=== PATIENT | male | born 1945 | race Caucasian/White ===

== ENCOUNTER 2016-10-07 09:54 | Emergency (ER) | payer BC, OTHER ==
[~2016-10-07] VITALS: Ht 162.6 cm; Wt 64.4 kg
[~2016-10-07 09:54] MED LIST: CALC667C PO; DIPH25CA37 PO; FINA5TAB4 PO; FLM4 PO; LPR25 PO; LSX40 PO; MULT-506 PO; PRT/40 PO
[2016-10-07 09:57] VITALS: TEMP 36.7; Ht 162.6 cm; Wt 64.4 kg
[2016-10-07 11:02] LABS: BASO % 0.2 %; BASO ABS # 0.01 K/uL (0-0.2); COMPLETE YES; EOS % 0.2 %; IG% 0.2 %; LYMPH % 10.5 %; MEAN CELL VOLUME 89.8 fL (80-100); MEAN CORPUSCULAR HEMOGLOBIN 30.3 pg (25-34); MEAN CORPUSCULAR HGB CONC 33.8 g/dl (32-36); MEAN PLATELET VOLUME 9.9 fL (7.4-10.4); MONO % 6.1 %; NEUT % 82.8 %; PLATELET COUNT 191 K/uL (130-400); RED BLOOD COUNT 4.12 M/uL (4.7-6.1); WHITE BLOOD COUNT 5.73 K/uL (4.8-10.8)
[2016-10-07] MEDS ORDERED: VITA1TAB4 PO (11:03)
[2016-10-07] MEDS ORDERED: [UNRECOGNIZED DRUG - OTHER] PO (11:04)
[2016-10-07] MEDS ORDERED: CALC1CAP36 PO (11:04)
[2016-10-07 11:10] LABS: URINE APPEARANCE CLOUDY (CLEAR); URINE BILIRUBIN NEG (NEG); URINE COLOR YELLOW; URINE NITRITE NEG (NEG); URINE PH 8.5 (4.5-7.5); URINE SPECIFIC GRAVITY 1.012 (1.000-1.030); UROBILINOGEN NEG (NEG)
[2016-10-07 11:22] LABS: MANUAL MICROSCOPIC REQUIRED? NO; REVIEW REQ? NO; SULFASALICYLIC ACID POS (NEG)
[2016-10-07 11:45] LABS: BUN/CREATININE RATIO 13.8 (10-20); CALCIUM 9.4 mg/dl (8.5-10.1); CREATININE 5.3 mg/dl (0.60-1.40); POTASSIUM 5.1 mmol/L (3.5-5.1)
[2016-10-07 11:52] VITALS: BP 143/85; PULSE 70; O2SAT 98
[2016-10-07] MEDS ORDERED: SULF800T23 PO (11:57)
--- NOTE | 2016-10-07 17:41 | EMERGENCY ROOM VISIT NOTE ---
History Report prepared by Ángela: Rebekah Villeda Under the Supervision of: Dr. Jerson Miller M.D. First contact with patient: 10:10 Chief Complaint: CATHETER REPLACEMENT Stated Complaint: CATHETER NEEDS REPLACED History of Present Illness The patient is a 71 year old male who presents to the Emergency Room with complaints of his catheter not draining. He reports that he has had a Gamboa catheter for 2 years because of prostate problems. The patient reports that 3 days ago he was starting to have problems with it. The patient made an appointment to have the catheter changed, but the doctor was on vacation. This morning, he went to the doctor's office, but the nurse was unable to flush out the catheter. The patient reports that he massaged the tube which drained it. The patient states that he has a nephrostomy that he is able to get drainage from. He says the output from that has been normal but he has had no output from the Gamboa. He reports that about a month ago, he encountered the same problem and that there were calcium deposits present. The patient denies fevers and vomiting. He has no abdominal pain other than some discomfort to his bladder. He had a bladder scan at the urologist office this morning and they said there was 800 mL of urine. Source of History: patient Onset: 3 days ago Position: other (global) Symptom Intensity: unable to drain Quality: other (catheter ) Associated Symptoms: No fevers, No vomiting Review of Systems See HPI for pertinent positives & negatives. A total of 10 systems reviewed and were otherwise negative. 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 (7) Urinary retention Family History Cancer Diabetes mellitus FH: COPD (chronic obstructive pulmonary disease) FHx: lung disease Social History Smoking Status: Current Every Day Smoker Drug Use: none Marital Status: Housing Status: lives with significant other Occupation Status: employed Current/Historical Medications Scheduled Calcitriol (Calcitriol), 0.25 MCG PO 3XWK Calcium Acetate (Phosphate Bin (Phoslo 667 Mg), 667 MG PO TIDM Metoprolol Tartrate (Lopressor), 25 MG PO BID Multivitamin (Multivitamin), 1 TAB PO DAILY Sodium Polystyrene Sulfonate (Sps), 60 ML PO DIRECTED Sulfa/Trimethoprim (Bactrim Ds 800MG/160MG), 1 TAB PO BID Tamsulosin HCl (Tamsulosin HCl), 0.4 MG PO QPM Vitamin E (Vitamin E), 400 MG PO DAILY Scheduled PRN Diphenhydramine Hcl (Benadryl), 25 MG PO DAILY PRN for Itching Allergies Coded Allergies: Pantoprazole (Unverified Allergy, Unknown, HIVES, 10/07/16) Physical Exam Vital Signs Date Time Temp Pulse Resp B/P (MAP) Pulse Ox O2 Delivery O2 Flow Rate FiO2 10/07/16 11:52 70 18 143/85 98 Room Air 10/07/16 09:57 36.7 79 17 196/106 96 Room Air Physical Exam Constitutional: Vital signs reviewed. Eyes: Pupils are equal round reactive to light. Conjunctiva are noninjected. ENT: Pharynx is clear without erythema or exudate. Mucous membranes are moist. Neck supple without meningeal signs. Respiratory: Clear to auscultation bilaterally. Breath sounds are equal bilaterally. Cardiovascular: Regular rate and rhythm. No rubs or gallops. GI: Nephrostomy tube on right side, no signs of infection or drainage from stoma , and Gamboa catheter in place without any drainage. Mild suprapubic distension with mild tenderness. Musculoskeletal: No peripheral edema. No lower extremity tenderness. Integumentary: No cyanosis. Neurological: The patient is awake and alert. No focal deficits. Psychiatric: Normal affect. Medical Decision & Procedures Laboratory Results 10/07/16 10:49 Red Blood Count 4.12, Mean Corpuscular Volume 89.8, Mean Corpuscular Hemoglobin 30.3, Mean Corpuscular Hemoglobin Concent 33.8, Mean Platelet Volume 9.9, Neutrophils (%) (Auto) 82.8, Lymphocytes (%) (Auto) 10.5, Monocytes (%) (Auto) 6.1, Eosinophils (%) (Auto) 0.2, Basophils (%) (Auto) 0.2, Neutrophils # (Auto) 4.75, Lymphocytes # (Auto) 0.60, Monocytes # (Auto) 0.35, Eosinophils # (Auto) 0.01, Basophils # (Auto) 0.01 10/07/16 10:49 Test 10/07/16 10:37 10/07/16 10:49 Urine Color YELLOW Urine Appearance CLOUDY (CLEAR) Urine pH 8.5 (4.5-7.5) Urine Specific Henderson 1.012 (1.000-1.030) Urine Protein 2+ (NEG) Urine Glucose (UA) NEG (NEG) Urine Ketones NEG (NEG) Urine Occult Blood 2+ (NEG) Urine Nitrite NEG (NEG) Urine Bilirubin NEG (NEG) Urine Urobilinogen NEG (NEG) Urine Leukocyte Esterase LARGE (NEG) Urine WBC (Auto) >30 /hpf (0-5) Urine RBC (Auto) 10-30 /hpf (0-4) Urine Hyaline Casts (Auto) 1-5 /lpf (0-5) Urine Epithelial Cells (Auto) 10-20 /lpf (0-5) Urine Bacteria (Auto) 2+ (NEG) White Blood Count 5.73 K/uL (4.8-10.8) Red Blood Count 4.12 M/uL (4.7-6.1) Hemoglobin 12.5 g/dL (14.0-18.0) Hematocrit 37.0 % (42-52) Mean Corpuscular Volume 89.8 fL (80-100) Mean Corpuscular Hemoglobin 30.3 pg (25-34) Mean Corpuscular Hemoglobin Concent 33.8 g/dl (32-36) Platelet Count 191 K/uL (130-400) Mean Platelet Volume 9.9 fL (7.4-10.4) Neutrophils (%) (Auto) 82.8 % Lymphocytes (%) (Auto) 10.5 % Monocytes (%) (Auto) 6.1 % Eosinophils (%) (Auto) 0.2 % Basophils (%) (Auto) 0.2 % Neutrophils # (Auto) 4.75 K/uL (1.4-6.5) Lymphocytes # (Auto) 0.60 K/uL (1.2-3.4) Monocytes # (Auto) 0.35 K/uL (0.11-0.59) Eosinophils # (Auto) 0.01 K/uL (0-0.5) Basophils # (Auto) 0.01 K/uL (0-0.2) RDW Standard Deviation 42.7 fL (36.4-46.3) RDW Coefficient of Variation 13.0 % (11.5-14.5) Immature Granulocyte % (Auto) 0.2 % Immature Granulocyte # (Auto) 0.01 K/uL (0.00-0.02) Anion Gap 5.0 mmol/L (3-11) Est Creatinine Clear Calc Drug Dose 10.4 ml/min Estimated GFR () 11.5 Estimated GFR (Non- 9.9 BUN/Creatinine Ratio 13.8 (10-20) Calcium Level 9.4 mg/dl (8.5-10.1) Laboratory results as reviewed by me. ED Course 1015: The patient was evaluated in room B10. A complete history and physical exam was performed. 1156: I discussed the test results with the patient. He says that his Creatinine being at 5.3 is baseline for him. 1210: Upon reevaluation, the patient appeared to have improvement of his symptoms. I discussed tonight's findings with him. He verbalized agreement of the treatment plan. He was discharged home. Medical Decision This is a 71-year-old male who presents with problems with his urinary output. Differential diagnosis includes Gamboa catheter obstruction, renal failure, UTI, dislodgment of Gamboa catheter, electrolyte abnormality. I did perform a limited focused review of portions of the patient's old chart on the electronic medical record. The patient has had no recent pertinent visits to this hospital. I did evaluate the patient as noted above. The patient has had no Gamboa output for several days. He went to his urologist office and the nurse was unable to flush it and so he was sent here. He has had output from his right nephrostomy tube. IV access was established. His Gamb[place] catheter was replaced. He drained over a liter of urine. I did order and personally review the patient's urinalysis as described above. A urine culture was sent. I did order and review the patient's blood work as noted in the electronic medical record. His creatinine is 5.3 which is at his baseline. I did discuss the test results with the patient. He is feeling much better at this time. I did recommend he follow up with his urologist. He does have an appointment in 3 days. He was discharged in good condition. Medication Reconcilliation Current Medication List: was personally reviewed by me Blood Pressure Screening Patient's blood pressure: Elevated blood pressure Impression Primary Impression: Gamboa catheter problem Additional Impressions: UTI (urinary tract infection) Chronic kidney disease Urinary retention Scribe Attestation The scribe's documentation has been prepared under my direct and personally reviewed by me in its entirety. I confirm that the note above accurately reflects all work, treatment, procedures, and medical decision making performed by me. Departure Information Dispostion Home / Self-Care Prescriptions Sulfa/Trimethoprim (Bactrim Ds 800MG/160MG) Tab 1 TAB PO BID, #14 TAB Prov: Jerson Miller M.D. 10/07/16 Referrals Thaddeus Vaughan (PCP) Forms HOME CARE DOCUMENTATION FORM, IMPORTANT VISIT INFORMATION Patient Instructions CAUTI Catheter Associated, Catheter Indwelling Urinary Dc, [facility] Additional Instructions You have been examined and treated today on an emergency basis only. This is not a substitute for, or an effort to provide, complete comprehensive medical care. It is impossible to recognize and treat all injuries or illnesses in a single emergency department visit. It is therefore important that you follow up closely with your urologist next week per your appointment. Return for worsening symptoms or if you develop fever, vomiting, abdominal pain or any other concerning symptoms. Problem Qualifiers Primary Impression: Gamb[place] catheter problem Encounter type: initial encounter Qualified Codes: T83.9XXA - Unspecified complication of genitourinary prosthetic device, implant and graft, initial encounter Additional Impressions: UTI (urinary tract infection) Urinary tract infection type: catheter-associated UTI Indwelling urinary catheter type: indwelling urethral catheter Encounter type: initial encounter Qualified Codes: T83.511A - Infection and inflammatory reaction due to indwelling urethral catheter, initial encounter; N39.0 - Urinary tract infection, site not specified Chronic kidney disease Chronic kidney disease stage: unspecified stage Qualified Codes: N18.9 - Chronic kidney disease, unspecified
== END 2016-10-07 12:28 | disposition home or self-care (01) ==
LOC: C.EDB 09:56
DX: T83.091A Other mechanical complication of indwelling urethral catheter, initial encounter (principal); X58.XXXA Exposure to other specified factors, initial encounter; N39.0 Urinary tract infection, site not specified; R33.9 Retention of urine, unspecified; N18.9 Chronic kidney disease, unspecified; D64.9 Anemia, unspecified; F17.200 Nicotine dependence, unspecified, uncomplicated; Z87.442 Personal history of urinary calculi; Z79.899 Other long term (current) drug therapy; Z88.8 Allergy status to other drugs, medicaments and biological substances; Z80.9 Family history of malignant neoplasm, unspecified; Z83.3 Family history of diabetes mellitus

== ENCOUNTER 2022-02-17 22:52 | Inpatient (IN) ==
[2022-02-17] MEDS ORDERED: ALBUT/IPRATROP 3MG/0.5MG NEB 3 ML VIAL INH STA (23:08)
[2022-02-17 23:32] LABS: Basophils # (auto) 0.04 K/uL (0-0.2); Basophils % (auto) 0.7 %; Hematocrit (blood only) 34.5 % (40.1-51.0); Hemoglobin 11.4 g/dl (14.0-18.0); Immature Granulocytes # (auto) 0.01 K/uL (0.00-0.02); Immature Granulocytes % (auto) 0.2 %; Lymphocytes # (auto) 0.45 K/uL (1.2-3.4); Mean Corpuscular Hemoglobin 33.3 pg (25.0-34.0); Mean Corpuscular Volume 100.9 fL (80.0-100.0); Mean Platelet Volume 10.2 fL (9.4-12.4); Monocytes # (auto) 0.47 K/uL (0.24-0.82); Monocytes % (auto) 8.4 %; Neutrophils # (auto) 4.63 K/uL (1.4-6.5); Neutrophils % (auto) 82.7 %; Platelet Count 159 K/uL (130-400); RDW Coefficient of Variation 14.8 % (11.5-14.5); RDW Standard Deviation 53.2 fL (36.4-46.3); Red Blood Count 3.42 M/uL (4.63-6.08)
--- NOTE | 2022-02-17 23:34 | Emergency Department Note ---
History of Present Illness General Chief complaint: Respiratory Problems Stated complaint: COUGH,DIFFICULTY BREATHING,POTASSIUM HIGH Time Seen by Provider: 02/17/22 23:00 History of Present Illness This 76-year-old on dialysis Monday presents to the ER complaining of increasing shortness of breath and missed dialysis today Location: Chest Quality: Hard to breathe Severity: Moderate Duration: Past day Timing: Started yesterday Context: Symptoms got worse and patient came in Modifying factors: better with rest; worse with activity No history of CHF. Patient denies chest pain, fevers, flulike illness. No problems with dialysis on Monday. He was told his potassium was high and was advised to take his potassium losing medication Home Medications Medication Instructions Recorded Confirmed Type calcium acetate(phosphat bind) 667 667 mg PO TIDM 03/02/18 02/18/22 History mg capsule cholecalciferol (vitamin D3) 50 2,000 unit PO DAILY 03/02/18 02/17/22 History mcg (2,000 unit) capsule (Vitamin D3) atenolol 50 mg tablet 50 mg PO HS 03/16/18 02/17/22 History amlodipine 5 mg tablet 5 mg PO QAM 02/17/22 02/17/22 History citalopram 10 mg tablet 10 mg PO HS 02/17/22 02/17/22 History cholecalciferol (vitamin D3) 50 50 mcg PO DAILY 02/18/22 02/18/22 History mcg (2,000 unit) tablet (Vitamin D3) epoetin beta, methoxy peg 100 100 mcg IV .SELECTED DATES 02/18/22 02/18/22 History mcg/0.3 mL injection syringe (Mircera) ferric pyrophosphate citrate 27.2 See Rx Instructions .Route .COMPLEX 02/18/22 02/18/22 History mg iron/5 mL soln for hemodialysate (Triferic) leuprolide (3 month) 22.5 mg (3 22.5 mg IM . EVERY 3 MONTHS 02/18/22 02/18/22 History month) intramuscular syringe kit (Lupron Depot) norflurane-pentafluoropropane 1 spray topical UD 02/18/22 02/18/22 History topical spray paricalcitol 2 mcg/mL intravenous See Rx Instructions .Route .COMPLEX 02/18/22 02/18/22 History solution (Zemplar) protein supplement See Rx Instructions .Route .COMPLEX 02/18/22 02/18/22 History Allergies Allergy/AdvReac Type Severity Reaction Status Date / Time pantoprazole Allergy Unknown HIVES Verified 02/18/22 01:43 Past Med/Surg History Medical History (Updated 02/18/22 @ 02:17 by Zofia Nobles PA-C) AV fistula left arm Bladder stones Chronic anemia Chronic indwelling [place] catheter CKD (chronic kidney disease), stage V DIALYSIS 3 X WEEK ELENA PALMA (//MON) VIA PERMA CATH HTN (hypertension) Was treated for hypertensive urgency at [facility] 11/2017 Hyperkalemia On a K restricted diet Obstruction of nephrostomy tube Admitted for this 11/2017 along with hypertensive urgency Permanent central venous catheter in place Prostate cancer Currently in remission. On Leupron injections. 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 Beliefs That Will Affect Care: None marital status: Current Living Situation: Spouse Feels Safe at Home: Yes Assistive Devices: Denture - Upper, Denture - Lower and Glasses Review of Systems A total of 10 systems reviewed and were otherwise negative Physical Exam Vital Signs Vital Signs - 24 hr 02/17/22 22:55 02/17/22 23:33 02/17/22 23:33 Temperature 36.6 C Temperature Source Temporal Artery Scan Pulse Rate 68 Respiratory Rate 20 Respiratory Effort / Characteristics Non-Labored Spontaneous Respiratory Depth Normal Blood Pressure 162/78 H Blood Pressure Mean 106 Pulse Oximetry 90 94 Oxygen Delivery Method Room Air Nebulizer Room Air Oxygen Flow Rate Sepsis Recent Fever Within 48 Hours No Sepsis New/Unexplained Change in Mental Status N/A Sepsis Action Taken by Nursing No Action Required 02/18/22 00:57 02/18/22 02:00 Temperature Temperature Source Pulse Rate 60 62 Respiratory Rate 18 20 Respiratory Effort / Characteristics Respiratory Depth Blood Pressure 129/66 153/77 H Blood Pressure Mean 87 102 Pulse Oximetry 97 98 Oxygen Delivery Method Nasal Cannula Nasal Cannula Oxygen Flow Rate 2 2 Sepsis Recent Fever Within 48 Hours Sepsis New/Unexplained Change in Mental Status Sepsis Action Taken by Nursing VITALS: Vitals are noted on the nurse's note and reviewed by myself. Vital signs low O2 sats and patient was placed on nasal cannula and this improved. GENERAL: Elderly male who is working to breathe, nondiaphoretic SKIN: The skin was without rashes, erythema, or bruising. There is no tenting of the skin. Capillary reflex less than 2 seconds. HEAD: Normocephalic atraumatic. EARS: External auditory canals clear, EYES: Pupils equal round and reactive to light and accommodation. Conjunctivae without injection, sclerae without icterus. Extraocular movements intact. NOSE: Patent, turbinates without inflammation or discharge. MOUTH: Mucous membranes moist. Pharynx without erythema or exudate. Uvula midline. Airway patent. Tongue does not deviate. NECK: Supple without nuchal rigidity. No lymphadenopathy. No thyromegaly. C ervical spine is nontender. No JVD. HEART: Regular rate and rhythm LUNGS: Diffuse inspiratory and end expiratory wheezes. No retractions or accessory muscle use. ABDOMEN: Positive bowel sounds x 4. Normal tympanic percussion. Soft, nontender, without masses or organomegaly. Otero sign negative. No guarding or rebound tenderness. No CVA tenderness MUSCULOSKELETAL: No muscle atrophy, erythema, noted. NEURO: Patient was alert and oriented to person place and time. Normal sensation to light and sharp touch. No focal neurological deficits. Course Administered Medications Discontinued Medications Albuterol (Albut/Ipratrop 3mg/0.5mg Neb 3 Ml Vial) 3 ml INH NOW STA Stop: 02/17/22 23:09 Last Admin: 02/17/22 23:15 Dose: 3 ml Documented By: FARHAD Medical Decision Making Medical Records Attestation: I reviewed the patient's medical records. Home Medications Current Medication List: was personally reviewed by me Laboratory Data Attestation: I reviewed the patient's lab results. Result diagrams: 02/17/22 23:17 02/17/22 23:17 Lab Results 02/17/22 02/17/22 02/17/22 Range/Units 23:17 23:17 23:17 WBC 5.60 (4.8-10.8) K/ul RBC 3.42 L (4.63-6.08) M/uL Hgb 11.4 L (14.0-18.0) g/dl Hct 34.5 L (40.1-51.0) % MCV 100.9 H (80.0-100.0) fL MCH 33.3 (25.0-34.0) pg MCHC 33.0 (32.0-36.0) g/dL RDW Std Deviation 53.2 H (36.4-46.3) fL RDW Coeff of Stayc 14.8 H (11.5-14.5) % Plt Count 159 (130-400) K/uL MPV 10.2 (9.4-12.4) fL Immature Gran % (Auto) 0.2 % Neut % (Auto) 82.7 % Lymph % (Auto) 8.0 % Ballard % (Auto) 8.4 % Eos % (Auto) 0.0 % Baso % (Auto) 0.7 % Neut # (Auto) 4.63 (1.4-6.5) K/uL Lymph # (Auto) 0.45 L (1.2-3.4) K/uL Ballard # (Auto) 0.47 (0.24-0.82) K/uL Eos # (Auto) 0.00 (0-0.50) K/uL Baso # (Auto) 0.04 (0-0.2) K/uL Immature Gran # (Auto) 0.01 (0.00-0.02) K/uL VBG pH (7.36-7.41) VBG pCO2 (38-50) mmHg VBG pO2 mmHg VBG HCO3 mmol/L VBG O2 Saturation % VBG Base Excess mEq/L Sodium 134 L (136-145) mmol/L Potassium 5.3 H (3.5-5.1) mmol/L Chloride 101 (98-107) mmol/L Carbon Dioxide 18 L (21-32) mmol/L Anion Gap 15 H (3-11) BUN 58 H (6-23) mg/dl Creatinine 8.34 H* (0.6-1.4) mg/dl Est Cr Clr Drug Dosing 6.1 ml/min Est GFR ( Amer) 6.4 ml/min Est GFR (Non-Af Amer) 5.5 ml/min BUN/Creatinine Ratio 7.0 L (10-20) Glucose 112 H (70-99(Fasting)) mg/dl Calcium 9.0 (8.5-10.1) mg/dl Magnesium 2.2 (1.7-2.4) mg/dl Total Bilirubin 0.4 (0.2-1.0) mg/dl AST 20 (13-39) U/L ALT 16 (7-52) U/L Alkaline Phosphatase 66 (34-104) U/L Troponin I High Sens 28.6 H (0-20) pg/ml B-Natriuretic Peptide (0-100) pg/ml Total Protein 7.2 (6.0-8.3) gm/dl Albumin 3.7 (3.4-5.0) gm/dl Globulin 3.5 (2.5-4.0) gm/dl Albumin/Globulin Ratio 1.1 (0.9-2) SARS-CoV-2, RNA, NAAT NEGATIVE (NEGATIVE) 02/17/22 02/17/22 02/17/22 Range/Units 23:17 23:58 23:59 WBC (4.8-10.8) K/ul RBC (4.63-6.08) M/uL Hgb (14.0-18.0) g/dl Hct (40.1-51.0) % MCV (80.0-100.0) fL MCH (25.0-34.0) pg MCHC (32.0-36.0) g/dL RDW Std Deviation (36.4-46.3) fL RDW Coeff of Stacy (11.5-14.5) % Plt Count (130-400) K/uL MPV (9.4-12.4) fL Immature Gran % (Auto) % Neut % (Auto) % Lymph % (Auto) % Ballard % (Auto) % Eos % (Auto) % Baso % (Auto) % Neut # (Auto) (1.4-6.5) K/uL Lymph # (Auto) (1.2-3.4) K/uL Ballard # (Auto) (0.24-0.82) K/uL Eos # (Auto) (0-0.50) K/uL Baso # (Auto) (0-0.2) K/uL Immature Gran # (Auto) (0.00-0.02) K/uL VBG pH 7.35 L (7.36-7.41) VBG pCO2 38 (38-50) mmHg VBG pO2 33 mmHg VBG HCO3 21 mmol/L VBG O2 Saturation < 60.0 % VBG Base Excess -4.2 mEq/L Sodium (136-145) mmol/L Potassium (3.5-5.1) mmol/L Chloride (98-107) mmol/L Carbon Dioxide (21-32) mmol/L Anion Gap (3-11) BUN (6-23) mg/dl Creatinine (0.6-1.4) mg/dl Est Cr Clr Drug Dosing ml/min Est GFR ( Amer) ml/min Est GFR (Non-Af Amer) ml/min BUN/Creatinine Ratio (10-20) Glucose (70-99(Fasting)) mg/dl Calcium (8.5-10.1) mg/dl Magnesium (1.7-2.4) mg/dl Total Bilirubin (0.2-1.0) mg/dl AST (13-39) U/L ALT (7-52) U/L Alkaline Phosphatase (34-104) U/L Troponin I High Sens 26.9 H (0-20) pg/ml B-Natriuretic Peptide 2935 H (0-100) pg/ml Total Protein (6.0-8.3) gm/dl Albumin (3.4-5.0) gm/dl Globulin (2.5-4.0) gm/dl Albumin/Globulin Ratio (0.9-2) SARS-CoV-2, RNA, NAAT (NEGATIVE) Imaging Data Attestation: I personally reviewed and interpreted this imaging study as follows: MDM Narrative Prior records/ancillary studies reviewed. Triage Nursing notes reviewed. Additional history obtained from the family. The patient's history was concerning for respiratory difficulties. Differential diagnosis: Etiologies such as infections, reactive airway disease, pneumonia, pneumothorax, COPD, CHF, cardiac ischemia, pulmonary embolism, musculoskeletal, gastrointestinal, as well as others were entertained. Physical examination: As above. ER treatment provided: An order was placed for continuous cardiac monitoring. The monitor shows a rate of 60-100 with a sinus rhythm. DuoNeb On reassessment the patient felt better. Diagnostic interpretation by me: The electrocardiogram was ordered for dyspnea EKG: Normal sinus, poor baseline, no acute ST-T wave changes. Impression normal sinus rhythm poor baseline interpreted by myself I think arrhythmia is unlikely. EKG shows normal sinus rhythm with no interval abnormalities such as QT prolongation or WPW. There are no findings to suggest Brugada syndrome. Cardiac monitoring in the emergency department reveals no tachycardic or bradycardic dysrhythmia. Hypertrophic cardiomyopathy was considered but there are no clear historical elements pointing toward this. EKG is not suggestive. The QRS voltage is not extremely large and there are no duong ggestive Q waves. The labs revealed elevated creatinine and patient is overdue for dialysis Imaging studies: Chest x-ray with pleural effusion per my interpretation. Patient: BEE GOLDBERG (Male) : 41 Status: ER Date: 02/18/22 01:53 Room #: History: PT. IS HAVING INCREASED SOB; DIFFICULTY BREATHING; COUGH WELL Slices: [phone] Priors: Tech: Anette Dunn @ [phone] Exams: CT CHEST Without Contrast Contrast: Accession Numbers: [id number] Referring Physician: REFERRED SELF Preliminary Findings Only See Final Report For Complete Findings CT CHEST Without Contrast: Comparison to April 25, 2014. There are mild to moderate emphysematous changes in the lungs bilaterally, greatest in the upper lobes. There is a 3 cm right pleural effusion with mild adjacent compressive atelectasis in the right liver lobe. No pneumothorax is seen. The thoracic aorta is mildly calcified but nondilated. This is a noncontrast study. The heart is mildly enlarged. Severe coronary calcification is present. No per icardial effusion is seen. Calcified granuloma in the right upper lobe and calcified right hilar lymph node. No mediastinal or axillary lymph at a the or mass is identified. Moderate multilevel degenerative changes are seen throughout the spine with ankylosis of the thoracic spine. No acute fracture is seen. Radiologist: Elliot Be MD Consultation: A consultation was placed with the hospitalist. The case was discussed and diagnostics were reviewed. The patient was evaluated in the ER for further treatment. This appears to be consistent with Right PE, COPD with fluid overload who is due for dialysis. Patient felt slightly better after being medicated as above. Medicine is consulted. He will be admitted. By the evaluation outlined above emergent etiologies such as pulmonary embolism, reactive airway disease, pneumonia, pneumothorax, musculoskeletal, serious bacterial infections, as well as others were deemed relatively unlikely. The pt informed about the findings as listed above. All questions were answered and pleased with the treatment. The chart was completed utilizing [employer] Speech voice recognition software. Grammatical errors, random word insertions, pronoun errors, and incomplete sentences are an occassional consequence of this system due to software limitations, ambient noise, and hardware issues. Any formal questions or concerns about the content, text, or information contained within the body of this dictation should be directly addressed to the physician web press operator assistant for clarification. Impression & Plan Pleural effusion, Acute dyspnea, Hypoxemia, ESRD (end stage renal disease) on dialysis, Anemia Discharge Plan Visit Data Chief Complaint: Respiratory Problems Stated Complaint: COUGH,DIFFICULTY BREATHING,POTASSIUM HIGH ED Provider: Jewels Peterson ED Midlevel Provider: Zofia Nobles Discharge Problem: Pleural effusion, Acute dyspnea, Hypoxemia, ESRD (end stage renal disease) on dialysis, Anemia Patient Disposition: Admitted As Inpatient Condition: Fair Forms Stand Alone Forms: [facility] Prescriptions Prescriptions: No Action calcium acetate(phosphat bind) 667 mg Capsule 667 mg PO TIDM cholecalciferol (vitamin D3) [Vitamin D3] 2,000 unit Capsule 2,000 unit PO DAILY atenolol 50 mg Tablet 50 mg PO HS citalopram 10 mg tablet 10 mg PO HS amlodipine 5 mg tablet 5 mg PO QAM paricalcitol [Zemplar] 2 mcg/mL Solution See Rx Instructions .ROUTE .COMPLEX Rx Instructions: 2.5 mcg intravenously 1st,2nd,3rd scheduled treatment Lupron Depot (3 month) 22.5 mg Syringe Kit 22.5 mg IM . EVERY 3 MONTHS cholecalciferol (vitamin D3) [Vitamin D3] 50 mcg (2,000 unit) Tablet 50 mcg PO DAILY Mircera 100 mcg/0.3 mL Syringe 100 mcg IV .SELECTED DATES Rx Instructions: IV PUSH MED Triferic 27.2 mg iron/5 mL Solution See Rx Instructions .ROUTE .COMPLEX Rx Instructions: given in Center 110mcg/lbc intravenous every treatment Liquacel Liquid See Rx Instructions .ROUTE .COMPLEX Rx Instructions: 1 ounce grape--give 30 cc orally weekly on 1st treatment 1 ounce peach jamil--give 30 cc orally weekly on 2nd scheduled treatment 1 ounce watermelon--give 30cc orally weekly on 3rd scheduled rreatment Pain Ease Aerosol,Ideal 1 spray topical UD Rx Instructions: done in Center spray 1st,2nd,3rd scheduled treatment Referrals Referrals: Edgar Gamble MD [Primary Care Provider] -
[2022-02-18] LABS: Troponin I High Sensitivity 28.6 pg/ml (0-20)
[2022-02-18 00:14] LABS: Base Excess VBG -4.2 mEq/L; HCO3 VBG 21 mmol/L; Oxygen Saturation VBG < 60.0 %; PCO2 VBG 38 mmHg (38-50); PO2 VBG 33 mmHg; pH VBG 7.35 (7.36-7.41)
[2022-02-18 00:26] LABS: Albumin Globulin Ratio 1.1 (0.9-2); Albumin Level 3.7 gm/dl (3.4-5.0); Bilirubin,Total 0.4 mg/dl (0.2-1.0); Creatinine Clr Calc Pharmacy 6.1 ml/min; Est GFR (African American) 6.4 ml/min; Est GFR (Non-African American) 5.5 ml/min; Globulin 3.5 gm/dl (2.5-4.0); Magnesium 2.2 mg/dl (1.7-2.4); Potassium 5.3 mmol/L (3.5-5.1); Total Protein 7.2 gm/dl (6.0-8.3)
[2022-02-18] MEDS ORDERED: POLYETHYLENE (MIRALAX) 17 GM PACK PO PRN (03:52)
[2022-02-18] MEDS ORDERED: ALBUT/IPRATROP 3MG/0.5MG NEB 3 ML VIAL NEB PRN (03:52)
[2022-02-18] MEDS ORDERED: ACETAMINOPHEN 325 MG TAB PO PRN (03:52)
[2022-02-18] MEDS ORDERED: NITROGLYCERIN SL 0.4 MG/TAB TAB SL PRN (03:52)
[2022-02-18] MEDS: DOXYCYCLINE HYCLATE 100 MG CAP PO SCH ×3 (04:23→21:19)
--- NOTE | 2022-02-18 04:45 | History and Physical Report ---
DATE OF ADMISSION: 02/18/2022 CHIEF COMPLAINT: Shortness of breath. HISTORY OF PRESENT ILLNESS: A 76-year-old male with past medical history significant for hypertension, end-stage renal disease on dialysis, history of right hydronephrosis, history of bladder stones, history of chronic anemia, ongoing tobacco use, smokes 2 packs of cigarettes in a week, history of prostate cancer, on Lupron shots. He has a percutaneous drain on the right flank. He drains Urine whenever we feel the pressure building up, usually every couple of days. He also micturates little..He missed his dialysis today because of bad weather.Lately his potassium was going up, so he was told to take medcine today to bring his potassium down. He had an episode of diarrhea. He comes in because of shortness of breath. The patient lives with his . As per daughter, he is having shortness of breath on and off since last summer, but last 1 week, it got progressively worse. The patient says since last 2 days, he has become more short of breath and coughing and bringing up whitish phlegm. Denies any fever or chills. No chest pain, no headache, no back pain, no leg pains. Vision is okay. Runny nose in the mornings. Somewhat hard of hearing. Appetite is down for the last 1 week because of family tragedy as per daughter. No difficulty swallowing. No nausea. No bloody stools or black stools. No swelling in the legs. Ambulates without any support. ALLERGIES: PROTONIX. PAST MEDICAL HISTORY: As mentioned above. PAST SURGICAL HISTORY: Right Kidney percutaneous drainage catheter, cystoscopy. MEDICATIONS: The patient is on amlodipine 5 mg p.o. a.m., atenolol 50 mg p.o. at bedtime, calcium acetate 667 mg p.o. t.i.d. with meals, vitamin D 2000 units p.o. daily, citalopram 10 mg p.o. at bedtime, Epoetin as directed, ferric pyrophosphate as directed, Lupron shots every 3 months, FAMILY HISTORY: Significant for father had stomach cancer. Sister has lung cancer. Sister has breast cancer. Sister has hypertension. Father had COPD. SOCIAL HISTORY: , lives with his . Smokes about three cigarettes a day. No alcohol, no drug use. REVIEW OF SYSTEMS: As per HPI. Rest of the review of systems is negative. PHYSICAL EXAMINATION: GENERAL: The patient is of moderate build, not in acute distress. VITAL SIGNS: Temperature 36.6, pulse 60, respiratory rate 18, blood pressure 129/66, oxygen 97% on 2 liters. HEENT: Pupils equal, round and reactive to light. Oral mucosa moist. NECK: No JVD, no neck masses. CARDIOVASCULAR: S1 and S2 heard. Regular rate and rhythm. No murmur, no gallop. RESPIRATORY SYSTEM: Normal AP diameter. Diminished bilateral breath sounds. No obvious wheezing or crackles heard. ABDOMEN: Soft, bowel sounds present, nontender, no distention. CENTRAL NERVOUS SYSTEM: Cranial nerves II-XII grossly intact, nonfocal. EXTREMITIES: No edema, no erythema. LABORATORY DATA: WBC 5.6, hemoglobin 11.4, hematocrit 34.5, platelets 159. Venous blood gas: pH is 7.35, pCO2 of 38. Sodium 134, potassium 5.3, chloride 101, bicarbonate 18, BUN 58, creatinine 8.3, serum glucose 112, calcium 9, magnesium 2.2, total bilirubin 0.4, AST 20, ALT 16, alkaline phosphatase 66. Troponin I high sensitivity 26.9. BNP 2900. SARS-CoV-2 rapid test negative. IMAGING DATA: Chest x-ray, possible mild right pleural effusion. EKG: Normal sinus rhythm at 64, left ventricular hypertrophy, nonspecific T- wave abnormalities. ASSESSMENT AND PLAN: This is a 76-year-old male who presents with shortness of breath. 1. Shortness of breath, ongoing for some time, but got progressively worse lately. Smokes three cigarettes a day. Has some cough with whitish phlegm. Chest x-ray, possible mild right pleural effusion, we will get a CT chest to get better picture. We will start him on nebs around the clock and p.r.n., p.o. doxycycline for possible bronchitis. We will also get echocardiogram to rule out for CHF. Missed dialysis today. We will get his dialysis in the morning, monitor in the hospital. 2. End-stage renal disease, on hemodialysis. Missed dialysis today, nephrology consult for possible dialysis in the a.m. 3. Hyperkalemia, he says he took the medicine today for that. His potassium is 5.3 here today, we will follow the repeat potassium in the a.m. Plan for dialysis in the a.m. 4. Mild elevation of troponin, mostly from renal disease. Follow serial enzymes and echocardiogram. 5. History of prostate cancer, on Lupron shots. 6. History of depression, citalopram. 7. History of hypertension, on atenolol and amlodipine, We will monitor the blood pressure. 8. Deep venous thrombosis prophylaxis: Heparin subcutaneously. DISPOSITION: Closely monitor in the med tele. PT/OT prior to discharge. Social service to help with discharge planning. Job ID: [id number] [facility] MEDICAL CENTERJuan Carlos
[2022-02-18 05:30] LABS: Basophils # (auto) 0.02 K/uL (0-0.2); Basophils % (auto) 0.5 %; Hematocrit (blood only) 32.4 % (40.1-51.0); Hemoglobin 10.5 g/dl (14.0-18.0); Immature Granulocytes # (auto) 0.01 K/uL (0.00-0.02); Immature Granulocytes % (auto) 0.3 %; Lymphocytes # (auto) 0.39 K/uL (1.2-3.4); Lymphocytes % (auto) 9.8 %; Mean Corpuscular Hemoglobin 33.2 pg (25.0-34.0); Mean Corpuscular Hgb Conc 32.4 g/dL (32.0-36.0); Mean Corpuscular Volume 102.5 fL (80.0-100.0); Mean Platelet Volume 10.2 fL (9.4-12.4); Monocytes # (auto) 0.29 K/uL (0.24-0.82); Monocytes % (auto) 7.3 %; Neutrophils # (auto) 3.29 K/uL (1.4-6.5); Neutrophils % (auto) 82.1 %; Platelet Count 145 K/uL (130-400); RDW Coefficient of Variation 14.8 % (11.5-14.5); RDW Standard Deviation 55.3 fL (36.4-46.3); Red Blood Count 3.16 M/uL (4.63-6.08)
[2022-02-18 05:36] LABS: Troponin I High Sensitivity 27.8 pg/ml (0-20)
[2022-02-18 05:54] LABS: BUN Creatinine Ratio 7.3 (10-20); Calcium 8.6 mg/dl (8.5-10.1); Est GFR (African American) 6.2 ml/min; Est GFR (Non-African American) 5.4 ml/min; Magnesium 2.2 mg/dl (1.7-2.4); Potassium 5.3 mmol/L (3.5-5.1)
[2022-02-18] MEDS: ALBUT/IPRATROP 3MG/0.5MG NEB 3 ML VIAL NEB SCH ×4 (07:01→19:58)
--- NOTE | 2022-02-18 08:11 | CT Scan Report ---
CT OF THE CHEST WITHOUT IV CONTRAST CLINICAL HISTORY: Shortness of breath, hx of smoking COMPARISON STUDY: Chest CT April 25, 2014 and chest radiograph February 17, 2022. CT DOSE: 194.02 mGy.cm TECHNIQUE: Axial images of the chest were obtained without IV contrast. Images were reviewed in the axial, sagittal, and coronal planes. IV contrast was not administered for this examination. Automat ed exposure control was utilized for the study. A dose lowering technique was utilized adhering to t he principles of ALARA. FINDINGS: A [id number] right pleural effusion is present. There is no pneumothorax. Clustered tree-in-bud nodules within the superior segment of the left lower lobe are present. Subpleural right lower lobe opacity favors atelectasis. Moderate emphysema is noted. There is evidence for a previous granulomatous process with calcified granulomas within the right upper lobe and calcified mediastina l and right hilar lymph nodes. A 4 mm perifissural right middle lobe nodule is unchanged since CT of June 23, 2014. This is benign. Note is made of moderate cardiomegaly and coronary artery calcificati on. Extensive anterior osteophytosis of the thoracic spine is noted. No pathologically enlarged thora cic lymph nodes are present. There are calcified cannula was within the spleen. IMPRESSION: 1. Small to moderate right pleural effusion. Subpleural right lower lobe opacity favors atelectasis. 2. Cluster tree-in-bud nodules within the superior segment of the left lower lobe which favor a mild infectious process such as bronchiolitis. 3. Emphysema. 4. Moderate cardiomegaly and coronary artery calcification. 5. No suspicious pulmonary nodules. ACT 112: Negative or not required by law. Electronically signed by: Harvey Johnson M.D. 02/18/2022 8:09 AM
[2022-02-18] MEDS: NEPHROCAPS PO SCH (08:26)
[2022-02-18] MEDS: CHOLECALCIFEROL 1,000 UNITS 25 MCG TAB PO SCH (08:26)
[2022-02-18] MEDS: CALCIUM ACETATE 667 MG CAP/TAB PO SCH ×3 (08:26→17:26)
[2022-02-18] MEDS: amLODIPine BESYLATE 5 MG TAB PO SCH (08:26)
[2022-02-18] MEDS: HEPARIN SOD 5,000 UNIT/0.5 ML VIAL SQ SCH ×2 (08:29→20:39)
--- NOTE | 2022-02-18 08:43 | XRay Report ---
XR chest 1V portable HISTORY: Dyspnea COMPARISON: Chest 12/09/2017. FINDINGS: No pneumothorax. Small right pleural effusion is noted. The heart is mildly enlarged. There is mild central pulmonary vascular congestion without overt edema. Hazy appearance to the right lung base may represent atelectasis from the pleural effusion. IMPRESSION: 1. Small right pleural effusion with hazy right basilar densities which may represent atelectasis fro m the pleural effusion or a pneumonia. 2. Cardiomegaly and mild congestive change. ACT 112: Negative or not required by law. Electronically signed by: Carlos Jean-Baptiste M.D. 02/18/2022 8:41 AM
[2022-02-18] MEDS ORDERED: EPOETIN ALFA 4,000 UNIT/ML VIAL IV ONE ×2 (09:05→11:00)
[2022-02-18] MEDS ORDERED: SODIUM CHLORIDE 0.9% 1000ML 1,000 ML IV PRN (09:05)
[2022-02-18] MEDS ORDERED: HEPARIN SOD (PORCINE) 1000 UNIT/ML IV ONE (09:05)
--- NOTE | 2022-02-18 09:13 | Nephrology Consultation ---
Date of Consultation February 18, 2022 Assessment & Plan (1) ESRD (end stage renal disease) on dialysis: HD today 3.5 hr on 2K bath using OP heparin (2K bolus then no mntnc) using AVF; goal 3L UF keeping SBP > 100 as tolerated next HD tomorrow as IP or OP (2) Anemia: on lupron >> but had CARLO this month; will give epo 4K units on tx IF SBOP< 180 consistently (he's been running above this) (3) Nephrostomy status: no reported issues (4) Hypoxia: on 2L and dyspneic, sats dropping if put on RA >> may all relate to volume; defer to primary service for monitoring and further w/u History of Present Illness Reason for Consultation: ESRD on HD, missed [place] Requesting Physician: Dr Abebe Attending Physician: Artemio Moore MD History of Present Illness 76 y/o M whom I'm asked to see for dialysis needs was admitted overnight w/ progressive dyspnea. PMH includes ESRD on TRS HD at [place] under Dr Ramos's care, HTN, R hydronephrosis w/ nephrostomy and bladder stones, active tobacco abuse (1 Pack every 4 days), prostate CA on lupron. he also has chronic dyspnea which worsened in the past week w/ increasing productive cough. He missed 02/17 HD d/t bad weather. He also endorses some pscyhosocial stres sors > being asked to be POA for 25 y/o nephew who just had a stroke; pt not comfortable/able to meet this request. Denies current worsening sob or chest pain or DUNLAP or focal weakness/numbness; states his cough worsened about a week ago and is actually better than it was and is only occasional productive of whitish sputum. No changes in or concern about nephrostomy output. Allergies Allergy/AdvReac Type Severity Reaction Status Date / Time pantoprazole Allergy Unknown HIVES Verified 02/18/22 01:43 Home Medications Medication Instructions Recorded Confirmed Type calcium acetate(phosphat bind) 667 667 mg PO TIDM 03/02/18 02/18/22 History mg capsule cholecalciferol (vitamin D3) 50 2,000 unit PO DAILY 03/02/18 02/17/22 History mcg (2,000 unit) capsule (Vitamin D3) atenolol 50 mg tablet 50 mg PO HS 03/16/18 02/17/22 History amlodipine 5 mg tablet 5 mg PO QAM 02/17/22 02/17/22 History citalopram 10 mg tablet 10 mg PO HS 02/17/22 02/17/22 History cholecalciferol (vitamin D3) 50 50 mcg PO DAILY 02/18/22 02/18/22 History mcg (2,000 unit) tablet (Vitamin D3) epoetin beta, methoxy peg 100 100 mcg IV .SELECTED DATES 02/18/22 02/18/22 History mcg/0.3 mL injection syringe (Mircera) ferric pyrophosphate citrate 27.2 See Rx Instructions .Route .COMPLEX 02/18/22 02/18/22 History mg iron/5 mL soln for hemodialysate (Triferic) leuprolide (3 month) 22.5 mg (3 22.5 mg IM . EVERY 3 MONTHS 02/18/22 02/18/22 History month) intramuscular syringe kit (Lupron Depot) norflurane-pentafluoropropane 1 spray topical UD 02/18/22 02/18/22 History topical spray paricalcitol 2 mcg/mL intravenous See Rx Instructions .Route .COMPLEX 02/18/22 02/18/22 History solution (Zemplar) protein supplement See Rx Instructions .Route .COMPLEX 02/18/22 02/18/22 History Patient History Medical History (Updated 02/18/22 @ 11:25 by Emilee Souza MD, PhD) AV fistula left arm Bladder stones Chronic anemia Chronic indwelling [place] catheter CKD (chronic kidney disease), stage V DIALYSIS 3 X WEEK ELENA PALMA (//MON) VIA PERMA CATH HTN (hypertension) Was treated for hypertensive urgency at [facility] 11/2017 Hyperkalemia On a K restricted diet Obstruction of nephrostomy tube Admitted for this 11/2017 along with hypertensive urgency Permanent central venous catheter in place Prostate cancer Currently in remission. On Leupron injections. Tobacco use Urinary retention Surgical History History of surgery PLACEMENT OF NEPHROSTOMY TUBE Family History Other Breast cancer Lung cancer No pertinent family history Stomach cancer Social History Smoking Status: Never smoker Cigarettes Per Day: 2 packs a week; Second Hand Exposure: No; Hx Alcohol Use: No Hx Substance Use: No Preferred Language: Malay Communication Ability: Effective Visual Impairment: No Limitations Wearing Apparel Folder Required: No Beliefs That Will Affect Care: None marital status: Current Living Situation: Spouse Other Information That Helps Us Care for You: No Feels Safe at Home: Yes Safety Concerns: Feels Safe At This Time Assistive Devices: Denture - Upper, Denture - Lower and Glasses Review of Systems Review of Systems: All systems reviewed & are unremarkable except as noted in Subjective Physical Exam Constitutional: well developed, well nourished, average body habitus and cooperative; no acute distress Eyes: EOM intact bilaterally ENMT: Ears: no external ear abnormality Nose: no external nose abnormality Mouth: + dry oral mucous membranes Neck: no nuchal rigidity Respiratory: + labored breathing (slight, carri w/ speech), + cough (frequent dry), able to speak in complete sentences (but dypsneic w/ doing so) and + paradoxical thoraco-abdominal movement Auscultation: + diminished lung sounds Cardiovascular: Rate/Rhythm: regular rate and regular rhythm Extremities: + AV fistula; no edema Gastrointestinal (Abdomen): Inspection/Auscultation: normal bowel sounds Percussion/Palpation: abdomen soft; abdomen nontender Musculoskeletal: Extremities: strength 5/5 throughout Skin: no rashes, warm and dry Neurologic: uribe, fluent speech, no tremor Genitourinary: R nephrostomy present Results & Data ([facility]) Vital Signs (Past 12 Hours) Vital Signs Temp Pulse Pulse Resp BP BP Pulse Ox 02/18/22 09:00 66 26 H 176/78 H 96 02/18/22 08:00 66 24 158/68 H 96 02/18/22 08:00 158/68 H 02/18/22 07:00 59 L 20 169/82 H 99 02/18/22 06:00 58 L 22 162/81 H 100 02/18/22 05:00 59 L 22 156/77 H 98 02/18/22 04:00 60 20 151/78 H 97 02/18/22 03:00 62 22 145/72 H 99 02/18/22 03:00 62 22 145/72 H 99 02/18/22 03:54 02/18/22 02:00 62 20 153/77 H 98 02/18/22 00:57 60 18 129/66 97 02/17/22 23:33 94 02/17/22 23:33 02/17/22 22:55 36.6 C 68 20 162/78 H 90 Pulse Ox O2 Del Method O2 Del Method O2 Flow Rate O2 Flow Rate 02/18/22 09:00 Nasal Cannula 2 02/18/22 08:00 Nasal Cannula 2 02/18/22 08:00 02/18/22 07:00 02/18/22 06:00 Nasal Cannula 2 02/18/22 05:00 02/18/22 04:00 02/18/22 03:00 02/18/22 03:00 Nasal Cannula 2 02/18/22 03:54 97 Nasal Cannula 2 02/18/22 02:00 Nasal Cannula 2 02/18/22 00:57 Nasal Cannula 2 02/17/22 23:33 Room Air 02/17/22 23:33 Nebulizer 02/17/22 22:55 Room Air Laboratory Results 02/18/22 04:49 02/18/22 04:49 Diagnostic Findings CXR, chest CT reviewed
[2022-02-18] MEDS ORDERED: EPOETIN ALFA 4,000 UNITS in SYRINGE 0 ML IV STA (10:45)
[2022-02-18] MEDS: HEPARIN SOD (PORCINE) 1000 UNIT/ML IV SCH ×2 (13:14→13:15)
--- NOTE | 2022-02-18 14:46 | Communication Note ---
Date of Service: February 18, 2022 Patient seen and examined at the emergency department Is comfortably sitting up on the bed; not in distress. He endorses cough with clear mucus. Denies any shortness of breath, chest pain or fever. On examination Alert oriented x3 Chestbilateral occasional wheeze heard CVSS1-S2, no murmur Abdomensoft nontender Extremitiesfistula in left arm; bruit present. Wean off oxygen as tolerated. Patient to undergo hemodialysis today as per nephrology Continue on [id number] duo nebs, doxycycline for bronchitis. Wean off oxygen as tolerated.
[2022-02-18] MEDS: cefTRIAXone SODIUM 1,000 MG in DEXTROSE 5% AD-VAN 50 ML IV SCH (16:32)
[2022-02-18] MEDS: ATENOLOL 50 MG TABLET PO SCH (20:38)
[2022-02-18] MEDS: CITALOPRAM 20 MG TAB PO SCH (20:39)
[2022-02-19 06:41] LABS: Basophils # (auto) 0.02 K/uL (0-0.2); Basophils % (auto) 0.5 %; Eosinophils # (auto) 0.01 K/uL (0-0.50); Eosinophils % (auto) 0.3 %; Hematocrit (blood only) 31.7 % (40.1-51.0); Hemoglobin 10.5 g/dl (14.0-18.0); Immature Granulocytes # (auto) 0.01 K/uL (0.00-0.02); Immature Granulocytes % (auto) 0.3 %; Lymphocytes # (auto) 0.57 K/uL (1.2-3.4); Lymphocytes % (auto) 14.4 %; Mean Corpuscular Hemoglobin 32.7 pg (25.0-34.0); Mean Corpuscular Hgb Conc 33.1 g/dL (32.0-36.0); Mean Corpuscular Volume 98.8 fL (80.0-100.0); Mean Platelet Volume 10.5 fL (9.4-12.4); Monocytes # (auto) 0.43 K/uL (0.24-0.82); Monocytes % (auto) 10.9 %; Neutrophils # (auto) 2.92 K/uL (1.4-6.5); Neutrophils % (auto) 73.6 %; Platelet Count 146 K/uL (130-400); RDW Coefficient of Variation 14.6 % (11.5-14.5); RDW Standard Deviation 52.7 fL (36.4-46.3); Red Blood Count 3.21 M/uL (4.63-6.08); White Blood Count 3.96 K/ul (4.8-10.8)
--- NOTE | 2022-02-19 06:44 | Electrocardiogram Report ---
Test Reason : Blood Pressure : / mmHG Vent. Rate : 064 BPM Atrial Rate : 064 BPM P-R Int : 150 ms QRS Dur : 082 ms QT Int : 474 ms P-R-T Axes : 053 -12 070 degrees QTc Int : 489 ms Poor data quality, interpretation may be adversely affected Normal sinus rhythm Left ventricular hypertrophy with repolarization abnormality Prolonged QT Abnormal ECG When compared with ECG of 10-DEC-2017 06:47, Nonspecific T wave abnormality now evident in Lateral leads Confirmed by Alex Ghotra ([id number]) on 02/19/2022 6:43:44 AM Referred By: REFERRED SELF Confirmed By:Alex Ghotra
[2022-02-19] MEDS ORDERED: SODIUM CHLORIDE 0.9% 1000ML 1,000 ML IV PRN (07:00)
[2022-02-19] MEDS ORDERED: HEPARIN SOD (PORCINE) 1000 UNIT/ML IV ONE (07:00)
[2022-02-19 07:07] LABS: Albumin Globulin Ratio 1.1 (0.9-2); Albumin Level 3.4 gm/dl (3.4-5.0); BUN Creatinine Ratio 6.1 (10-20); Bilirubin,Total 0.4 mg/dl (0.2-1.0); Calcium 8.3 mg/dl (8.5-10.1); Creatinine Clr Calc Pharmacy 9.2 ml/min; Est GFR (African American) 10.5 ml/min; Est GFR (Non-African American) 9.1 ml/min; Globulin 3.2 gm/dl (2.5-4.0); Potassium 3.8 mmol/L (3.5-5.1); Total Protein 6.6 gm/dl (6.0-8.3)
[2022-02-19] MEDS: ALBUT/IPRATROP 3MG/0.5MG NEB 3 ML VIAL NEB SCH ×4 (07:31→19:46)
[2022-02-19] MEDS: CALCIUM ACETATE 667 MG CAP/TAB PO SCH ×3 (08:54→17:07)
[2022-02-19] MEDS: HEPARIN SOD 5,000 UNIT/0.5 ML VIAL SQ SCH ×2 (08:54→20:44)
[2022-02-19] MEDS: DOXYCYCLINE HYCLATE 100 MG CAP PO SCH ×2 (08:54→20:44)
[2022-02-19] MEDS: NEPHROCAPS PO SCH (08:54)
[2022-02-19] MEDS: amLODIPine BESYLATE 5 MG TAB PO SCH (08:54)
[2022-02-19] MEDS: CHOLECALCIFEROL 1,000 UNITS 25 MCG TAB PO SCH (08:55)
--- NOTE | 2022-02-19 13:39 | Hospitalist Progress Note ---
Date of Service February 19, 2022 Assessment & Plan (1) Acute dyspnea: (2) Atypical pneumonia: Plan: Patient presents from home with shortness of breath Also has cough with whitish phlegm CT chest shows a small to moderate right pleural effusion. Clustered tree-in- bud nodules within superior segment of left lower lobe. Emphysema. Febrile to 38.8 C yesterday after dialysis. Vital stable. Oxygen requirement improved to room air. Plan; Continue [id number] duo nebs, ceftriaxone/doxycycline. - Plan to provide total of 5 to 7-day of antibiotic. Follow-up on blood culture (3) ESRD (end stage renal disease) on dialysis: Plan: Missed dialysis session. Was dialyzed on 02/18 and 02/19. We will follow-up on CMP. (4) Demand ischemia: Plan: High-sensitivity troponin in 20s without no significant delta gap No complaint of chest pain Echo shows EF of 55 to 60%. Moderate to severe tricuspid regurgitation. No wall motion abnormalities. Plan Chronic conditions: 5. History of prostate cancer, on Lupron shots. 6. History of depression, citalopram. 7. History of hypertension, on atenolol and amlodipine, 8. Deep venous thrombosis prophylaxis: Heparin subcutaneously. Admission and Anticipated Discharge Date Admission Date: February 18, 2022 Subjective Patient seen and examined after hemodialysis. He reports that he is feeling much better compared to yesterday. Reports some occasional cough but no shortness of breath. He is saturating well in room air. Review of Systems Review of Systems: All systems reviewed & are unremarkable except as noted in Subjective Physical Exam Physical Exam: Constitutional: WD/WN, vitals as above, NAD, sitting up in bed, pleasant, conversing easily Respiratory: Bilateral vesicular breath sounds; occasional crackles. Cardiovascular: RRR, no murmur, no edema Vessels: no JVD or carotid bruit Chest: normal inspection of chest Abdomen: normal bowel sounds, soft, nontender, no hepatosplenomegaly Musculoskeletal: Fistula present in left arm; overlying bandages present. Skin: no rashes, warm and dry normal turgor Neurologic: PERRL, EOMI, accommodation nl, no face palsy, no dysarthria CN's II- XI intact bilaterally and moves all extremities Psychiatric: A+Ox3, euthymic affect Lymphatic: no cervical or axillary lymphadenopathy : deferred Results & Data Results & Data ([facility]) Vital Signs (Past 12 Hours) Vital Signs Temp Pulse Pulse Pulse Resp BP BP 02/19/22 12:30 64 110/71 02/19/22 12:00 63 101/59 L 02/19/22 11:30 64 98/60 L 02/19/22 11:00 64 105/62 02/19/22 10:30 64 121/64 02/19/22 08:30 02/19/22 10:00 67 103/59 L 02/19/22 09:30 69 98/54 L 02/19/22 09:12 66 88/52 L 02/19/22 09:06 36.8 C 70 02/19/22 08:26 37.0 C 68 18 125/68 02/19/22 07:35 60 02/19/22 07:31 64 16 02/19/22 05:40 126/63 02/19/22 05:23 37.1 C 65 20 92/61 L Pulse Ox O2 Del Method 02/19/22 12:30 02/19/22 12:00 02/19/22 11:30 02/19/22 11:00 02/19/22 10:30 02/19/22 08:30 Room Air 02/19/22 10:00 02/19/22 09:30 02/19/22 09:12 02/19/22 09:06 02/19/22 08:26 90 Room Air 02/19/22 07:35 02/19/22 07:31 90 Room Air 02/19/22 05:40 02/19/22 05:23 90 Room Air Laboratory Results Laboratory Results WBC 3.96 K/ul (4.8-10.8) L 02/19/22 05:50 RBC 3.21 M/uL (4.63-6.08) L 02/19/22 05:50 Hgb 10.5 g/dl (14.0-18.0) L 02/19/22 05:50 Hct 31.7 % (40.1-51.0) L 02/19/22 05:50 MCV 98.8 fL (80.0-100.0) 02/19/22 05:50 MCH 32.7 pg (25.0-34.0) 02/19/22 05:50 MCHC 33.1 g/dL (32.0-36.0) 02/19/22 05:50 RDW Std Deviation 52.7 fL (36.4-46.3) H 02/19/22 05:50 RDW Coeff of Stacy 14.6 % (11.5-14.5) H 02/19/22 05:50 Plt Count 146 K/uL (130-400) 02/19/22 05:50 MPV 10.5 fL (9.4-12.4) 02/19/22 05:50 Immature Gran % (Auto) 0.3 % 02/19/22 05:50 Neut % (Auto) 73.6 % 02/19/22 05:50 Lymph % (Auto) 14.4 % 02/19/22 05:50 Greenlee % (Auto) 10.9 % 02/19/22 05:50 Eos % (Auto) 0.3 % 02/19/22 05:50 Baso % (Auto) 0.5 % 02/19/22 05:50 Neut # (Auto) 2.92 K/uL (1.4-6.5) 02/19/22 05:50 Lymph # (Auto) 0.57 K/uL (1.2-3.4) L 02/19/22 05:50 Greenlee # (Auto) 0.43 K/uL (0.24-0.82) 02/19/22 05:50 Eos # (Auto) 0.01 K/uL (0-0.50) 02/19/22 05:50 Baso # (Auto) 0.02 K/uL (0-0.2) 02/19/22 05:50 Immature Gran # (Auto) 0.01 K/uL (0.00-0.02) 02/19/22 05:50 VBG pH 7.35 (7.36-7.41) L 02/17/22 23:58 VBG pCO2 38 mmHg (38-50) 02/17/22 23:58 VBG pO2 33 mmHg 02/17/22 23:58 VBG HCO3 21 mmol/L 02/17/22 23:58 VBG O2 Saturation < 60.0 % 02/17/22 23:58 VBG Base Excess -4.2 mEq/L 02/17/22 23:58 Sodium 135 mmol/L (136-145) L 02/19/22 05:50 Potassium 3.8 mmol/L (3.5-5.1) D 02/19/22 05:50 Chloride 98 mmol/L (98-107) 02/19/22 05:50 Carbon Dioxide 26 mmol/L (21-32) 02/19/22 05:50 Anion Gap 11 (3-11) 02/19/22 05:50 BUN 34 mg/dl (6-23) H D 02/19/22 05:50 Creatinine 5.53 mg/dl (0.6-1.4) H* D 02/19/22 05:50 Est Cr Clr Drug Dosing 9.2 ml/min 02/19/22 05:50 Est GFR ( Amer) 10.5 ml/min 02/19/22 05:50 Est GFR (Non-Af Amer) 9.1 ml/min 02/19/22 05:50 BUN/Creatinine Ratio 6.1 (10-20) L 02/19/22 05:50 Glucose 99 mg/dl (70-99(Fasting)) 02/19/22 05:50 Calcium 8.3 mg/dl (8.5-10.1) L 02/19/22 05:50 Magnesium 2.2 mg/dl (1.7-2.4) 02/18/22 04:49 Total Bilirubin 0.4 mg/dl (0.2-1.0) 02/19/22 05:50 AST 22 U/L (13-39) 02/19/22 05:50 ALT 15 U/L (7-52) 02/19/22 05:50 Alkaline Phosphatase 54 U/L (34-104) 02/19/22 05:50 Troponin I High Sens 29.5 pg/ml (0-20) H 02/18/22 10:53 B-Natriuretic Peptide 2935 pg/ml (0-100) H 02/17/22 23:17 Total Protein 6.6 gm/dl (6.0-8.3) 02/19/22 05:50 Albumin 3.4 gm/dl (3.4-5.0) 02/19/22 05:50 Globulin 3.2 gm/dl (2.5-4.0) 02/19/22 05:50 Albumin/Globulin Ratio 1.1 (0.9-2) 02/19/22 05:50 SARS-CoV-2, RNA, NAAT NEGATIVE (NEGATIVE) 02/17/22 23:17 Impressions Chest X-Ray 02/17/22 23:08 XR chest 1V portable HISTORY: Dyspnea COMPARISON: Chest 12/09/2017. FINDINGS: No pneumothorax. Small right pleural effusion is noted. The heart is mildly enlarged. There is mild central pulmonary vascular congestion without overt edema. Hazy appearance to the right lung base may represent atelectasis from the pleural effusion. IMPRESSION: 1. Small right pleural effusion with hazy right basilar densities which may represent atelectasis from the pleural effusion or a pneumonia. 2. Cardiomegaly and mild congestive change. ACT 112: Negative or not required by law. Electronically signed by: Carlos Jean-Baptiste M.D. 02/18/2022 8:[address] 02/18/22 01:24 CT OF THE CHEST WITHOUT IV CONTRAST CLINICAL HISTORY: Shortness of breath, hx of smoking COMPARISON STUDY: Chest CT April 25, 2014 and chest radiograph February 17, 2022. CT DOSE: 194.02 mGy.cm TECHNIQUE: Axial images of the chest were obtained without IV contrast. Images were reviewed in the axial, sagittal, and coronal planes. IV contrast was not administered for this examination. Automated exposure control was utilized for the study. A dose lowering technique was utilized adhering to the principles of ALARA. FINDINGS: A jmago-ea-odoynmuk right pleural effusion is present. There is no pneumothorax. Clustered tree-in-bud nodules within the superior segment of the left lower lobe are present. Subpleural right lower lobe opacity favors atelectasis. Moderate emphysema is noted. There is evidence for a previous granulomatous process with calcified granulomas within the right upper lobe and calcified mediastinal and right hilar lymph nodes. A 4 mm perifissural right middle lobe nodule is unchanged since CT of June 23, 2014. This is benign. Note is made of moderate cardiomegaly and coronary artery calcification. Extensive anterior osteophytosis of the thoracic spine is noted. No pathologically enlarged thoracic lymph nodes are present. There are calcified cannula was within the spleen. IMPRESSION: 1. Small to moderate right pleural effusion. Subpleural right lower lobe opacity favors atelectasis. 2. Cluster tree-in-bud nodules within the superior segment of the left lower lobe which favor a mild infectious process such as bronchiolitis. 3. Emphysema. 4. Moderate cardiomegaly and coronary artery calcification. 5. No suspicious pulmonary nodules. ACT 112: Negative or not required by law. Electronically signed by: Harvey Johnson M.D. 02/18/2022 8:09 AM
[2022-02-19] MEDS: cefTRIAXone SODIUM 1,000 MG in DEXTROSE 5% AD-VAN 50 ML IV SCH (14:50)
--- NOTE | 2022-02-19 18:40 | Nephrology Progress Note ---
Date of Service February 19, 2022 Assessment & Plan (1) ESRD (end stage renal disease) on dialysis: Plan: HD done both 02/18 and 02/19 and well tolerated. had been off of oxygen when I saw him though see he's back on it this evening. will follow peripherallly next HD 02/22 or as needs dictate (2) Anemia: Plan: on lupron >> but had CARLO this month; will give epo 4K units on tx IF SBOP< 180 consistently (he's been running above this) (3) Nephrostomy status: Plan: no reported issues (4) Hypoxia: Plan: on 2L and dyspneic, sats dropping if put on RA >> may all relate to volume; defer to primary service for monitoring and further w/u Admission and Anticipated Discharge Date Admission Date: February 18, 2022 Subjective febrile ON; was weak/ mild vision changes post HD yesterday; tolerated today's tx better; seen at about 1400 Review of Systems Review of Systems: All systems reviewed & are unremarkable except as noted in Subjective Physical Exam Constitutional: well developed, well nourished, average body habitus and cooperative; no acute distress Eyes: EOM intact bilaterally ENMT: Ears: no external ear abnormality Nose: no external nose abnormality Mouth: + dry oral mucous membranes Neck: no nuchal rigidity Respiratory: + labored breathing (slight, carri w/ speech), + cough (frequent dry), able to speak in complete sentences (but dypsneic w/ doing so) and + paradoxical thoraco-abdominal movement Auscultation: + diminished lung sounds Cardiovascular: Rate/Rhythm: regular rate and regular rhythm Extremities: + AV fistula; no edema Gastrointestinal (Abdomen): Inspection/Auscultation: normal bowel sounds Percussion/Palpation: abdomen soft; abdomen nontender Musculoskeletal: Extremities: strength 5/5 throughout Skin: no rashes, warm and dry Results & Data ([facility]) Vital Signs (Past 12 Hours) Vital Signs Temp Pulse Pulse Pulse Resp BP BP 02/19/22 17:02 75 02/19/22 16:16 37.1 C 92 H 18 02/19/22 15:05 70 18 02/19/22 13:20 36.5 C 64 132/68 02/19/22 12:30 64 110/71 02/19/22 12:00 63 101/59 L 02/19/22 11:30 64 98/60 L 02/19/22 11:00 64 105/62 02/19/22 10:30 64 121/64 02/19/22 08:30 02/19/22 10:00 67 103/59 L 02/19/22 09:30 69 98/54 L 02/19/22 09:12 66 88/52 L 02/19/22 09:06 36.8 C 70 02/19/22 08:26 37.0 C 68 18 125/68 02/19/22 07:35 60 02/19/22 07:31 64 16 Pulse Ox O2 Del Method O2 Flow Rate 02/19/22 17:02 02/19/22 16:16 94 Nasal Cannula 3 02/19/22 15:05 90 Room Air 02/19/22 13:20 02/19/22 12:30 02/19/22 12:00 02/19/22 11:30 02/19/22 11:00 02/19/22 10:30 02/19/22 08:30 Room Air 02/19/22 10:00 02/19/22 09:30 02/19/22 09:12 02/19/22 09:06 02/19/22 08:26 90 Room Air 02/19/22 07:35 02/19/22 07:31 90 Room Air Laboratory Results 02/19/22 05:50 02/19/22 05:50
[2022-02-19] MEDS: ATENOLOL 50 MG TABLET PO SCH (20:44)
[2022-02-19] MEDS: CITALOPRAM 20 MG TAB PO SCH (20:44)
[2022-02-20 06:32] LABS: Basophils # (auto) 0.02 K/uL (0-0.2); Basophils % (auto) 0.5 %; Eosinophils # (auto) 0.04 K/uL (0-0.50); Hematocrit (blood only) 36.6 % (40.1-51.0); Immature Granulocytes # (auto) 0.01 K/uL (0.00-0.02); Immature Granulocytes % (auto) 0.2 %; Lymphocytes # (auto) 0.82 K/uL (1.2-3.4); Lymphocytes % (auto) 19.9 %; Mean Corpuscular Hemoglobin 32.9 pg (25.0-34.0); Mean Corpuscular Hgb Conc 32.8 g/dL (32.0-36.0); Mean Corpuscular Volume 100.3 fL (80.0-100.0); Mean Platelet Volume 10.2 fL (9.4-12.4); Monocytes # (auto) 0.53 K/uL (0.24-0.82); Monocytes % (auto) 12.9 %; Neutrophils % (auto) 65.5 %; Platelet Count 148 K/uL (130-400); RDW Coefficient of Variation 14.6 % (11.5-14.5); RDW Standard Deviation 52.9 fL (36.4-46.3); Red Blood Count 3.65 M/uL (4.63-6.08); White Blood Count 4.12 K/ul (4.8-10.8)
[2022-02-20 06:55] LABS: Albumin Level 3.6 gm/dl (3.4-5.0); BUN Creatinine Ratio 4.1 (10-20); Bilirubin,Total 0.4 mg/dl (0.2-1.0); Calcium 8.4 mg/dl (8.5-10.1); Creatinine Clr Calc Pharmacy 10.9 ml/min; Est GFR (Non-African American) 11.2 ml/min; Globulin 3.5 gm/dl (2.5-4.0); Potassium 4.4 mmol/L (3.5-5.1); Total Protein 7.1 gm/dl (6.0-8.3)
[2022-02-20] MEDS: ALBUT/IPRATROP 3MG/0.5MG NEB 3 ML VIAL NEB SCH ×4 (07:41→18:19)
[2022-02-20] MEDS: CALCIUM ACETATE 667 MG CAP/TAB PO SCH ×3 (08:22→16:56)
[2022-02-20] MEDS: amLODIPine BESYLATE 5 MG TAB PO SCH (08:22)
[2022-02-20] MEDS: HEPARIN SOD 5,000 UNIT/0.5 ML VIAL SQ SCH ×2 (08:23→20:18)
[2022-02-20] MEDS: NEPHROCAPS PO SCH (08:23)
[2022-02-20] MEDS: DOXYCYCLINE HYCLATE 100 MG CAP PO SCH ×2 (08:23→20:18)
[2022-02-20] MEDS: CHOLECALCIFEROL 1,000 UNITS 25 MCG TAB PO SCH (08:23)
--- NOTE | 2022-02-20 10:28 | Hospitalist Progress Note ---
Date of Service February 20, 2022 Assessment & Plan (1) Acute dyspnea: (2) Atypical pneumonia: Plan: Patient presents from home with shortness of breath Also has cough with whitish phlegm CT chest shows a small to moderate right pleural effusion. Clustered tree-in- bud nodules within superior segment of left lower lobe. Emphysema. T-max of 38.8 C in the last 48 hours No leukocytosis Plan; Continue plwrec-dzh-rpaso duo nebs, ceftriaxone/doxycycline. - Plan to provide total of 5 to 7-day of antibiotic. Blood culture no growth in 24 hours; will follow up. (3) ESRD (end stage renal disease) on dialysis: Plan: Missed dialysis session. Was dialyzed on 02/18 and 02/19. Gets outpatient dialysis Monday, and Monday. (4) Demand ischemia: Plan: High-sensitivity troponin in 20s without no significant delta gap No complaint of chest pain Echo shows EF of 55 to 60%. Moderate to severe tricuspid regurgitation. No wall motion abnormalities. Plan Chronic conditions: 5. History of prostate cancer, on Lupron shots. 6. History of depression, citalopram. 7. History of hypertension, on atenolol and amlodipine, 8. Deep venous thrombosis prophylaxis: Heparin subcutaneously. Admission and Anticipated Discharge Date Admission Date: February 18, 2022 Subjective Patient seen and examined at bedside. He reports cough with whitish sputum production. He feels that his breathing is not quite back to baseline. He was on 2 L of oxygen via nasal cannula when he was seen in the morning. Review of Systems Review of Systems: All systems reviewed & are unremarkable except as noted in Subjective Physical Exam Physical Exam: Constitutional: WD/WN, vitals as above, NAD, sitting up in bed, pleasant, conversing easily Respiratory: Bilateral vesicular breath sounds; occasional crackles. Cardiovascular: RRR, no murmur, no edema Vessels: no JVD or carotid bruit Chest: normal inspection of chest Abdomen: normal bowel sounds, soft, nontender, no hepatosplenomegaly Musculoskeletal: Fistula present in left arm; overlying bandages present. Skin: no rashes, warm and dry normal turgor Neurologic: PERRL, EOMI, accommodation nl, no face palsy, no dysarthria CN's II- XI intact bilaterally and moves all extremities Psychiatric: A+Ox3, euthymic affect Lymphatic: no cervical or axillary lymphadenopathy : deferred Results & Data Results & Data ([facility]) Vital Signs (Past 12 Hours) Vital Signs Temp Pulse Pulse Resp BP Pulse Ox O2 Del Method 02/20/22 08:33 37.0 C 62 18 123/66 92 Room Air 02/20/22 08:08 70 02/20/22 08:00 Nasal Cannula 02/20/22 07:42 64 18 Nasal Cannula 02/20/22 03:28 37.5 C 65 18 137/67 90 Nasal Cannula 02/19/22 23:41 72 02/19/22 22:37 37.0 C 18 118/63 93 Nasal Cannula O2 Flow Rate 02/20/22 08:33 02/20/22 08:08 02/20/22 08:00 2 02/20/22 07:42 2 02/20/22 03:28 2 02/19/22 23:41 02/19/22 22:37 3
[2022-02-20] MEDS: ATENOLOL 50 MG TABLET PO SCH (20:17)
[2022-02-20] MEDS: CITALOPRAM 20 MG TAB PO SCH (20:27)
[2022-02-21] MEDS: ALBUT/IPRATROP 3MG/0.5MG NEB 3 ML VIAL NEB SCH ×3 (06:36→15:03)
[2022-02-21 06:42] LABS: Hematocrit (blood only) 32.8 % (40.1-51.0); Hemoglobin 10.9 g/dl (14.0-18.0); Mean Corpuscular Hemoglobin 32.7 pg (25.0-34.0); Mean Corpuscular Hgb Conc 33.2 g/dL (32.0-36.0); Mean Corpuscular Volume 98.5 fL (80.0-100.0); Platelet Count 143 K/uL (130-400); RDW Coefficient of Variation 14.6 % (11.5-14.5); RDW Standard Deviation 52.2 fL (36.4-46.3); Red Blood Count 3.33 M/uL (4.63-6.08); White Blood Count 3.24 K/ul (4.8-10.8)
[2022-02-21 07:16] LABS: Albumin Globulin Ratio 1.1 (0.9-2); Albumin Level 3.4 gm/dl (3.4-5.0); BUN Creatinine Ratio 5.2 (10-20); Bilirubin,Total 0.4 mg/dl (0.2-1.0); Calcium 8.6 mg/dl (8.5-10.1); Creatinine Clr Calc Pharmacy 7.6 ml/min; Est GFR (African American) 8.3 ml/min; Est GFR (Non-African American) 7.2 ml/min; Globulin 3.1 gm/dl (2.5-4.0); Potassium 4.1 mmol/L (3.5-5.1); Total Protein 6.5 gm/dl (6.0-8.3)
[2022-02-21 07:48] LABS: Basophils # (auto) 0.02 K/uL (0-0.2); Basophils % (auto) 0.6 %; Eosinophils # (auto) 0.05 K/uL (0-0.50); Eosinophils % (auto) 1.5 %; Immature Granulocytes # (auto) 0.01 K/uL (0.00-0.02); Immature Granulocytes % (auto) 0.3 %; Lymphocytes # (auto) 0.81 K/uL (1.2-3.4); Monocytes # (auto) 0.32 K/uL (0.24-0.82); Monocytes % (auto) 9.9 %; Neutrophils # (auto) 2.03 K/uL (1.4-6.5); Neutrophils % (auto) 62.7 %
[2022-02-21] MEDS: CALCIUM ACETATE 667 MG CAP/TAB PO SCH ×2 (08:15→12:25)
[2022-02-21] MEDS: amLODIPine BESYLATE 5 MG TAB PO SCH (08:15)
[2022-02-21] MEDS: NEPHROCAPS PO SCH (08:16)
[2022-02-21] MEDS: HEPARIN SOD 5,000 UNIT/0.5 ML VIAL SQ SCH (08:16)
[2022-02-21] MEDS: DOXYCYCLINE HYCLATE 100 MG CAP PO SCH (08:16)
[2022-02-21] MEDS ORDERED: UMECLIDINIUM BROMIDE 62.5MCG/BLISTER 7 PUFFS/INHALER INH SCH (11:30)
[2022-02-21] MEDS: CHOLECALCIFEROL 1,000 UNITS 25 MCG TAB PO SCH (12:25)
--- NOTE | 2022-02-21 13:38 | Discharge Summary ---
Date of Service February 21, 2022 Admission HPI Per Admitting Provider A 76-year-old male with past medical history significant for hypertension, end- stage renal disease on dialysis, history of right hydronephrosis, history of bladder stones, history of chronic anemia, ongoing tobacco use, smokes 2 packs of cigarettes in a week, history of prostate cancer, on Lupron shots. He has a percutaneous drain on the right flank. He drains Urine whenever we feel the pressure building up, usually every couple of days. He also micturates little..He missed his dialysis today because of bad weather.Lately his potassium was going up, so he was told to take medcine today to bring his potassium down. He had an episode of diarrhea. He comes in because of shortness of breath. The patient lives with his . As per daughter, he is having shortness of breath on and off since last summer, but last 1 week, it got progressively worse. The patient says since last 2 days, he has become more short of breath and coughing and bringing up whitish phlegm. Denies any fever or chills. No chest pain, no headache, no back pain, no leg pains. Vision is okay. Runny nose in the mornings. Somewhat hard of hearing. Appetite is down for the last 1 week because of family tragedy as per daughter. No difficulty swallowing. No nausea. No bloody stools or black stools. No swelling in the legs. Ambulates without any support. Admission Exam Per Admitting Provider GENERAL: The patient is of moderate build, not in acute distress. VITAL SIGNS: Temperature 36.6, pulse 60, respiratory rate 18, blood pressure 129/66, oxygen 97% on 2 liters. HEENT: Pupils equal, round and reactive to light. Oral mucosa moist. NECK: No JVD, no neck masses. CARDIOVASCULAR: S1 and S2 heard. Regular rate and rhythm. No murmur, no gal lop. RESPIRATORY SYSTEM: Normal AP diameter. Diminished bilateral breath sounds. No obvious wheezing or crackles heard. ABDOMEN: Soft, bowel sounds present, nontender, no distention. CENTRAL NERVOUS SYSTEM: Cranial nerves II-XII grossly intact, nonfocal. EXTREMITIES: No edema, no erythema. Principal Diagnosis Missed hemodialysis session ESRD on dialysis Atypical pneumonia Demand ischemia Discharge Exam Constitutional: WD/WN, vitals as above, NAD, sitting up in bed, pleasant, conversing easily Respiratory: Bilateral vesicular breath sounds; occasional crackles. Cardiovascular: RRR, no murmur, no edema Vessels: no JVD or carotid bruit Chest: normal inspection of chest Abdomen: normal bowel sounds, soft, nontender, no hepatosplenomegaly Musculoskeletal: Fistula present in left arm; overlying bandages present. Skin: no rashes, warm and dry normal turgor Neurologic: PERRL, EOMI, accommodation nl, no face palsy, no dysarthria CN's II- XI intact bilaterally and moves all extremities Psychiatric: A+Ox3, euthymic affect Lymphatic: no cervical or axillary lymphadenopathy : deferred Discharge Data Allergies Allergy/AdvReac Type Severity Reaction Status Date / Time pantoprazole Allergy Unknown HIVES Verified 02/18/22 01:43 Consultations 02/18/22 00:44 ED Decision to Admit Stat 02/18/22 09:24 Consult Nephrology Routine Ordered Studies 02/18/22 01:24 CT chest diagnostic wo con Urgent Hospital Course (1) Acute dyspnea: (2) Atypical pneumonia: Patient presents from home with shortness of breath Also has cough with whitish phlegm CT chest shows a small to moderate right pleural effusion. Clustered tree-in-b ud nodules within superior segment of left lower lobe. Emphysema. Patient spiked fever of 38.8 C after dialysis on the day of the hospitalization. Blood cultureno growth in 48 hours Plan: Patient was treated during the hospitalization with [id number], hypertonic saline, Antibiotics. He was discharged on 3 more days of antibiotic and Spiriva inhaler. He has follow-ups appointment with his primary care doctor day after tomorrow. He is asked to obtain pulmonology referral for long-term management of emphysema. (3) ESRD (end stage renal disease) on dialysis: Missed dialysis session. Was dialyzed on 02/18 and 02/19. Gets outpatient dialysis Monday, and Monday. (4) Demand ischemia: High-sensitivity troponin in 20s without no significant delta gap No complaint of chest pain Echo shows EF of 55 to 60%. Moderate to severe tricuspid regurgitation. No wall motion abnormalities. Total Time Total Time Spent Total Time Spent (In Minutes): 40 Total Time Includes: Examination of the Patient, Discharge Planning, Medication Reconciliation, Communication With Other Providers and Other Discharge Plan Discharge Items Patient Disposition: Home - Self-Care Reason For Visit: SOB Discharge Diagnosis: (1) Acute dyspnea: (2) Atypical pneumonia: Condition on Discharge: Fair Activity: Resume your previous activity Non-emergency contact: Primary Care Provider Call non-emergency contact if: you have any medication questions and your sy mptoms worsen Follow-up/Referrals: Edgar Gamble MD [Primary Care Provider] - (Date & Time 02/23/2022 8:20 AM Provider Thaddeus Barcenas PA-C Department [facility] ) Diet: Regular Addtl Attending Provider Instructions: You were admitted to the hospital with pneumonia. You are treated with breathing treatments and antibiotic. You were also found to have emphysema. You are prescribed 3 more days of antibiotic to complete the course of treatment for pneumonia. Cefdinir 300 mg once daily for 3 days Doxycycline 100 mg twice daily for 3 days Please return back to your normal dialysis session starting tomorrow. Please take your other medication as prescribed before. You have follow-up with your primary care doctor on February 23 at 8:20 AM. Please obtain pulmonology referral from your PCP regarding prison management of emphysema. You are prescribed an inhaler. Please use it at regular basis. Pending Studies at Discharge: No Stand-Alone Forms: My [facility] [employer], Smoking Cessation Medications and DC Order Prescriptions: New doxycycline hyclate 100 mg Capsule 100 mg PO BID 3 Days Qty: 6 0RF cefdinir 300 mg capsule 300 mg PO DAILY 3 Days Qty: 3 0RF Incruse Ellipta 62.5 mcg/actuation blister with device 1 inh inhalation DAILY Qty: 30 0RF Spiriva with HandiHaler 18 mcg capsule, w/inhalation device 1 cap inhalation DAILY Qty: 30 0RF Rx Instructions: puncture 1 cap using device; one dose = 2 inhalations Continued calcium acetate(phosphat bind) 667 mg Capsule 667 mg PO TIDM cholecalciferol (vitamin D3) [Vitamin D3] 2,000 unit Capsule 2,000 unit PO DAILY atenolol 50 mg Tablet 50 mg PO HS citalopram 10 mg tablet 10 mg PO HS amlodipine 5 mg tablet 5 mg PO QAM paricalcitol [Zemplar] 2 mcg/mL Solution See Rx Instructions .ROUTE .COMPLEX Rx Instructions: 2.5 mcg intravenously 1st,2nd,3rd scheduled treatment Lupron Depot (3 month) 22.5 mg Syringe Kit 22.5 mg IM . EVERY 3 MONTHS cholecalciferol (vitamin D3) [Vitamin D3] 50 mcg (2,000 unit) Tablet 50 mcg PO DAILY Mircera 100 mcg/0.3 mL Syringe 100 mcg IV .SELECTED DATES Rx Instructions: IV PUSH MED Triferic 27.2 mg iron/5 mL Solution See Rx Instructions .ROUTE .COMPLEX Rx Instructions: given in Center 110mcg/lbc intravenous every treatment protein supplement Liquid See Rx Instructions .ROUTE .COMPLEX Rx Instructions: 1 ounce grape--give 30 cc orally weekly on 1st treatment 1 ounce peach jamil--give 30 cc orally weekly on 2nd scheduled treatment 1 ounce watermelon--give 30cc orally weekly on 3rd scheduled rreatment norflurane-pentafluoropropane Aerosol,[place] 1 spray topical UD Rx Instructions: done in Center spray 1st,2nd,3rd scheduled treatment Discharge Orders: Discharge Order (Routine); Ordered 02/21/22 Ordered By: Artemio Moore Admission Data Admit Date/Time: 02/18/22 01:24 Attending Provider: Artemio Moore Admit Provider: Kali Abebe Primary Care Provider: Edgar Gamble Other Providers: Kali Abebe ; Emilee Souza Other Interventions: Discharge Summary Assessment (RN) Last Done: 02/21/22 12:59
== END 2022-02-21 17:12 | disposition home or self-care (01) | DRG 193 ==
LOC: ED 22:52 → EDINP 02-18 01:24 → 2N 02-18 14:48
DX: Z93.6 Other artificial openings of urinary tract status; F32.A Depression, unspecified; J90 Pleural effusion, not elsewhere classified; C61 Malignant neoplasm of prostate; I24.8 Other forms of acute ischemic heart disease; J43.9 Emphysema, unspecified; N18.6 End stage renal disease; D64.9 Anemia, unspecified; Z99.2 Dependence on renal dialysis; I36.1 Nonrheumatic tricuspid (valve) insufficiency; J18.9 Pneumonia, unspecified organism; I12.0 Hypertensive chronic kidney disease with stage 5 chronic kidney disease or end stage renal disease; E87.5 Hyperkalemia; F17.210 Nicotine dependence, cigarettes, uncomplicated

== ENCOUNTER 2023-06-01 18:03 | Inpatient (IN) ==
[2023-06-01 18:34] LABS: Base Excess VBG 4.4 mEq/L; HCO3 VBG 33 mmol/L; Oxygen Saturation VBG 90.9 %; PCO2 VBG 65 mmHg (38-50); PO2 VBG 63 mmHg; pH VBG 7.31 (7.36-7.41)
--- NOTE | 2023-06-01 18:35 | XRay Report ---
XR chest 1V portable CLINICAL HISTORY: Dyspnea. COMPARISON STUDY: Chest CT February 18, 2022. Chest radiograph February 17, 2022. FINDINGS: A moderate size right pneumothorax is noted. The pneumothorax appears loculated. Basilar an d lateral apical components are noted. Interstitial thickening and alveolar opacities within the lung s are present. There is a suspected small right pleural effusion. There is no left pneumothorax. Mode rate cardiomegaly is unchanged. IMPRESSION: 1. Moderate size right pneumothorax which appears loculated, as described above. Small right pleural effusion. 2. Interstitial thickening and alveolar opacities within the lungs. The findings could reflect pneumo jose or pulmonary edema. 3. Moderate cardiomegaly. ACT 112: Negative or not required by law. Electronically signed by: Harvey Johnson M.D. 06/01/2023 6:32 PM
[2023-06-01 18:38] LABS: Basophils # (auto) 0.05 K/uL (0.00-0.20); Basophils % (auto) 0.4 %; Eosinophils # (auto) 0.09 K/uL (0.00-0.50); Eosinophils % (auto) 0.8 %; Hematocrit (blood only) 26.3 % (42.0-52.0); Immature Granulocytes # (auto) 0.11 K/uL (0.01-0.20); Immature Granulocytes % (auto) 0.9 %; Lymphocytes % (auto) 6.9 %; Mean Corpuscular Hemoglobin 33.5 pg (25.0-34.0); Mean Corpuscular Hgb Conc 34.2 g/dL (32.0-36.0); Mean Corpuscular Volume 97.8 fL (80.0-100.0); Mean Platelet Volume 9.6 fL (9.4-12.4); Monocytes # (auto) 0.56 K/uL (0.11-0.59); Monocytes % (auto) 4.8 %; Neutrophils # (auto) 10.02 K/uL (1.40-6.50); Neutrophils % (auto) 86.2 %; Platelet Count 230 K/uL (130-400); RDW Coefficient of Variation 12.8 % (11.5-14.5); RDW Standard Deviation 45.1 fL (36.4-46.3); Red Blood Count 2.69 M/uL (4.70-6.10); White Blood Count 11.63 K/ul (4.8-10.8)
[2023-06-01 18:56] LABS: Albumin Level 3.6 gm/dl (3.4-5.0); Bilirubin,Total 0.6 mg/dl (0.2-1.0); Potassium 3.8 mmol/L (3.5-5.1)
[2023-06-01 19:02] LABS: Albumin Globulin Ratio 0.9 (0.9-2); BUN Creatinine Ratio 7.3 (10-20); Creatinine Clr Calc Pharmacy 13.9 ml/min; Est GFR (African American) 18.5 ml/min; Globulin 3.8 gm/dl (2.5-4.0); Total Protein 7.4 gm/dl (6.0-8.3)
[2023-06-01 19:09] LABS: Troponin I High Sensitivity 74.4 pg/ml (0-20)
[2023-06-01] MEDS: LORazepam 1 MG/1 ML SYR ED Inj Use ONE (19:19)
[2023-06-01 20:02] LABS: Appearance Urine Cloudy (Clear); Bacteria Urine Automated Negative (Negative); Bilirubin Urine Negative (Negative); Blood Urine 1+ (Negative); Color Urine Yellow; Epithelial Cell Urine Auto >30 /lpf (0-5); Glucose Urine UA Trace (Negative); Ketones Urine Negative (Negative); Leukocyte Esterase Urine 3+ (Negative); Nitrite Urine Negative (Negative); RBC Urine Automated 0-4 /hpf (0-4); Specific Gravity Urine 1.011 (1.000-1.030); Urobilinogen Urine Negative (Negative); WBC Urine Automated >30 /hpf (0-5); pH Urine >= 9.0 (4.5-7.5)
[2023-06-01 20:06] LABS: Protein Urine 3+ (Negative)
[2023-06-01 20:07] LABS: Adenovirus PCR Not Detected (NotDetected); Bordetella parapertussis PCR Not Detected (NotDetected); Bordetella pertussis PCR Not Detected (NotDetected); Chlamydia pneumoniae PCR Not Detected (NotDetected); Coronavirus 229E PCR Not Detected (NotDetected); Coronavirus CoV-2 (COVID19)PCR Not Detected (NotDetected); Coronavirus HKU1 PCR Not Detected (NotDetected); Coronavirus NL63 PCR Not Detected (NotDetected); Coronavirus OC43PCR Not Detected (NotDetected); Human Metapneumovirus PCR Not Detected (NotDetected); Influenza A PCR Not Detected (NotDetected); Influenza B PCR Not Detected (NotDetected); Mycoplasma pneumoniae PCR Not Detected (NotDetected); Parainfluenza Virus 1 PCR Not Detected (NotDetected); Parainfluenza Virus 2 PCR Not Detected (NotDetected); Parainfluenza Virus 3 PCR Not Detected (NotDetected); Parainfluenza Virus 4 PCR Not Detected (NotDetected); Respiratory Syncytial VirusPCR Not Detected (NotDetected); Rhinovirus/Enterovirus PCR Not Detected (NotDetected)
--- NOTE | 2023-06-01 20:25 | Emergency Department Note ---
Impression & Plan Pneumothorax, Pulmonary edema ED Provider Note NAME: BEE GOLDBERG AGE: 78 SEX: M : 1945 ARRIVES VIA: Ambulance INFORMANT: Patient, ED PROVIDER(S): Pamela Tyler MD CHIEF COMPLAINT: Shortness of breath HPI: This is a an 78-year-old male presented for respiratory distress. Patient was discussed with me via EMS was significantly hypertensive into the 240s over 130 systolic. They were concerned about needing intubation mid route. I advised him to give nitro sprays totaling 4. Patient had improved respirations after this but she was switched to BiPAP in route. Upon arrival here patient is hypertensive to 190s, tolerating BiPAP fairly well. Not hypoxic. Still having increased work of breathing but unable to. Patient having diminished lung sounds with mild wheezing crackles. Patient dates he feels better on the BiPAP currently. He complains of no chest pain. His family states that he has had 4 recent thoracentesis, most recent was yesterday done at [facility]. He had a full session of dialysis done today and upon entering his home he began feeling worsening shortness of breath. Reported his oxygen saturation were 60% when EMS arrived. He is chronically on 2 L at home. ROS: See above HPI for pertinent positives & negatives. A total of 10 systems reviewed and were otherwise negative. PAST MEDICAL HISTORY: See Below PAST SURGICAL HISTORY: See Below FAMILY HISTORY: See Below SOCIAL HISTORY: See Below HOME MEDICATIONS: See Below ALLERGIES: See Below VITALS: See Below PHYSICAL EXAMINATION: General: Extremis, respiratory distress, chronically ill-appearing Head: Normocephalic and atraumatic Eyes: Normal inspection, extraocular muscles intact Ear, nose, throat: Normal external exam Neck: Normal range of motion Respiratory: Diminished with faint wheezing/crackles Cardiovascular: Tachycardic regular rate/rhythm, no murmur GI: soft, nontender Extremities: nontender, moves all extremities Neuro: The patient awake and alert, appropriately conversive, no focal deficits, symmetric faces Skin: Warm, dry, and intact MEDICAL DECISION MAKING: This is an 78-year-old male presenting for respiratory distress. Initially thought to be related to possible flash pulmonary edema due to CHF/fluid overload. Patient did receive dialysis. Patient received 4X nitro spray with improvement in blood pressure down from 240s to 190s and improvement in oxygenation/respiratory status. Immediate bedside x-ray was ordered showing a right loculated pneumothorax as well as his opacities bilaterally concerning for pulmonary edema as per independent interpretation. Patient was immediately taken off of BiPAP and switched to nonrebreather. Patient oxygen saturation remained 100% during this time. Patient feels more comfortable on the nonrebreather. He is still oxygenating well. His blood pressure is slowly downtrending to normal range. His heart rate is also downtrending to normal range. -I did message radiology for confirmation of pneumothorax -Discussed case with patient's family who are comfortable with chest tube placement for his pneumothorax. In the understand the risks and signed the consent form -For anxiolysis, gave 4 mg of IV Ativan -Pigtail catheter placement Indication: Pneumothorax Written consent was obtained after the risks and benefits were explained, including but not limited to cardiac/liver/lung injury, bleeding, scarring, infection, pain, and bone/joint/nerve damage. At this time, the risks of the procedure are less than the risks of NOT performing the procedure. A time out was taken and the correct patient and site identified. The patient was prepped and draped in the standard surgical fashion. 1% lidocaine without epinephrine was infused over the fifth intercostal space into the subcutaneous tissue. Selinger technique was used throughout the pigtail catheter. First a 18-gauge needle was inserted into the pleural space until air was seen bubbling through. Guidewire was carefully placed and a incision was done over this wire at the skin level. The dilator was then used to dilate the tract. The 14 chinese pigtail catheter was then placed into the pleural space without any resistance. 1-0 silk suture was used to approximate the skin above the tube and then used to secure the tube. An occlusive dressing was then placed and the tube was hooked to the Pleur-evac suction. The patient tolerated the procedure well without complications. A postoperative x-ray was then performed which showed the thoracostomy tube in the correct position. -Repeat chest x-ray shows appropriate positioning, patient continues to have reassuring blood pressure, oxygenation and downtrending oxygen requirements. Now on nasal cannula. -Will admit the patient for chest tube management, possible fluid overload and pulmonary edema Differential diagnosis: Flash pulmonary edema, pneumothorax, PE, pneumonia, fluid overload ER treatment provided: See below Diagnostics interpreted by me: ECG: ECG independently interpreted by me with normal sinus rhythm, rate of 101, left axis deviation, normal DE, normal QRS, normal QTc, no ST segment elevations consistent with STEMI criteria Cardiac Monitoring: An order was placed for continuous cardiac monitoring. The monitor shows a rate of 78 with sinus rhythm. Laboratory studies: As stated above and show below. Imaging studies: See below. Critical Care Note: I have personally spent 60 minutes of critical care time in the direct management of this patient. This includes bedside care, interpretation of diagnostic studies, and testing, discussion with consultants, patient, and family members, and other required patient management activities. This 60 minutes is in excess of all separately billable procedures. Past Med/Surg History Medical History (Updated 06/02/23 @ 00:17 by Pamela Tyler MD) AV fistula left arm Permanent central venous catheter in place Tobacco use Chronic anemia Chronic indwelling [place] catheter Obstruction of nephrostomy tube Admitted for this 11/2017 along with hypertensive urgency HTN (hypertension) Was treated for hypertensive urgency at [facility] 11/2017 Prostate cancer Currently in remission. On Leupron injections. CKD (chronic kidney disease), stage V DIALYSIS 3 X WEEK ELENA PALMA (//MON) VIA PERMA CATH Bladder stones Urinary retention Hyperkalemia On a K restricted diet Surgical History History of surgery PLACEMENT OF NEPHROSTOMY TUBE Family History Other Breast cancer Lung cancer No pertinent family history Stomach cancer Social History Smoking Status: Current every day smoker Tobacco Type: Cigarettes Cigarettes Per Day: 2 packs a week; Second Hand Exposure: No; Do You Dip or Chew Tobacco: No; Hx Alcohol Use: No Hx Substance Use: No Preferred Language: Turkish Communication Ability: Effective Visual Impairment: No Limitations Project Developer Required: No Beliefs That Will Affect Care: None marital status: Current Living Situation: Spouse Feels Safe at Home: Yes Assistive Devices: Denture - Upper, Denture - Lower and Glasses Allergies Allergies Allergy/AdvReac Type Severity Reaction Status Date / Time pantoprazole Allergy Unknown HIVES Verified 06/01/23 19:59 Home Meds Home Medications Medication Instructions Recorded Confirmed calcium acetate(phosphat bind) 667 2,001 mg PO TIDM 03/02/18 06/01/23 mg capsule atenolol 50 mg tablet 50 mg PO HS 03/16/18 06/01/23 amlodipine 5 mg tablet 5 mg PO QAM 02/17/22 06/01/23 citalopram 10 mg tablet 10 mg PO HS 02/17/22 06/01/23 cholecalciferol (vitamin D3) 50 50 mcg PO DAILY 02/18/22 06/01/23 mcg (2,000 unit) tablet (Vitamin D3) epoetin beta, methoxy peg 100 100 mcg IV .SELECTED DATES 02/18/22 06/01/23 mcg/0.3 mL injection syringe (Mircera) ferric pyrophosphate citrate 27.2 See Rx Instructions .Route .COMPLEX 02/18/22 06/01/23 mg iron/5 mL soln for hemodialysate (Triferic) protein supplement See Rx Instructions .Route .COMPLEX 02/18/22 06/01/23 albuterol sulfate 90 mcg/actuation 2 puff inhalation Q4 PRN 06/01/23 06/01/23 aerosol inhaler (Ventolin HFA) cough,SOB,wheezing leuprolide acetate (6 month) 45 mg 45 mg IM .EVERY 6 MONTHS 06/01/23 06/01/23 intramuscular syringe kit (Lupron Depot) torsemide 100 mg tablet 100 mg PO UD 06/01/23 06/01/23 vitamin B comp no.3-folic acid 1 1 tab PO DAILY 06/01/23 06/01/23 mg-vit C 60 mg-biotin 300 mcg tablet (Gill-Farzana Rx) Results & Data (ED) Vital Signs Vital Signs - 24 hr 06/01/23 18:13 06/01/23 18:15 06/01/23 18:17 Temperature Temperature Source Pulse Rate 103 H 104 H Pulse Rate from SpO2 Sensor Respiratory Rate 36 H Respiratory Effort / Characteristics Respiratory Depth Respiratory Pattern Blood Pressure 154/89 H 129/85 Blood Pressure Mean 110 94 Pulse Oximetry 100 Oxygen Delivery Method BiPAP Oxygen Flow Rate Fraction of Inspired Oxygen Sepsis New/Unexplained Change in Mental Status No Sepsis Action Taken by Nursing Physician Notified 06/01/23 18:17 06/01/23 18:19 06/01/23 18:20 Temperature Temperature Source Pulse Rate 102 H 102 H 102 H Pulse Rate from SpO2 Sensor 97 H 103 H Respiratory Rate 29 H 32 H 34 H Respiratory Effort / Characteristics Spontaneous Accessory Muscle Use Labored Respiratory Depth Normal Respiratory Pattern Tachypnea Blood Pressure Blood Pressure Mean Pulse Oximetry 96 100 98 Oxygen Delivery Method Non-rebreather Oxygen Flow Rate 15 Fraction of Inspired Oxygen 40 Sepsis New/Unexplained Change in Mental Status Sepsis Action Taken by Nursing 06/01/23 18:25 06/01/23 18:30 06/01/23 18:31 Temperature Temperature Source Pulse Rate 101 H 103 H Pulse Rate from SpO2 Sensor 101 H 103 H Respiratory Rate 26 H 23 Respiratory Effort / Characteristics Respiratory Depth Respiratory Pattern Blood Pressure 141/80 H Blood Pressure Mean 87 Pulse Oximetry 99 100 Oxygen Delivery Method Non-rebreather Non-rebreather Oxygen Flow Rate 15 15 Fraction of Inspired Oxygen Sepsis New/Unexplained Change in Mental Status Sepsis Action Taken by Nursing 06/01/23 18:31 06/01/23 18:35 06/01/23 18:38 Temperature Temperature Source Pulse Rate 106 H 102 H Pulse Rate from SpO2 Sensor 105 H 102 H Respiratory Rate 25 H 28 H Respiratory Effort / Characteristics Respiratory Depth Respiratory Pattern Blood Pressure Blood Pressure Mean Pulse Oximetry 100 100 Oxygen Delivery Method Non-rebreather Non-rebreather Non-rebreather Oxygen Flow Rate 15 15 Fraction of Inspired Oxygen Sepsis New/Unexplained Change in Mental Status Sepsis Action Taken by Nursing 06/01/23 18:40 06/01/23 18:45 06/01/23 18:45 Temperature Temperature Source Pulse Rate 98 H 92 H Pulse Rate from SpO2 Sensor 97 H 90 Respiratory Rate 24 21 Respiratory Effort / Characteristics Respiratory Depth Respiratory Pattern Blood Pressure 120/83 Blood Pressure Mean 95 Pulse Oximetry 100 100 Oxygen Delivery Method Non-rebreather Non-rebreather Oxygen Flow Rate 15 15 Fraction of Inspired Oxygen Sepsis New/Unexplained Change in Mental Status Sepsis Action Taken by Nursing 06/01/23 18:45 06/01/23 18:50 06/01/23 18:55 Temperature 36.7 C Temperature Source Oral Pulse Rate 96 H 96 H Pulse Rate from SpO2 Sensor 96 H 95 H Respiratory Rate 28 H 27 H Respiratory Effort / Characteristics Respiratory Depth Respiratory Pattern Blood Pressure Blood Pressure Mean Pulse Oximetry 100 100 Oxygen Delivery Method Nebulizer Oxygen Flow Rate 15 Fraction of Inspired Oxygen Sepsis New/Unexplained Change in Mental Status Sepsis Action Taken by Nursing 06/01/23 19:00 06/01/23 19:00 06/01/23 19:04 Temperature Temperature Source Pulse Rate 97 H Pulse Rate from SpO2 Sensor 97 H Respiratory Rate 27 H Respiratory Effort / Characteristics Respiratory Depth Respiratory Pattern Blood Pressure 141/76 H Blood Pressure Mean 119 Pulse Oximetry 100 100 Oxygen Delivery Method Non-rebreather Oxygen Flow Rate 15 Fraction of Inspired Oxygen Sepsis New/Unexplained Change in Mental Status Sepsis Action Taken by Nursing 06/01/23 19:05 06/01/23 19:15 06/01/23 19:30 Temperature Temperature Source Pulse Rate 95 H 91 H 90 Pulse Rate from SpO2 Sensor 95 H 92 H 91 H Respiratory Rate 23 28 H 25 H Respiratory Effort / Characteristics Respiratory Depth Respiratory Pattern Blood Pressure 130/81 108/61 Blood Pressure Mean 97 76 Pulse Oximetry 100 100 100 Oxygen Delivery Method Non-rebreather Non-rebreather Oxygen Flow Rate 15 15 Fraction of Inspired Oxygen Sepsis New/Unexplained Change in Mental Status Sepsis Action Taken by Nursing 06/01/23 19:45 06/01/23 19:55 06/01/23 20:00 Temperature Temperature Source Pulse Rate 84 Pulse Rate from SpO2 Sensor 83 79 78 Respiratory Rate 23 Respiratory Effort / Characteristics Respiratory Depth Respiratory Pattern Blood Pressure 85/55 L 118/79 108/69 Blood Pressure Mean 65 92 82 Pulse Oximetry 100 100 100 Oxygen Delivery Method Non-rebreather Non-rebreather Non-rebreather Oxygen Flow Rate 15 15 15 Fraction of Inspired Oxygen Sepsis New/Unexplained Change in Mental Status Sepsis Action Taken by Nursing 06/01/23 20:15 06/01/23 20:30 06/01/23 20:45 Temperature Temperature Source Pulse Rate 74 74 75 Pulse Rate from SpO2 Sensor 74 74 75 Respiratory Rate 21 20 22 Respiratory Effort / Characteristics Respiratory Depth Respiratory Pattern Blood Pressure 110/72 113/72 114/75 Blood Pressure Mean 84 85 88 Pulse Oximetry 100 100 100 Oxygen Delivery Method Non-rebreather Non-rebreather Non-rebreather Oxygen Flow Rate 15 15 15 Fraction of Inspired Oxygen Sepsis New/Unexplained Change in Mental Status Sepsis Action Taken by Nursing 06/01/23 21:00 06/01/23 21:00 06/01/23 21:12 Temperature Temperature Source Pulse Rate 75 Pulse Rate from SpO2 Sensor 75 Respiratory Rate 24 Respiratory Effort / Characteristics Respiratory Depth Respiratory Pattern Blood Pressure 117/75 117/75 Blood Pressure Mean 82 89 Pulse Oximetry 100 98 Oxygen Delivery Method Non-rebreather Nasal Cannula Oxygen Flow Rate 15 4 Fraction of Inspired Oxygen Sepsis New/Unexplained Change in Mental Status Sepsis Action Taken by Nursing 06/01/23 21:15 06/01/23 21:15 06/01/23 21:18 Temperature Temperature Source Pulse Rate 75 Pulse Rate from SpO2 Sensor 74 Respiratory Rate 25 H Respiratory Effort / Characteristics Respiratory Depth Respiratory Pattern Blood Pressure 114/80 114/80 Blood Pressure Mean 84 91 Pulse Oximetry 96 94 Oxygen Delivery Method Nasal Cannula Nasal Cannula Oxygen Flow Rate 3 3 Fraction of Inspired Oxygen Sepsis New/Unexplained Change in Mental Status Sepsis Action Taken by Nursing 06/01/23 22:01 Temperature Temperature Source Pulse Rate 73 Pulse Rate from SpO2 Sensor Respiratory Rate Respiratory Effort / Characteristics Respiratory Depth Respiratory Pattern Blood Pressure Blood Pressure Mean Pulse Oximetry Oxygen Delivery Method Oxygen Flow Rate Fraction of Inspired Oxygen Sepsis New/Unexplained Change in Mental Status Sepsis Action Taken by Nursing Laboratory Data 06/01/23 18:20 06/01/23 18:20 Lab Results 06/01/23 06/01/23 06/01/23 Range/Units 18:20 18:44 19:00 WBC 11.63 H (4.8-10.8) K/ul RBC 2.69 L (4.70-6.10) M/uL Hgb 9.0 L (14.0-18.0) g/dl Hct 26.3 L (42.0-52.0) % MCV 97.8 (80.0-100.0) fL MCH 33.5 (25.0-34.0) pg MCHC 34.2 (32.0-36.0) g/dL RDW Std Deviation 45.1 (36.4-46.3) fL RDW Coeff of Stacy 12.8 (11.5-14.5) % Plt Count 230 (130-400) K/uL MPV 9.6 (9.4-12.4) fL Immature Gran % (Auto) 0.9 % Neut % (Auto) 86.2 % Lymph % (Auto) 6.9 % Swift % (Auto) 4.8 % Eos % (Auto) 0.8 % Baso % (Auto) 0.4 % Reticulocyte % (Auto) 1.74 (0.50-2.00) % Neut # (Auto) 10.02 H (1.40-6.50) K/uL Lymph # (Auto) 0.80 L (1.20-3.40) K/uL Swift # (Auto) 0.56 (0.11-0.59) K/uL Eos # (Auto) 0.09 (0.00-0.50) K/uL Baso # (Auto) 0.05 (0.00-0.20) K/uL Reticulocyte # 0.040 (0.020-0.100) 10^6/uL Immature Gran # (Auto) 0.11 (0.01-0.20) K/uL APTT (21-31) Seconds PTT Ratio ABG pH (7.35-7.45) ABG pCO2 (35-46) mmHg ABG pO2 (80-95) mmHg ABG HCO3 (19-24) mmol/L ABG O2 Saturation (90-95) % ABG Base Excess (-9-1.8) mEq/L Steffen Test (Pos) VBG pH 7.31 L (7.36-7.41) VBG pCO2 65 H (38-50) mmHg VBG pO2 63 mmHg VBG HCO3 33 mmol/L VBG O2 Saturation 90.9 % VBG Base Excess 4.4 mEq/L Oxygen Given Sodium 136 (136-145) mmol/L Potassium 3.8 (3.5-5.1) mmol/L Chloride 93 L (98-107) mmol/L Carbon Dioxide 32 (21-32) mmol/L Anion Gap 11 (3-11) BUN 25 H (6-23) mg/dl Creatinine 3.42 H (0.6-1.4) mg/dl Est Cr Clr Drug Dosing 13.9 ml/min Est GFR ( Amer) 18.5 ml/min Est GFR (Non-Af Amer) 16.0 ml/min BUN/Creatinine Ratio 7.3 L (10-20) Glucose 237 H (70-99(Fasting)) mg/dl Estimat Average Glucose mg/dl Hemoglobin A1c (4.5-5.6) % Lactate (0.4-2.0) mmol/L Calcium 9.0 (8.6-10.3) mg/dl Total Bilirubin 0.6 (0.2-1.0) mg/dl AST 18 (13-39) U/L ALT 15 (7-52) U/L Alkaline Phosphatase 73 (34-104) U/L Troponin I High Sens 74.4 H* (0-20) pg/ml B-Natriuretic Peptide 3197 H (0-100) pg/ml Total Protein 7.4 (6.0-8.3) gm/dl Albumin 3.6 (3.4-5.0) gm/dl Globulin 3.8 (2.5-4.0) gm/dl Albumin/Globulin Ratio 0.9 (0.9-2) Vitamin B12 (180-914) pg/ml Folate (>5.38) ng/ml Procalcitonin 0.42 (0-0.5) ng/ml Urine Color Yellow Urine Appearance Cloudy A (Clear) Urine pH >= 9.0 H (4.5-7.5) Ur Specific [place] 1.011 (1.000-1.030) Urine Protein 3+ H (Negative) Urine Glucose (UA) Trace H (Negative) Urine Ketones Negative (Negative) Urine Blood 1+ H (Negative) Urine Nitrite Negative (Negative) Urine Bilirubin Negative (Negative) Urine Urobilinogen Negative (Negative) Ur Leukocyte Esterase 3+ H (Negative) Urine WBC (Auto) >30 H (0-5) /hpf Urine RBC (Auto) 0-4 (0-4) /hpf U Hyaline Cast (Auto) 1-5 (0-5) /lpf U Epithel Cells (Auto) >30 H (0-5) /lpf Urine Bacteria (Auto) Negative (Negative) Urine Yeast Not Reportable Adenovirus (PCR) Not Detected (NotDetected) B. pertussis DNA (PCR) Not Detected (NotDetected) B.parapertussis DNA PCR Not Detected (NotDetected) C. pneumoniae DNA (PCR) Not Detected (NotDetected) Coronavirus OC43 (PCR) Not Detected (NotDetected) Coronavirus HKU1 (PCR) Not Detected (NotDetected) Coronavirus 229E (PCR) Not Detected (NotDetected) SARS-CoV-2 (PCR) Not Detected (NotDetected) Coronavirus NL63 (PCR) Not Detected (NotDetected) Human Metapneumovir PCR Not Detected (NotDetected) Influenza Type A (PCR) Not Detected (NotDetected) Influenza Type B (PCR) Not Detected (NotDetected) M. pneumoniae (PCR) Not Detected (NotDetected) Parainfluenza 1 (PCR) Not Detected (NotDetected) Parainfluenza 2 (PCR) Not Detected (NotDetected) Parainfluenza 3 (PCR) Not Detected (NotDetected) Parainfluenza 4 (PCR) Not Detected (NotDetected) RSV (PCR) Not Detected (NotDetected) Entero/Rhino (PCR) Not Detected (NotDetected) 06/01/23 06/01/23 Range/Units 20:37 21:03 WBC (4.8-10.8) K/ul RBC (4.70-6.10) M/uL Hgb (14.0-18.0) g/dl Hct (42.0-52.0) % MCV (80.0-100.0) fL MCH (25.0-34.0) pg MCHC (32.0-36.0) g/dL RDW Std Deviation (36.4-46.3) fL RDW Coeff of Stacy (11.5-14.5) % Plt Count (130-400) K/uL MPV (9.4-12.4) fL Immature Gran % (Auto) % Neut % (Auto) % Lymph % (Auto) % Swift % (Auto) % Eos % (Auto) % Baso % (Auto) % Reticulocyte % (Auto) (0.50-2.00) % Neut # (Auto) (1.40-6.50) K/uL Lymph # (Auto) (1.20-3.40) K/uL Swift # (Auto) (0.11-0.59) K/uL Eos # (Auto) (0.00-0.50) K/uL Baso # (Auto) (0.00-0.20) K/uL Reticulocyte # (0.020-0.100) 10^6/uL Immature Gran # (Auto) (0.01-0.20) K/uL APTT 29 (21-31) Seconds PTT Ratio 1.0 ABG pH 7.42 (7.35-7.45) ABG pCO2 53 H (35-46) mmHg ABG pO2 210 H (80-95) mmHg ABG HCO3 34 H (19-24) mmol/L ABG O2 Saturation 97.9 H (90-95) % ABG Base Excess 8.2 H (-9-1.8) mEq/L Steffen Test Pos (Pos) VBG pH (7.36-7.41) VBG pCO2 (38-50) mmHg VBG pO2 mmHg VBG HCO3 mmol/L VBG O2 Saturation % VBG Base Excess mEq/L Oxygen Given 15 L Sodium (136-145) mmol/L Potassium (3.5-5.1) mmol/L Chloride (98-107) mmol/L Carbon Dioxide (21-32) mmol/L Anion Gap (3-11) BUN (6-23) mg/dl Creatinine (0.6-1.4) mg/dl Est Cr Clr Drug Dosing ml/min Est GFR ( Amer) ml/min Est GFR (Non-Af Amer) ml/min BUN/Creatinine Ratio (10-20) Glucose (70-99(Fasting)) mg/dl Estimat Average Glucose 111 mg/dl Hemoglobin A1c 5.5 (4.5-5.6) % Lactate 1.0 (0.4-2.0) mmol/L Calcium (8.6-10.3) mg/dl Total Bilirubin (0.2-1.0) mg/dl AST (13-39) U/L ALT (7-52) U/L Alkaline Phosphatase (34-104) U/L Troponin I High Sens 380.1 H* D (0-20) pg/ml B-Natriuretic Peptide (0-100) pg/ml Total Protein (6.0-8.3) gm/dl Albumin (3.4-5.0) gm/dl Globulin (2.5-4.0) gm/dl Albumin/Globulin Ratio (0.9-2) Vitamin B12 717 (180-914) pg/ml Folate > 22.30 (>5.38) ng/ml Procalcitonin (0-0.5) ng/ml Urine Color Urine Appearance (Clear) Urine pH (4.5-7.5) Ur Specific [place] (1.000-1.030) Urine Protein (Negative) Urine Glucose (UA) (Negative) Urine Ketones (Negative) Urine Blood (Negative) Urine Nitrite (Negative) Urine Bilirubin (Negative) Urine Urobilinogen (Negative) Ur Leukocyte Esterase (Negative) Urine WBC (Auto) (0-5) /hpf Urine RBC (Auto) (0-4) /hpf U Hyaline Cast (Auto) (0-5) /lpf U Epithel Cells (Auto) (0-5) /lpf Urine Bacteria (Auto) (Negative) Urine Yeast Adenovirus (PCR) (NotDetected) B. pertussis DNA (PCR) (NotDetected) B.parapertussis DNA PCR (NotDetected) C. pneumoniae DNA (PCR) (NotDetected) Coronavirus OC43 (PCR) (NotDetected) Coronavirus HKU1 (PCR) (NotDetected) Coronavirus 229E (PCR) (NotDetected) SARS-CoV-2 (PCR) (NotDetected) Coronavirus NL63 (PCR) (NotDetected) Human Metapneumovir PCR (NotDetected) Influenza Type A (PCR) (NotDetected) Influenza Type B (PCR) (NotDetected) M. pneumoniae (PCR) (NotDetected) Parainfluenza 1 (PCR) (NotDetected) Parainfluenza 2 (PCR) (NotDetected) Parainfluenza 3 (PCR) (NotDetected) Parainfluenza 4 (PCR) (NotDetected) RSV (PCR) (NotDetected) Entero/Rhino (PCR) (NotDetected) Administered Medications Discontinued Medications Albuterol (Albut/Ipratrop 3mg/0.5mg Neb 3 Ml Vial) 3 ml NEB NOW STA; Protocol Stop: 06/01/23 22:18 Last Admin: 06/01/23 23:06 Dose: 3 ml Documented By: LAF Furosemide (Furosemide 10 Mg/Ml 10 Ml Vial) 100 mg IV ONE STA Stop: 06/01/23 22:25 Last Admin: 06/01/23 23:04 Dose: 100 mg Documented By: LAF Nitroglycerin/Dextrose (Nitroglycerin/D5w 100 Mcg/Ml) 250 mls @ 3 mls/hr IV .Q24H [facility]; Protocol Stop: 07/01/23 18:14 Last Admin: 06/01/23 20:44 Dose: Not Given Documented By: NAW Lorazepam (Lorazepam 1 Mg/1 Ml Syr Ed Inj Use) Confirm Administered Dose 2 mg .ROUTE .STK-MED ONE Stop: 06/01/23 19:18 Last Admin: 06/01/23 19:19 Dose: 1 mg Documented By: LELA Miscellaneous (Stat Iv Infusion Titration Per Protocol) 1 each N/A NOW STA Stop: 06/01/23 18:14 Last Admin: 06/01/23 20:44 Dose: Not Given Documented By: LELA Nitroglycerin/Dextrose (Nitroglycerin/D5w 100 Mcg/Ml Btl) Confirm Administered Dose 25 mg .ROUTE .STK-MED ONE Stop: 06/01/23 18:07 Last Admin: 06/01/23 20:44 Dose: Not Given Documented By: LELA Imaging Data Radiologist's Impression: Chest X-Ray 06/01/23 18:13 XR chest 1V portable CLINICAL HISTORY: Dyspnea. COMPARISON STUDY: Chest CT February 18, 2022. Chest radiograph February 17, 2022. FINDINGS: A moderate size right pneumothorax is noted. The pneumothorax appears loculated. Basilar and lateral apical components are noted. Interstitial thickening and alveolar opacities within the lungs are present. There is a suspected small right pleural effusion. There is no left pneumothorax. Moderate cardiomegaly is unchanged. IMPRESSION: 1. Moderate size right pneumothorax which appears loculated, as described above. Small right pleural effusion. 2. Interstitial thickening and alveolar opacities within the lungs. The findings could reflect pneumonia or pulmonary edema. 3. Moderate cardiomegaly. ACT 112: Negative or not required by law. Electronically signed by: Harvey Johnson M.D. 06/01/2023 6:32 PM Discharge Plan Visit Data Chief Complaint: Respiratory Distress Stated Complaint: respiratory distress ED Provider: Pamela Tyler Discharge Problem: Pneumothorax, Pulmonary edema Discharge Instructions Interventions: ED Discharge Assessment Last Done: 06/01/23 23:17
[2023-06-01] MEDS: NITROGLYCERIN/D5W 100MCG/ML 250 ML IV SCH (20:44)
[2023-06-01] MEDS: NITROGLYCERIN/D5W 100 MCG/ML BTL ONE (20:44)
[2023-06-01] MEDS: STAT IV Infusion **Titration per Protocol STA (20:44)
[2023-06-01 21:15] LABS: Base Excess ABG 8.2 mEq/L (-9-1.8); HCO3 ABG 34 mmol/L (19-24); Oxygen Saturation ABG 97.9 % (90-95); PCO2 ABG 53 mmHg (35-46); PO2 ABG 210 mmHg (80-95); pH ABG 7.42 (7.35-7.45)
[2023-06-01 21:17] LABS: Allen Test Pos (Pos)
[2023-06-01 21:27] LABS: Reticulocyte % 1.74 % (0.50-2.00); Reticulocytes # 0.04 10^6/uL (0.020-0.100)
[2023-06-01 21:48] LABS: Estimated Average Glucose 111 mg/dl; Hemoglobin A1C 5.5 % (4.5-5.6)
[2023-06-01 21:51] LABS: Partial Thromboplastin Time 29 Seconds (21-31)
[2023-06-01 22:05] LABS: Troponin I High Sensitivity 380.1 pg/ml (0-20)
[2023-06-01 22:06] LABS: Folate (Folic Acid),Ser orPlas > 22.30 ng/ml (>5.38)
[2023-06-01 22:07] LABS: Vitamin B12 717 pg/ml (180-914)
--- NOTE | 2023-06-01 22:18 | History & Physical Report ---
Date of Service June 01, 2023 Assessment & Plan (1) Acute hypoxemic respiratory failure: Plan: Acute hypoxemic, hypercapnic respiratory failure Underlying COPD/pulm hypertension/nocturnal hypoxemia Multifactorial: Iatrogenic pneumothorax of right, recent thoracentesis for recurrent right pleural effusion yesterday; status post emergent chest tube placement at the ER Fluid overload, incomplete dialysis today, history ESRD on HD Troponin elevation secondary to above hypertension, stable valvular heart disease (moderate MS/TR, mild MR TTE 2023) prostate cancer on Lupron Acute on chronic anemia, hemoglobin drop from baseline, no obvious source of bleed Hyperglycemia rule out DM ongoing tobacco abuse PCU Supplemental O2 Recheck VBG Pulmonary consult re: pneumothorax right status post CTT Lasix dosed for renal function Nephrology consult Re: Dialysis management Follow troponin TTE for progression Anemia workup, transfuse PRBC if hemoglobin less than 7 and or for symptomatic anemia Check hemoglobin A1c Nicotine replacement therapy as needed DVT prophylaxis. Heparin subcu Full code for now as per , Ms. Eliana Rowe. She requests updates from providers through [id number]. (Patient made aware of DNR directive documented in patient's outpatient record. She would like to discuss this with patient once he is more awake.) Total critical care time was 50 minutes. Text document was generated using [employer] voice recognition software. It may contain grammatical or spelling errors. Kindly contact undersigned for clarification of any documentation item in question. History of Present Illness Chief Complaint: Worsening shortness of breath Primary Care Provider: Edgar Gamble MD History obtained from patient, family, and records. Limited history from patient secondary to obtunded state. Medical history significant for hypertension, valvular heart disease (moderate MS/TR, mild MR TTE 2023), pulmonary hypertension, COPD, recurrent right pleural effusion, nocturnal hypoxemia on home O2 at night, ESRD on HD, prostate cancer on Lupron, history of hydronephrosis, chronic anemia (baseline hemoglobin of 10), ongoing tobacco abuse. Last confinement January 2022 for shortness of breath secondary to missed dialysis and atypical pneumonia. Patient has had right pleural effusion since January 2022 admission. Periodic outpatient ultrasound-guided thoracenteses done [place] [facility] since last year as per specialist recommendation. Pleurx catheter placement decision withheld due to infrequent nature of pleural fluid recurrence as per recent [facility] master of ceremonies note from 2 weeks ago. Past pleural fluid analysis showed lymphocytic exudative fluid with negative cultures and cytology suggestive of reactive mesothelial cells. Patient underwent ultrasound-guided right thoracentesis yesterday at [facility]. 900 mL of clear yellow fluid was collected as per report. Patient looked uncomfortable and short of breath at home after procedure as per . No cough or chest pain symptoms. Needing oxygen even before bedtime as per which is unusual for him. Patient refused ER evaluation. No abdominal pain or bleeding concerns as per . Incomplete hemodialysis at [facility] today as per due to patient discomfort. O2 sats 80s. Dialysis nurse recommended ER evaluation if symptoms did not improve. Patient called EMS upon arrival at home after dialysis due to worsening symptoms. O2 sats noted to be 60s. BiPAP initiated at patient's home. Patient brought to ER for evaluation. Emergent chest tube placed done at the ER with note of right-sided pneumothorax on x-ray. Patient currently obtunded post IV Ativan administration at the ER. 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 Allergies Allergy/AdvReac Type Severity Reaction Status Date / Time pantoprazole Allergy Unknown HIVES Verified 06/01/23 19:59 Home Medications Medication Instructions Recorded Confirmed Type calcium acetate(phosphat bind) 667 2,001 mg PO TIDM 03/02/18 06/01/23 History mg capsule atenolol 50 mg tablet 50 mg PO HS 03/16/18 06/01/23 History amlodipine 5 mg tablet 5 mg PO QAM 02/17/22 06/01/23 History citalopram 10 mg tablet 10 mg PO HS 02/17/22 06/01/23 History cholecalciferol (vitamin D3) 50 50 mcg PO DAILY 02/18/22 06/01/23 History mcg (2,000 unit) tablet (Vitamin D3) epoetin beta, methoxy peg 100 100 mcg IV .SELECTED DATES 02/18/22 06/01/23 History mcg/0.3 mL injection syringe (Mircera) ferric pyrophosphate citrate 27.2 See Rx Instructions .Route .COMPLEX 02/18/22 06/01/23 History mg iron/5 mL soln for hemodialysate (Triferic) protein supplement See Rx Instructions .Route .COMPLEX 02/18/22 06/01/23 History albuterol sulfate 90 mcg/actuation 2 puff inhalation Q4 PRN 06/01/23 06/01/23 History aerosol inhaler (Ventolin HFA) cough,SOB,wheezing leuprolide acetate (6 month) 45 mg 45 mg IM .EVERY 6 MONTHS 06/01/23 06/01/23 History intramuscular syringe kit (Lupron Depot) torsemide 100 mg tablet 100 mg PO UD 06/01/23 06/01/23 History vitamin B comp no.3-folic acid 1 1 tab PO DAILY 06/01/23 06/01/23 History mg-vit C 60 mg-biotin 300 mcg tablet (Gill-Farzana Rx) Past Med/Surg History Medical History (Updated 06/02/23 @ 03:53 by Tejinder Akhtar MD) AV fistula left arm Permanent central venous catheter in place Tobacco use Chronic anemia Chronic indwelling [place] catheter Obstruction of nephrostomy tube Admitted for this 11/2017 along with hypertensive urgency HTN (hypertension) Was treated for hypertensive urgency at [facility] 11/2017 Prostate cancer Currently in remission. On Leupron injections. CKD (chronic kidney disease), stage V DIALYSIS 3 X WEEK LOCK HAVEN PA (//MON) VIA PERMA CATH Bladder stones Urinary retention Hyperkalemia On a K restricted diet Surgical History History of surgery PLACEMENT OF NEPHROSTOMY TUBE Family History Other Breast cancer Lung cancer No pertinent family history Stomach cancer Social History Smoking Status: Current every day smoker Tobacco Type: Cigarettes Cigarettes Per Day: 2 packs a week; Second Hand Exposure: No; Do You Dip or Chew Tobacco: No; Hx Alcohol Use: No Hx Substance Use: No Preferred Language: Honduran Communication Ability: Effective Visual Impairment: No Limitations Jet Operator Required: No Beliefs That Will Affect Care: None marital status: Current Living Situation: Spouse Current Living Situation Comment: Home Feels Safe at Home: Yes Safety Concerns: Feels Safe At This Time Assistive Devices: Denture - Upper, Denture - Lower, Glasses, Hearing Aid - Bilateral, Oxygen - at Night and Oxygen - Continuous Review of Systems Review of Systems: Could not be reliably obtained secondary to obtunded state Physical Exam Physical Exam: GENERAL: Obtunded, chronically ill, no respiratory distress SKIN: Pallor, warm HEENT: Pale palpebral conjunctivae, no ptosis, dry buccal mucosa, nasal cannula in place NECK : Supple, no tenderness CHEST : Decreased breath sounds, chest tube in place, right chest wall tenderness HEART : RRR, no obvious murmurs ABDOMEN: no distention, nontender EXTREMITIES : No LE swelling/tenderness, no other conspicuous deformities noted NEUROLOGIC : Obtunded, no facial asymmetry, gait and stance not assessed Results & Data Results & Data Vital Signs (Past 12 Hours) Vital Signs Temp Pulse Resp BP Pulse Ox O2 Del Method O2 Flow Rate 06/01/23 22:01 73 06/01/23 21:18 94 Nasal Cannula 3 06/01/23 21:15 75 25 H 114/80 96 Nasal Cannula 3 06/01/23 21:15 114/80 06/01/23 21:12 98 Nasal Cannula 4 06/01/23 21:00 75 24 117/75 100 Non-rebreather 15 06/01/23 21:00 117/75 06/01/23 20:45 75 22 114/75 100 Non-rebreather 15 06/01/23 20:30 74 20 113/72 100 Non-rebreather 06/01/23 20:15 74 21 110/72 100 Non-rebreather 15 06/01/23 20:00 108/69 100 Non-rebreather 06/01/23 19:55 118/79 100 Non-rebreather 06/01/23 19:45 84 23 85/55 L 100 Non-rebreather 15 06/01/23 19:30 90 25 H 108/61 100 Non-rebreather 15 06/01/23 19:15 91 H 28 H 130/81 100 Non-rebreather 15 06/01/23 19:05 95 H 23 100 06/01/23 19:04 100 Non-rebreather 15 06/01/23 19:00 97 H 27 H 100 06/01/23 19:00 141/76 H 06/01/23 18:55 96 H 27 H 100 06/01/23 18:50 96 H 28 H 100 Nebulizer 15 06/01/23 18:45 36.7 C 06/01/23 18:45 92 H 21 100 Non-rebreather 15 06/01/23 18:45 120/83 06/01/23 18:40 98 H 24 100 Non-rebreather 15 06/01/23 18:38 Non-rebreather 06/01/23 18:35 102 H 28 H 100 Non-rebreather 15 06/01/23 18:31 106 H 25 H 100 Non-rebreather 15 06/01/23 18:31 141/80 H 06/01/23 18:30 103 H 23 100 Non-rebreather 15 06/01/23 18:25 101 H 26 H 99 Non-rebreather 15 06/01/23 18:20 102 H 34 H 98 Non-rebreather 15 06/01/23 18:19 102 H 32 H 100 06/01/23 18:17 102 H 29 H 96 06/01/23 18:17 129/85 06/01/23 18:15 104 H 36 H 154/89 H 100 BiPAP 06/01/23 18:13 103 H FiO2 06/01/23 22:01 06/01/23 21:18 06/01/23 21:15 06/01/23 21:15 06/01/23 21:12 06/01/23 21:00 06/01/23 21:00 06/01/23 20:45 06/01/23 20:30 06/01/23 20:15 06/01/23 20:00 06/01/23 19:55 06/01/23 19:45 06/01/23 19:30 06/01/23 19:15 06/01/23 19:05 06/01/23 19:04 06/01/23 19:00 06/01/23 19:00 06/01/23 18:55 06/01/23 18:50 06/01/23 18:45 06/01/23 18:45 06/01/23 18:45 06/01/23 18:40 06/01/23 18:38 06/01/23 18:35 06/01/23 18:31 06/01/23 18:31 06/01/23 18:30 06/01/23 18:25 06/01/23 18:20 06/01/23 18:19 40 06/01/23 18:17 06/01/23 18:17 06/01/23 18:15 06/01/23 18:13 Laboratory Results Laboratory Results WBC 11.63 K/ul (4.8-10.8) H 06/01/23 18:20 RBC 2.69 M/uL (4.70-6.10) L 06/01/23 18:20 Hgb 9.0 g/dl (14.0-18.0) L 06/01/23 18:20 Hct 26.3 % (42.0-52.0) L 06/01/23 18:20 MCV 97.8 fL (80.0-100.0) 06/01/23 18:20 MCH 33.5 pg (25.0-34.0) 06/01/23 18:20 MCHC 34.2 g/dL (32.0-36.0) 06/01/23 18:20 RDW Std Deviation 45.1 fL (36.4-46.3) 06/01/23 18:20 RDW Coeff of Stacy 12.8 % (11.5-14.5) 06/01/23 18:20 Plt Count 230 K/uL (130-400) 06/01/23 18:20 MPV 9.6 fL (9.4-12.4) 06/01/23 18:20 Immature Gran % (Auto) 0.9 % 06/01/23 18:20 Neut % (Auto) 86.2 % 06/01/23 18:20 Lymph % (Auto) 6.9 % 06/01/23 18:20 Turner % (Auto) 4.8 % 06/01/23 18:20 Eos % (Auto) 0.8 % 06/01/23 18:20 Baso % (Auto) 0.4 % 06/01/23 18:20 Reticulocyte % (Auto) 1.74 % (0.50-2.00) 06/01/23 18:20 Neut # (Auto) 10.02 K/uL (1.40-6.50) H 06/01/23 18:20 Lymph # (Auto) 0.80 K/uL (1.20-3.40) L 06/01/23 18:20 Turner # (Auto) 0.56 K/uL (0.11-0.59) 06/01/23 18:20 Eos # (Auto) 0.09 K/uL (0.00-0.50) 06/01/23 18:20 Baso # (Auto) 0.05 K/uL (0.00-0.20) 06/01/23 18:20 Reticulocyte # 0.040 10^6/uL (0.020-0.100) 06/01/23 18:20 Immature Gran # (Auto) 0.11 K/uL (0.01-0.20) 06/01/23 18:20 APTT 29 Seconds (21-31) 06/01/23 21:03 PTT Ratio 1.0 06/01/23 21:03 ABG pH 7.42 (7.35-7.45) 06/01/23 21:03 ABG pCO2 53 mmHg (35-46) H 06/01/23 21:03 ABG pO2 210 mmHg (80-95) H 06/01/23 21:03 ABG HCO3 34 mmol/L (19-24) H 06/01/23 21:03 ABG O2 Saturation 97.9 % (90-95) H 06/01/23 21:03 ABG Base Excess 8.2 mEq/L (-9-1.8) H 06/01/23 21:03 Steffen Test Pos (Pos) 06/01/23 21:03 VBG pH 7.31 (7.36-7.41) L 06/01/23 18:20 VBG pCO2 65 mmHg (38-50) H 06/01/23 18:20 VBG pO2 63 mmHg 06/01/23 18:20 VBG HCO3 33 mmol/L 06/01/23 18:20 VBG O2 Saturation 90.9 % 06/01/23 18:20 VBG Base Excess 4.4 mEq/L 06/01/23 18:20 Oxygen Given 15 L 06/01/23 21:03 Sodium 136 mmol/L (136-145) 06/01/23 18:20 Potassium 3.8 mmol/L (3.5-5.1) 06/01/23 18:20 Chloride 93 mmol/L (98-107) L 06/01/23 18:20 Carbon Dioxide 32 mmol/L (21-32) 06/01/23 18:20 Anion Gap 11 (3-11) 06/01/23 18:20 BUN 25 mg/dl (6-23) H 06/01/23 18:20 Creatinine 3.42 mg/dl (0.6-1.4) H 06/01/23 18:20 Est Cr Clr Drug Dosing 13.9 ml/min 06/01/23 18:20 Est GFR ( Amer) 18.5 ml/min 06/01/23 18:20 Est GFR (Non-Af Amer) 16.0 ml/min 06/01/23 18:20 BUN/Creatinine Ratio 7.3 (10-20) L 06/01/23 18:20 Glucose 237 mg/dl (70-99(Fasting)) H 06/01/23 18:20 Estimat Average Glucose 111 mg/dl 06/01/23 21:03 Hemoglobin A1c 5.5 % (4.5-5.6) 06/01/23 21:03 Lactate 1.0 mmol/L (0.4-2.0) 06/01/23 21:03 Calcium 9.0 mg/dl (8.6-10.3) 06/01/23 18:20 Total Bilirubin 0.6 mg/dl (0.2-1.0) 06/01/23 18:20 AST 18 U/L (13-39) 06/01/23 18:20 ALT 15 U/L (7-52) 06/01/23 18:20 Alkaline Phosphatase 73 U/L (34-104) 06/01/23 18:20 Troponin I High Sens 380.1 pg/ml (0-20) H* D 06/01/23 20:37 B-Natriuretic Peptide 3197 pg/ml (0-100) H 06/01/23 18:20 Total Protein 7.4 gm/dl (6.0-8.3) 06/01/23 18:20 Albumin 3.6 gm/dl (3.4-5.0) 06/01/23 18:20 Globulin 3.8 gm/dl (2.5-4.0) 06/01/23 18:20 Albumin/Globulin Ratio 0.9 (0.9-2) 06/01/23 18:20 Vitamin B12 717 pg/ml (180-914) 06/01/23 21:03 Folate > 22.30 ng/ml (>5.38) 06/01/23 21:03 Procalcitonin 0.42 ng/ml (0-0.5) 06/01/23 18:20 Urine Color Yellow 06/01/23 19:00 Urine Appearance Cloudy (Clear) A 06/01/23 19:00 Urine pH >= 9.0 (4.5-7.5) H 06/01/23 19:00 Ur Specific [place] 1.011 (1.000-1.030) 06/01/23 19:00 Urine Protein 3+ (Negative) H 06/01/23 19:00 Urine Glucose (UA) Trace (Negative) H 06/01/23 19:00 Urine Ketones Negative (Negative) 06/01/23 19:00 Urine Blood 1+ (Negative) H 06/01/23 19:00 Urine Nitrite Negative (Negative) 06/01/23 19:00 Urine Bilirubin Negative (Negative) 06/01/23 19:00 Urine Urobilinogen Negative (Negative) 06/01/23 19:00 Ur Leukocyte Esterase 3+ (Negative) H 06/01/23 19:00 Urine WBC (Auto) >30 /hpf (0-5) H 06/01/23 19:00 Urine RBC (Auto) 0-4 /hpf (0-4) 06/01/23 19:00 U Hyaline Cast (Auto) 1-5 /lpf (0-5) 06/01/23 19:00 U Epithel Cells (Auto) >30 /lpf (0-5) H 06/01/23 19:00 Urine Bacteria (Auto) Negative (Negative) 06/01/23 19:00 Urine Yeast Not Reportable 06/01/23 19:00 Adenovirus (PCR) Not Detected (NotDetected) 06/01/23 18:44 B. pertussis DNA (PCR) Not Detected (NotDetected) 06/01/23 18:44 B.parapertussis DNA PCR Not Detected (NotDetected) 06/01/23 18:44 C. pneumoniae DNA (PCR) Not Detected (NotDetected) 06/01/23 18:44 Coronavirus OC43 (PCR) Not Detected (NotDetected) 06/01/23 18:44 Coronavirus HKU1 (PCR) Not Detected (NotDetected) 06/01/23 18:44 Coronavirus 229E (PCR) Not Detected (NotDetected) 06/01/23 18:44 SARS-CoV-2 (PCR) Not Detected (NotDetected) 06/01/23 18:44 Coronavirus NL63 (PCR) Not Detected (NotDetected) 06/01/23 18:44 Human Metapneumovir PCR Not Detected (NotDetected) 06/01/23 18:44 Influenza Type A (PCR) Not Detected (NotDetected) 06/01/23 18:44 Influenza Type B (PCR) Not Detected (NotDetected) 06/01/23 18:44 M. pneumoniae (PCR) Not Detected (NotDetected) 06/01/23 18:44 Parainfluenza 1 (PCR) Not Detected (NotDetected) 06/01/23 18:44 Parainfluenza 2 (PCR) Not Detected (NotDetected) 06/01/23 18:44 Parainfluenza 3 (PCR) Not Detected (NotDetected) 06/01/23 18:44 Parainfluenza 4 (PCR) Not Detected (NotDetected) 06/01/23 18:44 RSV (PCR) Not Detected (NotDetected) 06/01/23 18:44 Entero/Rhino (PCR) Not Detected (NotDetected) 06/01/23 18:44 Chest x-ray: 1. Moderate size right pneumothorax which appears loculated, as described above. Small right pleural effusion. 2. Interstitial thickening and alveolar opacities within the lungs. The findings could reflect pneumonia or pulmonary edema. 3. Moderate cardiomegaly. Diagnostic Findings EKG as per my interpretation : Rate 105, sinus tachycardia, LAD, LAFB, T wave abnormalities lateral leads
[2023-06-01] MEDS ORDERED: PROMETHAZINE HCL 6.25 MG in SODIUM CHLORIDE 0.9% 50 ML IV PRN (22:24)
[2023-06-01] MEDS ORDERED: traMADol HCL 50 MG TABLET PO PRN (22:25)
[2023-06-01] MEDS: FUROSEMIDE 10 MG/ML 10 ML VIAL IV STA (23:04)
[2023-06-01] MEDS: ALBUT/IPRATROP 3MG/0.5MG NEB 3 ML VIAL NEB STA (23:06)
[2023-06-02 01:14] LABS: Ferritin 1174.9 ng/ml (8-388)
[2023-06-02 06:20] LABS: Basophils # (auto) 0.04 K/uL (0.00-0.20); Basophils % (auto) 0.6 %; Eosinophils # (auto) 0.09 K/uL (0.00-0.50); Eosinophils % (auto) 1.3 %; Hematocrit (blood only) 23.4 % (42.0-52.0); Hemoglobin 7.9 g/dl (14.0-18.0); Immature Granulocytes # (auto) 0.02 K/uL (0.01-0.20); Immature Granulocytes % (auto) 0.3 %; Lymphocytes # (auto) 1.07 K/uL (1.20-3.40); Mean Corpuscular Hemoglobin 32.9 pg (25.0-34.0); Mean Corpuscular Hgb Conc 33.8 g/dL (32.0-36.0); Mean Corpuscular Volume 97.5 fL (80.0-100.0); Monocytes # (auto) 0.55 K/uL (0.11-0.59); Monocytes % (auto) 8.2 %; Neutrophils # (auto) 4.93 K/uL (1.40-6.50); Neutrophils % (auto) 73.6 %; Platelet Count 178 K/uL (130-400); RDW Coefficient of Variation 12.8 % (11.5-14.5); RDW Standard Deviation 45.5 fL (36.4-46.3)
[2023-06-02] MEDS: HEPARIN SOD 5,000 UNIT/0.5 ML VIAL SQ SCH (06:22)
[2023-06-02 06:25] LABS: Partial Thromboplastin Ratio 1.1; Partial Thromboplastin Time 32 Seconds (21-31)
[2023-06-02 06:43] LABS: BUN Creatinine Ratio 7.6 (10-20); Calcium 9.2 mg/dl (8.6-10.3); Creatinine Clr Calc Pharmacy 10.7 ml/min; Est GFR (African American) 13.5 ml/min; Est GFR (Non-African American) 11.6 ml/min; Potassium 4.6 mmol/L (3.5-5.1)
[2023-06-02 06:48] LABS: RBC Morphology Unremarkable
[2023-06-02] MEDS: LEVALBUTEROL 1.25 MG/3 ML NEB NEB STA (07:10)
[2023-06-02] MEDS: IPRATROPIUM BROMIDE NEB SOLN 0.02% 0.5MG/2.5ML VIAL INH STA (07:10)
[2023-06-02] MEDS: hydrOXYzine HCl 10 MG TAB PO STA (07:18)
[2023-06-02] MEDS: FUROSEMIDE 40 MG/4 ML VIAL IV ONE (07:25)
[2023-06-02] MEDS ORDERED: LEVALBUTEROL HCL 0.63 MG/3 ML NEB NEB PRN (07:31)
[2023-06-02] MEDS: LABETALOL HCL IV 5 MG/ML 20ML IV ONE (07:53)
--- NOTE | 2023-06-02 07:55 | Hospitalist Progress Note ---
Date of Service June 02, 2023 Assessment & Plan (1) Acute hypoxemic respiratory failure: Plan: Acute hypoxemic, hypercapnic respiratory failure Pulmonary edema/Volume overload Loculated bibasilar pneumothorax--Iatrogenic In setting of COPD/Pulm hypertension/nocturnal hypoxemia/recurrent right pleural effusion Patient underwent ultrasound-guided right thoracentesis at [facility] on 05/31/23 --CXR:Moderate size right pneumothorax which appears loculated, as described above. Small right pleural effusion. Interstitial thickening and alveolar opacities within the lungs. The findings could reflect pneumonia or pulmonary edema. Moderate cardiomegaly. --Repeat CXR:Cardiomegaly and emphysema with evidence of congestive failure. Bilateral opacities could represent multifocal pneumonia and/or pulmonary edema. Correlate clinically. A chest tube at the right lung base is unchanged in position and a small residual right apical pneumothorax is similar to today's earlier examination. Right larger than left pleural effusions with dependent consolidation. --S/P Right pigtail catheter placement in ED --Appreciate critical care input --Received IV Lasix --Continue supplemental oxygen as needed --Nephrology consulted as well to help with dialysis Hypertensive urgency Likely situational Received IV labetalol Continue amlodipine, atenolol Monitor BP Elevated troponin Demand ischemia secondary to hypoxia, hypertensive urgency in setting of end- stage renal disease --ECHO: Mild concentric LVH. Left ventricle wall motion is normal. EF 55%. Aortic valve is mildly calcified. Mild valvular aortic stenosis. Grade 1 diastolic dysfunction. Appreciate cardiology input Abnormal urinalysis/Possible UTI Urine culture growing gram-negative Empirically will start on Rocephin ESRD Normally on Monday schedule Appreciate nephrology input Plan for extra dialysis for 3 hours today Monitor volume status Valvular heart disease ECHO as above Continue home medications Prostate cancer on Lupron Anemia of chronic disease No obvious bleeding issues Monitor CBC Ongoing tobacco abuse Counseled to quit smoking DVT Px: Heparin SQ Code Status Full code Admission and Anticipated Discharge Date Admission Date: June 01, 2023 Subjective Patient is seen and examined at bedside this morning Patient complains of shortness of breath associated with nausea and feels anxious Was diaphoretic during my encounter Code purple was called this morning, was noted to be having hypertensive urgency and chest x-ray consistent with congestive change Blood pressure improved with IV labetalol Also received a dose of IV Lasix this morning Updated patient's over the phone Discussed with ICU team, plan to be transferred to ICU for further care Review of Systems Review of Systems: All systems reviewed & are unremarkable except as noted in Subjective Physical Exam Physical Exam: Physical Exam: Vitals signs as noted above General Appearance:Thin, frail, mild distress, elderly Head: normocephalic, Atraumatic Eyes: normal inspection, EOMI Neck: supple, Trachea midline Respiratory/Chest: Normal breath sounds, B/L mild crackles, +R chest Tube Cardiovascular: S1, S2, + murmur Abdomen/GI:Soft, Non tender, Bowel sounds present Extremities/Musculoskeletal:normal inspection, no edema, AV fistula Neurologic/Psych:AAOX3, grossly no focal neurological deficits Skin: normal color, warm Results & Data Results & Data Vital Signs (Past 12 Hours) Vital Signs Pulse Pulse Resp BP BP Pulse Ox Pulse Ox 06/02/23 07:10 110 H 26 H 93 06/02/23 07:02 104 H 06/02/23 04:31 82 16 152/87 H 95 06/02/23 02:21 06/02/23 01:00 84 26 H 126/76 94 06/01/23 23:53 78 06/01/23 23:30 81 24 126/78 99 06/01/23 23:30 100 06/01/23 23:24 80 16 126/76 100 06/01/23 23:09 78 22 126/76 100 06/01/23 23:00 77 24 126/76 100 06/01/23 22:47 78 22 138/83 100 06/01/23 22:01 73 06/01/23 21:18 94 06/01/23 21:15 75 25 H 114/80 96 06/01/23 21:15 114/80 06/01/23 21:12 98 06/01/23 21:00 75 24 117/75 100 06/01/23 21:00 117/75 06/01/23 20:45 75 22 114/75 100 06/01/23 20:30 74 20 113/72 100 06/01/23 20:15 74 21 110/72 100 06/01/23 20:00 108/69 100 O2 Del Method O2 Flow Rate 06/02/23 07:10 Oxymask 11 06/02/23 07:02 06/02/23 04:31 Nasal Cannula 2 04/05/24 02:21 Nasal Cannula 2 06/02/23 01:00 Nasal Cannula 2 06/01/23 23:53 06/01/23 23:30 06/01/23 23:30 06/01/23 23:24 Nasal Cannula 4 06/01/23 23:09 Nasal Cannula 4 06/01/23 23:00 Nasal Cannula 4 06/01/23 22:47 Nasal Cannula 4 06/01/23 22:01 06/01/23 21:18 Nasal Cannula 3 06/01/23 21:15 Nasal Cannula 3 06/01/23 21:15 06/01/23 21:12 Nasal Cannula 4 06/01/23 21:00 Non-rebreather 15 06/01/23 21:00 06/01/23 20:45 Non-rebreather 15 06/01/23 20:30 Non-rebreather 15 06/01/23 20:15 Non-rebreather 15 06/01/23 20:00 Non-rebreather 15 Laboratory Results Short CBC 06/01/23 06/02/23 06/02/23 Range/Units 18:20 05:44 11:56 WBC 11.63 H 6.70 8.10 (4.8-10.8) K/ul Hgb 9.0 L 7.9 L 7.6 L (14.0-18.0) g/dl Hct 26.3 L 23.4 L 22.8 L (42.0-52.0) % Plt Count 230 178 175 (130-400) K/uL BMP 06/01/23 06/02/23 18:20 05:44 Sodium 136 136 Potassium 3.8 4.6 D Chloride 93 L 97 L Carbon Dioxide 32 32 BUN 25 H 34 H Creatinine 3.42 H 4.45 H D Glucose 237 H 82 Calcium 9.0 9.2 Liver Function 06/01/23 Range/Units 18:20 Total Bilirubin 0.6 (0.2-1.0) mg/dl AST 18 (13-39) U/L ALT 15 (7-52) U/L Alkaline Phosphatase 73 (34-104) U/L Albumin 3.6 (3.4-5.0) gm/dl Urine 06/01/23 Range/Units 19:00 Urine Color Yellow Urine Appearance Cloudy A (Clear) Urine pH >= 9.0 H (4.5-7.5) Ur Specific [place] 1.011 (1.000-1.030) Urine Protein 3+ H (Negative) Urine Glucose (UA) Trace H (Negative)
--- NOTE | 2023-06-02 07:55 | XRay Report ---
XR chest 1V portable CLINICAL HISTORY: difficulty breathing COMPARISON STUDY: Chest radiograph June 01, 2023 6:14 PM. FINDINGS: There has been interval placement of a right basilar pleural catheter within the basilar co mponent of the pneumothorax. A moderate sized right pneumothorax appear similar size to prior exam. I nterstitial thickening and bilateral opacities are again noted. Left midlung opacity has slightly pro gressed. Cardiomegaly is unchanged. There is no left pneumothorax. Right basilar opacity persists. Th ere is emphysema. IMPRESSION: 1. Interval placement of a right pleural catheter within the basilar component of the pneumothorax. M oderate size right pneumothorax, similar in size. 2. Interstitial thickening and bilateral airspace opacities. Left midlung airspace opacity is slightl y progressed. The findings could reflect pneumonia or pulmonary edema. 3. Emphysema. ACT 112: Negative or not required by law. Electronically signed by: Harvey Johnson M.D. 06/02/2023 7:54 AM
[2023-06-02] MEDS: LABETALOL HCL IV 5 MG/ML 20ML IV STA (08:10)
--- NOTE | 2023-06-02 08:26 | XRay Report ---
SINGLE VIEW CHEST CLINICAL HISTORY: Dyspnea FINDINGS: 2 AP, portable, upright chest radiographs are compared to study dated 06/01/2023 and correlat ed with chest CT dated 02/18/2022. The heart is enlarged and noting atherosclerotic calcification of the thoracic. There is pulmonary vascular congestion. Bilateral airspace opacities likely represent i nterstitial edema. Emphysema and chronic interstitial thickening is somewhat previous. A chest tube i s again seen at the right lung base. This appears to been repositioned. There are right larger than l eft pleural effusions with dependent consolidation. A pneumothorax at the lateral right apex is again noted. This is decreased in size are previous. There is at least 13 mm of pleural separation. No pne umothorax is seen on the left. The skeletal structures are osteopenic. There are chronic/healed left- sided rib fractures. IMPRESSION: 1. Cardiomegaly and emphysema with evidence of congestive failure. 2. Bilateral opacities could represent multifocal pneumonia and/or pulmonary edema. Correlate clinica lly. 3. A chest tube at the right lung base has likely been repositioned. There is a small residual right apical pneumothorax. This has decreased in size from yesterday. 4. Right larger than left pleural effusions with dependent consolidation. ACT 112: Negative or not required by law. Electronically signed by: Pelon Bonilla M.D. 06/02/2023 8:23 AM
[2023-06-02] MEDS: METOPROLOL TARTRATE 1 MG/ML VIAL IV STA (08:39)
[2023-06-02] MEDS: CALCIUM ACETATE 667 MG CAP/TAB PO SCH (09:01)
[2023-06-02 09:07] LABS: iSTAT Allen Test Pass; iSTAT Art Bld Gas pCO2 Correct 55 mmHg (35-46); iSTAT Art Bld Gas pH Corrected 7.379 (7.35-7.45); iSTAT Arterial Blood Gas HCO3 32 meg/L (19-24); iSTAT Arterial Blood Gas pCO2 55 mmHg (35-46); iSTAT Arterial Blood Gas pH 7.38 (7.35-7.45); iSTAT Arterial Blood Gas pO2 77 mmHg (80-95); iSTAT Arterial Blood Gas pO2 C 77; iSTAT Carbon Dioxide 34 mmol/L (24-31); iSTAT FiO2 50 %; iSTAT Hematocrit 23 % (42-52); iSTAT Hemoglobin 7.8 g/dl (14.0-18.0); iSTAT Potassium 4.5 mmol/L (3.3-5.0); iSTAT Site R Radial; iSTAT Sodium 135 mmol/L (135-144)
[2023-06-02] MEDS: FAMOTIDINE 20MG IV PUSH 20 MG/5 ML SYR IV STA (10:44)
--- NOTE | 2023-06-02 10:46 | Critical Care Consultation ---
Date of Consultation June 02, 2023 Assessment & Plan (1) Acute hypoxemic respiratory failure: (2) Pulmonary edema: (3) Pneumothorax: (4) ESRD (end stage renal disease) on dialysis: (5) Hypertensive urgency: Plan Medically complex 78-year-old male with a history of end-stage renal disease on hemodialysis, right nephrostomy tube due to obstructive stones, hypertension and diastolic heart failure who presented to the hospital due to iatrogenic pneumothorax related to thoracentesis in [place] on Monday and CHF. Neurologic: Analgesics and sedation: No significant issues at present. Avoid sedating medications given tenuous respiratory status. He does have a history of anxiety and received a dose of Vistaril and Ativan overnight. Pulmonary: Continue BiPAP for the time being given his pulmonary edema. Can likely trial him off BiPAP later today as his fluid status improves. Right pigtail catheter in place due to loculated basilar pneumothorax. Suction increased to -40 cm H2O. Repeat chest x-ray ordered and is pending. Patient has a history of recurrent thoracentesis due to CHF on the right. Cardiovascular: Continue antihypertensive regimen from home. Blood pressure better controlled now that his anxiety has improved. Prior echo results noted with an EF of 55 to 60%. He has a history of aortic valve sclerosis and mild to moderate mitral regurgitation. There is also severe tricuspid regurgitation noted. Troponins have been trending upwards likely related to demand ischemia. Patient with worsening anemia of unclear etiology. I am reluctant to start him on heparin infusion at this time given lack of chest pain. Will consult cardiology. Gastrointestinal: Will initiate Pepcid 20 mg daily. No active signs of bleeding. N.p.o. for the time being given need for BiPAP. Renal: Will consult nephrology for history of end-stage renal disease and pulm edema. Defer diuretics to nephrology. He has a right nephrostomy tube that does put out urine. Infectious disease: No clear signs of infectious etiology at this time. Hematologic: Patient with progressively worsening anemia of unclear etiology. Potentially related to end-stage renal disease. No signs of active bleeding. Mildly serosanguineous drainage from the right chest tube noted. Platelet count unremarkable. Hold chemoprophylaxis for VTE at this time. Endocrine: Maintain euglycemia. VTE prophylaxis: SCD CODE STATUS: Full Family at bedside: updated at bedside Disposition: Patient can likely downgrade to PCU status later today. I have personally spent 44 minutes of critical care time in the direct management of this patient. This is a life/limb threatening event. This includes time spent evaluating patient, direct bedside care, chart review, placing orders, interpretation of diagnostic studies, discussion with consultants, patient, and family members, as well as other required patient management activities. This time is exclusive of all separately billable procedures, and teaching time and separate from and in addition to any other critical care service time. Thank you for allowing us to participate in the care of this patient. History of Present Illness Reason for Consultation: Hypoxemic respiratory failure due to congestive heart failure and pneumothorax Attending Physician: Vraun Reyes MD History of Present Illness 78-year-old male with a history of diastolic heart failure, end-stage renal disease on hemodialysis, nephrostomy tube on the right and hypertension who presented to the ER last night due to worsening shortness of breath. Patient had a thoracentesis in [place] on Monday and the next day developed worsening shortness of breath. On x-ray in the ER he was found to have a loculated right basilar pneumo and right upper lobe pneumothorax. Pigtail catheter was placed by the ER with improvement of the pneumothorax. He has had some serosanguineous drainage from the pigtail catheter. This morning the patient became more tachypneic and was placed on BiPAP. He was ultimately transferred to the ICU for closer monitoring. He appears much more comfortable and denies any shortness of breath while on BiPAP there is a very intermittent air leak from the chest tube when the patient coughs. I increased the suction to -40 cm H2O. Patient was also profoundly hypertensive on arrival to the ICU and systolic blood pressures have improved with as needed antihypertensive medications. Nephrology was consulted given his history of end-stage renal disease. Allergies Allergy/AdvReac Type Severity Reaction Status Date / Time pantoprazole Allergy Unknown HIVES Verified 06/01/23 19:59 Home Medications Medication Instructions Recorded Confirmed Type calcium acetate(phosphat bind) 667 2,001 mg PO TIDM 03/02/18 06/01/23 History mg capsule atenolol 50 mg tablet 50 mg PO HS 03/16/18 06/01/23 History amlodipine 5 mg tablet 5 mg PO QAM 02/17/22 06/01/23 History citalopram 10 mg tablet 10 mg PO HS 02/17/22 06/01/23 History cholecalciferol (vitamin D3) 50 50 mcg PO DAILY 02/18/22 06/01/23 History mcg (2,000 unit) tablet (Vitamin D3) epoetin beta, methoxy peg 100 100 mcg IV .SELECTED DATES 02/18/22 06/01/23 History mcg/0.3 mL injection syringe (Mircera) ferric pyrophosphate citrate 27.2 See Rx Instructions .Route .COMPLEX 02/18/22 06/01/23 History mg iron/5 mL soln for hemodialysate (Triferic) protein supplement See Rx Instructions .Route .COMPLEX 02/18/22 06/01/23 History albuterol sulfate 90 mcg/actuation 2 puff inhalation Q4 PRN 06/01/23 06/01/23 History aerosol inhaler (Ventolin HFA) cough,SOB,wheezing leuprolide acetate (6 month) 45 mg 45 mg IM .EVERY 6 MONTHS 06/01/23 06/01/23 History intramuscular syringe kit (Lupron Depot) torsemide 100 mg tablet 100 mg PO UD 06/01/23 06/01/23 History vitamin B comp no.3-folic acid 1 1 tab PO DAILY 06/01/23 06/01/23 History mg-vit C 60 mg-biotin 300 mcg tablet (Gill-Farzana Rx) Patient History Medical History (Updated 06/02/23 @ 10:40 by Trung Marroquin MD) Hypertensive urgency AV fistula left arm Permanent central venous catheter in place Tobacco use Chronic anemia Chronic indwelling Gamboa catheter Obstruction of nephrostomy tube Admitted for this 11/2017 along with hypertensive urgency HTN (hypertension) Was treated for hypertensive urgency at [facility] 11/2017 Prostate cancer Currently in remission. On Leupron injections. CKD (chronic kidney disease), stage V DIALYSIS 3 X WEEK ELENA PALMA (//MON) VIA PERMA CATH Bladder stones Urinary retention Hyperkalemia On a K restricted diet Surgical History History of surgery PLACEMENT OF NEPHROSTOMY TUBE Family History Other Breast cancer Lung cancer No pertinent family history Stomach cancer Social History Smoking Status: Current every day smoker Tobacco Type: Cigarettes Cigarettes Per Day: 2 packs a week; Second Hand Exposure: No; Do You Dip or Chew Tobacco: No; Hx Alcohol Use: No Hx Substance Use: No Preferred Language: Ghanaian Communication Ability: Effective Visual Impairment: No Limitations Coordinate Measuring Machine Programmer Required: No Beliefs That Will Affect Care: None marital status: Current Living Situation: Spouse Current Living Situation Comment: Home Feels Safe at Home: Yes Safety Concerns: Feels Safe At This Time Assistive Devices: Denture - Upper, Denture - Lower, Glasses, Hearing Aid - Bilateral, Oxygen - at Night and Oxygen - Continuous Review of Systems Review of Systems: All systems reviewed & are unremarkable except as noted in HPI & below Physical Exam Physical Exam: Constitutional: Patient appears to be of their stated age. Patient in mild distress. BiPAP mask in place. Eyes: Pupils are equal round and reactive to light. Conjunctivae are normal. Anicteric sclera. Ears nose, mouth and throat: Mallampati class 2. Normal posterior oropharynx. Uvula is midline. Neck: Trachea is midline. Visual inspection is normal. Respiratory: Diffuse crackles. Mildly tachypneic. Cardiovascular: Regular rate and rhythm. No murmurs. No edema. Gastrointestinal: Normal bowel sounds, soft, nontender and nondistended. No hepatosplenomegaly noted. Musculoskeletal: No cyanosis. Patient is able to move all extremities. Strength is 5 out of 5 in the upper and lower extremities. Skin: No rashes, warm dry and intact. Neurologic: No obvious focal neurological deficits seen. Psychiatric: Alert and oriented x3 with a euthymic affect. Results & Data Results & Data Vital Signs (Past 12 Hours) Vital Signs Pulse Pulse Resp BP BP Pulse Ox Pulse Ox 06/02/23 08:39 71 06/02/23 08:39 71 06/02/23 08:00 90 29 H 94 06/02/23 07:10 110 H 26 H 93 06/02/23 07:02 104 H 06/02/23 04:31 82 16 152/87 H 95 06/02/23 02:21 06/02/23 01:00 84 26 H 126/76 94 06/01/23 23:53 78 06/01/23 23:30 81 24 126/78 99 06/01/23 23:30 100 06/01/23 23:24 80 16 126/76 100 06/01/23 23:09 78 22 126/76 100 06/01/23 23:00 77 24 126/76 100 06/01/23 22:47 78 22 138/83 100 O2 Del Method O2 Flow Rate FiO2 06/02/23 08:39 06/02/23 08:39 06/02/23 08:00 50 06/02/23 07:10 Oxymask 11 06/02/23 07:02 06/02/23 04:31 Nasal Cannula 2 06/02/23 02:21 Nasal Cannula 2 06/02/23 01:00 Nasal Cannula 2 06/01/23 23:53 06/01/23 23:30 06/01/23 23:30 06/01/23 23:24 Nasal Cannula 4 06/01/23 23:09 Nasal Cannula 4 06/01/23 23:00 Nasal Cannula 4 06/01/23 22:47 Nasal Cannula 4 Coding Level of Care Code 14354 CRITICAL CARE 1ST 30-74M Diagnoses Acute hypoxemic respiratory failure J96.01 Pulmonary edema J81.1 Pneumothorax J93.9 ESRD (end stage renal disease) on dialysis N18.6; Z99.2 Hypertensive urgency I16.0
--- OUTSIDE RECORDS SUMMARY | 2023-06-02 11:43 | External Medical Summary | Summary of Care ---
Author Name Unknown Organization [facility] Address [address] [facility] [place] [address] Phone [phone] Care Team Providers Care Car Repairer Apprentice Name Role Phone Edgar Gibbs MD Primary Care P rovider Reason for Visit * Reason Onset Date Comments Medication Management 05/11/2023 Encounter Details Date Type Department Care Team (Late st Contact Info) Description 05/11/2023 Telephone [facility] [address] [facility] [place] [address] Pako Ramos MD [address] [facility] [place] [address] Medication Management Allergies Active Allergy Reactions Criticality Noted Date Comments Latex 07/19/2019 Pantoprazole Sodium Edema face/lips/tongue High 04/0 02/2014 documented as of this encounter (statuses as of 05/11/2023) Medications Medication Sig Dispensed Refills Start Date End Date Status Cholecalciferol 2000 units Capsule Take 1 Capsule by mouth in the morning. 30 Cap 3 03/28/2017 Active Calcium Acetate, Phos Binder, 667 MG TABSIndications:Kidn ey disease, chronic, stage V (GFR under 15 ml/min) (HCC) take 2 pills 3 x daily 180 Tab 11 10/26/2018 Active Sodium Chloride Flush (NORMAL SALINE FLUSH) 0.9 % SOLN injection FLUSH ONCE DAILY WITH 10ml 300 mL 1 03/12/2019 Active Leuprolide Acetate (3 Month) 22.5 MG Subcutaneous Kit (Eligard) Inject 22.5 mg under the skin. Every 3 months 0 11/18/2020 Active Incruse Ellipta 62.5 MCG/ACT Inhalation Aerosol Powder Breath Activated (umeclidinium [place])Indications: Chronic obstructive pulmonary disease, unspecified COPD type (HCC) Inhale 1 Puff by mouth in the morning. 30 Each 11 03/02/2022 Active Citalopram Hydrobromide 10 MG Oral Tablet (CeleXA) TAKE 1 TABLET BY MOUTH ONCE DAILY AT BEDTIME 30 Tablet 5 05/09/2022 Active Atenolol 50 MG Oral Tablet (Tenormin) TAKE 1 TABLET BY MOUTH ONCE DAILY AT BEDTIME 90 Tablet 1 11/22/2022 Active Nephro-Farzana 0.8 MG Oral Tablet TAKE ONE TABLET BY MOUTH ONCE DAILY 90 Tablet 3 11/22/2022 Active Ventolin HFA 108 (90 Base) MCG/ACT Inhalation Aerosol SolutionIndications: COPD exacerbation (HCC) INHALE TWO PUFFS BY MOUTH EVERY 4 HOURS NEEDED FOR COUGH, SHORTNESS OF BREATH, OR WHEEZING 18 g 5 01/20/2023 Active Additional Information Patient not taking.Reported on 04/12/2023 LORazepam 0.5 MG Oral Tablet (Ativan)Indications: Panic attack as reaction to stress Take 1 Tablet by mouth every 8 hours as needed for Anxiety. 30 Tablet 0 03/15/2023 Active amLODIPine Besylate 5 MG Oral Tablet (Norvasc) TAKE 1 TABLET BY MOUTH ONCE DAILY IN THE MORNING 90 Tablet 2 04/04/2023 Active Torsemide 100 MG Oral Tablet (Demadex) Take 1 Tablet by mouth in the morning. 90 Tablet 3 05/11/2023 Active documented as of this encounter (statuses as of 05/11/2023) Active Problems Problem Noted Date Diagnosed Date COPD, group C, by GOLD 2017 classification 01/09 Overview: Per COPD GOLD Classification Pleural effusion, right 01/02/2023 Tobacco user 08/27/2021 Bladder stones 08/27/2021 DNR (do not resuscitate) 01/04/2021 ESRD (end stage renal disease) on dialysis 01/04 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 09/20/2018 Dialysis patient 02/06/2018 Hydronephrosis, right 07/02/2017 Prostate cancer 03/08/2017 Kidney disease, chronic, stage V (GFR under 15 m l/min) 06/15/2015 Overview: Per CKD protocol #1 HTN, goal below 140/90 07/23/2014 Chronic anemia 05/06/2014 documented as of this encounter (statuses as of 05/11/2023) Resolved Problems Problem Noted Date Diagnosed Date Resolved Date Chronic obstructive pulmonary disease 03/02/2022 01/12/2023 Overview: Per COPD GOLD Classification Atypical pneumonia 03/02/2022 3 Demand ischemia 03/02/2022 06/03/2022 Hypoxemia 03/02/2022 06/03/2022 Chronic indwelling Gamboa catheter 08/27/2021 06/03/[address] venous catheter in place 08/27/2021 06/03/2022 Encounter for attention to o ther artificial openings of urinary tract 08/27/2021 06/03/2022 CKD (chronic kidney disease) stage 4, GFR 15-29 ml/min 05/06/2015 06/19/2015 Overview: Per CKD protocol #1 Hyperkalemia 11/07/2014 12/27/2016 Metabolic acidosis 11/07/2014 7 Prostate cancer 09/02/2014 12/27/2016 Cancer Staging:Clinical: T4 - Unsigned Other chronic cystitis 08/06/201412/27 Overview: Related to chronic indwelling catheter. Treat only when symptomatic. CKD (chronic kidney disease) stage 5, GFR less than 15 ml/min 07/23/2014 05/06/2015 Rash of face 06/04/2014 12/27/2016 Urinary retention 05/20/2014 12/27/2016 MELODY (acute kidney injury) 05/06/2014 Hypertension, essential 08/2015 Use of leuprolide acetate (Lupron) 12/27/2016 documented as of this encounter (statuses as of 05/11/2023) Immunizations Name Administration Dates Next Due COVID-19 mRNA, LNP-s, No Pre serve, 2-Dose Series (Vyyo) 01/19/2021,06/10/2020,05/20/2020 HEP B - Hepatitis B (Dialysis/Immumocomp Pt) 12/20/2018,07/21/2018,06/19/2018 PPD 05/03/2018 Pneumococcal Conjugate Vacci ne, 20-valent ([id number]) 03/16/2022 Pneumococcal Polysaccharide PPV23 (Pneumovax) 12/28/2017 Seasonal Influenza Virus Vac cine, Unspecified Formulation 12/22/2020,12/28/2018,12/27/2016,01/11 Seasonal Influenza, PF, 6 M & above, IM , (FluLaval or Fluzone) 12/22/2020,12/28/2018,12/27/2016 Seasonal Influenza, Quadriva lent Hd, 65+ Yrs 11/15/2022 Seasonal Influenza, Quadriva lent, No Preserve, IM 01/12/2016,01/06/2015 Seasonal Influenza, Quadriva lent,with Preserve, 3 yr & above, IM 12/04/2021,11/05/2020,11/13/2019,11/22 Seasonal Influenza, Split, I IV3, With Preserve, Inj 12/28/2018,12/27/2016,01/12/2016 TDAP (age 10 and older)(Boostrix) 12/28/2017 documented as of this encounter Social History Tobacco Use Types Packs/Day Years Used Date Smoking Tobacco: Every Day Cigarettes 0.3 60 Smokeless Tobacco: Never Alcohol Use Standard Drinks/Week Comments No 0 (1 standard drink = 0.6 oz pur e alcohol) PHQ-2 Answer Date Recorded PHQ Adult Total Score 0 06/03/2022 Hunger Vital Sign Answer Date Recorded Worried About Running Out of Food in the Last Ye ar Never true 10/26/2018 Ran Out of Food in the Last Year Never true 10/26/2018 Sex and Gender Information Value Date Recorded Sex Assigned at Male 04/23/2019 6:20 PM EST Gender Identity Male 04/23/2019 6:20 PM EST Sexual Orientation Straight 04/23/2019 6: 20 PM EST Job Start Date Occupation Industry Not on file Not on file Not on file documented as of this encounter Functional Status Functional Status Response Date of Assess ment Are you deaf or do you have serious difficulty h earing? No 04/15/2015 Are you blind or do you have serious difficulty seeing, even when wearing glasses? No 04/15/2015 Do you have serious difficul ty walking or climbing stairs? (5 years old or older) No 04/15/2015 Do you have difficulty dress ing or bathing? (5 years old or older) No 04/15/2015 Because of a physical, menta l, or emotional condition, do you have difficulty doing errands alone such as visiting a doctor s office or shopping? (15 years old or older) No 04/15/19 16 Cognitive Status Response Date of Assessm ent Because of a physical, menta l, or emotional condition, do you have serious difficulty concentrating, remembering, or making decisions? (5 years old or older) No 04/15/2015 documented as of this encounter Miscellaneous Notes * Telephone Encounter - Pako Ramos MD - 05/11/2023 12:48 PM EDT Even though ESRD patient want to see if he makes ore urine with torsemide 100 daily documented in this encounter Plan of Treatment Upcoming Encounters Date Type Department Care Team (Late st Contact Info) Description 05/17/2023 1:40 PM EDT Office Visit Pulmonary Medicine, [facility] [address] [facility] [place] [address] Tino [facility]apleton [facility] [address] [facility] [address] 06/07/2023 11:50 AM EDT Office Visit [facility] [address] [place] [id number] Edgar Gibbs MD [address] [place] [address] 07/19/2023 11:00 AM EDT Appointment Interventional Radiology [facility] [place] 1st Floor [address] [facility] [address] 10/25/2023 3:15 PM EDT Office Visit Urology, [facility] [address] [facility] [place] [address] Travon Canales MD [address] [facility] [address] [place] [address] 02/26/2024 9:30 AM EST Cardiac Studies Cardiac Studies, [facility] [address] [facility] [place] [address] Health Maintenance Due Date Last Done Comments Alpha-1 Antitrypsin 05[birth year]18/1963 Hepatitis C Screening 05/18/1963 *COPD SEVERITY VERIFIED BY PFT 03/05/2022 COVID-19 Vaccine ( season) 2022 01/19/2021, 06/10/2020, 05/20/2020 DISCUSS TOBACCO CESSATION (REFER TO SMARTSET #[id number]) 06/04/2023 06/03/2022 Depression Screening 06/04/2023 06/03/2022 O2 ASSESSMENT COMPLETED IN PAST YEAR FOR COPD 04/19/2024 04/19/2023 DTaP,Tdap,and Td Vaccines (2 - Td or Tdap) 12/29/2027 12/28/2017 Hepatitis B Completed 12/20/2018, 06/28, 06/19/2018 Pneumococcal Vaccine: 65+ Years Completed 03/16/2022, 12/28/2017 Influenza Vaccine (FLU shot) Completed 11/15/2022, 12/04/2021, 12/22/2020, Additional history exists GARDASIL-HPV IMMUNIZATION SERIES Aged Out No longer eligible based on patient's age to complete this topic MENINGOCOCCAL (MENACTRA/MENVEO) Aged Out No longer eligible based on patient's age to complete this topic Zoster Vaccines Discontinued documented as of this encounter Medical Devices Not on filedocumented as of this encounter Advance Directives Latest Code Status on File Code Status Date Activated Date Inactivated Comments Full Code 04/15/2015 4:40 PM 04/16/2015 5:24 PM This order reflects the patients wishes and were consensually agreed upon. Care Teams Car Repairer Apprentice Relationship Specialty Start Date End Date Edgar Gibbs MD [address] [place] [id number] PCP - General Family Medicine 07/03/20 documented as of this encounter
--- OUTSIDE RECORDS SUMMARY | 2023-06-02 11:43 | External Medical Summary | Summary of Care ---
Author Name Unknown Organization [facility] Address [address] [place] [address] Phone [phone] Care Team Providers Care Science Technicians Name Role Phone Edgar Gibbs MD Primary Care P rovider Encounter Details Date Type Department Care Team (Late st Contact Info) Description 05/31/2023 Telephone Interventional Radiology C, [facility] 1st Floor [address] [place] [address] MaroubancGeeta, ASSOCIATE DIRECTOR [address] [place] [address] Allergies Active Allergy Reactions Criticality Noted Date Comments Latex 07/19/2019 Pantoprazole Sodium Edema face/lips/tongue High 04/0 02/2014 documented as of this encounter (statuses as of 05/31/2023) Medications Medication Sig Dispensed Refills Start Date End Date Status Cholecalciferol 2000 units Capsule Take 1 Capsule by mouth in the morning. 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 Every 3 months 0 11/18/2020 Active Incruse Ellipta 62.5 MCG/ACT Inhalation Aerosol Powder Breath Activated (umeclidinium Eure)Indications: Chronic obstructive pulmonary disease, unspecified COPD type (HCC) Inhale 1 Puff by mouth in the morning. 30 Each 11 03/02/2022 Active Atenolol 50 MG Oral Tablet (Tenormin) [...] the morning. 90 Tablet 3 05/11/2023 Active Citalopram Hydrobromide 10 MG Oral Tablet (CeleXA) Take 1 Tablet by mouth every night at bedtime. 30 Tablet 5 05/29/2023 Active documented as of this encounter (statuses as of 05/31/2023) Active Problems Problem Noted Date Diagnosed Date [...] as of this encounter (statuses as of 05/31/2023) Resolved Problems Problem Noted Date Diagnosed Date [...] as of this encounter (statuses as of 05/31/2023) Immunizations Name Administration Dates Next Due COVID-19 mRNA, LNP-s, No Pre serve, 2-Dose Series ([employer]) 01/19/2021,06/10/2020,05/20/2020 HEP B - Hepatitis B (Dialysis/Immumocomp Pt) 12/20/2018,07/21/2018,06/19/2018 PPD 05/03/2018 Pneumococcal Conjugate Vacci ne, 20-valent ([id number]) 03/16/2022 Pneumococcal Polysaccharide PPV23 (Pneumovax) 12/28/2017 Seasonal [...] as of this encounter Miscellaneous Notes * Addendum Note - Tino Mcdowell MD - 05/31/2023 5:15 PM EDTAddended by: TINO MCDOWELL on: 05/31/2023 05:15 PM Modules accepted: Orders * Telephone Encounter - Tino Mcdowell MD - 05/31/2023 5:13 PM EDT We would advise patient to use 2 LPM oxygen continuously for now. Reassessment 6 minute walk test will be done within next 2 weeks To assess need for changing ongoing oxygen prescription.. * Telephone Encounter - Geeta Rai CRNP - 05/31/2023 11:[address] Mcdowell's office to discuss pt's oxygen saturations. Post- thoracentesis laying in bed, he is satting 86% on room air. He was ordered nocturnal oxygen on 05/08 which he has not yet received.May with Dr. Mcdowell's office assured me it is being processed through [facility]. I relayedI am concerned pt may require [id number] or PRN oxygen use during the day in addition to nocturnal oxygen given his current saturations. With 2 L N/C his saturations improved to 96%. Approximately 30 minutes post-procedure, oxygen was turned off and he returned to 86-88% on room air. documented in this encounter Plan of Treatment Upcoming Encounters Date Type Department Care Team (Late st Contact Info) Description 06/07/2023 11:50 AM EDT Office Visit [facility] [address] [place] [phone] Edgar Gibbs MD [address] [place] [address] 07/19/2023 11:00 AM EDT Appointment Interventional Radiology [facility], [facility] 1st Floor [address] [place] [address] 10/25/2023 3:15 PM EDT Office Visit Urology, [facility] [address] [facility] [place] [address] Travon Canales MD [address] [address] [place] [address] 12/06/2023 1:40 PM EDT Office Visit Pulmonary Medicine, [facility] [address] [facility] [place] [address] Tino Mcdowell MD [address] [place] [address] 02/26/2024 9:30 AM EST Cardiac Studies Cardiac Studies, [facility] [address] [facility] [place] [address] Scheduled Orders Name Type Priority Associated Diagnoses Orde r Schedule PULMONARY STRESS TESTING Procedures Routine COPD, group C, by GOLD 2017 classification (HCC) Expected: 06/01/2023, Expires: 06/29/2024 Health Maintenance Due Date Last Done Comments Alpha-1 Antitrypsin 05/18/1963 *COPD SEVERITY VERIFIED BY PFT 03/05/2022 COVID-19 Vaccine ( season) 2022 01/19/2021, 06/10/2020, 05/20/2020 DISCUSS TOBACCO CESSATION (REFER TO SMARTSET #3291) 06/04/2023 06/03/2022 Depression Screening 06/04/2023 06/03/2022 O2 ASSESSMENT COMPLETED IN PAST YEAR FOR COPD 05/30/2024 05/31/2023 DTaP,Tdap,and Td Vaccines (2 - Td or [...] Not on filedocumented as of this encounter Visit Diagnoses Diagnosis COPD, group C, by GOLD 2017 classification (HCC)- Primary documented in this encounter Advance Directives Latest Code Status on File Code Status Date Activated Date Inactivated Comments Full Code 04/15/2015 4:40 PM 04/16/2015 5:24 PM This order reflects the patients wishes and were consensually agreed upon. Care Teams Science Technicians Relationship Specialty Start Date End Date Edgar Gibbs MD [address] [place] [phone] PCP - General Family Medicine 07/03/20 documented as of this encounter
--- OUTSIDE RECORDS SUMMARY | 2023-06-02 11:43 | External Medical Summary | Summary of Care ---
Author Name Unknown Organization [facility] Address [address] [facility] [place] [address] Phone [phone] Care Team Providers Care Seat Pack Inspector Name Role Phone Edgar Clements MD Primary Care P rovider Reason for Visit * Reason Onset Date Comments Medication Refill 05/29/2023 Encounter Details Date Type Department Care Team ([facility] st Contact Info) Description 05/29/2023 Refill Family [address] [phone] Edgar Clements MD [address] [place] [phone] Allergies Active Allergy Reactions Criticality Noted Date Comments Latex 07/19/2019 Pantoprazole Sodium Edema face/lips/tongue High /02/2014 documented as of this encounter (statuses as of 05/29/2023) Medications Medication Sig Dispensed Refills Start Date End Date Status Cholecalciferol 2000 units Capsule Take 1 Capsule by mouth in the morning. 30 Cap 3 03/28/2017 Active Calcium Acetate, Phos Binder, 667 MG TABSIndications:Ki dney disease, chronic, stage V (GFR under 15 ml/min) ([facility]) take 2 pills 3 x daily 180 Tab 11 10/26/2018 Active Sodium Chloride Flush (NORMAL SALINE FLUSH) 0.9 % SOLN injection FLUSH ONCE DAILY WITH 10ml 300 mL 1 03/12/2019 Active Leuprolide Acetate (3 Month) 22.5 MG Subcutaneous Kit (EliAnimalvitaed) Inject 22.5 mg under the skin. Every 3 months 0 11/18/2020 Active Incruse Ellipta 62.5 MCG/ACT Inhalation Aerosol Powder Breath Activated (umeclidinium [place])Indication s:Chronic obstructive pulmonary disease, unspecified COPD type (HCC) [...] HFA 108 (90 Base) MCG/ACT Inhalation Aerosol SolutionIndication s:COPD exacerbation (HCC) INHALE TWO PUFFS BY MOUTH EVERY 4 HOURS NEEDED FOR COUGH, SHORTNESS OF BREATH, OR WHEEZING 18 g 5 01/20/2023 Active Additional Information Patient not taking.Reported on 04/12/2023 LORazepam 0.5 MG Oral Tablet (Ativan)Indication s:Panic attack as reaction to stress Take 1 [...] at bedtime. 30 Tablet 5 05/29/2023 Active Citalopram Hydrobromide 10 MG Oral Tablet (CeleXA) TAKE 1 TABLET BY MOUTH ONCE DAILY AT BEDTIME 30 Tablet 5 05/09/2022 Discontinue d(Refill) documented as of this encounter (statuses as of 05/29/2023) Active Problems Problem Noted Date Diagnosed Date [...] as of this encounter (statuses as of 05/29/2023) Resolved Problems Problem Noted Date Diagnosed Date Resolved Date Chronic obstructive pulmonary disease 03/02/2022 01/12/2023 Overview: Per COPD GOLD Classification Atypical pneumonia 03/02/2022 Demand ischemia 03/02/2022 06/03/2022 Hypoxemia 03/02/2022 06/03/2022 [...] as of this encounter (statuses as of 05/29/2023) Immunizations Name Administration Dates Next Due COVID-19 mRNA, LNP-s, No Pre serve, 2-Dose Series ([employer]) 01/19/2021,06/10/2020,05/20/2020 HEP B - Hepatitis B (Dialysis/Immumocomp Pt) 12/20/2018,07/21/2018,06/19/2018 PPD 05/03/2018 Pneumococcal Conjugate Vacci ne, 20-valent ([id number]) 03/16/2022 Pneumococcal Polysaccharide PPV23 (Pneumovax) 12/28/2017 Seasonal [...] encounter Miscellaneous Notes * Telephone Encounter - Liz Fabian RPh - 05/29/2023 10:26 AM EDTSigned Prescriptions: Disp Refills Citalopram Hydrobromide 10 MG Oral Tablet *30 Tab*5 Sig: Take 1 Tablet by mouth every night at bedtime. Authorizing Provider: EDGAR CLEMENTS Ordering User: LIZ FABIAN * Telephone Encounter - Sandy Ellis CPhT - 05/29/2023 10:22 AM EDT Please do high priority patient has only 1 left Did you pend patient's preferred pharmacy and medication before forwarding?yes Pharmacy: [facility] [employer] [facility] Pending Prescriptions: Disp Refills Citalopram Hydrobromide 10 MG Oral Tablet*30 Tab*5 Sig: Take 1 Tablet by mouth every night at bedtime. Last Visit: 02/10/2023 (in office), Visit date not found (telemedicine) Next Visit: 06/07/2023 If no future appointments scheduled, and last appointment is greater than a year ago, please schedule patient for a follow-up appointment Last date the medication was ordered: 05/09/2022 Is this request for a controlled substance?No Urine Drug Screen:No results found for this or any previous visit. Patient Phone Numbers Labs: Lab Results Component Value Date/Time CREAT 9.2 (H) 11/21/2022 01:37 PM CREAT 4.1 (H) 02/11/2020 12:16 PM POTASSIUM 5.1 11/21/2022 01:37 PM POTASSIUM 3.8 02/11/2020 12:16 PM LDLCALC 56 11/21/2022 01:37 PM LDLCALC 59 04/24/2014 07:42 AM ALT 97 (H) 11/21/2022 01:37 PM ALT 18 09/03/2014 01:20 PM documented in this encounter Plan of Treatment Upcoming Encounters Date Type Department Care Team (Late st Contact Info) Description 05/31/2023 11:00 AM EDT Hospital Encounter Interventional Radiology [facility] [place] 1st [address] [place] [address] 06/07/2023 11:50 AM EDT Office Visit [address] [phone] Edgar Clements MD [address] [place] [address] 07/19/2023 11:00 AM EDT Appointment Interventional Radiology [facility] [place], [facility] 1[address] [place] [address] 10/25/2023 3:15 PM EDT Office Visit Urology, [facility] [address] [facility] [place] [address] Travon Canales MD [address] [place] [address] [place] [address] 12/06/2023 1:40 PM EDT Office Visit Pulmonary Medicine, [facility] [address] [facility] [place] [address] Tino Stapleton MD [address] [place] [address] 02/26/2024 9:30 AM EST Cardiac Studies Cardiac Studies, [facility] [address] [facility] [place] [address] Health Maintenance Due Date Last Done Comments Alpha-1 Antitrypsin 05/18/1963 *COPD SEVERITY VERIFIED BY PFT 03/05/2022 COVID-19 Vaccine ( season) 2022 01/19/2021, 06/10/2020, 05/20/2020 DISCUSS TOBACCO CESSATION (REFER TO SMARTSET #3291) 06/04/2023 06/03/2022 Depression Screening 06/04/2023 06/03/2022 O2 ASSESSMENT COMPLETED IN PAST YEAR FOR COPD 05/16/2024 05/17/2023 DTaP,Tdap,and Td Vaccines (2 - Td or [...] and were consensually agreed upon. Care Teams Seat Pack Inspector Relationship Specialty Start Date End Date Edgar Clements MD [address] [place] [id number] PCP - General Family Medicine 07/03/20 documented as of this encounter
--- OUTSIDE RECORDS SUMMARY | 2023-06-02 11:43 | External Medical Summary | Summary of Care ---
Author Name Unknown Organization [facility] Address [address] [facility] [place] [address] Phone [phone] Care Team Providers Care Advertising Solicitor Name Role Phone Edgar Gibbs MD Primary Care P rovider Reason for Visit * Reason Comments Follow Up Here return pulm. Encounter Details Date Type Department Care Team (Latest Contact Info) Description 05/17/2023 1:40 PM EDT Office Visit Pulmonary Medicine, [facility] [address] [facility] [place] [phone] Tino Stapleton MD [address] [facility] [place] [address] Pleural effusion, right*; COPD, group C, by GOLD 2017 classification ([facility]); HTN, goal below 140/90; Prostate cancer ([facility]) Allergies Active Allergy Reactions Criticality Noted Date Comments Latex 07/19/2019 Pantoprazole Sodium Edema face/lips/tongue High 04/0 02/2014 documented as of this encounter (statuses as of 05/17/2023) Medications Medication Sig Dispensed Refills Start Date End Date Status Cholecalciferol 2000 units Capsule Take 1 Capsule by mouth in the morning. 30 Cap 3 03/28/2017 Active Calcium Acetate, Phos Binder, 667 MG TABSIndications:Kidn ey disease, chronic, stage V (GFR under 15 ml/min) ([facility]) take 2 pills 3 x daily 180 Tab 11 10/26/2018 Active Sodium Chloride Flush (NORMAL SALINE FLUSH) 0.9 % SOLN injection FLUSH ONCE DAILY WITH 10ml 300 mL 1 03/12/2019 Active Leuprolide Acetate (3 Month) 22.5 MG Subcutaneous Kit (Eligard) Inject 22.5 mg under the skin. Every 3 months 0 11/18/2020 Active Incruse Ellipta 62.5 MCG/ACT Inhalation Aerosol Powder Breath Activated (umeclidinium [place])Indications: Chronic obstructive pulmonary disease, unspecified COPD type [...] as of this encounter (statuses as of 05/17/2023) Active Problems Problem Noted Date Diagnosed Date [...] as of this encounter (statuses as of 05/17/2023) Resolved Problems Problem Noted Date Diagnosed Date [...] MELODY (acute kidney injury) 05/06/2014 Hypertension, essential /0 08/2015 Use of leuprolide acetate (Lupron) 12/27/2016 documented as of this encounter (statuses as of 05/17/2023) Immunizations Name Administration Dates Next Due COVID-19 mRNA, LNP-s, No Pre serve, 2-Dose Series (Pfizer) 01/19/2021,06/10/2020,05/20/2020 HEP B - Hepatitis B (Dialysis/Immumocomp Pt) 12/20/2018,07/21/2018,06/19/2018 PPD 05/03/2018 Pneumococcal Conjugate Vacci ne, 20-valent ([id number]) 03/16/2022 Pneumococcal Polysaccharide PPV23 (Pneumovax) 12/28/2017 Seasonal [...] on file documented as of this encounter Last Filed Vital Signs Vital Sign Reading Time Taken Comments Blood Pressure 148/72 05/17/2023 1:27 PM EDT Pulse 82 05/17/2023 1:27 PM EDT Temperature 36.6 C (97.9 F) 05/17/2023 1:27 PM ED T Respiratory Rate 16 05/17/2023 1:27 PM EDT Oxygen Saturation 93% 05/17/2023 1:27 PM EDT ra-rest Inhaled Oxygen Concentration - - Weight 58.5 kg (129 lb) 05/17/2023 1:27 PM EDT Height 160 cm (5' 3") 05/17/2023 1:27 PM EDT Body Mass Index 22.85 05/17/2023 1:27 PM EDT documented in this encounter Functional Status Functional Status Response [...] No 04/15/2015 documented as of this encounter Progress Notes * Tino Stapleton MD - 05/17/2023 1:23 PM EDT 05/17/2023 Pulmonary Medicine, [address] [place] [address] [id number] Matthew Rowe 1945 male 77 year old Attending Physician Documentation: 77-year-old male, 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 Since last evaluation, patient underwent ultrasound-guided thoracentesis at [facility] 04/19/2023. After discussion with care team, decision was made to withhold PleurX catheter placement due to relatively infrequent nature of pleural fluid recurrence. Patient describes steady respiratory symptoms status, compliant with Ventolin inhaler, unfortunately continues to smoke half pack daily. Compliant with HD treatments 3 times a week. Recently started on torsemide for worsening lower extremity edema, currently improving. Nocturnal oximetry study showed evidence of nocturnal desaturation. 2 L nasal cannula oxygen was prescribed for nighttime use. Patient reports that he has not heard from [employer] yet. Current bronchodilator regimen includes rare use of Ventolin inhaler. Denies purulent expectoration, high-grade fever, hemoptysis. Describes chronic fatigue and tiredness, relates to ESRD/HD status. Rest and exercise oximetry on today's visit showed desaturation on exertion. Patient tolerated 2 L nasal cannula oxygen and maintained adequate oxygen saturation while on 2 L nasal cannula. Physical examination significant for class 2 throat, right basilar dullness with egophony, scattered wheezing, loud systolic murmur, trace lower extremity edema and left upper extremity AV fistula status along with nonlateralizing Neuro examination. Pleural fluid cytology chemistry and microbiology results were reviewed. Overall pleural fluid pattern is consistent with lymphocytic exudative fluid with negative cultures and cytology suggestive ofreactive mesothelial cells. Diagnostic concerns include benign asbestos pleural effusions (BAPE), CHF, volume overload secondary to ESRD and hematologic malignancy risk. We agree with periodic drainage via ultrasound and follow-up. We will proceed with chest x-ray PA and lateral view and compare with March 2023 films. Nocturnal oximetry results and prescription for nighttime home oxygen was also discussed. Patient be followed up in Six months to reassess symptoms status and discuss further management plan. 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 Current BD Rx: Ventolin MDI Plan: CXR PA/Lat view O2 2 L with activity and q.h.s. Periodic chest x-ray monitoring for Thora eval Pulmonary clinic follow-up 6 months Maintain physical activity status Call with change in respiratory symptoms status Assessment Pleural effusion, right (Primary) COPD, group C, by GOLD 2017 classification (HCC) HTN, goal below 140/90 Prostate cancer (HCC) Follow Up: Return in about 6 months (around 11/17/2023) for Clinic Visit. 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 Current BD Rx: Ventolin MDI Plan: O2 2 L with activity setup Continue with 2 L oxygen q.h.s. Periodic chest x-r Follow Up: Return in about 6 months (around 11/17/2023) for Clinic Visit. | For: Clinic Visit | Check-out note: ay monitoring Pulmonary clinic follow-up 6 months Tino Stapleton MD Subjective CC: Chief Complaint Patient presents with Follow Up Here return pulm. HPI: There are no exam notes on file for this visit. Objective There were no vitals filed for this visit. Exam: Const: No signs of acute distress present. Head/Face: Normal on inspection. Eyes: Conjunctivae clear. Pupils equal round and reactive to light. ENMT: Oropharynx: No erythema, exudate or masses. Posterior pharynx is normal. Neck: Supple and symmetric. Resp: Respiratory examination as outlined above CV: Rate is regular. Rhythm is regular. No heart murmur appreciated. Extremities: No edema of the lower limbs bilaterally. Skin: Skin is warm and dry. Neuro: Coordination normal. No involuntary movement. Psych: Patient's attitude is cooperative. Mood is normal. Affect is normal. Tests reviewed with the patient: IR GENITORINARY NEPHRO/CYSTO/URETERAL Result Date: 04/19/2023 IMPRESSION: right Nephroureteral catheter check and exchange. Ultrasound-guided right thoracentesis. PLAN: Patient should return to IR in 3 months for routine maintenance catheter exchange. Thoracentesis p.r.n. symptomatic relief. IR CHEST THORACENTESIS Result Date: 04/19/2023 IMPRESSION: right Nephroureteral catheter check and exchange. Ultrasound-guided right thoracentesis. PLAN: Patient should return to IR in 3 months for routine maintenance catheter exchange. Thoracentesis p.r.n. symptomatic relief. IR CHEST THORACENTESIS Result Date: 03/09/2023 IMPRESSION: Successful ultrasound-guided right thoracentesis. PLAN: Follow-up as needed for repeat thoracentesis for symptom management. IR CHEST THORACENTESIS Result Date: 02/17/2023 IMPRESSION: Successful ultrasound-guided right thoracentesis. PLAN: Follow-up as needed for repeat thoracentesis for symptom management. I have personally reviewed this examination and agree with theresident/fellow physician's interpretation. IR CHEST THORACENTESIS Result Date: 02/01/2023 IMPRESSION: Successful ultrasound-guided right thoracentesis. PLAN: Fluid sent to lab for analysis.Final results pending. Follow-up as needed for repeat thoracentesis for symptom management. CT CHEST WO CONTRAST Result Date: 01/20/2023 IMPRESSION: 1. Moderate-sized right pleural effusion with partial compressive right lower lobe and right middle lobe atelectasis. 2. Mild COPD. 3. Extensive coronary artery calcifications. 4. Findings suggestive of prior granulomatous disease. THIS DOCUMENT HAS BEEN ELECTRONICALLY SIGNED BY RONY MEAD MD IR GENITORINARY NEPHRO/CYSTO/URETERAL Result Date: 01/08/2023 IMPRESSION: Successful right nephroureteral catheter check and exchange. PLAN: Patient should return to IR in 3 months for routine maintenance catheter exchange. I have personally reviewed this examination and agree with the resident/fellow physician's interpretation. XR CHEST 2 VIEWS Result Date: 01/07/2023 IMPRESSION: 1. Right pleural effusion unaltered since November 28. CT may be of benefit THIS DOCUMENT HAS BEEN ELECTRONICALLY SIGNED BY HAZEL CHESTER MD XR CHEST 2 VIEWS Result Date: 12/16/2022 IMPRESSION Opacity in the right mid to lower lung with pleural fluid. Recommend follow-up to resolution. Available Radiologic data was reviewed by me in PACS. The images were shown to the patient and findings were discussed with the patient. HOME MEDICATIONS: Torsemide 100 MG Oral Tablet (Demadex) amLODIPine Besylate 5 MG Oral Tablet (Norvasc) LORazepam 0.5 MG Oral Tablet (Ativan) Nephro-Farzana 0.8 MG Oral Tablet Citalopram Hydrobromide 10 MG Oral Tablet (CeleXA) Incruse Ellipta 62.5 MCG/ACT Inhalation Aerosol Powder Breath Activated (umeclidinium [place]) Leuprolide Acetate (3 Month) 22.5 MG Subcutaneous Kit (Eligard) Sodium Chloride Flush (NORMAL SALINE FLUSH) 0.9 % SOLN injection Calcium Acetate, Phos Binder, 667 MG TABS Cholecalciferol 2000 units Capsule Ventolin HFA 108 (90 Base) MCG/ACT Inhalation Aerosol Solution Atenolol 50 MG Oral Tablet (Tenormin) ROS: No reported history of Hemoptysis, Hematemesis, Melena No reported history of Dysuria, Hematuria, Flank Pain No reported history of chronic headache, seizures No reported history of Fall or trauma . No reported history of recent change in weight or appetite. Past Medical History: Diagnosis Date Hypertension, essential INFORMATION 03/2014 [facility]- kidney failure Pleural effusion Use of leuprolide acetate (Lupron) Past Surgical History: Procedure Laterality Date CYSTOSCOPY 07-08-2014 IR DRAINAGE CATHETER CHANGE Right 06/10/2015 CHANGE OF PERCUTANEOUS TUBE OR DRAINAGE CATHETER WITH XRAY AND CONTRAST MEDIUM performed by Gera Mcdaniel MD at [facility] IR DRAINAGE CATHETER CHANGE Right 08/24/2016 CHANGE OF PERCUTANEOUS TUBE OR DRAINAGE CATHETER WITH XRAY AND CONTRAST MEDIUM performed by Gera Mcdaniel MD at [facility] IR GENITORINARY NEPHRO/CYSTO/URETERAL 01/18/2019 IR GENITORINARY NEPHRO/CYSTO/URETERAL 04/01/2019 IR GENITORINARY NEPHRO/CYSTO/URETERAL 08/02/2019 IR GENITORINARY NEPHRO/CYSTO/URETERAL 12/13/2019 IR GENITORINARY NEPHRO/CYSTO/URETERAL 04/29/2020 IR GENITORINARY NEPHRO/CYSTO/URETERAL 08/19/2020 IR GENITORINARY NEPHRO/CYSTO/URETERAL 12/23/2020 IR GENITORINARY NEPHRO/CYSTO/URETERAL 04/14/2021 IR GENITORINARY NEPHRO/CYSTO/URETERAL 08/04/2021 IR GENITORINARY NEPHRO/CYSTO/URETERAL 12/10/2021 IR GENITORINARY NEPHRO/CYSTO/URETERAL 04/06/2022 IR GENITORINARY NEPHRO/CYSTO/URETERAL 08/15/2022 IR GENITORINARY NEPHRO/CYSTO/URETERAL 01/04/2023 IR GENITORINARY NEPHRO/CYSTO/URETERAL 04/19/2023 NONE Social History Socioeconomic History Marital status: Occupational History 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 No mold. Social Determinants of Health Food Insecurity: No Food Insecurity (10/26/2018) Hunger Vital Sign Worried About Running Out of Food in the Last Year: Never true Ran Out of Food in the Last Year: Never true Family History Problem Relation Age of Onset Stomach cancer Mother in her 80s COPD Father age 64 Parkinsonism Sister Lung cancer Sister Breast Cancer Sister breast Other (AAA) Sister Parkinsonism Sister COPD Sister Heart attack Brother Review of patient's allergies indicates: Allergen Reactions Pantoprazole Sodium Edema face/lips/tongue Latex documented in this encounter Nursing Notes * Romelia Clarke LPN - 05/17/2023 1:30 PM EDT Chief Complaint Patient presents with Follow Up Here return pulm. Interm History/Respiratory Symptoms Cough: yes. clear Hemoptysis: no Sinus Symptoms: no Hospitalizations: no ED Trips: no Triggers: pollen,laundry detergent, dust. Nocturnal: sleeps with head elevated. CPAP/BiPAP/O2: no Flu Vaccine: 2022 Pneumovax: 2018 Prevnar: 2022 COVID 19: x3. Travel Screening Question 05/17/2023 1:15 PM EDT - Filed by Patient Do you have any of the following new or worsening symptoms? Shortness of breath Have you recently been in contact with someone who was sick? No / Unsure Myc Visit Accident Related Question Question 05/17/2023 1:15 PM EDT - Filed by Patient Is this visit related to an accident? (i.e work, motor vehicle) No Mmrc Cat Question 05/17/2023 1:26 PM EDT - Filed by Patient When do you become breathless? (3) I stop for breath after walking about 100 yards or after a few minutes on level ground How frequently do you cough? (1) Do you have phlegm in your chest? (1) Is your chest tight? (0) - My chest does not feel tight at all How breathless do you become when walking up a hill or steps? (1) How limited are you doing activities at home? (2) How confident are you leaving home with your lung condition? (0) - I am confident leaving my home despite my condition How soundly do you sleep? (1) How much energy do you have? (3) Total MMRC Score (range: 0 - 4) 3 Total CAT Score (range: 0 - 40) 9 Copd Rescue Question 05/17/2023 1:26 PM EDT - Filed by Patient Have you used an antibiotic (e.g., azithromycin, doxycycline, augmentin) in the last 12 months because of your breathing or lung problem? Yes, once Have you added or increased the dose of a steroid (e.g., prednisone, solumedrol) in the last 12 months because of your breathing or lung problem? No Did you go to the ED, or were you hospitalized in the last 12 months because of your breathing or lung problem? No documented in this encounter Plan of Treatment Upcoming Encounters Date Type Department Care Team (Late st Contact Info) Description 06/07/2023 11:50 AM EDT Office Visit [address] [phone] Edgar Gibbs MD [address] [place], [place] [address] [address] 07/19/2023 11:00 AM EDT Appointment Interventional Radiology [facility] 1st Floor [address] [facility] [place], [place] [address] 10/25/2023 3:15 PM EDT Office Visit Urology, [facility] [address] [facility] [place] [address] Travon Canales MD [address] [place] [address] [place] [address] 12/06/2023 1:40 PM EDT Office Visit Pulmonary Medicine, [facility] [address] [facility] [place] [address] Tino Stapleton MD [address] [place] [address] 02/26/2024 9:30 AM EST Cardiac Studies Card[facility] Studies, [facility] [address] [facility] [place] [address] Pending Results Name Type Priority Associated Diagnoses Date /Time XR CHEST 2 VIEWS Medical Imaging Routine Pleural effusion, right COPD, group C, by GOLD 2017 classification (HCC) 05/17/2023 2:15 PM EDT Health Maintenance Due Date Last Done Comments [...] as of this encounter Visit Diagnoses Diagnosis Pleural effusion, right- Primary Unspecified pleural effusion COPD, group C, by GOLD 2017 classification (HCC) HTN, goal below 140/90 Unspecified essential hypertension Prostate cancer (HCC) Malignant neoplasm of prostate documented in this encounter Advance Directives Latest Code Status on File Code Status Date Activated Date Inactivated Comments Full Code 04/15/2015 4:40 PM 04/16/2015 5:24 PM This order reflects the patients wishes and were consensually agreed upon. Care Teams Advertising Solicitor Relationship Specialty Start Date End Date Edgar Gibbs MD [address] [place] [address] [place] [id number] PCP - General Family Medicine 07/03/20 documented as of this encounter
--- OUTSIDE RECORDS SUMMARY | 2023-06-02 11:43 | External Medical Summary | Summary of Care ---
Author Name Unknown Organization [facility] Address [address] [facility] [place] [address] Phone [phone] Care Team Providers Care Claim Taker Name Role Phone Edgar Gibbs MD Primary Care P rovider Encounter Details Date Type Department Care Team (Late st Contact Info) Description 05/23/2023 Result Scan Unspecified Department Pako Ramos MD [address] [facility] [address] <No scans attached> Allergies Active Allergy Reactions Criticality Noted Date Comments Latex 07/19/2019 Pantoprazole Sodium Edema face/lips/tongue High 02/2014 documented as of this encounter (statuses as of 05/29/2023) Medications Medication Sig Dispensed Refills Start Date End Date Status Cholecalciferol 2000 units Capsule Take 1 Capsule by mouth in the morning. 30 Cap 3 03/28/2017 Active Calcium Acetate, Phos Binder, 667 MG TABSIndications:Kidn ey disease, chronic, stage V (GFR under 15 ml/min) ([facility]) take 2 pills 3 x daily 180 Tab 11 10/26/2018 Active Sodium Chloride Flush (NORMAL SALINE FLUSH) 0.9 % SOLN injection FLUSH ONCE DAILY WITH 10ml 300 mL 1 03/12/2019 Active Leuprolide Acetate (3 Month) 22.5 MG Subcutaneous Kit (Eligard) Inject 22.5 mg under the skin. Every 3 months 0 11/18/2020 Active Incruse Ellipta 62.5 MCG/ACT Inhalation Aerosol Powder Breath Activated (umeclidinium [place])Indications: Chronic obstructive pulmonary disease, unspecified COPD type [...] mRNA, LNP-s, No Pre serve, 2-Dose Series (Manicube) 01/19/2021,06/10/2020,05/20/2020 HEP B - Hepatitis B (Dialysis/Immumocomp Pt) 12/20/2018,07/21/2018,06/19/2018 PPD 05/03/2018 Pneumococcal Conjugate Vacci ne, 20-valent ([id number]) 03/16/2022 Pneumococcal Polysaccharide PPV23 (Pneumovax) 12/28/2017 Seasonal [...] No 04/15/2015 documented as of this encounter Plan of Treatment Upcoming Encounters Date Type Department Care Team (Late st Contact Info) Description 05/31/2023 11:00 AM EDT Hospital Encounter Interventional Radiology [facility], [address] [facility] [address] [place] [address] 06/07/2023 11:50 AM EDT Office Visit [address] [phone] Edgar Gibbs MD [address] [place] [address] 07/19/2023 11:00 AM EDT Appointment Interventional Radiology [facility], [address] [facility] [address] [place] [address] 10/25/2023 3:15 PM EDT Office Visit Urology, [facility] [address] [facility] [place] [address] Travon Canales MD [address] [place] [address] [place] [address] 12/06/2023 1:40 PM EDT Office Visit Pulmonary Medicine, [facility] [address] [facility] [place] [address] Tino Stapleton MD [address] [facility] [place] [address] 02/26/2024 9:30 AM EST Cardiac Studies Cardiac Studies, [facility] [place] [address] Health Maintenance Due Date Last Done Comments [...] Not on filedocumented as of this encounter Procedures Procedure Name Priority Date/Time Associated Diagnosis Comments OUTSIDE LAB RESULTS 05/23/2023 documented in this encounter Results * OUTSIDE LAB RESULTS (05/23/2023) 05/23/2023 Pako Ramos MD LABORATORY documented in this encounter Advance Directives Latest Code Status on File Code Status Date Activated Date Inactivated Comments Full Code 04/15/2015 4:40 PM 04/16/2015 5:24 PM This order reflects the patients wishes and were consensually agreed upon. Care Teams Claim Taker Relationship Specialty Start Date End Date Edgar Gibbs MD [address] [place], [place] [address] [address] PCP - General Family Medicine 07/03/20 documented as of this encounter
--- OUTSIDE RECORDS SUMMARY | 2023-06-02 11:43 | External Medical Summary | Summary of Care ---
Author Name Unknown Organization [facility] Address [address] [facility] [place] [address] Phone [phone] Care Team Providers Care Field Crop Farm Worker Name Role Phone Edgar Gibbs MD Primary Care P rovider Reason for Visit * Reason Comments eRx-Medication Refill Encounter Details Date Type Department Care Team (Late st Contact Info) Description 05/13/2023 Refill Nephrology [address] [place] [address] Edgar Gibbs MD [address] [place] [address] Allergies Active Allergy Reactions Criticality Noted Date Comments Latex 07/19/2019 Pantoprazole Sodium Edema face/lips/tongue High 04/0 02/2014 documented as of this encounter (statuses as of 05/15/2023) Medications Medication Sig Dispensed Refills Start Date [...] Acetate (3 Month) 22.5 MG Subcutaneous Kit ([employer]) Inject 22.5 mg under the skin. Every 3 months 0 11/18/2020 Active Incruse Ellipta 62.5 MCG/ACT Inhalation Aerosol Powder Breath Activated (umeclidinium [place])Indications: Chronic obstructive pulmonary disease, unspecified COPD type [...] as of this encounter (statuses as of 05/15/2023) Active Problems Problem Noted Date Diagnosed Date [...] as of this encounter (statuses as of 05/15/2023) Resolved Problems Problem Noted Date Diagnosed Date [...] as of this encounter (statuses as of 05/15/2023) Immunizations Name Administration Dates Next Due COVID-19 mRNA, LNP-s, No Pre serve, 2-Dose Series ([employer]) 01/19/2021,06/10/2020,05/20/2020 HEP B - Hepatitis B (Dialysis/Immumocomp Pt) 12/20/2018,07/21/2018,06/19/2018 PPD 05/03/2018 Pneumococcal Conjugate Vacci ne, 20-valent ([id number]) 03/16/2022 Pneumococcal Polysaccharide PPV23 (Pneumovax) 12/28/2017 Seasonal [...] encounter Miscellaneous Notes * Telephone Encounter - Fan Lopez LPN - 05/15/2023 11:40 AM EDTRefused Prescriptions: Disp Refills Citalopram Hydrobromide 10 MG Oral Tablet *30 Tab*5 Sig: TAKE 1TABLET BY MOUTH ONCE DAILY AT BEDTIMERefused By: FAN LOPEZ for Refusal: Managed by another physician documented in this encounter Plan of Treatment Upcoming Encounters Date Type Department Care Team (Late st Contact Info) Description 05/17/2023 1:40 PM EDT Office Visit Pulmonary Medicine, [facility] [address] [facility] [place] [address] Tino Stapleton MD [address] [place] [address] 06/07/2023 11:50 AM EDT Office Visit [address] [place] [address] Edgar Gibbs MD 68 [place] [address] 07/19/2023 11:00 AM EDT Appointment Interventional Radiology [facility], [facility] 1st Floor [address] [place] [address] 10/25/2023 3:15 PM EDT Office Visit Urology, [facility] 132 [facility] [place] [address] Travon Canales MD 27 [facility] [address] [place] [address] 02/26/2024 9:30 AM EST Cardiac Studies Cardiac Studies, [facility] [address] [facility] [place] [address] Health Maintenance Due Date Last Done Comments Alpha-1 Antitrypsin 05[birth year]18/1963 Hepatitis C Screening 05/18/1963 *COPD SEVERITY VERIFIED BY PFT 03/05/2022 COVID-19 Vaccine ( season) 2022 01/19/2021, 06/10/2020, 05/20/2020 DISCUSS TOBACCO CESSATION (REFER TO SMARTSET #3296) 06/04/2023 06/03/2022 Depression Screening 06/04/2023 06/03/2022 O2 [...] and were consensually agreed upon. Care Teams Field Crop Farm Worker Relationship Specialty Start Date End Date Edgar Gibbs MD [address] [place] [phone] PCP - General Family Medicine 07/03/20 documented as of this encounter
--- OUTSIDE RECORDS SUMMARY | 2023-06-02 11:43 | External Medical Summary | Summary of Care ---
Author Name Unknown Organization [facility] Address [address] [facility] [place] [address] Phone [phone] Care Team Providers Care Cargo Broker Name Role Phone Edgar Gibbs MD Primary Care P rovider Encounter Details Date Type Department Care Team (Late st Contact Info) Description 05/04/2023 Result Scan Unspecified Department Pako Ramos MD [address] [facility] [address] <No scans attached> Allergies Active Allergy Reactions Criticality Noted Date Comments Latex 07/19/2019 Pantoprazole Sodium Edema face/lips/tongue High /02/2014 documented as of this encounter (statuses as of 05/08/2023) Medications Medication Sig Dispensed Refills Start Date End Date Status Cholecalciferol 2000 units Capsule Take 1 Capsule by mouth in the morning. 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 Every 3 months 0 11/18/2020 Active Incruse Ellipta 62.5 MCG/ACT Inhalation Aerosol Powder Breath Activated (umeclidinium [place])Indications: Chronic obstructive pulmonary disease, unspecified COPD type [...] THE MORNING 90 Tablet 2 04/04/2023 Active documented as of this encounter (statuses as of 05/08/2023) Active Problems Problem Noted Date Diagnosed Date [...] as of this encounter (statuses as of 05/08/2023) Resolved Problems Problem Noted Date Diagnosed Date [...] MELODY (acute kidney injury) 05/06/2014 Hypertension, essential 04/0 08/2015 Use of leuprolide acetate (Lupron) 12/27/2016 documented as of this encounter (statuses as of 05/08/2023) Immunizations Name Administration Dates Next Due COVID-19 mRNA, LNP-s, No Pre serve, 2-Dose Series ([employer]) 01/19/2021,06/10/2020,05/20/2020 HEP B - Hepatitis B (Dialysis/Immumocomp Pt) 12/20/2018,07/21/2018,06/19/2018 PPD 05/03/2018 Pneumococcal Conjugate Vacci ne, 20-valent ([id number]) 03/16/2022 Pneumococcal Polysaccharide PPV23 (Pneumovax) 12/28/2017 Seasonal [...] 1:40 PM EDT Office Visit Pulmonary Medicine, [facility] 132 [facility] [place] [address] Tino Stapleton MD [address] [place] [address] 06/07/2023 11:50 AM EDT Office Visit [facility] [address] [place] [address] Edgar Gibbs MD [address] [place] [address] 07/19/2023 11:00 AM EDT Appointment Interventional Radiology [facility], [facility] 1st Floor [address] [place] [address] 10/25/2023 3:15 PM EDT Office Visit Urology, [facility] 132 [facility] [place] [address] Travon Canales MD [address] [address] [place] [address] 02/26/2024 9:30 AM EST Cardiac Studies Cardiac Studies, [facility] 132 [facility] [place] [address] Health Maintenance Due Date Last Done Comments Alpha-1 Antitrypsin 05[birth year]18/1963 Hepatitis C Screening 05/18/1963 *COPD SEVERITY VERIFIED BY PFT 03/05/2022 COVID-19 Vaccine ( season) 2022 01/19/2021, 06/10/2020, 05/20/2020 DISCUSS TOBACCO CESSATION (REFER TO SMARTSET #9766) 06/04/2023 06/03/2022 Depression Screening 06/04/2023 06/03/2022 O2 [...] Date/Time Associated Diagnosis Comments OUTSIDE LAB RESULTS 05/04/2023 documented in this encounter Results * OUTSIDE LAB RESULTS (05/04/2023) 05/04/2023 Pako Ramos MD LABORATORY documented in this encounter Advance Directives Latest Code Status on File Code Status Date Activated Date Inactivated Comments Full Code 04/15/2015 4:40 PM 04/16/2015 5:24 PM This order reflects the patients wishes and were consensually agreed upon. Care Teams Cargo Broker Relationship Specialty Start Date End Date Edgar Gibbs MD [address] [place] [phone] PCP - General Family Medicine 07/03/20 documented as of this encounter
--- OUTSIDE RECORDS SUMMARY | 2023-06-02 11:43 | External Medical Summary | Summary of Care ---
Author Name Unknown Organization [facility] Address [address] [facility] [place] [address] Phone [phone] Care Team Providers Care Pantographer Name Role Phone Edgar Gibbs MD Primary Care P rovider Reason for Visit * Reason Onset Date Comments Oxygen Assessment 05/09/2023 NPO Encounter Details Date Type Department Care Team (Late st Contact Info) Description 05/09/2023 Telephone Pulmonary Medicine, [facility] 132 [facility] [place] [id number] Tino Stapleton MD [address] [facility] [place] [address] Oxygen Assessment (NPO) Allergies Active Allergy Reactions Criticality Noted Date Comments Latex 07/19/2019 Pantoprazole Sodium Edema face/lips/tongue High 04/0 02/2014 documented as of this encounter (statuses as of 05/09/2023) Medications Medication Sig Dispensed Refills Start Date End Date Status Cholecalciferol 2000 units Capsule Take 1 Capsule by mouth in the morning. 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 Every 3 months 0 11/18/2020 Active Incruse Ellipta 62.5 MCG/ACT Inhalation Aerosol Powder Breath Activated (umeclidinium [place])Indications: Chronic obstructive pulmonary disease, unspecified COPD type [...] as of this encounter (statuses as of 05/09/2023) Active Problems Problem Noted Date Diagnosed Date [...] as of this encounter (statuses as of 05/09/2023) Resolved Problems Problem Noted Date Diagnosed Date [...] as of this encounter (statuses as of 05/09/2023) Immunizations Name Administration Dates Next Due COVID-19 mRNA, LNP-s, No Pre serve, 2-Dose Series ([employer]) 01/19/2021,06/10/2020,05/20/2020 HEP B - Hepatitis B (Dialysis/Immumocomp Pt) 12/20/2018,07/21/2018,06/19/2018 PPD 05/03/2018 Pneumococcal Conjugate Vacci ne, 20-valent ([id number]) 03/16/2022 Pneumococcal Polysaccharide PPV23 (Pneumovax) 12/28/2017 Seasonal [...] encounter Miscellaneous Notes * Telephone Encounter - Tino Stapleton MD - 05/09/2023 2:49 PM EDT Your recent nocturnal pulse oximetry study showed episodes of significant drops in oxygen levels through the night. We would recommend use of oxygen therapy while sleeping at night. Prescription will be submitted to a [employer], who will be contacting you for set up home oxygen for nighttime use. Please contact the office with any additional questions. Sincerely Dr. Stapleton * Telephone Encounter - Sandrita Hurtado LPN - 05/09/2023 2:22 PM EDT Pt's NPO has been scanned into the chart. Please review and advise documented in this encounter Plan of Treatment Upcoming Encounters Date Type Department Care Team (Late st Contact Info) Description 05/17/2023 1:40 PM EDT Office Visit Pulmonary Medicine, [address] [place] [address] Tino Stapleton MD [facility] [address] [facility] [place] [address] 06/07/2023 11:50 AM EDT Office Visit Family Practice [facility] [address] [place] [phone] Edgar Gibbs MD 68 [facility] [place] [address] 07/19/2023 11:00 AM EDT Appointment Interventional Radiology [facility] 1st Floor [address] [place] [address] 10/25/2023 3:15 PM EDT Office Visit Urology, [facility] 132 [facility] [place] [address] Travon Canales MD 27 [facility] [address] [place] [address] 02/26/2024 9:30 AM EST Cardiac Studies Cardiac Studies, [facility] [address] Health Maintenance Due Date Last Done Comments [...] as of this encounter Visit Diagnoses Diagnosis Chronic respiratory failure with hypoxia (HCC)- Primary Chronic respiratory failure documented in this encounter Advance Directives Latest Code Status on File Code Status Date Activated Date Inactivated Comments Full Code 04/15/2015 4:40 PM 04/16/2015 5:24 PM This order reflects the patients wishes and were consensually agreed upon. Care Teams Pantographer Relationship Specialty Start Date End Date Edgar Gibbs MD [address] [place] [address] PCP - General Family Medicine 07/03/20 documented as of this encounter
--- OUTSIDE RECORDS SUMMARY | 2023-06-02 11:43 | External Medical Summary | Summary of Care ---
Author Name Unknown Organization [facility] Address [address] [place] [address] Phone [phone] Care Team Providers Care Residential Green Building Designer Name Role Phone Edgar Gibbs MD Primary Care P rovider Encounter Details Date Type Department Care Team (Late st Contact Info) Description 05/31/2023 Telephone Interventional Radiology C, [facility] 1st Floor [address] [place] [address] [employer], [employer] [address] [place] [address] Allergies Active Allergy Reactions Criticality [...] chronic, stage V (GFR under 15 ml/min) ([facility]) take 2 pills 3 x daily 180 Tab 11 10/26/2018 Active Sodium Chloride Flush (NORMAL SALINE FLUSH) 0.9 % SOLN injection FLUSH ONCE DAILY WITH 10ml 300 mL 1 03/12/2019 Active Leuprolide Acetate (3 Month) 22.5 MG Subcutaneous Kit (Eligard) Inject 22.5 mg under the skin. Every 3 months 0 11/18/2020 Active Incruse Ellipta 62.5 MCG/ACT Inhalation Aerosol Powder Breath Activated (umeclidinium [place])Indications: Chronic obstructive pulmonary disease, unspecified COPD type [...] mRNA, LNP-s, No Pre serve, 2-Dose Series ([employer]) 01/19/2021,06/10/2020,05/20/2020 HEP B - Hepatitis B (Dialysis/Immumocomp Pt) 12/20/2018,07/21/2018,06/19/2018 PPD 05/03/2018 Pneumococcal Conjugate Vacci ne, 20-valent ([id number]) 03/16/2022 Pneumococcal Polysaccharide PPV23 (Pneumovax) 12/28/2017 Seasonal [...] encounter Miscellaneous Notes * Telephone Encounter - Geeta Rai CRNP - 05/31/2023 11:[address] Stapleton's office to discuss pt's oxygen saturations. Post- thoracentesis laying in bed, he is satting 86% on room air. He was ordered nocturnal oxygen on 05/08 which he has not yet received.May with Dr. Stapleton's office assured me it is being processed through [email or web address]. I relayedI am concerned pt may require [id number] or PRN oxygen use during the day [...] Description 06/07/2023 11:50 AM EDT Office Visit [address] [phone] Edgar Gibbs MD [address] [place] [address] 07/19/2023 11:00 AM EDT Appointment Interventional Radiology [facility] [place] [place], [facility] 1st Floor [address] [place] [facility] [place] [address] 10/25/2023 3:15 PM EDT Office Visit Urology, [facility] 132 [facility] [place] [address] Travon Canales MD [address] [facility] [place] [address] [place] [address] 12/06/2023 1:40 PM EDT Office Visit Pulmonary Medicine, [facility] 132 [facility] [place] [address] Tino Stapleton MD [address] [place] [address] 02/26/2024 9:30 AM EST Cardiac Studies Cardiac Studies, [facility] 132 [facility] [place] [address] Health Maintenance Due Date Last Done Comments [...] and were consensually agreed upon. Care Teams Residential Green Building Designer Relationship Specialty Start Date End Date Edgar Gibbs MD [address] [place] [address] PCP - General Family Medicine 07/03/20 documented as of this encounter
--- OUTSIDE RECORDS SUMMARY | 2023-06-02 11:43 | External Medical Summary | Summary of Care ---
Author Name Unknown Organization [facility] Address [address] [facility] [place] [facility] [place] [address] Phone [phone] Care Team Providers Care Bariatric Physician Name Role Phone Edgar Gibbs MD Primary Care P rovider Reason for Visit * Precert (Within 10 days (routine)) - Authorized Specialty Diagnoses / Procedures Referred By Contac t Referred To Contact Radiology Diagnoses Pleural effusion, not elsewhere classified Procedures MD THORACENTESIS NEEDLE/CATH PLEURA W/IMAGING Sally Alvarez PA-C [address] [place] [address] Referral ID Status Reason Start Date Expiration Date V isits Requested Visits Authorized [id number] Authorized Precert 05/29/2023 02/21/2026 [id number] Encounter Details Date Type Department Care Team (Latest Contact Info) Description 05/31/2023 10:04 AM EDT - 05/31/2023 12:13 PM EDT Hospital Encounter Radiology Waiting Room [facility] 1st Floor [address] [facility] [place] [id number] Owen Louis MD [address] [place] [facility] [place] [address] Arrived Discharge Disposition: Home - Self Care Allergies Active Allergy Reactions Criticality Noted Date Comments Latex 07/19/2019 Pantoprazole Sodium Edema face/lips/tongue High 04/0 02/2014 documented as of this encounter (statuses as of 06/01/2023) Medications Medication Sig Dispensed Refills Start Date [...] Acetate (3 Month) 22.5 MG Subcutaneous Kit (MeFeedia) Inject 22.5 mg under the skin. Every 3 months 0 11/18/2020 Active Incruse Ellipta 62.5 MCG/ACT Inhalation Aerosol Powder Breath Activated (umeclidinium [place])Indications: Chronic obstructive pulmonary disease, unspecified COPD type ([facility]) Inhale 1 Puff by mouth in the morning. 30 Each 11 03/02/2022 Active Atenolol 50 MG Oral Tablet (Tenormin) TAKE 1 TABLET BY MOUTH ONCE DAILY AT BEDTIME 90 Tablet 1 11/22/2022 Active Nephro-Farzana 0.8 MG Oral Tablet TAKE ONE TABLET BY MOUTH ONCE DAILY 90 Tablet 3 11/22/2022 Active Ventolin HFA 108 (90 Base) MCG/ACT Inhalation Aerosol SolutionIndications: COPD exacerbation ([facility]) INHALE TWO PUFFS BY MOUTH EVERY 4 [...] as of this encounter (statuses as of 06/01/2023) Active Problems Problem Noted Date Diagnosed Date [...] as of this encounter (statuses as of 06/01/2023) Resolved Problems Problem Noted Date Diagnosed Date [...] as of this encounter (statuses as of 06/01/2023) Immunizations Name Administration Dates Next Due COVID-19 mRNA, LNP-s, No Pre serve, 2-Dose Series (Sykio) 01/19/2021,06/10/2020,05/20/2020 HEP B - Hepatitis B (Dialysis/Immumocomp Pt) 12/20/2018,07/21/2018,06/19/2018 PPD 05/03/2018 Pneumococcal Conjugate Vacci ne, 20-valent ([id number]) 03/16/2022 Pneumococcal Polysaccharide PPV23 (Pneumovax) 12/28/2017 Seasonal [...] Sign Reading Time Taken Comments Blood Pressure 151/79 05/31/2023 11:50 AM EDT Pulse 90 05/31/2023 12:00 PM EDT Temperature 36.2 C (97.2 F) 05/31/2023 11:25 AM E DT Respiratory Rate 19 05/31/2023 12:00 PM EDT Oxygen Saturation 86% 05/31/2023 12:00 PM EDT Inhaled Oxygen Concentration - - Weight - - Height - - Body Mass Index - - documented in this encounter Functional Status Functional [...] No 04/15/2015 documented as of this encounter Discharge Instructions * Discharge Instr - AVS* Geeta Rai CRNP - 05/31/2023 10:29 AM EDT Discharge Date: 05/31/2023 Provider: Geeta HINSON If you are experiencing any problems related to your procedure, please contact Interventional Radiology at [phone] during normal business hours: Monday - Monday, 8:00 am - 4:00 pm. If a problem occurs outside of normal business hours, please call the hospital journeyman press operator at [phone] and ask for the Interventional Radiologist national investigative producer. Contact scheduling for Interventional Radiology at [phone] during normal business hours: Monday - Monday, 8:00 am - 4:00 pm. The information below provides you with the instructions and the list of medications you need to betaking following discharge from the hospital. If you have any questions, please ask before leaving.Please carry this letter with you when you see your doctor in the clinic. If you have questions, you can reach us at the numbers above. SPECIAL INSTRUCTIONS THORACENTESIS: Home Care Avoid strenuous activity for 24 to 48 hours after the procedure. Do not lift anything heavier than 10 pounds for 3 days after the procedure. Gradually increase your activity after 24 to 48 hours after the procedure. Keep the dressing clean and dry; change as needed. Dressing can be removed in 24 hours. You may shower after 24 hours. Gently wash the area and pat it dry. Please DO NOT take a bath, soak in a hot tub, or swim until the wound is completely healed. When to Call Interventional Radiology Call Interventional Radiology right away if you have any of the following: Fever above 100 degrees Fahrenheit Increased bleeding, redness, swelling, warmth, or discharge at the incision site. Constant or increasing pain, numbness, coldness, or tingling around the incision area. Vomiting or nausea that does not go away If at any time you feel you have a medical emergency, call 911 for emergency assistance. Symptoms may include: Chest Pain Sudden, severe shortness of breath Rapid heart rate Sudden onset of weakness See your referring physician for follow-up appointment. Do not smoke or use tobacco products in any way! If you feel suicidal or homicidal, please call the crisis hotline at [phone]-SXQN ([phone]). Driving: You may resume driving immediately . Diet: You may resume your current diet as tolerated. Return to work or school: You may return to school or work 2 hours after the procedure, unless otherwise instructed by the physician. documented in this encounter Nursing Notes * Shannon Carrasco RN - 05/31/2023 12:02 PM EDT DISCHARGE - POST INTERVENTIONAL RADIOLOGY PROCEDURE Patient meets discharge criteria for Interventional Radiology. Vital signs stable. Patients SPO2 onRA sitting at 86%-88%. Geeta Fredi HINSON made aware and she reached out to the service to make them aware of this. Patient still okay to be discharged with the intent of home oxygen being set up for them. Patient and family member aware and thankful for our assistance. Dressing clean, dry, and intact. Patient awake and oriented to pre procedure baseline. Discharge instructions given, no questions at this time. Patient tolerating liquids, with no nausea/vomiting. All belongings sent with patient. Discharged to home. Vital Signs: BP: 151/79 (05/31/23 1150) Temp: 36.2 C (97.2 F) (05/31/23 1125) Pulse: 90 (05/31/23 1200) Resp: 19 (05/31/23 1200) SpO2: 86 % (05/31/23 1200) Neurological: [place] Coma Scale Eyes Open: Spontaneous (05/31/23 1200) Best Verbal Response: Verbally appropriate for age (05/31/23 1200) Best Motor Response: Obeys commands appropriate for age (05/31/23 1200) Coma Score: 15 (05/31/23 1200) Activity: Four Extremities LOC: Fully Awake or Pre-Anesthetic Level of Consciousness BP: Less than (+/-) 20% Resp: Deep Breathe and Cough Freely (05/30 1139) Respiratory: Pain Assessment Flowsheet Row Most Recent Value Pain Assessment Scale [facility] Adult Scale 0-10 Pain Score 0 (no pain) * Nishi Salazar RN - 05/31/2023 10:55 AM EDT instrumentation instructor note Name: Matthew Rowe Procedure: Right Thoracentesis Patient ID band checked using two identifiers. Patient assisted into sitting position with comfort measures intact. Hemodynamic monitoring initiated. Patient denies any complaints at current time. RTstaff preparing patient for procedure. 11:01 AM Timeout performed by Geeta HINSON 11:03 AM Procedure started by Geeta HINSON and lizeth Ortega. Ultrasound utilized for anatomical analysis of patient and access needle guidance. 1% buffered lidocaine being given at the right back. 11:07 AM Access obtained, attached to vacuum container. Imaging obtained. 11:14 AM Access removed and manual pressure to site. 11:15 AM Hemostasis obtained. Area cleaned. Xeroform, Gauze and Tegaderm dressing applied. 900 mL pleural fluid removed. Description: clear, yellw All wires, catheters, sheaths and other devices have been inspected prior to the procedure for damage. This has been confirmed by the scrubbed RT and the operating physician. All items not intended to remain in the patient have been inspected, accounted for and have been removed from the patient atthe end of the procedure. This has been confirmed by the scrubbed RT and the operating physician. Pt did not receive conscious sedation for their procedure. Total Medications 1% buffered lidocaine: 10 mL Please see doctor's operative note for additional details. documented in this encounter Miscellaneous Notes * Progress Notes - Non-Billable - Geeta Rai CRNP - 05/31/2023 11:29 AM EDT PROCEDURE NOTE - Interventional Radiology [facility] [address] Name: Matthew Rowe Location: RADIOLOGY WAITING ROOM/IR Date: 05/31/2023 Time: 11:30 AM PROCEDURE: US Guided Thoracentesis [place]: Dr. Lissette Pradhan & Geeta HINSON ASSISTANTS: RT Megan ANESTHESIA: local COMPLICATIONS: none SPECIMEN: none ESTIMATED BLOOD LOSS: negligible FINDINGS: Successful US-guided thoracentesis. Please see PACS imaging report for details. documented in this encounter Plan of Treatment Upcoming Encounters Date Type Department Care Team (Late st Contact Info) Description 06/07/2023 11:50 AM EDT Office Visit [facility] [place] [address] [place] [phone] Edgar Gibbs MD [address] [place] [address] 07/19/2023 11:00 AM EDT Appointment Interventional Radiology [facility], [facility] 1st Floor [address] [place] [address] 10/25/2023 3:15 PM EDT Office Visit Urology, [facility] [address] [facility] [place] [address] Travon Canales MD [address] [place] [address] 12/06/2023 1:40 PM EDT Office Visit Pulmonary Medicine, [facility] [address] [facility] [place] [address] [facility]ino [facility]ap[facility] [address] [facility] [address] 02/26/2024 9:30 AM EST Cardiac Studies Cardiac Studies, [facility] [address] [facility] [place] [address] Pending Results Name Type Priority Associated Diagnoses Date/Time IR CHEST THORACENTESIS Medical Imaging Routine Pleural effusion, right 05/31/2023 11:17 AM EDT Health Maintenance Due Date Last Done Comments Alpha-1 Antitrypsin 05/18/1963 *COPD SEVERITY VERIFIED BY PFT 03/05/2022 COVID-19 Vaccine ( season) 2022 01/19/2021, 06/10/2020, 05/20/2020 DISCUSS TOBACCO CESSATION (REFER TO SMARTSET #5098) 06/04/2023 06/03/2022 Depression Screening 06/04/2023 06/03/2022 O2 [...] this encounter Visit Diagnoses Diagnosis Pleural effusion, right Unspecified pleural effusion documented in this encounter Administered Medications Inactive Administered Medications - up to 3 most recent administrations Medication Order MAR Action Action Date Dose Rate Site buffered lidocaine 1 % inj Intradermal, ONCE PRN INTRA PROCEDURE, Starting on Mon05/31/23 at 1103, Until Mon05/31/23 at 1103, Intra-Op Given 05/31/2023 11:03 AM EDT 10 mL documented in this encounter Active and Recently Administered Medications Times are shown in EDT. PRN Medication Order 05/29/2023 05/30/2023 05/31/2023 buffered lidocaine 1 % inj (COMPLETED) Intradermal, ONCE PRN INTRA PROCEDURE, Starting on Mon05/31/23 at 1103, Until Mon05/31/23 at 1103, Intra-Op 1103 (Given - Provid er: SRAVAN Flores - Comment: total administered during IR procedure) documented in this encounter Advance Directives Latest Code Status on File Code Status Date Activated Date Inactivated Comments Full Code 04/15/2015 4:40 PM 04/16/2015 5:24 PM This order reflects the patients wishes and were consensually agreed upon. Care Teams Bariatric Physician Relationship Specialty Start Date End Date Edgar Gibbs MD [address] [place] [address] PCP - General Family Medicine 07/03/20 documented as of this encounter
--- OUTSIDE RECORDS SUMMARY | 2023-06-02 11:44 | External Medical Summary | Summary of Care ---
Author Name Unknown Organization [facility] Address [address] [facility] [place] [address] Phone [phone] Care Team Providers Care Wrist Liner Name Role Phone Edgar Gibbs MD Primary Care P rovider Encounter Details Date Type Department Care Team (Late st Contact Info) Description 04/12/2023 Telephone Urology, [facility] [address] [facility] [place] [address] Travon Canales MD [address] [facility] [address] [place] [address] Allergies Active Allergy Reactions Criticality Noted Date Comments Latex 07/19/2019 Pantoprazole Sodium Edema face/lips/tongue High 04/0 02/2014 documented as of this encounter (statuses as of 04/17/2023) Medications Medication Sig Dispensed Refills Start Date End Date Status Cholecalciferol 2000 units Capsule Take 1 Capsule by mouth in the morning. 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) take 2 pills 3 x daily 180 Tab 11 10/26/2018 Active Sodium Chloride Flush (NORMAL SALINE FLUSH) 0.9 % SOLN injection FLUSH ONCE DAILY WITH 10ml 300 mL 1 03/12/2019 Active Leuprolide Acetate (3 Month) 22.5 MG Subcutaneous Kit (Browserling) Inject 22.5 mg under the skin. Every 3 months 0 11/18/2020 Active Incruse Ellipta 62.5 MCG/ACT Inhalation Aerosol Powder Breath Activated (umeclidinium [place])Indications: Chronic obstructive pulmonary disease, unspecified COPD type [...] as of this encounter (statuses as of 04/17/2023) Active Problems Problem Noted Date Diagnosed Date [...] as of this encounter (statuses as of 04/17/2023) Resolved Problems Problem Noted Date Diagnosed Date [...] MELODY (acute kidney injury) 05/06/2014 Hypertension, essential 04/08/2015 Use of leuprolide acetate (Lupron) 12/27/2016 documented as of this encounter (statuses as of 04/17/2023) Immunizations Name Administration Dates Next Due COVID-19 mRNA, LNP-s, No Pre serve, 2-Dose Series (Korbitec) 01/19/2021,06/10/2020,05/20/2020 HEP B - Hepatitis B (Dialysis/Immumocomp Pt) 12/20/2018,07/21/2018,06/19/2018 PPD 05/03/2018 Pneumococcal Conjugate Vacci ne, 20-valent ([id number]) 03/16/2022 Pneumococcal Polysaccharide PPV23 (Pneumovax) 12/28/2017 Seasonal [...] encounter Miscellaneous Notes * Telephone Encounter - Rita Beverly OSA - 04/13/2023 6:22 AM EST See referral message * Telephone Encounter - Danae Gentile LPN - 04/12/2023 4:43 PM EST Urology Pre-Cert Request Medication/Disease State Information: Medication: Leuprolide Acetate - J Lupron Depot 6 month- IM 45 mg every 24 [place] [phone] Diagnosis (including ICD-10): Prostate Cancer- C61 Medication(s) Tried/Failed/Contraindicated: n/a See corresponding visit note(s) for additional supporting clinical information. Office Information: Prescriber: Travon Canales MD documented in this encounter Plan of Treatment Upcoming Encounters Date Type Department Care Team (Late st Contact Info) Description 04/19/2023 11:00 AM EST Appointment Interventional Radiology [facility], [place] [place] 1st Floor [address] [facility] [place] [phone] 04/24/2023 1:00 PM EST [facility] [address] [place] [address] Lance Nurse Urology Ismael [address] [place] [address] 05/17/2023 1:40 PM EDT Office Visit Pulmonary Medicine, [facility] [address] [facility] [place] [address] Tino Stapleton MD [address] [place] [address] 06/07/2023 11:50 AM EDT Office Visit [facility] [address] [place] [address] Edgar Gibbs MD [address] [place] [address] 10/25/2023 3:15 PM EDT Office Visit Urology, [facility] [address] [facility] [place] [address] Travon Canales MD [address] [place] [address] [place] [address] 02/26/2024 9:30 AM EST Cardiac Studies Cardiac Studies, [facility] [address] [facility] [place] [address] Health Maintenance Due Date Last Done Comments Alpha-1 Antitrypsin 05/18/1963 Hepatitis C Screening 05/18/1963 *COPD SEVERITY VERIFIED BY PFT 03/05/2022 COVID-19 Vaccine ( season) 2022 01/19/2021, 06/10/2020, 05/20/2020 DISCUSS TOBACCO CESSATION (REFER TO SMARTSET #[id number]) 06/04/2023 06/03/2022 Depression Screening 06/04/2023 06/03/2022 O2 ASSESSMENT COMPLETED IN PAST YEAR FOR COPD 04/12/2024 04/12/2023 DTaP,Tdap,and Td Vaccines (2 - Td or [...] and were consensually agreed upon. Care Teams Wrist Liner Relationship Specialty Start Date End Date Edgar Gibbs MD [address] [place] [id number] PCP - General Family Medicine 07/03/20 documented as of this encounter
--- OUTSIDE RECORDS SUMMARY | 2023-06-02 11:44 | External Medical Summary | Summary of Care ---
Author Name Unknown Organization [facility] Address [address] [place] [address] Phone [phone] Care Team Providers Care National Sales Name Role Phone Edgar Gibbs MD Primary Care [facility] Reason for Referral * Precert (Within 10 days (routine)) - Authorized Specialty Diagnoses / Procedures Referred By Cecilia mendieta Referred To Contact Radiology Diagnoses Nephrostomy status (HCC) Procedures IR GENITORINARY NEPHRO/CYSTO/URETERAL Geeta Rai CRNP [address] [place] [address] Referral ID Status Reason Start Date Expiration Date V isits Requested Visits Authorized [id number] Authorized 01/09/2023 50 50 Reason for Visit * Precert (Within 10 days (routine)) - Authorized Specialty Diagnoses / Procedures Referred By Cecilia mendieta Referred To Contact Radiology Diagnoses Nephrostomy status (HCC) Procedures IR GENITORINARY NEPHRO/CYSTO/URETERAL Geeta Rai CRNP [address] [place] [address] Referral ID Status Reason Start Date Expiration Date V isits Requested Visits Authorized [id number] Authorized 01/09/2023 50 50 Encounter Details Date Type Department Care Team (Latest Contact Info) Description 04/19/2023 9:24 AM EST - 04/19/2023 1:06 PM EST Hospital Encounter Radiology Waiting Room [facility] 1st Floor [address] [place] [address] Gera Mcdaniel MD [address] [place] [address] Arrived Discharge Disposition: Home - Self Care Allergies Active Allergy Reactions Criticality Noted Date Comments Latex 07/19/2019 Pantoprazole Sodium Edema face/lips/tongue High 04/0 02/2014 documented as of this encounter (statuses as of 04/20/2023) Medications Medication Sig Dispensed Refills Start Date [...] Acetate (3 Month) 22.5 MG Subcutaneous Kit (Nulu) Inject 22.5 mg under the skin. Every 3 months 0 11/18/2020 Active Incruse Ellipta 62.5 MCG/ACT Inhalation Aerosol Powder Breath Activated (umeclidinium Lena)Indications: Chronic obstructive pulmonary disease, unspecified COPD type [...] as of this encounter (statuses as of 04/20/2023) Active Problems Problem Noted Date Diagnosed Date [...] as of this encounter (statuses as of 04/20/2023) Resolved Problems Problem Noted Date Diagnosed Date [...] as of this encounter (statuses as of 04/20/2023) Immunizations Name Administration Dates Next Due COVID-19 mRNA, LNP-s, No Pre serve, 2-Dose Series (FiscalNote) 01/19/2021,06/10/2020,05/20/2020 HEP B - Hepatitis B (Dialysis/Immumocomp Pt) 12/20/2018,07/21/2018,06/19/2018 PPD 05/03/2018 Pneumococcal Conjugate Vacci ne, 20-valent ([id number]) 03/16/2022 Pneumococcal Polysaccharide PPV23 (Pneumovax) 12/28/2017 Seasonal [...] Sign Reading Time Taken Comments Blood Pressure 143/74 04/19/2023 12:55 PM EST Pulse 75 04/19/2023 12:55 PM EST Temperature 36.3 C (97.3 F) 04/19/2023 12:[address] Respiratory Rate 23 04/19/2023 12:55 PM EST Oxygen Saturation 94% 04/19/2023 12:55 PM EST Inhaled Oxygen Concentration - - Weight - [...] Discharge Instructions * Discharge Instr - AVS* Xander Hickman MD - 04/19/2023 12:05 PM EST Discharge Date: 04/19/2023 Provider: Dr. Juan José Hickman If you are experiencing any problems related to your procedure, please contact Interventional Radiology at [phone] during normal business hours: Monday - Monday, 8:00 am - 4:00 pm. If a problem occurs outside of normal business hours, please call the hospital teletray operator at [phone] and ask for the Interventional Radiologist rehabilitation physician. Contact scheduling for Interventional Radiology at [phone] during normal business hours: Monday - Monday, [...] homicidal, please call the crisis hotline at [phone] ([phone]). MODERATE SEDATION You may have received medication that made you comfortable/sedated you during your procedure. This is considered moderate sedation. This medication was given to relax you. You may also not remember having the procedure done. It may take up to 24 hours for this medication to be out of your system. Because of this, you should observe the following for the next 24 hours: Do not drink alcohol or take depressant drugs. Do not operate any type of machinery that requires hand-eye coordination. Do not sign any legal papers or documents. Do not make any financial decisions. You should be in the presence of an adult for the remainder of the day. If you are experiencing any problems related to your procedure, you should contact the Interventional Radiology physician unless otherwise directed. Nephro-ureteral Stent Change If Connected to Drainage Bag Wear comfortable clothing that does not pull or kink the catheter Check your securement device (stat lock or stay fix)/sutures often to make sure they are not comingloose. If so, the catheter may be pulled out. If the securement device becomes loose, follow the following steps to change it: Wash hands using soap and water Open center of securement device (either pull tab or squeeze to release catheter) Remove securement device carefully as not to pull catheter Inspect skin to make sure there are no open areas from adhesive Apply new securement device Secure catheter to center of securement device Close device Wash hands again with soap and water Gently clean area at insertion site with mild soap and warm water. Pat dry DO NOT let the bag hang freely. Keep bag secured to leg above the knee and make sure there is slackon the tubing of the drainage bag. Empty the drainage bag often so it does not become too heavy. Always empty the drainage bag before bed. To empty bag: Wash hands with soap and water Open twist end on bottom of bag After bag is completely empty, twist close Wash hands again with soap and water It is all right to shower; however, try to keep the catheter insertion site dry. Cover with plasticwrap and tape. Make sure to inspect dressing securing the catheter after every shower. DO NOT take a bath, sit in a hot tub, go swimming, or do any other activity that requires you to befully submerged in water. If Not Connected to Drainage Bag Wear loose comfortable clothing that does not pull or kink the catheter. Check your securement device/sutures often to make sure they are not coming loose. If so, the catheter may be pulled out. Gently clean area at insertion site with mild soap and water. Pat dry. It is all right to shower; however, try to keep the catheter site dry. Cover with plastic wrap and tape. Make sure to inspect dressing, securing the catheter after every shower. DO NOT take a bath, sit in a hot tub, go swimming, or do any other activity that requires you to befully submerged in water. Reconnect a drainage bag if you start having pain in your back, nausea, or an increased temperature, and call Interventional Radiology. Flushing Your Catheter* Your catheter may need to be flushed daily to ensure it drains properly. Because only certain pharmacies carry pre-filled saline flushes, we can call the prescription into [facility] if no one close to you carries them. *Flush catheter once daily with 10 mL normal saline (1 pre-filled saline syringe), if instructed. To flush your catheter: Wash your hands. Gather alcohol swab, 10 mL of 0.9% NSS flush and a clean towel/tissue. Twist the drainage bag connector counter-clockwise and place it on a clean towel or tissue. Clean the connector with alcohol swab for 10 seconds. Remove the white cap from 0.9% NSS flush, gently pull plunger back and then forward to remove air. Connect 0.9% NSS flush to the catheter by twisting it clockwise onto the connection hub. Gently flush entire 10 mL of 0.9% NSS into catheter. Remove flush from the hub by twisting it counter-clockwise. Clean the connector with alcohol swab for 10 seconds. Re-connect the drainage bag by inserting the connector piece into the catheter hub and twisting it in a clockwise direction until tight. Wash your hands. *Remember to deduct 10 mL from daily drainage total to account for flushing. Follow Up Your catheter will need to be exchanged periodically approximately every 3 months. Our schedulers will contact you to set up this appointment. Please call Interventional Radiology if your catheter is removed by Urology, as you will not be required to come for the follow up appointment for catheter study. Stay hydrated and take care of your general health. DO NOT push catheter When to Call Interventional Radiology Call Interventional Radiology right away if you have any of the following: If catheter gets pulled or migrates out, DO NOT push catheter back in. Contact Interventional Radiology immediately. Increased pain, swelling, bleeding, redness, or foul-smelling discharge around the catheter Urine that changes to a pink or red color A noticeable increase or decrease in the amount of urine that drains Fever above 100.4 degrees Fahrenheit or shaking chills Vomiting or nausea that does not go away Severe pain over the flank or catheter site If at any time you feel you have a medical emergency, call 911 for emergency assistance. Symptoms may include: Chest Pain Sudden, severe shortness of breath Rapid heart rate Sudden onset of weakness Do not smoke or use tobacco products in any way! If you feel suicidal or homicidal, please call the crisis hotline at [phone] ([phone]). MODERATE SEDATION You may have received medication that made you comfortable/sedated you during your procedure. This is considered moderate sedation. This medication was given to relax you. You may also not remember having the procedure done. It may take up to 24 hours for this medication to be out of your system. Because of this, you should observe the following for the next 24 hours: Do not drink alcohol or take depressant drugs. Do not operate any type of machinery that requires hand-eye coordination. Do not sign any legal papers or documents. Do not make any financial decisions. You should be in the presence of an adult for the remainder of the day. If you are experiencing any problems related to your procedure, you should contact the Interventional Radiology physician unless otherwise directed. Driving: You may resume driving tomorrow . Diet: You may resume your current diet as tolerated. Return to work or school: You may return to school or work 24 hours after the procedure, unless otherwise instructed by the physician. documented in this encounter H&P Notes * Xander Hickman MD - 04/19/2023 10:55 AM EST HISTORY & PHYSICAL - Interventional Radiology Service [facility] [address] [facility] [address] Name: Matthew Rowe Location: RADIOLOGY WAITING ROOM/IR Date: 04/19/2023 Time: 10:55AM _ HISTORY OF PRESENT ILLNESS: 77 yo male with a PMH of prostate cancer with PCNU, here for PCNU exchange. History of recurrent right pleural, here for possible thoracentesis, possible tunneled pleural drain placement. Patient denies any CP, SOB, abdominal pain, N/V/D. Past Medical History: Diagnosis Date Hypertension, essential INFORMATION 03/2014 [facility]- kidney failure Pleural effusion Use of leuprolide acetate (Lupron) Past Surgical History: Procedure Laterality Date CYSTOSCOPY 07-08-2014 IR DRAINAGE CATHETER CHANGE Right 06/10/2015 CHANGE OF PERCUTANEOUS TUBE OR DRAINAGE CATHETER WITH XRAY AND CONTRAST MEDIUM performed by Gera Mcdaniel MD at [facility] [place] DRAINAGE CATHETER CHANGE Right 08/24/2016 CHANGE OF PERCUTANEOUS TUBE OR DRAINAGE CATHETER WITH XRAY AND CONTRAST MEDIUM performed by Gera Mcdaniel MD at [facility] [place] GENITORINARY NEPHRO/CYSTO/URETERAL 01/18/2019 IR GENITORINARY NEPHRO/CYSTO/URETERAL 04/01/2019 IR GENITORINARY NEPHRO/CYSTO/URETERAL 08/02/2019 IR GENITORINARY NEPHRO/CYSTO/URETERAL 12/13/2019 IR GENITORINARY NEPHRO/CYSTO/URETERAL 04/29/2020 IR GENITORINARY NEPHRO/CYSTO/URETERAL 08/19/2020 IR GENITORINARY NEPHRO/CYSTO/URETERAL 12/23/2020 IR GENITORINARY NEPHRO/CYSTO/URETERAL 04/14/2021 IR GENITORINARY NEPHRO/CYSTO/URETERAL 08/04/2021 IR GENITORINARY NEPHRO/CYSTO/URETERAL 12/10/2021 IR GENITORINARY NEPHRO/CYSTO/URETERAL 04/06/2022 IR GENITORINARY NEPHRO/CYSTO/URETERAL 08/15/2022 IR GENITORINARY NEPHRO/CYSTO/URETERAL 01/04/2023 NONE Social History Socioeconomic History Marital status: Spouse name: Not on file Number of children: Not on file Years of education: Not on file Highest education level: Not on file Occupational History Occupation: Retired Comment: [employer] Tobacco Use Smoking status: Every Day Current packs/day: 0.25 Average packs/day: 0.3 packs/day for 60.0 years (15.0 ttl pk-yrs) Types: Cigarettes Smokeless tobacco: Never Vaping Use Vaping Use: Never used Substance and Sexual Activity Alcohol use: No Drug use: No Sexual activity: Not on file Other Topics Concern Not on file Social History Narrative No pets. No mold. Social Determinants of Health Financial Resource Strain: Not on file Food Insecurity: No Food Insecurity (10/26/2018) Hunger Vital Sign Worried About Running Out of Food in the Last Year: Never true Ran Out of Food in the Last Year: Never true Transportation Needs: Not on file Physical Activity: Not on file Stress: Not on file Social Connections: Not on file Intimate Partner Violence: Not on file Housing Stability: Not on file Family History Problem Relation Age of Onset Stomach cancer Mother in her 80s COPD Father age 64 Parkinsonism Sister Lung cancer Sister Breast Cancer Sister breast Other (AAA) Sister Parkinsonism Sister COPD Sister Heart attack Brother Review of patient's allergies indicates: Allergen Reactions Pantoprazole Sodium Edema face/lips/tongue Latex No current facility-administered medications for this encounter. REVIEW OF SYSTEMS: Negative aside from HPI as above OBJECTIVE: BP 177/78 | Pulse 80 | Temp 36.4 C (97.5 F) (Tympanic) | Resp 18 | SpO2 95% PHYSICAL EXAM: Constitutional: no acute distress CV: normal heart sounds, normal rate Chest: normal respiratory effort Abdomen: soft, no tenderness LABS: CBC Results: PT INR Results: Results for orders placed or performed in visit on 04/19/23 PT INR Result Value Ref Range Prothrombin Time 14.7 11.6 - 15.2 seconds INR 1.2 0.8 - 1.2 Results for orders placed or performed in visit on 04/15/15 PT/INR Result Value Ref Range Prothrombin Time 13.5 11.5 - 14.6 seconds INR 1.05 0.85 - 1.16 BUN Results: Lab Results Component Value Date/Time TADEO [place] 70 (H) 11/21/2022 01:37 PM BUN - [facility] 26 (H) 02/11/2020 12:16 PM BUN - [facility] 77 (H) 12/18/2017 09:52 AM BUN - [facility] 84 (H) 12/01/2017 10:40 AM Creatinine Results: Lab Results Component Value Date/Time CREATININE - [facility] 9.2 (H) 11/21/2022 01:37 PM CREATININE - [facility] 4.1 (H) 02/11/2020 12:16 PM CREATININE - [facility] 8.7 (H) 12/18/2017 09:52 AM CREATININE - [facility] 8.5 (H) 12/01/2017 10:40 AM CREATININE, RANDOM URINE - [facility] 39 10/12/2017 11:29 AM CREATININE, RANDOM URINE - [facility] 52 09/14/2016 02:45 PM CREATININE, RANDOM URINE - [facility] 47 05/06/2015 12:07 PM CREATININE-OUTSIDE LAB 5.85 (A) 03/28/2018 12:00 AM CREATININE-OUTSIDE LAB 5.68 (A) 03/16/2018 12:00 AM CREATININE-OUTSIDE LAB 8.31 (A) 12/08/2017 12:00 AM Potassium Results: Lab Results Component Value Date/Time POTASSIUM - [facility] 5.1 11/21/2022 01:37 PM POTASSIUM - [facility] 3.8 02/11/2020 12:16 PM POTASSIUM - [facility] 4.1 12/18/2017 09:52 AM POTASSIUM - [facility] 6.3 (HH) 12/01/2017 10:40 AM POTASSIUM-OUTSIDE LAB 3.8 03/28/2018 12:00 AM POTASSIUM-OUTSIDE LAB 4.8 03/16/2018 12:00 AM POTASSIUM-OUTSIDE LAB 4.5 12/08/2017 12:00 AM INFORMED CONSENT: Yes PRE-SEDATION ASSESSMENT: Right Pncu Exchange Possible Thoracentesis,Possible Tunneled Drain Placement Level of sedation planned: Moderate Patient's allergies reviewed: Yes H&P Review / Interval Note Documentation: There is no H&P on file. Difficulty with sedation / anesthesia: No Sleep apnea: No History of snoring: Yes History of difficult intubation: No Decreased ROM neck flexion/extension: No Tracheal deviation: No Decreased ability to open mouth / TMJ: No Loose teeth / dentures / partial: Yes Congenital deformities / abnormalities: No Dysphagia: No Mallampati Classification: II - soft palate, uvula, fauces visible Chest: Clear Heart: Regular Rhythm Adequate Vascular Access: Yes ASA Risk Stratification (Select One): ASA 3 - Severe systemic disease, definite functional limitations The patient was identified and the procedure verified: Yes The patient was reevaluated immediately prior to the sedation: 04/19/2023 11:00 AM IMPRESSION/PLAN: 77 yo male with a PMH of prostate cancer with PCNU, here for PCNU exchange. History of recurrent right pleural, here for possible thoracentesis, possible tunneled pleural drain placement. Ok to proceed with moderate sedation Xander Hickman MD documented in this encounter Nursing Notes * Geeta Hogan, RN - 04/19/2023 1:02 PM EST DISCHARGE - POST INTERVENTIONAL RADIOLOGY PROCEDURE Patient meets discharge criteria for Interventional Radiology. Vital signs stable. Dressing clean, dry, and intact. IV site removed. Patient awake and oriented to pre procedure baseline. Discharge instructions given, no questions at this time. Patient tolerating liquids, with no nausea/vomiting. All belongings sent with patient. Discharged to home. Vital Signs: BP: 143/74 (04/19/23 1255) Temp: 36.3 C (97.3 F) (04/19/23 1205) Pulse: 75 (04/19/23 1255) Resp: 23 (04/19/23 1255) SpO2: 94 % (04/19/23 1255) Neurological: Sharon Coma Scale Eyes Open: Spontaneous (04/19/23 1113) Best Verbal Response: Verbally appropriate for age (04/19/23 1113) Best Motor Response: Obeys commands appropriate for age (04/19/23 1113) Coma Score: 15 (04/19/23 1113) Activity: Four Extremities LOC: Fully Awake or Pre-Anesthetic Level of Consciousness BP: Less than (+/-) 20% Resp: Deep Breathe and Cough Freely (04/19 1205) Respiratory: Pain Assessment Flowsheet Row Most Recent Value [facility]10 Pain Score 0 (no pain) * Jamin Ferguson RN - 04/19/2023 11:57 AM EST dress designer note Name: Matthew Rowe Date: 04/19/2023 Procedure: Right Percutaneous Nephroureterostomy Exchange & R Chest Pleur X Catheter Placement Patient ID band checked using two identifiers. Patient placed on procedure table, prone position, with comfort measures intact and safety strap in place. Hemodynamic monitoring placed and initiated. Patient denies any complaints at current time. RT staff preps for procedure. 11:14 AM 2 mg of Versed given per order of physician. Order was verbalized and verified with Dr. Xander Hickman prior to administration. 11:25 AM Timeout performed by Dr. Juan José Hickman. Correct catheter/tube size verbalized and verified during timeout. R PCNU Exchange 11:27 AM Procedure started by Dr. Juan José Hickman and scrubbed RT Felisa. Guidewire inserted via existing PCNU. Images obtained. 11:28 AM Old PCNU removed. Images obtained. 11:30 AM New PCNU placed. [place] Nephroureterostomy Stent Catheter. 10.2 Fr. X 22 cm. Lot: [id number]. Exp: 12/14/2025. Images obtained. 11:31 AM Catheter capped. No sutures or stat lock applied per patient preference. 11:32 AM Area cleaned. Thoracentesis 11:36 AM Patient placed on stretcher in L side laying position. 11:38 AM Report given to RAHEEM Doll. dress designer note 11:38 AM Report received from Angela Baxter RN. Patient prepped by RT staff for right Thoracentesis 11:43 AM Interval timeout performed by Dr. Xander Hickman 11:45 AM Ultrasound utilized for anatomical analysis of patient and access needle guidance. 1% buffered lidocaine given by clinician at right back site. 11:46 AM Access obtained, attached to vacuum container. Images obtained. 11:56 AM Access removed and manual pressure to site. Procedure ends. 11:57 AM Hemostasis obtained. Area cleaned. Xeroform, Gauze and Tegaderm dressing applied. 1.5 mL pleural fluid removed. Description: marleni Patient tolerated procedure well without complications. All wires, catheters, sheaths and other devices [...] receive conscious sedation for their procedure. Total medications given Versed: 2 mg Rocephin: 1 g 1% buffered lidocaine: 10 mL Please see doctor's operative note for additional details. documented in this encounter Miscellaneous Notes * Sedation Note - Xander Hickman MD - 04/19/2023 12:06 PM EST SEDATION NOTE Post Sedation Evaluation: Cardiovascular status: acceptable Level of consciousness: awake and alert Airway patency: patent Distress - NAD Hydration status - well hydrated Nausea/vomiting - not present Pain Evaluation Pain Assessment Flowsheet Row Most Recent Value Pain Assessment Scale [facility] Adult Scale 0-10 Pain Score 0 (no pain) Vital Signs: Temp: 36.4 C (97.5 F) (04/19 0943) BP: 134/72 (04/19 1150) Pulse: 78 (04/19 1150) Resp: 24 (04/19 1150) SpO2: 97 % (04/19 1150) I have personally examined the patient, prescribed the necessary medications as charted, and certify that Matthew Rowe is recovered for safe discharge from my face to face care. documented in this encounter Plan of Treatment Upcoming Encounters Date Type Department Care Team (Late st Contact Info) Description 04/24/2023 1:00 PM EST [facility] [address] [place] [address] Lance Nurse Urology Ismael [address] [place] [address] 05/17/2023 1:40 PM EDT Office Visit Pulmonary Medicine, [facility] [address] [facility] [place] [address] Tino Stapleton MD [address] [place] [address] 06/07/2023 11:50 AM EDT Office Visit [facility] [address] [place] [address] Edgar Gibbs MD [address] [place] [address] 10/25/2023 3:15 PM EDT Office Visit Urology, [facility] [address] [facility] [place] [address] Travon Canales MD [address] [address] [place] [address] 02/26/2024 9:30 AM EST Cardiac Studies Cardiac Studies, [facility] [address] [facility] [place] [address] Health Maintenance Due Date Last Done Comments [...] Procedure Name Priority Date/Time Associated Diagnosis Comments IR CHEST THORACENTESIS Routine 12:06 PM EST Pleural effusion, right IR GENITORINARY NEPHRO/CYSTO/URETERAL Routine 04/19/2023 12:06 PM EST Nephrostomy status (HCC) documented in this encounter Results * IR CHEST THORACENTESIS (04/19/2023 12:06 PM EST) Anatomical Region Laterality Modality Any X-Ray Angiograph y 04/19/2023 2:53 PM EST Impressions 04/19/2023 2:51 PM EST IMPRESSION: right Nephroureteral catheter check and exchange. Ultrasound-guided right thoracentesis. PLAN: Patient should return to IR in 3 months for routine maintenance catheter exchange. Thoracentesis p.r.n. symptomatic relief. Narrative 04/19/2023 2:51 PM EST PROCEDURE: Right nephroureteral catheter check and exchange. Right thoracentesis. INDICATION: 77 with dependence on nephroureteral catheter due to prostate cancer, presents for preventative catheter check and exchange. ATTENDING (OPERATING PHYSICIAN): Xander Hickman MD SCRUBBED RESIDENT (OPERATING PHYSICIAN): None SUPPORTING PROVIDER (EDUCATION DIRECTOR): None. CONSENT: After a detailed discussion of the procedure, risks, benefits and alternative treatment options, informed consent was obtained. TIME OUT: A time out procedure was performed. The patient's identification was verified. Informed consent with agreement of procedure, site and position was obtained. All necessary equipment was available prior to procedure. CONTRAST: IV Optiray 320. No contrast was administered. COMPLICATIONS: None. ANESTHESIA: Local lidocaine. IV Versed. SEDATION TIME: N/A MEDICATIONS: See MAR PROCEDURE DESCRIPTION: The patient was placed in the prone position on the fluoroscopy table. The nephroureteral catheter was prepped and draped in usual sterile fashion. Right: Preliminary fluoroscopic evaluation of the right side demonstrated a nephroureteral catheter overlying the right flank. A small amount of contrast was injected through the catheter and an antegrade nephrostogram was performed, which demonstrated opacification of the right collecting system. The locking mechanism of the catheter was then removed and a wire was advanced through the catheter and coiled within the bladder. The catheter was then removed over the wire and exchanged for a new 10.2 Fr 22 cm catheter. A small amount of contrast was injected through the new catheter and an antegrade nephrostogram was performed, confirming appropriate positioning. The catheter was secured to the skin and connected to extension tubing and a drainage bag. After survey ultrasound exam of the right posterior thorax, the site was prepped and draped in the usual sterile fashion. Using real-time ultrasound guidance, the pleural cavity was accessed. The access was obtained in an intercostal fashion, superior to the rib. Ultrasound images demonstrating the needle tip within the pleural cavity were acquired and digitally archived. A total of 1400 milliliters of dark yellow fluid was collected in empty bottles and discarded.. The catheter was then removed and an occlusive dressing was applied. I personally performed the procedure. FINDINGS: Right: Preliminary fluoroscopic evaluation of the right side demonstrated a nephroureteral catheter overlying the right flank. Antegrade nephrostogram through the catheter demonstrated opacification of the right collecting system. Post exchange imaging confirms appropriate positioning of the new catheter. Right pleural effusion was noted on ultrasound. Post thoracentesis demonstrated minimal residual fluid. Procedure Note Xander Hickman MD - 04/19/2023 PROCEDURE: Right nephroureteral catheter check and exchange. Right thoracentesis. INDICATION: 77 with dependence on nephroureteral catheter due to prostatecancer, presents for preventative catheter check and exchange. ATTENDING (OPERATING PHYSICIAN): Xander Hickman MD SCRUBBED RESIDENT (OPERATING PHYSICIAN): None SUPPORTING PROVIDER (EDUCATION DIRECTOR): None. CONSENT: After a detailed discussion of the procedure, risks, benefits andalternative treatment options, informed consent was obtained. TIME OUT: A time out procedure was performed. The patient's identificationwas verified. Informed consent with agreement of procedure, site andposition was obtained. All necessary equipment was available prior toprocedure. CONTRAST: IV Optiray 320. No contrast was administered. COMPLICATIONS: None. ANESTHESIA: Local lidocaine. IV Versed. SEDATION TIME: N/A MEDICATIONS: See MAR PROCEDURE DESCRIPTION: The patient was placed in the prone position on the fluoroscopy table. Thenephroureteral catheter was prepped and draped in usual sterile fashion. Right: Preliminary fluoroscopic evaluation of the right side demonstrateda nephroureteral catheter overlying the right flank. A small amount ofcontrast was injected through the catheter and an antegrade nephrostogramwas performed, which demonstrated opacification of the right collectingsystem. The locking mechanism of the catheter was then removed and a wirewas advanced through the catheter and coiled within the bladder. Thecatheter was then removed over the wire and exchanged for a new 10.2 Fr 22cm catheter. A small amount of contrast was injected through the newcatheter and an antegrade nephrostogram was performed, confirmingappropriate positioning. The catheter was secured to the skin and connected to extension tubing shanon drainage bag. After survey ultrasound exam of the right posterior thorax, the site wasprepped and draped in the usual sterile fashion. Using real-timeultrasound guidance, the pleural cavity was accessed. The access wasobtained in an intercostal fashion, superior to the rib. Ultrasound imagesdemonstrating the needle tip within the pleural cavity were acquired anddigitally archived. A total of 1400 milliliters of dark yellow fluid wascollected in empty bottles and discarded.. The catheter was then removed and an occlusive dressing was applied. I personally performed the procedure. FINDINGS: Right: Preliminary fluoroscopic evaluation of the right side demonstrateda nephroureteral catheter overlying the right flank. Antegradenephrostogram through the catheter demonstrated opacification of the rightcollecting system. Post exchange imaging confirms appropriate positioningof the new catheter. Right pleural effusion was noted on ultrasound. Post thoracentesisdemonstrated minimal residual fluid. IMPRESSION IMPRESSION: right Nephroureteral catheter check and exchange. Ultrasound-guided right thoracentesis. PLAN: Patient should return to IR in 3 months for routine maintenance catheterexchange. Thoracentesis p.r.n. symptomatic relief. Sally Alvarez PA-C RAD SPECIAL PROCEDUR ES * IR GENITORINARY NEPHRO/CYSTO/URETERAL (04/19/2023 12:06 PM EST) Anatomical Region Laterality Modality Any X-Ray Angiograph y 04/19/2023 2:53 PM EST Impressions 04/19/2023 2:51 PM EST IMPRESSION: right Nephroureteral catheter check and exchange. Ultrasound-guided right thoracentesis. PLAN: Patient should return to IR in 3 months for routine maintenance catheter exchange. Thoracentesis p.r.n. symptomatic relief. Narrative 04/19/2023 2:51 PM EST PROCEDURE: Right nephroureteral catheter check and exchange. Right thoracentesis. INDICATION: 77 with dependence on nephroureteral catheter due to prostate cancer, presents for preventative catheter check and exchange. ATTENDING (OPERATING PHYSICIAN): Xander Hickman MD SCRUBBED RESIDENT (OPERATING PHYSICIAN): None SUPPORTING PROVIDER (EDUCATION DIRECTOR): None. CONSENT: After a detailed discussion of the procedure, risks, benefits and alternative treatment options, informed consent was obtained. TIME OUT: A time out procedure was performed. The patient's identification was verified. Informed consent with agreement of procedure, site and position was obtained. All necessary equipment was available prior to procedure. CONTRAST: IV Optiray 320. No contrast was administered. COMPLICATIONS: None. ANESTHESIA: Local lidocaine. IV Versed. SEDATION TIME: N/A MEDICATIONS: See MAR PROCEDURE DESCRIPTION: The patient was placed in the prone position on the fluoroscopy table. The nephroureteral catheter was prepped and draped in usual sterile fashion. Right: Preliminary fluoroscopic evaluation of the right side demonstrated a nephroureteral catheter overlying the right flank. A small amount of contrast was injected through the catheter and an antegrade nephrostogram was performed, which demonstrated opacification of the right collecting system. The locking mechanism of the catheter was then removed and a wire was advanced through the catheter and coiled within the bladder. The catheter was then removed over the wire and exchanged for a new 10.2 Fr 22 cm catheter. A small amount of contrast was injected through the new catheter and an antegrade nephrostogram was performed, confirming appropriate positioning. The catheter was secured to the skin and connected to extension tubing and a drainage bag. After survey ultrasound exam of the right posterior thorax, the site was prepped and draped in the usual sterile fashion. Using real-time ultrasound guidance, the pleural cavity was accessed. The access was obtained in an intercostal fashion, superior to the rib. Ultrasound images demonstrating the needle tip within the pleural cavity were acquired and digitally archived. A total of 1400 milliliters of dark yellow fluid was collected in empty bottles and discarded.. The catheter was then removed and an occlusive dressing was applied. I personally performed the procedure. FINDINGS: Right: Preliminary fluoroscopic evaluation of the right side demonstrated a nephroureteral catheter overlying the right flank. Antegrade nephrostogram through the catheter demonstrated opacification of the right collecting system. Post exchange imaging confirms appropriate positioning of the new catheter. Right pleural effusion was noted on ultrasound. Post thoracentesis demonstrated minimal residual fluid. Procedure Note Xander Hickman MD - 04/19/2023 PROCEDURE: Right nephroureteral catheter check and exchange. Right thoracentesis. INDICATION: 77 with dependence on nephroureteral catheter due to prostatecancer, presents for preventative catheter check and exchange. ATTENDING (OPERATING PHYSICIAN): Xander Hickman MD SCRUBBED RESIDENT (OPERATING PHYSICIAN): None SUPPORTING PROVIDER (EDUCATION DIRECTOR): None. CONSENT: After a detailed discussion of the procedure, risks, benefits andalternative treatment options, informed consent was obtained. TIME OUT: A time out procedure was performed. The patient's identificationwas verified. Informed consent with agreement of procedure, site andposition was obtained. All necessary equipment was available prior toprocedure. CONTRAST: IV Optiray 320. No contrast was administered. COMPLICATIONS: None. ANESTHESIA: Local lidocaine. IV Versed. SEDATION TIME: N/A MEDICATIONS: See MAR PROCEDURE DESCRIPTION: The patient was placed in the prone position on the fluoroscopy table. Thenephroureteral catheter was prepped and draped in usual sterile fashion. Right: Preliminary fluoroscopic evaluation of the right side demonstrateda nephroureteral catheter overlying the right flank. A small amount ofcontrast was injected through the catheter and an antegrade nephrostogramwas performed, which demonstrated opacification of the right collectingsystem. The locking mechanism of the catheter was then removed and a wirewas advanced through the catheter and coiled within the bladder. Thecatheter was then removed over the wire and exchanged for a new 10.2 Fr 22cm catheter. A small amount of contrast was injected through the newcatheter and an antegrade nephrostogram was performed, confirmingappropriate positioning. The catheter was secured to the skin and connected to extension tubing shanon drainage bag. After survey ultrasound exam of the right posterior thorax, the site wasprepped and draped in the usual sterile fashion. Using real-timeultrasound guidance, the pleural cavity was accessed. The access wasobtained in an intercostal fashion, superior to the rib. Ultrasound imagesdemonstrating the needle tip within the pleural cavity were acquired anddigitally archived. A total of 1400 milliliters of dark yellow fluid wascollected in empty bottles and discarded.. The catheter was then removed and an occlusive dressing was applied. I personally performed the procedure. FINDINGS: Right: Preliminary fluoroscopic evaluation of the right side demonstrateda nephroureteral catheter overlying the right flank. Antegradenephrostogram through the catheter demonstrated opacification of the rightcollecting system. Post exchange imaging confirms appropriate positioningof the new catheter. Right pleural effusion was noted on ultrasound. Post thoracentesisdemonstrated minimal residual fluid. IMPRESSION IMPRESSION: right Nephroureteral catheter check and exchange. Ultrasound-guided right thoracentesis. PLAN: Patient should return to IR in 3 months for routine maintenance catheterexchange. Thoracentesis p.r.n. symptomatic relief. Geeta KINNEYNP RAD SPECIAL PROCED URES documented in this encounter Visit Diagnoses Diagnosis Nephrostomy status (HCC) Status of other artificial opening of urinary tract Pleural effusion, right Unspecified pleural effusion documented in this encounter Administered Medications Inactive Administered Medications - up to 3 most recent administrations Medication Order MAR Action Action Date Dose Rate Site buffered lidocaine 1 % inj Intradermal, ONCE PRN INTRA PROCEDURE, Starting on Mon04/19/23 at 1145, Until Mon04/19/23 at 1145, Intra-Op Given 04/19/2023 11:45 AM EST 10 mL Back Right cefTRIAXone in dextrose (Rocephin) IVPB 1 g IV Piggyback, 1 g, ONCE, 1 dose, On Mon04/19/23 at 1145, Administer over 30 Minutes New Bag 04/19/2023 11:02 AM EST 1 g 100 mL/hr midazolam (Versed) 2 MG/2ML inj ONCE PRN INTRA PROCEDURE, Starting on Mon04/19/23 at 1114, Until Mon04/19/23 at 1114, Intra-Op Given 04/19/2023 11:14 AM EST 2 mg documented in this encounter Active and Recently Administered Medications Times are shown in EST. Scheduled Medication Order 04/17/2023 04/18/2023 04/19/2023 cefTRIAXone in dextrose (Rocephin) IVPB 1 g (COMPLETED) IV Piggyback, 1 g, ONCE, 1 dose, On Mon04/19/23 at 1145, Administer over 30 Minutes 1102 (New Bag - Prov ider: Demi Saunders RN) Iodixanol (Visipaque 320) inj 50 mL 50 mL, Intravenous, ONCE, On Mon04/19/23 at 1245, For 1 dose, Intra-Op 1245 (Due) PRN Medication Order 04/17/2023 04/18/2023 04/19/2023 buffered lidocaine 1 % inj (COMPLETED) Intradermal, ONCE PRN INTRA PROCEDURE, Starting on Mon04/19/23 at 1145, Until Mon04/19/23 at 1145, Intra-Op 1145 (Given - Provid er: Xander Hickman MD) midazolam (Versed) 2 MG/2ML inj (COMPLETED) ONCE PRN INTRA PROCEDURE, Starting on Mon04/19/23 at 1114, Until Mon04/19/23 at 1114, Intra-Op 1114 (Given - Provid er: Angela Andres RN) documented in this encounter Advance Directives Latest Code Status on File Code Status Date Activated Date Inactivated Comments Full Code 04/15/2015 4:40 PM 04/16/2015 5:24 PM This order reflects the patients wishes and were consensually agreed upon. Care Teams National Sales Relationship Specialty Start Date End Date Edgar Gibbs MD [address] [place] [id number] PCP - General Family Medicine 07/03/20 documented as of this encounter"
--- OUTSIDE RECORDS SUMMARY | 2023-06-02 11:44 | External Medical Summary | Summary of Care ---
Author Name Unknown Organization [facility] Address [address] [facility] [place] [address] Phone [phone] Care Team Providers Care Supervisor [employer] Name Role Phone Edgar Gibbs MD Primary Care P rovider Encounter Details Date Type Department Care Team (Late st Contact Info) Description 04/12/2023 Result Scan Unspecified Department Tino Stapleton MD [address] [facility] [place] [id number] <No scans attached> Allergies Active Allergy Reactions Criticality Noted Date Comments Latex 07/19/2019 Pantoprazole Sodium Edema face/lips/tongue High /0 02/2014 documented as of this encounter (statuses as of 04/26/2023) Medications Medication Sig Dispensed Refills Start Date End Date Status Cholecalciferol 2000 units Capsule Take 1 Capsule by mouth in the morning. 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 Every 3 months 0 11/18/2020 Active Incruse Ellipta 62.5 MCG/ACT Inhalation Aerosol Powder Breath Activated (umeclidinium [place])Indications: Chronic obstructive pulmonary disease, unspecified COPD type [...] as of this encounter (statuses as of 04/26/2023) Active Problems Problem Noted Date Diagnosed Date [...] as of this encounter (statuses as of 04/26/2023) Resolved Problems Problem Noted Date Diagnosed Date [...] as of this encounter (statuses as of 04/26/2023) Immunizations Name Administration Dates Next Due COVID-19 mRNA, LNP-s, No Pre serve, 2-Dose Series (Kaybus) 01/19/2021,06/10/2020,05/20/2020 HEP B - Hepatitis B (Dialysis/Immumocomp Pt) 12/20/2018,07/21/2018,06/19/2018 PPD 05/03/2018 Pneumococcal Conjugate Vacci ne, 20-valent ([id number]) 03/16/2022 Pneumococcal Polysaccharide PPV23 (Pneumovax) 12/28/2017 Seasonal [...] 1:40 PM EDT Office Visit Pulmonary Medicine, [facility] [address] [facility] [place] [address] Tino Stapleton MD [address] [place] [address] 06/07/2023 11:50 AM EDT Office Visit [facility] [address] [place] [address] Edgar Gibbs MD [address] [place] [phone] 07/19/2023 11:00 AM EDT Appointment Interventional Radiology [facility] [place] [place], [facility] 1st Floor [address] [place] [address] 10/25/2023 3:15 PM EDT Office Visit Urology, [facility] [address] [facility] [place] [address] Travon Canales MD [address] [facility] [address] [place] [address] 02/26/2024 9:30 AM EST Cardiac Studies Cardiac Studies, [facility] [address] [facility] [place] [address] Health Maintenance Due Date Last Done Comments Alpha-1 Antitrypsin 05[birth year]18/1963 Hepatitis C Screening 05/18/1963 *COPD SEVERITY VERIFIED BY PFT 03/05/2022 COVID-19 Vaccine ( season) 2022 01/19/2021, 06/10/2020, 05/20/2020 DISCUSS TOBACCO CESSATION (REFER TO SMARTSET #[id number]) 06/04/2023 06/03/2022 Depression Screening 06/04/2023 06/03/2022 O2 [...] Procedure Name Priority Date/Time Associated Diagnosis Comments PROCEDURE SCANNED RESULT 04/12/2023 PROCEDURE SCANNED RESULT 04/12/2023 documented in this encounter Results * PROCEDURE SCANNED RESULT (04/12/2023) 04/12/2023 Tino Stapleton MD SURGERY * PROCEDURE SCANNED RESULT (04/12/2023) 04/12/2023 Tino Stapleton MD SURGERY documented in this encounter Advance Directives Latest Code Status on File Code Status Date Activated Date Inactivated Comments Full Code 04/15/2015 4:40 PM 04/16/2015 5:24 PM This order reflects the patients wishes and were consensually agreed upon. Care Teams Supervisor [employer] Relationship Specialty Start Date End Date Edgar Gibbs MD [address] [place] [id number] PCP - General Family Medicine 07/03/20 documented as of this encounter
--- OUTSIDE RECORDS SUMMARY | 2023-06-02 11:44 | External Medical Summary ---
Author Name Unknown Address Unknown Organization [id number]:[facility] [place] - [address] [place] [address] Laboratory Report Ordering Provider Test Date Status RAJIV CENTENO 04/19/2023 09:16:52 Final Warfarin Therapy
INR: 2 .0-3.0 conventional anticoagulation
INR: 2.5- 3.5 high intensity anticoagulation Observation Date Value Abnormality Reference (Units ) Status PT 04/19/2023 09:16:52 14.7 11.6-15.2 (seconds) Final INR 04/19/2023 09:16:52 1.2 0.8-1.2 Final Performing Location [facility] [place] - [address] [place] [address]
--- OUTSIDE RECORDS SUMMARY | 2023-06-02 11:44 | External Medical Summary | Summary of Care ---
Author Name Unknown Organization [facility] Address [address] [place] [address] Phone [phone] Care Team Providers Care Trademark Paralegal Name Role Phone Edgar Gibbs MD Primary Care P rovider Encounter Details Date Type Department Care Team (Late st Contact Info) Description 04/17/2023 Orders Only Interventional Radiology [facility] [place] 1st Floor [address] [place] [address] Nhung Sepulveda LPN Encounter for general adult medical examination w/o abnormal findings* Allergies Active Allergy Reactions Criticality Noted Date [...] chronic, stage V (GFR under 15 ml/min) ([facility]) take 2 pills 3 x daily 180 Tab 11 10/26/2018 Active Sodium Chloride Flush (NORMAL SALINE FLUSH) 0.9 % SOLN injection FLUSH ONCE DAILY WITH 10ml 300 mL 1 03/12/2019 Active Leuprolide Acetate (3 Month) 22.5 MG Subcutaneous Kit ([facility]) Inject 22.5 mg under the skin. Every 3 months 0 11/18/2020 Active Incruse Ellipta 62.5 MCG/ACT Inhalation Aerosol Powder Breath Activated (umeclidinium [place])Indications: Chronic obstructive pulmonary disease, unspecified COPD type [...] mRNA, LNP-s, No Pre serve, 2-Dose Series (Cuciniale) 01/19/2021,06/10/2020,05/20/2020 HEP B - Hepatitis B (Dialysis/Immumocomp Pt) 12/20/2018,07/21/2018,06/19/2018 PPD 05/03/2018 Pneumococcal Conjugate Vacci ne, 20-valent ([id number]) 03/16/2022 Pneumococcal Polysaccharide PPV23 (Pneumovax) 12/28/2017 Seasonal [...] 04/19/2023 11:00 AM EST Appointment Interventional Radiology [facility] [place] [place] 1st Floor [address] [place] [address] 04/24/2023 1:00 PM EST Nurse Only Urology, [facility] [address] [facility] [place] [address] [facility], Nurse Urology [facility] [address] [facility] [place] [address] 05/17/2023 1:40 PM EDT Office Visit Pulmonary Medicine, [facility] [address] [facility] [place] [address] Tino Stapleton MD [address] [facility] [place] [address] 06/07/2023 11:50 AM EDT Office Visit Family [facility] [address] [place] [address] Edgar Gibbs MD [address] [place] [address] 10/25/2023 3:15 PM EDT Office Visit Urology, [facility] [address] [facility] [place] [address] Travon Canales MD [address] [place] [address] [place] [address] 02/26/2024 9:30 AM EST Cardiac Studies Cardiac Studies, [facility] [address] [facility] [place] [address] Scheduled Orders Name Type Priority Associated Diagnoses Orde r Schedule CBC Lab STAT Encounter for general adult medical examination w/o abnormal findings Expected: 04/17/2023, Expires: 05/16/2023 PT INR Lab STAT Encounter for general adult medical examination w/o abnormal findings Expected: 04/17/2023, Expires: 05/18/2023 Health Maintenance Due Date Last Done Comments [...] as of this encounter Visit Diagnoses Diagnosis Encounter for general adult medical examination w/o abnormal findings- Primary Unspecified general medical examination documented in this encounter Advance Directives Latest Code Status on File Code Status Date Activated Date Inactivated Comments Full Code 04/15/2015 4:40 PM 04/16/2015 5:24 PM This order reflects the patients wishes and were consensually agreed upon. Care Teams [employer] Paralegal Relationship Specialty Start Date End Date Edgar Gibbs MD [address] [place] [id number] PCP - General Family Medicine 07/03/20 documented as of this encounter
--- OUTSIDE RECORDS SUMMARY | 2023-06-02 11:44 | External Medical Summary | Summary of Care ---
Author Name Unknown Organization [facility] Address [address] [facility] [place] [address] Phone [phone] Care Team Providers Care Groover And Turner Name Role Phone Edgar Gibbs MD Primary Care P rovider Encounter Details Date Type Department Care Team (Late st Contact Info) Description 04/13/2023 Telephone Pulmonary Medicine Deedee Gold [address] [place] [phone] Tino Stapleton MD [address] [place] [address] Allergies Active Allergy Reactions Criticality Noted Date Comments Latex 07/19/2019 Pantoprazole Sodium Edema face/lips/tongue High 04/0 02/2014 documented as of this encounter (statuses as of 04/13/2023) Medications Medication Sig Dispensed Refills Start Date End Date Status Cholecalciferol 2000 units Capsule Take 1 Capsule by mouth in the morning. 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 Every 3 months 0 11/18/2020 Active Incruse Ellipta 62.5 MCG/ACT Inhalation Aerosol Powder Breath Activated (umeclidinium [place])Indications: Chronic obstructive pulmonary disease, unspecified COPD type [...] as of this encounter (statuses as of 04/13/2023) Active Problems Problem Noted Date Diagnosed Date [...] as of this encounter (statuses as of 04/13/2023) Resolved Problems Problem Noted Date Diagnosed Date [...] as of this encounter (statuses as of 04/13/2023) Immunizations Name Administration Dates Next Due COVID-19 mRNA, LNP-s, No Pre serve, 2-Dose Series ([employer]) 01/19/2021,06/10/2020,05/20/2020 HEP B - Hepatitis B (Dialysis/Immumocomp Pt) 12/20/2018,07/21/2018,06/19/2018 PPD 05/03/2018 Pneumococcal Conjugate Vacci ne, 20-valent ([id number]) 03/16/2022 Pneumococcal Polysaccharide PPV23 (Pneumovax) 12/28/2017 Seasonal [...] encounter Miscellaneous Notes * Telephone Encounter - Myles Heller OSA - 04/13/2023 8:28 AM EST Orders in 04/13 02 documented in this encounter Plan of Treatment Upcoming Encounters Date Type Department Care Team (Late st Contact Info) Description 04/17/2023 1:30 PM EST Nurse Only Urology, [facility] 132 [facility] [place] [address] Lance Nurse Urology [facility] 132 [facility] [place] [address] 04/19/2023 11:00 AM EST Appointment Interventional Radiology [facility], [facility] 1st Floor [address] [place] [address] 06/07/2023 11:50 AM EDT Office Visit [facility] [address] [place] [address] Edgar Gibbs MD [address] [place] [address] 10/25/2023 3:15 PM EDT Office Visit Urology, [facility] [place] [address] Travon Canales MD 27 [facility] [address] [place] [address] 02/26/2024 9:30 AM EST Cardiac Studies Cardiac Studies, [facility] [address] [place] [address] Health Maintenance Due Date Last Done Comments [...] and were consensually agreed upon. Care Teams Groover And Turner Relationship Specialty Start Date End Date Edgar Gibbs MD [address] [place] [address] [place] [address] PCP - General Family Medicine 07/03/20 documented as of this encounter
--- OUTSIDE RECORDS SUMMARY | 2023-06-02 11:44 | External Medical Summary | Summary of Care ---
Author Name Unknown Organization [facility] Address [address] [place] [address] Phone [phone] Care Team Providers Care Coupling Machine Operator Name Role Phone Edgar Gibbs MD Primary Care P rovider Reason for Visit * Reason Comments Outpatient Testing Encounter Details Date Type Department Care Team (Late st Contact Info) Description 04/19/2023 9:20 AM EST Laboratory Outpatient Laboratory, [place] [address] [place] [address] [place], Lab B1a [address] [place] [address] Encounter for general adult medical examination w/o abnormal findings Allergies Active Allergy Reactions Criticality Noted Date Comments Latex 07/19/2019 Pantoprazole Sodium Edema face/lips/tongue High 04/0 02/2014 documented as of this encounter (statuses as of 04/19/2023) Medications Medication Sig Dispensed Refills Start Date End Date Status Cholecalciferol 2000 units Capsule Take 1 Capsule by mouth in the morning. 30 Cap 3 03/28/2017 Suspended Calcium Acetate, Phos Binder, 667 MG TABSIndications:Ki dney disease, chronic, stage V (GFR under 15 ml/min) ([facility]) take 2 pills 3 x daily 180 Tab 11 10/26/2018 Suspended Additional Information Sodium Chloride Flush (NORMAL SALINE FLUSH) 0.9 % SOLN injection FLUSH ONCE DAILY WITH 10ml 300 mL 1 03/12/2019 Suspended Additional Information Leuprolide Acetate (3 Month) 22.5 MG Subcutaneous Kit ([employer]) Inject 22.5 mg under the skin. Every 3 months 0 11/18/2020 Suspended Incruse Ellipta 62.5 MCG/ACT Inhalation Aerosol Powder Breath Activated (umeclidinium [place])Indication s:Chronic obstructive pulmonary disease, unspecified COPD type (HCC) Inhale 1 Puff by mouth in the morning. 30 Each 11 03/02/2022 Suspended Additional Information Citalopram Hydrobromide 10 MG Oral Tablet (CeleXA) TAKE 1 TABLET BY MOUTH ONCE DAILY AT BEDTIME 30 Tablet 5 05/09/2022 Suspended Additional Information Atenolol 50 MG Oral Tablet (Tenormin) TAKE 1 TABLET BY MOUTH ONCE DAILY AT BEDTIME 90 Tablet 1 11/22/2022 Suspended Additional Information Nephro-Farzana 0.8 MG Oral Tablet TAKE ONE TABLET BY MOUTH ONCE DAILY 90 Tablet 3 11/22/2022 Suspended Additional Information Ventolin HFA 108 (90 Base) MCG/ACT Inhalation Aerosol SolutionIndication s:COPD exacerbation (HCC) INHALE TWO PUFFS BY MOUTH EVERY 4 HOURS NEEDED FOR COUGH, SHORTNESS OF BREATH, OR WHEEZING 18 g 5 01/20/2023 Suspended Additional Information Patient not taking.Reported on 04/12/2023 LORazepam 0.5 MG Oral Tablet (Ativan)Indication s:Panic attack as reaction to stress Take 1 Tablet by mouth every 8 hours as needed for Anxiety. 30 Tablet 0 03/15/2023 Suspended Additional Information amLODIPine Besylate 5 MG Oral Tablet (Norvasc) TAKE 1 TABLET BY MOUTH ONCE DAILY IN THE MORNING 90 Tablet 2 04/04/2023 Suspended Additional Information documented as of this encounter (statuses as of 04/19/2023) Active Problems Problem Noted Date Diagnosed Date [...] as of this encounter (statuses as of 04/19/2023) Resolved Problems Problem Noted Date Diagnosed Date [...] as of this encounter (statuses as of 04/19/2023) Immunizations Name Administration Dates Next Due COVID-19 mRNA, LNP-s, No Pre serve, 2-Dose Series ([employer]) 01/19/2021,06/10/2020,05/20/2020 HEP B - Hepatitis B (Dialysis/Immumocomp Pt) 12/20/2018,07/21/2018,06/19/2018 PPD 05/03/2018 Pneumococcal Conjugate Vacci ne, 20-valent ([id number]) 03/16/2022 Pneumococcal Polysaccharide PPV23 (Pneumovax) 12/28/2017 Seasonal [...] Team (Late st Contact Info) Description 04/19/2023 9:24 AM EST - Present Hospital Encounter Radiology Waiting Room [facility] 1st Floor [address] [place] [address] Gera Mcdaniel MD [address] [place] [address] Arrived 04/24/2023 1:00 PM EST Nurse Only Urology, [facility] 132 [place] [address] [facility], Nurse Urology [facility] [address] [place] [address] 05/17/2023 1:40 PM EDT Office Visit Pulmonary Medicine, [facility] 132 [place] [address] Tino Stapleton MD [address] [facility] [place] [address] 06/07/2023 11:50 AM EDT Office Visit [address] [phone] Edgar Gibbs MD [address] [place] [address] 10/25/2023 3:15 PM EDT Office Visit Urology, [facility] 132 [facility] [place] [address] Travon Canales MD [address] [place] [address] [place] [address] 02/26/2024 9:30 AM EST Cardiac Studies Cardiac Studies, [facility] 132 [facility] [place] [address] Pending Results Name Type Priority Associated Diagnoses Date /Time CBC Lab STAT Encounter for general adult medical examination w/o abnormal findings 04/19/2023 9:16 AM EST PT INR Lab STAT Encounter for general adult medical examination w/o abnormal findings 04/19/2023 9:16 AM EST Health Maintenance Due Date Last Done Comments [...] as of this encounter Visit Diagnoses Diagnosis Nephrostomy status (HCC) Status of other artificial opening of urinary tract Encounter for general adult medical examination w/o abnormal findings Unspecified general medical examination documented in this encounter Advance Directives Latest Code Status on File Code Status Date Activated Date Inactivated Comments Full Code 04/15/2015 4:40 PM 04/16/2015 5:24 PM This order reflects the patients wishes and were consensually agreed upon. Care Teams Coupling Machine Operator Relationship Specialty Start Date End Date Edgar Gibbs MD [address] [place] [address] PCP - General Family Medicine 07/03/20 documented as of this encounter
--- OUTSIDE RECORDS SUMMARY | 2023-06-02 11:44 | External Medical Summary | Summary of Care ---
Author Name Unknown Organization [facility] Address [address] [facility] [place] [address] Phone [phone] Care Team Providers Care Prep Cook Name Role Phone Edgar Gibbs MD Primary Care P rovider Encounter Details Date Type Department Care Team (Late st Contact Info) Description 04/17/2023 Telephone Pulmonary Medicine Deedee Gold [address] [place] [phone] Tino Stapleton MD [address] [place] [address] Allergies Active Allergy Reactions Criticality Noted Date [...] chronic, stage V (GFR under 15 ml/min) ([facility]) take 2 pills 3 x daily 180 Tab 11 10/26/2018 Active Sodium Chloride Flush (NORMAL SALINE FLUSH) 0.9 % SOLN injection FLUSH ONCE DAILY WITH 10ml 300 mL 1 03/12/2019 Active Leuprolide Acetate (3 Month) 22.5 MG Subcutaneous Kit ([employer]) Inject 22.5 mg under the skin. Every 3 months 0 11/18/2020 Active Incruse Ellipta 62.5 MCG/ACT Inhalation Aerosol Powder Breath Activated (umeclidinium [place])Indications: Chronic obstructive pulmonary disease, unspecified COPD type [...] mRNA, LNP-s, No Pre serve, 2-Dose Series ([employer]) 01/19/2021,06/10/2020,05/20/2020 HEP B - Hepatitis B (Dialysis/Immumocomp Pt) 12/20/2018,07/21/2018,06/19/2018 PPD 05/03/2018 Pneumococcal Conjugate Vacci ne, 20-valent ([id number]) 03/16/2022 Pneumococcal Polysaccharide PPV23 (Pneumovax) 12/28/2017 Seasonal [...] Telephone Encounter - Myles Heller OSA - 04/17/2023 7:36 AM EST Per TH-the patient would like to get a POC instead. A walk test is needed to order this, and his has stated that this was already completed. Please attach these orders/testing when possible, thank you! documented in this encounter Plan of Treatment Upcoming Encounters Date Type Department Care Team (Late st Contact Info) Description 04/17/2023 1:30 PM EST [facility] [address] [place] [address] Lance, Nurse Urology [place] [address] [place] [address] 04/19/2023 11:00 AM EST Appointment Interventional Radiology [facility], [address] [place] 1st Floor [address] [facility] [place] [address] 05/17/2023 1:40 PM EDT [facility] [address] [place] [address] Tino Stapleton MD [address] [place] [address] 06/07/2023 11:50 AM EDT Office Visit [address] [place] [phone] Edgar Gibbs MD 68 [facility] [place] [address] 10/25/2023 3:15 PM EDT Office Visit Urology, [facility] 132 [facility] [place] [address] Travon Canales MD 27 [facility] [place] [address] [place] [address] 02/26/2024 9:30 AM EST Cardiac Studies Cardiac Studies, [facility] 132 [facility] [place] [address] Health Maintenance Due Date Last Done Comments [...] and were consensually agreed upon. Care Teams Prep Cook Relationship Specialty Start Date End Date Edgar Gibbs MD [address] [place] [address] PCP - General Family Medicine 07/03/20 documented as of this encounter
--- OUTSIDE RECORDS SUMMARY | 2023-06-02 11:44 | External Medical Summary | Summary of Care ---
Author Name Unknown Organization [facility] Address [address] [facility] [place] [address] Phone [phone] Care Team Providers Care Regulatory Consultant Name Role Phone Edgar Gibbs MD Primary Care P millieder Reason for Visit * Reason Comments Outpatient Testing Encounter Details Date Type Department Care Team (Late st Contact Info) Description 04/12/2023 4:50 PM EST Laboratory Laboratory, [facility] 132 [facility] [place] [phone] [employer] 132 [facility] [address] Prostate cancer (HCC) Allergies Active Allergy Reactions Criticality Noted Date Comments Latex 07/19/2019 Pantoprazole Sodium Edema face/lips/tongue High 04/0 02/2014 documented as of this encounter (statuses as of 04/12/2023) Medications Medication Sig Dispensed Refills Start Date [...] Acetate (3 Month) 22.5 MG Subcutaneous Kit ([employer]) Inject 22.5 mg under the skin. Every 3 months 0 11/18/2020 Active Incruse Ellipta 62.5 MCG/ACT Inhalation Aerosol Powder Breath Activated (umeclidinium [place])Indications: Chronic obstructive pulmonary disease, unspecified COPD type [...] THE MORNING 90 Tablet 2 04/04/2023 Active Hospital, Clinic, or Other Facility Administered Medication Ordered Dose Route Frequency Start Date End Date Status Leuprolide Acetate (6 Month) (Lupron) inj 45 mgIndications:Prostate cancer (HCC) 45 mg IM ONCE 04/12/2023 04/13/2023 Active documented as of this encounter (statuses as of 04/12/2023) Active Problems Problem Noted Date Diagnosed Date [...] as of this encounter (statuses as of 04/12/2023) Resolved Problems Problem Noted Date Diagnosed Date [...] as of this encounter (statuses as of 04/12/2023) Immunizations Name Administration Dates Next Due COVID-19 mRNA, LNP-s, No Pre serve, 2-Dose Series ([employer]) 01/19/2021,06/10/2020,05/20/2020 HEP B - Hepatitis B (Dialysis/Immumocomp Pt) 12/20/2018,07/21/2018,06/19/2018 PPD 05/03/2018 Pneumococcal Conjugate Vacci ne, 20-valent ([id number]) 03/16/2022 Pneumococcal Polysaccharide PPV23 (Pneumovax) 12/28/2017 Seasonal [...] 04/17/2023 1:30 PM EST Nurse Only Urology, [facility] 132 [facility] [place] [address] [place], Nurse Urology [facility] 132 [facility] [place] [address] 04/19/2023 11:00 AM EST Appointment Interventional Radiology [facility], [facility] 1st Floor [address] [place] [address] 06/07/2023 11:50 AM EDT Office Visit [facility] [address] [place] [address] Edgar Gibbs MD 68 [place] [address] 10/25/2023 3:15 PM EDT Office Visit Urology, [facility] 132 [facility] [place] [address] Travon Canales MD [address] [place] [address] [place] [address] 02/26/2024 9:30 AM EST Cardiac Studies Cardiac Studies, [facility] [address] [facility] [place] [address] Pending Results Name Type Priority Associated Diagnoses Date /Time PSA Lab Routine Prostate cancer (HCC) 04/12/2023 4:50 PM EST Health Maintenance Due Date Last Done [...] as of this encounter Visit Diagnoses Diagnosis Prostate cancer (HCC) Malignant neoplasm of prostate documented in this encounter Advance Directives Latest Code Status on File Code Status Date Activated Date Inactivated Comments Full Code 04/15/2015 4:40 PM 04/16/2015 5:24 PM This order reflects the patients wishes and were consensually agreed upon. Care Teams Regulatory Consultant Relationship Specialty Start Date End Date Edgar Gibbs MD NPI: [id number] [place] [id number] PCP - General Family Medicine 07/03/20 documented as of this encounter
--- OUTSIDE RECORDS SUMMARY | 2023-06-02 11:44 | External Medical Summary | Summary of Care ---
Author Name Unknown Organization [facility] Address [address] [facility] [place] [address] Phone [phone] Care Team Providers Care Beach Attendant Name Role Phone Edgar Gibbs MD Primary Care P rovider Encounter Details Date Type Department Care Team (Late st Contact Info) Description 04/13/2023 Result Scan Unspecified Department <No scans attached> Allergies Active Allergy Reactions [...] chronic, stage V (GFR under 15 ml/min) ([facility]) take 2 pills 3 x daily 180 Tab 11 10/26/2018 Active Sodium Chloride Flush (NORMAL SALINE FLUSH) 0.9 % SOLN injection FLUSH ONCE DAILY WITH 10ml 300 mL 1 03/12/2019 Active Leuprolide Acetate (3 Month) 22.5 MG Subcutaneous Kit ([employer]) Inject 22.5 mg under the skin. Every 3 months 0 11/18/2020 Active Incruse Ellipta 62.5 MCG/ACT Inhalation Aerosol Powder Breath Activated (umeclidinium [place])Indications: Chronic obstructive pulmonary disease, unspecified COPD type ([facility]) Inhale 1 Puff by mouth in the [...] mRNA, LNP-s, No Pre serve, 2-Dose Series ([employer]) 01/19/2021,06/10/2020,05/20/2020 HEP B - Hepatitis B (Dialysis/Immumocomp Pt) 12/20/2018,07/21/2018,06/19/2018 PPD 05/03/2018 Pneumococcal Conjugate Vacci ne, 20-valent ([id number]) 03/16/2022 Pneumococcal Polysaccharide PPV23 (Pneumovax) 12/28/2017 Seasonal [...] 04/19/2023 11:00 AM EST Appointment Interventional Radiology [facility], [facility] 1st Floor [address] [place] [address] 04/24/2023 1:00 PM EST Nurse Only Urology, [address] [place] [address] [place], Nurse Urology [address] [place] [address] 05/17/2023 1:40 PM EDT Office Visit Pulmonary Medicine, [facility] 132 [facility] [place] [address] Tino Stapleton MD [address] [facility] [address] 06/07/2023 11:50 AM EDT Office Visit [address] [phone] Edgar Gibbs MD [address] [place] [address] 10/25/2023 3:15 PM EDT Office Visit Urology, [facility] 132 [facility] [place] [address] Travon Canales MD [address] [place] [address] [place] [address] 02/26/2024 9:30 AM EST Cardiac Studies Cardiac Studies, [facility] 132 [place] [address] Health Maintenance Due Date Last Done Comments [...] Date/Time Associated Diagnosis Comments OUTSIDE LAB RESULTS 04/13/2023 documented in this encounter Results * OUTSIDE LAB RESULTS (04/13/2023) 04/13/2023 No Physician Data Unknown LABORATORY documented in this encounter Advance Directives Latest Code Status on File Code Status Date Activated Date Inactivated Comments Full Code 04/15/2015 4:40 PM 04/16/2015 5:24 PM This order reflects the patients wishes and were consensually agreed upon. Care Teams Beach Attendant Relationship Specialty Start Date End Date Edgar Gibbs MD [address] [place] [address] PCP - General Family Medicine 07/03/20 documented as of this encounter
--- OUTSIDE RECORDS SUMMARY | 2023-06-02 11:44 | External Medical Summary | Summary of Care ---
Author Name Unknown Organization [facility] Address [address] [facility] [place] [address] Phone [phone] Care Team Providers Care Apparel Sales Associate Name Role Phone Edgar Gibbs MD Primary Care P rovider Encounter Details Date Type Department Care Team (Late st Contact Info) Description 04/17/2023 Telephone Urology, [facility] 132 [facility] [place] [address] Travon Canales MD 27 [facility] [place] [address] [place] [address] [...] chronic, stage V (GFR under 15 ml/min) ([facility]) take 2 pills 3 x daily 180 Tab 11 10/26/2018 Active Sodium Chloride Flush (NORMAL SALINE FLUSH) 0.9 % SOLN injection FLUSH ONCE DAILY WITH 10ml 300 mL 1 03/12/2019 Active Leuprolide Acetate (3 Month) 22.5 MG Subcutaneous Kit ([employer]) Inject 22.5 mg under the skin. Every 3 months 0 11/18/2020 Active Incruse Ellipta 62.5 MCG/ACT Inhalation Aerosol Powder Breath Activated (umeclidinium [place])Indications: Chronic obstructive pulmonary disease, unspecified COPD type [...] mRNA, LNP-s, No Pre serve, 2-Dose Series ([employer]) 01/19/2021,06/10/2020,05/20/2020 HEP B - Hepatitis B (Dialysis/Immumocomp Pt) 12/20/2018,07/21/2018,06/19/2018 PPD 05/03/2018 Pneumococcal Conjugate Vacci ne, 20-valent ([id number]) 03/16/2022 Pneumococcal Polysaccharide PPV23 (Pneumovax) 12/28/2017 Seasonal [...] encounter Miscellaneous Notes * Telephone Encounter - Be [place] OSA - 04/17/2023 8:55 AM EST Rescheduled to 04/24/23 * Telephone Encounter - Emily Grider LPN - 04/17/2023 8:41 AM EST Please call patient to reschedule Lupron visit today, medication is not in stock at this time. We should receive the medication Monday. Emily Saeed documented in this encounter Plan of Treatment Upcoming Encounters Date Type Department Care Team (Late st Contact Info) Description 04/19/2023 11:00 AM EST Appointment Interventional Radiology [facility], [place] [place] 1st Floor [address] [place] [address] 04/24/2023 1:00 PM EST Nurse Only Urology, [facility] 132 [facility] [place] [address] Nurse Lance Urology [place]ma[place] [address] [place] [address] 05/17/2023 1:40 PM EDT [facility] 132 [facility] [place] [address] Tino Stapleton MD [address] [place] [address] 06/07/2023 11:50 AM EDT Office Visit [facility] 68 [place] [phone] Edgar Gibbs MD 68 [place] [address] 10/25/2023 3:15 PM EDT Office Visit Urology, [facility] 132 [place] [address] Travon Canales MD 27 [facility] [address] [place] [address] 02/26/2024 9:30 AM EST Cardiac Studies Cardiac Studies, [facility] 132 [place] [address] Health Maintenance Due Date Last Done Comments [...] and were consensually agreed upon. Care Teams Apparel Sales Associate Relationship Specialty Start Date End Date Edgar Gibbs MD [address] [place] [address] PCP - General Family Medicine 07/03/20 documented as of this encounter
--- OUTSIDE RECORDS SUMMARY | 2023-06-02 11:44 | External Medical Summary | Summary of Care ---
Author Name Unknown Organization [facility] Address [address] [facility] [place] [address] Phone [phone] Care Team Providers Care Nurses' Registry Director Name Role Phone Edgar Gibbs MD Primary Care P [facility] Reason for Visit * Precert (Within 30 days (routine)) - Authorized Specialty Diagnoses / Procedures Referred By Contac t Referred To Contact Urology Diagnoses Malignant neoplasm of prostate (HCC) Procedures NM LEUPROLIDE ACETATE SUSPNSION Travon Canales MD [address] [place] [address] Travon Canales MD [address] [place] [address] Referral ID Status Reason Start Date Expiration Date V isits Requested Visits Authorized [id number] Authorized Precert 04/13/2023 02/26/2099 [id number] Encounter Details Date Type Department Care Team (Late st Contact Info) Description 04/24/2023 1:00 PM EST Nurse Only [facility], [facility] [address] [place] [address] Lance Nurse Urology Ismael [address] [place] [address] Allergies Active Allergy Reactions Criticality Noted Date Comments Latex 07/19/2019 Pantoprazole Sodium Edema face/lips/tongue High 04/0 02/2014 documented as of this encounter (statuses as of 04/24/2023) Medications Medication Sig Dispensed Refills Start Date [...] Acetate (3 Month) 22.5 MG Subcutaneous Kit ([employer]) Inject 22.5 mg under the skin. Every 3 months 0 11/18/2020 Active Incruse Ellipta 62.5 MCG/ACT Inhalation Aerosol Powder Breath Activated (umeclidinium Orange)Indications: Chronic obstructive pulmonary disease, unspecified COPD type ([facility]) Inhale 1 Puff by mouth [...] Base) MCG/ACT Inhalation Aerosol SolutionIndications: COPD exacerbation ([facility]) INHALE TWO PUFFS BY MOUTH [...] mgIndications:Prostate cancer (HCC) 45 mg IM ONCE 04/24/2023 04/24/2023 Ended documented as of this encounter (statuses as of 04/24/2023) Active Problems Problem Noted Date Diagnosed Date [...] as of this encounter (statuses as of 04/24/2023) Resolved Problems Problem Noted Date Diagnosed Date [...] as of this encounter (statuses as of 04/24/2023) Immunizations Name Administration Dates Next Due COVID-19 mRNA, LNP-s, No Pre serve, 2-Dose Series ([facility]) 01/19/2021,06/10/2020,05/20/2020 HEP B - Hepatitis B (Dialysis/Immumocomp Pt) 12/20/2018,07/21/2018,06/19/2018 PPD 05/03/2018 Pneumococcal Conjugate Vacci ne, 20-valent ([id number]) 03/16/2022 Pneumococcal Polysaccharide PPV23 (Pneumovax) 12/28/2017 Seasonal [...] No 04/15/2015 documented as of this encounter Nursing Notes * Danae Gentile LPN - 04/24/2023 1:16 PM EST Lupron 45 Mg was given IM in [facility] documented in this encounter Plan of Treatment Upcoming Encounters Date Type Department Care Team (Late st Contact Info) Description 05/17/2023 1:40 PM EDT Office Visit Pulmonary Medicine, [address] [place] [address] Tino Stapleton MD [address] [place] [address] 06/07/2023 11:50 AM EDT Office Visit [facility] [address] [place] [phone] Edgar Gibbs MD [address] [place] [address] 07/19/2023 11:00 AM EDT Appointment Interventional Radiology [facility], [facility] 1st Floor [address] [place] [address] 10/25/2023 3:15 PM EDT Office Visit Urology, [facility] [address] [facility] [place] [address] Travon Canales MD [address] [facility] [address] [place] [address] 02/26/2024 9:30 AM EST Cardiac Studies Cardiac Studies, [facility] [address] [facility] [place] [address] Health Maintenance Due Date Last Done Comments [...] this encounter Visit Diagnoses Diagnosis Prostate cancer (HCC)- Primary Malignant neoplasm of prostate documented in this encounter Administered Medications Inactive Administered Medications - up to 3 most recent administrations Medication Order MAR Action Action Date Dose Rate Site Leuprolide Acetate (6 Month) (Lupron) inj 45 mg 45 mg, Intramuscular, ONCE, On 04/24/23 at 1700, For 1 dose Given 04/24/2023 4:29 PM EST 45 mg Ventrogluteal Left documented in this encounter Advance Directives Latest Code Status on File Code Status Date Activated Date Inactivated Comments Full Code 04/15/2015 4:40 PM 04/16/2015 5:24 PM This order reflects the patients wishes and were consensually agreed upon. Care Teams Nurses' Registry Director Relationship Specialty Start Date End Date Edgar Gibbs MD [address] [place] [address] PCP - General Family Medicine 07/03/20 documented as of this encounter
--- OUTSIDE RECORDS SUMMARY | 2023-06-02 11:44 | External Medical Summary ---
Author Name Unknown Address Unknown Organization K01:[facility] [place] [address] [facility] [address] Laboratory Report Ordering Provider Test Date Status RAJIV CENTENO 04/19/2023 09:16:52 Final Observation Date Value Abnormality Reference (Units ) Status WBC, Total 04/19/2023 09:16:52 6.04 4.00-10.80 (K/uL) Final RBC 04/19/2023 09:16:52 3.23 4.50-5.25 (M/uL) Final Hemoglobin 04/19/2023 09:16:52 10.9 Below low normal 14.0-16.8 (g/dL) Final HCT 04/19/2023 09:16:52 32.5 Below low normal 40.0-48.4 (%) Final MCV 04/19/2023 09:16:52 100.6 82.0-99.5 (fL) Final MCH 04/19/2023 09:16:52 33.7 27.0-34.0 (pg) Final MCHC 04/19/2023 09:16:52 33.5 32.0-36.0 (g/dL) Final RDW 04/19/2023 09:16:52 12.7 11.5-15.5 (%) Final Platelets 04/19/2023 09:16:52 165 140-400 (K/uL) Final MPV 04/19/2023 09:16:52 9.7 6.6-11.1 (fL) Final Nucleated erythrocytes/100 leukocytes [Ratio] in Blood by Automated count 04/19/2023 09:16:52 0 <=0 (/100 WBCs) Final Performing Location [facility] [address] [place] [address]
--- OUTSIDE RECORDS SUMMARY | 2023-06-02 11:44 | External Medical Summary | Summary of Care ---
Author Name Unknown Organization [facility] Address [address] [facility] [place] [address] Phone [phone] Care Team Providers Care Air Hole Driller Name Role Phone Edgar Gibbs MD Primary Care P rovider Reason for Visit * Reason Onset Date Comments Health Maintenance 05/02/2023 Encounter Details Date Type Department Care Team ([facility] st Contact Info) Description 05/02/2023 Telephone Family Practice [address] [phone] Edgar Gibbs MD [address] [place] [address] Health Maintenance Allergies Active Allergy Reactions Criticality Noted Date Comments Latex 07/19/2019 Pantoprazole Sodium Edema face/lips/tongue High 04/0 02/2014 documented as of this encounter (statuses as of 05/02/2023) Medications Medication Sig Dispensed Refills Start Date End Date Status Cholecalciferol 2000 units Capsule Take 1 Capsule by mouth in the morning. 30 Cap 3 03/28/2017 Active Calcium Acetate, Phos Binder, 667 MG TABSIndications:Kidn ey disease, chronic, stage V (GFR under 15 ml/min) ([facility]) take 2 pills 3 x daily 180 Tab 11 10/26/2018 Active Sodium Chloride Flush (NORMAL SALINE FLUSH) 0.9 % SOLN injection FLUSH ONCE DAILY WITH 10ml 300 mL 1 03/12/2019 Active Leuprolide Acetate (3 Month) 22.5 MG Subcutaneous Kit (Eligard) Inject 22.5 mg under the skin. Every 3 months 0 11/18/2020 Active Incruse Ellipta 62.5 MCG/ACT Inhalation Aerosol Powder Breath Activated (umeclidinium [place])Indications: Chronic obstructive pulmonary disease, unspecified COPD type [...] as of this encounter (statuses as of 05/02/2023) Active Problems Problem Noted Date Diagnosed Date [...] as of this encounter (statuses as of 05/02/2023) Resolved Problems Problem Noted Date Diagnosed Date [...] as of this encounter (statuses as of 05/02/2023) Immunizations Name Administration Dates Next Due COVID-19 mRNA, LNP-s, No Pre serve, 2-Dose Series ([employer]) 01/19/2021,06/10/2020,05/20/2020 HEP B - Hepatitis B (Dialysis/Immumocomp Pt) 12/20/2018,07/21/2018,06/19/2018 PPD 05/03/2018 Pneumococcal Conjugate Vacci ne, 20-valent ([id number]) 03/16/2022 Pneumococcal Polysaccharide PPV23 (Pneumovax) 12/28/2017 Seasonal [...] encounter Miscellaneous Notes * Telephone Encounter - Isis Cline LPN - 05/02/2023 11:37 AM EST Care Gaps Comprehensive Care Outreach Last Office/Telemedicine Visit: 02/10/2023 (in office), Visit date not found (telemedicine) Next Office Visit: 06/07/2023 Hemoglobin AIC Results: No results found for: "HEMOGLOBIN A1C" BP Readings from Last 1 Encounters: 04/19/23 143/74 Reviewed Health Maintenance below: Health Maintenance Topic Date Due Alpha-1 Antitrypsin Never done Hepatitis C Screening Never done *COPD SEVERITY VERIFIED BY PFT Never done COVID-19 Vaccine ( season) 2022 DISCUSS TOBACCO CESSATION (REFER TO SMARTSET #3291) 06/04/2023 Depression Screening 06/04/2023 Care Gap Outreach Action Taken: Left message and MyChart message sent documented in this encounter Plan of Treatment Upcoming Encounters Date Type Department Care Team (Late st Contact Info) Description 05/17/2023 1:40 PM EDT Office Visit Pulmonary Medicine, [facility] [address] [facility] [place] [address] Tino Stapleton MD [address] [place] [address] 06/07/2023 11:50 AM EDT Office Visit Family [facility] [address] [place] [address] Edgar Gibbs MD [address] [place] [address] 07/19/2023 11:00 AM EDT Appointment Interventional Radiology [facility], [facility] 1st Floor [address] [place] [address] 10/25/2023 3:15 PM EDT Office Visit Urology, [facility] 132 [facility] [place] [address] Travon Canales MD 27 [facility] [address] [place] [address] 02/26/2024 9:30 AM EST Cardiac Studies Cardiac Studies, [facility] [address] [facility] [place] [address] Health Maintenance Due Date Last Done Comments [...] and were consensually agreed upon. Care Teams Air Hole Driller Relationship Specialty Start Date End Date Edgar Gibbs MD [address] [place] [address] PCP - General Family Medicine 07/03/20 documented as of this encounter
--- OUTSIDE RECORDS SUMMARY | 2023-06-02 11:45 | External Medical Summary ---
Author Name Unknown Address Unknown Organization K01:[facility] - [address] [place] [address] Laboratory Report Ordering Provider Test Date Status ENRRIQUE VILLALBA 04/12/2023 16:50:37 Final Observation Date Value Abnormality Reference (Units ) Status PSA 04/12/2023 16:50:37 0.26 <4.10 (ng/ mL) Final Performing Location [facility] - [address] [place] [address]
--- OUTSIDE RECORDS SUMMARY | 2023-06-02 11:45 | External Medical Summary | Summary of Care ---
Author Name Unknown Organization [facility] Address [address] [facility] [place] [address] Phone [phone] Care Team Providers Care Jacquard Loom Carpet Weaver Name Role Phone Edgar Clements MD Primary Care P rovider Reason for Visit * Reason Comments eRx-Medication Refill Encounter Details Date Type Department Care Team ([facility] Contact Info) Description 04/03/2023 Refill Family Practice [address] [phone] Edgar Clements MD [address] [place] [id number] Allergies Active Allergy Reactions Criticality Noted Date Comments Latex 07/19/2019 Pantoprazole Sodium Edema face/lips/tongue High 04/0 02/2014 documented as of this encounter (statuses as of 04/04/2023) Medications Medication Sig Dispensed Refills Start Date End Date Status Cholecalciferol 2000 units Capsule Take 1 Capsule by mouth in the morning. 30 Cap 3 03/28/2017 Active Calcium Acetate, Phos Binder, 667 MG TABSIndications:Ki dney disease, chronic, stage V (GFR under 15 ml/min) ([facility]) take 2 pills 3 x daily 180 Tab 11 10/26/2018 Active Sodium Chloride Flush (NORMAL SALINE FLUSH) 0.9 % SOLN injection FLUSH ONCE DAILY WITH 10ml 300 mL 1 03/12/2019 Active Leuprolide Acetate (3 Month) 22.5 MG Subcutaneous Kit ([employer]) Inject 22.5 mg under the skin. Every 3 months 0 11/18/2020 Active Incruse Ellipta 62.5 MCG/ACT Inhalation Aerosol Powder Breath Activated (umeclidinium [place])Indication s:Chronic obstructive pulmonary disease, unspecified COPD type [...] OR WHEEZING 18 g 5 01/20/2023 Active LORazepam 0.5 MG Oral Tablet (Ativan)Indication s:Panic attack as reaction to stress Take 1 Tablet by mouth every 8 hours as needed for Anxiety. 30 Tablet 0 03/15/2023 Active amLODIPine Besylate 5 MG Oral Tablet (Norvasc) TAKE 1 TABLET BY MOUTH ONCE DAILY IN THE MORNING 90 Tablet 2 04/04/2023 Active amLODIPine Besylate 5 MG Oral Tablet (Norvasc) TAKE 1 TABLET BY MOUTH ONCE DAILY IN THE MORNING 90 Tablet 2 02/23/2022 4 Discontinued documented as of this encounter (statuses as of 04/04/2023) Active Problems Problem Noted Date Diagnosed Date [...] as of this encounter (statuses as of 04/04/2023) Resolved Problems Problem Noted Date Diagnosed Date [...] as of this encounter (statuses as of 04/04/2023) Immunizations Name Administration Dates Next Due COVID-19 mRNA, LNP-s, No Pre serve, 2-Dose Series ([employer]) 01/19/2021,06/10/2020,05/20/2020 Pneumococcal Conjugate Vacci ne, 20-valent ([id number]) 03/16/2022 Pneumococcal Polysaccharide PPV23 (Pneumovax) 12/28/2017 Seasonal Influenza Virus Vac cine, Unspecified Formulation 12/22/2020,12/28/2018,12/27/2016,01/11 Seasonal Influenza, PF, 6 M & above, IM , (FluLaval or Fluzone) 12/22/2020,12/28/2018,12/27/2016 Seasonal Influenza, Quadriva lent Hd, 65+ Yrs 11/15/2022 Seasonal Influenza, Quadriva lent, No Preserve, IM 01/12/2016,01/06/2015 Seasonal Influenza, Split, I IV3, With Preserve, Inj 12/28/2018,12/27/2016,01/12/2016 TDAP (age 10 and older)(Boostrix) 12/28/2017 documented as of this encounter Social History Tobacco Use Types Packs/Day Years Used Date Smoking Tobacco: Every Day Cigarettes 0.1 Smokeless Tobacco: Never Alcohol Use Standard Drinks/Week [...] encounter Miscellaneous Notes * Telephone Encounter - David Jean [facility] - 04/04/2023 7:27 AM ESTSigned Prescriptions: Disp Refills amLODIPine Besylate 5 MG Oral Tablet (Norv*90 Tab*2 Sig: TAKE 1TABLET BY MOUTH ONCE DAILY IN THE MORNINGAuthorizing Provider: EDGAR CLEMENTS User: DAVID JEAN documented in this encounter Plan of Treatment Upcoming Encounters Date Type Department Care Team (Late st Contact Info) Description 04/12/2023 3:30 PM EST Procedure Only Urology, [facility] [address] [facility] [place] [address] Travon Canales MD [address] [place] [address] [place] [address] 04/19/2023 11:00 AM EST Appointment Interventional Radiology [facility], [facility] 1st Floor [address] [facility] [place] [address] 05/17/2023 1:00 PM EDT Office Visit Pulmonary Medicine, [facility] 132 [facility] [place] [address] Tino Stapleton MD [address] [facility] [place] [id number] 06/07/2023 11:50 AM EDT Office Visit [facility] 68 [facility] [place] [address] Edgar Clements MD 68 [facility] [place] [address] 02/26/2024 9:30 AM EST Cardiac Studies Cardiac Studies, [facility] [address] [place] [address] Health Maintenance Due Date Last Done Comments Alpha-1 Antitrypsin 05[birth year]18/1963 Hepatitis C Screening 05/18/1963 *COPD SEVERITY VERIFIED BY PFT 03/05/2022 COVID-19 Vaccine ( season) 2022 01/19/2021, 06/10/2020, 05/20/2020 DISCUSS TOBACCO CESSATION (REFER TO SMARTSET #3291) 06/04/2023 06/03/2022 Depression Screening 06/04/2023 06/03/2022 O2 ASSESSMENT COMPLETED IN PAST YEAR FOR COPD 03/09/2024 03/09/2023 DTaP,Tdap,and Td Vaccines (2 - Td or [...] and were consensually agreed upon. Care Teams Jacquard Loom Carpet Weaver Relationship Specialty Start Date End Date [place] [address] PCP - General Family Medicine 07/03/20 documented as of this encounter
--- OUTSIDE RECORDS SUMMARY | 2023-06-02 11:45 | External Medical Summary | Summary of Care ---
Author Name Unknown Organization [facility] Address [address] [facility] [place] [address] Phone [phone] Care Team Providers Care Lacing String Cutter Name Role Phone Edgar Gibbs MD Primary Care P rovider Reason for Visit * Reason Onset Date Comments Information 12/26/2022 Encounter Details Date Type Department Care Team ([facility] st Contact Info) Description 12/26/2022 Telephone Family Practice [address] [phone] Edgar Gibbs MD [address] [place] [address] Information (/) Allergies Active Allergy Reactions Criticality Noted Date Comments Latex 07/19/2019 Pantoprazole Sodium Edema face/lips/tongue High 04/0 02/2014 documented as of this encounter (statuses as of 03/27/2023) Medications Medication Sig Dispensed Refills Start Date End Date Status Cholecalciferol 2000 units Capsule Take 1 Capsule by mouth in the morning. 30 Cap 3 03/28/2017 Active Calcium Acetate, Phos Binder, 667 MG TABSIndications:Kidney disease, chronic, stage V (GFR under 15 ml/min) (HCC) take 2 pills 3 x daily 180 Tab 11 10/26/2018 Active Sodium Chloride Flush (NORMAL SALINE FLUSH) 0.9 % SOLN injection FLUSH ONCE DAILY WITH 10ml 300 mL 1 03/12/2019 Active Leuprolide Acetate (3 Month) 22.5 MG Subcutaneous Kit (Eligard) Inject 22.5 mg under the skin. Every 3 months 0 11/18/2020 Active amLODIPine Besylate 5 MG Oral Tablet (Norvasc) TAKE 1 TABLET BY MOUTH ONCE DAILY IN THE MORNING 90 Tablet 2 02/23/2022 Active Incruse Ellipta 62.5 MCG/ACT Inhalation Aerosol Powder Breath Activated (umeclidinium [place])Indications:Ch ronic obstructive pulmonary disease, unspecified COPD type (HCC) [...] ONCE DAILY 90 Tablet 3 11/22/2022 Active documented as of this encounter (statuses as of 03/27/2023) Active Problems Problem Noted Date Diagnosed Date [...] as of this encounter (statuses as of 03/27/2023) Resolved Problems Problem Noted Date Diagnosed Date [...] as of this encounter (statuses as of 03/27/2023) Immunizations Name Administration Dates Next Due COVID-19 mRNA, LNP-s, No Pre serve, 2-Dose Series ([employer]) 01/19/2021,06/10/2020,05/20/2020 Pneumococcal Conjugate Vacci ne, 20-valent ([id number]) 03/16/2022 Pneumococcal Polysaccharide PPV23 (Pneumovax) 12/28/2017 Seasonal [...] encounter Miscellaneous Notes * Telephone Encounter - Lizbeth Waters MD - 12/26/2022 2:58 PM EDT What radiology procedure is he having? * Telephone Encounter - Hannah Clark OSA - 12/26/2022 7:43 AM EDT Matthew was to see Dr García today for a pneumonia follow up. He's now rescheduled for 12.30. He was to have a Radiology test in [place] on Monday. Eliana is asking if he should still go to thisappointment? Please advise. documented in this encounter Plan of Treatment Upcoming Encounters Date Type Department Care Team (Late st Contact Info) Description 04/12/2023 3:30 PM EST Procedure Only Urology, [facility] 132 [facility] [place] [address] Travon Canales MD [address] [place] [address] [place] [id number] 04/19/2023 11:00 AM EST Appointment Interventional Radiology [facility] 1st Floor [address] [place] [address] 05/17/2023 1:00 PM EDT Office Visit Pulmonary Medicine, [facility] 132 [facility] [place] [address] Tino [facility]apleton [facility] [address] [facility] [address] 06/07/2023 11:50 AM EDT Office Visit [facility] [address] [place] [address] Edgar Gibbs MD [address] [place] [address] 02/26/2024 9:30 AM EST Cardiac Studies Cardiac Studies, [address] [place] [address] Health Maintenance Due Date Last Done Comments [...] and were consensually agreed upon. Care Teams Lacing String Cutter Relationship Specialty Start Date End Date Edgar Gibbs MD [address] [place], [place] [address], [place] [address] PCP - General Family Medicine 07/03/20 documented as of this encounter
--- OUTSIDE RECORDS SUMMARY | 2023-06-02 11:45 | External Medical Summary | Summary of Care ---
Author Name Unknown Organization [facility] Address [address] [facility] [place] [address] Phone [phone] Care Team Providers Care Food Cashier Name Role Phone Edgar Gibbs MD Primary Care P rovider Encounter Details Date Type Department Care Team (Late st Contact Info) Description 04/04/2023 Result Scan Unspecified Department <No scans attached> Allergies Active Allergy Reactions Criticality Noted Date Comments Latex 07/19/2019 Pantoprazole Sodium Edema face/lips/tongue High 04/0 02/2014 documented as of this encounter (statuses as of 04/10/2023) Medications Medication Sig Dispensed Refills Start Date End Date Status Cholecalciferol 2000 units Capsule Take 1 Capsule by mouth in the morning. 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) ([facility]) take 2 pills 3 x daily 180 Tab 11 10/26/2018 Active Sodium Chloride Flush (NORMAL SALINE FLUSH) 0.9 % SOLN injection FLUSH ONCE DAILY WITH 10ml 300 mL 1 03/12/2019 Active Leuprolide Acetate (3 Month) 22.5 MG Subcutaneous Kit (ALICE Appd) Inject 22.5 mg under the skin. Every 3 months 0 11/18/2020 Active Incruse Ellipta 62.5 MCG/ACT Inhalation Aerosol Powder Breath Activated (umeclidinium [place])Indications:C hronic obstructive pulmonary disease, unspecified COPD type ([facility]) Inhale 1 Puff by mouth in the [...] HFA 108 (90 Base) MCG/ACT Inhalation Aerosol SolutionIndications:C OPD exacerbation (HCC) INHALE TWO PUFFS BY MOUTH EVERY 4 HOURS NEEDED FOR COUGH, SHORTNESS OF BREATH, OR WHEEZING 18 g 5 01/20/2023 Active LORazepam 0.5 MG Oral Tablet (Ativan)Indications:P anic attack as reaction to stress Take 1 Tablet by mouth every 8 hours as needed for Anxiety. 30 Tablet 0 03/15/2023 Active amLODIPine Besylate 5 MG Oral Tablet (Norvasc) TAKE 1 TABLET BY MOUTH ONCE DAILY IN THE MORNING 90 Tablet 2 04/04/2023 Active documented as of this encounter (statuses as of 04/10/2023) Active Problems Problem Noted Date Diagnosed Date [...] as of this encounter (statuses as of 04/10/2023) Resolved Problems Problem Noted Date Diagnosed Date [...] as of this encounter (statuses as of 04/10/2023) Immunizations Name Administration Dates Next Due COVID-19 mRNA, LNP-s, No Pre serve, 2-Dose Series ([facility]) 01/19/2021,06/10/2020,05/20/2020 Pneumococcal Conjugate Vacci ne, 20-valent ([id number]) 03/16/2022 Pneumococcal Polysaccharide PPV23 (Pneumovax) 12/28/2017 Seasonal [...] Team (Late st Contact Info) Description 04/12/2023 2:20 PM EST Office Visit Pulmonary Medicine, [facility] [address] [facility] [place] [address] Tino Stapleton MD [address] [place] [address] 04/12/2023 3:30 PM EST Procedure Only Urology, [facility] [address] [facility] [place] [address] Travon Canales MD [address] [place] [address] [place] [phone] 04/19/2023 11:00 AM EST Appointment Interventional Radiology [facility] [place] 1st Floor [address] [place] [address] 06/07/2023 11:50 AM EDT Office Visit [facility] [address] [place] [address] Edgar Gibbs MD [address] [place] [address] 02/26/2024 9:30 AM EST Cardiac Studies Cardiac Studies, [facility] [address] [facility] [place] [address] Health Maintenance Due Date Last Done Comments [...] Date/Time Associated Diagnosis Comments OUTSIDE LAB RESULTS 04/04/2023 documented in this encounter Results * OUTSIDE LAB RESULTS (04/04/2023) 04/04/2023 No Physician Data Unknown LABORATORY documented in this encounter Advance Directives Latest Code Status on File Code Status Date Activated Date Inactivated Comments Full Code 04/15/2015 4:40 PM 04/16/2015 5:24 PM This order reflects the patients wishes and were consensually agreed upon. Care Teams Food Cashier Relationship Specialty Start Date End Date Edgar Gibbs MD [address] [place] [phone] PCP - General Family Medicine 07/03/20 documented as of this encounter
--- OUTSIDE RECORDS SUMMARY | 2023-06-02 11:45 | External Medical Summary | Summary of Care ---
Author Name Unknown Organization [facility] Address [address] [facility] [place] [address] Phone [phone] Care Team Providers Care Inserter Name Role Phone Edgar Gibbs MD Primary Care P [facility] Reason for Visit * Reason Comments NEW PATIENT * Evaluate & Treat - Unlimited Visits (Within 10 days (routine)) - Authorized Specialty Diagnoses / Procedures Referred By Contac t Referred To Contact Pulmonary Diseases / Pulmonary Diagnoses Pleural effusion, right Loss of weight Chronic cough Prostate cancer (HCC) Edgar Gibbs MD [address] [place] [address] Referral ID Status Reason Start Date Expiration Date Visits Requested Visits Authorized [id number] Authorized Specialty Services Required [phone] Encounter Details Date Type Department Care Team (Latest Contact Info) Description 04/12/2023 2:20 PM EST Office Visit Pulmonary Medicine, [address] [place] [address] Tino Stapleton MD [address] [place] [phone] Chronic cough [R05.3]*; Loss of weight [R63.4]; Pleural effusion, right [J90]; Prostate cancer (HCC) [C61]; COPD, group C, by GOLD 2017 classification ([facility]) Allergies Active Allergy Reactions Criticality Noted Date [...] Acetate (3 Month) 22.5 MG Subcutaneous Kit (Sobrr) Inject 22.5 mg under the skin. Every 3 months 0 11/18/2020 Active Incruse Ellipta 62.5 MCG/ACT Inhalation Aerosol Powder Breath Activated (umeclidinium [place])Indications: Chronic obstructive pulmonary disease, unspecified COPD type ([facility]) Inhale 1 Puff by mouth in the [...] Base) MCG/ACT Inhalation Aerosol SolutionIndications: COPD exacerbation ([facility]) INHALE TWO PUFFS BY MOUTH EVERY 4 [...] PPD 05/03/2018 Pneumococcal Conjugate Vacci ne, 20-valent ([id number]) 03/16/2022 Pneumococcal Polysaccharide PPV23 (Pneumovax) 12/28/2017 Seasonal [...] Sign Reading Time Taken Comments Blood Pressure 142/88 04/12/2023 2:19 PM EST Pulse - - Temperature 36.3 C (97.4 F) 04/12/2023 2:19 PM ES T Respiratory Rate 18 04/12/2023 2:19 PM EST Oxygen Saturation 84% 04/12/2023 2:21 PM EST ra, amb Inhaled Oxygen Concentration - - Weight 61.2 kg (135 lb) 04/12/2023 2:19 PM EST Height 160 cm (5' 3") 04/12/2023 2:19 PM EST Body Mass Index 23.91 04/12/2023 2:19 PM EST documented in this encounter Functional Status Functional [...] Progress Notes * Tino Stapleton MD - 04/12/2023 2:17 PM EST 04/12/2023 Pulmonary Medicine, 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 Current bronchodilator regimen includes rare use of [...] risk. We agree with periodic drainage via PleurX catheter and follow-up. PleurX catheter placement for continued periodic drainage via home care nursing was discussed with patient. Patient is agreeable to proceed. Questions were answered. New consult for IR PleurX catheter placement was requested at [facility] as patient's preferred location. 2 L nasal cannula oxygen set up with activity being initiated. Nocturnal oximetry on room air will be done to assess need for nocturnal oxygen therapy. Patient be followed up in 4 weeks to reassess symptoms status post placement of PleurX catheter. 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 [place] thoracentesis by IR Lymphocytic exudative pleural fluid profile with negative cytopathology for malignancy. Current BD Rx: Ventolin MDI Follow-up: Return in about 4 weeks (around 05/10/2023). 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 G thoracentesis by IR Lymphocytic exudative pleural fluid profile with negative cytopathology for malignancy. Current BD Rx: Ventolin MDI Plan: IR Pleurx Catheter placement O2 2 L with activity setup NPOX on RA F/u 1 month Tino Stapleton MD Subjective CC: Chief Complaint Patient presents with NEW PATIENT HPI: Nursing Notes: Kelsea Alexis, CREW CHIEF 04/12/23 1427 Addendum New pt referred for evaluation of pleural effusion, weight loss, end stage renal disease. MMRC Dyspnea Scale = 4 (I am too breathless to leave the house or I am breathless when dressing) Interm History/Respiratory Symptoms Cough: no Hemoptysis: no Sinus Symptoms: no Hospitalizations: no ED Trips: no Triggers: exertion, dust, anxiety Nocturnal: no problems CPAP/BiPAP/O2: no Flu Vaccine: 2022 Pneumovax: 2018 Prevnar: 2023 COVID 19: x 3 Objective Filed Vitals: 04/12/23 1419 04/12/23 1421 BP: 142/88 Resp: 18 Temp: 36.3 C (97.4 F) TempSrc: Tympanic SpO2: 96% 84% Weight: 61.2 kg (135 lb) Height: 1.6 m (5' 3") Exam: Const: No signs of acute distress present. Head/Face: Normal on inspection. Eyes: Conjunctivae clear. Pupils equal round and reactive to light. ENMT: Oropharynx: No erythema, exudate or masses. Posterior pharynx is normal. Neck: Supple and symmetric. Resp: Respiratory examination as outlined above CV: Rate is regular. Rhythm is regular. No heart murmur appreciated. Extremities: No edema of the lower limbs bilaterally. Abdomen: Positive bowel sounds. Palpation of the abdomen reveals softness, but no distension or tenderness. No palpable hepatosplenomegaly. Musculo: Walks with a normal gait. Skin: Skin is warm and dry. Neuro: Coordination normal. No involuntary movement. Psych: Patient's attitude is cooperative. Mood is normal. Affect is normal. Tests reviewed with the patient: IR CHEST THORACENTESIS Result Date: 03/09/2023 IMPRESSION: [...] 28. CT may be of benefit THIS DOCUMENTHAS BEEN ELECTRONICALLY SIGNED BY HAZEL CHESTER MD XR CHEST 2 VIEWS Result Date: 12/16/2022 IMPRESSION Opacity in the right mid to lower lung with pleural fluid. Recommend follow-up to resolution. Available Radiologic data was reviewed by me in PACS. The images were shown to the patient and findings were discussed with the patient. HOME MEDICATIONS: amLODIPine Besylate 5 MG Oral Tablet (Norvasc) LORazepam 0.5 MG Oral Tablet (Ativan) Atenolol 50 MG Oral Tablet (Tenormin) Nephro-Farzana 0.8 MG Oral Tablet Citalopram Hydrobromide 10 MG Oral Tablet (CeleXA) Incruse Ellipta 62.5 MCG/ACT Inhalation Aerosol Powder Breath Activated (umeclidinium [place]) Leuprolide Acetate (3 Month) 22.5 MG Subcutaneous Kit (Eligard) Sodium Chloride Flush (NORMAL SALINE FLUSH) 0.9 % SOLN injection Calcium Acetate, Phos Binder, 667 MG TABS Cholecalciferol 2000 units Capsule Ventolin HFA 108 (90 Base) MCG/ACT Inhalation Aerosol Solution ROS: No reported history of Hemoptysis, Hematemesis, Melena No reported history of Dysuria, Hematuria, Flank Pain No reported history of chronic headache, seizures No reported history of Fall or trauma . No reported history of recent change in weight or appetite. Past Medical History: Diagnosis Date Hypertension, essential INFORMATION 03/2014 [facility]- kidney failure Pleural effusion Use of leuprolide acetate (Lupron) Past Surgical History: Procedure Laterality Date CYSTOSCOPY 07-08-2014 IR DRAINAGE CATHETER CHANGE Right 06/10/2015 CHANGE OF PERCUTANEOUS TUBE OR DRAINAGE CATHETER WITH XRAY AND CONTRAST MEDIUM performed by Gera Mcdaniel MD at [place] [facility] [place] DRAINAGE CATHETER CHANGE Right 08/24/2016 CHANGE OF PERCUTANEOUS TUBE OR DRAINAGE CATHETER WITH XRAY AND CONTRAST MEDIUM performed by Gera Mcdaniel MD at [facility] [facility] [place] IR GENITORINARY NEPHRO/CYSTO/URETERAL 01/18/2019 IR GENITORINARY NEPHRO/CYSTO/URETERAL [...] industry Tobacco Use Smoking status: Every Day Packs/day: 0.25 Years: 60.00 Additional pack years: 0.00 Total pack years: 15.00 Types: Cigarettes Smokeless tobacco: Never Vaping Use [...] documented in this encounter Nursing Notes * Julio Cesar Gaines RRT - 04/12/2023 3:14 PM EST Matthew Rowe was identified by name, Date of : (1945), and . Vitals were obtained for testing. Body mass index is 23.91 kg/m. Exercise oximetry performed on room air x 6 minutes. Pt ambulated 540 feet/ 165 meters. 2 rest periods were required for 40 seconds.. Lowest SPO2on room air was 87%. Pt placed on 2 liters. Exercise oximetry performed on 2 liters x 3 minutes. Ptambulated 360 feet/ 110 meters. 1 rest periods were required for 19 seconds. Lowest SPO2 on 2 liters was 92%. * Kelsea Alexis LPN - 04/12/2023 2:12 PM EST New pt referred for evaluation of pleural effusion, weight loss, end stage renal disease. MMRC Dyspnea Scale = 4 (I am too breathless to leave the house or I am breathless when dressing) Interm History/Respiratory Symptoms Cough: no Hemoptysis: no Sinus Symptoms: no Hospitalizations: no ED Trips: no Triggers: exertion, dust, anxiety Nocturnal: no problems CPAP/BiPAP/O2: no Flu Vaccine: 2022 Pneumovax: 2018 Prevnar: 2022 COVID 19: x 3 documented in this encounter Plan of Treatment Upcoming Encounters Date Type Department Care Team (Late st Contact Info) Description 04/17/2023 1:30 PM EST Nurse Only Urology, [address] [place] [address] [facility] [address] [place] [address] 04/19/2023 11:00 AM EST Appointment Interventional Radiology [facility] [place] [facility] 1st Floor [address] [place] [phone] 06/07/2023 11:50 AM EDT Office Visit [facility] [address] [place] [phone] Edgar Gibbs MD [address] [place] [address] 10/25/2023 3:15 PM EDT Office Visit Urology, [facility] [address] [place] [address] Travon Canales MD [address] [place] [address] [place] [address] 02/26/2024 9:30 AM EST Cardiac Studies Cardiac Studies, [facility] [address] [facility] [place] [address] Scheduled Orders Name Type Priority Associated Diagnoses Orde r Schedule IR CHEST PLEUR X CATHETER Medical Imaging Routine Chronic cough [R05.3] Loss of weight [R63.4] Pleural effusion, right [J90] Ordered: 04/12/2023 NOCTURNAL HOME OXIMETRY (OP) Procedures Routine Pleural effusion, right [J90] COPD, group C, by GOLD 2017 classification (HCC) Ordered: 04/12/2023 Health Maintenance Due Date Last Done Comments Alpha-1 Antitrypsin 05/18/1963 Hepatitis C Screening 05/18/1963 *COPD SEVERITY VERIFIED BY PFT 03/05/2022 COVID-19 Vaccine () 10/28/2022 01/19/2021, 06/10/2020, 05/20/2020 DISCUSS TOBACCO CESSATION (REFER [...] of this encounter Visit Diagnoses Diagnosis Chronic cough [R05.3]- Primary Cough Loss of weight [R63.4] Loss of weight Pleural effusion, right [J90] Unspecified pleural effusion Prostate cancer (HCC) [C61] Malignant neoplasm of prostate COPD, group C, by GOLD 2017 classification (HCC) documented in this encounter Advance Directives Latest Code Status on File Code Status Date Activated Date Inactivated Comments Full Code 04/15/2015 4:40 PM 04/16/2015 5:24 PM This order reflects the patients wishes and were consensually agreed upon. Care Teams Inserter Relationship Specialty Start Date End Date Edgar Gibbs MD [address] [place] [phone] PCP - General Family Medicine 07/03/20 documented as of this encounter
--- OUTSIDE RECORDS SUMMARY | 2023-06-02 11:45 | External Medical Summary | Summary of Care ---
Author Name Unknown Organization [facility] Address [address] [facility] [place] [address] Phone [phone] Care Team Providers Care Lance Crewmember/Mlrs Sergeant Name Role Phone Edgar Gibbs MD Primary Care P rovider Encounter Details Date Type Department Care Team (Late st Contact Info) Description 03/21/2023 Result Scan Unspecified Department <No scans attached> [...] chronic, stage V (GFR under 15 ml/min) ([facility]) take 2 pills 3 x daily 180 [...] MCG/ACT Inhalation Aerosol Powder Breath Activated (umeclidinium [place])Indications:C hronic obstructive pulmonary disease, unspecified COPD type (HCC) [...] for Anxiety. 30 Tablet 0 03/15/2023 Active documented as of this encounter (statuses [...] mRNA, LNP-s, No Pre serve, 2-Dose Series ([employer] [facility]) 01/19/2021,06/10/2020,05/20/2020 Pneumococcal Conjugate Vacci ne, 20-valent ([id number]) 03/16/2022 Pneumococcal Polysaccharide PPV23 (Pneumovax) 12/28/2017 Seasonal [...] 04/12/2023 3:30 PM EST Procedure Only Urology, [facility] [address] [facility] [place] [address] Travon Canales MD [address] [place] [address] 04/19/2023 11:00 AM EST Appointment [place] [facility] [place] 1st Floor [address] [place] [address] 05/17/2023 1:00 PM EDT Office Visit Pulmonary Medicine, [facility] [address] [facility] [place] [address] Tino Stapleton MD [address] [place] [address] 06/07/2023 11:50 AM EDT Office Visit [facility] [address] [place] [phone] Edgar Gibbs MD [address] [place] [address] 02/26/2024 9:30 AM EST Cardiac Studies Cardiac Studies, [facility] [address] [facility] [place] [address] Health Maintenance Due Date Last Done Comments Alpha-1 Antitrypsin 05/18/1963 Hepatitis C Screening 05/18/1963 *COPD SEVERITY VERIFIED BY PFT 03/05/2022 COVID-19 Vaccine ( season) 2022 01/19/2021, 06/10/2020, 05/20/2020 DISCUSS TOBACCO CESSATION (REFER TO [employer]ARTSET #[id number]) 06/04/2023 06/03/2022 Depression Screening 06/04/2023 06/03/2022 O2 [...] Date/Time Associated Diagnosis Comments OUTSIDE LAB RESULTS 03/21/2023 documented in this encounter Results * OUTSIDE LAB RESULTS (03/21/2023) 03/21/2023 No Physician Data Unknown LABORATORY documented in this encounter Advance Directives Latest Code Status on File Code Status Date Activated Date Inactivated Comments Full Code 04/15/2015 4:40 PM 04/16/2015 5:24 PM This order reflects the patients wishes and were consensually agreed upon. Care Teams Lance Crewmember/Mlrs Sergeant Relationship Specialty Start Date End Date Edgar Gibbs MD [address] [place] [phone] PCP - General Family Medicine 07/03/20 documented as of this encounter
--- OUTSIDE RECORDS SUMMARY | 2023-06-02 11:45 | External Medical Summary | Summary of Care ---
Author Name Unknown Organization [facility] Address [address] [facility] [place] [address] Phone [phone] Care Team Providers Care [facility] Hand Name Role Phone Edgar Clements MD Primary Care P rovider Reason for Visit * Reason Comments Cystoscopy Encounter Details Date Type Department Care Team (Latest Contact Info) Description 04/12/2023 3:30 PM EST Procedure Only Urology, [facility] [address] [facility] [place] [address] Travon Canales MD [address] [facility] [address] [place] [address] Prostate cancer (FORMERLY [facility])*; Bladder stones Allergies Active Allergy Reactions Criticality Noted Date [...] 15 ml/min) ([facility]) take 2 pills 3 x daily 180 Tab 11 10/26/2018 Active Sodium Chloride Flush (NORMAL SALINE FLUSH) 0.9 % SOLN injection FLUSH ONCE DAILY WITH 10ml 300 mL 1 03/12/2019 Active Leuprolide Acetate (3 Month) 22.5 MG Subcutaneous Kit (Eligard) Inject 22.5 mg under the skin. Every 3 months 0 11/18/2020 Active Incruse Ellipta 62.5 MCG/ACT Inhalation Aerosol Powder Breath Activated (umeclidinium [place])Indications: Chronic obstructive pulmonary disease, unspecified COPD type [...] PPD 05/03/2018 Pneumococcal Conjugate Vacci ne, 20-valent ([id number]) 03/16/2022 Pneumococcal Polysaccharide PPV23 (Pneumovax) 12/28/2017 Seasonal [...] as of this encounter Progress Notes * Travon Canales MD - 04/12/2023 4:19 PM EST [id number] PCP: EDGAR CLEMENTS [address] [place] [address] [phone] Matthew Rowe is a 77 year old male, who presents for f/u of his CAP. He is due for PCN change next week. He notes no gross hematuria. He is getting dialysis TIW since 2018. Patient is here today with family. He is resistant to consideration of cystoscopy today, feels he is less bothered with his bladder stones. Prostate cancer: Diagnosed with June 2014 [place] 5+5 Nephro ureteral stent right in place from malignant obstruction since 2016. Previous right-sided stent capped, drains when he needs to void. Bladder stones present. Creatinine Results: Lab Results Component Value Date/Time [...] CREATININE-OUTSIDE LAB 8.31 (A) 12/08/2017 12:00 AM PSA Results: Lab Results Component Value Date/Time PSA - [facility] 0.30 02/11/2020 12:23 PM PSA - [facility] 0.26 06/10/2019 10:17 AM PSA - [facility] 0.25 01/09/2019 10:53 AM Current Outpatient Medications Medication Sig Dispense Refill Cholecalciferol 2000 units Capsule Take 1 Capsule by mouth in the morning. 30 Cap 3 Calcium Acetate, Phos Binder, 667 MG TABS take 2 pills 3 x daily 180 Tab 11 Sodium Chloride Flush (NORMAL SALINE FLUSH) 0.9 % SOLN injection FLUSH ONCE DAILY WITH 10ml 300 mL 1 Leuprolide Acetate (3 Month) 22.5 MG Subcutaneous Kit (51 Auto) Inject 22.5 mg under the skin. Every 3 months Incruse Ellipta 62.5 MCG/ACT Inhalation Aerosol Powder Breath Activated (umeclidinium [place]) Inhale 1 Puff by mouth in the morning. 30 Each 11 Citalopram Hydrobromide 10 MG Oral Tablet (CeleXA) TAKE 1 TABLET BY MOUTH ONCE DAILY AT BEDTIME 30Tablet 5 Atenolol 50 MG Oral Tablet (Tenormin) TAKE 1 TABLET BY MOUTH ONCE DAILY AT BEDTIME 90 Tablet 1 Nephro-Farzana 0.8 MG Oral Tablet TAKE ONE TABLET BY MOUTH ONCE DAILY 90 Tablet 3 Ventolin HFA 108 (90 Base) MCG/ACT Inhalation Aerosol Solution INHALE TWO PUFFS BY MOUTH EVERY 4 HOURS NEEDED FOR COUGH, SHORTNESS OF BREATH, OR WHEEZING (Patient not taking: Reported on 04/12/2023) 18 g 5 LORazepam 0.5 MG Oral Tablet (Ativan) Take 1 Tablet by mouth every 8 hours as needed for Anxiety. 30 Tablet 0 amLODIPine Besylate 5 MG Oral Tablet (Norvasc) TAKE 1 TABLET BY MOUTH ONCE DAILY IN THE MORNING 90 Tablet 2 No current facility-administered medications for this visit. Review of patient's allergies indicates: Allergen Reactions Pantoprazole Sodium Edema face/lips/tongue Latex Social History: Social History Tobacco Use Smoking status: Every Day Packs/day: 0.25 Years: 60.00 Additional pack years: 0.00 Total pack years: 15.00 Types: Cigarettes Smokeless tobacco: Never Substance Use Topics Alcohol use: No Vaping/E-Cigarette Use Vaping/E-Cigarette Use Never User Vaping/E-Cigarette Substances Vaping/E-Cigarette Devices Past Surgical History: Procedure Laterality Date CYSTOSCOPY 07-08-2014 IR DRAINAGE CATHETER CHANGE Right 06/10/2015 CHANGE OF PERCUTANEOUS TUBE OR DRAINAGE CATHETER WITH XRAY AND CONTRAST MEDIUM performed by Gera Mcdaniel MD at [facility] IR DRAINAGE CATHETER CHANGE Right 08/24/2016 CHANGE OF PERCUTANEOUS TUBE OR DRAINAGE CATHETER WITH XRAY AND CONTRAST MEDIUM performed by Gera Mcdaniel MD at RADIOLOGY [facility] IR GENITORINARY NEPHRO/CYSTO/URETERAL 01/18/2019 IR GENITORINARY NEPHRO/CYSTO/URETERAL 04/01/2019 IR GENITORINARY NEPHRO/CYSTO/URETERAL 08/02/2019 IR GENITORINARY NEPHRO/CYSTO/URETERAL 12/13/2019 IR GENITORINARY NEPHRO/CYSTO/URETERAL 04/29/2020 IR GENITORINARY NEPHRO/CYSTO/URETERAL 08/19/2020 IR GENITORINARY NEPHRO/CYSTO/URETERAL 12/23/2020 IR GENITORINARY NEPHRO/CYSTO/URETERAL 04/14/2021 IR GENITORINARY NEPHRO/CYSTO/URETERAL 08/04/2021 IR GENITORINARY NEPHRO/CYSTO/URETERAL 12/10/2021 IR GENITORINARY NEPHRO/CYSTO/URETERAL 04/06/2022 IR GENITORINARY NEPHRO/CYSTO/URETERAL 08/15/2022 IR GENITORINARY NEPHRO/CYSTO/URETERAL 01/04/2023 NONE Past Medical History: Diagnosis Date Hypertension, essential INFORMATION 03/2014 [facility]- kidney failure Pleural effusion Use of leuprolide acetate (Lupron) Patient Active Problem List Diagnosis Code Chronic anemia D64.9 HTN, goal below 140/90 I10 Kidney disease, chronic, stage V (GFR under 15 ml/min) (HCC) N18.5 Prostate cancer (HCC) C61 Hydronephrosis, right N13.30 Dialysis patient ([facility]) Z99.2 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 ([facility]) I12.0, N18.6, Z99.2 DNR (do not resuscitate) Z66 ESRD (end stage renal disease) on dialysis ([facility]) N18.6, Z99.2 Tobacco user Z72.0 Bladder stones N21.0 Pleural effusion, right J90 COPD, group C, by GOLD 2017 classification ([facility]) J44.9 Constitutional: (-) fever and (-) chills Eyes: (+) corrective lenses ENT: (-) stridor Pulmonary: (+) dyspnea Male : see HPI Neurology: (-) negative: no focal neurologic defect Psychiatry: (-) negative: no depression or anxiety Physical Exam Nursing note reviewed. Constitutional: General: He is not in acute distress. Appearance: Normal appearance. He is not ill-appearing or toxic-appearing. HENT: Head: Normocephalic and atraumatic. Right Ear: External ear normal. Left Ear: External ear normal. Nose: Nose normal. Mouth/Throat: Mouth: Mucous membranes are moist. Cardiovascular: Pulses: Normal pulses. Pulmonary: Effort: Pulmonary effort is normal. Abdominal: Palpations: Abdomen is soft. Tenderness: There is no abdominal tenderness. Musculoskeletal: Cervical back: Normal range of motion and neck supple. Lymphadenopathy: Cervical: No cervical adenopathy. Skin: Coloration: Skin is not cyanotic or pale. Neurological: Mental Status: He is alert and oriented to person, place, and time. Psychiatric: Attention and Perception: Attention normal. Mood and Affect: Mood and affect normal. Impression/Plan: 77-year-old male with prostate cancer on androgen deprivation, end-stage renal disease, indwelling nephro ureteral stent on the right. Stent exchange as scheduled. Patient does not have insurance approval for Lupron yet, will obtain for six-month value. Will have a PSA done today. As reviewed with patient, I do not believe that addressing his bladder stones will significantly change his voiding pattern, need for nephrostomy tube are end- stage renal disease. In this context, he wishes to leave his care as is. Will see the patientback in 6 months with a repeat PSA for his next Lupron injection barring other changes in his urologic health. Above content is personally reviewed. Patient vocalizes good understanding of the treatment plan. Travon Canales MD 4:20 PM 04/12/2023 documented in this encounter Nursing Notes * Emily Grider LPN - 04/12/2023 3:54 PM EST CYSTOSCOPY / anatomy / bladder stone Patient's skin was prepped with hibiclens, and 2% lidocaine jelly was inserted into urethra for cystoscopy. Patient tolerated well. C/o- Patient inquiring about next lupron Nephrostomy tube in right kidney documented in this encounter Plan of Treatment Upcoming Encounters Date Type Department Care Team (Late st Contact Info) Description 04/17/2023 1:30 PM EST Nurse Only Urology, [facility] [address] Nurse [facility] U[facility] [address] [facility] [place] [phone] 04/19/2023 11:00 AM EST Appointment Interventional Radiology [facility], [facility] 1st Floor [address] [place] [address] 06/07/2023 11:50 AM EDT Office Visit [address] [phone] Edgar Clements MD [address] [place] [phone] 10/25/2023 3:15 PM EDT Office Visit Urology, [facility] [address] [facility] [place] [address] Travon Canales MD [address] [place] [address] [place] [phone] 02/26/2024 9:30 AM EST Cardiac Studies Cardiac Studies, [facility] [address] [facility] [place] [address] Pending Results Name Type Priority Associated Diagnoses Date /Time PSA Lab Routine Prostate cancer (HCC) 04/12/2023 4:50 PM EST Scheduled Orders Name Type Priority Associated Diagnoses Orde r Schedule PSA Lab Routine Prostate cancer (HCC) Expected: 04/12/2023, Expires: 04/12/2024 PSA Lab Routine Prostate cancer (HCC) Bladder stones 6 Occurrences starting 04/12/2023 until 04/12/2024 Health Maintenance Due Date Last Done Comments [...] cancer (HCC)- Primary Malignant neoplasm of prostate Bladder stones Other calculus in bladder documented in this encounter Advance Directives Latest Code Status on File Code Status Date Activated Date Inactivated Comments Full Code 04/15/2015 4:40 PM 04/16/2015 5:24 PM This order reflects the patients wishes and were consensually agreed upon. Care Teams [facility] Hand Relationship Specialty Start Date End Date Edgar Clements MD [address] [place] [id number] PCP - General Family Medicine 07/03/20 documented as of this encounter
[2023-06-02] MEDS ORDERED: SODIUM CHLORIDE 0.9% 1,000 ML IV PRN (11:46)
--- OUTSIDE RECORDS SUMMARY | 2023-06-02 11:46 | External Medical Summary | Summary of Care ---
Author Name Unknown Organization [facility] Address [address] [facility] [place] [address] Phone [phone] Care Team Providers Care Buff Wheel Fabricator Name Role Phone Edgar Gibbs MD Primary Care P rovider Reason for Visit * Reason Onset Date Comments Hospital Follow-Up Hospital Follow-Up 02/10/2023 Encounter Details Date Type Department Care Team (Latest Contact Info) Description 02/10/2023 11:30 AM EST Office Visit [address] [address] Edgar Gibbs MD [address] [place] [id number] Panic attack as reaction to stress*; History of pleural effusion; COPD, group C, by GOLD 2017 classification ([facility]); 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 ([facility]); Kidney disease, chronic, stage V (GFR under 15 ml/min) ([facility]); Prostate cancer ([facility]) Allergies Active Allergy Reactions Criticality Noted Date Comments Latex 07/19/2019 Pantoprazole Sodium Edema face/lips/tongue High 04/0 02/2014 documented as of this encounter (statuses as of 02/10/2023) Medications Medication Sig Dispensed Refills Start Date End Date Status Cholecalciferol 2000 units Capsule Take 1 Capsule by mouth in the morning. 30 Cap 3 03/28/2017 Active Calcium Acetate, Phos Binder, 667 MG TABSIndications:Ki dney disease, chronic, stage V (GFR under 15 ml/min) ([facility]) take 2 pills 3 x [...] MCG/ACT Inhalation Aerosol Powder Breath Activated (umeclidinium [place])Indication s:Chronic obstructive pulmonary disease, unspecified COPD type ([facility]) Inhale 1 Puff by mouth [...] as needed for Anxiety. 30 Tablet 0 02/10/2023 Active predniSONE 20 MG Oral Tablet (Deltasone)Indicat ions:Chronic obstructive pulmonary disease with acute exacerbation (HCC) Take 2 Tablets by mouth daily for 2 days, THEN 1 Tablet daily for 4 days, THEN 0.5 Tablets daily for 4 days. 10 Tablet 0 12/05/2022 02/10/2023 Discontinue d(Patient preference/ discontinua tion) Furosemide 20 MG Oral Tablet (Lasix)Indications :Pleural effusion Take 0.5 Tablets by mouth in the morning for 3 days. 2 Tablet 0 12/20/2022 02/10/2023 Discontinue d(Patient preference/ discontinua tion) Azithromycin 250 MG Oral Tablet (Zithromax Z-Gene)Indications: Pleural effusion, right,Loss of weight,Chronic cough Take two tablets by mouth on first day, then 1 tablet daily until gone 6 Tablet 0 01/26/2023 02/10/2023 Discontinue d(Medicatio n List Clean Up) Cefdinir 300 MG Oral Capsule (Omnicef)Indicatio ns:Pleural effusion, right,ESRD (end stage renal disease) on dialysis ([facility]) Take 1 Capsule by mouth every other day for 5 doses. For 10 days. 5 Capsule 0 01/26/2023 02/10/2023 Discontinue d(Patient preference/ discontinua tion) documented as of this encounter (statuses as of 02/10/2023) Active Problems Problem Noted Date Diagnosed Date [...] as of this encounter (statuses as of 02/10/2023) Resolved Problems Problem Noted Date Diagnosed Date [...] as of this encounter (statuses as of 02/10/2023) Immunizations Name Administration Dates Next Due COVID-19 mRNA, LNP-s, No Pre serve, 2-Dose Series ([employer]) 01/19/2021,06/10/2020,05/20/2020 Pneumococcal Conjugate Vacci ne, 20-valent (Mprrhjp29) 03/16/2022 Pneumococcal Polysaccharide PPV23 (Pneumovax) 12/28/2017 Seasonal Influenza Virus Vac cine, Unspecified Formulation 12/22/2020,12/28/2018,12/27/2016,01/11 Seasonal Influenza, PF, 6 M & above, IM , (FluLaval or Fluzone) 12/22/2020,12/28/2018,12/27/2016 Seasonal Influenza, Quadriva lent, No Preserve, IM [...] Sign Reading Time Taken Comments Blood Pressure 182/90 02/10/2023 11:59 AM EST Pulse 61 02/10/2023 11:59 AM EST Temperature 36.6 C (97.9 F) 02/10/2023 11:[address] Respiratory Rate 20 02/10/2023 11:59 AM EST Oxygen Saturation 92% 02/10/2023 11:59 AM EST Inhaled Oxygen Concentration - - Weight 63.6 kg (140 lb 4.8 oz) 02/10/2023 11:59 AM EST Height - - Body Mass Index 24.85 12/20/2022 4:00 PM EDT documented in this encounter Functional [...] as of this encounter Progress Notes * Edgar Gibbs MD - 02/10/2023 12:08 PM EST SUBJECTIVE: Matthew Rowe is a 77 year old male. Chief Complaint Patient presents with Hospital Follow-Up Hospital Follow-Up Patient comes to the office for follow-up after undergoing right thoracentesis due to right-sided pleural effusion. Has been treated for pneumonia in November 2022. He feels better after having 1.5 L of pleural fluid removed from his right lung. Has been able to sleep better and breathe easier. Awaiting pulmonary evaluation scheduled in April. Fluid studies were reviewed. None of the light's criteria are met. This suggests a transudative effusion. Atypical cells were noted, mesothelial cells on cytology. Culture showed 1 colony of staph coagulase negative which is likely contamination. He does report he has been exposed to a lot of fiberglass and paint fumes over the years but does not recall being exposed to asbestos in the past. He does complain of getting panic attacks and getting short of breath when exposed to cold. Sometimes he wakes up in the middle of the night with similar types of attacks. He feels like suffocating. He has to sit down for about 30 minutes to be able to feel better. This type of symptoms have happened in the past and he request something to treat them. He currently takes citalopram 10 mg at night.He denies any side effects from citalopram use. Takes daily at bedtime.No signs of infection noted on pleural fluid. Like growth normal elle on pleural fluid culture. Jennifer Flushot at pharmacy. Patient Active Problem List Diagnosis Code Chronic anemia D64.9 HTN, goal below 140/90 I10 Kidney disease, chronic, stage V (GFR under 15 ml/min) ([facility]) N18.5 Prostate cancer ([facility]) C61 Hydronephrosis, right N13.30 Dialysis patient ([facility]) Z99.2 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 ([facility]) I12.0, N18.6, Z99.2 DNR (do not resuscitate) Z66 ESRD (end stage renal disease) on dialysis ([facility]) N18.6, Z99.2 Tobacco user Z72.0 Bladder stones N21.0 Pleural effusion, right J90 COPD, group C, by GOLD 2017 classification ([facility]) J44.9 Current Outpatient Medications Medication Sig Dispense Refill Cholecalciferol 2000 units Capsule Take 1 Capsule by mouth in the morning. 30 Cap 3 Calcium Acetate, Phos Binder, 667 MG TABS take 2 pills 3 x daily 180 Tab 11 Sodium Chloride Flush (NORMAL SALINE FLUSH) 0.9 % SOLN injection FLUSH ONCE DAILY WITH 10ml 300 mL 1 amLODIPine Besylate 5 MG Oral Tablet (Norvasc) TAKE 1 TABLET BY MOUTH ONCE DAILY IN THE MORNING 90 Tablet 2 Incruse Ellipta 62.5 MCG/ACT Inhalation Aerosol Powder Breath Activated (umeclidinium [place]) Inhale 1 Puff by mouth in the morning. 30 Each 11 Citalopram Hydrobromide 10 MG Oral Tablet (CeleXA) TAKE 1 TABLET BY MOUTH ONCE DAILY AT BEDTIME 30 Tablet 5 Atenolol 50 MG Oral Tablet (Tenormin) TAKE 1 TABLET BY MOUTH ONCE DAILY AT BEDTIME 90 Tablet 1 Nephro-Farzana 0.8 MG Oral Tablet TAKE ONE TABLET BY MOUTH ONCE DAILY 90 Tablet 3 Ventolin HFA 108 (90 Base) MCG/ACT Inhalation Aerosol Solution INHALE TWO PUFFS BY MOUTH EVERY 4 HOURS NEEDED FOR COUGH, SHORTNESS OF BREATH, OR WHEEZING 18 g 5 LORazepam 0.5 MG Oral Tablet (Ativan) Take 1 Tablet by mouth every 8 hours as needed for Anxiety. 30 Tablet 0 Leuprolide Acetate (3 Month) 22.5 MG Subcutaneous Kit ([employer]) Inject 22.5 mg under the skin. Every 3 months No current facility-administered medications for this visit. Current and discharge medications have been reconciled. Review of patient's allergies indicates: Allergen Reactions Pantoprazole Sodium Edema face/lips/tongue Latex OBJECTIVE: BP 182/90 | Pulse 61 | Temp 36.6 C (97.9 F) (Tympanic) | Resp 20 | Wt 63.6 kg (140 lb 4.8 oz) |SpO2 92% | BMI 24.85 kg/m | BSA 1.68 m REVIEW OF SYSTEMS: PHYSICAL EXAM: BP 182/90 | Pulse 61 | Temp 36.6 C (97.9 F) (Tympanic) | Resp 20 | Wt 63.6 kg (140 lb 4.8 oz) |SpO2 92% | BMI 24.85 kg/m | BSA 1.68 m Physical Exam Vitals and nursing note reviewed. Constitutional: General: He is not in acute distress. Appearance: Normal appearance. He is not ill-appearing. HENT: Head: Normocephalic and atraumatic. Right Ear: Tympanic membrane normal. Left Ear: Tympanic membrane normal. Nose: Nose normal. No congestion or rhinorrhea. Mouth/Throat: Mouth: Mucous membranes are moist. Eyes: General: No scleral icterus. Pupils: Pupils are equal, round, and reactive to light. Neck: Vascular: No carotid bruit. Cardiovascular: Rate and Rhythm: Normal rate and regular rhythm. Heart sounds: No murmur heard. Pulmonary: Effort: Pulmonary effort is normal. No prolonged expiration. Breath sounds: No stridor. Examination of the right-lower field reveals rales. Decreased breath sounds (Right base) and rales present. No wheezing or rhonchi. Comments: Dullness to percussion at the right base Abdominal: General: Bowel sounds are normal. Palpations: Abdomen is soft. Tenderness: There is no abdominal tenderness. Musculoskeletal: Cervical back: Normal range of motion. Right lower leg: No edema. Left lower leg: No edema. Lymphadenopathy: Cervical: No cervical adenopathy. Skin: General: Skin is warm and dry. Capillary Refill: Capillary refill takes less than 2 seconds. Findings: No rash. Neurological: General: No focal deficit present. Mental Status: He is alert and oriented to person, place, and time. Psychiatric: Mood and Affect: Mood normal. Behavior: Behavior normal. Thought Content: Thought content normal. Judgment: Judgment normal. ASSESSMENT: Panic attack as reaction to stress (Primary) - LORazepam 0.5 MG Oral Tablet (Ativan); Take 1 Tablet by mouth every 8 hours as needed for Anxiety. History of pleural effusion COPD, group C, by GOLD 2017 classification (HCC) 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 ([facility]CC) Kidney disease, chronic, stage V (GFR under 15 ml/min) (HCC) Prostate cancer (HCC) Other orders - DISCH MED RECON CUR MED LIS Pleural effusion has improved. Results so far unrevealing. Unclear significance of mesothelial cells found on cytology. Awaiting pulmonology evaluation in the spring. Continue hemodialysis 3 days a week on Tuesdays, and Saturdays. Continue follow-up with [facility]. After discussing risks and benefits of antianxiety medications, patient was offered Lorazepam 0.5 mg every 8 hrs as needed for anxiety. Appropriate medication use and potential medication side effects discussed with patient. We discuss potential risk of physical dependence, tolerance as well as addiction. Advised to take medication only sparingly. Increase risk of falls while taking lorazepam also discussed with patient. Continue citalopram 10 mg at bedtime. Could consider increasing citalopram in the future. No KAY has been completed, I am not sure he will need it long-term. Follow Up: Return if symptoms worsen or fail to improve, for keep appt in May. | For: keep appt in May Edgar Gamble MD documented in this encounter Nursing Notes * Kait Soria MED ASSIST - 02/10/2023 11:59 AM EST The patient has been properly identified by confirmation of name and date of . Chief Complaint Patient presents with Hospital Follow-Up documented in this encounter Plan of Treatment Upcoming Encounters Date Type Department Care Team (Late st Contact Info) Description 03/03/2023 8:15 AM EST Cardiac Studies [facility] [address] [facility] [address] 04/12/2023 3:30 PM EST Procedure Only Urology, [facility] [address] [facility] [place] [id number] Travon Canales MD [address] [place] [address] [place] [address] 04/19/2023 11:00 AM EST Appointment Interventional [place] 1st Floor [address] [place] [address] 05/17/2023 1:00 PM EDT Office Visit Pulmonary Medicine, [facility] [address] [place] [address] Tino Stapleton MD [address] [place] [address] 06/07/2023 11:50 AM EDT [facility] Visit [facility] [place] [address] Edgar Gibbs MD [address] [place] [address] Health Maintenance Due Date Last Done Comments Alpha-1 Antitrypsin 05/18/1963 Hepatitis C Screening 05/18/1963 *COPD SEVERITY VERIFIED BY PFT 03/05/2022 COVID-19 Vaccine ( season) 2022 01/19/2021, 06/10/2020, 05/20/2020 Influenza Vaccine (FLU shot) (#1) 2022 12/04/2021, 12/22/2020, 12/22/2020, Additional history exists DISCUSS TOBACCO CESSATION (REFER TO SMARTSET #[id number]) 06/04/2023 06/03/2022 Depression Screening 06/04/2023 06/03/2022 O2 ASSESSMENT COMPLETED IN PAST YEAR FOR COPD 02/02/2024 02/10/2023 DTaP,Tdap,and Td Vaccines (2 - Td or Tdap) 12/29/2027 12/28/2017 Hepatitis B Completed 12/20/2018, 06/28, 06/19/2018 Pneumococcal Vaccine: 65+ Years Completed 03/16/2022, 12/28/2017 GARDASIL-HPV IMMUNIZATION SERIES Aged Out No longer eligible based on patient's age to complete this topic MENINGOCOCCAL (MENACTRA/MENVEO) Aged Out No longer eligible based on patient's age to complete this topic Zoster Vaccines Discontinued documented as of this encounter Medical Devices Not on filedocumented as of this encounter Visit Diagnoses Diagnosis Panic attack as reaction to stress- Primary Predominant disturbance of emotions History of pleural effusion Personal history of other diseases of respiratory system COPD, group C, by GOLD 2017 classification (HCC) 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 (HCC) Kidney disease, chronic, stage V (GFR under 15 ml/min) (HCC) Chronic kidney disease, Stage V Prostate cancer (HCC) Malignant neoplasm of prostate documented in this encounter Advance Directives Latest Code Status on File Code Status Date Activated Date Inactivated Comments Full Code 04/15/2015 4:40 PM 04/16/2015 5:24 PM This order reflects the patients wishes and were consensually agreed upon. Care Teams Buff Wheel Fabricator Relationship Specialty Start Date End Date Edgar Gibsb MD [address] [place] [address] PCP - General Family Medicine 07/03/20 documented as of this encounter"
--- OUTSIDE RECORDS SUMMARY | 2023-06-02 11:46 | External Medical Summary ---
Author Name Unknown Address Unknown Organization K01:[facility] - [address] [facility] [place] [address] Laboratory Report Ordering Provider Test Date Status CIARA SANTOS 02/01/2023 12:22:55 Final Some reference ranges and ot her method performance specifications have not been established for this fluid. The test results must be integrated into the clinical context for interpretation. Observation Date Value Abnormality Reference (Units ) Status SYNC TOTAL NUCLEATED CELLS FLUID 02/01/2023 12:22:55 391 (cells/uL) Final Neutrophils/100 leukocytes in Body fluid by Manual count 02/01/2023 12:22:55 5 Above high normal 0-1 (%) Final Lymphocytes, Body Fluid 02/01/2023 12:22:55 74 Above high normal 18-36 (%) Final Monocytes/100 leukocytes in Body fluid by Manual count 02/01/2023 12:22:55 16 Below low normal 64-80 (%) Final Eosinophils/100 leukocytes in Body fluid by Manual count 02/01/2023 12:22:55 1 (%) Final Basos, Body Fluid 02/01/2023 12:22:55 2 (%) Final LINING CELLS/100 NUCLEATED CELLS IN BODY FLUID 02/01/2023 12:22:55 2 0-2 (%) Final SEGMENTED NEUTROPHILS (1000/UG) IN BODY FLUID ABS 02/01/2023 12:22:55 19.55 (cells/uL) Final LYMPHOCYTES (1000/UG) IN BODY FLUID ABS 02/01/2023 12:22:55 289.34 (cells/uL) Final MONOCYTES(1000/UG) IN BODY FLUID ABS 02/01/2023 12:22:55 62.56 (cells/uL) Final EOSINOPHILS (1000/UG) IN BODY FLUID ABS 02/01/2023 12:22:55 3.91 (cells/uL) Final BASOPHILS (1000/UG) IN BODY FLUID ABS 02/01/2023 12:22:55 7.82 (cells/uL) Final LINING CELLS IN BODY FLUID ABS 02/01/2023 12:22:55 7.82 (cells/uL) Final Performing Location [facility] [address] [facility] [id number]
--- OUTSIDE RECORDS SUMMARY | 2023-06-02 11:46 | External Medical Summary ---
Author Name Unknown Address Unknown Organization K01:[facility] [address] [place] [address] Laboratory Report Ordering Provider Test Date Status CIARA SANTOS 02/01/2023 12:22:55 Final Some reference ranges and ot her method performance specifications have not been established for this fluid. The test results must be integrated into the clinical context for interpretation. Observation Date Value Abnormality Reference (Units ) Status Clarity of Body fluid 02/01/2023 12:22:55 Clear Clear Final Color of Body fluid 02/01/2023 12:22:55 Yellow Straw, Yellow, Colorless Final Nucleated cells [#/volume] in Body fluid by Automated count 02/01/2023 12:22:55 391 <3800 (cells/uL) Final Erythrocytes [#/volume] in Body fluid by Automated count 02/01/2023 12:22:55 338 (cells/uL) Final Performing Location [facility] [address] [place] [address]
--- OUTSIDE RECORDS SUMMARY | 2023-06-02 11:46 | External Medical Summary | Summary of Care ---
Author Name Unknown Organization [facility] Address [address] [place] [address] Phone [phone] Care Team Providers Care Warehouse Freight Handler Name Role Phone Edgar Gibbs MD Primary Care P [facility] Reason for Visit * Precert (Within 10 days (routine)) - Authorized Specialty Diagnoses / Procedures Referred By Contac t Referred To Contact Radiology Diagnoses Pleural effusion, not elsewhere classified Procedures DC THORACENTESIS NEEDLE/CATH PLEURA W/IMAGING Sally Alvarez PA-C [address] [place] [address] Referral ID Status Reason Start Date Expiration Date V isits Requested Visits Authorized [id number] Authorized Precert 03/06/2023 11/29/[id number] Encounter Details Date Type Department Care Team (Latest Contact Info) Description 03/09/2023 9:25 AM EST - 03/09/2023 11:09 AM EST Hospital Encounter Radiology Waiting Room [facility] 1st Floor [address] [place], [place] [id number] Xander Hickman MD [address] [place] [address] Arrived Discharge Disposition: Home - Self Care Allergies Active Allergy Reactions Criticality Noted Date Comments Latex 07/19/2019 Pantoprazole Sodium Edema face/lips/tongue High 04/0 02/2014 documented as of this encounter (statuses as of 03/09/2023) Medications Medication Sig Dispensed Refills Start Date End Date Status Cholecalciferol 2000 units Capsule Take 1 Capsule by mouth in the morning. 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) ([facility]) take 2 pills 3 x daily 180 [...] MCG/ACT Inhalation Aerosol Powder Breath Activated (umeclidinium [place])Indications:C hronic obstructive pulmonary disease, unspecified COPD type ([facility]) Inhale 1 Puff by mouth in the [...] Base) MCG/ACT Inhalation Aerosol SolutionIndications:C OPD exacerbation ([facility]) INHALE TWO PUFFS BY MOUTH EVERY 4 HOURS NEEDED FOR COUGH, SHORTNESS OF BREATH, OR WHEEZING 18 g 5 01/20/2023 Active LORazepam 0.5 MG Oral Tablet (Ativan)Indications:P anic attack as reaction to stress Take 1 Tablet by mouth every 8 hours as needed for Anxiety. 30 Tablet 0 02/10/2023 Active documented as of this encounter (statuses as of 03/09/2023) Active Problems Problem Noted Date Diagnosed Date [...] as of this encounter (statuses as of 03/09/2023) Resolved Problems Problem Noted Date Diagnosed Date [...] as of this encounter (statuses as of 03/09/2023) Immunizations Name Administration Dates Next Due COVID-19 mRNA, LNP-s, No Pre serve, 2-Dose Series (Pfizer) 01/19/2021,06/10/2020,05/20/2020 Pneumococcal Conjugate Vacci ne, 20-valent ([id number]) 03/16/2022 Pneumococcal Polysaccharide PPV23 (Pneumovax) 12/28/2017 Seasonal [...] Sign Reading Time Taken Comments Blood Pressure 150/81 03/09/2023 10:50 AM EST Pulse 56 03/09/2023 10:50 AM EST Temperature 35.9 C (96.6 F) 03/09/2023 10:[address] Respiratory Rate 22 03/09/2023 10:50 AM EST Oxygen Saturation 92% 03/09/2023 10:50 AM EST Inhaled Oxygen Concentration - - [...] Discharge Instructions * Discharge Instr - AVS* Sally Alvarez PA-C - 03/09/2023 9:36 AM EST Discharge Date: 03/09/2023 Provider: Sally Alvarez PA-C If you are experiencing any problems related to your procedure, please contact Interventional Radiology at [phone] during normal business hours: Monday - Monday, 8:00 am - 4:00 pm. If a problem occurs outside of normal business hours, please call the hospital glue spreading machine operator at [phone] and ask for the Interventional Radiologist public opinion survey taker. Contact scheduling for Interventional Radiology at [phone] during normal business hours: Monday - Monday, [...] homicidal, please call the crisis hotline at [phone] ([phone]). Driving: You may resume driving today . Diet: You may resume your current diet as tolerated. Return to work or school: You may return to school or work 2 hours after the procedure, unless otherwise instructed by the physician. documented in this encounter Nursing Notes * Shannon Carrasco RN - 03/09/2023 10:53 AM EST DISCHARGE - POST INTERVENTIONAL RADIOLOGY PROCEDURE Patient meets discharge criteria for Interventional Radiology. Vital signs stable. Dressing clean, dry, and intact. Patient awake and oriented to pre procedure baseline. Discharge instructions given,no questions at this time. Patient tolerating liquids, with no nausea/vomiting. All belongings sentwith patient. Discharged to home. Vital Signs: BP: 150/81 (03/09/23 1050) Temp: 35.9 C (96.6 F) (03/09/23 105) Pulse: 56 (03/09/23 1050) Resp: 22 (03/09/231049) SpO2: 92 % (03/09/231049) Neurological: [place] Coma Scale Eyes Open: Spontaneous (03/09/231049) Best Verbal Response: Verbally appropriate for age (03/09/23 105) Best Motor Response: Obeys commands appropriate for age (03/09/231049) Coma Score: 15 (03/09/231049) Activity: Four Extremities LOC: Fully Awake or Pre-Anesthetic Level of Consciousness BP: Less than (+/-) 20% Resp: Deep Breathe and Cough Freely (03/09 1038) Respiratory: Pain Assessment Flowsheet Row Most Recent Value [facility] 0-10 Pain Score 0 (no pain) * Geeta Hogan RN - 03/09/2023 9:59 AM EST director of customer service note Name: Matthew Rowe Date: 03/09/2023 Time: 9:54 AM Procedure: Right Thoracentesis Patient ID band checked using two identifiers. Patient sitting on stretcher leaning on procedure table with comfort and safety measures intact. Hemodynamic monitoring placed and initiated. Patient denies any current complaints at current time. RT staff prepares and preps patient for procedure. 10:00 AM Patient prepped and ready. Procedure by physician. 10:02 AM Timeout performed by Sally Alvarez PA-C. 10:04 AM Procedure started by Sally Alvarez PA-C, and scrubbed RT Felisa Chavarria Ultrasound utilized for anatomical analysis of patient and access needle guidance. Numbing right posterior chest site with 1% buffered lidocaine. 10:07 AM Access obtained. Placed to vacuum container. Draining dark yellow fluid. Images obtained. 10:16 AM Thoracentesis complete. Final images obtained. Access removed. 10:17 AM Area cleaned. Xeroform, gauze, and tegaderm dressing applied. Total Output: 1600 mL Patient tolerated procedure well without complications. All [...] the scrubbed RT and the operating physician. Patient did not receive conscious sedation for their procedure. Total medications given 1% buffered lidocaine: 10 mL Please see doctor's operative note for additional details. documented in this encounter Miscellaneous Notes * Postprocedure Note - Sally Alvarez PA-C - 03/09/2023 10:00 AM EST PROCEDURE NOTE - Interventional Radiology [facility] [address] Name: Matthew Rowe Location: RADIOLOGY WAITING ROOM/IR Date: 03/09/2023 Time: 10:12AM PROCEDURE: US-guided thoracentesis FLUOROSCOPE OPERATOR: Sally Alvarez PA-C and Dr. Dahl PGY4 ASSISTANTS: Derian Mack, RT ANESTHESIA: local COMPLICATIONS: none SPECIMEN: none ESTIMATED BLOOD LOSS: negligible FINDINGS: Successful US-guided R sided thoracentesis. Please see PACS imaging for details. documented in this encounter Plan of Treatment Upcoming Encounters Date Type Department Care Team (Late st Contact Info) Description 04/12/2023 3:30 PM EST Procedure Only Urology, [facility] [address] [facility] [place] [address] Travon Canales MD 27 [facility] [address] [place] [address] 04/19/2023 11:00 AM EST Appointment Interventional Radiology [facility] 1st Floor [address] [place] [address] 05/17/2023 1:00 PM EDT Office Visit Pulmonary Medicine, [facility] [address] [facility] [place] [address] Tino Stapleton MD [address] [place] [address] 06/07/2023 11:50 AM EDT Office Visit Family [facility] [address] [place] [phone] Edgar Gibbs MD [address] [place] [address] 02/26/2024 9:30 AM EST Cardiac Studies Cardiac Studies, [facility] [address] [facility] [place] [address] Health Maintenance Due Date Last Done Comments [...] Associated Diagnosis Comments IR CHEST THORACENTESIS Routine 10:19 AM EST Pleural effusion, right documented in this encounter Results * IR CHEST THORACENTESIS (03/09/2023 10:19 AM EST) Anatomical Region Laterality Modality Any X-Ray Angiograph y 03/09/2023 3:26 PM EST Impressions 03/09/2023 4:47 PM EST IMPRESSION: Successful ultrasound-guided right thoracentesis. PLAN: Follow-up as needed for repeat thoracentesis for symptom management. Narrative 03/09/2023 4:47 PM EST PROCEDURE: Right thoracentesis INDICATION: 77 year old male with recurrent pleural effusion and worsening SOB in need of thoracentesis. OPERATING PROVIDER: Sally Alvarez PA-C SUPERVISING PHYSICIAN: Dr. Xander Hickman SCRUBBED RESIDENT (OPERATING PHYSICIAN): Dr. Jordan Dahl, PGY4 SUPPORTING PROVIDER (FIELD COUNSEL): RT Shayy CONSENT: After a detailed discussion of the procedure, risks, benefits and alternative treatment options, informed consent was obtained. TIME OUT: A time out procedure was performed. The patient's identification was verified. Informed consent with agreement of procedure, site and position was obtained. All necessary equipment was available prior to procedure. CONTRAST: No contrast was administered. COMPLICATIONS: None. ANESTHESIA: Local lidocaine. SEDATION TIME: N/A MEDICATIONS: See MAR. PROCEDURE DESCRIPTION: After survey ultrasound exam of the right posterior thorax, the site was prepped and draped in the usual sterile fashion. Using real-time ultrasound guidance, the pleural cavity was accessed. The access was obtained in an intercostal fashion, superior to the rib. Ultrasound images demonstrating the needle tip within the pleural cavity were acquired and digitally archived. A total of 1600 milliliters of dark yellow fluid was collected in empty bottles and discarded.. The catheter was then removed and an occlusive dressing was applied. The procedure was performed under the personal supervision of Dr. Hickman who was immediately available for the entire procedure. FINDINGS: Right pleural effusion was noted on ultrasound. Post thoracentesis demonstrates minimal residual fluid. Procedure Note Xander Hickman MD - 03/09/2023 PROCEDURE: Right thoracentesis INDICATION: 77 year old male with recurrent pleural effusion and worseningSOB in need of thoracentesis. OPERATING PROVIDER: Sally Alvarez PA-C SUPERVISING PHYSICIAN: Dr. Xander Hickman SCRUBBED RESIDENT (OPERATING PHYSICIAN): Dr. Jordan Dahl, PGY4 SUPPORTING PROVIDER (FIELD COUNSEL): Derian Mack RT CONSENT: After a detailed discussion of the procedure, risks, benefits andalternative treatment options, informed consent was obtained. TIME OUT: A time out procedure was performed. The patient's identificationwas verified. Informed consent with agreement of procedure, site andposition was obtained. All necessary equipment was available prior toprocedure. CONTRAST: No contrast was administered. COMPLICATIONS: None. ANESTHESIA: Local lidocaine. SEDATION TIME: N/A MEDICATIONS: See MAR. PROCEDURE DESCRIPTION: After survey ultrasound exam of the right posteriorthorax, the site was prepped and draped in the usual sterile fashion.Using real-time ultrasound guidance, the pleural cavity was accessed. Theaccess was obtained in an intercostal fashion, superior to the rib.Ultrasound images demonstrating the needle tip within the pleural cavitywere acquired and digitally archived. A total of 1600 milliliters of darkyellow fluid was collected in empty bottles and discarded.. The catheter was then removed and an occlusive dressing was applied. The procedure was performed under the personal supervision of who was immediately available for the entire procedure. FINDINGS: Right pleural effusion was noted on ultrasound. Post thoracentesisdemonstrates minimal residual fluid. IMPRESSION IMPRESSION: Successful ultrasound-guided right thoracentesis. PLAN: Follow-up as needed for repeat thoracentesis for symptommanagement. Sally Alvarez PA-C RAD SPECIAL PROCEDUR ES documented in this encounter Visit Diagnoses Diagnosis Pleural effusion, right Unspecified pleural effusion documented in this encounter Administered Medications Inactive Administered Medications - up to 3 most recent administrations Medication Order MAR Action Action Date Dose Rate Site buffered lidocaine 1 % inj Intradermal, ONCE PRN INTRA PROCEDURE, Starting on Cristina 03/09/23 at 1010, Until Cristina 03/09/23 at 1010, Intra-Op Given 03/09/2023 10:10 AM EST 10 mL Back Right documented in this encounter Active and Recently Administered Medications Times are shown in EST. PRN Medication Order 03/07/2023 03/08/2023 03/09/2023 buffered lidocaine 1 % inj (COMPLETED) Intradermal, ONCE PRN INTRA PROCEDURE, Starting on Cristina 03/09/23 at 1010, Until Cristina 03/09/23 at 1010, Intra-Op 1010 (Given - Provid er: Sally Alvarez PA-C) documented in this encounter Advance Directives Latest Code Status on File Code Status Date Activated Date Inactivated Comments Full Code 04/15/2015 4:40 PM 04/16/2015 5:24 PM This order reflects the patients wishes and were consensually agreed upon. Care Teams Warehouse Freight Handler Relationship Specialty Start Date End Date Edgar Gibbs MD [address] [place] [address] PCP - General Family Medicine 07/03/20 documented as of this encounter
--- OUTSIDE RECORDS SUMMARY | 2023-06-02 11:46 | External Medical Summary ---
Author Name Unknown Address Unknown Organization [id number]:LABORATORY [facility] - [address] [place] [address] Laboratory Report Ordering Provider Test Date Status CIARA SANTOS 02/01/2023 12:22:55 Final No anaerobic growth. Observation Date Value Abnormality Reference (Units) Status Bacteria identified in Specimen by Culture 02/01/2023 12:22:55 [id number]^STAPHYLO COCCUS, COAGULASE NEGATIVE Very abnormal Final One colony Staphylococcus, c oagulase negative
Probable contaminant
Clinical correlation needed Gram Stain 02/01/2023 12:22:55 No polymorphonuclear leukocyt es seen Final Gram Stain 02/01/2023 12:22:55 No organisms seen Final Test: Culture, Body Fluid, A erobic and Anaerobic
Specimen Source: Pleural fluid, Right
Specimen Type: Body Fluid
Specimen Date: 02/01/2023 12:22 PM
Result Date: 02/08/2023 3:10 PM
Result Status: Final result
Abnormal: Yes
Resulting Lab: LABORATORY [facility]
[address]
[place] [address]

CULTURE

One colony Staphylococcus, coagulase negative (Panic)

Probable contaminant
Clinical correlation needed

No anaerobic growth.

STAIN

No polymorphonuclear leukocytes seen

No organisms seen

null Performing Location LABORATORY [facility] - [address] [facility] [address]
--- OUTSIDE RECORDS SUMMARY | 2023-06-02 11:46 | External Medical Summary ---
Author Name Unknown Address Unknown Organization K01:LABORATORY [facility] - [address] [place] [address] Laboratory Report Ordering Provider Test Date Status CIARA SANTOS 02/01/2023 13:55:19 Final Observation Date Value Abnormality Reference (Units ) Status Protein 02/01/2023 13:55:19 6.3 6.0-8.3 (g /dL) Final Performing Location LABORATORY [facility] - [address] [place] [address]
--- OUTSIDE RECORDS SUMMARY | 2023-06-02 11:46 | External Medical Summary | Summary of Care ---
Author Name Unknown Organization [facility] Address [address] [facility] [place] [address] Phone [phone] Care Team Providers Care Smash Fixer Name Role Phone Edgar Gibbs MD Primary Care P rovider Encounter Details Date Type Department Care Team (Late st Contact Info) Description 02/02/2023 Result Scan Unspecified Department <No scans attached> Allergies Active Allergy Reactions Criticality Noted Date Comments Latex 07/19/2019 Pantoprazole Sodium Edema face/lips/tongue High 04/0 02/2014 documented as of this encounter (statuses as of 02/06/2023) Medications Medication Sig Dispensed Refills Start Date End Date Status Cholecalciferol 2000 units Capsule Take 1 Capsule by mouth in the morning. 30 Cap 3 03/28/2017 Active Calcium Acetate, Phos Binder, 667 MG TABSIndications:Kidn ey disease, chronic, stage V (GFR under 15 ml/min) ([facility]) take 2 pills 3 x daily 180 Tab 11 10/26/2018 Active Sodium Chloride Flush (NORMAL SALINE FLUSH) 0.9 % SOLN injection FLUSH ONCE DAILY WITH 10ml 300 mL 1 03/12/2019 Active Additional Information Patient not taking.Reported on 01/02/2023 Leuprolide Acetate (3 Month) 22.5 MG Subcutaneous Kit (Eligard) Inject 22.5 mg under the skin. Every 3 months 0 11/18/2020 Active amLODIPine Besylate 5 MG Oral Tablet (Norvasc) TAKE 1 TABLET BY MOUTH ONCE DAILY IN THE MORNING 90 Tablet 2 02/23/2022 Active Incruse Ellipta 62.5 MCG/ACT Inhalation Aerosol Powder Breath Activated (umeclidinium [place])Indications: Chronic obstructive pulmonary disease, unspecified COPD type [...] OR WHEEZING 18 g 5 01/20/2023 Active Azithromycin 250 MG Oral Tablet (Zithromax Z-Gene)Indications:Pl eural effusion, right,Loss of weight,Chronic cough Take two tablets by mouth on first day, then 1 tablet daily until gone 6 Tablet 0 01/26/2023 Active documented as of this encounter (statuses as of 02/06/2023) Active Problems Problem Noted Date Diagnosed Date [...] as of this encounter (statuses as of 02/06/2023) Resolved Problems Problem Noted Date Diagnosed Date [...] as of this encounter (statuses as of 02/06/2023) Immunizations Name Administration Dates Next Due COVID-19 mRNA, LNP-s, No Pre serve, 2-Dose Series ([employer]) 01/19/2021,06/10/2020,05/20/2020 Pneumococcal Conjugate Vacci ne, 20-valent ([id number]) 03/16/2022 Pneumococcal Polysaccharide PPV23 (Pneumovax) 12/28/2017 SEASONAL INFLUENZA, PF, 6 M & Above, IM , (FLULAVAL or FLUZONE) 12/22/2020,12/28/2018,12/27/2016 Seasonal Influenza Virus Vac cine, Unspecified Formulation 12/22/2020,12/28/2018,12/27/2016,01/11 Seasonal Influenza, Quadriva lent, No Preserve, IM [...] Care Team (Late st Contact Info) Description 02/10/2023 11:30 AM EST Office Visit [facility] [address] [place] [phone] Edgar Gibbs MD [address] [place] [address] 03/03/2023 8:15 AM EST Cardiac Studies Cardiac Studies, [facility] [address] [facility] [place] [address] 04/12/2023 3:30 PM EST Procedure Only Urology, [facility] [address] [facility] [place] [address] Travon Canales MD [address] [facility] [address] [place] [address] 04/19/2023 11:00 AM EST Appointment Interventional Radiology [facility], [facility] 1st Floor [address] [place] [address] 05/17/2023 1:00 PM EDT Office Visit Pulmonary Medicine, [facility] [address] [facility] [place] [address] [facility]ino [facility]apleton [facility] [address] [facility] [address] 06/07/2023 11:50 AM EDT Office Visit [address] [phone] Edgar Gibbs MD [address] [place] [address] Health Maintenance Due Date Last Done Comments Alpha-1 Antitrypsin 05[birth year]18/1963 Hepatitis C Screening 05/18/1963 *COPD SEVERITY VERIFIED BY PFT 03/05/2022 COVID-19 Vaccine ( season) 2022 01/19/2021, 06/10/2020, 05/20/2020 Influenza Vaccine (FLU shot) (#1) 2022 12/04/2021, 12/22/2020, 12/22/2020, Additional history exists DISCUSS TOBACCO CESSATION (REFER TO SMARTSET #6926) 06/04/2023 06/03/2022 Depression Screening 06/04/2023 06/03/2022 O2 ASSESSMENT COMPLETED IN PAST YEAR FOR COPD 02/02/2024 02/01/2023 DTaP,Tdap,and Td Vaccines (2 - Td or [...] Date/Time Associated Diagnosis Comments OUTSIDE LAB RESULTS 02/02/2023 documented in this encounter Results * OUTSIDE LAB RESULTS (02/02/2023) 02/02/2023 No Physician Data Unknown LABORATORY documented in this encounter Advance Directives Latest Code Status on File Code Status Date Activated Date Inactivated Comments Full Code 04/15/2015 4:40 PM 04/16/2015 5:24 PM This order reflects the patients wishes and were consensually agreed upon. Care Teams Smash Fixer Relationship Specialty Start Date End Date Edgar Gibbs MD [address] [place] [address] PCP - General Family Medicine 07/03/20 documented as of this encounter
--- OUTSIDE RECORDS SUMMARY | 2023-06-02 11:46 | External Medical Summary ---
Author Name Unknown Address Unknown Organization K01:[facility] [place] [address] [place] [address] Laboratory Report Ordering Provider Test Date Status CIARA SANTOS 02/01/2023 12:22:55 Final Observation Date Value Abnormality Reference (Units) Status Pathologist review of results 02/01/2023 12:22:55 Right pleural fluid: Final Pathologist review of results 02/01/2023 12:22:55 - Occasional atypical cells, favor reactive mesothelial cells. Clinical correlation recommended. Final Performing Location LABORATORY [facility] - [address] [place] [address]
--- OUTSIDE RECORDS SUMMARY | 2023-06-02 11:46 | External Medical Summary ---
Author Name Unknown Address Unknown Organization K01:LABORATORY [place] [address] [facility] [address] [facility] [address] Laboratory Report Ordering Provider Test Date Status CIARA SANTOS 02/01/2023 12:22:55 Final Observation Date Value Abnormality Reference (Units ) Status Lactate dehydrogenase [Enzymatic activity/volume] in Body fluid by Lactate to pyruvate reaction 02/01/2023 12:22:55 77 (U/L) Final The reference interval(s) an d other method performance specifications may not be available for this body fluid. Comparison of this result with the concentration in the blood, serum, or plasma is recommended. The test result must be integrated into the clinical context for interpretation.

Please refer to test catalog ([email or web address].[email or web address]/body_[email or web address].cfm) for additional interpretive information.

This test was developed and its performance characteristics determined by [employer]. It has not been cleared or approved by the [place] Food and Drug Administration. Performing Location LABORATORY [place] [address] [facility] [address]
--- OUTSIDE RECORDS SUMMARY | 2023-06-02 11:46 | External Medical Summary | Summary of Care ---
Author Name Unknown Organization [facility] Address [address] [facility] [place] [address] Phone [phone] Care Team Providers Care Food Technician Name Role Phone Edgar Gibbs MD Primary Care P rovider Reason for Visit * Reason Onset Date Comments Abnormal Test Results 02/03/2023 Encounter Details Date Type Department Care Team ([facility] st Contact Info) Description 02/03/2023 Telephone Family Practice [address] [address] Edgar Gibbs MD [address] [place] [address] Abnormal Test Results Allergies Active Allergy Reactions Criticality Noted Date Comments Latex 07/19/2019 Pantoprazole Sodium Edema face/lips/tongue High 04/0 02/2014 documented as of this encounter (statuses as of 02/03/2023) Medications Medication Sig Dispensed Refills Start Date End Date Status Cholecalciferol 2000 units Capsule Take 1 Capsule by mouth in the morning. 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) ([facility]) take 2 pills 3 x [...] MCG/ACT Inhalation Aerosol Powder Breath Activated (umeclidinium Hewitt)Indications :Chronic obstructive pulmonary disease, unspecified COPD type (HCC) [...] HFA 108 (90 Base) MCG/ACT Inhalation Aerosol SolutionIndications :COPD exacerbation (HCC) INHALE TWO PUFFS BY MOUTH EVERY 4 HOURS NEEDED FOR COUGH, SHORTNESS OF BREATH, OR WHEEZING 18 g 5 01/20/2023 Active Azithromycin 250 MG Oral Tablet (Zithromax Z-Gene)Indications:P leural effusion, right,Loss of weight,Chronic cough Take two tablets by mouth on first day, then 1 tablet daily until gone 6 Tablet 0 01/26/2023 Active Cefdinir 300 MG Oral Capsule (Omnicef)Indication s:Pleural effusion, right,ESRD (end stage renal disease) on dialysis (HCC) Take 1 Capsule by mouth every other day for 5 doses. For 10 days. 5 Capsule 0 01/26/2023 02/04/2023 Active documented as of this encounter (statuses as of 02/03/2023) Active Problems Problem Noted Date Diagnosed Date [...] as of this encounter (statuses as of 02/03/2023) Resolved Problems Problem Noted Date Diagnosed Date [...] as of this encounter (statuses as of 02/03/2023) Immunizations Name Administration Dates Next Due COVID-19 mRNA, LNP-s, No Pre serve, 2-Dose Series (Pfizer) 01/19/2021,06/10/2020,05/20/2020 Pneumococcal Conjugate Vacci ne, 20-valent ([id number]) 03/16/2022 Pneumococcal Polysaccharide PPV23 (Pneumovax) 12/28/2017 SEASONAL [...] encounter Miscellaneous Notes * Telephone Encounter - Edgar Gibbs MD - 02/03/2023 1:32 PM EST Recent labs and pleural fluid testing reviewed. None of the Light's criteria are met, this suggestslikely transudative effusion. Atypical cells noted, mesothelial cells. Awaiting pulmonary evaluation. Cytology was benign. Mesothelial cells noted. No signs of infection noted on pleural fluid. Like growth normal elle on pleural fluid culture. I called patient mobile phone number, it is the 's Eliana. No answer. Voicemail left to them to call the office if they have any questions. documented in this encounter Plan of Treatment Upcoming Encounters Date Type Department Care Team ([facility] st Contact Info) Description 02/10/2023 11:30 AM EST Office Visit [address] [phone] Edgar Gibbs MD [address] [place] [address] 03/03/2023 8:15 AM EST Cardiac Studies Cardiac Studies, [facility] [address] [facility] [place] [address] 04/12/2023 3:30 PM EST Procedure Only Urology, [facility] [address] [facility] [place] [address] Travon Canales MD [address] [place] [address] [place] [address] 04/19/2023 11:00 AM EST Appointment Interventional Radiology [facility], [facility] 1st Floor [address] [facility] [address] 05/17/2023 1:00 PM EDT Office Visit Pulmonary Medicine, [facility] [address] [facility] [place] [address] Tino Stapleton MD [address] [place] [address] 06/07/2023 11:50 AM EDT Office Visit [facility] [address] [place] [address] Edgar Gibbs MD [address] [place] [address] Health Maintenance Due Date Last Done Comments Alpha-1 Antitrypsin 05[birth year]18/1963 Hepatitis C Screening 05/18/1963 *COPD SEVERITY VERIFIED BY PFT 03/05/2022 COVID-19 Vaccine ( season) 2022 01/19/2021, 06/10/2020, 05/20/2020 Influenza Vaccine (FLU shot) (#1) 2022 12/04/2021, 12/22/2020, 12/22/2020, Additional history exists DISCUSS TOBACCO CESSATION (REFER TO SMARTSET #7784) 06/04/2023 06/03/2022 Depression Screening 06/04/2023 06/03/2022 O2 [...] were consensually agreed upon. Care Teams Food Technician Relationship Specialty Start Date End Date Edgar Gibbs MD [address] [place] [address] PCP - General Family Medicine 07/03/20 documented as of this encounter
--- OUTSIDE RECORDS SUMMARY | 2023-06-02 11:46 | External Medical Summary ---
Author Name Unknown Address Unknown Organization [id number]:LABORATORY [facility] [place] - [facility] [address] [facility] [address] [facility] [address] Laboratory Report Ordering Provider Test Date Status CIARA SANTOS 02/01/2023 12:22:55 Final Observation Date Value Abnormality Reference (Units ) Status pH, Body Fluid 02/01/2023 12:22:55 7.75 (unit s) Final The reference interval(s) an d other method performance specifications may not be available for this body fluid. Comparison of this result with the concentration in the blood, serum, or plasma is recommended. The test result must be integrated into the clinical context for interpretation.

Please refer to test catalog ([email or web address]/body_[email or web address]) for additional interpretive information.

This test was developed and its performance characteristics determined by [facility]. It has not been cleared or approved by the US Food and Drug Administration. Performing Location LABORATORY [facility] [place] - [address] [facility] [address]
--- OUTSIDE RECORDS SUMMARY | 2023-06-02 11:46 | External Medical Summary ---
Author Name Unknown Address Unknown Organization K01:[place] [facility] [place] [facility] [place] [address] [facility] [address] [facility] [address] Laboratory Report Ordering Provider Test Date Status CIARA SANTOS 02/01/2023 12:22:55 Final Observation Date Value Abnormality Reference (Units ) Status Protein, Body Fluid 02/01/2023 12:22:55 2.9 (g/dL) Final The reference interval(s) an d other method performance specifications may not be available for this body fluid. Comparison of this result with the concentration in the blood, serum, or plasma is recommended. The test result must be integrated into the clinical context for interpretation.

Please refer to test catalog ([email or web address]_[email or web address]) for additional interpretive information.

This test was developed and its performance characteristics determined by [employer]. It has not been cleared or approved by the US Food and Drug Administration. Performing Location [place] [facility] [place] [address] [facility] [address]
--- OUTSIDE RECORDS SUMMARY | 2023-06-02 11:46 | External Medical Summary | Summary of Care ---
Author Name Unknown Organization [facility] Address [address] [place] [address] Phone [phone] Care Team Providers Care Cumulative Effects Analyst Name Role Phone Edgar Gibbs MD Primary Care P [facility] Reason for Visit * Precert (Within 10 days (routine)) - Authorized Specialty Diagnoses / Procedures Referred By Contac t Referred To Contact Radiology Diagnoses Pleural effusion, not elsewhere classified Procedures MT THORACENTESIS NEEDLE/CATH PLEURA W/IMAGING Sally Alvarez PA-C [address] [place] [address] Referral ID Status Reason Start Date Expiration Date V isits Requested Visits Authorized [id number] Authorized Precert 02/16/2023 11/11/2025 999 [id number] Encounter Details Date Type Department Care Team (Latest Contact Info) Description 02/17/2023 8:37 AM EST - 02/17/2023 10:41 AM EST Hospital Encounter Radiology Waiting Room [facility] 1st Floor [address] [place], [place] [id number] López Mcgill MD [address] [place] [address] Arrived Discharge Disposition: Home - Self Care Allergies Active Allergy Reactions Criticality Noted Date Comments Latex 07/19/2019 Pantoprazole Sodium Edema face/lips/tongue High 04/0 02/2014 documented as of this encounter (statuses as of 02/17/2023) Medications Medication Sig Dispensed Refills Start Date End Date Status Cholecalciferol 2000 units Capsule Take 1 Capsule by mouth in the morning. 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) ([facility]) take 2 pills 3 x daily 180 Tab 11 10/26/2018 Active Sodium Chloride Flush (NORMAL SALINE FLUSH) 0.9 % SOLN injection FLUSH ONCE DAILY WITH 10ml 300 mL 1 03/12/2019 Active Leuprolide Acetate (3 Month) 22.5 MG Subcutaneous Kit (EliTeranetics) Inject 22.5 mg under the skin. Every 3 months 0 11/18/2020 Active amLODIPine Besylate 5 MG Oral Tablet (Norvasc) TAKE 1 TABLET BY MOUTH ONCE DAILY IN THE MORNING 90 Tablet 2 02/23/2022 Active Incruse Ellipta 62.5 MCG/ACT Inhalation Aerosol Powder Breath Activated (umeclidinium Calvin)Indications:C hronic obstructive pulmonary disease, unspecified COPD type ([facility]) Inhale 1 Puff by mouth [...] Base) MCG/ACT Inhalation Aerosol SolutionIndications:C OPD exacerbation ([facility]) INHALE TWO PUFFS BY MOUTH EVERY 4 HOURS NEEDED FOR COUGH, SHORTNESS OF BREATH, OR WHEEZING 18 g 5 01/20/2023 Active LORazepam 0.5 MG Oral Tablet (Ativan)Indications:P anic attack as reaction to stress Take 1 Tablet by mouth every 8 hours as needed for Anxiety. 30 Tablet 0 02/10/2023 Active documented as of this encounter (statuses as of 02/17/2023) Active Problems Problem Noted Date Diagnosed Date [...] as of this encounter (statuses as of 02/17/2023) Resolved Problems Problem Noted Date Diagnosed Date [...] as of this encounter (statuses as of 02/17/2023) Immunizations Name Administration Dates Next Due COVID-19 mRNA, LNP-s, No Pre serve, 2-Dose Series (Teads) 01/19/2021,06/10/2020,05/20/2020 Pneumococcal Conjugate Vacci ne, 20-valent ([id number]) 03/16/2022 Pneumococcal Polysaccharide PPV23 (Pneumovax) 12/28/2017 Seasonal [...] Sign Reading Time Taken Comments Blood Pressure 110/48 02/17/2023 10:30 AM EST Pulse 56 02/17/2023 10:30 AM EST Temperature 36 C (96.8 F) 02/17/2023 9:45 AM EST Respiratory Rate 18 02/17/2023 10:30 AM EST Oxygen Saturation 93% 02/17/2023 10:30 AM EST Inhaled Oxygen Concentration - - [...] Instr - AVS* Sally Alvarez PA-C - 02/17/2023 9:07 AM EST Discharge Date: 02/17/2023 Provider: Sally Alvarez PA-C If you are experiencing any problems related to your procedure, please contact Interventional Radiology at [phone] during normal business hours: Monday - Monday, 8:00 am - 4:00 pm. If a problem occurs outside of normal business hours, please call the hospital sticker machine operator at [phone] and ask for the Interventional Radiologist rock contractor. Contact scheduling for Interventional Radiology at [phone] during normal business hours: Monday - Monday, [...] homicidal, please call the crisis hotline at [phone] ([phone]). Driving: You may resume driving . Diet: You may resume your current diet as tolerated. Return to work or school: You may return to school or work 4-6 hours after the procedure, unless otherwise instructed by the physician. documented in this encounter Nursing Notes * Mel Baltazar RN - 02/17/2023 10:36 AM EST DISCHARGE - POST INTERVENTIONAL RADIOLOGY PROCEDURE Patient meets discharge criteria for Interventional Radiology. Vital signs stable. Dressing clean, dry, and intact. IV site removed. Patient awake and oriented to pre procedure baseline. Discharge instructions given; patient denies any further questions at this time. Patient tolerating liquids/snacks without nausea/vomiting. All belongings sent with patient. Discharged to home. Vital Signs: BP: 110/48 (02/17/23 1030) Temp: 36 C (96.8 F) (02/17/[address]) Pulse: 56 (02/17/23 1030) Resp: 18 (02/17/23 1030) SpO2: 93 % (02/17/23 1030) Neurological: Sharon Coma Scale Eyes Open: Spontaneous (02/17/239[address]) Best Verbal Response: Verbally appropriate for age (02/17/239[address]) Best Motor Response: Obeys commands appropriate for age (02/17/23944) Coma Score: 15 (02/17/23944) Activity: Four Extremities LOC: Fully Awake or Pre-Anesthetic Level of Consciousness BP: Less than (+/-) 20% Resp: Deep Breathe and Cough Freely (02/17 945) Respiratory: Pain Assessment Flowsheet Row Most Recent Value Pain Assessment Scale [facility] Scale 0-10 Pain Score 0 (no pain) * Yumiko Heredia RN - 02/17/2023 9:16 AM EST roller mechanic note Name: Matthew Rowe Date: 02/17/2023 Time: 9:16 AM Procedure: Right Thoracentesis Patient ID band checked using two identifiers. Patient sitting on stretcher leaning on procedure table with comfort and safety measures intact. Hemodynamic monitoring placed and initiated. Patient denies any current complaints at current time. RT staff prepares and preps patient for procedure. 9:17 AM Patient prepped and ready. 2 mg of Versed given per order of physician. Order was verbalized and verified with Sally Alvarez PA-C prior to administration. Procedure by physician. 9:19 AM Timeout performed by Sally Alvarez PA-C. 9:22 AM Procedure started by Sally Alvarez PA-C, and scrubbed RT Maria C. Ultrasound utilized for anatomical analysis of patient and access needle guidance. Numbing right posterior chest site with 1% buffered lidocaine. 9:27 AM Access obtained. Placed to vacuum container. Draining clear, yellow fluid. Images obtained. 9:37 AM Thoracentesis complete. Final images obtained. Access removed. 9:38 AM Area cleaned. Xeroform, gauze, and tegaderm dressing applied. Total Output: 1350 mL Patient tolerated procedure well without complications. [...] medications given 1% buffered lidocaine: 10 mL Versed: 2mg Please see doctor's operative note for additional details. documented in this encounter Miscellaneous Notes * Postprocedure Note - Sally Alvarez PA-C - 02/17/2023 9:00 AM EST PROCEDURE NOTE - Interventional Radiology [facility] [address] Name: Matthew Rowe Location: RADIOLOGY WAITING ROOM/IR Date: 02/17/2023 Time: 9:50AM PROCEDURE: US-guided thoracentesis FRUIT CUTTER: Sally Alvarze PA-C and Dr. Sarah Arriaza DR Resident ASSISTANTS: Paris GRUBER ANESTHESIA: local IV Versed COMPLICATIONS: none SPECIMEN: none ESTIMATED BLOOD LOSS: negligible FINDINGS: Successful US-guided R sided thoracentesis. Please see PACS imaging for details. documented in this encounter Plan of Treatment Upcoming Encounters Date Type Department Care Team (Late st Contact Info) Description 03/03/2023 8:15 AM EST [facility] [address] [facility] [place] [address] 04/12/2023 3:30 PM EST [facility] [address] [facility] [place] [address] Travon Canales MD [address] [facility] [address] [place] [address] 04/19/2023 11:00 AM EST Appointment Interventional Radiology [facility], [facility] 1st Floor [address] [facility] [place] [address] 05/17/2023 1:00 PM EDT Office Visit Pulmonary Medicine, [facility] [address] [place] [address] Tino Stapleton MD [address] [place] [address] 06/07/2023 11:50 AM EDT Office Visit [facility] [address] [place] [address] Edgar Gibbs MD [address] [place] [address] Health Maintenance Due Date Last Done Comments Alpha-1 Antitrypsin 05[birth year]18/1963 Hepatitis C Screening 05/18/1963 *COPD SEVERITY VERIFIED BY PFT 03/05/2022 COVID-19 Vaccine ( season) 2022 01/19/2021, 06/10/2020, 05/20/2020 Influenza Vaccine (FLU shot) (#1) 2022 12/04/2021, 12/22/2020, 12/22/2020, Additional history exists DISCUSS TOBACCO CESSATION (REFER TO SMARTSET #3291) 06/04/2023 06/03/2022 Depression Screening 06/04/2023 06/03/2022 O2 ASSESSMENT COMPLETED IN PAST YEAR FOR COPD 02/18/2024 02/17/2023 DTaP,Tdap,and Td Vaccines (2 - Td or [...] Associated Diagnosis Comments IR CHEST THORACENTESIS Routine 9:40 AM EST Pleural effusion, right documented in this encounter Results * IR CHEST THORACENTESIS (02/17/2023 9:40 AM EST) Anatomical Region Laterality Modality Any Computed Tomogra phy 02/17/2023 9:58 AM EST Impressions 02/17/2023 11:16 AM EST IMPRESSION: Successful ultrasound-guided right thoracentesis. PLAN: Follow-up as needed for repeat thoracentesis for symptom management. I have personally reviewed this examination and agree with the resident/fellow physician's interpretation. Narrative 02/17/2023 11:16 AM EST PROCEDURE: Right thoracentesis INDICATION: 77 year old male with recurrent pleural effusion and worsening SOB in need of thoracentesis. OPERATING PROVIDER: Sally Alvarez PA-C SUPERVISING PHYSICIAN: Dr. Mcgill SCRUBBED RESIDENT (OPERATING PHYSICIAN): Sarah Gonzales MD SUPPORTING PROVIDER (SALES AGENT FIRE INSURANCE): RT Nader CONSENT: After a detailed discussion of the procedure, risks, benefits and alternative treatment options, informed consent was obtained. TIME OUT: A time out procedure was performed. The patient's identification was verified. Informed consent with agreement of procedure, site and position was obtained. All necessary equipment was available prior to procedure. CONTRAST: No contrast was administered. COMPLICATIONS: None. ANESTHESIA: Local lidocaine. Versed IV. SEDATION TIME: N/A MEDICATIONS: See MAR. PROCEDURE [...] acquired and digitally archived. A total of 1350 milliliters of yellow fluid was collected in empty bottles and discarded.. The catheter was then removed and an occlusive dressing was applied. The procedure was performed under the personal supervision of Dr. Mcgill who was immediately available for the entire procedure. FINDINGS: Right pleural effusion was noted on ultrasound. Post thoracentesis demonstrates minimal residual fluid. Procedure Note López Mcgill MD - 02/17/2023 PROCEDURE: Right thoracentesis INDICATION: 77 year old male with recurrent pleural effusion and worseningSOB in need of thoracentesis. OPERATING PROVIDER: Sally Alvarez PA-C SUPERVISING PHYSICIAN: Dr. Mcgill SCRUBBED RESIDENT (OPERATING PHYSICIAN): Sarah Gonzales MD SUPPORTING PROVIDER (SALES AGENT FIRE INSURANCE): RT Nader CONSENT: After a detailed discussion of the procedure, risks, benefits andalternative treatment options, informed consent was obtained. TIME OUT: A time out procedure was performed. The patient's identificationwas verified. Informed consent with agreement of procedure, site andposition was obtained. All necessary equipment was available prior toprocedure. CONTRAST: No contrast was administered. COMPLICATIONS: None. ANESTHESIA: Local lidocaine. Versed IV. SEDATION TIME: N/A MEDICATIONS: See MAR. PROCEDURE DESCRIPTION: After survey ultrasound exam of the right posteriorthorax, the site was prepped and draped in the usual sterile fashion.Using real-time ultrasound guidance, the pleural cavity was accessed. Theaccess was obtained in an intercostal fashion, superior to the rib.Ultrasound images demonstrating the needle tip within the pleural cavitywere acquired and digitally archived. A total of 1350 milliliters ofyellow fluid was collected in empty bottles and discarded.. The catheter was then removed and an occlusive dressing was applied. The procedure was performed under the personal supervision of Dr. Mcgillwho was immediately available for the entire procedure. FINDINGS: Right pleural effusion was noted on ultrasound. Post thoracentesisdemonstrates minimal residual fluid. IMPRESSION IMPRESSION: Successful ultrasound-guided right thoracentesis. PLAN: Follow-up as needed for repeat thoracentesis for symptommanagement. I have personally reviewed this examination and agree with the resident/fellow physician's interpretation. Sally Alvarez PA-C RAD SPECIAL PROCEDUR ES documented in this encounter Visit Diagnoses Diagnosis Pleural effusion, right Unspecified pleural effusion documented in this encounter Administered Medications Inactive Administered Medications - up to 3 most recent administrations Medication Order MAR Action Action Date Dose Rate Site buffered lidocaine 1 % inj Intradermal, ONCE PRN INTRA PROCEDURE, Starting on Mon02/17/23 at 0927, Until Mon02/17/23 at 09, Intra-Op Given 02/17/2023 9:27 AM EST 10 mL midazolam (Versed) 2 MG/2ML inj ONCE PRN INTRA PROCEDURE, Starting on Mon02/17/23 at 0917, Until Mon02/17/23 at 09, Intra-Op Given 02/17/2023 9:17 AM EST 2 mg documented in this encounter Active and Recently Administered Medications Times are shown in EST. PRN Medication Order 02/15/2023 02/16/2023 02/17/2023 buffered lidocaine 1 % inj (COMPLETED) Intradermal, ONCE PRN INTRA PROCEDURE, Starting on Mon02/17/23 at 09, Until Mon02/17/23 at 926, Intra-Op 926 (Given - Provid er: Sally Alvarez PA-C - Comment: right posterior chest) midazolam (Versed) 2 MG/2ML inj (COMPLETED) ONCE PRN INTRA PROCEDURE, Starting on Mon02/17/23 at 0917, Until Mon02/17/23 at 09, Intra-Op 916 (Given - Provid er: Yumiko Heredia RN) documented in this encounter Advance Directives Latest Code Status on File Code Status Date Activated Date Inactivated Comments Full Code 04/15/2015 4:40 PM 04/16/2015 5:24 PM This order reflects the patients wishes and were consensually agreed upon. Care Teams Cumulative Effects Analyst Relationship Specialty Start Date End Date Edgar Gibbs MD [address] [place], [place] [address] [address] PCP - General Family Medicine 07/03/20 documented as of this encounter
--- OUTSIDE RECORDS SUMMARY | 2023-06-02 11:46 | External Medical Summary ---
Author Name Unknown Address Unknown Organization K01:LABORATORY [facility] - [address] [place] [address] Laboratory Report Ordering Provider Test Date Status CIARA SANTOS 02/01/2023 13:55:19 Final Observation Date Value Abnormality Reference (Units ) Status LDH 02/01/2023 13:55:19 157 <=250 (U/L ) Final Performing Location LAB[facility]ATORY [facility] - [address] [place] [address]
--- OUTSIDE RECORDS SUMMARY | 2023-06-02 11:46 | External Medical Summary | Summary of Care ---
Author Name Unknown Organization [facility] Address [address] [facility] [place] [address] Phone [phone] Care Team Providers Care Emt/Dispatcher Name Role Phone Edgar Gibbs MD Primary Care P rovider Reason for Referral * Precert (Within 10 days (routine)) - Authorized Specialty Diagnoses / Procedures Referred By Contac t Referred To Contact Cardiac Studies Diagnoses Moderate aortic stenosis Procedures ECHO, COMPLETE (2D), TRANS-THORACIC Edgar Gibbs MD [address] [place] [id number] Referral ID Status Reason Start Date Expiration Date V isits Requested Visits Authorized [id number] Authorized Precert 03/06/2024 999 999 Reason for Visit * Reason Onset Date Comments Test Results 03/06/2023 Encounter Details Date Type Department Care Team ([facility] Contact Info) Description 03/06/2023 Telephone Family Practice [address] [phone] Edgar Gibbs MD [address] [place] [phone] Test Results Allergies Active Allergy Reactions Criticality Noted Date Comments Latex 07/19/2019 Pantoprazole Sodium Edema face/lips/tongue High 04/0 02/2014 documented as of this encounter (statuses as of 03/07/2023) Medications Medication Sig Dispensed Refills Start Date End Date Status Cholecalciferol 2000 units Capsule Take 1 Capsule by mouth in the morning. 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 Every 3 months 0 11/18/2020 Active amLODIPine Besylate 5 MG Oral Tablet (Norvasc) TAKE 1 TABLET BY MOUTH ONCE DAILY IN THE MORNING 90 Tablet 2 02/23/2022 Active Incruse Ellipta 62.5 MCG/ACT Inhalation Aerosol Powder Breath Activated (umeclidinium [place])Indications:C hronic obstructive pulmonary disease, unspecified COPD type ([facility]) Inhale 1 Puff by mouth in [...] Base) MCG/ACT Inhalation Aerosol SolutionIndications:C OPD exacerbation ([facility]) INHALE TWO PUFFS BY MOUTH EVERY 4 HOURS NEEDED FOR COUGH, SHORTNESS OF BREATH, OR WHEEZING 18 g 5 01/20/2023 Active LORazepam 0.5 MG Oral Tablet (Ativan)Indications:P anic attack as reaction to stress Take 1 Tablet by mouth every 8 hours as needed for Anxiety. 30 Tablet 0 02/10/2023 Active documented as of this encounter (statuses as of 03/07/2023) Active Problems Problem Noted Date Diagnosed Date [...] as of this encounter (statuses as of 03/07/2023) Resolved Problems Problem Noted Date Diagnosed Date [...] as of this encounter (statuses as of 03/07/2023) Immunizations Name Administration Dates Next Due COVID-19 mRNA, LNP-s, No Pre serve, 2-Dose Series (Pfizer) 01/19/2021,06/10/2020,05/20/2020 Pneumococcal Conjugate Vacci ne, 20-valent ([id number]) 03/16/2022 Pneumococcal Polysaccharide PPV23 (Pneumovax) 12/28/2017 Seasonal [...] encounter Miscellaneous Notes * Telephone Encounter - Felisa Delatorre OSA - 03/07/2023 10:09 AM EST Spoke with patient and scheduled * Telephone Encounter - Tia Mendieta CCMA - 03/07/2023 10:00 AM EST Called and spoke with patient and informed him his orders were in his chart. Asking for assistance in scheduling his Echocardiogram 1 year form now so it doesn't get missed. No other concerns at thistime. * Telephone Encounter - Edgar Gibbs MD - 03/06/2023 7:12 PM EST Echocardiogram ordered and chart updated. * Telephone Encounter - Ghada Guadalupe LPN - 03/06/2023 9:04 AM EST Patients is aware and verbalizes understanding. would like order placed for Echo next year so that it is not missed Please place order * Telephone Encounter - Ghada Guadalupe LPN - 03/06/2023 9:01 AM EST ----- Message from Edgar Grey MD sent at 03/06/2023 8:43 AM EST ----- Echocardiogram showed no evidence of heart failure. He does have evidence of moderate aortic stenosis, aortic valve is narrowed. We should repeat test in 1 year. documented in this encounter Plan of Treatment Upcoming Encounters Date Type Department Care Team (Late st Contact Info) Description 03/09/2023 10:00 AM EST Appointment Interventional [place] [facility] [place] [address] [place] [address] 04/12/2023 3:30 PM EST Procedure Only Urology, [facility] [address] [facility] [place] [address] Travon Canales MD [address] [place], [place] [address] [address] 04/19/2023 11:00 AM EST Appointment Interventional [place] [facility] [facility] [address] [facility] [address] [place] [address] 05/17/2023 1:00 PM EDT Office Visit Pulmonary Medicine, [facility] [address] [facility] [place] [address] Tino Stapleton MD [address] [facility] [place] [address] 06/07/2023 11:50 AM EDT Office Visit [address] [phone] Edgar Gibbs MD [address] [place] [address] 02/26/2024 9:30 AM EST Cardiac Studies Cardiac Studies, [facility] [address] [place] [address] Scheduled Orders Name Type Priority Associated Diagnoses Orde r Schedule ECHO, COMPLETE (2D), TRANS-THORACIC Echocardiology Routine Moderate aortic stenosis Expected: 03/06/2024 (Approximate), Expires: 04/06/2025 Health Maintenance Due Date Last Done Comments [...] as of this encounter Visit Diagnoses Diagnosis Moderate aortic stenosis- Primary Aortic valve disorders documented in this encounter Advance Directives Latest Code Status on File Code Status Date Activated Date Inactivated Comments Full Code 04/15/2015 4:40 PM 04/16/2015 5:24 PM This order reflects the patients wishes and were consensually agreed upon. Care Teams Emt/Dispatcher Relationship Specialty Start Date End Date Edgar Gibbs MD [address] [place] [phone] PCP - General Family Medicine 07/03/20 documented as of this encounter
--- OUTSIDE RECORDS SUMMARY | 2023-06-02 11:46 | External Medical Summary | Summary of Care ---
Author Name Unknown Organization [facility] Address [address] [facility] [place] [address] Phone [phone] Care Team Providers Care Feeder Operator Name Role Phone Edgar Clements MD Primary Care P rovider Reason for Visit * Reason Onset Date Comments Medication Refill 03/14/2023 Encounter Details Date Type Department Care Team ([facility] st Contact Info) Description 03/14/2023 Refill Family [facility] [address] [place] [phone] Edgar Clements MD [address] [place] [phone] Panic attack as reaction to stress Allergies Active Allergy Reactions Criticality Noted Date Comments Latex 07/19/2019 Pantoprazole Sodium Edema face/lips/tongue High 04/0 02/2014 documented as of this encounter (statuses as of 03/15/2023) Medications Medication Sig Dispensed Refills Start Date [...] MCG/ACT Inhalation Aerosol Powder Breath Activated (umeclidinium [place])Indication s:Chronic obstructive pulmonary disease, unspecified COPD type [...] for Anxiety. 30 Tablet 0 03/15/2023 Active LORazepam 0.5 MG Oral Tablet (Ativan)Indication s:Panic attack as reaction to stress Take 1 Tablet by mouth every 8 hours as needed for Anxiety. 30 Tablet 0 02/10/2023 03/14/2023 Discontinue d(Refill) documented as of this encounter (statuses as of 03/15/2023) Active Problems Problem Noted Date Diagnosed Date [...] as of this encounter (statuses as of 03/15/2023) Resolved Problems Problem Noted Date Diagnosed Date [...] as of this encounter (statuses as of 03/15/2023) Immunizations Name Administration Dates Next Due COVID-19 mRNA, LNP-s, No Pre serve, 2-Dose Series (Pfizer) 01/19/2021,06/10/2020,05/20/2020 Pneumococcal Conjugate Vacci ne, 20-valent ([id number]) 03/16/2022 Pneumococcal Polysaccharide PPV23 (Pneumovax) 12/28/2017 Seasonal [...] Miscellaneous Notes * Telephone Encounter - Edgar Clements MD - 03/15/2023 3:09 PM ESTSigned Prescriptions: Disp Refills LORazepam 0.5 MG Oral Tablet (Ativan) 30 Tab*0 Sig: Take 1 Tablet by mouth every 8 hours as needed for Anxiety. Authorizing Provider: EDGAR CLEMENTS * Telephone Encounter - Kassidy Stuart formerly [facility] - 03/15/2023 12:42 PM ESTPending Prescriptions: Disp Refills LORazepam 0.5 MG Oral Tablet (Ativan) 30 Tab*0 Sig: Take 1 Tablet by mouth every 8 hours as needed for Anxiety. * Telephone Encounter - Kassidy Stuart formerly [facility] - 03/15/2023 12:41 PM EST I have reviewed the patients controlled substance dispensing history in the Prescription Drug Monitoring Program in compliance with the [facility] regulations before prescribing a controlled substance. PDMP checked on 03/15/2023. Pending Prescriptions: Disp Refills LORazepam 0.5 MG Oral Tablet (Ativan) 30 Tab*0 Sig: Take 1 Tablet by mouth every 8 hours as needed for Anxiety. Last Visit: 02/10/2023 (in office), Visit date not found (telemedicine) Next Visit: 06/07/2023 Date medication was last filled: 02/10 Date medication is due for refill: 02/19 Pharmacy: [facility] [address] Is this request for a controlled substance? Yes and Urine Drug Screen Not completed Toxicology results: No results found for this or any previous visit. Please approve if appropriate. Thank you, Kassidy Stuart, PharmD Clinical Pharmacist [facility] ([facility]) 03/15/23 12:41 PM [phone] * Telephone Encounter - Nabila Connelly, bootmaker - 03/14/2023 9:51 AM EST Did you pend patient's preferred pharmacy and medication before forwarding?yes Pharmacy: [facility] [address] Pending Prescriptions: Disp Refills LORazepam 0.5 MG Oral Tablet (Ativan) 30 Tab*0 Sig: Take 1 Tablet by mouth every 8 hours as needed for Anxiety. Last Visit: 02/10/2023 (in office), Visit date not found (telemedicine) Next Visit: 06/07/2023 If no future appointments scheduled, and last appointment is greater than a year ago, please schedule patient for a follow-up appointment Last date the medication was ordered: 02/10/2023 Is this request for a controlled substance?Take 1 Tablet by mouth every 8 hours as needed for Anxiety Urine Drug Screen:No results found for this [...] 3:30 PM EST Procedure Only Urology, [facility] [address] [facility] [place] [address] Travon Canales MD [address] [facility] [address] [place] [address] 04/19/2023 11:00 AM EST Appointment Interventional Radiology [facility], [facility] 1st Floor [address] [facility] [place] [phone] 05/17/2023 1:00 PM EDT Office Visit Pulmonary Medicine, [facility] [address] [facility] [place] [address] Tino Stapleton MD [address] [facility] [place] [address] 06/07/2023 11:50 AM EDT Office Visit [facility] [address] [place] [phone] Edgar Clements MD [address] [place] [address] 02/26/2024 9:30 AM EST Cardiac Studies Cardiac Studies, [facility] [address] [facility] [place] [address] Health Maintenance Due Date Last Done Comments [...] Diagnoses Diagnosis Panic attack as reaction to stress Predominant disturbance of emotions documented in this encounter Advance Directives Latest Code Status on File Code Status Date Activated Date Inactivated Comments Full Code 04/15/2015 4:40 PM 04/16/2015 5:24 PM This order reflects the patients wishes and were consensually agreed upon. Care Teams Feeder Operator Relationship Specialty Start Date End Date Edgar Clements MD [address] [place] [address] PCP - General Family Medicine 07/03/20 documented as of this encounter
--- OUTSIDE RECORDS SUMMARY | 2023-06-02 11:46 | External Medical Summary | Summary of Care ---
Author Name Unknown Organization [facility] Address [address] [place] [address] Phone [phone] Care Team Providers Care Head Custodian Name Role Phone Edgar Gibbs MD Primary [facility] Reason for Referral * Precert (Within 10 days (routine)) - Authorized Specialty Diagnoses / Procedures Referred By Contac t Referred To Contact Radiology Diagnoses Pleural effusion, right Procedures IR CHEST THORACENTESIS Edgar Gibbs MD [address] [place], [place] [phone] Referral ID Status Reason Start Date Expiration Date V isits Requested Visits Authorized [id number] Authorized 02/01/2023 999 999 Reason for Visit * Precert (Within 10 days (routine)) - Authorized Specialty Diagnoses / Procedures Referred By Contac t Referred To Contact Radiology Diagnoses Pleural effusion, right Procedures IR CHEST THORACENTESIS Edgar Gibbs MD [address] [place] [address] Referral ID Status Reason Start Date Expiration Date V isits Requested Visits Authorized [id number] Authorized 02/01/2023 999 999 Encounter Details Date Type Department Care Team (Latest Contact Info) Description 02/01/2023 10:55 AM EST - 02/01/2023 1:38 PM EST Hospital Encounter Radiology Waiting Room [facility], [place] [address]st [address], [place] [phone] Jey Montenegro MD [address] [place] [address] Arrived Discharge Disposition: Home - Self Care Allergies Active Allergy Reactions Criticality Noted Date Comments Latex 07/19/2019 Pantoprazole Sodium Edema face/lips/tongue High 04/0 02/2014 documented as of this encounter (statuses as of 02/02/2023) Medications Medication Sig Dispensed Refills Start Date [...] Acetate (3 Month) 22.5 MG Subcutaneous Kit ([employer]) Inject 22.5 mg under the skin. Every 3 months 0 11/18/2020 Active amLODIPine Besylate 5 MG Oral Tablet (Norvasc) TAKE 1 TABLET BY MOUTH ONCE DAILY IN THE MORNING 90 Tablet 2 02/23/2022 Active Incruse Ellipta 62.5 MCG/ACT Inhalation Aerosol Powder Breath Activated (umeclidinium [place])Indications :Chronic obstructive pulmonary disease, unspecified COPD type ([facility]) Inhale 1 Puff by mouth in [...] as of this encounter (statuses as of 02/02/2023) Active Problems Problem Noted Date Diagnosed Date [...] as of this encounter (statuses as of 02/02/2023) Resolved Problems Problem Noted Date Diagnosed Date [...] as of this encounter (statuses as of 02/02/2023) Immunizations Name Administration Dates Next Due COVID-19 mRNA, LNP-s, No Pre serve, 2-Dose Series ([employer]) 01/19/2021,06/10/2020,05/20/2020 Pneumococcal Conjugate Vacci ne, 20-valent ([id number]) 03/16/2022 Pneumococcal Polysaccharide PPV23 (Pneumovax) 12/28/2017 SEASONAL [...] Sign Reading Time Taken Comments Blood Pressure 135/61 02/01/2023 1:20 PM EST Pulse 53 02/01/2023 1:20 PM EST Temperature 36.4 C (97.5 F) 02/01/2023 1:20 PM ES T Respiratory Rate 22 02/01/2023 1:20 PM EST Oxygen Saturation 93% 02/01/2023 1:20 PM EST Inhaled Oxygen Concentration - - [...] Instr - AVS* Sally Alvarez PA-C - 02/01/2023 11:46 AM EST Discharge Date: 02/01/2023 Provider: Sally Alvarez PA-C If you are experiencing any problems related to your procedure, please contact Interventional Radiology at [phone] during normal business hours: Monday - Monday, 8:00 am - 4:00 pm. If a problem occurs outside of normal business hours, please call the hospital loading machine operator helper at [phone] and ask for the Interventional Radiologist lead solutions architect. Contact scheduling for Interventional Radiology at [phone] during normal business hours: Monday - Monday, [...] homicidal, please call the crisis hotline at [phone] ([phone]). Driving: You may resume driving today . Diet: You may resume your current diet as tolerated. Return to work or school: You may return to school or work 2 hours after the procedure, unless otherwise instructed by the physician. documented in this encounter Nursing Notes * Demi Saunders RN - 02/01/2023 1:27 PM EST DISCHARGE - POST INTERVENTIONAL RADIOLOGY PROCEDURE Patient meets discharge criteria for Interventional Radiology. Vital signs stable. Dressing clean, dry, and intact. Patient awake and oriented to pre procedure baseline. Discharge instructions given,no questions at this time. Patient tolerating liquids, with no nausea/vomiting. All belongings sentwith patient. Discharged to home. Vital Signs: BP: 135/61 (02/01/23 1320) Temp: 36.4 C (97.5 F) (02/01/23 1320) Pulse: 53 (02/01/23 1320) Resp: 22 (02/01/23 1320) SpO2: 93 % (02/01/23 1320) Neurological: Sharon Coma Scale Eyes Open: Spontaneous (02/01/23 1320) Best Verbal Response: Verbally appropriate for age (02/01/23 1320) Best Motor Response: Obeys commands appropriate for age (02/01/23 1320) Coma Score: 15 (02/01/23 1320) Activity: Four Extremities LOC: Fully Awake or Pre-Anesthetic Level of Consciousness BP: Less than (+/-) 20% Resp: Deep Breathe and Cough Freely (02/01 1240) Respiratory: Pain Assessment Flowsheet Row Most Recent Value Pain Assessment Scale [facility] Scale 0-10 Pain Score 0 (no pain) * Yinka Luciano RN - 02/01/2023 12:00 PM EST shipping and receiving clerk note Name: Matthew Rowe Date: 02/01/2023 Time: 12:04 PM Procedure: Thoracentesis Patient ID band checked using two identifiers. Patient on stretcher, sitting position, with comfortmeasures intact. Hemodynamic monitoring placed and initiated. Patient denies any current complaintsat current time. RT staff prepares and preps for procedure. Procedure by physician. 12:16 PM Timeout performed by Sally Alvarez PA-C 12:17 PM Procedure started by Sally Alvarez PA-C, and scrubbed RT Kait Ramos. Ultrasound utilized for anatomical analysis of patient and access needle guidance. 1% buffered lidocaine given by clinician at right site. 12:19 PM Access obtained, attached to vacuum container. Images obtained. 12:28 PM Access removed and manual pressure to site. Procedure ends. 12:29 PM Hemostasis obtained. Area cleaned. Xeroform, Gauze and Tegaderm dressing applied. 1450 mL pleural fluid removed. Description: Light Ginny Specimens taken via pneumatic tube system and walking specimen directly to lab. Patient tolerated procedure well without complications. All [...] procedure. Total medications given 1% buffered lidocaine: 3 mL Please see doctor's operative note for additional details. documented in this encounter Miscellaneous Notes * Postprocedure Note - Sally Alvarez PA-C - 02/01/2023 11:30 AM EST PROCEDURE NOTE - Interventional Radiology [address] [address] Name: Matthew Rowe Location: RADIOLOGY WAITING ROOM/IR Date: 02/01/2023 Time: 12:24PM PROCEDURE: US-guided thoracentesis SWEAT BOX ATTENDANT: Sally Alvarez PA-C ASSISTANTS: Derian Ramos RT ANESTHESIA: local COMPLICATIONS: none SPECIMEN: fluid to laboratory ESTIMATED BLOOD LOSS: negligible FINDINGS: Successful US-guided R sided thoracentesis. Please see PACS imaging for details. documented in this encounter Plan of Treatment Upcoming Encounters Date Type Department Care Team (Late st Contact Info) Description 02/10/2023 11:30 AM EST Office Visit [address] [phone] Edgar Gibbs MD [address] [place] [address] 03/03/2023 8:15 AM EST Cardiac Studies [address] [place] [address] 04/12/2023 3:30 PM EST Procedure Only Urology, [address] [place] [address] Travon Canales MD [address] [facility] [address] [place] [address] 04/19/2023 11:00 AM EST Appointment Interventional Radiology [facility], [facility] 1st Floor [address] [place] [phone] 05/17/2023 1:00 PM EDT Office Visit Pulmonary Medicine, [address] [place] [address] T[facility] Stapleton [facility] [address] [facility] [address] 06/07/2023 11:50 AM EDT Office Visit [address] [phone] Edgar Gibbs MD [address] [place] [address] Pending Results Name Type Priority Associated Diagnoses Date /Time CULTURE, BODY FLUID, AEROBIC AND ANAEROBIC Lab Routine Pleural effusion, right 02/01/2023 12:22 PM EST CYTOLOGY Pathology Routine Pleural effusion, right 02/01/2023 12:22 PM EST Scheduled Orders Name Type Priority Associated Diagnoses Order Schedule IR CHEST THORACENTESIS Medical Imaging Routine Pleural effusion, right 999 Occurrences starting 02/01/2023 until 03/04/2024 BODY FLUID INTERPRETATION Lab Routine Pleural effusion, right 02/01/2023 until discontinued, 1 completed Health Maintenance Due Date Last Done Comments Alpha-1 Antitrypsin 05[birth year]18/1963 Hepatitis C Screening 05/18/1963 *COPD SEVERITY VERIFIED BY PFT 03/05/2022 COVID-19 Vaccine ( season) 2022 01/19/2021, 06/10/2020, 05/20/2020 Influenza Vaccine (FLU shot) (#1) 2022 12/04/2021, 12/22/2020, 12/22/2020, Additional history exists DISCUSS TOBACCO CESSATION (REFER TO SMARTSET #3787) 06/04/2023 06/03/2022 Depression Screening 06/04/2023 06/03/2022 O2 [...] Procedure Name Priority Date/Time Associated Diagnosis Comments PROTEIN Routine 02/01/2023 1:55 PM EST Pleural effusion, right LD Routine 02/01/2023 1:55 PM EST Pleural effusion, right IR CHEST THORACENTESIS Routine 12:33 PM EST Pleural effusion, right BODY FLUID INTERPRETATION Routine 02/01/2023 12:22 PM EST Pleural effusion, right MANUAL DIFFERENTIAL, BODY FLUID Routine 02/01/2023 12:22 PM EST Pleural effusion, right CULTURE, BODY FLUID, AEROBIC AND ANAEROBIC Routine 02/01/2023 12:22 PM EST Pleural effusion, right PH,BODYFLUID Routine 02/01/2023 12:2 2 PM EST Pleural effusion, right PROTEIN, BODY FLUID Routine 02/01/2023 1 2:22 PM EST Pleural effusion, right LD, BODY FLUID Routine 02/01/2023 12:22 PM EST Pleural effusion, right CELL COUNT WITH DIFFERENTIAL, BODY FLUID Routine 02/01/2023 12:22 PM EST Pleural effusion, right CELL COUNT, BODY FLUID Routine 12:22 PM EST Pleural effusion, right documented in this encounter Results * PROTEIN (02/01/2023 1:55 PM EST) Protein 6.3 6.0 - 8.3 g/dL 02/01/2023 2:38 PM EST LABORATORY [facility] Blood Venous blood specimen / Unknown Venipuncture / Unknown 02/01/2023 1:55 PM EST 02/01/2023 2:09 PM EST Edgar Grey MD LAB BLO OD ORDERABLES Performing Organization Address City/State/[facility] Co de Phone Number LABORATORY [facility] [address] [place] [address] * LD (02/01/2023 1:55 PM EST) Pathologist [facility] LD 157 <=250 U/L 02/01/2023 2:3 8 PM EST LABORATORY [facility] Blood Venous blood specimen / Unknown Venipuncture / Unknown 02/01/2023 1:55 PM EST 02/01/2023 2:09 PM EST Edgar Grey MD LAB BLO OD ORDERABLES LABORATORY [facility] [address] [place] [address] * IR CHEST THORACENTESIS (02/01/2023 12:33 PM EST) Anatomical Region Laterality Modality Any X-Ray Angiograph y 02/01/2023 2:25 PM EST Impressions 02/01/2023 5:19 PM EST IMPRESSION: Successful ultrasound-guided right thoracentesis. PLAN: Fluid sent to lab for analysis. Final results pending. Follow-up as needed for repeat thoracentesis for symptom management. Narrative 02/01/2023 5:19 PM EST PROCEDURE: Right thoracentesis INDICATION: 77 year old male with evidence of pleural effusion on imaging and worsening SOB in need of diagnostic and therapeutic thoracentesis. OPERATING PROVIDER: Sally Alvarez PA-C SUPERVISING PHYSICIAN: Dr. Jey Montenegro SCRUBBED RESIDENT (OPERATING PHYSICIAN): N/A SUPPORTING PROVIDER (HOT TOP LINER): RT Yazmin CONSENT: After a detailed discussion of the [...] acquired and digitally archived. A total of 1450 milliliters of light ginny fluid was collected in empty bottles and sent to the lab for analysis.. The catheter was then removed and an occlusive dressing was applied. The procedure was performed under the personal supervision of Dr. Montenegro who was immediately available for the entire procedure. FINDINGS: Right pleural effusion was noted on ultrasound. Post thoracentesis demonstrates minimal residual fluid. Procedure Note Jey Montenegro MD - 02/01/2023 PROCEDURE: Right thoracentesis INDICATION: 77 year old male with evidence of pleural effusion on imagingand worsening SOB in need of diagnostic and therapeutic thoracentesis. OPERATING PROVIDER: Sally Alvarez PA-C SUPERVISING PHYSICIAN: Dr. Jey Montenegro SCRUBBED RESIDENT (OPERATING PHYSICIAN): N/A SUPPORTING PROVIDER (HOT TOP LINER): RT Yazmin CONSENT: After a detailed discussion of the [...] acquired and digitally archived. A total of 1450 milliliters of lightamber fluid was collected in empty bottles and sent to the lab foranalysis.. The catheter was then removed and an occlusive dressing was applied. The procedure was performed under the personal supervision of who was immediately available for the entire procedure. FINDINGS: Right pleural effusion was noted on ultrasound. Post thoracentesisdemonstrates minimal residual fluid. IMPRESSION IMPRESSION: Successful ultrasound-guided right thoracentesis. PLAN: Fluid sent to lab for analysis. Final results pending. Follow-up asneeded for repeat thoracentesis for symptom management. Edgar Grey MD RAD SPE CIAL PROCEDURES * BODY FLUID INTERPRETATION (02/01/2023 12:22 PM EST) Body Fluid Interpretation Right pleural fluid: - Occasional atypical cells, favor reactive mesothelial cells. Clinical correlation recommended. 02/01/2023 4:11 PM EST LABORATORY C Body Fluid Right pleural fluid / Unknown Non-blood Collection / Unknown 02/01/2023 12:22 PM EST 02/01/2023 12:37 PM EST Edgar Grey MD LAB FLU ID AND STOOL ORDERABLES LABORATORY [facility] [address] [place] [address] * (ABNORMAL) MANUAL DIFFERENTIAL, BODY FLUID (02/01/2023 12:22 PM EST) Total Nucleated Cell Count, Fluid 391 cells/uL 02/01/2023 4:11 PM EST LAB[facility]ATORY [facility] Neutrophils % 5(H) 0 - 1 % 02/01/2023 4:11 PM EST LAB[facility] Lymphocytes % 74(H) 18 - 36 % 02/01/2023 4:11 PM EST LAB[facility] Monocytes % 16(L) 64 - 80 % 02/01/2023 4:11 PM EST LAB[facility] Eosinophils % 1 % 02/01/2023 4:11 PM EST [facility] Basophils % 2 % 02/01/2023 4:11 PM EST LAB[facility] Lining Cells % 2 0 - 2 % 02/01/2023 4:11 PM EST LAB[facility] Absolute Neutrophils 19.55 cells/uL 02/01/2023 4:11 PM EST LAB[facility]AT[facility] Absolute Lymphocytes 289.34 cells/uL 02/01/2023 4:11 PM EST LAB[facility] Absolute Monocytes 62.56 cells/uL 02/01/2023 4:11 PM EST LAB[facility]AT[facility] Absolute Eosinophils 3.91 cells/uL 02/01/2023 4:11 PM EST LAB[facility] Absolute Basophils 7.82 cells/uL 02/01/2023 4:11 PM EST LAB[facility]AT[facility] Absolute Lining Cells 7.82 cells/uL 02/01/2023 4:11 PM EST LAB[facility] Body Fluid Right pleural fluid / Unknown Non-blood Collection / Unknown 02/01/2023 12:22 PM EST 02/01/2023 12:37 PM EST Narrative LABORATORY [facility] - 02/01/2023 4:11 PM EST Some reference ranges and other method performance specifications have not been established for this fluid. The test results must be integrated into the clinical context for interpretation. Edgar Nithin Sai MD LAB FLU ID AND STOOL ORDERABLES Performing Organization Address [facility] Co de Phone Number [address] [address] * CELL COUNT, BODY FLUID (02/01/2023 12:22 PM EST) Clarity, Fluid Clear Clear 02/01/2023 2:09 PM EST LABORATORY [facility] Color, Fluid Yellow Straw, Yellow, Colorless 02/01/2023 2:09 PM EST LABORATORY [facility] Total Nucleated Cell Count, Fluid 391 <3,800 cells/uL 02/01/2023 2:09 PM EST LABORATORY [facility] RBC, Fluid 338 cells/uL 02/01/2023 2:09 PM EST LABORATORY [facility] Body Fluid Right pleural fluid / Unknown Non-blood Collection / Unknown 02/01/2023 12:22 PM EST 02/01/2023 12:37 PM EST [facility] LABORATORY [facility] - 02/01/2023 2:09 PM EST Some reference ranges and other method performance specifications have not been established for this fluid. The test results must be integrated into the clinical context for interpretation. Edgar Grey MD LAB FLU ID AND STOOL ORDERABLES Performing Organization Address [facility] de Phone Number LABORATORY [place] [address] [place] [address] * PH,BODYFLUID (02/01/2023 12:22 PM EST) pH, Body Fluid 7.75 units 02/01/2023 1:26 PM EST LABORATORY [facility] Comment: The reference interval(s) and other method performance specifications may not be available for this body fluid. Comparison of this result with the concentration in the blood, serum, or plasma is recommended. The test result must be integrated into the clinical context for interpretation. Please refer to test catalog (https://www.[employer]/catalog/body_fluids.cfm) for additional interpretive information. This test was developed and its performance characteristics determined by [employer]. It has not been cleared or approved by the US Food and Drug Administration. Body Fluid Right pleural fluid / Unknown Non-blood Collection / Unknown 02/01/2023 12:22 PM EST 02/01/2023 12:37 PM EST Edgar Grey MD LAB FLU ID AND STOOL ORDERABLES Performing Organization Address [facility] de Phone Number LABORATORY [place] [address] [place] [address] * LD, BODY FLUID (02/01/2023 12:22 PM EST) LD, Body Fluid 77 U/L 02/01/2023 1:13 PM EST LABORATORY [facility] Comment: The reference interval(s) and other method performance specifications may not be available for this body fluid. Comparison of this result with the concentration in the blood, serum, or plasma is recommended. The test result must be integrated into the clinical context for interpretation. Please refer to test catalog (https://www.[employer]/catalog/body_fluids.cfm) for additional interpretive information. This test was developed and its performance characteristics determined by [employer]. It has not been cleared or approved by the US Food and Drug Administration. Body Fluid Right pleural fluid / Unknown Non-blood Collection / Unknown 02/01/2023 12:22 PM EST 02/01/2023 12:37 PM EST Edgar Grey MD LAB FLU ID AND STOOL ORDERABLES Performing Organization Address [facility] de Phone Number LABORATORY [address] [address] * PROTEIN, BODY FLUID (02/01/2023 12:22 PM EST) Protein, Body Fluid 2.9 g/dL 02/01 1:13 PM EST LABORATORY [facility] Comment: The reference interval(s) and other method performance specifications may not be available for this body fluid. Comparison of this result with the concentration in the blood, serum, or plasma is recommended. The test result must be integrated into the clinical context for interpretation. Please refer to test catalog (https://www.[employer]/catalog/body_fluids.cfm) for additional interpretive information. This test was developed and its performance characteristics determined by [employer]. It has not been cleared or approved by the US Food and Drug Administration. Body Fluid Right pleural fluid / Unknown Non-blood Collection / Unknown 02/01/2023 12:22 PM EST 02/01/2023 12:37 PM EST Edgar Grey MD LAB FLU ID AND STOOL ORDERABLES LABORATORY [facility] [address] [place] [address] documented in this encounter Visit Diagnoses Diagnosis Pleural effusion, right Unspecified pleural effusion documented in this encounter Administered Medications Inactive Administered Medications - up to 3 most recent administrations Medication Order MAR Action Action Date Dose Rate Site buffered lidocaine 1 % inj Intradermal, ONCE PRN INTRA PROCEDURE, Starting on Mon02/01/23 at 1217, Until Mon02/01/23 at 1217, Intra-Op Given 02/01/2023 12:17 PM EST 3 mL documented in this encounter Active and Recently Administered Medications Times are shown in EST. PRN Medication Order 01/30/2023 01/31/2023 02/01/2023 buffered lidocaine 1 % inj (COMPLETED) Intradermal, ONCE PRN INTRA PROCEDURE, Starting on Mon02/01/23 at 1217, Until Mon02/01/23 at 1217, Intra-Op 1217 (Given - Provid er: Sally Alvarez PA-C - Comment: Right back) documented in this encounter Advance Directives Latest Code Status on File Code Status Date Activated Date Inactivated Comments Full Code 04/15/2015 4:40 PM 04/16/2015 5:24 PM This order reflects the patients wishes and were consensually agreed upon. Care Teams Head Custodian Relationship Specialty Start Date End Date Edgar Gibbs MD [address] [place] [address] [place] [address] PCP - General Family Medicine 07/03/20 documented as of this encounter
--- OUTSIDE RECORDS SUMMARY | 2023-06-02 11:46 | External Medical Summary | Summary of Care ---
Author Name Unknown Organization [facility] Address [address] [place] [address] Phone [phone] Care Team Providers Care Electronic Prepress Operator Name Role Phone Edgar Gibbs MD Primary Care P rovider Reason for Visit * Reason Comments Outpatient Testing Encounter Details Date Type Department Care Team (Late st Contact Info) Description 02/01/2023 2:40 PM EST Laboratory Outpatient Laboratory, [facility] [address] [place] [address] [facility], Lab [facility] [address] [place] [address] Arrived Allergies Active Allergy Reactions Criticality Noted Date Comments Latex 07/19/2019 Pantoprazole Sodium Edema face/lips/tongue High 04/0 02/2014 documented as of this encounter (statuses as of 02/01/2023) Medications Medication Sig Dispensed Refills Start Date [...] MCG/ACT Inhalation Aerosol Powder Breath Activated (umeclidinium Beecher)Indications :Chronic obstructive pulmonary disease, unspecified COPD type [...] as of this encounter (statuses as of 02/01/2023) Active Problems Problem Noted Date Diagnosed Date [...] as of this encounter (statuses as of 02/01/2023) Resolved Problems Problem Noted Date Diagnosed Date [...] as of this encounter (statuses as of 02/01/2023) Immunizations Name Administration Dates Next Due COVID-19 mRNA, LNP-s, No Pre serve, 2-Dose Series (Pfizer) 01/19/2021,06/10/2020,05/20/2020 Pneumococcal Conjugate Vacci ne, 20-valent ([id number]) 03/16/2022 Pneumococcal Polysaccharide PPV23 (Pneumovax) 12/28/2017 SEASONAL [...] Upcoming Encounters Date Type Department Care Team ([facility] st Contact Info) Description 02/10/2023 11:30 AM EST Office Visit [facility] [address] [place] [phone] Edgar Gibbs MD [address] [place] [address] 03/03/2023 8:15 AM EST Cardiac Studies Cardiac Studies, [facility] [address] [facility] [place] [address] 04/12/2023 3:30 PM EST Procedure Only Urology, [facility] [address] [facility] [place] [address] Travon Canales MD [address] [place] [address] [place] [address] 04/19/2023 11:00 AM EST Appointment Interventional Radiology [facility], [facility] 1st Floor [address] [place] [address] 05/17/2023 1:00 PM EDT Office Visit Pulmonary Medicine, [facility] [address] [facility] [place] [address] Tino Stapleton MD [address] [place] [address] 06/07/2023 11:50 AM EDT Office Visit [address] [phone] Edgar Gibbs MD [address] [place] [address] Health Maintenance Due Date Last Done Comments Alpha-1 Antitrypsin 05[birth year]18/1963 Hepatitis C Screening 05/18/1963 *COPD SEVERITY VERIFIED BY PFT 03/05/2022 COVID-19 Vaccine ( season) 2022 01/19/2021, 06/10/2020, 05/20/2020 Influenza Vaccine (FLU shot) (#1) 2022 12/04/2021, 12/22/2020, 12/22/2020, Additional history exists DISCUSS TOBACCO CESSATION (REFER TO SMARTSET #3295) 06/04/2023 06/03/2022 Depression Screening 06/04/2023 06/03/2022 O2 [...] and were consensually agreed upon. Care Teams Electronic Prepress Operator Relationship Specialty Start Date End Date Edgar Gibbs MD [address] [place] [address] PCP - General Family Medicine 07/03/20 documented as of this encounter
--- OUTSIDE RECORDS SUMMARY | 2023-06-02 11:47 | External Medical Summary | Summary of Care ---
Author Name Unknown Organization [facility] Address [address] [place] [facility] [place] [address] Phone [phone] Care Team Providers Care Provider Relations Manager Name Role Phone Edgar Gibbs MD Primary Care P rovider Reason for Referral * Precert (Within 10 days (routine)) - Authorized Specialty Diagnoses / Procedures Referred By Contac t Referred To Contact Radiology Diagnoses Pleural effusion, right Procedures IR CHEST THORACENTESIS Edgar Gibbs MD [address] [place] [phone] Referral ID Status Reason Start Date Expiration Date V isits Requested Visits Authorized [id number] Authorized 02/01/2023 999 999 Reason for Visit * Reason Onset Date Comments abnormal imaging study 01/25/2023 Encounter Details Date Type Department Care Team ([facility] Contact Info) Description 01/25/2023 Telephone Family [address] [phone] Edgar Gibbs MD [address] [place] [phone] abnormal imaging study Allergies Active Allergy Reactions Criticality Noted Date Comments Latex 07/19/2019 Pantoprazole Sodium Edema face/lips/tongue High 04/0 02/2014 documented as of this encounter (statuses as of 01/26/2023) Medications Medication Sig Dispensed Refills Start Date [...] Acetate (3 Month) 22.5 MG Subcutaneous Kit (Petsy) Inject 22.5 mg under the skin. Every 3 months 0 11/18/2020 Active amLODIPine Besylate 5 MG Oral Tablet (Norvasc) TAKE 1 TABLET BY MOUTH ONCE DAILY IN THE MORNING 90 Tablet 2 02/23/2022 Active Incruse Ellipta 62.5 MCG/ACT Inhalation Aerosol Powder Breath Activated (umeclidinium [place])Indications: Chronic obstructive pulmonary disease, unspecified COPD type [...] OR WHEEZING 18 g 5 01/20/2023 Active documented as of this encounter (statuses as of 01/26/2023) Active Problems Problem Noted Date Diagnosed Date [...] as of this encounter (statuses as of 01/26/2023) Resolved Problems Problem Noted Date Diagnosed Date [...] as of this encounter (statuses as of 01/26/2023) Immunizations Name Administration Dates Next Due COVID-19 mRNA, LNP-s, No Pre serve, 2-Dose Series (Pfizer) 01/19/2021,06/10/2020,05/20/2020 Pneumococcal Conjugate Vacci ne, 20-valent ([id number]) 03/16/2022 Pneumococcal Polysaccharide PPV23 (Pneumovax) 12/28/2017 SEASONAL [...] encounter Miscellaneous Notes * Telephone Encounter - Estephanie Hurst OSA - 01/26/2023 12:00 PM EST Reason for patient's call: Returning call- CT results Caller was transferred to [facility] at the nurse line. * Telephone Encounter - Laurita Coley LPN - 01/26/2023 11:52 AM EST Attempted to call patient, no answer lm to have patient call back for test results. If patient calls back please inform of information from Dr. García. * Telephone Encounter - Edgar Gibbs MD - 01/25/2023 7:42 PM EST Moderate right-sided pleural effusion noted on CT has been present for over 2 months. I do recommend referral to Interventional Radiology to remove some of the right-sided pleural fluid (thoracentesis) and have the fluid tested since it is persistent. Awaiting echocardiogram results. Orders for labs and interventional radiology consult are in. This needs to be done at [facility] [address] [facility]. On the same day of the thoracentesis patient should stop by the lab to have blood work done as well. This blood work is part of the evaluation of the right-sided pleural fluid. documented in this encounter Plan of Treatment Upcoming Encounters Date Type Department Care Team (Late st Contact Info) Description 02/10/2023 11:30 AM EST Office Visit [address] [phone] Edgar Gibbs MD [address] [place] [phone] 03/03/2023 8:15 AM EST Cardiac Studies Cardiac Studies, [facility] [address] [place] [address] 04/12/2023 11:30 AM EST Appointment Interventional Radiology [facility], [facility] 1st Floor [address] [place] [address] 04/12/2023 3:30 PM EST Procedure Only Urology, [facility] [address] [place] [address] Travon Canales MD 27 [facility] [place] [address] [place] [address] 06/07/2023 11:50 AM EDT Office Visit [address] [phone] Edgar Gibbs MD [address] [place] [address] Scheduled Orders Name Type Priority Associated Diagnoses Orde r Schedule IR CHEST THORACENTESIS Medical Imaging Routine Pleural effusion, right Expected: 02/01/2023, Expires: 02/25/2024 CYTOLOGY Pathology Routine Pleural effusion, right Expected: 02/01/2023, Expires: 02/25/2024 PH,BODYFLUID Lab Routine Pleural effusion, right Expected: 02/01/2023 (Approximate), Expires: 01/25/2024 CELL COUNT WITH DIFFERENTIAL, BODY FLUID Lab Routine Pleural effusion, right Expected: 02/01/2023 (Approximate), Expires: 01/25/2024 CULTURE, BODY FLUID, AEROBIC AND ANAEROBIC Lab Routine Pleural effusion, right Expected: 02/01/2023, Expires: 01/26/2024 LD, BODY FLUID Lab Routine Pleural effusion, right Expected: 02/01/2023, Expires: 01/26/2024 PROTEIN, BODY FLUID Lab Routine Pleural effusion, right Expected: 02/01/2023, Expires: 01/26/2024 PROTEIN Lab Routine Pleural effusion, right Expected: 02/01/2023 (Approximate), Expires: 01/25/2024 LD Lab Routine Pleural effusion, right Expected: 02/01/2023 (Approximate), Expires: 01/25/2024 Health Maintenance Due Date Last Done Comments Alpha-1 Antitrypsin 05[birth year]18/1963 Hepatitis C Screening 05/18/1963 *COPD SEVERITY VERIFIED BY PFT 03/05/2022 COVID-19 Vaccine ( season) 2022 01/19/2021, 06/10/2020, 05/20/2020 Influenza Vaccine (FLU shot) (#1) 2022 12/04/2021, 12/22/2020, 12/22/2020, Additional history exists DISCUSS TOBACCO CESSATION (REFER TO SMARTSET #3291) 06/04/2023 06/03/2022 Depression Screening 06/04/2023 06/03/2022 O2 ASSESSMENT COMPLETED IN PAST YEAR FOR COPD 01/05/2024 01/04/2023 DTaP,Tdap,and Td Vaccines (2 - Td or [...] Pleural effusion, right- Primary Unspecified pleural effusion documented in this encounter Advance Directives Latest Code Status on File Code Status Date Activated Date Inactivated Comments Full Code 04/15/2015 4:40 PM 04/16/2015 5:24 PM This order reflects the patients wishes and were consensually agreed upon. Care Teams Provider Relations Manager Relationship Specialty Start Date End Date Edgar Gibbs MD [address] [place] [phone] PCP - General Family Medicine 07/03/20 documented as of this encounter
--- OUTSIDE RECORDS SUMMARY | 2023-06-02 11:47 | External Medical Summary | Summary of Care ---
Author Name Unknown Organization [facility] Address [address] [facility] [address] Phone [phone] Care Team Providers Care Sewage Reticulation Drafting Officer Name Role Phone Edgar Gibbs MD Primary Care P rovider Encounter Details Date Type Department Care Team (Late st Contact Info) Description 01/16/2023 Result Scan Unspecified Department Pako Ramos MD [address] [facility] [address] <No scans attached> Allergies Active Allergy Reactions Criticality Noted Date Comments Latex 07/19/2019 Pantoprazole Sodium Edema face/lips/tongue High 04/0 02/2014 documented as of this encounter (statuses as of 01/24/2023) Medications Medication Sig Dispensed Refills Start Date [...] Acetate (3 Month) 22.5 MG Subcutaneous Kit ([place]) Inject 22.5 mg under the skin. Every 3 months 0 11/18/2020 Active amLODIPine Besylate 5 MG Oral Tablet (Norvasc) TAKE 1 TABLET BY MOUTH ONCE DAILY IN THE MORNING 90 Tablet 2 02/23/2022 Active Incruse Ellipta 62.5 MCG/ACT Inhalation Aerosol Powder Breath Activated (umeclidinium [place])Indications: Chronic obstructive pulmonary disease, unspecified COPD type [...] as of this encounter (statuses as of 01/24/2023) Active Problems Problem Noted Date Diagnosed Date [...] as of this encounter (statuses as of 01/24/2023) Resolved Problems Problem Noted Date Diagnosed Date [...] as of this encounter (statuses as of 01/24/2023) Immunizations Name Administration Dates Next Due COVID-19 mRNA, LNP-s, No Pre serve, 2-Dose Series ([employer]) 01/19/2021,06/10/2020,05/20/2020 Pneumococcal Conjugate Vacci ne, 20-valent ([id number]) 03/16/2022 Pneumococcal Polysaccharide PPV23 (Pneumovax) 12/28/2017 SEASONAL [...] Upcoming Encounters Date Type Department Care Team ([facility] Contact Info) Description 02/10/2023 11:30 AM EST Office Visit [address] [place] [phone] Edgar Gibbs MD [address] [place], [place] [address] [phone] 03/03/2023 8:15 AM EST Cardiac Studies [facility], [facility] [address] [facility] [address] 04/12/2023 11:30 AM EST Appointment Interventional Radiology [facility], [facility] 1st Floor [address] [place] [address] 04/12/2023 3:30 PM EST Procedure Only Urology, [facility] 132 [facility] [place] [address] Travon Canales MD 27 [facility] [place] [address] [place] [phone] 06/07/2023 11:50 AM EDT Office Visit [facility] [address] [place] [phone] Edgar Gibbs MD [address] [place] [address] Health Maintenance Due Date Last Done Comments [...] Date/Time Associated Diagnosis Comments OUTSIDE LAB RESULTS 01/16/2023 documented in this encounter Results * OUTSIDE LAB RESULTS (01/16/2023) 01/16/2023 Pako Ramos MD LABORATORY documented in this encounter Advance Directives Latest Code Status on File Code Status Date Activated Date Inactivated Comments Full Code 04/15/2015 4:40 PM 04/16/2015 5:24 PM This order reflects the patients wishes and were consensually agreed upon. Care Teams Sewage Reticulation Drafting Officer Relationship Specialty Start Date End Date Edgar Gibbs MD [address] [place] [phone] PCP - General Family Medicine 07/03/20 documented as of this encounter
--- OUTSIDE RECORDS SUMMARY | 2023-06-02 11:47 | External Medical Summary | Summary of Care ---
Author Name Unknown Organization [facility] Address [address] [place] [facility] [place] [address] Phone [phone] Care Team Providers Care Commercial Production Editor Name Role Phone Edgar Gibbs MD Primary Care P rovider Reason for Referral * Precert (Within 10 days (routine)) - Authorized Specialty Diagnoses / Procedures Referred By Contac t Referred To Contact Radiology Diagnoses Pleural effusion, right Procedures IR CHEST THORACENTESIS Edgar Gibbs MD [address] [place] [phone] Referral ID Status Reason Start Date Expiration Date V isits Requested Visits Authorized [id number] Authorized 02/01/2023 999 999 Reason for Visit * Reason Onset Date Comments abnormal imaging study 01/25/2023 Encounter Details Date Type Department Care Team ([facility] Contact Info) Description 01/25/2023 Telephone Family [address] [phone] Edgar Gibbs MD [address] [place] [phone] abnormal imaging study Allergies Active Allergy [...] Acetate (3 Month) 22.5 MG Subcutaneous Kit (Source4Style) Inject 22.5 mg under the skin. Every 3 months 0 11/18/2020 Active amLODIPine Besylate 5 MG Oral Tablet (Norvasc) TAKE 1 TABLET BY MOUTH ONCE DAILY IN THE MORNING 90 Tablet 2 02/23/2022 Active Incruse Ellipta 62.5 MCG/ACT Inhalation Aerosol Powder Breath Activated (umeclidinium [place])Indications: Chronic obstructive pulmonary disease, unspecified COPD type [...] (Pfizer) 01/19/2021,06/10/2020,05/20/2020 Pneumococcal Conjugate Vacci ne, 20-valent ([id number]) 03/16/2022 Pneumococcal Polysaccharide PPV23 (Pneumovax) 12/28/2017 SEASONAL [...] encounter Miscellaneous Notes * Telephone Encounter - Laurita Coley LPN [...] in. This needs to be done at [facility]. On the same day of the thoracentesis patient should stop by the lab to have blood work done as well. This blood work is part of the evaluation of the right-sided pleural fluid. documented in this encounter Plan of Treatment Upcoming Encounters Date Type Department Care Team (Late st Contact Info) Description 02/10/2023 11:30 AM EST Office Visit [address] [phone] Edgar Gibbs MD [address] [place] [address] 03/03/2023 8:15 AM EST Cardiac Studies Cardiac Studies, [facility] 132 [place] [address] 04/12/2023 11:30 AM EST Appointment Interventional Radiology [facility], [facility] 1st Floor [address] [place] [address] 04/12/2023 3:30 PM EST Procedure Only Urology, [facility] 132 [facility] [place] [address] Travon Canales MD 27 [facility] [address] [place] [address] 06/07/2023 11:50 AM EDT Office Visit [facility] [address] [place] [address] Edgar Gibbs MD [address] [place] [address] Scheduled Orders Name Type Priority Associated Diagnoses [...] exists DISCUSS TOBACCO CESSATION (REFER TO SMARTSET #4920) 06/04/2023 06/03/2022 Depression Screening 06/04/2023 06/03/2022 O2 [...] and were consensually agreed upon. Care Teams Commercial Production Editor Relationship Specialty Start Date End Date Edgar Gibbs MD [address] [place] [address] PCP - General Family Medicine 07/03/20 documented as of this encounter
--- OUTSIDE RECORDS SUMMARY | 2023-06-02 11:47 | External Medical Summary | Summary of Care ---
Author Name Unknown Organization [facility] Address [address] [facility] [place] [address] Phone [phone] Care Team Providers Care Rink Rat Name Role Phone Edgar Gibbs MD Primary Care P rovider Reason for Visit * Reason Onset Date Comments Appointment 01/23/2023 Encounter Details Date Type Department Care Team ([facility] st Contact Info) Description 01/23/2023 Telephone Family Practice [address] [phone] Edgar Gibbs MD [address] [place] [phone] Appointment Allergies Active Allergy Reactions Criticality Noted Date Comments Latex 07/19/2019 Pantoprazole Sodium Edema face/lips/tongue High 04/0 02/2014 documented as of this encounter (statuses as of 01/23/2023) Medications Medication Sig Dispensed Refills Start Date [...] MCG/ACT Inhalation Aerosol Powder Breath Activated (umeclidinium [place])Indications: Chronic obstructive pulmonary disease, unspecified COPD type [...] as of this encounter (statuses as of 01/23/2023) Active Problems Problem Noted Date Diagnosed Date [...] as of this encounter (statuses as of 01/23/2023) Resolved Problems Problem Noted Date Diagnosed Date [...] as of this encounter (statuses as of 01/23/2023) Immunizations Name Administration Dates Next Due COVID-19 mRNA, LNP-s, No Pre serve, 2-Dose Series ([employer]) 01/19/2021,06/10/2020,05/20/2020 Pneumococcal Conjugate Vacci ne, 20-valent ([id number]) 03/16/2022 Pneumococcal Polysaccharide PPV23 (Pneumovax) 12/28/2017 SEASONAL [...] encounter Miscellaneous Notes * Telephone Encounter - Puma Aburto OSA - 01/23/2023 1:41 PM EST Spoke to patient, appointment scheduled. * Telephone Encounter - Laurita Coley LPN - 01/23/2023 12:53 PM EST Call details: COLD/ASTHMA/ALLERGY Yes Cold Symptoms Chest congestion Cough COUGH: Yes Cough Symptoms: With mucus (note color in comments),At night,During day Patient Request Patient Requesting: Appointment,Speak with a Provider Called and spoke with patient and he stated he has had a cough for a couple of weeks now and nothing seems to be helping it get better. Patient states he would like to get scheduled with an appointment with Dr. García and no other provider. Patient would like to know if a provider can read his CT results and call him when they have been read. * Telephone Encounter - Gris Naidu OSA - 01/23/2023 12:31 PM EST 1. When were you seen for this problem? 01/16 2. What provider did you see for this problem? Ricky Grey 3. What medications are you presently taking? No 4. What is it that is no better? Please refer to Call Details. Pt would also like the test results from his CT scan documented in this encounter Plan of Treatment Upcoming Encounters Date Type Department Care Team (Late st Contact Info) Description 02/10/2023 11:30 AM EST Office Visit [address] [place] [phone] Edgar Gibbs MD [address] [place], [place] [address] [phone] 03/03/2023 8:15 AM EST Cardiac Studies Cardiac Studies, [facility] 132 [facility] [place] [address] 04/12/2023 11:30 AM EST Appointment Interventional Radiology [facility], [facility] 1st Floor [address] [facility] [place] [address] 04/12/2023 3:30 PM EST Procedure Only Urology, [facility] 132 [facility] [place] [address] Travon Canales MD [address] [place] [address] [place] [address] 06/07/2023 11:50 AM EDT Office Visit [facility] [address] [place] [phone] Edgar Gibbs MD [address] [place] [address] Health Maintenance Due Date Last Done Comments [...] and were consensually agreed upon. Care Teams Rink Rat Relationship Specialty Start Date End Date Edgar Gibbs MD [address] [place] [address] PCP - General Family Medicine 07/03/20 documented as of this encounter
--- OUTSIDE RECORDS SUMMARY | 2023-06-02 11:47 | External Medical Summary | Summary of Care ---
Author Name Unknown Organization [facility] Address [address] [facility] [place] [address] Phone [phone] Care Team Providers Care Scheduling Coordinator Name Role Phone Edgar Clements MD [facility] Reason for Referral * Evaluate & Treat - Unlimited Visits (Within 10 days (routine)) - Authorized Specialty Diagnoses / Procedures Referred By Contac t Referred To Contact Pulmonary Diseases / Pulmonary Diagnoses Pleural effusion, right Loss of weight Chronic cough Prostate cancer (HCC) Edgar Clements MD [address] [place] [address] Referral ID Status Reason Start Date Expiration Date Visits Requested Visits Authorized [id number] Authorized Specialty Services Required 3 999 999 Question Answer Referral Priority Within 10 days (routine) Where should this appointment be scheduled? [facility] Reason for Referral? Other Comments Right pleural effusion, weight loss, cough, end-stage renal disease, history of prostate cancer * Precert (Within 10 days (routine)) - Authorized Specialty Diagnoses / Procedures Referred By Contac t Referred To Contact Radiology Diagnoses Pleural effusion, right Procedures IR CHEST THORACENTESIS Edgar Clements MD [address] [place] [address] Referral ID Status Reason Start Date Expiration Date V isits Requested Visits Authorized [id number] Authorized 02/01/2023 999 999 Reason for Visit * Reason Onset Date Comments abnormal imaging study 01/25/2023 Encounter Details Date Type Department Care Team ([facility] st Contact Info) Description 01/25/2023 Telephone [facility] [address] [place] [address] Edgar Clements MD [address] [place] [phone] abnormal imaging study Allergies Active Allergy [...] stage V (GFR under 15 ml/min) ([facility]) take 2 pills 3 x daily 180 Tab 11 10/26/2018 Active Sodium Chloride Flush (NORMAL SALINE FLUSH) 0.9 % SOLN injection FLUSH ONCE DAILY WITH 10ml 300 mL 1 03/12/2019 Active Additional Information Patient not taking.Reported on 01/02/2023 Leuprolide Acetate (3 Month) 22.5 MG Subcutaneous Kit (HERMEL DELOR) Inject 22.5 mg under the skin. Every 3 months 0 11/18/2020 Active amLODIPine Besylate 5 MG Oral Tablet (Norvasc) TAKE 1 TABLET BY MOUTH ONCE DAILY IN THE MORNING 90 Tablet 2 02/23/2022 Active Incruse Ellipta 62.5 MCG/ACT Inhalation Aerosol Powder Breath Activated (umeclidinium [place])Indications :Chronic obstructive pulmonary disease, unspecified COPD type ([facility]) Inhale 1 Puff by mouth in [...] mRNA, LNP-s, No Pre serve, 2-Dose Series ([employer]) 01/19/2021,06/10/2020,05/20/2020 Pneumococcal Conjugate Vacci ne, 20-valent ([id number]) 03/16/2022 Pneumococcal Polysaccharide PPV23 (Pneumovax) 12/28/2017 SEASONAL [...] encounter Miscellaneous Notes * Addendum Note - Edgar Clements MD - 01/26/2023 2:06 PM EST Addended by: EDGAR CLEMENTS on: 01/26/2023 02:06 PM Modules accepted: Orders * Telephone Encounter - Edgar Clements MD - 01/26/2023 1:57 PM EST Patient is weak and is having shortness of breath. Has been losing weight and has cough. Currently on dialysis. Received communication from Dr. Ramos from Nephrology. Awaiting thoracentesis by Interventional Radiology. Will refer to Pulmonary as he might need bronchoscopy in the future. Patient is concerned about potential pneumonia. He was treated with doxycycline for 10 days about three weeksago. I will prescribe Z-Gene and also cefdinir 300 mg every 48 hours for 5 doses. Okay to start cefdinir today after dialysis. Please notify patient. Prescription sent to [facility]. * Telephone Encounter - Felisa Delatorre OSA - 01/26/2023 12:16 PM EST Patient will be contacted by IR for scheduling office PAR's are unable to schedule for this * Telephone Encounter - Beverly Stewart LPN - 01/26/2023 12:10 PM EST Patient's EC Eliana aware and verbalized understanding. PARs- Please assist with scheduling. (Pt has dialysis on Tuesdays and ). Would like to know if the pleural effusion could be cause by pneumonia? Is asking if there is an abx or other medication the can help decrease the pleural effusion until the pt is seen? Pharmacy selected. Please advise. * Telephone Encounter - Estephanie Hurst OSA - 01/26/2023 12:00 PM EST Reason for patient's call: Returning call- CT results Caller was transferred to [facility] at the nurse line. * Telephone Encounter - Laurita Coley LPN - 01/26/2023 11:52 AM EST Attempted to call patient, no answer lm to have patient call back for test results. If patient calls back please inform of information from Dr. García. * Telephone Encounter - Edgar Clements MD - 01/25/2023 7:42 PM EST Moderate right-sided pleural effusion noted on CT has been present for over 2 months. I do recommend referral to Interventional Radiology to remove some of the right-sided pleural fluid (thoracentesis) and have the fluid tested since it is persistent. Awaiting echocardiogram results. Orders for labs and interventional radiology consult are in. This needs to be done at [facility]. On the same day of the thoracentesis patient should stop by the lab to have blood work done as well. This blood work is part of the evaluation of the right-sided pleural fluid. documented in this encounter Plan of Treatment Upcoming Encounters Date Type Department Care Team (Late st Contact Info) Description 02/01/2023 11:30 AM EST Appointment Interventional Radiology [facility], [facility] 1st Floor [address] [place] [address] 02/10/2023 11:30 AM EST Office Visit [facility] [address] [place] [phone] Edgar Clements MD [address] [place] [address] 03/03/2023 8:15 AM EST Cardiac Studies Cardiac Studies, [facility] 132 [facility] [place] [address] 04/12/2023 11:30 AM EST Appointment Interventional Radiology [facility], [facility] 1st Floor [address] [place] [facility] [place] [address] 04/12/2023 3:30 PM EST Procedure Only Urology, [facility] [address] [facility] [place] [address] Travon Canales MD 27 [facility] [place] [address] [place] [address] 06/07/2023 11:50 AM EDT Office Visit [facility] [address] [place] [phone] Edgar Clements MD [address] [place] [address] Scheduled Orders Name Type Priority Associated Diagnoses [...] effusion, right Expected: 02/01/2023 (Approximate), Expires: 01/25/2024 Scheduled Referrals Name Type Priority Associated Diagnoses Orde r Schedule PULMONARY REFERRAL OP Referral Within 10 days (routine) Pleural effusion, right Loss of weight Chronic cough Prostate cancer (HCC) Ordered: 01/26/2023 Health Maintenance Due Date Last Done Comments [...] Pleural effusion, right- Primary Unspecified pleural effusion Loss of weight Chronic cough Cough Prostate cancer (HCC) Malignant neoplasm of prostate ESRD (end stage renal disease) on dialysis (HCC) End stage renal disease documented in this encounter Advance Directives Latest Code Status on File Code Status Date Activated Date Inactivated Comments Full Code 04/15/2015 4:40 PM 04/16/2015 5:24 PM This order reflects the patients wishes and were consensually agreed upon. Care Teams Scheduling Coordinator Relationship Specialty Start Date End Date Edgar Clements MD [address] [place] [phone] PCP - General Family Medicine 07/03/20 documented as of this encounter
--- OUTSIDE RECORDS SUMMARY | 2023-06-02 11:47 | External Medical Summary | Summary of Care ---
Author Name Unknown Organization [facility] Address [address] [place] [facility] [place] [address] Phone [phone] Care Team Providers Care Hone Operator Name Role Phone Edgar Gibbs MD Primary Care P rovider Reason for Referral * Precert (Within 10 days (routine)) - Authorized Specialty Diagnoses / Procedures Referred By Contac t Referred To Contact Radiology Diagnoses Pleural effusion, right Procedures IR CHEST THORACENTESIS Edgar Gibbs MD [address] [place] [phone] Referral ID Status Reason Start Date Expiration Date V isits Requested Visits Authorized [id number] Authorized 02/01/2023 999 999 Reason for Visit * Reason Onset Date Comments abnormal imaging study 01/25/2023 Encounter Details Date Type Department Care Team ([facility] Contact Info) Description 01/25/2023 Telephone Family [address] [phone] Edgar Gibbs MD [address] [place] [address] abnormal imaging study Allergies Active Allergy [...] Acetate (3 Month) 22.5 MG Subcutaneous Kit ([employer]) Inject 22.5 mg under the skin. Every 3 months 0 11/18/2020 Active amLODIPine Besylate 5 MG Oral Tablet (Norvasc) TAKE 1 TABLET BY MOUTH ONCE DAILY IN THE MORNING 90 Tablet 2 02/23/2022 Active Incruse Ellipta 62.5 MCG/ACT Inhalation Aerosol Powder Breath Activated (umeclidinium [place])Indications: Chronic obstructive pulmonary disease, unspecified COPD type [...] (Pfizer) 01/19/2021,06/10/2020,05/20/2020 Pneumococcal Conjugate Vacci ne, 20-valent ([id number]) 03/16/2022 Pneumococcal Polysaccharide PPV23 (Pneumovax) 12/28/2017 SEASONAL [...] encounter Miscellaneous Notes * Telephone Encounter - Beverly Stewart LPN [...] call- CT results Caller was transferred to [facility] at the nurse line. * Telephone Encounter [...] in. This needs to be done at [facility]. On the same day of the thoracentesis patient should stop by the lab to have blood work done as well. This blood work is part of the evaluation of the right-sided pleural fluid. documented in this encounter Plan of Treatment Upcoming Encounters Date Type Department Care Team ([facility] st Contact Info) Description 02/10/2023 11:30 AM EST Office Visit [address] [phone] Edgar Gibbs MD [address] [place] [address] 03/03/2023 8:15 AM EST Cardiac Studies Cardiac Studies, [facility] 132 [facility] [place] [address] 04/12/2023 11:30 AM EST Appointment Interventional Radiology [facility], [facility] 1st Floor [address] [place] [address] 04/12/2023 3:30 PM EST Procedure Only Urology, [facility] 132 [facility] [place] [address] Travon Canales MD [address] [place] [address] [place] [address] 06/07/2023 11:50 AM EDT Office Visit [address] [phone] Edgar Gibbs MD [address] [place] [address] Scheduled Orders Name Type Priority Associated Diagnoses [...] exists DISCUSS TOBACCO CESSATION (REFER TO SMARTSET #[id number]) 06/04/2023 06/03/2022 Depression Screening 06/04/2023 06/03/2022 O2 [...] and were consensually agreed upon. Care Teams Hone Operator Relationship Specialty Start Date End Date Edgar Gibbs MD [address] [place] [phone] PCP - General Family Medicine 07/03/20 documented as of this encounter
--- OUTSIDE RECORDS SUMMARY | 2023-06-02 11:47 | External Medical Summary | Summary of Care ---
Author Name Unknown Organization [facility] Address [address] [place] [facility] [place] [place] [place] [address] Phone [phone] Care Team Providers Care Revenue Investigator Name Role Phone Edgar Gibbs MD Primary Care P rovider Reason for Referral * Precert (Within 10 days (routine)) - Authorized Specialty Diagnoses / Procedures Referred By Contac t Referred To Contact Radiology Diagnoses Pleural effusion, right Procedures IR CHEST THORACENTESIS Edgar Gibbs MD [address] [place] [address] Referral ID Status Reason Start Date Expiration Date V isits Requested Visits Authorized [id number] Authorized 02/01/2023 999 999 Reason for Visit * Reason Onset Date Comments abnormal imaging study 01/25/2023 Encounter Details Date Type Department Care Team ([facility] Contact Info) Description 01/25/2023 Telephone Family [address] [phone] Edgar Gibbs MD [address] [place] [address] abnormal imaging study Allergies Active Allergy Reactions Criticality Noted Date Comments Latex 07/19/2019 Pantoprazole Sodium Edema face/lips/tongue High 04/0 02/2014 documented as of this encounter (statuses as of 01/25/2023) Medications Medication Sig Dispensed Refills Start Date [...] Acetate (3 Month) 22.5 MG Subcutaneous Kit ([employer]) Inject 22.5 mg under the skin. Every 3 months 0 11/18/2020 Active amLODIPine Besylate 5 MG Oral Tablet (Norvasc) TAKE 1 TABLET BY MOUTH ONCE DAILY IN THE MORNING 90 Tablet 2 02/23/2022 Active Incruse Ellipta 62.5 MCG/ACT Inhalation Aerosol Powder Breath Activated (umeclidinium [place])Indications: Chronic obstructive pulmonary disease, unspecified COPD type [...] as of this encounter (statuses as of 01/25/2023) Active Problems Problem Noted Date Diagnosed Date [...] as of this encounter (statuses as of 01/25/2023) Resolved Problems Problem Noted Date Diagnosed Date [...] as of this encounter (statuses as of 01/25/2023) Immunizations Name Administration Dates Next Due COVID-19 mRNA, LNP-s, No Pre serve, 2-Dose Series (Pfizer) 01/19/2021,06/10/2020,05/20/2020 Pneumococcal Conjugate Vacci ne, 20-valent ([id number]) 03/16/2022 Pneumococcal Polysaccharide PPV23 (Pneumovax) 12/28/2017 SEASONAL [...] in. This needs to be done at [facility]. On the same day of the thoracentesis patient should stop by the lab to have blood work done as well. This blood work is part of the evaluation of the right-sided pleural fluid. documented in this encounter Plan of Treatment Upcoming Encounters Date Type Department Care Team (Late st Contact Info) Description 02/10/2023 11:30 AM EST Office Visit [facility] [address] [place] [phone] Edgar Gibbs MD [address] [place] [address] 03/03/2023 8:15 AM EST Cardiac Studies Cardiac Studies, [facility] 132 [facility] [place] [address] 04/12/2023 11:30 AM EST Appointment Interventional Radiology [facility], [facility] 1st Floor [address] [place] [address] 04/12/2023 3:30 PM EST Procedure Only Urology, [facility] 132 [facility] [place] [address] Travon Canales MD [address] [facility] [place] [address] [place] [address] 06/07/2023 11:50 AM EDT Office Visit [facility] [address] [place] [phone] Edgar Gibbs MD [address] [place] [address] Scheduled Orders Name Type Priority Associated Diagnoses [...] and were consensually agreed upon. Care Teams Revenue Investigator Relationship Specialty Start Date End Date Edgar Gibbs MD [address] [place] [phone] PCP - General Family Medicine 07/03/20 documented as of this encounter
--- OUTSIDE RECORDS SUMMARY | 2023-06-02 11:47 | External Medical Summary | Summary of Care ---
Author Name Unknown Organization [facility] Address [address] [place] [facility] [place] [address] Phone [phone] Care Team Providers Care Field Machinist Name Role Phone Edgar Gibbs MD Primary Care P rovider Reason for Referral * Precert (Within 10 days (routine)) - Authorized Specialty Diagnoses / Procedures Referred By Contac t Referred To Contact Radiology Diagnoses Pleural effusion, right Procedures IR CHEST THORACENTESIS Edgar Gibbs MD [address] [place] [address] Referral ID Status Reason Start Date Expiration Date V isits Requested Visits Authorized [id number] Authorized 02/01/2023 999 999 Reason for Visit * Reason Onset Date Comments abnormal imaging study 01/25/2023 Encounter Details Date Type Department Care Team ([facility] Contact Info) Description 01/25/2023 Telephone Family [address] [phone] Edgar Gibbs MD [address] [place] [phone] abnormal imaging study Allergies Active Allergy [...] Acetate (3 Month) 22.5 MG Subcutaneous Kit ([employer]) Inject 22.5 mg under the skin. Every 3 months 0 11/18/2020 Active amLODIPine Besylate 5 MG Oral Tablet (Norvasc) TAKE 1 TABLET BY MOUTH ONCE DAILY IN THE MORNING 90 Tablet 2 02/23/2022 Active Incruse Ellipta 62.5 MCG/ACT Inhalation Aerosol Powder Breath Activated (umeclidinium [place])Indications: Chronic obstructive pulmonary disease, unspecified COPD type [...] (Pfizer) 01/19/2021,06/10/2020,05/20/2020 Pneumococcal Conjugate Vacci ne, 20-valent ([id number]) 03/16/2022 Pneumococcal Polysaccharide PPV23 (Pneumovax) 12/28/2017 SEASONAL [...] call- CT results Caller was transferred to [facility] at the nurse line. * Telephone [...] in. This needs to be done at [facility]. On the same day of the thoracentesis patient should stop by the lab to have blood work done as well. This blood work is part of the evaluation of the right-sided pleural fluid. documented in this encounter Plan of Treatment Upcoming Encounters Date Type Department Care Team (Late st Contact Info) Description 02/10/2023 11:30 AM EST Office Visit [address] [phone] Edgar Gibbs MD [address] [place] [address] 03/03/2023 8:15 AM EST Cardiac Studies Cardiac Studies, [facility] [address] 04/12/2023 11:30 AM EST Appointment Interventional Radiology [facility], [facility] 1st Floor [address] [place] [phone] 04/12/2023 3:30 PM EST Procedure Only Urology, [facility] 132 [facility] [place] [address] Travon Canales MD [address] [facility] [place] [address] [place] [address] 06/07/2023 11:50 AM EDT Office Visit Family [address] [phone] Edgar Gibbs MD [address] [place] [address] Scheduled Orders Name Type Priority Associated Diagnoses [...] exists DISCUSS TOBACCO CESSATION (REFER TO SMARTSET #[id number]) 06/04/2023 06/03/2022 Depression Screening 06/04/2023 06/03/2022 O2 [...] were consensually agreed upon. Care Teams Field Machinist Relationship Specialty Start Date End Date Edgar Gibbs MD [address] [place] [address] [phone] PCP - General Family Medicine 07/03/20 documented as of this encounter
--- OUTSIDE RECORDS SUMMARY | 2023-06-02 11:47 | External Medical Summary | Summary of Care ---
Author Name Unknown Organization [facility] Address [address] [facility] [place] [address] Phone [phone] Care Team Providers Care Sports Book Server Name Role Phone Edgar Clements MD Primary Care P [facility] Reason for Referral * Evaluate & Treat - Unlimited Visits (Within 10 days (routine)) - Authorized Specialty Diagnoses / Procedures Referred By Contac t Referred To Contact Pulmonary Diseases / Pulmonary Diagnoses Pleural effusion, right Loss of weight Chronic cough Prostate cancer (HCC) Edgar Clements MD [address] [place] [address] Referral ID Status Reason Start Date Expiration Date Visits Requested Visits Authorized [id number] Authorized Specialty Services Required 3 999 999 [...] Procedures IR CHEST THORACENTESIS Edgar Clements MD [address] [place] [address] Referral ID Status Reason Start Date Expiration Date V isits Requested Visits Authorized [id number] Authorized 02/01/2023 999 999 Reason for Visit * Reason Onset Date Comments abnormal imaging study 01/25/2023 Encounter Details Date Type Department Care Team ([facility] st Contact Info) Description 01/25/2023 Telephone [facility] [address] [place] [address] Edgar Clements MD [address] [place] [address] abnormal imaging study Allergies Active Allergy Reactions Criticality Noted Date Comments Latex 07/19/2019 Pantoprazole Sodium Edema face/lips/tongue High 04/0 02/2014 documented as of this encounter (statuses as of 01/27/2023) Medications Medication Sig Dispensed Refills Start Date End Date Status Cholecalciferol 2000 units Capsule Take 1 Capsule by mouth in the morning. 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 Every 3 months 0 11/18/2020 Active amLODIPine Besylate 5 MG Oral Tablet (Norvasc) TAKE 1 TABLET BY MOUTH ONCE DAILY IN THE MORNING 90 Tablet 2 02/23/2022 Active Incruse Ellipta 62.5 MCG/ACT Inhalation Aerosol Powder Breath Activated (umeclidinium [place])Indications :Chronic obstructive pulmonary disease, unspecified COPD type ([facility]) Inhale 1 Puff by mouth [...] as of this encounter (statuses as of 01/27/2023) Active Problems Problem Noted Date Diagnosed Date [...] as of this encounter (statuses as of 01/27/2023) Resolved Problems Problem Noted Date Diagnosed Date [...] as of this encounter (statuses as of 01/27/2023) Immunizations Name Administration Dates Next Due COVID-19 mRNA, LNP-s, No Pre serve, 2-Dose Series (Vivolux) 01/19/2021,06/10/2020,05/20/2020 Pneumococcal Conjugate Vacci ne, 20-valent ([id number]) 03/16/2022 Pneumococcal Polysaccharide PPV23 (Pneumovax) 12/28/2017 SEASONAL [...] encounter Miscellaneous Notes * Telephone Encounter - Otilio Heredia VICTORIANO - 01/27/2023 2:32 PM EST Pt is scheduled for May 16. Placed on Wait list. * Telephone Encounter - Tia Mendieta CCMA - 01/27/2023 8:59 AM EST Called and spoke with patient and made him aware of information below. Informed me that he already in scheduled with pulmonary for April. Wanted me to let you know he has a procedure on Monday02/01/23 at [place] to drain fluid out of his lungs. Will pick his prescription up later today. * Telephone Encounter - Otilio Heredia OSA - 01/26/2023 2:47 PM EST Lmom to schedule * Addendum Note - Edgar Clements MD [...] dialysis. Please notify patient. Prescription sent to [place] pharmacy. * Telephone Encounter - Felisa Delatorre [...] call- CT results Caller was transferred to [facility] at the nurse line. * Telephone Encounter [...] in. This needs to be done at [facility]. On the same day of the thoracentesis patient should stop by the lab to have blood work done as well. This blood work is part of the evaluation of the right-sided pleural fluid. documented in this encounter Plan of Treatment Upcoming Encounters Date Type Department Care Team (Late st Contact Info) Description 02/01/2023 11:30 AM EST Hospital Encounter Interventional Radiology [facility] [place] [facility]st [facility] [address] [place] [address] 02/10/2023 11:30 AM EST Office Visit [address] [phone] Edgar Clements MD [address] [place] [address] 03/03/2023 8:15 AM EST Cardiac Studies Cardiac Studies, [facility] 132 [facility] [place] [address] 04/12/2023 11:30 AM EST Appointment Interventional Radiology [facility], [place] [place] [address] 04/12/2023 3:30 PM EST Procedure Only Urology, [facility] 132 [facility] [place] [address] Travon Canales MD [address] [place] [address] [place] [address] 05/17/2023 1:00 PM EDT Office Visit Pulmonary Medicine, [facility] 132 [facility] [place] [address] Tino Stapleton MD [address] [place] [address] 06/07/2023 11:50 AM EDT Office Visit [address] [place] [phone] Edgar Clements MD [address] [place] [address] Scheduled Orders Name Type Priority Associated Diagnoses [...] and were consensually agreed upon. Care Teams Sports Book Server Relationship Specialty Start Date End Date Edgar Clements MD [address] [place] [address] PCP - General Family Medicine 07/03/20 documented as of this encounter
--- OUTSIDE RECORDS SUMMARY | 2023-06-02 11:47 | External Medical Summary | Summary of Care ---
Author Name Unknown Organization [facility] Address [address] [facility] [place] [address] Phone [phone] Care Team Providers Care Microsoft Dynamics Developer Name Role Phone Edgar Clements MD Primary Care P [facility] Reason for Referral * Evaluate & Treat - Unlimited Visits (Within 10 days (routine)) - Authorized Specialty Diagnoses / Procedures Referred By Contac t Referred To Contact Pulmonary Diseases / Pulmonary Diagnoses Pleural effusion, right Loss of weight Chronic cough Prostate cancer (HCC) Edgar Clements MD [address] [place] [address] Referral ID Status Reason Start Date Expiration Date Visits Requested Visits Authorized [id number] Authorized Specialty Services Required 3 999 999 [...] Procedures IR CHEST THORACENTESIS Edgar Clements MD [address] [place] [address] Referral ID Status Reason Start Date Expiration Date V isits Requested Visits Authorized [id number] Authorized 02/01/2023 999 999 Reason for Visit * Reason Onset Date Comments abnormal imaging study 01/25/2023 Encounter Details Date Type Department Care Team ([facility] st Contact Info) Description 01/25/2023 Telephone [facility] [address] [place] [address] Edgar Clements MD [address] [place] [address] abnormal imaging study Allergies Active Allergy [...] chronic, stage V (GFR under 15 ml/min) ([facility]) take 2 pills 3 x daily 180 Tab 11 10/26/2018 Active Sodium Chloride Flush (NORMAL SALINE FLUSH) 0.9 % SOLN injection FLUSH ONCE DAILY WITH 10ml 300 mL 1 03/12/2019 Active Additional Information Patient not taking.Reported on 01/02/2023 Leuprolide Acetate (3 Month) 22.5 MG Subcutaneous Kit ([place]) Inject 22.5 mg under the skin. Every 3 months 0 11/18/2020 Active amLODIPine Besylate 5 MG Oral Tablet (Norvasc) TAKE 1 TABLET BY MOUTH ONCE DAILY IN THE MORNING 90 Tablet 2 02/23/2022 Active Incruse Ellipta 62.5 MCG/ACT Inhalation Aerosol Powder Breath Activated (umeclidinium [place])Indications :Chronic obstructive pulmonary disease, unspecified COPD type ([facility]) Inhale 1 Puff by mouth in [...] mRNA, LNP-s, No Pre serve, 2-Dose Series (Selo Reserva) 01/19/2021,06/10/2020,05/20/2020 Pneumococcal Conjugate Vacci ne, 20-valent ([id number]) 03/16/2022 Pneumococcal Polysaccharide PPV23 (Pneumovax) 12/28/2017 SEASONAL [...] Notes * Telephone Encounter - Otilio Heredia OSA [...] dialysis. Please notify patient. Prescription sent to [place] pharmacy. * Telephone Encounter - Felisa Delatorre [...] call- CT results Caller was transferred to [facility] at the nurse line. * Telephone [...] in. This needs to be done at [facility]. On the same day of the thoracentesis patient should stop by the lab to have blood work done as well. This blood work is part of the evaluation of the right-sided pleural fluid. documented in this encounter Plan of Treatment Upcoming Encounters Date Type Department Care Team (Late st Contact Info) Description 02/01/2023 11:30 AM EST Appointment Interventional Radiology [facility], [place] 1st Floor [address] [place] [address] 02/10/2023 11:30 AM EST Office Visit [address] [phone] Edgar Clements MD [address] [place] [address] 03/03/2023 8:15 AM EST Cardiac Studies Cardiac Studies, [facility] 132 [facility] [place] [address] 04/12/2023 11:30 AM EST Appointment Interventional Radiology [facility], [facility] 1st Floor [address] [place] [address] 04/12/2023 3:30 PM EST Procedure Only Urology, [facility] 132 [facility] [place] [address] Travon Canales MD 27 [facility] [address] [place] [address] 06/07/2023 11:50 AM EDT Office Visit [address] [phone] Edgar Clements MD [address] [place] [address] Scheduled Orders Name Type Priority Associated Diagnoses [...] and were consensually agreed upon. Care Teams Microsoft Dynamics Developer Relationship Specialty Start Date End [place] [address] PCP - General Family Medicine 07/03/20 documented as of this encounter
--- OUTSIDE RECORDS SUMMARY | 2023-06-02 11:47 | External Medical Summary | Summary of Care ---
Author Name Unknown Organization [facility] Address [address] [place] [place] [address] Phone [phone] Care Team Providers Care Raimann Machine Operator Name Role Phone Edgar Clements MD Primary Care P [facility] Reason for Referral * Evaluate & Treat - Unlimited Visits (Within 10 days (routine)) - Authorized Specialty Diagnoses / Procedures Referred By Contac t Referred To Contact Pulmonary Diseases / Pulmonary Diagnoses Pleural effusion, right Loss of weight Chronic cough Prostate cancer (HCC) Edgar Clements MD [address] [place] [address] Referral ID Status Reason Start Date Expiration Date Visits Requested Visits Authorized [id number] Authorized Specialty Services Required 3 999 999 [...] Procedures IR CHEST THORACENTESIS Edgar Clements MD [address] [place] [address] Referral ID Status Reason Start Date Expiration Date V isits Requested Visits Authorized [id number] Authorized 02/01/2023 999 999 Reason for Visit * Reason Onset Date Comments abnormal imaging study 01/25/2023 Encounter Details Date Type Department Care Team ([facility] st Contact Info) Description 01/25/2023 Telephone [facility] [address] [place] [address] Edgar Clements MD [address] [place] [address] abnormal imaging study Allergies Active Allergy [...] stage V (GFR under 15 ml/min) ([facility]) take 2 pills 3 x daily 180 Tab 11 10/26/2018 Active Sodium Chloride Flush (NORMAL SALINE FLUSH) 0.9 % SOLN injection FLUSH ONCE DAILY WITH 10ml 300 mL 1 03/12/2019 Active Additional Information Patient not taking.Reported on 01/02/2023 Leuprolide Acetate (3 Month) 22.5 MG Subcutaneous Kit (Gastrofy) Inject 22.5 mg under the skin. Every 3 months 0 11/18/2020 Active amLODIPine Besylate 5 MG Oral Tablet (Norvasc) TAKE 1 TABLET BY MOUTH ONCE DAILY IN THE MORNING 90 Tablet 2 02/23/2022 Active Incruse Ellipta 62.5 MCG/ACT Inhalation Aerosol Powder Breath Activated (umeclidinium [place])Indications :Chronic obstructive pulmonary disease, unspecified COPD type ([facility]) Inhale 1 Puff by mouth in the [...] mRNA, LNP-s, No Pre serve, 2-Dose Series (eCommHub) 01/19/2021,06/10/2020,05/20/2020 Pneumococcal Conjugate Vacci ne, 20-valent ([id number]) 03/16/2022 Pneumococcal Polysaccharide PPV23 (Pneumovax) 12/28/2017 SEASONAL [...] encounter Miscellaneous Notes * Telephone Encounter - InaistTia, BEREKET - 01/27/2023 8:59 AM EST Called and spoke with patient and made him aware of information below. Informed me that he already in scheduled with pulmonary for April. Wanted me to let you know he has a procedure on Monday02/01/23 at [place] to drain fluid out of his lungs. [...] dialysis. Please notify patient. Prescription sent to [place] pharmacy. * Telephone Encounter - Felisa Delatorre [...] call- CT results Caller was transferred to [facility] at the nurse line. * Telephone [...] in. This needs to be done at [facility]. On the same day of the thoracentesis patient should stop by the lab to have blood work done as well. This blood work is part of the evaluation of the right-sided pleural fluid. documented in this encounter Plan of Treatment Upcoming Encounters Date Type Department Care Team (Late st Contact Info) Description 02/01/2023 11:30 AM EST Appointment Interventional Radiology [facility], [facility] 1st Floor [address] [place] [phone] 02/10/2023 11:30 AM EST Office Visit [address] [phone] Edgar Clements MD [address] [place] [address] 03/03/2023 8:15 AM EST Cardiac Studies Cardiac Studies, [facility] 132 [place] [address] 04/12/2023 11:30 AM EST Appointment Interventional Radiology [facility], [facility] 1st [facility] [address] [place] [phone] 04/12/2023 3:30 PM EST Procedure Only Urology, [facility] 132 [place] [address] Travon Canales MD [address] [place] [address] 05/17/2023 1:00 PM EDT Office Visit Pulmonary Medicine, [facility] 132 [place] [address] Tino Stapleton MD [address] [facility] [place] [address] 06/07/2023 11:50 AM EDT Office Visit [address] [phone] Edgar Clements MD [address] [place] [address] Scheduled Orders Name Type Priority Associated Diagnoses [...] exists DISCUSS TOBACCO CESSATION (REFER TO SMARTSET #[id number]) 06/04/2023 06/03/2022 Depression Screening 06/04/2023 06/03/2022 O2 [...] and were consensually agreed upon. Care Teams Raimann Machine Operator Relationship Specialty Start Date End Date Edgar Clements MD [address] [place] [address] PCP - General Family Medicine 07/03/20 documented as of this encounter
--- OUTSIDE RECORDS SUMMARY | 2023-06-02 11:47 | External Medical Summary | Summary of Care ---
Author Name Unknown Organization [facility] Address [address] [facility] [place] [address] Phone [phone] Care Team Providers Care Customer Solutions Teammate Name Role Phone Edgar Clements MD Primary Care P [facility] Reason for Referral * Evaluate & Treat - Unlimited Visits (Within 10 days (routine)) - Authorized Specialty Diagnoses / Procedures Referred By Contac t Referred To Contact Pulmonary Diseases / Pulmonary Diagnoses Pleural effusion, right Loss of weight Chronic cough Prostate cancer (HCC) Edgar Clements MD [address] [place] [address] Referral ID Status Reason Start Date Expiration Date Visits Requested Visits Authorized [id number] Authorized Specialty Services Required 3 999 999 [...] Procedures IR CHEST THORACENTESIS Edgar Clements MD [address] [place] [address] Referral ID Status Reason Start Date Expiration Date V isits Requested Visits Authorized [id number] Authorized 02/01/2023 999 999 Reason for Visit * Reason Onset Date Comments abnormal imaging study 01/25/2023 Encounter Details Date Type Department Care Team ([facility] st Contact Info) Description 01/25/2023 Telephone [facility] [address] [place] [address] Edgar Clements MD [address] [place] [address] abnormal imaging study Allergies Active Allergy [...] Acetate (3 Month) 22.5 MG Subcutaneous Kit (Memonic) Inject 22.5 mg under the skin. Every 3 months 0 11/18/2020 Active amLODIPine Besylate 5 MG Oral Tablet (Norvasc) TAKE 1 TABLET BY MOUTH ONCE DAILY IN THE MORNING 90 Tablet 2 02/23/2022 Active Incruse Ellipta 62.5 MCG/ACT Inhalation Aerosol Powder Breath Activated (umeclidinium [place])Indications :Chronic obstructive pulmonary disease, unspecified COPD type ([facility] [...] mRNA, LNP-s, No Pre serve, 2-Dose Series (OncoHoldings) 01/19/2021,06/10/2020,05/20/2020 Pneumococcal Conjugate Vacci ne, 20-valent ([id number]) 03/16/2022 Pneumococcal Polysaccharide PPV23 (Pneumovax) 12/28/2017 SEASONAL [...] dialysis. Please notify patient. Prescription sent to [place] pharmacy. * Telephone Encounter - Felisa Delatorre [...] call- CT results Caller was transferred to [facility] at the nurse line. * Telephone [...] in. This needs to be done at [facility]. On the same day of the thoracentesis patient should stop by the lab to have blood work done as well. This blood work is part of the evaluation of the right-sided pleural fluid. documented in this encounter Plan of Treatment Upcoming Encounters Date Type Department Care Team (Late st Contact Info) Description 02/01/2023 11:30 AM EST Appointment Interventional Radiology [facility] [place], [place] 1st Floor [address] [place] [address] 02/10/2023 11:30 AM EST Office Visit [facility] [address] [place] [phone] Edgar Clements MD [address] [place] [address] 03/03/2023 8:15 AM EST Cardiac Studies Cardiac Studies, [facility] 132 [facility] [place] [address] 04/12/2023 11:30 AM EST Appointment Interventional Radiology [facility] [place], [facility] 1st Floor [address] [facility] [place] [address] 04/12/2023 3:30 PM EST Procedure Only Urology, [facility] 132 [place] [facility] [place] [address] Travon Canales MD 27 [facility] [place] [address] [place] [address] 06/07/2023 11:50 AM EDT Office Visit [facility] [address] [place] [phone] Edgar Clements MD [address] [place] [address] Scheduled Orders Name Type Priority Associated Diagnoses [...] and were consensually agreed upon. Care Teams Customer Solutions Teammate Relationship Specialty Start Date End Date Edgar Clements MD [address] [place] [address] PCP - General Family Medicine 07/03/20 documented as of this encounter
--- OUTSIDE RECORDS SUMMARY | 2023-06-02 11:48 | External Medical Summary | Summary of Care ---
Author Name Unknown Organization [facility] Address [address] [place] [address] Phone [phone] Care Team Providers Care Manager Trade Marketing Name Role Phone Edgar Gibbs MD Primary Care P rovider Encounter Details Date Type Department Care Team (Latest Contact Info) Description 01/04/2023 1:03 PM EST - 01/04/2023 11:59 PM EST Hospital Encounter Radiology, [place] [address] [place] [address] Arrived Discharge Disposition: Home - Self Care Allergies Active Allergy Reactions Criticality Noted Date Comments Latex 07/19/2019 Pantoprazole Sodium Edema face/lips/tongue High /0 02/2014 documented as of this encounter (statuses as of 01/05/2023) Medications Medication Sig Dispensed Refills Start Date End Date Status Cholecalciferol 2000 units Capsule Take 1 Capsule by mouth in the morning. 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 Every 3 months 0 11/18/2020 Active amLODIPine Besylate 5 MG Oral Tablet (Norvasc) TAKE 1 TABLET BY MOUTH ONCE DAILY IN THE MORNING 90 Tablet 2 02/23/2022 Active Ventolin HFA 108 (90 Base) MCG/ACT Inhalation Aerosol SolutionIndications: COPD exacerbation (HCC) Inhale 2 Puffs by mouth every 4 hours as needed for Cough, Shortness of Breath or Wheezing. 18 g 5 03/02/2022 Active Additional Information Patient not taking.Reported on 06/03/2022 Incruse Ellipta 62.5 MCG/ACT Inhalation Aerosol Powder Breath Activated (umeclidinium [place])Indications: Chronic obstructive pulmonary disease, unspecified COPD type [...] as of this encounter (statuses as of 01/05/2023) Active Problems Problem Noted Date Diagnosed Date Pleural effusion, right 01/02/2023 Chronic obstructive pulmonary disease 03/02/2022 Tobacco user 08/27/2021 Bladder stones 08/27/2021 DNR [...] as of this encounter (statuses as of 01/05/2023) Resolved Problems Problem Noted Date Diagnosed Date Resolved Date Atypical pneumonia 03/02/2022 3 Demand ischemia 03/02/2022 [...] as of this encounter (statuses as of 01/05/2023) Immunizations Name Administration Dates Next Due COVID-19 mRNA, LNP-s, No Pre serve, 2-Dose Series (PrimeRevenue) 01/19/2021,06/10/2020,05/20/2020 Pneumococcal Conjugate Vacci ne, 20-valent ([id number]) 03/16/2022 Pneumococcal Polysaccharide PPV23 (Pneumovax) 12/28/2017 SEASONAL [...] or making decisions? (5 years old or older No 04/15/2015 documented as of this encounter Plan of Treatment Upcoming Encounters Date Type Department Care Team (Late st Contact Info) Description 03/03/2023 8:15 AM EST Cardiac Studies Cardiac Studies, [address] [place] [address] 04/12/2023 3:30 PM EST Procedure Only Urology, [facility] 132 [facility] [place] [address] Travon Canales MD [address] [facility] [place] [address] [place] [address] 06/07/2023 11:50 AM EDT Office Visit [facility] [address] [place] [address] Edgar Gibbs MD [address] [place] [address] Pending Results Name Type Priority Associated Diagnoses Date /Time XR CHEST 2 VIEWS Medical Imaging Routine Pleural effusion, right 01/04/2023 2:42 PM EST Health Maintenance Due Date Last Done Comments Alpha-1 Antitrypsin 05/18/1963 Hepatitis C Screening 05/18/1963 *COPD SEVERITY VERIFIED BY PFT 03/05/2022 COVID-19 Vaccine ( season) 2022 01/19/2021, 06/10/2020, 05/20/2020 Influenza Vaccine (FLU shot) (#1) 2022 12/22/2020, 12/22/2020, 12/28/2018, Additional history exists DISCUSS TOBACCO CESSATION (REFER TO SMARTSET #5597) 06/04/2023 06/03/2022 Depression Screening 06/04/2023 06/03/2022 O2 ASSESSMENT COMPLETED IN PAST YEAR FOR COPD 01/05/2024 01/04/2023 DTaP,Tdap,and Td Vaccines (2 - Td or Tdap) 12/29/2027 12/28/2017 Pneumococcal Vaccine: 65+ Years Completed 03/16/2022, 12/28/2017 GARDASIL-HPV IMMUNIZATION SERIES Aged Out No longer eligible based on patient's age to complete this topic Hepatitis B Aged Out No longer eligi ble based on patient's age to complete this [...] and were consensually agreed upon. Care Teams Manager Trade Marketing Relationship Specialty Start Date End Date Edgar Gibbs MD [address] [place] [address] PCP - General Family Medicine 07/03/20 documented as of this encounter
--- OUTSIDE RECORDS SUMMARY | 2023-06-02 11:48 | External Medical Summary | Summary of Care ---
Author Name Unknown Organization [facility] Address [address] [facility] [place] [address] Phone [phone] Care Team Providers Care Dental Hygiene Teacher Name Role Phone Edgar Gibbs MD Primary Care P rovider Reason for Referral * Precert (Within 10 days (routine)) - Authorized Specialty Diagnoses / Procedures Referred By Contac t Referred To Contact Radiology Diagnoses Pleural effusion, right Procedures CT CHEST WO CONTRAST Edgar Gibbs MD [address] [place] [id number] Referral ID Status Reason Start Date Expiration Date V isits Requested Visits Authorized [id number] Authorized 01/09/2023 999 999 Reason for Visit * Reason Onset Date Comments Abnormal Test Results 01/09/2023 LMOM 01/18 Encounter Details Date Type Department Care Team ([facility] Contact Info) Description 01/09/2023 Telephone Family Practice [address] [phone] Edgar Gibbs MD [address] [place] [phone] Abnormal Test Results (LMOM 01/18/23) Allergies Active Allergy Reactions Criticality Noted Date Comments Latex 07/19/2019 Pantoprazole Sodium Edema face/lips/tongue High 04/0 02/2014 documented as of this encounter (statuses as of 01/18/2023) Medications Medication Sig Dispensed Refills Start Date [...] Acetate (3 Month) 22.5 MG Subcutaneous Kit ([employer]) Inject 22.5 mg under the skin. Every 3 months 0 11/18/2020 Active amLODIPine Besylate 5 MG Oral Tablet (Norvasc) TAKE 1 TABLET BY MOUTH ONCE DAILY IN THE MORNING 90 Tablet 2 02/23/2022 Active Ventolin HFA 108 (90 Base) MCG/ACT Inhalation Aerosol SolutionIndications: COPD exacerbation ([facility]) Inhale 2 Puffs by mouth every 4 hours as needed for Cough, Shortness of Breath or Wheezing. 18 g 5 03/02/2022 Active Additional Information Patient not taking.Reported on 06/03/2022 Incruse Ellipta 62.5 MCG/ACT Inhalation Aerosol Powder Breath Activated (umeclidinium [place])Indications: Chronic obstructive pulmonary disease, unspecified COPD type [...] as of this encounter (statuses as of 01/18/2023) Active Problems Problem Noted Date Diagnosed Date [...] as of this encounter (statuses as of 01/18/2023) Resolved Problems Problem Noted Date Diagnosed Date [...] as of this encounter (statuses as of 01/18/2023) Immunizations Name Administration Dates Next Due COVID-19 mRNA, LNP-s, No Pre serve, 2-Dose Series (Pfizer) 01/19/2021,06/10/2020,05/20/2020 Pneumococcal Conjugate Vacci ne, 20-valent ([id number]) 03/16/2022 Pneumococcal Polysaccharide PPV23 (Pneumovax) 12/28/2017 SEASONAL [...] encounter Miscellaneous Notes * Telephone Encounter - Michelle Perea OSA - 01/18/2023 9:59 AM EST Reason for patient's call: returning call for results Caller was transferred to [place] at the nurse line. * Telephone Encounter - Tia Mendieta CCMA - 01/18/2023 9:55 AM EST Attempted to reach patient and give below information. No answer left message for a call back. * Telephone Encounter - Edgar Gibbs MD - 01/09/2023 12:09 PM EST Called patient to inform him about abnormal chest x-ray, left him voicemail at his home number. Right pleural effusion persist. Will order chest CT scan without contrast. documented in this encounter Plan of Treatment Upcoming Encounters Date Type Department Care Team (Late st Contact Info) Description 03/03/2023 8:15 AM EST Cardiac Studies Cardiac Studies, [address] [place] [address] 04/12/2023 11:30 AM EST Appointment Interventional Radiology [facility] [place] [facility] 1st Floor [address] [facility] [place] [phone] 04/12/2023 3:30 PM EST Procedure Only Urology, [facility] [address] [place] [address] Travon Canales MD [address] [place] [address] [place] [address] 06/07/2023 11:50 AM EDT Office Visit [facility] [address] [place] [phone] Edgar Gibbs MD [address] [place] [address] Pending Results Name Type Priority Associated Diagnoses Date /Time CT CHEST WO CONTRAST Medical Imaging Routine Pleural effusion, right 01/17/2023 10:53 AM EST Health Maintenance Due Date Last [...] and were consensually agreed upon. Care Teams Dental Hygiene Teacher Relationship Specialty Start Date End Date Edgar Gibbs MD [address] [place] [address] PCP - General Family Medicine 07/03/20 documented as of this encounter
--- OUTSIDE RECORDS SUMMARY | 2023-06-02 11:48 | External Medical Summary | Summary of Care ---
Author Name Unknown Organization [facility] Address [address] [facility] [address] Phone [phone] Care Team Providers Care Addiction Specialist Name Role Phone Edgar Gibbs MD Primary Care P rovider Encounter Details Date Type Department Care Team (Late st Contact Info) Description 01/03/2023 Result Scan Unspecified Department Pako Ramos MD [address] [facility] [address] <No scans attached> Allergies Active Allergy Reactions Criticality Noted Date Comments Latex 07/19/2019 Pantoprazole Sodium Edema face/lips/tongue High 04/0 02/2014 documented as of this encounter (statuses as of 01/09/2023) Medications Medication Sig Dispensed Refills Start Date [...] Acetate (3 Month) 22.5 MG Subcutaneous Kit (FIZZA) Inject 22.5 mg under the skin. Every [...] MCG/ACT Inhalation Aerosol Powder Breath Activated (umeclidinium [place])Indications: Chronic obstructive pulmonary disease, unspecified COPD type [...] as of this encounter (statuses as of 01/09/2023) Active Problems Problem Noted Date Diagnosed Date [...] as of this encounter (statuses as of 01/09/2023) Resolved Problems Problem Noted Date Diagnosed Date [...] as of this encounter (statuses as of 01/09/2023) Immunizations Name Administration Dates Next Due COVID-19 mRNA, LNP-s, No Pre serve, 2-Dose Series ([employer]) 01/19/2021,06/10/2020,05/20/2020 Pneumococcal Conjugate Vacci ne, 20-valent ([id number]) 03/16/2022 Pneumococcal Polysaccharide PPV23 (Pneumovax) 12/28/2017 SEASONAL [...] 8:15 AM EST Cardiac Studies Cardiac Studies, [facility] [address] [facility] [place] [address] 04/12/2023 3:30 PM EST Procedure Only Urology, [facility] [address] [facility] [place] [address] Travon Canales MD [address] [facility] [place] [address] [place] [address] 06/07/2023 11:50 AM EDT Office Visit [facility] [address] [place] [phone] Edgar Gibbs MD [address] [place] [address] Health Maintenance Due Date Last Done Comments [...] Date/Time Associated Diagnosis Comments OUTSIDE LAB RESULTS 01/03/2023 documented in this encounter Results * OUTSIDE LAB RESULTS (01/03/2023) 01/03/2023 Pako Ramos MD LABORATORY documented in this encounter Advance Directives Latest Code Status on File Code Status Date Activated Date Inactivated Comments Full Code 04/15/2015 4:40 PM 04/16/2015 5:24 PM This order reflects the patients wishes and were consensually agreed upon. Care Teams Addiction Specialist Relationship Specialty Start Date End Date Edgar Gibbs MD [address] [place] [phone] PCP - General Family Medicine 07/03/20 documented as of this encounter
--- OUTSIDE RECORDS SUMMARY | 2023-06-02 11:48 | External Medical Summary | Summary of Care ---
Author Name Unknown Organization [facility] Address [address] [facility] [place] [address] Phone [phone] Care Team Providers Care Hall Worker Name Role Phone Edgar Gibbs MD Primary Care P rovider Reason for Referral * Precert (Within 10 days (routine)) - Authorized Specialty Diagnoses / Procedures Referred By Contac t Referred To Contact Radiology Diagnoses Pleural effusion, right Procedures CT CHEST WO CONTRAST Edgar Gibbs MD [address] [place] [phone] Referral ID Status Reason Start Date Expiration Date V isits Requested Visits Authorized [id number] Authorized 01/09/2023 999 999 Reason for Visit * Reason Onset Date Comments Abnormal Test Results 01/09/2023 LMOM 01/18 Encounter Details Date Type Department Care Team ([facility] Contact Info) Description 01/09/2023 Telephone Family Practice [address] [phone] Edgar Gibbs MD [address] [place] [phone] Abnormal Test Results (LMOM 01/18/23) Allergies [...] Acetate (3 Month) 22.5 MG Subcutaneous Kit ([employer]) Inject 22.5 mg under the skin. Every 3 months 0 11/18/2020 Active amLODIPine Besylate 5 MG Oral Tablet (Norvasc) TAKE 1 TABLET BY MOUTH ONCE DAILY IN THE MORNING 90 Tablet 2 02/23/2022 Active Ventolin HFA 108 (90 Base) MCG/ACT Inhalation Aerosol SolutionIndications: COPD exacerbation ([facility]) Inhale 2 Puffs by mouth every 4 hours as needed for Cough, Shortness of Breath or Wheezing. 18 g 5 03/02/2022 Active Additional Information Patient not taking.Reported on 06/03/2022 Incruse Ellipta 62.5 MCG/ACT Inhalation Aerosol Powder Breath Activated (umeclidinium [place])Indications: Chronic obstructive pulmonary disease, unspecified COPD type [...] (Pfizer) 01/19/2021,06/10/2020,05/20/2020 Pneumococcal Conjugate Vacci ne, 20-valent ([id number]) 03/16/2022 Pneumococcal Polysaccharide PPV23 (Pneumovax) 12/28/2017 SEASONAL [...] encounter Miscellaneous Notes * Telephone Encounter - Daphney Grimm LPN - 01/18/2023 10:01 AM EST Patient returned call. Informed of message. Verbalized understanding. * Telephone Encounter - Michelle Perea OSA - 01/18/2023 9:59 AM EST Reason for patient's call: returning call for results Caller was transferred to D[place] at the nurse line. * Telephone Encounter [...] 8:15 AM EST Cardiac Studies Cardiac Studies, [facility] [address] [facility] [place] [address] 04/12/2023 11:30 AM EST Appointment Interventional [place]iology [facility] [place] [facility] 1st Floor [address] [place] [phone] 04/12/2023 3:30 PM EST Procedure Only Urology, [facility] [address] [facility] [place] [address] Travon Canales MD [address] [facility] [place] [address] [place] [address] 06/07/2023 11:50 AM EDT Office Visit [facility] [address] [place] [phone] Edgar Gibbs MD [address] [place] [address] Pending Results Name Type Priority Associated Diagnoses [...] exists DISCUSS TOBACCO CESSATION (REFER TO SMARTSET #[id number]) 06/04/2023 06/03/2022 Depression Screening 06/04/2023 06/03/2022 O2 [...] and were consensually agreed upon. Care Teams Hall Worker Relationship Specialty Start Date End Date Edgar Gibbs MD [address] [place] [phone] PCP - General Family Medicine 07/03/20 documented as of this encounter
--- OUTSIDE RECORDS SUMMARY | 2023-06-02 11:48 | External Medical Summary | Summary of Care ---
Author Name Unknown Organization [facility] Address [address] [place] [address] Phone [phone] Care Team Providers Care Blending Machine Operator Name Role Phone Edgar Gibbs MD Primary Care P rovider Reason for Referral * Precert (Within 10 days (routine)) - Authorized Specialty Diagnoses / Procedures Referred By Contac t Referred To Contact Cardiac Studies Diagnoses Pleural effusion, right Procedures ECHO, COMPLETE (2D), TRANS-THORACIC Edgar Gibbs MD [address] [place] [id number] Referral ID Status Reason Start Date Expiration Date V isits Requested Visits Authorized [id number] Authorized Precert 01/09/2023 999 999 Reason for Visit * Reason Comments Follow Up Encounter Details Date Type Department Care Team ([facility] st Contact Info) Description 01/02/2023 3:30 PM EST Office Visit Family [address] [phone] Edgar Gibbs MD [address] [place] [address] [phone] 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 (HCC)*; Chronic obstructive pulmonary disease, unspecified COPD type (HCC); ESRD (end stage renal disease) on dialysis (HCC); Pleural effusion, right Allergies Active Allergy Reactions Criticality Noted Date Comments Latex 07/19/2019 Pantoprazole Sodium Edema face/lips/tongue High 04/0 02/2014 documented as of this encounter (statuses as of 01/02/2023) Medications Medication Sig Dispensed Refills Start Date End Date Status Cholecalciferol 2000 units Capsule Take 1 Capsule by mouth in the morning. 30 Cap 3 03/28/2017 Active Calcium Acetate, Phos Binder, 667 MG TABSIndications:Ki dney disease, chronic, stage V (GFR under 15 ml/min) ([facility]) take 2 pills 3 x daily 180 Tab 11 10/26/2018 Active Sodium Chloride Flush (NORMAL SALINE FLUSH) 0.9 % SOLN injection FLUSH ONCE DAILY WITH 10ml 300 mL 1 03/12/2019 Active Additional Information Patient not taking.Reported on 01/02/2023 Leuprolide Acetate (3 Month) 22.5 MG Subcutaneous Kit ([employer]) Inject 22.5 mg under the skin. Every 3 months 0 11/18/2020 Active amLODIPine Besylate 5 MG Oral Tablet (Norvasc) TAKE 1 TABLET BY MOUTH ONCE DAILY IN THE MORNING 90 Tablet 2 02/23/2022 Active Ventolin HFA 108 (90 Base) MCG/ACT Inhalation Aerosol SolutionIndication s:COPD exacerbation ([facility]) Inhale 2 Puffs by mouth every 4 hours as needed for Cough, Shortness of Breath or Wheezing. 18 g 5 03/02/2022 Active Additional Information Patient not taking.Reported on 06/03/2022 Incruse Ellipta 62.5 MCG/ACT Inhalation Aerosol Powder Breath Activated (umeclidinium Perry)Indication s:Chronic obstructive pulmonary disease, unspecified COPD type ([facility]) Inhale 1 Puff by mouth in [...] ONCE DAILY 90 Tablet 3 11/22/2022 Active Doxycycline Hyclate 100 MG Oral CapsuleIndications :SOB (shortness of breath),Pneumonia due to COVID-19 virus Take 1 Capsule by mouth in the morning and 1 Capsule before bedtime. 14 Capsule 0 12/16/2022 3 Discontinue d(Patient preference/ discontinua tion) documented as of this encounter (statuses as of 01/02/2023) Active Problems Problem Noted Date Diagnosed Date [...] as of this encounter (statuses as of 01/02/2023) Resolved Problems Problem Noted Date Diagnosed Date [...] MELODY (acute kidney injury) 05/06/2014 Hypertension, essential 0408/2015 Use of leuprolide acetate (Lupron) 12/27/2016 documented as of this encounter (statuses as of 01/02/2023) Immunizations Name Administration Dates Next Due COVID-19 mRNA, LNP-s, No Pre serve, 2-Dose Series (Pfizer) 01/19/2021,06/10/2020,05/20/2020 Pneumococcal Conjugate Vacci ne, 20-valent ([id number]) 03/16/2022 Pneumococcal Polysaccharide PPV23 (Pneumovax) 12/28/2017 SEASONAL [...] Every Day Cigarettes 0.1 Smokeless Tobacco: Never Tobacco Cessation:Ready to Q uit: Not Asked; Counseling Given: Not Answered Alcohol Use Standard Drinks/Week Comments No 0 [...] Sign Reading Time Taken Comments Blood Pressure 148/80 01/02/2023 3:14 PM EST Pulse 66 01/02/2023 3:14 PM EST Temperature 36.8 C (98.2 F) 01/02/2023 3:14 PM ES T Respiratory Rate 16 01/02/2023 3:14 PM EST Oxygen Saturation 97% 01/02/2023 3:14 PM EST Inhaled Oxygen Concentration - - Weight 62.8 kg (138 lb 6.4 oz) 01/02/2023 3:14 P M EST Height - - Body Mass Index 24.52 12/20/2022 4:00 PM EDT documented in this [...] Progress Notes * Edgar Gibbs MD - 01/02/2023 3:22 PM EST Subjective: Matthew Rowe is a 77 year old male. Chief Complaint Patient presents with Follow Up HPI: Patient comes to the office to follow up on recent shortness of breath and right pneumonia. [facility] started on doxycycline for 7 days. Overall he feels better. Denies phlegm production or dyspnea on exertion. For pleural effusion noted he was prescribed furosemide 10mg daily for 3 days. He felt better. Denies any lower extremity edema. Denies cough or phlegm produc tion. Denies fevers or chills. Overall he feels better. Denies dyspnea on exertion or orthopnea. Denies paroxysmal nocturnal dyspnea. Receiving hemodialysis on Tuesdays, and Saturdays and adjustments have been made to remove more fluid. He reports he is breathing easier. Echocardiogram from 2014 done at [facility] showed LV ejection fraction 50-55% but there was apical and inferior akinesis documented at that time. Patient denies any chest pain or palpitations. Denies any past history of CAD. Regarding COPD: On Incruse Ellipta 1 inhalation daily. Also has Ventolin inhaler but has not had the need to use it. Regarding prostate cancer: Being followed by Dr Canales at q 6 months. PSA results are pending. Still smoking 3-4 cig per day, tryuing to cut back. He smokes typically in the morning, noon time and then evening time around mealtime. PMH: Patient Active Problem List Diagnosis Code Chronic anemia D64.9 HTN, goal below 140/90 I10 Kidney disease, chronic, stage V (GFR under 15 ml/min) ([facility]) N18.5 Prostate cancer ([facility]) C61 Hydronephrosis, right N13.30 Dialysis patient ([facility]) Z99.2 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 ([facility]) I12.0, N18.6, Z99.2 DNR (do not resuscitate) Z66 ESRD (end stage renal disease) on dialysis ([facility]) N18.6, Z99.2 Tobacco user Z72.0 Bladder stones N21.0 Chronic obstructive pulmonary disease ([facility]) J44.9 Pleural effusion, right J90 Current Outpatient Medications Medication Sig Dispense Refill Cholecalciferol 2000 units Capsule Take 1 Capsule by mouth in the morning. 30 Cap 3 Calcium Acetate, Phos Binder, 667 MG TABS take 2 pills 3 x daily 180 Tab 11 Leuprolide Acetate (3 Month) 22.5 MG Subcutaneous Kit (Eligard) Inject 22.5 mg under the skin. Every 3 months amLODIPine Besylate 5 MG Oral Tablet (Norvasc) TAKE 1 TABLET BY MOUTH ONCE DAILY IN THE MORNING 90 Tablet 2 Incruse Ellipta 62.5 MCG/ACT Inhalation Aerosol Powder Breath Activated (umeclidinium Perry) Inhale 1 Puff by mouth in the morning. 30 Each 11 Citalopram Hydrobromide 10 MG Oral Tablet (CeleXA) TAKE 1 TABLET BY MOUTH ONCE DAILY AT BEDTIME 30 Tablet 5 Atenolol 50 MG Oral Tablet (Tenormin) TAKE 1 TABLET BY MOUTH ONCE DAILY AT BEDTIME 90 Tablet 1 Nephro-Farzana 0.8 MG Oral Tablet TAKE ONE TABLET BY MOUTH ONCE DAILY 90 Tablet 3 Sodium Chloride Flush (NORMAL SALINE FLUSH) 0.9 % SOLN injection FLUSH ONCE DAILY WITH 10ml (Patient not taking: Reported on 01/02/2023) 300 mL 1 Ventolin HFA 108 (90 Base) MCG/ACT Inhalation Aerosol Solution Inhale 2 Puffs by mouth every 4 hours as needed for Cough, Shortness of Breath or Wheezing. (Patient not taking: Reported on 06/03/2022) 18 g 5 No current facility-administered medications for this visit. Past Medical History: Diagnosis Date Hypertension, essential INFORMATION 04/13 [facility]- kidney failure Use of leuprolide acetate (Lupron) Past Surgical History: Procedure Laterality Date CYSTOSCOPY 07-08-2014 IR DRAINAGE CATHETER CHANGE Right 06/10/2015 CHANGE OF PERCUTANEOUS TUBE OR DRAINAGE CATHETER WITH XRAY AND CONTRAST MEDIUM performed by Gera Mcdaniel MD at [facility] [place] IR DRAINAGE CATHETER CHANGE Right 08/24/2016 CHANGE OF PERCUTANEOUS TUBE OR DRAINAGE CATHETER WITH XRAY AND CONTRAST MEDIUM performed by Gera Mcdaniel MD at [facility] [place] IR GENITORINARY NEPHRO/CYSTO/URETERAL 01/18/2019 IR GENITORINARY NEPHRO/CYSTO/URETERAL 04/01/2019 IR GENITORINARY NEPHRO/CYSTO/URETERAL 08/02/2019 IR GENITORINARY NEPHRO/CYSTO/URETERAL 12/13/2019 IR GENITORINARY NEPHRO/CYSTO/URETERAL 04/29/2020 IR GENITORINARY NEPHRO/CYSTO/URETERAL 08/19/2020 IR GENITORINARY NEPHRO/CYSTO/URETERAL 12/23/2020 IR GENITORINARY NEPHRO/CYSTO/URETERAL 04/14/2021 IR GENITORINARY NEPHRO/CYSTO/URETERAL 08/04/2021 IR GENITORINARY NEPHRO/CYSTO/URETERAL 12/10/2021 IR GENITORINARY NEPHRO/CYSTO/URETERAL 04/06/2022 IR GENITORINARY NEPHRO/CYSTO/URETERAL 08/15/2022 NONE Review of patient's allergies indicates: Allergen Reactions Pantoprazole Sodium Edema face/lips/tongue Latex Family History Problem Relation Age of Onset Cancer Mother stomach Lung Disorder Father copd Hypertension Sister Cancer Sister lung Cancer Sister breast Family Status Relation Status Mo (Not Specified) Fa (Not Specified) Sis (Not Specified) Sis (Not Specified) Sis (Not Specified) Social History Socioeconomic History Marital status: Spouse name: Not on file Number of children: Not on file Years of education: Not on file Highest education level: Not on file Occupational History Not on file Tobacco Use Smoking status: Every Day Packs/day: .1 Types: Cigarettes Smokeless tobacco: Never Vaping Use Vaping Use: Never used Substance and Sexual Activity Alcohol use: No Drug use: No Sexual activity: Not on file Other Topics Concern Not on file Social History Narrative Not on file Social Determinants of Health Financial Resource Strain: [...] on file Housing Stability: Not on file Objective: BP 148/80 | Pulse 66 | Temp 36.8 C (98.2 F) | Resp 16 | Wt 62.8 kg (138 lb 6.4 oz) | SpO2 97% |BMI 24.52 kg/m | BSA 1.67 m Physical Exam Vitals and nursing note reviewed. Constitutional: General: He is not in acute distress. Appearance: Normal appearance. He is not ill-appearing. HENT: Head: Normocephalic and atraumatic. Right Ear: Tympanic membrane normal. Left Ear: Tympanic membrane normal. Nose: Nose normal. No congestion or rhinorrhea. Mouth/Throat: Mouth: Mucous membranes are dry. Eyes: General: No scleral icterus. Pupils: Pupils are equal, round, and reactive to light. Neck: Vascular: No carotid bruit. Cardiovascular: Rate and Rhythm: Normal rate and regular rhythm. Heart sounds: No murmur heard. Pulmonary: Effort: Pulmonary effort is normal. No prolonged expiration. Breath sounds: Rales (Bibasilar crackles less than 1/3 of lungs up.) present. No wheezing or rhonchi. Abdominal: General: Bowel sounds are normal. Palpations: [...] Thought content normal. Judgment: Judgment normal. ASSESSMENT: 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 (HCC) (Primary) Chronic obstructive pulmonary disease, unspecified COPD type (HCC) ESRD (end stage renal disease) on dialysis (HCC) Pleural effusion, right - ECHO, COMPLETE (2D), TRANS-THORACIC; Future; Expected date: 01/09/2023 - XR CHEST 2 VIEWS; Future; Expected date: 01/04/2023 Clinically improved. Plan to check chest x-ray on the same day of his interventional radiology appointment in 2 days. Check transthoracic echocardiogram. Up-to-date on flu vaccine. Try to get COVID-19 at local pharmacy. Continue same medications. Follow Up: Return if symptoms worsen or fail to improve, for Keep appt in May. | For: Keep appt in May | Check-out note: Please get Flu shot date from pharmacy Edgar Gamble MD documented in this encounter Nursing Notes * Bienvenido Seo LPN - 01/02/2023 3:13 PM EST The patient has been properly identified by confirmation of name and date of . Chief Complaint Patient presents with Follow Up documented in this encounter Plan of Treatment Upcoming Encounters Date Type Department Care Team (Late st Contact Info) Description 01/04/2023 11:30 AM EST Appointment Interventional [facility] [place] [address] [address] [facility] [address] 03/03/2023 8:15 AM EST Cardiac Studies Cardiac Studies, [facility] [address] [facility] [place] [address] 04/12/2023 3:30 PM EST Procedure Only Urology, [facility] [address] [facility] [place] [address] Travon Canales MD [address] [facility] [place] [address] [facility] [address] 06/07/2023 11:50 AM EDT Office Visit [facility] [address] [place] [phone] Edgar Gibbs MD [address] [place] [address] Scheduled Orders Name Type Priority Associated Diagnoses Orde r Schedule ECHO, COMPLETE (2D), TRANS-THORACIC Echocardiology Routine Pleural effusion, right Expected: 01/09/2023 (Approximate), Expires: 01/02/2024 XR CHEST 2 VIEWS Medical Imaging Routine Pleural effusion, right Expected: 01/04/2023, Expires: 02/02/2024 Health Maintenance Due Date Last Done Comments Alpha-1 Antitrypsin 05[birth year]18/1963 Hepatitis C Screening 05/18/1963 *COPD SEVERITY VERIFIED BY PFT 03/05/2022 COVID-19 Vaccine ( season) 2022 01/19/2021, 06/10/2020, 05/20/2020 Influenza Vaccine (FLU shot) (#1) 2022 12/22/2020, 12/22/2020, 12/28/2018, Additional history exists DISCUSS TOBACCO CESSATION (REFER TO SMARTSET #4140) 06/04/2023 06/03/2022 Depression Screening 06/04/2023 06/03/2022 O2 ASSESSMENT COMPLETED IN PAST YEAR FOR COPD 12/21/2023 12/20/2022 DTaP,Tdap,and Td Vaccines (2 - Td or [...] as of this encounter Visit Diagnoses Diagnosis 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 (HCC)- Primary Chronic obstructive pulmonary disease, unspecified COPD type (HCC) ESRD (end stage renal disease) on dialysis (HCC) End stage renal disease Pleural effusion, right Unspecified pleural effusion documented in this encounter Advance Directives Latest Code Status on File Code Status Date Activated Date Inactivated Comments Full Code 04/15/2015 4:40 PM 04/16/2015 5:24 PM This order reflects the patients wishes and were consensually agreed upon. Care Teams Blending Machine Operator Relationship Specialty Start Date End Date Edgar Gibbs MD [address] [place] [phone] PCP - General Family Medicine 07/03/20 documented as of this encounter"
--- OUTSIDE RECORDS SUMMARY | 2023-06-02 11:48 | External Medical Summary | Summary of Care ---
Author Name Unknown Organization [facility] Address [address] [place] [address] Phone [phone] Care Team Providers Care Spiral Winder Name Role Phone Edgar Gibbs MD Primary Care P [facility] Reason for Visit * Precert (Within 10 days (routine)) - Authorized Specialty Diagnoses / Procedures Referred By Contac t Referred To Contact Radiology Diagnoses Hydronephrosis, right Procedures IR GENITORINARY NEPHRO/CYSTO/URETERAL Jerson Kelly MD [address] [place] [address] Referral ID Status Reason Start Date Expiration Date V isits Requested Visits Authorized [id number] Authorized 11/17/[phone] Encounter Details Date Type Department Care Team (Latest Contact Info) Description 12/28/2022 11:59 PM EDT Hospital Encounter Interventional Radiology [facility] [address] [place] [address] Canceled (Patient Cancel-Schedule Preference) Discharge Disposition: Home - Self Care Allergies Active Allergy Reactions Criticality Noted Date Comments Latex 07/19/2019 Pantoprazole Sodium Edema face/lips/tongue High 04/0 02/2014 documented as of this encounter (statuses as of 01/04/2023) Medications Medication Sig Dispensed Refills Start Date End Date Status Cholecalciferol 2000 units Capsule Take 1 Capsule by mouth in the morning. 30 Cap 3 03/28/2017 Active Calcium Acetate, Phos Binder, 667 MG TABSIndications:Kidn ey disease, chronic, stage V (GFR under 15 ml/min) ([facility]) take 2 pills 3 x daily [...] Base) MCG/ACT Inhalation Aerosol SolutionIndications: COPD exacerbation ([facility]) Inhale 2 Puffs by mouth every 4 hours as needed for Cough, Shortness of Breath or Wheezing. 18 g 5 03/02/2022 Active Additional Information Patient not taking.Reported on 06/03/2022 Incruse Ellipta 62.5 MCG/ACT Inhalation Aerosol Powder Breath Activated (umeclidinium [place])Indications: Chronic obstructive pulmonary disease, unspecified COPD type [...] as of this encounter (statuses as of 01/04/2023) Active Problems Problem Noted Date Diagnosed Date Chronic obstructive pulmonary disease 03/02/2022 Tobacco user [...] as of this encounter (statuses as of 01/04/2023) Resolved Problems Problem Noted Date Diagnosed Date [...] as of this encounter (statuses as of 01/04/2023) Immunizations Name Administration Dates Next Due COVID-19 mRNA, LNP-s, No Pre serve, 2-Dose Series ([employer]) 01/19/2021,06/10/2020,05/20/2020 Pneumococcal Conjugate Vacci ne, 20-valent ([id number]) 03/16/2022 Pneumococcal Polysaccharide PPV23 (Pneumovax) 12/28/2017 SEASONAL [...] as of this encounter Nursing Notes * Marysol Cutler RN - 12/28/2022 11:00 AM EDT Attempted to contact patient to complete pre operative instructions for Interventional Radiology procedure, did not answer the phone. Message left with instructions regarding arrival time of 1000, medications and NPO status. Made aware of need for a jeep driver. Instructed to return call to IR nurse at [phone] and leave a message on voicemail if necessary. Will attempt again at later time. documented in this encounter Plan of Treatment Upcoming Encounters Date Type Department Care Team (Late st Contact Info) Description 03/03/2023 8:15 AM EST Cardiac Studies [facility], [facility] [address] 04/12/2023 3:30 PM EST Procedure Only Urology, [facility] [place] [address] Travon Canales MD [address] [place] [address] [place] [address] 06/07/2023 11:50 AM EDT Office Visit [address] [phone] Edgar Gibbs MD [address] [place] [phone] Pending Results Name Type Priority Associated Diagnoses Date /Time IR GENITORINARY NEPHRO/CYSTO/URETERAL Medical Imaging Routine Hydronephrosis, right 01/04/2023 11:31 AM EST Health Maintenance Due Date Last Done Comments Alpha-1 Antitrypsin 05/18/1963 Hepatitis C Screening 05/18/1963 *COPD SEVERITY VERIFIED BY PFT 03/05/2022 COVID-19 Vaccine ( season) 2022 01/19/2021, 06/10/2020, 05/20/2020 Influenza Vaccine (FLU shot) (#1) 2022 12/22/2020, 12/22/2020, 12/28/2018, Additional history exists DISCUSS TOBACCO CESSATION (REFER TO SMARTSET #3291) 06/04/2023 06/03/2022 Depression Screening 06/04/2023 06/03/2022 O2 ASSESSMENT COMPLETED IN PAST YEAR FOR COPD 01/03/2024 01/02/2023 DTaP,Tdap,and Td Vaccines (2 - Td or [...] and were consensually agreed upon. Care Teams Spiral Winder Relationship Specialty Start Date End Date Edgar Gibbs MD [address] [place] [phone] PCP - General Family Medicine 07/03/20 documented as of this encounter
--- OUTSIDE RECORDS SUMMARY | 2023-06-02 11:48 | External Medical Summary | Summary of Care ---
Author Name Unknown Organization [facility] Address [address] [place] [address] Phone [phone] Care Team Providers Care Visual Supervisor Name Role Phone Edgar Gibbs MD Primary Care P [facility] Reason for Visit * Precert (Within 10 days (routine)) - Authorized Specialty Diagnoses / Procedures Referred By Contac t Referred To Contact Radiology Diagnoses Hydronephrosis, right Procedures IR GENITORINARY NEPHRO/CYSTO/URETERAL Jerson Kelly MD [address] [place] [address] Referral ID Status Reason Start Date Expiration Date V isits Requested Visits Authorized [id number] Authorized 11/17/2022 999 999 Encounter Details Date Type Department Care Team (Latest Contact Info) Description 01/04/2023 10:27 AM EST - 01/04/2023 12:53 PM EST Hospital Encounter Radiology Waiting Room [facility] 1st Floor [address] [place] [address] Abiodun Rhodes MD [address] [place] [address] Arrived Discharge Disposition: Home - Self Care [...] Acetate (3 Month) 22.5 MG Subcutaneous Kit (EliKiwilogicd) Inject 22.5 mg under the skin. Every 3 months 0 11/18/2020 Active amLODIPine Besylate 5 MG Oral Tablet (Norvasc) TAKE 1 TABLET BY MOUTH ONCE DAILY IN THE MORNING 90 Tablet 2 02/23/2022 Active Ventolin HFA 108 (90 Base) MCG/ACT Inhalation Aerosol SolutionIndications: COPD exacerbation ([facility]) Inhale 2 Puffs by mouth every 4 hours as needed for Cough, Shortness of Breath or Wheezing. 18 g 5 03/02/2022 Active Additional Information Patient not taking.Reported on 06/03/2022 Incruse Ellipta 62.5 MCG/ACT Inhalation Aerosol Powder Breath Activated (umeclidinium [place])Indications: Chronic obstructive pulmonary disease, unspecified COPD type ([facility]) Inhale 1 Puff by mouth [...] mRNA, LNP-s, No Pre serve, 2-Dose Series (brettapproved) 01/19/2021,06/10/2020,05/20/2020 Pneumococcal Conjugate Vacci ne, 20-valent ([id number]) 03/16/2022 Pneumococcal Polysaccharide PPV23 (Pneumovax) 12/28/2017 SEASONAL [...] Sign Reading Time Taken Comments Blood Pressure 155/77 01/04/2023 12:25 PM EST Pulse 71 01/04/2023 12:40 PM EST Temperature 36 C (96.8 F) 01/04/2023 12:40 PM EST Respiratory Rate 21 01/04/2023 12:40 PM EST Oxygen Saturation 96% 01/04/2023 12:40 PM EST Inhaled Oxygen Concentration - - [...] Discharge Instructions * Discharge Instr - AVS* Moses Dunne MD - 01/04/2023 11:44 AM EST Discharge Date: 01/04/2023 Provider: Dr. Gera Mcdaniel If you are experiencing any problems related to your procedure, please contact Interventional Radiology at [phone] during normal business hours: Monday - Monday, 8:00 am - 4:00 pm. If a problem occurs outside of normal business hours, please call the hospital cable machine operator at [phone] and ask for the Interventional Radiologist medication coordinator. Contact scheduling for Interventional Radiology at [phone] during normal business hours: Monday - Monday, [...] us at the numbers above. SPECIAL INSTRUCTIONS Nephroureteral Catheter Change If Connected to Drainage Bag Wear [...] homicidal, please call the crisis hotline at [phone] ([phone]). Driving: You may resume driving . Diet: You may resume your current diet as tolerated. Return to work or school: You may return to school or work hours after the procedure, unless otherwise instructed by the physician. documented in this encounter Nursing Notes * Jessica Long RN - 01/04/2023 12:08 PM EST DISCHARGE - POST INTERVENTIONAL RADIOLOGY PROCEDURE Patient meets discharge criteria for Interventional Radiology. Vital signs stable. PCN insertion site clean, dry, and intact. IV site removed. Patient awake and oriented to pre procedure baseline. Discharge instructions given, no questions at this time. Patient tolerating liquids, with no nausea/vomiting. All belongings sent with patient. Discharged to home. Vital Signs: BP: 171/80 (01/04/23 1140) Temp: 36.3 C (97.3 F) (01/04/23 114) Pulse: 63 (01/04/23 114) Resp: 16 (01/04/23 114) SpO2: 97 % (01/04/23 114) Neurological: Sharon Coma Scale Eyes Open: Spontaneous (01/04/23 114) Best Verbal Response: Verbally appropriate for age (01/04/23 1140) Best Motor Response: Obeys commands appropriate for age (01/04/23 1140) Coma Score: 15 (01/04/23 1140) @ANEPOSTANESSCORE@ Respiratory: * Marysol Cutler RN - 01/04/2023 11:30 AM EST Attempted to contact patient to complete pre operative instructions for Interventional Radiology procedure, did not answer the phone. Message left with instructions regarding arrival time of 1030, medications and NPO status. Made aware of need for a corrugated fastener driver. Instructed to return call to IR nurse at [phone] and leave a message on voicemail if necessary. Will attempt again at later time. * Shannon Carrasco RN - 01/04/2023 11:04 AM EST formation fracturing operator note Name: Matthew Rowe Date: 01/04/2023 Time: 11:12 AM Procedure: Right PCN Exchange Patient ID band checked using two identifiers. Patient placed on procedure table, prone position, with comfort measures intact and safety strap in place. Hemodynamic monitoring placed and initiated. Patient denies any current complaints at current time. RT staff prepares and preps for procedure. 11:18 AM 1 mg Versed given per order of Dr. Gera Mcdaniel. Order was verbalized and verified with same provider prior to administration. Procedure by physician. 11:25 AM Timeout performed by Dr. Gera Mcdaniel. Correct catheter/tube size verbalized and verified during timeout. 11:26 AM Procedure started by Dr. Gera Mcdaniel and Dr. Moses Dunne, and scrubbed RT Maria C Gonzalez. 1% buffered lidocaine given by doctor at right site. 11:27 AM Guidewire inserted. Images obtained. Drain removed. Images obtained. 11:28 AM New drain placed. Acquaintable Nephroureterostomy Stent Catheter. 10.2 Fr. Ref: [id number]. Lot: [id number]. Exp: 2025-10-27. Images obtained. Drain capped. 11:31 AM Area cleaned. Patient tolerated procedure well without complications. All [...] for their procedure. Total medications given Versed: 1 mg Rocephin: 1 g Please see doctor's operative note for additional details. documented in this encounter Plan of Treatment Upcoming Encounters Date Type Department Care Team (Late st Contact Info) Description 03/03/2023 8:15 AM EST Cardiac Studies Cardiac Studies, [address] [place] [address] 04/12/2023 3:30 PM EST Procedure Only Urology, [address] [place] [address] Travon Canales MD [address] [place] [address] [place] [address] 06/07/2023 11:50 AM EDT Office Visit [facility] [address] [place] [phone] Edgar Gibbs MD [address] [place] [address] Pending Results Name Type Priority Associated Diagnoses [...] COMPLETED IN PAST YEAR FOR COPD 01/03/2024 01/04/2023 DTaP,Tdap,and Td Vaccines (2 - Td [...] as of this encounter Visit Diagnoses Diagnosis Hydronephrosis, right Hydronephrosis documented in this encounter Administered Medications Inactive Administered Medications - up to 3 most recent administrations Medication Order MAR Action Action Date Dose Rate Site cefTRIAXone in dextrose (Rocephin) IVPB 1 g IV Piggyback, 1 g, ONCE, 1 dose, On Mon01/04/23 at 1130, Administer over 30 Minutes New Bag 01/04/2023 11:05 AM EST 1 g 100 mL/hr Ioversol (Optiray 320) inj 100 mL 100 mL, Intravenous, ONCE, On Mon01/04/23 at 1215, For 1 dose Given 01/04/2023 12:15 PM EST 20 mL midazolam (Versed) 2 MG/2ML inj ONCE PRN INTRA PROCEDURE, Starting on Mon01/04/23 at 1118, Until Mon01/04/23 at 1118, Intra-Op Given 01/04/2023 11:18 AM EST 1 mg documented in this encounter Active and Recently Administered Medications Times are shown in EST. Scheduled Medication Order 01/02/2023 01/03/2023 01/04/2023 cefTRIAXone in dextrose (Rocephin) IVPB 1 g (COMPLETED) IV Piggyback, 1 g, ONCE, 1 dose, On Mon01/04/23 at 1130, Administer over 30 Minutes 1105 (New Bag - Prov ider: Shannon Carrasco RN) Ioversol (Optiray 320) inj 100 mL (COMPLETED) 100 mL, Intravenous, ONCE, On Mon01/04/23 at 1215, For 1 dose 1215 (Given - Provid er: Suman Capone RT) PRN Medication Order 01/02/2023 01/03/2023 01/04/2023 midazolam (Versed) 2 MG/2ML inj (COMPLETED) ONCE PRN INTRA PROCEDURE, Starting on Mon01/04/23 at 1118, Until Mon01/04/23 at 1118, Intra-Op 1118 (Given - Provid er: Shannon Carrasco RN) documented in this encounter Advance Directives Latest Code Status on File Code Status Date Activated Date Inactivated Comments Full Code 04/15/2015 4:40 PM 04/16/2015 5:24 PM This order reflects the patients wishes and were consensually agreed upon. Care Teams Visual Supervisor Relationship Specialty Start Date End Date Edgar Gibbs MD [address] [place] [phone] PCP - General Family Medicine 07/03/20 documented as of this encounter
--- OUTSIDE RECORDS SUMMARY | 2023-06-02 11:48 | External Medical Summary | Summary of Care ---
Author Name Unknown Organization [facility] Address [address] [facility] [place] [address] Phone [phone] Care Team Providers Care Outbound Sales Agent Name Role Phone Edgar Gibbs MD Primary Care P rovider Reason for Referral * Precert (Within 10 days (routine)) - Authorized Specialty Diagnoses / Procedures Referred By Contac t Referred To Contact Radiology Diagnoses Pleural effusion, right Procedures CT CHEST WO CONTRAST Edgar Gibbs MD [address] [place] [phone] Referral ID Status Reason Start Date Expiration Date V isits Requested Visits Authorized [id number] Authorized 01/09/2023 999 999 Reason for Visit * Reason Onset Date Comments Abnormal Test Results 01/09/2023 LMOM 01/18 Encounter Details Date Type Department Care Team ([facility] Contact Info) Description 01/09/2023 Telephone Family Practice [address] [phone] Edgar Gibbs MD [address] [place] [phone] Abnormal Test Results (LMOM 01/18/23) Allergies [...] Acetate (3 Month) 22.5 MG Subcutaneous Kit (Bawte) Inject 22.5 mg under the skin. Every 3 months 0 11/18/2020 Active amLODIPine Besylate 5 MG Oral Tablet (Norvasc) TAKE 1 TABLET BY MOUTH ONCE DAILY IN THE MORNING 90 Tablet 2 02/23/2022 Active Ventolin HFA 108 (90 Base) MCG/ACT Inhalation Aerosol SolutionIndications: COPD exacerbation ([facility]) Inhale 2 Puffs by mouth every 4 hours as needed for Cough, Shortness of Breath or Wheezing. 18 g 5 03/02/2022 Active Additional Information Patient not taking.Reported on 06/03/2022 Incruse Ellipta 62.5 MCG/ACT Inhalation Aerosol Powder Breath Activated (umeclidinium [place])Indications: Chronic obstructive pulmonary disease, unspecified COPD type [...] (Pfizer) 01/19/2021,06/10/2020,05/20/2020 Pneumococcal Conjugate Vacci ne, 20-valent ([id number]) 03/16/2022 Pneumococcal Polysaccharide PPV23 (Pneumovax) 12/28/2017 SEASONAL [...] encounter Miscellaneous Notes * Telephone Encounter - Tia Mendieta CCMA [...] 8:15 AM EST [facility] [address] [facility] [place] [address] 04/12/2023 11:30 AM EST Appointment Interventional Radiology [facility], [facility] 1st Floor [address] [facility] [address] 04/12/2023 3:30 PM EST Procedure Only [facility], [facility] [address] [facility] [place] [address] Travon Canales MD [address] [facility] [place] [address] [place] [address] 06/07/2023 11:50 AM EDT Office Visit [facility] [address] [place] [phone] Edgar Gibbs MD [address] [place] [phone] Pending Results Name Type Priority Associated Diagnoses [...] and were consensually agreed upon. Care Teams Outbound Sales Agent Relationship Specialty Start Date End Date Edgar Gibbs MD [address] [place] [phone] PCP - General Family Medicine 07/03/20 documented as of this encounter
--- OUTSIDE RECORDS SUMMARY | 2023-06-02 11:48 | External Medical Summary | Summary of Care ---
Author Name Unknown Organization [facility] Address [address] [place] [address] Phone [phone] Care Team Providers Care Extruder Operator Multiple Name Role Phone Edgar Gibbs MD Primary Care P rovider Reason for Visit * Reason Onset Date Comments MyCode Nonconsent - Not interested at this time 01/02/2023 Encounter Details Date Type Department Care Team (Late st Contact Info) Description 01/02/2023 Orders Only Outcomes Research Department [address] [place], [place] [phone] Shayla Blackwell CHRA MyCode Nonconsent Documentation Allergies Active Allergy Reactions Criticality Noted Date [...] chronic, stage V (GFR under 15 ml/min) ([facility]) take 2 pills 3 x daily 180 Tab 11 10/26/2018 Active Sodium Chloride Flush (NORMAL SALINE FLUSH) 0.9 % SOLN injection FLUSH ONCE DAILY WITH 10ml 300 mL 1 03/12/2019 Active Leuprolide Acetate (3 Month) 22.5 MG Subcutaneous Kit (Modern Mast) Inject 22.5 mg under the skin. Every 3 months 0 11/18/2020 Active amLODIPine Besylate 5 MG Oral Tablet (Norvasc) TAKE 1 TABLET BY MOUTH ONCE DAILY IN THE MORNING 90 Tablet 2 02/23/2022 Active Ventolin HFA 108 (90 Base) MCG/ACT Inhalation Aerosol SolutionIndication s:COPD exacerbation (HCC) Inhale 2 Puffs by mouth every 4 hours as needed for Cough, Shortness of Breath or Wheezing. 18 g 5 03/02/2022 Active Additional Information Patient not taking.Reported on 06/03/2022 Incruse Ellipta 62.5 MCG/ACT Inhalation Aerosol Powder Breath Activated (umeclidinium [place])Indication s:Chronic obstructive pulmonary disease, unspecified COPD type [...] mRNA, LNP-s, No Pre serve, 2-Dose Series ([employer]) 01/19/2021,06/10/2020,05/20/2020 Pneumococcal Conjugate Vacci ne, 20-valent ([id number]) 03/16/2022 Pneumococcal Polysaccharide PPV23 (Pneumovax) 12/28/2017 SEASONAL [...] as of this encounter Progress Notes * Shayla Blackwell CHRA - 01/02/2023 3:09 PM EST MyCode Nonconsent Documentation Matthew Rowe was approached in the clinic regarding participation in the MyCode Project and didnot consent. 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 [address] [facility] [place] [address] 06/07/2023 11:50 AM EDT Office Visit [address] [phone] Edgar Gibbs MD [address] [place] [address] Health Maintenance Due Date Last Done Comments [...] and were consensually agreed upon. Care Teams Extruder Operator Multiple Relationship Specialty Start Date End Date Edgar Gibbs MD [address] [place] [phone] PCP - General Family Medicine 07/03/20 documented as of this encounter
--- OUTSIDE RECORDS SUMMARY | 2023-06-02 11:48 | External Medical Summary | Summary of Care ---
Author Name Unknown Organization [facility] Address [address] [place] [address] Phone [phone] Care Team Providers Care Lead Java Developer Architect Name Role Phone Edgar Gibbs MD Primary Care P rovider Reason for Referral * Precert (Within 10 days (routine)) - Authorized Specialty Diagnoses / Procedures Referred By Contac t Referred To Contact Radiology Diagnoses Pleural effusion, right Procedures CT CHEST WO CONTRAST Edgar Gibbs MD [address] [place] [address] Referral ID Status Reason Start Date Expiration Date V isits Requested Visits Authorized [id number] Authorized 01/09/2023 999 999 Reason for Visit * Reason Onset Date Comments Abnormal Test Results 01/09/2023 Encounter Details Date Type Department Care Team ([facility] Contact Info) Description 01/09/2023 Telephone Family [address] [phone] Edgar Gibbs MD [address] [place] [address] Abnormal Test Results Allergies Active Allergy [...] Acetate (3 Month) 22.5 MG Subcutaneous Kit ([facility]) Inject 22.5 mg under the skin. Every 3 months 0 11/18/2020 Active amLODIPine Besylate 5 MG Oral Tablet (Norvasc) TAKE 1 TABLET BY MOUTH ONCE DAILY IN THE MORNING 90 Tablet 2 02/23/2022 Active Ventolin HFA 108 (90 Base) MCG/ACT Inhalation Aerosol SolutionIndications: COPD exacerbation ([facility]) Inhale 2 Puffs by mouth every 4 hours as needed for Cough, Shortness of Breath or Wheezing. 18 g 5 03/02/2022 Active Additional Information Patient not taking.Reported on 06/03/2022 Incruse Ellipta 62.5 MCG/ACT Inhalation Aerosol Powder Breath Activated (umeclidinium [place])Indications: Chronic obstructive pulmonary disease, unspecified COPD type ([facility]) Inhale 1 Puff by mouth in the [...] (Pfizer) 01/19/2021,06/10/2020,05/20/2020 Pneumococcal Conjugate Vacci ne, 20-valent ([id number]) 03/16/2022 Pneumococcal Polysaccharide PPV23 (Pneumovax) 12/28/2017 SEASONAL [...] 8:15 AM EST Cardiac Studies Cardiac Studies, [facility] 132 [facility] [place] [address] 04/12/2023 11:30 AM EST Appointment Interventional Radiology [facility], [facility] 1st Floor [address] [place] [address] 04/12/2023 3:30 PM EST Procedure Only Urology, [facility] [address] [facility] [place] [address] Travon Canales MD [address] [facility] [address] [place] [address] 06/07/2023 11:50 AM EDT Office Visit [facility] [address] [place] [phone] Edgar Gibbs MD [address] [place] [address] Scheduled Orders Name Type Priority Associated Diagnoses Orde r Schedule CT CHEST WO CONTRAST Medical Imaging Routine Pleural effusion, right Ordered: 01/09/2023 Health Maintenance Due Date Last Done Comments [...] and were consensually agreed upon. Care Teams Lead Java Developer Architect Relationship Specialty Start Date End Date Edgar Gibbs MD [address] [place] [phone] PCP - General Family Medicine 07/03/20 documented as of this encounter
--- OUTSIDE RECORDS SUMMARY | 2023-06-02 11:48 | External Medical Summary | Summary of Care ---
Author Name Unknown Organization [facility] Address [address] [place] [address] Phone [phone] Care Team Providers Care Mechanical System Technician Name Role Phone Edgar Gibbs MD Primary Care P [facility] Reason for Referral * Precert (Within 10 days (routine)) - Authorized Specialty Diagnoses / Procedures Referred By Contac t Referred To Contact Radiology Diagnoses Nephrostomy status (HCC) Procedures IR GENITORINARY NEPHRO/CYSTO/URETERAL Geeta Rai CRNP [address] [place] [address] Referral ID Status Reason Start Date Expiration Date V isits Requested Visits Authorized [id number] Authorized 01/09/2023 50 50 Encounter Details Date Type Department Care Team (Late st Contact Info) Description 01/09/2023 Telephone Interventional Radiology [facility], [facility] 1st Floor [address] [place] [address] Geeta Rai CRNP [address] [place] [address] Allergies Active Allergy Reactions Criticality [...] Inhalation Aerosol SolutionIndications: COPD exacerbation ([facility]) Inhale 2 Puffs by mouth every 4 hours as needed for Cough, Shortness of Breath or Wheezing. 18 g 5 03/02/2022 Active Additional Information Patient not taking.Reported on 06/03/2022 Incruse Ellipta 62.5 MCG/ACT Inhalation Aerosol Powder Breath Activated (umeclidinium [place])Indications: Chronic obstructive pulmonary disease, unspecified COPD type ([facility]) Inhale 1 Puff by mouth in the [...] (Pfizer) 01/19/2021,06/10/2020,05/20/2020 Pneumococcal Conjugate Vacci ne, 20-valent ([id number]) 03/16/2022 Pneumococcal Polysaccharide PPV23 (Pneumovax) 12/28/2017 SEASONAL [...] Upcoming Encounters Date Type Department Care Team ([facility] st Contact Info) Description 03/03/2023 8:15 AM EST Cardiac Studies Cardiac Studies, [facility] [address] [facility] [place] [address] 04/12/2023 3:30 PM EST Procedure Only Urology, [facility] [address] [facility] [place] [address] Travon Canales MD [address] [place] [address] [place] [address] 06/07/2023 11:50 AM EDT Office Visit Family Practice [facility] [address] [place] [phone] Edgar Gibbs MD [address] [place] [address] Scheduled Orders Name Type Priority Associated Diagnoses Order Schedule IR GENITORINARY NEPHRO/CYSTO/URETERAL Medical Imaging Routine Nephrostomy status (HCC) 50 Occurrences starting 01/09/2023 until 02/09/2024 Health Maintenance Due Date Last Done Comments Alpha-1 Antitrypsin 05/18/1963 Hepatitis C Screening 05/18/1963 *COPD SEVERITY VERIFIED BY PFT 03/05/2022 COVID-19 Vaccine ( season) 2022 01/19/2021, 06/10/2020, 05/20/2020 Influenza Vaccine (FLU shot) (#1) 2022 12/22/2020, 12/22/2020, 12/28/2018, Additional history exists DISCUSS TOBACCO CESSATION (REFER TO SMARTSET #2538) 06/04/2023 06/03/2022 Depression Screening 06/04/2023 06/03/2022 O2 [...] this encounter Visit Diagnoses Diagnosis Nephrostomy status (HCC)- Primary Status of other artificial opening of urinary tract documented in this encounter Advance Directives Latest Code Status on File Code Status Date Activated Date Inactivated Comments Full Code 04/15/2015 4:40 PM 04/16/2015 5:24 PM This order reflects the patients wishes and were consensually agreed upon. Care Teams Mechanical System Technician Relationship Specialty Start Date End Date Edgar Gibbs MD [address] [place] [address] PCP - General Family Medicine 07/03/20 documented as of this encounter
--- OUTSIDE RECORDS SUMMARY | 2023-06-02 11:49 | External Medical Summary | Summary of Care ---
Author Name Unknown Organization [facility] Address [address] [place] [address] Phone [phone] Care Team Providers Care Oil Field Pumper Name Role Phone Edgar Gibbs MD Primary Care P [facility] Reason for Visit * Precert (Within 10 days (routine)) - Authorized Specialty Diagnoses / Procedures Referred By Contac t Referred To Contact Radiology Diagnoses Hydronephrosis, right Procedures IR GENITORINARY NEPHRO/CYSTO/URETERAL Jerson Kelly MD [address] [place] [address] Referral ID Status Reason Start Date Expiration Date V isits Requested Visits Authorized [id number] Authorized 11/17/[phone] Encounter Details Date Type Department Care Team (Latest Contact Info) Description 12/12/2022 11:59 PM EDT Hospital Encounter Interventional Radiology [facility], [facility] 1st Floor [address] [place] [address] Canceled (Patient Cancel-Schedule Preference) Discharge Disposition: Home - Self Care Allergies Active Allergy Reactions Criticality Noted Date Comments Latex 07/19/2019 Pantoprazole Sodium Edema face/lips/tongue High 04/0 02/2014 documented as of this encounter (statuses as of 12/19/2022) Medications Medication Sig Dispensed Refills Start Date End Date Status Cholecalciferol 2000 units Capsule Take 1 Capsule by mouth in the morning. 30 Cap 3 03/28/2017 Active Calcium Acetate, Phos Binder, 667 MG TABSIndications:Kidn ey disease, chronic, stage V (GFR under 15 ml/min) ([facility]) take 2 pills 3 x daily 180 [...] Base) MCG/ACT Inhalation Aerosol SolutionIndications: COPD exacerbation ([facility]) Inhale 2 Puffs by mouth every 4 hours as needed for Cough, Shortness of Breath or Wheezing. 18 g 5 03/02/2022 Active Additional Information Patient not taking.Reported on 06/03/2022 Incruse Ellipta 62.5 MCG/ACT Inhalation Aerosol Powder Breath Activated (umeclidinium [place])Indications: Chronic obstructive pulmonary disease, unspecified COPD type [...] as of this encounter (statuses as of 12/19/2022) Active Problems Problem Noted Date Diagnosed Date [...] as of this encounter (statuses as of 12/19/2022) Resolved Problems Problem Noted Date Diagnosed Date [...] as of this encounter (statuses as of 12/19/2022) Immunizations Name Administration Dates Next Due COVID-19 mRNA, LNP-s, No Pre serve, 2-Dose Series (Symtext) 01/19/2021,06/10/2020,05/20/2020 Pneumococcal Conjugate Vacci ne, 20-valent ([id number]) 03/16/2022 Pneumococcal Polysaccharide PPV23 (Pneumovax) 12/28/2017 SEASONAL [...] Nursing Notes * Marysol Cutler RN - 12/12/2022 12:00 PM EDT Attempted to contact patient to complete pre operative instructions for Interventional Radiology procedure, did not answer the phone. Message left with instructions regarding arrival time of 1100, medications and NPO status. Made aware of need for a public transit bus driver. Instructed to return call to IR nurse at 1 [phone] and leave a message on voicemail if necessary. Will attempt again at later time. documented in this encounter Plan of Treatment Upcoming Encounters Date Type Department Care Team ([facility] Contact Info) Description 12/26/2022 12:40 PM EDT Office Visit [address] [phone] Edgar Gibbs MD [address] [place] [address] 12/28/2022 11:00 AM EDT Appointment Interventional Radiology [facility], [facility] 1st Floor [address] [place] [address] 04/12/2023 3:30 PM EST Procedure Only Urology, [facility] [address] [facility] [place] [id number] Travon Canales MD [address] [facility] [place] [address] 06/07/2023 11:50 AM EDT Office Visit [address] [phone] Edgar Gibbs MD [address] [place] [address] Scheduled Orders Name Type Priority Associated Diagnoses Orde r Schedule IR GENITORINARY NEPHRO/CYSTO/URETERAL Medical Imaging Routine Hydronephrosis, right Expected: 11/17/2022, Expires: 09/17/2023 Health Maintenance Due Date Last Done Comments Alpha-1 Antitrypsin 05/18/1963 Hepatitis C Screening 05/18/1963 *COPD SEVERITY VERIFIED BY PFT 03/05/2022 COVID-19 Vaccine ( season) 2022 01/19/2021, 06/10/2020, 05/20/2020 Influenza Vaccine (FLU shot) (#1) 2022 12/22/2020, 12/22/2020, 12/28/2018, Additional history exists DISCUSS TOBACCO CESSATION (REFER TO SMARTSET #3291) 06/04/2023 06/03/2022 Depression Screening 06/04/2023 06/03/2022 O2 ASSESSMENT COMPLETED IN PAST YEAR FOR COPD 12/06/2023 12/05/2022 DTaP,Tdap,and Td Vaccines (2 - Td or [...] and were consensually agreed upon. Care Teams Oil Field Pumper Relationship Specialty Start Date End Date Edgar Gibbs MD [address] [place] [phone] PCP - General Family Medicine 07/03/20 documented as of this encounter
--- OUTSIDE RECORDS SUMMARY | 2023-06-02 11:49 | External Medical Summary | Summary of Care ---
Author Name Unknown Organization [facility] Address [address] [place] [address] Phone [phone] Care Team Providers Care Dowel Inserting Machine Operator Name Role Phone Edgar Gibbs MD Primary Care P rovider Reason for Referral * Medication Prior Authorization - Closed Specialty Diagnoses / Procedures Referred By Contac t Referred To Contact Diagnoses Chronic obstructive pulmonary disease with acute exacerbation (HCC) Edgar Gibbs MD [address] [place] [address] Referral ID Status Reason Start Date Expiration Date Visits Re quested Visits Authorized [id number] Closed [phone] Reason for Visit * Reason Comments Follow Up Encounter Details Date Type Department Care Team Description 12/05/2022 Office Visit Family [address] [phone] Edgar Gibbs MD [address] [place] [phone] Chronic obstructive pulmonary disease with acute exacerbation (HCC)*; 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 (HCC); HTN, goal below 140/90; ESRD (end stage renal disease) on dialysis (HCC); Need for hepatitis C screening test Allergies Active Allergy Reactions Severity Noted Date Comments Latex 07/19/2019 Pantoprazole Sodium Edema face/lips/tongue High 04/0 02/2014 documented as of this encounter (statuses as of 12/05/2022) Medications Medication Sig Dispensed Refills Start Date [...] Acetate (3 Month) 22.5 MG Subcutaneous Kit (Filtr8) Inject 22.5 mg under the skin. Every 3 months 0 11/18/2020 Active amLODIPine Besylate 5 MG Oral Tablet (Norvasc) TAKE 1 TABLET BY MOUTH ONCE DAILY IN THE MORNING 90 Tablet 2 02/23/2022 Active Ventolin HFA 108 (90 Base) MCG/ACT Inhalation Aerosol SolutionIndications :COPD exacerbation (HCC) Inhale 2 Puffs by mouth every 4 hours as needed for Cough, Shortness of Breath or Wheezing. 18 g 5 03/02/2022 Active Additional Information Patient not taking.Reported on 06/03/2022 Incruse Ellipta 62.5 MCG/ACT Inhalation Aerosol Powder Breath Activated (umeclidinium [place])Indications :Chronic obstructive pulmonary disease, unspecified COPD type [...] ONCE DAILY 90 Tablet 3 11/22/2022 Active predniSONE 20 MG Oral Tablet (Deltasone)Indicati ons:Chronic obstructive pulmonary disease with acute exacerbation (HCC) Take 2 Tablets by mouth daily for 2 days, THEN 1 Tablet daily for 4 days, THEN 0.5 Tablets daily for 4 days. 10 Tablet 0 12/05/2022 12/15/2022 Active documented as of this encounter (statuses as of 12/05/2022) Active Problems Problem Noted Date Chronic obstructive pulmonary disease Tobacco user 08/27/2021 Bladder stones 08/27/2021 DNR (do not resuscitate) 01/04/2021 ESRD (end stage renal disease) on dialys is 01/04/2021 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 09/20/2018 Dialysis patient 02/06/2018 Hydronephrosis, right 07/02/2017 Prostate cancer 03/08/2017 Kidney disease, chronic, stage V (GFR un sloan 15 ml/min) 06/15/2015 Overview: Per CKD protocol #1 HTN, goal below 140/90 07/23/2014 Chronic anemia 05/06/2014 documented as of this encounter (statuses as of 12/05/2022) Resolved Problems Problem Noted Date Resolved Date Atypical pneumonia 03/02/2022 06/03/2022 Demand ischemia 03/02/2022 06/03/2022 Hypoxemia 03/02/2022 06/03/2022 Chronic indwelling [place] catheter 08/27/2021 06/03/20[address] Central venous catheter in place 08/27/2021 06/03/2022 Encounter for attention to o ther artificial openings of urinary tract 08/27/2021 06/03/2022 CKD (chronic kidney disease) stage 4, GFR 15-29 ml/min 05/06/2015 06/19/2015 Overview: Per CKD protocol #1 Hyperkalemia 11/07/2014 12/27/2016 Metabolic acidosis 11/07/2014 12/27/2016 Prostate cancer 09/02/2014 12/27/2016 Cancer Staging:Clinical: T4 - Unsigned Other chronic cystitis 08/06/2014 7 Overview: Related to chronic indwelling catheter. Treat only when symptomatic. CKD (chronic kidney disease) stage 5, GFR less than 15 ml/min 07/23/2014 05/06/2015 Rash of face 06/04/2014 12/27/2016 Urinary retention 05/20/2014 12/27/2016 MELODY (acute kidney injury) 05/06/20142014 Hypertension, essential 06/04/19 16 Use of leuprolide acetate (Lupron) 12/27/2016 documented as of this encounter (statuses as of 12/05/2022) Immunizations Name Administration Dates Next Due COVID-19 mRNA, LNP-s, No Pre serve, 2-Dose Series (Pfizer) 01/19/2021,06/10/2020,05/20/2020 Pneumococcal Conjugate Vacci ne, 20-valent ([id number]) 03/16/2022 Pneumococcal Polysaccharide PPV23 (Pneumovax) 12/28/2017 SEASONAL [...] drink = 0.6 oz pur e alcohol) Food Insecurity Answer Date Recorded Within the past 12 months, y ou worried that your food would run out before you got money to buy more. Never true 10/26/2018 Within the past 12 months, t he food you bought just didn't last and you didn't have money to get more. Never true 10/26/2018 Sex Assigned at Date Recorded Male 04/23/2019 6:[address] Job Start Date Occupation Industry Not on file Not on file Not on file documented as of this encounter Last Filed Vital Signs Vital Sign Reading Time Taken Comments Blood Pressure 148/80 12/05/2022 11:42 AM EDT Pulse 58 12/05/2022 11:42 AM EDT Temperature 36.8 C (98.2 F) 12/05/2022 1 1:42 AM EDT Respiratory Rate 17 12/05/2022 11:4 2 AM EDT Oxygen Saturation 95% 12/05/2022 11: 42 AM EDT Inhaled Oxygen Concentration - - Weight 63.4 kg (139 lb 12.8 oz) 023 11:42 AM EDT Height - - Body Mass Index 24.77 06/03/2022 10:43 AM EDT documented in this encounter Functional Status [...] No 04/15/2015 documented as of this encounter Patient Instructions * Patient Instructions* Edgar Grey MD - 12/05/2022 12:06 PM EDT Try to get RSV vaccine at any local pharmacy. You could get COVID 19 Monovalent booster at any local pharmacy. documented in this encounter Progress Notes * Edgar Grey MD - 12/05/2022 11:53 AM EDT Subjective: Matthew Rowe is a 77 year old male. Chief Complaint Patient presents with Follow Up HPI: Patient is in the office to follow-up chronic medical problems. Regarding hypertension: Taking amlodipine 5 mg daily, atenolol 50 mg daily. Denies Chest pain or dizziness. Regarding COPD: On Incruse Ellipta 1 inhalation daily. Also has Ventolin inhaler but has not had the need to use it. In the last 2 weeks has been having some PND and head congestion. Refers occasional; cough in the evenings. Sx are worse when going out to [employer] lawn. Uses riding mower. Denies fever or chills. Regarding kidney disease: Continues to receive dialysis on Tuesdays, and Saturdays at local dialysis center in [facility]. Being followed by [facility]. Serum creatinine 8.8, BUN 18, BUN post dialysis 16. Eating tid. Denies dysuria. Has been cutting back on smoking, 1/ PPD. Being followed by Dr Canales at q 6 months. PSA results are pending. PMH: Patient Active Problem List Diagnosis Code Chronic anemia D64.9 HTN, goal below 140/90 I10 Kidney disease, chronic, stage V (GFR under 15 ml/min) ([facility]) N18.5 Prostate cancer ([facility]) C61 Hydronephrosis, right N13.30 Dialysis patient ([facility]) Z99.2 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 ([facility]) I12.0, N18.6, Z99.2 DNR (do not resuscitate) Z66 ESRD (end stage renal disease) on dialysis ([facility]) N18.6, Z99.2 Tobacco user Z72.0 Bladder stones N21.0 Chronic obstructive pulmonary disease ([facility]) J44.9 Current Outpatient Medications Medication Sig Dispense Refill Cholecalciferol 2000 units Capsule Take 1 Capsule by mouth in the morning. 30 Cap 3 Calcium Acetate, Phos Binder, 667 MG TABS take 2 pills 3 x daily 180 Tab 11 amLODIPine Besylate 5 MG Oral Tablet (Norvasc) TAKE 1 TABLET BY MOUTH ONCE DAILY IN THE MORNING 90 Tablet 2 Incruse Ellipta 62.5 MCG/ACT Inhalation Aerosol Powder Breath Activated (umeclidinium [place]) Inhale 1 Puff by mouth in the morning. 30 Each 11 Citalopram Hydrobromide 10 MG Oral Tablet (CeleXA) TAKE 1 TABLET BY MOUTH ONCE DAILY AT BEDTIME 30 Tablet 5 Atenolol 50 MG Oral Tablet (Tenormin) TAKE 1 TABLET BY MOUTH ONCE DAILY AT BEDTIME 90 Tablet 1 Nephro-Farzana 0.8 MG Oral Tablet TAKE ONE TABLET BY MOUTH ONCE DAILY 90 Tablet 3 predniSONE 20 MG Oral Tablet (Deltasone) Take 2 Tablets by mouth daily for 2 days, THEN 1 Tablet daily for 4 days, THEN 0.5 Tablets daily for 4 days. 10 Tablet 0 Sodium Chloride Flush (NORMAL SALINE FLUSH) 0.9 % SOLN injection FLUSH ONCE DAILY WITH 10ml 300 mL 1 Leuprolide Acetate (3 Month) 22.5 MG Subcutaneous Kit (Filtr8) Inject 22.5 mg under the skin. Every 3 months Ventolin HFA 108 (90 Base) MCG/ACT Inhalation Aerosol Solution Inhale 2 Puffs by mouth every 4 hours as needed for Cough, Shortness of Breath or Wheezing. (Patient not taking: Reported on 06/03/2022) 18 g 5 No current facility-administered medications for this visit. Past Medical History: Diagnosis Date Hypertension, essential INFORMATION 04/13 [facility]- kidney failure Use of leuprolide acetate (Lupron) Past Surgical History: Procedure Laterality Date CYSTOSCOPY 07-08-2014 IR DRAINAGE CATHETER CHANGE Right 06/10/2015 CHANGE OF PERCUTANEOUS TUBE OR DRAINAGE CATHETER WITH XRAY AND CONTRAST MEDIUM performed by Gera Mcdaniel MD at [facility] IR DRAINAGE CATHETER CHANGE Right 08/24/2016 CHANGE OF PERCUTANEOUS TUBE OR DRAINAGE CATHETER WITH XRAY AND CONTRAST MEDIUM performed by Gera Mcdaniel MD at [facility] IR GENITORINARY NEPHRO/CYSTO/URETERAL 01/18/2019 IR GENITORINARY NEPHRO/CYSTO/URETERAL [...] Tobacco Use Smoking status: Every Day Packs/day: 0.10 Types: Cigarettes Smokeless tobacco: Never Vaping Use Vaping Use: Never used Substance and Sexual Activity Alcohol use: No Drug use: No Sexual activity: Not on file Other Topics Concern Not on file Social History Narrative Not on file Social Determinants of Health Financial Resource Strain: Not on file Food Insecurity: Not on file Transportation Needs: Not on file Physical Activity: Not on file Stress: Not on file Social Connections: Not on file Intimate Partner Violence: Not on file Housing Stability: Not on file Objective: BP 148/80 | Pulse 58 | Temp 36.8 C (98.2 F) | Resp 17 | Wt 63.4 kg (139 lb 12.8 oz) | SpO2 95% | BMI 24.77 kg/m | BSA 1.68 m Physical Exam Vitals and nursing note reviewed. Constitutional: General: He is not in acute distress. Appearance: Normal appearance. He is normal weight. He is not ill-appearing. HENT: Head: Normocephalic [...] heard. Pulmonary: Effort: Pulmonary effort is normal. Prolonged expiration present. No respiratory distress. Breath sounds: Wheezing and rhonchi present. No rales. Abdominal: General: Bowel sounds are normal. Palpations: [...] Thought content normal. Judgment: Judgment normal. ASSESSMENT: Chronic obstructive pulmonary disease with acute exacerbation (HCC) (Primary) - [id number], QN; Future; Expected date: 12/05/2022 - predniSONE 20 MG Oral Tablet (Deltasone); Take 2 Tablets by mouth daily for 2 days, THEN 1 Tabletdaily for 4 days, THEN 0.5 Tablets daily for 4 days. 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 (HCC) HTN, goal below 140/90 ESRD (end stage renal disease) on dialysis (HCC) Need for hepatitis C screening test - HEPATITIS C ANTIBODY SCREEN WITH PROGRESSION TO HEPATITIS C RNA QUANTITATIVE; Future; Expected date: 12/05/2022 Rx prednisone taper. Continue current medications. Try to get RSV vaccine at any local pharmacy. You could get COVID 19 Monovalent booster at any local pharmacy. Patient is up-to-date with influenza vaccine. Advised to get COVID-19 vaccine at local pharmacy. Follow Up: Return in about 6 months (around 06/06/2023), or if symptoms worsen or fail to improve, for f/u chronic problems, schedule labs before next OV. | For: f/u chronic problems, schedule labs before next OV Edgar Gamble MD documented in this encounter Plan of Treatment Upcoming Encounters Date Type Specialty Care Team Description 12/12/2022 Appointment Radiology 04/12/2023 Office Visit Urology Travon Canales MD 27 [facility] [address] [place] [address] 06/07/2023 Office Visit Family Medicine [facility] [address] Scheduled Orders Name Type Priority Associated Diagnoses Orde r Schedule [id number], QN Lab Routine Chronic obstructive pulmonary disease with acute exacerbation (HCC) Expected: 12/05/2022 (Approximate), Expires: 12/06/2023 HEPATITIS C ANTIBODY SCREEN WITH PROGRESSION TO HEPATITIS C RNA QUANTITATIVE Lab Routine Need for hepatitis C screening test Expected: 12/05/2022 (Approximate), Expires: 01/06/2024 Health Maintenance Due Date Last Done Comments Alpha-1 Antitrypsin 05[birth year]18/1963 Hepatitis C Screening 05/18/1963 *COPD SEVERITY VERIFIED BY PFT 03/05/2022 COVID-19 Vaccine ( season) 2022 01/19/2021, 06/10/2020, 05/20/2020 Influenza Vaccine (FLU shot) (#1) 2022 12/22/2020, 12/22/2020, 12/28/2018, Additional history exists DISCUSS TOBACCO CESSATION (REFER TO SMARTSET #3291) 06/04/2023 06/03/2022 Depression Screening 06/04/2023 06/03/2022 O2 ASSESSMENT COMPLETED IN PAST YEAR FOR COPD 08/16/2023 12/05/2022 DTaP,Tdap,and Td Vaccines (2 - Td [...] of this encounter Visit Diagnoses Diagnosis Chronic obstructive pulmonary disease with acute exacerbation (HCC)- Primary Obstructive chronic bronchitis with exacerbation 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 (HCC) HTN, goal below 140/90 Unspecified essential hypertension ESRD (end stage renal disease) on dialysis (HCC) End stage renal disease Need for hepatitis C screening test Special screening examination for other specified viral diseases documented in this encounter Advance Directives Latest Code Status on File Code Status Date Activated Date Inactivated Comments Full Code 04/15/2015 4:40 PM 04/16/2015 5:24 PM This order reflects the patients wishes and were consensually agreed upon. Care Teams Dowel Inserting Machine Operator Relationship Specialty Start Date End Date Edgar Gibbs MD [address] [place] [address] [phone] PCP - General Family Medicine 07/03/20 documented as of this encounter"
--- OUTSIDE RECORDS SUMMARY | 2023-06-02 11:49 | External Medical Summary | Summary of Care ---
Author Name Unknown Organization [facility] Address [address] [facility] [place] [address] Phone [phone] Care Team Providers Care Sales Professional Name Role Phone Edgar Gibbs MD Primary Care P rovider Reason for Visit * Reason Onset Date Comments Test Results 12/16/2022 Encounter Details Date Type Department Care Team Description 12/16/2022 Refill Nephrology, [facility] [address] [facility] [place] [address] Lucila Herrera MD [address] [facility] [place] [address] SOB (shortness of breath)*; Pneumonia due to COVID-19 virus Allergies Active Allergy Reactions Severity Noted Date Comments Latex 07/19/2019 Pantoprazole Sodium Edema face/lips/tongue High 04/0 02/2014 documented as of this encounter (statuses as of 12/16/2022) Medications Medication Sig Dispensed Refills Start Date End Date Status Cholecalciferol 2000 units Capsule Take 1 Capsule by mouth in the morning. 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) ([facility]) take 2 pills 3 x daily 180 Tab 11 10/26/2018 Active Sodium Chloride Flush (NORMAL SALINE FLUSH) 0.9 % SOLN injection FLUSH ONCE DAILY WITH 10ml 300 mL 1 03/12/2019 Active Leuprolide Acetate (3 Month) 22.5 MG Subcutaneous Kit (Zayo) Inject 22.5 mg under the skin. Every [...] MCG/ACT Inhalation Aerosol Powder Breath Activated (umeclidinium [place])Indications :Chronic obstructive pulmonary disease, unspecified COPD type [...] 11/22/2022 Active Doxycycline Hyclate 100 MG Oral CapsuleIndications: SOB (shortness of breath),Pneumonia due to COVID-19 virus Take 1 Capsule by mouth in the morning and 1 Capsule before bedtime. 14 Capsule 0 12/16/2022 Active documented as of this encounter (statuses as of 12/16/2022) Active Problems Problem Noted Date Chronic obstructive [...] as of this encounter (statuses as of 12/16/2022) Resolved Problems Problem Noted Date Resolved Date [...] as of this encounter (statuses as of 12/16/2022) Immunizations Name Administration Dates Next Due COVID-19 mRNA, LNP-s, No Pre serve, 2-Dose Series ([employer]) 01/19/2021,06/10/2020,05/20/2020 Pneumococcal Conjugate Vacci ne, 20-valent ([id number]) 03/16/2022 Pneumococcal Polysaccharide PPV23 (Pneumovax) 12/28/2017 SEASONAL [...] Miscellaneous Notes * Telephone Encounter - Edgar Grey MD - 12/16/2022 12:13 PM EDT Front staff, please schedule patient in the next 10-14 days with me to follow-up pneumonia. Okay tooverbook. * Telephone Encounter - Lucila Herrera MD - 12/16/2022 11:23 AM EDTSigned Prescriptions: Disp Refills Doxycycline Hyclate 100 MG Oral Capsule 14 Cap*0 Sig: Take 1 Capsule by mouth in the morning and 1 Capsule before bedtime. Authorizing Provider: LUCILA HERRERA * Telephone Encounter - Judy Hamilton RN - 12/16/2022 11:19 AM EDT Message left with call back number. RX pended for signature. Information and CXR report faxed to [facility]. * Telephone Encounter - Judy Hamilton RN - 12/16/2022 11:09 AM EDT ----- Message from Lucila Herrera MD sent at 12/16/2022 11:01 AM EDT ----- He has Lot of fluid in right lung. He most likely progressed to some pneumonia with consolidation. Will need Antibiotics also but we also need to lower the dry weight by about 1.5 kilo. His symptoms of weakness and all can be related with pneumonia. Will also forward to dr Edgar Gamble MD Doxycycline 100 bid for 7 days. Also send cxr report and note to dialysis unit and let patient know about the report and rx documented in this encounter Plan of Treatment Upcoming Encounters Date Type Specialty Care Team Description 12/28/2022 Appointment Radiology 04/12/2023 Procedure Only Urology Travon Canales MD 27 [facility] [place] [address] [place] [address] 06/07/2023 Office Visit Family Medicine Edgar Gibbs MD [address] [place] [address] Health Maintenance Due Date Last Done Comments [...] as of this encounter Visit Diagnoses Diagnosis SOB (shortness of breath)- Primary Shortness of breath Pneumonia due to COVID-19 virus documented in this encounter Advance Directives Latest Code Status on File Code Status Date Activated Date Inactivated Comments Full Code 04/15/2015 4:40 PM 04/16/2015 5:24 PM This order reflects the patients wishes and were consensually agreed upon. Care Teams Sales Professional Relationship Specialty Start Date End Date Edgar Gibbs MD [place] [phone] PCP - General Family Medicine 07/03/20 documented as of this encounter
--- OUTSIDE RECORDS SUMMARY | 2023-06-02 11:49 | External Medical Summary | Summary of Care ---
Author Name Unknown Organization [facility] Address [address] [facility] [place] [address] Phone [phone] Care Team Providers Care Associate Professor Of Automation Name Role Phone Edgar Gibbs MD Primary Care P rovider Encounter Details Date Type Department Care Team (Late st Contact Info) Description 12/13/2022 Result Scan Unspecified Department <No scans attached> [...] MCG/ACT Inhalation Aerosol Powder Breath Activated (umeclidinium [place])Indications: Chronic obstructive pulmonary disease, unspecified COPD type [...] Diagnosed Date Resolved Date Atypical pneumonia 03/02/2022 Demand ischemia 03/02/2022 06/03/2022 [...] mRNA, LNP-s, No Pre serve, 2-Dose Series ([employer]) 01/19/2021,06/10/2020,05/20/2020 Pneumococcal Conjugate Vacci ne, 20-valent ([id number]) 03/16/2022 Pneumococcal Polysaccharide PPV23 (Pneumovax) 12/28/2017 SEASONAL [...] Care Team (Late st Contact Info) Description 12/26/2022 12:40 PM EDT Office Visit Family Practice [address] [phone] Edgar Gibbs MD [address] [place] [phone] 12/28/2022 11:00 AM EDT Appointment Interventional Radiology [facility] [place], Yumiko Pickens 1st [address] [place] [address] 04/12/2023 3:30 PM EST Procedure Only Urology, [facility] [address] [place] [address] Travon Canales MD 27 [facility] [place] [address] [place] [address] 06/07/2023 11:50 AM EDT Office Visit Family [facility] [address] [place] [phone] Edgar Gibbs MD 68 [place] [address] Health Maintenance Due Date Last [...] Date/Time Associated Diagnosis Comments OUTSIDE LAB RESULTS 12/13/2022 documented in this encounter Results * OUTSIDE LAB RESULTS (12/13/2022) 12/13/2022 No Physician Data Unknown LABORATORY documented in this encounter Advance Directives Latest Code Status on File Code Status Date Activated Date Inactivated Comments Full Code 04/15/2015 4:40 PM 04/16/2015 5:24 PM This order reflects the patients wishes and were consensually agreed upon. Care Teams Associate Professor Of Automation Relationship Specialty Start Date End Date Edgar Gibbs MD [address] [place] [phone] PCP - General Family Medicine 07/03/20 documented as of this encounter
--- OUTSIDE RECORDS SUMMARY | 2023-06-02 11:49 | External Medical Summary | Summary of Care ---
Author Name Unknown Organization [facility] Address [address] [facility] [place] [address] Phone [phone] Care Team Providers Care Mathematician Research Name Role Phone Edgar Gibbs MD Primary Care P rovider Reason for Visit * Reason Onset Date Comments Test Results 12/16/2022 Urinary Tract Infection Symptoms 12/16/2022 Encounter Details Date Type Department Care Team Description 12/16/2022 Refill Ne[facility]rology[facility]vng [address] [facility] [address] [place] [address] Lucila Herrera MD [address] [facility] [place] [address] SOB (shortness of breath)*; Pneumonia due to [...] (GFR under 15 ml/min) ([facility]) take 2 pills 3 x daily 180 Tab 11 10/26/2018 Active Sodium Chloride Flush (NORMAL SALINE FLUSH) 0.9 % SOLN injection FLUSH ONCE DAILY WITH 10ml 300 mL 1 03/12/2019 Active Leuprolide Acetate (3 Month) 22.5 MG Subcutaneous Kit (EliTelensiusd) Inject 22.5 mg under the skin. Every [...] MCG/ACT Inhalation Aerosol Powder Breath Activated (umeclidinium [place])Indications :Chronic obstructive pulmonary disease, unspecified COPD type [...] mRNA, LNP-s, No Pre serve, 2-Dose Series (Mohive) 01/19/2021,06/10/2020,05/20/2020 Pneumococcal Conjugate Vacci ne, 20-valent ([id number]) 03/16/2022 Pneumococcal Polysaccharide PPV23 (Pneumovax) 12/28/2017 SEASONAL [...] encounter Miscellaneous Notes * Telephone Encounter - VICTORIANO Sol - 12/16/2022 1:11 PM EDT Patient returned call and appointment made. States that the print washer wanted him to go to a chest xray which he thinks must have shown some fluid because an abx was sent to the pharmacy yor him. * Telephone Encounter - VICTORIANO Fernández - 12/16/2022 1:08 PM EDT Reason for patient's call: Patient returning your call to schedule appointment Caller was transferred to Stacy at the clinic. * Telephone Encounter - VICTORIANO Munoz - 12/16/2022 12:54 PM EDT lmom * Telephone Encounter - Edgar Grey MD [...] signature. Information and CXR report faxed to [facility]. * Telephone Encounter - Judy Hamilton RN [...] Encounters Date Type Specialty Care Team Description 12/26/2022 Office Visit Family Medicine Edgar Gibbs MD 68 [place], [place] [phone] 12/28/2022 Appointment Radiology 04/12/2023 Procedure Only Urology Travon Canales MD [address] [address] 06/07/2023 Office Visit Family Medicine Edgar Gibbs [facility] [place] [phone] Health Maintenance Due Date Last Done Comments Alpha-1 Antitrypsin 05/18/1963 Hepatitis C Screening 05/18/1963 *COPD SEVERITY VERIFIED BY PFT 03/05/2022 COVID-19 Vaccine ( season) 2022 01/19/2021, 06/10/2020, 05/20/2020 Influenza Vaccine (FLU shot) (#1) 2022 12/22/2020, 12/22/2020, 12/28/2018, Additional history exists DISCUSS TOBACCO CESSATION (REFER TO SMARTSET #5820) 06/04/2023 06/03/2022 Depression Screening 06/04/2023 06/03/2022 O2 [...] and were consensually agreed upon. Care Teams Mathematician Research Relationship Specialty Start Date End Date Edgar Gibbs MD [address] [place] [address] PCP - General Family Medicine 07/03/20 documented as of this encounter
--- OUTSIDE RECORDS SUMMARY | 2023-06-02 11:49 | External Medical Summary | Summary of Care ---
Author Name Unknown Organization [facility] Address [address] [facility] [place] [address] Phone [phone] Care Team Providers Care Carbide Tool Maker Name Role Phone Edgar Gibbs MD Primary Care P rovider Reason for Visit * Reason Onset Date Comments Test Results 12/16/2022 Encounter Details Date Type Department Care Team Description 12/16/2022 Refill Nephrology, [facility] [place] [address] [facility] [place] [address] Lucila Herrera MD 200 [facility] [place] [address] SOB (shortness of breath)*; Pneumonia due to [...] chronic, stage V (GFR under 15 ml/min) ([facility]) take 2 pills 3 x daily 180 Tab 11 10/26/2018 Active Sodium Chloride Flush (NORMAL SALINE FLUSH) 0.9 % SOLN injection FLUSH ONCE DAILY WITH 10ml 300 mL 1 03/12/2019 Active Leuprolide Acetate (3 Month) 22.5 MG Subcutaneous Kit ([employer]) Inject 22.5 mg under the skin. Every [...] MCG/ACT Inhalation Aerosol Powder Breath Activated (umeclidinium [place])Indications :Chronic obstructive pulmonary disease, unspecified COPD type [...] mRNA, LNP-s, No Pre serve, 2-Dose Series (sellpoints) 01/19/2021,06/10/2020,05/20/2020 Pneumococcal Conjugate Vacci ne, 20-valent ([id number]) 03/16/2022 Pneumococcal Polysaccharide PPV23 (Pneumovax) 12/28/2017 SEASONAL [...] encounter Miscellaneous Notes * Telephone Encounter - Lucila Herrera MD [...] signature. Information and CXR report faxed to [facility]. * Telephone Encounter - Judy Hamilton [...] Procedure Only Urology Travon Canales MD 27 [facility] [address] [place] [address] 06/07/2023 Office Visit Family Medicine Edgar Gibbs MD 68 [facility] [place] [address] Health Maintenance Due Date Last Done Comments [...] and were consensually agreed upon. Care Teams Carbide Tool Maker Relationship Specialty Start Date End Date Edgar Gibbs [place] [address] PCP - General Family Medicine 07/03/20 documented as of this encounter
--- OUTSIDE RECORDS SUMMARY | 2023-06-02 11:49 | External Medical Summary | Summary of Care ---
Author Name Unknown Organization [facility] Address [address] [facility] [place] [address] Phone [phone] Care Team Providers Care Sampler And Test Preparer Name Role Phone Edgar Gibbs MD Primary Care P rovider Reason for Visit * Reason Onset Date Comments Test Results 12/16/2022 Encounter Details Date Type Department Care Team Description 12/16/2022 Refill Nephrology, [facility] [place] [address] [facility] [place] [address] Lucila Herrera MD 200 [facility] [place] [address] SOB (shortness of breath)*; Pneumonia due to [...] stage V (GFR under 15 ml/min) ([facility]) take 2 pills 3 x daily 180 Tab 11 10/26/2018 Active Sodium Chloride Flush (NORMAL SALINE FLUSH) 0.9 % SOLN injection FLUSH ONCE DAILY WITH 10ml 300 mL 1 03/12/2019 Active Leuprolide Acetate (3 Month) 22.5 MG Subcutaneous Kit (Mindscape) Inject 22.5 mg under the skin. Every [...] MCG/ACT Inhalation Aerosol Powder Breath Activated (umeclidinium [place])Indications :Chronic obstructive pulmonary disease, unspecified COPD type [...] mRNA, LNP-s, No Pre serve, 2-Dose Series ([employer]) 01/19/2021,06/10/2020,05/20/2020 Pneumococcal Conjugate Vacci ne, 20-valent ([id number]) 03/16/2022 Pneumococcal Polysaccharide PPV23 (Pneumovax) 12/28/2017 SEASONAL [...] Miscellaneous Notes * Telephone Encounter - VICTORIANO Munoz - [...] signature. Information and CXR report faxed to [facility]. * Telephone Encounter - Judy Hamilton [...] Procedure Only Urology Travon Canales MD [address] [place] [address] [place] [address] 06/07/2023 Office Visit Family Medicine Edgar Gibbs MD [address] [place] [address] Health Maintenance Due Date Last Done Comments Alpha-1 Antitrypsin 05/18/1963 Hepatitis C Screening 05/18/1963 *COPD SEVERITY VERIFIED BY PFT 03/05/2022 COVID-19 Vaccine ( season) 2022 01/19/2021, 06/10/2020, 05/20/2020 Influenza Vaccine (FLU shot) (#1) 2022 12/22/2020, 12/22/2020, 12/28/2018, Additional history exists DISCUSS TOBACCO CESSATION (REFER TO SMARTSET #7426) 06/04/2023 06/03/2022 Depression Screening 06/04/2023 06/03/2022 O2 [...] and were consensually agreed upon. Care Teams Sampler And Test Preparer Relationship Specialty Start Date End Date Edgar Gibbs MD [address] [place] [phone] PCP - General Family Medicine 07/03/20 documented as of this encounter
--- OUTSIDE RECORDS SUMMARY | 2023-06-02 11:49 | External Medical Summary | Summary of Care ---
Author Name Unknown Organization [facility] Address [address] [facility] [place] [address] Phone [phone] Care Team Providers Care Clothing Room Supervisor Name Role Phone Edgar Gibbs MD Primary Care P rovider Reason for Visit * Reason Comments Other Encounter Details Date Type Department Care Team (Latest Contact Info) Description 12/20/2022 4:15 PM EDT Convenient Care Visit [facility] [place] [address] [place] [address] Aaron Dickinson PA-C [address] [place] [address] COPD, mild ([facility])*; Pleural effusion Allergies Active Allergy Reactions Criticality Noted Date Comments Latex 07/19/2019 Pantoprazole Sodium Edema face/lips/tongue High 04/0 02/2014 documented as of this encounter (statuses as of 12/20/2022) Medications Medication Sig Dispensed Refills Start Date [...] Acetate (3 Month) 22.5 MG Subcutaneous Kit (MPSTOR) Inject 22.5 mg under the skin. Every [...] MCG/ACT Inhalation Aerosol Powder Breath Activated (umeclidinium [place])Indications :Chronic obstructive pulmonary disease, unspecified COPD type [...] before bedtime. 14 Capsule 0 12/16/2022 Active Furosemide 20 MG Oral Tablet (Lasix)Indications: Pleural effusion Take 0.5 Tablets by mouth in the morning for 3 days. 2 Tablet 0 12/20/2022 12/23/2022 Active documented as of this encounter (statuses as of 12/20/2022) Active Problems Problem Noted Date Diagnosed Date [...] as of this encounter (statuses as of 12/20/2022) Resolved Problems Problem Noted Date Diagnosed Date [...] MELODY (acute kidney injury) 05/06/2014 Hypertension, essential /08/2015 Use of leuprolide acetate (Lupron) 12/27/2016 documented as of this encounter (statuses as of 12/20/2022) Immunizations Name Administration Dates Next Due COVID-19 mRNA, LNP-s, No Pre serve, 2-Dose Series ([employer]) 01/19/2021,06/10/2020,05/20/2020 Pneumococcal Conjugate Vacci ne, 20-valent ([id number]) 03/16/2022 Pneumococcal Polysaccharide PPV23 (Pneumovax) 12/28/2017 SEASONAL [...] Sign Reading Time Taken Comments Blood Pressure 140/92 12/20/2022 4:00 PM EDT Pulse 82 12/20/2022 4:00 PM EDT Temperature 36.8 C (98.3 F) 12/20/2022 4:00 PM ED T Respiratory Rate 22 12/20/2022 4:00 PM EDT Oxygen Saturation 93% 12/20/2022 4:00 PM EDT Inhaled Oxygen Concentration - - Weight 62.6 kg (138 lb) 12/20/2022 4:00 PM EDT Height 160 cm (5' 3") 12/20/2022 4:00 PM EDT Body Mass Index 24.45 12/20/2022 4:00 PM EDT documented in this [...] as of this encounter Progress Notes * Aaron Dickinson PA-C - 12/20/2022 4:19 PM EDT Convenient Care Basic Exam Matthew Rowe is a 77 year old year old male who presents for evaluation of Dyspnea on exertion x 1 week. On Doxycycline and Inhaler from [facility] after he Ordered a CXR and Seen Pleural Effusion and Started Doxy for possible PNA. Patient reports feeling a bit better with his CERRATO. He has 2 more days of ABX. Advised him on COPD and Low O2 sats are normal, and Advised on difficulties with Lasix and Kidney disease. This is the reason I lowered the Lasix dose to 10mg daily x 3 days. Sitting in Exam room comfortable and only has issues with exertion. Denies Fever, Dizziness, N/V/D, CP BP stable and can handle Small dose lasix Review of Systems Constitutional: Negative. HENT: Negative. Eyes: Negative. Respiratory: Positive for cough and shortness of breath. CERRATO Cardiovascular: Negative. Gastrointestinal: Negative. Endocrine: Negative. Genitourinary: Negative. Musculoskeletal: Negative. Skin: Negative. Allergic/Immunologic: Negative. Neurological: Negative. Hematological: Negative. Psychiatric/Behavioral: Negative. PAST MEDICAL HISTORY: Past Medical History: Diagnosis Date Hypertension, essential INFORMATION 04/13 [facility]- kidney failure Use of leuprolide acetate (Lupron) Past Surgical History: Procedure Laterality Date CYSTOSCOPY 5-12-2015 IR DRAINAGE CATHETER CHANGE Right 06/10/2015 CHANGE OF PERCUTANEOUS TUBE OR DRAINAGE CATHETER WITH XRAY AND CONTRAST MEDIUM performed by Gera Mcdaniel MD at [facility] [facility] [place] IR DRAINAGE CATHETER CHANGE Right 08/24/2016 CHANGE OF PERCUTANEOUS TUBE OR DRAINAGE CATHETER WITH XRAY AND CONTRAST MEDIUM performed by Gera Mcdaniel MD at [facility]Y [facility] [place] IR GENITORINARY NEPHRO/CYSTO/URETERAL 01/18/2019 IR GENITORINARY NEPHRO/CYSTO/URETERAL 04/01/2019 IR GENITORINARY NEPHRO/CYSTO/URETERAL 08/02/2019 IR GENITORINARY NEPHRO/CYSTO/URETERAL 12/13/2019 IR GENITORINARY NEPHRO/CYSTO/URETERAL 04/29/2020 IR GENITORINARY NEPHRO/CYSTO/URETERAL 08/19/2020 IR GENITORINARY NEPHRO/CYSTO/URETERAL 12/23/2020 IR GENITORINARY NEPHRO/CYSTO/URETERAL 04/14/2021 IR GENITORINARY NEPHRO/CYSTO/URETERAL 08/04/2021 IR GENITORINARY NEPHRO/CYSTO/URETERAL 12/10/2021 IR GENITORINARY NEPHRO/CYSTO/URETERAL 04/06/2022 IR GENITORINARY NEPHRO/CYSTO/URETERAL 08/15/2022 NONE Social History Tobacco Use Smoking status: Every Day Packs/day: .1 Types: Cigarettes Smokeless tobacco: Never Substance Use Topics Alcohol use: No Vaping/E-Cigarette Use Vaping/E-Cigarette Use Never User Vaping/E-Cigarette Substances Vaping/E-Cigarette Devices Patient Active Problem List Diagnosis Code Chronic [...] Bladder stones N21.0 Chronic obstructive pulmonary disease ([facility]) J44.9 Review of patient's allergies indicates: Allergen Reactions Pantoprazole Sodium Edema face/lips/tongue Latex Current Outpatient Medications Medication Sig Dispense Refill [...] MCG/ACT Inhalation Aerosol Powder Breath Activated (umeclidinium [place]) Inhale 1 Puff by mouth in the morning. 30 Each 11 Citalopram Hydrobromide 10 MG Oral Tablet (CeleXA) TAKE 1 TABLET BY MOUTH ONCE DAILY AT BEDTIME 30 Tablet 5 Atenolol 50 MG Oral Tablet (Tenormin) TAKE 1 TABLET BY MOUTH ONCE DAILY AT BEDTIME 90 Tablet 1 Nephro-Farzana 0.8 MG Oral Tablet TAKE ONE TABLET BY MOUTH ONCE DAILY 90 Tablet 3 Doxycycline Hyclate 100 MG Oral Capsule Take 1 Capsule by mouth in the morning and 1 Capsule beforebedtime. 14 Capsule 0 Furosemide 20 MG Oral Tablet (Lasix) Take 0.5 Tablets by mouth in the morning for 3 days. 2 Tablet 0 Leuprolide Acetate (3 Month) 22.5 MG Subcutaneous Kit (Eligard) Inject 22.5 mg under the skin. Every 3 months Ventolin HFA 108 (90 Base) MCG/ACT Inhalation Aerosol Solution Inhale 2 Puffs by mouth every 4 hours as needed for Cough, Shortness of Breath or Wheezing. (Patient not taking: Reported on 06/03/2022) 18 g 5 No current facility-administered medications for this visit. Nursing Notes and Vital Signs reviewed. BP 140/92 (BP Site: Right Arm, BP Position: Sitting, BP Cuff Size: Regular) | Pulse 82 | Temp 36.8 C (98.3 F) (Tympanic) | Resp 22 | Ht 1.6 m (5' 3") | Wt 62.6 kg (138 lb) | SpO2 93% | BMI 24.45 kg/m | BSA 1.67 m Physical Exam Constitutional: Appearance: Normal appearance. He is normal weight. HENT: Head: Normocephalic and atraumatic. Right Ear: Tympanic membrane, ear canal and external ear normal. Left Ear: Tympanic membrane, ear canal and external ear normal. Nose: Nose normal. Mouth/Throat: Pharynx: Oropharynx is clear. Eyes: Extraocular Movements: Extraocular movements intact. Cardiovascular: Rate and Rhythm: Normal rate and regular rhythm. Pulses: Normal pulses. Heart sounds: Normal heart sounds. Pulmonary: Effort: Pulmonary effort is normal. Breath sounds: Normal breath sounds. Abdominal: General: Abdomen is flat. Bowel sounds are normal. Palpations: Abdomen is soft. Musculoskeletal: General: Normal range of motion. Cervical back: Normal range of motion and neck supple. Skin: General: Skin is warm. Capillary Refill: Capillary refill takes less than 2 seconds. Neurological: General: No focal deficit present. Mental Status: He is alert and oriented to person, place, and time. Mental status is at baseline. Psychiatric: Mood and Affect: Mood normal. Behavior: Behavior normal. Thought Content: Thought content normal. Judgment: Judgment normal. ASSESSMENT: COPD, mild (HCC) (Primary) Cont Doxycycline Pleural effusion - Furosemide 20 MG Oral Tablet (Lasix); Take 0.5 Tablets by mouth in the morning for 3 days. - See PCP Monday12/26/22 - Tell [facility] regarding short course lasix Follow Up: Return if symptoms worsen or fail to improve, for Clinic Visit. | For: Clinic Visit Aaron Dickinson PA-C [address] [address] documented in this encounter Nursing Notes * Ravin Grey LPN - 12/20/2022 4:00 PM EDT Matthew Rowe is a 77 year old male who presents to walk-in clinic today complaining of Chief Complaint Patient presents with Other Main Symptoms:CERRATO Cause: unknown How lon week Tried: Doxycycline and Inhaler Pt accompanied by: self documented in this encounter Plan of Treatment Upcoming Encounters Date Type Department Care Team (Late st Contact Info) Description 12/26/2022 12:40 PM EDT Office Visit [facility] [address] [place] [phone] Edgar Gibbs MD [address] [place] [address] 12/28/2022 11:00 AM EDT Appointment Interventional Radiology [facility] [place], [facility] 1st Floor [address] [place] [address] 04/12/2023 3:30 PM EST Procedure Only Urology, [facility] [address] [facility] [place] [address] Travon Canales MD [address] [place] [address] [facility] [place] [address] 06/07/2023 11:50 AM EDT Office Visit [facility] [address] [place] [phone] Edgar Gibbs MD [address] [place] [address] Health Maintenance Due Date Last Done Comments [...] of this encounter Visit Diagnoses Diagnosis COPD, mild (HCC)- Primary Chronic airway obstruction, not elsewhere classified Pleural effusion Unspecified pleural effusion documented in this encounter Advance Directives Latest Code Status on File Code Status Date Activated Date Inactivated Comments Full Code 04/15/2015 4:40 PM 04/16/2015 5:24 PM This order reflects the patients wishes and were consensually agreed upon. Care Teams Clothing Room Supervisor Relationship Specialty Start Date End Date Edgar Gibbs MD [address] [place] [address] PCP - General Family Medicine 07/03/20 documented as of this encounter
--- OUTSIDE RECORDS SUMMARY | 2023-06-02 11:49 | External Medical Summary | Summary of Care ---
Author Name Unknown Organization [facility] Address [address] [facility] [place] [address] Phone [phone] Care Team Providers Care Staffing Recruiter Name Role Phone Edgar Gibbs MD Primary Care P rovider Reason for Visit * Reason Onset Date Comments Outpatient Testing 12/08/2022 Encounter Details Date Type Department Care Team Description 12/08/2022 Telephone Nephrology, [facility] 200 [facility] [place] [address] Pako Ramos MD 200 [facility] [place] [address] Outpatient Testing Allergies Active Allergy Reactions Severity Noted Date Comments Latex 07/19/2019 Pantoprazole Sodium Edema face/lips/tongue High 04/0 02/2014 documented as of this encounter (statuses as of 12/08/2022) Medications Medication Sig Dispensed Refills Start Date [...] Acetate (3 Month) 22.5 MG Subcutaneous Kit (WeLike) Inject 22.5 mg under the skin. Every [...] MCG/ACT Inhalation Aerosol Powder Breath Activated (umeclidinium [place])Indications :Chronic obstructive pulmonary disease, unspecified COPD type [...] as of this encounter (statuses as of 12/08/2022) Active Problems Problem Noted Date Chronic obstructive [...] as of this encounter (statuses as of 12/08/2022) Resolved Problems Problem Noted Date Resolved Date [...] as of this encounter (statuses as of 12/08/2022) Immunizations Name Administration Dates Next Due COVID-19 mRNA, LNP-s, No Pre serve, 2-Dose Series (Desti) 01/19/2021,06/10/2020,05/20/2020 Pneumococcal Conjugate Vacci ne, 20-valent ([id number]) 03/16/2022 Pneumococcal Polysaccharide PPV23 (Pneumovax) 12/28/2017 SEASONAL [...] Office Visit Urology Travon Canales MD [address] [place] [address] [place] [phone] 06/07/2023 Office Visit Family Medicine Edgar Gibbs MD [address] [place] [address] Scheduled Orders Name Type Priority Associated Diagnoses Orde r Schedule XR CHEST 2 VIEWS Medical Imaging Routine SOB (shortness of breath) Expected: 12/13/2022 (Approximate), Expires: 01/09/2024 Health Maintenance Due Date Last Done Comments [...] (shortness of breath)- Primary Shortness of breath documented in this encounter Advance Directives Latest Code Status on File Code Status Date Activated Date Inactivated Comments Full Code 04/15/2015 4:40 PM 04/16/2015 5:24 PM This order reflects the patients wishes and were consensually agreed upon. Care Teams Staffing Recruiter Relationship Specialty Start Date End Date Edgar Gibbs MD [address] [place] [address] PCP - General Family Medicine 07/03/20 documented as of this encounter
--- OUTSIDE RECORDS SUMMARY | 2023-06-02 11:49 | External Medical Summary | Summary of Care ---
Author Name Unknown Organization [facility] Address [address] [facility] [place] [address] Phone [phone] Care Team Providers Care Radiation Therapist Name Role Phone Edgar Gibbs MD Primary Care P rovider Reason for Visit * Reason Onset Date Comments Test Results 12/16/2022 Urinary Tract Infection Symptoms 12/16/2022 Encounter Details Date Type Department Care Team Description 12/16/2022 [facility]ill [facility] [address] [place] [address] Lucila Herrera MD [address] [facility] [place] [id number] SOB (shortness of breath)*; Pneumonia due to [...] stage V (GFR under 15 ml/min) ([facility]) take 2 pills 3 x daily 180 Tab 11 10/26/2018 Active Sodium Chloride Flush (NORMAL SALINE FLUSH) 0.9 % SOLN injection FLUSH ONCE DAILY WITH 10ml 300 mL 1 03/12/2019 Active Leuprolide Acetate (3 Month) 22.5 MG Subcutaneous Kit ([employer]) Inject 22.5 mg under the skin. Every [...] MCG/ACT Inhalation Aerosol Powder Breath Activated (umeclidinium [place])Indications :Chronic obstructive pulmonary disease, unspecified COPD type [...] mRNA, LNP-s, No Pre serve, 2-Dose Series ([employer]) 01/19/2021,06/10/2020,05/20/2020 Pneumococcal Conjugate Vacci ne, 20-valent ([id number]) 03/16/2022 Pneumococcal Polysaccharide PPV23 (Pneumovax) 12/28/2017 SEASONAL [...] Miscellaneous Notes * Telephone Encounter - VICTORIANO Fernández - 12/16/2022 1:08 PM EDT Reason for patient's call: Patient returning your call to schedule appointment Caller was transferred to [facility] at the clinic. * Telephone Encounter - [...] signature. Information and CXR report faxed to [facility]. * Telephone Encounter - Judy Hamilton [...] Visit Family Medicine Edgar Gibbs MD [address] [place] [address] Health Maintenance Due Date Last [...] and were consensually agreed upon. Care Teams Radiation Therapist Relationship Specialty Start Date End Date Edgar Gibbs MD [address] [place] [id number] PCP - General Family Medicine 07/03/20 documented as of this encounter
--- OUTSIDE RECORDS SUMMARY | 2023-06-02 11:50 | External Medical Summary | Summary of Care ---
Author Name Unknown Organization [facility] Address [address] [facility] [place] [address] Phone [phone] Care Team Providers Care Diamond Die Driller Name Role Phone Edgar Gibbs MD Primary Care P rovider Encounter Details Date Type Department Care Team Description 12/01/2022 Result Scan Unspecified Department Pako Ramos MD [address] [place] [id number] <No scans attached> Allergies Active Allergy Reactions Severity Noted Date [...] MCG/ACT Inhalation Aerosol Powder Breath Activated (umeclidinium [place])Indications: Chronic obstructive pulmonary disease, unspecified COPD type [...] mRNA, LNP-s, No Pre serve, 2-Dose Series ([employer]) 01/19/2021,06/10/2020,05/20/2020 Pneumococcal Conjugate Vacci ne, 20-valent ([id number]) 03/16/2022 Pneumococcal Polysaccharide PPV23 (Pneumovax) 12/28/2017 SEASONAL [...] Encounters Date Type Specialty Care Team Description 12/05/2022 Office Visit [facility] [address] [facility] [place] [id number] 12/12/2022 Appointment Radiology 04/12/2023 Office Visit Urology Travon Canales MD [address] [facility] [address] [place] [address] Health Maintenance Due Date Last Done Comments Alpha-1 Antitrypsin 05[birth year]18/1963 Hepatitis C Screening 05/18/1963 *COPD SEVERITY VERIFIED BY PFT 03/05/2022 COVID-19 Vaccine ( season) 2022 01/19/2021, 06/10/2020, 05/20/2020 Influenza Vaccine (FLU shot) (#1) 2022 12/22/2020, 12/22/2020, 12/28/2018, Additional history exists DISCUSS TOBACCO CESSATION (REFER TO SMARTSET #[id number]) 06/04/2023 06/03/2022 Depression Screening 06/04/2023 06/03/2022 O2 ASSESSMENT COMPLETED IN PAST YEAR FOR COPD 08/16/2023 08/15/2022 DTaP,Tdap,and Td Vaccines (2 - Td or [...] Date/Time Associated Diagnosis Comments OUTSIDE LAB RESULTS 12/01/2022 documented in this encounter Results * OUTSIDE LAB RESULTS (12/01/2022) 12/01/2022 Pako Ramos MD LABORATORY documented in this encounter Advance Directives Latest Code Status on File Code Status Date Activated Date Inactivated Comments Full Code 04/15/2015 4:40 PM 04/16/2015 5:24 PM This order reflects the patients wishes and were consensually agreed upon. Care Teams Diamond Die Driller Relationship Specialty Start Date End Date Edgar Gibbs MD [address] [place] [address] PCP - General Family Medicine 07/03/20 documented as of this encounter
[2023-06-02] MEDS: amLODIPine BESYLATE 5 MG TAB PO SCH (12:01)
--- NOTE | 2023-06-02 12:03 | XRay Report ---
SINGLE VIEW CHEST CLINICAL HISTORY: Pneumothorax. FINDINGS: An AP, portable, upright chest radiograph is compared to study performed earlier the same d ay 06/02/2023 and correlated with chest CT dated 02/18/2022. The heart is enlarged and noting atheroscl erotic calcification of the thoracic. There is pulmonary vascular congestion. Bilateral airspace opac ities likely represent interstitial edema. Emphysema and chronic interstitial thickening is similar t o previous. A chest tube is again seen at the right lung base. There are right larger than left pleu ral effusions with dependent consolidation. A pneumothorax at the lateral right apex is unchanged wit h approximately 12 mm of pleural separation. No pneumothorax is seen on the left. The skeletal struct ures are osteopenic. There are chronic/healed left-sided rib fractures. IMPRESSION: 1. Cardiomegaly and emphysema with evidence of congestive failure. 2. Bilateral opacities could represent multifocal pneumonia and/or pulmonary edema. Correlate clinica lly. 3. A chest tube at the right lung base is unchanged in position and a small residual right apical pne umothorax is similar to today's earlier examination. 4. Right larger than left pleural effusions with dependent consolidation. ACT 112: Negative or not required by law. Electronically signed by: Pelon Bonilla M.D. 06/02/2023 12:02 PM
[2023-06-02 12:13] LABS: Hematocrit (blood only) 22.8 % (42.0-52.0); Hemoglobin 7.6 g/dl (14.0-18.0); Mean Corpuscular Hemoglobin 32.8 pg (25.0-34.0); Mean Corpuscular Hgb Conc 33.3 g/dL (32.0-36.0); Mean Corpuscular Volume 98.3 fL (80.0-100.0); Mean Platelet Volume 9.6 fL (9.4-12.4); Platelet Count 175 K/uL (130-400); RDW Standard Deviation 45.9 fL (36.4-46.3); Red Blood Count 2.32 M/uL (4.70-6.10)
--- NOTE | 2023-06-02 12:47 | Nephrology Consultation ---
Date of Consultation June 02, 2023 Assessment & Plan (1) ESRD (end stage renal disease) on dialysis: his normal schedule is Monday. He has a good AV fistula. he had incomplete dialysis yesterday. Given significant respiratory failure and shortness of breath and pulmonary edema we will do extra dialysis today for 3 hours and try to take 2-2.5 kilos. It is worth noting that patient is very resistant in fluid removal with dialysis as he does not feel good. he never has significant edema and all of his fluid is in the lungs and has caused significant problems in the last 1 year with recurrent pleural effusion requiring thoracocentesis. He follows with intervals Radiology on a regular basis he will have dialysis again tomorrow for 3 hours as per his normal schedule of TTS. (2) Acute hypoxemic respiratory failure: multifactorial with both pulmonary edema pleural effusion as well as pneumothorax. Currently has a chest tube. discuss case with Pulmonary critical medicine and we have decided to do extra dialysis today. Plan case complexity high in volume multiple note review from various specialists from interventional radiologist pulmonary medicine critical care medicine. patient unable to give history and history was obtained from . History of Present Illness Reason for Consultation: Dialysis patient admitted with respiratory failure Attending Physician: Varun Reyes MD History of Present Illness 78-year-old male who is my dialysis patient in [facility]. schedule is Monday and he did have dialysis yesterday but was shortened because of hypoxia and patient looking very sick.Medical history significant for hypertension, valvular heart disease (moderate MS/TR, mild MR TTE 2023), pulmonary hypertension, COPD, recurrent right pleural effusion intermittent thoracocentesis, nocturnal hypoxemia on home O2 at night, ESRD on HD, prostate cancer on Lupron, history of hydronephrosis, chronic anemia (baseline hemoglobin of 10), ongoing tobacco abuse. he had thoracocentesis at [facility] on May 31, 2023 which is 2 days ago and had 900 mL of fluid removed. workup done in the emergency department yesterday showed pneumothorax and then had a chest tube placed. patient is currently in ICU and requiring significantly higher oxygen than usual as well as BiPAP. imaging shows pneumothorax as well as pulmonary edema and pleural effusion. patient is compliant with dialysis but does not like fluid removal with dialysis and usually allows very minimal fluid removal. ROS--- significant shortness of breath. he had some chills and severe weakness. otherwise 12 systems reviewed and negative. patient is too weak and short of breath at this time to give detailed history but his was at the bedside. physical examination elderly white male who appears to be declining overall health. he now appears fairly thin and cachectic. significant respiratory distress on high flow oxygen mucous membrane is moist. Neck is supple jugular venous distention present chest bilateral decreased breath sound more so in the right. CVS S1 and S2 regular soft systolic murmur heard abdomen is soft nontender extremities shows absolutely no edema Allergies Allergy/AdvReac Type Severity Reaction Status Date / Time pantoprazole Allergy Unknown HIVES Verified 06/01/23 19:59 Home Medications Medication Instructions Recorded Confirmed Type calcium acetate(phosphat bind) 667 2,001 mg PO TIDM 03/02/18 06/01/23 History mg capsule atenolol 50 mg tablet 50 mg PO HS 03/16/18 06/01/23 History amlodipine 5 mg tablet 5 mg PO QAM 02/17/22 06/01/23 History citalopram 10 mg tablet 10 mg PO HS 02/17/22 06/01/23 History cholecalciferol (vitamin D3) 50 50 mcg PO DAILY 02/18/22 06/01/23 History mcg (2,000 unit) tablet (Vitamin D3) epoetin beta, methoxy peg 100 100 mcg IV .SELECTED DATES 02/18/22 06/01/23 History mcg/0.3 mL injection syringe (Mircera) ferric pyrophosphate citrate 27.2 See Rx Instructions .Route .COMPLEX 02/18/22 06/01/23 History mg iron/5 mL soln for hemodialysate (Triferic) protein supplement See Rx Instructions .Route .COMPLEX 02/18/22 06/01/23 History albuterol sulfate 90 mcg/actuation 2 puff inhalation Q4 PRN 06/01/23 06/01/23 History aerosol inhaler (Ventolin HFA) cough,SOB,wheezing leuprolide acetate (6 month) 45 mg 45 mg IM .EVERY 6 MONTHS 06/01/23 06/01/23 History intramuscular syringe kit (Lupron Depot) torsemide 100 mg tablet 100 mg PO UD 06/01/23 06/01/23 History vitamin B comp no.3-folic acid 1 1 tab PO DAILY 06/01/23 06/01/23 History mg-vit C 60 mg-biotin 300 mcg tablet ([place]-Farzana Rx) Patient History Medical History Hypertensive urgency AV fistula left arm Permanent central venous catheter in place Tobacco use Chronic anemia Chronic indwelling Gamboa catheter Obstruction of nephrostomy tube Admitted for this 11/2017 along with hypertensive urgency HTN (hypertension) Was treated for hypertensive urgency at [facility] 11/2017 Prostate cancer Currently in remission. On Leupron injections. CKD (chronic kidney disease), stage V DIALYSIS 3 X WEEK ELENA PALMA (//MON) VIA PERMA CATH Bladder stones Urinary retention Hyperkalemia On a K restricted diet Surgical History History of surgery PLACEMENT OF NEPHROSTOMY TUBE Family History Other Breast cancer Lung cancer No pertinent family history Stomach cancer Social History Smoking Status: Current every day smoker Tobacco Type: Cigarettes Cigarettes Per Day: 2 packs a week; Second Hand Exposure: No; Do You Dip or Chew Tobacco: No; Hx Alcohol Use: No Hx Substance Use: No Preferred Language: [place] Islander Communication Ability: Effective Visual Impairment: No Limitations Sql Report Writer Required: No Beliefs That Will Affect Care: None marital status: Current Living Situation: Spouse Current Living Situation Comment: Home Feels Safe at Home: Yes Safety Concerns: Feels Safe At This Time Assistive Devices: Oxygen - at Night and Other Results & Data Vital Signs (Past 12 Hours) Vital Signs Pulse Pulse Resp BP Pulse Ox O2 Del Method O2 Flow Rate 06/02/23 09:00 BiPAP 06/02/23 08:39 71 06/02/23 08:39 71 06/02/23 08:00 90 29 H 94 06/02/23 07:10 110 H 26 H 93 Oxymask 11 06/02/23 07:02 104 H 06/02/23 04:31 82 16 152/87 H 95 Nasal Cannula 2 06/02/23 02:21 Nasal Cannula 2 06/02/23 01:00 84 26 H 126/76 94 Nasal Cannula 2 FiO2 06/02/23 09:00 50 06/02/23 08:39 06/02/23 08:39 06/02/23 08:00 50 06/02/23 07:10 06/02/23 07:02 06/02/23 04:31 06/02/23 02:21 06/02/23 01:00 Laboratory Results reviewed Diagnostic Findings reviewed
--- NOTE | 2023-06-02 13:43 | Cardiology Consultation ---
Date of Consultation June 02, 2023 Assessment & Plan (1) Demand ischemia: -Patient with findings of demand ischemia with noted elevation in troponin I, which is peaked at 1762 PG per mL and trended down to 1381 PG per mL. ECG on arrival to the hospital reveals lateral ischemic changes which have since resolved on repeat tracing this morning. Echocardiogram reveals stable findings of mild concentric left ventricular hypertrophy, no regional wall motion abnormalities, LVEF 55%, mild aortic valve calcification and mild aortic stenosis noted on today's echo. The aortic stenosis was graded as being moderate in severity on previous echocardiogram performed February, as an outpatient. The previously noted finding of moderate elevation in pulmonary systolic pressure observed on the previous echo has resolved. -Patient likely developed supply/demand mismatch in the setting of pneumothorax and resultant transient hypoxia. -Given the patient's history of end-stage renal disease for which he has been on dialysis for about 5 years, and aortic stenosis, there is a high likelihood that he has underlying coronary disease, but I do not think his symptoms are suggestive of an acute intra coronary plaque rupture. -The patient has a pre-existing anemia. -He was markedly hypertensive on presentation while in respiratory distress and blood pressures have improved. Continue outpatient amlodipine and atenolol. -Dialysis as per schedule recommended by nephrology. No further cardiac testing felt to be indicated at present. I think it would be reasonable for him to establish with cardiology on a routine basis for follow-up of his aortic stenosis with plans for repeat echocardiogram in February, as previously planned by his primary care provider per outpatient notes. Findings and plan discussed with patient's spouse and daughter at the bedside. Call with questions or concerns. History of Present Illness Attending Physician: Varun Reyes MD History of Present Illness Mr Rowe is an 78 year old male seen in cardiology consultation per the request of Dr. Marroquin for the evaluation of an elevation in the high- sensitivity troponin level. The patient is seen in ICU room 111. He is accompanied by his spouse, Amy, and daughter, Raquel. Patient with recent right-sided thoracentesis which was performed 05/31/2023 at [facility]. He initially felt reasonably well, however when he was at his routine dialysis session yesterday on 05/31/2022 he was noted to have a low pulse oximetry during dialysis in the range of 82 to 85%. His supplemental oxygen dose was increased and his spouse drove from home to [place], [place]. While driving home he developed progressive distress, heavy perspiration, and was noted to have respiratory distress. When they arrived in their driveway his pulse oximetry was as low as 61% prompting Eliana to call EMS. On arrival to the emergency department patient was noted to be hypertensive. Portable chest x-ray revealed a right loculated pneumothorax as well as pulmonary edema. Patient underwent insertion of a pigtail catheter for treatment of pneumothorax with resolution of his symptoms. Follow-up chest x-ray reveals significant interval improvement. Patient was admitted to the intensive care unit. During my assessment he was on BiPAP with oxygen saturation in the low 90s. Patient has a history of recurrent pleural effusions attributed to diastolic dysfunction and renal insufficiency. He has not followed with cardiology in the past. In February, he underwent an outpatient echocardiogram within the [facility] for evaluation of a murmur and was found to have preserved ejection fraction and moderate aortic stenosis. The pulmonary systolic pressure was moderately elevated at the time of the echocardiogram in February, with pulmonary artery systolic pressure estimated to be 58 mmHg. Patient denies any recent or current anginal symptoms. Allergies Allergy/AdvReac Type Severity Reaction Status Date / Time pantoprazole Allergy Unknown HIVES Verified 06/01/23 19:59 Home Medications Medication Instructions Recorded Confirmed Type calcium acetate(phosphat bind) 667 2,001 mg PO TIDM 03/02/18 06/01/23 History mg capsule atenolol 50 mg tablet 50 mg PO HS 03/16/18 06/01/23 History amlodipine 5 mg tablet 5 mg PO QAM 02/17/22 06/01/23 History citalopram 10 mg tablet 10 mg PO HS 02/17/22 06/01/23 History cholecalciferol (vitamin D3) 50 50 mcg PO DAILY 02/18/22 06/01/23 History mcg (2,000 unit) tablet (Vitamin D3) epoetin beta, methoxy peg 100 100 mcg IV .SELECTED DATES 02/18/22 06/01/23 History mcg/0.3 mL injection syringe (Mircera) ferric pyrophosphate citrate 27.2 See Rx Instructions .Route .COMPLEX 02/18/22 06/01/23 History mg iron/5 mL soln for hemodialysate (Triferic) protein supplement See Rx Instructions .Route .COMPLEX 02/18/22 06/01/23 History albuterol sulfate 90 mcg/actuation 2 puff inhalation Q4 PRN 06/01/23 06/01/23 History aerosol inhaler (Ventolin HFA) cough,SOB,wheezing leuprolide acetate (6 month) 45 mg 45 mg IM .EVERY 6 MONTHS 06/01/23 06/01/23 History intramuscular syringe kit (Lupron Depot) torsemide 100 mg tablet 100 mg PO UD 06/01/23 06/01/23 History vitamin B comp no.3-folic acid 1 1 tab PO DAILY 06/01/23 06/01/23 History mg-vit C 60 mg-biotin 300 mcg tablet (Gill-Farzana Rx) Patient History Medical History Hypertensive urgency AV fistula left arm Permanent central venous catheter in place Tobacco use Chronic anemia Chronic indwelling Gamboa catheter Obstruction of nephrostomy tube Admitted for this 11/2017 along with hypertensive urgency HTN (hypertension) Was treated for hypertensive urgency at [facility] 11/2017 Prostate cancer Currently in remission. On Leupron injections. CKD (chronic kidney disease), stage V DIALYSIS 3 X WEEK ELENA PALMA (//SAT) VIA PERMA CATH Bladder stones Urinary retention Hyperkalemia On a K restricted diet Surgical History History of surgery PLACEMENT OF NEPHROSTOMY TUBE Family History Other Breast cancer Lung cancer No pertinent family history Stomach cancer Social History Smoking Status: Current every day smoker Tobacco Type: Cigarettes Cigarettes Per Day: 2 packs a week; Second Hand Exposure: No; Do You Dip or Chew Tobacco: No; Hx Alcohol Use: No Hx Substance Use: No Preferred Language: Hungarian Communication Ability: Effective Visual Impairment: No Limitations Jet Operator Required: No Beliefs That Will Affect Care: None marital status: Current Living Situation: Spouse Current Living Situation Comment: Home Feels Safe at Home: Yes Safety Concerns: Feels Safe At This Time Assistive Devices: Oxygen - at Night and Other Review of Systems Review of Systems: All systems reviewed & are unremarkable except as noted in HPI & below Physical Exam Constitutional: + thin and + cachectic Respiratory: Auscultation: + diminished lung sounds (Decreased breath sounds at the right base); no crackles and no rales Cardiovascular: Rate/Rhythm: regular rate and regular rhythm Heart Sounds: + murmur (2/6 systolic murmur) Extremities: no edema Chest (Breasts): Chest: + vascular access device or port (Right-sided chest tube in place) Gastrointestinal (Abdomen): normal bowel sounds, soft, nontender, no hepatosplenomegaly Neurologic: PERRL, EOMI, accommodation nl, no face palsy, no dysarthria Results & Data Vital Signs (Past 12 Hours) Vital Signs Temp Pulse Pulse Pulse Resp BP Pulse Ox 06/02/23 13:22 06/02/23 13:00 79 23 92 06/02/23 13:00 133/67 06/02/23 12:30 36.7 C 84 06/02/23 12:00 79 25 H 93 06/02/23 12:00 119/66 06/02/23 11:00 79 25 H 100 06/02/23 11:00 144/80 H 06/02/23 10:00 71 24 100 06/02/23 10:00 100/61 06/02/23 09:28 70 23 96 06/02/23 09:28 110/63 06/02/23 09:00 06/02/23 08:39 71 06/02/23 08:39 71 06/02/23 08:00 90 29 H 94 06/02/23 07:10 110 H 26 H 93 06/02/23 07:02 104 H 06/02/23 04:31 82 16 152/87 H 95 06/02/23 02:21 O2 Del Method O2 Flow Rate FiO2 06/02/23 13:22 Nasal Cannula 2 06/02/23 13:00 06/02/23 13:00 06/02/23 12:30 06/02/23 12:00 06/02/23 12:00 06/02/23 11:00 06/02/23 11:00 06/02/23 10:00 06/02/23 10:00 06/02/23 09:28 BiPAP 50 06/02/23 09:28 06/02/23 09:00 BiPAP 50 06/02/23 08:39 06/02/23 08:39 06/02/23 08:00 50 06/02/23 07:10 Oxymask 11 06/02/23 07:02 06/02/23 04:31 Nasal Cannula 2 06/02/23 02:21 Nasal Cannula 2 Laboratory Results Cardiac Enzymes 06/01/23 06/01/23 06/02/23 Range/Units 18:20 20:37 00:14 AST 18 (13-39) U/L Troponin I High Sens 74.4 H* 380.1 H* D 915.1 H* D (0-20) pg/ml B-Natriuretic Peptide 3197 H (0-100) pg/ml 06/02/23 06/02/23 Range/Units 05:44 11:12 AST (13-39) U/L Troponin I High Sens 1762.5 H* D 1381.7 H* D (0-20) pg/ml B-Natriuretic Peptide (0-100) pg/ml Coagulation 06/01/23 06/01/23 06/02/23 Range/Units 18:20 21:03 05:44 APTT 29 32 H (21-31) Seconds B-Natriuretic Peptide 3197 H (0-100) pg/ml CBC 06/01/23 06/02/23 06/02/23 Range/Units 18:20 05:44 11:56 WBC 11.63 H 6.70 8.10 (4.8-10.8) K/ul RBC 2.69 L 2.40 L 2.32 L (4.70-6.10) M/uL Hgb 9.0 L 7.9 L 7.6 L (14.0-18.0) g/dl Hct 26.3 L 23.4 L 22.8 L (42.0-52.0) % Plt Count 230 178 175 (130-400) K/uL Neut # (Auto) 10.02 H 4.93 (1.40-6.50) K/uL Lymph # (Auto) 0.80 L 1.07 L (1.20-3.40) K/uL Hill # (Auto) 0.56 0.55 (0.11-0.59) K/uL Eos # (Auto) 0.09 0.09 (0.00-0.50) K/uL Baso # (Auto) 0.05 0.04 (0.00-0.20) K/uL Comprehensive Metabolic Panel 06/01/23 06/02/23 Range/Units 18:20 05:44 Sodium 136 136 (136-145) mmol/L Potassium 3.8 4.6 D (3.5-5.1) mmol/L Chloride 93 L 97 L (98-107) mmol/L Carbon Dioxide 32 32 (21-32) mmol/L BUN 25 H 34 H (6-23) mg/dl Creatinine 3.42 H 4.45 H D (0.6-1.4) mg/dl Glucose 237 H 82 (70-99(Fasting)) mg/dl Calcium 9.0 9.2 (8.6-10.3) mg/dl AST 18 (13-39) U/L ALT 15 (7-52) U/L Alkaline Phosphatase 73 (34-104) U/L Total Protein 7.4 (6.0-8.3) gm/dl Albumin 3.6 (3.4-5.0) gm/dl Intake and Output 06/01/23 06/02/23 06/02/23 22:59 06:59 14:59 Output Total 785 / 785 Balance -785 / -785 Output: Urine 275 / 275 Chest Tube Drainage 510 / 510 Right Lower Lateral Chest Pleur 510 / 510 -Evac Yolis Other: Weight 63 kg 57.3 kg Weight Measurement Method Built in [facility] Built in [facility] Patient Weight 06/03/23 06:59 Weight 57.3 kg Diagnostic Findings EKG performed 06/01/2023 at 1828 and interpreted independently reveals sinus tachycardia 101 bpm, ST T wave changes noted in the lateral leads consistent with ischemia. Repeat tracing performed 06/02/2023 at 7:40 AM. Sinus rhythm 84 bpm, QT interval prolonged at 498 ms. The previously noted lateral repolarization changes have resolved.
[2023-06-02] MEDS: EPOETIN ALFA 20,000 UNITS/ML VIAL IV ONE (15:07)
[2023-06-02] MEDS: ACETAMINOPHEN 325 MG TAB PO PRN (15:35)
[2023-06-02] MEDS: cefTRIAXone SODIUM 1,000 MG in DEXTROSE 5 % MINI-B 50 ML IV SCH (15:35)
[2023-06-02] MEDS: CITALOPRAM 20 MG TAB PO SCH (21:11)
[2023-06-02] MEDS: ATENOLOL 50 MG TABLET PO SCH (21:11)
[2023-06-03 04:27] LABS: Hematocrit (blood only) 24.8 % (42.0-52.0); Hemoglobin 7.8 g/dl (14.0-18.0); Mean Corpuscular Hemoglobin 31.8 pg (25.0-34.0); Mean Corpuscular Hgb Conc 31.5 g/dL (32.0-36.0); Mean Corpuscular Volume 101.2 fL (80.0-100.0); Mean Platelet Volume 10.2 fL (9.4-12.4); Platelet Count 185 K/uL (130-400); RDW Coefficient of Variation 12.9 % (11.5-14.5); RDW Standard Deviation 47.7 fL (36.4-46.3); Red Blood Count 2.45 M/uL (4.70-6.10); White Blood Count 6.72 K/ul (4.8-10.8)
[2023-06-03 04:28] LABS: BUN Creatinine Ratio 7.8 (10-20); Calcium 9.2 mg/dl (8.6-10.3); Creatinine Clr Calc Pharmacy 11.6 ml/min; Est GFR (African American) 14.9 ml/min; Est GFR (Non-African American) 12.9 ml/min; Magnesium 2.1 mg/dl (1.7-2.4); Phosphorus 4.2 mg/dl (2.5-4.9); Potassium 4.4 mmol/L (3.5-5.1)
--- NOTE | 2023-06-03 07:16 | Electrocardiogram Report ---
Test Reason : Blood Pressure : / mmHG Vent. Rate : 101 BPM Atrial Rate : 101 BPM P-R Int : 164 ms QRS Dur : 080 ms QT Int : 380 ms P-R-T Axes : 054 -01 124 degrees QTc Int : 492 ms Sinus tachycardia Possible Left atrial enlargement Abnormal ECG When compared with ECG of 17-FEB-2022 23:13, Vent. rate has increased BY 37 BPM T wave inversion now evident in Lateral leads Confirmed by Anderson Price ([id number]) on 06/03/2023 7:15:44 AM Referred By: REFERRED SELF Confirmed By:Anderson Price
--- NOTE | 2023-06-03 07:26 | Electrocardiogram Report ---
Test Reason : Blood Pressure : / mmHG Vent. Rate : 084 BPM Atrial Rate : 084 BPM P-R Int : 172 ms QRS Dur : 080 ms QT Int : 422 ms P-R-T Axes : 052 -20 067 degrees QTc Int : 498 ms Poor data quality, interpretation may be adversely affected Normal sinus rhythm Left ventricular hypertrophy with repolarization abnormality ( Sokolow-Flores ) Prolonged QT Abnormal ECG When compared with ECG of 01-JUN-2023 18:28, (unconfirmed) No significant change was found Confirmed by Anderson Price ([id number]) on 06/03/2023 7:26:01 AM Referred By: REFERRED SELF Confirmed By:Anderson Price
--- NOTE | 2023-06-03 08:16 | Critical Care Progress Note ---
Date of Service June 03, 2023 Assessment & Plan (1) Acute hypoxemic respiratory failure: (2) Pulmonary edema: (3) Pneumothorax: (4) ESRD (end stage renal disease) on dialysis: (5) Hypertensive urgency: Plan Medically complex 78-year-old male with a history of end-stage renal disease on hemodialysis, right nephrostomy tube due to obstructive stones, hypertension and diastolic heart failure who presented to the hospital due to iatrogenic pneumothorax related to thoracentesis in [place] on Monday and CHF. 24-hour events: Patient has been weaned down to his baseline oxygen requirement. Chest tube remains to suction at 40 cm of water. Neurologic: No current issues Pulmonary: Back to baseline oxygen requirement. Chest x-ray looks better with small lateral component of the pneumothorax. No air leak. Continue chest tube at 40 cm of suction and repeat chest x-ray in a.m.. If he does well may consider clamping trials. Pulmonary edema appears improved. Will defer long- term management of his recurrent pleural effusion to his outpatient pulmonary group although serial thoracentesis may not be a great option moving forward. Depending on clinical course the patient may benefit from CPAP overnight however given his pneumothorax, will avoid positive airway pressure for now. Cardiovascular: Continue antihypertensive regimen from home. Cardiology consultation noted. Continue antihypertensives Gastrointestinal: Will initiate Pepcid 20 mg daily. No active signs of bleeding. Advancing diet as tolerated Renal: Per nephrology. He has a right nephrostomy tube that does put out urine. Defer diuretics to nephrology Infectious disease: No clear signs of infectious etiology at this time. Hematologic: Patient with progressively worsening anemia of unclear etiology. Potentially related to end-stage renal disease. No signs of active bleeding. Okay to start DVT prophylaxis Endocrine: Maintain euglycemia. VTE prophylaxis: SCD CODE STATUS: Full Patient is appropriate to transfer out of the intensive care unit. Will continue to follow for chest tube and pneumothorax as well as an inpatient. Discussed with hospitalist. Critical care services signing off. Admission and Anticipated Discharge Date Admission Date: June 01, 2023 Subjective Patient seen and examined. EMR reviewed. Discussed with off going pul health program analyst and with bedside critical care nurse and on multidisciplinary rounds. Patient is doing well. He did use CPAP last night. He is back to his baseline oxygen requirement. He is up walking to the commode. He is coughing and expectorating some phlegm. He is having minimal pain at the chest tube site. Overall he feels his breathing is improved. Review of Systems Review of Systems: All systems reviewed & are unremarkable except as noted in Subjective Physical Exam Constitutional: + thin and + cachectic Respiratory: Auscultation: + diminished lung sounds (Decreased breath sounds at the right base); no crackles and no rales Cardiovascular: Rate/Rhythm: regular rate and regular rhythm Heart Sounds: + murmur (2/6 systolic murmur) Extremities: no edema Chest (Breasts): Chest: + vascular access device or port (Right-sided chest tube in place) Additional Comments: No air leak. Minimal respiratory variation Gastrointestinal (Abdomen): normal bowel sounds, soft, nontender, no hepatosplenomegaly Neurologic: PERRL, EOMI, accommodation nl, no face palsy, no dysarthria Results & Data Results & Data Vital Signs (Past 12 Hours) Vital Signs Temp Pulse Resp BP Pulse Ox Pulse Ox O2 Del Method 06/03/23 06:00 63 24 99 06/03/23 06:00 133/71 06/03/23 05:00 139/74 06/03/23 05:00 64 26 H 100 06/03/23 04:01 66 25 H 96 06/03/23 04:01 107/65 06/03/23 04:00 36.9 C 66 22 95 06/03/23 03:00 125/71 06/03/23 03:00 63 22 99 06/03/23 02:00 133/72 06/03/23 02:00 64 26 H 99 06/03/23 01:00 70 22 06/03/23 00:00 36.8 C 74 26 H 98 06/03/23 00:00 136/69 06/03/23 00:00 78 06/02/23 23:17 97 Nasal Cannula 06/02/23 23:00 116/61 06/02/23 23:00 73 22 93 06/02/23 23:00 36.8 C O2 Flow Rate 06/03/23 06:00 06/03/23 06:00 06/03/23 05:00 06/03/23 05:00 06/03/23 04:01 06/03/23 04:01 06/03/23 04:00 06/03/23 03:00 06/03/23 03:00 06/03/23 02:00 06/03/23 02:00 06/03/23 01:00 06/03/23 00:00 06/03/23 00:00 06/03/23 00:00 06/02/23 23:17 2 06/02/23 23:00 06/02/23 23:00 06/02/23 23:00 Critical Care Results & Data Vital Signs (Past 12 Hours) Vital Signs Temp Pulse Resp BP Pulse Ox Pulse Ox O2 Del Method 06/03/23 08:00 Nasal Cannula 06/03/23 06:00 63 24 99 06/03/23 06:00 133/71 06/03/23 05:00 139/74 06/03/23 05:00 64 26 H 100 06/03/23 04:01 66 25 H 96 06/03/23 04:01 107/65 06/03/23 04:00 36.9 C 66 22 95 06/03/23 03:00 125/71 06/03/23 03:00 63 22 99 06/03/23 02:00 133/72 06/03/23 02:00 64 26 H 99 06/03/23 01:00 70 22 06/03/23 00:00 36.8 C 74 26 H 98 06/03/23 00:00 136/69 06/03/23 00:00 78 06/02/23 23:17 97 06/02/23 23:00 116/61 06/02/23 23:00 73 22 93 06/02/23 23:00 36.8 C O2 Del Method O2 Flow Rate 06/03/23 08:00 06/03/23 06:00 06/03/23 06:00 06/03/23 05:00 06/03/23 05:00 06/03/23 04:01 06/03/23 04:01 06/03/23 04:00 06/03/23 03:00 06/03/23 03:00 06/03/23 02:00 06/03/23 02:00 06/03/23 01:00 06/03/23 00:00 06/03/23 00:00 06/03/23 00:00 06/02/23 23:17 Nasal Cannula 2 06/02/23 23:00 06/02/23 23:00 06/02/23 23:00 Lab & Micro Results (Past 24 Hours) RBC 2.45 M/uL (4.70-6.10) L 06/03/23 WBC 6.72 K/ul (4.8-10.8) 06/03/23 Hgb 7.8 g/dl (14.0-18.0) L 06/03/23 Hct 24.8 % (42.0-52.0) L 06/03/23 MCV 101.2 fL (80.0-100.0) H 06/03/23 MCH 31.8 pg (25.0-34.0) 06/03/23 MCHC 31.5 g/dL (32.0-36.0) L 06/03/23 RDW Standard Deviation 47.7 fL (36.4-46.3) H 06/03/23 RDW Coefficient of Variation 12.9 % (11.5-14.5) 06/03/23 Plt Count 185 K/uL (130-400) 06/03/23 MPV 10.2 fL (9.4-12.4) 06/03/23 Na 139 mmol/L (136-145) 06/03/23 K 4.4 mmol/L (3.5-5.1) 06/03/23 Cl 102 mmol/L (98-107) 06/03/23 CO2 30 mmol/L (21-32) 06/03/23 Anion Gap 7 (3-11) 06/03/23 BUN 32 mg/dl (6-23) H 06/03/23 Creatinine 4.09 mg/dl (0.6-1.4) H 06/03/23 Estimated GFR ( Amer) 14.9 ml/min 06/03/23 Estimated GFR (Non-Af Amer) 12.9 ml/min 06/03/23 BUN/Creatinine Ratio 7.8 (10-20) L 06/03/23 Glu 104 mg/dl (70-99(Fasting)) H 06/03/23 Ca 9.2 mg/dl (8.6-10.3) 06/03/23 Phosphorus Level 4.2 mg/dl (2.5-4.9) 06/03/23 Mg 2.1 mg/dl (1.7-2.4) 06/03/23 03:45 Calcium Level 9.2 mg/dl (8.6-10.3) 06/03/23 03:45 Microbiology 06/01/23 21:03 Aerobic Blood Culture - Preliminary Blood No growth in Aerobic bottle after 24 hours. Anaerobic Blood Culture - Preliminary No growth in Anaerobic bottle after 24 hours. 06/01/23 21:03 Aerobic Blood Culture - Preliminary Blood No growth in Aerobic bottle after 24 hours. Anaerobic Blood Culture - Preliminary No growth in Anaerobic bottle after 24 hours. 06/01/23 19:00 Urine Culture - Preliminary Urine,Clean Catch Gram negative bacilli Gram negative bacilli#2 Diagnostic Findings (Past 24 Hours) Chest X-Ray 06/02/23 06:54 SINGLE VIEW CHEST CLINICAL HISTORY: Dyspnea FINDINGS: 2 AP, portable, upright chest radiographs are compared to study dated 06/01/2023 and correlated with chest CT dated 02/18/2022. The heart is enlarged and noting atherosclerotic calcification of the thoracic. There is pulmonary vascular congestion. Bilateral airspace opacities likely represent interstitial edema. Emphysema and chronic interstitial thickening is somewhat previous. A chest tube is again seen at the right lung base. This appears to been repositioned. There are right larger than left pleural effusions with dependent consolidation. A pneumothorax at the lateral right apex is again noted. This is decreased in size are previous. There is at least 13 mm of pleural separation. No pneumothorax is seen on the left. The skeletal structures are osteopenic. There are chronic/healed left-sided rib fractures. IMPRESSION: 1. Cardiomegaly and emphysema with evidence of congestive failure. 2. Bilateral opacities could represent multifocal pneumonia and/or pulmonary edema. Correlate clinically. 3. A chest tube at the right lung base has likely been repositioned. There is a small residual right apical pneumothorax. This has decreased in size from yesterday. 4. Right larger than left pleural effusions with dependent consolidation. ACT 112: Negative or not required by law. Electronically signed by: Pelon Bonilla M.D. 06/02/2023 8:23 AM Chest X-Ray 06/02/23 10:37 SINGLE VIEW CHEST CLINICAL HISTORY: Pneumothorax. FINDINGS: An AP, portable, upright chest radiograph is compared to study performed earlier the same day 06/02/2023 and correlated with chest CT dated 02/18/2022. The heart is enlarged and noting atherosclerotic calcification of the thoracic. There is pulmonary vascular congestion. Bilateral airspace opacities likely represent interstitial edema. Emphysema and chronic interstitial thickening is similar to previous. A chest tube is again seen at the right lung base. There are right larger than left pleural effusions with dependent consolidation. A pneumothorax at the lateral right apex is unchanged with approximately 12 mm of pleural separation. No pneumothorax is seen on the left. The skeletal structures are osteopenic. There are chronic/healed left- sided rib fractures. IMPRESSION: 1. Cardiomegaly and emphysema with evidence of congestive failure. 2. Bilateral opacities could represent multifocal pneumonia and/or pulmonary edema. Correlate clinically. 3. A chest tube at the right lung base is unchanged in position and a small residual right apical pneumothorax is similar to today's earlier examination. 4. Right larger than left pleural effusions with dependent consolidation. ACT 112: Negative or not required by law. Electronically signed by: Pelon Bonilla M.D. 06/02/2023 12:02 PM I & O Totals 24 Hours 06/02/23 06/03/23 06/04/23 06:59 06:59 06:59 Intake Total 450 / 450 Output Total 785 / 785 890 / 890 Balance -785 / -785 -440 / -440 Cumulative 06/01/23 17:42 thru 06/03/23 06:57 Intake Total 450 Output Total 1675 Balance -1225 RT Ventilator Mngmt (Last Documented) Ventilator Ordered Settings Respiratory Rate 24 06/03/23 06:00 Fraction of Inspired Oxygen 50 06/02/23 09:28 Ventilator - PT Measurements Respiratory Rate 24 Coding Level of Care Code 19822 SUB INP/OBS CARE 3/50MIN Diagnoses Acute hypoxemic respiratory failure J96.01 Pulmonary edema J81.1 Pneumothorax J93.9 ESRD (end stage renal disease) on dialysis N18.6; Z99.2 Hypertensive urgency I16.0
[2023-06-03] MEDS: HEPARIN SOD 5,000 UNIT/0.5 ML VIAL SQ SCH (09:27)
[2023-06-03] MEDS: EPOETIN ALFA 20,000 UNITS/ML VIAL IV ONE (11:12)
--- NOTE | 2023-06-03 11:52 | Dialysis Progress Note ---
Date of Service June 03, 2023 Assessment & Plan Admission and Anticipated Discharge Date Admission Date: June 01, 2023 Subjective Assessment & Plan (1) ESRD (end stage renal disease) on dialysis: his normal schedule is Monday. He has a good AV fistula. Normally hesitant in allowing fluid removal with Dialysis. have lowered his wt a lot. Hospital discharge wt to be his new EDW for outpt. Dialysis today as per orders--3hrs and take 2.5 kilo. (2) Acute hypoxemic respiratory failure: multifactorial with both pulmonary edema pleural effusion as well as pneumothor ax. Currently has a chest tube. ? chest tube removal today S---seen in dialysis. So far fine. BP is good. AVF fine. No edema at all. only 2 liter o2 now. Still has Chest tube. physical examination elderly white male who appears to be declining overall health. he now appears fairly thin and cachectic. No distress today. on 2 liter o2 only. mucous membrane is moist. Neck is supple jugular venous distention present chest bilateral decreased breath sound more so in the right. CVS S1 and S2 regular soft systolic murmur heard abdomen is soft nontender extremities shows absolutely no edema Results & Data Vital Signs (Past 12 Hours) Vital Signs Temp Pulse Pulse Resp BP Pulse Ox O2 Del Method 06/03/23 11:30 63 126/67 06/03/23 11:00 62 129/72 06/03/23 10:48 62 130/68 06/03/23 10:40 36.9 C 63 06/03/23 08:00 Nasal Cannula 06/03/23 06:00 63 24 99 06/03/23 06:00 133/71 06/03/23 05:00 139/74 06/03/23 05:00 64 26 H 100 06/03/23 04:01 66 25 H 96 06/03/23 04:01 107/65 06/03/23 04:00 36.9 C 66 22 95 06/03/23 03:00 125/71 06/03/23 03:00 63 22 99 06/03/23 02:00 133/72 06/03/23 02:00 64 26 H 99 06/03/23 01:00 70 22 06/03/23 00:00 36.8 C 74 26 H 98 06/03/23 00:00 136/69 06/03/23 00:00 78
--- NOTE | 2023-06-03 13:54 | XRay Report ---
XR chest 1V portable CLINICAL HISTORY: Resp failure TECHNIQUE: Single frontal radiograph of the chest was obtained. Comparison: Comparison is made to chest radiograph 06/02/2023 FINDINGS: Right chest tube is again seen. Cardiomegaly is noted. The aortic arch is calcified. Stable bilateral airspace opacities. Right apicolateral pneumothorax is stable to slightly decreased from prior exam. IMPRESSION: Right pneumothorax is stable to minimally decreased from prior exam. A chest tube is again seen. Bila teral airspace opacities are stable. ACT 112: Negative or not required by law. Electronically signed by: Pieter Perla M.D. 06/03/2023 1:51 PM
--- NOTE | 2023-06-03 14:13 | Hospitalist Progress Note ---
Date of Service June 03, 2023 Assessment & Plan (1) Acute hypoxemic respiratory failure: Plan: Acute hypoxemic, hypercapnic respiratory failure Pulmonary edema/Volume overload Loculated bibasilar pneumothorax/postprocedural pneumothorax--POA In setting of COPD/Pulm hypertension/nocturnal hypoxemia/recurrent right pleural effusion Patient underwent ultrasound-guided right thoracentesis at [facility] on 05/31/23 --CXR:Moderate size right pneumothorax which appears loculated, as described above. Small right pleural effusion. Interstitial thickening and alveolar opacities within the lungs. The findings could reflect pneumonia or pulmonary edema. Moderate cardiomegaly. --Repeat CXR:Cardiomegaly and emphysema with evidence of congestive failure. Bilateral opacities could represent multifocal pneumonia and/or pulmonary edema. Correlate clinically. A chest tube at the right lung base is unchanged in position and a small residual right apical pneumothorax is similar to today's earlier examination. Right larger than left pleural effusions with dependent consolidation. --S/P Right pigtail catheter placement in ED --Appreciate critical care input --Received IV Lasix --Continue supplemental oxygen as needed --Nephrology consulted as well to help with dialysis -- Appreciate critical care input --Chest x-ray today showed decreased pneumothorax --Continue supplemental oxygen as needed Hypertensive urgency Likely situational Received IV labetalol in ED Continue amlodipine, atenolol Monitor BP Elevated troponin Demand ischemia secondary to hypoxia, hypertensive urgency in setting of end- stage renal disease --ECHO: Mild concentric LVH. Left ventricle wall motion is normal. EF 55%. Aortic valve is mildly calcified. Mild valvular aortic stenosis. Grade 1 diastolic dysfunction. Appreciate cardiology input UTI--POA Urine culture growing Pseudomonas Rocephin changed to cefepime Day #1 ESRD Normally on Monday schedule Appreciate nephrology input Monitor volume status Dialysis as per nephrology Valvular heart disease ECHO as above Continue home medications Prostate cancer on Lupron Anemia of chronic disease No obvious bleeding issues Monitor CBC Ongoing tobacco abuse Counseled to quit smoking DVT Px: Heparin SQ Code Status Full code Disposition PT OT prior to discharge Admission and Anticipated Discharge Date Admission Date: June 01, 2023 Subjective Patient is seen and examined at bedside States feeling better today Dyspnea much improved Having hemodialysis during my encounter Admits to having minimal cough and mild pain at chest tube site No other complaints Will be transferred out of ICU today Review of Systems Review of Systems: All systems reviewed & are unremarkable except as noted in Subjective Physical Exam Physical Exam: Physical Exam: Vitals signs as noted above General Appearance:Thin, frail, mild distress, elderly Head: normocephalic, Atraumatic Eyes: normal inspection, EOMI Neck: supple, Trachea midline Respiratory/Chest: Normal breath sounds, CTA, +R chest Tube Cardiovascular: S1, S2, + murmur Abdomen/GI:Soft, Non tender, Bowel sounds present Extremities/Musculoskeletal:normal inspection, no edema, AV fistula Neurologic/Psych:AAOX3, grossly no focal neurological deficits Skin: normal color, warm Results & Data Results & Data Vital Signs (Past 12 Hours) Vital Signs Temp Pulse Pulse Resp BP Pulse Ox O2 Del Method 06/03/23 13:00 56 L 115/62 06/03/23 12:30 56 L 113/61 06/03/23 12:00 56 L 109/65 06/03/23 11:30 63 126/67 06/03/23 11:00 62 129/72 06/03/23 10:48 62 130/68 06/03/23 10:40 36.9 C 63 06/03/23 08:00 Nasal Cannula 06/03/23 06:00 63 24 99 06/03/23 06:00 133/71 06/03/23 05:00 139/74 06/03/23 05:00 64 26 H 100 06/03/23 04:01 66 25 H 96 06/03/23 04:01 107/65 06/03/23 04:00 36.9 C 66 22 95 06/03/23 03:00 125/71 06/03/23 03:00 63 22 99 Laboratory Results Short CBC 06/03/23 Range/Units 03:45 WBC 6.72 (4.8-10.8) K/ul Hgb 7.8 L (14.0-18.0) g/dl Hct 24.8 L (42.0-52.0) % Plt Count 185 (130-400) K/uL BMP 06/03/23 03:45 Sodium 139 Potassium 4.4 Chloride 102 Carbon Dioxide 30 BUN 32 H Creatinine 4.09 H D Glucose 104 H Calcium 9.2
[2023-06-03] MEDS: FAMOTIDINE 20MG IV PUSH 20 MG/5 ML SYR IV SCH (14:55)
[2023-06-03] MEDS: CEFEPIME 1,000 MG in SYRINGE 0 ML IV ONE (14:59)
[2023-06-03] MEDS: FAMOTIDINE 10 MG TABLET PO SCH (15:02)
[2023-06-04 04:29] LABS: Hematocrit (blood only) 25.8 % (42.0-52.0); Hemoglobin 8.3 g/dl (14.0-18.0); Mean Corpuscular Hemoglobin 32.5 pg (25.0-34.0); Mean Corpuscular Hgb Conc 32.2 g/dL (32.0-36.0); Mean Corpuscular Volume 101.2 fL (80.0-100.0); Mean Platelet Volume 10.1 fL (9.4-12.4); Platelet Count 196 K/uL (130-400); RDW Standard Deviation 47.9 fL (36.4-46.3); Red Blood Count 2.55 M/uL (4.70-6.10); White Blood Count 6.95 K/ul (4.8-10.8)
[2023-06-04 04:48] LABS: BUN Creatinine Ratio 7.8 (10-20); Calcium 9.2 mg/dl (8.6-10.3); Creatinine Clr Calc Pharmacy 13.3 ml/min; Est GFR (African American) 19.1 ml/min; Est GFR (Non-African American) 16.5 ml/min; Phosphorus 2.8 mg/dl (2.5-4.9)
[2023-06-04 07:02] LABS: HBSAG NON-REACTIVE (NON-REACTIVE); Hepatitis B Surface Ab, Quant 146 mIU/mL (> OR = 10)
--- NOTE | 2023-06-04 08:38 | Pulmonology Progress Note ---
Date of Service June 04, 2023 Assessment & Plan (1) Acute hypoxemic respiratory failure: (2) Pulmonary edema: (3) Pneumothorax: Plan Medically complex 78-year-old male with a history of end-stage renal disease on hemodialysis, right nephrostomy tube due to obstructive stones, hypertension and diastolic heart failure who presented to the hospital due to iatrogenic pneumothorax related to thoracentesis in [place] on Monday and CHF. His tube was clamped yesterday morning and chest x-ray this morning demonstrates no evidence of recurrence of the pneumothorax. Recommendations: 1. Iatrogenic pneumothorax: Resolved on chest x-ray this morning. The chest tube was discontinued. Occlusive dressing was applied. 2. History of recurrent pleural effusions: Management per the patient's outpatient pulmonary providers at [facility]. 3. Pulmonary edema: Resolved. Continued blood pressure control and management with nephrology. Patient appears to be back to his pulmonary baseline. Pulmonary will sign off at this point time. Feel free to contact us with questions or concerns. Admission and Anticipated Discharge Date Admission Date: June 01, 2023 Subjective Patient seen and examined. EMR reviewed. Discussed with bedside nurse. Patient is sitting up eating breakfast. He tolerated dialysis yesterday. His tubes been clamped since yesterday morning. He feels he is doing well clinically. No chest pain. No fevers chills night sweats or other constitutional symptoms. Review of Systems 2 Review of Systems: All systems reviewed & are unremarkable except as noted in Subjective Physical Exam 2 Constitutional: + thin and + cachectic Respiratory: Auscultation: + diminished lung sounds (Decreased breath sounds at the right base); no crackles and no rales Cardiovascular: Rate/Rhythm: regular rate and regular rhythm Heart Sounds: + murmur (2/6 systolic murmur) Extremities: no edema Chest (Breasts): Chest: + vascular access device or port (Right-sided chest tube in place) Gastrointestinal (Abdomen): normal bowel sounds, soft, nontender, no hepatosplenomegaly Neurologic: PERRL, EOMI, accommodation nl, no face palsy, no dysarthria Results & Data Results & Data Vital Signs (Past 12 Hours) Vital Signs Temp Pulse Resp BP Pulse Ox Pulse Ox O2 Del Method 06/04/23 08:00 Nasal Cannula 06/04/23 07:42 55 L 06/04/23 04:16 Nasal Cannula 06/03/23 23:30 37 C 58 L 24 114/57 L 93 06/03/23 23:30 93 O2 Del Method O2 Flow Rate O2 Flow Rate 06/04/23 08:00 2 06/04/23 07:42 06/04/23 04:16 2 06/03/23 23:30 06/03/23 23:30 Nasal Cannula 2 Laboratory Results 06/04/23 03:59 06/04/23 03:59 Diagnostic Findings Chest x-ray from this morning was independently reviewed. The pneumothorax appears to have resolved. PG Care Time/CCT Total # of Minutes Spent Total Time Spent with Patient: Total time spent is greater than 50% in coordination of care (as documented) at patient's floor/unit and/or counseling patient: Coding Level of Care Code 94062 SUB INP/OBS CARE 2/35MIN Diagnoses Acute hypoxemic respiratory failure J96.01 Pulmonary edema J81.1 Pneumothorax J93.9
--- NOTE | 2023-06-04 15:40 | Hospitalist Progress Note ---
Date of Service June 04, 2023 Assessment & Plan (1) Acute hypoxemic respiratory failure: Plan: Acute hypoxemic, hypercapnic respiratory failure Pulmonary edema/Volume overload Loculated bibasilar pneumothorax/postprocedural pneumothorax--POA Chronic oxygen dependency--on 2 L at bedtime In setting of COPD/Pulm hypertension/nocturnal hypoxemia/recurrent right pleural effusion Patient [place] [facility] [place] --CXR:Moderate size right pneumothorax which appears loculated, as described above. Small right pleural effusion. Interstitial thickening and alveolar opacities within the lungs. The findings could reflect pneumonia or pulmonary edema. Moderate cardiomegaly. --Repeat CXR:Cardiomegaly and emphysema with evidence of congestive failure. Bilateral opacities could represent multifocal pneumonia and/or pulmonary edema. Correlate clinically. A chest tube at the right lung base is unchanged in position and a small residual right apical pneumothorax is similar to today's earlier examination. Right larger than left pleural effusions with dependent consolidation. --S/P Right pigtail catheter placement in ED --Appreciate critical care input --Received IV Lasix --Continue supplemental oxygen as needed --Nephrology consulted as well to help with dialysis -- Appreciate critical care input Chest tube was discontinued, occlusive dressing was applied Needs follow-up with [facility] pulmonology as outpatient Hypertensive urgency Likely situational Received IV labetalol in ED Continue amlodipine, atenolol Monitor BP Elevated troponin Demand ischemia secondary to hypoxia, hypertensive urgency in setting of end- stage renal disease --ECHO: Mild concentric LVH. Left ventricle wall motion is normal. EF 55%. Aortic valve is mildly calcified. Mild valvular aortic stenosis. Grade 1 diastolic dysfunction. Appreciate cardiology input UTI--POA Urine culture grew Pseudomonas Rocephin changed to cefepime Day #2 Continue IV antibiotics while hospitalized ESRD Normally on Monday schedule Appreciate nephrology input Monitor volume status Dialysis as per nephrology Valvular heart disease ECHO as above Continue home medications Prostate cancer on Lupron Anemia of chronic disease No obvious bleeding issues Monitor CBC Ongoing tobacco abuse Counseled to quit smoking DVT Px: Heparin SQ Code Status Full code Disposition PT OT prior to discharge Admission and Anticipated Discharge Date Admission Date: June 01, 2023 Subjective Patient is seen and examined at bedside Reports only minimal cough Dyspnea resolved Sitting in chair during my encounter Chest tube discontinued today Offers no other complaints Denies any chest pain, dizziness, nausea, vomiting, abdominal pain Review of Systems Review of Systems: All systems reviewed & are unremarkable except as noted in Subjective Physical Exam Physical Exam: Physical Exam: Vitals signs as noted above General Appearance:Thin, frail, mild distress, elderly Head: normocephalic, Atraumatic Eyes: normal inspection, EOMI Neck: supple, Trachea midline Respiratory/Chest: Normal breath sounds, CTA Cardiovascular: S1, S2, + murmur Abdomen/GI:Soft, Non tender, Bowel sounds present Extremities/Musculoskeletal:normal inspection, no edema, AV fistula Neurologic/Psych:AAOX3, grossly no focal neurological deficits Skin: normal color, warm Results & Data Results & Data Vital Signs (Past 12 Hours) Vital Signs Temp Pulse Pulse Resp BP Pulse Ox O2 Del Method 06/04/23 12:06 36.9 C 57 L 18 103/58 L 94 Nasal Cannula 06/04/23 08:00 Nasal Cannula 06/04/23 07:42 55 L 06/04/23 04:16 Nasal Cannula O2 Flow Rate 06/04/23 12:06 2.0 06/04/23 08:00 2 06/04/23 07:42 06/04/23 04:16 2 Laboratory Results Short CBC 06/04/23 Range/Units 03:59 WBC 6.95 (4.8-10.8) K/ul Hgb 8.3 L (14.0-18.0) g/dl Hct 25.8 L (42.0-52.0) % Plt Count 196 (130-400) K/uL BMP 06/04/23 03:59 Sodium 138 Potassium 4.0 Chloride 102 Carbon Dioxide 29 BUN 26 H Creatinine 3.34 H D Glucose 100 H Calcium 9.2
[2023-06-04] MEDS: CEFEPIME 500 MG in SYRINGE 0 ML IV SCH (16:05)
--- NOTE | 2023-06-04 18:07 | XRay Report ---
XR chest 1V portable CLINICAL HISTORY: pneumothorax TECHNIQUE: Single frontal radiograph of the chest was obtained. Comparison: Comparison is made to chest radiograph 06/03/2023 FINDINGS: Right chest tube is seen. Cardiomegaly is noted. The aortic arch is calcified. Stable right greater t soria left airspace opacities. Right apical pneumothorax is minimally seen, significantly decreased fro m prior exam. IMPRESSION: 1. Right apical pneumothorax is decreased from prior exam. Chest tube remains in place. 2. Stable cardiomegaly. 3. Right greater than left lower lung airspace opacity likely represents atelectasis. ACT 112: Negative or not required by law. Electronically signed by: Pieter Perla M.D. 06/04/2023 6:05 PM
[2023-06-05 05:49] LABS: Hematocrit (blood only) 25.2 % (42.0-52.0); Mean Corpuscular Hemoglobin 32.1 pg (25.0-34.0); Mean Corpuscular Hgb Conc 31.7 g/dL (32.0-36.0); Mean Corpuscular Volume 101.2 fL (80.0-100.0); Nucleated RBC # (auto) 0.03 K/uL (0.00-0.12); Nucleated RBC % (auto) 0.4 %; Platelet Count 200 K/uL (130-400); RDW Coefficient of Variation 13.1 % (11.5-14.5); RDW Standard Deviation 47.5 fL (36.4-46.3); Red Blood Count 2.49 M/uL (4.70-6.10); White Blood Count 7.01 K/ul (4.8-10.8)
[2023-06-05 06:09] LABS: BUN Creatinine Ratio 7.9 (10-20); Calcium 9.7 mg/dl (8.6-10.3); Creatinine Clr Calc Pharmacy 7.7 ml/min; Est GFR (African American) 10.1 ml/min; Est GFR (Non-African American) 8.7 ml/min; Phosphorus 3.3 mg/dl (2.5-4.9); Potassium 4.4 mmol/L (3.5-5.1)
--- NOTE | 2023-06-05 07:58 | XRay Report ---
XR chest 1V portable HISTORY: pneumothorax COMPARISON: Chest 06/04/2023. FINDINGS: Tiny right apical pneumothorax remains measuring 3 mm. This is similar to the prior study. Small right and trace left pleural effusions persist. A right chest tube has been removed. The heart remains enlarged. There is mild pulmonary vascular congestion without overt edema. Bibasilar densitie s most pronounced on the right persists. There are calcifications within the aortic knob. No acute fr actures identified. IMPRESSION: 1. Interval removal of the right-sided chest tube. 2. A tiny right pneumothorax persists. 3. Small right and trace left pleural effusions with bibasilar densities again noted. 4. Mild pulmonary vascular congestion has improved. ACT 112: Negative or not required by law. Electronically signed by: Carlos Jean-Baptiste M.D. 06/05/2023 7:57 AM
--- NOTE | 2023-06-05 17:09 | Hospitalist Progress Note ---
Date of Service June 05, 2023 Assessment & Plan (1) Acute hypoxemic respiratory failure: Plan: Acute hypoxemic, hypercapnic respiratory failure Pulmonary edema/Volume overload Loculated bibasilar pneumothorax/postprocedural pneumothorax--POA Chronic oxygen dependency--on 2 L at bedtime In setting of COPD/Pulm hypertension/nocturnal hypoxemia/recurrent right pleural effusion Patient underwent ultrasound-guided right thoracentesis at [facility] [place] on 05/31/23 --CXR:Moderate size right pneumothorax which appears loculated, as described above. Small right pleural effusion. Interstitial thickening and alveolar opacities within the lungs. The findings could reflect pneumonia or pulmonary edema. Moderate cardiomegaly. --Repeat CXR:Cardiomegaly and emphysema with evidence of congestive failure. Bilateral opacities could represent multifocal pneumonia and/or pulmonary edema. Correlate clinically. A chest tube at the right lung base is unchanged in position and a small residual right apical pneumothorax is similar to today's earlier examination. Right larger than left pleural effusions with dependent consolidation. --S/P Right pigtail catheter placement in ED --Appreciate critical care input --Received IV Lasix --Continue supplemental oxygen as needed --Nephrology consulted as well to help with dialysis -- Appreciate critical care input Chest tube was discontinued, occlusive dressing was applied Needs follow-up with [facility] pulmonology as outpatient Will need 2 step prior to discharge Sinus bradycardia Hold atenolol Monitor off beta-lin Hypertensive urgency Likely situational Received IV labetalol in ED Continue amlodipine, atenolol Monitor BP Elevated troponin Demand ischemia secondary to hypoxia, hypertensive urgency in setting of end- stage renal disease --ECHO: Mild concentric LVH. Left ventricle wall motion is normal. EF 55%. Aortic valve is mildly calcified. Mild valvular aortic stenosis. Grade 1 diastolic dysfunction. Appreciate cardiology input UTI--POA Urine culture grew Pseudomonas Rocephin changed to cefepime Day #3 Continue IV antibiotics while hospitalized ESRD Normally on Monday schedule Appreciate nephrology input Monitor volume status Dialysis as per nephrology Valvular heart disease ECHO as above Continue home medications Prostate cancer on Lupron Anemia of chronic disease No obvious bleeding issues Monitor CBC Ongoing tobacco abuse Counseled to quit smoking DVT Px: Heparin SQ Code Status Full code Disposition PT OT prior to discharge Admission and Anticipated Discharge Date Admission Date: June 01, 2023 Subjective Patient is seen and examined at bedside Subjectively feels well today Offers no new complaints Noted bradycardic on monitor Denies any chest pain, dyspnea, dizziness, nausea, vomiting, abdominal pain Review of Systems Review of Systems: All systems reviewed & are unremarkable except as noted in Subjective Physical Exam Physical Exam: Physical Exam: Vitals signs as noted above General Appearance:Thin, frail, mild distress, elderly Head: normocephalic, Atraumatic Eyes: normal inspection, EOMI Neck: supple, Trachea midline Respiratory/Chest: Normal breath sounds, CTA Cardiovascular: S1, S2, + murmur Abdomen/GI:Soft, Non tender, Bowel sounds present Extremities/Musculoskeletal:normal inspection, no edema, AV fistula Neurologic/Psych:AAOX3, grossly no focal neurological deficits Skin: normal color, warm Results & Data Results & Data Vital Signs (Past 12 Hours) Vital Signs Temp Pulse Pulse Resp BP Pulse Ox O2 Del Method 06/05/23 16:36 52 L 06/05/23 15:38 36.4 C L 51 L 18 130/56 L 98 Room Air 06/05/23 11:22 36.5 C 54 L 18 123/54 L 100 Nasal Cannula 06/05/23 10:30 49 L 06/05/23 08:05 Nasal Cannula 06/05/23 07:50 36.5 C 50 L 20 145/68 H 96 Nasal Cannula O2 Flow Rate 06/05/23 16:36 06/05/23 15:38 2 06/05/23 11:22 2 06/05/23 10:30 06/05/23 08:05 2 06/05/23 07:50 2 Laboratory Results Short CBC 06/05/23 Range/Units 05:30 WBC 7.01 (4.8-10.8) K/ul Hgb 8.0 L (14.0-18.0) g/dl Hct 25.2 L (42.0-52.0) % Plt Count 200 (130-400) K/uL BMP 06/05/23 05:30 Sodium 134 L Potassium 4.4 Chloride 98 Carbon Dioxide 28 BUN 45 H Creatinine 5.67 H* D Glucose 95 Calcium 9.7
[2023-06-06 07:07] LABS: BUN Creatinine Ratio 8.4 (10-20); Calcium 10.3 mg/dl (8.6-10.3); Creatinine Clr Calc Pharmacy 6.1 ml/min; Est GFR (African American) 7.2 ml/min; Est GFR (Non-African American) 6.2 ml/min
--- NOTE | 2023-06-06 07:59 | XRay Report ---
XR chest 1V portable HISTORY: pneumothorax COMPARISON: Chest 06/05/2023. FINDINGS: No definite pneumothorax. The heart remains enlarged. Small right and trace left pleural ef fusions with bibasilar densities again noted. Mild pulmonary vascular congestion again noted. No acut e fractures. IMPRESSION: 1. No definite pneumothorax. 2. Small right and trace left pleural effusion with bibasilar densities persist. 3. Cardiomegaly and mild congestive change again noted. ACT 112: Negative or not required by law. Electronically signed by: Carlos Jean-Baptiste M.D. 06/06/2023 7:58 AM
[2023-06-06] MEDS ORDERED: SODIUM CHLORIDE 0.9% 1,000 ML IV PRN (08:36)
[2023-06-06] MEDS: EPOETIN ALFA 10,000 UNITS/ML VIAL IV ONE (10:26)
[2023-06-06] MEDS: IRON SUCROSE 100 MG in SYRINGE 0 ML IV ONE (10:26)
--- NOTE | 2023-06-06 11:00 | Cardiology Progress Note ---
Date of Service June 06, 2023 Assessment & Plan (1) Bradycardia: (2) Premature atrial complexes: (3) PAT (paroxysmal atrial tachycardia): (4) Aortic stenosis: (5) End stage renal disease: Plan Mild bradycardia, asymptomatic. Last dose of Atenolol (50 mg) administered on 06/04/2023 at 20:37 Frequent atrial ectopy, asymptomatic. One short five beat run of paroxysmal atrial tachycardia, asymptomatic. Mild aortic valve stenosis. Preserved LV systolic function. Recommendations: 1. Discontinue atenolol 50 mg/day 2. Avoid all AV kumar blockers for now 3. Continue telemetry monitoring 4. If/when beta-lin therapy needs to be resumed, recommend low-dose metoprolol succinate 5. Check TFTs to evaluate for underlying hypothyroidism. 6. Avoid QTc prolonging medications. 7. Outpatient ambulatory EKG monitoring pending the above. I spent a total of 52 minutes on the date of service in preparation, delivery, and documentation of the care provided to this patient excluding any time spent in the performance of separately billed services. This visit was a split-shared visit with the substantive portion of the medical decision making performed by the supervising nurse sitter/billing provider. Admission and Anticipated Discharge Date Admission Date: June 01, 2023 Supervising Physician Co-Signing Physician Notes I have reviewed the advance practitioner's documentation, and I agree with, and take responsibility for the plan of care. 78-year-old male seen and examined on hemodialysis. Telemetry revealing sinus bradycardia with heart rate in the upper 40s to low 50s. Atenolol placed on hold . Patient denies lightheadedness, dizziness, syncope, or near syncope. No chest discomfort or shortness of breath at rest. Denies orthopnea, PND, or lower extremity edema. PE: VSS. Gen: NAD, AAO x3. Heart: Regular rhythm, bradycardia. 2/6 systolic ejection murmur heard best at the right second intercostal space. Lungs: Diminished breath sounds at the right base. No rhonchi or wheeze. Extremities: No edema. +LUE fistula. A/P: Asymptomatic sinus bradycardia. Hold beta-lin therapy. Continue te lemetry monitoring. I spent a total of 20 minutes on the date of service in preparation, delivery, and documentation of the care provided to this patient, excluding any time spent in the performance of separately billed services. Subjective Asked by Hospitalist to re-evaluate patient due to observed bradycardia. Patient seen and examined during hemodialysis session. Chart, medications, and telemetry reviewed. Patient chronically prescribed Atenolol 50 mg at bedtime. Last dose of Atenolol administered on 06/04/2023 at 20:37 Patient asymptomatic, denying excessive fatigue, unusual tiredness, dizziness, lightheadedness, near syncope, syncope, chest pain, unusual shortness of breath, or unilateral complaints to suggest TIA/CVA. Telemetry: Sinus bradycardia down to the mid 40's with associated atrial ectopy. One short (5 beat) run of paroxysmal atrial tachycardia at 06/06/2023 at 10:03:00. Review of Systems Review of Systems: Complete Review of Systems is as stated above, negative, or noncontributory. Physical Exam Physical Exam: General: A&Ox3. NAD. HENT: Normocephalic. Atraumatic. Eyes: PER. Conjunctiva pink, sclera clear. Neck: No JVD. No HJR. Heart: Regular at 60 bpm. Grade II-III/ systolic ejection murmur. No diastolic murmur. No rub. Lungs: Clear to auscultation anteriorly. Abdomen: +BS. Soft. Nontender. No masses or organomegaly. Extremities: No clubbing, cyanosis, or edema. Limited neurological examination is without focal deficits. Pulses: Posterior tibial=2/4 bilaterally Results & Data Vital Signs (Past 12 Hours) Vital Signs Temp Pulse Pulse Pulse Resp BP BP 06/06/23 10:30 49 L 100/51 L 06/06/23 10:00 49 L 105/52 L 06/06/23 09:30 49 L 119/64 06/06/23 09:17 50 L 130/68 06/06/23 09:09 36.6 C 52 L 06/06/23 07:43 06/06/23 07:28 36.8 C 48 L 17 148/67 H 06/06/23 03:48 36.6 C 48 L 137/66 06/05/23 23:16 36.7 C 52 L 131/61 Pulse Ox O2 Del Method O2 Flow Rate 06/06/23 10:30 06/06/23 10:00 06/06/23 09:30 06/06/23 09:17 06/06/23 09:09 06/06/23 07:43 Nasal Cannula 2 06/06/23 07:28 100 Nasal Cannula 2 06/06/23 03:48 97 Nasal Cannula 2 06/05/23 23:16 96 Nasal Cannula 2 Laboratory Results Comprehensive Metabolic Panel 06/06/23 Range/Units 06:08 Sodium 132 L (136-145) mmol/L Potassium 5.0 (3.5-5.1) mmol/L Chloride 97 L (98-107) mmol/L Carbon Dioxide 27 (21-32) mmol/L BUN 63 H (6-23) mg/dl Creatinine 7.50 H* D (0.6-1.4) mg/dl Glucose 89 (70-99(Fasting)) mg/dl Calcium 10.3 (8.6-10.3) mg/dl Intake and Output 06/05/23 06/06/23 06/06/23 22:59 06:59 14:59 Intake Total 240 / 1080 240 / 1080 Output Total 50 / 50 Balance 240 / 1030 190 / 1030 Intake: Oral 240 / 1080 240 / 1080 Output: Urine Amount (Catheter) 50 / 50 Right Nephrostomy 50 / 50 Other: Weight 55.2 kg 55.2 kg Weight Measurement Method Built in [facility] Built in [facility] Patient Weight 06/07/23 06:59 Weight 55.2 kg Diagnostic Findings EKG on June 01, 2023 revealed sinus tachycardia 101 bpm with left atrial enlargement and inferior lateral STT wave abnormality. QTc 492 ms EKG on June 02, 2023 revealed normal sinus rhythm at [address] abnormality, LVH and a QTc of 498 ms. EKG on June 05, 2023 revealed sinus bradycardia at 51 bpm with LVH. QTc 460 ms. June 02, 2023 TTE: Mild concentric LVH. Normal LV wall motion. EF 55%. Mildly calcified aortic valve with mild aortic stenosis. Grade 1 diastolic dysfunction.
[2023-06-06 12:18] LABS: Magnesium 2.6 mg/dl (1.7-2.4)
[2023-06-06 12:34] LABS: Thyroid Stimulating Hormone 4.026 uIu/ml (0.300-4.500)
--- NOTE | 2023-06-06 13:16 | Dialysis Progress Note ---
Date of Service June 06, 2023 Assessment & Plan (1) ESRD (end stage renal disease) on dialysis: Plan: his normal schedule is Monday. He has a good AV fistula. had extra dialysis day after admission to complete/make up missed tx. on track for 2.5 L UF today >It is worth noting that patient is very resistant in fluid removal with dialysis as he does not feel good though tolerating today. he never has significant edema and all of his fluid is in the lungs and has caused significant problems in the last 1 year with recurrent pleural effusion requiring thoracocentesis. He follows with [facility] intervals Radiology on a regular basis for d/c home today and should then resume OP normal schedule of TTS. (2) Acute hypoxemic respiratory failure: Plan: multifactorial with both pulmonary edema pleural effusion as well as pneumothorax. chest tube removed yesterday; on 02nc Plan Admission and Anticipated Discharge Date Admission Date: June 01, 2023 Subjective seen on HD today midday. tolerating tx well. no sob, no lightheadedness, no cough, no edema. Review of Systems 2 Review of Systems: All systems reviewed & are unremarkable except as noted in Subjective Physical Exam 2 Constitutional: well developed and well nourished Eyes: EOM intact bilaterally ENMT: Ears: no external ear abnormality Nose: no external nose abnormality Mouth: + dry oral mucous membranes Neck: no nuchal rigidity Respiratory: normal respiratory effort Auscultation: + diminished lung sounds Cardiovascular: Rate/Rhythm: + bradycardic Extremities: + AV fistula; no edema Gastrointestinal (Abdomen): Inspection/Auscultation: normal bowel sounds P ercussion/Palpation: abdomen soft; abdomen nontender Musculoskeletal: Extremities: strength 5/5 throughout Skin: no rashes, warm and dry Neurologic: uribe, fluent speech, no tremor Results & Data Vital Signs (Past 12 Hours) Vital Signs Temp Pulse Pulse Resp BP BP Pulse Ox 06/06/23 13:07 36.8 C 52 L 133/62 06/06/23 12:30 52 L 107/56 L 06/06/23 12:00 51 L 106/53 L 06/06/23 11:30 49 L 96/55 L 06/06/23 11:00 47 L 114/53 L 06/06/23 10:30 49 L 100/51 L 06/06/23 10:00 49 L 105/52 L 06/06/23 09:30 49 L 119/64 06/06/23 09:17 50 L 130/68 06/06/23 09:09 36.6 C 52 L 06/06/23 07:43 06/06/23 07:28 36.8 C 48 L 17 148/67 H 100 06/06/23 03:48 36.6 C 48 L 137/66 97 O2 Del Method O2 Flow Rate 06/06/23 13:07 06/06/23 12:30 06/06/23 12:00 06/06/23 11:30 06/06/23 11:00 06/06/23 10:30 06/06/23 10:00 06/06/23 09:30 06/06/23 09:17 06/06/23 09:09 06/06/23 07:43 Nasal Cannula 2 06/06/23 07:28 Nasal Cannula 2 06/06/23 03:48 Nasal Cannula 2 Laboratory Results 06/05/23 05:30 06/06/23 06:08
--- NOTE | 2023-06-06 13:34 | Hospitalist Progress Note ---
Date of Service June 06, 2023 Assessment & Plan (1) Acute hypoxemic respiratory failure: Plan: Acute hypoxemic, hypercapnic respiratory failure Pulmonary edema/Volume overload Loculated bibasilar pneumothorax/postprocedural pneumothorax--POA Chronic oxygen dependency--on 2 L at bedtime In setting of COPD/Pulm hypertension/nocturnal hypoxemia/recurrent right pleural effusion Patient underwent ultrasound-guided right thoracentesis at [facility] on 05/31/23 --CXR:Moderate size right pneumothorax which appears loculated, as described above. Small right pleural effusion. Interstitial thickening and alveolar opacities within the lungs. The findings could reflect pneumonia or pulmonary edema. Moderate cardiomegaly. --Repeat CXR:Cardiomegaly and emphysema with evidence of congestive failure. Bilateral opacities could represent multifocal pneumonia and/or pulmonary edema. Correlate clinically. A chest tube at the right lung base is unchanged in position and a small residual right apical pneumothorax is similar to today's earlier examination. Right larger than left pleural effusions with dependent consolidation. --S/P Right pigtail catheter placement in ED --Appreciate critical care input --Received IV Lasix --Continue supplemental oxygen as needed --Nephrology consulted as well to help with dialysis -- Appreciate critical care input Chest tube was discontinued, occlusive dressing was applied Needs follow-up with [facility] pulmonology as outpatient 2 step:he needed 2L at rest and 3L with ambulation Plan to to discharge home today Sinus bradycardia Hold atenolol Monitor off beta-lni Appreciate cardiology input No further recommendations Advised to follow-up with cardiology as outpatient Hypertensive urgency Likely situational Received IV labetalol in ED Continue amlodipine atenolol discontinued due to bradycardia Monitor BP Elevated troponin Demand ischemia secondary to hypoxia, hypertensive urgency in setting of end- stage renal disease --ECHO: Mild concentric LVH. Left ventricle wall motion is normal. EF 55%. Aortic valve is mildly calcified. Mild valvular aortic stenosis. Grade 1 diastolic dysfunction. Appreciate cardiology input UTI--POA Urine culture grew Pseudomonas Rocephin changed to cefepime Day #3>>Cipro to complete the course Continue IV antibiotics while hospitalized ESRD Normally on Monday schedule Appreciate nephrology input Monitor volume status Dialysis as per nephrology Valvular heart disease ECHO as above Continue home medications Prostate cancer on Lupron Anemia of chronic disease No obvious bleeding issues Monitor CBC Ongoing tobacco abuse Counseled to quit smoking DVT Px: Heparin SQ Code Status Full code Disposition Home Admission and Anticipated Discharge Date Admission Date: June 01, 2023 Subjective Patient is seen and examined at bedside Had hemodialysis today Discussed with cardiology and nephrology today Had 2 step earlier today Offers no new complaints Remains bradycardic Denies any chest pain, dyspnea, dizziness, nausea, vomiting, abdominal pain Plan to discharge home today Review of Systems Review of Systems: All systems reviewed & are unremarkable except as noted in Subjective Physical Exam Physical Exam: Physical Exam: Vitals signs as noted above General Appearance:Thin, frail, mild distress, elderly Head: normocephalic, Atraumatic Eyes: normal inspection, EOMI Neck: supple, Trachea midline Respiratory/Chest: Normal breath sounds, CTA Cardiovascular: S1, S2, + murmur Abdomen/GI:Soft, Non tender, Bowel sounds present Extremities/Musculoskeletal:normal inspection, no edema, AV fistula Neurologic/Psych:AAOX3, grossly no focal neurological deficits Skin: normal color, warm Results & Data Results & Data Vital Signs (Past 12 Hours) Vital Signs Temp Pulse Pulse Pulse Pulse Pulse Pulse 06/06/23 13:21 60 60 55 L 55 L 06/06/23 13:07 36.8 C 52 L 06/06/23 12:30 52 L 06/06/23 12:00 51 L 06/06/23 11:30 49 L 06/06/23 11:00 47 L 06/06/23 10:30 49 L 06/06/23 10:00 49 L 06/06/23 09:30 49 L 06/06/23 09:17 50 L 06/06/23 09:09 36.6 C 52 L 06/06/23 07:43 06/06/23 07:28 36.8 C 48 L 06/06/23 03:48 36.6 C 48 L Resp Resp Resp Resp Resp BP BP 06/06/23 13:21 18 18 16 16 06/06/23 13:07 133/62 06/06/23 12:30 107/56 L 06/06/23 12:00 106/53 L 06/06/23 11:30 96/55 L 06/06/23 11:00 114/53 L 06/06/23 10:30 100/51 L 06/06/23 10:00 105/52 L 06/06/23 09:30 119/64 06/06/23 09:17 130/68 06/06/23 09:09 06/06/23 07:43 06/06/23 07:28 17 148/67 H 06/06/23 03:48 137/66 Pulse Ox Pulse Ox Pulse Ox Pulse Ox Pulse Ox O2 Del Method O2 Flow Rate 06/06/23 13:21 87 L 90 90 85 L 06/06/23 13:07 06/06/23 12:30 06/06/23 12:00 06/06/23 11:30 06/06/23 11:00 06/06/23 10:30 06/06/23 10:00 06/06/23 09:30 06/06/23 09:17 06/06/23 09:09 06/06/23 07:43 Nasal Cannula 2 06/06/23 07:28 100 Nasal Cannula 2 06/06/23 03:48 97 Nasal Cannula 2 O2 Flow Rate O2 Flow Rate O2 Flow Rate 06/06/23 13:21 2 3 2 06/06/23 13:07 06/06/23 12:30 06/06/23 12:00 06/06/23 11:30 06/06/23 11:00 06/06/23 10:30 06/06/23 10:00 06/06/23 09:30 06/06/23 09:17 06/06/23 09:09 06/06/23 07:43 06/06/23 07:28 06/06/23 03:48 Laboratory Results BMP 06/06/23 06:08 Sodium 132 L Potassium 5.0 Chloride 97 L Carbon Dioxide 27 BUN 63 H Creatinine 7.50 H* D Glucose 89 Calcium 10.3
--- NOTE | 2023-06-06 13:58 | Discharge Summary ---
Date of Service June 06, 2023 Admission HPI Per Admitting Provider History obtained from patient, family, and records. Limited history from patient secondary to obtunded state. Medical history significant for hypertension, valvular heart disease (moderate MS/TR, mild MR TTE 2023), pulmonary hypertension, COPD, recurrent right pleural effusion, nocturnal hypoxemia on home O2 at night, ESRD on HD, prostate cancer on Lupron, history of hydronephrosis, chronic anemia (baseline hemoglobin of 10), ongoing tobacco abuse. Last confinement January 2022 for shortness of breath secondary to missed dialysis and atypical pneumonia. Patient has had right pleural effusion since January 2022 admission. Periodic outpatient ultrasound-guided thoracenteses done at [facility] since last year as per specialist recommendation. Pleurx catheter placement decision withheld due to infrequent nature of pleural fluid recurrence as per recent [facility] call circuit worker note from 2 weeks ago. Past pleural fluid analysis showed lymphocytic exudative fluid with negative cultures and cytology suggestive of reactive mesothelial cells. Patient underwent ultrasound-guided right thoracentesis yesterday at [facility]. 900 mL of clear yellow fluid was collected as per report. Patient looked uncomfortable and short of breath at home after procedure as per . No cough or chest pain symptoms. Needing oxygen even before bedtime as per which is unusual for him. Patient refused ER evaluation. No abdominal pain or bleeding concerns as per . Incomplete hemodialysis at [facility] today as per due to patient discomfort. O2 sats 80s. Dialysis nurse recommended ER evaluation if symptoms did not improve. Patient called EMS upon arrival at home after dialysis due to worsening symptoms. O2 sats noted to be 60s. BiPAP initiated at patient's home. Patient brought to ER for evaluation. Emergent chest tube placed done at the ER with note of right-sided pneumothorax on x-ray. Patient currently obtunded post IV Ativan administration at the ER. 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 Admission Exam Per Admitting Provider GENERAL: Obtunded, chronically ill, no respiratory distress SKIN: Pallor, warm HEENT: Pale palpebral conjunctivae, no ptosis, dry buccal mucosa, nasal cannula in place NECK : Supple, no tenderness CHEST : Decreased breath sounds, chest tube in place, right chest wall tenderness HEART : RRR, no obvious murmurs ABDOMEN: no distention, nontender EXTREMITIES : No LE swelling/tenderness, no other conspicuous deformities noted NEUROLOGIC : Obtunded, no facial asymmetry, gait and stance not assessed Principal Diagnosis Acute hypoxemic, hypercapnic respiratory failure Pulmonary edema Postprocedural pneumothorax Sinus bradycardia Urinary tract infection Discharge Data Allergies Allergy/AdvReac Type Severity Reaction Status Date / Time pantoprazole Allergy Unknown HIVES Verified 06/01/23 19:59 Consultations 06/01/23 20:45 ED Decision to Admit Stat 06/01/23 23:17 Consult Nephrology Routine Consult Pulmonology Routine 06/02/23 08:36 Consult [place] Routine 06/02/23 10:43 Consult Cardiology Routine Procedures Performed Laboratory Results WBC 7.01 K/ul (4.8-10.8) 06/05/23 05:30 RBC 2.49 M/uL (4.70-6.10) L 06/05/23 05:30 Hgb 8.0 g/dl (14.0-18.0) L 06/05/23 05:30 POC Hgb 7.8 g/dl (14.0-18.0) L 06/02/23 07:44 Hct 25.2 % (42.0-52.0) L 06/05/23 05:30 POC Hct 23 % (42-52) L 06/02/23 07:44 MCV 101.2 fL (80.0-100.0) H 06/05/23 05:30 MCH 32.1 pg (25.0-34.0) 06/05/23 05:30 MCHC 31.7 g/dL (32.0-36.0) L 06/05/23 05:30 RDW Std Deviation 47.5 fL (36.4-46.3) H 06/05/23 05:30 RDW Coeff of Stacy 13.1 % (11.5-14.5) 06/05/23 05:30 Plt Count 200 K/uL (130-400) 06/05/23 05:30 MPV 10.0 fL (9.4-12.4) 06/05/23 05:30 Immature Gran % (Auto) 0.3 % 06/02/23 05:44 Neut % (Auto) 73.6 % 06/02/23 05:44 Lymph % (Auto) 16.0 % 06/02/23 05:44 Mayes % (Auto) 8.2 % 06/02/23 05:44 Eos % (Auto) 1.3 % 06/02/23 05:44 Baso % (Auto) 0.6 % 06/02/23 05:44 Reticulocyte % (Auto) 1.74 % (0.50-2.00) 06/01/23 18:20 Neut # (Auto) 4.93 K/uL (1.40-6.50) 06/02/23 05:44 Lymph # (Auto) 1.07 K/uL (1.20-3.40) L 06/02/23 05:44 Mayes # (Auto) 0.55 K/uL (0.11-0.59) 06/02/23 05:44 Eos # (Auto) 0.09 K/uL (0.00-0.50) 06/02/23 05:44 Baso # (Auto) 0.04 K/uL (0.00-0.20) 06/02/23 05:44 Reticulocyte # 0.040 10^6/uL (0.020-0.100) 06/01/23 18:20 Immature Gran # (Auto) 0.02 K/uL (0.01-0.20) 06/02/23 05:44 Absolute Nucleated RBC 0.03 K/uL (0.00-0.12) 06/05/23 05:30 Nucleated RBC % (auto) 0.4 % 06/05/23 05:30 RBC Morphology Unremarkable 06/02/23 05:44 APTT 32 Seconds (21-31) H 06/02/23 05:44 PTT Ratio 1.1 06/02/23 05:44 Sample Site R Radial 06/02/23 07:44 POC pH 7.38 (7.35-7.45) 06/02/23 07:44 POC pCO2 55 mmHg (35-46) H 06/02/23 07:44 POC pO2 77 mmHg (80-95) L 06/02/23 07:44 POC HCO3 32 jaime/L (19-24) H 06/02/23 07:44 POC Total CO2 34 mmol/L (24-31) H 06/02/23 07:44 POC Base Excess 7.0 jaime/L (-9-1.8) H 06/02/23 07:44 ABG pH 7.42 (7.35-7.45) 06/01/23 21:03 ABG pH (Temp Correct) 7.379 (7.35-7.45) 06/02/23 07:44 ABG pCO2 53 mmHg (35-46) H 06/01/23 21:03 ABG pCO2 (Temp Corrct 55 mmHg (35-46) H 06/02/23 07:44 ABG pO2 210 mmHg (80-95) H 06/01/23 21:03 POC ABG pO2 at Pt Temp 77 06/02/23 07:44 ABG HCO3 34 mmol/L (19-24) H 06/01/23 21:03 POC ABG O2 Sat 95.0 % (90-95) 06/02/23 07:44 ABG O2 Saturation 97.9 % (90-95) H 06/01/23 21:03 ABG Base Excess 8.2 mEq/L (-9-1.8) H 06/01/23 21:03 Steffen Test Pass 06/02/23 07:44 VBG pH 7.31 (7.36-7.41) L 06/01/23 18:20 VBG pCO2 65 mmHg (38-50) H 06/01/23 18:20 VBG pO2 63 mmHg 06/01/23 18:20 VBG HCO3 33 mmol/L 06/01/23 18:20 VBG O2 Saturation 90.9 % 06/01/23 18:20 VBG Base Excess 4.4 mEq/L 06/01/23 18:20 Oxygen Given 15 L 06/01/23 21:03 O2 Delivery Device BIPAP 06/02/23 07:44 POC O2 Rate 21 06/02/23 07:44 POC FiO2 50 % 06/02/23 07:44 IPAP 10 06/02/23 07:44 POC Sodium 135 mmol/L (135-144) 06/02/23 07:44 Sodium 132 mmol/L (136-145) L 06/06/23 06:08 POC Potassium 4.5 mmol/L (3.3-5.0) 06/02/23 07:44 Potassium 5.0 mmol/L (3.5-5.1) 06/06/23 06:08 Chloride 97 mmol/L (98-107) L 06/06/23 06:08 Carbon Dioxide 27 mmol/L (21-32) 06/06/23 06:08 Anion Gap 8 (3-11) 06/06/23 06:08 BUN 63 mg/dl (6-23) H 06/06/23 06:08 Creatinine 7.50 mg/dl (0.6-1.4) H* D 06/06/23 06:08 Est Cr Clr Drug Dosing 6.1 ml/min 06/06/23 06:08 Est GFR ( Amer) 7.2 ml/min 06/06/23 06:08 Est GFR (Non-Af Amer) 6.2 ml/min 06/06/23 06:08 BUN/Creatinine Ratio 8.4 (10-20) L 06/06/23 06:08 Glucose 89 mg/dl (70-99(Fasting)) 06/06/23 06:08 POC Glucose 115 mg/dl (70-99) H 06/02/23 20:53 Estimat Average Glucose 111 mg/dl 06/01/23 21:03 Hemoglobin A1c 5.5 % (4.5-5.6) 06/01/23 21:03 Lactate 1.0 mmol/L (0.4-2.0) 06/01/23 21:03 Calcium 10.3 mg/dl (8.6-10.3) 06/06/23 06:08 Phosphorus 3.3 mg/dl (2.5-4.9) 06/05/23 05:30 Magnesium 2.6 mg/dl (1.7-2.4) H 06/06/23 06:08 Iron 64 mcg/dl (35-175) 06/01/23 20:37 Transferrin 133 mg/dl (200-360) L 06/01/23 20:37 Ferritin 1174.9 ng/ml (8-388) H 06/01/23 20:37 Total Bilirubin 0.6 mg/dl (0.2-1.0) 06/01/23 18:20 AST 18 U/L (13-39) 06/01/23 18:20 ALT 15 U/L (7-52) 06/01/23 18:20 Alkaline Phosphatase 73 U/L (34-104) 06/01/23 18:20 Troponin I High Sens 1511.2 pg/ml (0-20) H* 06/02/23 22:51 B-Natriuretic Peptide 3197 pg/ml (0-100) H 06/01/23 18:20 Total Protein 7.4 gm/dl (6.0-8.3) 06/01/23 18:20 Albumin 3.6 gm/dl (3.4-5.0) 06/01/23 18:20 Globulin 3.8 gm/dl (2.5-4.0) 06/01/23 18:20 Albumin/Globulin Ratio 0.9 (0.9-2) 06/01/23 18:20 Vitamin B12 717 pg/ml (180-914) 06/01/23 21:03 Folate > 22.30 ng/ml (>5.38) 06/01/23 21:03 Procalcitonin 0.42 ng/ml (0-0.5) 06/01/23 18:20 TSH 4.026 uIu/ml (0.300-4.500) 06/06/23 06:08 Urine Color Yellow 06/01/23 19:00 Urine Appearance Cloudy (Clear) A 06/01/23 19:00 Urine pH >= 9.0 (4.5-7.5) H 06/01/23 19:00 Ur Specific Witt 1.011 (1.000-1.030) 06/01/23 19:00 Urine Protein 3+ (Negative) H 06/01/23 19:00 Urine Glucose (UA) Trace (Negative) H 06/01/23 19:00 Urine Ketones Negative (Negative) 06/01/23 19:00 Urine Blood 1+ (Negative) H 06/01/23 19:00 Urine Nitrite Negative (Negative) 06/01/23 19:00 Urine Bilirubin Negative (Negative) 06/01/23 19:00 Urine Urobilinogen Negative (Negative) 06/01/23 19:00 Ur Leukocyte Esterase 3+ (Negative) H 06/01/23 19:00 Urine WBC (Auto) >30 /hpf (0-5) H 06/01/23 19:00 Urine RBC (Auto) 0-4 /hpf (0-4) 06/01/23 19:00 U Hyaline Cast (Auto) 1-5 /lpf (0-5) 06/01/23 19:00 U Epithel Cells (Auto) >30 /lpf (0-5) H 06/01/23 19:00 Urine Bacteria (Auto) Negative (Negative) 06/01/23 19:00 Urine Yeast Not Reportable 06/01/23 19:00 Nasal Screen MRSA (PCR) Negative (Negative) 06/02/23 08:20 Adenovirus (PCR) Not Detected (NotDetected) 06/01/23 18:44 B. pertussis DNA (PCR) Not Detected (NotDetected) 06/01/23 18:44 B.parapertussis DNA PCR Not Detected (NotDetected) 06/01/23 18:44 Lyme Disease Screen Negative (Negative) 06/06/23 11:50 C. pneumoniae DNA (PCR) Not Detected (NotDetected) 06/01/23 18:44 Coronavirus OC43 (PCR) Not Detected (NotDetected) 06/01/23 18:44 Coronavirus HKU1 (PCR) Not Detected (NotDetected) 06/01/23 18:44 Coronavirus 229E (PCR) Not Detected (NotDetected) 06/01/23 18:44 SARS-CoV-2 (PCR) Not Detected (NotDetected) 06/01/23 18:44 Coronavirus NL63 (PCR) Not Detected (NotDetected) 06/01/23 18:44 Hep Bs Antigen NON-REACTIVE (NON-REACTIVE) 06/02/23 17:33 Hep Bs Ag Confirmation TNP 06/02/23 17:33 Hep Bs Antibody, Quant 146 mIU/mL (> OR = 10) 06/02/23 17:33 Human Metapneumovir PCR Not Detected (NotDetected) 06/01/23 18:44 Influenza Type A (PCR) Not Detected (NotDetected) 06/01/23 18:44 Influenza Type B (PCR) Not Detected (NotDetected) 06/01/23 18:44 M. pneumoniae (PCR) Not Detected (NotDetected) 06/01/23 18:44 Parainfluenza 1 (PCR) Not Detected (NotDetected) 06/01/23 18:44 Parainfluenza 2 (PCR) Not Detected (NotDetected) 06/01/23 18:44 Parainfluenza 3 (PCR) Not Detected (NotDetected) 06/01/23 18:44 Parainfluenza 4 (PCR) Not Detected (NotDetected) 06/01/23 18:44 RSV (PCR) Not Detected (NotDetected) 06/01/23 18:44 Entero/Rhino (PCR) Not Detected (NotDetected) 06/01/23 18:44 Impressions Chest X-Ray 06/06/23 07:00 XR chest 1V portable HISTORY: pneumothorax COMPARISON: Chest 06/05/2023. FINDINGS: No definite pneumothorax. The heart remains enlarged. Small right and trace left pleural effusions with bibasilar densities again noted. Mild pulmonary vascular congestion again noted. No acute fractures. IMPRESSION: 1. No definite pneumothorax. 2. Small right and trace left pleural effusion with bibasilar densities persist. 3. Cardiomegaly and mild congestive change again noted. ACT 112: Negative or not required by law. Electronically signed by: Carlos Jean-Baptiste M.D. 06/06/2023 7:58 AM Hospital Course (1) Acute hypoxemic respiratory failure: Acute hypoxemic, hypercapnic respiratory failure Pulmonary edema/Volume overload Loculated bibasilar pneumothorax/postprocedural pneumothorax--POA Chronic oxygen dependency--on 2 L at bedtime In setting of COPD/Pulm hypertension/nocturnal hypoxemia/recurrent right pleural effusion Patient underwent ultrasound-guided right thoracentesis at [facility] on 05/31/23 --CXR:Moderate size right pneumothorax which appears loculated, as described above. Small right pleural effusion. Interstitial thickening and alveolar opacities within the lungs. The findings could reflect pneumonia or pulmonary edema. Moderate cardiomegaly. --Repeat CXR:Cardiomegaly and emphysema with evidence of congestive failure. Bilateral opacities could represent multifocal pneumonia and/or pulmonary edema. Correlate clinically. A chest tube at the right lung base is unchanged in position and a small residual right apical pneumothorax is similar to today's earlier examination. Right larger than left pleural effusions with dependent consolidation. --S/P Right pigtail catheter placement in ED --Appreciate critical care input --Received IV Lasix --Continue supplemental oxygen as needed --Nephrology consulted as well to help with dialysis -- Appreciate critical care input Chest tube was discontinued, occlusive dressing was applied Needs follow-up with [facility] pulmonology as outpatient 2 step:he needed 2L at rest and 3L with ambulation Plan to to discharge home today Sinus bradycardia TSH normal Discontinued atenolol Avoid AV kumar blocking agents Appreciate cardiology input Advised to follow-up with cardiology as outpatient Hypertensive urgency Likely situational Received IV labetalol in ED BP improved with dialysis Continue amlodipine atenolol discontinued due to bradycardia Monitor BP Elevated troponin Demand ischemia secondary to hypoxia, hypertensive urgency in setting of end- stage renal disease --ECHO: Mild concentric LVH. Left ventricle wall motion is normal. EF 55%. Aortic valve is mildly calcified. Mild valvular aortic stenosis. Grade 1 diastolic dysfunction. Appreciate cardiology input UTI--POA Urine culture grew Pseudomonas Rocephin changed to cefepime Day #3>>Cipro to complete the course Continue IV antibiotics while hospitalized ESRD Normally on Monday schedule Appreciate nephrology input Monitor volume status Dialysis as per nephrology Valvular heart disease ECHO as above Continue home medications Prostate cancer on Lupron Anemia of chronic disease No obvious bleeding issues Monitor CBC Ongoing tobacco abuse Counseled to quit smoking DVT Px: Heparin SQ Code Status Full code Disposition Home Total Time Total Time Spent Total Time Spent (In Minutes): 65 minutes Discharge Plan Discharge Items Patient Disposition: Home - Self-Care Reason For Visit: RESP FAILURE Discharge Diagnosis: Acute hypoxemic, hypercapnic respiratory failure Pulmonary edema Postprocedural pneumothorax Sinus bradycardia Urinary tract infection Activity: Per Instructions section Exercise/Sports: Wait until after follow-up appointment Non-emergency contact: Primary Care Provider, Strip Cutting Machine Operator and Mid Level Clinician Call non-emergency contact if: you have any medication questions, your symptoms worsen, your pain is concerning for you and you have a fever Follow-up/Referrals: Edgar Gamble MD [Primary Care Provider] - Diet: Dialysis Renal Addtl Attending Provider Instructions: Follow-up with your primary care physician Dr. Gamble on 06/11 at 9:00 AM Follow up with your Mid Level Clinician in 1-2 weeks as advised Consider following with your specialty therapist for further evaluation of low heart rate as advised --Complete the antibiotic course for Ciprofloxacin for 3 more days as prescribed for urinary tract infection --Use supplemental oxygen 2 L via nasal cannula at rest and 3 L with activity as advised. -- Continue dialysis as recommended by your refractory grinder operator --Your atenolol is discontinued secondary to low heart rate as recommended by your specialty therapist. Seek immediate medical attention if your symptoms reoccur or worsen Please take all medications as instructed on discharge list below. Please call if you have any questions or problems. You can reach a [facility] hospitalist on duty at [facility] 24 hours a day by calling [phone] Pending Studies at Discharge: Yes Studies:: Blood cultures Stand-Alone Forms: [facility], Smoking Cessation Medications and DC Order Prescriptions: New ciprofloxacin HCl 250 mg tablet 250 mg PO DAILY Qty: 3 0RF Rx Instructions: Start taking from 06/07/23 Continued calcium acetate(phosphat bind) 667 mg Capsule 2,001 mg PO TIDM Rx Instructions: 3 tablet dose citalopram 10 mg tablet 10 mg PO HS amlodipine 5 mg tablet 5 mg PO QAM cholecalciferol (vitamin D3) [Vitamin D3] 50 mcg (2,000 unit) Tablet 50 mcg PO DAILY Mircera 100 mcg/0.3 mL Syringe 100 mcg IV .SELECTED DATES Rx Instructions: IV PUSH MED Triferic 27.2 mg iron/5 mL Solution See Rx Instructions .ROUTE .COMPLEX Rx Instructions: given in Center 110mcg/lbc intravenous every treatment protein supplement Liquid See Rx Instructions .ROUTE .COMPLEX Rx Instructions: 1 ounce grape--give 30 cc orally weekly on 1st treatment 1 ounce peach jamil--give 30 cc orally weekly on 2nd scheduled treatment 1 ounce watermelon--give 30cc orally weekly on 3rd scheduled treatment albuterol sulfate [Ventolin HFA] 90 mcg/actuation HFA aerosol inhaler 2 puff INHALATION Q4 PRN (Reason: cough,SOB,wheezing) Gill-Farzana Rx 1-60-300 mg-mg-mcg tablet 1 tab PO DAILY torsemide 100 mg tablet 100 mg PO UD Rx Instructions: take on non-dialysis days Lupron Depot (6 Month) 45 mg Syringe Kit 45 mg IM .EVERY 6 MONTHS Discontinued atenolol 50 mg Tablet 50 mg PO HS Discharge Orders: Discharge Order (Routine); Ordered 06/06/23 Ordered By: Varun Reyes Admission Data Admit Date/Time: 06/01/23 22:20 Attending Provider: Varun Reyes Admit Provider: Tejinder Akhtar Primary Care Provider: Edgar Gamble Other Providers: Trung Marroquin; Tejinder Akhtar; Emilee Souza; Pako Ramos; Caesar iN; Bull Harry; Ana Tai; Maurice Mendoza; Poli Espitia; Jose Armando Sweet; Milla Loera; Paula Gil; Trevin García; Thaddeus Sanford; Tosin Syed; Marysol Escobar; Colin Knox; Jewel Rowan; Jerson Reed; Jordan Ibarra; Herman Martines; Margarita Saunders; Daniela Ruelas; Fannie Anaya; Marysol Boone; David Neal; Tee Deluca; Kath Thayer; Alysia Dillard; Gris Alford; Tristan Harrington; Oliverio Estrada
[2023-06-06] MEDS: CIPROFLOXACIN 250 MG TAB PO ONE (14:14)
--- NOTE | 2023-06-07 06:02 | Electrocardiogram Report ---
Test Reason : Blood Pressure : / mmHG Vent. Rate : 051 BPM Atrial Rate : 051 BPM P-R Int : 172 ms QRS Dur : 084 ms QT Int : 500 ms P-R-T Axes : 040 -10 075 degrees QTc Int : 460 ms Sinus bradycardia Left ventricular hypertrophy with repolarization abnormality Abnormal ECG When compared with ECG of 02-JUN-2023 07:40, Vent. rate has decreased BY 33 BPM Confirmed by Alex Ghotra ([id number]) on 06/07/2023 6:02:01 AM Referred By: REFERRED SELF Confirmed By:Alex Ghotra
--- NOTE | 2023-06-09 05:44 | Electrocardiogram Report ---
Test Reason : Blood Pressure : / mmHG Vent. Rate : 057 BPM Atrial Rate : 057 BPM P-R Int : 168 ms QRS Dur : 084 ms QT Int : 486 ms P-R-T Axes : 000 187 078 degrees QTc Int : 473 ms Sinus bradycardia Right superior axis deviation Limb lead rerversal Prolonged QT Abnormal ECG When compared with ECG of 05-JUN-2023 10:37, Limb lead reversal is now present Confirmed by Alex Ghotra ([id number]) on 06/09/2023 5:44:22 AM Referred By: REFERRED SELF Confirmed By:Alex Ghotra
== END 2023-06-06 15:12 | disposition home or self-care (01) | DRG 199 ==
LOC: ED 18:03 → EDINP 22:20 → 1E 23:17 → 4W 06-04 02:42

== ENCOUNTER 2023-07-03 23:26 | Inpatient (IN) ==
[2023-07-03 23:48] LABS: iSTAT Creatinine 5.8 mg/dl (0.6-1.3); iSTAT Hemoglobin 9.5 g/dl (14.0-18.0); iSTAT Ionized Calcium 1.34 mmol/l (1.12-1.32); iSTAT Potassium 4.1 mmol/L (3.3-5.0)
[2023-07-03] MEDS: PROPOFOL IV EMULSION 10 MG/ML 100 ML VIAL IV ONE (23:52)
[2023-07-04 00:15] LABS: INR 1.1 (0.9-1.1); Partial Thromboplastin Time 26 Seconds (21-31); Prothrombin Time 11.8 Seconds (9.0-12.0)
--- NOTE | 2023-07-04 00:17 | Emergency Department Note ---
History of Present Illness General Chief complaint: Unresponsive Stated complaint: UNRESPONSIVE Time Seen by Provider: 07/03/23 23:32 Source: EMS History of Present Illness Provider complaint: Difficulty breathing altered mental status unresponsive 78-year-old male presented to the emergency department for difficulty breathing altered mental status and unresponsiveness. EMS reports they received a call from the patient residence about the patient having difficulty breathing. EMS reports that the patient was having oxygen saturation in the 80s. They stated he is a dialysis patient, Monday and had an extra hour of dialysis due to increased fluids. They stated they were about the patient's the patient on BiPAP and he was speaking to them when he suddenly became unresponsive and was not speaking and was having more difficulty breathing. Home Medications Medication Instructions Recorded Confirmed Type calcium acetate(phosphat bind) 667 1,334 mg PO TIDM 03/02/18 07/03/23 History mg capsule amlodipine 5 mg tablet 5 mg PO QAM 02/17/22 07/03/23 History citalopram 10 mg tablet 10 mg PO HS 02/17/22 07/03/23 History cholecalciferol (vitamin D3) 50 50 mcg PO DAILY 02/18/22 07/03/23 History mcg (2,000 unit) tablet (Vitamin D3) albuterol sulfate 90 mcg/actuation 2 puff inhalation Q4 PRN 06/01/23 07/03/23 History aerosol inhaler (Ventolin HFA) cough,SOB,wheezing leuprolide acetate (6 month) 45 mg 45 mg IM .EVERY 6 MONTHS 06/01/23 07/03/23 History intramuscular syringe kit (Lupron Depot) torsemide 100 mg tablet 100 mg PO QAM 06/01/23 07/03/23 History vitamin B comp no.3-folic acid 1 1 tab PO DAILY 06/01/23 07/03/23 History mg-vit C 60 mg-biotin 300 mcg tablet (Gill-Farzana Rx) lorazepam 0.5 mg tablet 0.5 mg PO Q8H PRN Anxiety 07/03/23 07/03/23 History umeclidinium 62.5 mcg/actuation 1 inh inhalation DAILY 07/03/23 07/03/23 History blister powder for inhalation (Incruse Ellipta) Allergies Allergy/AdvReac Type Severity Reaction Status Date / Time pantoprazole Allergy Severe EDEMA Verified 07/03/23 23:53 FACE/LIPS/TONGUE latex Allergy Unknown ON Verified 07/04/23 00:00 [facility] [employer] MED LIST Past Med/Surg History Medical History COPD (chronic obstructive pulmonary disease) Hypertensive urgency AV fistula left arm Permanent central venous catheter in place Tobacco use Chronic anemia Chronic indwelling [place] catheter Obstruction of nephrostomy tube Admitted for this 11/2017 along with hypertensive urgency HTN (hypertension) Was treated for hypertensive urgency at [facility] 11/2017 Prostate cancer Currently in remission. On Leupron injections. CKD (chronic kidney disease), stage V DIALYSIS 3 X WEEK LOCK HAVEN PA (//MON) VIA PERMA CATH Bladder stones Urinary retention Hyperkalemia On a K restricted diet Surgical History History of surgery PLACEMENT OF NEPHROSTOMY TUBE Family History Other Breast cancer Lung cancer No pertinent family history Stomach cancer Social History Smoking Status: Unknown if ever smoked Tobacco Type: Cigarettes Cigarettes Per Day: 2 packs a week; Second Hand Exposure: No; Do You Dip or Chew Tobacco: No; Hx Alcohol Use: No Hx Substance Use: No Preferred Language: Greek Communication Ability: Effective Visual Impairment: No Limitations Machine Finisher Required: No Beliefs That Will Affect Care: None marital status: Current Living Situation: Spouse Current Living Situation Comment: Home Feels Safe at Home: Yes Assistive Devices: Oxygen - at Night and Other Physical Exam Vital Signs Vital Signs - 24 hr 07/03/23 23:31 07/03/23 23:34 07/03/23 23:35 Pulse Rate 87 Pulse Rate [Apical] 87 95 H Pulse Rhythm [Apical] Regular Pulse Strength [Apical] Normal Respiratory Rate 18 20 Respiratory Effort / Characteristics Respiratory Depth Respiratory Pattern Blood Pressure [Right Arm] 194/96 H 188/96 H Blood Pressure Mean [Right Arm] 128 126 Blood Pressure Position [Right Arm] Lying Pulse Oximetry 100 100 Oxygen Delivery Method Ambu-Bag Ambu-Bag Oxygen Flow Rate 15 Fraction of Inspired Oxygen SaO2/FiO2 Ratio Sepsis Recent Fever Within 48 Hours Sepsis New/Unexplained Change in Mental Status Sepsis Action Taken by Nursing End-Tidal CO2 End Tidal CO2 (18-54mmHg) 07/03/23 23:40 07/03/23 23:45 07/03/23 23:50 Pulse Rate Pulse Rate [Apical] 111 H 108 H 100 H Pulse Rhythm [Apical] Regular Regular Pulse Strength [Apical] Normal Respiratory Rate 20 20 20 Respiratory Effort / Characteristics Respiratory Depth Respiratory Pattern Blood Pressure [Right Arm] 168/97 H 138/87 144/86 H Blood Pressure Mean [Right Arm] 120 104 105 Blood Pressure Position [Right Arm] Lying Lying Lying Pulse Oximetry 100 Oxygen Delivery Method Ambu-Bag Mechanical Vent Mechanical Vent Oxygen Flow Rate Fraction of Inspired Oxygen SaO2/FiO2 Ratio Sepsis Recent Fever Within 48 Hours Sepsis New/Unexplained Change in Mental Status Sepsis Action Taken by Nursing End-Tidal CO2 End Tidal CO2 (18-54mmHg) 74 63 57 07/04/23 00:00 07/04/23 00:05 07/04/23 00:13 Pulse Rate Pulse Rate [Apical] 96 H 97 H 102 H Pulse Rhythm [Apical] Regular Regular Pulse Strength [Apical] Normal Normal Respiratory Rate 20 20 20 Respiratory Effort / Characteristics Mechanically Ventilated Mechanically Ventilated Respiratory Depth Respiratory Pattern Blood Pressure [Right Arm] 161/89 H 165/93 H 178/95 H Blood Pressure Mean [Right Arm] 113 117 122 Blood Pressure Position [Right Arm] Lying Lying Lying Pulse Oximetry 98 99 Oxygen Delivery Method Mechanical Vent Mechanical Vent Mechanical Vent Oxygen Flow Rate Fraction of Inspired Oxygen SaO2/FiO2 Ratio Sepsis Recent Fever Within 48 Hours Sepsis New/Unexplained Change in Mental Status Sepsis Action Taken by Nursing End-Tidal CO2 End Tidal CO2 (18-54mmHg) 48 45 44 07/04/23 00:14 07/04/23 00:23 07/04/23 00:25 Pulse Rate Pulse Rate [Apical] 101 H 100 H Pulse Rhythm [Apical] Regular Regular Pulse Strength [Apical] Normal Respiratory Rate 22 22 Respiratory Effort / Characteristics Mechanically Ventilated Mechanically Ventilated Respiratory Depth Respiratory Pattern Blood Pressure [Right Arm] 179/101 H 176/99 H Blood Pressure Mean [Right Arm] 127 124 Blood Pressure Position [Right Arm] Lying Lying Pulse Oximetry 95 98 Oxygen Delivery Method Mechanical Vent Mechanical Vent Oxygen Flow Rate Fraction of Inspired Oxygen SaO2/FiO2 Ratio Sepsis Recent Fever Within 48 Hours No Sepsis New/Unexplained Change in Mental Status N/A Sepsis Action Taken by Nursing No Action Required End-Tidal CO2 End Tidal CO2 (18-54mmHg) 42 40 07/04/23 00:30 07/04/23 00:35 07/04/23 00:36 Pulse Rate 87 Pulse Rate [Apical] 98 H 95 H Pulse Rhythm [Apical] Regular Regular Pulse Strength [Apical] Normal Respiratory Rate 22 22 20 Respiratory Effort / Characteristics Mechanically Ventilated Mechanically Ventilated Respiratory Depth Normal Respiratory Pattern Blood Pressure [Right Arm] 175/101 H 176/100 H Blood Pressure Mean [Right Arm] 125 125 Blood Pressure Position [Right Arm] Lying Lying Pulse Oximetry 98 99 99 Oxygen Delivery Method Mechanical Vent Mechanical Vent Oxygen Flow Rate Fraction of Inspired Oxygen 60 SaO2/FiO2 Ratio Sepsis Recent Fever Within 48 Hours Sepsis New/Unexplained Change in Mental Status Sepsis Action Taken by Nursing End-Tidal CO2 60 End Tidal CO2 (18-54mmHg) 37 36 07/04/23 00:40 07/04/23 00:40 07/04/23 00:48 Pulse Rate Pulse Rate [Apical] 92 H 91 H Pulse Rhythm [Apical] Regular Regular Pulse Strength [Apical] Normal Normal Respiratory Rate 22 22 22 Respiratory Effort / Characteristics Mechanically Ventilated Mechanically Ventilated Respiratory Depth Normal Respiratory Pattern Blood Pressure [Right Arm] 172/97 H 166/94 H Blood Pressure Mean [Right Arm] 122 118 Blood Pressure Position [Right Arm] Lying Lying Pulse Oximetry 98 99 Oxygen Delivery Method Mechanical Vent Mechanical Vent Oxygen Flow Rate Fraction of Inspired Oxygen SaO2/FiO2 Ratio Sepsis Recent Fever Within 48 Hours Sepsis New/Unexplained Change in Mental Status Sepsis Action Taken by Nursing End-Tidal CO2 End Tidal CO2 (18-54mmHg) 34 33 07/04/23 01:00 Pulse Rate Pulse Rate [Apical] 86 Pulse Rhythm [Apical] Regular Pulse Strength [Apical] Normal Respiratory Rate 22 Respiratory Effort / Characteristics Mechanically Ventilated Respiratory Depth Normal Respiratory Pattern Regular Blood Pressure [Right Arm] 138/100 Blood Pressure Mean [Right Arm] 112 Blood Pressure Position [Right Arm] Lying Pulse Oximetry 96 Oxygen Delivery Method Mechanical Vent Oxygen Flow Rate Fraction of Inspired Oxygen 40 SaO2/FiO2 Ratio 240 Sepsis Recent Fever Within 48 Hours Sepsis New/Unexplained Change in Mental Status Sepsis Action Taken by Nursing End-Tidal CO2 End Tidal CO2 (18-54mmHg) 31 Physical Exam GENERAL: Patient appears very ill. HENT: Exam performed. - Head: Normocephalic and atraumatic. EYES: Pupils 2 mm and reactive NECK: JVD present. CV: Normal rate, regular rhythm, normal heart sounds and intact distal pulses. 2+ pitting edema of the bilateral lower extremities palpable radial pulses bue. PULM/CHEST: Trachea midline. Good chest rise bilaterally. Bilateral breath sounds with rales and rhonchi bilaterally. - Chest Wall: No crepitus bilaterally. ABD: The abdomen is soft. MUSC/SKEL: Left upper extremity AV fistula. NEURO: GCS eye subscore is 4. GCS verbal subscore is 1. GCS motor subscore is 1. SKIN: Diaphoretic Procedures Intubation Time out performed: Yes sedative: Etomidate Mg Given: 20 paralytic: Rocuronium Mg Given: 65 Laryngoscope: other (glidescope) ET Tube Size: 7.5 ET Tube Uncuffed: Yes Tube Secured Depth (cm): 26 Tube Secured Location: lips Tube Placement Confirmation: visualized tube passing through cords, equal breath sounds bilaterally, no breath sounds over epigastrium and confirmation by capnometry Patient Tolerated Procedure: well Intubation Complications: none Course Course 2332: The patient was evaluated in room A1. A complete history and physical exam was performed Cardiac monitoring: An order was placed for continuous cardiac monitoring. The monitor shows a rate of 90 with sinus rhythm interpreted by me Bedside ultrasound was performed. Patient does have good lung sliding bilaterally. No pneumothorax detected by bedside ultrasound. Portable chest x- ray was performed and shows that the patient has cardiomegaly with fluid overload. No pneumothorax or infiltrate seen. EMS confirms that the patient is full code. External medical records were reviewed and the patient is full code in the EMR. Patient was intubated. See procedure note. 0022: CT of the head viewed by me shows no ICH. Discussed with [place] [facility] [employer] REPAIRER who agrees to evaluate the patient. 0030: Patient's venous pH is 7.09 with a venous pCO2 of 94. Tidal volume increased to 410 and respiratory rate increased to 22. Spoke with Dr. Valles [facility] Hospitalist will evaluate patient for admission. Patient becoming more hypertensive, started on nitroglycerin drip. Lasix ordered for the patient. 0117: Vital signs improved on nitro drip. Labs show white blood cell count 12.79. Hemoglobin 9.3. Coagulation studies within normal limits. Potassium 4.1. Lactic acid 1.7. proBNP 3500 high-sensitivity troponin 50.1. Urinalysis negative. Administered Medications Nitroglycerin/Dextrose (Nitroglycerin/D5w 100 Mcg/Ml) 250 mls @ 3 mls/hr IV .Q24H [facility]; Protocol Stop: 08/03/23 00:29 Last Admin: 07/04/23 00:45 Dose: 5 mcg/min, 3 mls/hr Documented By: MAXIMINO Co-signed By: DYLLAN Propofol (Diprivan) 1,000 mg in 100 mls @ 7.62 mls/hr IV .Q13H8M [facility]; Protocol Stop: 07/07/23 00:44 Last Titration: 07/04/23 01:08 Dose: 30 mcg/kg/min, 11.4 mls/hr Documented By: Admin: 07/04/23 00:42 Dose: 20 mcg/kg/min, 7.6 mls/hr Documented By: MAXIMINO Co-signed By: DYLLAN Discontinued Medications Furosemide (Furosemide 40 Mg/4 Ml Vial) 40 mg IV ONE ONE Stop: 07/03/23 23:50 Last Admin: 07/04/23 00:37 Dose: 40 mg Documented By: MAXIMINO Miscellaneous (Rapid Sequence Induction Bag) Confirm Administered Dose 1 each N/A .STK-MED ONE Stop: 07/03/23 23:31 Last Admin: 07/04/23 00:41 Dose: Not Given Documented By: MAXIMINO Vasquez (Stat Iv Infusion Titration Per Protocol) 1 each N/A NOW STA Stop: 07/04/23 00:26 Last Admin: 07/04/23 00:50 Dose: Not Given Documented By: MAXIMINO Vasquez (Stat Iv Infusion Titration Per Protocol) 1 each N/A NOW STA Stop: 07/04/23 00:37 Last Admin: 07/04/23 00:50 Dose: Not Given Documented By: MAXIMINO Propofol (Propofol Iv Emulsion 10 Mg/Ml 100 Ml Vial) Confirm Administered Dose 1,000 mg IV .STK-MED ONE Stop: 07/03/23 23:46 Last Admin: 07/03/23 23:52 Dose: 1,000 mg Documented By: DYLLAN Co-signed By: MAXIMINO Critical Care Time Critical Care Time: Yes Total Critical Care Time: 81 I have personally spent greater than 81 minutes of critical care time in the direct management of this patient. This includes bedside care, interpretation of diagnostic studies, and testing, discussion with consultants, patient, and family members, and other required patient management activities. This 81 minutes is in excess of all separately billable procedures. Medical Decision Making Laboratory Data Attestation: I reviewed the patient's lab results. 07/03/23 23:30 07/03/23 23:30 Lab Results 07/03/23 07/03/23 07/04/23 Range/Units 23:30 23:35 00:05 WBC 12.79 H (4.8-10.8) K/ul RBC 2.89 L (4.70-6.10) M/uL Hgb 9.3 L (14.0-18.0) g/dl POC Hgb 9.5 L (14.0-18.0) g/dl Hct 30.5 L (42.0-52.0) % POC Hct 28 L (42-52) % MCV 105.5 H (80.0-100.0) fL MCH 32.2 (25.0-34.0) pg MCHC 30.5 L (32.0-36.0) g/dL RDW Std Deviation 53.8 H (36.4-46.3) fL RDW Coeff of Stacy 14.1 (11.5-14.5) % Plt Count 279 (130-400) K/uL MPV 10.4 (9.4-12.4) fL Immature Gran % (Auto) 0.5 % Neut % (Auto) 63.8 % Lymph % (Auto) 28.1 % Wayne % (Auto) 4.9 % Eos % (Auto) 2.0 % Baso % (Auto) 0.7 % Neut # (Auto) 8.15 H (1.40-6.50) K/uL Lymph # (Auto) 3.60 H (1.20-3.40) K/uL Wayne # (Auto) 0.63 H (0.11-0.59) K/uL Eos # (Auto) 0.25 (0.00-0.50) K/uL Baso # (Auto) 0.09 (0.00-0.20) K/uL Immature Gran # (Auto) 0.07 (0.01-0.20) K/uL PT 11.8 (9.0-12.0) Seconds INR 1.1 (0.9-1.1) APTT 26 (21-31) Seconds PTT Ratio 1.0 VBG pH (7.36-7.41) VBG pCO2 (38-50) mmHg VBG pO2 mmHg VBG HCO3 mmol/L VBG O2 Saturation % VBG Base Excess mEq/L POC Sodium 140 (135-144) mmol/L Sodium 139 (136-145) mmol/L POC Potassium 4.1 (3.3-5.0) mmol/L Potassium 4.1 (3.5-5.1) mmol/L POC Chloride 102 (101-112) mmol/L Chloride 100 (98-107) mmol/L Carbon Dioxide 29 (21-32) mmol/L POC Total CO2 34 H (24-31) mmol/L Anion Gap 10 (3-11) POC Anion Gap 8.0 L (16-25) mmol/L POC BUN 57 H (7-18) mg/dl BUN 51 H (6-23) mg/dl Creatinine 6.17 H* (0.6-1.4) mg/dl POC Creatinine 5.8 H* (0.6-1.3) mg/dl Est Cr Clr Drug Dosing 8.6 ml/min Est GFR ( Amer) 9.1 ml/min Est GFR (Non-Af Amer) 7.8 ml/min BUN/Creatinine Ratio 8.3 L (10-20) Glucose 253 H (70-99(Fasting)) mg/dl POC Glucose (other) 243 H (70-99) mg/dl Lactate (0.4-2.0) mmol/L Calcium 9.5 (8.6-10.3) mg/dl POC Ioniz Calcium Leia 1.34 H (1.12-1.32) mmol/l Magnesium 2.3 (1.7-2.4) mg/dl Total Bilirubin 0.4 (0.2-1.0) mg/dl Direct Bilirubin 0.1 (0-0.2) mg/dl AST 20 (13-39) U/L ALT 18 (7-52) U/L Alkaline Phosphatase 92 (34-104) U/L Troponin I High Sens 50.1 H* (0-20) pg/ml B-Natriuretic Peptide (0-100) pg/ml Total Protein 7.7 (6.0-8.3) gm/dl Albumin 3.8 (3.4-5.0) gm/dl Procalcitonin 0.37 (0-0.5) ng/ml Urine Color Yellow Urine Appearance Turbid A (Clear) Urine pH >= 9.0 H (4.5-7.5) Ur Specific [place] 1.012 (1.000-1.030) Urine Protein 3+ H (Negative) Urine Glucose (UA) Trace H (Negative) Urine Ketones Negative (Negative) Urine Blood 1+ H (Negative) Urine Nitrite Negative (Negative) Urine Bilirubin Negative (Negative) Urine Urobilinogen Negative (Negative) Ur Leukocyte Esterase 3+ H (Negative) Urine WBC (Auto) >50 H (0-5) /hpf Urine RBC (Auto) >20 H (0-2) /hpf U Hyaline Cast (Auto) 6-10 H (0-2) /lpf U Epithel Cells (Auto) 0-2 (0-2) /hpf Urine Bacteria (Auto) 1+ H (None Seen) 07/04/23 Range/Units 00:07 WBC (4.8-10.8) K/ul RBC (4.70-6.10) M/uL Hgb (14.0-18.0) g/dl POC Hgb (14.0-18.0) g/dl Hct (42.0-52.0) % POC Hct (42-52) % MCV (80.0-100.0) fL MCH (25.0-34.0) pg MCHC (32.0-36.0) g/dL RDW Std Deviation (36.4-46.3) fL RDW Coeff of Stacy (11.5-14.5) % Plt Count (130-400) K/uL MPV (9.4-12.4) fL Immature Gran % (Auto) % Neut % (Auto) % Lymph % (Auto) % Wayne % (Auto) % Eos % (Auto) % Baso % (Auto) % Neut # (Auto) (1.40-6.50) K/uL Lymph # (Auto) (1.20-3.40) K/uL Wayne # (Auto) (0.11-0.59) K/uL Eos # (Auto) (0.00-0.50) K/uL Baso # (Auto) (0.00-0.20) K/uL Immature Gran # (Auto) (0.01-0.20) K/uL PT (9.0-12.0) Seconds INR (0.9-1.1) APTT (21-31) Seconds PTT Ratio VBG pH 7.09 L (7.36-7.41) VBG pCO2 94 H (38-50) mmHg VBG pO2 44 mmHg VBG HCO3 29 mmol/L VBG O2 Saturation 60.0 % VBG Base Excess -3.8 mEq/L POC Sodium (135-144) mmol/L Sodium (136-145) mmol/L POC Potassium (3.3-5.0) mmol/L Potassium (3.5-5.1) mmol/L POC Chloride (101-112) mmol/L Chloride (98-107) mmol/L Carbon Dioxide (21-32) mmol/L POC Total CO2 (24-31) mmol/L Anion Gap (3-11) POC Anion Gap (16-25) mmol/L POC BUN (7-18) mg/dl BUN (6-23) mg/dl Creatinine (0.6-1.4) mg/dl POC Creatinine (0.6-1.3) mg/dl Est Cr Clr Drug Dosing ml/min Est GFR ( Amer) ml/min Est GFR (Non-Af Amer) ml/min BUN/Creatinine Ratio (10-20) Glucose (70-99(Fasting)) mg/dl POC Glucose (other) (70-99) mg/dl Lactate 1.7 (0.4-2.0) mmol/L Calcium (8.6-10.3) mg/dl POC Ioniz Calcium Leia (1.12-1.32) mmol/l Magnesium (1.7-2.4) mg/dl Total Bilirubin (0.2-1.0) mg/dl Direct Bilirubin (0-0.2) mg/dl AST (13-39) U/L ALT (7-52) U/L Alkaline Phosphatase (34-104) U/L Troponin I High Sens (0-20) pg/ml B-Natriuretic Peptide 3500 H (0-100) pg/ml Total Protein (6.0-8.3) gm/dl Albumin (3.4-5.0) gm/dl Procalcitonin (0-0.5) ng/ml Urine Color Urine Appearance (Clear) Urine pH (4.5-7.5) Ur Specific [place] (1.000-1.030) Urine Protein (Negative) Urine Glucose (UA) (Negative) Urine Ketones (Negative) Urine Blood (Negative) Urine Nitrite (Negative) Urine Bilirubin (Negative) Urine Urobilinogen (Negative) Ur Leukocyte Esterase (Negative) Urine WBC (Auto) (0-5) /hpf Urine RBC (Auto) (0-2) /hpf U Hyaline Cast (Auto) (0-2) /lpf U Epithel Cells (Auto) (0-2) /hpf Urine Bacteria (Auto) (None Seen) Imaging Data Attestation: I personally reviewed and interpreted this imaging study as follows: My Impression: Chest x-ray #1: Portable chest x-ray was performed and shows that the patient has cardiomegaly with fluid overload. No pneumothorax or infiltrate seen. Chest x-ray #2: ETT in satisfactory position CT head: No ICH Radiologist's Impression: Head CT 07/03/23 23:35 Exam(s): CT HEAD Without Contrast EXAM: CT Head Without Intravenous Contrast CLINICAL HISTORY: Reason for exam: ams. TECHNIQUE: Axial computed tomography images of the head/brain without intravenous contrast. CTDI is 39 mGy and DLP is 703.85 mGy-cm. Automated exposure control was utilized for the study. A dose lowering technique was utilized adhering to the principles of ALARA. COMPARISON: CT Head dated 07/02/2008 FINDINGS: Brain: Volume loss with prominent ventricles and sulci. Mild periventricular white matter hypoattenuation likely reflects chronic small vessel disease. 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 New since the prior, although chronic appearance. No hemorrhage. Ventricles: See above. Bones/joints: Unremarkable. No acute fracture. Soft tissues: Unremarkable. Vasculature: Atherosclerotic calcifications of the cavernous carotid and vertebral arteries. Sinuses: Unremarkable as visualized. No acute sinusitis. Mastoid air cells: Unremarkable as visualized. No mastoid effusion. IMPRESSION: No acute findings in the head/brain. Electronically signed by: Carmen Berumen M.D. 07/04/23 01:01 AM ECG Data Attestation: I personally reviewed and interpreted this ECG as follows: Rate (beats per minute): 96 Rhythm: + normal sinus ECG Intervals/blocks: + Normal QRS, + Normal GA and + Normal QT-c ECG ST segments: + Normal ST segments [facility] Narrative 2332: The patient was evaluated in room A1. A complete history and physical exam was performed Cardiac monitoring: An order was placed for continuous cardiac monitoring. The monitor shows a rate of 90 with sinus rhythm interpreted by me Bedside ultrasound was performed. Patient does have good lung sliding bilaterally. No pneumothorax detected by bedside ultrasound. Portable chest x- ray was performed and shows that the patient has cardiomegaly with fluid overload. No pneumothorax or infiltrate seen. EMS confirms that the patient is full code. External medical records were reviewed and the patient is full code in the EMR. Patient was intubated. See procedure note. 0022: CT of the head viewed by me shows no ICH. Discussed with [place] [facility] [employer] REPAIRER who agrees to evaluate the patient. 0030: Patient's venous pH is 7.09 with a venous pCO2 of 94. Tidal volume increased to 410 and respiratory rate increased to 22. [facility] patient for [facility]. Patient becoming more hypertensive, started on nitroglycerin drip. Lasix ordered for the patient. 0117: Vital signs improved on nitro drip. Labs show white blood cell count 12.79. Hemoglobin 9.3. Coagulation studies within normal limits. Potassium 4.1. Lactic acid 1.7. proBNP 3500 high-sensitivity troponin 50.1. Urinalysis negative. Impression & Plan Acute hypoxemic respiratory failure, Pulmonary edema, COPD (chronic obstructive pulmonary disease) Discharge Plan Visit Data Chief Complaint: Unresponsive Stated Complaint: UNRESPONSIVE ED Provider: Ananda Jordan Discharge Problem: Acute hypoxemic respiratory failure, Pulmonary edema, COPD (chronic obstructive pulmonary disease) Patient Disposition: Admitted As Inpatient Forms Stand Alone Forms: [facility] Prescriptions Prescriptions: No Action calcium acetate(phosphat bind) 667 mg Capsule 1,334 mg PO TIDM Rx Instructions: 2 tablet dose citalopram 10 mg tablet 10 mg PO HS amlodipine 5 mg tablet 5 mg PO QAM cholecalciferol (vitamin D3) [Vitamin D3] 50 mcg (2,000 unit) Tablet 50 mcg PO DAILY albuterol sulfate [Ventolin HFA] 90 mcg/actuation HFA aerosol inhaler 2 puff INHALATION Q4 PRN (Reason: cough,SOB,wheezing) Gill-Farzana Rx 1-60-300 mg-mg-mcg tablet 1 tab PO DAILY torsemide 100 mg tablet 100 mg PO QAM Lupron Depot (6 Month) 45 mg Syringe Kit 45 mg IM .EVERY 6 MONTHS lorazepam 0.5 mg tablet 0.5 mg PO Q8H PRN (Reason: Anxiety) Incruse Ellipta 62.5 mcg/actuation Blister With Device 1 inh INHALATION DAILY Referrals Referrals: Edgar Gamble MD [Primary Care Provider] - Discharge Problem: Pulmonary edema Qualifiers: Chronicity: acute Qualified Code(s): J81.0 - Acute pulmonary edema COPD (chronic obstructive pulmonary disease) Qualifiers: COPD type: COPD with acute exacerbation Qualified Code(s): J44.1 - Chronic obstructive pulmonary disease with (acute) exacerbation
[2023-07-04 00:21] LABS: Base Excess VBG -3.8 mEq/L; HCO3 VBG 29 mmol/L; PCO2 VBG 94 mmHg (38-50); PO2 VBG 44 mmHg; pH VBG 7.09 (7.36-7.41)
[2023-07-04 00:29] LABS: Basophils # (auto) 0.09 K/uL (0.00-0.20); Basophils % (auto) 0.7 %; Eosinophils # (auto) 0.25 K/uL (0.00-0.50); Hematocrit (blood only) 30.5 % (42.0-52.0); Hemoglobin 9.3 g/dl (14.0-18.0); Immature Granulocytes # (auto) 0.07 K/uL (0.01-0.20); Immature Granulocytes % (auto) 0.5 %; Lymphocytes % (auto) 28.1 %; Mean Corpuscular Hemoglobin 32.2 pg (25.0-34.0); Mean Corpuscular Hgb Conc 30.5 g/dL (32.0-36.0); Mean Corpuscular Volume 105.5 fL (80.0-100.0); Mean Platelet Volume 10.4 fL (9.4-12.4); Monocytes # (auto) 0.63 K/uL (0.11-0.59); Monocytes % (auto) 4.9 %; Neutrophils # (auto) 8.15 K/uL (1.40-6.50); Neutrophils % (auto) 63.8 %; Platelet Count 279 K/uL (130-400); RDW Coefficient of Variation 14.1 % (11.5-14.5); RDW Standard Deviation 53.8 fL (36.4-46.3); Red Blood Count 2.89 M/uL (4.70-6.10); White Blood Count 12.79 K/ul (4.8-10.8)
[2023-07-04] MEDS: FUROSEMIDE 40 MG/4 ML VIAL IV ONE (00:37)
[2023-07-04] MEDS: RAPID SEQUENCE INDUCTION BAG ONE (00:41)
[2023-07-04] MEDS: propofoL 1,000 MG/100 ML VIAL IV SCH (00:42)
[2023-07-04] MEDS: NITROGLYCERIN/D5W 100MCG/ML 250 ML IV SCH (00:45)
[2023-07-04] MEDS: STAT IV Infusion **Titration per Protocol STA ×2 (00:50)
[2023-07-04 00:56] LABS: Appearance Urine Turbid (Clear); Bacteria Urine Automated 1+ (None Seen); Bilirubin Urine Negative (Negative); Blood Urine 1+ (Negative); Color Urine Yellow; Epithelial Cell Urine Auto 0-2 /hpf (0-2); Glucose Urine UA Trace (Negative); Ketones Urine Negative (Negative); Leukocyte Esterase Urine 3+ (Negative); Nitrite Urine Negative (Negative); Protein Urine 3+ (Negative); RBC Urine Automated >20 /hpf (0-2); Specific Gravity Urine 1.012 (1.000-1.030); Urobilinogen Urine Negative (Negative); WBC Urine Automated >50 /hpf (0-5); pH Urine >= 9.0 (4.5-7.5)
--- NOTE | 2023-07-04 01:02 | CT Scan Report ---
Exam(s): CT HEAD Without Contrast EXAM: CT Head Without Intravenous Contrast CLINICAL HISTORY: Reason for exam: ams. TECHNIQUE: Axial computed tomography images of the head/brain without intravenous contrast. CTDI is 39 mGy and DLP is 703.85 mGy-cm. Automated exposure control was utilized for the study. A dose lowering technique was utilized adhering to the principles of ALARA. COMPARISON: CT Head dated 07/02/2008 FINDINGS: Brain: Volume loss with prominent ventricles and sulci. Mild periventricular white matter hypoattenuation likely reflects chronic small vessel disease. 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 New since the prior, although chronic appearance. No hemorrhage. Ventricles: See above. Bones/joints: Unremarkable. No acute fracture. Soft tissues: Unremarkable. Vasculature: Atherosclerotic calcifications of the cavernous carotid and vertebral arteries. Sinuses: Unremarkable as visualized. No acute sinusitis. Mastoid air cells: Unremarkable as visualized. No mastoid effusion. IMPRESSION: No acute findings in the head/brain. Electronically signed by: Carmen Berumen M.D. 07/04/23 01:01 AM
[2023-07-04 01:03] LABS: Albumin Level 3.8 gm/dl (3.4-5.0); BUN Creatinine Ratio 8.3 (10-20); Bilirubin Direct 0.1 mg/dl (0-0.2); Bilirubin,Total 0.4 mg/dl (0.2-1.0); Calcium 9.5 mg/dl (8.6-10.3); Creatinine Clr Calc Pharmacy 8.6 ml/min; Est GFR (African American) 9.1 ml/min; Est GFR (Non-African American) 7.8 ml/min; Magnesium 2.3 mg/dl (1.7-2.4); Potassium 4.1 mmol/L (3.5-5.1); Total Protein 7.7 gm/dl (6.0-8.3); Troponin I High Sensitivity 50.1 pg/ml (0-20)
--- NOTE | 2023-07-04 01:06 | History & Physical Report ---
Date of Service July 04, 2023 Assessment & Plan (1) Acute on chronic respiratory failure with hypoxia and hypercapnia: Plan: Acute hypoxemic, hypercapnic respiratory failure Underlying COPD/pulm hypertension/nocturnal hypoxemia Secondary to fluid overload, history ESRD on HD Uncontrolled hypertension as possible precipitant Troponin elevation secondary to above Mild recurrent right pleural effusion, recent outpatient procedure aborted due insignificant pleural fluid on IR follow-up last week prostate cancer on Lupron chronic anemia, hemoglobin at baseline ongoing tobacco abuse. ICU Vent management Recheck ABG after adjusted settings Nephrology consult Re: Dialysis management Increase home amlodipine dose Follow troponin Nicotine replacement therapy as needed DVT prophylaxis. Heparin subcu Full code Patient requests updates providers. Ms. Eliana Padgett, contact number [phone]. Total critical care time was 40 minutes. Text document was generated using Poll Everywhere voice recognition software. It may contain grammatical or spelling errors. Kindly contact undersigned for clarification of any documentation item in question. History of Present Illness Chief Complaint: Worsening shortness of breath Primary Care Provider: Edgar Gamble MD History obtained from patient family and records. Unable to obtain history from patient secondary to intubated state. Medical history significant for hypertension, mild , pulmonary hypertension, COPD, recurrent right pleural effusion, nocturnal hypoxemia on home O2 at night, ESRD on HD, prostate cancer on Lupron, history of hydronephrosis, chronic anemia (baseline hemoglobin of 8-9), ongoing tobacco abuse. Recent confinement last month for respiratory failure secondary to pulmonary edema and postprocedural pneumothorax. Patient on atenolol discontinued due to bradycardia. Pseudomonas UTI status post Cipro Rx on discharge. Patient with worsening SOB the last few days. Intermittent symptoms. Denies chest pain or unusual cough symptoms as per . Compliant with dialysis treatments. SBP 150s to 160s at home as per . EMS summoned to patient's home last night. O2 sats noted to be 80s as per report. Worsening respiratory distress leading to unresponsiveness on the BiPAP. Patient intubated at the ER. SBP 190s upon arrival at the ER. Lasix and nitro drip administered at the ER. 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 Allergies Allergy/AdvReac Type Severity Reaction Status Date / Time pantoprazole Allergy Severe EDEMA Verified 07/03/23 23:53 FACE/LIPS/TONGUE latex Allergy Unknown ON Verified 07/04/23 00:00 K[place]at Home Medications Medication Instructions Recorded Confirmed Type calcium acetate(phosphat bind) 667 1,334 mg PO TIDM 03/02/18 07/03/23 History mg capsule amlodipine 5 mg tablet 5 mg PO QAM 02/17/22 07/03/23 History citalopram 10 mg tablet 10 mg PO HS 02/17/22 07/03/23 History cholecalciferol (vitamin D3) 50 50 mcg PO DAILY 02/18/22 07/03/23 History mcg (2,000 unit) tablet (Vitamin D3) albuterol sulfate 90 mcg/actuation 2 puff inhalation Q4 PRN 06/01/23 07/03/23 History aerosol inhaler (Ventolin HFA) cough,SOB,wheezing leuprolide acetate (6 month) 45 mg 45 mg IM .EVERY 6 MONTHS 06/01/23 07/03/23 History intramuscular syringe kit (Lupron Depot) torsemide 100 mg tablet 100 mg PO QAM 06/01/23 07/03/23 History vitamin B comp no.3-folic acid 1 1 tab PO DAILY 06/01/23 07/03/23 History mg-vit C 60 mg-biotin 300 mcg tablet (Gill-Farzana Rx) lorazepam 0.5 mg tablet 0.5 mg PO Q8H PRN Anxiety 07/03/23 07/03/23 History umeclidinium 62.5 mcg/actuation 1 inh inhalation DAILY 07/03/23 07/03/23 History blister powder for inhalation (Incruse Ellipta) Past Med/Surg History Medical History COPD (chronic obstructive pulmonary disease) Hypertensive urgency AV fistula left arm Permanent central venous catheter in place Tobacco use Chronic anemia Chronic indwelling [place] catheter Obstruction of nephrostomy tube Admitted for this 11/2017 along with hypertensive urgency HTN (hypertension) Was treated for hypertensive urgency at [facility] 11/2017 Prostate cancer Currently in remission. On Leupron injections. CKD (chronic kidney disease), stage V DIALYSIS 3 X WEEK ELENA PALMA (/THURS/SAT) VIA PERMA CATH Bladder stones Urinary retention Hyperkalemia On a K restricted diet Surgical History History of surgery PLACEMENT OF NEPHROSTOMY TUBE Family History Other Breast cancer Lung cancer No pertinent family history Stomach cancer Social History Smoking Status: Current every day smoker Tobacco Type: Cigarettes Cigarettes Per Day: 2 packs a week; Second Hand Exposure: No; Do You Dip or Chew Tobacco: No; Hx Alcohol Use: No Hx Substance Use: No Preferred Language: Armenian Communication Ability: Unable Communication Ability Comment: Patient is sedated at this time Visual Impairment: No Limitations Preanalytics Team Lead Required: No Beliefs That Will Affect Care: None marital status: Current Living Situation: Spouse Current Living Situation Comment: Home Other Information That Helps Us Care for You: No Feels Safe at Home: Yes Safety Concerns: Feels Safe At This Time Assistive Devices: Denture - Upper, Denture - Lower, Glasses, Hearing Aid - Bilateral, Oxygen - at Night and Oxygen - Continuous Review of Systems Review of Systems: Could not be reliably obtained secondary to intubated state Physical Exam Physical Exam: GENERAL: Sedated, intubated, chronically ill SKIN: Pallor, warm HEENT: Alopecia, pale palpebral conjunctivae, no ptosis, dry buccal mucosa, ET in place NECK : Supple, no tenderness CHEST : Decreased breath sounds, bilateral crackles, scattered expiratory wheezes, no chest wall tenderness HEART : RRR, systolic murmur ABDOMEN: no distention, nontender EXTREMITIES : No LE swelling/tenderness, no other conspicuous deformities noted NEUROLOGIC : Sedated, no facial asymmetry, gait and stance not assessed Results & Data Results & Data Vital Signs (Past 12 Hours) Vital Signs Pulse Pulse Resp BP Pulse Ox O2 Del Method O2 Flow Rate 07/04/23 00:48 91 H 22 166/94 H 99 Mechanical Vent 07/04/23 00:40 22 07/04/23 00:40 92 H 22 172/97 H 98 Mechanical Vent 07/04/23 00:36 87 20 99 07/04/23 00:35 95 H 22 176/100 H 99 Mechanical Vent 07/04/23 00:30 98 H 22 175/101 H 98 Mechanical Vent 07/04/23 00:25 100 H 22 176/99 H 98 Mechanical Vent 07/04/23 00:23 101 H 22 179/101 H 95 Mechanical Vent 07/04/23 00:13 102 H 20 178/95 H 99 Mechanical Vent 07/04/23 00:05 97 H 20 165/93 H 98 Mechanical Vent 07/04/23 00:00 96 H 20 161/89 H Mechanical Vent 07/03/23 23:50 100 H 20 144/86 H Mechanical Vent 07/03/23 23:45 108 H 20 138/87 Mechanical Vent 07/03/23 23:40 111 H 20 168/97 H 100 Ambu-Bag 07/03/23 23:35 95 H 20 188/96 H 100 Ambu-Bag 15 07/03/23 23:34 87 07/03/23 23:31 87 18 194/96 H 100 Ambu-Bag FiO2 07/04/23 00:48 07/04/23 00:40 07/04/23 00:40 07/04/23 00:36 60 07/04/23 00:35 07/04/23 00:30 07/04/23 00:25 07/04/23 00:23 07/04/23 00:13 07/04/23 00:05 07/04/23 00:00 07/03/23 23:50 07/03/23 23:45 07/03/23 23:40 07/03/23 23:35 07/03/23 23:34 07/03/23 23:31 Laboratory Results Laboratory Results WBC 12.79 K/ul (4.8-10.8) H 07/03/23 23:30 RBC 2.89 M/uL (4.70-6.10) L 07/03/23 23:30 Hgb 9.3 g/dl (14.0-18.0) L 07/03/23 23:30 POC Hgb 9.5 g/dl (14.0-18.0) L 07/03/23 23:35 Hct 30.5 % (42.0-52.0) L 07/03/23 23:30 POC Hct 28 % (42-52) L 07/03/23 23:35 MCV 105.5 fL (80.0-100.0) H 07/03/23 23:30 MCH 32.2 pg (25.0-34.0) 07/03/23 23:30 MCHC 30.5 g/dL (32.0-36.0) L 07/03/23 23: RDW Std Deviation 53.8 fL (36.4-46.3) H 07/03/23 23:30 RDW Coeff of Stacy 14.1 % (11.5-14.5) 07/03/23 23: Plt Count 279 K/uL (130-400) 07/03/23 23:30 MPV 10.4 fL (9.4-12.4) 07/03/23 23:30 Immature Gran % (Auto) 0.5 % 07/03/23 23:30 Neut % (Auto) 63.8 % 07/03/23 23:30 Lymph % (Auto) 28.1 % 07/03/23 23:30 [place] % (Auto) 4.9 % 07/03/23 23: Eos % (Auto) 2.0 % 07/03/23 23:30 Baso % (Auto) 0.7 % 07/03/23 23:30 Neut # (Auto) 8.15 K/uL (1.40-6.50) H 07/03/23 23:30 Lymph # (Auto) 3.60 K/uL (1.20-3.40) H 07/03/23 23:30 [place] # (Auto) 0.63 K/uL (0.11-0.59) H 07/03/23 23:30 Eos # (Auto) 0.25 K/uL (0.00-0.50) 07/03/23 23:30 Baso # (Auto) 0.09 K/uL (0.00-0.20) 07/03/23 23:30 Immature Gran # (Auto) 0.07 K/uL (0.01-0.20) 07/03/23 23:30 PT 11.8 Seconds (9.0-12.0) 07/03/23 23:30 INR 1.1 (0.9-1.1) 07/03/23 23:30 APTT 26 Seconds (21-31) 07/03/23 23: PTT Ratio 1.0 07/03/23 23: VBG pH 7.09 (7.36-7.41) L 07/04/23 00:07 VBG pCO2 94 mmHg (38-50) H 07/04/23 00:07 VBG pO2 44 mmHg 07/04/23 00:07 VBG HCO3 29 mmol/L 07/04/23 00:07 VBG O2 Saturation 60.0 % 07/04/23 00:07 VBG Base Excess -3.8 mEq/L 07/04/23 00:07 POC Sodium 140 mmol/L (135-144) 07/03/23 23:35 Sodium 139 mmol/L (136-145) 07/03/23 23:30 POC Potassium 4.1 mmol/L (3.3-5.0) 07/03/23 23:35 Potassium 4.1 mmol/L (3.5-5.1) 07/03/23 23:30 POC Chloride 102 mmol/L (101-112) 07/03/23 23:35 Chloride 100 mmol/L (98-107) 07/03/23 23:30 Carbon Dioxide 29 mmol/L (21-32) 07/03/23 23:30 POC Total CO2 34 mmol/L (24-31) H 07/03/23 23:35 Anion Gap 10 (3-11) 07/03/23 23:30 POC Anion Gap 8.0 mmol/L (16-25) L 07/03/23 23:35 POC BUN 57 mg/dl (7-18) H 07/03/23 23:35 BUN 51 mg/dl (6-23) H 07/03/23 23:30 Creatinine 6.17 mg/dl (0.6-1.4) H* 07/03/23 23:30 POC Creatinine 5.8 mg/dl (0.6-1.3) H* 07/03/23 23:35 Est Cr Clr Drug Dosing 8.6 ml/min 07/03/23 23:30 Est GFR ( Amer) 9.1 ml/min 07/03/23 23:30 Est GFR (Non-Af Amer) 7.8 ml/min 07/03/23 23:30 BUN/Creatinine Ratio 8.3 (10-20) L 07/03/23 23:30 Glucose 253 mg/dl (70-99(Fasting)) H 07/03/23 23:30 POC Glucose (other) 243 mg/dl (70-99) H 07/03/23 23:35 Lactate 1.7 mmol/L (0.4-2.0) 07/04/23 00:07 Calcium 9.5 mg/dl (8.6-10.3) 07/03/23 23:30 POC Ioniz Calcium Leia 1.34 mmol/l (1.12-1.32) H 07/03/23 23:35 Magnesium 2.3 mg/dl (1.7-2.4) 07/03/23 23:30 Total Bilirubin 0.4 mg/dl (0.2-1.0) 07/03/23 23:30 Direct Bilirubin 0.1 mg/dl (0-0.2) 07/03/23 23:30 AST 20 U/L (13-39) 07/03/23 23:30 ALT 18 U/L (7-52) 07/03/23 23:30 Alkaline Phosphatase 92 U/L (34-104) 07/03/23 23:30 Troponin I High Sens 50.1 pg/ml (0-20) H* 07/03/23 23:30 B-Natriuretic Peptide 3500 pg/ml (0-100) H 07/04/23 00:07 Total Protein 7.7 gm/dl (6.0-8.3) 07/03/23 23:30 Albumin 3.8 gm/dl (3.4-5.0) 07/03/23 23:30 Procalcitonin 0.37 ng/ml (0-0.5) 07/03/23 23:30 Urine Color Yellow 07/04/23 00:05 Urine Appearance Turbid (Clear) A 07/04/23 00:05 Urine pH >= 9.0 (4.5-7.5) H 07/04/23 00:05 Ur Specific [place] 1.012 (1.000-1.030) 07/04/23 00:05 Urine Protein 3+ (Negative) H 07/04/23 00:05 Urine Glucose (UA) Trace (Negative) H 07/04/23 00:05 Urine Ketones Negative (Negative) 07/04/23 00:05 Urine Blood 1+ (Negative) H 07/04/23 00:05 Urine Nitrite Negative (Negative) 07/04/23 00:05 Urine Bilirubin Negative (Negative) 07/04/23 00:05 Urine Urobilinogen Negative (Negative) 07/04/23 00:05 Ur Leukocyte Esterase 3+ (Negative) H 07/04/23 00:[address] 07/03/23 23:35 Exam(s): CT HEAD Without Contrast EXAM: CT Head Without Intravenous Contrast CLINICAL HISTORY: Reason for exam: ams. TECHNIQUE: Axial computed tomography images of the head/brain without intravenous contrast. CTDI is 39 mGy and DLP is 703.85 mGy-cm. Automated exposure control was utilized for the study. A dose lowering technique was utilized adhering to the principles of ALARA. COMPARISON: CT Head dated 07/02/2008 FINDINGS: Brain: Volume loss with prominent ventricles and sulci. Mild periventricular white matter hypoattenuation likely reflects chronic small vessel disease. 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 New since the prior, although chronic appearance. No hemorrhage. Ventricles: See above. Bones/joints: Unremarkable. No acute fracture. Soft tissues: Unremarkable. Vasculature: Atherosclerotic calcifications of the cavernous carotid and vertebral arteries. Sinuses: Unremarkable as visualized. No acute sinusitis. Mastoid air cells: Unremarkable as visualized. No mastoid effusion. IMPRESSION: No acute findings in the head/brain. Electronically signed by: Carmen Berumen M.D. 07/04/23 01:01 AM Diagnostic Findings Chest x-ray as per my interpretation: Cardiomegaly, congestion EKG as per my interpretation : Rate 95, NSR, LAD, LAFB, T wave abnormalities lateral leads
[2023-07-04 01:21] LABS: iSTAT Arterial Blood Gas HCO3 26 meg/L (19-24); iSTAT Arterial Blood Gas pCO2 52 mmHg (35-46); iSTAT Arterial Blood Gas pH 7.31 (7.35-7.45); iSTAT Arterial Blood Gas pO2 69 mmHg (80-95); iSTAT Carbon Dioxide 28 mmol/L (24-31); iSTAT Hematocrit 26 % (42-52); iSTAT Hemoglobin 8.8 g/dl (14.0-18.0); iSTAT Potassium 4.7 mmol/L (3.3-5.0); iSTAT Sodium 138 mmol/L (135-144)
[2023-07-04] MEDS: IPRATROPIUM BROMIDE NEB SOLN 0.02% 0.5MG/2.5ML VIAL INH STA (01:41)
[2023-07-04] MEDS: LEVALBUTEROL 1.25 MG/3 ML NEB NEB STA (01:41)
--- NOTE | 2023-07-04 02:10 | Critical Care Consultation ---
Date of Consultation July 04, 2023 Assessment & Plan (1) Acute on chronic respiratory failure with hypoxia and hypercapnia: Reason Critically Ill: 78-year-old male with past medical history significant for ESRD (on hemodialysis), valvular heart disease, COPD, recurrent pleural effusions, presented to the emergency department with altered mental status and hypoxia, and was emergently intubated. Patient now transferred to ICU mechanically ventilated for acute hypoxic and hypercapnic respiratory failure. Neuro - AMSCT head negative for acute intracranial findings. Likely related to underlying hypercapnia. Patient was reported to have had hemodialysis on Monday and current BUN 57. Currently sedated with propofol drip. Monitor for now. Cardiac - Valvular heart disease/pulmonary hypertensionappears to have acute CHF/pulmonary edema. -Currently hemodynamically stable with normal sinus rhythm on monitor. Initially hypertensive on nitro drip. -Was given 40 IV Lasix in the emergency department without response. -Continuous monitoring on telemetry. Respiratory - Acute on chronic hypoxic and hypercapnic respiratory failurepatient with recent admission for pneumothorax following thoracentesis for recurrent pleural effusions. Chest x-ray more consistent with acute CHF/pulmonary edema. - Unresponsive to diuresis at this time. Will likely need hemodialysis to remove volume - Follow-up a.m. ABG and chest x-ray -Continuous monitoring on pulse ox and end-tidal CO2 -Nebs as needed - Wean vent as tolerated GI - N.p.o. Famotidine RENAL/LYTES - ESRDreceives hemodialysis on Monday, , Monday with last session this past Monday when she was reported to have extra volume removed due to fluid overload - Creatinine 6.17, BUN 51 - No significant electrolyte abnormalities, no metabolic acidosis - Consult nephrology for scheduling of dialysis/fluid balance -Monitor routine BMPs - OliguricFoley inserted and the right nephrostomy tube with little concentrated urine output. Strict I's and O's ENDO - No history of diabetes or thyroid disease. ICU hyperglycemic protocol HEME - Chronic anemiahemoglobin appears to be at baseline. Trend H&H with routine CBC. ID - No clear indication for infectious process at this time. Trend fever curve LINES/IV ACCESS - Peripheral IVs DVT PROPHYLAXIS - SCDs, subcu heparin I have personally spent 47 minutes of critical care time in the direct management of this patient. This is a life/limb threatening event. This includes time spent evaluating patient, direct bedside care, chart review, placing orders, interpretation of diagnostic studies, discussion with consultants, patient, and family members, as well as other required patient management activities. This time is exclusive of all separately billable procedures, and teaching time and separate from and in addition to any other critical care service time. Thank you for allowing us to participate in the care of this patient. Please refer to my attending physician's documentation for any further recommendations. (2) Acute pulmonary edema: (3) COPD (chronic obstructive pulmonary disease): (4) End stage renal disease: (5) Aortic stenosis: (6) HTN (hypertension): (7) CKD (chronic kidney disease), stage V: (8) Prostate cancer: Supervising Physician Co-Signing Physician Notes Patient seen and examined. EMR reviewed. Discussed with critical care RAFAELA from overnight and during the day and agree with their assessment plan as noted. Patient had hypoxemic respiratory failure with diffuse pulmonary infiltrates. He is received dialysis with ultrafiltration. Will plan on pursuing sedation break and possible liberation from the mechanical ventilator later today as tolerated. No signs for infectious etiology. The patient did have a slight decrease in his hemoglobin and findings could be consistent with pulmonary hemorrhage however given his rapid improvement, we will hold off on additional evaluation for now. Assessment of long-term goals would be appropriate. History of Present Illness Attending Physician: Tejinder Akhtar MD History of Present Illness Patient is a 78-year-old male wiith past medical history significant for ESRD (HD Mon, mon, mon), HTN, COPD, pleural effusions, prostate CA (on Lupron), hydronephrosis, nephrostomy tube, valvular heart disease who presented to the emergency department with altered mental status and difficulty breathing. EMS responded to the patient's home when she was found to be unresponsive and hypoxic with oxygen saturations in the 80s. On arrival to the emergency department the patient was emergently intubated. He was noted to be hypertensive, on arrival and CXR consistent with pulmonary edema. CT head negative for acute intracranial findings. His lab work is mostly unremarkable for evidence of infectious process and he is undergoing treatment for what appears to be CHF exacerbation/acute pulmonary edema. Of note, He was recently admitted to [facility] after development of a pneumothorax following a [place]acent[place] [facility]. He normally follows with [facility] specialty therapist. Patient now transferred to ICU for further management at this time. Allergies Allergy/AdvReac Type Severity Reaction Status Date / Time pantoprazole Allergy Severe EDEMA Verified 07/03/23 23:53 FACE/LIPS/TONGUE latex Allergy Unknown ON Verified 07/04/23 00:00 Soft Machines LIST Home Medications Medication Instructions Recorded Confirmed Type calcium acetate(phosphat bind) 667 1,334 mg PO TIDM 03/02/18 07/03/23 History mg capsule amlodipine 5 mg tablet 5 mg PO QAM 02/17/22 07/03/23 History citalopram 10 mg tablet 10 mg PO HS 02/17/22 07/03/23 History cholecalciferol (vitamin D3) 50 50 mcg PO DAILY 02/18/22 07/03/23 History mcg (2,000 unit) tablet (Vitamin D3) albuterol sulfate 90 mcg/actuation 2 puff inhalation Q4 PRN 06/01/23 07/03/23 History aerosol inhaler (Ventolin HFA) cough,SOB,wheezing leuprolide acetate (6 month) 45 mg 45 mg IM .EVERY 6 MONTHS 06/01/23 07/03/23 History intramuscular syringe kit (Lupron Depot) torsemide 100 mg tablet 100 mg PO QAM 06/01/23 07/03/23 History vitamin B comp no.3-folic acid 1 1 tab PO DAILY 06/01/23 07/03/23 History mg-vit C 60 mg-biotin 300 mcg tablet (Gill-Farzana Rx) lorazepam 0.5 mg tablet 0.5 mg PO Q8H PRN Anxiety 07/03/23 07/03/23 History umeclidinium 62.5 mcg/actuation 1 inh inhalation DAILY 07/03/23 07/03/23 History blister powder for inhalation (Incruse Ellipta) Patient History Medical History COPD (chronic obstructive pulmonary disease) Hypertensive urgency AV fistula left arm Permanent central venous catheter in place Tobacco use Chronic anemia Chronic indwelling [place] catheter Obstruction of nephrostomy tube Admitted for this 11/2017 along with hypertensive urgency HTN (hypertension) Was treated for hypertensive urgency at [facility] 11/2017 Prostate cancer Currently in remission. On Leupron injections. CKD (chronic kidney disease), stage V DIALYSIS 3 X WEEK ELENA PALMA (TUES/THURS/SAT) VIA PERMA CATH Bladder stones Urinary retention Hyperkalemia On a K restricted diet Surgical History History of surgery PLACEMENT OF NEPHROSTOMY TUBE Family History Other Breast cancer Lung cancer No pertinent family history Stomach cancer Social History Smoking Status: Current every day smoker Tobacco Type: Cigarettes Cigarettes Per Day: 2 packs a week; Second Hand Exposure: No; Do You Dip or Chew Tobacco: No; Hx Alcohol Use: No Hx Substance Use: No Preferred Language: Chinese Communication Ability: Unable Communication Ability Comment: Patient is sedated at this time Visual Impairment: No Limitations Etl Manager Required: No Beliefs That Will Affect Care: None marital status: Current Living Situation: Spouse Current Living Situation Comment: Home Other Information That Helps Us Care for You: No Feels Safe at Home: Yes Safety Concerns: Feels Safe At This Time Assistive Devices: Denture - Upper, Denture - Lower, Glasses, Hearing Aid - Bilateral, Oxygen - at Night and Oxygen - Continuous Review of Systems Review of Systems: All systems reviewed & are unremarkable except as noted in HPI & below Physical Exam Constitutional: + mechanically ventilated; no acute dist ress Eyes: PERRL, conjunctivae normal, anicteric sclerae ENMT: external ear and nose normal, oropharynx normal Neck: trachea midline, no thyromegaly Respiratory: Crackles auscultated bilaterally in upper and lower lobes. Symmetrical chest wall movement. Mechanically ventilated. Cardiovascular: RRR, no murmur, no edema Heart Sounds: normal S1 and normal S2; no murmur Extremities: no edema Gastrointestinal (Abdomen): normal bowel sounds, soft, nontender, no hepatosplenomegaly Musculoskeletal: no cyanosis or clubbing, extremities motor strength 5/5 Skin: no rashes, warm and dry Neurologic: Unable to assess due to sedation Psychiatric: Unable to assess due to sedation Genitourinary: Indwelling [place] catheter present. Right nephrostomy tube with minimal drainage. Results & Data Results & Data Vital Signs (Past 12 Hours) Vital Signs Pulse Pulse Resp BP Pulse Ox O2 Del Method O2 Flow Rate 07/04/23 01:54 83 24 93 07/04/23 01:15 82 22 152/87 H 96 Mechanical Vent 07/04/23 01:00 86 22 138/100 96 Mechanical Vent 07/04/23 00:48 91 H 22 166/94 H 99 Mechanical Vent 07/04/23 00:40 22 07/04/23 00:40 92 H 22 172/97 H 98 Mechanical Vent 07/04/23 00:36 87 20 99 07/04/23 00:35 95 H 22 176/100 H 99 Mechanical Vent 07/04/23 00:30 98 H 22 175/101 H 98 Mechanical Vent 07/04/23 00:25 100 H 22 176/99 H 98 Mechanical Vent 07/04/23 00:23 101 H 22 179/101 H 95 Mechanical Vent 07/04/23 00:13 102 H 20 178/95 H 99 Mechanical Vent 07/04/23 00:05 97 H 20 165/93 H 98 Mechanical Vent 07/04/23 00:00 96 H 20 161/89 H Mechanical Vent 07/03/23 23:50 100 H 20 144/86 H Mechanical Vent 07/03/23 23:45 108 H 20 138/87 Mechanical Vent 07/03/23 23:40 111 H 20 168/97 H 100 Ambu-Bag 07/03/23 23:35 95 H 20 188/96 H 100 Ambu-Bag 15 07/03/23 23:34 87 07/03/23 23:31 87 18 194/96 H 100 Ambu-Bag FiO2 07/04/23 01:54 40 07/04/23 01:15 40 07/04/23 01:00 40 07/04/23 00:48 07/04/23 00:40 07/04/23 00:40 07/04/23 00:36 60 07/04/23 00:35 07/04/23 00:30 07/04/23 00:25 07/04/23 00:23 07/04/23 00:13 07/04/23 00:05 07/04/23 00:00 07/03/23 23:50 07/03/23 23:45 07/03/23 23:40 07/03/23 23:35 07/03/23 23:34 07/03/23 23:31 Coding Level of Care Code 81613 CRITICAL CARE 1ST 30-74M Diagnoses Acute on chronic respiratory failure with hypoxia and hypercapnia J96.21; J96.22 Acute pulmonary edema J81.0 COPD (chronic obstructive pulmonary disease) J44.1 COPD type: COPD with acute exacerbation End stage renal disease N18.6 Aortic stenosis I35.0 HTN (hypertension) I10 CKD (chronic kidney disease), stage V N18.5 Prostate cancer C61 (3) COPD (chronic obstructive pulmonary disease) COPD type: COPD with acute exacerbation Qualified Code(s): J44.1 - Chronic obstructive pulmonary disease with (acute) exacerbation
[2023-07-04 04:29] LABS: Adenovirus PCR Not Detected (NotDetected); Bordetella parapertussis PCR Not Detected (NotDetected); Bordetella pertussis PCR Not Detected (NotDetected); Chlamydia pneumoniae PCR Not Detected (NotDetected); Coronavirus 229E PCR Not Detected (NotDetected); Coronavirus CoV-2 (COVID19)PCR Not Detected (NotDetected); Coronavirus HKU1 PCR Not Detected (NotDetected); Coronavirus NL63 PCR Not Detected (NotDetected); Coronavirus OC43PCR Not Detected (NotDetected); Human Metapneumovirus PCR Not Detected (NotDetected); Influenza A PCR Not Detected (NotDetected); Influenza B PCR Not Detected (NotDetected); Mycoplasma pneumoniae PCR Not Detected (NotDetected); Parainfluenza Virus 1 PCR Not Detected (NotDetected); Parainfluenza Virus 2 PCR Not Detected (NotDetected); Parainfluenza Virus 3 PCR Not Detected (NotDetected); Parainfluenza Virus 4 PCR Not Detected (NotDetected); Respiratory Syncytial VirusPCR Not Detected (NotDetected); Rhinovirus/Enterovirus PCR Not Detected (NotDetected)
[2023-07-04 04:41] LABS: Basophils # (auto) 0.02 K/uL (0.00-0.20); Basophils % (auto) 0.2 %; Hematocrit (blood only) 22.4 % (42.0-52.0); Hemoglobin 7.2 g/dl (14.0-18.0); Immature Granulocytes # (auto) 0.04 K/uL (0.01-0.20); Immature Granulocytes % (auto) 0.4 %; Lymphocytes # (auto) 0.62 K/uL (1.20-3.40); Lymphocytes % (auto) 6.8 %; Mean Corpuscular Hemoglobin 32.4 pg (25.0-34.0); Mean Corpuscular Hgb Conc 32.1 g/dL (32.0-36.0); Mean Corpuscular Volume 100.9 fL (80.0-100.0); Monocytes # (auto) 0.66 K/uL (0.11-0.59); Monocytes % (auto) 7.2 %; Neutrophils # (auto) 7.79 K/uL (1.40-6.50); Neutrophils % (auto) 85.4 %; Platelet Count 155 K/uL (130-400); RDW Coefficient of Variation 14.3 % (11.5-14.5); RDW Standard Deviation 51.6 fL (36.4-46.3); Red Blood Count 2.22 M/uL (4.70-6.10); White Blood Count 9.13 K/ul (4.8-10.8)
[2023-07-04 04:48] LABS: iSTAT Allen Test Pass; iSTAT Art Bld Gas pCO2 Correct 39 mmHg (35-46); iSTAT Art Bld Gas pH Corrected 7.407 (7.35-7.45); iSTAT Arterial Blood Gas HCO3 25 meg/L (19-24); iSTAT Arterial Blood Gas pCO2 43 mmHg (35-46); iSTAT Arterial Blood Gas pH 7.38 (7.35-7.45); iSTAT Arterial Blood Gas pO2 77 mmHg (80-95); iSTAT Arterial Blood Gas pO2 C 68; iSTAT Carbon Dioxide 27 mmol/L (24-31); iSTAT FiO2 40 %; iSTAT Hematocrit 19 % (42-52); iSTAT Hemoglobin 6.5 g/dl (14.0-18.0); iSTAT Potassium 4.6 mmol/L (3.3-5.0); iSTAT Site R Radial; iSTAT Sodium 138 mmol/L (135-144)
[2023-07-04 05:04] LABS: Hypochromasia Present
[2023-07-04] MEDS: HEPARIN SOD 5,000 UNIT/0.5 ML VIAL SQ SCH (05:09)
[2023-07-04 05:57] LABS: BUN Creatinine Ratio 8.8 (10-20); Calcium 8.7 mg/dl (8.6-10.3); Creatinine Clr Calc Pharmacy 8.4 ml/min; Est GFR (African American) 8.8 ml/min; Est GFR (Non-African American) 7.6 ml/min; Potassium 4.7 mmol/L (3.5-5.1); Troponin I High Sensitivity 62.4 pg/ml (0-20)
--- NOTE | 2023-07-04 06:56 | XRay Report ---
XR chest 1V portable HISTORY: Endotracheal tube placement. COMPARISON: Chest 07/03/2023. FINDINGS: Endotracheal tube terminates 2.5 cm from the terrell. No pneumothorax. The heart remains enl arged. Small right pleural effusion and right basilar densities persist. There is aggressive intersti tial/vascular thickening consistent with pulmonary edema. IMPRESSION: 1. Endotracheal tube terminates 2.5 cm from the terrell. 2. Progressive pulmonary edema. 3. Small right pleural effusion and right basilar densities persist. ACT 112: Negative or not required by law. Electronically signed by: Carlos Jean-Baptiste M.D. 07/04/2023 6:54 AM
[2023-07-04] MEDS: CALCIUM ACETATE 667 MG CAP/TAB PO SCH (07:27)
[2023-07-04] MEDS: NEPHROCAPS PO SCH (07:27)
[2023-07-04] MEDS: UMECLIDINIUM BROMIDE 62.5MCG/BLISTER 7 PUFFS/INHALER INH SCH (07:29)
--- NOTE | 2023-07-04 08:10 | Nephrology Consultation ---
Date of Consultation July 04, 2023 Assessment & Plan (1) Acute pulmonary edema: volume overload in HD > and bleeding; source unclear. >per primary service >w/ bleeding, may not be able to readily extubate and/or leave ICU >monitor for dialysis needs daily Care coordinated w/ Maurice Mendoza regarding dialysis plan, UF target, anemia mgt; we are in agreement. (2) End stage renal disease: today is his routine day. w/ pulmonary edema and respiratory failure needs aggressive UF > goal 2.5 L as bp tolerates. 3.5 hrs; 2k bath. AVF (3) Acute on chronic anemia: cause of acute drop unclear. no report of large fluid infusions overnight; no recent thoracentesis (06/27 procedure was aborted) hgb was 9.5 at [place] and 6.8 this AM. most recent T sat at his facility confirmed by RN is 21%. BP has been labile; he is on CARLO at HD despite prostate CA dx per dialysis clinic at [facility] order. >no heparin in HD >20K units of epo today -transfusions, serial H/H, further eval per primary service History of Present Illness Reason for Consultation: ESRD on HD Requesting Physician: Dr Akhtar Attending Physician: Varun Reyes MD History of Present Illness 78-year-old whom I am asked to evaluate for dialysis needs was admitted overnight to the ICU after being found unresponsive w/ sats in 80s at home yesterday. He was emergently intubated in the ER for acute on chronic respiratory failure with hypoxia and hypercapnia. Past medical history includes ESRD (hemodialysis Monday via AVF), valvular heart disease (moderate mitral stenosis and tricuspid regurgitation on TTE this year), hypertension, pulmonary hypertension, COPD, active tobacco abuse, chronic right pleural effusion requiring intermittent thoracentesis, hypoxemia on nocturnal home O2, hypertension, prostate cancer on Lupron, hydronephrosis with R nephrostomy tube. He was admitted here last month with a pneumothorax complicating a thoracentesis done in [place] on May 30. He treats at the dialysis unit in [place] under the care of Dr. Ramos. He is consistently resistant to/intolerant of fluid removal w/ HD. On review of [facility] records, a thoracentesis was attempted on 06/27 but aborted b/c insufficient fluid target found. He is currently in the ICU on ventilator w/ light sedation. He wakens briefly w/ exam maneuvers when I evaluated him at 0745. he denies pain. ROS limited by ETT. His hgb was 9.3 on presentation but is this am down to 6.8. no obvious bleeding source found. Allergies Allergy/AdvReac Type Severity Reaction Status Date / Time pantoprazole Allergy Severe EDEMA Verified 07/03/23 23:53 FACE/LIPS/TONGUE latex Allergy Unknown ON Verified 07/04/23 00:00 Panasas LIST Home Medications Medication Instructions Recorded Confirmed Type calcium acetate(phosphat bind) 667 1,334 mg PO TIDM 03/02/18 07/03/23 History mg capsule amlodipine 5 mg tablet 5 mg PO QAM 02/17/22 07/03/23 History citalopram 10 mg tablet 10 mg PO HS 02/17/22 07/03/23 History cholecalciferol (vitamin D3) 50 50 mcg PO DAILY 02/18/22 07/03/23 History mcg (2,000 unit) tablet (Vitamin D3) albuterol sulfate 90 mcg/actuation 2 puff inhalation Q4 PRN 06/01/23 07/03/23 History aerosol inhaler (Ventolin HFA) cough,SOB,wheezing leuprolide acetate (6 month) 45 mg 45 mg IM .EVERY 6 MONTHS 06/01/23 07/03/23 History intramuscular syringe kit (Lupron Depot) torsemide 100 mg tablet 100 mg PO QAM 06/01/23 07/03/23 History vitamin B comp no.3-folic acid 1 1 tab PO DAILY 06/01/23 07/03/23 History mg-vit C 60 mg-biotin 300 mcg tablet (Gill-Farzana Rx) lorazepam 0.5 mg tablet 0.5 mg PO Q8H PRN Anxiety 07/03/23 07/03/23 History umeclidinium 62.5 mcg/actuation 1 inh inhalation DAILY 07/03/23 07/03/23 History blister powder for inhalation (Incruse Ellipta) Patient History Medical History COPD (chronic obstructive pulmonary disease) Hypertensive urgency AV fistula left arm Permanent central venous catheter in place Tobacco use Chronic anemia Chronic indwelling Gmaboa catheter Obstruction of nephrostomy tube Admitted for this 11/2017 along with hypertensive urgency HTN (hypertension) Was treated for hypertensive urgency at [facility] 11/2017 Prostate cancer Currently in remission. On Leupron injections. CKD (chronic kidney disease), stage V DIALYSIS 3 X WEEK ELENA PALMA (//SAT) VIA PERMA CATH Bladder stones Urinary retention Hyperkalemia On a K restricted diet Surgical History History of surgery PLACEMENT OF NEPHROSTOMY TUBE Family History Other Breast cancer Lung cancer No pertinent family history Stomach cancer Social History Smoking Status: Current every day smoker Tobacco Type: Cigarettes Cigarettes Per Day: 2 packs a week; Second Hand Exposure: No; Do You Dip or Chew Tobacco: No; Hx Alcohol Use: No Hx Substance Use: No Preferred Language: [place] Communication Ability: Unable Communication Ability Comment: Patient is sedated at this time Visual Impairment: No Limitations Bank Examiner Required: No Beliefs That Will Affect Care: None marital status: Current Living Situation: Spouse Current Living Situation Comment: Home Other Information That Helps Us Care for You: No Feels Safe at Home: Yes Safety Concerns: Feels Safe At This Time Assistive Devices: Denture - Upper, Denture - Lower, Glasses, Hearing Aid - Bilateral, Oxygen - at Night and Oxygen - Continuous Review of Systems 2 Review of Systems: Unobtainable due to endotracheal tube Physical Exam 2 Constitutional: well developed, well nourished, + altered mental status and + frail appearing; no acute distress Eyes: EOM intact bilaterally ENMT: Ears: no external ear abnormality Nose: no external nose abnormality Mouth: + dry oral mucous membranes Neck: no nuchal rigidity Respiratory: normal respiratory effort Auscultation: + diminished lung sounds Cardiovascular: RRR, no murmur, no edema Extremities: + AV fistula (L forearm + t/b) Gastrointestinal (Abdomen): Inspection/Auscultation: abdomen normal to inspection (R nephrostomy line/no reservoir) and normal bowel sounds P ercussion/Palpation: abdomen soft; abdomen nontender Musculoskeletal: Extremities: + abnormal strength (sedated) Skin: no rashes, warm and dry Neurologic: uribe, no tremor Results & Data Vital Signs (Past 12 Hours) Vital Signs Temp Pulse Pulse Resp BP BP Pulse Ox 07/04/23 06:00 36.3 C L 72 24 120/53 L 100 07/04/23 05:00 35.4 C L 66 24 106/50 L 99 07/04/23 04:30 64 24 95/54 L 97 07/04/23 04:00 35.1 C L 61 24 90/45 L 99 07/04/23 04:00 07/04/23 03:30 34.8 C L 64 24 97 07/04/23 03:00 34.8 C L 68 24 104/50 L 96 07/04/23 02:30 76 24 135/59 L 100 07/04/23 02:00 75 24 130/60 93 07/04/23 02:00 07/04/23 02:00 07/04/23 01:54 83 24 93 07/04/23 01:52 34.8 C L 79 24 148/85 H 95 07/04/23 01:46 07/04/23 01:15 82 22 152/87 H 96 07/04/23 01:00 86 22 138/100 96 07/04/23 00:48 91 H 22 166/94 H 99 07/04/23 00:40 22 07/04/23 00:40 92 H 22 172/97 H 98 07/04/23 00:36 87 20 99 07/04/23 00:35 95 H 22 176/100 H 99 07/04/23 00:30 98 H 22 175/101 H 98 07/04/23 00:25 100 H 22 176/99 H 98 07/04/23 00:23 101 H 22 179/101 H 95 07/04/23 00:13 102 H 20 178/95 H 99 07/04/23 00:05 97 H 20 165/93 H 98 07/04/23 00:00 96 H 20 161/89 H 07/03/23 23:50 100 H 20 144/86 H 07/03/23 23:45 108 H 20 138/87 07/03/23 23:40 111 H 20 168/97 H 100 07/03/23 23:35 95 H 20 188/96 H 100 07/03/23 23:34 87 07/03/23 23:31 87 18 194/96 H 100 Pulse Ox O2 Del Method O2 Del Method O2 Flow Rate FiO2 07/04/23 06:00 Mechanical Vent 40 07/04/23 05:00 Mechanical Vent 40 07/04/23 04:30 Mechanical Vent 40 07/04/23 04:00 Mechanical Vent 40 07/04/23 04:00 40 07/04/23 03:30 Mechanical Vent 40 07/04/23 03:00 Mechanical Vent 40 07/04/23 02:30 Mechanical Vent 40 07/04/23 02:00 Mechanical Vent 40 07/04/23 02:00 Mechanical Vent 40 07/04/23 02:00 40 07/04/23 01:54 40 07/04/23 01:52 Mechanical Vent 40 07/04/23 01:46 96 Mechanical Vent 07/04/23 01:15 Mechanical Vent 40 07/04/23 01:00 Mechanical Vent 40 07/04/23 00:48 Mechanical Vent 07/04/23 00:40 07/04/23 00:40 Mechanical Vent 07/04/23 00:36 60 07/04/23 00:35 Mechanical Vent 07/04/23 00:30 Mechanical Vent 07/04/23 00:25 Mechanical Vent 07/04/23 00:23 Mechanical Vent 07/04/23 00:13 Mechanical Vent 07/04/23 00:05 Mechanical Vent 07/04/23 00:00 Mechanical Vent 07/03/23 23:50 Mechanical Vent 07/03/23 23:45 Mechanical Vent 07/03/23 23:40 Ambu-Bag 07/03/23 23:35 Ambu-Bag 15 07/03/23 23:34 07/03/23 23:31 Ambu-Bag Laboratory Results 07/04/23 04:20 07/04/23 04:20 Diagnostic Findings Chest x-ray Pulmonary edema Head CT without acute process
[2023-07-04] MEDS: ICU Protocol for HYPERglycemia SCH (08:23)
[2023-07-04] MEDS: amLODIPine BESYLATE 5 MG TAB NG SCH (08:26)
--- NOTE | 2023-07-04 08:29 | Communication Note ---
Date of Service: July 04, 2023 Patient seen and evaluated at bedside. Overnight report received from RAFAELA colleague. Patient awaiting hemodialysis at the guidance of nephrology. H&H trending down. No signs/symptoms of bleeding otherwise. Blood consent discussed and signed by patient's who was at bedside at this point. We will provide 1 unit PRBC while being transfused. Hopefully patient tolerates dialysis well and we can consider extubation later this afternoon. He is on minimal vent settings at this time and requiring mild sedation to keep him down. Patient was discussed at interdisciplinary rounds. No significant adjustments made to medications or plan of care. Patient's updated at bedside. I have personally spent 25 minutes of critical care time in the direct management of this patient. This is a life/limb threatening event. This includes time spent evaluating patient, direct bedside care, chart review, placing orders, interpretation of diagnostic studies, discussion with consultants, patient, and family members, as well as other required patient management activities. This time is exclusive of all separately billable procedures, and teaching time and separate from and in addition to any other critical care service time.
[2023-07-04] MEDS ORDERED: SODIUM CHLORIDE 0.9% 1,000 ML IV PRN (08:43)
--- NOTE | 2023-07-04 08:55 | XRay Report ---
XR chest 1V portable CLINICAL HISTORY: sob TECHNIQUE: Single frontal radiograph of the chest was obtained. Comparison: Comparison is made to chest radiographs June 06, 2023 FINDINGS: Partial visualization of an abdominal tube. Cardiomegaly is noted. The aortic arch is calcified. Vasc ular prominence and diffuse airspace opacities are seen. Small right pleural effusions are seen. IMPRESSION: Vascular prominence and diffuse airspace opacities may represent alveolar edema with or without super imposed aspiration/pneumonia. ACT 112: Negative or not required by law. Electronically signed by: Pieter Perla M.D. 07/04/2023 8:53 AM
[2023-07-04 09:21] LABS: Hematocrit (blood only) 20.9 % (42.0-52.0); Hemoglobin 6.8 g/dl (14.0-18.0)
[2023-07-04] MEDS ORDERED: SODIUM CHLORIDE 0.9% 250 ML IV PRN (09:29)
[2023-07-04] MEDS: EPOETIN ALFA 20,000 UNITS/ML VIAL IV ONE (10:11)
[2023-07-04] MEDS: PROPOFOL BOLUS FROM BAG IV PRN (10:24)
[2023-07-04] MEDS ORDERED: ETOMIDATE 2 MG/ML 20 ML VIAL IV ONE (10:44)
[2023-07-04] MEDS ORDERED: ROCURONIUM BROMIDE 10 MG/ML 5 ML VIAL IV ONE (10:44)
[2023-07-04 12:23] LABS: Appearance Urine Turbid (Clear); Bacteria Urine Automated 2+ (None Seen); Bilirubin Urine Negative (Negative); Blood Urine 2+ (Negative); Color Urine Yellow; Glucose Urine UA Negative (Negative); Ketones Urine Negative (Negative); Leukocyte Esterase Urine 3+ (Negative); Nitrite Urine Negative (Negative); Protein Urine 3+ (Negative); Specific Gravity Urine 1.012 (1.000-1.030); Urobilinogen Urine Negative (Negative); WBC Urine Automated >50 /hpf (0-5); pH Urine 8.5 (4.5-7.5)
[2023-07-04] MEDS: FAMOTIDINE 20MG IV PUSH 20 MG/5 ML SYR IV SCH (13:16)
[2023-07-04 15:39] LABS: Hematocrit (blood only) 27.3 % (42.0-52.0); Hemoglobin 8.7 g/dl (14.0-18.0)
--- NOTE | 2023-07-04 15:52 | Communication Note ---
Date of Service: July 04, 2023 Patient is seen and examined at bedside. Was getting hemodialysis and blood transfusion this morning during my encounter. No obvious bleeding issues. No distress on exam. Currently intubated and sedated. Discussed with ICU team. Coarse breath sounds, pedal edema noted on exam. Chart reviewed. Hemoglobin posttransfusion 8.7. ICU team to consider extubation post hemodialysis. Monitor H&H and transfuse as needed.Noted abnormal urine analysis, urine culture pending. Blood cultures pending as well.Patient recently treated with ciprofloxacin for Pseudomonas UTI. Will consider to restart antibiotics if needed. Continue to manage in ICU for now.
--- NOTE | 2023-07-04 17:21 | Dialysis Progress Note ---
Date of Service July 04, 2023 Assessment & Plan (1) End stage renal disease: Plan: today is his routine day. w/ pulmonary edema and respiratory failure needs aggressive UF > goal 2.5 L as bp tolerates. 3.5 hrs; 2k bath. AVF >>ultimately cut goal back to 2L which he tolerated >>will reeval in am for need for further txs as indicated, particularly w/ unclear source of blood loss (2) Acute pulmonary edema: Plan: volume overload in HD > and bleeding; source unclear. >per primary service >w/ bleeding, may not be able to readily extubate and/or leave ICU >monitor for dialysis needs daily (3) Acute on chronic anemia: Plan: cause of acute drop unclear. no report of large fluid infusions overnight; no recent thoracentesis (06/27 procedure was aborted) hgb was 9.5 at [facility] and 6.8 this AM >> 8.7 post treatemnt. most recent T sat at his facility confirmed by RN is 21%. BP improved since finishing HD; he is on CARLO at HD despite prostate CA dx per dialysis clinic at [facility]. >no heparin in HD >20K units of epo today -transfusions, serial H/H, further eval per primary service Admission and Anticipated Discharge Date Admission Date: July 04, 2023 Subjective seen at about 1130 on dialysis treatment; had to drop uf target b/c of hypotension; pt for pRBC on tx Review of Systems Review of Systems: Unobtainable due to endotracheal tube Physical Exam Constitutional: well developed, well nourished, + altered mental status and + frail appearing; no acute distress Eyes: EOM intact bilaterally ENMT: Ears: no external ear abnormality Nose: no external nose abnormality Mouth: + dry oral mucous membranes Neck: no nuchal rigidity Respiratory: normal respiratory effort Auscultation: + diminished lung sounds Cardiovascular: RRR, no murmur, no edema Extremities: + AV fistula (L forearm + t/b) Gastrointestinal (Abdomen): Inspection/Auscultation: abdomen normal to inspection (R nephrostomy line/no reservoir) and normal bowel sounds Percussion/Palpation: abdomen soft; abdomen nontender Musculoskeletal: Extremities: + abnormal strength (sedated) Skin: no rashes, warm and dry Results & Data Vital Signs (Past 12 Hours) Vital Signs Temp Pulse Pulse Resp BP BP BP 07/04/23 16:01 136/65 07/04/23 16:01 37.4 C 70 24 07/04/23 16:00 37.4 C 71 24 07/04/23 16:00 07/04/23 15:05 71 24 07/04/23 15:01 162/69 H 07/04/23 15:01 37.1 C 72 21 07/04/23 15:00 37.1 C 71 24 07/04/23 14:01 119/65 07/04/23 14:01 36.9 C 67 21 07/04/23 14:00 36.9 C 71 24 07/04/23 13:25 36.8 C 68 134/65 07/04/23 13:00 36.7 C 65 110/61 07/04/23 12:30 36.7 C 69 134/67 07/04/23 12:15 36.8 C 69 125/67 07/04/23 12:15 36.8 C 69 28 H 125/67 07/04/23 12:00 36.8 C 66 110/57 L 07/04/23 12:00 07/04/23 12:00 36.8 C 68 26 H 110/57 L 07/04/23 11:45 36.8 C 68 105/56 L 07/04/23 11:45 36.8 C 68 25 H 105/56 L 07/04/23 11:32 36.8 C 69 28 H 101/52 L 07/04/23 11:30 36.8 C 69 101/52 L 07/04/23 11:25 65 28 H 07/04/23 11:00 66 107/50 L 07/04/23 10:30 69 102/54 L 07/04/23 10:00 69 122/69 07/04/23 09:40 70 117/58 L 07/04/23 09:15 37.2 C 73 07/04/23 08:00 07/04/23 08:00 07/04/23 07:23 73 27 H 07/04/23 06:00 36.3 C L 72 24 120/53 L Pulse Ox O2 Del Method FiO2 07/04/23 16:01 07/04/23 16:01 96 07/04/23 16:00 95 07/04/23 16:00 30 07/04/23 15:05 97 30 07/04/23 15:01 07/04/23 15:01 97 07/04/23 15:00 97 07/04/23 14:01 07/04/23 14:01 97 07/04/23 14:00 98 07/04/23 13:25 07/04/23 13:00 07/04/23 12:30 07/04/23 12:15 07/04/23 12:15 98 07/04/23 12:00 07/04/23 12:00 30 07/04/23 12:00 98 07/04/23 11:45 07/04/23 11:45 98 07/04/23 11:32 98 07/04/23 11:30 07/04/23 11:25 100 30 07/04/23 11:00 07/04/23 10:30 07/04/23 10:00 07/04/23 09:40 07/04/23 09:15 07/04/23 08:00 Mechanical Vent 35 07/04/23 08:00 35 07/04/23 07:23 100 40 07/04/23 06:00 100 Mechanical Vent 40
--- OUTSIDE RECORDS SUMMARY | 2023-07-04 19:09 | External Medical Summary | Summary of Care ---
Author Name Unknown Organization [facility] Address [address] [facility] [place] [address] Phone [phone] Care Team Providers Care Medical Record Librarians Teacher Name Role Phone Edgar Gibbs MD Primary Care P rovider Encounter Details Date Type Department Care Team (Late st Contact Info) Description 06/27/2023 Result Scan Unspecified Department <No scans attached> Allergies Active Allergy Reactions Criticality Noted Date Comments Latex 07/19/2019 Pantoprazole Sodium Edema face/lips/tongue High 04/0 02/2014 documented as of this encounter (statuses as of 07/03/2023) Medications Medication Sig Dispensed Refills Start Date [...] MCG/ACT Inhalation Aerosol Powder Breath Activated (umeclidinium [place])Indications:C hronic obstructive pulmonary disease, unspecified COPD type ([facility]) Inhale 1 Puff by mouth in the morning. 30 Each 11 03/02/2022 Active Nephro-Farzana 0.8 MG Oral Tablet TAKE [...] as of this encounter (statuses as of 07/03/2023) Active Problems Problem Noted Date Diagnosed Date Nonrheumatic aortic valve stenosis 06/16/2023 Supplemental oxygen dependent 06/16/2023 COPD, group C, by GOLD 2017 classification [...] as of this encounter (statuses as of 07/03/2023) Resolved Problems Problem Noted Date Diagnosed Date [...] as of this encounter (statuses as of 07/03/2023) Immunizations Name Administration Dates Next Due COVID-19 mRNA, LNP-s, No Pre serve, 2-Dose Series (tipple.me) 01/19/2021,06/10/2020,05/20/2020 HEP B - Hepatitis B (Dialysis/Immumocomp Pt) 12/20/2018,07/21/2018,06/19/2018 PPD 05/03/2018 Pneumococcal Conjugate Vacci ne, 20-valent ([id number]) 03/16/2022 Pneumococcal Polysaccharide PPV23 (Pneumovax) 12/28/2017 Seasonal [...] Day Cigarettes 0.3 60 Smokeless Tobacco: Never Comments:5 cpd smoker 4. Alcohol Use Standard Drinks/Week Comments No 0 (1 standard drink = 0.6 oz pur e alcohol) PHQ-2 Answer Date Recorded PHQ Adult Total Score 0 06/16/2023 Hunger Vital Sign Answer Date Recorded Within the past 12 months, y ou worried that your food would run out before you got the money to buy more. Patient declined Within the past 12 months, t he food you bought just didn't last and you didn't have money to get more. Patient declined Sex and Gender Information Value Date Recorded [...] Care Team (Late st Contact Info) Description 07/19/2023 11:00 AM EDT Hospital Encounter Interventional Radiology [facility], [facility] 1st Floor [address] [place] [address] 09/13/2023 12:20 PM EDT Office Visit Pulmonary Medicine, [facility] [address] [facility] [place] [address] Tino Stapleton MD [address] [place] [facility] [place] [address] 09/18/2023 9:00 AM EDT Laboratory [facility] [phone] [address] 09/25/2023 11:00 AM EDT Office Visit [facility] [address] [place] [phone] Edgar Gibbs MD [address], [place] [phone] 10/25/2023 3:15 PM EDT Office Visit Urology, [facility] [address] [facility] [place] [address] Travon Canales MD [address] [facility] [address] [place] [address] 12/06/2023 1:40 PM EDT Office Visit Pulmonary Medicine, [facility] [address] [facility] [place] [address] Tino Stapleton MD [address] [facility] [place] [address] 12/13/2023 2:00 PM EDT Office Visit Cardiology, [facility] [address] [facility] [place] [address] Gris Alford CRNP [address] [facility] [place] [address] 02/26/2024 9:30 AM EST Cardiac Studies Cardiac Studies, [facility] [address] [facility] [place] [address] Health Maintenance Due Date Last Done Comments Alpha-1 Antitrypsin 05/18/1961 *COPD SEVERITY VERIFIED BY PFT 03/05/2022 COVID-19 Vaccine ( season) 2022 01/19/2021, 06/10/2020, 05/20/2020 DISCUSS TOBACCO CESSATION (REFER TO SMARTSET #3291) 06/04/2023 06/03/2022 Depression Screening 06/15/2024 06/16/2023 O2 ASSESSMENT COMPLETED IN PAST YEAR FOR COPD 06/27/2024 06/28/2023 DTaP,Tdap,and Td Vaccines (2 - Td or [...] Date/Time Associated Diagnosis Comments OUTSIDE LAB RESULTS 06/27/2023 documented in this encounter Results * OUTSIDE LAB RESULTS (06/27/2023) 06/27/2023 No Physician Data Unknown LABORATORY documented in this encounter Advance Directives Latest Code Status on File Code Status Date Activated Date Inactivated Comments Full Code 04/15/2015 4:40 PM 04/16/2015 5:24 PM This order reflects the patients wishes and were consensually agreed upon. Care Teams Medical Record Librarians Teacher Relationship Specialty Start Date End Date Edgar Gibbs MD [address] [place] [address] [phone] PCP - General Family Medicine 07/03/20 documented as of this encounter
--- OUTSIDE RECORDS SUMMARY | 2023-07-04 19:10 | External Medical Summary | Summary of Care ---
Author Name Unknown Organization [facility] Address [address] [place] [address] Phone [phone] Care Team Providers Care Stationary Boiler Fireman Name Role Phone Edgar Gibbs MD Primary Care P rovider Reason for Visit * Precert (Within 10 days (routine)) - Authorized Specialty Diagnoses / Procedures Referred By Contac t Referred To Contact Radiology Diagnoses Pleural effusion, not elsewhere classified Procedures UT THORACENTESIS NEEDLE/CATH PLEURA W/IMAGING Sally Alvarez PA-C [address] [place] [address] Referral ID Status Reason Start Date Expiration Date V isits Requested Visits Authorized [id number] Authorized Precert 06/22/2023 03/17/[id number] Encounter Details Date Type Department Care Team (Latest Contact Info) Description 06/28/2023 10:33 AM EDT - 06/28/2023 11:34 AM EDT Hospital Encounter Radiology Waiting Room [facility] 1st Floor [address] [facility] [place] [address] Abiodun Rhodes MD [address] [place] [address] Arrived Discharge Disposition: Home - Self Care Allergies Active Allergy Reactions Criticality Noted Date Comments Latex 07/19/2019 Pantoprazole Sodium Edema face/lips/tongue High 04/0 02/2014 documented as of this encounter (statuses as of 06/28/2023) Medications Medication Sig Dispensed Refills Start Date [...] Acetate (3 Month) 22.5 MG Subcutaneous Kit (Food Evolution) Inject 22.5 mg under the skin. Every 3 months 0 11/18/2020 Active Incruse Ellipta 62.5 MCG/ACT Inhalation Aerosol Powder Breath Activated (umeclidinium [place])Indications:C hronic obstructive pulmonary disease, unspecified COPD type ([facility]) Inhale 1 Puff by mouth in the morning. 30 Each 11 03/02/2022 Active Nephro-Farzana 0.8 MG Oral Tablet TAKE ONE TABLET BY MOUTH ONCE DAILY 90 Tablet 3 11/22/2022 Active Ventolin HFA 108 (90 Base) MCG/ACT Inhalation Aerosol SolutionIndications:C OPD exacerbation ([facility]) INHALE TWO PUFFS BY MOUTH EVERY [...] as of this encounter (statuses as of 06/28/2023) Active Problems Problem Noted Date Diagnosed Date [...] as of this encounter (statuses as of 06/28/2023) Resolved Problems Problem Noted Date Diagnosed Date [...] as of this encounter (statuses as of 06/28/2023) Immunizations Name Administration Dates Next Due COVID-19 mRNA, LNP-s, No Pre serve, 2-Dose Series (Pfizer) 01/19/2021,06/10/2020,05/20/2020 HEP B - Hepatitis B (Dialysis/Immumocomp Pt) 12/20/2018,07/21/2018,06/19/2018 PPD 05/03/2018 Pneumococcal Conjugate Vacci ne, 20-valent ([id number]) 03/16/2022 Pneumococcal Polysaccharide PPV23 (Pneumovax) 12/28/2017 Seasonal [...] Sign Reading Time Taken Comments Blood Pressure 149/76 06/28/2023 11:07 AM EDT Pulse 88 06/28/2023 11:07 AM EDT Temperature 36.7 C (98.1 F) 06/28/2023 11:00 AM E DT Respiratory Rate 27 06/28/2023 11:07 AM EDT Oxygen Saturation 97% 06/28/2023 11:07 AM EDT Inhaled Oxygen Concentration - - [...] as of this encounter Nursing Notes * Domonique Fuentes RN - 06/28/2023 11:10 AM EDT residential aide note Insufficient fluid seen on US. No thoracentesis performed today. documented in this encounter Miscellaneous Notes * Progress Notes - Non-Billable - Geeta Rai CRNP - 06/28/2023 11:17 AM EDT PROCEDURE NOTE - Interventional Radiology [facility] [address] [facility] [address] Name: Matthew Rowe Location: RADIOLOGY WAITING ROOM/IR Date: 06/28/2023 Time: 11:18 AM PROCEDURE: US-guided thoracentesis DRAW PRESS OPERATOR: Geeta HINSON ASSISTANTS: RT Sina FINDINGS: Minimal fluid noted on bedside US, thoracentesis aborted. documented in this encounter Plan of Treatment Upcoming Encounters Date Type Department Care Team (Late st Contact Info) Description 07/19/2023 11:00 AM EDT Hospital Encounter Interventional Radiology [facility] 1st Floor [address] [place] [address] 09/13/2023 12:20 PM EDT Office Visit Pulmonary Medicine, [facility] [address] [facility] [place] [address] Tino Stapleton MD [facility] [place] [address] 09/18/2023 9:00 AM EDT Laboratory Laboratory Patient Service [address] [phone] [facility] [address] [address] 09/25/2023 11:00 AM EDT Office Visit [facility] [address] [place] [phone] Edgar Gibbs MD [address] [place] [address] 10/25/2023 3:15 PM EDT Office Visit Urology, [facility] [address] [facility] [place] [address] Travon Canales MD [address] [place] [address] [place] [address] 12/06/2023 1:40 PM EDT Office Visit Pulmonary Medicine, [facility] [address] [facility] [place] [address] Tino Stapleton MD [address] [place] [address] 12/13/2023 2:00 PM EDT Office [facility] [place] [address] Gris Alford CRNP [facility] [place] [address] 02/26/2024 9:30 AM EST Cardiac Studies Cardiac Studies, [facility] [address] [facility] [place] [address] Pending Results Name Type Priority Associated Diagnoses Date/Time IR CHEST THORACENTESIS Medical Imaging Routine Pleural effusion, right 06/28/2023 11:19 AM EDT Health Maintenance Due Date Last [...] Associated Diagnosis Comments IR CHEST THORACENTESIS Routine 06/28/2023 11:19 AM EDT Pleural effusion, right Procedure Note - Abiodun Rhodes MD / Geeta Rai CRNP - 06/28/2023 11:19 AM EDTThis note is in progress. PROCEDURE: Right thoracentesis INDICATION: 78 year old male with recurrent pleural effusion and worseningtransient SOB in need of thoracentesis. OPERATING PROVIDER: SRAVAN Flores SUPERVISING PHYSICIAN: Dr. Matt [facility] RESIDENT (OPERATING PHYSICIAN): N/A SUPPORTING PROVIDER (RELOCATION SERVICES SPECIALIST): RT Sina CONSENT: After a detailed discussion of the procedure, risks, benefits andalternative treatment options, informed consent was obtained. PROCEDURE DESCRIPTION: A survey ultrasound exam of the right posteriorthorax was performed in an attempt to local a safe window forthoracentesis. US reveals small, loculated pleural effusion. The procedure was performed under the personal supervision of Dr. Rhodeswho was immediately available for the entire procedure. FINDINGS: Small, loculated right pleural effusion was noted on ultrasound. IMPRESSION IMPRESSION: Aborted thoracentesis. PLAN: Follow-up as needed for repeat thoracentesis for symptommanagement. documented in this encounter Visit Diagnoses Diagnosis Pleural effusion, right Unspecified pleural effusion documented in this encounter Advance Directives Latest Code Status on File Code Status Date Activated Date Inactivated Comments Full Code 04/15/2015 4:40 PM 04/16/2015 5:24 PM This order reflects the patients wishes and were consensually agreed upon. Care Teams Stationary Boiler Fireman Relationship Specialty Start Date End Date Egdar Gibbs MD [address] [place] [address] [phone] PCP - General Family Medicine 07/03/20 documented as of this encounter
--- OUTSIDE RECORDS SUMMARY | 2023-07-04 19:10 | External Medical Summary | Summary of Care ---
Author Name Unknown Organization [facility] Address [address] [facility] [place] [address] Phone [phone] Care Team Providers Care Hand Candy Molder Name Role Phone Edgar Gibbs MD Primary Care P rovider Reason for Visit * Reason Onset Date Comments Test Results 06/12/2023 6MW Encounter Details Date Type Department Care Team (Late st Contact Info) Description 06/12/2023 Telephone Pulmonary Medicine, [facility] 132 [facility] [place] [id number] Tino Mcdowell MD [address] [facility] [place] [address] Test Results (6MW) Allergies Active Allergy Reactions Criticality Noted Date Comments Latex 07/19/2019 Pantoprazole Sodium Edema face/lips/tongue High 04/0 02/2014 documented as of this encounter (statuses as of 06/13/2023) Medications Medication Sig Dispensed Refills Start Date End Date Status Cholecalciferol 2000 units Capsule Take 1 Capsule by mouth in the morning. 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 Every 3 months 0 11/18/2020 Active Incruse Ellipta 62.5 MCG/ACT Inhalation Aerosol Powder Breath Activated (umeclidinium [place])Indications: Chronic obstructive pulmonary disease, unspecified COPD type [...] as of this encounter (statuses as of 06/13/2023) Active Problems Problem Noted Date Diagnosed Date [...] as of this encounter (statuses as of 06/13/2023) Resolved Problems Problem Noted Date Diagnosed Date [...] as of this encounter (statuses as of 06/13/2023) Immunizations Name Administration Dates Next Due COVID-19 mRNA, LNP-s, No Pre serve, 2-Dose Series ([employer]) 01/19/2021,06/10/2020,05/20/2020 HEP B - Hepatitis B (Dialysis/Immumocomp Pt) 12/20/2018,07/21/2018,06/19/2018 PPD 05/03/2018 Pneumococcal Conjugate Vacci ne, 20-valent ([id number]) 03/16/2022 Pneumococcal Polysaccharide PPV23 (Pneumovax) 12/28/2017 Seasonal [...] encounter Miscellaneous Notes * Telephone Encounter - Kelsea Alexis LPN - 06/13/2023 9:23 AM EDT The pt is already on oxygen, but not sure if it's nocturnal or with exertion also. LM asking pt to call back to confirm. * Addendum Note - Tino Mcdowell MD - 06/13/2023 8:55 AM EDTAddended by: TINO MCDOWELL on: 06/13/2023 08:55 AM Modules accepted: Orders * Telephone Encounter - Tino Mcdowell MD - 06/13/2023 8:53 AM EDT I will change the order to regular oxygen. * Telephone Encounter - Kelsea Alexis LPN - 06/13/2023 8:23 AM EDT We can't order a POC unless he has testing specifically for a conserving device. He had a 6mw, not the testing for the POC. * Telephone Encounter - Tino Mcdowell MD - 06/12/2023 4:43 PM EDT 2 L nasal cannula oxygen, POC with conserving device ordered for use during activity. documented in this encounter Plan of Treatment Upcoming Encounters Date Type Department Care Team (Late st Contact Info) Description 06/14/2023 2:00 PM EDT Office Visit Pulmonary Medicine, [facility] [address] [facility] [place] [address] Tino Mcdowell MD [address] [place] [address] 06/16/2023 11:30 AM EDT Office Visit [facility] [address] [place] [address] Edgar Gibbs MD [address] [place] [address] 06/26/2023 11:30 AM EDT PulmDiagnostic Pulmonary Function Lab, [facility] [address] [facility] [place] [address] [place], Pulm Function Tech 2 [address] [facility] [place] [address] 07/19/2023 11:00 AM EDT Appointment Interventional Radiology [facility] 1st Floor [address] [facility] [place] [address] 10/25/2023 3:15 PM EDT Office Visit Urology, [facility] [address] [facility] [place] [address] Travon Canales MD [address] [address] [place] [address] 12/06/2023 1:40 PM EDT Office Visit Pulmonary Medicine, [facility] [address] [facility] [place] [address] Tino Mcdowell MD [address] [place] [address] 12/13/2023 2:00 PM EDT Office Visit Cardiology, [facility] [address] [facility] [place] [address] Gris Alford CRNP 132 [facility] [place] [address] 02/26/2024 9:30 AM EST Cardiac Studies Cardiac Studies, [facility] [address] [facility] [place] [address] Health Maintenance Due Date Last Done Comments Alpha-1 Antitrypsin 05/18/1963 *COPD SEVERITY VERIFIED BY PFT 03/05/2022 COVID-19 Vaccine ( season) 2022 01/19/2021, 06/10/2020, 05/20/2020 DISCUSS TOBACCO CESSATION (REFER TO SMARTSET #[id number]) 06/04/2023 06/03/2022 Depression Screening 06/04/2023 06/03/2022 O2 [...] and were consensually agreed upon. Care Teams Hand Candy Molder Relationship Specialty Start Date End Date Edgar Gibbs MD [address] [place] [address] PCP - General Family Medicine 07/03/20 documented as of this encounter
--- OUTSIDE RECORDS SUMMARY | 2023-07-04 19:10 | External Medical Summary | Summary of Care ---
Author Name Unknown Organization [facility] Address [address] [facility] [place] [address] Phone [phone] Care Team Providers Care Tractor Trailer Truck Driver Name Role Phone Edgar Gibbs MD Primary Care P rovider Reason for Visit * Reason Onset Date Comments Hospital Follow-Up Hospital Follow-Up 06/16/2023 Encounter Details Date Type Department Care Team (Latest Contact Info) Description 06/16/2023 11:30 AM EDT Office Visit [address] [phone] Edgar Gibbs MD [address] [place] [address] [phone] Hospital discharge follow-up*; Recurrent pleural effusion on right; Postprocedural pneumothorax; 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 ([facility]); COPD, group C, by GOLD 2017 classification ([facility]); Tobacco user; Risk and functional assessment; Nonrheumatic aortic valve stenosis; Prostate cancer ([facility]); Supplemental oxygen dependent Allergies Active Allergy Reactions Criticality Noted Date Comments Latex 07/19/2019 Pantoprazole Sodium Edema face/lips/tongue High 04/0 02/2014 documented as of this encounter (statuses as of 06/16/2023) Medications Medication Sig Dispensed Refills Start Date [...] MCG/ACT Inhalation Aerosol Powder Breath Activated (umeclidinium [place])Indications:C hronic obstructive pulmonary disease, unspecified COPD type [...] as of this encounter (statuses as of 06/16/2023) Active Problems Problem Noted Date Diagnosed Date [...] as of this encounter (statuses as of 06/16/2023) Resolved Problems Problem Noted Date Diagnosed Date [...] MELODY (acute kidney injury) 05/06/2014 Hypertension, essential 040 08/2015 Use of leuprolide acetate (Lupron) 12/27/2016 documented as of this encounter (statuses as of 06/16/2023) Immunizations Name Administration Dates Next Due COVID-19 mRNA, LNP-s, No Pre serve, 2-Dose Series (Pfizer) 01/19/2021,06/10/2020,05/20/2020 HEP B - Hepatitis B (Dialysis/Immumocomp Pt) 12/20/2018,07/21/2018,06/19/2018 PPD 05/03/2018 Pneumococcal Conjugate Vacci ne, 20-valent ([id number]) 03/16/2022 Pneumococcal Polysaccharide PPV23 (Pneumovax) 12/28/2017 Seasonal [...] Sign Reading Time Taken Comments Blood Pressure 140/68 06/16/2023 11:43 AM EDT Pulse 72 06/16/2023 11:43 AM EDT Temperature 36.9 C (98.5 F) 06/16/2023 11:43 AM E DT Respiratory Rate 12 06/16/2023 11:43 AM EDT Oxygen Saturation 98% 06/16/2023 11:43 AM EDT Inhaled Oxygen Concentration - - Weight 58.2 kg (128 lb 6.4 oz) 06/16/2023 11:43 AM EDT Height 160 cm (5' 2.99") 06/16/2023 11:43 AM EDT Body Mass Index 22.75 06/16/2023 11:43 AM EDT documented in this encounter Functional [...] this encounter Patient Instructions * Patient Instructions* Stacy Maldonado LPN - 06/16/2023 11:43 AM EDT Patient Instructions - Fall Prevention (This education is for all patients over 65 regardless of symptoms) Remember to take your current medications as prescribed. In order to prevent falls, you are encouraged to: Exercise Utilize assistive/adaptive devices Avoid multifocal lenses when walking Avoid hazards in home Maintain a regular toileting schedule Any questions please contact our office. Preventing Falls in the Home (This education is for all patients over 65 regardless of symptoms) As you get older, falls are more likely. Thats because your reaction time slows. Your muscles and joints may also get stiffer, making them less flexible. Illness, medications, and vision changes can also affect your balance. A fall could leave you unable to live on your own. To make your home safer, follow these tips: Floors Put nonskid pads under area rugs Remove throw rugs Replace worn floor coverings Tack carpets firmly to each step on carpeted stairs. Put nonskid strips on the edges of uncarpeted stairs Keep floors and stairs free of clutter and cords Arrange furniture so there are clear pathways Clean up any spills right away Bathrooms Install grab bars in the tub or shower Apply nonskid strips or put a nonskid rubber mat in the tub or shower Sit on a bath chair to bathe Use bathmats with nonskid backing Lighting Keep a flashlight in each room Put a nightlight along the pathway between the bedroom and the bathroom [employer]va Patient Education Copyright 2008 - 2010 Melva except where otherwise noted Preventing Falls: Exercises to Improve Balance, Flexibility, Strength, and Staying Power (This education is for all patients over 65 regardless of symptoms) Certain types of exercises may help make you less likely to fall. Try the ones below. Or do other exercises that your healthcare provider suggests. Depending on your health, you may need to start slowly. Dont let that stop you. Even small amounts of exercise can help you. Be sure to talk to yourhealthcare provider before starting any exercise program. Improve Balance Many types of exercise can help improve balance. Sukh chi and yoga are good examples. Heres another one to try. You can do it anytime and almost anywhere. Stand next to a counter or solid support. Push yourself up onto your tiptoes. Hold for 5 seconds. If you start to lose your balance, hold on to the counter. Rest and repeat 5 times. Work up to holding for 20 to 30 seconds, if you can. Increase Flexibility Being more flexible makes it easier for you to move around safely. Try exercises like the seated hamstring stretch. Sit in a chair and put one foot on a stool. Straighten your leg and reach with both hands down either side of your leg. Reach as far down your leg as you can. Hold for about 20 seconds. Go back to the starting position. Then repeat 5 times. Switch legs. Build Strength Resistance exercises help build strength. You can do them without equipment. Or you can use weights, elastic bands, or special machines. One such exercise is called the biceps curl. You can hold a 1 pound weight or even a can of soup. Do this exercise at least 3 times a week. Strive for everyday. Sit up straight in a chair. Keep your elbow close to your body and your wrist straight. Bend your arm, moving your hand up to your shoulder. Then slowly lower your arm. Repeat 5 times. Switch to the other arm. Build Your Staying Power Aerobic exercises make your heart and lungs stronger so you can keep moving longer. Walking and swimming are two of the best types of exercises you can do. Using a stationary bike is great, too. Find an aerobic exercise that you enjoy. Start slowly and build up. Even 5 minutes is helpful. Aimfor a goal of 30 minutes, at least 3 times a week. You dont have to do 30 minutes in one session. Break it up and walk a little throughout the day. More Helpful Tips Start easy. Slowly work up to doing more. Talk with your healthcare provider about the best exercises for you. Call senior centers or health clubs about exercise programs. If needed, have a family member watch you walk every so often to check your stability. Exercise with a friend. Choose an activity you both enjoy. Try exercises that you can do anytime, anywhere. Here are two examples. Have someone with you when you first try these: Practice walking by placing one foot right in front of the other. Stand up and sit down 10 times. Repeat this throughout the day. [employer] Patient Education Copyright 2008 - 2010 [employer] except where otherwise noted. Preventing Falls: Moving Safely Using a Cane or Walker (This education is for all patients over 65 regardless of symptoms) Keep the cane away from your feet so you dont trip. A walking aid, such as a cane or walker, can help you stay more independent and avoid falls. Remember to keep your walking aid within easy reach when youre in a chair or in bed. And learn how to use it safely so you dont injure yourself. Using a Cane If you have a stronger side, hold the cane on that side. Get your balance. Move the cane and your weaker leg forward. Support your weight on both the cane and your weaker side. Step with your stronger leg. Start again from step 1. If youre using a folding walker, be sure you know how to lock it open. Check that its locked open before each use. Using a Walker Roll the walker (or lift it, if youre using one without wheels) forward about 12 inches. Step forward with your weaker leg first. Use the walker to help keep your balance. Bring your other foot forward to the center of the walker. Start again from step 1. Helpful Tips Check with your healthcare provider about the right walking aid to use. Ask about a walker with a seat attached. Check the tips of your cane or walker to make sure they have nonskid covers. Move slowly from room to room. Dont young. Sit down to get dressed. Use a karlene pack or backpack to keep your hands free. Get help for jobs that mean climbing, even on a stepstool. Melva Patient Education Copyright 2009 - 2010 Melva except where otherwise noted. Treating Urinary Incontinence in Men (This education is for all patients over 65 regardless of symptoms) You can't always control the release of urine. You may leak urine. Or you may not be able to hold your urine until you can get to a bathroom. This is called urinary incontinence. The problem can be managed. Talk to your doctor about your treatment options. Taking Medications Prescription medications may help you. They may: Help the sphincter to work better. (This is the muscle that closes to keep urine from leaking out of the bladder.) Help stop the bladder from dylan too often to push urine out. Help the bladder muscles contract with more force. Help relax the sphincter muscle and allow urine to flow more freely. Making Changes to Your Routine Certain changes in your daily routine may help. These include: Avoiding caffeine and alcohol. Using timed voiding. This is following a schedule for drinking fluids and urinating. Doing Kegel exercises daily. These exercises involve tightening the muscles in your sphincter and around your bladder to help strengthen them. Your doctor can explain how to do them. Using a Catheter A catheter is a narrow tube that is inserted through the urethra into the bladder. It drains urine.A condom catheter covers the penis. It channels urine into a collection bag. It is worn most of thetime. Intermittent catheterization means inserting a catheter to drain the bladder, then removing it. This is done on a regular schedule. Having Surgery If other options don't work, surgery may be recommended. If surgery is an option, your healthcare provider can discuss it with you and explain its risks and benefits. Healing After Prostate Surgery Surgery on the prostate gland can cause incontinence. Most often, the incontinence is only for a short time. It clears up when healing is complete. Very rarely, prostate surgery can result in permanent incontinence. documented in this encounter Progress Notes * Edgar Gibbs MD - 06/16/2023 11:56 AM EDT SUBJECTIVE: Matthew Rwoe is a 78 year old male. Chief Complaint Patient presents with Hospital Follow-Up Hospital Follow-Up Recent Admission: Patient was recently admitted to [facility] on 06/01/23. The date of discharge was 06/06/23. Discharge reportreceived and reviewed. He had hypoxia and also had right lung collapse after thoracentesis. A chesttube was placed on the right anterior chest. Chest tube was removed prior to discharge. Atenolol was discontinued during his hospitalization due to bradycardia. HPI: At home he is feeling better. Was seen by pulmonology 2 days ago. He is using oxygen 2 L with activity and also oxygen 2 L at bedtime. Not using oxygen at rest. He has been able to stay active. He was able to mow his lawn using the riding mower a few days ago.Denies chest pain shortness of breath. Fatigue has improved. Denies cough or phlegm production. Denies wheezing. Being followed by [facility] and also by [facility]. Taking Torsemide 100 mg daily on days he does not do dialysis. Dialysis is trying to remove as much fluid as possible to help him prevent recurrent pleural effusions. The workup of the x-ray has been benign. Doing dialysis Tuesdays, and Saturdays. Patient is still smokes about 5-6 cigarettes a day. His , who was here with him today, is encouraging him to consider quitting. He has history of prostate cancer, on Lupron. Patient Active Problem List Diagnosis Code Chronic anemia D64.9 HTN, goal below 140/90 I10 Kidney disease, chronic, stage V (GFR under 15 ml/min) ([facility]) N18.5 Prostate cancer ([facility]) C61 Hydronephrosis, right N13.30 Dialysis patient ([facility]) Z99.2 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 ([facility]) I12.0, N18.6, Z99.2 DNR (do not resuscitate) Z66 ESRD (end stage renal disease) on dialysis ([facility]) N18.6, Z99.2 Tobacco user Z72.0 Bladder stones N21.0 Pleural effusion, right J90 COPD, group C, by GOLD 2017 classification ([facility]) J44.9 Nonrheumatic aortic valve stenosis I35.0 Supplemental oxygen dependent Z99.81 Current Outpatient Medications Medication Sig Dispense Refill [...] Acetate (3 Month) 22.5 MG Subcutaneous Kit ([employer]) Inject 22.5 mg under the skin. Every 3 months Incruse Ellipta 62.5 MCG/ACT Inhalation Aerosol Powder Breath Activated (umeclidinium [place]) Inhale 1 Puff by mouth in the morning. 30 Each 11 Nephro-Farzana 0.8 MG Oral Tablet TAKE ONE [...] DAILY IN THE MORNING 90 Tablet 2 Torsemide 100 MG Oral Tablet (Demadex) Take 1 Tablet by mouth in the morning. 90 Tablet 3 Citalopram Hydrobromide 10 MG Oral Tablet (CeleXA) Take 1 Tablet by mouth every night at bedtime. 30 Tablet 5 No current facility-administered medications for this visit. Current and discharge medications have been reconciled. Review of patient's allergies indicates: Allergen Reactions Pantoprazole Sodium Edema face/lips/tongue Latex OBJECTIVE: BP 140/68 (BP Site: Right Arm, BP Position: Sitting, BP Cuff Size: Regular) | Pulse 72 | Temp 36.9 C (98.5 F) (Tympanic) | Resp 12 | Ht 1.6 m (5' 2.99") | Wt 58.2 kg (128 lb 6.4 oz) | SpO2 98% | BMI 22.75 kg/m | BSA 1.61 m REVIEW OF SYSTEMS: PHYSICAL EXAM: BP 140/68 (BP Site: Right Arm, BP Position: Sitting, BP Cuff Size: Regular) | Pulse 72 | Temp 36.9 C (98.5 F) (Tympanic) | Resp 12 | Ht 1.6 m (5' 2.99") | Wt 58.2 kg (128 lb 6.4 oz) | SpO2 98% | BMI 22.75 kg/m | BSA 1.61 m Physical Exam Vitals and nursing note [...] are equal, round, and reactive to light. Cardiovascular: Rate and Rhythm: Normal rate and regular rhythm. Heart sounds: No murmur heard. Pulmonary: Effort: Pulmonary effort is normal. Breath sounds: Normal breath sounds. No wheezing, rhonchi or rales. Comments: Resonant to percussion at both lung bases. Abdominal: General: Bowel sounds are normal. Palpations: [...] Thought content normal. Judgment: Judgment normal. ASSESSMENT: Hospital discharge follow-up (Primary) - DISCH MED RECON CUR MED LIS Recurrent pleural effusion on right Postprocedural pneumothorax 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 ([facility]) COPD, group C, by GOLD 2017 classification ([facility]) Tobacco user Risk and functional assessment Nonrheumatic aortic valve stenosis Prostate cancer ([facility]) Supplemental oxygen dependent Right pleural effusion has improved. He will continue with follow-up with [facility] in 3 months. Question if he will need catheter Placement. Hypertension is well controlled. Continue same medications. Feels better after stopping beta blockade. Continue follow-up with [facility]. Follow Up: Return in about 3 months (around 09/15/2023), or if symptoms worsen or fail to improve, for f/u chronic problems, schedule labs before next OV. | For: f/u chronic problems, schedule labs before next OV I spent a total of 40-54 minutes (exact time 45 mins) minutes on the date of service in preparation, delivery, and documentation of the care provided to Matthew Rowe excluding any time spent in performance of separately billed services. Edgar Gamble MD documented in this encounter Nursing Notes * Stacy Maldonado LPN - 06/16/2023 11:39 AM EDT The patient has been properly identified by confirmation of name and date of . Chief Complaint Patient presents with Hospital Follow-Up Patient is here for a follow up from admitted to [facility]. documented in this encounter Plan of Treatment Upcoming Encounters Date Type Department Care Team (Late st Contact Info) Description 06/26/2023 11:30 AM EDT PulmDiagnostic Pulmonary Function Lab, [facility] [address] [facility] [place] [address] [place], Pulm Function Tech 2 [address] [facility] [place] [address] 07/19/2023 11:00 AM EDT Appointment Interventional Radiology [facility], [facility] 1st Floor [address] [place] [address] 09/13/2023 12:20 PM EDT Office Visit Pulmonary Medicine, [facility] [address] [facility] [place] [address] Tino Stapleton MD [address] [place] [address] 09/18/2023 9:00 AM EDT Laboratory Laboratory Patient Service [address] [phone] [address] [address] 09/25/2023 11:00 AM EDT Office Visit [address] [phone] Edgar Gibbs MD [address] [place] [address] 10/25/2023 3:15 PM EDT Office Visit Urology, [facility] [address] [facility] [place] [address] Travon Canales MD [address] [address] [place] [address] 12/06/2023 1:40 PM EDT Office Visit Pulmonary Medicine, [facility] [address] [facility] [place] [address] Tino Stapleton MD [address] [facility] [place] [address] 12/13/2023 2:00 PM EDT Office Visit Cardiology, [facility] [address] [facility] [place] [address] Gris Alford CRNP [address] [place] [address] 02/26/2024 9:30 AM EST Cardiac Studies Cardiac Studies, [facility] [address] [facility] [place] [address] Health Maintenance Due Date Last Done Comments Alpha-1 Antitrypsin 05/18/1963 *COPD SEVERITY VERIFIED BY PFT 03/05/2022 COVID-19 Vaccine ( season) 2022 01/19/2021, 06/10/2020, 05/20/2020 DISCUSS TOBACCO CESSATION (REFER TO SMARTSET #[id number]) 06/04/2023 06/03/2022 Depression Screening 06/15/2024 06/16/2023 O2 ASSESSMENT COMPLETED IN PAST YEAR FOR COPD 06/15/2024 06/16/2023 DTaP,Tdap,and Td Vaccines (2 - Td or [...] as of this encounter Visit Diagnoses Diagnosis Hospital discharge follow-up- Primary Other follow-up examination Recurrent pleural effusion on right Unspecified pleural effusion Postprocedural pneumothorax Iatrogenic pneumothorax 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 ([facility]) COPD, group C, by GOLD 2017 classification ([facility]) Tobacco user Tobacco use disorder Risk and functional assessment Screening for unspecified condition Nonrheumatic aortic valve stenosis Aortic valve disorders Prostate cancer ([facility]) Malignant neoplasm of prostate Supplemental oxygen dependent Dependence on supplemental oxygen documented in this encounter Advance Directives Latest Code Status on File Code Status Date Activated Date Inactivated Comments Full Code 04/15/2015 4:40 PM 04/16/2015 5:24 PM This order reflects the patients wishes and were consensually agreed upon. Care Teams Tractor Trailer Truck Driver Relationship Specialty Start Date End Date Edgar Gibbs MD [address] [place] [id number] PCP - General Family Medicine 07/03/20 documented as of this encounter
--- OUTSIDE RECORDS SUMMARY | 2023-07-04 19:10 | External Medical Summary | Summary of Care ---
Author Name Unknown Organization [facility] Address [address] [facility] [place] [address] Phone [phone] Care Team Providers Care Nipple Maker Name Role Phone Edgar Gibbs MD Primary Care P rovider Reason for Visit * Reason Onset Date Comments Test Results 06/12/2023 6MW Encounter Details Date Type Department Care Team (Late st Contact Info) Description 06/12/2023 Telephone Pulmonary Medicine, [facility] [address] [facility] [place] [phone] Tino Mcdowell MD [address] [facility] [place] [address] Test Results (6MW) [...] Acetate (3 Month) 22.5 MG Subcutaneous Kit ([employer]) Inject 22.5 mg under the skin. Every 3 months 0 11/18/2020 Active Incruse Ellipta 62.5 MCG/ACT Inhalation Aerosol Powder Breath Activated (umeclidinium [place])Indications: Chronic obstructive pulmonary disease, unspecified COPD type [...] mRNA, LNP-s, No Pre serve, 2-Dose Series ([employer]) 01/19/2021,06/10/2020,05/20/2020 HEP B - Hepatitis B (Dialysis/Immumocomp Pt) 12/20/2018,07/21/2018,06/19/2018 PPD 05/03/2018 Pneumococcal Conjugate Vacci ne, 20-valent ([id number]) 03/16/2022 Pneumococcal Polysaccharide PPV23 (Pneumovax) 12/28/2017 Seasonal [...] Encounter - Kelsea Alexis LPN - 06/13/2023 9:50 AM EDT Pt called back. He has oxygen and is using at night and portable tanks with exertion. * Telephone Encounter - Kelsea Alexis LPN [...] 2:00 PM EDT Office Visit Pulmonary Medicine, [facility] [address] [facility] [place] [address] Tino Mcdowell MD [address] [place] [address] 06/16/2023 11:30 AM EDT Office Visit [address] [phone] Edgar Gibbs MD [address] [place] [address] 06/26/2023 11:30 AM EDT PulmDiagnostic Pulmonary Function Lab, [facility] [address] [place] [address] [place], Pulm Function Tech [address] [place] [address] 07/19/2023 11:00 AM EDT Appointment Interventional Radiology [facility], [facility] 1st Floor [address] [place] [address] 10/25/2023 3:15 PM EDT Office Visit Urology, [facility] [address] [facility] [place] [address] Travon Canales MD [address] [place] [address] 12/06/2023 1:40 PM EDT Office Visit Pulmonary Medicine, [facility] [address] [facility] [place] [address] Tino Mcdowell MD [address] [place] [address] 12/13/2023 2:00 PM EDT Office Visit Cardiology, [facility] 132 [place] [address] Gris Alford CRNP [address] [place] [address] 02/26/2024 9:30 AM EST Cardiac Studies Cardiac Studies, [address] [place] [address] Health Maintenance Due Date Last Done Comments [...] and were consensually agreed upon. Care Teams Nipple Maker Relationship Specialty Start Date End Date Edgar Gibbs MD [address] [place] [address] PCP - General Family Medicine 07/03/20 documented as of this encounter
--- OUTSIDE RECORDS SUMMARY | 2023-07-04 19:10 | External Medical Summary | Summary of Care ---
Author Name Unknown Organization [facility] Address [address] [facility] [place] [address] Phone [phone] Care Team Providers Care Process Mold Technician Name Role Phone Edgar Gibbs MD Primary Care P rovider Encounter Details Date Type Department Care Team (Late st Contact Info) Description 06/13/2023 Result Scan Unspecified Department Pako Ramos MD [address] [facility] [address] <No scans attached> Allergies Active Allergy Reactions Criticality Noted Date Comments Latex 07/19/2019 Pantoprazole Sodium Edema face/lips/tongue High 02/2014 documented as of this encounter (statuses as of 06/19/2023) Medications Medication Sig Dispensed Refills Start Date End Date Status Cholecalciferol 2000 units Capsule Take 1 Capsule by mouth in the morning. 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) ([facility]) take 2 pills 3 x daily 180 Tab 11 10/26/2018 Active Sodium Chloride Flush (NORMAL SALINE FLUSH) 0.9 % SOLN injection FLUSH ONCE DAILY WITH 10ml 300 mL 1 03/12/2019 Active Leuprolide Acetate (3 Month) 22.5 MG Subcutaneous Kit (EliActon Pharmaceuticalsd) Inject 22.5 mg under the skin. Every 3 months 0 11/18/2020 Active Incruse Ellipta 62.5 MCG/ACT Inhalation Aerosol Powder Breath Activated (umeclidinium [place])Indications:C hronic obstructive pulmonary disease, unspecified COPD type [...] as of this encounter (statuses as of 06/19/2023) Active Problems Problem Noted Date Diagnosed Date [...] as of this encounter (statuses as of 06/19/2023) Resolved Problems Problem Noted Date Diagnosed Date [...] as of this encounter (statuses as of 06/19/2023) Immunizations Name Administration Dates Next Due COVID-19 mRNA, LNP-s, No Pre serve, 2-Dose Series (Romotive) 01/19/2021,06/10/2020,05/20/2020 HEP B - Hepatitis B (Dialysis/Immumocomp Pt) 12/20/2018,07/21/2018,06/19/2018 PPD 05/03/2018 Pneumococcal Conjugate Vacci ne, 20-valent ([id number]) 03/16/2022 Pneumococcal Polysaccharide PPV23 (Pneumovax) 12/28/2017 Seasonal [...] 11:30 AM EDT PulmDiagnostic Pulmonary Function Lab, [facility] [address] [facility] [place] [address] [facility] Pulm Function Tech 2 [address] [facility] [place] [address] 07/19/2023 11:00 AM EDT Appointment Interventional [place]iology [facility] 1st Floor [address] [place] [address] 09/13/2023 12:20 PM EDT Office Visit Pulmonary Medicine, [facility] [address] [facility] [place] [address] Tino Stapleton MD [address] [facility] [place] [address] 09/18/2023 9:00 AM EDT [facility] [phone] [facility] [address] [address] 09/25/2023 11:00 AM EDT Office Visit [address] [address] Edgar Gibbs MD [address] [facility] [place] [address] 10/25/2023 3:15 PM EDT Office Visit Urology, [facility] [address] [facility] [place] [address] Travon Canales MD [address] [place] [address] 12/06/2023 1:40 PM EDT Office Visit Pulmonary Medicine, [facility] [address] [facility] [place] [address] Tino Stapleton MD [address] [place] [address] 12/13/2023 2:00 PM EDT Office Visit Cardiology, [facility] 132 [facility] [place] [address] Gris Alford CRNP 132 [facility] [place] [address] 02/26/2024 9:30 AM EST Cardiac Studies Cardiac Studies, [facility] [address] [facility] [place] [address] Health Maintenance Due Date Last Done Comments [...] Date/Time Associated Diagnosis Comments OUTSIDE LAB RESULTS 06/13/2023 documented in this encounter Results * OUTSIDE LAB RESULTS (06/13/2023) 06/13/2023 Pako Ramos MD LABORATORY documented in this encounter Advance Directives Latest Code Status on File Code Status Date Activated Date Inactivated Comments Full Code 04/15/2015 4:40 PM 04/16/2015 5:24 PM This order reflects the patients wishes and were consensually agreed upon. Care Teams Process Mold Technician Relationship Specialty Start Date End Date Edgar Gibbs MD [address] [place] [phone] PCP - General Family Medicine 07/03/20 documented as of this encounter
--- OUTSIDE RECORDS SUMMARY | 2023-07-04 19:10 | External Medical Summary | Summary of Care ---
Author Name Unknown Organization [facility] Address [address] [facility] [place] [address] Phone [phone] Care Team Providers Care Core Analysis Operator Name Role Phone Edgar Gibbs MD Primary Care P rovider Reason for Visit * Reason Comments Follow Up Here [facility] follow up. 06/06/23.- Encounter Details Date Type Department Care Team (Latest Contact Info) Description 06/14/2023 2:00 PM EDT Office Visit Pulmonary Medicine, [facility] [address] [facility] [place] [phone] Tino Stapleton MD [address] [place] [address] COPD, group C, by GOLD 2017 classification ([facility])*; Pleural effusion, right; HTN, goal below 140/90; Kidney disease, chronic, stage V (GFR under 15 ml/min) ([facility]); Prostate cancer ([facility]); 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 ([facility]) Allergies Active Allergy Reactions Criticality Noted Date Comments Latex 07/19/2019 Pantoprazole Sodium Edema face/lips/tongue High 04/0 02/2014 documented as of this encounter (statuses as of 06/14/2023) Medications Medication Sig Dispensed Refills Start Date End Date Status Cholecalciferol 2000 units Capsule Take 1 Capsule by mouth in the morning. 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) ([facility]) take 2 pills 3 x daily 180 Tab 11 10/26/2018 Active Sodium Chloride Flush (NORMAL SALINE FLUSH) 0.9 % SOLN injection FLUSH ONCE DAILY WITH 10ml 300 mL 1 03/12/2019 Active Leuprolide Acetate (3 Month) 22.5 MG Subcutaneous Kit (Eligard) Inject 22.5 mg under the skin. Every 3 months 0 11/18/2020 Active Incruse Ellipta 62.5 MCG/ACT Inhalation Aerosol Powder Breath Activated (umeclidinium [place])Indications:C hronic obstructive pulmonary disease, unspecified COPD type ([facility]) Inhale 1 Puff by mouth in the morning. 30 Each 11 03/02/2022 Active Nephro-Farzana 0.8 MG Oral Tablet TAKE ONE TABLET BY MOUTH ONCE DAILY 90 Tablet 3 11/22/2022 Active Ventolin HFA 108 (90 Base) MCG/ACT Inhalation Aerosol SolutionIndications:C OPD exacerbation ([facility]) INHALE TWO PUFFS BY MOUTH EVERY [...] as of this encounter (statuses as of 06/14/2023) Active Problems Problem Noted Date Diagnosed Date [...] as of this encounter (statuses as of 06/14/2023) Resolved Problems Problem Noted Date Diagnosed Date [...] as of this encounter (statuses as of 06/14/2023) Immunizations Name Administration Dates Next Due COVID-19 mRNA, LNP-s, No Pre serve, 2-Dose Series (Pfizer) 01/19/2021,06/10/2020,05/20/2020 HEP B - Hepatitis B (Dialysis/Immumocomp Pt) 12/20/2018,07/21/2018,06/19/2018 PPD 05/03/2018 Pneumococcal Conjugate Vacci ne, 20-valent ([id number]) 03/16/2022 Pneumococcal Polysaccharide PPV23 (Pneumovax) 12/28/2017 Seasonal [...] Day Cigarettes 0.3 60 Smokeless Tobacco: Never Tobacco Cessation:Ready to Q uit: Not Asked; Counseling Given: Not Answered Comments:5 cpd smoker 06/14/23. Alcohol Use Standard Drinks/Week Comments No 0 [...] Sign Reading Time Taken Comments Blood Pressure 140/62 06/14/2023 2:02 PM EDT Pulse 74 06/14/2023 2:02 PM EDT Temperature 36.3 C (97.4 F) 06/14/2023 2:02 PM ED T Respiratory Rate 16 06/14/2023 2:02 PM EDT Oxygen Saturation 96% 06/14/2023 2:04 PM EDT ra-amb Inhaled Oxygen Concentration - - Weight 59.9 kg (132 lb) 06/14/2023 2:02 PM EDT Height 160 cm (5' 3") 06/14/2023 2:02 PM EDT Body Mass Index 23.38 06/14/2023 2:02 PM EDT documented in this encounter Functional [...] Progress Notes * Tino Stapleton MD - 06/14/2023 1:59 PM EDT 06/14/2023 Pulmonary Medicine, [address] [place] [phone] Matthew Rowe 1945 male 78 year old Attending Physician Documentation: 77-year-old male, 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 Since last evaluation, patient underwent ultrasound-guided thoracentesis at [facility] 05/2023. Postprocedure, patient had episode of shortness of breath at home requiring emergency room visit at [facility] where he was diagnosed with pneumothorax, required chest tube placement and hospitalization for 2 days. Chest tube was eventually removed with stabilization of respiratory status afterwards. At present, Patient describes steady respiratory symptoms status, compliant with Ventolin inhaler, unfortunately continues to smoke half pack daily. Compliant with home oxygen therapy and HD treatments 3 times a week. Current bronchodilator regimen includes rare use of [...] ultrasound and follow-up. We will proceed with 2 month reassessment of right pleural effusion with repeat IR thoracentesis/PleurX catheter placement evaluation. 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 Lymphocytic exudative pleural fluid profile with negative cytopathology for malignancy. Current BD Rx: Ventolin MDI Follow-up: Return in about 3 months (around 09/13/2023). 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 Current BD Rx: Ventolin MDI Plan Follow-up: Return in about 3 months (around 09/13/2023). | Check-out note: : IR eval for reassess need for THX/Pleurx at [facility] 2 months 07/2023 O2 2 L with activity and q.h.s. Periodic chest x-ray monitoring Pulmonary clinic follow-up 3 months Maintain physical activity status Call with change in respiratory symptoms status Tino Stapleton MD Subjective CC: Chief Complaint Patient presents with Follow Up Here [facility] follow up. 06/06/23.- HPI: Nursing Notes: Romelia Clarke LPN 06/14/23 1408 Signed Chief Complaint Patient presents with Follow Up Here [facility] follow up. 06/06/23.- Interm History/Respiratory Symptoms Cough: yes-clear phelgm Hemoptysis: none since discharged from hospital Sinus Symptoms: seasonal Hospitalizations: 05/31-06/05 ED Trips: 05/31- Triggers: dust,perfumes Nocturnal: head elevated at night CPAP/BiPAP/O2: o2 at night 2L 1 hr before bed Flu Vaccine: 2022 Pneumovax: 2018 Prevnar: 2022 COVID 19: x3. Mmrc Cat Question 06/14/2023 2:01 PM EDT - Filed by Romelia Clarke LPN When do you become breathless? (3) I stop for breath after walking about 100 yards or after a few minutes on level ground How frequently do you cough? (4) Do you have phlegm in your chest? (4) Is your chest tight? (0) - My chest does not feel tight at all How breathless do you become when walking up a hill or steps? (3) How limited are you doing activities at home? (3) How confident are you leaving home with your lung condition? (2) How soundly do you sleep? (2) How much energy do you have? (2) Total MMRC Score (range: 0 - 4) 3 Total CAT Score (range: 0 - 40) 20 Objective Filed Vitals: 06/14/23 1402 06/14/23 1404 BP: 140/62 Pulse: 74 Resp: 16 Temp: 36.3 C (97.4 F) TempSrc: Tympanic SpO2: 96% 96% Weight: 59.9 kg (132 lb) Height: 1.6 m (5' 3") Exam: [...] the patient: IR CHEST THORACENTESIS Result Date: 06/01/2023 IMPRESSION: Successful ultrasound-guided right thoracentesis. PLAN: Fluid sent to lab for analysis.Final results pending. Follow-up as needed for repeat thoracentesis for symptom management. XR CHEST 2 VIEWS Result Date: 05/18/2023 IMPRESSION Persistent right pleural effusion. IR GENITORINARY NEPHRO/CYSTO/URETERAL Result Date: 04/19/2023 IMPRESSION: [...] were discussed with the patient. HOME MEDICATIONS: Citalopram Hydrobromide 10 MG Oral Tablet (CeleXA) Torsemide 100 MG Oral Tablet (Demadex) amLODIPine Besylate 5 MG Oral Tablet (Norvasc) LORazepam 0.5 MG Oral Tablet (Ativan) Ventolin HFA 108 (90 Base) MCG/ACT Inhalation Aerosol Solution Nephro-Farzana 0.8 MG Oral Tablet Incruse Ellipta 62.5 MCG/ACT Inhalation Aerosol Powder Breath Activated (umeclidinium [place]) Leuprolide Acetate (3 Month) 22.5 MG Subcutaneous Kit (Eligard) Sodium Chloride Flush (NORMAL SALINE FLUSH) 0.9 % SOLN injection Calcium Acetate, Phos Binder, 667 MG TABS Cholecalciferol 2000 units Capsule ROS: No reported history of Hemoptysis, Hematemesis, Melena No reported history of Dysuria, Hematuria, Flank Pain No reported history of chronic headache, seizures No reported history of Fall or trauma . No reported history of recent change in weight or appetite. Past Medical History: Diagnosis Date Hypertension, essential INFORMATION 03/2014 [facility]- kidney failure Pleural effusion Use of leuprolide acetate (Lupron) Past Surgical History: Procedure Laterality Date CYSTOSCOPY 07-08-2014 IR DRAINAGE CATHETER CHANGE Right 06/10/2015 CHANGE OF PERCUTANEOUS TUBE OR DRAINAGE CATHETER WITH XRAY AND CONTRAST MEDIUM performed by Gera Mcdaniel MD at RADIOLOGY [facility] IR DRAINAGE CATHETER CHANGE Right 08/24/2016 CHANGE OF PERCUTANEOUS TUBE OR DRAINAGE CATHETER WITH XRAY AND CONTRAST MEDIUM performed by Gera Mcdaniel MD at RADIOLOGY [facility] IR GENITORINARY NEPHRO/CYSTO/URETERAL 01/18/2019 [...] ttl pk-yrs) Types: Cigarettes Smokeless tobacco: Never Tobacco comments: 5 cpd smoker 06/14/23. Vaping Use Vaping Use: Never used Substance [...] Nursing Notes * Romelia Clarke LPN - 06/14/2023 2:04 PM EDT Chief Complaint Patient presents with Follow Up Here [facility] follow up. 06/06/23.- Interm History/Respiratory Symptoms Cough: yes-clear phelgm Hemoptysis: none since discharged from hospital Sinus Symptoms: seasonal Hospitalizations: 05/31-06/05 ED Trips: 05/31- Triggers: dust,perfumes Nocturnal: head elevated at night CPAP/BiPAP/O2: o2 at night 2L 1 hr before bed Flu Vaccine: 2022 Pneumovax: 2018 Prevnar: 2022 COVID 19: x3. Mmrc Cat Question 06/14/2023 2:01 PM EDT - Filed by Romelia Clarke LPN When do you become breathless? (3) I stop for breath after walking about 100 yards or after a few minutes on level ground How frequently do you cough? (4) Do you have phlegm in your chest? (4) Is your chest tight? (0) - My chest does not feel tight at all How breathless do you become when walking up a hill or steps? (3) How limited are you doing activities at home? (3) How confident are you leaving home with your lung condition? (2) How soundly do you sleep? (2) How much energy do you have? (2) Total MMRC Score (range: 0 - 4) 3 Total CAT Score (range: 0 - 40) 20 documented in this encounter Plan of Treatment Upcoming Encounters Date Type Department Care Team ([facility] st Contact Info) Description 06/16/2023 11:30 AM EDT Office Visit [facility] [address] [place] [address] Edgar Gibbs MD [address] [address] 06/26/2023 11:30 AM EDT PulmDiagnostic Pulmonary Function Lab, [facility] [address] [facility] [place] [address] [place], Pulm Function Tech 2 [address] [facility] [place] [address] 07/19/2023 11:00 AM EDT Appointment Interventional Radiology [facility], [facility] 1st Floor [address] [place] [address] 09/13/2023 12:20 PM EDT Office Visit Pulmonary Medicine, [facility] [address] [facility] [place] [address] Tino Stapleton MD [address] [facility] [place] [address] 10/25/2023 3:15 PM EDT Office Visit Urology, [facility] 132 [facility] [place] [address] Travon Canales MD [address] [place] [address] 12/06/2023 1:40 PM EDT Office Visit Pulmonary Medicine, [facility] 132 [facility] [place] [address] Tino Stapleton MD [address] [place] [address] 12/13/2023 2:00 PM EDT Office Visit Cardiology, [facility] [address] [facility] [place] [address] Gris Alford CRNP 132 [facility] [place] [address] 02/26/2024 9:30 AM EST Cardiac Studies Cardiac Studies, [address] [place] [address] Scheduled Orders Name Type Priority Associated Diagnoses Orde r Schedule IR CHEST THORACENTESIS Medical Imaging Routine COPD, group C, by GOLD 2017 classification (HCC) Pleural effusion, right Prostate cancer (HCC) Expected: 08/14/2023, Expires: 07/13/2024 Health Maintenance Due Date Last Done Comments Alpha-1 Antitrypsin 05/18/1963 *COPD SEVERITY VERIFIED BY PFT 03/05/2022 COVID-19 Vaccine ( season) 2022 01/19/2021, 06/10/2020, 05/20/2020 DISCUSS TOBACCO CESSATION (REFER TO SMARTSET #[id number]) 06/04/2023 06/03/2022 Depression Screening 06/04/2023 06/03/2022 O2 ASSESSMENT COMPLETED IN PAST YEAR FOR COPD 06/13/2024 06/14/2023 DTaP,Tdap,and Td Vaccines (2 - Td or [...] C, by GOLD 2017 classification (HCC)- Primary Pleural effusion, right Unspecified pleural effusion HTN, goal below 140/90 Unspecified essential hypertension Kidney disease, chronic, stage V (GFR under 15 ml/min) (HCC) Chronic kidney disease, Stage V Prostate cancer (HCC) Malignant neoplasm of prostate 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 (HCC) documented in this encounter Advance Directives Latest Code Status on File Code Status Date Activated Date Inactivated Comments Full Code 04/15/2015 4:40 PM 04/16/2015 5:24 PM This order reflects the patients wishes and were consensually agreed upon. Care Teams Core Analysis Operator Relationship Specialty Start Date End Date Edgar Gibbs MD [address] [place] [phone] PCP - General Family Medicine 07/03/20 documented as of this encounter
--- OUTSIDE RECORDS SUMMARY | 2023-07-04 19:10 | External Medical Summary | Summary of Care ---
Author Name Unknown Organization [facility] Address [address] [facility] [place] [address] Phone [phone] Care Team Providers Care Child Life Assistant Name Role Phone Edgar Gibbs MD Primary Care P rovider Reason for Visit * Reason Onset Date Comments Test Results 06/12/2023 6MW Encounter Details Date Type Department Care Team (Late st Contact Info) Description 06/12/2023 Telephone Pulmonary Medicine, [facility] 132 [facility] [place] [phone] Tino Mcdowell MD [address] [facility] [place] [id number] Test Results (6MW) Allergies [...] Acetate (3 Month) 22.5 MG Subcutaneous Kit (EliJobHived) Inject 22.5 mg under the skin. Every 3 months 0 11/18/2020 Active Incruse Ellipta 62.5 MCG/ACT Inhalation Aerosol Powder Breath Activated (umeclidinium [place])Indications: Chronic obstructive pulmonary disease, unspecified COPD type [...] mRNA, LNP-s, No Pre serve, 2-Dose Series (WP Engine) 01/19/2021,06/10/2020,05/20/2020 HEP B - Hepatitis B (Dialysis/Immumocomp Pt) 12/20/2018,07/21/2018,06/19/2018 PPD 05/03/2018 Pneumococcal Conjugate Vacci ne, 20-valent ([id number]) 03/16/2022 Pneumococcal Polysaccharide PPV23 (Pneumovax) 12/28/2017 Seasonal [...] Care Team (Late st Contact Info) Description 06/16/2023 11:30 AM EDT Office Visit [address] [phone] Edgar Gibbs MD [address] [place] [address] 06/26/2023 11:30 AM EDT PulmDiagnostic Pulmonary Function Lab, [facility] 132 [facility] [place] [address] [place], Pulm Function Tech 2 132 [facility] [place] [address] 07/19/2023 11:00 AM EDT Appointment Interventional Radiology [facility] 1[facility] [address] [facility] [place] [address] 09/13/2023 12:20 PM EDT Office Visit Pulmonary Medicine, [facility] 132 [facility] [place] [address] Tino Mcdowell MD [address] [facility] [place] [address] 10/25/2023 3:15 PM EDT Office Visit Urology, [facility] 132 [place] [address] Travon Canales MD [address] [place] [address] 12/06/2023 1:40 PM EDT Office Visit Pulmonary Medicine, [facility] 132 [facility] [place] [address] Tino Mcdowell MD [address] [place] [address] 12/13/2023 2:00 PM EDT Office Visit Cardiology, [facility] 132 [facility] [place] [address] Gris Alford CRNP 132 [facility] [place] [address] 02/26/2024 9:30 AM EST Cardiac Studies Cardiac Studies, [address] [place] [address] Health Maintenance Due Date Last Done Comments [...] and were consensually agreed upon. Care Teams Child Life Assistant Relationship Specialty Start Date End Date Edgar Gibbs MD [address] [place] [phone] PCP - General Family Medicine 07/03/20 documented as of this encounter
--- OUTSIDE RECORDS SUMMARY | 2023-07-04 19:11 | External Medical Summary | Summary of Care ---
Author Name Unknown Organization [facility] Address [address] [facility] [place] [address] Phone [phone] Care Team Providers Care Lane Attendant Name Role Phone Edgar Gibbs MD Primary Care P rovider Encounter Details Date Type Department Care Team (Late st Contact Info) Description 06/12/2023 Telephone Pulmonary Medicine, [facility] 132 [facility] [place] [address] Tino Stapleton MD [address] [facility] [place] [address] Allergies Active Allergy Reactions Criticality Noted Date Comments Latex 07/19/2019 Pantoprazole Sodium Edema face/lips/tongue High 04/0 02/2014 documented as of this encounter (statuses as of 06/12/2023) Medications Medication Sig Dispensed Refills Start Date [...] MCG/ACT Inhalation Aerosol Powder Breath Activated (umeclidinium [place])Indications: Chronic obstructive pulmonary disease, unspecified COPD type [...] as of this encounter (statuses as of 06/12/2023) Active Problems Problem Noted Date Diagnosed Date [...] as of this encounter (statuses as of 06/12/2023) Resolved Problems Problem Noted Date Diagnosed Date [...] as of this encounter (statuses as of 06/12/2023) Immunizations Name Administration Dates Next Due COVID-19 mRNA, LNP-s, No Pre serve, 2-Dose Series (Taumatropo Animation) 01/19/2021,06/10/2020,05/20/2020 HEP B - Hepatitis B (Dialysis/Immumocomp Pt) 12/20/2018,07/21/2018,06/19/2018 PPD 05/03/2018 Pneumococcal Conjugate Vacci ne, 20-valent ([id number]) 03/16/2022 Pneumococcal Polysaccharide PPV23 (Pneumovax) 12/28/2017 Seasonal [...] Telephone Encounter - Tino Stapleton MD - 06/12/2023 4:43 PM EDT 2 L nasal cannula oxygen, POC with conserving device ordered for use during activity. documented in this encounter Plan of Treatment Upcoming Encounters Date Type Department Care Team (Late st Contact Info) Description 06/14/2023 2:00 PM EDT Office Visit Pulmonary Medicine, [facility] 132 [facility] [place] [address] Tino Stapleton MD [facility] [place] [facility] [place] [address] 06/16/2023 11:30 AM EDT Office Visit [address] [phone] Edgar Gibbs MD [address] [place] [address] 06/26/2023 11:30 AM EDT PulmDiagnostic Pulmonary Function Lab, [facility] [address] [place] [address] [place], Pulm Function Tech 2 132 [facility] [place] [address] 07/19/2023 11:00 AM EDT Appointment Interventional Radiology [facility] 1st Floor [address] [facility] [place] [address] 10/25/2023 3:15 PM EDT Office Visit Urology, [facility] 132 [facility] [place] [address] Travon Canales MD [address] [facility] [place] [address] [place] [address] 12/06/2023 1:40 PM EDT Office Visit Pulmonary Medicine, [facility] 132 [facility] [place] [address] Tino Stapleton MD [address] [place] [address] 12/13/2023 2:00 PM EDT Office Visit Cardiology, [facility] 132 [facility] [place] [address] Gris Alford CRNP 132 [facility] [place] [address] 02/26/2024 9:30 AM EST Cardiac Studies Cardiac Studies, [facility] [address] [facility] [place] [address] Health Maintenance Due Date Last Done Comments Alpha-1 Antitrypsin 05/18/1961 *COPD SEVERITY VERIFIED BY PFT 03/05/2022 COVID-19 Vaccine (2022- season) 2022 01/19/2021, 06/10/2020, 05/20/2020 DISCUSS TOBACCO [...] and were consensually agreed upon. Care Teams Lane Attendant Relationship Specialty Start Date End Date Edgar Gibbs MD [address] [place] [address] PCP - General Family Medicine 07/03/20 documented as of this encounter
--- OUTSIDE RECORDS SUMMARY | 2023-07-04 19:11 | External Medical Summary | Summary of Care ---
Author Name Unknown Organization [facility] Address [address] [facility] [place] [address] Phone [phone] Care Team Providers Care Chick Grader Name Role Phone Edgar Gibbs MD Primary Care P rovider Reason for Visit * Reason Onset Date Comments Hospital Follow-Up 06/06/2023 Encounter Details Date Type Department Care Team ([facility] st Contact Info) Description 06/06/2023 Telephone Family Practice [address] [phone] Edgar Gibbs MD [address] [place] [address] Hospital Follow-Up Allergies Active Allergy Reactions Criticality Noted Date Comments Latex 07/19/2019 Pantoprazole Sodium Edema face/lips/tongue High 04/0 02/2014 documented as of this encounter (statuses as of 06/07/2023) Medications Medication Sig Dispensed Refills Start Date [...] Acetate (3 Month) 22.5 MG Subcutaneous Kit (EliSurgientd) Inject 22.5 mg under the skin. Every 3 months 0 11/18/2020 Active Incruse Ellipta 62.5 MCG/ACT Inhalation Aerosol Powder Breath Activated (umeclidinium [place])Indications: Chronic obstructive pulmonary disease, unspecified COPD type [...] as of this encounter (statuses as of 06/07/2023) Active Problems Problem Noted Date Diagnosed Date [...] as of this encounter (statuses as of 06/07/2023) Resolved Problems Problem Noted Date Diagnosed Date [...] as of this encounter (statuses as of 06/07/2023) Immunizations Name Administration Dates Next Due COVID-19 mRNA, LNP-s, No Pre serve, 2-Dose Series (Pfizer) 01/19/2021,06/10/2020,05/20/2020 HEP B - Hepatitis B (Dialysis/Immumocomp Pt) 12/20/2018,07/21/2018,06/19/2018 PPD 05/03/2018 Pneumococcal Conjugate Vacci ne, 20-valent ([id number]) 03/16/2022 Pneumococcal Polysaccharide PPV23 (Pneumovax) 12/28/2017 Seasonal [...] encounter Miscellaneous Notes * Telephone Encounter - Judy Canales OSA - 06/07/2023 9:59 AM EDT Spoke to -appt rescheduled * Telephone Encounter - Rocio Avila OSA - 06/06/2023 4:08 PM EDT No Appointments Available Patient declined appointments?: No What Visit Type is needed? Hospital Discharge If Acute Visit Type is needed, were surrounding clinics offered to patient (Yes/No)? N/A Was patient offered appointments with other available providers (Yes/No)? N/A See Call Details? (Yes or No): No Pt. Can not have appointment on . Or . Also, not June 11. documented in this encounter Plan of Treatment Upcoming Encounters Date Type Department Care Team (Late st Contact Info) Description 06/12/2023 11:30 AM EDT Office Visit Cardiology, [facility] [address] [place] [address] Gris Alford CRNP [address] [place] [address] 06/14/2023 2:00 PM EDT Office Visit Pulmonary Medicine, [facility] 132 [facility] [place] [address] Tino Stapleton MD [address] [place] [address] 06/16/2023 11:30 AM EDT Office Visit [facility] [address] [place] [phone] Edgar Gibbs MD [address] [place] [address] 06/26/2023 11:30 AM EDT PulmDiagnostic Pulmonary Function Lab, [facility] 132 [facility] [place] [address] [facility] Pulm Function Tech 132 [facility] [place] [address] 07/19/2023 11:00 AM EDT Appointment Interventional Radiology [facility] [place] [facility] 1st Floor 100 [place] [address] 10/25/2023 3:15 PM EDT Office Visit Urology, [facility] [address] [facility] [place] [address] Travon Canales MD [address] [address] [place] [address] 12/06/2023 1:40 PM EDT Office Visit Pulmonary Medicine, [facility] [address] [facility] [place] [address] Tino Stapleton MD [address] [place] [address] 02/26/2024 9:30 AM EST Cardiac Studies Cardiac Studies, [facility] [address] [place] [address] Health Maintenance Due Date Last Done Comments [...] and were consensually agreed upon. Care Teams Chick Grader Relationship Specialty Start Date End Date Edgar Gibbs MD [address] [place], [place] [address] [address] PCP - General Family Medicine 07/03/20 documented as of this encounter
--- OUTSIDE RECORDS SUMMARY | 2023-07-04 19:11 | External Medical Summary | Summary of Care ---
Author Name Unknown Organization [facility] Address [address] [facility] [place] [address] Phone [phone] Care Team Providers Care Hand Stoner Name Role Phone Edgar Gibbs MD Primary Care P rovider Reason for Visit * Reason Comments NEW PATIENT Hospital Follow-Up Encounter Details Date Type Department Care Team (Late st Contact Info) Description 06/12/2023 11:30 AM EDT Office Visit Cardiology, [facility] [address] [place] [address] Gris Alford CRNP [address] [place] [address] Nonrheumatic aortic valve stenosis*; HTN, goal below 140/90; Pleural effusion, right; 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 ([facility]) Allergies Active Allergy Reactions Criticality Noted [...] MCG/ACT Inhalation Aerosol Powder Breath Activated (umeclidinium [place])Indication s:Chronic obstructive pulmonary disease, unspecified COPD type [...] at bedtime. 30 Tablet 5 05/29/2023 Active Atenolol 50 MG Oral Tablet (Tenormin) TAKE 1 TABLET BY MOUTH ONCE DAILY AT BEDTIME 90 Tablet 1 11/22/2022 Discontinue d(Medicatio n List Clean Up) documented as of this encounter (statuses as [...] mRNA, LNP-s, No Pre serve, 2-Dose Series (Shoutfit) 01/19/2021,06/10/2020,05/20/2020 HEP B - Hepatitis B (Dialysis/Immumocomp Pt) 12/20/2018,07/21/2018,06/19/2018 PPD 05/03/2018 Pneumococcal Conjugate Vacci ne, 20-valent ([id number]) 03/16/2022 Pneumococcal Polysaccharide PPV23 (Pneumovax) 12/28/2017 Seasonal [...] Sign Reading Time Taken Comments Blood Pressure 158/76 06/12/2023 11:34 AM EDT Pulse 66 06/12/2023 11:34 AM EDT Temperature - - Respiratory Rate - - Oxygen Saturation - - Inhaled Oxygen Concentration - - Weight 57.6 kg (127 lb) 06/12/2023 11:34 AM EDT Height - - Body Mass Index 22.5 05/17/2023 1:27 PM EDT documented in this [...] as of this encounter Progress Notes * Gris Alford CRNP - 06/12/2023 11:30 AM EDT [facility] [place], [facility] New Cardiology Patient 06/12/2023 CC:Hospital discharge follow up: History of Present Illness: Matthew Rowe is a 78 year old year old male presents to establish cardiology care following a recent hospitalization at [facility]. He was admitted 06/01/23-06/06/23 due to hypoxia. Patient had initially undergone a right -sided pleurocentesis at [facility] on 05/31/23. He was feeling well until he was at his routine HD appointment on the day of admission with concerns of Spo2 levels in the low 80's. He was sent home from HD early and reported the he developed acute distress, heavy perspiration and therefore EMS was summoned. Sats upon EMS arrival were 61%. Chest xray upon arrival to the ED demonstrated a right loculated pneumothorax as well as pulmonary edema. He underwent insertion of a pigtail catheter for treatment of the pneumothorax with a dramatic improvement in his symptoms. Patient carries a known history of recurrent bilateral effusions attributed to diastolic dysfunction as well as renal insuffiencey. Cardiology was asked to see the patient due to elevated troponins at the time of admission TroponinI peaked at 1762. His initial EKG demonstrated lateral ischemic changes which resolved on repeat tracing. Repeat echo demonstrated LVEF 55%, mild Aortic valve calcification and mild . His troponin elevation was likely a supply/demand mismatch in the setting of his pneumo with acute hypoxic state. Patient presents today with family feeling well overall. He reports that he has been able to increase his activity some since discharge. He will be seeing his hourly associate on Monday this week. Hestates that he is obviously nervous about a recurrence, but overall feels better than his has in awhile. Continues to deny any chest pain, pressure or palpitations. EKG today shows NSR with nonspecific T wave abnormality and prolonged QT 460ms. This was compared with EKGS during course of hospitalization and remains unchanged. BP elevated today, reports better control with him readings and at HD treatments. His Atenolol was discontinued during hospitalization but he remains on Amlodipine. Discussed potential need for titration is BP would stay elevated. Reports compliance on all medication therapies with no untoward effects. REVIEW OF SYSTEMS: See HPI for pertinent positives. All others negative other than those noted in the HPI. CONSTITUTIONAL: No change in weight, No weakness, No fatigue and No fevers, No sweats or chills. PULMONARY: No cough, sputum, or hemoptysis, No wheezing, No shortness or breath and No recent change in breathing. CARDIOVASCULAR: No chest pain, No dyspnea on exertion, No edema, No palpitations and No syncope. GASTROINTESTINAL: No abdominal pain, No change in bowel habits, No significant heartburn, No nausea, No vomiting, No diarrhea, No constipation, No blood in stools or black tarry stools. No dysphagia. HEMATOLOGIC: No abnormal bleeding and No bruising. NEUROLOGICAL: Normal balance, No headaches and No weakness. Past Medical History: Patient Active Problem List Diagnosis Code Chronic anemia D64.9 HTN, goal below 140/90 I10 Kidney disease, chronic, stage V (GFR under 15 ml/min) ([facility]) N18.5 Prostate cancer ([facility]) C61 Hydronephrosis, right N13.30 Dialysis patient ([facility]) Z99.2 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 ([facility]) I12.0, N18.6, Z99.2 DNR (do not resuscitate) Z66 ESRD (end stage renal disease) on dialysis ([facility]) N18.6, Z99.2 Tobacco user Z72.0 Bladder stones N21.0 Pleural effusion, right J90 COPD, group C, by GOLD 2017 classification ([facility]) J44.9 Past Surgical History: Procedure Laterality Date CYSTOSCOPY 07-08-2014 IR DRAINAGE CATHETER CHANGE Right 06/10/2015 CHANGE OF PERCUTANEOUS TUBE OR DRAINAGE CATHETER WITH XRAY AND CONTRAST MEDIUM performed by Gera Mcdaniel MD at RADIOLOGY [facility] IR DRAINAGE CATHETER CHANGE Right 08/24/2016 CHANGE OF PERCUTANEOUS TUBE OR DRAINAGE CATHETER WITH XRAY AND CONTRAST MEDIUM performed by Gera Mcdaniel MD at RADIOLOGY [facility] IR GENITORINARY NEPHRO/CYSTO/URETERAL 01/18/2019 IR GENITORINARY NEPHRO/CYSTO/URETERAL 04/01/2019 IR GENITORINARY NEPHRO/CYSTO/URETERAL 08/02/2019 IR GENITORINARY NEPHRO/CYSTO/URETERAL 12/13/2019 IR GENITORINARY NEPHRO/CYSTO/URETERAL 04/29/2020 IR GENITORINARY NEPHRO/CYSTO/URETERAL 08/19/2020 IR GENITORINARY NEPHRO/CYSTO/URETERAL 12/23/2020 IR GENITORINARY NEPHRO/CYSTO/URETERAL 04/14/2021 IR GENITORINARY NEPHRO/CYSTO/URETERAL 08/04/2021 IR GENITORINARY NEPHRO/CYSTO/URETERAL 12/10/2021 IR GENITORINARY NEPHRO/CYSTO/URETERAL 04/06/2022 IR GENITORINARY NEPHRO/CYSTO/URETERAL 08/15/2022 IR GENITORINARY NEPHRO/CYSTO/URETERAL 01/04/2023 IR GENITORINARY NEPHRO/CYSTO/URETERAL 04/19/2023 NONE Family History: Family History Problem Relation Age of Onset Stomach cancer Mother in her 80s COPD Father age 64 Parkinsonism Sister Lung cancer Sister Breast Cancer Sister breast Other (AAA) Sister Parkinsonism Sister COPD Sister Heart attack Brother Social History: Social History Socioeconomic History Marital status: Spouse [...] on file Housing Stability: Not on file Allergies: Pantoprazole sodium and Latex Medications: Current Outpatient Medications Medication Sig Dispense Refill Cholecalciferol 2000 units Capsule Take 1 Capsule by mouth in the morning. 30 Cap 3 Calcium Acetate, Phos Binder, 667 MG TABS take 2 pills 3 x daily 180 Tab 11 Incruse Ellipta 62.5 MCG/ACT Inhalation Aerosol Powder Breath Activated (umeclidinium [place]) Inhale 1 Puff by mouth in the morning. 30 Each 11 Nephro-Farzana 0.8 MG Oral Tablet TAKE ONE TABLET BY MOUTH ONCE DAILY 90 Tablet 3 LORazepam 0.5 MG Oral Tablet (Ativan) Take [...] every night at bedtime. 30 Tablet 5 Sodium Chloride Flush (NORMAL SALINE FLUSH) 0.9 [...] taking: Reported on 04/12/2023) 18 g 5 No current facility-administered medications for this visit. PHYSICAL EXAMINATION: BP 158/76 | Pulse 66 | Wt 57.6 kg (127 lb) | BMI 22.50 kg/m | BSA 1.6 m General: No acute distress. A+Ox3. HEENT: Normocephalic. Atraumatic. PERRL. EOMI. Conjunctiva and sclera clear. NECK: No carotid bruits. No JVD. Carotid upstrokes are brisk. Heart: RRR. S1 and S2 noted. No murmur. No rubs or gallops. PMI non displaced. Lungs: Clear to auscultation. No wheezes.No rhonchi. No rales. Abdomen: Normal bowel sounds. Soft. Nontender. No masses or organomegaly. No abdominal bruits. Extremities: No edema. No clubbing or cyanosis. Pulses: radial=2/4, posterior tibial=2/4, dorsalis pedis = 2/4. NEURO: No focal deficits. PSYCH: Appropriate affect and insight. DATA Labs & Imaging Reviewed Below: EKG 06/05/23 SB LVH Rate 51bpm Echocardiogram May 2023 [facility] (inpatient admission) LVEF 55% Mild concentric LVH No regional wall motion abnormalities Mild aortic valve calcification and mild Echocardiogram 03/03/2023 Interpretation Summary Calculated LV ejection Fraction = 54% (three dimensional volumes). Mild biatrial enlargement. The aortic valve has three leaflets. The aortic valve is mildly calcified. Moderate aortic valve stenosis is present. Mild mitral regurgitation is present. Moderate tricuspid regurgitation is present. The estimated pulmonary artery systolic pressure is 58mm Hg. IMPRESSION: 78 year old year old male Non Rheumatic aortic valve stenosis HTN ESRD Recurrent Pleural effusions RECOMMENDATIONS/PLAN: Nonrheumatic aortic valve stenosis (Primary) -Mild per most recent echo obtained during course of admission at [facility] May 2023. -No decline in functional capacity -Plan to repeat on yearly basis HTN, goal below 140/90 -Slightly above target. Continued monitoring through HD and also with home monitor. Discussed that if Systolic BP would remains 150mmHG or greater, would recommend titration up his amlodipine vs adding additional agent. Atenolol was discontinued during course of hospitalization due to bradycardia. Will work in conjunction with nephrology for better control. -Continue Torsemide - EKG Pleural effusion, right -significant improvement since hospitalization. He will be seeing Pulmonology on Monday 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 (HCC) -Continue with HD treatments on Monday, and Monday -Continued close follow up with Nephrology - EKG Follow Up: Return in about 6 months (around 12/12/2023). Disposition: Follow up 6 months The patient agrees to the above plan and will call with additional questions or concerns. All questions were answered to the patients satisfaction. ER with all emergencies advised. [facility], [address] [address] I spent a total of 60 minutes on the date of service in preparation, delivery, and documentation ofthe care provided to Matthew Rowe excluding any time spent in the performance of separately billed services. This chart was completed in part utilizing [employer] of [employer] (NIH) Speech Voice Recognition Software. Grammatical errors, random word insertions, prounoun errors, and incomplete sentences are an occasional consequence of this system due to software limitations, ambient noise, and hardware issues. Any formal questions or concerns about the content, text, or information contained within the body of this dictation should be directly addressed to the provider for clarification. documented in this encounter Nursing Notes * Louise Gilmore CMA - 06/12/2023 11:33 AM EDT Examination Room: 7 Name: Matthew Rowe Date of : (1945) Reason for Visit: new pt/ HD Interim Hospitalization(s): [facility] May Problems/Concerns: denied Chest Pain/SOB: denied My [facility] is a way you can talk to your provider online through e-mail. Would you like to sign up? I can activate it for you? ALREADY ACTIVE Patient was instructed to not get up on the exam table until directed and assisted by their provider; patient is to remain seated in the chair/ wheelchair/ exam table for fall prevention and safety reasons. Patient is aware to have assistance to step down off exam table with personnel. Patient voiced full comprehension of instructions. documented in this encounter Plan of Treatment Upcoming Encounters Date Type Department Care Team (Late st Contact Info) Description 06/14/2023 2:00 PM EDT Office Visit Pulmonary Medicine, [facility] 132 [facility] [place] [address] Tino Stapleton MD [address] [facility] [address] 06/16/2023 11:30 AM EDT Office Visit [address] [phone] Edgar Gibbs MD [address] [place] [address] 06/26/2023 11:30 AM EDT PulmDiagnostic Pulmonary Function Lab, [facility] 132 [facility] [place] [address] [place], Pulm Function Tech 2 132 [facility] [place] [address] 07/19/2023 11:00 AM EDT Appointment Interventional Radiology [facility], [facility] 1st Floor [address] [place] [address] 10/25/2023 3:15 PM EDT Office Visit Urology, [facility] 132 [facility] [place] [address] Travon Canales MD [address] [place] [address] [place] [address] 12/06/2023 1:40 PM EDT Office Visit Pulmonary Medicine, [facility] [address] [facility] [place] [address] Tino Stapleton MD [address] [place] [address] 12/13/2023 2:00 PM EDT Office Visit Cardiology, [facility] 132 [facility] [place] [address] Gris Alford CRNP 132 [facility] [place] [address] 02/26/2024 9:30 AM EST Cardiac Studies Cardiac Studies, [facility] 132 [facility] [place] [address] Scheduled Orders Name Type Priority Associated Diagnoses Orde r Schedule EKG EKG Routine HTN, goal below 140/90 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 (HCC) Ordered: 06/12/2023 Health Maintenance Due Date Last Done Comments [...] as of this encounter Visit Diagnoses Diagnosis Nonrheumatic aortic valve stenosis- Primary Aortic valve disorders HTN, goal below 140/90 Unspecified essential hypertension Pleural effusion, right Unspecified pleural effusion 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 (HCC) documented in this encounter Advance Directives Latest Code Status on File Code Status Date Activated Date Inactivated Comments Full Code 04/15/2015 4:40 PM 04/16/2015 5:24 PM This order reflects the patients wishes and were consensually agreed upon. Care Teams Hand Stoner Relationship Specialty Start Date End Date Edgar Gibbs MD [address] [place] [address] PCP - General Family Medicine 07/03/20 documented as of this encounter"
--- OUTSIDE RECORDS SUMMARY | 2023-07-04 19:11 | External Medical Summary | Summary of Care ---
Author Name Unknown Organization [facility] Address [address] [facility] [place] [address] Phone [phone] Care Team Providers Care Laboratory Coordinator Name Role Phone Edgar Gibbs MD Primary Care P rovider Encounter Details Date Type Department Care Team (Late st Contact Info) Description 06/08/2023 Result Scan Unspecified Department <No scans attached> [...] MCG/ACT Inhalation Aerosol Powder Breath Activated (umeclidinium [place])Indications: Chronic obstructive pulmonary disease, unspecified COPD type [...] mRNA, LNP-s, No Pre serve, 2-Dose Series (ALLGOOB) 01/19/2021,06/10/2020,05/20/2020 HEP B - Hepatitis B (Dialysis/Immumocomp Pt) 12/20/2018,07/21/2018,06/19/2018 PPD 05/03/2018 Pneumococcal Conjugate Vacci ne, 20-valent (Luescep19) 03/16/2022 Pneumococcal Polysaccharide PPV23 (Pneumovax) 12/28/2017 Seasonal [...] 06/12/2023 11:30 AM EDT Office Visit Cardiology, [facility] [address] [facility] [place] [address] Gris Alford CRNP [address] [place] [address] 06/14/2023 2:00 PM EDT Office Visit Pulmonary Medicine, [facility] [address] [place] [address] Tino [facility]apleton [facility] [address] [facility] [address] 06/16/2023 11:30 AM EDT Office Visit [address] [address] Edgar Gibbs MD [address] [place] [address] 06/26/2023 11:30 AM EDT PulmDiagnostic Pulmonary Function Lab, [facility] [address] [place] [address] [place], Pulm Function Tech [address] [place] [address] 07/19/2023 11:00 AM EDT Appointment Interventional Radiology [facility], [facility] 1st Floor [address] [place] [address] 10/25/2023 3:15 PM EDT Office Visit Urology, [facility] 132 [facility] [place] [address] Travon Canales MD [address] [place] [address] 12/06/2023 1:40 PM EDT Office Visit Pulmonary Medicine, [facility] 132 [facility] [place] [address] Tino Stapleton MD [address] [place] [address] 02/26/2024 9:30 AM EST Cardiac Studies Card[facility] [address] Health Maintenance Due Date Last Done Comments Alpha-1 Antitrypsin 05/18/1963 *COPD SEVERITY VERIFIED BY PFT 03/05/2022 COVID-19 Vaccine ( season) 2022 01/19/2021, 06/10/2020, 05/20/2020 DISCUSS TOBACCO CESSATION (REFER TO SMARTSET #9065) 06/04/2023 06/03/2022 Depression Screening 06/04/2023 06/03/2022 O2 [...] Date/Time Associated Diagnosis Comments OUTSIDE LAB RESULTS 06/08/2023 documented in this encounter Results * OUTSIDE LAB RESULTS (06/08/2023) 06/08/2023 No Physician Data Unknown LABORATORY documented in this encounter Advance Directives Latest Code Status on File Code Status Date Activated Date Inactivated Comments Full Code 04/15/2015 4:40 PM 04/16/2015 5:24 PM This order reflects the patients wishes and were consensually agreed upon. Care Teams Laboratory Coordinator Relationship Specialty Start Date End Date Edgar Gibbs MD [address] [place] [phone] PCP - General Family Medicine 07/03/20 documented as of this encounter
--- OUTSIDE RECORDS SUMMARY | 2023-07-04 19:11 | External Medical Summary | Summary of Care ---
Author Name Unknown Organization [facility] Address [address] [facility] [place] [address] Phone [phone] Care Team Providers Care Heavy Media Operator Name Role Phone Edgar Gibbs MD Primary Care P rovider Reason for Visit * Reason Onset Date Comments Test Results 06/12/2023 6MW Encounter Details Date Type Department Care Team (Late st Contact Info) Description 06/12/2023 Telephone Pulmonary Medicine, [facility] 132 [facility] [place] [id number] Tino Mcdowell MD [address] [facility] [place] [address] Test Results (6MW) Allergies [...] Acetate (3 Month) 22.5 MG Subcutaneous Kit (EliQwited) Inject 22.5 mg under the skin. Every 3 months 0 11/18/2020 Active Incruse Ellipta 62.5 MCG/ACT Inhalation Aerosol Powder Breath Activated (umeclidinium [place])Indications: Chronic obstructive pulmonary disease, unspecified COPD type [...] mRNA, LNP-s, No Pre serve, 2-Dose Series (TripIt) 01/19/2021,06/10/2020,05/20/2020 HEP B - Hepatitis B (Dialysis/Immumocomp Pt) 12/20/2018,07/21/2018,06/19/2018 PPD 05/03/2018 Pneumococcal Conjugate Vacci ne, 20-valent ([id number]) 03/16/2022 Pneumococcal Polysaccharide PPV23 (Pneumovax) 12/28/2017 Seasonal [...] 2:00 PM EDT Office Visit Pulmonary Medicine, [facility] 132 [facility] [place] [address] Tino Mcdowell MD [address] [place] [address] 06/16/2023 11:30 AM EDT Office Visit [facility] [address] [place] [phone] Edgar Gibbs MD [address] [place] [address] 06/26/2023 11:30 AM EDT PulmDiagnostic Pulmonary Function Lab, [facility] 132 [facility] [place] [address] [facility] Pulm Function Tech [address] [facility] [place] [address] 07/19/2023 11:00 AM EDT Appointment Interventional Radiology [facility], [facility] 1st Floor [address] [place] [address] 10/25/2023 3:15 PM EDT Office Visit Urology, [facility] [address] [facility] [place] [address] Travon Canales MD [address] [address] [place] [address] 12/06/2023 1:40 PM EDT Office Visit Pulmonary Medicine, [facility] [address] [facility] [place] [address] Tino Mcdowell MD [address] [place] [address] 12/13/2023 2:00 PM EDT Office Visit Cardiology, [facility] [address] [facility] [place] [address] Gris Alford CRNP [address] [place] [address] 02/26/2024 9:30 AM EST Cardiac Studies Cardiac Studies, [facility] [place] [address] Health Maintenance Due Date Last Done Comments [...] and were consensually agreed upon. Care Teams Heavy Media Operator Relationship Specialty Start Date End Date Edgar Gibbs MD [address] [place] [phone] PCP - General Family Medicine 07/03/20 documented as of this encounter
--- OUTSIDE RECORDS SUMMARY | 2023-07-04 19:11 | External Medical Summary | Summary of Care ---
Author Name Unknown Organization [facility] Address [address] [facility] [place] [address] Phone [phone] Care Team Providers Care County Manager Name Role Phone Edgar Gibbs MD Primary Care P rovider Reason for Visit * Reason Onset Date Comments Test Results 06/12/2023 6MW Encounter Details Date Type Department Care Team (Late st Contact Info) Description 06/12/2023 Telephone Pulmonary Medicine, [facility] 132 [facility] [place] [id number] Tino Mcdowell MD [address] [facility] [place] [address] Test Results (6MW) Allergies [...] V (GFR under 15 ml/min) ([facility]) take 2 pills 3 x daily 180 Tab 11 10/26/2018 Active Sodium Chloride Flush (NORMAL SALINE FLUSH) 0.9 % SOLN injection FLUSH ONCE DAILY WITH 10ml 300 mL 1 03/12/2019 Active Leuprolide Acetate (3 Month) 22.5 MG Subcutaneous Kit (EliRoundsd) Inject 22.5 mg under the skin. Every 3 months 0 11/18/2020 Active Incruse Ellipta 62.5 MCG/ACT Inhalation Aerosol Powder Breath Activated (umeclidinium [place])Indications: Chronic obstructive pulmonary disease, unspecified COPD type [...] mRNA, LNP-s, No Pre serve, 2-Dose Series (DataArt) 01/19/2021,06/10/2020,05/20/2020 HEP B - Hepatitis B (Dialysis/Immumocomp Pt) 12/20/2018,07/21/2018,06/19/2018 PPD 05/03/2018 Pneumococcal Conjugate Vacci ne, 20-valent ([id number]) 03/16/2022 Pneumococcal Polysaccharide PPV23 (Pneumovax) 12/28/2017 Seasonal [...] 2:00 PM EDT Office Visit Pulmonary Medicine, [facility] 132 [facility] [place] [address] Tino Mcdowell MD [address] [place] [address] 06/16/2023 11:30 AM EDT Office Visit [facility] [address] [place] [address] Edgar Gibbs MD [address] [place] [address] 06/26/2023 11:30 AM EDT PulmDiagnostic Pulmonary Function Lab, [facility] 132 [facility] [place] [address] [place], Pulm Function Tech 2 132 [facility] [place] [address] 07/19/2023 11:00 AM EDT Appointment Interventional Radiology [facility], [facility] 1st Floor [address] [facility] [place] [address] 10/25/2023 3:15 PM EDT Office Visit Urology, [facility] 132 [facility] [place] [address] Travon Canales MD [address] [address] [place] [address] 12/06/2023 1:40 PM EDT Office Visit Pulmonary Medicine, [facility] 132 [facility] [place] [address] Tino Mcdowell MD [address] [place] [address] 12/13/2023 2:00 PM EDT Office Visit Cardiology, [facility] 132 [facility] [place] [address] Gris Alford CRNP 132 [facility] [place] [address] 02/26/2024 9:30 AM EST Cardiac Studies Cardiac Studies, [facility] 132 [facility] [place] [address] Health Maintenance Due Date Last Done Comments Alpha-1 Antitrypsin 05/18/1963 *COPD SEVERITY VERIFIED BY PFT 03/05/2022 COVID-19 Vaccine ( season) 2022 01/19/2021, 06/10/2020, 05/20/2020 DISCUSS TOBACCO CESSATION (REFER TO SMARTSET #3295) [...] and were consensually agreed upon. Care Teams County Manager Relationship Specialty Start Date End Date Edgar Gibbs MD [address] [place] [id number] PCP - General Family Medicine 07/03/20 documented as of this encounter
--- OUTSIDE RECORDS SUMMARY | 2023-07-04 19:11 | External Medical Summary | Summary of Care ---
Author Name Unknown Organization [facility] Address [address] [facility] [place] [address] Phone [phone] Care Team Providers Care Transplant Nurse Practitioner Name Role Phone Edgar Gibbs MD Primary Care P rovider Reason for Visit * Reason Onset Date Comments Test Results 06/12/2023 6MW Encounter Details Date Type Department Care Team (Late st Contact Info) Description 06/12/2023 Telephone Pulmonary Medicine, [facility] 132 [facility] [place] [phone] Tino Stapleton MD [address] [facility] [place] [phone] Test Results (6MW) [...] stage V (GFR under 15 ml/min) ([facility]) take 2 pills 3 x daily 180 Tab 11 10/26/2018 Active Sodium Chloride Flush (NORMAL SALINE FLUSH) 0.9 % SOLN injection FLUSH ONCE DAILY WITH 10ml 300 mL 1 03/12/2019 Active Leuprolide Acetate (3 Month) 22.5 MG Subcutaneous Kit (EliQuisicd) Inject 22.5 mg under the skin. Every 3 months 0 11/18/2020 Active Incruse Ellipta 62.5 MCG/ACT Inhalation Aerosol Powder Breath Activated (umeclidinium [place])Indications: Chronic obstructive pulmonary disease, unspecified COPD type [...] mRNA, LNP-s, No Pre serve, 2-Dose Series (USERJOY Technology) 01/19/2021,06/10/2020,05/20/2020 HEP B - Hepatitis B (Dialysis/Immumocomp Pt) 12/20/2018,07/21/2018,06/19/2018 PPD 05/03/2018 Pneumococcal Conjugate Vacci ne, 20-valent (Xlvfscy13) 03/16/2022 Pneumococcal Polysaccharide PPV23 (Pneumovax) 12/28/2017 Seasonal [...] the POC. * Telephone Encounter - Tino Stapleton MD - 06/12/2023 4:43 PM EDT 2 L nasal cannula oxygen, POC with conserving device ordered for use during activity. documented in this encounter Plan of Treatment Upcoming Encounters Date Type Department Care Team (Late st Contact Info) Description 06/14/2023 2:00 PM EDT Office Visit Pulmonary Medicine, [facility] 132 [facility] [place] [address] Tino Stapleton MD [facility] [address] [place] [address] 06/16/2023 11:30 AM EDT [address] [place] [address] Edgar Gibbs MD [address] [place] [address] 06/26/2023 11:30 AM EDT PulmDiagnostic Pulmonary Function Lab, [facility] 132 [facility] [place] [address] [place], Pulm Function Tech 2 132 [facility] [place] [address] 07/19/2023 11:00 AM EDT Appointment Interventional Radiology [facility], [facility] 1st Floor 100 [facility] [place] [address] 10/25/2023 3:15 PM EDT Office Visit Urology, [facility] 132 [facility] [place] [address] Travon Canales MD [address] [address] [place] [address] 12/06/2023 1:40 PM EDT Office Visit Pulmonary Medicine, [facility] 132 [facility] [place] [address] Tino Stapleton MD [address] [place] [address] 12/13/2023 2:00 PM EDT Office Visit Cardiology, [facility] 132 [facility] [place] [address] Gris Alford CRNP 132 [facility] [place] [address] 02/26/2024 9:30 AM EST Cardiac Studies Cardiac Studies, [facility] 132 [facility] [place] [address] Health Maintenance Due Date Last Done Comments [...] and were consensually agreed upon. Care Teams Transplant Nurse Practitioner Relationship Specialty Start Date End Date Edgar Gibbs MD [address] [place] [phone] PCP - General Family Medicine 07/03/20 documented as of this encounter
--- OUTSIDE RECORDS SUMMARY | 2023-07-04 19:11 | External Medical Summary | Summary of Care ---
Author Name Unknown Organization [facility] Address [address] [facility] [place] [address] Phone [phone] Care Team Providers Care Laboratory Courier Name Role Phone Edgar Gibbs MD Primary Care P rovider Reason for Visit * Reason Onset Date Comments Hospital Follow-Up 06/02/2023 Encounter Details Date Type Department Care Team (Late st Contact Info) Description 06/02/2023 Telephone Cardiology, [facility] [address] [place] [address] Colin Knox, [address] [place] [address] Hospital Follow-Up Allergies Active Allergy Reactions Criticality Noted Date Comments Latex 07/19/2019 Pantoprazole Sodium Edema face/lips/tongue High /02/2014 documented as of this encounter (statuses as of 06/05/2023) Medications Medication Sig Dispensed Refills Start Date [...] Acetate (3 Month) 22.5 MG Subcutaneous Kit (Nfocus Neuromedical) Inject 22.5 mg under the skin. Every 3 months 0 11/18/2020 Active Incruse Ellipta 62.5 MCG/ACT Inhalation Aerosol Powder Breath Activated (umeclidinium [facility])Indications: Chronic obstructive pulmonary disease, unspecified COPD type [...] as of this encounter (statuses as of 06/05/2023) Active Problems Problem Noted Date Diagnosed Date [...] as of this encounter (statuses as of 06/05/2023) Resolved Problems Problem Noted Date Diagnosed Date [...] as of this encounter (statuses as of 06/05/2023) Immunizations Name Administration Dates Next Due COVID-19 mRNA, LNP-s, No Pre serve, 2-Dose Series (Pfizer) 01/19/2021,06/10/2020,05/20/2020 HEP B - Hepatitis B (Dialysis/Immumocomp Pt) 12/20/2018,07/21/2018,06/19/2018 PPD 05/03/2018 Pneumococcal Conjugate Vacci ne, 20-valent ([id number]) 03/16/2022 Pneumococcal Polysaccharide PPV23 (Pneumovax) 12/28/2017 Seasonal [...] encounter Miscellaneous Notes * Telephone Encounter - Carlos Chew OSA - 06/05/2023 10:17 AM EDT Called patient, spoke with Eliana, patient is set up with Gris Hui for: Monday Arrive by 11:15 AMAppt at 11:30 AM (1 hr) * Telephone Encounter - Colin Knox DO - 06/02/2023 6:05 PM EDT Please help arrange post hospital follow up to establish with me or other provider. RE mild to moderate aortic stenosis. Visit within a month. Colin Knox DO documented in this encounter Plan of Treatment Upcoming Encounters Date Type Department Care Team (Late st Contact Info) Description 06/12/2023 11:30 AM EDT Office Visit Cardiology, [facility] [address] [place] [address] Gris Alford CRNP [address] [place] [address] 06/26/2023 11:30 AM EDT PulmDiagnostic Pulmonary Function Lab, [facility] 132 [facility] [place] [address] Sergio Pulm Function Tech 2 132 [facility] [place] [address] 07/19/2023 11:00 AM EDT Appointment Interventional Radiology [facility], [facility] 1st Floor [address] [place] [address] 10/25/2023 3:15 PM EDT Office Visit Urology, [facility] 132 [facility] [place] [address] Travon Canales MD [address] [place] [address] 12/06/2023 1:40 PM EDT Office Visit Pulmonary Medicine, [facility] 132 [facility] [place] [address] Tino Stapleton MD [address] [facility] [address] 02/26/2024 9:30 AM EST Cardiac Studies Cardiac Studies, [facility] 132 [facility] [place] [address] Health Maintenance Due Date Last Done Comments Alpha-1 Antitrypsin 05/18/1963 *COPD SEVERITY VERIFIED BY PFT 03/05/2022 COVID-19 Vaccine ( season) 2022 01/19/2021, 06/10/2020, 05/20/2020 DISCUSS TOBACCO CESSATION (REFER TO SMARTSET #4798) 06/04/2023 06/03/2022 Depression Screening 06/04/2023 06/03/2022 O2 [...] were consensually agreed upon. Care Teams Laboratory Courier Relationship Specialty Start Date End Date Edgar Gibbs MD [address] [place] [address] PCP - General Family Medicine 07/03/20 documented as of this encounter
[2023-07-04] MEDS: CITALOPRAM 20 MG TAB PO SCH (20:36)
[2023-07-04 21:53] LABS: Hematocrit (blood only) 25.2 % (42.0-52.0); Hemoglobin 8.3 g/dl (14.0-18.0)
[2023-07-05 04:01] LABS: iSTAT Allen Test Pass; iSTAT Art Bld Gas pCO2 Correct 28 mmHg (35-46); iSTAT Art Bld Gas pH Corrected 7.573 (7.35-7.45); iSTAT Arterial Blood Gas HCO3 26 meg/L (19-24); iSTAT Arterial Blood Gas pCO2 28 mmHg (35-46); iSTAT Arterial Blood Gas pH 7.58 (7.35-7.45); iSTAT Arterial Blood Gas pO2 59 mmHg (80-95); iSTAT Arterial Blood Gas pO2 C 60; iSTAT Carbon Dioxide 27 mmol/L (24-31); iSTAT FiO2 40 %; iSTAT Hematocrit 23 % (42-52); iSTAT Hemoglobin 7.8 g/dl (14.0-18.0); iSTAT Potassium 3.9 mmol/L (3.3-5.0); iSTAT Site R Radial; iSTAT Sodium 137 mmol/L (135-144)
[2023-07-05 05:02] LABS: Basophils # (auto) 0.04 K/uL (0.00-0.20); Basophils % (auto) 0.7 %; Eosinophils # (auto) 0.09 K/uL (0.00-0.50); Eosinophils % (auto) 1.7 %; Hematocrit (blood only) 24.8 % (42.0-52.0); Hemoglobin 8.1 g/dl (14.0-18.0); Immature Granulocytes # (auto) 0.02 K/uL (0.01-0.20); Immature Granulocytes % (auto) 0.4 %; Lymphocytes # (auto) 0.86 K/uL (1.20-3.40); Lymphocytes % (auto) 15.9 %; Mean Corpuscular Hemoglobin 31.5 pg (25.0-34.0); Mean Corpuscular Hgb Conc 32.7 g/dL (32.0-36.0); Mean Corpuscular Volume 96.5 fL (80.0-100.0); Mean Platelet Volume 10.1 fL (9.4-12.4); Monocytes # (auto) 0.46 K/uL (0.11-0.59); Monocytes % (auto) 8.5 %; Neutrophils # (auto) 3.93 K/uL (1.40-6.50); Neutrophils % (auto) 72.8 %; Platelet Count 148 K/uL (130-400); RDW Coefficient of Variation 17.7 % (11.5-14.5); RDW Standard Deviation 61.7 fL (36.4-46.3); Red Blood Count 2.57 M/uL (4.70-6.10)
--- NOTE | 2023-07-05 05:04 | Electrocardiogram Report ---
Test Reason : Blood Pressure : / mmHG Vent. Rate : 096 BPM Atrial Rate : 096 BPM P-R Int : 166 ms QRS Dur : 086 ms QT Int : 384 ms P-R-T Axes : 071 -03 106 degrees QTc Int : 485 ms Normal sinus rhythm Possible Left atrial enlargement Nonspecific ST and T wave abnormality Prolonged QT Abnormal ECG When compared with ECG of 06-JUN-2023 14:11, Vent. rate has increased BY 39 BPM Limb lead reversal is no longer present Confirmed by Alex Ghotra ([id number]) on 07/05/2023 5:04:02 AM Referred By: REFERRED SELF Confirmed By:Alex Ghotra
[2023-07-05 05:34] LABS: Albumin Level 2.9 gm/dl (3.4-5.0); BUN Creatinine Ratio 7.2 (10-20); Bilirubin,Total 0.5 mg/dl (0.2-1.0); Calcium 8.7 mg/dl (8.6-10.3); Creatinine Clr Calc Pharmacy 13.2 ml/min; Est GFR (African American) 15.3 ml/min; Est GFR (Non-African American) 13.2 ml/min; Globulin 2.9 gm/dl (2.5-4.0); Magnesium 1.9 mg/dl (1.7-2.4); Potassium 4.1 mmol/L (3.5-5.1); Total Protein 5.8 gm/dl (6.0-8.3)
--- NOTE | 2023-07-05 07:39 | Critical Care Progress Note ---
Date of Service July 05, 2023 Assessment & Plan (1) Acute on chronic respiratory failure with hypoxia and hypercapnia: Plan: Reason Critically Ill: 78-year-old male with past medical history significant for ESRD (on hemodialysis), valvular heart disease, COPD, recurrent pleural effusions, presented to the emergency department with altered mental status and hypoxia, and was emergently intubated. Patient now transferred to ICU mechanically ventilated for acute hypoxic and hypercapnic respiratory failure. 24-hour events: Patient underwent hemodialysis yesterday. He is remained hemodynamically stable with minimal vent settings. Sedation was maintained overnight for patient comfort. Recommendations Neuro -presented with acute mental status potentially related to hypercapnia. Imaging unrevealing. Discontinue propofol and reassess. No indication for additional interventions or evaluations at this point in time. Initiate PT and OT evaluations Cardiac -fluid overload status post dialysis with ultrafiltration. Hemodynamically stable. History of pulmonary hypertension which is likely group 2. No indication for vasodilators or additional evaluation at this point in time. Volume management per nephrology. Current exacerbation may have been related to hypertension in the setting of diastolic dysfunction. Respiratory - Acute on chronic hypoxic and hypercapnic respiratory failu repatient with recent admission for pneumothorax following thoracentesis for recurrent pleural effusions. Chest x-ray more consistent with acute CHF/pulmonary edema. Status post urgent ultrafiltration. He is better this morning. Will plan on SBT and trial of vent liberation as tolerated. Patient has a history of recurrent pleural effusions and had been undergoing [facility]acentesis [facility]. Last procedure was reportedly aborted for reasons that her not yet clear. Will obtain additional history from the patient and . No evidence of significant effusions currently and given his prior pneumothorax, would be reluctant to intervene unless they were causing significant respiratory or cardiovascular compromise. GI -if were able to extubate, will perform bedside swallow evaluation and advance diet as tolerated. Continue H2 lin RENAL/LYTES - ESRDreceives hemodialysis on Monday, , Monday with last session this past Monday when she was reported to have extra volume removed due to fluid overload. Appreciate nephrology assistance. Defer additional renal placement to them. Volume status still slightly up. Acid-base status and electrolytes are stable - OliguricFoley inserted and the right nephrostomy tube with little concentrated urine output. Strict I's and O's. Nephrostomy tube in place. ENDO - No history of diabetes or thyroid disease. ICU hyperglycemic protocol HEME - Chronic anemiahowever significant decrease in hemoglobin on presentation of unclear etiology. No evidence of acute blood loss. He is status post transfusi on 1 unit packed cells yesterday. He appears to be close to his baseline. Given his pulmonary infiltrates, pulmonary hemorrhage would be on the differential. Will continue to trend and see how he responds. Does not appear to be a hemolytic process ID - No clear indication for infectious process at this time. Trend fever curve LINES/IV ACCESS - Peripheral IVs DVT PROPHYLAXIS - SCDs, subcu heparin (2) Acute pulmonary edema: (3) COPD (chronic obstructive pulmonary disease): (4) End stage renal disease: (5) Aortic stenosis: (6) HTN (hypertension): (7) CKD (chronic kidney disease), stage V: (8) Prostate cancer: Admission and Anticipated Discharge Date Admission Date: July 04, 2023 Subjective Patient is intubated and sedated Review of Systems Review of Systems: Unobtainable due to endotracheal tube Physical Exam Constitutional: + mechanically ventilated; no acute dist ress Eyes: PERRL, conjunctivae normal, anicteric sclerae ENMT: external ear and nose normal, oropharynx normal Neck: trachea midline, no thyromegaly Respiratory: Crackles auscultated bilaterally in upper and lower lobes. Symmetrical chest wall movement. Mechanically ventilated. Cardiovascular: RRR, no murmur, no edema Heart Sounds: normal S1 and normal S2; no murmur Extremities: no edema Gastrointestinal (Abdomen): normal bowel sounds, soft, nontender, no hepatosplenomegaly Musculoskeletal: no cyanosis or clubbing, extremities motor strength 5/5 Skin: no rashes, warm and dry Neurologic: Unable to assess due to sedation Psychiatric: Unable to assess due to sedation Genitourinary: Indwelling Gamboa catheter present. Right nephrostomy tube with minimal drainage. Results & Data Results & Data Vital Signs (Past 12 Hours) Vital Signs Temp Pulse Pulse Resp BP BP Pulse Ox 07/05/23 06:00 37.3 C 67 20 118/70 97 07/05/23 05:00 37.3 C 66 20 122/64 95 07/05/23 04:00 37.3 C 65 24 126/69 96 07/05/23 04:00 07/05/23 03:32 65 24 96 07/05/23 03:00 37.4 C 38 L 24 127/76 95 07/05/23 02:00 37.4 C 67 24 131/75 94 07/05/23 01:00 37.4 C 63 24 136/74 94 07/05/23 00:00 37.5 C 64 24 124/71 96 07/05/23 00:00 66 07/05/23 00:00 07/04/23 23:00 37.5 C 69 24 118/68 93 07/04/23 23:00 07/04/23 22:00 37.7 C H 69 24 105/59 L 92 07/04/23 21:45 74 24 95 07/04/23 21:00 36.7 C 76 24 127/67 94 07/04/23 20:00 07/04/23 20:00 37.6 C H 74 24 123/68 95 07/04/23 20:00 O2 Del Method O2 Flow Rate FiO2 07/05/23 06:00 Mechanical Vent 30 07/05/23 05:00 Mechanical Vent 30 07/05/23 04:00 Mechanical Vent 30 07/05/23 04:00 30 07/05/23 03:32 30 07/05/23 03:00 Mechanical Vent 30 07/05/23 02:00 Mechanical Vent 30 07/05/23 01:00 Mechanical Vent 30 07/05/23 00:00 Mechanical Vent 30 07/05/23 00:00 07/05/23 00:00 30 07/04/23 23:00 Mechanical Vent 30 07/04/23 23:00 Mechanical Vent 30 07/04/23 22:00 Mechanical Vent 30 07/04/23 21:45 30 07/04/23 21:00 Mechanical Vent 30 07/04/23 20:00 Mechanical Vent 30 07/04/23 20:00 Mechanical Vent 30 07/04/23 20:00 30 Critical Care Results & Data Vital Signs (Past 12 Hours) Vital Signs Temp Pulse Pulse Resp BP BP Pulse Ox 07/05/23 06:00 37.3 C 67 20 118/70 97 07/05/23 05:00 37.3 C 66 20 122/64 95 07/05/23 04:00 37.3 C 65 24 126/69 96 07/05/23 04:00 07/05/23 03:32 65 24 96 07/05/23 03:00 37.4 C 38 L 24 127/76 95 07/05/23 02:00 37.4 C 67 24 131/75 94 07/05/23 01:00 37.4 C 63 24 136/74 94 07/05/23 00:00 37.5 C 64 24 124/71 96 07/05/23 00:00 66 07/05/23 00:00 07/04/23 23:00 37.5 C 69 24 118/68 93 07/04/23 23:00 07/04/23 22:00 37.7 C H 69 24 105/59 L 92 07/04/23 21:45 74 24 95 07/04/23 21:00 36.7 C 76 24 127/67 94 07/04/23 20:00 07/04/23 20:00 37.6 C H 74 24 123/68 95 07/04/23 20:00 O2 Del Method O2 Flow Rate FiO2 07/05/23 06:00 Mechanical Vent 30 07/05/23 05:00 Mechanical Vent 30 07/05/23 04:00 Mechanical Vent 30 07/05/23 04:00 30 07/05/23 03:32 30 07/05/23 03:00 Mechanical Vent 30 07/05/23 02:00 Mechanical Vent 30 07/05/23 01:00 Mechanical Vent 30 07/05/23 00:00 Mechanical Vent 30 07/05/23 00:00 07/05/23 00:00 30 07/04/23 23:00 Mechanical Vent 07/04/23 23:00 Mechanical Vent 07/04/23 22:00 Mechanical Vent 30 07/04/23 21:45 30 07/04/23 21:00 Mechanical Vent 30 07/04/23 20:00 Mechanical Vent 30 07/04/23 20:00 Mechanical Vent 30 07/04/23 20:00 30 Lab & Micro Results (Past 24 Hours) RBC 2.57 M/uL (4.70-6.10) L 07/05/23 WBC 5.40 K/ul (4.8-10.8) 07/05/23 Hgb 8.1 g/dl (14.0-18.0) L 07/05/23 Hct 24.8 % (42.0-52.0) L 07/05/23 MCV 96.5 fL (80.0-100.0) 07/05/23 MCH 31.5 pg (25.0-34.0) 07/05/23 MCHC 32.7 g/dL (32.0-36.0) 07/05/23 RDW Standard Deviation 61.7 fL (36.4-46.3) H 07/05/23 RDW Coefficient of Variation 17.7 % (11.5-14.5) H 07/05/23 Plt Count 148 K/uL (130-400) 07/05/23 MPV 10.1 fL (9.4-12.4) 07/05/23 Neutrophils (%) (Auto) 72.8 % 07/05/23 Lymphocytes (%) (Auto) 15.9 % 07/05/23 Monocytes # (Auto) 0.46 K/uL (0.11-0.59) 07/05/23 Eosinophils # (Auto) 0.09 K/uL (0.00-0.50) 07/05/23 Immature Granulocyte % (Auto) 0.4 % 07/05/23 Neutrophils # (Auto) 3.93 K/uL (1.40-6.50) 07/05/23 Lymphocytes # (Auto) 0.86 K/uL (1.20-3.40) L 07/05/23 Monocytes # (Auto) 0.46 K/uL (0.11-0.59) 07/05/23 Eosinophils # (Auto) 0.09 K/uL (0.00-0.50) 07/05/23 Basophils # (Auto) 0.04 K/uL (0.00-0.20) 07/05/23 Immature Granulocyte # (Auto) 0.02 K/uL (0.01-0.20) 4 Na 137 mmol/L (136-145) 07/05/23 K 4.1 mmol/L (3.5-5.1) 07/05/23 Cl 101 mmol/L (98-107) 07/05/23 CO2 27 mmol/L (21-32) 07/05/23 Anion Gap 9 (3-11) 07/05/23 BUN 29 mg/dl (6-23) H 07/05/23 Creatinine 4.01 mg/dl (0.6-1.4) H 07/05/23 Estimated GFR ( Amer) 15.3 ml/min 07/05/23 Estimated GFR (Non-Af Amer) 13.2 ml/min 07/05/23 BUN/Creatinine Ratio 7.2 (10-20) L 07/05/23 Glu 80 mg/dl (70-99(Fasting)) 07/05/23 Ca 8.7 mg/dl (8.6-10.3) 07/05/23 Total Bilirubin 0.5 mg/dl (0.2-1.0) 07/05/23 AST 15 U/L (13-39) 07/05/23 ALT 12 U/L (7-52) 07/05/23 Alkaline Phosphatase 66 U/L (34-104) 07/05/23 TP 5.8 gm/dl (6.0-8.3) L 07/05/23 Albumin 2.9 gm/dl (3.4-5.0) L 07/05/23 Globulin 2.9 gm/dl (2.5-4.0) 07/05/23 Albumin/Globulin Ratio 1.0 (0.9-2) 07/05/23 Mg 1.9 mg/dl (1.7-2.4) 07/05/23 04:31 Calcium Level 8.7 mg/dl (8.6-10.3) 07/05/23 04:31 Steffen Test Pass 07/05/23 03:46 Microbiology 07/04/23 01:58 Aerobic Blood Culture - Preliminary Blood No growth in Aerobic bottle after 24 hours. Anaerobic Blood Culture - Preliminary No growth in Anaerobic bottle after 24 hours. 07/04/23 00:07 Aerobic Blood Culture - Preliminary Blood No growth in Aerobic bottle after 24 hours. 07/04/23 03:15 Gram Stain - Final Sputum,Vent Suction Diagnostic Findings (Past 24 Hours) Chest X-Ray 07/03/23 23:33 XR chest 1V portable CLINICAL HISTORY: sob TECHNIQUE: Single frontal radiograph of the chest was obtained. Comparison: Comparison is made to chest radiographs June 06, 2023 FINDINGS: Partial visualization of an abdominal tube. Cardiomegaly is noted. The aortic arch is calcified. Vascular prominence and diffuse airspace opacities are seen. Small right pleural effusions are seen. IMPRESSION: Vascular prominence and diffuse airspace opacities may represent alveolar edema with or without superimposed aspiration/pneumonia. ACT 112: Negative or not required by law. Electronically signed by: Pieter Perla M.D. 07/04/2023 8:53 AM I & O Totals 24 Hours 07/04/23 07/05/23 07/06/23 06:59 06:59 06:59 Intake Total 77.733 / 77.733 584.357 / 584.357 29.893 / 29.893 Output Total 125 / 125 305 / 305 Balance -47.267 / -47.267 279.357 / 279.357 29.893 / 29.893 Cumulative 07/03/23 23:14 thru 07/05/23 07:30 Intake Total 691.983 Output Total 430 Balance 261.983 RT Ventilator Mngmt (Last Documented) Ventilator Ordered Settings Ventilator Support Mode Assist Control 07/05/23 04:00 Respiratory Rate 20 07/05/23 06:00 Ventilator Tidal Volume 410 07/05/23 04:00 Setting Minute Ventilation 9 07/05/23 03:32 Positive End Expiratory 5 07/05/23 04:00 Pressure Fraction of Inspired Oxygen 30 07/05/23 06:00 Peak Inspiratory Flow 31 07/04/23 15:05 Machine Comment weaned fi02 to 30% RN aware 07/04/23 11:25 Ventilator - PT Measurements Respiratory Rate 20 Exhaled Tidal Volume 410 Minute Ventilation 9 Peak Inspiratory Airway 28 Pressure Plateau Pressure 18 Respiratory Cycle Inspiratory: 1:2.1 Expiratory Ratio Inspiratory Phase Time 0.80 End-Tidal CO2 29 Static Lung Compliance 31.54 Dynamic Lung Compliance 17.83 Normal Static Lung Compliance 45.00 Coding Level of Care Code 54703 SUB INP/OBS CARE 3/50MIN Diagnoses Acute on chronic respiratory failure with hypoxia and hypercapnia J96.21; J96.22 Acute pulmonary edema J81.0 COPD (chronic obstructive pulmonary disease) J44.1 COPD type: COPD with acute exacerbation End stage renal disease N18.6 Aortic stenosis I35.0 HTN (hypertension) I10 CKD (chronic kidney disease), stage V N18.5 Prostate cancer C61 (3) COPD (chronic obstructive pulmonary disease) COPD type: COPD with acute exacerbation Qualified Code(s): J44.1 - Chronic obstructive pulmonary disease with (acute) exacerbation
--- NOTE | 2023-07-05 09:02 | XRay Report ---
XR chest 1V portable CLINICAL HISTORY: f/u plm edema TECHNIQUE: Single frontal radiograph of the chest was obtained. Comparison: Comparison is made to chest radiograph 07/03/2023 FINDINGS: Interval removal of endotracheal tube. Cardiomegaly is noted. The aortic arch is calcified. Prominenc e and cephalization of the vasculature is seen. Small right pleural effusion. IMPRESSION: 1. Cardiomegaly and mild pulmonary edema. This represents a significant increase from prior exam. 2. Small right pleural effusion. ACT 112: Negative or not required by law. Electronically signed by: Pieter Perla M.D. 07/05/2023 9:01 AM
[2023-07-05 09:51] LABS: HBSAG NON-REACTIVE (NON-REACTIVE); Hepatitis B Surface Ab, Quant 179 mIU/mL (> OR = 10)
[2023-07-05] MEDS ORDERED: SODIUM CHLORIDE 0.9% 1,000 ML IV PRN (10:54)
--- NOTE | 2023-07-05 11:05 | Nephrology Progress Note ---
Date of Service July 05, 2023 Assessment & Plan (1) End stage renal disease: Plan: on TRSa HD as OP. ? if he would do better on HHD > an OP issue w/ pulmonary edema and respiratory failure (02 needs still above baseline) needs aggressive UF, though rarely tolerates > goal 2 L as bp tolerates. 3.5 hrs; 2k bath. AVF >will cut back FR to 1.2 L >plan full tx today mostly d/t cathode washer staffing; eval for short tx tomorrow which he's likely to need volume, anemia mgt, timing of HD d/w Dr Gann; we are in agreement. (2) Acute pulmonary edema: Plan: volume overload in HD > and bleeding; source unclear. >per primary service >no evidence of active bleeding though slow downtrend noted >>for now daily XR >monitor for dialysis needs daily (3) Acute on chronic anemia: Plan: cause of acute drop at admission unclear. no report of large fluid infusions overnight; no recent thoracentesis (06/27 procedure was aborted b/c u/s showed insufficient fluid /no target) hgb was in 6.5 yesterday AM > had 1 unit pRBC on HD; hgb 7.8 this AM. most recent T sat at his facility confirmed by RN is 21%. he is on CARLO at HD despite prostate CA dx per dialysis clinic at [facility] order. >no heparin in HD >20K units of epo again today -transfusions, serial H/H, further eval per primary service Admission and Anticipated Discharge Date Admission Date: July 04, 2023 Subjective seen on mid AM rounds. at bedside. pt tired, denies sob, musculoskeletal or chest pain, no edema. no n/v. and pt w/ many ? about sodium intake Review of Systems 2 Review of Systems: All systems reviewed & are unremarkable except as noted in Subjective Physical Exam 2 Constitutional: well developed, well nourished, + frail appearing and cooperative; no acute distress Eyes: EOM intact bilaterally ENMT: Ears: no external ear abnormality Nose: no external nose abnormality Mouth: + dry oral mucous membranes Neck: no nuchal rigidity Respiratory: normal respiratory effort Auscultation: + diminished lung sounds, + crackles and + wheezes Cardiovascular: RRR, no murmur, no edema Extremities: + AV fistula (L forearm + t/b) Gastrointestinal (Abdomen): Inspection/Auscultation: abdomen normal to inspection (R nephrostomy line/no reservoir) and normal bowel sounds P ercussion/Palpation: abdomen soft; abdomen nontender Musculoskeletal: Extremities: strength 5/5 throughout Skin: no rashes, warm and dry Neurologic: generalized weakness; no tremor, uribe, fluent speech Psychiatric: Orientation: alert and oriented x 3 Results & Data Vital Signs (Past 12 Hours) Vital Signs Temp Pulse Pulse Resp BP BP Pulse Ox 07/05/23 08:30 37.3 C 83 37 H 161/86 H 98 07/05/23 08:00 07/05/23 08:00 37.2 C 82 27 H 100 07/05/23 08:00 152/77 H 07/05/23 08:00 80 07/05/23 07:30 37.3 C 67 25 H 99 07/05/23 07:20 66 21 96 07/05/23 07:08 37.3 C 64 20 96 07/05/23 06:00 37.3 C 67 20 118/70 97 07/05/23 05:00 37.3 C 66 20 122/64 95 07/05/23 04:00 37.3 C 65 24 126/69 96 07/05/23 04:00 07/05/23 03:32 65 24 96 07/05/23 03:00 37.4 C 38 L 24 127/76 95 07/05/23 02:00 37.4 C 67 24 131/75 94 07/05/23 01:00 37.4 C 63 24 136/74 94 07/05/23 00:30 37.5 C 66 24 96 07/05/23 00:00 37.5 C 65 24 95 07/05/23 00:00 37.5 C 64 24 124/71 96 07/05/23 00:00 66 07/05/23 00:00 07/04/23 23:30 37.5 C 76 21 94 07/04/23 23:00 118/68 07/04/23 23:00 37.5 C 68 24 95 07/04/23 23:00 37.5 C 69 24 118/68 93 07/04/23 23:00 O2 Del Method O2 Flow Rate FiO2 07/05/23 08:30 07/05/23 08:00 Nasal Cannula 3 07/05/23 08:00 07/05/23 08:00 07/05/23 08:00 07/05/23 07:30 07/05/23 07:20 30 07/05/23 07:08 07/05/23 06:00 Mechanical Vent 30 07/05/23 05:00 Mechanical Vent 30 07/05/23 04:00 Mechanical Vent 30 07/05/23 04:00 30 07/05/23 03:32 30 07/05/23 03:00 Mechanical Vent 30 07/05/23 02:00 Mechanical Vent 30 07/05/23 01:00 Mechanical Vent 30 07/05/23 00:30 07/05/23 00:00 07/05/23 00:00 Mechanical Vent 30 07/05/23 00:00 07/05/23 00:00 30 07/04/23 23:30 07/04/23 23:00 07/04/23 23:00 07/04/23 23:00 Mechanical Vent 30 07/04/23 23:00 Mechanical Vent 30 Laboratory Results 07/05/23 04:31 07/05/23 04:31 Diagnostic Findings cxr w/ progressive edema
[2023-07-05] MEDS: HEPARIN SOD 5,000 UNIT/0.5 ML VIAL SQ SCH (11:21)
[2023-07-05] MEDS: EPOETIN ALFA 20,000 UNITS/ML VIAL IV ONE (14:39)
--- NOTE | 2023-07-05 15:28 | Hospitalist Progress Note ---
Date of Service July 05, 2023 Assessment & Plan (1) Acute on chronic respiratory failure with hypoxia and hypercapnia: Plan: Acute hypoxemic, hypercapnic respiratory failure Underlying COPD/pulm hypertension/nocturnal hypoxemia Acute pulmonary edema Volume overload ESRD on HD Required intubation on admission Extubated today Volume being managed with HD Acute on chronic anemia Hb dropped from 9.3 on presentation to 6.8 on 07/04/23 Got 1 PRBC with HD on 07/04/23 Hb is stable since No obvious bleed Monitor Troponin elevation Likely due ESRD Was higher (in 1000s) last month Mild Prostate cancer on Lupron Ongoing tobacco abuse DVT prophylaxis. Heparin subcu Full code Patient requests updates providers. Ms. Eliana Padgett, contact number [phone]. I spent a total of 50 minutes coordinating, documenting and providing care for this patient excluding time spent in performance of separately billed services Admission and Anticipated Discharge Date Admission Date: July 04, 2023 Subjective Patient seen and examined Extubated this AM Currently getting HD Reports feeling better Stated he was short of breath at home and that has improved so far Denied any chest pain, cough, nausea, vomiting, abd pain, diarrhea, fever, chills Physical Exam Constitutional: + well hydrated; no acute distress Eyes: PERRL, conjunctivae normal, anicteric sclerae ENMT: external ear and nose normal, oropharynx normal Respiratory: On nasal cannula +crackles. Diminished breath sounds Cardiovascular: S1 S2 Gastrointestinal (Abdomen): normal bowel sounds, soft, nontender, no hepatosplenomegaly Musculoskeletal: No pedal edema Neurologic: PERRL, EOMI, accommodation nl, no face palsy, no dysarthria Psychiatric: A+Ox3, euthymic affect Results & Data Results & Data Vital Signs (Past 12 Hours) Vital Signs Temp Pulse Pulse Resp BP BP Pulse Ox 07/05/23 15:00 75 170/81 H 07/05/23 14:30 78 167/95 H 07/05/23 14:00 75 181/85 H 07/05/23 13:30 75 186/88 H 07/05/23 13:00 75 185/89 H 07/05/23 12:30 77 190/91 H 07/05/23 12:00 78 178/95 H 07/05/23 11:46 37.2 C 77 07/05/23 08:30 37.3 C 83 37 H 161/86 H 98 07/05/23 08:00 07/05/23 08:00 37.2 C 82 27 H 100 07/05/23 08:00 152/77 H 07/05/23 08:00 80 07/05/23 07:30 37.3 C 67 25 H 99 07/05/23 07:20 66 21 96 07/05/23 07:08 37.3 C 64 20 96 07/05/23 06:00 37.3 C 67 20 118/70 97 07/05/23 05:00 37.3 C 66 20 122/64 95 07/05/23 04:00 37.3 C 65 24 126/69 96 07/05/23 04:00 07/05/23 03:32 65 24 96 O2 Del Method O2 Flow Rate FiO2 07/05/23 15:00 07/05/23 14:30 07/05/23 14:00 07/05/23 13:30 07/05/23 13:00 07/05/23 12:30 07/05/23 12:00 07/05/23 11:46 07/05/23 08:30 07/05/23 08:00 Nasal Cannula 3 07/05/23 08:00 07/05/23 08:00 07/05/23 08:00 07/05/23 07:30 07/05/23 07:20 30 07/05/23 07:08 07/05/23 06:00 Mechanical Vent 30 07/05/23 05:00 Mechanical Vent 30 07/05/23 04:00 Mechanical Vent 30 07/05/23 04:00 30 07/05/23 03:32 30 Laboratory Results Abnormal lab results 07/04/23 07/04/23 07/05/23 Range/Units 09:36 21:22 03:46 RBC (4.70-6.10) M/uL Hgb 8.3 L (14.0-18.0) g/dl POC Hgb 7.8 L (14.0-18.0) g/dl Hct 25.2 L (42.0-52.0) % POC Hct 23 L (42-52) % RDW Std Deviation (36.4-46.3) fL RDW Coeff of Stacy (11.5-14.5) % Lymph # (Auto) (1.20-3.40) K/uL POC pH 7.58 H* (7.35-7.45) POC pCO2 28 L (35-46) mmHg POC pO2 59 L (80-95) mmHg POC HCO3 26 H (19-24) jaime/L POC Base Excess 4.0 H (-9-1.8) jaime/L ABG pH (Temp Correct) 7.573 H* (7.35-7.45) ABG pCO2 (Temp Corrct 28 L (35-46) mmHg BUN (6-23) mg/dl Creatinine (0.6-1.4) mg/dl BUN/Creatinine Ratio (10-20) Total Protein (6.0-8.3) gm/dl Albumin (3.4-5.0) gm/dl Crossmatch See Detail 07/05/23 Range/Units 04:31 RBC 2.57 L (4.70-6.10) M/uL Hgb 8.1 L (14.0-18.0) g/dl POC Hgb (14.0-18.0) g/dl Hct 24.8 L (42.0-52.0) % POC Hct (42-52) % RDW Std Deviation 61.7 H (36.4-46.3) fL RDW Coeff of Stacy 17.7 H (11.5-14.5) % Lymph # (Auto) 0.86 L (1.20-3.40) K/uL POC pH (7.35-7.45) POC pCO2 (35-46) mmHg POC pO2 (80-95) mmHg POC HCO3 (19-24) jaime/L POC Base Excess (-9-1.8) jaime/L ABG pH (Temp Correct) (7.35-7.45) ABG pCO2 (Temp Corrct (35-46) mmHg BUN 29 H D (6-23) mg/dl Creatinine 4.01 H D (0.6-1.4) mg/dl BUN/Creatinine Ratio 7.2 L (10-20) Total Protein 5.8 L D (6.0-8.3) gm/dl Albumin 2.9 L (3.4-5.0) gm/dl Crossmatch
[2023-07-05] MEDS: ACETAMINOPHEN 1,000 MG/100 ML VIAL IV PRN (17:23)
[2023-07-06 05:08] LABS: Hematocrit (blood only) 29.5 % (42.0-52.0); Mean Corpuscular Hemoglobin 32.1 pg (25.0-34.0); Mean Corpuscular Hgb Conc 33.9 g/dL (32.0-36.0); Mean Corpuscular Volume 94.6 fL (80.0-100.0); Mean Platelet Volume 10.2 fL (9.4-12.4); Platelet Count 165 K/uL (130-400); RDW Standard Deviation 55.5 fL (36.4-46.3); Red Blood Count 3.12 M/uL (4.70-6.10); White Blood Count 6.06 K/ul (4.8-10.8)
[2023-07-06 05:24] LABS: BUN Creatinine Ratio 7.2 (10-20); Calcium 9.1 mg/dl (8.6-10.3); Creatinine Clr Calc Pharmacy 15.2 ml/min; Est GFR (African American) 18.1 ml/min; Est GFR (Non-African American) 15.6 ml/min; Magnesium 2.1 mg/dl (1.7-2.4); Phosphorus 3.4 mg/dl (2.5-4.9); Potassium 3.8 mmol/L (3.5-5.1)
[2023-07-06] MEDS: FAMOTIDINE 20 MG TAB PO SCH (07:37)
--- NOTE | 2023-07-06 08:24 | Critical Care Progress Note ---
Date of Service July 06, 2023 Assessment & Plan (1) Acute on chronic respiratory failure with hypoxia and hypercapnia: Plan: Reason Critically Ill: 78-year-old male with past medical history significant for ESRD (on hemodialysis), valvular heart disease, COPD, recurrent pleural effusions, presented to the emergency department with altered mental status and hypoxia, and was emergently intubated. Patient now transferred to ICU mechanically ventilated for acute hypoxic and hypercapnic respiratory failure. 24-hour events: Underwent second round of hemodialysis yesterday. Plan for an additional round today. Patient remains hemodynamically stable. He is tolerating a diet at this point. No overnight events noted. Recommendations Neuro - Presented with acute mental status potentially related to hypercapnia. Imaging unrevealing. Successfully extubated. Tolerating diet. Cardiac - Fluid overload status post dialysis with ultrafiltration. Hemodynamically stable. History of pulmonary hypertension which is likely group 2. Volume management per nephrology - 3rd round of HD today. Current exacerbation may have been related to hypertension in the setting of diastolic dysfunction. Respiratory - Acute on chronic hypoxic and hypercapnic respiratory failurepatient with recent admission for pneumothorax following thoracentesis for recurrent pleural effusions. Chest x-ray more consistent with acute CHF/pulmonary edema. Successfully extubated and saturating well on nasal cannula alone. Continue with volume management per HD directed by nephrology. Patient has a history of recurrent pleural effusions and had been undergoing serial thoracentesis through [facility]. No evidence of significant effusions currently and given his prior pneumothorax, would be reluctant to intervene unless they were causing significant respiratory or cardiovascular compromise. GI - Continue H2 lin. Advance diet as tolerated. RENAL/LYTES - ESRD Receives hemodialysis on Monday, , Monday with last session this past Monday when she was reported to have extra volume removed due to fluid overload. Appreciate nephrology assistance. Defer additional renal placement to them. Acid-base status and electrolytes are stable - OliguricFoley inserted and the right nephrostomy tube with little concentrated urine output. Strict I's and O's. Nephrostomy tube in place. UA/Culture from nephrostomy tube shows jaime sensitive Pseudomonas aeruginosa and Gamma strep not enterococcus. Likely colonization at this point. Recent course of fluoroquinolones with persistent bacterial source. Recommend nephrostomy tube exchange. ENDO - No history of diabetes or thyroid disease. ICU hyperglycemic protocol. HEME - Chronic anemia However significant decrease in hemoglobin on presentation of unclear etiology. No evidence of acute blood loss. He is status post transfusion 1 unit packed cells with maintenance of his H&H since. ID - UA/Culture from nephrostomy tube shows jaime sensitive Pseudomonas aeruginosa recently treated with fluoroquinolones. Likely represents colonization. No antibiotics at this point. Recommend nephrostomy tube change. LINES/IV ACCESS - Peripheral IVs DVT PROPHYLAXIS - SCDs, subcu heparin (2) Acute pulmonary edema: (3) COPD (chronic obstructive pulmonary disease): (4) End stage renal disease: (5) Aortic stenosis: (6) HTN (hypertension): (7) CKD (chronic kidney disease), stage V: (8) Prostate cancer: Admission and Anticipated Discharge Date Admission Date: July 04, 2023 Supervising Physician Co-Signing Physician Notes Seen and examined. Discussed on MDR and with bedside CC nurse and CC RAFAELA. Agree with AP as noted. OK to transfer to floor. CC will sign off. Call if ?s Subjective Patient was seen and evaluated at bedside. He is eating his breakfast and appears clinically better than days prior. He reports some soreness in his throat after intubation, but otherwise reports feeling well. Review of Systems Review of Systems: As per HPI Physical Exam Physical Exam: VITAL SIGNS - Vital signs and nursing notes were reviewed. GENERAL - 78-year-old male appearing his stated age who is in no acute distress. Communicates well with provider and answers questions appropriately. SKIN - Without rashes. LUNGS - Chest wall symmetric without accessory muscle use, intercostals retractions, or central cyanosis. Normal vesicular breath sounds CTA B/L. No wheezes, rales, or rhonchi appreciated. CARDIAC - RRR with S1/S2. No murmur, rubs, or gallops appreciated. ABDOMEN - Abdominal contour flat without pulsations or visible masses. BS normoactive all four quadrants. No tenderness, palpable masses, hepatosplenomegaly, or ascites noted. EXTREMITIES - LUE fistula with palpable thrill. No clubbing or peripheral cyanosis. No pretibial edema present. +3/5 radial and dorsalis pedis pulses palpated throughout. +5/5 strength noted in UE/LE bilaterally. NEUROLOGIC - Cranial nerves II through XII grossly intact. PSYCH - A&Ox3 and cooperates fully with examiner. Pt is very pleasant and interacts well with examiner. Results & Data Results & Data Vital Signs (Past 12 Hours) Vital Signs Temp Pulse Pulse Resp BP BP Pulse Ox 07/06/23 08:00 71 07/06/23 06:00 37.1 C 71 22 99 07/06/23 06:00 177/89 H 07/06/23 05:00 37.1 C 65 22 98 07/06/23 05:00 161/79 H 07/06/23 04:00 37.0 C 64 22 97 07/06/23 04:00 163/73 H 07/06/23 03:00 182/85 H 07/06/23 03:00 37.0 C 74 23 99 07/06/23 02:00 161/79 H 07/06/23 02:00 37.0 C 69 22 97 07/06/23 02:00 161/79 H 07/06/23 01:00 37.1 C 69 25 H 98 07/06/23 01:00 162/81 H 07/06/23 00:00 157/79 H 07/06/23 00:00 37.1 C 67 22 99 07/06/23 00:00 65 07/05/23 23:00 37.1 C 66 24 98 07/05/23 23:00 145/72 H 07/05/23 22:00 37.3 C 64 25 H 97 07/05/23 22:00 141/78 H 07/05/23 21:00 37.5 C 66 20 129/74 98 O2 Del Method O2 Flow Rate 07/06/23 08:00 07/06/23 06:00 2 07/06/23 06:00 07/06/23 05:00 2 07/06/23 05:00 07/06/23 04:00 2 07/06/23 04:00 07/06/23 03:00 07/06/23 03:00 2 07/06/23 02:00 07/06/23 02:00 2 07/06/23 02:00 07/06/23 01:00 2 07/06/23 01:00 07/06/23 00:00 07/06/23 00:00 2 07/06/23 00:00 07/05/23 23:00 2 07/05/23 23:00 07/05/23 22:00 2 07/05/23 22:00 07/05/23 21:00 Nasal Cannula 2 Coding Level of Care Code 74599 SUB INP/OBS CARE 3/50MIN Diagnoses Acute on chronic respiratory failure with hypoxia and hypercapnia J96.21; J96.22 Acute pulmonary edema J81.0 COPD (chronic obstructive pulmonary disease) J44.1 COPD type: COPD with acute exacerbation End stage renal disease N18.6 Aortic stenosis I35.0 HTN (hypertension) I10 CKD (chronic kidney disease), stage V N18.5 Prostate cancer C61 (3) COPD (chronic obstructive pulmonary disease) COPD type: COPD with acute exacerbation Qualified Code(s): J44.1 - Chronic obstructive pulmonary disease with (acute) exacerbation
--- NOTE | 2023-07-06 14:16 | Hospitalist Progress Note ---
Date of Service July 06, 2023 Assessment & Plan (1) Acute on chronic respiratory failure with hypoxia and hypercapnia: Plan: Acute hypoxemic, hypercapnic respiratory failure Underlying COPD/pulm hypertension/nocturnal hypoxemia Acute pulmonary edema Volume overload ESRD on HD Required intubation on admission Extubated on 07/05/23 Volume being managed with HD Acute on chronic anemia Hb dropped from 9.3 on presentation to 6.8 on 07/04/23 Got 1 PRBC with HD on 07/04/23 Hb is stable since No obvious bleed Monitor Troponin elevation Likely due ESRD Was higher (in 1000s) last month Mild Prostate cancer on Lupron Ongoing tobacco abuse and patient reported he has appt for 07/19/23 to change nephrostomy tube She stated they will call to see if it can be done earlier DVT prophylaxis. Heparin subcu Full code Downgrade to [place] tele Possible dc tomorrow. Awaiting PT eval Ms. Eliana Padgett, contact number [phone]. I spent a total of 50 minutes coordinating, documenting and providing care for this patient excluding time spent in performance of separately billed services Admission and Anticipated Discharge Date Admission Date: July 04, 2023 Subjective Patient seen and examined. Reports mild cough. Denies any shortness of breath, chest pain, nausea, vomiting, diarrhea Reports feeling better Physical Exam Constitutional: + well hydrated; no acute distress Eyes: PERRL, conjunctivae normal, anicteric sclerae ENMT: external ear and nose normal, oropharynx normal Respiratory: On nasal cannula 2 L/min, normal respiratory effort, chest clear to auscultation Cardiovascular: S1 S2 Gastrointestinal (Abdomen): normal bowel sounds, soft, nontender, no hepatosplenomegaly Musculoskeletal: No pedal edema Neurologic: PERRL, EOMI, accommodation nl, no face palsy, no dysarthria Psychiatric: A+Ox3, euthymic affect Genitourinary: Right nephrostomy tube in situ Results & Data Results & Data Vital Signs (Past 12 Hours) Vital Signs Temp Pulse Pulse Resp BP BP Pulse Ox 07/06/23 12:15 37.0 C 72 149/77 H 07/06/23 12:00 70 136/76 07/06/23 11:30 65 137/76 07/06/23 11:00 65 155/80 H 07/06/23 10:30 67 174/86 H 07/06/23 10:15 78 148/81 H 07/06/23 09:55 36.9 C 73 07/06/23 08:00 07/06/23 08:00 37.1 C 75 27 H 96 07/06/23 08:00 129/86 07/06/23 08:00 71 07/06/23 07:30 07/06/23 07:30 37.2 C 78 21 97 07/06/23 07:00 37.1 C 65 20 99 07/06/23 07:00 177/77 H 07/06/23 06:30 37.1 C 66 22 98 07/06/23 06:00 37.1 C 71 22 99 07/06/23 06:00 177/89 H 07/06/23 05:00 37.1 C 65 22 98 07/06/23 05:00 161/79 H 07/06/23 04:00 37.0 C 64 22 97 07/06/23 04:00 163/73 H 07/06/23 03:00 182/85 H 07/06/23 03:00 37.0 C 74 23 99 O2 Del Method O2 Flow Rate 07/06/23 12:15 07/06/23 12:00 07/06/23 11:30 07/06/23 11:00 07/06/23 10:30 07/06/23 10:15 07/06/23 09:55 07/06/23 08:00 Nasal Cannula 07/06/23 08:00 07/06/23 08:00 07/06/23 08:00 07/06/23 07:30 Nasal Cannula 2 07/06/23 07:30 07/06/23 07:00 07/06/23 07:00 07/06/23 06:30 07/06/23 06:00 2 07/06/23 06:00 07/06/23 05:00 2 07/06/23 05:00 07/06/23 04:00 2 07/06/23 04:00 07/06/23 03:00 07/06/23 03:00 2 Laboratory Results Abnormal lab results 07/05/23 07/06/23 Range/Units 20:49 04:34 RBC 3.12 L (4.70-6.10) M/uL Hgb 10.0 L (14.0-18.0) g/dl Hct 29.5 L (42.0-52.0) % RDW Std Deviation 55.5 H (36.4-46.3) fL RDW Coeff of Stacy 16.0 H (11.5-14.5) % BUN 25 H (6-23) mg/dl Creatinine 3.49 H D (0.6-1.4) mg/dl BUN/Creatinine Ratio 7.2 L (10-20) POC Glucose 103 H (70-99) mg/dl
--- NOTE | 2023-07-06 18:27 | Dialysis Progress Note ---
Date of Service July 06, 2023 Assessment & Plan (1) End stage renal disease: Plan: on TRSa HD as OP. ? if he would do better on HHD > an OP issue w/ pulmonary edema and respiratory failure (02 needs at baseline) needs aggressive UF, though rarely tolerates > goal 2 L as bp tolerates. 3.5 hrs; 2k bath. AVF normally today for shorter tx (d/t nurse staffing) after full tx yesterday >cont FR 1.2L >for 2L UF today w/ 3K bath > on track for this; no heparin >next HD for 07/07 as IP or OP volume, anemia mgt, timing of HD d/w Dr Gann; we are in agreement. (2) Acute pulmonary edema: Plan: volume overload in HD > and bleeding; source unclear. doing better w/ fluid removal >per primary service >no evidence of active bleeding; downtrend reversed now >monitor for dialysis needs daily (3) Acute on chronic anemia: Plan: cause of acute drop at admission unclear. no report of large fluid infusions overnight; no recent thoracentesis (06/27 procedure was aborted b/c u/s showed insufficient fluid /no target) hgb was in 6.5 day of admission AM > had 1 unit pRBC on HD; hgb 7.8 > 10. most recent T sat at his facility confirmed by RN is 21%. he is on CARLO at HD despite prostate CA dx per dialysis clinic at [facility] order. >no heparin in HD >20K units of epo x 2 doses this admission so far -transfusions, serial H/H, further eval per primary service Admission and Anticipated Discharge Date Admission Date: July 04, 2023 Subjective seen on HD at 1145AM. feeling reasonably well he says. no evidence of bleeding. no n/v. tolerating 2L UF goal and nearly at end of tx. Review of Systems 2 Review of Systems: All systems reviewed & are unremarkable except as noted in Subjective Physical Exam 2 Constitutional: well developed, well nourished, + frail appearing and cooperative; no acute distress Eyes: EOM intact bilaterally ENMT: Ears: no external ear abnormality Nose: no external nose abnormality Mouth: + dry oral mucous membranes Neck: no nuchal rigidity Respiratory: normal respiratory effort Auscultation: + diminished lung sounds Cardiovascular: RRR, no murmur, no edema Extremities: + AV fistula (L forearm + t/b) Gastrointestinal (Abdomen): Inspection/Auscultation: abdomen normal to inspection (R nephrostomy line/no reservoir) and normal bowel sounds P ercussion/Palpation: abdomen soft; abdomen nontender Musculoskeletal: Extremities: strength 5/5 throughout Skin: no rashes, warm and dry Psychiatric: Orientation: alert and oriented x 3 Results & Data Vital Signs (Past 12 Hours) Vital Signs Temp Pulse Pulse Resp BP BP Pulse Ox 07/06/23 16:00 75 07/06/23 12:15 37.0 C 72 149/77 H 07/06/23 12:00 70 136/76 07/06/23 11:30 65 137/76 07/06/23 11:00 65 155/80 H 07/06/23 10:30 67 174/86 H 07/06/23 10:15 78 148/81 H 07/06/23 09:55 36.9 C 73 07/06/23 08:00 07/06/23 08:00 37.1 C 75 27 H 96 07/06/23 08:00 129/86 07/06/23 08:00 71 07/06/23 07:30 07/06/23 07:30 37.2 C 78 21 97 07/06/23 07:00 37.1 C 65 20 99 07/06/23 07:00 177/77 H 07/06/23 06:30 37.1 C 66 22 98 O2 Del Method O2 Flow Rate 07/06/23 16:00 07/06/23 12:15 07/06/23 12:00 07/06/23 11:30 07/06/23 11:00 07/06/23 10:30 07/06/23 10:15 07/06/23 09:55 07/06/23 08:00 Nasal Cannula 07/06/23 08:00 07/06/23 08:00 07/06/23 08:00 07/06/23 07:30 Nasal Cannula 2 07/06/23 07:30 07/06/23 07:00 07/06/23 07:00 07/06/23 06:30 Laboratory Results 07/06/23 04:34 07/06/23 04:34
[2023-07-07 06:56] LABS: Hematocrit (blood only) 28.6 % (42.0-52.0); Hemoglobin 9.5 g/dl (14.0-18.0); Mean Corpuscular Hemoglobin 31.6 pg (25.0-34.0); Mean Corpuscular Hgb Conc 33.2 g/dL (32.0-36.0); Platelet Count 167 K/uL (130-400); RDW Coefficient of Variation 15.6 % (11.5-14.5); Red Blood Count 3.01 M/uL (4.70-6.10); White Blood Count 7.92 K/ul (4.8-10.8)
[2023-07-07 07:33] LABS: BUN Creatinine Ratio 7.7 (10-20); Calcium 9.9 mg/dl (8.6-10.3); Creatinine Clr Calc Pharmacy 9.9 ml/min; Est GFR (African American) 13.1 ml/min; Est GFR (Non-African American) 11.3 ml/min; Phosphorus 3.6 mg/dl (2.5-4.9); Potassium 3.8 mmol/L (3.5-5.1)
[2023-07-07 08:37] LABS: Magnesium 2.1 mg/dl (1.7-2.4)
--- NOTE | 2023-07-07 11:38 | Discharge Summary ---
Date of Service July 07, 2023 Admission HPI Per Admitting Provider History obtained from patient family and records. Unable to obtain history from patient secondary to intubated state. Medical history significant for hypertension, mild , pulmonary hypertension, COPD, recurrent right pleural effusion, nocturnal hypoxemia on home O2 at night, ESRD on HD, prostate cancer on Lupron, history of hydronephrosis, chronic anemia (baseline hemoglobin of 8-9), ongoing tobacco abuse. Recent confinement last month for respiratory failure secondary to pulmonary edema and postprocedural pneumothorax. Patient on atenolol discontinued due to bradycardia. Pseudomonas UTI status post Cipro Rx on discharge. Patient with worsening SOB the last few days. Intermittent symptoms. Denies chest pain or unusual cough symptoms as per . Compliant with dialysis treatments. SBP 150s to 160s at home as per . EMS summoned to patient's home last night. O2 sats noted to be 80s as per report. Worsening respiratory distress leading to unresponsiveness on the BiPAP. Patient intubated at the ER. SBP 190s upon arrival at the ER. Lasix and nitro drip administered at the ER. 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 Admission Exam Per Admitting Provider GENERAL: Sedated, intubated, chronically ill SKIN: Pallor, warm HEENT: Alopecia, pale palpebral conjunctivae, no ptosis, dry buccal mucosa, ET in place NECK : Supple, no tenderness CHEST : Decreased breath sounds, bilateral crackles, scattered expiratory wheezes, no chest wall tenderness HEART : RRR, systolic murmur ABDOMEN: no distention, nontender EXTREMITIES : No LE swelling/tenderness, no other conspicuous deformities noted NEUROLOGIC : Sedated, no facial asymmetry, gait and stance not assessed Principal Diagnosis Acute on chronic respiratory failure with hypoxia Acute pulmonary edema Volume overload Acute on chronic anemia Discharge Exam Constitutional + well hydrated; no acute distress Eyes PERRL, conjunctivae normal, anicteric sclerae ENMT external ear and nose normal, oropharynx normal Respiratory On nasal cannula at 2L, chest clear to auscultation Cardiovascular S1 S2 Gastrointestinal (Abdomen) normal bowel sounds, soft, nontender, no hepatosplenomegaly Musculoskeletal No pedal edema Neurologic PERRL, EOMI, accommodation nl, no face palsy, no dysarthria Psychiatric A+Ox3, euthymic affect Discharge Data Allergies Allergy/AdvReac Type Severity Reaction Status Date / Time pantoprazole Allergy Severe EDEMA Verified 07/03/23 23:53 FACE/LIPS/TONGUE latex Allergy Unknown ON Verified 07/04/23 00:00 [employer] LIST Consultations 07/04/23 01:11 Consult Nephrology Routine 07/04/23 01:46 Consult Switchboard Mechanic Routine Ordered Studies 07/03/23 23:35 CT head/brain wo con Stat Hospital Course (1) Acute on chronic respiratory failure with hypoxia and hypercapnia: Acute hypoxemic, hypercapnic respiratory failure Underlying COPD/pulm hypertension/nocturnal hypoxemia Acute pulmonary edema Volume overload ESRD on HD Required intubation on admission Extubated on 07/05/23 Volume being managed with HD Has been on home 2L/min Counseled regarding fluid restriction and low salt diet which he acknowledged he hadn't been keeping FLuid restriction of 1200ml/day Acute on chronic anemia Hb dropped from 9.3 on presentation to 6.8 on 07/04/23 Got 1 PRBC with HD on 07/04/23 Hb is stable since. 9.5 today No obvious bleed Troponin elevation Likely due ESRD Was higher (in 1000s) last month Mild Prostate cancer on Lupron Ongoing tobacco abuse Urine culture grew pansensitive Pseudomonas aeruginosa, Gamma strep not enterococcus. Had also grow pseudomonas last month and completed treatment Likely colonized at this time and patient reported he has appt for 07/19/23 to change nephrostomy tube She stated they will call to see if it can be done earlier Total Time Total Time Spent Total Time Spent (In Minutes): 40 Total Time Includes: Examination of the Patient, Discharge Planning and Medication Reconciliation Discharge Plan Discharge Items Patient Disposition: Home - Self-Care Reason For Visit: RESP FAILURE Discharge Diagnosis: Acute on chronic respiratory failure with hypoxia Acute pulmonary edema Volume overload Acute on chronic anemia Activity: Resume your previous activity Non-emergency contact: Primary Care Provider and In House Cra Call non-emergency contact if: you have any medication questions Follow-up/Referrals: Edgar Gamble MD [Primary Care Provider] - Diet: Dialysis Renal Fluids: 1200ml (5 cups) Addtl Attending Provider Instructions: Mr Rowe You came to the hospital with shortness of breath. You were evaluated and managed for the above listed diagnoses. You were on the ventilator in the ICU briefly. You got a unit of blood. You have improved and being discharged home. Your amlodipine was increased to 10mg daily for now. It is very important you adhere to fluid restriction and low salt diet as we discussed. Please ensure follow up with your family Doctor, In House Cra Please ensure follow up with Interventional Radiology regarding change of your nephrostomy tube as soon as possible. It was a pleasure taking care of you. Pending Studies at Discharge: No Stand-Alone Forms: My [facility], Smoking Cessation Medications and DC Order Prescriptions: Continued calcium acetate(phosphat bind) 667 mg Capsule 1,334 mg PO TIDM Rx Instructions: 2 tablet dose citalopram 10 mg tablet 10 mg PO HS cholecalciferol (vitamin D3) [Vitamin D3] 50 mcg (2,000 unit) Tablet 50 mcg PO DAILY albuterol sulfate [Ventolin HFA] 90 mcg/actuation HFA aerosol inhaler 2 puff INHALATION Q4 PRN (Reason: cough,SOB,wheezing) Gill-Farzana Rx 1-60-300 mg-mg-mcg tablet 1 tab PO DAILY torsemide 100 mg tablet 100 mg PO QAM Lupron Depot (6 Month) 45 mg Syringe Kit 45 mg IM .EVERY 6 MONTHS lorazepam 0.5 mg tablet 0.5 mg PO Q8H PRN (Reason: Anxiety) Incruse Ellipta 62.5 mcg/actuation Blister With Device 1 inh INHALATION DAILY Changed amlodipine 5 mg tablet 10 mg PO QAM Qty: 60 0RF Discharge Orders: Discharge Order (Routine); Ordered 07/07/23 Ordered By: Corazon Gann Admission Data Admit Date/Time: 07/04/23 01:09 Attending Provider: Corazon Gann I. Admit Provider: Tejinder Akhtar Primary Care Provider: Edgar Gamble Other Providers: Varun Reyes; Emilee Souza; Pako Ramos; Caesar Ni; Blul Harry; Ana Tai; Jean Claude Clifton Other Interventions: Discharge Summary Assessment (RN) Last Done: 07/07/23 12:03
== END 2023-07-07 13:27 | disposition home or self-care (01) | DRG 208 ==
LOC: ED 23:26 → SUATTDRO 07-04 01:09 → 1E 07-04 01:09 → 2N 07-06 19:47

== ENCOUNTER 2023-11-17 17:24 | Inpatient (IN) ==
--- NOTE | 2023-11-17 18:18 | XRay Report ---
XR chest 1V not portable CLINICAL HISTORY: Chest pain, nonspecific COMPARISON STUDY: Chest radiograph July 05, 2023. Chest CT February 18, 2022. FINDINGS: There is no pneumothorax. A small right pleural effusion is unchanged. Irregular right basi lar density is again noted. Cardiomegaly is unchanged. There is no evidence for overt pulmonary edema . No new sites of consolidation are present. IMPRESSION: 1. Small right pleural effusion, similar to prior exam. Irregular right basilar density is also simil ar prior study. This may reflect scarring however is indeterminate and radiographic follow-up to ensu re stability is recommended. 2. Cardiomegaly without evidence for pulmonary edema. ACT 112: Negative or not required by law. Electronically signed by: Harvey Johnson M.D. 11/17/2023 6:17 PM
[2023-11-17 18:20] LABS: Basophils # (auto) 0.02 K/uL (0.00-0.20); Basophils % (auto) 0.4 %; Eosinophils # (auto) 0.02 K/uL (0.00-0.50); Eosinophils % (auto) 0.4 %; Hematocrit (blood only) 28.6 % (42.0-52.0); Hemoglobin 9.2 g/dl (14.0-18.0); Immature Granulocytes # (auto) 0.02 K/uL (0.01-0.20); Immature Granulocytes % (auto) 0.4 %; Lymphocytes # (auto) 0.68 K/uL (1.20-3.40); Lymphocytes % (auto) 12.2 %; Mean Corpuscular Hemoglobin 32.3 pg (25.0-34.0); Mean Corpuscular Hgb Conc 32.2 g/dL (32.0-36.0); Mean Corpuscular Volume 100.4 fL (80.0-100.0); Mean Platelet Volume 9.9 fL (9.4-12.4); Monocytes # (auto) 0.37 K/uL (0.11-0.59); Monocytes % (auto) 6.7 %; Neutrophils # (auto) 4.45 K/uL (1.40-6.50); Neutrophils % (auto) 79.9 %; Platelet Count 172 K/uL (130-400); RDW Coefficient of Variation 13.9 % (11.5-14.5); RDW Standard Deviation 50.4 fL (36.4-46.3); Red Blood Count 2.85 M/uL (4.70-6.10); White Blood Count 5.56 K/ul (4.8-10.8)
--- NOTE | 2023-11-17 18:39 | Emergency Department Note ---
Impression & Plan Hypoxia, Anemia, SOB (shortness of breath), COPD exacerbation, Dialysis patient ED Provider Note NAME: BEE GOLDEBRG AGE: 78 SEX: M : 1945 ARRIVES VIA: Walk-In INFORMANT: [Patient][family] ED PROVIDER(S): [Pelon Amos MD] CHIEF COMPLAINT: Shortness of breath HISTORY OF PRESENT ILLNESS: The patient is an 78-year-old male who has lung disease as well as a history of dialysis need. He began having nasal congestion and feeling flulike earlier this week. He missed dialysis on Monday because of how he was feeling. On Monday, he felt a bit short of breath. There has been no fever. The patient went to dialysis yesterday, he went again today. There was concern for his lungs today at dialysis and he went to acute care. There, his O2 saturation was low despite his typical 2 L of oxygen. He was referred to the ER. Patient denies vomiting or diarrhea, he has no chest pain. No known sick contacts. PMHx/PSHx/Social Hx: See Below PHYSICAL EXAM: GENERAL: Patient is in no acute distress. HEENT: No acute trauma, normocephalic atraumatic, mucous membranes moist, no nasal congestion. NECK: No stridor, no adenopathy, no meningismus, trachea is midline. LUNGS: Diminished breath sounds with crackles at both bases. No wheezing. HEART: 2/6 systolic murmur, regular rate and rhythm. ABDOMEN: Soft, nontender, no peritonitis. EXTREMITIES: No cyanosis, full range of motion of all the joints without pain or difficulty. Mild bilateral pedal edema. NEUROLOGIC: Oriented x 3, no acute motor or sensory deficits, no focal weakness. SKIN: No jaundice, no diaphoresis. DIFFERENTIAL DIAGNOSIS: Bronchitis or pneumonia, CHF, anemia, fluid overload, viral illness, among others. EMERGENCY DEPARTMENT PROCEDURES: MEDICAL DECISION MAKING: There is no leukocytosis. The patient is anemic, this is a chronic finding. There is a normal platelet count. No coagulopathy. The patient does have a high creatinine consistent with his dialysis need. No electrolyte abnormality in need of emergent correction. No concerning liver enzyme elevation. ECG shows a sinus rhythm, there is no acute ST elevation. Cardiac enzyme testing is slightly elevated, this has been noted before. Chest x-ray shows some chronic change in the right lower lung. No CHF or obvious pneumonia. Chest CT does not show pneumonia or CHF. COVID, influenza and RSV test were negative. On exam, the patient was hypoxic on his typical 2 L of oxygen. He was wheezing. The patient was given a DuoNeb, a second DuoNeb was given. He was given IV Solu-Medrol. Patient presents hypoxic, wheezing. He appears to have an acute bronchitis that has flared his COPD. Given the hypoxia, given his past history, hospitalization is warranted. I spoke with the patient and case management. The on-call hospitalist was consulted. Prior/Outside records/notes reviewed: Today's note from urgent care describing his low O2 saturations and the need for an ED referral. ECG per my interpretation: Indication was shortness of breath. The ECG shows a normal sinus rhythm with a rate of 92. There are some T wave inversions in the lateral leads. There is no acute ST elevation, no PVCs. The QTc was 497. Compared to an ECG from 03 Jul 2023, I see no significant change. Continuous Cardiac Monitoring per my interpretation: An order was placed for continuous cardiac monitoring. The monitor shows a rate of 97 with normal sinus rhythm. Imaging/x-ray results per my interpretation: Chest x-ray shows a small right pleural effusion and some chronic change of the right lower lung. There was no pneumothorax. I see no CHF. Chronic Medical/Social conditions affecting care: Advanced age, dialysis need. Care/Management discussed with: Case management, the on-call hospitalist. Level of care consideration(s): After review of the information above and other included data: --I believe the patient requires escalation of care to admission DISPOSITION: Admission Past Med/Surg History Problem List (Updated 11/17/23 @ 20:29 by Pelon Amos MD) Dialysis patient (Acute) COPD exacerbation (Acute) SOB (shortness of breath) (Acute) Anemia (Acute) Hypoxia (Acute) Acute on chronic anemia Acute on chronic respiratory failure with hypoxia and hypercapnia Acute pulmonary edema COPD (chronic obstructive pulmonary disease) (Acute) End stage renal disease Aortic stenosis PAT (paroxysmal atrial tachycardia) Premature atrial complexes Bradycardia Hypertensive urgency Acute hypoxemic respiratory failure (Acute) Pulmonary edema (Acute) Pneumothorax (Acute) Demand ischemia Atypical pneumonia Hypoxia Nephrostomy status Pleural effusion (Acute) Acute dyspnea (Acute) Hypoxemia (Acute) Central venous catheter in place Anemia (Chronic) Renal failure (Acute) Chronic kidney disease (Acute) [place] catheter problem (Acute) UTI (urinary tract infection) (Acute) Asymptomatic hypertensive urgency Abnormal urine findings Obstructed nephrostomy tube Bladder stones DVT prophylaxis DNR (do not resuscitate) Encounter for pre-operative examination ESRD (end stage renal disease) on dialysis (Acute) Tobacco use (Chronic) Chronic anemia (Chronic) Chronic indwelling [place] catheter (Chronic) HTN (hypertension) (Chronic) Was treated for hypertensive urgency at [facility] 11/2017 Prostate cancer (Chronic) Currently in remission. On Leupron injections. CKD (chronic kidney disease), stage V (Chronic) DIALYSIS 3 X WEEK [place] PA (TU//SAT) VIA PERMA CATH Hyperkalemia (Acute) On a K restricted diet Urinary retention (Chronic) Bladder stones (Chronic) Medical History AV fistula left arm Permanent central venous catheter in place Surgical History History of surgery PLACEMENT OF NEPHROSTOMY TUBE Family History Other Breast cancer Lung cancer No pertinent family history Stomach cancer Social History Smoking Status: Current every day smoker Tobacco Type: Cigarettes Cigarettes Per Day: 2 packs a week; Second Hand Exposure: No; Do You Dip or Chew Tobacco: No; Hx Alcohol Use: No Hx Substance Use: No Preferred Language: Mauritanian Communication Ability: Unable Communication Ability Comment: Patient is sedated at this time Visual Impairment: No Limitations Fiscal Services Manager Required: No Beliefs That Will Affect Care: None marital status: Current Living Situation: Spouse Current Living Situation Comment: Home Feels Safe at Home: Yes Assistive Devices: Denture - Upper, Denture - Lower, Glasses, Hearing Aid - Bilateral, Oxygen - at Night and Oxygen - Continuous Allergies Allergies Allergy/AdvReac Type Severity Reaction Status Date / Time pantoprazole Allergy Severe EDEMA Verified 07/03/23 23:53 FACE/LIPS/TONGUE latex Allergy Unknown ON Verified 07/04/23 00:00 [facility] MED LIST Home Meds Home Medications Medication Instructions Recorded Confirmed calcium acetate(phosphat bind) 667 1,334 mg PO TIDM 03/02/18 07/03/23 mg capsule citalopram 10 mg tablet 10 mg PO HS 02/17/22 07/03/23 cholecalciferol (vitamin D3) 50 50 mcg PO DAILY 02/18/22 07/03/23 mcg (2,000 unit) tablet (Vitamin D3) albuterol sulfate 90 mcg/actuation 2 puff inhalation Q4 PRN 06/01/23 07/03/23 aerosol inhaler (Ventolin HFA) cough,SOB,wheezing leuprolide acetate (6 month) 45 mg 45 mg IM .EVERY 6 MONTHS 06/01/23 07/03/23 intramuscular syringe kit (Lupron Depot) torsemide 100 mg tablet 100 mg PO QAM 06/01/23 07/03/23 vitamin B comp no.3-folic acid 1 1 tab PO DAILY 06/01/23 07/03/23 mg-vit C 60 mg-biotin 300 mcg tablet (Gill-Farzana Rx) lorazepam 0.5 mg tablet 0.5 mg PO Q8H PRN Anxiety 07/03/23 07/03/23 umeclidinium 62.5 mcg/actuation 1 inh inhalation DAILY 07/03/23 07/03/23 blister powder for inhalation (Incruse Ellipta) Previous Rx's Medication Instructions Recorded amlodipine 5 mg tablet 10 mg (2 x 5 mg) PO QAM #60 tabs 07/07/23 Results & Data (ED) Vital Signs Vital Signs - 24 hr 11/17/23 17:38 11/17/23 17:43 11/17/23 17:52 Temperature 37.1 C Temperature Source Skin Pulse Rate 97 H Pulse Rate [Apical] Pulse Rhythm [Apical] Pulse Strength [Apical] Respiratory Rate 20 Respiratory Effort / Characteristics Non-Labored Spontaneous Short of Breath Spontaneous Short of Breath Respiratory Depth Normal Respiratory Pattern Regular Blood Pressure 143/70 H Blood Pressure [Right Arm] Blood Pressure Mean 94 Blood Pressure Mean [Right Arm] Blood Pressure Position [Right Arm] Pulse Oximetry 86 L 99 Oxygen Delivery Method Nasal Cannula Nasal Cannula Nasal Cannula Oxygen Flow Rate 2 2 3 Sepsis Recent Fever Within 48 Hours No Sepsis New/Unexplained Change in Mental Status N/A Sepsis Action Taken by Nursing No Action Required Oxygen Flow Rate - Titration Pulse Oximetry Post Tiitration 11/17/23 18:06 11/17/23 19:24 11/17/23 19:25 Temperature Temperature Source Pulse Rate 91 H Pulse Rate [Apical] 89 Pulse Rhythm [Apical] Regular Pulse Strength [Apical] Normal Respiratory Rate 19 Respiratory Effort / Characteristics Non-Labored Spontaneous Respiratory Depth Normal Respiratory Pattern Regular Blood Pressure Blood Pressure [Right Arm] 155/94 H Blood Pressure Mean Blood Pressure Mean [Right Arm] 114 Blood Pressure Position [Right Arm] Sitting Pulse Oximetry 2 L 99 Oxygen Delivery Method Nasal Cannula Nasal Cannula Oxygen Flow Rate 3 Sepsis Recent Fever Within 48 Hours Sepsis New/Unexplained Change in Mental Status Sepsis Action Taken by Nursing Oxygen Flow Rate - Titration 4 Pulse Oximetry Post Tiitration 100 11/17/23 19:36 Temperature Temperature Source Pulse Rate Pulse Rate [Apical] Pulse Rhythm [Apical] Pulse Strength [Apical] Respiratory Rate Respiratory Effort / Characteristics Respiratory Depth Respiratory Pattern Blood Pressure Blood Pressure [Right Arm] Blood Pressure Mean Blood Pressure Mean [Right Arm] Blood Pressure Position [Right Arm] Pulse Oximetry 98 Oxygen Delivery Method Aerosol Mask Oxygen Flow Rate 10 Sepsis Recent Fever Within 48 Hours Sepsis New/Unexplained Change in Mental Status Sepsis Action Taken by Nursing Oxygen Flow Rate - Titration Pulse Oximetry Post Tiitration Home Medications Current Medication List: was personally reviewed by me Laboratory Data Attestation: I reviewed the patient's lab results. 11/17/23 17:50 11/17/23 17:50 Lab Results 11/17/23 11/17/23 Range/Units 17:50 17:53 WBC 5.56 (4.8-10.8) K/ul RBC 2.85 L (4.70-6.10) M/uL Hgb 9.2 L (14.0-18.0) g/dl Hct 28.6 L (42.0-52.0) % MCV 100.4 H (80.0-100.0) fL MCH 32.3 (25.0-34.0) pg MCHC 32.2 (32.0-36.0) g/dL RDW Std Deviation 50.4 H (36.4-46.3) fL RDW Coeff of Stacy 13.9 (11.5-14.5) % Plt Count 172 (130-400) K/uL MPV 9.9 (9.4-12.4) fL Immature Gran % (Auto) 0.4 % Neut % (Auto) 79.9 % Lymph % (Auto) 12.2 % [place] % (Auto) 6.7 % Eos % (Auto) 0.4 % Baso % (Auto) 0.4 % Neut # (Auto) 4.45 (1.40-6.50) K/uL Lymph # (Auto) 0.68 L (1.20-3.40) K/uL [place] # (Auto) 0.37 (0.11-0.59) K/uL Eos # (Auto) 0.02 (0.00-0.50) K/uL Baso # (Auto) 0.02 (0.00-0.20) K/uL Immature Gran # (Auto) 0.02 (0.01-0.20) K/uL PT 11.7 (9.0-12.0) Seconds INR 1.1 (0.9-1.1) APTT 30 (21-31) Seconds PTT Ratio 1.1 Sodium 133 L (136-145) mmol/L Potassium 4.3 (3.5-5.1) mmol/L Chloride 91 L (98-107) mmol/L Carbon Dioxide 30 (21-32) mmol/L Anion Gap 12 H (3-11) BUN 39 H (6-23) mg/dl Creatinine 6.19 H* (0.6-1.4) mg/dl Est Cr Clr Drug Dosing 7.7 ml/min Est GFR ( Amer) 9.1 ml/min Est GFR (Non-Af Amer) 7.8 ml/min BUN/Creatinine Ratio 6.3 L (10-20) Glucose 127 H (70-99(Fasting)) mg/dl Calcium 8.8 (8.6-10.3) mg/dl Total Bilirubin 0.6 (0.2-1.0) mg/dl AST 25 (13-39) U/L ALT 21 (7-52) U/L Alkaline Phosphatase 107 H (34-104) U/L Troponin I High Sens 35.0 H (0-20) pg/ml Total Protein 7.8 (6.0-8.3) gm/dl Albumin 4.3 (3.4-5.0) gm/dl Globulin 3.5 (2.5-4.0) gm/dl Albumin/Globulin Ratio 1.2 (0.9-2) SARS-CoV-2 (PCR) NEGATIVE (Negative) Influenza Type A (PCR) Negative (Neg) Influenza Type B (PCR) Negative (Neg) RSV (RT-PCR) Negative (Neg) Administered Medications Discontinued Medications Albuterol (Albut/Ipratrop 3mg/0.5mg Neb 3 Ml Vial) 3 ml NEB NOW STA; Protocol Stop: 11/17/23 18:32 Last Admin: 11/17/23 19:11 Dose: 3 ml Documented By: CAMILA Albuterol (Albut/Ipratrop 3mg/0.5mg Neb 3 Ml Vial) 3 ml NEB NOW STA; Protocol Stop: 11/17/23 20:09 Last Admin: 11/17/23 20:10 Dose: 3 ml Documented By: SALLIE Methylprednisolone (Methylprednisolone 125 Mg/2 Ml Vial) 60 mg IV NOW STA Stop: 11/17/23 18:42 Last Admin: 11/17/23 19:11 Dose: 60 mg Documented By: CAMILA Imaging Data Radiologist's Impression: Chest X-Ray 11/17/23 17:52 XR chest 1V not portable CLINICAL HISTORY: Chest pain, nonspecific COMPARISON STUDY: Chest radiograph July 05, 2023. Chest CT February 18, 2022. FINDINGS: There is no pneumothorax. A small right pleural effusion is unchanged. Irregular right basilar density is again noted. Cardiomegaly is unchanged. There is no evidence for overt pulmonary edema. No new sites of consolidation are present. IMPRESSION: 1. Small right pleural effusion, similar to prior exam. Irregular right basilar density is also similar prior study. This may reflect scarring however is indeterminate and radiographic follow-up to ensure stability is recommended. 2. Cardiomegaly without evidence for pulmonary edema. ACT 112: Negative or not required by law. Electronically signed by: Harvey Johnson M.D. 11/17/2023 6:[address] 11/17/23 18:31 Exam(s): CT CHEST Without Contrast EXAM: CT Chest Without Intravenous Contrast CLINICAL HISTORY: Reason for exam: cough, abnl cxr, low sat. TECHNIQUE: Axial computed tomography images of the chest without intravenous contrast. CTDI is 6.7 mGy and DLP is 237 mGy-cm. Automated exposure control was utilized for the study. A dose lowering technique was utilized adhering to the principles of ALARA. COMPARISON: No relevant prior studies available. FINDINGS: Lungs: Scarring in the right lower lobe and right middle lobe. Emphysematous changes. Calcified granuloma in the right upper lobe. No pneumonia or interstitial edema. Pleural space: No pleural effusion or pneumothorax. Heart: Cardiomegaly. Severe coronary artery calcifications. Bones/joints: No acute findings. Soft tissues: Unremarkable. Vasculature: Unremarkable. Lymph nodes: Unremarkable. Spleen: Calcified granulomas within the spleen. IMPRESSION: 1. Emphysematous changes and scarring at the right lung base. No acute abnormality identified. 2. Cardiomegaly and severe CAD. Electronically signed by: Sin Stoddard MD 11/17/23 19:57 PM Discharge Plan Visit Data Chief Complaint: Shortness of Breath/Dyspnea Stated Complaint: LUNGS ED Provider: Pelon Amos Discharge Problem: Hypoxia, Anemia, SOB (shortness of breath), COPD exacerbation, Dialysis patient Patient Disposition: Admitted As Inpatient Condition: Fair Forms Stand Alone Forms: [employer] Prescriptions Prescriptions: No Action calcium acetate(phosphat bind) 667 mg Capsule 1,334 mg PO TIDM Rx Instructions: 2 tablet dose citalopram 10 mg tablet 10 mg PO HS cholecalciferol (vitamin D3) [Vitamin D3] 50 mcg (2,000 unit) Tablet 50 mcg PO DAILY albuterol sulfate [Ventolin HFA] 90 mcg/actuation HFA aerosol inhaler 2 puff INHALATION Q4 PRN (Reason: cough,SOB,wheezing) Gill-Farzana Rx 1-60-300 mg-mg-mcg tablet 1 tab PO DAILY torsemide 100 mg tablet 100 mg PO QAM Lupron Depot (6 Month) 45 mg Syringe Kit 45 mg IM .EVERY 6 MONTHS lorazepam 0.5 mg tablet 0.5 mg PO Q8H PRN (Reason: Anxiety) Incruse Ellipta 62.5 mcg/actuation Blister With Device 1 inh INHALATION DAILY amlodipine 5 mg tablet 10 mg PO QAM Qty: 60 0RF Referrals Referrals: Edgar Gamble MD [Primary Care Provider] - Discharge Problem: Anemia Qualifiers: Anemia type: unspecified type Qualified Code(s): D64.9 - Anemia, unspecified
[2023-11-17 18:46] LABS: INR 1.1 (0.9-1.1); Partial Thromboplastin Ratio 1.1; Partial Thromboplastin Time 30 Seconds (21-31); Prothrombin Time 11.7 Seconds (9.0-12.0)
[2023-11-17 18:54] LABS: Albumin Globulin Ratio 1.2 (0.9-2); Albumin Level 4.3 gm/dl (3.4-5.0); BUN Creatinine Ratio 6.3 (10-20); Bilirubin,Total 0.6 mg/dl (0.2-1.0); Calcium 8.8 mg/dl (8.6-10.3); Creatinine Clr Calc Pharmacy 7.7 ml/min; Est GFR (African American) 9.1 ml/min; Est GFR (Non-African American) 7.8 ml/min; Globulin 3.5 gm/dl (2.5-4.0); Potassium 4.3 mmol/L (3.5-5.1); Total Protein 7.8 gm/dl (6.0-8.3)
[2023-11-17 19:04] LABS: Influenza A virus by PCR Negative (Neg); Influenza B virus by PCR Negative (Neg); RSV by PCR Negative (Neg); SARS CoV2 RNA(COVID-19) Ceph NEGATIVE (Negative)
[2023-11-17] MEDS: methylPREDNISolone 125 MG/2 ML VIAL IV STA (19:11)
[2023-11-17] MEDS: ALBUT/IPRATROP 3MG/0.5MG NEB 3 ML VIAL NEB STA ×2 (19:11→20:10)
--- NOTE | 2023-11-17 19:57 | CT Scan Report ---
Exam(s): CT CHEST Without Contrast EXAM: CT Chest Without Intravenous Contrast CLINICAL HISTORY: Reason for exam: cough, abnl cxr, low sat. TECHNIQUE: Axial computed tomography images of the chest without intravenous contrast. CTDI is 6.7 mGy and DLP is 237 mGy-cm. Automated exposure control was utilized for the study. A dose lowering technique was utilized adhering to the principles of ALARA. COMPARISON: No relevant prior studies available. FINDINGS: Lungs: Scarring in the right lower lobe and right middle lobe. Emphysematous changes. Calcified granuloma in the right upper lobe. No pneumonia or interstitial edema. Pleural space: No pleural effusion or pneumothorax. Heart: Cardiomegaly. Severe coronary artery calcifications. Bones/joints: No acute findings. Soft tissues: Unremarkable. Vasculature: Unremarkable. Lymph nodes: Unremarkable. Spleen: Calcified granulomas within the spleen. IMPRESSION: 1. Emphysematous changes and scarring at the right lung base. No acute abnormality identified. 2. Cardiomegaly and severe CAD. Electronically signed by: Sin Stoddard MD 11/17/23 19:57 PM
--- NOTE | 2023-11-17 22:16 | History & Physical Report ---
Date of Service November 17, 2023 Assessment & Plan (1) COPD exacerbation: Plan: 78-year-old male with past medical history significant for COPD on home oxygen 2 L, right pleural effusion, hypertension, nonrheumatic aortic valve stenosis, end-stage renal disease on hemodialysis, history of prostate cancer, history of right hydronephrosis, history of bladder stones, chronic anemia, ongoing tobacco abuse comes because of shortness of breath. Patient missed dialysis on Monday because he was not feeling well. Has cough bringing up phlegm. Feeling short of breath. Denies any fevers. No chest pain. No headache. No neck pain. Vision is okay. Somewhat hard of hearing. No runny nose or sore throat. Appetite okay. No nausea no abdominal pain. No diarrhea. Since he missed his dialysis on Monday he had dialysis on and Monday and is planned for dialysis tomorrow . He still makes urine from his right nephrostomy tube. After dialysis has been feeling short of breath and was sent to urgent care. At urgent care his oxygen saturation were low despite being on his home oxygen 2 L and was referred to the ER. Received steroids and breathing treatments in the ER and currently resting comfortably and hemodynamically stable. Shortness of breath Most likely COPD exacerbation Diminished breath sounds and occasional wheezing CT chest no acute findings Ongoing tobacco abuse Received steroids and nebs in the ER Will continue with IV Solu-Medrol 40 mg 3 times daily, DuoNebs [id number] and as needed and p.o. doxycycline Will monitor in med/telemetry End-stage renal disease on hemodialysis Nephrology consult Hypertension On amlodipine, torsemide atenolol was discontinued in the past for bradycardia Chronic anemia Hemoglobin 9.2 around baseline We will follow labs Moderate aortic valve stenosis On echo 02/2023 Follow-up with cardiology Hx of pneumothorax hx of recurrent pleural effusions Hx of prostrate cancer High-grade 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 .Patient on Lupron injections Follows with urology DVT prophylaxis Heparin subcu Disposition Med/telemetry Full code History of Present Illness Chief Complaint: Shortness of breath Primary Care Provider: Edgar Gamble MD 78-year-old male with past medical history significant for COPD on home oxygen 2 L, right pleural effusion, hypertension, nonrheumatic aortic valve stenosis, end-stage renal disease on hemodialysis, history of prostate cancer, history of right hydronephrosis, history of bladder stones, chronic anemia, ongoing tobacco abuse comes because of shortness of breath. Patient missed dialysis on Monday because he was not feeling well. Has cough bringing up phlegm. Feeling short of breath. Denies any fevers. No chest pain. No headache. No neck pain. Vision is okay. Somewhat hard of hearing. No runny nose or sore throat. Appetite okay. No nausea no abdominal pain. No diarrhea. Since he missed his dialysis on Monday he had dialysis on and Monday and is planned for dialysis tomorrow . He still makes urine from his right nephrostomy tube. After dialysis has been feeling short of breath and was sent to urgent care. At urgent care his oxygen saturation were low despite being on his home oxygen 2 L and was referred to the ER. Received steroids and breathing treatments in the ER and currently resting comfortably and hemodynamically stable. Past medical history. As mentioned above Past surgical history. Cystoscopy. IR drainage. ER genitourinary nephro/cystoscopy/ureteral Social history. . Smokes 0.3 packs a day for last 60 years. No alcohol use. No drug use. Family history. Sister had breast cancer. Sister has COPD. Sister has history of lung cancer. Sister has history of parkinsonism. Brother had stomach cancer. Father had COPD. Allergies Allergy/AdvReac Type Severity Reaction Status Date / Time pantoprazole Allergy Severe EDEMA Verified 07/03/23 23:53 FACE/LIPS/TONGUE latex Allergy Unknown ON Verified 07/04/23 00:00 [employer] MED LIST Home Medications Medication Instructions Recorded Confirmed Type albuterol sulfate 90 mcg/actuation 2 puff inhalation Q4H PRN 11/18/23 11/18/23 History aerosol inhaler (Ventolin HFA) Shortness Of Breath Or Wheezing amlodipine 5 mg tablet 5 mg PO DAILY 11/18/23 11/18/23 History citalopram 10 mg tablet 10 mg PO HS 11/18/23 11/18/23 History lorazepam 0.5 mg tablet 0.5 mg PO TID PRN Anxiety 11/18/23 11/18/23 History torsemide 100 mg tablet 100 mg PO DAILY 11/18/23 11/18/23 History vitamin B complex-vitamin C-folic 1 tab PO DAILY 11/18/23 11/18/23 History acid 0.8 mg tablet (Nephro-Farzana) Past Med/Surg History Problem List (Updated 11/17/23 @ 20:29 by Pelon Amos MD) Dialysis patient (Acute) COPD exacerbation (Acute) SOB (shortness of breath) (Acute) Anemia (Acute) Hypoxia (Acute) Acute on chronic anemia Acute on chronic respiratory failure with hypoxia and hypercapnia Acute pulmonary edema COPD (chronic obstructive pulmonary disease) (Acute) End stage renal disease Aortic stenosis PAT (paroxysmal atrial tachycardia) Premature atrial complexes Bradycardia Hypertensive urgency Acute hypoxemic respiratory failure (Acute) Pulmonary edema (Acute) Pneumothorax (Acute) Demand ischemia Atypical pneumonia Hypoxia Nephrostomy status Pleural effusion (Acute) Acute dyspnea (Acute) Hypoxemia (Acute) Central venous catheter in place Anemia (Chronic) Renal failure (Acute) Chronic kidney disease (Acute) Gamboa catheter problem (Acute) UTI (urinary tract infection) (Acute) Asymptomatic hypertensive urgency Abnormal urine findings Obstructed nephrostomy tube Bladder stones DVT prophylaxis DNR (do not resuscitate) Encounter for pre-operative examination ESRD (end stage renal disease) on dialysis (Acute) Tobacco use (Chronic) Chronic anemia (Chronic) Chronic indwelling [place] catheter (Chronic) HTN (hypertension) (Chronic) Was treated for hypertensive urgency at [facility] 11/2017 Prostate cancer (Chronic) Currently in remission. On Leupron injections. CKD (chronic kidney disease), stage V (Chronic) DIALYSIS 3 X WEEK ELENA PALMA (//MON) VIA PERMA CATH Hyperkalemia (Acute) On a K restricted diet Urinary retention (Chronic) Bladder stones (Chronic) Medical History AV fistula left arm Permanent central venous catheter in place Surgical History History of surgery PLACEMENT OF NEPHROSTOMY TUBE Family History Other Breast cancer Lung cancer No pertinent family history Stomach cancer Social History Smoking Status: Current every day smoker Tobacco Type: Cigarettes Cigarettes Per Day: 2 packs a week; Second Hand Exposure: No; Do You Dip or Chew Tobacco: No; Hx Alcohol Use: No Hx Substance Use: No Preferred Language: Russian Communication Ability: Unable Visual Impairment: No Limitations Scientist/Engineer Required: No Beliefs That Will Affect Care: None marital status: Current Living Situation: Spouse Current Living Situation Comment: Home Feels Safe at Home: Yes Assistive Devices: Denture - Upper, Denture - Lower, Glasses, Hearing Aid - Bilateral, Oxygen - at Night and Oxygen - Continuous Review of Systems Review of Systems: All systems reviewed & are unremarkable except as noted in HPI & below Physical Exam Physical Exam: General- Not in acute distress Head- atraumatic Eyes- PERRL. ENT- oropharynx clear Neck- supple, no JVD. Lungs- diminished bilateral breath sounds, mild occasional wheezing, no crackles Heart- regular rate and rhythm; no murmur, no gallop. Abdomen- normal bowel sounds, soft, nontender, no distension, right nephrostomy tube site no erythema or drainage seen Extremities- no pretibial edema, no erythema seen Neuro- alert, oriented ; PERRL, no facial palsy; no dysarthria; moves extremities Results & Data Results & Data Vital Signs (Past 12 Hours) Vital Signs Temp Pulse Pulse Resp BP BP Pulse Ox 11/17/23 21:00 36.9 C 93 H 24 141/80 H 95 11/17/23 19:36 98 11/17/23 19:25 89 19 155/94 H 99 11/17/23 19:24 91 H 11/17/23 18:06 2 L 11/17/23 17:52 99 11/17/23 17:43 11/17/23 17:38 37.1 C 97 H 20 143/70 H 86 L O2 Del Method O2 Flow Rate 11/17/23 21:00 Nasal Cannula 2 11/17/23 19:36 Aerosol Mask 10 11/17/23 19:25 Nasal Cannula 3 11/17/23 19:24 11/17/23 18:06 Nasal Cannula 11/17/23 17:52 Nasal Cannula 3 11/17/23 17:43 Nasal Cannula 2 11/17/23 17:38 Nasal Cannula 2 Diagnostic Findings Laboratory Results WBC 5.56 K/ul (4.8-10.8) 11/17/23 17:50 RBC 2.85 M/uL (4.70-6.10) L 11/17/23 17:50 Hgb 9.2 g/dl (14.0-18.0) L 11/17/23 17:50 Hct 28.6 % (42.0-52.0) L 11/17/23 17:50 MCV 100.4 fL (80.0-100.0) H 11/17/23 17:50 MCH 32.3 pg (25.0-34.0) 11/17/23 17:50 MCHC 32.2 g/dL (32.0-36.0) 11/17/23 17:50 RDW Std Deviation 50.4 fL (36.4-46.3) H 11/17/23 17:50 RDW Coeff of Stacy 13.9 % (11.5-14.5) 11/17/23 17:50 Plt Count 172 K/uL (130-400) 11/17/23 17:50 MPV 9.9 fL (9.4-12.4) 11/17/23 17:50 Immature Gran % (Auto) 0.4 % 11/17/23 17:50 Neut % (Auto) 79.9 % 11/17/23 17:50 Lymph % (Auto) 12.2 % 11/17/23 17:50 [place] % (Auto) 6.7 % 11/17/23 17:50 Eos % (Auto) 0.4 % 11/17/23 17:50 Baso % (Auto) 0.4 % 11/17/23 17:50 Neut # (Auto) 4.45 K/uL (1.40-6.50) 11/17/23 17:50 Lymph # (Auto) 0.68 K/uL (1.20-3.40) L 11/17/23 17:50 [place] # (Auto) 0.37 K/uL (0.11-0.59) 11/17/23 17:50 Eos # (Auto) 0.02 K/uL (0.00-0.50) 11/17/23 17:50 Baso # (Auto) 0.02 K/uL (0.00-0.20) 11/17/23 17:50 Immature Gran # (Auto) 0.02 K/uL (0.01-0.20) 11/17/23 17:50 PT 11.7 Seconds (9.0-12.0) 11/17/23 17:50 INR 1.1 (0.9-1.1) 11/17/23 17:50 APTT 30 Seconds (21-31) 11/17/23 17:50 PTT Ratio 1.1 11/17/23 17:50 Sodium 133 mmol/L (136-145) L 11/17/23 17:50 Potassium 4.3 mmol/L (3.5-5.1) 11/17/23 17:50 Chloride 91 mmol/L (98-107) L 11/17/23 17:50 Carbon Dioxide 30 mmol/L (21-32) 11/17/23 17:50 Anion Gap 12 (3-11) H 11/17/23 17:50 BUN 39 mg/dl (6-23) H 11/17/23 17:50 Creatinine 6.19 mg/dl (0.6-1.4) H* 11/17/23 17:50 Est Cr Clr Drug Dosing 7.7 ml/min 11/17/23 17:50 Est GFR ( Amer) 9.1 ml/min 11/17/23 17:50 Est GFR (Non-Af Amer) 7.8 ml/min 11/17/23 17:50 BUN/Creatinine Ratio 6.3 (10-20) L 11/17/23 17:50 Glucose 127 mg/dl (70-99(Fasting)) H 11/17/23 17:50 Calcium 8.8 mg/dl (8.6-10.3) 11/17/23 17:50 Total Bilirubin 0.6 mg/dl (0.2-1.0) 11/17/23 17:50 AST 25 U/L (13-39) 11/17/23 17:50 ALT 21 U/L (7-52) 11/17/23 17:50 Alkaline Phosphatase 107 U/L (34-104) H 11/17/23 17:50 Troponin I High Sens 32.8 pg/ml (0-20) H 11/17/23 19:49 Total Protein 7.8 gm/dl (6.0-8.3) 11/17/23 17:50 Albumin 4.3 gm/dl (3.4-5.0) 11/17/23 17:50 Globulin 3.5 gm/dl (2.5-4.0) 11/17/23 17:50 Albumin/Globulin Ratio 1.2 (0.9-2) 11/17/23 17:50 SARS-CoV-2 (PCR) NEGATIVE (Negative) 11/17/23 17:53 Influenza Type A (PCR) Negative (Neg) 11/17/23 17:53 Influenza Type B (PCR) Negative (Neg) 11/17/23 17:53 RSV (RT-PCR) Negative (Neg) 11/17/23 17:53 Impressions Chest X-Ray 11/17/23 17:52 XR chest 1V not portable CLINICAL HISTORY: Chest pain, nonspecific COMPARISON STUDY: Chest radiograph July 05, 2023. Chest CT February 18, 2022. FINDINGS: There is no pneumothorax. A small right pleural effusion is unchanged. Irregular right basilar density is again noted. Cardiomegaly is unchanged. There is no evidence for overt pulmonary edema. No new sites of consolidation are present. IMPRESSION: 1. Small right pleural effusion, similar to prior exam. Irregular right basilar density is also similar prior study. This may reflect scarring however is indeterminate and radiographic follow-up to ensure stability is recommended. 2. Cardiomegaly without evidence for pulmonary edema. ACT 112: Negative or not required by law. Electronically signed by: Harvey Johnson M.D. 11/17/2023 6:[address] 11/17/23 18:31 Exam(s): CT CHEST Without Contrast EXAM: CT Chest Without Intravenous Contrast CLINICAL HISTORY: Reason for exam: cough, abnl cxr, low sat. TECHNIQUE: Axial computed tomography images of the chest without intravenous contrast. CTDI is 6.7 mGy and DLP is 237 mGy-cm. Automated exposure control was utilized for the study. A dose lowering technique was utilized adhering to the principles of ALARA. COMPARISON: No relevant prior studies available. FINDINGS: Lungs: Scarring in the right lower lobe and right middle lobe. Emphysematous changes. Calcified granuloma in the right upper lobe. No pneumonia or interstitial edema. Pleural space: No pleural effusion or pneumothorax. Heart: Cardiomegaly. Severe coronary artery calcifications. Bones/joints: No acute findings. Soft tissues: Unremarkable. Vasculature: Unremarkable. Lymph nodes: Unremarkable. Spleen: Calcified granulomas within the spleen. IMPRESSION: 1. Emphysematous changes and scarring at the right lung base. No acute abnormality identified. 2. Cardiomegaly and severe CAD. Electronically signed by: Sin Stoddard MD 11/17/23 19:57 PM ECG Additional Comments: ECG. Normal sinus rhythm at rate of 92. ST and T wave abnormalities in lateral leads. QTc 497. No significant change was found. Code Status & VTE Plan VTE Prophylaxis Plan VTE Prophylaxis will be ordered: Yes
[2023-11-17] MEDS ORDERED: ALBUT/IPRATROP 3MG/0.5MG NEB 3 ML VIAL NEB PRN (22:56)
[2023-11-17] MEDS ORDERED: ACETAMINOPHEN 325 MG TAB PO PRN (22:56)
[2023-11-17] MEDS ORDERED: NITROGLYCERIN SL 0.4 MG/TAB TAB SL PRN (22:56)
[2023-11-17] MEDS ORDERED: POLYETHYLENE (MIRALAX) 17 GM PACK PO PRN (22:56)
[2023-11-17] MEDS: CITALOPRAM 20 MG TAB PO STA (23:39)
[2023-11-17] MEDS: DOXYCYCLINE HYCLATE 100 MG CAP PO STA (23:39)
[2023-11-18] MEDS ORDERED: ALBUTEROL HFA 8 GM INHALER INH PRN (00:21)
[2023-11-18] MEDS ORDERED: LORazepam 0.5 MG TAB PO PRN (00:21)
--- OUTSIDE RECORDS SUMMARY | 2023-11-18 00:50 | External Medical Summary | Summary of Care ---
Author Name Unknown Organization [facility] Address [address] [facility] [place] [address] Phone [phone] Care Team Providers Care Sales Representative Aircraft Name Role Phone Edgar Gibbs MD Primary Care P rovider Encounter Details Date Type Department Care Team (Late st Contact Info) Description 10/24/2023 Result Scan Unspecified Department <No scans attached> Allergies Active Allergy Reactions Criticality Noted Date Comments Latex 07/19/2019 Pantoprazole Sodium Edema face/lips/tongue High 04/0 02/2014 documented as of this encounter (statuses as of 10/31/2023) Medications Medication Sig Dispensed Refills Start Date End Date Status Cholecalciferol 2000 units Capsule Take 1 Capsule by mouth in the morning. 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) ([facility]) take 2 pills 3 x daily 180 Tab 11 10/26/2018 Active Sodium Chloride Flush (NORMAL SALINE FLUSH) 0.9 % SOLN injection FLUSH ONCE DAILY WITH 10ml 300 mL 1 03/12/2019 Active Leuprolide Acetate (3 Month) 22.5 MG Subcutaneous Kit (EliKongregated) Inject 22.5 mg under the skin. Every 3 months 11/18/2020 Active Incruse Ellipta 62.5 MCG/ACT Inhalation Aerosol Powder Breath Activated (umeclidinium Minong)Indications:C hronic obstructive pulmonary disease, unspecified COPD type [...] hours as needed for Anxiety. 30 Tablet 03/15/2023 Active Torsemide 100 MG Oral Tablet (Demadex) Take 1 Tablet by mouth in the morning. 90 Tablet 3 05/11/2023 Active Citalopram Hydrobromide 10 MG Oral Tablet (CeleXA) Take 1 Tablet by mouth every night at bedtime. 30 Tablet 5 05/29/2023 Active amLODIPine Besylate 5 MG Oral Tablet (Norvasc)Indications: 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 (HCC) Take 1 Tablet by mouth in the morning. 90 Tablet 3 09/28/2023 Active documented as of this encounter (statuses as of 10/31/2023) Active Problems Problem Noted Date Diagnosed Date [...] as of this encounter (statuses as of 10/31/2023) Resolved Problems Problem Noted Date Diagnosed Date [...] as of this encounter (statuses as of 10/31/2023) Immunizations Name Administration Dates Next Due COVID-19 mRNA, LNP-s, No Pre serve, 2-Dose Series (Scout) 01/19/2021,06/10/2020,05/20/2020 HEP B - Hepatitis B (Dialysis/Immumocomp Pt) 12/20/2018,07/21/2018,06/19/2018 PPD 05/03/2018 Pneumococcal Conjugate Vacci ne, 20-valent ([id number]) 03/16/2022 Pneumococcal Polysaccharide PPV23 (Pneumovax) 12/28/2017 Seasonal Influenza Virus Vac cine, Unspecified Formulation 12/22/2020,12/28/2018,12/27/2016,01/11 Seasonal Influenza, PF, 6 M & above, IM , (FluLaval or Fluzone) 12/22/2020,12/28/2018,12/27/2016 Seasonal Influenza, Quadriva lent Hd, 65+ Yrs 11/15/2022 Seasonal Influenza, Quadriva lent, No Preserve, IM 01/12/2016,01/06/2015 Seasonal Influenza, Quadriva lent,with Preserve, 3 yr & above, IM 12/04/2021,11/05/2020,11/13/2019,11/22 Seasonal Influenza, Trivalen t, (IIV3), with Preserv, (Fluzone) 12/28/2018,12/27/2016,01/12/2016 TDAP (age 10 and older)(Boostrix) 12/28/2017 [...] have money to get more. Patient declined Childcare Answer Date Recorded Do you feel overwhelmed with taking care of a child, family member or friend? No 06/16/2023 Does your family need help f inding childcare? (Household - for ages 0-17 years) Not on file 06/16/2023 Clothing Answer Date Recorded Have you been unable to get clothing when it was really needed? No 06/16/2023 Is your family able to get c lothes or diapers when needed? (Household - for ages 0-17 years) Not on file 06/16/2023 Personal Safety Answer Date Recorded Do you feel unsafe or have concerns for your saf ety? No 06/16/2023 Do you have concerns for you r family's safety? (Household - for ages 0-17 years) Not on file 06/16/2023 Utilities Answer Date Recorded Do you have trouble paying y our heating, water, or electric bill? No 06/16/2023 Is your family able to pay t he heat, water, or electric bill? (Household - for ages 0-17 years) Not on file 06/16/2023 Does your family have access to good internet? (Household - for ages 0-17 years) Not on file 06/16/2023 Employment Status Answer Date Recorded Are you unemployed or without regular income? No 06/16/2023 Does the household have a re gular source of income? (Household - for ages 0-17 years) Not on file 06/16/2023 Social Connections Answer Date Recorded How often do you feel lonely or isolated from th ose around you? Never 06/16/2023 Financial Resource Strain Answer Date R ecorded Do you have any trouble payi ng for your medications, or do you think you might in the future? No 06/16/2023 Does your family have troubl e paying for medicine? (Household - for ages 0-17 years) Not on file 06/16/2023 Transportation Needs Answer Date Record ed READ ONLY Do you have troubl e getting a ride to medical visits or work? Never True 06/16/2023 Does your family have a hard time getting a ride to doctors visits? (Household - for ages 0-17 years) Not on file 06/16/2023 Has lack of transportation k ept you from medical appointments, meetings, work, or from getting things needed for daily living? Check all that apply. (Adult - for ages 18 years and over) Not on file 06/16/2023 Do you (or your family) have trouble finding or paying for a ride (transportation)? (Household - for ages 0-17 years) Not on file 06/16/2023 Housing Stability Answer Date Recorded Do you currently live in a s helter or have no steady place to sleep at night? No 06/16/2023 READ ONLY Do you think you a re at risk of becoming homeless? No 06/16/2023 Does your family worry about paying for your home or becoming homeless? (Household - for ages 0-17 years) Not on file 0 06/16/2023 Are you homeless or worried that you might be in the future? (Adult - for ages 18 years and over) Not on file Are you (or your family) chelle eless or worried that you might be in the future? (Household - for ages 0-17 years) Not on file Food Insecurity Answer Date Recorded Do you need food for this week? No 06/16/2023 Are you able to get enough f ood for your family? (Household - for ages 0-17 years) Not on file 06/16/2023 Does your family need food t his week? (Household - for ages 0-17 years) Not on file 06/16/2023 Do you always have enough fo od for your family? (Household - for ages 0-17 years) Not on file 06/16/2023 Sex and Gender Information Value Date Recorded [...] Care Team (Late st Contact Info) Description 11/01/2023 12:00 PM EDT Office Visit Pulmonary Medicine, [facility] [address] [facility] [place] [address] Tino Stapleton MD [address] [place] [address] 11/01/2023 2:00 PM EDT Nurse Only Urology, [facility] [address] [facility] [place] [address] [facility] Nurse Urology [facility] [address] [facility] [place] [address] 12/13/2023 2:00 PM EDT Office Visit Cardiology, [facility] [address] [facility] [place] [address] Gris Alford CRNP [address] [facility] [place] [address] 01/10/2024 11:00 AM EST Appointment Interventional Radiology [facility], [facility] 1st Floor [address] [place] [address] 02/26/2024 9:30 AM EST Cardiac Studies Cardiac Studies, [facility] [address] [facility] [place] [address] 03/20/2024 8:30 AM EST Laboratory [facility] [place] [address] [place] [phone] [facility] [address] [place] [address] 03/27/2024 1:50 PM EST Office Visit [address] [phone] Edgar Gibbs MD [address] [place] [address] 04/03/2024 9:30 AM EST Imaging Radiology [address] [facility] [place] [address] 04/10/2024 9:15 AM EST Office Visit Urology, [facility] [address] [facility] [place] [address] Travon Canales MD [address] [place] [address] Health Maintenance Due Date Last Done Comments Adult Wellness Visit 05/18/2009 *COPD SEVERITY VERIFIED BY PFT 03/05/2022 COVID-19 Vaccine ( season) 2023 01/19/2021, 06/10/2020, 05/20/2020 Influenza Vaccine (FLU shot) (#1) 2023 11/15/2022, 12/04/2021, 12/22/2020, Additional history exists Depression Screening 06/15/2024 06/16/2023 DISCUSS TOBACCO CESSATION (REFER TO SMARTSET #3291) 09/24/2024 09/25/2023 (Discussed), 06/03/2022 O2 ASSESSMENT COMPLETED IN PAST YEAR FOR COPD 10/07/2024 10/08/2023 DTap/Tdap Vaccines (2 - Td or Tdap) 12/29/2027 12/28/2017 Hepatitis B Vaccine Completed 12/20/2018, 07/21/2018, 06/19/2018 Pneumococcal Vaccine: 65+ Years Completed 03/16/2022, 12/28/2017 Alpha-1 Antitrypsin Completed 09/18/2023 HPV (Gardasil) Vaccine Aged Out No lo nger eligible based on patient's age to complete this topic MENINGOCOCCAL (MENACTRA/MENVEO) Aged Out No longer eligible based on patient's age to complete this topic Zoster Vaccines Discontinued documented as of this encounter Medical Devices Not on filedocumented as of this encounter Procedures Procedure Name Priority Date/Time Associated Diagnosis Comments OUTSIDE LAB RESULTS 10/24/2023 documented in this encounter Results * OUTSIDE LAB RESULTS (10/24/2023) 10/24/2023 No Physician Data Unknown LABORATORY documented in this encounter Advance Directives * Full Code (Latest Code Status on File) Date Activated Date Inactivated Comments 04/15/2015 4:40 PM 04/16/2015 5:24 PM This order r eflects the patients wishes and were consensually agreed upon. Care Teams Sales Representative Aircraft Relationship Specialty Start Date End Date Edgar Gibbs MD [address] [place] [id number] PCP - General Family Medicine 07/03/20 documented as of this encounter
--- OUTSIDE RECORDS SUMMARY | 2023-11-18 00:50 | External Medical Summary | Summary of Care ---
Author Name Unknown Organization [facility] Address [address] [facility] [place] [address] Phone [phone] Care Team Providers Care Entry Level Manufacturing Engineer Name Role Phone Edgar Gibbs MD Primary Care P rovider Encounter Details Date Type Department Care Team (Late st Contact Info) Description 10/23/2023 7:40 AM EDT Office Visit Pulmonary Medicine, [facility] 132 [facility] [place] [phone] Tino Stapleton MD [address] [facility] [place] [address] Pleural effusion, right* Allergies Active Allergy Reactions Criticality Noted Date Comments Latex 07/19/2019 Pantoprazole Sodium Edema face/lips/tongue High 04/0 02/2014 documented as of this encounter (statuses as of 10/23/2023) Medications Medication Sig Dispensed Refills Start Date End Date Status Cholecalciferol 2000 units Capsule Take 1 Capsule by mouth in the morning. 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) ([facility]) take 2 pills 3 x daily 180 Tab 11 10/26/2018 Active Sodium Chloride Flush (NORMAL SALINE FLUSH) 0.9 % SOLN injection FLUSH ONCE DAILY WITH 10ml 300 mL 1 03/12/2019 Active Leuprolide Acetate (3 Month) 22.5 MG Subcutaneous Kit (Eligard) Inject 22.5 mg under the skin. Every 3 months 11/18/2020 Active Incruse Ellipta 62.5 MCG/ACT Inhalation Aerosol Powder Breath Activated (umeclidinium [place])Indications:C hronic obstructive pulmonary disease, unspecified COPD type [...] as of this encounter (statuses as of 10/23/2023) Active Problems Problem Noted Date Diagnosed Date [...] as of this encounter (statuses as of 10/23/2023) Resolved Problems Problem Noted Date Diagnosed Date [...] as of this encounter (statuses as of 10/23/2023) Immunizations Name Administration Dates Next Due COVID-19 mRNA, LNP-s, No Pre serve, 2-Dose Series (Pfizer) 01/19/2021,06/10/2020,05/20/2020 HEP B - Hepatitis B (Dialysis/Immumocomp Pt) 12/20/2018,07/21/2018,06/19/2018 PPD 05/03/2018 Pneumococcal Conjugate Vacci ne, 20-valent ([id number]) 03/16/2022 Pneumococcal Polysaccharide PPV23 (Pneumovax) 12/28/2017 Seasonal [...] No 06/16/2023 Does the household have a [facility] source of income? (Household - for ages [...] Progress Notes * Tino Stapleton MD - 10/23/2023 7:47 AM EDT The appointment had to be rescheduled due to an extended bathroom emergency necessitating cancellation and rescheduling. documented in this encounter Nursing Notes * Kelsea Alexis LPN - 10/23/2023 7:30 AM EDT Pt for f/u COPD and pleural effusion. documented in this encounter Plan of Treatment Upcoming Encounters Date Type Department Care Team (Late st Contact Info) Description 11/01/2023 2:00 PM EDT Nurse Only Urology, [facility] 132 [facility] [place] [address] Lance Nurse Urology [facility] 132 [facility] [place] [address] 12/13/2023 2:00 PM EDT Office Visit Cardiology, [facility] 132 [facility] [place] [address] Gris Alford CRNP 132 [facility] [place] [address] 01/10/2024 11:00 AM EST Appointment Interventional Radiology [facility], [facility] 1st Floor [address] [place] [address] 02/26/2024 9:30 AM EST Cardiac Studies Cardiac Studies, [facility] [address] [facility] [place] [address] 03/20/2024 8:30 AM EST Laboratory Laboratory Patient Service [facility] [address] [place] [phone] [place], [facility] [address] [place] [address] 03/27/2024 1:50 PM EST Office Visit Family [facility] [address] [place] [phone] Edgar Gibbs MD 68 [place] [address] 04/03/2024 9:30 AM EST Imaging Radiology [facility] 1st [facility] 132 [facility] [place] [address] 04/10/2024 9:15 AM EST Office Visit Urology, [facility] 132 [facility] [place] [address] Travon Canales MD 27 [facility] [place] [address] Health Maintenance Due Date Last Done Comments Adult Wellness Visit 05/18/2009 *COPD SEVERITY VERIFIED BY PFT 03/05/2022 COVID-19 Vaccine ( season) 2022 01/19/2021, 06/10/2020, 05/20/2020 Influenza Vaccine (FLU shot) (#1) 2023 11/15/2022, 12/04/2021, 12/22/2020, Additional history exists Depression Screening 06/15/2024 06/16/2023 DISCUSS TOBACCO CESSATION (REFER TO SMARTSET #8611) 09/24/2024 09/25/2023 (Discussed), 06/03/2022 O2 ASSESSMENT COMPLETED IN PAST YEAR FOR COPD 10/07/2024 10/08/2023 DTaP,Tdap,and Td Vaccines (2 - Td or [...] effusion documented in this encounter Advance Directives * Full Code (Latest Code Status on File) Date Activated Date Inactivated Comments 04/15/2015 4:40 PM 04/16/2015 5:24 PM This order r eflects the patients wishes and were consensually agreed upon. Care Teams Entry Level Manufacturing Engineer Relationship Specialty Start Date End Date Edgar Gibbs MD [address] [place] [id number] PCP - General Family Medicine 07/03/20 documented as of this encounter
--- OUTSIDE RECORDS SUMMARY | 2023-11-18 00:50 | External Medical Summary | Summary of Care ---
Author Name Unknown Organization [facility] Address [address] [facility] [place] [address] Phone [phone] Care Team Providers Care Band Edger Name Role Phone Edgar Gibbs MD Primary Care P rovider Reason for Visit * Reason Comments Nurse Documentation * Precert (Within 30 days (routine)) - Authorized Specialty Diagnoses / Procedures Referred By Cecilia mendieta Referred To Contact Urology Diagnoses Malignant neoplasm of prostate (HCC) Procedures MA LEUPROLIDE ACETATE SUSPNSION Travon Canales MD [address] [place] [address] Travon Canales MD [address] [place] [address] Referral ID Status Reason Start Date Expiration Date V isits Requested Visits Authorized [id number] Authorized Precert 04/13/2023 02/26/2099 [id number] Encounter Details Date Type Department Care Team (Late st Contact Info) Description 11/01/2023 2:00 PM EDT Nurse Only Urology, [facility] [place] [address] [place] [address] Nurse Lance Urology [facility] [address] [place] [address] Nurse Documentation Allergies Active Allergy Reactions Criticality Noted Date Comments Latex 07/19/2019 Pantoprazole Sodium Edema face/lips/tongue High 04/0 02/2014 documented as of this encounter (statuses as of 11/01/2023) Medications Medication Sig Dispensed Refills Start Date [...] Acetate (3 Month) 22.5 MG Subcutaneous Kit ([employer] Inject 22.5 mg under the skin. Every 3 months 11/18/2020 Active Incruse Ellipta 62.5 MCG/ACT Inhalation Aerosol Powder Breath Activated (umeclidinium [place])Indications:C hronic obstructive pulmonary disease, unspecified COPD type ([facility]) Inhale 1 Puff by mouth in the morning. 30 Each 11 03/02/2022 Active Nephro-Farzana 0.8 MG Oral Tablet TAKE ONE TABLET BY MOUTH ONCE DAILY 90 Tablet 3 11/22/2022 Active Ventolin HFA 108 (90 Base) MCG/ACT Inhalation Aerosol SolutionIndications:C OPD exacerbation ([facility]) INHALE TWO PUFFS BY MOUTH [...] kidney disease on dialysis ([facility]) Take 1 Tablet by mouth in the morning. 90 Tablet 3 09/28/2023 Active Hospital, Clinic, or Other Facility Administered Medication Ordered Dose Route Frequency Start Date End Date Status Leuprolide Acetate (6 Month) (Lupron) inj 45 mgIndications:Prostate cancer (HCC) 45 mg IM ONCE 11/01/2023 11/01/2023 Ended documented as of this encounter (statuses as of 11/01/2023) Active Problems Problem Noted Date Diagnosed Date [...] as of this encounter (statuses as of 11/01/2023) Resolved Problems Problem Noted Date Diagnosed Date [...] as of this encounter (statuses as of 11/01/2023) Immunizations Name Administration Dates Next Due COVID-19 mRNA, LNP-s, No Pre serve, 2-Dose Series (Pfizer) 01/19/2021,06/10/2020,05/20/2020 HEP B - Hepatitis B (Dialysis/Immumocomp Pt) 12/20/2018,07/21/2018,06/19/2018 PPD 05/03/2018 Pneumococcal Conjugate Vacci ne, 20-valent ([id number]) 03/16/2022 Pneumococcal Polysaccharide PPV23 (Pneumovax) 12/28/2017 Seasonal [...] Smokeless Tobacco: Never Comments:5 cpd smoker 4. 4-5 cpd smoker. 11/01/23. Alcohol Use Standard Drinks/Week Comments No 0 [...] as of this encounter Progress Notes * Emily Grider LPN - 11/01/2023 12:06 PM EDT Lupron 45 Mg was given IM in LVG. Patient tolerated well. documented in this encounter Plan of Treatment Upcoming Encounters Date Type Department Care Team (Late st Contact Info) Description 12/13/2023 2:00 PM EDT Office Visit Cardiology, [facility] [address] [place] [address] Gris Alford CRNP [address] [place] [address] 01/10/2024 11:00 AM EST Appointment Interventional Radiology [facility] 1st Floor [address] [place], [place] [address] 02/26/2024 9:30 AM EST Cardiac Studies Cardiac Studies, [facility] 132 [facility] [place] [address] 03/20/2024 8:30 AM EST Laboratory Laboratory Patient Service [facility] [address] [place] [phone] [address] 03/27/2024 1:50 PM EST Office Visit [facility] [address] [place] [phone] Edgar Gibbs MD [address] [place] [address] 04/03/2024 9:30 AM EST Imaging Radiology [address] 132 [facility] [place] [address] 04/10/2024 9:15 AM EST Office Visit Urology, [facility] 132 [facility] [place] [address] Travon Canales MD [address] [place] [address] [address] 05/01/2024 12:00 PM EST Office Visit Pulmonary Medicine, [facility] 132 [facility] [place] [address] Tino Stapleton MD [address] [place] [address] Health Maintenance Due Date Last Done Comments Adult Wellness Visit 05/18/2009 *COPD SEVERITY VERIFIED BY PFT 03/05/2022 COVID-19 Vaccine ( season) 2023 01/19/2021, 06/10/2020, 05/20/2020 Influenza Vaccine (FLU shot) (#1) 2023 11/15/2022, 12/04/2021, 12/22/2020, Additional history exists Depression Screening 06/15/2024 06/16/2023 DISCUSS TOBACCO CESSATION (REFER TO SMARTSET #3291) 09/24/2024 09/25/2023 (Discussed), 06/03/2022 O2 ASSESSMENT COMPLETED IN PAST YEAR FOR COPD 10/31/2024 11/01/2023 DTap/Tdap Vaccines (2 - Td or Tdap) [...] 45 mg 45 mg, Intramuscular, ONCE, On Mon11/01/23 at 1345, For 1 dose Given 11/01/2023 1:14 PM EDT 45 mg Ventrogluteal Left documented in this encounter Advance Directives * Full Code (Latest Code Status on File) Date Activated Date Inactivated Comments 04/15/2015 4:40 PM 04/16/2015 5:24 PM This order r eflects the patients wishes and were consensually agreed upon. Care Teams Band Edger Relationship Specialty Start Date End Date Edgar Gibbs MD [address] [place] [address] PCP - General Family Medicine 07/03/20 documented as of this encounter
--- OUTSIDE RECORDS SUMMARY | 2023-11-18 00:50 | External Medical Summary | Summary of Care ---
Author Name Unknown Organization [facility] Address [address] [facility] [place] [address] Phone [phone] Care Team Providers Care Prep Manager Name Role Phone Edgar Clements MD Primary Care P rovider Reason for Visit * Reason Onset Date Comments Medication Refill 11/09/2023 Encounter Details Date Type Department Care Team ([facility] st Contact Info) Description 11/09/[address] [facility] [address] [place] [address] Edgar Clements MD [address] [place] [address] Panic attack as reaction to stress Allergies Active Allergy Reactions Criticality Noted Date Comments Latex 07/19/2019 Pantoprazole Sodium Edema face/lips/tongue High 04/0 02/2014 documented as of this encounter (statuses as of 11/16/2023) Medications Medication Sig Dispensed Refills Start Date End Date Status Cholecalciferol 2000 units Capsule Take 1 Capsule by mouth in the morning. 30 Cap 3 03/28/2017 Active Calcium Acetate, Phos Binder, 667 MG TABSIndications:Ki dney disease, chronic, stage V (GFR under 15 ml/min) ([facility]) take 2 pills 3 x daily 180 Tab 11 10/26/2018 Active Sodium Chloride Flush (NORMAL SALINE FLUSH) 0.9 % SOLN injection FLUSH ONCE DAILY WITH 10ml 300 mL 1 03/12/2019 Active Leuprolide Acetate (3 Month) 22.5 MG Subcutaneous Kit ([employer]) Inject 22.5 mg under the skin. Every 3 months 11/18/2020 Active Incruse Ellipta 62.5 MCG/ACT Inhalation Aerosol Powder Breath Activated (umeclidinium [place])Indication s:Chronic obstructive pulmonary disease, unspecified COPD type [...] OR WHEEZING 18 g 5 01/20/2023 Active Torsemide 100 MG Oral Tablet (Demadex) Take 1 Tablet by mouth in the morning. 90 Tablet 3 05/11/2023 Active Citalopram Hydrobromide 10 MG Oral Tablet (CeleXA) Take 1 Tablet by mouth every night at bedtime. 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 90 Tablet 3 09/28/2023 Active LORazepam 0.5 MG Oral Tablet (Ativan)Indication s:Panic attack as reaction to stress Take 1 Tablet by mouth every 8 hours as needed for Anxiety. 30 Tablet 11/16/2023 Active LORazepam 0.5 MG Oral Tablet (Ativan)Indication s:Panic attack as reaction to stress Take 1 Tablet by mouth every 8 hours as needed for Anxiety. 30 Tablet 03/15/2023 11/09/2023 Discontinue d(Refill) documented as of this encounter (statuses as of 11/16/2023) Active Problems Problem Noted Date Diagnosed Date [...] as of this encounter (statuses as of 11/16/2023) Resolved Problems Problem Noted Date Diagnosed Date [...] as of this encounter (statuses as of 11/16/2023) Immunizations Name Administration Dates Next Due COVID-19 mRNA, LNP-s, No Pre serve, 2-Dose Series (Pfizer) 01/19/2021,06/10/2020,05/20/2020 HEP B - Hepatitis B (Dialysis/Immumocomp Pt) 12/20/2018,07/21/2018,06/19/2018 PPD 05/03/2018 Pneumococcal Conjugate Vacci ne, 20-valent ([id number]) 03/16/2022 Pneumococcal Polysaccharide PPV23 (Pneumovax) 12/28/2017 Seasonal [...] Telephone Encounter - Edgar Clements MD - 11/16/2023 1:49 PM EDTSigned Prescriptions: Disp Refills LORazepam 0.5 MG Oral Tablet (Ativan) 30 Tab*0 Sig: Take 1 Tablet by mouth every 8 hours as needed for Anxiety.Authorizing Provider: EDGAR CLEMENTS-- * Telephone Encounter - Edgar Clements MD - 11/16/2023 1:48 PM EDTSigned Prescriptions: Disp Refills LORazepam 0.5 MG Oral Tablet (Ativan) 30 Tab*0 Sig: Take 1 Tablet by mouth every 8 hours as needed for Anxiety. Authorizing Provider: EDGAR CLEMENTS * Telephone Encounter - Shy Cota PHARM Tech - 11/15/2023 2:50 PM EDT Pt's is calling for a status check. Asking for high priority. Thank you, Teddy Cota, Front End Java Developer Char Filter Tank Tender Head 1 [facility] ([facility]) (Formerly Telepharmacy) 11/15/2023,2:51 PM * Telephone Encounter - Aspen Solitario RP - 11/10/2023 3:43 PM EDTPending Prescriptions: Disp Refills LORazepam 0.5 MG Oral Tablet (Ativan) 30 Tab*0 Sig: Take 1 Tablet by mouth every 8 hours as needed for Anxiety. * Telephone Encounter - Aspen Solitario RP - 11/10/2023 3:42 PM EDT I have reviewed the patients controlled substance dispensing history in the Prescription Drug Monitoring Program in compliance with the [place] regulations before prescribing a controlled substance. PDMP checked on 11/10/2023. Pending Prescriptions: Disp Refills LORazepam 0.5 MG Oral Tablet (Ativan) 30 Tab*0 Sig: Take 1 Tablet by mouth every 8 hours as needed for Anxiety. Last Visit: 09/25/2023 (in office), Visit date not found (telemedicine) Next Visit: 03/27/2024 Date medication was last filled: 03/15/23 Date medication is due for refill: 03/24/23 Pharmacy: [facility] [address] Is this request for a controlled substance? Yes and Urine Drug Screen Not completed Toxicology results: No results found. However, due to the size of the patient record, not all encounters were searched.Please check Results Review for a complete set of results. Please approve if appropriate. Thanks, Aspen Solitario PharmD Clinical Pharmacist Central[facility] Services ([facility]) [phone] 11/10/2023, 3:42 PM * Telephone Encounter - Tiffany Garcia CPhT - 11/09/2023 1:11 PM EDT Did you pend patient's preferred pharmacy and medication before forwarding?yes Pharmacy: [facility] [address] [place] [address] Pending Prescriptions: Disp Refills LORazepam 0.5 MG Oral Tablet (Ativan) 30 Tab*0 Sig: Take 1 Tablet by mouth every 8 hours as needed for Anxiety. Last Visit: 09/25/2023 (in office), Visit date not found (telemedicine) Next Visit: 03/27/2024 If no future appointments scheduled, and last appointment is greater than a year ago, please schedule patient for a follow-up appointment Last date the medication was ordered: 03/15/2023 Is this request for a controlled substance?Yes, What was the last refill date w/ quantity 30 and dosage 0.5 MG and Urine Drug Screen Not completed Urine Drug Screen:No results found. However, due to the size of the patient record, not all encounters were searched. Please check Results Review for a complete set of results. Patient Phone Numbers Labs: Lab Results Component Value Date/Time CREAT 9.2 (H) 11/21/2022 01:37 PM CREAT 4.1 (H) 02/11/2020 12:16 PM POTASSIUM 5.1 11/21/2022 01:37 PM POTASSIUM 3.8 02/11/2020 12:16 PM LDL 56 11/21/2022 01:37 PM LDL 59 04/24/2014 07:42 AM ALT 97 (H) 11/21/2022 01:37 PM ALT 18 09/03/2014 01:20 PM documented in this encounter Plan of Treatment Upcoming Encounters Date Type Department Care Team (Late st Contact Info) Description 12/13/2023 2:00 PM EDT Office Visit Cardiology, [facility] 132 [facility] [place] [address] Gris Alford CRNP 132 [facility] [place] [address] 01/10/2024 11:00 AM EST Appointment Interventional Radiology [facility], [facility] 1st Floor [address] [place] [address] 02/26/2024 9:30 AM EST Cardiac Studies Cardiac Studies, [address] [place] [address] 03/20/2024 8:30 AM EST Laboratory Laboratory Patient Service [address] [phone] [address] 03/27/2024 1:50 PM EST Office Visit [address] [phone] Edgar Clements MD [address] [place] [address] 04/03/2024 9:30 AM EST Imaging Radiology [address] [place] [address] 04/10/2024 9:15 AM EST Office Visit Urology, [address] [place] [address] Travon Canales MD [address] [place] [address] [address] 05/01/2024 12:00 PM EST Office Visit Pulmonary Medicine, [address] [place] [address] Tino Stapleton MD [address] [place] [phone] Health Maintenance Due Date Last Done Comments [...] emotions documented in this encounter Advance Directives * Full Code (Latest Code Status on File) Date Activated Date Inactivated Comments 04/15/2015 4:40 PM 04/16/2015 5:24 PM This order r eflects the patients wishes and were consensually agreed upon. Care Teams Prep Manager Relationship Specialty Start Date End Date Edgar Clements MD [address] [place], [place] [address] [address] PCP - General Family Medicine 07/03/20 documented as of this encounter
--- OUTSIDE RECORDS SUMMARY | 2023-11-18 00:50 | External Medical Summary | Summary of Care ---
Author Name Unknown Organization [facility] Address [address] [facility] [place] [address] Phone [phone] Care Team Providers Care Furnace Keeper Name Role Phone Edgar Gibbs MD Primary Care P rovider Reason for Visit * Reason Comments Follow Up Return pulm. COPD. N o complaints. Denies SOB. Didn't bring his portable oxygen with him today. Didn't feel he needed it. Encounter Details Date Type Department Care Team (Late st Contact Info) Description 11/01/2023 12:00 PM EDT Office Visit Pulmonary Medicine, [facility] 132 [facility] [place] [phone] Tino Stapleton MD [address] [facility] [place] [address] Pleural effusion, right*; Kidney disease, chronic, stage V (GFR under 15 ml/min) ([facility]) Allergies Active Allergy Reactions Criticality Noted [...] (GFR under 15 ml/min) ([facility]) take 2 pills 3 x daily 180 Tab 11 10/26/2018 Active Sodium Chloride Flush (NORMAL SALINE FLUSH) 0.9 % SOLN injection FLUSH ONCE DAILY WITH 10ml 300 mL 1 03/12/2019 Active Leuprolide Acetate (3 Month) 22.5 MG Subcutaneous Kit (Eligard) Inject 22.5 mg under the skin. Every 3 months 11/18/2020 Active Incruse Ellipta 62.5 MCG/ACT Inhalation Aerosol Powder Breath Activated (umeclidinium [place])Indications:C hronic obstructive pulmonary disease, unspecified COPD type ([facility]) Inhale 1 Puff by mouth in the morning. 30 Each 11 03/02/2022 Active Nephro-Farzana 0.8 MG Oral Tablet TAKE ONE TABLET BY MOUTH ONCE DAILY 90 Tablet 3 11/22/2022 Active Ventolin HFA 108 (90 Base) MCG/ACT Inhalation Aerosol SolutionIndications:C OPD exacerbation ([facility]) INHALE TWO PUFFS BY MOUTH EVERY [...] chronic kidney disease on dialysis ([facility]) Take 1 Tablet by mouth in the [...] PPD 05/03/2018 Pneumococcal Conjugate Vacci ne, 20-valent ([id number]) 03/16/2022 Pneumococcal Polysaccharide PPV23 (Pneumovax) 12/28/2017 Seasonal [...] Given: Not Answered Comments:5 cpd smoker 06/14/23. 4-5 cpd smoker. 11/01/23. Alcohol Use Standard [...] Sign Reading Time Taken Comments Blood Pressure 140/72 11/01/2023 11:56 AM EDT Pulse 76 11/01/2023 11:56 AM EDT Temperature 36.4 C (97.6 F) 11/01/2023 11:56 AM E DT Respiratory Rate 16 11/01/2023 11:56 AM EDT Oxygen Saturation 97% 11/01/2023 11:57 AM EDT ra-amb Inhaled Oxygen Concentration - - Weight 57.6 kg (127 lb) 11/01/2023 11:56 AM EDT Height 162.6 cm (5' 4") 11/01/2023 11:56 AM EDT Body Mass Index 21.8 11/01/2023 11:56 AM EDT documented in this encounter Functional [...] Progress Notes * Tino Stapleton MD - 11/01/2023 12:36 PM EDT 11/01/2023 Pulmonary Medicine, [facility] [address] [facility] [place] [phone] Matthew Rowe 1945 male 78 year old Attending Physician Documentation: 78-year-old male, 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 Current bronchodilator regimen includes rare use of Ventolin inhaler. Denies purulent expectoration, high-grade fever, hemoptysis. Describes chronic fatigue and tiredness, relates to ESRD/HD status. Compliant with home oxygen therapy use. Chest x-ray 09/15/2023 was reviewed and compared with 05/17/2023. Right pleural effusion is significantly resolved. CT chest 09/27/2023 shows trace right pleural effusion with calcified granulomatous changes within right lung and right basilar atelectasis, unchanged from baseline. Left mid lung and right apical ? Nodular densities were also visible on 05/17/2023 (reading at thatpoint was focused on right pleural effusion and did not describe these changes). No significant new changes. Continued clinical monitoring recommended. Physical examination significant for class 2 throat, right basilar dullness with egophony, scattered wheezing, loud systolic murmur, trace lower extremity edema and left upper extremity AV fistula status along with nonlateralizing Neuro examination. Pleural fluid cytology chemistry and microbiology results were reviewed. Overall pleural fluid pattern is consistent with lymphocytic exudative fluid with negative cultures and cytology suggestive ofreactive mesothelial cells. Benign asbestos pleural effusions (BAPE), no recurrence of right pleural effusion since May 2023 2 L nasal cannula oxygen set up with activity will be continued. Patient was advised to maintain physical activity status Patient be followed up in 4 weeks to reassess symptoms status post placement of PleurX catheter. 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 G thoracentesis by IR Lymphocytic exudative pleural fluid profile with negative cytopathology for malignancy. Current BD Rx: Ventolin MDI Plan: Improved CT Chest 08/2023, trace Right basilar atelectasis and trace Rt pleural effusion Repeat CT Chest x 6 months Smoking cessation counseling Continue using O2 2 L with activity setup F/u 6 month Follow Up: Return in about 6 months (around 04/30/2024) for Clinic Visit. 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 G thoracentesis by IR Lymphocytic exudative pleural fluid profile with negative cytopathology for malignancy. Current BD Rx: Breanna CRUZ Plan: Improved CT Chest 08/2023, trace Right basilar atelectasis and trace Rt pleural effusion R Follow Up: Return in about 6 months (around 04/30/2024) for Clinic Visit. | For: Clinic Visit | Check-out note: epeat CT Chest x 6 months Smoking cessation counseling O2 2 L with activity setup F/u 6 month Tino Stapleton MD Subjective CC: Chief Complaint Patient presents with Follow Up Return pulm. COPD. No complaints. Denies SOB. Didn't bring his portable oxygen with him today. Didn't feel he needed it. HPI: Nursing Notes: Romelia Clarke LPN 11/01/23 1202 Signed Chief Complaint Patient presents with Follow Up Return pulm. COPD. No complaints. Denies SOB. Didn't bring his portable oxygen with him today. Didn't feel he needed it. Interm History/Respiratory Symptoms Cough: yes- clear phlegm in the morning Hemoptysis: no Sinus Symptoms: no Hospitalizations: no ED Trips: no Triggers: dust,grass, pollen Nocturnal: sleeps with one pillow under his head at night CPAP/BiPAP/O2: O2 5-10 minutes before bed 2 L. DME Supplier: [employer]. Flu Vaccine: 2022 Pneumovax: 2018 Prevnar: 2023 COVID 19: x3. MMRC Dyspnea Scale = 2 (On level ground, I walk slower than people of the same age because of breathlessness or have to stop for breath when walking at my own) Travel Screening Question 11/01/2023 11:47 AM EDT - Filed by Patient Do you have any of the following new or worsening symptoms? None of these Have you recently been in contact with someone who was sick? No / Unsure Myc Visit Accident Related Question Question 11/01/2023 11:47 AM EDT - Filed by Patient Is this visit related to an accident? (i.e work, motor vehicle) No Mmrc Cat Question 11/01/2023 11:55 AM EDT - Filed by Romelia Clarke LPN When do you become breathless? (2) On level ground, I walk slower than people of the same age because of breathlessness or have to stop for breath when walking at my own pace How frequently do you cough? (2) Do you have phlegm in your chest? (2) Is your chest tight? (0) - My chest does not feel tight at all How breathless do you become when walking up a hill or steps? (3) How limited are you doing activities at home? (0) - I am not limited doing any activities at home How confident are you leaving home with your lung condition? (0) - I am confident leaving my home despite my condition How soundly do you sleep? (2) How much energy do you have? (2) Total MMRC Score (range: 0 - 4) 2 Total CAT Score (range: 0 - 40) 11 Objective Filed Vitals: 11/01/23 1156 11/01/23 1157 BP: 140/72 Pulse: 76 Resp: 16 Temp: 36.4 C (97.6 F) TempSrc: Tympanic SpO2: 76% 97% Weight: 57.6 kg (127 lb) Height: 1.626 m (5' 4") Exam: Const: No signs of acute distress [...] the patient: IR GENITORINARY NEPHRO/CYSTO/URETERAL Result Date: 10/10/2023 IMPRESSION: Successful right nephroureteral catheter salvage and exchange. PLAN: Patient should return to IR in 3 months for routine maintenance catheter exchange. I have personally reviewed this examination and agree with the resident/fellow physician's interpretation. CT CHEST WO CONTRAST Result Date: 10/02/2023 IMPRESSION: 1. Significantly improved aeration compared to previous with decreasing right basilar consolidation likely representing scarring 2. Small residual right pleural effusion significant decreased from previous 3. Large granuloma in the right upper lung 4. Extensive chronic changes of the lung parenchyma without definite dominant other nodule identified. The previously seen nodules on chest x-ray likely represent overlap of shadows and chronic change. Given the presence of these chronic changes however continued follow-up recommended to establish long-term stability. THIS DOCUMENT HAS BEEN ELECTRONICALLY SIGNED BY GHULAM REYES MD XR CHEST 2 VIEWS Result Date: 09/15/2023 IMPRESSION 1. Airspace opacity in the left mid lung. 2. Question nodular densities, for which CT thorax is recommended. 3. Small right pleural effusion. IR GENITORINARY NEPHRO/CYSTO/URETERAL Result Date: 07/19/2023 IMPRESSION: Right nephroureteral catheter check and exchange. PLAN: Patient should return to IR in 3 months for routine maintenance catheter exchange. I have personally reviewed this examination and agree with the resident/fellow physician's interpretation. IR CHEST THORACENTESIS Result Date: 06/30/2023 IMPRESSION: Aborted thoracentesis. PLAN: Follow-up as needed for repeat thoracentesis for symptom management. IR CHEST THORACENTESIS Result Date: 06/01/2023 IMPRESSION: Successful ultrasound-guided right thoracentesis. PLAN: Fluid sent to lab for analysis.Final results pending. Follow-up as needed for repeat thoracentesis for symptom management. XR CHEST 2 VIEWS Result Date: 05/18/2023 IMPRESSION Persistent right pleural effusion. Available Radiologic data was reviewed by me in PACS. The images were shown to the patient and findings were discussed with the patient. HOME MEDICATIONS: amLODIPine Besylate 5 MG Oral Tablet (Norvasc) Citalopram Hydrobromide 10 MG Oral Tablet (CeleXA) Torsemide 100 MG Oral Tablet (Demadex) LORazepam 0.5 MG Oral Tablet (Ativan) Ventolin HFA 108 (90 Base) MCG/ACT Inhalation Aerosol Solution Nephro-Farzana 0.8 MG Oral Tablet Incruse Ellipta 62.5 MCG/ACT Inhalation Aerosol Powder Breath Activated (umeclidinium [place]) Leuprolide Acetate (3 Month) 22.5 MG Subcutaneous [...] Diagnosis Date Hypertension, essential INFORMATION 03/2014 [facility]- kidney failure Pleural effusion Use of leuprolide acetate (Lupron) Past Surgical History: Procedure Laterality Date CYSTOSCOPY 07-08-2014 IR DRAINAGE CATHETER CHANGE Right 06/10/2015 CHANGE OF PERCUTANEOUS TUBE OR DRAINAGE CATHETER WITH XRAY AND CONTRAST MEDIUM performed by Gera Mcdaniel MD at [facility] [place] IR DRAINAGE CATHETER CHANGE Right 08/24/2016 CHANGE OF PERCUTANEOUS TUBE OR DRAINAGE CATHETER WITH XRAY AND CONTRAST MEDIUM performed by Gera Mcdaniel MD at [facility] [place] IR GENITORINARY NEPHRO/CYSTO/URETERAL 01/18/2019 IR GENITORINARY NEPHRO/CYSTO/URETERAL 04/01/2019 IR GENITORINARY NEPHRO/CYSTO/URETERAL 08/02/2019 IR GENITORINARY NEPHRO/CYSTO/URETERAL 12/13/2019 IR GENITORINARY NEPHRO/CYSTO/URETERAL 04/29/2020 IR GENITORINARY NEPHRO/CYSTO/URETERAL 08/19/2020 IR GENITORINARY NEPHRO/CYSTO/URETERAL 12/23/2020 IR GENITORINARY NEPHRO/CYSTO/URETERAL 04/14/2021 IR GENITORINARY NEPHRO/CYSTO/URETERAL 08/04/2021 IR GENITORINARY NEPHRO/CYSTO/URETERAL 12/10/2021 IR GENITORINARY NEPHRO/CYSTO/URETERAL 04/06/2022 IR GENITORINARY NEPHRO/CYSTO/URETERAL 08/15/2022 IR GENITORINARY NEPHRO/CYSTO/URETERAL 01/04/2023 IR GENITORINARY NEPHRO/CYSTO/URETERAL 04/19/2023 IR GENITORINARY NEPHRO/CYSTO/URETERAL 07/19/2023 IR GENITORINARY NEPHRO/CYSTO/URETERAL 10/08/2023 NONE Social History Socioeconomic History Marital status: Occupational History 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 4-5 cpd smoker. 11/01/23. Vaping Use Vaping status: Never Used Substance and Sexual Activity Alcohol use: No Drug use: No Social History Narrative No pets. No mold. Social Determinants of Health Financial Resource Strain: Low Risk (06/16/2023) Financial Resource Strain Do you have any trouble paying for your medications, or do you think you might in the future? (Adult - for ages 18 years and over): No Food Insecurity: No Food Insecurity (06/16/2023) Food Insecurity Do you need food for this week? (Adult - for ages 18 years and over): No Transportation Needs: No Transportation Needs (06/16/2023) Transportation Needs Do you have trouble getting a ride to medical visits or work? (Adult - for ages 18 years and over):Never True Social Connections: Socially Integrated (06/16/2023) Social Connections How often do you feel lonely or isolated from those around you? (Adult - for ages 18 years and over): Never Housing Stability: Low Risk (06/16/2023) Housing Stability Do you currently live in a assisted or have no steady place to sleep at night? (Adult - for ages 18 years and over): No Do you think you are at risk of becoming homeless? (Adult - for ages 18 years and over): No Family History Problem Relation Name Age of Onset Stomach cancer Mother in her 80s COPD Father age 64 Parkinsonism Sister Margarita Lung cancer Sister Mary Breast Cancer Sister Caroline breast Other (AAA) Sister Daphney Parkinsonism Sister Gay COPD Sister Gay Heart attack Brother Review of patient's allergies indicates: Allergen Reactions Pantoprazole Sodium Edema face/lips/tongue Latex documented in this encounter Nursing Notes * Romelia Clarke LPN - 11/01/2023 11:58 AM EDT Chief Complaint Patient presents with Follow Up Return pulm. COPD. No complaints. Denies SOB. Didn't bring his portable oxygen with him today. Didn't feel he needed it. Interm History/Respiratory Symptoms Cough: yes- clear phlegm in the morning Hemoptysis: no Sinus Symptoms: no Hospitalizations: no ED Trips: no Triggers: dust,grass, pollen Nocturnal: sleeps with one pillow under his head at night CPAP/BiPAP/O2: O2 5-10 minutes before bed 2 L. DME Supplier: [employer]. Flu Vaccine: 2022 Pneumovax: 2018 Prevnar: 2022 COVID 19: x3. MMRC Dyspnea Scale = 2 (On level ground, I walk slower than people of the same age because of breathlessness or have to stop for breath when walking at my own) Travel Screening Question 11/01/2023 11:47 AM EDT - Filed by Patient Do you have any of the following new or worsening symptoms? None of these Have you recently been in contact with someone who was sick? No / Unsure Myc Visit Accident Related Question Question 11/01/2023 11:47 AM EDT - Filed by Patient Is this visit related to an accident? (i.e work, motor vehicle) No Mmrc Cat Question 11/01/2023 11:55 AM EDT - Filed by Romelia Clarke LPN When do you become breathless? (2) On level ground, I walk slower than people of the same age because of breathlessness or have to stop for breath when walking at my own pace How frequently do you cough? (2) Do you have phlegm in your chest? (2) Is your chest tight? (0) - My chest does not feel tight at all How breathless do you become when walking up a hill or steps? (3) How limited are you doing activities at home? (0) - I am not limited doing any activities at home How confident are you leaving home with your lung condition? (0) - I am confident leaving my home despite my condition How soundly do you sleep? (2) How much energy do you have? (2) Total MMRC Score (range: 0 - 4) 2 Total CAT Score (range: 0 - 40) 11 documented in this encounter Plan of Treatment Upcoming Encounters Date Type Department Care Team (Late st Contact Info) Description 12/13/2023 2:00 PM EDT Office Visit [facility], [facility] [place] [address] Gris Alford CRNP 132 [facility] [place] [address] 01/10/2024 11:00 AM EST Appointment Interventional Radiology [facility] [place], [facility] 1st Floor [address] [place] [id number] 02/26/2024 9:30 AM EST Cardiac Studies Cardiac Studies, [facility] 132 [place] [address] 03/20/2024 8:30 AM EST Laboratory Laboratory Patient Service [address] [phone] [address] 03/27/2024 1:50 PM EST Office Visit [address] [phone] Edgar Gibbs MD [address] [place] [address] 04/03/2024 9:30 AM EST Imaging Radiology [address] 132 [facility] [place] [address] 04/10/2024 9:15 AM EST Office Visit Urology, [facility] [address] [facility] [place] [address] Travon Canales MD [address] [place] [address] [address] 05/01/2024 12:00 PM EST Office Visit Pulmonary Medicine, [facility] 132 [facility] [place] [address] Tino Stapleton MD [address] [place] [address] Health Maintenance Due Date Last Done Comments [...] Pleural effusion, right- Primary Unspecified pleural effusion Kidney disease, chronic, stage V (GFR under 15 ml/min) ([facility]) Chronic kidney disease, Stage V documented in this encounter Advance Directives * Full Code (Latest Code Status on File) Date Activated Date Inactivated Comments 04/15/2015 4:40 PM 04/16/2015 5:24 PM This order r eflects the patients wishes and were consensually agreed upon. Care Teams Furnace Keeper Relationship Specialty Start Date End Date Edgar Gibbs MD [address] [place], [place] [address] [address] PCP - General Family Medicine 07/03/20 documented as of this encounter
--- OUTSIDE RECORDS SUMMARY | 2023-11-18 00:50 | External Medical Summary | Summary of Care ---
Author Name Unknown Organization [facility] Address [address] [facility] [place] [address] Phone [phone] Care Team Providers Care Test Eng Name Role Phone Edgar Gibbs MD Primary Care P rovider Encounter Details Date Type Department Care Team (Late st Contact Info) Description 11/09/2023 Result Scan Unspecified Department <No scans attached> Allergies Active Allergy Reactions Criticality Noted Date Comments Latex 07/19/2019 Pantoprazole Sodium Edema face/lips/tongue High 04/0 02/2014 documented as of this encounter (statuses as of 11/13/2023) Medications Medication Sig Dispensed Refills Start Date [...] Acetate (3 Month) 22.5 MG Subcutaneous Kit (EliAudiolifed) Inject 22.5 mg under the skin. Every 3 months 11/18/2020 Active Incruse Ellipta 62.5 MCG/ACT Inhalation Aerosol Powder Breath Activated (umeclidinium [place])Indications:C hronic obstructive pulmonary disease, unspecified COPD type [...] as of this encounter (statuses as of 11/13/2023) Active Problems Problem Noted Date Diagnosed Date [...] as of this encounter (statuses as of 11/13/2023) Resolved Problems Problem Noted Date Diagnosed Date [...] as of this encounter (statuses as of 11/13/2023) Immunizations Name Administration Dates Next Due COVID-19 mRNA, LNP-s, No Pre serve, 2-Dose Series (PointBurst) 01/19/2021,06/10/2020,05/20/2020 HEP B - Hepatitis B (Dialysis/Immumocomp Pt) 12/20/2018,07/21/2018,06/19/2018 PPD 05/03/2018 Pneumococcal Conjugate Vacci ne, 20-valent ([id number]) 03/16/2022 Pneumococcal Polysaccharide PPV23 (Pneumovax) 12/28/2017 Seasonal [...] 06/16/2023 Does the household have a re lar source of income? (Household - for ages [...] 12/13/2023 2:00 PM EDT Office Visit Cardiology, [facility] 132 [facility] [place] [address] Gris Alford CRNP 132 [facility] [place] [address] 01/10/2024 11:00 AM EST Appointment Interventional Radiology [facility] [place] 1st Floor [address] [place] [address] 02/26/2024 9:30 AM EST Cardiac Studies Cardiac Studies, [facility] 132 [facility] [place] [address] 03/20/2024 8:30 AM EST Laboratory Laboratory Patient Service [address] [phone] [address] 03/27/2024 1:50 PM EST Office Visit [address] [phone] Edgar Gibbs MD [address] [place] [address] 04/03/2024 9:30 AM EST Imaging Radiology [address] 132 [facility] [place] [address] 04/10/2024 9:15 AM EST Office Visit Urology, [facility] 132 [facility] [place] [address] Travon Canales MD [address] [place] [address] [address] 05/01/2024 12:00 PM EST Office Visit Pulmonary Medicine, [facility] [address] [place] [address] Tino Stapleton MD [address] [place] [phone] Health Maintenance Due Date Last Done Comments [...] Date/Time Associated Diagnosis Comments OUTSIDE LAB RESULTS 11/09/2023 documented in this encounter Results * OUTSIDE LAB RESULTS (11/09/2023) 11/09/2023 No Physician Data Unknown LABORATORY documented in this encounter Advance Directives * Full Code (Latest Code Status on File) Date Activated Date Inactivated Comments 04/15/2015 4:40 PM 04/16/2015 5:24 PM This order r eflects the patients wishes and were consensually agreed upon. Care Teams Test Eng Relationship Specialty Start Date End Date Edgar Gibbs MD [address] [place], [place] [phone] PCP - General Family Medicine 07/03/20 documented as of this encounter
--- OUTSIDE RECORDS SUMMARY | 2023-11-18 00:50 | External Medical Summary | Summary of Care ---
Author Name Unknown Organization [facility] Address [address] [facility] [place] [address] Phone [phone] Care Team Providers Care Wool Cleaner Name Role Phone Edgar Gibbs MD Primary Care P rovider Reason for Visit * Reason Comments eRx-Medication Refill Encounter Details Date Type Department Care Team ([facility] Contact Info) Description 11/15/2023 Refill Family Practice [address] [phone] Edgar Gibbs MD [address] [place] [phone] Panic attack as reaction to stress [...] Acetate (3 Month) 22.5 MG Subcutaneous Kit (EliRamend) Inject 22.5 mg under the skin. Every 3 months 11/18/2020 Active Incruse Ellipta 62.5 MCG/ACT Inhalation Aerosol Powder Breath Activated (umeclidinium [place])Indications:C hronic obstructive pulmonary disease, unspecified COPD type [...] 09/28/2023 Active LORazepam 0.5 MG Oral Tablet (Ativan)Indications:P anic attack as reaction to stress Take 1 Tablet by mouth every 8 hours as needed for Anxiety. 30 Tablet 11/16/2023 Active documented as of this encounter (statuses [...] PPD 05/03/2018 Pneumococcal Conjugate Vacci ne, 20-valent ([id number]) 03/16/2022 Pneumococcal Polysaccharide PPV23 (Pneumovax) 12/28/2017 Seasonal [...] No 06/16/2023 Does the household have a [facility] source of income? (Household - for ages [...] encounter Miscellaneous Notes * Telephone Encounter - Anabela Mauricio [facility] - 11/16/2023 3:43 PM EDT Refused Prescriptions: Disp Refills LORazepam 0.5 MG Oral Tablet (Ativan) 30 Tab*0 Sig: Take 1 Tablet by mouth every 8 hours as needed for Anxiety.Refused By: ANABELA MAURICIO for Refusal: Duplicate Request documented in this encounter Plan of Treatment Upcoming Encounters Date Type Department Care Team (Late st Contact Info) Description 12/13/2023 2:00 PM EDT [facility] 132 [facility] [place] [address] Gris Alford CRNP 132 [facility] [place] [address] 01/10/2024 11:00 AM EST Appointment Interventional Radiology [facility] [place] 1st Floor [facility] [address] 02/26/2024 9:30 AM EST Cardiac Studies Cardiac Studies, [facility] 132 [facility] [place] [address] 03/20/2024 8:30 AM EST Laboratory Laboratory Patient Service [address] [phone] Radha, Lab Lock 529 [facility] [place] [address] 03/27/2024 1:50 PM EST Office Visit [facility] 68 [facility] [place] [phone] Edgar Gibbs MD 68 [facility] [place] [address] 04/03/2024 9:30 AM EST Imaging Radiology [facility] [address] [facility] 132 [facility] [place] [address] 04/10/2024 9:15 AM EST Office Visit Urology, [facility] 132 [facility] [place] [address] Travon Canales MD 27 [facility] [place] [id number] 05/01/2024 12:00 PM EST Office Visit Pulmonary [facility], [facility] 132 [facility] [place] [address] Tino Stapleton MD [address] [place] [address] Health Maintenance Due Date Last Done Comments [...] and were consensually agreed upon. Care Teams Wool Cleaner Relationship Specialty Start Date End Date Edgar Gibbs MD [address] [place] [phone] PCP - General Family Medicine 07/03/20 documented as of this encounter
--- OUTSIDE RECORDS SUMMARY | 2023-11-18 00:51 | External Medical Summary | Summary of Care ---
Author Name Unknown Organization [facility] Address [address] [facility] [address] Phone [phone] Care Team Providers Care Site Foreman Name Role Phone Edgar Gibbs MD Primary Care P rovider Encounter Details Date Type Department Care Team (Late st Contact Info) Description 10/17/2023 Result Scan Unspecified Department Pako Ramos MD [address] [facility] [address] <No scans attached> Allergies Active Allergy Reactions [...] Acetate (3 Month) 22.5 MG Subcutaneous Kit (Hyper Wear) Inject 22.5 mg under the skin. Every 3 months 11/18/2020 Active Incruse Ellipta 62.5 MCG/ACT Inhalation Aerosol Powder Breath Activated (umeclidinium [place])Indications:C hronic obstructive pulmonary disease, unspecified COPD type [...] mRNA, LNP-s, No Pre serve, 2-Dose Series (OpenChime) 01/19/2021,06/10/2020,05/20/2020 HEP B - Hepatitis B (Dialysis/Immumocomp Pt) 12/20/2018,07/21/2018,06/19/2018 PPD 05/03/2018 Pneumococcal Conjugate Vacci ne, 20-valent ([id number]) 03/16/2022 Pneumococcal Polysaccharide PPV23 (Pneumovax) 12/28/2017 Seasonal [...] No 06/16/2023 Does the household have a [facility] source of income? (Household - for ages [...] 7:40 AM EDT Office Visit Pulmonary Medicine, [facility] 132 [facility] [place] [address] Tino Stapleton MD [address] [place] [address] 11/01/2023 2:00 PM EDT Nurse Only Urology, [facility] 132 [facility] [place] [address] [facility], Nurse Urology [address] [place] [address] 12/13/2023 2:00 PM EDT Office Visit Cardiology, [facility] 132 [facility] [place] [address] Gris Alford CRNP 132 [facility] [place] [address] 01/10/2024 11:00 AM EST Appointment Interventional Radiology [facility] [place] [place] [facility] 1st Floor [address] [place] [address] 02/26/2024 9:30 AM EST Cardiac Studies Cardiac Studies, [facility] 132 [facility] [place] [address] 03/20/2024 8:30 AM EST Laboratory Laboratory Patient Service [address] [phone] [address] [address] 03/27/2024 1:50 PM EST Office Visit [address] [address] Edgar Gibbs MD 68 [facility] [place] [address] 04/03/2024 9:30 AM EST Imaging Radiology [address] 132 [facility] [place] [address] 04/10/2024 9:15 AM EST Office Visit Urology, [facility] 132 [facility] [place] [address] Travon Canales MD [address] [facility] [place] [address] Health Maintenance Due Date Last Done Comments [...] Date/Time Associated Diagnosis Comments OUTSIDE LAB RESULTS 10/17/2023 documented in this encounter Results * OUTSIDE LAB RESULTS (10/17/2023) 10/17/2023 Pako Ramos MD LABORATORY documented in this encounter Advance Directives * Full Code (Latest Code Status on File) Date Activated Date Inactivated Comments 04/15/2015 4:40 PM 04/16/2015 5:24 PM This order r eflects the patients wishes and were consensually agreed upon. Care Teams Site Foreman Relationship Specialty Start Date End Date Edgar Gibbs MD [address] [place] [phone] PCP - General Family Medicine 07/03/20 documented as of this encounter
--- OUTSIDE RECORDS SUMMARY | 2023-11-18 00:51 | External Medical Summary | Summary of Care ---
Author Name Unknown Organization [facility] Address [address] [facility] [address] Phone [phone] Care Team Providers Care Plant Operator/Shift Supervisor Name Role Phone Edgar Gibbs MD Primary Care P rovider Encounter Details Date Type Department Care Team (Late st Contact Info) Description 10/03/2023 Result Scan Unspecified Department Pako Ramos MD [address] [facility] [address] <No scans attached> Allergies Active Allergy Reactions Criticality Noted Date Comments Latex 07/19/2019 Pantoprazole Sodium Edema face/lips/tongue High 04/0 02/2014 documented as of this encounter (statuses as of 10/09/2023) Medications Medication Sig Dispensed Refills Start Date End Date Status Cholecalciferol 2000 units Capsule Take 1 Capsule by mouth in the morning. 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 Every 3 months 11/18/2020 Active Incruse Ellipta 62.5 MCG/ACT Inhalation Aerosol Powder Breath Activated (umeclidinium [place])Indications:C hronic obstructive pulmonary disease, unspecified COPD type [...] as of this encounter (statuses as of 10/09/2023) Active Problems Problem Noted Date Diagnosed Date [...] as of this encounter (statuses as of 10/09/2023) Resolved Problems Problem Noted Date Diagnosed Date [...] as of this encounter (statuses as of 10/09/2023) Immunizations Name Administration Dates Next Due COVID-19 mRNA, LNP-s, No Pre serve, 2-Dose Series (PingMD) 01/19/2021,06/10/2020,05/20/2020 HEP B - Hepatitis B (Dialysis/Immumocomp Pt) 12/20/2018,07/21/2018,06/19/2018 PPD 05/03/2018 Pneumococcal Conjugate Vacci ne, 20-valent ([id number]) 03/16/2022 Pneumococcal Polysaccharide PPV23 (Pneumovax) 12/28/2017 Seasonal [...] No 06/16/2023 Does the household have a [facility] source of income? (Household - for ages [...] 7:40 AM EDT Office Visit Pulmonary Medicine, [facility] 132 [facility] [place] [address] Tino Stapleton MD [address] [place] [address] 11/01/2023 2:00 PM EDT Nurse Only Urology, [facility] 132 [facility] [place] [address] [facility], Nurse Urology [address] [place] [address] 12/13/2023 2:00 PM EDT Office Visit Cardiology, [facility] 132 [facility] [place] [address] Gris Alford CRNP 132 [facility] [place] [address] 01/10/2024 11:00 AM EST Appointment Interventional Radiology [facility] [facility] 1st Floor [address] [place] [address] 02/26/2024 9:30 AM EST Cardiac Studies Cardiac Studies, [facility] 132 [facility] [place] [address] 03/20/2024 8:30 AM EST Laboratory Laboratory Patient Service [address] [phone] [address] [address] 03/27/2024 1:50 PM EST Office Visit [address] [phone] Edgar Gibbs MD 68 [facility] [place] [address] 04/03/2024 9:30 AM EST Imaging Radiology [address] 132 [facility] [place] [address] 04/10/2024 9:15 AM EST Office Visit Urology, [facility] 132 [facility] [place] [address] Travon Canales MD 27 [facility] [place] [address] Health Maintenance Due Date Last Done Comments [...] Date/Time Associated Diagnosis Comments OUTSIDE LAB RESULTS 10/03/2023 documented in this encounter Results * OUTSIDE LAB RESULTS (10/03/2023) 10/03/2023 Pako Ramos MD LABORATORY documented in this encounter Advance Directives * Full Code (Latest Code Status on File) Date Activated Date Inactivated Comments 04/15/2015 4:40 PM 04/16/2015 5:24 PM This order r eflects the patients wishes and were consensually agreed upon. Care Teams Plant Operator/Shift Supervisor Relationship Specialty Start Date End Date Edgar Gibbs MD [address] [place] [address] PCP - General Family Medicine 07/03/20 documented as of this encounter
--- OUTSIDE RECORDS SUMMARY | 2023-11-18 00:51 | External Medical Summary | Summary of Care ---
Author Name Unknown Organization [facility] Address [address] [facility] [place] [address] Phone [phone] Care Team Providers Care 21 Dealer Name Role Phone Edgar Gibbs MD Primary Care P rovider Reason for Visit * Reason Onset Date Comments Test Results 10/18/2023 CT Chest Encounter Details Date Type Department Care Team (Late st Contact Info) Description 10/18/2023 Telephone Pulmonary Medicine, [facility] 132 [facility] [place] [id number] Tino Stapleton MD [address] [place] [id number] Test Results (CT Chest) Allergies Active Allergy Reactions Criticality Noted Date Comments Latex 07/19/2019 Pantoprazole Sodium Edema face/lips/tongue High 04/0 02/2014 documented as of this encounter (statuses as of 10/18/2023) Medications Medication Sig Dispensed Refills Start Date [...] Acetate (3 Month) 22.5 MG Subcutaneous Kit (LegiTime Technologies) Inject 22.5 mg under the skin. [...] MCG/ACT Inhalation Aerosol SolutionIndications:C OPD exacerbation ([facility]) INHALE TWO PUFFS BY MOUTH EVERY 4 [...] as of this encounter (statuses as of 10/18/2023) Active Problems Problem Noted Date Diagnosed Date [...] as of this encounter (statuses as of 10/18/2023) Resolved Problems Problem Noted Date Diagnosed Date [...] as of this encounter (statuses as of 10/18/2023) Immunizations Name Administration Dates Next Due COVID-19 mRNA, LNP-s, No Pre serve, 2-Dose Series (Pfizer) 01/19/2021,06/10/2020,05/20/2020 HEP B - Hepatitis B (Dialysis/Immumocomp Pt) 12/20/2018,07/21/2018,06/19/2018 PPD 05/03/2018 Pneumococcal Conjugate Vacci ne, 20-valent ([id number]) 03/16/2022 Pneumococcal Polysaccharide PPV23 (Pneumovax) 12/28/2017 Seasonal [...] Telephone Encounter - Kelsea Alexis LPN - 10/18/2023 7:56 AM EDT ----- Message from Tino Stapleton MD sent at 10/17/2023 6:05 PM EDT ----- CT Chest Without Contrast; : 09[birth year]23 Age: 78 years old Clinical indication: Solitary pulmonary nodule; Additional info: Evaluate right apical and left mid lung nodule, history of asbestos exposure COMPARISON: CT CHEST WO(Adult) 01/17/2023 FINDINGS: Lungs: Stable centrilobular emphysematous changes are present. Calcified granuloma in the right upper lobe. Consolidative changes at the right lung base improved from previous. Pleural spaces: Small right pleural effusion, decreased significantly from previous. IMPRESSION: 1. Significantly improved aeration compared to previous with decreasing right basilar consolidation likely representing scarring 2. Small residual right pleural effusion significant decreased from previous 3. Large granuloma in the right upper lung 4. Extensive chronic changes of the lung parenchyma without definite dominant other nodule identified. No significant new changes. Continued clinical monitoring recommended. Chart note documented in this encounter Plan of Treatment Upcoming Encounters Date Type Department Care Team (Late st Contact Info) Description 10/23/2023 7:40 AM EDT Office Visit Pulmonary Medicine, [facility] 132 [facility] [place] [address] Tino Stapleton MD [facility] S [facility] [place] [address] 11/01/2023 2:00 PM EDT Nurse Only Urology, [facility] [address] [place] [address] [facility] Nurse Urology [facility] [address] [place] [address] 12/13/2023 2:00 PM EDT Office Visit Cardiology, [facility] 132 [facility] [place] [address] Gris Alford CRNP 132 [facility] [place] [address] 01/10/2024 11:00 AM EST Appointment Interventional Radiology [facility], [facility] 1st Floor [address] [place] [address] 02/26/2024 9:30 AM EST Cardiac Studies Cardiac Studies, [facility] 132 [facility] [place] [address] 03/20/2024 8:30 AM EST Laboratory Laboratory Patient Service [address] [phone] [address] 03/27/2024 1:50 PM EST Office Visit [address] [phone] Edgar Gibbs MD [address] [place] [address] 04/03/2024 9:30 AM EST Imaging Radiology [address] 132 [facility] [place] [address] 04/10/2024 9:15 AM EST Office Visit Urology, [facility] 132 [facility] [place] [address] Travon Canales MD [address] [place] [address] Health Maintenance Due Date Last Done Comments [...] filedocumented as of this encounter Advance Directives * Full Code (Latest Code Status on File) Date Activated Date Inactivated Comments 04/15/2015 4:40 PM 04/16/2015 5:24 PM This order r eflects the patients wishes and were consensually agreed upon. Care Teams 21 Dealer Relationship Specialty Start Date End Date Edgar Gibbs MD [address] [place] [address] PCP - General Family Medicine 07/03/20 documented as of this encounter
--- OUTSIDE RECORDS SUMMARY | 2023-11-18 00:51 | External Medical Summary | Summary of Care ---
Author Name Unknown Organization [facility] Address [address] [facility] [address] Phone [phone] Care Team Providers Care Tile Mechanic Name Role Phone Edgar Gibbs MD Primary Care P rovider Encounter Details Date Type Department Care Team (Late st Contact Info) Description 10/05/2023 Result Scan Unspecified Department Pako Ramos MD [address] [facility] [address] <No scans attached> Allergies Active Allergy Reactions [...] Acetate (3 Month) 22.5 MG Subcutaneous Kit (TopRealtyd) Inject 22.5 mg under the skin. Every 3 months 11/18/2020 Active Incruse Ellipta 62.5 MCG/ACT Inhalation Aerosol Powder Breath Activated (umeclidinium [place])Indications:C hronic obstructive pulmonary disease, unspecified COPD type [...] mRNA, LNP-s, No Pre serve, 2-Dose Series (Fat Spaniel [employer]) 01/19/2021,06/10/2020,05/20/2020 HEP B - Hepatitis B (Dialysis/Immumocomp Pt) 12/20/2018,07/21/2018,06/19/2018 PPD 05/03/2018 Pneumococcal Conjugate Vacci ne, 20-valent ([id number]) 03/16/2022 Pneumococcal Polysaccharide PPV23 (Pneumovax) 12/28/2017 Seasonal [...] the household have a [facility] source of income? (Household - for ages [...] 7:40 AM EDT Office Visit Pulmonary Medicine, [facility] 132 [facility] [place] [address] Tino Stapleton MD [address] [place] [address] 11/01/2023 2:00 PM EDT Nurse Only Urology, [facility] 132 [facility] [place] [address] [facility], Nurse Urology [address] [place] [address] 12/13/2023 2:00 PM EDT Office Visit Cardiology, [facility] 132 [facility] [place] [address] Gris Alford CRNP 132 [facility] [place] [address] 01/10/2024 11:00 AM EST Appointment Interventional Radiology [facility], [facility] 1st Floor [address] [place] [address] 02/26/2024 9:30 AM EST Cardiac Studies Cardiac Studies, [facility] 132 [facility] [place] [address] 03/20/2024 8:30 AM EST Laboratory Laboratory Patient Service [address] [phone] [address] [address] 03/27/2024 1:50 PM EST Office Visit [address] [phone] Edgar Gibbs MD 68 [facility] [place] [address] 04/03/2024 9:30 AM EST Imaging Radiology [address] 132 [facility] [place] [address] 04/10/2024 9:15 AM EST Office Visit Urology, [facility] 132 [facility] [place] [address] Travon Canales MD 27 [facility] [place] [address] Health Maintenance Due Date Last Done Comments [...] Date/Time Associated Diagnosis Comments OUTSIDE LAB RESULTS 10/05/2023 documented in this encounter Results * OUTSIDE LAB RESULTS (10/05/2023) 10/05/2023 Pako Ramos MD LABORATORY documented in this encounter Advance Directives * Full Code (Latest Code Status on File) Date Activated Date Inactivated Comments 04/15/2015 4:40 PM 04/16/2015 5:24 PM This order r eflects the patients wishes and were consensually agreed upon. Care Teams Tile Mechanic Relationship Specialty Start Date End Date Edgar Gibbs MD [address] [place] [address] PCP - General Family Medicine 07/03/20 documented as of this encounter
--- OUTSIDE RECORDS SUMMARY | 2023-11-18 00:51 | External Medical Summary | Summary of Care ---
Author Name Unknown Organization [facility] Address [address] [facility] [place] [address] Phone [phone] Care Team Providers Care Pay Station Attendant Name Role Phone Edgar Gibbs MD Primary Care P rovider Encounter Details Date Type Department Care Team (Late st Contact Info) Description 10/12/2023 Result Scan Unspecified Department <No scans attached> Allergies Active Allergy Reactions Criticality Noted Date Comments Latex 07/19/2019 Pantoprazole Sodium Edema face/lips/tongue High 04/0 02/2014 documented as of this encounter (statuses as of 10/16/2023) Medications Medication Sig Dispensed Refills Start Date End Date Status Cholecalciferol 2000 units Capsule Take 1 Capsule by mouth in the morning. 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 Every 3 months 11/18/2020 Active Incruse Ellipta 62.5 MCG/ACT Inhalation Aerosol Powder Breath Activated (umeclidinium [place])Indications:C hronic obstructive pulmonary disease, unspecified COPD type [...] as of this encounter (statuses as of 10/16/2023) Active Problems Problem Noted Date Diagnosed Date [...] as of this encounter (statuses as of 10/16/2023) Resolved Problems Problem Noted Date Diagnosed Date [...] as of this encounter (statuses as of 10/16/2023) Immunizations Name Administration Dates Next Due COVID-19 mRNA, LNP-s, No Pre serve, 2-Dose Series (EndoInSight) 01/19/2021,06/10/2020,05/20/2020 HEP B - Hepatitis B (Dialysis/Immumocomp Pt) 12/20/2018,07/21/2018,06/19/2018 PPD 05/03/2018 Pneumococcal Conjugate Vacci ne, 20-valent ([id number]) 03/16/2022 Pneumococcal Polysaccharide PPV23 (Pneumovax) 12/28/2017 Seasonal [...] 7:40 AM EDT Office Visit Pulmonary Medicine, [facility] [address] [facility] [place] [address] Tino Stapleton MD [address] [place] [address] 11/01/2023 2:00 PM EDT Nurse Only Urology, [facility] [address] [facility] [place] [address] [facility], Nurse Urology [facility] [address] [facility] [place] [address] 12/13/2023 2:00 PM EDT Office Visit Cardiology, [facility] [address] [facility] [place] [address] Gris Alford CRNP [facility] [place] [address] 01/10/2024 11:00 AM EST Appointment Interventional Radiology [facility], [facility] 1st Floor [address] [place] [address] 02/26/2024 9:30 AM EST Cardiac Studies Cardiac Studies, [facility] [address] [facility] [place] [address] 03/20/2024 8:30 AM EST Laboratory [facility] [address] [place] [phone] [place], Lab Lock [address] [place] [address] 03/27/2024 1:50 PM EST Office Visit [address] [phone] Edgar Gibbs MD [address] [place] [address] 04/03/2024 9:30 AM EST Imaging Radiology [facility]st [facility] [address] [facility] [place] [address] 04/10/2024 9:15 AM EST Office Visit Urology, [facility] [address] [facility] [place] [address] Travon Canales MD [address] [place] [address] [address] Health Maintenance Due Date Last Done Comments [...] Date/Time Associated Diagnosis Comments OUTSIDE LAB RESULTS 10/12/2023 documented in this encounter Results * OUTSIDE LAB RESULTS (10/12/2023) 10/12/2023 No Physician Data Unknown LABORATORY documented in this encounter Advance Directives * Full Code (Latest Code Status on File) Date Activated Date Inactivated Comments 04/15/2015 4:40 PM 04/16/2015 5:24 PM This order r eflects the patients wishes and were consensually agreed upon. Care Teams Pay Station Attendant Relationship Specialty Start Date End Date Edgar Gibbs MD [address] [place] [address] PCP - General Family Medicine 07/03/20 documented as of this encounter
--- OUTSIDE RECORDS SUMMARY | 2023-11-18 00:51 | External Medical Summary | Summary of Care ---
Author Name Unknown Organization [facility] Address [address] [facility] [place] [address] Phone [phone] Care Team Providers Care Journal Entry Audit Clerk Name Role Phone Edgar Gibbs MD Primary Care P rovider Reason for Visit * Reason Onset Date Comments Test Results 10/18/2023 CT Chest Encounter Details Date Type Department Care Team (Late st Contact Info) Description 10/18/2023 Telephone Pulmonary Medicine, [facility] [address] [facility] [place] [id number] Tino Stapleton MD [address] [place] [id number] Test Results (CT Chest) Allergies Active Allergy [...] V (GFR under 15 ml/min) ([facility]) take 2 pills 3 x daily 180 Tab 11 10/26/2018 Active Sodium Chloride Flush (NORMAL SALINE FLUSH) 0.9 % SOLN injection FLUSH ONCE DAILY WITH 10ml 300 mL 1 03/12/2019 Active Leuprolide Acetate (3 Month) 22.5 MG Subcutaneous Kit ([employer]) Inject 22.5 mg under the skin. Every 3 months 11/18/2020 Active Incruse Ellipta 62.5 MCG/ACT Inhalation Aerosol Powder Breath Activated (umeclidinium [place])Indications:C hronic obstructive pulmonary disease, unspecified COPD type (HCC) Inhale 1 Puff by mouth in the morning. 30 Each 11 03/02/2022 Active Nephro-Farzana 0.8 MG Oral Tablet TAKE ONE TABLET BY MOUTH ONCE DAILY 90 Tablet 3 11/22/2022 Active Ventolin HFA 108 (90 Base) MCG/ACT Inhalation Aerosol SolutionIndications:C OPD exacerbation ([facility]) INHALE TWO PUFFS BY MOUTH [...] PPD 05/03/2018 Pneumococcal Conjugate Vacci ne, 20-valent ([id number]) 03/16/2022 Pneumococcal Polysaccharide PPV23 (Pneumovax) 12/28/2017 Seasonal [...] 7:40 AM EDT Office Visit Pulmonary Medicine, [facility] 132 [facility] [place] [address] Tino Stapleton MD [facility] [place] [address] 11/01/2023 2:00 PM EDT Nurse Only Urology, [facility] [address] [place] [address] [facility] Nurse Urology [facility] [address] [place] [address] 12/13/2023 2:00 PM EDT Office Visit Cardiology, [facility] [address] [facility] [place] [address] Gris Alford CRNP 132 [facility] [place] [address] 01/10/2024 11:00 AM EST Appointment Interventional Radiology [facility], [facility] 1st Floor [address] [place] [address] 02/26/2024 9:30 AM EST Cardiac Studies Cardiac Studies, [facility] [address] [facility] [place] [address] 03/20/2024 8:30 AM EST Laboratory Laboratory Patient Service [address] [phone] [address] 03/27/2024 1:50 PM EST Office Visit [address] [phone] Edgar Gibbs MD [address] [place] [address] 04/03/2024 9:30 AM EST Imaging Radiology [address] 132 [facility] [place] [address] 04/10/2024 9:15 AM EST Office Visit Urology, [facility] [address] [facility] [place] [address] Travon Canales MD [address] [place] [address] Health Maintenance Due Date Last Done Comments [...] and were consensually agreed upon. Care Teams Journal Entry Audit Clerk Relationship Specialty Start Date End Date Edgar Gibbs MD [address] [place] [address] PCP - General Family Medicine 07/03/20 documented as of this encounter
--- OUTSIDE RECORDS SUMMARY | 2023-11-18 00:52 | External Medical Summary | Summary of Care ---
Author Name Unknown Organization [facility] Address [address] [facility] [place] [address] Phone [phone] Care Team Providers Care Shell Plater Name Role Phone Edgar Gibbs MD Primary Care P rovider Reason for Visit * Reason Onset Date Comments Appointment Canceled 09/29/2023 Encounter Details Date Type Department Care Team (Late st Contact Info) Description 09/29/2023 Telephone Urology, [facility] [address] [facility] [place] [address] Travon Canales MD [address] [facility] [place] [address] Appointment Canceled Allergies Active Allergy Reactions Criticality Noted Date Comments Latex 07/19/2019 Pantoprazole Sodium Edema face/lips/tongue High 04/0 02/2014 documented as of this encounter (statuses as of 09/29/2023) Medications Medication Sig Dispensed Refills Start Date [...] Acetate (3 Month) 22.5 MG Subcutaneous Kit (Arria NLG) Inject 22.5 mg under the skin. Every 3 months 11/18/2020 Active Incruse Ellipta 62.5 MCG/ACT Inhalation Aerosol Powder Breath Activated (umeclidinium [place])Indications: Chronic obstructive pulmonary disease, unspecified COPD type (HCC) Inhale 1 Puff by mouth in the morning. 30 Each 11 03/02/2022 Active Additional Information Patient not taking.Reported on 09/25/2023 Nephro-Farzana 0.8 MG Oral Tablet TAKE ONE TABLET BY MOUTH ONCE DAILY 90 Tablet 3 11/22/2022 Active Ventolin HFA 108 (90 Base) MCG/ACT Inhalation Aerosol SolutionIndications: COPD exacerbation (HCC) INHALE TWO PUFFS BY MOUTH EVERY 4 HOURS NEEDED FOR COUGH, SHORTNESS OF BREATH, OR WHEEZING 18 g 5 01/20/2023 Active LORazepam 0.5 MG Oral Tablet (Ativan)Indications: Panic [...] Active amLODIPine Besylate 5 MG Oral Tablet (Norvasc)Indications :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 (HCC) Take 1 Tablet by mouth in the morning. 90 Tablet 3 09/28/2023 Active documented as of this encounter (statuses as of 09/29/2023) Active Problems Problem Noted Date Diagnosed Date [...] as of this encounter (statuses as of 09/29/2023) Resolved Problems Problem Noted Date Diagnosed Date [...] as of this encounter (statuses as of 09/29/2023) Immunizations Name Administration Dates Next Due COVID-19 mRNA, LNP-s, No Pre serve, 2-Dose Series (Pfizer) 01/19/2021,06/10/2020,05/20/2020 HEP B - Hepatitis B (Dialysis/Immumocomp Pt) 12/20/2018,07/21/2018,06/19/2018 PPD 05/03/2018 Pneumococcal Conjugate Vacci ne, 20-valent ([id number]) 03/16/2022 Pneumococcal Polysaccharide PPV23 (Pneumovax) 12/28/2017 Seasonal [...] Telephone Encounter - Otilio Heredia OSA - 09/29/2023 2:[address] Canales will not be here on Oct 24 and patient needed moved. I contacted patient and he is rescheduled. * Telephone Encounter - Clare Gray OSA - 09/29/2023 8:57 AM EDT Pt is calling in reference to the message that was left on his spouses cell. He wonders if there isany issues with the message he received 2 days ago about his appt that is for a Lupron and a PSA with Dr. Canales in [facility]. Please advise and offer a soonest appt so that the Lupron is up to date and the PSA is addressed. Thank you Clare documented in this encounter Plan of Treatment Upcoming Encounters Date Type Department Care Team (Late st Contact Info) Description 10/02/2023 11:45 AM EDT Office Visit Urology, [facility] [address] [facility] [place] [address] Travon Canales MD [address] [place] [address] 10/18/2023 10:00 AM EDT Hospital Encounter Interventional Radiology [facility], [facility] 1st Floor [address] [facility] [place] [address] 10/23/2023 7:40 AM EDT Office Visit Pulmonary Medicine, [facility] [address] [place] [address] Tino Stapleton MD [address] [place] [address] 10/25/2023 3:15 PM EDT Office Visit Urology, [facility] [address] [place] [address] Travon Canales MD [address] [place] [address] 11/01/2023 2:00 PM EDT Nurse Only Urology, [facility] [address] [place] [address] [facility] Nurse Urology [facility] [address] [place] [address] 12/13/2023 2:00 PM EDT Office Visit Cardiology, [facility] [address] [place] [address] Gris Alford CRNP 132 [facility], [place] [address] 02/26/2024 9:30 AM EST Cardiac Studies Cardiac Studies, [facility] [address] [facility] [place] [address] 03/20/2024 8:30 AM EST Laboratory Laboratory [facility] Center[address] [phone] [address] 03/27/2024 1:50 PM EST Office Visit [address] [phone] Edgar Gibbs MD [address] [place] [address] Health Maintenance Due Date Last Done Comments *COPD SEVERITY VERIFIED BY PFT 03/05/2022 COVID-19 Vaccine ( season) 2022 01/19/2021, 06/10/2020, 05/20/2020 Influenza Vaccine (FLU shot) (#1) 2023 11/15/2022, 12/04/2021, 12/22/2020, Additional history exists Depression Screening 06/15/2024 06/16/2023 DISCUSS TOBACCO CESSATION (REFER TO SMARTSET #3291) 09/24/2024 09/25/2023 (Discussed), 06/03/2022 O2 ASSESSMENT COMPLETED IN PAST YEAR FOR COPD 09/24/2024 09/25/2023 DTaP,Tdap,and Td Vaccines (2 - Td or [...] and were consensually agreed upon. Care Teams Shell Plater Relationship Specialty Start Date End Date Edgar Gibbs MD [address] [place] [address] [place] [address] PCP - General Family Medicine 07/03/20 documented as of this encounter
--- OUTSIDE RECORDS SUMMARY | 2023-11-18 00:52 | External Medical Summary | Summary of Care ---
Author Name Unknown Organization [facility] Address [address] [facility] [place] [address] Phone [phone] Care Team Providers Care [employer] P[employer] Name Role Phone Edgar Clements MD Primary Care P rovider Reason for Referral * Precert (Within 10 days (routine)) - Authorized Specialty Diagnoses / Procedures Referred By Contac t Referred To Contact Radiology Diagnoses Prostate cancer (HCC) Bladder stones Procedures CT ABD/PELVIS WO IV/ORAL CONTRAST Travon Canales MD [address] [address] Referral ID Status Reason Start Date Expiration Date V isits Requested Visits Authorized [id number] Authorized 04/03/2024 999 [id number] Reason for Visit * Reason Comments Follow Up Encounter Details Date Type Department Care Team (Late st Contact Info) Description 10/02/2023 11:45 AM EDT Office Visit Urology, [facility] [address] [facility] [place] [address] Travon Canales MD [address] [address] Prostate cancer (HCC)*; Bladder stones Allergies Active Allergy Reactions Criticality Noted Date Comments Latex 07/19/2019 Pantoprazole Sodium Edema face/lips/tongue High 04/0 02/2014 documented as of this encounter (statuses as of 10/02/2023) Medications Medication Sig Dispensed Refills Start Date [...] Acetate (3 Month) 22.5 MG Subcutaneous Kit ([employer]) Inject 22.5 mg under the skin. Every 3 months 11/18/2020 Active Incruse Ellipta 62.5 MCG/ACT Inhalation Aerosol Powder Breath Activated (umeclidinium [place])Indications:C hronic obstructive pulmonary disease, unspecified COPD type ([facility]) Inhale 1 Puff by mouth in the morning. 30 Each 11 03/02/2022 Active Nephro-Farzana 0.8 MG Oral Tablet TAKE ONE TABLET BY MOUTH ONCE DAILY 90 Tablet 3 11/22/2022 Active Ventolin HFA 108 (90 Base) MCG/ACT Inhalation Aerosol SolutionIndications:C OPD exacerbation ([facility]) INHALE TWO PUFFS [...] end stage chronic kidney disease on dialysis ([facility]) Take 1 Tablet by mouth in the morning. 90 Tablet 3 09/28/2023 Active documented as of this encounter (statuses as of 10/02/2023) Active Problems Problem Noted Date Diagnosed Date [...] as of this encounter (statuses as of 10/02/2023) Resolved Problems Problem Noted Date Diagnosed Date [...] as of this encounter (statuses as of 10/02/2023) Immunizations Name Administration Dates Next Due COVID-19 mRNA, LNP-s, No Pre serve, 2-Dose Series ([employer]) 01/19/2021,06/10/2020,05/20/2020 HEP B - Hepatitis B (Dialysis/[facility] Pt) 12/20/2018,07/21/2018,06/19/2018 PPD 05/03/2018 Pneumococcal Conjugate Vacci ne, 20-valent ([id number]) 03/16/2022 Pneumococcal Polysaccharide PPV23 (Pneumovax) 12/28/2017 Seasonal [...] Progress Notes * Travon Canales MD - 10/02/2023 11:45 AM EDT [id number] PCP: EDGAR CLEMENTS [address] [place] [address] [phone] Matthew Rowe is a 78 year old male, who presents for 6 month f/u of his history of prostate cancer with malignant ureteral obstruction managed with PCNU. Patient's past notes are reviewed. PCN exchange in June 2023 is noted. Patient will be due for his Lupron injection in another week. He remains on dialysis. Patient denies significant changes in his symptoms or health. He notes he is doing relatively well. He is pleased with his results. He will due for his Lupron injection soon. Recurrent CT chest is noted. Prostate cancer: Diagnosed with June 2014 Evelyne 5+5 Nephroureteral stent right in place from malignant obstruction since 2015. Previous right-sided stent capped, drains when he needs to void. Bladder stones present. Currently on indefinite androgen deprivation. PSA Results: Lab Results Component Value Date/Time PSA - [facility] 0.30 09/18/2023 09:38 AM PSA - [facility] 0.26 04/12/2023 04:50 PM PSA - [facility] 0.30 02/11/2020 12:23 PM PSA - [facility] 0.26 06/10/2019 10:17 AM PSA - [facility] 0.25 01/09/2019 10:53 AM Creatinine Results: Lab Results Component Value [...] CREATININE-OUTSIDE LAB 8.31 (A) 12/08/2017 12:00 AM Current Outpatient Medications Medication Sig Dispense [...] Acetate (3 Month) 22.5 MG Subcutaneous Kit ([employer]) Inject 22.5 mg under the skin. Every 3 months Incruse Ellipta 62.5 MCG/ACT Inhalation Aerosol Powder Breath Activated (umeclidinium [place]) Inhale 1 Puff by mouth in the morning. (Patient not taking: Reported on 09/25/2023) 30 Each 11 Nephro-Farzana 0.8 MG Oral [...] as needed for Anxiety. 30 Tablet 0 Torsemide 100 MG Oral Tablet (Demadex) Take 1 Tablet by mouth in the morning. 90 Tablet 3 Citalopram Hydrobromide 10 MG Oral Tablet (CeleXA) Take 1 Tablet by mouth every night at bedtime. 30 Tablet 5 amLODIPine Besylate 5 MG Oral Tablet (Norvasc) Take 1 Tablet by mouth in the morning. 90 Tablet 3 No current facility-administered medications for this visit. Review of patient's allergies indicates: Allergen Reactions Pantoprazole Sodium Edema face/lips/tongue Latex Social History: Social History Tobacco Use Smoking status: Every Day Current packs/day: 0.25 Average packs/day: 0.3 packs/day for 60.0 years (15.0 ttl pk-yrs) Types: Cigarettes Smokeless tobacco: Never Tobacco comments: 5 cpd smoker 06/14/23. Substance Use Topics Alcohol use: No Vaping/E-Cigarette Use Vaping/E-Cigarette Use Never User Vaping/E-Cigarette Substances Vaping/E-Cigarette Devices Family History Problem Relation Name Age of Onset Stomach cancer Mother in her 80s COPD Father age 64 Parkinsonism Sister Margarita Lung cancer Sister Mary Breast Cancer Sister Caroline breast Other (AAA) Sister Daphney Parkinsonism Sister Gay COPD Sister Gay Heart attack Brother Past Surgical History: Procedure Laterality Date CYSTOSCOPY 07-08-2014 IR DRAINAGE CATHETER CHANGE Right 06/10/2015 CHANGE OF PERCUTANEOUS TUBE OR DRAINAGE CATHETER WITH XRAY AND CONTRAST MEDIUM performed by Gera Mcdaniel MD at RADIOLOGY [facility] IR DRAINAGE CATHETER CHANGE Right 08/24/2016 CHANGE OF PERCUTANEOUS TUBE OR DRAINAGE CATHETER WITH XRAY AND CONTRAST MEDIUM performed by Gera Mcdaniel MD at RADIOLOGY [facility] IR GENITORINARY NEPHRO/CYSTO/URETERAL 01/18/2019 IR GENITORINARY NEPHRO/CYSTO/URETERAL 04/01/2019 IR GENITORINARY NEPHRO/CYSTO/URETERAL 08/02/2019 IR GENITORINARY NEPHRO/CYSTO/URETERAL 12/13/2019 IR GENITORINARY NEPHRO/CYSTO/URETERAL 04/29/2020 IR GENITORINARY NEPHRO/CYSTO/URETERAL 08/19/2020 IR GENITORINARY NEPHRO/CYSTO/URETERAL 12/23/2020 IR GENITORINARY NEPHRO/CYSTO/URETERAL 04/14/2021 IR GENITORINARY NEPHRO/CYSTO/URETERAL 08/04/2021 IR GENITORINARY NEPHRO/CYSTO/URETERAL 12/10/2021 IR GENITORINARY NEPHRO/CYSTO/URETERAL 04/06/2022 IR GENITORINARY NEPHRO/CYSTO/URETERAL 08/15/2022 IR GENITORINARY NEPHRO/CYSTO/URETERAL 01/04/2023 IR GENITORINARY NEPHRO/CYSTO/URETERAL 04/19/2023 IR GENITORINARY NEPHRO/CYSTO/URETERAL 07/19/2023 NONE Past Medical History: Diagnosis Date Hypertension, essential INFORMATION 03/2014 [facility]- kidney failure Pleural effusion Use of leuprolide acetate (Lupron) Patient Active Problem List Diagnosis Chronic anemia HTN, goal below 140/90 Kidney disease, chronic, stage V (GFR under 15 ml/min) ([facility]) Prostate cancer ([facility]) Hydronephrosis, right Dialysis patient ([facility]) 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 ([facility]) DNR (do not resuscitate) ESRD (end stage renal disease) on dialysis ([facility]) Tobacco user Bladder stones Pleural effusion, right COPD, group C, by GOLD 2017 classification ([facility]) Nonrheumatic aortic valve stenosis Supplemental oxygen dependent Constitutional: (-) fever and (-) chills Eyes: (+) corrective lenses Male : see HPI Neurology: (-) negative: no focal neurologic defect Psychiatry: (-) negative: no depression or anxiety Physical Exam Nursing note reviewed. Constitutional: General: He is not in acute distress. Appearance: He is not ill-appearing or toxic-appearing. HENT: Head: Normocephalic. Right Ear: External ear normal. Left Ear: External ear normal. Nose: Nose normal. Mouth/Throat: Mouth: Mucous membranes are moist. Cardiovascular: Pulses: Normal pulses. Pulmonary: Effort: Pulmonary effort is normal. No respiratory distress. Abdominal: General: There is no distension. Musculoskeletal: General: Deformity (Kyphotic) present. Neurological: Mental Status: He is oriented to person, place, and time. Gait: Gait abnormal. Psychiatric: Behavior: Behavior normal. Thought Content: Thought content normal. Impression/Plan: 78-year-old male with a history of high-grade prostate cancer managed with indwelling nephroureterostomy tube, history of stone burden. Patient remains on dialysis. Will avoid surgical intervention if possible. Seen interval since the patient's last renal imaging will plan on CT scan of the abdomen and pelvis with his neck CT chest. Will continue PSA and Lupron q.6 month intervals. Office visits at the time of Lupron injection. Patient can contact us sooner with any urinary deterioration. Above content is personally reviewed. Patient vocalizes good understanding of the treatment plan. Travon Canales MD 8:48 AM 10/02/2023 documented in this encounter Nursing Notes * Danae Gentile LPN - 10/02/2023 11:39 AM EDT 6 month ret, right nephrostomy tube, prostate cancer, bladder stones. Nephrostomy tube scheduled for change in next few weeks. 6 month lupron due after 10/10. Patient presents alone, no complaints. PSA Results: Lab Results Component Value Date/Time PSA - [facility] 0.30 09/18/2023 09:38 AM PSA - [facility] 0.26 04/12/2023 04:50 PM PSA - [facility] 0.30 02/11/2020 12:23 PM PSA - [facility] 0.26 06/10/2019 10:17 AM PSA - [facility] 0.25 01/09/2019 10:53 AM documented in this encounter Plan of Treatment Upcoming Encounters Date Type Department Care Team (Late st Contact Info) Description 10/18/2023 10:00 AM EDT Hospital Encounter Interventional Radiology [facility], Yumiko Guerra [address] [facility] [place] [address] 10/23/2023 7:40 AM EDT [facility] [address] [facility] [place] [address] Tino Stapleton MD [address] [place] [address] [address] 11/01/2023 2:00 PM EDT Nurse Only Urology, [facility] [address] [facility] [place] [address] [facility] Nurse Urology [facility] [address] [facility] [place] [address] 12/13/2023 2:00 PM EDT Office Visit Cardiology, [facility] [address] [facility] [place] [address] Gris Alford CRNP [address] [facility] [place] [address] 02/26/2024 9:30 AM EST Cardiac Studies Cardiac Studies, [facility] [address] [facility] [place] [address] 03/20/2024 8:30 AM EST Laboratory Laboratory Patient Service [address] [id number] [address] 03/27/2024 1:50 PM EST Office Visit [address] [phone] Edgar Clements MD [address] [place] [address] 04/03/2024 9:30 AM EST Imaging Radiology [facility] [address] [facility] [place] [address] 04/10/2024 9:15 AM EST Office Visit Urology, [facility] [address] [facility] [place] [address] Travon Canales MD [address] [address] Scheduled Orders Name Type Priority Associated Diagnoses Orde r Schedule CT ABD/PELVIS WO IV/ORAL CONTRAST Medical Imaging Routine Prostate cancer (HCC) Bladder stones Expected: 04/03/2024 (Approximate), Expires: 11/01/2024 PSA Lab Routine Prostate cancer (HCC) Expected: 04/03/2024 (Approximate), Expires: 10/01/2024 Health Maintenance Due Date Last Done Comments *COPD SEVERITY VERIFIED BY PFT 03/05/2022 COVID-19 Vaccine ( season) 2022 01/19/2021, 06/10/2020, 05/20/2020 Influenza Vaccine (FLU shot) (#1) 2023 11/15/2022, 12/04/2021, 12/22/2020, Additional history exists Depression Screening 06/15/2024 06/16/2023 DISCUSS TOBACCO CESSATION (REFER TO SMARTSET #3296) 09/24/2024 09/25/2023 (Discussed), 06/03/2022 O2 ASSESSMENT COMPLETED [...] bladder documented in this encounter Advance Directives * Full Code (Latest Code Status on File) Date Activated Date Inactivated Comments 04/15/2015 4:40 PM 04/16/2015 5:24 PM This order r eflects the patients wishes and were consensually agreed upon. Care Teams [employer] Relationship Specialty Start Date End Date Edgar Clements MD [address] [place] [id number] PCP - General Family Medicine 07/03/20 documented as of this encounter
--- OUTSIDE RECORDS SUMMARY | 2023-11-18 00:52 | External Medical Summary | Summary of Care ---
Author Name Unknown Organization [facility] Address [address] [place] [address] Phone [phone] Care Team Providers Care Pharmaceutical Laboratory Technician Name Role Phone Edgar Gibbs MD Primary Care P rovider Reason for Visit * Reason Comments Other Partially pulled out nephrostomy tube * Auth/Cert Specialty Diagnoses / Procedures Referred By Cecilia mendieta Referred To Contact [facility] [address] [place] [address] Phone: [phone] Emergency Medicine [facility] [address] [place] [address] Referral ID Status Reason Start Date Expiration Date Visits Re quested Visits Authorized [id number] Encounter Details Date Type Department Care Team (Late st Contact Info) Description 10/08/2023 11:01 AM EDT - 10/08/2023 4:04 PM EDT Emergency [facility]) Emergency Department ([facility]) [address], [place] [id number] Ricky Chandra MD [address] [place] [address] Nephrostomy tube displaced (HCC) (Primary Dx) Discharge Disposition: Home - Self Care Allergies [...] V (GFR under 15 ml/min) ([facility]) take 2 pills 3 x daily 180 Tab 11 10/26/2018 Active Sodium Chloride Flush (NORMAL SALINE FLUSH) 0.9 % SOLN injection FLUSH ONCE DAILY WITH 10ml 300 mL 1 03/12/2019 Active Leuprolide Acetate (3 Month) 22.5 MG Subcutaneous Kit (Mysterio) Inject 22.5 mg under the skin. Every 3 months 11/18/2020 Active Incruse Ellipta 62.5 MCG/ACT Inhalation Aerosol Powder Breath Activated (umeclidinium [place])Indications:C hronic obstructive pulmonary disease, unspecified COPD type ([facility]) Inhale 1 Puff by mouth in the morning. 30 Each 11 03/02/2022 Active Nephro-Farzana 0.8 MG Oral Tablet TAKE ONE TABLET BY MOUTH ONCE DAILY 90 Tablet 3 11/22/2022 Active Ventolin HFA 108 (90 Base) MCG/ACT Inhalation Aerosol SolutionIndications:C OPD exacerbation ([facility]) INHALE TWO PUFFS BY MOUTH EVERY [...] chronic kidney disease on dialysis ([facility]) Take 1 Tablet by mouth in [...] PPD 05/03/2018 Pneumococcal Conjugate Vacci ne, 20-valent ([id number]) 03/16/2022 Pneumococcal Polysaccharide PPV23 (Pneumovax) 12/28/2017 Seasonal [...] Sign Reading Time Taken Comments Blood Pressure 161/70 10/08/2023 3:37 PM EDT Pulse 75 10/08/2023 3:37 PM EDT Temperature 36.1 C (97 F) 10/08/2023 3:37 PM EDT Respiratory Rate 18 10/08/2023 3:37 PM EDT Oxygen Saturation 100% 10/08/2023 3:37 PM EDT Inhaled Oxygen Concentration - - [...] of this encounter Discharge Instructions * Discharge Instructions* Seamus Bains DO - 10/08/2023 3:50 PM EDT You were seen in the emergency department for your nephrostomy tube being removed. We talked to Interventional Radiology and they were able place it again. You can follow up as an outpatient. You do not need to follow up with your nephrostomy exchange in the next couple weeks. You can cancel that appointment documented in this encounter H&P Notes * Jey Montenegro MD - 10/08/2023 3:03 PM EDT HISTORY & PHYSICAL - Vascular and Interventional Radiology Name: Matthew Rowe Location: HISTORY OF PRESENT ILLNESS: Matthew Rowe is a 78 year old year old male seen today in for R PCNU salvage. Matthew Rowe is otherwise in his normal state of health, denying symptoms of chest pain,fevers, chills, N/V/D.+ SOB laying flat Past Medical History: Diagnosis Date Hypertension, essential INFORMATION 03/2014 [facility]- kidney failure Pleural effusion Use of leuprolide [...] NEPHRO/CYSTO/URETERAL 04/19/2023 IR GENITORINARY NEPHRO/CYSTO/URETERAL 07/19/2023 NONE Social History Socioeconomic History Marital status: [...] 5 cpd smoker 06/14/23. Vaping Use Vaping status: Never Used Substance [...] for ages 18 years and over): No Does your family have trouble paying for medicine? (Household - for ages 0-17 years): Not on file Food Insecurity: No Food Insecurity (06/16/2023) Food Insecurity Do you need food for this week? (Adult - for ages 18 years and over): No Are you able to get enough food for your family? (Household - for ages 0-17 years): Not on file Does your family need food this week? (Household - for ages 0-17 years): Not on file Do you always have enough food for your family? (Household - for ages 0-17 years): Not on file Transportation Needs: No Transportation Needs (06/16/2023) Transportation Needs Do you have trouble getting a ride to medical visits or work? (Adult - for ages 18 years and over):Never True Does your family have a hard time getting a ride to doctors visits? (Household - for ages 0-17 years): Not on file Has lack of transportation kept you from medical appointments, meetings, work, or from getting things needed for daily living? Check all that apply. (Adult - for ages 18 years and over): Not on file Do you (or your family) have trouble finding or paying for a ride (transportation)? (Household - for ages 0-17 years): Not on file Social Connections: Socially Integrated (06/16/2023) Social Connections How often do you feel lonely or isolated from those around you? (Adult - for ages 18 years and over): Never Housing Stability: Low Risk (06/16/2023) Housing Stability Do you currently live in a prison or have no steady place to sleep at night? (Adult - for ages 18 years and over): No Do you think you are at risk of becoming homeless? (Adult - for ages 18 years and over): No Does your family worry about paying for your home or becoming homeless? (Household - for ages 0-17 years): Not on file Are you homeless or worried that you might be in the future? (Adult - for ages 18 years and over): Not on file Are you (or your family) homeless or worried that you might be in the future? (Household - for ages0-17 years): Not on file Family History Problem Relation Name Age of Onset Stomach cancer Mother in her 80s COPD Father age 64 Parkinsonism Sister Margarita Lung cancer Sister Mary Breast Cancer Sister Caroline breast Other (AAA) Sister Daphney Parkinsonism Sister Gay COPD Sister Gay Heart attack Brother Review of patient's allergies indicates: Allergen Reactions Pantoprazole Sodium Edema face/lips/tongue Latex Prior to Admission medications Medication Sig Last Dose Discont. amLODIPine Besylate 5 MG Oral Tablet (Norvasc) Take 1 Tablet by mouth in the morning. Citalopram Hydrobromide 10 MG Oral Tablet (CeleXA) Take 1 Tablet by mouth every night at bedtime. Torsemide 100 MG Oral Tablet (Demadex) Take 1 Tablet by mouth in the morning. LORazepam 0.5 MG Oral Tablet (Ativan) Take 1 Tablet by mouth every 8 hours as needed for Anxiety. Ventolin HFA 108 (90 Base) MCG/ACT Inhalation Aerosol Solution INHALE TWO PUFFS BY MOUTH EVERY 4 HOURS NEEDED FOR COUGH, SHORTNESS OF BREATH, OR WHEEZING Nephro-Farzana 0.8 MG Oral Tablet TAKE ONE TABLET BY MOUTH ONCE DAILY Incruse Ellipta 62.5 MCG/ACT Inhalation Aerosol Powder Breath Activated (umeclidinium [place]) Inhale 1 Puff by mouth in the morning. Leuprolide Acetate (3 Month) 22.5 MG Subcutaneous Kit (Mysterio) Inject 22.5 mg under the skin. Every 3 months Sodium Chloride Flush (NORMAL SALINE FLUSH) 0.9 % SOLN injection FLUSH ONCE DAILY WITH 10ml Calcium Acetate, Phos Binder, 667 MG TABS take 2 pills 3 x daily Cholecalciferol 2000 units Capsule Take 1 Capsule by mouth in the morning. REVIEW OF SYSTEMS: Per HPI. OBJECTIVE: PHYSICAL EXAM: BP 168/74 | Pulse 81 | Temp 36 C (96.8 F) (Tympanic) | Resp 16 | SpO2 97% Constitutional: no acute distress HEENT: mucous membranes moist Neck: supple CV: regular Chest: normal respiratory effort Neuro: alert and oriented R flank- partially dislodged PCNU Medications, labs and imaging were reviewed. PRE-SEDATION ASSESSMENT: Right Percutaneous Nephroureteral Tube Salvage Level of sedation planned: Moderate H&P Review / Interval Note Documentation: I have reviewed the H&P previously performed, examined the patient today, and there are no new findings. Difficulty with sedation / anesthesia: No Sleep apnea: No History of snoring: No History of difficult intubation: No Decreased ROM neck flexion/extension: No Tracheal deviation: No Decreased ability to open mouth / TMJ: No Loose teeth / dentures / partial: No Congenital deformities / abnormalities: No Dysphagia: No Mallampati Classification: II - soft palate, uvula, fauces visible Chest: Clear Heart: Regular Rhythm IMPRESSION/PLAN: Matthew Rowe is a 78 year old year old male seen today in for R PCNU salvage. Okay to proceed under moderate sedation. I have discussed the patient's management with the resident/fellow physician and agree with the note. Please refer to the documented findings and plan of care. This patient's visit today consisted ofa service. I was readily available for immediate [id number] consultation and assistance. I have reviewed the medical history, physical examination, diagnosis, and plan. Jey Montenegro MD, FUENTES Vascular and Interventional Radiology, documented in this encounter Nursing Notes * Jamin Ferguson RN - 10/08/2023 3:26 PM EDT SBAR FOR POST INTERVENTIONAL RADIOLOGY PROCEDURE Patient Name: Matthew Rowe Age:[age] year old Sending to: Procedure: right PCN salvage Medications Administered: yes: . Medications (Filter: Administrations occurring from 1502 to 1528 on 10/08/23) As of 10/08/23 1528 cefTRIAXone in dextrose (Rocephin) IVPB 1 g (mL/hr) Total volume: Not documented* Dosing weight: 58.5 *Total volume has not been documented. View each administration to see the amount administered. Date/Time Rate/Dose/Volume Action Route Admin User 10/08/23 1502 1 g - 100 mL/hr (over 30 min) New Bag IV Piggyback Jamin Ferguson RN midazolam (Versed) 2 MG/2ML inj (mg) Total dose: 2 mg Date/Time Rate/Dose/Volume Action Route Admin User 10/08/23 1512 1 mg Given Intravenous Jamin Ferguson RN 1517 1 mg Given Intravenous Jamin Ferguson RN fentaNYL (PF) inj (mcg) Total dose: 50 mcg Date/Time Rate/Dose/Volume Action Route Admin User 10/08/23 1517 50 mcg Given Intravenous Jamin Ferguson RN buffered lidocaine 1 % inj (mL) Total volume: 1.5 mL Date/Time Rate/Dose/Volume Action Route Admin User 10/08/23 1523 1.5 mL Given Intradermal Silvia Celaya DO Special Instructions: none Concerns: no Report from: [place]on Phone extension: [phone] Patient sent via: Stretcher Reason for SBAR handoff: Transfer Patient meets discharge criteria for Interventional Radiology. Vital signs stable. Dressing clean, dry, and intact. Patient awake and oriented to pre procedure baseline. Patient with no nausea/vomiting. All belongings sent with patient. Vital Signs: BP: 162/69 (10/08/23 1520) Temp: 36 C (96.8 F) (10/08/23 1058) Pulse: 80 (10/08/23 1520) Resp: 21 (10/08/23 1520) SpO2: 100 % (10/08/23 1520) Neurological: Sharon Coma Scale Eyes Open: Spontaneous (10/08/23 1502) Best Verbal Response: Verbally appropriate for age (10/08/23 1502) Best Motor Response: Obeys commands appropriate for age (10/08/23 1502) Coma Score: 15 (10/08/23 1502) Activity: Four Extremities LOC: Fully Awake or Pre-Anesthetic Level of Consciousness BP: Less than (+/-) 20% Resp: Deep Breathe and Cough Freely (10/07 1525) Respiratory: Pain Assessment Flowsheet Row Most Recent Value Pain Assessment Scale [facility] Adult Scale 0-10 Pain Score 0 (no pain) Lines: Peripheral Line Right Antecubital 20 Gauge (Active) Status Capped/Locked;Flushes easily 10/08/23 1454 Number of days: 0 Drain Percutaneous Nephrostomy Lower;Right Back (Active) Number of days: 172 * Jamin Ferguson RN - 10/08/2023 3:26 PM EDT accounting auditor note Name: Matthew Rowe Date: 10/08/2023 Time: 3:02 PM Procedure: Percutaneous Nephrostomy Tube Salvage Patient ID band checked using two identifiers. Patient placed on procedure table, prone position, with comfort measures intact and safety strap in place. Hemodynamic monitoring placed and initiated. Patient denies any current complaints at current time. RT staff prepares and preps for procedure. 3:12 PM 1 mg Versed given for patient comfort. Reevaluation statement: RN received verbal confirmation that the patient was reevaluated by Dr. Jey Montenegro immediately prior to the sedation at 3:14 PM. Procedure by physician. 3:15 PM Timeout performed by Dr. Jey Montenegro . Correct catheter/tube size verbalized and verified during timeout. 3:17 PM 1 mg Versed and 50 mcg Fentanyl for patient comfort. 3:18 PM Procedure started by Dr. Jey Montenegro and Dr. Celaya , and scrubbed RT Jordan Clancy begins to salvage site with guidewire. 3:21 PM Access obtained. Guidewire inserted. Images obtained. 3:23 PM PCN placed. [place] Nephroureterostomy Stent, Ultrathane ([employer]). 10.2 Fr. Ref: [id number]. Ref: [id number]. Lot: [id number]. Exp: 08/08/2026. Images obtained. 1% buffered lidocaine given by doctor at right back site. 3:25 PM Sutures placed. Procedure ends. 3:26 PM Area cleaned. Statlock applied. Placed to gravity bag. Patient tolerated procedure well without complications. All [...] RT and the operating physician. Pt did receive conscious sedation for their procedure, and was sedated from 3:17 PM to 3:28 PM. Total medications given Versed: 2 mg Fentanyl: 50 mcg Ancef: 1 g 1% buffered lidocaine: 1.5 mL Please see doctor's operative note for additional details. * Jamin Ferguson RN - 10/08/2023 2:37 PM EDT SBAR FOR PRE INTERVENTIONAL RADIOLOGY PROCEDURE Patient Name: Matthew Rowe Age:[age] year old Room: 05/X Safety Concerns: None Allergies: Pantoprazole sodium and Latex Code Status: Code Status: Prior Isolation: Isolation flowsheet: None Report from: nurse Patient arriving via: Bed or Stretcher Reason for SBAR handoff: Procedure/Diagnostic/Treatment Situation/Background Admission date: 10/08/2023 Patient Service: Emergency Medicine [[id number]] Attending Provider: Ricky Chandra MD Admitting diagnosis: Chief Complaint: Other (Partially pulled out nephrostomy tube) Problem list: Active Problems: * No active hospital problems. * Resolved Problems: * No resolved hospital problems. * Level of Care: Vital Signs: BP: 168/74 (10/08/23 1400) Temp: 36 C (96.8 F) (10/08/23 1058) Pulse: 81 (10/08/23 1400) Resp: 16 (10/08/23 1400) SpO2: 97 % (10/08/23 1400) NPO: today 0800 Consentable: has yearly IV: ED will get documented in this encounter ED Notes * Daphney Martel, RN - 10/08/2023 10:59 AM EDT Patient presents to ED for evaluation of partially pulled out nephrostomy tube. Patient states he was getting ready for oriental orthodox when he accidentally pulled his nephrostomy tube partially out. Tube no longer draining urine, urine leaking from site. documented in this encounter Miscellaneous Notes * Progress Notes - Non-Billable - Silvia Celaya DO - 10/08/2023 3:29 PM EDT Discharge Date: 10/08/2023 Provider: Dr. Jey Montenegro If you are experiencing any problems related to your procedure, please contact Interventional Radiology at [phone] during normal business hours: Monday - Monday, 8:00 am - 4:00 pm. If a problem occurs outside of normal business hours, please call the hospital bench assembler operator at [phone] and ask for the Interventional Radiologist sanitation officer. Contact scheduling for Interventional Radiology at [phone] during normal business hours: Monday - Monday, [...] us at the numbers above. SPECIAL INSTRUCTIONS Nephro-ureteral Stent Change If Connected to Drainage [...] flushes, we can call the prescription into [facility] if no one close to you [...] homicidal, please call the crisis hotline at [phone] ([phone]). MODERATE SEDATION You may have received medication [...] otherwise directed. Driving: You may resume driving in 24 hours . Diet: You may resume your current diet as tolerated. Return to work or school: You may return to school or work 24 hours after the procedure, unless otherwise instructed by the physician. * Progress Notes - Non-Billable - Silvia Celaya DO - 10/08/2023 3:28 PM EDT PROCEDURE NOTE - Interventional Radiology [facility] [address] Name: Matthew Rowe Location: RADIOLOGY WAITING ROOM/IR Date: 10/08/2023 Time: 3:28 PM PROCEDURE: R PCNU salvage RN TELEPHONIC: Dr. Jey Montenegro ASSISTANTS: Dr. Silvia Celaya ANESTHESIA: local conscious sedation COMPLICATIONS: none SPECIMEN: none ESTIMATED BLOOD LOSS: negligible FINDINGS: Preexisting R PCNU retracted to the mid ureter Successful salvage and exchange for new R PCNU, which was capped * Communication - Silvia Celaya DO - 10/08/2023 11:25 AM EDT Brief IR Note Mr. Rowe is a 78 yo male who presented to the ED today with dislodged R PCNU (PCN placed in 2015), last exchange 07/19/2023 and history of prostatic adenocarcinoma and ESRD on HD. Plan to replace PCNU today Keep NPO except meds documented in this encounter Plan of Treatment Upcoming Encounters Date Type Department Care Team (Late st Contact Info) Description 10/18/2023 10:00 AM EDT Hospital Encounter Interventional Radiology [facility], [address] [place] 1[address] [place] [address] 10/23/2023 7:40 AM EDT Office Visit Pulmonary Medicine, [facility] [address] [facility] [place] [address] Tino Stapleton MD [address] [facility] [address] 11/01/2023 2:00 PM EDT Nurse Only Urology, [facility] [address] [facility] [place] [address] [facility] Nurse Urology [facility] [address] [facility] [place] [address] 12/13/2023 2:00 PM EDT Office Visit Cardiology, [facility] [address] [facility] [address] Gris Alford [facility] [address] [facility] [address] 02/26/2024 9:30 AM EST Cardiac Studies Cardiac Studies, [facility] [address] [facility] [address] 03/20/2024 8:30 AM EST [facility] [id number] [address] [address] 03/27/2024 1:50 PM EST Office Visit [address] [id number] Edgar Gibbs MD [address] [place] [address] 04/03/2024 9:30 AM EST Imaging Radiology [facility] [address] [facility] [address] [place] [address] 04/10/2024 9:15 AM EST Office Visit Urology, [facility] [address] [place] [address] Travon Canales MD [address] [address] Pending Results Name Type Priority Associated Diagnoses Date /Time IR GENITORINARY NEPHRO/CYSTO/URETERAL Medical Imaging STAT 10/08/2023 3:31 PM EDT Health Maintenance Due Date Last [...] Name Priority Date/Time Associated Diagnosis Comments IR GENITORINARY NEPHRO/CYSTO/URETE RAL STAT 10/08/2023 3:31 PM EDT Procedure Note - Jey Montenegro MD / Silvia Celaya DO - 10/08/2023 3:31 PM EDTThis note is in progress. PROCEDURE: Right nephroureteral catheter salvage and exchange. INDICATION: 78-year-old with dependence on nephroureteral catheters due toprostatic adenocarcinoma, presents due to partially retractednephroureteral catheter. ATTENDING (OPERATING PHYSICIAN): Dr. Jey Montenegro SCRUBBED RESIDENT (OPERATING PHYSICIAN): Dr. Silvia Celaya SUPPORTING PROVIDER (INSURANCE HEALTHCARE REPRESENTATIVE): Emery GRUBER. CONSENT: After a detailed discussion of the procedure, risks, benefits andalternative treatment options, informed consent was obtained. TIME OUT: A time out procedure was performed. The patient's identificationwas verified. Informed consent with agreement of procedure, site andposition was obtained. All necessary equipment was available prior toprocedure. CONTRAST: IV Optiray 320. No contrast was administered. COMPLICATIONS: None. ANESTHESIA: Local lidocaine. IV Versed. IV Fentanyl. SEDATION TIME: Start to end: 1517 to 1528. Qualified nurse sedationobserver Jamin Ferguson RN. MEDICATIONS: See MAR PROCEDURE DESCRIPTION: The patient was placed in the prone position on thefluoroscopy table. The nephroureteral catheter was prepped and draped inusual sterile fashion. Right: Preliminary fluoroscopic evaluation of the right side demonstrateda partially retracted nephroureteral catheter overlying the right flank. Asmall amount of contrast was injected through the catheter and anantegrade nephrostogram was performed, which demonstrated opacification ofthe right collecting system. The locking mechanism of the catheter wasthen removed and a kumpe catheter was advanced through the catheter over awire. Wire was advanced through the nephroreteral and Kumpe catheter combinationand coiled within the bladder. The nephroureteral and Kumpe cathetercombination was then removed over the wire and exchanged for a new 10 Fr22 cm catheter. A small amount of contrast was injected through the newcatheter and an antegrade nephrostogram was performed, confirmingappropriate positioning. The catheter was secured to the skin and capped. The procedure was performed under the personal supervision of Dr. Fischer who was present for the entire procedure. FINDINGS: Right: Preliminary fluoroscopic evaluation of the right side demonstrateda partially retracted nephroureteral catheter overlying the right flank.Antegrade nephrostogram through the catheter demonstrated opacification ofthe right collecting system. Post exchange imaging confirms appropriatepositioning of the new catheter. IMPRESSION IMPRESSION: This impression is a preliminary interpretation by the resident and issubject to changes following review by an attending radiologist. Be sureto review a final report to be signed by a staff radiologist for anydiscrepancies with this preliminary interpretation. Successful right nephroureteral catheter salvage and exchange. PLAN: Patient should return to IR in 3 months for routine maintenancecatheter exchange. documented in this encounter Visit Diagnoses Diagnosis Nephrostomy tube displaced (HCC)- Primary Urinary complications documented in this encounter Administered Medications Inactive Administered Medications - up to 3 most recent administrations Medication Order MAR Action Action Date Dose Rate Site buffered lidocaine 1 % inj Intradermal, ONCE PRN INTRA PROCEDURE, Starting on 10/08/23 at 1523, Until 10/08/23 at 1523, Intra-Op Given 10/08/2023 3:23 PM EDT 1.5 mL Back Right cefTRIAXone in dextrose (Rocephin) IVPB 1 g IV Piggyback, 1 g, ONCE, 1 dose, On 10/08/23 at 1530, Administer over 30 Minutes New Bag 10/08/2023 3:02 PM EDT 1 g 100 mL/hr fentaNYL (PF) inj ONCE PRN INTRA PROCEDURE, Starting on 10/08/23 at 1517, Until 10/08/23 at 1517, Intra-Op Given 10/08/2023 3:17 PM EDT 50 mcg Iopamidol (Isovue 300) inj 50 mL 50 mL, Injection, ONCE, On 10/08/23 at 1615, For 1 dose, Intra-Op Given 10/08/2023 3:20 PM EDT 15 mL midazolam (Versed) 2 MG/2ML inj ONCE PRN INTRA PROCEDURE, Starting on 10/08/23 at 1512, Until 10/08/23 at 1517, Intra-Op Given 10/08/2023 3:17 PM EDT 1 mg Given 10/08/2023 3:12 PM EDT 1 mg documented in this encounter Active and Recently Administered Medications Times are shown in EDT. Scheduled Medication Order 10/06/2023 10/07/2023 10/08/2023 cefTRIAXone in dextrose (Rocephin) IVPB 1 g (COMPLETED) IV Piggyback, 1 g, ONCE, 1 dose, On 10/08/23 at 1530, Administer over 30 Minutes 1502 (New Bag - Prov ider: Jamin Ferguson RN)1603 (Finish Infusion - Provider: Margarita Arcos RN) Iopamidol (Isovue 300) inj 50 mL (COMPLETED) 50 mL, Injection, ONCE, On 10/08/23 at 1615, For 1 dose, Intra-Op 1520 (Given - Provid er: RT Warren) PRN Medication Order 10/06/2023 10/07/2023 10/08/2023 buffered lidocaine 1 % inj (COMPLETED) Intradermal, ONCE PRN INTRA PROCEDURE, Starting on 10/08/23 at 1523, Until 10/08/23 at 1523, Intra-Op 1523 (Given - Provid er: Silvia Celaya DO) fentaNYL (PF) inj (COMPLETED) ONCE PRN INTRA PROCEDURE, Starting on 10/08/23 at 1517, Until 10/08/23 at 1517, Intra-Op 1517 (Given - Provid er: Jamin Ferguson RN) midazolam (Versed) 2 MG/2ML inj (COMPLETED) ONCE PRN INTRA PROCEDURE, Starting on 10/08/23 at 1512, Until 10/08/23 at 1517, Intra-Op 1512 (Given - Provid er: Jamin Ferguson RN)1517 (Given - Provider: Jamin Ferguson RN) documented in this encounter Advance Directives * Full Code (Latest Code Status on File) Date Activated Date Inactivated Comments 04/15/2015 4:40 PM 04/16/2015 5:24 PM This order r eflects the patients wishes and were consensually agreed upon. Care Teams Pharmaceutical Laboratory Technician Relationship Specialty Start Date End Date Edgar Gibbs MD [address] [place] [address] PCP - General Family Medicine 07/03/20 documented as of this encounter"
--- OUTSIDE RECORDS SUMMARY | 2023-11-18 00:52 | External Medical Summary | Summary of Care ---
Author Name Unknown Organization [facility] Address [address] [facility] [place] [address] Phone [phone] Care Team Providers Care Lobster Man Name Role Phone Edgar Gibbs MD Primary Care P rovider Encounter Details Date Type Department Care Team (Late st Contact Info) Description 09/26/2023 Result Scan Unspecified Department <No scans attached> [...] V (GFR under 15 ml/min) ([facility]) take 2 pills 3 x daily 180 Tab 11 10/26/2018 Active Sodium Chloride Flush (NORMAL SALINE FLUSH) 0.9 % SOLN injection FLUSH ONCE DAILY WITH 10ml 300 mL 1 03/12/2019 Active Leuprolide Acetate (3 Month) 22.5 MG Subcutaneous Kit (Eligard) Inject 22.5 mg under the skin. Every 3 months 11/18/2020 Active Incruse Ellipta 62.5 MCG/ACT Inhalation Aerosol Powder Breath Activated (umeclidinium [place])Indications: Chronic obstructive pulmonary disease, unspecified COPD type ([facility]) Inhale 1 Puff by mouth in [...] mRNA, LNP-s, No Pre serve, 2-Dose Series ([employer]) 01/19/2021,06/10/2020,05/20/2020 HEP B - Hepatitis B (Dialysis/Immumocomp Pt) 12/20/2018,07/21/2018,06/19/2018 PPD 05/03/2018 Pneumococcal Conjugate Vacci ne, 20-valent ([id number]) 03/16/2022 Pneumococcal Polysaccharide PPV23 (Pneumovax) 12/28/2017 Seasonal [...] 10/02/2023 11:45 AM EDT Office Visit Urology, [address] [place] [address] Travon Canales MD [address] [place] [address] [phone] 10/18/2023 10:00 AM EDT Hospital Encounter Interventional Radiology [facility], [place] [place] 1st Floor [address] [place] [address] 10/23/2023 7:40 AM EDT Office Visit Pulmonary Medicine, [facility] [place] [address] Tino Stapleton MD [address] [place] [address] 11/01/2023 2:00 PM EDT Nurse Only Urology, [facility] [place] [address] [facility], Nurse Urology [facility] 132 [facility], [place] [address] 12/13/2023 2:00 PM EDT Office Visit Cardiology, [facility] [place] [address] Gris Alford CRNP [facility] [address] 02/26/2024 9:30 AM EST Cardiac Studies Cardiac Studies, [facility] [place] [address] 03/20/2024 8:30 AM EST Laboratory Laboratory Patient Service [address] [phone] [address] [address] 03/27/2024 1:50 PM EST Office Visit [address] [phone] Edgar Gibbs MD [address] [place] [address] Health Maintenance Due Date Last Done Comments [...] Date/Time Associated Diagnosis Comments OUTSIDE LAB RESULTS 09/26/2023 documented in this encounter Results * OUTSIDE LAB RESULTS (09/26/2023) 09/26/2023 No Physician Data Unknown LABORATORY documented in this encounter Advance Directives * Full Code (Latest Code Status on File) Date Activated Date Inactivated Comments 04/15/2015 4:40 PM 04/16/2015 5:24 PM This order r eflects the patients wishes and were consensually agreed upon. Care Teams Lobster Man Relationship Specialty Start Date End Date Edgar Gibbs MD [address] [place] [address] PCP - General Family Medicine 07/03/20 documented as of this encounter
--- OUTSIDE RECORDS SUMMARY | 2023-11-18 00:52 | External Medical Summary | Summary of Care ---
Author Name Unknown Organization [facility] Address [address] [facility] [place] [address] Phone [phone] Care Team Providers Care Pediatric Occupational Therapist Name Role Phone Edgar Clements MD Primary Care P rovider Reason for Visit * Reason Onset Date Comments Medication Refill 09/28/2023 Encounter Details Date Type Department Care Team ([facility] st Contact Info) Description 09/28/2023 Refill Family [address] [phone] Edgar Clements MD [address] [place] [phone] 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 ([facility]) Allergies Active Allergy Reactions Criticality Noted Date [...] V (GFR under 15 ml/min) ([facility]) take 2 pills 3 x daily 180 Tab 11 10/26/2018 Active Sodium Chloride Flush (NORMAL SALINE FLUSH) 0.9 % SOLN injection FLUSH ONCE DAILY WITH 10ml 300 mL 1 03/12/2019 Active Leuprolide Acetate (3 Month) 22.5 MG Subcutaneous Kit (Toothpick) Inject 22.5 mg under the skin. Every 3 months 11/18/2020 Active Incruse Ellipta 62.5 MCG/ACT Inhalation Aerosol Powder Breath Activated (umeclidinium [place])Indication s:Chronic obstructive pulmonary disease, unspecified COPD type [...] the morning. 90 Tablet 3 09/28/2023 Active amLODIPine Besylate 5 MG Oral Tablet (Norvasc)Indicatio ns: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 (HCC) Take 1 Tablet by mouth in the morning. 90 Tablet 3 09/25/2023 Discontinue d(Refill) documented as of this encounter [...] PPD 05/03/2018 Pneumococcal Conjugate Vacci ne, 20-valent ([id number]) 03/16/2022 Pneumococcal Polysaccharide PPV23 (Pneumovax) 12/28/2017 Seasonal [...] Miscellaneous Notes * Telephone Encounter - Edgar Celments MD - 09/29/2023 11:52 AM EDT If he has been taking amlodipine 5 mg 2 tablets daily I can send a new prescription for amlodipine 10 mg daily. Please let me know if that is with the patient needs. * Telephone Encounter - Anthony Ochoa PHARM Tech - 09/29/2023 9:37 AM EDT Patient stated he took 2 tablets of the Amlodipine Besylate 5 mg instead of 1 tablet. I called the pharmacy and they stated he would have to pay out of pocket. Informed the patient and they understand. Thank you, Anthony Ochoa Sap Fico Architect [facility] 09/29/2023, 9:42 AM * Telephone Encounter - Ellen Lentz RPh - 09/28/2023 5:06 PM EDTSigned Prescriptions: Disp Refills amLODIPine Besylate 5 MG Oral Tablet (Norv*90 Tab*3 Sig: Take 1 Tablet by mouth in the morning.Authorizing Provider: EDGAR CLEMENTS User: ELLEN LENTZ * Telephone Encounter - Ellen Lentz RP - 09/28/2023 5:06 PM EDT Resent to pharmacy as requested. Thank you, Ellen Lentz, PharmD Clinical Pharmacist [facility] ([facility]) 09/28/23 5:06 PM [phone] * Telephone Encounter - Willard Franco third cook - 09/28/2023 4:38 PM EDT Please resend Rx to [facility] [address] Confirmed pharmacy did not receive original prescription. Pending Prescriptions: Disp Refills amLODIPine Besylate 5 MG Oral Tablet (Nor*90 Tab*3 Sig: Take 1 Tablet by mouth in the morning. Last Visit: 09/25/2023 (in office), Visit date not found (telemedicine) 03/27/2024 If no future appointments scheduled, and last appointment is greater than a year ago, please schedule patient for a follow-up appointment Last date the medication was ordered: 09/25/2023 Patient Phone Numbers Labs: Lab Results Component [...] 10:00 AM EDT Hospital Encounter Interventional Radiology [facility], [place] [place] 1st Floor [address] [place] [address] 10/23/2023 7:40 AM EDT Office Visit Pulmonary Medicine, [facility] 132 [facility] [place] [address] Tino Stapleton MD [address] [place] [address] 10/25/2023 3:15 PM EDT Office Visit Urology, [facility] 132 [facility] [place] [address] Travon Canales MD [address] [place] [address] 12/13/2023 2:00 PM EDT Office Visit Cardiology, [facility] 132 [facility] [place] [address] Gris Alford CRNP 132 [facility] [place] [address] 02/26/2024 9:30 AM EST Cardiac Studies Cardiac Studies, [facility] 132 [facility] [place] [address] 03/20/2024 8:30 AM EST Laboratory Laboratory Patient Service [address] [phone] [address] [address] 03/27/2024 1:50 PM EST Office Visit [address] [phone] Edgar Clements MD [address] [place] [address] Health Maintenance Due Date Last Done Comments *COPD SEVERITY VERIFIED BY PFT 03/05/2022 COVID-19 Vaccine (2022- season) 2022 01/19/2021, 06/10/2020, 05/20/2020 Influenza Vaccine [...] (HCC) documented in this encounter Advance Directives * Full Code (Latest Code Status on File) Date Activated Date Inactivated Comments 04/15/2015 4:40 PM 04/16/2015 5:24 PM This order r eflects the patients wishes and were consensually agreed upon. Care Teams Pediatric Occupational Therapist Relationship Specialty Start Date End Date Edgar Clements MD [address] [place] [address] PCP - General Family Medicine 07/03/20 documented as of this encounter
--- OUTSIDE RECORDS SUMMARY | 2023-11-18 00:53 | External Medical Summary | Summary of Care ---
Author Name Unknown Organization [facility] Address [address] [place] [address] Phone [phone] Care Team Providers Care Box Stacker Name Role Phone Edgar Gibbs MD Primary Care P rovider Reason for Referral * Precert (Within 10 days (routine)) - Authorized Specialty Diagnoses / Procedures Referred By Contac t Referred To Contact Radiology Diagnoses Lung nodule Procedures CT CHEST WO CONTRAST Tino Mcdowell MD [address] [facility] [address] Referral ID Status Reason Start Date Expiration Date V isits Requested Visits Authorized [id number] Authorized 09/19/2023 999 999 Reason for Visit * Reason Onset Date Comments Test Results 09/15/2023 Unexpected or In determinate Result Encounter Details Date Type Department Care Team (Late st Contact Info) Description 09/15/2023 Telephone Laboratory, [place] [address] [place] [address] Pako Ramos MD [address] [facility] [place] [address] Test Results (Unexpected or Indeterminate ... Allergies Active Allergy Reactions Criticality Noted Date Comments Latex 07/19/2019 Pantoprazole Sodium Edema face/lips/tongue High 04/0 02/2014 documented as of this encounter (statuses as of 09/22/2023) Medications Medication Sig Dispensed Refills Start Date [...] Acetate (3 Month) 22.5 MG Subcutaneous Kit ([employer]) Inject 22.5 mg under the skin. Every 3 months 11/18/2020 Active Incruse Ellipta 62.5 MCG/ACT Inhalation Aerosol Powder Breath Activated (umeclidinium [place])Indications:C hronic obstructive pulmonary disease, unspecified COPD type ([facility]) Inhale 1 Puff by mouth in the morning. 30 Each 11 03/02/2022 Active Nephro-Farzana 0.8 MG Oral Tablet TAKE ONE TABLET BY MOUTH ONCE DAILY 90 Tablet 3 11/22/2022 Active Ventolin HFA 108 (90 Base) MCG/ACT Inhalation Aerosol SolutionIndications:C OPD exacerbation ([facility]) INHALE TWO PUFFS BY MOUTH [...] mouth in the morning. 90 Tablet 3 08/16/2023 Active documented as of this encounter (statuses as of 09/22/2023) Active Problems Problem Noted Date Diagnosed Date [...] as of this encounter (statuses as of 09/22/2023) Resolved Problems Problem Noted Date Diagnosed Date [...] as of this encounter (statuses as of 09/22/2023) Immunizations Name Administration Dates Next Due COVID-19 mRNA, LNP-s, No Pre serve, 2-Dose Series (Pfizer) 01/19/2021,06/10/2020,05/20/2020 HEP B - Hepatitis B (Dialysis/Immumocomp Pt) 12/20/2018,07/21/2018,06/19/2018 PPD 05/03/2018 Pneumococcal Conjugate Vacci ne, 20-valent ([id number]) 03/16/2022 Pneumococcal Polysaccharide PPV23 (Pneumovax) 12/28/2017 Seasonal [...] No 06/16/2023 Does the household have a [facility] source of income? (Household - for ages [...] Miscellaneous Notes * Telephone Encounter - Kelsea Taylor, VICTORIANO - 09/22/2023 5:[address] scheduled on 09/27/23 at 2:15 PM. * Telephone Encounter - Kelsea Taylor, VICTORIANO - 09/19/2023 6:00 PM EDT Called pt, no answer. LM to return call to schedule CT. * Addendum Note - Tino Mcdowell MD - 09/18/2023 5:34 PM EDTAddended by: TINO MCDOWELL on: 09/18/2023 05:34 PM Modules accepted: Orders * Telephone Encounter - Tino Mcdowell MD - 09/18/2023 5:31 PM EDT Chest x-ray 09/15/2023 was reviewed and compared with 05/17/2023. Right pleural effusion is significantly resolved. Left mid lung and right apical ? Nodular densities were also visible on 05/17/2023 (reading at thatpoint was focused on right pleural effusion and did not describe these changes). Given prior significant history of asbestos exposure, agree with noncontrast CT scan chest. CT scan chest noncontrast has been ordered. * Telephone Encounter - Edgar Gibbs MD - 09/18/2023 1:37 PM EDT Noted. Awaiting tagman response. * Telephone Encounter - Darrel Angeles OSA - 09/15/2023 6:51 PM EDT Hello- The radiologist discovered an unexpected or indeterminate finding on Matthew Rowe ([id number]) andasks that you review the following report. Study Type: XR CHEST 2 VIEWS Date of Study: 09/15/2023 IMPRESSION 1. Airspace opacity in the left mid lung. 2. Question nodular densities, for which CT thorax is recommended. 3. Small right pleural effusion. Please respond to this encounter to acknowledge receipt of this message and take responsibility to ensure this report is reviewed. Thank you, VICTORIANO Zaldivar Client Service Rep [facility] documented in this encounter Plan of Treatment Upcoming Encounters Date Type Department Care Team (Late st Contact Info) Description 09/25/2023 11:00 AM EDT Office Visit [facility] [address] [place] [phone] Edgar Gibbs MD [address] [place] [address] 09/27/2023 2:15 PM EDT Imaging Radiology [address] [place] [address] 10/18/2023 10:00 AM EDT Appointment Interventional Radiology [facility], [facility] 1st Floor [address] [facility] [place] [address] 10/23/2023 7:40 AM EDT Office Visit Pulmonary Medicine, [facility] 132 [facility] [place] [address] Tino Mcdowell MD [address] [place] [address] 10/25/2023 3:15 PM EDT Office Visit Urology, [facility] 132 [facility] [place] [address] Travon Canales MD [address] [place] [address] 12/13/2023 2:00 PM EDT Office Visit Cardiology, [facility] 132 [facility] [place] [address] Gris Alford CRNP 132 [facility] [address] 02/26/2024 9:30 AM EST Cardiac Studies Cardiac Studies, [address] [place] [address] Scheduled Orders Name Type Priority Associated Diagnoses Orde r Schedule CT CHEST WO CONTRAST Medical Imaging Routine Lung nodule Expected: 09/19/2023, Expires: 10/18/2024 Health Maintenance Due Date Last Done Comments *COPD SEVERITY VERIFIED BY PFT 03/05/2022 COVID-19 Vaccine ( season) 2022 01/19/2021, 06/10/2020, 05/20/2020 DISCUSS TOBACCO CESSATION (REFER TO SMARTSET #9401) 06/04/2023 06/03/2022 Influenza Vaccine (FLU shot) (#1) 2023 11/15/2022, 12/04/2021, 12/22/2020, Additional history exists Depression Screening 06/15/2024 06/16/2023 O2 ASSESSMENT COMPLETED IN PAST YEAR FOR COPD 07/18/2024 07/19/2023 DTaP,Tdap,and Td Vaccines (2 - Td or [...] as of this encounter Visit Diagnoses Diagnosis Lung nodule- Primary Solitary pulmonary nodule documented in this encounter Advance Directives * Full Code (Latest Code Status on File) Date Activated Date Inactivated Comments 04/15/2015 4:40 PM 04/16/2015 5:24 PM This order r eflects the patients wishes and were consensually agreed upon. Care Teams Box Stacker Relationship Specialty Start Date End Date Edgar Gibbs MD [address] [place] [address] PCP - General Family Medicine 07/03/20 documented as of this encounter
--- OUTSIDE RECORDS SUMMARY | 2023-11-18 00:53 | External Medical Summary | Summary of Care ---
Author Name Unknown Organization [facility] Address [address] [facility] [place] [address] Phone [phone] Care Team Providers Care Interpreter Deaf Name Role Phone Edgar Clements MD Primary Care P rovider Reason for Visit * Reason Onset Date Comments Medication Refill 09/28/2023 Encounter Details Date Type Department Care Team ([facility] st Contact Info) Description 09/28/2023 Refill Family [address] [phone] Edgar Clements MD [address] [place] [address] 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 ([facility]) Allergies Active Allergy Reactions Criticality Noted Date Comments Latex 07/19/2019 Pantoprazole Sodium Edema face/lips/tongue High 04/0 02/2014 documented as of this encounter (statuses as of 09/28/2023) Medications Medication Sig Dispensed Refills Start Date [...] Acetate (3 Month) 22.5 MG Subcutaneous Kit ([employer]) Inject 22.5 mg under the skin. Every 3 months 11/18/2020 Active Incruse Ellipta 62.5 MCG/ACT Inhalation Aerosol Powder Breath Activated (umeclidinium [place])Indication s:Chronic obstructive pulmonary disease, unspecified COPD type [...] as of this encounter (statuses as of 09/28/2023) Active Problems Problem Noted Date Diagnosed Date [...] as of this encounter (statuses as of 09/28/2023) Resolved Problems Problem Noted Date Diagnosed Date [...] as of this encounter (statuses as of 09/28/2023) Immunizations Name Administration Dates Next Due COVID-19 mRNA, LNP-s, No Pre serve, 2-Dose Series (Pfizer) 01/19/2021,06/10/2020,05/20/2020 HEP B - Hepatitis B (Dialysis/Immumocomp Pt) 12/20/2018,07/21/2018,06/19/2018 PPD 05/03/2018 Pneumococcal Conjugate Vacci ne, 20-valent ([id number]) 03/16/2022 Pneumococcal Polysaccharide PPV23 (Pneumovax) 12/28/2017 Seasonal [...] encounter Miscellaneous Notes * Telephone Encounter - Ellen Garcia RPh - 09/28/2023 5:06 PM EDTSigned Prescriptions: Disp Refills amLODIPine Besylate 5 MG Oral Tablet (Norv*90 Tab*3 Sig: Take 1 Tablet by mouth in the morning.Authorizing Provider: EDGAR CLEMENTS User: ELLEN GARCIA * Telephone Encounter - Ellen Garcia RPh - 09/28/2023 5:06 PM EDT Resent to pharmacy as requested. Thank you, Ellen Garcia, Louise Clinical Pharmacist [facility] ([facility]) 09/28/23 5:06 PM [phone] * Telephone Encounter - Willard Franco, leather cartridge belt maker - 09/28/2023 4:38 PM EDT Please resend Rx to [facility] Confirmed pharmacy did not receive original [...] 10:00 AM EDT Hospital Encounter Interventional Radiology [facility], [facility] 1st Floor [address] [place] [address] 10/23/2023 7:40 AM EDT Office Visit Pulmonary Medicine, [facility] 132 [facility] [place] [address] Tino Stapleton MD [address] [place] [id number] 10/25/2023 3:15 PM EDT Office Visit Urology, [facility] 132 [facility] [place] [address] Travon Canales MD [address] [address] [address] 12/13/2023 2:00 PM EDT Office Visit Cardiology, [facility] 132 [facility] [place] [address] Gris Alford CRNP 132 [facility] [place] [address] 02/26/2024 9:30 AM EST Cardiac Studies Cardiac Studies, [facility] 132 [facility] [place] [address] 03/20/2024 8:30 AM EST Laboratory Laboratory Patient Service [address] [phone] [address] 03/27/2024 1:50 PM EST Office Visit [address] [phone] Edgar Clements MD [address] [place] [address] Health Maintenance Due Date Last Done Comments [...] and were consensually agreed upon. Care Teams Interpreter Deaf Relationship Specialty Start Date End Date Edgar Clements MD [address] [place] [address] [place] [address] PCP - General Family Medicine 07/03/20 documented as of this encounter
--- OUTSIDE RECORDS SUMMARY | 2023-11-18 00:53 | External Medical Summary | Summary of Care ---
Author Name Unknown Organization [facility] Address [address] [facility] [place] [address] Phone [phone] Care Team Providers Care Commercial Property Manager Name Role Phone Edgar Gibbs MD Primary Care P rovider Reason for Visit * Reason Onset Date Comments Returning Call 09/20/2023 Encounter Details Date Type Department Care Team (Late st Contact Info) Description 09/20/2023 Telephone Pulmonary Medicine Deedee Gold [address] [place] [phone] Tino Stapleton MD [address] [place] [address] Returning Call Allergies Active Allergy Reactions Criticality Noted Date [...] chronic, stage V (GFR under 15 ml/min) ([facility]) take 2 pills 3 x daily 180 Tab 11 10/26/2018 Active Sodium Chloride Flush (NORMAL SALINE FLUSH) 0.9 % SOLN injection FLUSH ONCE DAILY WITH 10ml 300 mL 1 03/12/2019 Active Leuprolide Acetate (3 Month) 22.5 MG Subcutaneous Kit ([employer]) Inject 22.5 mg under the skin. Every 3 months 11/18/2020 Active Incruse Ellipta 62.5 MCG/ACT Inhalation Aerosol Powder Breath Activated (umeclidinium [place])Indications:C hronic obstructive pulmonary disease, unspecified COPD type [...] PPD 05/03/2018 Pneumococcal Conjugate Vacci ne, 20-valent ([id number]) 03/16/2022 Pneumococcal Polysaccharide PPV23 (Pneumovax) 12/28/2017 Seasonal [...] No 06/16/2023 Does the household have a [facility] source of income? (Household - for ages [...] shopping? (15 years old or older) No 02/17/20 16 Cognitive Status Response Date of Assessm ent Because of a physical, menta l, or emotional condition, do you have serious difficulty concentrating, remembering, or making decisions? (5 years old or older) No 04/15/2015 documented as of this encounter Miscellaneous Notes * Telephone Encounter - Kelsea Taylor, VICTORIANO - 09/22/2023 5:[address] Chest scheduled on 09/27/23 at 2:15 PM * Telephone Encounter - Camila Rivers OSA - 09/20/2023 9:57 AM EDT Patient received a foreign from May. Unable to find message. Please call patient at [phone] documented in this encounter Plan of Treatment Upcoming Encounters Date Type Department Care Team ([facility] st Contact Info) Description 09/25/2023 11:00 AM EDT Office Visit [address] [phone] Edgar Gibbs MD [address] [place] [address] 09/27/2023 2:15 PM EDT Imaging Radiology [address] 132 [facility] [place] [address] 10/18/2023 10:00 AM EDT Appointment Interventional Radiology [facility] 1st Floor [address] [place] [address] 10/23/2023 7:40 AM EDT Office Visit Pulmonary Medicine, [facility] 132 [facility] [place] [address] Tino Stapleton MD [address] [facility] [place] [address] 10/25/2023 3:15 PM EDT Office Visit Urology, [facility] 132 [facility] [place] [address] Travon Canales MD [address] [address] [address] 12/13/2023 2:00 PM EDT Office Visit Cardiology, [facility] [address] [place] [address] Gris Alford CRNP [address] [place] [address] 02/26/2024 9:30 AM EST Cardiac Studies Cardiac Studies, [facility] [address] [place] [address] Health Maintenance Due Date Last Done Comments *COPD SEVERITY VERIFIED BY PFT 03/05/2022 COVID-19 Vaccine ( season) 2022 01/19/2021, 06/10/2020, 05/20/2020 DISCUSS TOBACCO CESSATION (REFER TO SMARTSET #3291) 06/04/2023 06/03/2022 Influenza Vaccine (FLU shot) (#1) [...] were consensually agreed upon. Care Teams Commercial Property Manager Relationship Specialty Start Date End Date Edgar Gibbs MD [address] [place] [id number] PCP - General Family Medicine 07/03/20 documented as of this encounter
--- OUTSIDE RECORDS SUMMARY | 2023-11-18 00:53 | External Medical Summary | Summary of Care ---
Author Name Unknown Organization [facility] Address [address] [facility] [place] [address] Phone [phone] Care Team Providers Care Director Of Early Childhood Education Name Role Phone Edgar Clements MD Primary Care P rovider Reason for Visit * Reason Onset Date Comments Medication Refill 09/28/2023 Encounter Details Date Type Department Care Team ([facility] st Contact Info) Description 09/28/2023 Refill Family [address] [address] Edgar Clements MD [address] [place] [phone] Hypertensive kidney disease with end stage [...] Acetate (3 Month) 22.5 MG Subcutaneous Kit (SIGKAT) Inject 22.5 mg under the skin. Every 3 months 11/18/2020 Active Incruse Ellipta 62.5 MCG/ACT Inhalation Aerosol Powder Breath Activated (umeclidinium [place])Indication s:Chronic obstructive pulmonary disease, unspecified COPD type [...] PPD 05/03/2018 Pneumococcal Conjugate Vacci ne, 20-valent ([id number]) 03/16/2022 Pneumococcal Polysaccharide PPV23 (Pneumovax) 12/28/2017 Seasonal [...] encounter Miscellaneous Notes * Telephone Encounter - Anthony Ochoa PHARM Tech - 09/29/2023 9:37 AM EDT Patient stated he took 2 tablets of the Amlodipine Besylate 5 mg instead of 1 tablet. I called the pharmacy and they stated he would have to pay out of pocket. Informed the patient and they understand. Thank you, Anthony Ochoa Research Editor [employer] 09/29/2023, 9:42 AM * Telephone Encounter - Ellen Garcia [facility] - 09/28/2023 5:06 PM EDTSigned Prescriptions: Disp Refills amLODIPine Besylate 5 MG Oral Tablet (Norv*90 Tab*3 Sig: Take 1 Tablet by mouth in the morning.Authorizing Provider: EDGAR CLEMENTS User: ELLEN GARCIA * Telephone Encounter - Ellen Garcia RP - 09/28/2023 5:06 PM EDT Resent to pharmacy as requested. Thank you, Ellen Garcia, PharmD Clinical Pharmacist [facility] ([facility]) 09/28/23 5:06 PM [phone] * Telephone Encounter - Willard Franco PHARM Tech - 09/28/2023 4:38 PM EDT Please resend Rx to [facility] [address] [facility]. Confirmed pharmacy did not receive original prescription. [...] 10:00 AM EDT Hospital Encounter Interventional [place] [facility] 1st Floor [address] [place] [address] 10/23/2023 7:40 AM EDT Office Visit Pulmonary Medicine, [facility] [address] [facility] [place] [address] Tino Stapleton MD [address] [place] [address] 10/25/2023 3:15 PM EDT Office Visit Urology, [facility] [address] [facility] [place] [address] Travon Canales MD [address] [place] [address] 12/13/2023 2:00 PM EDT Office Visit Cardiology, [facility] [address] [facility] [place] [address] Gris Alford CRNP 132 [facility] [place] [address] 02/26/2024 9:30 AM EST Cardiac Studies Cardiac Studies, [facility] [address] [facility] [place] [address] 03/20/2024 8:30 AM EST [facility] [address] [address] 03/27/2024 1:50 PM EST Office Visit [address] [phone] Edgar Clements MD [address] [place] [address] [phone] Health Maintenance Due Date Last Done Comments *COPD SEVERITY VERIFIED BY PFT 03/05/2022 COVID-19 Vaccine (2022- season) 2022 01/19/2021, 06/10/2020, 05/20/2020 Influenza Vaccine (FLU shot) (#1) 2023 11/15/2022, 12/04/2021, 12/22/2020, Additional history exists Depression Screening 06/15/2024 06/16/2023 DISCUSS TOBACCO CESSATION (REFER TO SMARTSET #7611) 09/24/2024 09/25/2023 (Discussed), 06/03/2022 O2 ASSESSMENT COMPLETED [...] and were consensually agreed upon. Care Teams Director Of Early Childhood Education Relationship Specialty Start Date End Date Edgar Clements MD [address] [place] [phone] PCP - General Family Medicine 07/03/20 documented as of this encounter
--- OUTSIDE RECORDS SUMMARY | 2023-11-18 00:53 | External Medical Summary | Summary of Care ---
Author Name Unknown Organization [facility] Address [address] [facility] [place] [address] Phone [phone] Care Team Providers Care Systems Analyst Name Role Phone Edgar Gibbs MD Primary Care P rovider Reason for Visit * Reason Comments Follow Up Patient is here for a 3 month follow up.Patient states he has no concerns. Encounter Details Date Type Department Care Team (Latest Contact Info) Description 09/25/2023 11:00 AM EDT Office Visit [address] [address] Edgar Gibbs MD [address] [place] [phone] 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 (HCC)*; Pleural effusion, right; COPD, group C, by GOLD 2017 classification ([facility]); Prostate cancer ([facility]); Supplemental oxygen dependent Allergies Active Allergy Reactions Criticality Noted Date Comments Latex 07/19/2019 Pantoprazole Sodium Edema face/lips/tongue High 04/0 02/2014 documented as of this encounter (statuses as of 09/25/2023) Medications Medication Sig Dispensed Refills Start Date End Date Status Cholecalciferol 2000 units Capsule Take 1 Capsule by mouth in the morning. 30 Cap 3 03/28/2017 Active Calcium Acetate, Phos Binder, 667 MG TABSIndications:Ki dney disease, chronic, stage V (GFR under 15 ml/min) ([facility]) take 2 pills 3 x daily 180 Tab 11 10/26/2018 Active Sodium Chloride Flush (NORMAL SALINE FLUSH) 0.9 % SOLN injection FLUSH ONCE DAILY WITH 10ml 300 mL 1 03/12/2019 Active Leuprolide Acetate (3 Month) 22.5 MG Subcutaneous Kit (CopyRightNow) Inject 22.5 mg under the skin. Every 3 months 11/18/2020 Active Incruse Ellipta 62.5 MCG/ACT Inhalation Aerosol Powder Breath Activated (umeclidinium [place])Indication s:Chronic obstructive pulmonary disease, unspecified COPD type ([facility]) Inhale 1 Puff by mouth in the morning. 30 Each 11 03/02/2022 Active Additional Information Patient not taking.Reported on 09/25/2023 Nephro-Farzana 0.8 MG Oral Tablet TAKE ONE TABLET BY MOUTH ONCE DAILY 90 Tablet 3 11/22/2022 Active Ventolin HFA 108 (90 Base) MCG/ACT Inhalation Aerosol SolutionIndication s:COPD exacerbation ([facility]) INHALE TWO PUFFS BY MOUTH [...] chronic kidney disease on dialysis ([facility]) Take 1 Tablet by mouth in the morning. 90 Tablet 3 09/25/2023 Active amLODIPine Besylate 5 MG Oral Tablet (Norvasc) Take 1 Tablet by mouth in the morning. 90 Tablet 3 08/16/2023 Discontinue d(Refill) documented as of this encounter (statuses as of 09/25/2023) Active Problems Problem Noted Date Diagnosed Date [...] as of this encounter (statuses as of 09/25/2023) Resolved Problems Problem Noted Date Diagnosed Date [...] as of this encounter (statuses as of 09/25/2023) Immunizations Name Administration Dates Next Due COVID-19 mRNA, LNP-s, No Pre serve, 2-Dose Series (Pfizer) 01/19/2021,06/10/2020,05/20/2020 HEP B - Hepatitis B (Dialysis/Immumocomp Pt) 12/20/2018,07/21/2018,06/19/2018 PPD 05/03/2018 Pneumococcal Conjugate Vacci ne, 20-valent ([id number]) 03/16/2022 Pneumococcal Polysaccharide PPV23 (Pneumovax) 12/28/2017 Seasonal [...] No 06/16/2023 Does the household have a [facility] source of income? (Household - for [...] Sign Reading Time Taken Comments Blood Pressure 136/72 09/25/2023 11:06 AM EDT Pulse 76 09/25/2023 11:06 AM EDT Temperature 36.4 C (97.5 F) 09/25/2023 1 1:06 AM EDT Respiratory Rate 18 09/25/2023 11:0 6 AM EDT Oxygen Saturation 96% 09/25/2023 11: 06 AM EDT Inhaled Oxygen Concentration - - Weight 58.5 kg (128 lb 14.4 oz) 024 11:06 AM EDT Height - - Body Mass Index 22.84 06/16/2023 11:43 AM EDT documented in this [...] Progress Notes * Edgar Gibbs MD - 09/25/2023 11:12 AM EDT Subjective: Matthew Rowe is a 78 year old male. Chief Complaint Patient presents with Follow Up Patient is here for a 3 month follow up. Patient states he has no concerns. HPI: Patient is in the office for 3 month follow-up chronic medical problems. Regarding hypertension: Currently on torsemide 100 mg every morning along with amlodipine 5 mg every day. Denies lower extremity swelling. He is following a low salt diet. Recent chest x-ray reveals small right pleural effusion, much improved from before. His materials mgmt tech, Dr. Leblanc has ordered CT scan of the chest for next week. He is using oxygen 2 L with activity and also oxygen 2 L at bedtime. Not using oxygen at rest. Doing dialysis Tuesdays, and Saturdays. Has experienced dizziness and has been advised touse meclizine after dialysis. He follows with Dr. Ramos. Patient is still smokes about 4-5 cigarettes a day. His , who was here with him today, I encouraged him to consider quitting. He has history of prostate cancer, on Lupron. Usually taking Boost 3 days a week with dialysis. When he does take boost he feels he needs to get a lot of gas out after dialysis. Using Gas-X 1 to 2 times a day. PMH: Patient Active Problem List Diagnosis Chronic anemia HTN, goal below 140/90 Kidney disease, chronic, stage V (GFR under 15 ml/min) ([facility]) Prostate cancer ([facility]) Hydronephrosis, right Dialysis patient ([facility]) 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 ([facility]) DNR (do not resuscitate) ESRD (end stage renal disease) on dialysis ([facility]) Tobacco user Bladder stones Pleural effusion, right COPD, group C, by GOLD 2017 classification ([facility]) Nonrheumatic aortic valve stenosis Supplemental oxygen dependent Current Outpatient Medications Medication Sig Dispense Refill Cholecalciferol 2000 units Capsule Take 1 Capsule by mouth in the morning. 30 Cap 3 Calcium Acetate, Phos Binder, 667 MG TABS take 2 pills 3 x daily 180 Tab 11 Sodium Chloride Flush (NORMAL SALINE FLUSH) 0.9 % SOLN injection FLUSH ONCE DAILY WITH 10ml 300 mL 1 Nephro-Farzana 0.8 MG Oral Tablet TAKE ONE TABLET BY MOUTH ONCE DAILY 90 Tablet 3 Ventolin HFA 108 (90 Base) MCG/ACT Inhalation Aerosol Solution INHALE TWO PUFFS BY MOUTH EVERY 4 HOURS NEEDED FOR COUGH, SHORTNESS OF BREATH, OR WHEEZING 18 g 5 Torsemide 100 MG Oral Tablet (Demadex) Take 1 Tablet by mouth in the morning. 90 Tablet 3 Citalopram Hydrobromide 10 MG Oral Tablet (CeleXA) Take 1 Tablet by mouth every night at bedtime. 30 Tablet 5 amLODIPine Besylate 5 MG Oral Tablet (Norvasc) Take 1 Tablet by mouth in the morning. 90 Tablet 3 Leuprolide Acetate (3 Month) 22.5 MG Subcutaneous Kit (Eligard) Inject 22.5 mg under the skin. Every 3 months Incruse Ellipta 62.5 MCG/ACT Inhalation Aerosol Powder Breath Activated (umeclidinium [place]) Inhale 1 Puff by mouth in the morning. (Patient not taking: Reported on 09/25/2023) 30 Each 11 LORazepam 0.5 MG Oral Tablet (Ativan) Take 1 Tablet by mouth every 8 hours as needed for Anxiety. 30 Tablet 0 No current facility-administered medications for this visit. Past Medical History: Diagnosis Date Hypertension, essential INFORMATION 03/2014 [facility]- kidney failure Pleural effusion Use of leuprolide acetate (Lupron) Past Surgical History: Procedure Laterality Date CYSTOSCOPY 07-08-2014 IR DRAINAGE CATHETER CHANGE Right 06/10/2015 CHANGE OF PERCUTANEOUS TUBE OR DRAINAGE CATHETER WITH XRAY AND CONTRAST MEDIUM performed by Gera Mcdaniel MD at [facility] IR DRAINAGE CATHETER CHANGE Right 08/24/2016 CHANGE OF PERCUTANEOUS TUBE OR DRAINAGE CATHETER WITH XRAY AND CONTRAST MEDIUM performed by Gera Mcdaniel MD at [facility] IR GENITORINARY NEPHRO/CYSTO/URETERAL 01/18/2019 IR GENITORINARY NEPHRO/CYSTO/URETERAL 04/01/2019 IR GENITORINARY NEPHRO/CYSTO/URETERAL 08/02/2019 IR GENITORINARY NEPHRO/CYSTO/URETERAL 12/13/2019 IR GENITORINARY NEPHRO/CYSTO/URETERAL 04/29/2020 IR GENITORINARY NEPHRO/CYSTO/URETERAL 08/19/2020 IR GENITORINARY NEPHRO/CYSTO/URETERAL 12/23/2020 IR GENITORINARY NEPHRO/CYSTO/URETERAL 04/14/2021 IR GENITORINARY NEPHRO/CYSTO/URETERAL 08/04/2021 IR GENITORINARY NEPHRO/CYSTO/URETERAL 12/10/2021 IR GENITORINARY NEPHRO/CYSTO/URETERAL 04/06/2022 IR GENITORINARY NEPHRO/CYSTO/URETERAL 08/15/2022 IR GENITORINARY NEPHRO/CYSTO/URETERAL 01/04/2023 IR GENITORINARY NEPHRO/CYSTO/URETERAL 04/19/2023 IR GENITORINARY NEPHRO/CYSTO/URETERAL 07/19/2023 NONE Review of patient's allergies indicates: Allergen Reactions Pantoprazole Sodium Edema face/lips/tongue Latex Family History Problem Relation Name Age of Onset Stomach cancer Mother in her 80s COPD Father age 64 Parkinsonism Sister Margarita Lung cancer Sister Mary Breast Cancer Sister Caroline breast Other (AAA) Sister Daphney Parkinsonism Sister Gay COPD Sister Gay Heart attack Brother Family Status Relation Status Mo Fa Sis Sis Sis Sis Sis Bro Rafael Alive Social History Socioeconomic History Marital status: Spouse [...] Stability Do you currently live in a senior care or have no steady place to sleep [...] - for ages0-17 years): Not on file Objective: BP 136/72 | Pulse 76 | Temp 36.4 C (97.5 F) (Tympanic) | Resp 18 | Wt 58.5 kg (128 lb 14.4 oz)| SpO2 96% | BMI 22.84 kg/m | BSA 1.61 m Physical Exam [...] is normal. No prolonged expiration. Breath sounds: Examination of the right-lower field reveals rales. Rales present. No wheezing or rhonchi. Abdominal: General: [...] chronic kidney disease on dialysis (HCC) (Primary) - amLODIPine Besylate 5 MG Oral Tablet (Norvasc); Take 1 Tablet by mouth in the morning. - CBC WITH WBC DIFFERENTIAL AND ANEMIA REFLEX WORKUP; Future; Expected date: 03/27/2024 - COMPREHENSIVE METABOLIC PANEL; Future; Expected date: 03/27/2024 - LIPID PANEL WITH DIRECT LDL IF TG IS HIGH; Future; Expected date: 03/27/2024 Pleural effusion, right COPD, group C, by GOLD 2017 classification ([facility]) Prostate cancer ([facility]) Supplemental oxygen dependent Conditions appear stable. Pleural effusion remains but much well controlled. Continue follow-up with [facility] pulmonary. Continue hemodialysis 3 days a week and follow-up with [facility] Nephrology. Continue current treatment for prostate cancer and follow-up with [facility] Urology. Disability placard filled today for patient. Check fasting labs in 6 months. Follow Up: Return in about 6 months (around 03/27/2024), or if symptoms worsen or fail to improve, for f/u chronic problems. | For: f/u chronic problems Edgar Gamble MD documented in this encounter Nursing Notes * Daphney Christopher LPN - 09/25/2023 11:10 AM EDT The patient has been properly identified by confirmation of name and date of . Chief Complaint Patient presents with Follow Up Patient is here for a 3 month follow up. Patient states he has no concerns. documented in this encounter Plan of Treatment Upcoming Encounters Date Type Department Care Team (Late st Contact Info) Description 09/27/2023 2:15 PM EDT Imaging Radiology [facility] [address] [facility] [place] [address] 10/18/2023 10:00 AM EDT Appointment Interventional Radiology [facility], [facility] 1st Floor [address] [place] [address] 10/23/2023 7:40 AM EDT Office Visit Pulmonary Medicine, [facility] [address] [facility] [place] [address] Tino Stapleton MD [address] [place] [address] 10/25/2023 3:15 PM EDT Office Visit Urology, [facility] 132 [facility] [place] [address] Travon Canales MD [address] [place] [address] 12/13/2023 2:00 PM EDT Office Visit Cardiology, [facility] [address] [facility] [place] [address] Gris Alford [facility] [address] 02/26/2024 9:30 AM EST Cardiac Studies Cardiac Studies, [facility] [address] [facility] [place] [address] 03/20/2024 8:30 AM EST Laboratory [facility] [phone] [place], [facility] [address] [place] [address] 03/27/2024 1:50 PM EST Office Visit [facility], [place] [address] [place] [phone] Edgar Gibbs MD [address] [place] [phone] Scheduled Orders Name Type Priority Associated Diagnoses Orde r Schedule CBC WITH WBC DIFFERENTIAL AND ANEMIA REFLEX WORKUP Lab Routine 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 (HCC) Expected: 03/27/2024 (Approximate), Expires: 09/24/2024 COMPREHENSIVE METABOLIC PANEL Lab Routine 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 (HCC) Expected: 03/27/2024 (Approximate), Expires: 09/24/2024 LIPID PANEL WITH DIRECT LDL IF TG IS HIGH Lab Routine 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 (HCC) Expected: 03/27/2024, Expires: 09/24/2024 Health Maintenance Due Date Last Done Comments [...] chronic kidney disease on dialysis (HCC)- Primary Pleural effusion, right Unspecified pleural effusion COPD, group C, by GOLD 2017 classification (HCC) Prostate cancer (HCC) Malignant neoplasm of prostate Supplemental oxygen dependent Dependence on supplemental oxygen documented in this encounter Advance Directives * Full Code (Latest Code Status on File) Date Activated Date Inactivated Comments 04/15/2015 4:40 PM 04/16/2015 5:24 PM This order r eflects the patients wishes and were consensually agreed upon. Care Teams Systems Analyst Relationship Specialty Start Date End Date Edgar Gibbs MD [address] [place] [address] PCP - General Family Medicine 07/03/20 documented as of this encounter"
--- OUTSIDE RECORDS SUMMARY | 2023-11-18 00:53 | External Medical Summary | Summary of Care ---
Author Name Unknown Organization [facility] Address [address] [facility] [place] [address] Phone [phone] Care Team Providers Care Clinical Rn Liaison Name Role Phone Edgar Gibbs MD Primary Care P rovider Reason for Visit * Reason Onset Date Comments Appointment Canceled 09/29/2023 Encounter Details Date Type Department Care Team (Late st Contact Info) Description 09/29/2023 Telephone Urology, [facility] [address] [facility] [place] [address] Travon Canales MD [address] [facility] [place] [address] Appointment Canceled Allergies Active [...] V (GFR under 15 ml/min) ([facility]) take 2 pills 3 x daily 180 Tab 11 10/26/2018 Active Sodium Chloride Flush (NORMAL SALINE FLUSH) 0.9 % SOLN injection FLUSH ONCE DAILY WITH 10ml 300 mL 1 03/12/2019 Active Leuprolide Acetate (3 Month) 22.5 MG Subcutaneous Kit ([employer]) Inject 22.5 mg under the skin. Every 3 months 11/18/2020 Active Incruse Ellipta 62.5 MCG/ACT Inhalation Aerosol Powder Breath Activated (umeclidinium [place])Indications: Chronic obstructive pulmonary disease, unspecified COPD type [...] PPD 05/03/2018 Pneumococcal Conjugate Vacci ne, 20-valent ([id number]) 03/16/2022 Pneumococcal Polysaccharide PPV23 (Pneumovax) 12/28/2017 Seasonal [...] encounter Miscellaneous Notes * Telephone Encounter - Clare Gray OSA - 09/29/2023 8:57 AM EDT Pt is calling in reference to the message that was left on his spouses cell. He wonders if there isany issues with the message he received 2 days ago about his appt that is for a Lupron and a PSA with Dr. Canales in [facility]. Please advise and offer a soonest appt so that the Lupron is up to date and the PSA is addressed. Thank you Clare documented in this encounter Plan of Treatment Upcoming Encounters Date Type Department Care Team (Late st Contact Info) Description 10/18/2023 10:00 AM EDT Hospital Encounter Interventional Radiology [facility], [facility] 1st Floor [address] [place] [address] 10/23/2023 7:40 AM EDT Office Visit Pulmonary Medicine, [facility] [address] [facility] [place] [address] [facility]apleton [facility] [address] [facility] [address] 10/25/2023 3:15 PM EDT Office Visit Urology, [facility] [address] [facility] [place] [address] Travon Canales MD [address] [place] [address] 12/13/2023 2:00 PM EDT Office Visit Cardiology, [facility] [address] [place] [address] Gris Alford CRNP 132 [facility] [place] [address] 02/26/2024 9:30 AM EST Cardiac Studies Cardiac Studies, [facility] 132 [facility] [place] [address] 03/20/2024 8:30 AM EST Laboratory Laboratory Patient Service [facility] [address] [place] [address] [place], [facility] [address] [place] [address] 03/27/2024 1:50 PM EST Office Visit [address] [phone] Edgar Gibbs MD [address] [place] [address] Health Maintenance Due Date Last Done Comments [...] and were consensually agreed upon. Care Teams Clinical Rn Liaison Relationship Specialty Start Date End Date Edgar Gibbs MD [address] [place] [address] PCP - General Family Medicine 07/03/20 documented as of this encounter
--- OUTSIDE RECORDS SUMMARY | 2023-11-18 00:53 | External Medical Summary | Summary of Care ---
Author Name Unknown Organization [facility] Address [address] [facility] [place] [address] Phone [phone] Care Team Providers Care Cook Specialty Foreign Food Name Role Phone Edgar Gibbs MD Primary Care P rovider Reason for Visit * Reason Onset Date Comments Appointment Canceled 09/29/2023 Encounter Details Date Type Department Care Team (Late st Contact Info) Description 09/29/2023 Telephone Urology, [facility] [address] [facility] [place] [address] Travon Canales MD [address] [facility] [place] [address] Appointment Canceled Allergies Active [...] Acetate (3 Month) 22.5 MG Subcutaneous Kit (Revelation) Inject 22.5 mg under the skin. Every 3 months 11/18/2020 Active Incruse Ellipta 62.5 MCG/ACT Inhalation Aerosol Powder Breath Activated (umeclidinium [place])Indications: Chronic obstructive pulmonary disease, unspecified COPD type [...] PPD 05/03/2018 Pneumococcal Conjugate Vacci ne, 20-valent ([id number]) 03/16/2022 Pneumococcal Polysaccharide PPV23 (Pneumovax) 12/28/2017 Seasonal [...] and a PSA with Dr. Canales in [facility]. Please advise and offer a soonest appt so that the Lupron is up to date and the PSA is addressed. Thank you Clare documented in this encounter Plan of Treatment Upcoming Encounters Date Type Department Care Team (Late st Contact Info) Description 10/18/2023 10:00 AM EDT Hospital Encounter Interventional Radiology [facility], [facility] 1st Floor [address] [place] [address] 10/23/2023 7:40 AM EDT Office Visit Pulmonary Medicine, [facility] [address] [facility] [place] [address] Tino Stapleton MD [address] [facility] [address] 10/25/2023 3:15 PM EDT Office Visit Urology, [facility] [address] [facility] [place] [address] Travon Canales MD [address] [place] [address] 12/13/2023 2:00 PM EDT Office Visit Cardiology, [facility] [address] [place] [address] Gris Alford CRNP 132 [facility] [place] [address] 02/26/2024 9:30 AM EST Cardiac Studies Cardiac Studies, [facility] 132 [facility] [place] [address] 03/20/2024 8:30 AM EST Laboratory Laboratory Patient Service [facility] [address] [place] [address] [place], [facility] [place] [address] [place] [address] 03/27/2024 1:50 PM EST Office Visit [address] [address] Edgar Gibbs MD [address] [place] [address] Health Maintenance Due Date Last Done Comments [...] and were consensually agreed upon. Care Teams Cook Specialty Foreign Food Relationship Specialty Start Date End Date Edgar Gibbs MD [address] [place] [address] PCP - General Family Medicine 07/03/20 documented as of this encounter
--- OUTSIDE RECORDS SUMMARY | 2023-11-18 00:54 | External Medical Summary | Summary of Care ---
Author Name Unknown Organization [facility] Address [address] [place] [address] Phone [phone] Care Team Providers Care Drum Stenciler Name Role Phone Edgar Gibbs MD Primary Care P rovider Reason for Visit * Reason Onset Date Comments Test Results 09/15/2023 Unexpected or In determinate Result Encounter Details Date Type Department Care Team (Late st Contact Info) Description 09/15/2023 Telephone Laboratory, [place] [address] [place] [address] Pako Ramos MD [address] [facility] [address] Test Results (Unexpected or Indeterminate ... Allergies Active Allergy Reactions Criticality Noted Date Comments Latex 07/19/2019 Pantoprazole Sodium Edema face/lips/tongue High 04/0 02/2014 documented as of this encounter (statuses as of 09/18/2023) Medications Medication Sig Dispensed Refills Start Date End Date Status Cholecalciferol 2000 units Capsule Take 1 Capsule by mouth in the morning. 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 Every 3 months 11/18/2020 Active Incruse Ellipta 62.5 MCG/ACT Inhalation Aerosol Powder Breath Activated (umeclidinium [place])Indications:C hronic obstructive pulmonary disease, unspecified COPD type [...] as of this encounter (statuses as of 09/18/2023) Active Problems Problem Noted Date Diagnosed Date [...] as of this encounter (statuses as of 09/18/2023) Resolved Problems Problem Noted Date Diagnosed Date [...] as of this encounter (statuses as of 09/18/2023) Immunizations Name Administration Dates Next Due COVID-19 mRNA, LNP-s, No Pre serve, 2-Dose Series (OnKure) 01/19/2021,06/10/2020,05/20/2020 HEP B - Hepatitis B (Dialysis/Immumocomp Pt) 12/20/2018,07/21/2018,06/19/2018 PPD 05/03/2018 Pneumococcal Conjugate Vacci ne, 20-valent ([id number]) 03/16/2022 Pneumococcal Polysaccharide PPV23 (Pneumovax) 12/28/2017 Seasonal [...] No 06/16/2023 Does the household have a [facility] source of income? (Household - for [...] encounter Miscellaneous Notes * Telephone Encounter - Darrel Angeles OSA - 09/15/2023 6:51 PM EDT Hello- The radiologist discovered an unexpected or indeterminate finding on Matthew Rowe ([id number]) andasks that you review the following report. Study Type: XR CHEST 2 VIEWS Date of Study: 09/15/2023 IMPRESSION 1. Airspace opacity in the left mid lung. 2. Question nodular densities, for which CT thorax is recommended. 3. Small right pleural effusion. Please respond to this encounter to acknowledge receipt of this message and take responsibility to ensure this report is reviewed. Thank you, Darrel Angeles, VICTORIANO Client Service Rep [facility] documented in this encounter Plan of Treatment Upcoming Encounters Date Type Department Care Team (Late st Contact Info) Description 09/25/2023 11:00 AM EDT Office Visit [address] [phone] Edgar Gibbs MD [address] [place] [address] 10/18/2023 10:00 AM EDT Appointment Interventional Radiology [facility], [facility] 1st Floor [address] [place] [address] 10/23/2023 7:40 AM EDT Office Visit Pulmonary Medicine, [facility] 132 [facility] [place] [address] Tino Stapleton MD [address] [place] [address] 10/25/2023 3:15 PM EDT Office Visit Urology, [facility] 132 [facility] [place] [address] Travon Canales MD [address] [place] [address] 12/13/2023 2:00 PM EDT Office Visit Cardiology, [facility] [address] [facility] [place] [address] Gris Alford CRNP 132 [facility] [place] [address] 02/26/2024 9:30 AM EST Cardiac Studies Cardiac Studies, [facility] [address] [facility] [place] [address] Health Maintenance Due Date Last Done Comments [...] Pneumococcal Vaccine: 65+ Years Completed 03/16/2022, 12/28/2017 HPV (Gardasil) Vaccine Aged Out No lo [...] and were consensually agreed upon. Care Teams Drum Stenciler Relationship Specialty Start Date End Date Edgar Gibbs MD [address] [place] [address] PCP - General Family Medicine 07/03/20 documented as of this encounter
--- OUTSIDE RECORDS SUMMARY | 2023-11-18 00:54 | External Medical Summary | Summary of Care ---
Author Name Unknown Organization [facility] Address [address] [place] [address] Phone [phone] Care Team Providers Care Edge Grinder Machine Name Role Phone Edgar Gibbs MD Primary Care P rovider Reason for Referral * Precert (Within 10 days (routine)) - Authorized Specialty Diagnoses / Procedures Referred By Contac t Referred To Contact Radiology Diagnoses Lung nodule Procedures CT CHEST WO CONTRAST Tino Mcdowell MD [address] [facility] [place] [address] Referral ID Status Reason Start Date Expiration Date V isits Requested Visits Authorized [id number] Authorized 09/19/2023 999 999 Reason for Visit * Reason Onset Date Comments Test Results 09/15/2023 Unexpected or In determinate Result Encounter Details Date Type Department Care Team (Late st Contact Info) Description 09/15/2023 Telephone Laboratory, [place] [address] [place] [address] Pako Ramos MD 200 [place] [address] Test Results (Unexpected or Indeterminate ... Allergies Active Allergy Reactions Criticality Noted Date Comments Latex 07/19/2019 Pantoprazole Sodium Edema face/lips/tongue High 04/0 02/2014 documented as of this encounter (statuses as of 09/19/2023) Medications Medication Sig Dispensed Refills Start Date End Date Status Cholecalciferol 2000 units Capsule Take 1 Capsule by mouth in the morning. 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 Every 3 months 11/18/2020 Active Incruse Ellipta 62.5 MCG/ACT Inhalation Aerosol Powder Breath Activated (umeclidinium [place])Indications:C hronic obstructive pulmonary disease, unspecified COPD type ([facility]) Inhale 1 Puff by mouth in the morning. 30 Each 11 03/02/2022 Active Nephro-Farzana 0.8 MG Oral Tablet TAKE ONE TABLET BY MOUTH ONCE DAILY 90 Tablet 3 11/22/2022 Active Ventolin HFA 108 (90 Base) MCG/ACT Inhalation Aerosol SolutionIndications:C OPD exacerbation ([facility]) INHALE TWO PUFFS BY MOUTH [...] as of this encounter (statuses as of 09/19/2023) Active Problems Problem Noted Date Diagnosed Date [...] as of this encounter (statuses as of 09/19/2023) Resolved Problems Problem Noted Date Diagnosed Date [...] as of this encounter (statuses as of 09/19/2023) Immunizations Name Administration Dates Next Due COVID-19 mRNA, LNP-s, No Pre serve, 2-Dose Series (Pfizer) 01/19/2021,06/10/2020,05/20/2020 HEP B - Hepatitis B (Dialysis/Immumocomp Pt) 12/20/2018,07/21/2018,06/19/2018 PPD 05/03/2018 Pneumococcal Conjugate Vacci ne, 20-valent ([id number]) 03/16/2022 Pneumococcal Polysaccharide PPV23 (Pneumovax) 12/28/2017 Seasonal [...] No 06/16/2023 Does the household have a [facility] source of income? (Household - for [...] - 09/18/2023 1:37 PM EDT Noted. Awaiting pst specialist response. * Telephone Encounter - Darrel Angeles OSA - 09/15/2023 6:51 PM EDT [place]- The radiologist discovered an unexpected or indeterminate finding on Matthew Rowe ([id number]) andasks that you review the following report. [...] Thank you, VICTORIANO Zaldivar Client Service Rep [facility] documented in this encounter Plan of Treatment Upcoming Encounters Date Type Department Care Team ([facility] st Contact Info) Description 09/25/2023 11:00 AM EDT Office Visit [facility] [address] [place] [address] Edgar Gibbs MD [address] [place] [address] 10/18/2023 10:00 AM EDT Appointment Interventional Radiology [facility] [facility] 1st Floor [address] [place] [address] 10/23/2023 7:40 AM EDT Office Visit Pulmonary Medicine, [facility] 132 [facility] [place] [address] Tino Mcdowell MD [address] [place] [address] 10/25/2023 3:15 PM EDT Office Visit Urology, [facility] 132 [facility] [place] [address] Travon Canales MD [address] [place] [address] [address] 12/13/2023 2:00 PM EDT Office Visit Cardiology, [facility] 132 [facility] [place] [address] Gris Alford CRNP [address] [facility] [place] [address] 02/26/2024 9:30 AM EST Cardiac Studies Cardiac Studies, [facility] 132 [facility] [place] [address] Scheduled Orders Name Type Priority Associated Diagnoses [...] and were consensually agreed upon. Care Teams Edge Grinder Machine Relationship Specialty Start Date End Date Edgar Gibbs MD [address] [place] [address] PCP - General Family Medicine 07/03/20 documented as of this encounter
--- OUTSIDE RECORDS SUMMARY | 2023-11-18 00:54 | External Medical Summary | Summary of Care ---
Author Name Unknown Organization [facility] Address [address] [place] [address] Phone [phone] Care Team Providers Care Mechanic'S Assistant Name Role Phone Edgar Gibbs MD Primary Care P rovider Reason for Referral * Precert (Within 10 days (routine)) - Authorized Specialty Diagnoses / Procedures Referred By Contac t Referred To Contact Radiology Diagnoses Lung nodule Procedures CT CHEST WO CONTRAST Tino Mcdowell MD [address] [facility] [place] [address] Referral ID Status Reason Start Date Expiration Date V isits Requested Visits Authorized [id number] Authorized 09/19/2023 999 999 Reason for Visit * Reason Onset Date Comments Test Results 09/15/2023 Unexpected or In determinate Result Encounter Details Date Type Department Care Team (Late st Contact Info) Description 09/15/2023 Telephone Laboratory, [place] [address] [place] [address] Pako Ramos MD [address] [place] [address] Test Results (Unexpected or Indeterminate ... Allergies [...] stage V (GFR under 15 ml/min) ([facility]) take 2 pills 3 x daily 180 Tab 11 10/26/2018 Active Sodium Chloride Flush (NORMAL SALINE FLUSH) 0.9 % SOLN injection FLUSH ONCE DAILY WITH 10ml 300 mL 1 03/12/2019 Active Leuprolide Acetate (3 Month) 22.5 MG Subcutaneous Kit (Array Storm) Inject 22.5 mg under the skin. Every 3 months 11/18/2020 Active Incruse Ellipta 62.5 MCG/ACT Inhalation Aerosol Powder Breath Activated (umeclidinium [place])Indications:C hronic obstructive pulmonary disease, unspecified COPD type ([facility]) Inhale 1 Puff by mouth in the morning. 30 Each 11 03/02/2022 Active Nephro-Farzana 0.8 MG Oral Tablet TAKE ONE TABLET BY MOUTH ONCE DAILY 90 Tablet 3 11/22/2022 Active Ventolin HFA 108 (90 Base) MCG/ACT Inhalation Aerosol SolutionIndications:C OPD exacerbation ([facility]) INHALE TWO PUFFS BY MOUTH EVERY [...] PPD 05/03/2018 Pneumococcal Conjugate Vacci ne, 20-valent ([id number]) 03/16/2022 Pneumococcal Polysaccharide PPV23 (Pneumovax) 12/28/2017 Seasonal [...] No 06/16/2023 Does the household have a [facility] source of income? (Household - [...] Miscellaneous Notes * Telephone Encounter - Kelsea Taylor OSA - 09/19/2023 6:00 PM EDT Called pt, [...] - 09/18/2023 1:37 PM EDT Noted. Awaiting watch mechanic response. * Telephone Encounter - Darrel Angeles OSA - 09/15/2023 6:51 PM EDT [place]- The radiologist discovered an unexpected or indeterminate finding on Matthew Rowe ([id number]) andasks that you review the following report. [...] reviewed. Thank you, VICTORIANO Zaldivar Client Service [facility] documented in this encounter Plan of Treatment Upcoming Encounters Date Type Department Care Team (Late st Contact Info) Description 09/25/2023 11:00 AM EDT Office Visit [address] [phone] Edgar Gibbs MD [address] [place] [address] 10/18/2023 10:00 AM EDT Appointment Interventional Radiology [facility], [facility] 1st Floor [address] [facility] [place] [address] 10/23/2023 7:40 AM EDT Office Visit Pulmonary Medicine, [facility] 132 [facility] [place] [address] Tino Mcdowell MD [address] [facility] [place] [id number] 10/25/2023 3:15 PM EDT Office Visit Urology, [facility] 132 [facility] [place] [address] Travon Canales MD [address] [place] [address] [address] 12/13/2023 2:00 PM EDT Office Visit Cardiology, [facility] [address] [facility] [place] [address] Gris Alford CRNP 132 [facility] [place] [address] 02/26/2024 9:30 AM EST Cardiac Studies Cardiac Studies, [facility] 132 [facility] [place] [address] Scheduled Orders Name Type Priority Associated Diagnoses [...] and were consensually agreed upon. Care Teams Mechanic'S Assistant Relationship Specialty Start Date End Date Edgar Gibbs MD [address] [place] [phone] PCP - General Family Medicine 07/03/20 documented as of this encounter
--- OUTSIDE RECORDS SUMMARY | 2023-11-18 00:54 | External Medical Summary | Summary of Care ---
Author Name Unknown Organization [facility] Address [address] [place] [address] Phone [phone] Care Team Providers Care Certified Caregiver Name Role Phone Edgar Gibbs MD Primary Care P rovider Reason for Referral * Precert (Within 10 days (routine)) - Authorized Specialty Diagnoses / Procedures Referred By Contac t Referred To Contact Radiology Diagnoses Lung nodule Procedures CT CHEST WO CONTRAST Tino Mcdowell MD [address] [facility] [place] [address] Referral ID Status Reason Start Date Expiration Date V isits Requested Visits Authorized [id number] Authorized 09/19/2023 999 999 Reason for Visit * Reason Onset Date Comments Test Results 09/15/2023 Unexpected or In determinate Result Encounter Details Date Type Department Care Team (Late st Contact Info) Description 09/15/2023 Telephone Laboratory, [place] [address] [place] [address] Pako Ramos MD 200 [place] [address] Test Results (Unexpected or Indeterminate ... Allergies [...] Acetate (3 Month) 22.5 MG Subcutaneous Kit (Nexx [place]) Inject 22.5 mg under the skin. Every 3 months 11/18/2020 Active Incruse Ellipta 62.5 MCG/ACT Inhalation Aerosol Powder Breath Activated (umeclidinium [place])Indications:C hronic obstructive pulmonary disease, unspecified COPD type ([facility]) Inhale 1 Puff by mouth in the morning. 30 Each 11 03/02/2022 Active Nephro-Farzana 0.8 MG Oral Tablet TAKE ONE TABLET BY MOUTH ONCE DAILY 90 Tablet 3 11/22/2022 Active Ventolin HFA 108 (90 Base) MCG/ACT Inhalation Aerosol SolutionIndications:C OPD exacerbation ([facility]) INHALE TWO PUFFS BY MOUTH [...] PPD 05/03/2018 Pneumococcal Conjugate Vacci ne, 20-valent ([id number]) 03/16/2022 Pneumococcal Polysaccharide PPV23 (Pneumovax) 12/28/2017 Seasonal [...] No 06/16/2023 Does the household have a [facility] source of income? (Household - for ages [...] - 09/18/2023 1:37 PM EDT Noted. Awaiting seaport planning manager response. * Telephone Encounter - Darrel Angeles OSA - 09/15/2023 6:51 PM EDT [place]- The radiologist discovered an unexpected or indeterminate finding on Matthew Rowe ([id number]) andasks that you review the following report. [...] Thank you, VICTORIANO Zaldivar Client Service Rep [facility] documented in this encounter Plan of Treatment Upcoming Encounters Date Type Department Care Team ([facility] st Contact Info) Description 09/25/2023 11:00 AM EDT Office Visit [facility] [address] [place] [address] Edgar Gibbs MD [address] [place] [address] 10/18/2023 10:00 AM EDT Appointment Interventional Radiology [facility], [facility] 1st Floor [address] [place] [address] 10/23/2023 7:40 AM EDT Office Visit Pulmonary Medicine, [facility] 132 [facility] [place] [address] Tino Mcdowell MD [address] [place] [address] 10/25/2023 3:15 PM EDT Office Visit Urology, [facility] 132 [facility] [place] [address] Travon Canales MD [address] [place] [address] [address] 12/13/2023 2:00 PM EDT Office Visit Cardiology, [facility] 132 [facility] [place] [address] Gris Alford CRNP 132 [facility] [place] [address] 02/26/2024 9:30 AM EST Cardiac Studies Cardiac Studies, [facility] 132 [facility] [place] [address] Scheduled Orders Name Type Priority Associated Diagnoses [...] and were consensually agreed upon. Care Teams Certified Caregiver Relationship Specialty Start Date End Date Edgar Gibbs MD [address] [place] [address] PCP - General Family Medicine 07/03/20 documented as of this encounter
--- OUTSIDE RECORDS SUMMARY | 2023-11-18 00:54 | External Medical Summary | Summary of Care ---
Author Name Unknown Organization [facility] Address [address] [facility] [place] [address] Phone [phone] Care Team Providers Care Casey Saw Operator Name Role Phone Edgar Gibbs MD Primary Care P rovider Encounter Details Date Type Department Care Team (Late st Contact Info) Description 09/12/2023 Result Scan Unspecified Department <No scans attached> [...] stage V (GFR under 15 ml/min) ([facility]) take 2 pills 3 x [...] Inhalation Aerosol Powder Breath Activated (umeclidinium [place])Indications:C hronic obstructive pulmonary disease, unspecified COPD type ([facility]) Inhale 1 Puff by mouth [...] mRNA, LNP-s, No Pre serve, 2-Dose Series ([address]) 01/19/2021,06/10/2020,05/20/2020 HEP B - Hepatitis B (Dialysis/Immumocomp Pt) 12/20/2018,07/21/2018,06/19/2018 PPD 05/03/2018 Pneumococcal Conjugate Vacci ne, 20-valent ([id number]) 03/16/2022 Pneumococcal Polysaccharide PPV23 (Pneumovax) 12/28/2017 Seasonal [...] Description 09/25/2023 11:00 AM EDT Office Visit [place] [address] [place] [phone] Edgar Gibbs MD [address] [place] [address] 10/18/2023 10:00 AM EDT Appointment Interventional Radiology [facility], [facility] 1st Floor [address] [place] [address] 10/23/2023 7:40 AM EDT Office Visit Pulmonary Medicine, [facility] 132 [facility] [place] [address] Tino Stapleton MD [address] [place] [address] 10/25/2023 3:15 PM EDT Office Visit Urology, [facility] 132 [facility] [place] [address] Travon Canales MD [address] [address] [address] 12/13/2023 2:00 PM EDT Office Visit Cardiology, [facility] 132 [facility] [place] [address] Gris Alford CRNP 132 [facility] [place] [address] 02/26/2024 9:30 AM EST Cardiac Studies Cardiac Studies, [facility] 132 [facility] [place] [address] Health Maintenance Due Date Last Done Comments [...] Date/Time Associated Diagnosis Comments OUTSIDE LAB RESULTS 09/12/2023 documented in this encounter Results * OUTSIDE LAB RESULTS (09/12/2023) 09/12/2023 No Physician Data Unknown LABORATORY documented in this encounter Advance Directives * Full Code (Latest Code Status on File) Date Activated Date Inactivated Comments 04/15/2015 4:40 PM 04/16/2015 5:24 PM This order r eflects the patients wishes and were consensually agreed upon. Care Teams Casey Saw Operator Relationship Specialty Start Date End Date Edgar Gibbs MD [address] [place] [address] PCP - General Family Medicine 07/03/20 documented as of this encounter
--- OUTSIDE RECORDS SUMMARY | 2023-11-18 00:54 | External Medical Summary | Summary of Care ---
Author Name Unknown Organization [facility] Address [address] [place] [address] Phone [phone] Care Team Providers Care Pipe Insulator Helper Name Role Phone Edgar Gibbs MD Primary Care P rovider Reason for Visit * Reason Onset Date Comments Test Results 09/15/2023 Unexpected or In determinate Result Encounter Details Date Type Department Care Team (Late st Contact Info) Description 09/15/2023 Telephone Laboratory, [place] [address] [place] [address] Pako Ramos MD [address] [facility] [address] Test Results (Unexpected or Indeterminate [...] (GFR under 15 ml/min) ([facility]) take 2 pills 3 x daily 180 Tab 11 10/26/2018 Active Sodium Chloride Flush (NORMAL SALINE FLUSH) 0.9 % SOLN injection FLUSH ONCE DAILY WITH 10ml 300 mL 1 03/12/2019 Active Leuprolide Acetate (3 Month) 22.5 MG Subcutaneous Kit (Eligard) Inject 22.5 mg under the skin. Every 3 months 11/18/2020 Active Incruse Ellipta 62.5 MCG/ACT Inhalation Aerosol Powder Breath Activated (umeclidinium [place])Indications:C hronic obstructive pulmonary disease, unspecified COPD [...] mRNA, LNP-s, No Pre serve, 2-Dose Series (AugmentWare) 01/19/2021,06/10/2020,05/20/2020 HEP B - Hepatitis B (Dialysis/Immumocomp Pt) 12/20/2018,07/21/2018,06/19/2018 PPD 05/03/2018 Pneumococcal Conjugate Vacci ne, 20-valent ([id number]) 03/16/2022 Pneumococcal Polysaccharide PPV23 (Pneumovax) 12/28/2017 Seasonal [...] No 06/16/2023 Does the household have a [facility] source of income? (Household - for ages [...] unexpected or indeterminate finding on Matthew Rowe ([id number]) andasks that you review the following report. [...] you, Darrel Angeles, VICTORIANO Client Service Rep [facility] documented in this encounter Plan of Treatment Upcoming Encounters Date Type Department Care Team (Late st Contact Info) Description 09/25/2023 11:00 AM EDT Office Visit [address] [phone] Edgar Gibbs MD [address] [place] [address] 10/18/2023 10:00 AM EDT Appointment Interventional Radiology [facility], [facility] 1st Floor [address] [place] [address] 10/23/2023 7:40 AM EDT Office Visit Pulmonary Medicine, [facility] [place] [address] Tino Stapleton MD [address] [place] [address] 10/25/2023 3:15 PM EDT Office Visit Urology, [facility] [address] [facility] [place] [address] Travon Canales MD [address] [place] [address] 12/13/2023 2:00 PM EDT Office Visit Cardiology, [facility] [place] [address] Gris Alford CRNP [facility] [place] [address] 02/26/2024 9:30 AM EST Cardiac Studies Cardiac Studies, [facility] [address] [facility] [place] [address] Health Maintenance Due Date Last Done Comments [...] and were consensually agreed upon. Care Teams Pipe Insulator Helper Relationship Specialty Start Date End Date Edgar Gibbs MD [address] [place] [address] PCP - General Family Medicine 07/03/20 documented as of this encounter
--- OUTSIDE RECORDS SUMMARY | 2023-11-18 00:54 | External Medical Summary | Summary of Care ---
Author Name Unknown Organization [facility] Address [address] [place] [address] Phone [phone] Care Team Providers Care Railway Signal Technician Name Role Phone Edgar Gibbs MD Primary Care P rovider Reason for Visit * Reason Onset Date Comments Test Results 09/15/2023 Unexpected or In determinate Result Encounter Details Date Type Department Care Team (Late st Contact Info) Description 09/15/2023 Telephone Laboratory, [place] [address] [place] [address] Pako Ramos MD [address] [facility] [address] Test Results (Unexpected or Indeterminate [...] chronic, stage V (GFR under 15 ml/min) ([facility]) take 2 pills 3 x daily 180 Tab 11 10/26/2018 Active Sodium Chloride Flush (NORMAL SALINE FLUSH) 0.9 % SOLN injection FLUSH ONCE DAILY WITH 10ml 300 mL 1 03/12/2019 Active Leuprolide Acetate (3 Month) 22.5 MG Subcutaneous Kit (Eligard) Inject 22.5 mg under the skin. Every 3 months 11/18/2020 Active Incruse Ellipta 62.5 MCG/ACT Inhalation Aerosol Powder Breath Activated (umeclidinium [place])Indications:C hronic obstructive pulmonary disease, unspecified COPD type [...] mRNA, LNP-s, No Pre serve, 2-Dose Series (Pellucid Analytics) 01/19/2021,06/10/2020,05/20/2020 HEP B - Hepatitis B (Dialysis/Immumocomp Pt) 12/20/2018,07/21/2018,06/19/2018 PPD 05/03/2018 Pneumococcal Conjugate Vacci ne, 20-valent ([id number]) 03/16/2022 Pneumococcal Polysaccharide PPV23 (Pneumovax) 12/28/2017 Seasonal [...] 06/16/2023 Does the household have a [facility] source of income? (Household - for [...] - 09/18/2023 1:37 PM EDT Noted. Awaiting fire claims adjuster response. * Telephone Encounter - Darrel Angeles OSA - 09/15/2023 6:51 PM EDT [place]- The radiologist discovered an unexpected or indeterminate finding on Matthew Rowe ([id number]) andasks that you review the following report. [...] Thank you, VICTORIANO Zaldivar Client Service Rep [facility] documented in this encounter Plan of Treatment Upcoming Encounters Date Type Department Care Team (Late st Contact Info) Description 09/25/2023 11:00 AM EDT Office Visit [address] [address] Edgar Gibbs MD [address] [place] [address] 10/18/2023 10:00 AM EDT Appointment Interventional Radiology [facility], [facility] 1st Floor [address] [facility] [place] [address] 10/23/2023 7:40 AM EDT Office Visit Pulmonary Medicine, [facility] 132 [facility] [place] [address] Tino Stapleton MD [address] [place] [address] 10/25/2023 3:15 PM EDT Office Visit Urology, [facility] 132 [place] [address] Travon Canales MD [address] [place] [address] 12/13/2023 2:00 PM EDT Office Visit Cardiology, [facility] [address] Gris Alford CRNP [facility] [address] 02/26/2024 9:30 AM EST Cardiac Studies Cardiac Studies, [facility] 132 [place] [address] Health Maintenance Due Date Last Done Comments [...] and were consensually agreed upon. Care Teams Railway Signal Technician Relationship Specialty Start Date End Date Edgar Gibbs MD [address] [place] [address] PCP - General Family Medicine 07/03/20 documented as of this encounter
--- OUTSIDE RECORDS SUMMARY | 2023-11-18 00:54 | External Medical Summary | Summary of Care ---
Author Name Unknown Organization [facility] Address [address] [place] [address] Phone [phone] Care Team Providers Care Hydro Station Supervisor Name Role Phone Edgar Gibbs MD Primary Care P rovider Reason for Referral * Precert (Within 10 days (routine)) - Authorized Specialty Diagnoses / Procedures Referred By Contac t Referred To Contact Radiology Diagnoses Lung nodule Procedures CT CHEST WO CONTRAST Tino Mcdowell MD [address] [facility] [place] [address] Referral ID Status Reason Start Date Expiration Date V isits Requested Visits Authorized [id number] Authorized 09/19/2023 999 999 Reason for Visit * Reason Onset Date Comments Test Results 09/15/2023 Unexpected or In determinate Result Encounter Details Date Type Department Care Team (Late st Contact Info) Description 09/15/2023 Telephone Laboratory, [place] [address] [place] [address] Pako Ramos MD [address] [place] [address] Test Results (Unexpected or Indeterminate ... Allergies [...] Acetate (3 Month) 22.5 MG Subcutaneous Kit (Queue-it) Inject 22.5 mg under the skin. Every 3 months 11/18/2020 Active Incruse Ellipta 62.5 MCG/ACT Inhalation Aerosol Powder Breath Activated (umeclidinium [place])Indications:C hronic obstructive pulmonary disease, unspecified COPD type ([facility]) Inhale 1 Puff by mouth in the morning. 30 Each 11 03/02/2022 Active Nephro-Farzana 0.8 MG Oral Tablet TAKE ONE TABLET BY MOUTH ONCE DAILY 90 Tablet 3 11/22/2022 Active Ventolin HFA 108 (90 Base) MCG/ACT Inhalation Aerosol SolutionIndications:C OPD exacerbation ([facility]) INHALE TWO PUFFS BY [...] PPD 05/03/2018 Pneumococcal Conjugate Vacci ne, 20-valent ([id number]) 03/16/2022 Pneumococcal Polysaccharide PPV23 (Pneumovax) 12/28/2017 Seasonal [...] - 09/18/2023 1:37 PM EDT Noted. Awaiting plastic panel installer response. * Telephone Encounter - Darrel Angeles OSA - 09/15/2023 6:51 PM EDT [place]- The radiologist discovered an unexpected or indeterminate finding on Matthew Rowe ([id number]) andasks that you review the following report. [...] you, VICTORIANO Zaldivar Client Service Rep [facility] documented in this encounter Plan of Treatment Upcoming Encounters Date Type Department Care Team ([facility] st Contact Info) Description 09/25/2023 11:00 AM EDT Office Visit [facility] [address] [place] [address] Edgar Gibbs MD [address] [place] [address] 10/18/2023 10:00 AM EDT Appointment Interventional Radiology [facility], [facility] 1st Floor [address] [place] [address] 10/23/2023 7:40 AM EDT Office Visit Pulmonary Medicine, [facility] 132 [facility] [place] [address] Tino Mcdowell MD [address] [place] [address] 10/25/2023 3:15 PM EDT Office Visit Urology, [facility] 132 [facility] [place] [address] Travon Canales MD [address] [address] [address] 12/13/2023 2:00 PM EDT Office Visit Cardiology, [facility] [address] [facility] [place] [address] Gris Alford CRNP 132 [facility] [place] [address] 02/26/2024 9:30 AM EST Cardiac Studies Cardiac Studies, [facility] [address] [facility] [place] [address] Scheduled Orders Name Type Priority Associated Diagnoses [...] and were consensually agreed upon. Care Teams Hydro Station Supervisor Relationship Specialty Start Date End Date Edgar Gibbs MD [address] [place] [address] PCP - General Family Medicine 07/03/20 documented as of this encounter
--- OUTSIDE RECORDS SUMMARY | 2023-11-18 00:55 | External Medical Summary | Summary of Care ---
Author Name Unknown Organization [facility] Address [address] [facility] [place] [address] Phone [phone] Care Team Providers Care Geomorphology Teacher Name Role Phone Edgar Gibbs MD Primary Care P rovider Reason for Visit * Reason Comments Outpatient Testing Encounter Details Date Type Department Care Team ([facility] st Contact Info) Description 09/18/2023 9:40 AM EDT Laboratory [facility] [address] [facility] [address] [place] [address] Chronic obstructive pulmonary disease with acute exacerbation (HCC); Need for hepatitis C screening test; Prostate cancer (HCC); Bladder stones Allergies Active Allergy Reactions Criticality [...] Acetate (3 Month) 22.5 MG Subcutaneous Kit ([id number]) Inject 22.5 mg under the skin. Every 3 months 11/18/2020 Active Incruse Ellipta 62.5 MCG/ACT Inhalation Aerosol Powder Breath Activated (umeclidinium [place])Indications:C hronic obstructive pulmonary disease, unspecified COPD type [...] PPD 05/03/2018 Pneumococcal Conjugate Vacci ne, 20-valent ([id number]) 03/16/2022 Pneumococcal Polysaccharide PPV23 (Pneumovax) 12/28/2017 Seasonal [...] No 06/16/2023 Does the household have a [facility] source of income? (Household - for [...] Upcoming Encounters Date Type Department Care Team ([facility] st Contact Info) Description 09/25/2023 11:00 AM EDT Office Visit [facility] [address] [place] [address] Edgar Gibbs MD [address] [place] [address] 10/18/2023 10:00 AM EDT Appointment Interventional Radiology [facility], [facility] 1st Floor [address] [place] [address] 10/23/2023 7:40 AM EDT Office Visit Pulmonary Medicine, [facility] 132 [facility] [place] [address] Tino Stapleton MD [address] [facility] [place] [address] 10/25/2023 3:15 PM EDT Office Visit Urology, [facility] 132 [facility] [place] [address] Travon Canales MD [address] [place] [address] 12/13/2023 2:00 PM EDT Office Visit Cardiology, [facility] 132 [facility] [place] [address] Gris Alford CRNP [address] [facility] [place] [address] 02/26/2024 9:30 AM EST Cardiac Studies Cardiac Studies, [facility] 132 [place] [address] Pending Results Name Type Priority Associated Diagnoses Date /Time [id number], QN Lab Routine Chronic obstructive pulmonary disease with acute exacerbation (HCC) 09/18/2023 9:38 AM EDT HEPATITIS C ANTIBODY SCREEN WITH PROGRESSION TO HEPATITIS C RNA QUANTITATIVE Lab Routine Need for hepatitis C screening test 09/18/2023 9:38 AM EDT PSA Lab Routine Prostate cancer (HCC) Bladder stones 09/18/2023 9:38 AM EDT HEPATITIS C ANTIBODY Lab Routine Need for hepatitis C screening test 09/18/2023 9:38 AM EDT HEPATITIS C RNA ADD ON Lab Routine Need for hepatitis C screening test 09/18/2023 9:38 AM EDT Health Maintenance Due Date Last [...] obstructive pulmonary disease with acute exacerbation (HCC) Obstructive chronic bronchitis with exacerbation Need for hepatitis C screening test Special screening examination for other specified viral diseases Prostate cancer (HCC) Malignant neoplasm of prostate Bladder stones Other calculus in bladder documented in this encounter Advance Directives * Full Code (Latest Code Status on File) Date Activated Date Inactivated Comments 04/15/2015 4:40 PM 04/16/2015 5:24 PM This order r eflects the patients wishes and were consensually agreed upon. Care Teams Geomorphology Teacher Relationship Specialty Start Date End Date Edgar Gibbs MD [address] [place] [phone] PCP - General Family Medicine 07/03/20 documented as of this encounter
--- OUTSIDE RECORDS SUMMARY | 2023-11-18 00:55 | External Medical Summary | Summary of Care ---
Author Name Unknown Organization [facility] Address [address] [facility] [place] [address] Phone [phone] Care Team Providers Care Electric Distribution Engineer Name Role Phone Edgar Gibbs MD Primary Care P rovider Encounter Details Date Type Department Care Team (Late st Contact Info) Description 08/29/2023 Result Scan Unspecified Department <No scans attached> Allergies Active Allergy Reactions Criticality Noted Date Comments Latex 07/19/2019 Pantoprazole Sodium Edema face/lips/tongue High 04/0 02/2014 documented as of this encounter (statuses as of 09/04/2023) Medications Medication Sig Dispensed Refills Start Date [...] MCG/ACT Inhalation Aerosol Powder Breath Activated (umeclidinium [place])Indications:C hronic obstructive pulmonary disease, unspecified COPD type [...] as of this encounter (statuses as of 09/04/2023) Active Problems Problem Noted Date Diagnosed Date [...] as of this encounter (statuses as of 09/04/2023) Resolved Problems Problem Noted Date Diagnosed Date [...] as of this encounter (statuses as of 09/04/2023) Immunizations Name Administration Dates Next Due COVID-19 mRNA, LNP-s, No Pre serve, 2-Dose Series (Pycno) 01/19/2021,06/10/2020,05/20/2020 HEP B - Hepatitis B (Dialysis/Immumocomp Pt) 12/20/2018,07/21/2018,06/19/2018 PPD 05/03/2018 Pneumococcal Conjugate Vacci ne, 20-valent ([id number]) 03/16/2022 Pneumococcal Polysaccharide PPV23 (Pneumovax) 12/28/2017 Seasonal [...] Care Team (Late st Contact Info) Description 09/13/2023 12:20 PM EDT Office Visit Pulmonary Medicine, [facility] 132 [facility] [place] [address] Tino Stapleton MD [address] [place] [address] 09/18/2023 9:00 AM EDT Laboratory Laboratory Patient Service [address] [phone] [facility] [address] [address] 09/25/2023 11:00 AM EDT Office Visit [address] [address] Edgar Gibbs MD [address] [place] [address] 10/18/2023 10:00 AM EDT Appointment Interventional Radiology [facility], [facility] 1st Floor [address] [place] [address] 10/25/2023 3:15 PM EDT Office Visit Urology, [facility] 132 [facility] [place] [address] Travon Canales MD [address] [place] [address] 12/06/2023 1:40 PM EDT Office Visit Pulmonary Medicine, [facility] 132 [facility] [place] [address] Tino Stapleton MD [address] [place] [address] 12/13/2023 2:00 PM EDT Office Visit Cardiology, [facility] 132 [facility] [place] [address] Gris Alford CRNP [address] [place] [address] 02/26/2024 9:30 AM EST Cardiac Studies Cardiac Studies, [facility] [address] [place] [address] Health Maintenance Due Date Last Done Comments [...] Date/Time Associated Diagnosis Comments OUTSIDE LAB RESULTS 08/29/2023 documented in this encounter Results * OUTSIDE LAB RESULTS (08/29/2023) 08/29/2023 No Physician Data Unknown LABORATORY documented in this encounter Advance Directives * Full Code (Latest Code Status on File) Date Activated Date Inactivated Comments 04/15/2015 4:40 PM 04/16/2015 5:24 PM This order r eflects the patients wishes and were consensually agreed upon. Care Teams Electric Distribution Engineer Relationship Specialty Start Date End Date Edgar Gibbs MD [address] [place] [phone] PCP - General Family Medicine 07/03/20 documented as of this encounter
--- OUTSIDE RECORDS SUMMARY | 2023-11-18 00:55 | External Medical Summary ---
Author Name Unknown Address Unknown Organization : Laboratory Report Ordering Provider Test Date Status CIARA SANTOS 09/18/2023 09:38:51 Final Observation Date Value Abnormality Reference (Units ) Status Alpha-1 antitrypsin 09/18/2023 09:38:51 180 83-199 (mg/dL) Final
Test Performed at:
[facility]
[address] [facility]
[place] [address]
Carlos Angeles M.D., Ph.D.,Director of Laboratories Performing Location
--- OUTSIDE RECORDS SUMMARY | 2023-11-18 00:55 | External Medical Summary | Summary of Care ---
Author Name Unknown Organization [facility] Address [address] [facility] [place] [address] Phone [phone] Care Team Providers Care Supervisor Assembly Stock Name Role Phone Edgar Gibbs MD Primary Care P rovider Encounter Details Date Type Department Care Team (Late st Contact Info) Description 09/14/2023 Telephone Nephrology, [place] [place] [address] [facility] [address] [place] [address] Pako Ramos MD 200 [facility] [place] [address] Allergies Active Allergy Reactions Criticality Noted Date Comments Latex 07/19/2019 Pantoprazole Sodium Edema face/lips/tongue High 04/0 02/2014 documented as of this encounter (statuses as of 09/14/2023) Medications Medication Sig Dispensed Refills Start Date [...] Acetate (3 Month) 22.5 MG Subcutaneous Kit (Hello Curry) Inject 22.5 mg under the skin. Every 3 months 11/18/2020 Active Incruse Ellipta 62.5 MCG/ACT Inhalation Aerosol Powder Breath Activated (umeclidinium [place])Indications:C hronic obstructive pulmonary disease, unspecified COPD type [...] as of this encounter (statuses as of 09/14/2023) Active Problems Problem Noted Date Diagnosed Date [...] as of this encounter (statuses as of 09/14/2023) Resolved Problems Problem Noted Date Diagnosed Date Resolved Date Chronic obstructive pulmonary disease 03/02/2022 01/12/2023 Overview: Per COPD GOLD Classification Atypical pneumonia 03/02/2022 3 Demand ischemia 03/02/2022 06/03/2022 Hypoxemia 03/02/2022 06/03/2022 Chronic indwelling Gambao catheter 08/27/2021 06/03/2022 Central venous catheter in [...] as of this encounter (statuses as of 09/14/2023) Immunizations Name Administration Dates Next Due COVID-19 mRNA, LNP-s, No Pre serve, 2-Dose Series (Excellence4u) 01/19/2021,06/10/2020,05/20/2020 HEP B - Hepatitis B (Dialysis/Immumocomp Pt) 12/20/2018,07/21/2018,06/19/2018 PPD 05/03/2018 Pneumococcal Conjugate Vacci ne, 20-valent ([id number]) 03/16/2022 Pneumococcal Polysaccharide PPV23 (Pneumovax) 12/28/2017 Seasonal [...] Care Team (Late st Contact Info) Description 09/18/2023 9:00 AM EDT Laboratory Laboratory Patient Service [address] [phone] [address] 09/25/2023 11:00 AM EDT Office Visit [facility] [address] [place] [address] Edgar Gibbs MD [address] [place], [place] [phone] 10/18/2023 10:00 AM EDT Appointment Interventional Radiology [facility], [facility] 1st Floor [address] [place] [address] 10/23/2023 7:40 AM EDT Office Visit Pulmonary Medicine, [facility] 132 [facility] [address] Tino Stapleton MD [address] [place] [address] 10/25/2023 3:15 PM EDT Office Visit Urology, [facility] 132 [facility] [place] [address] Travon Canales MD [address] [place] [address] [address] 12/13/2023 2:00 PM EDT Office Visit Cardiology, [facility] 132 [facility] [place] [address] Gris Alford CRNP 132 [facility] [place] [address] 02/26/2024 9:30 AM EST Cardiac Studies Cardiac Studies, [facility] [address] [place] [address] Scheduled Orders Name Type Priority Associated Diagnoses Orde r Schedule XR CHEST 2 VIEWS Medical Imaging Routine Pleural effusion, right Expected: 09/15/2023, Expires: 10/14/2024 Health Maintenance Due Date Last Done Comments [...] were consensually agreed upon. Care Teams Supervisor Assembly Stock Relationship Specialty Start Date End Date Edgar Gibbs MD [address] [place] [address] [place] [address] PCP - General Family Medicine 07/03/20 documented as of this encounter
--- OUTSIDE RECORDS SUMMARY | 2023-11-18 00:55 | External Medical Summary ---
Author Name Unknown Address Unknown Organization K01:LABORATORY [facility] - [address] [place] [address] Laboratory Report Ordering Provider Test Date Status CIARA SANTOS 09/18/2023 09:38:51 Final Observation Date Value Abnormality Reference (Units ) Status Hep C Ab 09/18/2023 09:38:51 Negative Negative Final Further HCV quantitative dao ting not performed per protocol. Performing Location LABORATORY [facility] - [address] [place] [address]
--- OUTSIDE RECORDS SUMMARY | 2023-11-18 00:55 | External Medical Summary ---
Author Name Unknown Address Unknown Organization K01:LABORATORY [facility] - [address] [place] [address] Laboratory Report Ordering Provider Test Date Status ENRRIQUE VILLALBA 09/18/2023 09:38:51 Final Observation Date Value Abnormality Reference (Units ) Status PSA 09/18/2023 09:38:51 0.30 <4.10 (ng/ mL) Final Performing Location LABORATORY [facility] - [address] [place] [address]
--- OUTSIDE RECORDS SUMMARY | 2023-11-18 00:55 | External Medical Summary | Summary of Care ---
Author Name Unknown Organization [facility] Address [address] [place] [address] Phone [phone] Care Team Providers Care Psych Arnp Name Role Phone Edgar Gibbs MD Primary Care P rovider Reason for Visit * Reason Onset Date Comments Depression 09/15/2023 Unexpected or In determinate Result Encounter Details Date Type Department Care Team (Late st Contact Info) Description 09/15/2023 Telephone Laboratory, [place] [address] [place] [address] Pako Ramos MD 200 [place] [address] Depression (Unexpected or Indeterminate Re... Allergies Active Allergy Reactions Criticality Noted Date Comments Latex 07/19/2019 Pantoprazole Sodium Edema face/lips/tongue High 04/0 02/2014 documented as of this encounter (statuses as of 09/15/2023) Medications Medication Sig Dispensed Refills Start Date [...] MCG/ACT Inhalation Aerosol Powder Breath Activated (umeclidinium [place])Indications:C hronic obstructive pulmonary disease, unspecified COPD type [...] as of this encounter (statuses as of 09/15/2023) Active Problems Problem Noted Date Diagnosed Date [...] as of this encounter (statuses as of 09/15/2023) Resolved Problems Problem Noted Date Diagnosed Date [...] as of this encounter (statuses as of 09/15/2023) Immunizations Name Administration Dates Next Due COVID-19 mRNA, LNP-s, No Pre serve, 2-Dose Series (RxVantage) 01/19/2021,06/10/2020,05/20/2020 HEP B - Hepatitis B (Dialysis/Immumocomp Pt) 12/20/2018,07/21/2018,06/19/2018 PPD 05/03/2018 Pneumococcal Conjugate Vacci ne, 20-valent ([id number]) 03/16/2022 Pneumococcal Polysaccharide PPV23 (Pneumovax) 12/28/2017 Seasonal [...] unexpected or indeterminate finding on Matthew Rowe ([id number]) andasks that you review the following report. [...] Thank you, Darrel Angeles, VICTORIANO Client Service [facility] documented in this encounter Plan of Treatment Upcoming Encounters Date Type Department Care Team (Late st Contact Info) Description 09/18/2023 9:00 AM EDT Laboratory Laboratory Patient Service [address] [phone] [address] 09/25/2023 11:00 AM EDT Office Visit [address] [phone] Edgar Gibbs MD [address] [place] [address] 10/18/2023 10:00 AM EDT Appointment Interventional Radiology [facility], [facility] 1st Floor [address] [facility] [address] 10/23/2023 7:40 AM EDT Office Visit Pulmonary Medicine, [facility] 132 [facility] [place] [address] Tino Stapleton MD [address] [place] [address] 10/25/2023 3:15 PM EDT Office Visit Urology, [facility] 132 [place] [address] Travon Canales MD [address] [place] [address] 12/13/2023 2:00 PM EDT Office Visit Cardiology, [facility] 132 [place] [address] Gris Alford CRNP 132 [place] [address] 02/26/2024 9:30 AM EST Cardiac Studies Cardiac Studies, [facility] 132 [place] [address] Health Maintenance Due Date Last Done Comments [...] and were consensually agreed upon. Care Teams Psych Arnp Relationship Specialty Start Date End Date Edgar Gibbs MD [address] [place] [address] PCP - General Family Medicine 07/03/20 documented as of this encounter
--- OUTSIDE RECORDS SUMMARY | 2023-11-18 00:55 | External Medical Summary | Summary of Care ---
Author Name Unknown Organization [facility] Address [address] [place] [address] Phone [phone] Care Team Providers Care Job Checker Name Role Phone Edgar Gibbs MD Primary Care P rovider Reason for Visit * Reason Onset Date Comments Depression 09/15/2023 Unexpected or In determinate Result Encounter Details Date Type Department Care Team (Late st Contact Info) Description 09/15/2023 Telephone Laboratory, [place] [address] [place] [address] Pako Ramos MD 200 [facility] [place] [address] Depression (Unexpected or Indeterminate Re... Allergies [...] Inhalation Aerosol Powder Breath Activated (umeclidinium [place])Indications:C hronic obstructive pulmonary disease, unspecified COPD type [...] mRNA, LNP-s, No Pre serve, 2-Dose Series (App Annie) 01/19/2021,06/10/2020,05/20/2020 HEP B - Hepatitis B (Dialysis/Immumocomp Pt) 12/20/2018,07/21/2018,06/19/2018 PPD 05/03/2018 Pneumococcal Conjugate Vacci ne, 20-valent ([id number]) 03/16/2022 Pneumococcal Polysaccharide PPV23 (Pneumovax) 12/28/2017 Seasonal [...] No 06/16/2023 Does the household have a [facility] source of income? (Household - for [...] unexpected or indeterminate finding on Matthew Rowe ([id number]) andasks that you review the following report. [...] Thank you, Darrel Angeles, VICTORIANO Client Service [facility] documented in this encounter Plan of Treatment Upcoming Encounters Date Type Department Care Team (Late st Contact Info) Description 09/18/2023 9:00 AM EDT Laboratory Laboratory Patient Service [address] [phone] [address] 09/25/2023 11:00 AM EDT Office Visit [address] [phone] Edgar Gibbs MD [address] [place] [address] 10/18/2023 10:00 AM EDT Appointment Interventional [place] [facility] [place] [facility] 1st Floor [address] [facility] [address] 10/23/2023 7:40 AM EDT Office Visit Pulmonary Medicine, [facility] 132 [facility] [place] [address] Tino Stapleton MD [address] [place] [address] 10/25/2023 3:15 PM EDT Office Visit Urology, [facility] 132 [place] [address] Travon Canales MD [address] [place] [address] 12/13/2023 2:00 PM EDT Office Visit Cardiology, [facility] 132 [facility] [address] Gris Alford CRNP 132 [place] [address] 02/26/2024 9:30 AM EST Cardiac Studies Cardiac Studies, [facility] 132 [place] [address] Health Maintenance Due Date Last Done Comments [...] and were consensually agreed upon. Care Teams Job Checker Relationship Specialty Start Date End Date Edgar Gibbs MD [address] [place] [address] PCP - General Family Medicine 07/03/20 documented as of this encounter
--- OUTSIDE RECORDS SUMMARY | 2023-11-18 00:56 | External Medical Summary | Summary of Care ---
Author Name Unknown Organization [facility] Address [address] [facility] [place] [address] Phone [phone] Care Team Providers Care Cold Mill Supervisor Name Role Phone Edgar Clements MD Primary Care P rovider Reason for Visit * Reason Onset Date Comments Medication Refill 08/16/2023 Encounter Details Date Type Department Care Team ([facility] st Contact Info) Description 08/16/2023 Refill Family [address] [phone] Edgar Clements MD [address] [place] [address] Allergies Active Allergy Reactions Criticality Noted Date Comments Latex 07/19/2019 Pantoprazole Sodium Edema face/lips/tongue High 04/0 02/2014 documented as of this encounter (statuses as of 08/16/2023) Medications Medication Sig Dispensed Refills Start Date [...] MCG/ACT Inhalation Aerosol Powder Breath Activated (umeclidinium [place])Indication s:Chronic obstructive pulmonary disease, unspecified COPD type [...] the morning. 90 Tablet 3 08/16/2023 Active amLODIPine Besylate 5 MG Oral Tablet (Norvasc) TAKE 1 TABLET BY MOUTH ONCE DAILY IN THE MORNING 90 Tablet 2 04/04/2023 08/16/2023 Discontinue d(Refill) documented as of this encounter (statuses as of 08/16/2023) Active Problems Problem Noted Date Diagnosed Date [...] as of this encounter (statuses as of 08/16/2023) Resolved Problems Problem Noted Date Diagnosed Date [...] as of this encounter (statuses as of 08/16/2023) Immunizations Name Administration Dates Next Due COVID-19 mRNA, LNP-s, No Pre serve, 2-Dose Series (Pfizer) 01/19/2021,06/10/2020,05/20/2020 HEP B - Hepatitis B (Dialysis/Immumocomp Pt) 12/20/2018,07/21/2018,06/19/2018 PPD 05/03/2018 Pneumococcal Conjugate Vacci ne, 20-valent ([id number]) 03/16/2022 Pneumococcal Polysaccharide PPV23 (Pneumovax) 12/28/2017 Seasonal [...] Telephone Encounter - Edgar Clements MD - 08/16/2023 3:03 PM EDTSigned Prescriptions: Disp Refills amLODIPine Besylate 5 MG Oral Tablet (Norv*90 Tab*3 Sig: Take 1 Tablet by mouth in the morning. Authorizing Provider: EDGAR CLEMENTS * Telephone Encounter - Sarah Vázquez LPN - 08/16/2023 1:18 PM EDTPending Prescriptions: Disp Refills amLODIPine Besylate 5 MG Oral Tablet (Norv*90 Tab*2 * Telephone Encounter - Nhung Alberts CPhT - 08/16/2023 11:36 AM EDT Pt called the [facility] Specialty clinic in error. Please advise if refill is appropriate. Patient is up to date for office visits. Pending Prescriptions: Disp Refills amLODIPine Besylate 5 MG Oral Tablet (Nor*90 Tab*2 Last Visit: 06/16/2023 (in office), Visit date not found (telemedicine) Next Visit: 09/25/2023 If no future appointments scheduled, and last appointment is greater than a year ago, please schedule patient for a follow-up appointment Last date the medication was ordered: 04/04/23 Pharmacy: [facility] [address] [facility] Is this request for a controlled substance?No it is not controlled. Urine Drug Screen:No results found for this or any previous visit. Patient Phone Numbers Labs: Lab Results Component Value Date/Time CREAT 9.2 (H) 11/21/2022 01:37 PM CREAT 4.1 (H) 02/11/2020 12:16 PM POTASSIUM 5.1 11/21/2022 01:37 PM POTASSIUM 3.8 02/11/2020 12:16 PM LDLCALC 56 11/21/2022 01:37 PM LDLCALC 59 04/24/2014 07:42 AM ALT 97 (H) 11/21/2022 01:37 PM ALT 18 09/03/2014 01:20 PM Nhung Humphreys CPhT Functional Analyst III [facility] 08/16/2023,11:38 AM documented in this encounter Plan of Treatment Upcoming Encounters Date Type Department Care Team (Late st Contact Info) Description 09/13/2023 12:20 PM EDT Office Visit Pulmonary Medicine, [facility] [address] [facility] [place] [address] Tino Stapleton MD [address] [place] [address] 09/18/2023 9:00 AM EDT Laboratory Laboratory Patient Service [place], [address] [phone] Have, [facility] [address] [place] [address] 09/25/2023 11:00 AM EDT Office Visit [facility] [address] [place] [phone] Edgar Clements MD [address] [place] [address] 10/18/2023 11:00 AM EDT Appointment Interventional Radiology [place], [facility] 1st Floor [address] [place] [address] 10/25/2023 3:15 PM EDT Office Visit Urology, [facility] [address] [place] [address] Travon Canales MD 27 [facility] [address] [place] [address] 12/06/2023 1:40 PM EDT Office Visit Pulmonary Medicine, [facility] 132 [facility] [place] [address] Tino Stapleton MD [address] [facility] [address] 12/13/2023 2:00 PM EDT Office Visit Cardiology, [facility] [address] [facility] [place] [address] Gris Alford CRNP 132 [facility] [place] [address] 02/26/2024 9:30 AM EST Cardiac Studies Cardiac Studies, [facility] [address] [place] [address] Health Maintenance Due Date Last Done Comments [...] and were consensually agreed upon. Care Teams Cold Mill Supervisor Relationship Specialty Start Date End Date Edgar Clements MD [address] [place] [phone] PCP - General Family Medicine 07/03/20 documented as of this encounter
--- OUTSIDE RECORDS SUMMARY | 2023-11-18 00:56 | External Medical Summary | Summary of Care ---
Author Name Unknown Organization [facility] Address [address] [facility] [place] [address] Phone [phone] Care Team Providers Care Vegetable Canner Name Role Phone Edgar Gibbs MD Primary Care P rovider Encounter Details Date Type Department Care Team (Late st Contact Info) Description 07/20/2023 Orders Only Nephrology, [facility] 200 [facility] [place] [address] Emilee Souza MD 200 [facility] [place] [address] Allergies Active Allergy Reactions Criticality Noted Date Comments Latex 07/19/2019 Pantoprazole Sodium Edema face/lips/tongue High 04/0 02/2014 documented as of this encounter (statuses as of 07/20/2023) Medications Medication Sig Dispensed Refills Start Date End Date Status Cholecalciferol 2000 units Capsule Take 1 Capsule by mouth in the morning. 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 Every 3 months 11/18/2020 Active Incruse Ellipta 62.5 MCG/ACT Inhalation Aerosol Powder Breath Activated (umeclidinium [place])Indications:C hronic obstructive pulmonary disease, unspecified COPD type [...] needed for Anxiety. 30 Tablet 03/15/2023 Active amLODIPine Besylate 5 MG Oral [...] as of this encounter (statuses as of 07/20/2023) Active Problems Problem Noted Date Diagnosed Date [...] as of this encounter (statuses as of 07/20/2023) Resolved Problems Problem Noted Date Diagnosed Date [...] as of this encounter (statuses as of 07/20/2023) Immunizations Name Administration Dates Next Due COVID-19 mRNA, LNP-s, No Pre serve, 2-Dose Series (ADINCON) 01/19/2021,06/10/2020,05/20/2020 HEP B - Hepatitis B (Dialysis/Immumocomp Pt) 12/20/2018,07/21/2018,06/19/2018 PPD 05/03/2018 Pneumococcal Conjugate Vacci ne, 20-valent ([id number]) 03/16/2022 Pneumococcal Polysaccharide PPV23 (Pneumovax) 12/28/2017 Seasonal [...] 12:20 PM EDT Office Visit Pulmonary Medicine, [facility] 132 [facility] [place] [address] Tino Stapleton MD [address] [facility] [address] 09/18/2023 9:00 AM EDT Laboratory Laboratory [facility] Service [address] [phone] [address] 09/25/2023 11:00 AM EDT Office Visit [address] [phone] Edgar Gibsb MD [address] [place] [address] 10/18/2023 11:00 AM EDT Appointment Interventional Radiology [facility], [facility] 1st Floor [address] [place] [phone] 10/25/2023 3:15 PM EDT Office Visit Urology, [facility] 132 [facility] [place] [address] Travon Canales MD [address] [place] [address] [place] [address] 12/06/2023 1:40 PM EDT Office Visit Pulmonary Medicine, [facility] 132 [facility] [place] [address] Tino Stapleton MD [address] [place] [address] 12/13/2023 2:00 PM EDT Office Visit Cardiology, [facility] 132 [facility] [place] [address] Gris Alford CRNP 132 [facility] [place] [address] 02/26/2024 9:30 AM EST Cardiac Studies Cardiac Studies, [facility] 132 [facility] [place] [address] Health Maintenance Due Date Last Done Comments [...] Procedure Name Priority Date/Time Associated Diagnosis Comments XR CHEST 1 VIEW Routine 07/05/2023 documented in this encounter Results * XR CHEST 1 VIEW (07/05/2023) Anatomical Region Laterality Modality Chest Other 07/05/2023 Emilee Souza MD RADIOLOGY (RAD [facility]) documented in this encounter Advance Directives * Full Code (Latest Code Status on File) Date Activated Date Inactivated Comments 04/15/2015 4:40 PM 04/16/2015 5:24 PM This order r eflects the patients wishes and were consensually agreed upon. Care Teams Vegetable Canner Relationship Specialty Start Date End Date Edgar Gibbs MD [address] [place] [address] PCP - General Family Medicine 07/03/20 documented as of this encounter
--- OUTSIDE RECORDS SUMMARY | 2023-11-18 00:56 | External Medical Summary | Summary of Care ---
Author Name Unknown Organization [facility] Address [address] [facility] [place] [address] Phone [phone] Care Team Providers Care Supervisor Rolling Room Name Role Phone Edgar Gibbs MD Primary Care P rovider Encounter Details Date Type Department Care Team (Late st Contact Info) Description 08/22/2023 Result Scan Unspecified Department Pako Ramos MD [address] [facility] [address] <No scans attached> Allergies Active Allergy Reactions Criticality Noted Date Comments Latex 07/19/2019 Pantoprazole Sodium Edema face/lips/tongue High /02/2014 documented as of this encounter (statuses as of 08/28/2023) Medications Medication Sig Dispensed Refills Start Date End Date Status Cholecalciferol 2000 units Capsule Take 1 Capsule by mouth in the morning. 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 Every 3 months 11/18/2020 Active Incruse Ellipta 62.5 MCG/ACT Inhalation Aerosol Powder Breath Activated (umeclidinium [place])Indications:C hronic obstructive pulmonary disease, unspecified COPD type [...] as of this encounter (statuses as of 08/28/2023) Active Problems Problem Noted Date Diagnosed Date [...] as of this encounter (statuses as of 08/28/2023) Resolved Problems Problem Noted Date Diagnosed Date [...] as of this encounter (statuses as of 08/28/2023) Immunizations Name Administration Dates Next Due COVID-19 mRNA, LNP-s, No Pre serve, 2-Dose Series (Vidapp) 01/19/2021,06/10/2020,05/20/2020 HEP B - Hepatitis B (Dialysis/Immumocomp Pt) 12/20/2018,07/21/2018,06/19/2018 PPD 05/03/2018 Pneumococcal Conjugate Vacci ne, 20-valent ([id number]) 03/16/2022 Pneumococcal Polysaccharide PPV23 (Pneumovax) 12/28/2017 Seasonal [...] 12:20 PM EDT Office Visit Pulmonary Medicine, [facility] 132 [facility] [place] [address] Tino Stapleton MD [address] [place] [address] 09/18/2023 9:00 AM EDT [facility] [address] [place] [phone] [address] 09/25/2023 11:00 AM EDT Office Visit [facility] [address] [place] [address] Edgar Gibbs MD [address] [place] [address] 10/18/2023 10:00 AM EDT Appointment Interventional Radiology [facility] [place], [facility] 1st Floor [address] [place] [address] 10/25/2023 3:15 PM EDT Office Visit Urology, [facility] 132 [facility] [place] [address] Travon Canales MD [address] [place] [address] [address] 12/06/2023 1:40 PM EDT Office Visit Pulmonary Medicine, [facility] 132 [facility] [place] [address] Tino Stapleton MD [address] [place] [address] 12/13/2023 2:00 PM EDT Office Visit Cardiology, [facility] [address] [place] [address] Gris Alford CRNP [address] [place] [address] 02/26/2024 9:30 AM EST Cardiac Studies Cardiac Studies, [facility] [address] [place] [address] Health Maintenance Due Date Last Done Comments [...] Date/Time Associated Diagnosis Comments OUTSIDE LAB RESULTS 08/22/2023 documented in this encounter Results * OUTSIDE LAB RESULTS (08/22/2023) 08/22/2023 Pako Ramos MD LABORATORY documented in this encounter Advance Directives * Full Code (Latest Code Status on File) Date Activated Date Inactivated Comments 04/15/2015 4:40 PM 04/16/2015 5:24 PM This order r eflects the patients wishes and were consensually agreed upon. Care Teams Supervisor Rolling Room Relationship Specialty Start Date End Date Edgar Gibbs MD [address] [place] [address] PCP - General Family Medicine 07/03/20 documented as of this encounter
--- OUTSIDE RECORDS SUMMARY | 2023-11-18 00:56 | External Medical Summary | Summary of Care ---
Author Name Unknown Organization [facility] Address [address] [facility] [place] [address] Phone [phone] Care Team Providers Care Warehouse Director Name Role Phone Edgar Gibbs MD Primary Care P rovider Encounter Details Date Type Department Care Team (Late st Contact Info) Description 08/01/2023 Result Scan Unspecified Department <No scans attached> Allergies Active Allergy Reactions Criticality Noted Date Comments Latex 07/19/2019 Pantoprazole Sodium Edema face/lips/tongue High 04/0 02/2014 documented as of this encounter (statuses as of 08/07/2023) Medications Medication Sig Dispensed Refills Start Date [...] MCG/ACT Inhalation Aerosol Powder Breath Activated (umeclidinium [place])Indications:C hronic obstructive pulmonary disease, unspecified COPD type ([facility]) Inhale 1 Puff by mouth in the [...] as of this encounter (statuses as of 08/07/2023) Active Problems Problem Noted Date Diagnosed Date [...] as of this encounter (statuses as of 08/07/2023) Resolved Problems Problem Noted Date Diagnosed Date [...] as of this encounter (statuses as of 08/07/2023) Immunizations Name Administration Dates Next Due COVID-19 mRNA, LNP-s, No Pre serve, 2-Dose Series ([employer]) 01/19/2021,06/10/2020,05/20/2020 HEP B - Hepatitis B (Dialysis/Immumocomp Pt) 12/20/2018,07/21/2018,06/19/2018 PPD 05/03/2018 Pneumococcal Conjugate Vacci ne, 20-valent ([id number]) 03/16/2022 Pneumococcal Polysaccharide PPV23 (Pneumovax) 12/28/2017 Seasonal [...] 12:20 PM EDT Office Visit Pulmonary Medicine, [facility] [address] [facility] [place] [address] Tino Stapleton MD [address] [facility] [address] 09/18/2023 9:00 AM EDT Laboratory [facility], [address] [phone] [address] 09/25/2023 11:00 AM EDT Office Visit [address] [phone] Edgar Gibbs MD [address] [place] [address] 10/18/2023 11:00 AM EDT Appointment Interventional Radiology [facility] [place] [phone] 10/25/2023 3:15 PM EDT Office Visit Urology, [facility] 132 [facility] [place] [address] Travon Canales MD [address] [place] [address] [place] [address] 12/06/2023 1:40 PM EDT Office Visit Pulmonary Medicine, [facility] [address] [facility] [place] [address] Tino Stapleton MD [address] [place] [address] 12/13/2023 2:00 PM EDT Office Visit Cardiology, [facility] [address] [facility] [place] [address] Gris Alford CRNP 132 [facility] [place] [address] 02/26/2024 9:30 AM EST Cardiac Studies Cardiac Studies, [facility] [address] [facility] [place] [address] Health Maintenance Due Date Last Done Comments [...] Date/Time Associated Diagnosis Comments OUTSIDE LAB RESULTS 08/01/2023 documented in this encounter Results * OUTSIDE LAB RESULTS (08/01/2023) 08/01/2023 No Physician Data Unknown LABORATORY documented in this encounter Advance Directives * Full Code (Latest Code Status on File) Date Activated Date Inactivated Comments 04/15/2015 4:40 PM 04/16/2015 5:24 PM This order r eflects the patients wishes and were consensually agreed upon. Care Teams Warehouse Director Relationship Specialty Start Date End Date Edgar Gibbs MD [address] [place] [address] [phone] PCP - General Family Medicine 07/03/20 documented as of this encounter
--- OUTSIDE RECORDS SUMMARY | 2023-11-18 00:56 | External Medical Summary | Summary of Care ---
Author Name Unknown Organization [facility] Address [address] [facility] [place] [address] Phone [phone] Care Team Providers Care Registration Specialist Name Role Phone Edgar Gibbs MD Primary Care P rovider Encounter Details Date Type Department Care Team (Late st Contact Info) Description 08/15/2023 Result Scan Unspecified Department <No scans attached> Allergies Active Allergy Reactions Criticality Noted Date Comments Latex 07/19/2019 Pantoprazole Sodium Edema face/lips/tongue High 04/0 02/2014 documented as of this encounter (statuses as of 08/21/2023) Medications Medication Sig Dispensed Refills Start Date [...] MCG/ACT Inhalation Aerosol Powder Breath Activated (umeclidinium [place])Indications:C hronic obstructive pulmonary disease, unspecified COPD type ([facility]) Inhale 1 Puff by mouth in [...] as of this encounter (statuses as of 08/21/2023) Active Problems Problem Noted Date Diagnosed Date [...] as of this encounter (statuses as of 08/21/2023) Resolved Problems Problem Noted Date Diagnosed Date [...] as of this encounter (statuses as of 08/21/2023) Immunizations Name Administration Dates Next Due COVID-19 mRNA, LNP-s, No Pre serve, 2-Dose Series ([employer]) 01/19/2021,06/10/2020,05/20/2020 HEP B - Hepatitis B (Dialysis/Immumocomp Pt) 12/20/2018,07/21/2018,06/19/2018 PPD 05/03/2018 Pneumococcal Conjugate Vacci ne, 20-valent ([id number]) 03/16/2022 Pneumococcal Polysaccharide PPV23 (Pneumovax) 12/28/2017 Seasonal [...] 12:20 PM EDT Office Visit Pulmonary Medicine, [address] [place] [address] Tino Stapleton MD [address] [place] [address] 09/18/2023 9:00 AM EDT Laboratory Laboratory Patient Service [address] [phone] [address] 09/25/2023 11:00 AM EDT Office Visit [facility] [place] [address] [place] [address] Edgar Gibbs MD [address] [place] [address] 10/18/2023 11:00 AM EDT Appointment Interventional Radiology [facility], [facility] 1st Floor 100 [place] [address] 10/25/2023 3:15 PM EDT Office Visit Urology, [facility] [address] [facility] [place] [address] Travon Canales MD [address] [address] 12/06/2023 1:40 PM EDT Office Visit Pulmonary Medicine, [facility] [address] [facility] [place] [address] Tino Stapleton MD [address] [place] [address] 12/13/2023 2:00 PM EDT Office Visit Cardiology, [facility] [address] [facility] [place] [address] Gris Alford CRNP [address] [facility] [place] [address] 02/26/2024 9:30 AM EST Cardiac Studies Cardiac Studies, [facility] [address] [place] [address] Health Maintenance Due Date Last Done Comments Alpha-1 Antitrypsin 05/18/1963 *COPD SEVERITY VERIFIED BY PFT 03/05/2022 COVID-19 Vaccine ( season) 2022 01/19/2021, 06/10/2020, 05/20/2020 DISCUSS TOBACCO CESSATION (REFER TO SMARTSET #[id number]) 06/04/2023 06/03/2022 Depression Screening 06/15/2024 06/16/2023 O2 [...] Date/Time Associated Diagnosis Comments OUTSIDE LAB RESULTS 08/15/2023 documented in this encounter Results * OUTSIDE LAB RESULTS (08/15/2023) 08/15/2023 No Physician Data Unknown LABORATORY documented in this encounter Advance Directives * Full Code (Latest Code Status on File) Date Activated Date Inactivated Comments 04/15/2015 4:40 PM 04/16/2015 5:24 PM This order r eflects the patients wishes and were consensually agreed upon. Care Teams Registration Specialist Relationship Specialty Start Date End Date Edgar Gibbs MD [address] [place] [address] PCP - General Family Medicine 07/03/20 documented as of this encounter
--- OUTSIDE RECORDS SUMMARY | 2023-11-18 00:57 | External Medical Summary | Summary of Care ---
Author Name Unknown Organization [facility] Address [address] [facility] [place] [address] Phone [phone] Care Team Providers Care Interior Block Wirer Name Role Phone Edgar Gibbs MD Primary Care P rovider Encounter Details Date Type Department Care Team (Late st Contact Info) Description 07/11/2023 Result Scan Unspecified Department <No scans attached> Allergies Active Allergy Reactions Criticality Noted Date Comments Latex 07/19/2019 Pantoprazole Sodium Edema face/lips/tongue High 04/0 02/2014 documented as of this encounter (statuses as of 07/17/2023) Medications Medication Sig Dispensed Refills Start Date [...] MCG/ACT Inhalation Aerosol Powder Breath Activated (umeclidinium [place])Indications:C hronic obstructive pulmonary disease, unspecified COPD type ([facility]) Inhale 1 Puff by mouth [...] as of this encounter (statuses as of 07/17/2023) Active Problems Problem Noted Date Diagnosed Date [...] as of this encounter (statuses as of 07/17/2023) Resolved Problems Problem Noted Date Diagnosed Date [...] as of this encounter (statuses as of 07/17/2023) Immunizations Name Administration Dates Next Due COVID-19 mRNA, LNP-s, No Pre serve, 2-Dose Series ([employer] 01/19/2021,06/10/2020,05/20/2020 HEP B - Hepatitis B (Dialysis/Immumocomp Pt) 12/20/2018,07/21/2018,06/19/2018 PPD 05/03/2018 Pneumococcal Conjugate Vacci ne, 20-valent ([id number]) 03/16/2022 Pneumococcal Polysaccharide PPV23 (Pneumovax) 12/28/2017 Seasonal [...] 11:00 AM EDT Hospital Encounter Interventional Radiology [facility], [facility] 1st Floor [address] [place] [address] 09/13/2023 12:20 PM EDT Office Visit Pulmonary Medicine, Health system [address] [facility] [place] [address] Tino Stapleton MD [address] [place] [address] 09/18/2023 9:00 AM EDT Laboratory [facility] [phone] [address] 09/25/2023 11:00 AM EDT Office Visit [facility] [address] [place] [phone] Edgar Gibbs MD [address] [place] [address] 10/25/2023 3:15 PM EDT Office Visit Urology, Health system [address] [facility] [place] [address] Travon Canales MD 27 [facility] [address] [place] [address] 12/06/2023 1:40 PM EDT Office Visit Pulmonary Medicine, Health system 132 [facility] [place] [address] Tino Stapleton MD [address] [place] [address] 12/13/2023 2:00 PM EDT Office Visit Cardiology, Health system [address] [facility] [place] [address] Gris Alford CRNP 132 [facility] [place] [address] 02/26/2024 9:30 AM EST Cardiac Studies Cardiac Studies, Health system [address] [facility] [place] [address] Health Maintenance Due Date Last Done Comments [...] Date/Time Associated Diagnosis Comments OUTSIDE LAB RESULTS 07/11/2023 documented in this encounter Results * OUTSIDE LAB RESULTS (07/11/2023) 07/11/2023 No Physician Data Unknown LABORATORY documented in this encounter Advance Directives * Full Code (Latest Code Status on File) Date Activated Date Inactivated Comments 04/15/2015 4:40 PM 04/16/2015 5:24 PM This order r eflects the patients wishes and were consensually agreed upon. Care Teams Interior Block Wirer Relationship Specialty Start Date End Date Edgar Gibbs MD [address] [place] [address] [place] [phone] PCP - General Family Medicine 07/03/20 documented as of this encounter
--- OUTSIDE RECORDS SUMMARY | 2023-11-18 00:57 | External Medical Summary | Summary of Care ---
Author Name Unknown Organization [facility] Address [address] [facility] [place] [address] Phone [phone] Care Team Providers Care Buckle Stringer Name Role Phone Edgar Gibbs MD Primary Care P rovider Reason for Visit * Reason Comments eRx-Medication Refill Encounter Details Date Type Department Care Team ([facility] st Contact Info) Description 07/03/2023 Refill Family [address] [phone] Edgar Gibbs MD [address] [place] [address] Allergies Active Allergy Reactions Criticality Noted Date Comments Latex 07/19/2019 Pantoprazole Sodium Edema face/lips/tongue High 04/0 02/2014 documented as of this encounter (statuses as of 07/04/2023) Medications Medication Sig Dispensed Refills Start Date End Date Status Cholecalciferol 2000 units Capsule Take 1 Capsule by mouth in the morning. 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) ([facility]) take 2 pills 3 x [...] MCG/ACT Inhalation Aerosol Powder Breath Activated (umeclidinium [place])Indications:C hronic obstructive pulmonary disease, unspecified COPD [...] as of this encounter (statuses as of 07/04/2023) Active Problems Problem Noted Date Diagnosed Date [...] as of this encounter (statuses as of 07/04/2023) Resolved Problems Problem Noted Date Diagnosed Date [...] as of this encounter (statuses as of 07/04/2023) Immunizations Name Administration Dates Next Due COVID-19 mRNA, LNP-s, No Pre serve, 2-Dose Series ([employer]) 01/19/2021,06/10/2020,05/20/2020 HEP B - Hepatitis B (Dialysis/Immumocomp Pt) 12/20/2018,07/21/2018,06/19/2018 PPD 05/03/2018 Pneumococcal Conjugate Vacci ne, 20-valent ([id number]) 03/16/2022 Pneumococcal Polysaccharide PPV23 (Pneumovax) 12/28/2017 Seasonal [...] Miscellaneous Notes * Telephone Encounter - Be Gonzales [facility] - 07/04/2023 9:48 AM EDT Refused Prescriptions: Disp Refills Atenolol 50 MG Oral Tablet (Tenormin) 90 Tab*1 Sig: TAKE 1 TABLET BY MOUTH ONCE DAILY AT BEDTIMERefused By: [facility]: Course of treatment complete documented in this encounter Plan of Treatment Upcoming Encounters Date Type Department Care Team (Late st Contact Info) Description 07/19/2023 11:00 AM EDT Hospital Encounter Interventional Radiology [facility], Yumiko Pickens 1st Floor [address] [facility] [place] [address] 09/13/2023 12:20 PM EDT Office Visit Pulmonary Medicine, [address] [place] [address] Tino Stapleton MD [address] [facility] [place] [address] 09/18/2023 9:00 AM EDT Laboratory Laboratory Patient Service [address] [phone] [address] 09/25/2023 11:00 AM EDT Office Visit [address] [phone] Edgar Gibbs MD [address] [place] [address] 10/25/2023 3:15 PM EDT Office Visit Urology, [facility] 132 [facility] [place] [address] Travon Canales MD [address] [address] 12/06/2023 1:40 PM EDT Office Visit Pulmonary Medicine, [facility] [address] [facility] [place] [address] Tino Stapleton MD [address] [facility] [place] [address] 12/13/2023 2:00 PM EDT Office Visit Cardiology, [facility] 132 [facility] [place] [address] Gris Alford CRNP 132 [facility] [place] [address] 02/26/2024 9:30 AM EST Cardiac Studies Cardiac Studies, [facility] [address] [facility] [place] [address] Health Maintenance Due Date Last Done Comments [...] and were consensually agreed upon. Care Teams Buckle Stringer Relationship Specialty Start Date End Date Edgar Gibbs MD [address] [place] [address] [place] [address] PCP - General Family Medicine 07/03/20 documented as of this encounter
--- OUTSIDE RECORDS SUMMARY | 2023-11-18 00:57 | External Medical Summary | Summary of Care ---
Author Name Unknown Organization [facility] Address [address] [place] [address] Phone [phone] Care Team Providers Care Long Chain Dyeing Machine Operator Name Role Phone Edgar Gibbs MD Primary Care P roder Reason for Referral * Precert (Within 10 days (routine)) - Authorized Specialty Diagnoses / Procedures Referred By Cecilia mendieta Referred To Contact Radiology Diagnoses Nephrostomy status (HCC) Procedures IR GENITORINARY NEPHRO/CYSTO/URETERAL Geeta Rai CRNP [address] [place] [address] Referral ID Status Reason Start Date Expiration Date V isits Requested Visits Authorized [id number] Authorized 01/09/2023 50 50 Reason for Visit * Precert (Within 10 days (routine)) - Authorized Specialty Diagnoses / Procedures Referred By Cecilia mendieta Referred To Contact Radiology Diagnoses Nephrostomy status (HCC) Procedures IR GENITORINARY NEPHRO/CYSTO/URETERAL Geeta Rai CRNP [address] [place] [address] Referral ID Status Reason Start Date Expiration Date V isits Requested Visits Authorized [id number] Authorized 01/09/2023 50 50 Encounter Details Date Type Department Care Team (Latest Contact Info) Description 07/19/2023 9:57 AM EDT - 07/19/2023 12:12 PM EDT Hospital Encounter Radiology Waiting Room Yumiko HERNANDEZ [address]st [address] [place] [address] Abiodun Rhodes MD [address] [place] [address] Arrived Discharge Disposition: Home - Self Care [...] Acetate (3 Month) 22.5 MG Subcutaneous Kit (Playnery) Inject 22.5 mg under the skin. Every 3 months 11/18/2020 Active Incruse Ellipta 62.5 MCG/ACT Inhalation Aerosol Powder Breath Activated (umeclidinium [place])Indications:C hronic obstructive pulmonary disease, unspecified COPD type [...] mRNA, LNP-s, No Pre serve, 2-Dose Series (Docracy) 01/19/2021,06/10/2020,05/20/2020 HEP B - Hepatitis B (Dialysis/Immumocomp Pt) 12/20/2018,07/21/2018,06/19/2018 PPD 05/03/2018 Pneumococcal Conjugate Vacci ne, 20-valent ([id number]) 03/16/2022 Pneumococcal Polysaccharide PPV23 (Pneumovax) 12/28/2017 Seasonal [...] Sign Reading Time Taken Comments Blood Pressure 138/69 07/19/2023 11:55 AM EDT Pulse 78 07/19/2023 11:55 AM EDT Temperature 36 C (96.8 F) 07/19/2023 11:10 AM EDT Respiratory Rate 22 07/19/2023 11:55 AM EDT Oxygen Saturation 95% 07/19/2023 11:55 AM EDT Inhaled Oxygen Concentration - - [...] Instructions * Discharge Instr - AVS* Xander Barajas, DO - 07/19/2023 10:14 AM EDT Discharge Date: 07/19/2023 Provider: Dr. Juan José Hickman If you are experiencing any problems related to your procedure, please contact Interventional Radiology at [phone] during normal business hours: Monday - Monday, 8:00 am - 4:00 pm. If a problem occurs outside of normal business hours, please call the hospital office machine punch operator at [phone] and ask for the Interventional Radiologist health promotion coordinator. Contact scheduling for Interventional Radiology at [phone] during normal business hours: Monday - Monday, [...] flushes, we can call the prescription into [facility] if no one close to [...] homicidal, please call the crisis hotline at [phone] ([phone]). Driving: You may resume driving tomorrow if previously allowed. Diet: You may resume your current diet as tolerated. documented in this encounter Nursing Notes * Yumiko Heredia RN - 07/19/2023 12:07 PM EDT DISCHARGE - POST INTERVENTIONAL RADIOLOGY PROCEDURE Patient meets discharge criteria for Interventional Radiology. Vital signs stable. Dressing clean, dry, and intact. IV site removed. Patient awake and oriented to pre procedure baseline. Discharge instructions given, no questions at this time. Patient tolerating liquids, with no nausea/vomiting. All belongings sent with patient. Discharged to home. Vital Signs: BP: 138/69 (07/19/23 1155) Temp: 36 C (96.8 F) (07/19/23 1110) Pulse: 78 (07/19/23 1155) Resp: 22 (07/19/23 1155) SpO2: 95 % (07/19/23 1155) Neurological: [place] Coma Scale Eyes Open: Spontaneous (07/19/23 1110) Best Verbal Response: Verbally appropriate for age (07/19/23 1110) Best Motor Response: Obeys commands appropriate for age (07/19/23 1110) Coma Score: 15 (07/19/23 1110) Activity: Four Extremities LOC: Fully Awake or Pre-Anesthetic Level of Consciousness BP: Less than (+/-) 20% Resp: Deep Breathe and Cough Freely (07/18 111) Respiratory: Pain Assessment Flowsheet Row Most Recent Value Pain Assessment Scale [facility] Adult Scale 0-10 Pain Score 0 (no pain) * Geeta Hogan RN - 07/19/2023 10:43 AM EDT mental health practitioner note Name: Matthew Rowe Date: 07/19/2023 Time: 10:43 AM Procedure: Right Percutaneous Nephroureterostomy Tube Exchange Patient ID band checked using two identifiers. Patient placed prone on procedure table with comfortmeasures intact and safety strap in place. Hemodynamic monitoring placed and initiated. Patient denies any current complaints at current time. RT staff prepares and preps patient for procedure. 10:43 AM 1 mg versed given for pt comfort 10:44 AM Patient prepped and ready. Procedure by physician. 10:46 AM Timeout performed by Dr. Juan José Hickman. Correct catheter size verbalized and verified during timeout. 10:48 AM Procedure started by Dr. Juan José Hickman, Dr Barajas and scrubbed RT Harpal Villafana. Catheter injected with contrast. Images obtained. 10:49 AM Guidewire inserted. Images obtained. 10:50 AM Existing right PCNU catheter removed. 10:57 AM InPact.me Catheter 10.2 Fr. x 2 cm LOT [id number] EXP placed. Images obtained. 10:58 AM Numbing right flank site with 1% buffered lidocaine. Sutures placed. Procedure complete. 11:01 AM Area cleaned. Catheter placed to gravity bag. Patient tolerated procedure well without complications. Drainage bag(s) attached to patient's leg(s) prior to leaving procedure room. All wires, catheters, sheaths and other devices [...] did not receive conscious sedation for their procedure Total medications given Versed: 1 mg Rocephin: 1 g 1% buffered lidocaine: 3 mL Please see doctor's operative note for additional details. documented in this encounter Plan of Treatment Upcoming Encounters Date Type Department Care Team (Late st Contact Info) Description 09/13/2023 12:20 PM EDT Office Visit Pulmonary Medicine, [facility] [address] [facility] [place] [address] Tino Stapleton MD [address] [facility] [address] 09/18/2023 9:00 AM EDT Laboratory Laboratory Patient Service [address] [phone] [address] 09/25/2023 11:00 AM EDT Office Visit [address] [phone] Edgar Gibbs MD [address] [place] [address] 10/25/2023 3:15 PM EDT Office Visit Urology, [facility] [address] [facility] [place] [address] Travon Canales MD [address] [place] [address] [place] [address] 12/06/2023 1:40 PM EDT Office Visit Pulmonary Medicine, [facility] [address] [facility] [place] [address] Tino Stapleton MD [address] [place] [address] 12/13/2023 2:00 PM EDT Office Visit Cardiology, [facility] [address] [facility] [place] [address] Gris Alford CRNP [address] [facility] [place] [address] 02/26/2024 9:30 AM EST Cardiac Studies Cardiac Studies, [facility] [address] [facility] [place] [address] Health Maintenance Due Date Last Done Comments [...] Priority Date/Time Associated Diagnosis Comments IR GENITORINARY NEPHRO/CYSTO/URETERAL Routine 07/19/2023 11:07 AM EDT Nephrostomy status (HCC) documented in this encounter Results * IR GENITORINARY NEPHRO/CYSTO/URETERAL (07/19/2023 11:07 AM EDT) Anatomical Region Laterality Modality Any X-Ray Angiograph y 07/19/2023 3:46 PM EDT Impressions 07/19/2023 3:57 PM EDT IMPRESSION: Right nephroureteral catheter check and exchange. PLAN: Patient should return to IR in 3 months for routine maintenance catheter exchange. I have personally reviewed this examination and agree with the resident/fellow physician's interpretation. Narrative 07/19/2023 3:57 PM EDT PROCEDURE: Right nephroureteral catheter check and exchange. 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 ATTENDING (SUPERVISING PHYSICIAN): Xander Hickman MD SCRUBBED RESIDENT (OPERATING PHYSICIAN): Xander Barajas D.O. SUPPORTING PROVIDER (HVAC LEAD): None. CONSENT: After a detailed discussion of the procedure, risks, benefits and alternative treatment options, informed consent was obtained. TIME OUT: A time out procedure was performed. The patient's identification was verified. Informed consent with agreement of procedure, site and position was obtained. All necessary equipment was available prior to procedure. CONTRAST: IV Optiray 320. COMPLICATIONS: None. ANESTHESIA: Local lidocaine. IV Versed. SEDATION TIME: N/A MEDICATIONS: See MAR PROCEDURE DESCRIPTION: The patient was placed in the prone position on the fluoroscopy table. The nephroureteral catheter was prepped and draped in usual sterile fashion. Preliminary fluoroscopic evaluation of the right side [...] catheter was secured to the skin and capped, to be uncapped by the patient when needed. The procedure was performed under the personal supervision of Dr. Hickman who was present for the entire procedure. FINDINGS: Preliminary fluoroscopic evaluation of the right side demonstrated a nephroureteral catheter overlying the right flank. Antegrade nephrostogram through the catheter demonstrated opacification of the right collecting system. Post exchange imaging confirms appropriate positioning of the new catheter. Procedure Note Xander Hickman MD - 07/19/2023 PROCEDURE: Right nephroureteral catheter check and exchange. INDICATION: 78-year-old male patient with dependence on nephroureteralcatheter due to prostatic adenocarcinoma, presents for preventativecatheter check and exchange. ATTENDING (SUPERVISING PHYSICIAN): Xander Hickman MD SCRUBBED RESIDENT (OPERATING PHYSICIAN): Xander Barajas D.O. SUPPORTING PROVIDER (HVAC LEAD): None. CONSENT: After a detailed discussion of the procedure, risks, benefits andalternative treatment options, informed consent was obtained. TIME OUT: A time out procedure was performed. The patient's identificationwas verified. Informed consent with agreement of procedure, site andposition was obtained. All necessary equipment was available prior toprocedure. CONTRAST: IV Optiray 320. COMPLICATIONS: None. ANESTHESIA: Local lidocaine. IV Versed. SEDATION TIME: N/A MEDICATIONS: See MAR PROCEDURE DESCRIPTION: The patient was placed in the prone position on thefluoroscopy table. The nephroureteral catheter was prepped and draped inusual sterile fashion. Preliminary fluoroscopic evaluation of the right side demonstrated anephroureteral catheter overlying the right flank. A small [...] catheter was secured to the skin and capped, to be uncapped by thepatient when needed. The procedure was performed under the personal supervision of who was present for the entire procedure. FINDINGS: Preliminary fluoroscopic evaluation of the right side demonstrated anephroureteral catheter overlying the right flank. Antegradenephrostogram through the catheter demonstrated opacification of the rightcollecting system. Post exchange imaging confirms appropriate positioningof the new catheter. IMPRESSION IMPRESSION: Right nephroureteral catheter check and exchange. PLAN: Patient should return to IR in 3 months for routine maintenancecatheter exchange. I have personally reviewed this examination and agree with the resident/fellow physician's interpretation. Geeta HINSON RAD SPECIAL PROCED URES documented in this encounter Visit Diagnoses Diagnosis Nephrostomy status (HCC) Status of other artificial opening of urinary tract documented in this encounter Administered Medications Inactive Administered Medications - up to 3 most recent administrations Medication Order MAR Action Action Date Dose Rate Site buffered lidocaine 1 % inj Intradermal, ONCE PRN INTRA PROCEDURE, Starting on Mon07/19/23 at 1058, Until Mon07/19/23 at 1058, Intra-Op Given 07/19/2023 10:58 AM EDT 3 mL cefTRIAXone in dextrose (Rocephin) IVPB 1 g IV Piggyback, 1 g, ONCE, 1 dose, On Mon07/19/23 at 1100, Administer over 30 Minutes New Bag 07/19/2023 10:32 AM EDT 1 g 100 mL/hr Ioversol (Optiray 320) inj 50 mL 50 mL, Intravenous, ONCE, On Mon07/19/23 at 1145, For 1 dose Given 07/19/2023 11:45 AM EDT 20 mL midazolam (Versed) 2 MG/2ML inj ONCE PRN INTRA PROCEDURE, Starting on Mon07/19/23 at 1043, Until Mon07/19/23 at 1043, Intra-Op Given 07/19/2023 10:43 AM EDT 1 mg documented in this encounter Active and Recently Administered Medications Times are shown in EDT. Scheduled Medication Order 07/17/2023 07/18/2023 07/19/2023 cefTRIAXone in dextrose (Rocephin) IVPB 1 g (COMPLETED) IV Piggyback, 1 g, ONCE, 1 dose, On Mon07/19/23 at 1100, Administer over 30 Minutes 1032 (New Bag - Prov ider: Shannon Carrasco, RAHEEM) Ioversol (Optiray 320) inj 50 mL (COMPLETED) 50 mL, Intravenous, ONCE, On Mon07/19/23 at 1145, For 1 dose 1145 (Given - Provid er: Sandy Smith, RT) PRN Medication Order 07/17/2023 07/18/2023 07/19/2023 buffered lidocaine 1 % inj (COMPLETED) Intradermal, ONCE PRN INTRA PROCEDURE, Starting on Mon07/19/23 at 1058, Until Mon07/19/23 at 1058, Intra-Op 1058 (Given - Provid er: Xander Barajas, ) midazolam (Versed) 2 MG/2ML inj (COMPLETED) ONCE PRN INTRA PROCEDURE, Starting on Mon07/19/23 at 1043, Until Mon07/19/23 at 1043, Intra-Op 1043 (Given - Provid er: Geeta Hogan RN) documented in this encounter Advance Directives * Full Code (Latest Code Status on File) Date Activated Date Inactivated Comments 04/15/2015 4:40 PM 04/16/2015 5:24 PM This order r eflects the patients wishes and were consensually agreed upon. Care Teams Long Chain Dyeing Machine Operator Relationship Specialty Start Date End Date Edgar Gibbs MD [address] [place] [id number] PCP - General Family Medicine 07/03/20 documented as of this encounter
[2023-11-18 06:06] LABS: Hematocrit (blood only) 25.9 % (42.0-52.0); Hemoglobin 8.4 g/dl (14.0-18.0); Immature Granulocytes # (auto) 0.01 K/uL (0.01-0.20); Immature Granulocytes % (auto) 0.3 %; Lymphocytes # (auto) 0.29 K/uL (1.20-3.40); Lymphocytes % (auto) 8.5 %; Mean Corpuscular Hemoglobin 32.6 pg (25.0-34.0); Mean Corpuscular Hgb Conc 32.4 g/dL (32.0-36.0); Mean Corpuscular Volume 100.4 fL (80.0-100.0); Mean Platelet Volume 9.8 fL (9.4-12.4); Monocytes # (auto) 0.09 K/uL (0.11-0.59); Monocytes % (auto) 2.6 %; Neutrophils # (auto) 3.01 K/uL (1.40-6.50); Neutrophils % (auto) 88.6 %; Platelet Count 153 K/uL (130-400); RDW Coefficient of Variation 13.5 % (11.5-14.5); RDW Standard Deviation 48.7 fL (36.4-46.3); Red Blood Count 2.58 M/uL (4.70-6.10)
[2023-11-18 06:27] LABS: BUN Creatinine Ratio 7.9 (10-20); Calcium 8.5 mg/dl (8.6-10.3); Creatinine Clr Calc Pharmacy 6.7 ml/min; Est GFR (African American) 7.7 ml/min; Est GFR (Non-African American) 6.7 ml/min; Magnesium 2.3 mg/dl (1.7-2.4); Potassium 5.6 mmol/L (3.5-5.1)
[2023-11-18] MEDS: methylPREDNISolone 40 MG in SYRINGE 0 ML IV SCH (06:38)
[2023-11-18] MEDS: ALBUT/IPRATROP 3MG/0.5MG NEB 3 ML VIAL NEB SCH (07:21)
--- NOTE | 2023-11-18 08:04 | Nephrology Consultation ---
Date of Consultation November 18, 2023 Assessment & Plan (1) Dialysis patient: missed his monday treatment and had shortened/incomplete treatment yesterday -will do his regular / routine tx today; follow for further needs for HD on 11/19 though I suspect he should be ok until 11/20 after treatment today -hyperkalemia mild but not severe (2) Acute on chronic respiratory failure with hypoxia and hypercapnia: improving but still sob; as per primary service; will do dialysis to optimize volume status, ensure overload not contributing (3) Anemia in ESRD (end-stage renal disease): 20K units CARLO given today; hgb generally in 8-9s since June here History of Present Illness Reason for Consultation: ESRD Requesting Physician: Dr Abebe Attending Physician: Claudia Pat MD History of Present Illness 78 y/o M whom I'm asked to see for ESRD was admitted overnight for COPD exacerbation after presenting w/ sinus symptoms and worse dyspnea. PMH includes COPD on home oxygen 2 L, R pleural effusion, hypertension, nonrheumatic aortic valve stenosis, active tobacco abuse, end-stage renal disease on hemodialysis, hx of R hydronephrosis, bladder stones, and prostate cancer. He dialyzes TRSat > but missed treatment d/t feeling ill. He had HD and shortened 2 hr tx on Monday. Despite this he was still dyspneic after dialysis yesterday and was hypoxic on his customary 2L. Tells me his sinuses and breathing are improved since starting steroids. no fevers; no chest pain; his appetite is improving; no palpitations , no edema. no n/v/chest pain or palpitations. Allergies Allergy/AdvReac Type Severity Reaction Status Date / Time pantoprazole Allergy Severe EDEMA Verified 07/03/23 23:53 FACE/LIPS/TONGUE latex Allergy Unknown ON Verified 07/04/23 00:00 [facility] LIST Home Medications Medication Instructions Recorded Confirmed Type albuterol sulfate 90 mcg/actuation 2 puff inhalation Q4H PRN 11/18/23 11/18/23 History aerosol inhaler (Ventolin HFA) Shortness Of Breath Or Wheezing amlodipine 5 mg tablet 5 mg PO DAILY 11/18/23 11/18/23 History citalopram 10 mg tablet 10 mg PO HS 11/18/23 11/18/23 History lorazepam 0.5 mg tablet 0.5 mg PO TID PRN Anxiety 11/18/23 11/18/23 History torsemide 100 mg tablet 100 mg PO DAILY 11/18/23 11/18/23 History vitamin B complex-vitamin C-folic 1 tab PO DAILY 11/18/23 11/18/23 History acid 0.8 mg tablet (Nephro-Farzana) Patient History Medical History AV fistula left arm Permanent central venous catheter in place Surgical History History of surgery PLACEMENT OF NEPHROSTOMY TUBE Family History Other Breast cancer Lung cancer No pertinent family history Stomach cancer Social History Smoking Status: Current every day smoker Tobacco Type: Cigarettes Cigarettes Per Day: 2 packs a week; Second Hand Exposure: No; Do You Dip or Chew Tobacco: No; Hx Alcohol Use: No Hx Substance Use: No Preferred Language: Syriac Communication Ability: Unable Visual Impairment: No Limitations Medical Research Tech Required: No Beliefs That Will Affect Care: None marital status: Current Living Situation: Spouse Current Living Situation Comment: Home Feels Safe at Home: Yes Assistive Devices: Denture - Upper, Denture - Lower, Glasses, Hearing Aid - Bilateral, Oxygen - at Night and Oxygen - Continuous Review of Systems 2 Review of Systems: All systems reviewed & are unremarkable except as noted in HPI & below Physical Exam 2 Constitutional: well developed (sitting up in chair on 3L w/ empty lunch tray) and well nourished ENMT: Mouth: + dry oral mucous membranes Respiratory: normal respiratory effort Auscultation: lungs clear to auscultation bilaterally Cardiovascular: Rate/Rhythm: regular rate and regular rhythm Extremities: n o edema Gastrointestinal (Abdomen): Inspection/Auscultation: normal bowel sounds P ercussion/Palpation: abdomen soft; abdomen nontender Musculoskeletal: Extremities: strength 5/5 throughout Skin: no rashes, warm and dry Neurologic: uribe, fluent speech, no tremor Results & Data Vital Signs (Past 12 Hours) Vital Signs Temp Pulse Pulse Resp BP Pulse Ox O2 Del Method 11/18/23 07:36 36.7 C 87 18 164/83 H 96 Nasal Cannula 11/18/23 07:22 81 11/18/23 07:21 88 16 98 Nasal Cannula 11/18/23 04:00 36.7 C 84 16 162/84 H 100 Nasal Cannula 11/17/23 23:20 98 H 11/17/23 22:56 Nasal Cannula 11/17/23 22:56 36.6 C 97 H 18 171/83 H 96 Nasal Cannula 11/17/23 21:00 36.9 C 93 H 24 141/80 H 95 Nasal Cannula O2 Flow Rate 11/18/23 07:36 2.5 11/18/23 07:22 11/18/23 07:21 2 11/18/23 04:00 3 11/17/23 23:20 11/17/23 22:56 2 11/17/23 22:56 2 11/17/23 21:00 2 Laboratory Results 11/18/23 05:19 11/18/23 05:[address] Chest no acute process; +emphysema cxr small R pl effusion
--- NOTE | 2023-11-18 08:20 | Hospitalist Progress Note ---
Date of Service November 18, 2023 Assessment & Plan (1) COPD exacerbation: Plan: Mr. Rowe is an 78-year-old male with past medical history significant for COPD on home oxygen 2 L, right pleural effusion, hypertension, nonrheumatic aortic valve stenosis, end-stage renal disease on hemodialysis, history of prostate cancer, history of right hydronephrosis, history of bladder stones, chronic anemia, ongoing tobacco abuse comes admitted for evaluation of SOB with concern for COPD exacerbation. #Shortness of breath,, likely COPD exacerbation #Acute on chronic hypoxic resp failure, 2l baseline #Active tobacco use Diminished breath sounds and occasional wheezing reported on admission Reports worsening after mowing lawn (possible precipitating factor) CT chest no acute findings Received steroids and nebs in the ER Azithromycin deferred 2/2 QTC Continue Doxycycline 100mg bid Continue IV prednisone 40mg daily, likely transition to PO reduce nebs to prn Start LAMA/LABA/ICS #End-stage renal disease on hemodialysis Nephrology consult, HD per recommendation #Hypertension On amlodipine, torsemide atenolol was discontinued in the past for bradycardia #Chronic anemia iso Kidney disease Hemoglobin 9.2 around baseline #Moderate aortic valve stenosis On echo 02/2023 Follow-up with cardiology #Hx of pneumothorax #hx of recurrent pleural effusions imaging stable, ctm Hx of prostrate cancer High-grade 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 .Patient on Lupron injections Follows with urology DVT prophylaxis Heparin subcu Disposition Med/telemetry Full code Admission and Anticipated Discharge Date Admission Date: November 17, 2023 Subjective admitted overnight Reports improvement with steroids but anxiety with nebs Denies further wheezing Physical Exam Constitutional: WD/WN, vitals as above Respiratory: clear breath sounds no wheezing Cardiovascular: RRR, no murmur, no edema Results & Data Results & Data Vital Signs (Past 12 Hours) Vital Signs Temp Pulse Pulse Resp BP Pulse Ox O2 Del Method 11/18/23 07:36 36.7 C 87 18 164/83 H 96 Nasal Cannula 11/18/23 07:22 81 11/18/23 07:21 88 16 98 Nasal Cannula 11/18/23 04:00 36.7 C 84 16 162/84 H 100 Nasal Cannula 11/17/23 23:20 98 H 11/17/23 22:56 Nasal Cannula 11/17/23 22:56 36.6 C 97 H 18 171/83 H 96 Nasal Cannula 11/17/23 21:00 36.9 C 93 H 24 141/80 H 95 Nasal Cannula O2 Flow Rate 11/18/23 07:36 2.5 11/18/23 07:22 11/18/23 07:21 2 11/18/23 04:00 3 11/17/23 23:20 11/17/23 22:56 2 11/17/23 22:56 2 11/17/23 21:00 2 Laboratory Results Short CBC 11/17/23 11/18/23 Range/Units 17:50 05:19 WBC 5.56 3.40 L (4.8-10.8) K/ul Hgb 9.2 L 8.4 L (14.0-18.0) g/dl Hct 28.6 L 25.9 L (42.0-52.0) % Plt Count 172 153 (130-400) K/uL BMP 11/17/23 11/18/23 17:50 05:19 Sodium 133 L 137 Potassium 4.3 5.6 H D Chloride 91 L 97 L Carbon Dioxide 30 29 BUN 39 H 56 H Creatinine 6.19 H* 7.06 H* D Glucose 127 H 135 H Calcium 8.8 8.5 L Liver Function 11/17/23 Range/Units 17:50 Total Bilirubin 0.6 (0.2-1.0) mg/dl AST 25 (13-39) U/L ALT 21 (7-52) U/L Alkaline Phosphatase 107 H (34-104) U/L Albumin 4.3 (3.4-5.0) gm/dl Medications Administered Home Medications Medication Instructions Recorded Confirmed Last Taken albuterol sulfate 90 mcg/actuation 2 puff inhalation Q4H PRN 11/18/23 11/18/23 Unknown aerosol inhaler (Ventolin HFA) Shortness Of Breath Or Wheezing amlodipine 5 mg tablet 5 mg PO DAILY 11/18/23 11/18/23 Unknown citalopram 10 mg tablet 10 mg PO HS 11/18/23 11/18/23 Unknown lorazepam 0.5 mg tablet 0.5 mg PO TID PRN Anxiety 11/18/23 11/18/23 Unknown torsemide 100 mg tablet 100 mg PO DAILY 11/18/23 11/18/23 Unknown vitamin B complex-vitamin C-folic 1 tab PO DAILY 11/18/23 11/18/23 Unknown acid 0.8 mg tablet (Nephro-Farzana) Active Medications Generic Name Dose Route Start Last Admin Trade Name Bakari PRN Reason Stop Dose Admin Amlodipine Besylate 5 mg 11/18/23 09:00 11/18/23 09:17 Amlodipine Besylate 5 Mg Tab PO 12/18/23 08:59 5 mg DAILY TOSHIA Administration Doxycycline Hyclate 100 mg 11/18/23 09:00 11/18/23 09:17 Doxycycline Hyclate 100 Mg Cap PO 11/25/23 08:59 100 mg BID TOSHIA Administration Fluticasone Furoate 1 puffs 11/18/23 09:00 11/18/23 09:49 Fluticasone Furoate 100mcg 14 Puffs/Inhaler INH 12/18/23 08:59 1 puffs DAILY TOSHIA Administration Heparin Sodium (Porcine) 5,000 units 11/18/23 09:00 11/18/23 09:49 Heparin Sod 5,000 Unit/0.5 Ml Vial SQ 12/18/23 08:59 5,000 units Q12 TOSHIA Administration Torsemide 100 mg 11/18/23 09:00 11/18/23 09:17 Torsemide 100 Mg Tab PO 12/18/23 08:59 100 mg DAILY TOSHIA Administration Umeclidinium/Vilanterol 1 puffs 11/18/23 09:00 11/18/23 09:49 Umeclidinium/Vilanterol 62.5/25mcg 7 Puffs/Inhaler INH 12/18/23 08:59 1 puffs DAILY TOSHIA Administration Vitamin B Complex/Folic Acid 1 cap 11/18/23 09:00 11/18/23 09:17 Nephrocaps PO 12/18/23 08:59 1 cap DAILY TOSHIA Administration
[2023-11-18] MEDS ORDERED: SODIUM CHLORIDE 0.9% 1,000 ML IV PRN (08:25)
[2023-11-18] MEDS ORDERED: methylPREDNISolone 125 MG/2 ML VIAL IV SCH (09:00)
[2023-11-18] MEDS: amLODIPine BESYLATE 5 MG TAB PO SCH (09:17)
[2023-11-18] MEDS: TORSEMIDE 100 MG TAB PO SCH (09:17)
[2023-11-18] MEDS: DOXYCYCLINE HYCLATE 100 MG CAP PO SCH (09:17)
[2023-11-18] MEDS: NEPHROCAPS PO SCH (09:17)
[2023-11-18] MEDS: HEPARIN SOD 5,000 UNIT/0.5 ML VIAL SQ SCH (09:49)
[2023-11-18] MEDS: FLUTICASONE FUROATE 100MCG 14 PUFFS/INHALER INH SCH (09:49)
[2023-11-18] MEDS: UMECLIDINIUM/VILANTEROL 62.5/25MCG 7 PUFFS/INHALER INH SCH (09:49)
--- NOTE | 2023-11-18 11:27 | Electrocardiogram Report ---
Test Reason : Blood Pressure : */* mmHG Vent. Rate : 92 BPM Atrial Rate : 92 BPM P-R Int : 144 ms QRS Dur : 76 ms QT Int : 402 ms P-R-T Axes : -10 -22 94 degrees QTcB Int : 497 ms Normal sinus rhythm Prolonged QT Abnormal ECG When compared with ECG of 03-Jul-2023 23:59, No significant change was found Confirmed by Ben Ascencio ([id number]) on 11/18/2023 11:27:18 AM Referred By: Confirmed By: Ben Ascencio
[2023-11-18] MEDS: EPOETIN ALFA 20,000 UNITS/ML VIAL IV ONE (15:33)
[2023-11-19] MEDS: CITALOPRAM 20 MG TAB PO SCH (00:13)
[2023-11-19 06:23] LABS: Hematocrit (blood only) 26.5 % (42.0-52.0); Hemoglobin 8.6 g/dl (14.0-18.0); Mean Corpuscular Hemoglobin 32.5 pg (25.0-34.0); Mean Corpuscular Hgb Conc 32.5 g/dL (32.0-36.0); Platelet Count 161 K/uL (130-400); RDW Coefficient of Variation 13.7 % (11.5-14.5); Red Blood Count 2.65 M/uL (4.70-6.10); White Blood Count 8.13 K/ul (4.8-10.8)
[2023-11-19 06:59] VITALS: BP 166/69; PULSE 81; RESP 18; TEMP 99; O2SAT 98
[2023-11-19 07:13] LABS: BUN Creatinine Ratio 9.2 (10-20); Calcium 9.3 mg/dl (8.6-10.3); Creatinine Clr Calc Pharmacy 10.4 ml/min; Est GFR (African American) 13.1 ml/min; Est GFR (Non-African American) 11.3 ml/min; Magnesium 2.2 mg/dl (1.7-2.4); Phosphorus 5.1 mg/dl (2.5-4.9); Potassium 4.7 mmol/L (3.5-5.1)
[2023-11-19] MEDS: methylPREDNISolone 40 MG in SYRINGE 0 ML IV SCH (08:30)
--- NOTE | 2023-11-19 10:18 | Discharge Summary ---
Discharge Summary Date of Service November 19, 2023 Principal Dx & Hospital Course #1 = Principal Diagnosis (1) COPD exacerbation: Mr. Rowe is an 78-year-old male with past medical history significant for COPD on home oxygen 2 L, right pleural effusion, hypertension, nonrheumatic aortic valve stenosis, end-stage renal disease on hemodialysis, history of prostate cancer, history of right hydronephrosis, history of bladder stones, chronic anemia, ongoing tobacco abuse comes admitted for evaluation of SOB with concern for COPD exacerbation. Patient improved notably and back to oxygen requirements with no further acute needs. Patient reports he is ambulating at baseline. Patient denies cough, sputum, wheezing, chest pain or other acute concerns on day of discharge. #Shortness of breath,, likely COPD exacerbation #Acute on chronic hypoxic resp failure, 2l baseline #Active tobacco use Diminished breath sounds and occasional wheezing reported on admission Reports worsening after mowing lawn (possible precipitating factor) CT chest no acute findings Received steroids and nebs in the ER Azithromycin deferred 2/2 QTC Continue Doxycycline 100mg bid for 5 days total Transitioned to PO prednisone 40mg for 3 more days reduce nebs to prn Start LAMA/LABA/ICS #End-stage renal disease on hemodialysis Nephrology consult,: continue routine HD #Hypertension On amlodipine, torsemide #Chronic anemia iso Kidney disease Hemoglobin 9.2 around baseline #Moderate aortic valve stenosis On echo 02/2023 Follow-up with cardiology #Hx of pneumothorax #hx of recurrent pleural effusions imaging stable, ctm Hx of prostrate cancer High-grade 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 .Patient on Lupron injections Follows with urology Notes For Next Care Provider Should obtain formal PFTs Medication Changes From Visit Trelegy started Prednisone 40mg daily x 3 more days Doxycycline 100mg bid x5 more days Admission HPI Per Admitting Provider 78-year-old male with past medical history significant for COPD on home oxygen 2 L, right pleural effusion, hypertension, nonrheumatic aortic valve stenosis, end-stage renal disease on hemodialysis, history of prostate cancer, history of right hydronephrosis, history of bladder stones, chronic anemia, ongoing tobacco abuse comes because of shortness of breath. Patient missed dialysis on Monday because he was not feeling well. Has cough bringing up phlegm. Feeling short of breath. Denies any fevers. No chest pain. No headache. No neck pain. Vision is okay. Somewhat hard of hearing. No runny nose or sore throat. Appetite okay. No nausea no abdominal pain. No diarrhea. Since he missed his dialysis on Monday he had dialysis on and Monday and is planned for dialysis tomorrow . He still makes urine from his right nephrostomy tube. After dialysis has been feeling short of breath and was sent to urgent care. At urgent care his oxygen saturation were low despite being on his home oxygen 2 L and was referred to the ER. Received steroids and breathing treatments in the ER and currently resting comfortably and hemodynamically stable. Past medical history. As mentioned above Past surgical history. Cystoscopy. IR drainage. ER genitourinary nephro/ cystoscopy/ureteral Social history. . Smokes 0.3 packs a day for last 60 years. No alcohol use. No drug use. Family history. Sister had breast cancer. Sister has COPD. Sister has history of lung cancer. Sister has history of parkinsonism. Brother had stomach cancer. Father had COPD. Admission Exam Per Admitting Provider General- Not in acute distress Head- atraumatic Eyes- PERRL. ENT- oropharynx clear Neck- supple, no JVD. Lungs- diminished bilateral breath sounds, mild occasional wheezing, no crackles Heart- regular rate and rhythm; no murmur, no gallop. Abdomen- normal bowel sounds, soft, nontender, no distension, right nephrostomy tube site no erythema or drainage seen Extremities- no pretibial edema, no erythema seen Neuro- alert, oriented ; PERRL, no facial palsy; no dysarthria; moves extremities Discharge Exam Constitutional WD/WN, vitals as above Respiratory normal respiratory effort, lungs clear to auscultation Cardiovascular RRR, no murmur, no edema Gastrointestinal (Abdomen) normal bowel sounds, soft, nontender, no hepatosplenomegaly Updated Medication List Medication Instructions Recorded Confirmed Type albuterol sulfate 90 mcg/actuation 2 puff inhalation Q4H PRN 11/18/23 11/18/23 History aerosol inhaler (Ventolin HFA) Shortness Of Breath Or Wheezing amlodipine 5 mg tablet 5 mg PO DAILY 11/18/23 11/18/23 History citalopram 10 mg tablet 10 mg PO HS 11/18/23 11/18/23 History lorazepam 0.5 mg tablet 0.5 mg PO TID PRN Anxiety 11/18/23 11/18/23 History torsemide 100 mg tablet 100 mg PO DAILY 11/18/23 11/18/23 History vitamin B complex-vitamin C-folic 1 tab PO DAILY 11/18/23 11/18/23 History acid 0.8 mg tablet (Nephro-Farzana) doxycycline hyclate 100 mg capsule 100 mg PO BID 5 days #10 caps 11/19/23 Rx fluticasone fur. 100 mcg-umeclid 1 inh inhalation DAILY #60 ea 11/19/23 Rx 62.5 mcg-vilant 25 mcg inhalat.powder (Trelegy Ellipta) prednisone 20 mg tablet 40 mg (2 x 20 mg) PO DAILY 3 days 11/19/23 Rx #6 tabs Hospital Stay Data Consultations 11/17/23 20:12 ED Decision to Admit Stat 11/18/23 08:00 Consult Nephrology Routine Diagnostic Imagining Performed 11/17/23 18:31 CT chest diagnostic wo con Stat Pending Results Patient Have Any Pending Studies at Discharge: No Discharge Instructions Given to Patient (Per Discharging Provider) You were admitted with concern for COPD exacerbation You improved with inhalers and steroids. You were started on a new inhaler, Trelegy Please continue this daily and follow up with your PCP Finish your prednisone taper starting tomorrow, 40mg (2 tablets) in the morning for the next three days. Continue doxycycline 100mg two times a day, starting this evening until course is complete. Please follow up with your PCP and discuss a pulmonary follow up for formal PFTs Total Time Total Time Spent Total Time Spent (In Minutes): 45
[2023-11-20 09:37] LABS: Hep B Surface Ag with confirm Negative (Negative)
[2023-11-20 09:45] LABS: Hepatitis B Surface Antibody Immune
== END 2023-11-19 11:13 | disposition home or self-care (01) | DRG 190 ==
LOC: ED 17:24 → 2S 22:02 → SUATTDRO 22:02 → 2S 22:38

== ENCOUNTER 2024-03-13 10:29 | Inpatient (IN) ==
[2024-03-13] MEDS: ALBUT/IPRATROP 3MG/0.5MG NEB 3 ML VIAL NEB STA (11:29)
[2024-03-13] MEDS: NITROGLYCERIN 2% OINTMENT 30GM TUBE EXT STA (11:29)
--- NOTE | 2024-03-13 11:32 | Emergency Department Note ---
Impression & Plan Hypoxia, Anemia, Dialysis patient, SOB (shortness of breath), Acute hyperkalemia, Pneumonia, Elevated troponin ED Provider Note NAME: BEE GOLDBERG AGE: 78 SEX: M : 1945 ARRIVES VIA: Ambulance INFORMANT: [Patient] ED PROVIDER(S): [Pelon Amos MD] CHIEF COMPLAINT: Shortness of breath HISTORY OF PRESENT ILLNESS: The patient is an 78-year-old male who states that for 2 days, he has had a cough and dyspnea. The patient did miss dialysis yesterday as he felt too unwell to make the trip to the dialysis center. The patient has not had fever. He did receive a DuoNeb in route and he thinks this helped his breathing. As per the nursing staff, the patient's O2 saturation was around 84%, he was given nasal cannula O2 supplementation. Patient has not had vomiting or diarrhea, he does complain of some fatigue. PMHx/PSHx/Social Hx: See Below PHYSICAL EXAM: GENERAL: Patient is in no acute distress. HEENT: No acute trauma, normocephalic atraumatic, mucous membranes moist, no nasal congestion. NECK: No stridor, no adenopathy, no meningismus, trachea is midline. LUNGS: Wheezing bilaterally with some diminished breath sounds bilaterally. No respiratory distress. HEART: Without murmurs gallops or rubs, regular rate and rhythm. Heart tones are distant. ABDOMEN: Soft, nontender, no peritonitis. EXTREMITIES: No cyanosis, full range of motion of all the joints without pain or difficulty. Mild bilateral pedal edema. NEUROLOGIC: Oriented x 3, no acute motor or sensory deficits, no focal weakness. SKIN: No jaundice, no diaphoresis. DIFFERENTIAL DIAGNOSIS: Fluid overload, CHF, viral illness, pneumonia, electrolyte imbalance, among others. EMERGENCY DEPARTMENT PROCEDURES: MEDICAL DECISION MAKING: There is no leukocytosis. The patient is anemic however, this appears to be a chronic finding. There was a normal platelet count. No coagulopathy. Potassium was high at 7, this was a critical finding. There was elevation to the creatinine and BUN consistent with his dialysis need. Phosphorus and magnesium were both elevated. Alk phos was slightly elevated, the bilirubin was normal. ECG showed a normal sinus rhythm, there were some T wave inversions seen laterally. No ST elevation. Cardiac enzyme testing x 1 was slightly elevated. This troponin elevation could be secondary to mismatch from his hypoxia or possibly, cardiac injury. Lactic acid level was not elevated making severe sepsis less likely. Chest x-ray does show a right lower lung pneumonia as well as some mild fluid overload. Respiratory bio fire was negative. The patient presents dyspneic, he was found to be hypoxic. He is fluid overloaded as he had missed dialysis yesterday. He appears to have pneumonia. He was hyperkalemic. The patient was likely, in addition, suffering from a flare of COPD as he was wheezing on auscultation. The patient was aggressively managed. He was given a DuoNeb, IV Solu-Medrol, IV ceftriaxone. He received IV calcium, IV bicarb, IV glucose and insulin. He was given nitroglycerin paste, the Nitropaste did seem to help his elevated blood pressure. I did speak with Dr. Hyatt of nephrology. The patient is going to be dialyzed emergently today. I spoke with the patient and family. Hospitalization is clearly indicated. In short, the patient dyspnea is multifactorial. The most pressing issue is the hyperglycemia and fluid overload. I did speak with case management, the on-call hospitalist was consulted. Prior/Outside records/notes reviewed: Today's EMS notes describing his presentation and transport to this hospital. ECG per my interpretation: Indication was shortness of breath. The ECG shows a normal sinus rhythm with a rate of 76. There are some inverted T waves in the lateral leads. No acute ST elevation, no PVCs. The QTc is 472. Compared to an ECG from 17 November 2023, the lateral T wave changes are far more pronounced. Continuous Cardiac Monitoring per my interpretation: An order was placed for continuous cardiac monitoring. The monitor shows a rate of 75 with normal sinus rhythm. Imaging/x-ray results per my interpretation: Chest x-ray shows a right lower lung infiltrate. Chronic Medical/Social conditions affecting care: Advanced age, need for dialysis. Care/Management discussed with: Case management, the on-call hospitalist. Nephrology on-call-Dr. Hyatt Level of care consideration(s): After review of the information above and other included data: --I believe the patient requires escalation of care to admission. Critical Care Note: I have personally spent 59 minutes of critical care time in the direct management of this patient. This includes bedside care, interpretation of diagnostic studies, and testing, discussion with consultants, patient, and family members, and other required patient management activities. This 59 minutes is in excess of all separately billable procedures. DISPOSITION: Admission Past Med/Surg History Problem List Elevated troponin (Acute) Pneumonia (Acute) Acute hyperkalemia (Acute) SOB (shortness of breath) (Acute) Dialysis patient (Acute) Anemia (Acute) Hypoxia (Acute) Volume overload Acute on chronic hypoxic respiratory failure Anemia in ESRD (end-stage renal disease) Dialysis patient (Acute) COPD exacerbation (Acute) Acute on chronic anemia Acute pulmonary edema End stage renal disease Aortic stenosis PAT (paroxysmal atrial tachycardia) Premature atrial complexes Bradycardia Hypertensive urgency Acute hypoxemic respiratory failure (Acute) Pulmonary edema (Acute) Pneumothorax (Acute) Demand ischemia Atypical pneumonia Hypoxia Nephrostomy status Pleural effusion (Acute) Acute dyspnea (Acute) Hypoxemia (Acute) Central venous catheter in place Anemia (Chronic) Renal failure (Acute) Chronic kidney disease (Acute) [place] catheter problem (Acute) UTI (urinary tract infection) (Acute) Asymptomatic hypertensive urgency Abnormal urine findings Obstructed nephrostomy tube DVT prophylaxis DNR (do not resuscitate) Encounter for pre-operative examination Tobacco use (Chronic) Chronic anemia (Chronic) Chronic indwelling [place] catheter (Chronic) HTN (hypertension) (Chronic) Was treated for hypertensive urgency at [facility] 11/2017 Prostate cancer (Chronic) Currently in remission. On Leupron injections. CKD (chronic kidney disease), stage V (Chronic) DIALYSIS 3 X WEEK [place] PA (//MON) VIA PERMA CATH Hyperkalemia (Acute) On a K restricted diet Urinary retention (Chronic) Bladder stones (Chronic) Medical History COPD (chronic obstructive pulmonary disease) ESRD (end stage renal disease) on dialysis Bladder stones SOB (shortness of breath) Anemia Hypoxia Acute on chronic respiratory failure with hypoxia and hypercapnia AV fistula left arm Permanent central venous catheter in place Surgical History History of surgery PLACEMENT OF NEPHROSTOMY TUBE Family History Other Breast cancer Lung cancer No pertinent family history Stomach cancer Social History Smoking Status: Current every day smoker Tobacco Type: Cigarettes Cigarettes Per Day: 4-5 QD; Second Hand Exposure: No; Do You Dip or Chew Tobacco: No; Tobacco Cessation Education Requested by Patient: No Hx Alcohol Use: No Hx Substance Use: No Preferred Language: Uzbek Communication Ability: Effective Visual Impairment: No Limitations [employer] Professor Required: No Beliefs That Will Affect Care: None marital status: Current Living Situation: Spouse Current Living Situation Comment: Home Other Information That Helps Us Care for You: No Feels Safe at Home: Yes Safety Concerns: Feels Safe At This Time Assistive Devices: Denture - Upper, Denture - Lower, Glasses, Hearing Aid - Bilateral and Oxygen - Continuous Allergies Allergies Allergy/AdvReac Type Severity Reaction Status Date / Time pantoprazole Allergy Severe EDEMA Verified 07/03/23 23:53 FACE/LIPS/TONGUE latex Allergy Unknown ON Verified 07/04/23 00:00 Conferize MED LIST Home Meds Home Medications Medication Instructions Recorded Confirmed albuterol sulfate 90 mcg/actuation 2 puff inhalation Q4H PRN 11/18/23 03/13/24 aerosol inhaler (Ventolin HFA) Shortness Of Breath Or Wheezing amlodipine 5 mg tablet 5 mg PO DAILY 11/18/23 03/13/24 citalopram 10 mg tablet 10 mg PO HS 11/18/23 03/13/24 lorazepam 0.5 mg tablet 0.5 mg PO TID PRN Anxiety 11/18/23 03/13/24 torsemide 100 mg tablet 100 mg PO UD 11/18/23 03/13/24 vitamin B complex-vitamin C-folic 1 tab PO DAILY 11/18/23 03/13/24 acid 0.8 mg tablet (Nephro-Farzana) budesonide 160 mcg-glycopyr 9 2 inh inhalation BID 03/13/24 03/13/24 mcg-formot 4.8 mcg/actuation HFA inhaler (Breztri Aerosphere) Results & Data (ED) Vital Signs Vital Signs - 24 hr 03/13/24 10:36 03/13/24 10:36 03/13/24 10:55 Temperature 37.2 C Temperature Source Oral Pulse Rate 89 89 Pulse Rate [Right Brachial] Pulse Rhythm Pulse Rhythm [Right Brachial] Pulse Strength [Right Brachial] Respiratory Rate 19 Respiratory Depth Normal Blood Pressure - Lying Blood Pressure 225/125 H Blood Pressure Mean 158 Blood Pressure Position Pulse Oximetry 92 85 L Oxygen Delivery Method Nasal Cannula Nasal Cannula Oxygen Flow Rate 4 0 Sepsis Recent Fever Within 48 Hours No Sepsis New/Unexplained Change in Mental Status N/A Sepsis Action Taken by Nursing No Action Required Oxygen Flow Rate - Titration 4 Pulse Oximetry Post Tiitration 90 03/13/24 11:55 03/13/24 13:00 03/13/24 13:03 Temperature 37.1 C Temperature Source Oral Pulse Rate 75 80 Pulse Rate [Right Brachial] 83 Pulse Rhythm Regular Pulse Rhythm [Right Brachial] Regular Pulse Strength [Right Brachial] Normal Respiratory Rate 20 Respiratory Depth Blood Pressure - Lying 161/88 H Blood Pressure 159/87 H Blood Pressure Mean Blood Pressure Position Semi-fowlers Pulse Oximetry 94 Oxygen Delivery Method Room Air Oxygen Flow Rate Sepsis Recent Fever Within 48 Hours Sepsis New/Unexplained Change in Mental Status Sepsis Action Taken by Nursing Oxygen Flow Rate - Titration Pulse Oximetry Post Tiitration Home Medications Current Medication List: was personally reviewed by me Laboratory Data Attestation: I reviewed the patient's lab results. 03/13/24 11:14 03/13/24 11:14 Lab Results 03/13/24 03/13/24 03/13/24 Range/Units 11:14 11:27 11:31 WBC 8.61 (4.8-10.8) K/ul RBC 3.03 L (4.70-6.10) M/uL Hgb 9.8 L (14.0-18.0) g/dl Hct 30.2 L (42.0-52.0) % MCV 99.7 (80.0-100.0) fL MCH 32.3 (25.0-34.0) pg MCHC 32.5 (32.0-36.0) g/dL RDW Std Deviation 52.0 H (36.4-46.3) fL RDW Coeff of Stacy 14.5 (11.5-14.5) % Plt Count 173 (130-400) K/uL MPV 10.1 (9.4-12.4) fL Immature Gran % (Auto) 0.3 % Neut % (Auto) 87.5 % Lymph % (Auto) 7.0 % [place] % (Auto) 4.8 % Eos % (Auto) 0.1 % Baso % (Auto) 0.3 % Neut # (Auto) 7.53 H (1.40-6.50) K/uL Lymph # (Auto) 0.60 L (1.20-3.40) K/uL [place] # (Auto) 0.41 (0.11-0.59) K/uL Eos # (Auto) 0.01 (0.00-0.50) K/uL Baso # (Auto) 0.03 (0.00-0.20) K/uL Immature Gran # (Auto) 0.03 (0.01-0.20) K/uL PT 12.0 (9.0-12.0) Seconds INR 1.1 (0.9-1.1) APTT 28 (21-31) Seconds PTT Ratio 1.0 Sodium 137 (136-145) mmol/L Potassium 7.0 H* (3.5-5.1) mmol/L Chloride 98 (98-107) mmol/L Carbon Dioxide 23 (21-32) mmol/L Anion Gap 16 H (3-11) BUN 85 H (6-23) mg/dl Creatinine 9.21 H* (0.6-1.4) mg/dl Est Cr Clr Drug Dosing 5.4 ml/min eGFR 5.30 BUN/Creatinine Ratio 9.2 L (10-20) Glucose 118 H (70-99(Fasting)) mg/dl Lactate 1.4 (0.4-2.0) mmol/L Calcium 9.6 (8.6-10.3) mg/dl Phosphorus 6.6 H (2.5-4.9) mg/dl Magnesium 2.5 H (1.7-2.4) mg/dl Total Bilirubin 0.6 (0.2-1.0) mg/dl AST 18 (13-39) U/L ALT 17 (7-52) U/L Alkaline Phosphatase 107 H (34-104) U/L Troponin I High Sens 76.4 H* (0-20) pg/ml Total Protein 7.4 (6.0-8.3) gm/dl Albumin 4.2 (3.4-5.0) gm/dl Globulin 3.2 (2.5-4.0) gm/dl Albumin/Globulin Ratio 1.3 (0.9-2) Procalcitonin 0.46 (0-0.5) ng/ml Adenovirus (PCR) Not Detected (NotDetected) B. pertussis DNA (PCR) Not Detected (NotDetected) B.parapertussis DNA PCR Not Detected (NotDetected) C. pneumoniae DNA (PCR) Not Detected (NotDetected) Coronavirus OC43 (PCR) Not Detected (NotDetected) Coronavirus HKU1 (PCR) Not Detected (NotDetected) Coronavirus 229E (PCR) Not Detected (NotDetected) SARS-CoV-2 (PCR) Not Detected (NotDetected) Coronavirus NL63 (PCR) Not Detected (NotDetected) Hep Bs Antigen Negative (Negative) Hep Bs Antibody Immune Hep Bs Antibody, Quant 135.00 (>or=10mIU/mL Immune) mIU/mL Human Metapneumovir PCR Not Detected (NotDetected) Influenza Type A (PCR) Not Detected (NotDetected) Influenza Type B (PCR) Not Detected (NotDetected) M. pneumoniae (PCR) Not Detected (NotDetected) Parainfluenza 1 (PCR) Not Detected (NotDetected) Parainfluenza 2 (PCR) Not Detected (NotDetected) Parainfluenza 3 (PCR) Not Detected (NotDetected) Parainfluenza 4 (PCR) Not Detected (NotDetected) RSV (PCR) Not Detected (NotDetected) Entero/Rhino (PCR) Not Detected (NotDetected) Administered Medications Albuterol (Albut/Ipratrop 3mg/0.5mg Neb 3 Ml Vial) 3 ml NEB QIDR TOSHIA; Protocol Stop: 04/12/24 14:59 Last Admin: 03/13/24 14:57 Dose: Not Given Documented By: JTM Lorazepam (Lorazepam 0.5 Mg Tab) 0.5 mg PO TID PRN PRN Reason: Anxiety Stop: 04/12/24 14:38 Last Admin: 03/13/24 18:25 Dose: 0.5 mg Documented By: KJL Discontinued Medications Albuterol (Albut/Ipratrop 3mg/0.5mg Neb 3 Ml Vial) 3 ml NEB NOW STA; Protocol Stop: 03/13/24 11:22 Last Admin: 03/13/24 11:29 Dose: 3 ml Documented By: IVAN Dextrose (Dextrose 50% 50 Ml Syringe) 50 ml IV NOW ONE Stop: 03/13/24 12:15 Last Admin: 03/13/24 12:44 Dose: 50 ml Documented By: IVAN Heparin Sodium (Porcine) (Heparin Sod (Porcine) 1000 Unit/Ml) 1,500 units IV ONE ONE Stop: 03/13/24 12:24 Last Admin: 03/13/24 13:47 Dose: Not Given Documented By: FELICIA Heparin Sodium (Porcine) (Heparin Sod (Porcine) 1000 Unit/Ml) 800 units IV Q1H TOSHIA Stop: 03/13/24 14:31 Last Admin: 03/13/24 17:51 Dose: Not Given Documented By: Admin: 03/13/24 17:51 Dose: Not Given Documented By: Admin: 03/13/24 17:50 Dose: Not Given Documented By: NEWTON Ceftriaxone Sodium (Rocephin) 2,000 mg in 50 mls @ 100 mls/hr IV NOW STA Stop: 03/13/24 11:52 Last Infusion: 03/13/24 12:04 Dose: Infused Documented By: Admin: 03/13/24 11:34 Dose: 100 mls/hr Documented By: IVAN Calcium Gluconate () 1,000 mg in 60 mls @ 240 mls/hr IV NOW STA Stop: 03/13/24 12:28 Last Infusion: 03/13/24 12:59 Dose: Infused Documented By: Admin: 03/13/24 12:44 Dose: 240 mls/hr Documented By: IVAN Insulin Human Regular (Novolin-R Insulin Per Unit Charge) 10 units IV NOW STA Stop: 03/13/24 12:15 Last Admin: 03/13/24 12:43 Dose: 10 units Documented By: IVAN Co-signed By: CEF Methylprednisolone (Methylprednisolone 125 Mg/2 Ml Vial) 60 mg IV NOW STA Stop: 03/13/24 11:22 Last Admin: 03/13/24 11:34 Dose: 60 mg Documented By: IVAN Nitroglycerin (Nitroglycerin 2% Ointment 30gm Tube) 2 inch EXT NOW STA Stop: 03/13/24 11:22 Last Admin: 03/13/24 11:29 Dose: 2 inch Documented By: IVAN Sodium Bicarbonate (Sodium Bicarb 8.4% Inj 50 Meq/50 Ml Syr) 50 meq IV NOW STA Stop: 03/13/24 12:15 Last Admin: 03/13/24 12:44 Dose: 50 meq Documented By: IVAN Imaging Data Radiologist's Impression: Chest X-Ray 03/13/24 10:58 XR chest 1V portable HISTORY: 78 years-old Male Dyspnea acute shortness of breath COMPARISON: Chest CT 11/17/2023 TECHNIQUE: AP view of the chest FINDINGS: Cardiac silhouette is enlarged. Emphysema with scattered calcified pulmonary granulomata. Chronic scarring of the right lung base. Pulmonary vascular congestion with interstitial coarsening. No pneumothorax. Layering pleural effusions with bibasilar consolidation, right greater than left. IMPRESSION: 1. Cardiomegaly with pulmonary edema and small pleural effusions. 2. Chronic scarring of the right lung base with right greater than left bibasilar opacities which may represent atelectasis versus pneumonitis. 3. Pulmonary emphysema. ACT 112: Negative or not required by law. The above report was generated using voice recognition software. It may contain grammatical, syntax or spelling errors. Electronically signed by: Be Casas M.D. 03/13/2024 11:38 AM Discharge Plan Visit Data Chief Complaint: Shortness of Breath/Dyspnea Stated Complaint: SHORTNESS OF BREATH ED Provider: Pelon Amos Discharge Problem: Hypoxia, Anemia, Dialysis patient, SOB (shortness of breath), Acute hyperkalemia, Pneumonia, Elevated troponin Patient Disposition: Admitted As Inpatient Condition: Serious Discharge Instructions Interventions: ED AMA/LWBS Discharge Assessment Last Done: 03/13/24 16:13 Discharge Problem: Anemia Qualifiers: Anemia type: unspecified type Qualified Code(s): D64.9 - Anemia, unspecified Pneumonia Qualifiers: Pneumonia type: due to unspecified organism Laterality: right Lung location: l ower lobe of lung Qualified Code(s): J18.9 - Pneumonia, unspecified organism
[2024-03-13] MEDS: methylPREDNISolone 125 MG/2 ML VIAL IV STA (11:34)
[2024-03-13] MEDS: cefTRIAXone SODIUM 2,000 MG/50 ML BAG IV STA (11:34)
--- NOTE | 2024-03-13 11:39 | XRay Report ---
XR chest 1V portable HISTORY: 78 years-old Male Dyspnea acute shortness of breath COMPARISON: Chest CT 11/17/2023 TECHNIQUE: AP view of the chest FINDINGS: Cardiac silhouette is enlarged. Emphysema with scattered calcified pulmonary granulomata. Chronic sca rring of the right lung base. Pulmonary vascular congestion with interstitial coarsening. No pneumoth orax. Layering pleural effusions with bibasilar consolidation, right greater than left. IMPRESSION: 1. Cardiomegaly with pulmonary edema and small pleural effusions. 2. Chronic scarring of the right lung base with right greater than left bibasilar opacities which may represent atelectasis versus pneumonitis. 3. Pulmonary emphysema. ACT 112: Negative or not required by law. The above report was generated using voice recognition software. It may contain grammatical, syntax o r spelling errors. Electronically signed by: Be Casas M.D. 03/13/2024 11:38 AM
[2024-03-13 11:43] LABS: Basophils # (auto) 0.03 K/uL (0.00-0.20); Basophils % (auto) 0.3 %; Eosinophils # (auto) 0.01 K/uL (0.00-0.50); Eosinophils % (auto) 0.1 %; Hematocrit (blood only) 30.2 % (42.0-52.0); Hemoglobin 9.8 g/dl (14.0-18.0); Immature Granulocytes # (auto) 0.03 K/uL (0.01-0.20); Immature Granulocytes % (auto) 0.3 %; Mean Corpuscular Hemoglobin 32.3 pg (25.0-34.0); Mean Corpuscular Hgb Conc 32.5 g/dL (32.0-36.0); Mean Corpuscular Volume 99.7 fL (80.0-100.0); Mean Platelet Volume 10.1 fL (9.4-12.4); Monocytes # (auto) 0.41 K/uL (0.11-0.59); Monocytes % (auto) 4.8 %; Neutrophils # (auto) 7.53 K/uL (1.40-6.50); Neutrophils % (auto) 87.5 %; Platelet Count 173 K/uL (130-400); RDW Coefficient of Variation 14.5 % (11.5-14.5); Red Blood Count 3.03 M/uL (4.70-6.10); White Blood Count 8.61 K/ul (4.8-10.8)
[2024-03-13 12:12] LABS: Albumin Globulin Ratio 1.3 (0.9-2); Albumin Level 4.2 gm/dl (3.4-5.0); BUN Creatinine Ratio 9.2 (10-20); Bilirubin,Total 0.6 mg/dl (0.2-1.0); Calcium 9.6 mg/dl (8.6-10.3); Creatinine Clr Calc Pharmacy 5.4 ml/min; Globulin 3.2 gm/dl (2.5-4.0); INR 1.1 (0.9-1.1); Magnesium 2.5 mg/dl (1.7-2.4); Partial Thromboplastin Time 28 Seconds (21-31); Phosphorus 6.6 mg/dl (2.5-4.9); Total Protein 7.4 gm/dl (6.0-8.3); Troponin I High Sensitivity 76.4 pg/ml (0-20)
--- NOTE | 2024-03-13 12:33 | History & Physical Report ---
Date of Service March 13, 2024 Assessment & Plan (1) Hyperkalemia: (2) Dialysis patient: (3) Acute on chronic hypoxic respiratory failure: (4) COPD (chronic obstructive pulmonary disease): (5) Volume overload: Plan: Patient is 78 year old male with PMH HTN, ESRD on HD, chronic anemia, COPD, chronic hypoxic respiratory failure on 2L oxygen, history recurrent pleural effusion, nonrheumatic aortic valve stenosis, H/O prostate cancer, history of right hydronephrosis, history of bladder stones, Right nephrostomy tube in place presented to ER with c/o SOB. Missed HD yesterday. Last HD on 03/09/2024 Reports having episodes of anxiety and shortness of breath. Increased shortness of breath yesterday and today. Today clear productive cough. Denies chest pain, fever In ER afebrile, P: 89, R: 19, BP 225/125, 92% on 4 L nasal cannula K: 7.0. Cr: 9.2 No leukocytosis, lactate: 1.4, procalcitonin: 0.46, negative respiratory biofire panel CXR: Cardiomegaly with pulmonary edema and small pleural effusions. Chronic scarring of the right lung base with right greater than left bibasilar opacities which may represent atelectasis versus pneumonitis. Pulmonary emphysema. Suspect SOB is multifactorial including volume overload from missed HD, COPD exacerbation, possible underlying pneumonia In ER given albuterol, calcium gluconate 1000mg IV, insulin R 10 units IV, sodium bicarbonate 50meq IV, Solumedrol 60mg IV, nitro-paste, Rocephin Nephrology consult, ER physician spoke to Dr Souza who plans for HD now Repeat BMP tonight Will continue Rocephin for now Duonebs Solumedrol 40mg Q8H Patient takes torsemide on non-dialysis days, hasn't had for 5 days. Getting HD now. Reassess volume status tomorrow Continue renal vitamin CBC, BMP, magnesium, phosphorus labs in am #Elevated troponin: History chronically elevated troponin Troponin: 76. EKG with more pronounced T wave inversions lateral leads compared to 11/17/23 Denies CP Trend troponin EKG in AM 02/27/2024 echo: EF: 55%, grade 1 diastolic dysfunction, aortic valve moderately calcified, moderate aortic stenosis, mild mitral regurgitation, moderate tricuspid regurgitation (6) Anemia in ESRD (end-stage renal disease): Plan: Chronic anemia Hgb: 9.8. Baseline 9-10 Monitor (7) HTN (hypertension): Plan: BP 225/125 In ER nitropaste applied with improvement of SBP to 120's-140's Going for HD now Will likely be able to remove nitropaste with HD Continue home amlodipine (8) Aortic stenosis: Plan: 02/27/2024 echo: EF: 55%, grade 1 diastolic dysfunction, aortic valve moderately calcified, moderate aortic stenosis, mild mitral regurgitation, moderate tricuspid regurgitation (9) Prostate cancer: Plan: Hx of prostrate cancer. 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 See addendum I spent a total of 76 minutes reviewing notes, outpatient records, labs, medication, coordinating, documenting and providing care for this patient excluding time spent in the performance of separately billed services. History of Present Illness Chief Complaint: SOB Primary Care Provider: Edgar Gamble MD Patient is 78 year old male with PMH HTN, ESRD on HD, chronic anemia, COPD, chronic hypoxic respiratory failure on 2L oxygen, history recurrent pleural effusion, nonrheumatic aortic valve stenosis, H/O prostate cancer, history of right hydronephrosis, history of bladder stones, Right nephrostomy tube in place presented to ER with c/o SOB. On HD on Monday, , Monday schedule. Last dialysis was 4 days ago. Patient states history of anxiety that he reports is worse in the wintertime. He reports has been having panic attacks which she describes as feeling hot followed by short of breath and feeling very anxious. When he has these episodes he also will have several episodes of loose stool. He reports is on citalopram for the past year without noted significant improvement. His PCP had given him lorazepam to try. Patient states has been taking lorazepam 3 times a day as he is having what he describes as panic attacks multiple times a day. He feels like the lorazepam helps a little but symptoms are recurrent. States yesterday and today had episode of feeling hot, then feels anxious and SOB. Today called EMS. States today developed cough that is clear productive cough. He denies any chest pain or fever, chills. He makes urine and drains his nephrostomy several times a day. Denies hematuria. Denies ill contacts, N/V, hematochezia, melena, DUNLAP, dizziness, syncope, vision changes, neck pain, palpitations, hemoptysis, sore throat, rhinorrhea, abdominal pain, paresthesias, extremity weakness, extremity edema, rashes. Allergies Allergy/AdvReac Type Severity Reaction Status Date / Time pantoprazole Allergy Severe EDEMA Verified 07/03/23 23:53 FACE/LIPS/TONGUE latex Allergy Unknown ON Verified 07/04/23 00:00 [employer] Home Medications Medication Instructions Recorded Confirmed Type albuterol sulfate 90 mcg/actuation 2 puff inhalation Q4H PRN 11/18/23 03/13/24 History aerosol inhaler (Ventolin HFA) Shortness Of Breath Or Wheezing amlodipine 5 mg tablet 5 mg PO DAILY 11/18/23 03/13/24 History citalopram 10 mg tablet 10 mg PO HS 11/18/23 03/13/24 History lorazepam 0.5 mg tablet 0.5 mg PO TID PRN Anxiety 11/18/23 03/13/24 History torsemide 100 mg tablet 100 mg PO UD 11/18/23 03/13/24 History vitamin B complex-vitamin C-folic 1 tab PO DAILY 11/18/23 03/13/24 History acid 0.8 mg tablet (Nephro-Farzana) budesonide 160 mcg-glycopyr 9 2 inh inhalation BID 03/13/24 03/13/24 History mcg-formot 4.8 mcg/actuation HFA inhaler ([employer]) Past Med/Surg History Problem List (Updated 03/13/24 @ 13:34 by Devika Correia PA-C) Volume overload Acute on chronic hypoxic respiratory failure Anemia in ESRD (end-stage renal disease) Dialysis patient (Acute) COPD exacerbation (Acute) Acute on chronic anemia Acute pulmonary edema COPD (chronic obstructive pulmonary disease) (Acute) End stage renal disease Aortic stenosis PAT (paroxysmal atrial tachycardia) Premature atrial complexes Bradycardia Hypertensive urgency Acute hypoxemic respiratory failure (Acute) Pulmonary edema (Acute) Pneumothorax (Acute) Demand ischemia Atypical pneumonia Hypoxia Nephrostomy status Pleural effusion (Acute) Acute dyspnea (Acute) Hypoxemia (Acute) Central venous catheter in place Anemia (Chronic) Renal failure (Acute) Chronic kidney disease (Acute) [place] catheter problem (Acute) UTI (urinary tract infection) (Acute) Asymptomatic hypertensive urgency Abnormal urine findings Obstructed nephrostomy tube Bladder stones DVT prophylaxis DNR (do not resuscitate) Encounter for pre-operative examination ESRD (end stage renal disease) on dialysis (Acute) Tobacco use (Chronic) Chronic anemia (Chronic) Chronic indwelling [place] catheter (Chronic) HTN (hypertension) (Chronic) Was treated for hypertensive urgency at [facility] 11/2017 Prostate cancer (Chronic) Currently in remission. On Leupron injections. CKD (chronic kidney disease), stage V (Chronic) DIALYSIS 3 X WEEK [facility] (//MON) VIA PERMA CATH Hyperkalemia (Acute) On a K restricted diet Urinary retention (Chronic) Bladder stones (Chronic) Medical History SOB (shortness of breath) Anemia Hypoxia Acute on chronic respiratory failure with hypoxia and hypercapnia AV fistula left arm Permanent central venous catheter in place Surgical History History of surgery PLACEMENT OF NEPHROSTOMY TUBE Family History Other Breast cancer Lung cancer No pertinent family history Stomach cancer Social History Smoking Status: Current every day smoker Tobacco Type: Cigarettes Cigarettes Per Day: 2 packs a week; Second Hand Exposure: No; Do You Dip or Chew Tobacco: No; Hx Alcohol Use: No Hx Substance Use: No Preferred Language: Romansh Communication Ability: Unable Visual Impairment: No Limitations 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 Beliefs That Will Affect Care: None marital status: Current Living Situation: Spouse Current Living Situation Comment: Home Feels Safe at Home: Yes Assistive Devices: Denture - Upper, Denture - Lower, Glasses, Hearing Aid - Bilateral, Oxygen - at Night and Oxygen - Continuous Review of Systems Review of Systems: All systems reviewed & are unremarkable except as noted in HPI & below Physical Exam Physical Exam: General: no distress, sitting upright in bed on 2L via NC, chronic ill appearing elderly male Head: normocephalic, atraumatic Eyes: conjunctiva non-injected, anicteric ENT: normal inspection external ears, nose, mucous membranes moist Neck: supple, trachea midline Lungs: R: 22, O2 sat 94% on 2L via NC, able to speak in short sentences but with noted SOB, +diffuse inspiratory and expiratory wheezing throughout CV: RRR, + murmur, 1+ pretibial edema Abd: normal BS, soft, non-tender. Right nephrostomy tube noted without any surrounding erythema or edema and no noted discharge from site Ext: no cyanosis, no calf tenderness Neuro: A&O x 3, no focal deficits noted, normal affect Skin: warm, dry Results & Data Results & Data Vital Signs (Past 12 Hours) Vital Signs Temp Pulse Resp BP Pulse Ox O2 Del Method O2 Flow Rate 03/13/24 11:55 75 20 94 Room Air 03/13/24 10:55 89 03/13/24 10:36 85 L Nasal Cannula 0 03/13/24 10:36 37.2 C 89 19 225/125 H 92 Nasal Cannula 4 Laboratory Results Chest X-Ray 03/13/24 10:58 XR chest 1V portable HISTORY: 78 years-old Male Dyspnea acute shortness of breath COMPARISON: Chest CT 11/17/2023 TECHNIQUE: AP view of the chest FINDINGS: Cardiac silhouette is enlarged. Emphysema with scattered calcified pulmonary granulomata. Chronic scarring of the right lung base. Pulmonary vascular congestion with interstitial coarsening. No pneumothorax. Layering pleural effusions with bibasilar consolidation, right greater than left. IMPRESSION: 1. Cardiomegaly with pulmonary edema and small pleural effusions. 2. Chronic scarring of the right lung base with right greater than left bibasilar opacities which may represent atelectasis versus pneumonitis. 3. Pulmonary emphysema. ACT 112: Negative or not required by law. The above report was generated using voice recognition software. It may contain grammatical, syntax or spelling errors. Electronically signed by: Be Casas M.D. 03/13/2024 11:38 AM Diagnostic Findings Chest X-Ray 03/13/24 10:58 XR chest 1V portable HISTORY: 78 years-old Male Dyspnea acute shortness of breath COMPARISON: Chest CT 11/17/2023 TECHNIQUE: AP view of the chest FINDINGS: Cardiac silhouette is enlarged. Emphysema with scattered calcified pulmonary granulomata. Chronic scarring of the right lung base. Pulmonary vascular congestion with interstitial coarsening. No pneumothorax. Layering pleural effusions with bibasilar consolidation, right greater than left. IMPRESSION: 1. Cardiomegaly with pulmonary edema and small pleural effusions. 2. Chronic scarring of the right lung base with right greater than left bibasilar opacities which may represent atelectasis versus pneumonitis. 3. Pulmonary emphysema. ACT 112: Negative or not required by law. The above report was generated using voice recognition software. It may contain grammatical, syntax or spelling errors. Electronically signed by: Be Casas M.D. 03/13/2024 11:38 AM ECG Additional Comments: Sinus rhythm, rate 76, T wave inversion lateral leads which are more prominent compared to EKG on 11/17/2023 per my interpretation Supervising Physician Co-Signing Physician Notes Pt seen and examined by me, care coordinated wKeith Correia PA-C, pls refer to her note above for further detail. 78 yo M w/ hx of HTN, ESRD on HD, chronic anemia, COPD, chronic hypoxic resp iratory failure on 2L oxygen, history of recurrent pleural effusion, nonrheumatic aortic valve stenosis, H/O prostate cancer, history of right hydronephrosis, history of bladder stones, Right nephrostomy tube in place presented to ER with c/o SOB. On HD on Monday, , Monday schedule. Last dialysis was 4 days ago. Patient states history of anxiety and that he was having anxiety/ panic attacks which also causes him to have loose stools and so he had to miss HD. No fever, chills, minimal cough that started today, clear sputum. Received duoneb on route and also in ED. also received solumedrol, rocephin, in ED. Hyperkalemic, w/ K 7 in ED and received meds for treatment of that as well. Currently presents with family at the bedside. he is sitting up in bed in NAD, alert, oriented, answering appropriately. lungs sounds - diffuse wheezing. heart sounds regular. abdomen soft, nontender. pt is moving extremities. Already in contact w/ nephrology - Dr. Souza and plan for HD now. Cont. rocephin, breathing treatments. repeat CXR tomorrow. MD Manuel (4) COPD (chronic obstructive pulmonary disease) COPD type: COPD with acute exacerbation Qualified Code(s): J44.1 - Chronic obstructive pulmonary disease with (acute) exacerbation
[2024-03-13] MEDS: NovoLIN-R INSULIN PER UNIT CHARGE IV STA (12:43)
[2024-03-13] MEDS: CALCIUM GLUCONATE 1,000 MG/60 ML BAG IV STA (12:44)
[2024-03-13] MEDS: DEXTROSE 50% 50 ML SYRINGE IV ONE (12:44)
[2024-03-13] MEDS: SODIUM BICARB 8.4% INJ 50 MEQ/50 ML SYR IV STA (12:44)
[2024-03-13 13:09] LABS: Adenovirus PCR Not Detected (NotDetected); Bordetella parapertussis PCR Not Detected (NotDetected); Bordetella pertussis PCR Not Detected (NotDetected); Chlamydia pneumoniae PCR Not Detected (NotDetected); Coronavirus 229E PCR Not Detected (NotDetected); Coronavirus CoV-2 (COVID19)PCR Not Detected (NotDetected); Coronavirus HKU1 PCR Not Detected (NotDetected); Coronavirus NL63 PCR Not Detected (NotDetected); Coronavirus OC43PCR Not Detected (NotDetected); Human Metapneumovirus PCR Not Detected (NotDetected); Influenza A PCR Not Detected (NotDetected); Influenza B PCR Not Detected (NotDetected); Mycoplasma pneumoniae PCR Not Detected (NotDetected); Parainfluenza Virus 1 PCR Not Detected (NotDetected); Parainfluenza Virus 2 PCR Not Detected (NotDetected); Parainfluenza Virus 3 PCR Not Detected (NotDetected); Parainfluenza Virus 4 PCR Not Detected (NotDetected); Respiratory Syncytial VirusPCR Not Detected (NotDetected); Rhinovirus/Enterovirus PCR Not Detected (NotDetected)
[2024-03-13 13:44] LABS: Hep B Surface Ag with confirm Negative (Negative)
[2024-03-13] MEDS: HEPARIN SOD (PORCINE) 1000 UNIT/ML IV ONE (13:47)
[2024-03-13 13:53] LABS: Hepatitis B Surface Antibody Immune
[2024-03-13] MEDS ORDERED: methylPREDNISolone 125 MG/2 ML VIAL IV SCH (14:39)
[2024-03-13] MEDS ORDERED: ACETAMINOPHEN 325 MG TAB PO PRN (14:39)
[2024-03-13] MEDS ORDERED: POLYETHYLENE (MIRALAX) 17 GM PACK PO PRN (14:39)
[2024-03-13] MEDS: ALBUT/IPRATROP 3MG/0.5MG NEB 3 ML VIAL NEB SCH (14:57)
--- NOTE | 2024-03-13 16:07 | Nephrology Consultation ---
Date of Consultation March 13, 2024 Assessment & Plan (1) ESRD (end stage renal disease) on dialysis: with missed treatment and K 7 and HTN urgency/emergency and acute on chronic resp failure >4 hr tx on large dialyzer for maximal clearance, 2K bath -heparin 1500 bolus/800 unit hourly on treatment -target 5L UF keeping sbp > 120 -plan routine HD tomorrow -daily bmp, cbc for now pls (2) Anemia in ESRD (end-stage renal disease): CARLO contraindicated w/ prostate CA hx (3) Acute on chronic hypoxic respiratory failure: aggressive UF today as much as tolerated (4) Volume overload: as evidenced by extreme elevations in blood pressure and in hypoxia -aggressive UF w/ HD today as above -fluid limit w/ HD and started torsemide on non hd days History of Present Illness Reason for Consultation: missed HD, hyperkalemia Requesting Physician: Dr Jackson Attending Physician: Darrel Jackson MD History of Present Illness 78 y/o M whom I'm asked to see for missed dialysis and hyperkalemia was admitted today with acute on chronic hypoxic respiratory failure after missing HD yesterday and presenting with K of 7. Also presented w/ HTN sbp 225/125; had nitropaste in ER and SBP > 120-140s. PMH includes COPD on home oxygen 2 L, R pleural effusion, hypertension, nonrheumatic aortic valve stenosis, active tobacco abuse, end-stage renal disease on hemodialysis, hx of R hydronephrosis, bladder stones, and prostate cancer w/ R nephrostomy tube, bladder stones. Also endorses symptomatic seasonal affective disorder and anxiety. He dialyzes TRSat in [place] > but missed Tues treatment d/t feeling poorly. he had a full treatment on 03/09 he tells me but came off heavy > at least 1 kg over TW for unclear reasons. He had sats in mid 80s on presentation but improved w/ nebs; blood cultures are pending. In ER had albuterol, IV insulin 10 units, amp of bicarbonate, calcium gluconate; also solumedrol, rocephin. Respiratory biofire panel negative. Repeat BMP planned for this evening. SOB from prior to admission improving; does endorse cough productive of clear sputum; no f/c; voids variable amounts daily > no new/worrisome voiding issues. no chest pain or palpitations. no sinus issues. no edema. no n/v/d/c/abd pain. Allergies Allergy/AdvReac Type Severity Reaction Status Date / Time pantoprazole Allergy Severe EDEMA Verified 07/03/23 23:53 FACE/LIPS/TONGUE latex Allergy Unknown ON Verified 07/04/23 00:00 [facility] MED LIST Home Medications Medication Instructions Recorded Confirmed Type albuterol sulfate 90 mcg/actuation 2 puff inhalation Q4H PRN 11/18/23 03/13/24 History aerosol inhaler (Ventolin HFA) Shortness Of Breath Or Wheezing amlodipine 5 mg tablet 5 mg PO DAILY 11/18/23 03/13/24 History citalopram 10 mg tablet 10 mg PO HS 11/18/23 03/13/24 History lorazepam 0.5 mg tablet 0.5 mg PO TID PRN Anxiety 11/18/23 03/13/24 History torsemide 100 mg tablet 100 mg PO UD 11/18/23 03/13/24 History vitamin B complex-vitamin C-folic 1 tab PO DAILY 11/18/23 03/13/24 History acid 0.8 mg tablet (Nephro-Farzana) budesonide 160 mcg-glycopyr 9 2 inh inhalation BID 03/13/24 03/13/24 History mcg-formot 4.8 mcg/actuation HFA inhaler ([employer]) Patient History Medical History (Updated 03/13/24 @ 18:35 by Pelon Amos MD) COPD (chronic obstructive pulmonary disease) ESRD (end stage renal disease) on dialysis Bladder stones SOB (shortness of breath) Anemia Hypoxia Acute on chronic respiratory failure with hypoxia and hypercapnia AV fistula left arm Permanent central venous catheter in place Surgical History History of surgery PLACEMENT OF NEPHROSTOMY TUBE Family History Other Breast cancer Lung cancer No pertinent family history Stomach cancer Social History Smoking Status: Current every day smoker Tobacco Type: Cigarettes Cigarettes Per Day: 4-5 QD; Second Hand Exposure: No; Do You Dip or Chew Tobacco: No; Tobacco Cessation Education Requested by Patient: No Hx Alcohol Use: No Hx Substance Use: No Preferred Language: Swiss Communication Ability: Effective Visual Impairment: No Limitations 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 Beliefs That Will Affect Care: None marital status: Current Living Situation: Spouse Current Living Situation Comment: Home Other Information That Helps Us Care for You: No Feels Safe at Home: Yes Safety Concerns: Feels Safe At This Time Assistive Devices: Denture - Upper, Denture - Lower, Glasses, Hearing Aid - Bilateral and Oxygen - Continuous Review of Systems 2 Review of Systems: All systems reviewed & are unremarkable except as noted in HPI & below Physical Exam 2 Constitutional: well developed, well nourished and + frail appearing; no acute distress Eyes: EOM intact bilaterally ENMT: Mouth: + dry oral mucous membranes Respiratory: normal respiratory effort (on 4L NC) and + tachypneic; no cough and + not able to speak in complete sentence (needs breath for longer sentence) Auscultation: + diminished lung sounds Cardiovascular: RRR, no murmur, no edema Extremities: + AV fistula Gastrointestinal (Abdomen): Inspection/Auscultation: normal bowel sounds P ercussion/Palpation: abdomen soft; abdomen nontender Musculoskeletal: Extremities: strength 5/5 throughout Skin: no rashes, warm and dry Neurologic: uribe, fluent speech, no tremor Results & Data Vital Signs (Past 12 Hours) Vital Signs Temp Pulse Pulse Resp BP Pulse Ox O2 Del Method 03/13/24 15:00 74 133/81 03/13/24 14:30 74 130/88 03/13/24 14:00 77 143/82 H 03/13/24 13:30 82 160/90 H 03/13/24 13:03 80 159/87 H 03/13/24 13:00 37.1 C 83 03/13/24 11:55 75 20 94 Room Air 03/13/24 10:55 89 03/13/24 10:36 85 L Nasal Cannula 03/13/24 10:36 37.2 C 89 19 225/125 H 92 Nasal Cannula O2 Flow Rate 03/13/24 15:00 03/13/24 14:30 03/13/24 14:00 03/13/24 13:30 03/13/24 13:03 03/13/24 13:00 03/13/24 11:55 03/13/24 10:55 03/13/24 10:36 0 03/13/24 10:36 4 Laboratory Results 03/13/24 11:14 03/13/24 11:14 Diagnostic Findings CXR (images personally reviewed; agree w/ report): Cardiomegaly with pulmonary edema and small pleural effusions. Chronic scarring of the right lung base with right greater than left bibasilar opacities which may represent atelectasis versus pneumonitis. Pulmonary emphysema.
--- OUTSIDE RECORDS SUMMARY | 2024-03-13 16:16 | External Medical Summary | Summary of Care ---
Author Name Unknown Organization [facility] Address [address] [facility] [place] [address] Phone [phone] Care Team Providers Care Yam Curer Name Role Phone Edgar Gibbs MD Primary Care P rovider Reason for Visit * Reason Onset Date Comments Test Results 03/01/2024 Encounter Details Date Type Department Care Team ([facility] st Contact Info) Description 03/01/2024 Telephone Family Practice [address] [phone] Edgar Gibbs MD [address] [place] [phone] Test Results Allergies Active Allergy Reactions Criticality Noted Date Comments Latex 07/19/2019 Pantoprazole Sodium Edema face/lips/tongue High 04/0 02/2014 documented as of this encounter (statuses as of 03/07/2024) Medications Cholecalciferol 2000 units Capsule Take 1 Capsule by mouth in the morning. 30 Cap 3 8 Active Calcium Acetate, Phos Binder, 667 MG TABSIndications:Ki dney disease, chronic, stage V (GFR under 15 ml/min) ([facility]) take 2 pills 3 x daily 180 Tab 11 9 Active Sodium Chloride Flush (NORMAL SALINE FLUSH) 0.9 % SOLN injection FLUSH ONCE DAILY WITH 10ml 300 mL 1 0 Active Leuprolide Acetate (3 Month) 22.5 MG Subcutaneous Kit (Eligard) Inject 22.5 mg under the skin. Every 3 months 1 Active Ventolin HFA 108 (90 Base) MCG/ACT Inhalation Aerosol SolutionIndication s:COPD exacerbation (HCC) INHALE TWO PUFFS BY MOUTH EVERY 4 HOURS NEEDED FOR COUGH, SHORTNESS OF BREATH, OR WHEEZING 18 g 5 3 Active Torsemide 100 MG Oral Tablet (Demadex) Take 1 Tablet by mouth in the morning. 90 Tablet 3 4 Active Citalopram Hydrobromide 10 MG Oral Tablet (CeleXA) Take 1 Tablet by mouth every night at bedtime. 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 90 Tablet 3 4 Active LORazepam 0.5 MG Oral Tablet (Ativan)Indication s:Panic attack as reaction to stress Take 1 Tablet by mouth every 8 hours as needed for Anxiety. 30 Tablet 4 Active Budeson-Glycopyrro l-Formoterol 160-9-4.8 MCG/ACT Inhalation AerosolIndications :COPD, group C, by GOLD 2017 classification ([facility]) Inhale 2 Puffs by mouth in the morning and 2 Puffs before bedtime. 10.7 g 5 4 Active Gill-Farzana Rx 1 MG Oral Tablet TAKE ONE TABLET BY MOUTH ONCE DAILY 90 Tablet 3 4 Active documented as of this encounter (statuses as of 03/07/2024) Active Problems Problem Noted Date Diagnosed Date [...] as of this encounter (statuses as of 03/07/2024) Resolved Problems Problem Noted Date Diagnosed Date [...] T4 - Unsigned Other chronic cystitis 08/06/201412/27 Overview (08/06/2014): Related to chronic indwelling catheter. Treat only when symptomatic. CKD (chronic kidney disease) stage 5, GFR less than 15 ml/min 07/23/2014 05/06/2015 Rash of face 06/04/2014 12/27/2016 Urinary retention 05/20/2014 12/27/2016 MELODY (acute kidney injury) 05/06/2014 Hypertension, essential 04/0 08/2015 Use of leuprolide acetate (Lupron) 12/27/2016 documented as of this encounter (statuses as of 03/07/2024) Immunizations Name Administration Dates Next Due COVID-19 mRNA, LNP-s, No Pre serve, 2-Dose Series (Pfizer) 01/19/2021,06/10/2020,05/20/2020 HEP B - Hepatitis B (Dialysis/Immumocomp Pt) 12/20/2018,07/21/2018,06/19/2018 PPD 05/03/2018 Pneumococcal Conjugate Vacci ne, 20-valent ([id number]) 03/16/2022 Pneumococcal Polysaccharide PPV23 (Pneumovax) 12/28/2017 Seasonal Influenza Vac., MDV , IM, 0.5 mL (Fluzone) 12/28/2018,12/27/2016,01/12/2016 Seasonal Influenza Virus Vac cine, Unspecified Formulation 12/22/2020,12/28/2018,12/27/2016,01/11 Seasonal Influenza, High Dos e, Trivalent, PF, IM (Fluzone HD) 12/06/2023 Seasonal Influenza, PF, 6 M & above, IM , (FluLaval or Fluzone) 12/22/2020,12/28/2018,12/27/2016 Seasonal Influenza, Quadriva lent Hd, 65+ Yrs 11/15/2022 Seasonal Influenza, Quadriva lent, No Preserve, IM 01/12/2016,01/06/2015 Seasonal Influenza, Quadriva lent,with Preserve, 3 yr & above, IM 12/04/2021,11/05/2020,11/13/2019,11/22 TDAP (age 10 and older)(Boostrix) 12/28/2017 documented [...] Assigned at Male 04/23/2019 6:20 PM EST Legal Sex Male 12:31 PM EST Gender Identity Male 04/23/2019 6:20 PM EST Sexual Orientation Straight 04/23/2019 6: 20 PM EST Occupation Industry Job Start Date Job End Date Retired Not on file Not on file Not on file documented as of this encounter Functional Status * Are you deaf or do you have serious difficulty hearing? Answer Date of Assessment Author No 04/15/2015 3:27 PM EST Lloyd, J sharan M, RN * Are you blind or do you have serious difficulty seeing, even when wearing glasses? Answer Date of Assessment Author No 04/15/2015 3:27 PM Farhana Velazco RN * Do you have serious difficulty walking or climbing stairs? (5 years old or older) Answer Date of Assessment Author No 04/15/2015 3:27 PM Farhana Velazco RN * Do you have difficulty dressing or bathing? (5 years old or older) Answer Date of Assessment Author No 04/15/2015 3:27 PM Farhana Velazco RN * Because of a physical, mental, or emotional condition, do you have difficulty doing errands alone such as visiting a doctors office or shopping? (15 years old or older) Answer Date of Assessment Author No 04/15/2015 3:27 PM Farhana Velazco RN documented as of this encounter Mental Status * Because of a physical, mental, or emotional condition, do you have serious difficulty concentrating, remembering, or making decisions? (5 years old or older) Answer Entry Date Author No 04/15/2015 3:27 PM Farhana Velazco RN documented in this encounter Miscellaneous Notes * Telephone Encounter - Chrissy Vazquez LPN - 03/05/2024 12:48 PM EST Patient's is aware and verbalizes understanding. * Telephone Encounter - Baylee Otero CCMA - 03/05/2024 10:53 AM EST Attempted to call patient, there was no answer, left voicemail. When patient returns call, ok for VICTORIANO to relay message, please refer to below documentation. If needed, can transfer to dedicated nurse line. * Telephone Encounter - Sarah Vázquez LPN - 03/01/2024 8:40 AM EST ----- Message from Edgar Grey MD sent at 03/01/2024 8:30 AM EST ----- Aortic stenosis remain moderate. Heart is pumping strong, nonetheless there is mild impaired relaxation of the heart muscle. Please continue the same medications. documented in this encounter Plan of Treatment Upcoming Encounters Date Type Department Care Team (Late st Contact Info) Description 03/20/2024 8:30 AM EST Laboratory Laboratory Patient Service [facility] [address] [place] [phone] [address] 04/03/2024 9:30 AM EST Imaging Radiology [address] 132 [facility] [place] [address] 04/08/2024 10:40 AM EST Office Visit [address] [phone] Edgar Gibbs MD [address] [place] [address] 04/10/2024 9:15 AM EST Office Visit Urology, [facility] 132 [facility] [place] [address] Travon Canales MD [address] [place] [address] [place] [address] 04/12/2024 9:30 AM EST Office Visit Cardiology, [facility] 132 [facility] [place] [address] Gris Alford CRNP 132 [facility] [place] [address] 05/01/2024 12:00 PM EST Office Visit Pulmonary Medicine, [facility] 132 [facility] [place] [address] Tino Stapleton MD [address] [place] [address] 05/06/2024 11:00 AM EDT Appointment Interventional Radiology C, [facility] [place] 1st Floor [address] [facility] [address] Health Maintenance Due Date Last Done Comments Adult Wellness Visit 05/18/2009 *COPD SEVERITY VERIFIED BY PFT 03/05/2022 COVID-19 Vaccine ( season) 2023 01/19/2021, 06/10/2020, 05/20/2020 Depression Screening 06/15/2024 06/16/2023 DISCUSS TOBACCO CESSATION (REFER TO SMARTSET #3291) 09/24/2024 09/25/2023 (Discussed), 06/03/2022 O2 ASSESSMENT COMPLETED IN PAST YEAR FOR COPD 02/04/2025 02/05/2024 DTap/Tdap Vaccines (2 - Td or Tdap) 12/29/2027 12/28/2017 Hepatitis B Vaccine Completed 12/20/2018, 07/21/2018, 06/19/2018 Pneumococcal Vaccine: 50+ Years Completed 03/16/2022, 12/28/2017 Alpha-1 Antitrypsin Completed 09/18/2023 Influenza Vaccine (FLU shot) Completed 12/06/2023, 11/15/2022, 12/04/2021, Additional history exists HPV (Gardasil) Vaccine Aged Out No lo [...] and were consensually agreed upon. Care Teams Yam Curer Relationship Specialty Start Date End Date Edgar Gibbs MD [address] [place] [phone] PCP - General Family Medicine 07/03/20 documented as of this encounter
--- OUTSIDE RECORDS SUMMARY | 2024-03-13 16:16 | External Medical Summary | Summary of Care ---
Author Name Unknown Organization [facility] Address [address] [facility] [address] Phone [phone] Care Team Providers Care Standards Analyst Name Role Phone Edgar Gibbs MD Primary Care P rovider Encounter Details Date Type Department Care Team (Late st Contact Info) Description 02/19/2024 Result Scan Unspecified Department Pako Ramos MD [address] [facility] [address] <No scans attached> Allergies Active Allergy Reactions Criticality Noted Date Comments Latex 07/19/2019 Pantoprazole Sodium Edema face/lips/tongue High 04/0 02/2014 documented as of this encounter (statuses as of 02/26/2024) Medications Cholecalciferol 2000 units Capsule Take 1 [...] :COPD, group C, by GOLD 2017 classification ([facility]) Inhale 2 Puffs by mouth in the morning and 2 Puffs before bedtime. 10.7 g 5 4 Active Gill-Farzana Rx 1 MG Oral Tablet TAKE ONE TABLET BY MOUTH ONCE DAILY 90 Tablet 3 4 Active documented as of this encounter (statuses as of 02/26/2024) Active Problems Problem Noted Date Diagnosed Date [...] as of this encounter (statuses as of 02/26/2024) Resolved Problems Problem Noted Date Diagnosed Date [...] as of this encounter (statuses as of 02/26/2024) Immunizations Name Administration Dates Next Due COVID-19 mRNA, LNP-s, No Pre serve, 2-Dose Series ([employer]) 01/19/2021,06/10/2020,05/20/2020 HEP B - Hepatitis B (Dialysis/Immumocomp Pt) 12/20/2018,07/21/2018,06/19/2018 PPD 05/03/2018 Pneumococcal Conjugate Vacci ne, 20-valent ([id number]) 03/16/2022 Pneumococcal Polysaccharide PPV23 (Pneumovax) 12/28/2017 Seasonal [...] No 06/16/2023 Does the household have a [facility] source of income? (Household - for [...] 04/15/2015 3:27 PM Farhana Velazco RN * Are you blind or do [...] Farhana Velazco RN documented in this encounter Plan of Treatment Upcoming Encounters Date Type Department Care Team (Late st Contact Info) Description 02/27/2024 1:00 PM EST Cardiac Studies Cardiac Studies, [facility] 132 [facility] [place] [address] 03/20/2024 8:30 AM EST Laboratory Laboratory [facility] [phone] [address] 04/03/2024 9:30 AM EST Imaging Radiology [facility] 132 [facility] [place] [address] 04/10/2024 9:15 AM EST Office Visit Urology, [facility] 132 [facility] [place] [address] Travon Canales MD [address] [address] [address] 04/12/2024 9:30 AM EST Office Visit Cardiology, [address] [place] [address] Gris Alford CRNP 132 [facility] [place] [address] 05/01/2024 12:00 PM EST Office Visit Pulmonary Medicine, [facility] 132 [facility] [place] [address] Tino Stapleton MD [address] [place] [address] 05/06/2024 11:00 AM EDT Appointment Interventional Radiology [facility] 1st Floor [address] [place] [address] Health Maintenance Due Date Last Done [...] Date/Time Associated Diagnosis Comments OUTSIDE LAB RESULTS 02/19/2024 documented in this encounter Results * OUTSIDE LAB RESULTS (02/19/2024) 02/19/2024 Pako Ramos MD LABORATORY Final Result documented in this encounter Advance Directives * Full Code (Latest Code Status on File) Date Activated Date Inactivated Comments 04/15/2015 4:40 PM 04/16/2015 5:24 PM This order r eflects the patients wishes and were consensually agreed upon. Care Teams Standards Analyst Relationship Specialty Start Date End Date Edgar Gibbs MD [address] [place] [address] PCP - General Family Medicine 07/03/20 documented as of this encounter
--- OUTSIDE RECORDS SUMMARY | 2024-03-13 16:16 | External Medical Summary | Summary of Care ---
Author Name Unknown Organization [facility] Address [address] [facility] [place] [address] Phone [phone] Care Team Providers Care Telecine Operator Name Role Phone Edgar Gibbs MD Primary Care P rovider Encounter Details Date Type Department Care Team (Late st Contact Info) Description 02/26/2024 Result Scan Unspecified Department <No scans attached> Allergies Active Allergy Reactions Criticality Noted Date Comments Latex 07/19/2019 Pantoprazole Sodium Edema face/lips/tongue High 04/0 02/2014 documented as of this encounter (statuses as of 03/04/2024) Medications Cholecalciferol 2000 units Capsule Take 1 [...] Base) MCG/ACT Inhalation Aerosol SolutionIndication s:COPD exacerbation ([facility]) INHALE TWO PUFFS BY MOUTH [...] :COPD, group C, by GOLD 2017 classification ([facility]) Inhale 2 Puffs by mouth in the morning and 2 Puffs before bedtime. 10.7 g 5 4 Active Gill-Farzana Rx 1 MG Oral Tablet TAKE ONE TABLET BY MOUTH ONCE DAILY 90 Tablet 3 4 Active documented as of this encounter (statuses as of 03/04/2024) Active Problems Problem Noted Date Diagnosed Date [...] as of this encounter (statuses as of 03/04/2024) Resolved Problems Problem Noted Date Diagnosed Date [...] as of this encounter (statuses as of 03/04/2024) Immunizations Name Administration Dates Next Due COVID-19 mRNA, LNP-s, No Pre serve, 2-Dose Series ([employer]) 01/19/2021,06/10/2020,05/20/2020 HEP B - Hepatitis B (Dialysis/Immumocomp Pt) 12/20/2018,07/21/2018,06/19/2018 PPD 05/03/2018 Pneumococcal Conjugate Vacci ne, 20-valent ([id number]) 03/16/2022 Pneumococcal Polysaccharide PPV23 (Pneumovax) 12/28/2017 Seasonal [...] No 06/16/2023 Does the household have a [facility] source of income? (Household - for [...] 8:30 AM EST Laboratory Laboratory Patient Service [address] [phone] [address] [address] 04/03/2024 9:30 AM EST Imaging Radiology [address] 132 [facility] [place] [address] 04/08/2024 10:40 AM EST Office Visit Family [address] [phone] Edgar Gibbs MD [address] [place] [address] 04/10/2024 9:15 AM EST Office Visit Urology, [facility] 132 [facility] [place] [address] Travon Canales MD [address] [place] [address] [address] 04/12/2024 9:30 AM EST Office Visit Cardiology, [facility] 132 [facility] [place] [address] Gris Alford CRNP 132 [facility] [place] [address] 05/01/2024 12:00 PM EST Office Visit Pulmonary Medicine, [facility] 132 [facility] [place] [address] Tino Stapleton MD [address] [facility] [place] [address] 05/06/2024 11:00 AM EDT Appointment Interventional Radiology [facility] 1st Floor [address] [place] [address] Health Maintenance Due Date Last [...] Date/Time Associated Diagnosis Comments OUTSIDE LAB RESULTS 02/26/2024 documented in this encounter Results * OUTSIDE LAB RESULTS (02/26/2024) 02/26/2024 us No Physician Data Unknown LABORATORY Final Result documented in this encounter Advance Directives * Full Code (Latest Code Status on File) Date Activated Date Inactivated Comments 04/15/2015 4:40 PM 04/16/2015 5:24 PM This order r eflects the patients wishes and were consensually agreed upon. Care Teams Telecine Operator Relationship Specialty Start Date End Date Edgar Gibbs MD [address] [place] [phone] PCP - General Family Medicine 07/03/20 documented as of this encounter
--- OUTSIDE RECORDS SUMMARY | 2024-03-13 16:16 | External Medical Summary | Summary of Care ---
Author Name Unknown Organization [facility] Address [address] [facility] [place] [address] Phone [phone] Care Team Providers Care Stripper Latex Name Role Phone Edgar Gibbs MD Primary Care P rovider Encounter Details Date Type Department Care Team (Late st Contact Info) Description 03/05/2024 Result Scan Unspecified Department <No scans attached> Allergies Active Allergy Reactions Criticality Noted Date Comments Latex 07/19/2019 Pantoprazole Sodium Edema face/lips/tongue High 04/0 02/2014 documented as of this encounter (statuses as of 03/11/2024) Medications Cholecalciferol 2000 units Capsule Take 1 [...] Base) MCG/ACT Inhalation Aerosol SolutionIndication s:COPD exacerbation ([facility]) INHALE TWO PUFFS [...] :COPD, group C, by GOLD 2017 classification ([facility]) Inhale 2 Puffs by mouth in the morning and 2 Puffs before bedtime. 10.7 g 5 4 Active Gill-Farzana Rx 1 MG Oral Tablet TAKE ONE TABLET BY MOUTH ONCE DAILY 90 Tablet 3 4 Active documented as of this encounter (statuses as of 03/11/2024) Active Problems Problem Noted Date Diagnosed Date [...] as of this encounter (statuses as of 03/11/2024) Resolved Problems Problem Noted Date Diagnosed Date [...] as of this encounter (statuses as of 03/11/2024) Immunizations Name Administration Dates Next Due COVID-19 mRNA, LNP-s, No Pre serve, 2-Dose Series ([employer]) 01/19/2021,06/10/2020,05/20/2020 Hep B Vac., Dialysis, 4 Dose , IM, 2mL (Engerix B) 12/20/2018,07/21/2018,06/19/2018 PPD 05/03/2018 Pneumococcal Conjugate Vacci ne, 20-valent ([id number]) 03/16/2022 Pneumococcal Polysaccharide PPV23 (Pneumovax) 12/28/2017 Seasonal [...] 8:30 AM EST Laboratory Laboratory Patient Service [address] [phone] [address] [address] 04/03/2024 9:30 AM EST Imaging Radiology [address] [place] [phone] 04/08/2024 10:40 AM EST Office Visit Family [address] [phone] Edgar Gibbs MD [address] [place] [address] 04/10/2024 9:15 AM EST Office Visit Urology, [facility] 132 [place] [place] [address] Travon Canales MD 27 [facility] [place] [address] 04/12/2024 9:30 AM EST Office Visit Cardiology, [facility] 132 [facility] [place] [address] Gris Alford CRNP 132 [facility] [place] [address] 05/01/2024 12:00 PM EST Office Visit Pulmonary Medicine, [facility] 132 [facility] [place] [address] Tino Stapleton MD [address] [place] [address] 05/06/2024 11:00 AM EDT Appointment Interventional Radiology [facility] 1st Floor [address] [place] [address] Health Maintenance Due Date Last [...] Date/Time Associated Diagnosis Comments OUTSIDE LAB RESULTS 03/05/2024 documented in this encounter Results * OUTSIDE LAB RESULTS (03/05/2024) 03/05/2024 us No Physician Data Unknown LABORATORY Final Result documented in this encounter Advance Directives * Full Code (Latest Code Status on File) Date Activated Date Inactivated Comments 04/15/2015 4:40 PM 04/16/2015 5:24 PM This order r eflects the patients wishes and were consensually agreed upon. Care Teams Stripper Latex Relationship Specialty Start Date End Date Edgar Gibbs MD [address] [place] [id number] PCP - General Family Medicine 07/03/20 documented as of this encounter
--- OUTSIDE RECORDS SUMMARY | 2024-03-13 16:16 | External Medical Summary | Summary of Care ---
Author Name Unknown Organization [facility] Address [address] [facility] [place] [address] Phone [phone] Care Team Providers Care Sculpture Conservator Name Role Phone Edgar Gibbs MD Primary Care P rovider Encounter Details Date Type Department Care Team (Late st Contact Info) Description 02/15/2024 Result Scan Unspecified Department <No scans attached> Allergies Active Allergy Reactions Criticality Noted Date Comments Latex 07/19/2019 Pantoprazole Sodium Edema face/lips/tongue High 04/0 02/2014 documented as of this encounter (statuses as of 02/19/2024) Medications Cholecalciferol 2000 units Capsule Take 1 [...] Base) MCG/ACT Inhalation Aerosol SolutionIndication s:COPD exacerbation ([facility]) INHALE TWO PUFFS BY [...] group C, by GOLD 2017 classification ([facility]) Inhale 2 Puffs by mouth in the morning and 2 Puffs before bedtime. 10.7 g 5 4 Active Gill-Farzana Rx 1 MG Oral Tablet TAKE ONE TABLET BY MOUTH ONCE DAILY 90 Tablet 3 4 Active documented as of this encounter (statuses as of 02/19/2024) Active Problems Problem Noted Date Diagnosed Date [...] as of this encounter (statuses as of 02/19/2024) Resolved Problems Problem Noted Date Diagnosed Date [...] as of this encounter (statuses as of 02/19/2024) Immunizations Name Administration Dates Next Due COVID-19 mRNA, LNP-s, No Pre serve, 2-Dose Series ([employer]) 01/19/2021,06/10/2020,05/20/2020 HEP B - Hepatitis B (Dialysis/Immumocomp Pt) 12/20/2018,07/21/2018,06/19/2018 PPD 05/03/2018 Pneumococcal Conjugate Vacci ne, 20-valent ([id number]) 03/16/2022 Pneumococcal Polysaccharide PPV23 (Pneumovax) 12/28/2017 Seasonal [...] No 06/16/2023 Does the household have a [facility] source of income? (Household - for ages [...] 1:00 PM EST Cardiac Studies Cardiac Studies, [facility] 132 [facility] [place] [address] 03/20/2024 8:30 AM EST Laboratory Laboratory [facility], [address] [phone] [address] 03/27/2024 1:50 PM EST Office Visit [address] [phone] Edgar Gibbs MD [address] [place] [address] 04/03/2024 9:30 AM EST Imaging Radiology [facility] 1st [facility] 132 [facility] [place] [address] 04/10/2024 9:15 AM EST Office Visit Urology, [facility] 132 [facility] [place] [address] Travon Canales MD [address] [address] [address] 04/12/2024 9:30 AM EST Office Visit Cardiology, [facility] 132 [facility] [place] [address] Gris Alford CRNP 132 [facility] [place] [address] 05/01/2024 12:00 PM EST Office Visit Pulmonary Medicine, [facility] 132 [facility] [place] [address] Tino Stapleton MD [address] [facility] [place] [address] 05/06/2024 11:00 AM EDT Appointment Interventional Radiology [facility], [facility] 1st Floor [address] [place] [address] Health Maintenance Due Date Last [...] Date/Time Associated Diagnosis Comments OUTSIDE LAB RESULTS 02/15/2024 documented in this encounter Results * OUTSIDE LAB RESULTS (02/15/2024) 02/15/2024 us No Physician Data Unknown LABORATORY Final Result documented in this encounter Advance Directives * Full Code (Latest Code Status on File) Date Activated Date Inactivated Comments 04/15/2015 4:40 PM 04/16/2015 5:24 PM This order r eflects the patients wishes and were consensually agreed upon. Care Teams Sculpture Conservator Relationship Specialty Start Date End Date Edgar Gibbs MD [address] [place] [address] [place] [address] PCP - General Family Medicine 07/03/20 documented as of this encounter
--- OUTSIDE RECORDS SUMMARY | 2024-03-13 16:17 | External Medical Summary | Summary of Care ---
Author Name Unknown Organization [facility] Address [address] [facility] [place] [address] Phone [phone] Care Team Providers Care Compliance Tester Name Role Phone Edgar Gibbs MD Primary Care P rovider Reason for Referral * Precert (Within 10 days (routine)) - Authorized Specialty Diagnoses / Procedures Referred By Cecilia mendieta Referred To Contact Radiology Diagnoses Nephrostomy status (HCC) Procedures IR GENITORINARY NEPHRO/CYSTO/URETERAL Moses Winter MD [address] [facility] [place] [address] Phone: tel: fax: Referral ID Status Reason Start Date Expiration Date V isits Requested Visits Authorized [id number] Authorized 02/06/2024 20 20 Encounter Details Date Type Department Care Team (Late st Contact Info) Description 02/06/2024 Documentation Interventional Radiology [facility] 1st Floor [address] [place] [address] oMses Winter MD [address] [facility] [place] [address] Nephrostomy status (HCC)* Allergies Active Allergy Reactions Criticality Noted Date Comments Latex 07/19/2019 Pantoprazole Sodium Edema face/lips/tongue High 04/0 02/2014 documented as of this encounter (statuses as of 02/06/2024) Medications Cholecalciferol 2000 units Capsule Take 1 [...] Acetate (3 Month) 22.5 MG Subcutaneous Kit (Lucidity (MemberRx)) Inject 22.5 mg under the skin. 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 90 Tablet 3 4 Active LORazepam 0.5 MG Oral Tablet (Ativan)Indication s:Panic attack as reaction to stress Take 1 Tablet by mouth every 8 hours as needed for Anxiety. 30 Tablet 4 Active Budeson-Glycopyrro l-Formoterol 160-9-4.8 MCG/ACT Inhalation AerosolIndications :COPD, group C, by GOLD 2017 classification ([facility]) Inhale 2 Puffs by mouth in the morning and 2 Puffs before bedtime. 10.7 g 5 4 Active Gill-Farzana Rx 1 MG Oral Tablet TAKE ONE TABLET BY MOUTH ONCE DAILY 90 Tablet 3 4 Active documented as of this encounter (statuses as of 02/06/2024) Active Problems Problem Noted Date Diagnosed Date [...] as of this encounter (statuses as of 02/06/2024) Resolved Problems Problem Noted Date Diagnosed Date [...] as of this encounter (statuses as of 02/06/2024) Immunizations Name Administration Dates Next Due COVID-19 mRNA, LNP-s, No Pre serve, 2-Dose Series (Ombitron) 01/19/2021,06/10/2020,05/20/2020 HEP B - Hepatitis B (Dialysis/Immumocomp Pt) 12/20/2018,07/21/2018,06/19/2018 PPD 05/03/2018 Pneumococcal Conjugate Vacci ne, 20-valent ([id number]) 03/16/2022 Pneumococcal Polysaccharide PPV23 (Pneumovax) 12/28/2017 Seasonal [...] 1:00 PM EST Cardiac Studies Cardiac Studies, [address] [place] [address] 03/20/2024 8:30 AM EST [facility], [address] [place] [address] [place], Lab [address] [place] [address] 03/27/2024 1:50 PM EST Office Visit [facility] [address] [place] [phone] Edgar Gibbs MD [address] [place] [address] 04/03/2024 9:30 AM EST Imaging Radiology [facility] 1st Floor, [place] [address] [facility] [place] [address] 04/10/2024 9:15 AM EST Office Visit Urology, [facility] [address] [facility] [place] [address] Travon Canales MD [address] [place] [address] 04/12/2024 9:30 AM EST Office Visit Cardiology, [facility] [address] [facility] [place] [address] Gris Alford CRNP 132 [facility] [place] [address] 05/01/2024 12:00 PM EST Office Visit Pulmonary Medicine, [facility] [address] [facility] [place] [address] Tino Stapleton MD [address] [place] [address] Scheduled Orders Name Type Priority Associated Diagnoses Order Schedule IR GENITORINARY NEPHRO/CYSTO/URETERAL Medical Imaging Routine Nephrostomy status (HCC) 20 Occurrences starting 02/06/2024 until 03/08/2025 Health Maintenance Due Date Last Done Comments Adult Wellness Visit 05/18/2009 *COPD SEVERITY VERIFIED BY PFT 03/05/2022 COVID-19 Vaccine ( season) 2023 01/19/2021, 06/10/2020, 05/20/2020 Depression Screening 06/15/2024 06/16/2023 DISCUSS TOBACCO CESSATION (REFER TO SMARTSET #0037) 09/24/2024 09/25/2023 (Discussed), 06/03/2022 O2 ASSESSMENT COMPLETED [...] tract documented in this encounter Advance Directives * Full Code (Latest Code Status on File) Date Activated Date Inactivated Comments 04/15/2015 4:40 PM 04/16/2015 5:24 PM This order r eflects the patients wishes and were consensually agreed upon. Care Teams Compliance Tester Relationship Specialty Start Date End Date Edgar Gibbs MD [address] [place] [address] PCP - General Family Medicine 07/03/20 documented as of this encounter
--- OUTSIDE RECORDS SUMMARY | 2024-03-13 16:17 | External Medical Summary | Summary of Care ---
Author Name Unknown Organization [facility] Address [address] [facility] [address] Phone [phone] Care Team Providers Care Lathe Machine Operator Name Role Phone Edgar Gibbs MD Primary Care P rovider Encounter Details Date Type Department Care Team (Late st Contact Info) Description 01/02/2024 Result Scan Unspecified Department Pako Ramos MD [address] [place] [address] <No scans attached> Allergies Active Allergy Reactions Criticality Noted Date Comments Latex 07/19/2019 Pantoprazole Sodium Edema face/lips/tongue High 04/0 02/2014 documented as of this encounter (statuses as of 01/08/2024) Medications Cholecalciferol 2000 units Capsule Take 1 Capsule by mouth in the morning. 30 Cap 3 8 Active Calcium Acetate, Phos Binder, 667 MG TABSIndications:Ki dney disease, chronic, stage V (GFR under 15 ml/min) ([facility]) take 2 pills 3 x [...] :COPD, group C, by GOLD 2017 classification ([facility]) Inhale 2 Puffs by mouth in the morning and 2 Puffs before bedtime. 10.7 g 5 4 Active Gill-Farzana Rx 1 MG Oral Tablet TAKE ONE TABLET BY MOUTH ONCE DAILY 90 Tablet 3 4 Active documented as of this encounter (statuses as of 01/08/2024) Active Problems Problem Noted Date Diagnosed Date [...] as of this encounter (statuses as of 01/08/2024) Resolved Problems Problem Noted Date Diagnosed Date [...] as of this encounter (statuses as of 01/08/2024) Immunizations Name Administration Dates Next Due COVID-19 mRNA, LNP-s, No Pre serve, 2-Dose Series (COADE) 01/19/2021,06/10/2020,05/20/2020 HEP B - Hepatitis B (Dialysis/Immumocomp Pt) 12/20/2018,07/21/2018,06/19/2018 PPD 05/03/2018 Pneumococcal Conjugate Vacci ne, 20-valent ([id number]) 03/16/2022 Pneumococcal Polysaccharide PPV23 (Pneumovax) 12/28/2017 Seasonal [...] 06/16/2023 Does the household have a [facility] source of income? (Household - for [...] Care Team (Late st Contact Info) Description 01/10/2024 11:30 AM EST Hospital Encounter Interventional Radiology [facility] [address] [place] [address] 02/27/2024 1:00 PM EST Cardiac Studies Cardiac Studies, [address] [place] [address] 03/20/2024 8:30 AM EST [facility] [phone] [address] 03/27/2024 1:50 PM EST Office Visit Family [address] [phone] Edgar Gibbs MD [address] [place] [address] 04/03/2024 9:30 AM EST Imaging Radiology [address] [place] [address] 04/10/2024 9:15 AM EST Office Visit Urology, [facility] [address] [facility] [place] [address] Travon Canales MD [address] [place] [address] 04/12/2024 9:30 AM EST Office Visit Cardiology, [facility] [address] [facility] [place] [address] Gris Alford CRNP 132 [facility] [place] [address] 05/01/2024 12:00 PM EST Office Visit Pulmonary Medicine, [facility] [address] [facility] [place] [address] Tino Stapleton MD [address] [place] [address] Health Maintenance Due Date Last Done Comments Adult Wellness Visit 05/18/2009 *COPD SEVERITY VERIFIED BY PFT 03/05/2022 COVID-19 Vaccine ( season) 2023 01/19/2021, 06/10/2020, 05/20/2020 Depression Screening 06/15/2024 06/16/2023 DISCUSS TOBACCO CESSATION (REFER TO SMARTSET #3291) 09/24/2024 09/25/2023 (Discussed), 06/03/2022 O2 ASSESSMENT COMPLETED IN PAST YEAR FOR COPD 12/05/2024 12/06/2023 DTap/Tdap Vaccines (2 - Td or Tdap) [...] Date/Time Associated Diagnosis Comments OUTSIDE LAB RESULTS 01/02/2024 documented in this encounter Results * OUTSIDE LAB RESULTS (01/02/2024) 01/02/2024 Pako Ramos MD LABORATORY Final Result documented in this encounter Advance Directives * Full Code (Latest Code Status on File) Date Activated Date Inactivated Comments 04/15/2015 4:40 PM 04/16/2015 5:24 PM This order r eflects the patients wishes and were consensually agreed upon. Care Teams Lathe Machine Operator Relationship Specialty Start Date End Date Edgar Gibbs MD [address] [place] [address] PCP - General Family Medicine 07/03/20 documented as of this encounter
--- OUTSIDE RECORDS SUMMARY | 2024-03-13 16:17 | External Medical Summary | Summary of Care ---
Author Name Unknown Organization [facility] Address [address] [place] [address] Phone [phone] Care Team Providers Care Dinkey Dispatcher Name Role Phone Edgar Gibbs MD Primary Care P rovider Reason for Referral * Precert (Within 10 days (routine)) - Authorized Specialty Diagnoses / Procedures Referred By Cecilia mendieta Referred To Contact Radiology Diagnoses Nephrostomy status (HCC) Procedures IR GENITORINARY NEPHRO/CYSTO/URETERAL Geeta Rai CRNP Referral ID Status Reason Start Date Expiration Date V isits Requested Visits Authorized [id number] Authorized 01/09/2023 50 50 Reason for Visit * Precert (Within 10 days (routine)) - Authorized Specialty Diagnoses / Procedures Referred By Cecilia mendieta Referred To Contact Radiology Diagnoses Nephrostomy status (HCC) Procedures IR GENITORINARY NEPHRO/CYSTO/URETERAL Geeta Rai CRNP Referral ID Status Reason Start Date Expiration Date V isits Requested Visits Authorized [id number] Authorized 01/09/2023 50 50 Encounter Details Date Type Department Care Team (Latest Contact Info) Description 02/05/2024 10:58 AM EST - 02/05/2024 2:40 PM EST Hospital Encounter Radiology Waiting Room [facility] 1st Floor [address] [place], [place] [phone] Jey Montenegro MD [address] [place] [address] Arrived Discharge Disposition: Home - [...] Acetate (3 Month) 22.5 MG Subcutaneous Kit (ARX) Inject 22.5 mg under the skin. Every 3 months 1 Active Ventolin HFA 108 (90 Base) MCG/ACT Inhalation Aerosol SolutionIndication s:COPD exacerbation (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) Take 1 Tablet by mouth in the morning. 90 Tablet 3 4 Active LORazepam 0.5 MG Oral Tablet (Ativan)Indication s:Panic attack as reaction to stress Take 1 Tablet by mouth every 8 hours as needed for Anxiety. 30 Tablet 4 Active Budeson-Glycopyrro l-Formoterol 160-9-4.8 MCG/ACT Inhalation AerosolIndications :COPD, group C, by GOLD 2017 classification ([facility]) Inhale 2 Puffs by mouth in the [...] mRNA, LNP-s, No Pre serve, 2-Dose Series (Dodreams) 01/19/2021,06/10/2020,05/20/2020 HEP B - Hepatitis B (Dialysis/Immumocomp Pt) 12/20/2018,07/21/2018,06/19/2018 PPD 05/03/2018 Pneumococcal Conjugate Vacci ne, 20-valent ([id number]) 03/16/2022 Pneumococcal Polysaccharide PPV23 (Pneumovax) 12/28/2017 Seasonal [...] No Preserve, IM 01/12/2016,01/06/2015 Seasonal Influenza, Quadriva frant,with Preserve, 3 yr & above, IM 12/04/2021,11/05/2020,11/13/2019,11/22 [...] Sign Reading Time Taken Comments Blood Pressure 139/69 02/05/2024 2:30 PM EST Pulse 74 02/05/2024 2:30 PM EST Temperature 36.4 C (97.5 F) 02/05/2024 2:30 PM ES T Respiratory Rate 14 02/05/2024 2:30 PM EST Oxygen Saturation 97% 02/05/2024 2:30 PM EST Inhaled Oxygen Concentration - - Weight - - Height - - Body Mass Index - - documented in this encounter Functional Status * Are you [...] Farhana Velazco RN documented in this encounter Discharge Instructions * Discharge Instr - AVS* Moses Winter MD - 02/05/2024 1:23 PM EST Discharge Date: 02/05/2024 Provider: Dr. Abiodun Rhodes If you are experiencing any problems related to your procedure, please contact Interventional Radiology at [phone] during normal business hours: Monday - Monday, 8:00 am - 4:00 pm. If a problem occurs outside of normal business hours, please call the hospital non licensed operator at [phone] and ask for the Interventional Radiologist urban and regional planner. Contact scheduling for Interventional Radiology at [phone] during normal business hours: Monday - Monday, [...] flushes, we can call the prescription into [facility] if no one close to you [...] homicidal, please call the crisis hotline at [phone] ([phone]). Driving: You may resume driving after 4 hours . Diet: You may resume your current diet as tolerated. Return to work or school: You may return to school or work 8 hours after the procedure, unless otherwise instructed by the physician. documented in this encounter Nursing Notes * Geeta Loco LPN - 02/05/2024 2:39 PM EST DISCHARGE - POST INTERVENTIONAL RADIOLOGY PROCEDURE Patient meets discharge criteria for Interventional Radiology. Vital signs stable. Dressing clean, dry, and intact. IV site removed. Patient awake and oriented to pre procedure baseline. Discharge instructions given, no questions at this time. Patient tolerating liquids, with no nausea/vomiting. All belongings sent with patient. Discharged to home. Vital Signs: BP: 139/69 (02/05/241429) Temp: 36.4 C (97.5 F) (02/05/241429) Pulse: 74 (02/05/241429) Resp: 14 (02/05/241429) SpO2: 97 % (02/05/241429) Neurological: Sharon Coma Scale - For patients greater than two years old Eyes Open: Spontaneous (02/05/241429) Best Verbal Response: Verbally appropriate for age (02/05/241429) Best Motor Response: Obeys commands appropriate for age (02/05/241429) Coma Score: 15 (02/05/241429) @ANEPOSTANESSCORE@ Respiratory: * Mel Baltazar RN - 02/05/2024 12:58 PM EST glaze wiper note Name: Matthew Rowe Procedure: Right PCNU Exchange Patient ID band checked using two identifiers. Patient assisted into prone position on the procedure table with comfort measures intact and safety strap in place. Hemodynamic monitoring initiated. Patient denies any complaints at current time. RT staff preparing patient for procedure. 12:58 PM 1 mg Versed administered. 1:09 PM Timeout performed by Dr. Abiodun Rhodes. Correct catheter/tube size verbalized and verified during timeout. 1:10 PM Right PCNU exchange started by Dr. Winter and Suman Hutchison, RT. Imaging obtained. 1:12 PM Guidewire inserted. Images obtained. 1:14 PM Old PCNU removed. Images obtained. 1:16 PM Wicron Oliver Nephroureterostomy Stent placed (10.2 Fr. X 22 cm; Lot: [id number]. Exp: 10/17/2026). Images obtained. 1:17 PM 1% buffered lidocaine being administered. 1:21 PM Drain sutured. 1:21 PM Area cleaned. Cap applied All wires, catheters, sheaths and other devices [...] operating physician. Pt did not receive conscious sedation. Total Medications Ceftriaxone: 1 g 1% buffered lidocaine: 2 mL Versed: 2 mg Please see doctor's operative note for additional details. documented in this encounter Miscellaneous Notes * Postprocedure Note - Moses Winter MD - 02/05/2024 12:00 PM EST PROCEDURE NOTE - Interventional Radiology [facility] [address] Name: Matthew Rowe Location: RADIOLOGY WAITING ROOM/IR Date: 02/05/2024 Time: 1:24 PM PROCEDURE: Right PCNU specification manager: Dr. Abiodun Rhodes ASSISTANTS: Dr. Moses Winter ANESTHESIA: local IV Versed COMPLICATIONS: none SPECIMEN: none ESTIMATED BLOOD LOSS: negligible FINDINGS: 10.2 Fr right PCNU exchanged and capped. PLAN: - routine exchange in IR in 3 months Electronically signed: Moses Winter MD IR/DR resident. documented in this encounter Plan of Treatment Upcoming Encounters Date Type Department Care Team (Late st Contact Info) Description 02/27/2024 1:00 PM EST Cardiac Studies Cardiac Studies, [facility] [address] [facility] [place] [address] 03/20/2024 8:30 AM EST Laboratory [facility], [address] [phone] [place], Lab Lock [address] [place] [address] 03/27/2024 1:50 PM EST Office Visit [facility] [address] [place] [phone] Edgar Gibbs MD [address] [place] [address] 04/03/2024 9:30 AM EST Imaging Radiology [facility] [address] [place] [address] 04/10/2024 9:15 AM EST Office Visit Urology, [address] [place] [address] Travon Canales MD [address] [place] [address] 04/12/2024 9:30 AM EST Office Visit Cardiology, [address] [place] [address] Gris Alford CRNP [address] [place] [address] 05/01/2024 12:00 PM EST Office Visit Pulmonary Medicine, [address] [place] [address] Tino Stapleton MD [address] [place] [address] Pending Results Name Type Priority Associated Diagnoses Date /Time IR GENITORINARY NEPHRO/CYSTO/URETERAL Medical Imaging Routine Nephrostomy status (HCC) 02/05/2024 1:22 PM EST Health Maintenance Due Date Last [...] Associated Diagnosis Comments IR GENITORINARY NEPHRO/CYSTO/URETE RAL Routine 02/05/2024 1:22 PM EST Nephrostomy status (HCC) Procedure Note - Abiodun Rhodes MD / Moses Winter MD - 02/05/2024 1:22 PM ESTThis note is in progress. PROCEDURE: Right nephroureteral catheter check and exchange. INDICATION: 78-year-old male with dependence on nephroureteral catheterdue to obstructive uropathy from prostate cancer, presents forpreventative catheter check and exchange. ATTENDING (OPERATING PHYSICIAN): Abiodun Rhodes MD SCRUBBED RESIDENT (OPERATING PHYSICIAN): Moses Winter MD SUPPORTING PROVIDER (SECTION HOUSEKEEPER): RT Estelita CONSENT: After a detailed discussion of the [...] performed under the personal supervision of Dr. Alaina MD who was present for the man and critical portions of theprocedure and immediately available for the entire procedure. FINDINGS: Right: Preliminary fluoroscopic evaluation of the right side demonstrateda nephroureteral catheter overlying the right flank. Antegradenephrostogram through the catheter demonstrated opacification of the rightcollecting system. Post exchange imaging confirms appropriate positioningof the new catheter. IMPRESSION IMPRESSION: Successful right nephroureteral catheter check and [...] Intradermal, ONCE PRN INTRA PROCEDURE, Starting on Mon02/05/24 at 1318, Until Mon02/05/24 at 1318, Intra-Op Given 02/05/2024 1:18 PM EST 2 mL cefTRIAXone in dextrose (Rocephin) IVPB 1 g IV Piggyback, 1 g, ONCE, 1 dose, On Mon02/05/24 at 1300, Administer over 30 Minutes New Bag 02/05/2024 12:28 PM EST 1 g 100 mL/hr Iopamidol (Isovue 300) inj 300 mL 300 mL, Intravenous, ONCE, On Mon02/05/24 at 1400, For 1 dose, Intra-Op Given 02/05/2024 2:00 PM EST 15 mL midazolam (Versed) 2 MG/2ML inj ONCE PRN INTRA PROCEDURE, Starting on Mon02/05/24 at 1258, Until Mon02/05/24 at 1307, Intra-Op Given 02/05/2024 1:07 PM EST 1 mg Given 02/05/2024 12:58 PM EST 1 mg documented in this encounter Active and Recently Administered Medications Times are shown in EST. Scheduled Medication Order 02/03/2024 02/04/2024 02/05/2024 cefTRIAXone in dextrose (Rocephin) IVPB 1 g (COMPLETED) IV Piggyback, 1 g, ONCE, 1 dose, On Mon02/05/24 at 1300, Administer over 30 Minutes 1228 (New Bag - Prov ider: Shannon Carrasco RN) Iopamidol (Isovue 300) inj 300 mL (COMPLETED) 300 mL, Intravenous, ONCE, On Mon02/05/24 at 1400, For 1 dose, Intra-Op 1400 (Given - Provid er: Margarita Will RT (R)) PRN Medication Order 02/03/2024 02/04/2024 02/05/2024 buffered lidocaine 1 % inj (COMPLETED) Intradermal, ONCE PRN INTRA PROCEDURE, Starting on Mon02/05/24 at 1318, Until Mon02/05/24 at 1318, Intra-Op 1318 (Given - Provid er: Moses Winter MD - Comment: right flanktotal used during IR Procedure) midazolam (Versed) 2 MG/2ML inj (COMPLETED) ONCE PRN INTRA PROCEDURE, Starting on Mon02/05/24 at 1258, Until Mon02/05/24 at 1307, Intra-Op 1258 (Given - Provid er: Mel Baltazar RN)1307 (Given - Provider: Mel Baltazar RN) documented in this encounter Advance Directives * Full Code (Latest Code Status on File) Date Activated Date Inactivated Comments 04/15/2015 4:40 PM 04/16/2015 5:24 PM This order r eflects the patients wishes and were consensually agreed upon. Care Teams Dinkey Dispatcher Relationship Specialty Start Date End Date Edgar Gibbs MD [address] [place] [address] [place] [address] PCP - General Family Medicine 07/03/20 documented as of this encounter
--- OUTSIDE RECORDS SUMMARY | 2024-03-13 16:17 | External Medical Summary | Summary of Care ---
Author Name Unknown Organization [facility] Address [address] [facility] [address] Phone [phone] Care Team Providers Care Staff Consultant Name Role Phone Edgar Gibbs MD Primary Care P rovider Encounter Details Date Type Department Care Team (Late st Contact Info) Description 01/18/2024 Result Scan Unspecified Department Pako Ramos MD [address] [facility] [address] <No scans attached> Allergies Active Allergy Reactions Criticality Noted Date Comments Latex 07/19/2019 Pantoprazole Sodium Edema face/lips/tongue High 04/0 02/2014 documented as of this encounter (statuses as of 01/22/2024) Medications Cholecalciferol 2000 units Capsule Take 1 [...] group C, by GOLD 2017 classification ([facility]) Inhale 2 Puffs by mouth in the morning and 2 Puffs before bedtime. 10.7 g 5 4 Active Gill-Farzana Rx 1 MG Oral Tablet TAKE ONE TABLET BY MOUTH ONCE DAILY 90 Tablet 3 4 Active documented as of this encounter (statuses as of 01/22/2024) Active Problems Problem Noted Date Diagnosed Date [...] as of this encounter (statuses as of 01/22/2024) Resolved Problems Problem Noted Date Diagnosed Date [...] as of this encounter (statuses as of 01/22/2024) Immunizations Name Administration Dates Next Due COVID-19 mRNA, LNP-s, No Pre serve, 2-Dose Series ([employer]) 01/19/2021,06/10/2020,05/20/2020 HEP B - Hepatitis B (Dialysis/Immumocomp Pt) 12/20/2018,07/21/2018,06/19/2018 PPD 05/03/2018 Pneumococcal Conjugate Vacci ne, 20-valent ([id number]) 03/16/2022 Pneumococcal Polysaccharide PPV23 (Pneumovax) 12/28/2017 Seasonal [...] No 06/16/2023 Does the household have a [facility] source [facility] income? (Household - for [...] Care Team (Late st Contact Info) Description 02/05/2024 12:00 PM EST Appointment Interventional [place]iology [facility] [address] [place] [address] 02/27/2024 1:00 PM EST Cardiac Studies Cardiac Studies, [address] [place] [address] 03/20/2024 8:30 AM EST Laboratory [facility] [phone] [address] 03/27/2024 1:50 PM EST Office Visit Family [address] [phone] Edgar Gibbs MD [address] [place] [address] 04/03/2024 9:30 AM EST Imaging Radiology [address] [place] [address] 04/10/2024 9:15 AM EST Office Visit Urology, [facility] [address] [facility] [place] [address] Travon Canales MD [address] [place] [address] 04/12/2024 9:30 AM EST Office Visit Cardiology, [facility] [address] [facility] [place] [address] Gris Alford CRNP 132 [facility] [place] [address] 05/01/2024 12:00 PM EST Office Visit Pulmonary Medicine, [address] [place] [address] Tino Stapleton MD [address] [place] [address] Health Maintenance Due Date Last Done Comments [...] Date/Time Associated Diagnosis Comments OUTSIDE LAB RESULTS 01/18/2024 documented in this encounter Results * OUTSIDE LAB RESULTS (01/18/2024) 01/18/2024 Pako Ramos MD LABORATORY Final Result documented in this encounter Advance Directives * Full Code (Latest Code Status on File) Date Activated Date Inactivated Comments 04/15/2015 4:40 PM 04/16/2015 5:24 PM This order r eflects the patients wishes and were consensually agreed upon. Care Teams Staff Consultant Relationship Specialty Start Date End Date Edgar Gibbs MD [address] [place] [id number] PCP - General Family Medicine 07/03/20 documented as of this encounter
--- OUTSIDE RECORDS SUMMARY | 2024-03-13 16:17 | External Medical Summary | Summary of Care ---
Author Name Unknown Organization [facility] Address [address] [facility] [address] Phone [phone] Care Team Providers Care Mobile Lounge Driver Or Operator Name Role Phone Edgar Gibbs MD Primary Care P rovider Encounter Details Date Type Department Care Team (Late st Contact Info) Description 12/21/2023 Result Scan Unspecified Department Pako Ramos MD [address] [facility] [address] <No scans attached> Allergies Active Allergy Reactions Criticality Noted Date Comments Latex 07/19/2019 Pantoprazole Sodium Edema face/lips/tongue High 04/0 02/2014 documented as of this encounter (statuses as of 12/25/2023) Medications Medication Sig Dispensed Refills Start Date [...] Acetate (3 Month) 22.5 MG Subcutaneous Kit (Avacen) Inject 22.5 mg under the skin. 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 90 Tablet 3 09/28/2023 Active LORazepam 0.5 MG Oral Tablet (Ativan)Indications:Pa elicia attack as reaction to stress Take 1 Tablet by mouth every 8 hours as needed for Anxiety. 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 10.7 g 5 12/06/2023 Active Gill-Farzana Rx 1 MG Oral Tablet TAKE ONE TABLET BY MOUTH ONCE DAILY 90 Tablet 3 12/18/2023 Active documented as of this encounter (statuses as of 12/25/2023) Active Problems Problem Noted Date Diagnosed Date [...] as of this encounter (statuses as of 12/25/2023) Resolved Problems Problem Noted Date Diagnosed Date [...] as of this encounter (statuses as of 12/25/2023) Immunizations Name Administration Dates Next Due COVID-19 mRNA, LNP-s, No Pre serve, 2-Dose Series ([employer]) 01/19/2021,06/10/2020,05/20/2020 HEP B - Hepatitis B (Dialysis/Immumocomp Pt) 12/20/2018,07/21/2018,06/19/2018 PPD 05/03/2018 Pneumococcal Conjugate Vacci ne, 20-valent ([id number]) 03/16/2022 Pneumococcal Polysaccharide PPV23 (Pneumovax) 12/28/2017 Seasonal [...] 11:30 AM EST Hospital Encounter Interventional Radiology [facility], [facility] 1st Floor [address] [place] [address] 02/27/2024 1:00 PM EST Cardiac Studies Cardiac Studies, [address] [place] [address] 03/20/2024 8:30 AM EST Laboratory Laboratory Patient Service [address] [phone] [address] 03/27/2024 1:50 PM EST Office Visit Family [address] [phone] Edgar Gibbs MD [address] [place] [address] 04/03/2024 9:30 AM EST Imaging Radiology [address] [place] [address] 04/10/2024 9:15 AM EST Office Visit Urology, [address] [place] [address] Travon Canales MD [address] [place] [address] [address] 04/12/2024 9:30 AM EST Office Visit Cardiology, [address] [place] [address] Gris Alford CRNP [address] [place] [address] 05/01/2024 12:00 PM EST Office Visit Pulmonary Medicine, [facility] [address] [place] [address] Tino Stapleton MD [address] [facility] [place] [address] Health Maintenance Due Date Last Done Comments [...] Date/Time Associated Diagnosis Comments OUTSIDE LAB RESULTS 12/21/2023 documented in this encounter Results * OUTSIDE LAB RESULTS (12/21/2023) 12/21/2023 Pako Ramos MD LABORATORY documented in this encounter Advance Directives * Full Code (Latest Code Status on File) Date Activated Date Inactivated Comments 04/15/2015 4:40 PM 04/16/2015 5:24 PM This order r eflects the patients wishes and were consensually agreed upon. Care Teams Mobile Lounge Driver Or Operator Relationship Specialty Start Date End Date Edgar Gibbs MD [address] [place] [id number] PCP - General Family Medicine 07/03/20 documented as of this encounter
--- OUTSIDE RECORDS SUMMARY | 2024-03-13 16:17 | External Medical Summary | Summary of Care ---
Author Name Unknown Organization [facility] Address [address] [facility] [address] Phone [phone] Care Team Providers Care Instructor Ballroom Dancing Name Role Phone Edgar Gibbs MD Primary Care P rovider Encounter Details Date Type Department Care Team (Late st Contact Info) Description 01/30/2024 Result Scan Unspecified Department Pako Ramos MD [address] [facility] [address] <No scans attached> Allergies Active Allergy Reactions Criticality Noted Date Comments Latex 07/19/2019 Pantoprazole Sodium Edema face/lips/tongue High 04/0 02/2014 documented as of this encounter (statuses as of 02/05/2024) Medications Cholecalciferol 2000 units Capsule Take 1 Capsule by mouth in the morning. 30 Cap 3 03/28/19 18 Suspended Calcium Acetate, Phos Binder, 667 MG TABSIndications:Ki dney disease, chronic, stage V (GFR under 15 ml/min) ([facility]) take 2 pills 3 x daily 180 Tab 11 10/27/19 19 Suspended Sodium Chloride Flush (NORMAL SALINE FLUSH) 0.9 % SOLN injection FLUSH ONCE DAILY WITH 10ml 300 mL 1 03/12/19 20 Suspended Leuprolide Acetate (3 Month) 22.5 MG Subcutaneous Kit (Eligard) Inject 22.5 mg under the skin. Every 3 months 11/19/19 21 Suspended Ventolin HFA 108 (90 Base) MCG/ACT Inhalation Aerosol SolutionIndication s:COPD exacerbation (HCC) INHALE TWO PUFFS BY MOUTH EVERY 4 HOURS NEEDED FOR COUGH, SHORTNESS OF BREATH, OR WHEEZING 18 g 5 01/21/20 23 Suspended Torsemide 100 MG Oral Tablet (Demadex) Take 1 Tablet by mouth in the morning. 90 Tablet 3 05/11/19 24 Suspended Citalopram Hydrobromide 10 MG Oral Tablet (CeleXA) Take 1 Tablet by mouth every night at bedtime. 30 Tablet 5 05/29/19 24 Suspended amLODIPine Besylate 5 MG Oral Tablet (Norvasc)Indicatio ns: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 (HCC) Take 1 Tablet by mouth in the morning. 90 Tablet 3 09/28/19 24 Suspended LORazepam 0.5 MG Oral Tablet (Ativan)Indication s:Panic attack as reaction to stress Take 1 Tablet by mouth every 8 hours as needed for Anxiety. 30 Tablet 11/16/19 24 Suspended Budeson-Glycopyrro l-Formoterol 160-9-4.8 MCG/ACT Inhalation AerosolIndications :COPD, group C, by GOLD 2017 classification ([facility]) Inhale 2 Puffs by mouth in the morning and 2 Puffs before bedtime. 10.7 g 5 12/06/19 24 Suspended Gill-Farzana Rx 1 MG Oral Tablet TAKE ONE TABLET BY MOUTH ONCE DAILY 90 Tablet 3 12/18/19 24 Suspended documented as of this encounter (statuses as of 02/05/2024) Active Problems Problem Noted Date Diagnosed Date [...] as of this encounter (statuses as of 02/05/2024) Resolved Problems Problem Noted Date Diagnosed Date [...] as of this encounter (statuses as of 02/05/2024) Immunizations Name Administration Dates Next Due COVID-19 mRNA, LNP-s, No Pre serve, 2-Dose Series ([employer]) 01/19/2021,06/10/2020,05/20/2020 HEP B - Hepatitis B (Dialysis/Immumocomp Pt) 12/20/2018,07/21/2018,06/19/2018 PPD 05/03/2018 Pneumococcal Conjugate Vacci ne, 20-valent ([id number]) 03/16/2022 Pneumococcal Polysaccharide PPV23 (Pneumovax) 12/28/2017 Seasonal [...] 06/16/2023 Does the household have a [facility] source of income? (Household - for [...] 1:00 PM EST Cardiac Studies Cardiac Studies, [facility] [place] [address] 03/20/2024 8:30 AM EST Laboratory [facility] [phone] [address] 03/27/2024 1:50 PM EST Office Visit [address] [phone] Edgar Gibbs MD [address] [place] [address] 04/03/2024 9:30 AM EST Imaging Radiology [address] [place] [address] 04/10/2024 9:15 AM EST Office Visit Urology, [address] [place] [address] Travon Canales MD [address] [place] [address] 04/12/2024 9:30 AM EST Office Visit Cardiology, [facility] [address] [facility] [place] [address] Gris Alford CRNP 132 [facility] [place] [address] 05/01/2024 12:00 PM EST Office Visit Pulmonary Medicine, [facility] [address] [facility] [place] [address] Tino Stapleton MD [address] [place] [phone] Health Maintenance Due Date Last Done Comments [...] Date/Time Associated Diagnosis Comments OUTSIDE LAB RESULTS 01/30/2024 documented in this encounter Results * OUTSIDE LAB RESULTS (01/30/2024) 01/30/2024 Pako Ramos MD LABORATORY Final Result documented in this encounter Advance Directives * Full Code (Latest Code Status on File) Date Activated Date Inactivated Comments 04/15/2015 4:40 PM 04/16/2015 5:24 PM This order r eflects the patients wishes and were consensually agreed upon. Care Teams Instructor Ballroom Dancing Relationship Specialty Start Date End Date Edgar Gibbs MD [address] [place] [address] [place] [address] PCP - General Family Medicine 07/03/20 documented as of this encounter
--- OUTSIDE RECORDS SUMMARY | 2024-03-13 16:17 | External Medical Summary | Summary of Care ---
Author Name Unknown Organization [facility] Address [address] [facility] [place] [address] Phone [phone] Care Team Providers Care Medical Reception Specialist Name Role Phone Edgar Gibbs MD Primary Care P rovider Encounter Details Date Type Department Care Team (Late st Contact Info) Description 12/26/2023 Result Scan Unspecified Department <No scans attached> Allergies Active Allergy Reactions Criticality Noted Date Comments Latex 07/19/2019 Pantoprazole Sodium Edema face/lips/tongue High 04/0 02/2014 documented as of this encounter (statuses as of 01/01/2024) Medications Medication Sig Dispensed Refills Start Date [...] Base) MCG/ACT Inhalation Aerosol SolutionIndications:CO PD exacerbation ([facility]) INHALE TWO PUFFS BY MOUTH EVERY [...] needed for Anxiety. 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 10.7 g 5 12/06/2023 Active Gill-Farzana Rx 1 MG Oral Tablet TAKE ONE TABLET BY MOUTH ONCE DAILY 90 Tablet 3 12/18/2023 Active documented as of this encounter (statuses as of 01/01/2024) Active Problems Problem Noted Date Diagnosed Date [...] as of this encounter (statuses as of 01/01/2024) Resolved Problems Problem Noted Date Diagnosed Date [...] as of this encounter (statuses as of 01/01/2024) Immunizations Name Administration Dates Next Due COVID-19 mRNA, LNP-s, No Pre serve, 2-Dose Series ([employer]) 01/19/2021,06/10/2020,05/20/2020 HEP B - Hepatitis B (Dialysis/Immumocomp Pt) 12/20/2018,07/21/2018,06/19/2018 PPD 05/03/2018 Pneumococcal Conjugate Vacci ne, 20-valent ([id number]) 03/16/2022 Pneumococcal Polysaccharide PPV23 (Pneumovax) 12/28/2017 Seasonal [...] No 06/16/2023 Does the household have a [facility] source of income? (Household - for [...] 11:30 AM EST Hospital Encounter [place] [facility] 1st Floor [address] [place] [address] 02/27/2024 1:00 PM EST Cardiac Studies Cardiac Studies, [facility] 132 [facility] [place] [address] 03/20/2024 8:30 AM EST Laboratory Laboratory Patient Service [address] [phone] [address] 03/27/2024 1:50 PM EST Office Visit [address] [phone] Edgar Gibbs MD [address] [place] [address] 04/03/2024 9:30 AM EST Imaging Radiology [address] [facility] [place] [address] 04/10/2024 9:15 AM EST Office Visit Urology, [facility] [address] [facility] [place] [address] Travon Canales MD [address] [place] [address] [address] 04/12/2024 9:30 AM EST Office Visit Cardiology, [facility] [address] [facility] [place] [address] Gris Alford CRNP 132 [facility] [place] [address] 05/01/2024 12:00 PM EST Office Visit Pulmonary Medicine, [facility] [address] [place] [address] Tino Stapleton MD [address] [place] [address] Health Maintenance Due Date Last Done Comments [...] Date/Time Associated Diagnosis Comments OUTSIDE LAB RESULTS 12/26/2023 documented in this encounter Results * OUTSIDE LAB RESULTS (12/26/2023) 12/26/2023 No Physician Data Unknown LABORATORY documented in this encounter Advance Directives * Full Code (Latest Code Status on File) Date Activated Date Inactivated Comments 04/15/2015 4:40 PM 04/16/2015 5:24 PM This order r eflects the patients wishes and were consensually agreed upon. Care Teams Medical Reception Specialist Relationship Specialty Start Date End Date Edgar Gibbs MD [address] [place] [address] PCP - General Family Medicine 07/03/20 documented as of this encounter
--- OUTSIDE RECORDS SUMMARY | 2024-03-13 16:17 | External Medical Summary | Summary of Care ---
Author Name Unknown Organization [facility] Address [address] [facility] [place] [address] Phone [phone] Care Team Providers Care Retirement Plan Specialist Name Role Phone Edgar Gibbs MD Primary Care P rovider Encounter Details Date Type Department Care Team (Late st Contact Info) Description 01/09/2024 Result Scan Unspecified Department <No scans attached> Allergies Active Allergy Reactions Criticality Noted Date Comments Latex 07/19/2019 Pantoprazole Sodium Edema face/lips/tongue High 04/0 02/2014 documented as of this encounter (statuses as of 01/15/2024) Medications Cholecalciferol 2000 units Capsule Take 1 [...] Base) MCG/ACT Inhalation Aerosol SolutionIndication s:COPD exacerbation ([facility]) INHALE TWO PUFFS [...] :COPD, group C, by GOLD 2017 classification ([facility]) Inhale 2 Puffs by mouth in the morning and 2 Puffs before bedtime. 10.7 g 5 4 Active Gill-Farzana Rx 1 MG Oral Tablet TAKE ONE TABLET BY MOUTH ONCE DAILY 90 Tablet 3 4 Active documented as of this encounter (statuses as of 01/15/2024) Active Problems Problem Noted Date Diagnosed Date [...] as of this encounter (statuses as of 01/15/2024) Resolved Problems Problem Noted Date Diagnosed Date [...] as of this encounter (statuses as of 01/15/2024) Immunizations Name Administration Dates Next Due COVID-19 mRNA, LNP-s, No Pre serve, 2-Dose Series ([employer]) 01/19/2021,06/10/2020,05/20/2020 HEP B - Hepatitis B (Dialysis/Immumocomp Pt) 12/20/2018,07/21/2018,06/19/2018 PPD 05/03/2018 Pneumococcal Conjugate Vacci ne, 20-valent ([id number]) 03/16/2022 Pneumococcal Polysaccharide PPV23 (Pneumovax) 12/28/2017 Seasonal [...] No 06/16/2023 Does the household have a [facility] source of income? (Household - for ages [...] Care Team (Late st Contact Info) Description 01/19/2024 11:00 AM EST Appointment Interventional Radiology [facility], [facility] 1st [facility] [address] [place] [address] 02/27/2024 1:00 PM EST Cardiac Studies Cardiac Studies, [facility] [address] [place] [address] 03/20/2024 8:30 AM EST [facility] [address] [place] [phone] [address] 03/27/2024 1:50 PM EST Office Visit Family [address] [phone] Edgar Gibbs MD [address] [place] [address] 04/03/2024 9:30 AM EST Imaging Radiology [address] 132 [place] [address] 04/10/2024 9:15 AM EST Office Visit Urology, [facility] 132 [facility] [place] [address] Travon Canales MD [address] [place] [phone] 04/12/2024 9:30 AM EST Office Visit Cardiology, [facility] 132 [facility] [place] [address] Gris Alford CRNP 132 [facility] [place] [address] 05/01/2024 12:00 PM EST Office Visit Pulmonary Medicine, [facility] 132 [facility] [place] [address] Tino Stapleton MD [address] [place] [phone] Health Maintenance Due Date Last Done Comments [...] Date/Time Associated Diagnosis Comments OUTSIDE LAB RESULTS 01/09/2024 documented in this encounter Results * OUTSIDE LAB RESULTS (01/09/2024) 01/09/2024 us No Physician Data Unknown LABORATORY Final Result documented in this encounter Advance Directives * Full Code (Latest Code Status on File) Date Activated Date Inactivated Comments 04/15/2015 4:40 PM 04/16/2015 5:24 PM This order r eflects the patients wishes and were consensually agreed upon. Care Teams Retirement Plan Specialist Relationship Specialty Start Date End Date Edgar Gibbs MD [address] [place] [id number] PCP - General Family Medicine 07/03/20 documented as of this encounter
--- OUTSIDE RECORDS SUMMARY | 2024-03-13 16:18 | External Medical Summary | Summary of Care ---
Author Name Unknown Organization [facility] Address [address] [facility] [place] [address] Phone [phone] Care Team Providers Care Cnc Milling Machine Operator Name Role Phone Edgar Gibbs MD Primary Care P rovider Reason for Visit * Reason Comments Cold Symptoms Encounter Details Date Type Department Care Team (Latest Contact Info) Description 11/17/2023 3:45 PM EDT Convenient Care Visit [facility] [address] [place] [address] Randall Benjamin PA-C [address] [place] [address] Chest congestion* Allergies Active Allergy Reactions Criticality Noted Date Comments Latex 07/19/2019 Pantoprazole Sodium Edema face/lips/tongue High 04/0 02/2014 documented as of this encounter (statuses as of 11/17/2023) Medications Medication Sig Dispensed Refills Start Date End Date Status Cholecalciferol 2000 units Capsule Take 1 Capsule by mouth in the morning. 30 Cap 3 03/28/2017 Active Calcium Acetate, Phos Binder, 667 MG TABSIndications:Kidn ey disease, chronic, stage V (GFR under 15 ml/min) ([facility]) take 2 pills 3 x daily 180 Tab 11 10/26/2018 Active Sodium Chloride Flush (NORMAL SALINE FLUSH) 0.9 % SOLN injection FLUSH ONCE DAILY WITH 10ml 300 mL 1 03/12/2019 Active Leuprolide Acetate (3 Month) 22.5 MG Subcutaneous Kit (Fare Motion) Inject 22.5 mg under the skin. Every 3 months 11/18/2020 Active Incruse Ellipta 62.5 MCG/ACT Inhalation Aerosol Powder Breath Activated (umeclidinium [place])Indications: Chronic obstructive pulmonary disease, unspecified COPD type (HCC) Inhale 1 Puff by mouth in the morning. 30 Each 11 03/02/2022 Active Additional Information Patient not taking.Reported on 11/17/2023 Nephro-Farzana 0.8 MG Oral Tablet TAKE ONE [...] 09/28/2023 Active LORazepam 0.5 MG Oral Tablet (Ativan)Indications: Panic attack as reaction to stress Take 1 Tablet by mouth every 8 hours as needed for Anxiety. 30 Tablet 11/16/2023 Active Hospital, Clinic, or Other Facility Administered Medication Ordered Dose Route Frequency Start Date End Date Status albuterol-ipratropium (Duoneb) inhalation solution 3 mLIndications:Chest congestion 3 mL NEBULIZER ONCE 11/17/2023 11/17/2023 Ended documented as of this encounter (statuses as of 11/17/2023) Active Problems Problem Noted Date Diagnosed Date [...] as of this encounter (statuses as of 11/17/2023) Resolved Problems Problem Noted Date Diagnosed Date [...] as of this encounter (statuses as of 11/17/2023) Immunizations Name Administration Dates Next Due COVID-19 mRNA, LNP-s, No Pre serve, 2-Dose Series (Pfizer) 01/19/2021,06/10/2020,05/20/2020 HEP B - Hepatitis B (Dialysis/Immumocomp Pt) 12/20/2018,07/21/2018,06/19/2018 PPD 05/03/2018 Pneumococcal Conjugate Vacci ne, 20-valent ([id number]) 03/16/2022 Pneumococcal Polysaccharide PPV23 (Pneumovax) 12/28/2017 Seasonal [...] No 06/16/2023 Does the household have a [facility] source of income? (Household - [...] Sign Reading Time Taken Comments Blood Pressure 144/60 11/17/2023 2:44 PM EDT Pulse 97 11/17/2023 2:44 PM EDT Temperature 37.2 C (99 F) 11/17/2023 2:44 PM EDT Respiratory Rate 20 11/17/2023 2:44 PM EDT Oxygen Saturation 93% 11/17/2023 2:44 PM EDT Inhaled Oxygen Concentration - - Weight 57.4 kg (126 lb 9.6 oz) 11/17/2023 2:44 P M EDT Height 162.6 cm (5' 4") 11/17/2023 2:44 PM EDT Body Mass Index 21.73 11/17/2023 2:44 PM EDT documented in this encounter Functional [...] as of this encounter Progress Notes * Shala Garcia CMA - 11/17/2023 3:13 PM EDT Administrations This Visit albuterol-ipratropium (Duoneb) inhalation solution 3 mL Admin Date 11/17/2023 Action Given Dose 3 mL Route Nebulizer Documented By Shala Garcia CMA ' * Randall Benjamin PA-C - 11/17/2023 2:54 PM EDT Convenient Care Basic Exam Matthew Rowe is a 78 year old year old male who presents for evaluation of chest congestion, feeling unwell. He missed dialysis on Monday because of feeling unwell, and went yesterday and today.While at dialysis, they said they had concerns that he could be developing an infection based off the way he was sounding, even after removing fluid during dialysis. Some shortness of breath with exertion. Does where O2 24/7, 2 L at rest and 3 L when walking. Typically satting from 92-97%. Review of Systems Constitutional: Negative. HENT: Positive for congestion and sinus pressure. Respiratory: Positive for chest tightness and shortness of breath. Neurological: Negative. PAST MEDICAL HISTORY: Past Medical History: Diagnosis Date Hypertension, essential INFORMATION 03/2014 [facility]- kidney failure Pleural effusion Use of leuprolide acetate (Lupron) Past Surgical History: Procedure Laterality Date CYSTOSCOPY 07-08-2014 IR DRAINAGE CATHETER CHANGE Right 06/10/2015 CHANGE OF PERCUTANEOUS TUBE OR DRAINAGE CATHETER WITH XRAY AND CONTRAST MEDIUM performed by Gera Mcdaniel MD at RADIOLOGY [facility] IR DRAINAGE CATHETER CHANGE Right 08/24/2016 CHANGE OF PERCUTANEOUS TUBE OR DRAINAGE CATHETER WITH XRAY AND CONTRAST MEDIUM performed by Gera Mcdaniel MD at RADIOLOGY [facility] IR GENITORINARY NEPHRO/CYSTO/URETERAL 01/18/2019 IR GENITORINARY NEPHRO/CYSTO/URETERAL [...] IR GENITORINARY NEPHRO/CYSTO/URETERAL 10/08/2023 NONE Social History Tobacco Use Smoking status: Every Day Current packs/day: 0.25 Average packs/day: 0.3 packs/day for 60.0 years (15.0 ttl pk-yrs) Types: Cigarettes Smokeless tobacco: Never Tobacco comments: 5 cpd smoker 06/14/23. 4-5 cpd smoker. 11/01/23. Substance Use Topics Alcohol use: No Vaping/E-Cigarette Use Vaping/E-Cigarette Use Never User Vaping/E-Cigarette Substances Vaping/E-Cigarette Devices Patient Active Problem List Diagnosis Chronic anemia HTN, goal below 140/90 Kidney disease, chronic, stage V (GFR under 15 ml/min) ([facility]) Prostate cancer ([facility]) Hydronephrosis, right Dialysis patient ([facility]) 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 ([facility]) DNR (do not resuscitate) ESRD (end stage renal disease) on dialysis ([facility]) Tobacco user Bladder stones Pleural effusion, right COPD, group C, by GOLD 2017 classification ([facility]) Nonrheumatic aortic valve stenosis Supplemental oxygen dependent Review of patient's allergies indicates: Allergen Reactions [...] mouth in the morning. 90 Tablet 3 LORazepam 0.5 MG Oral Tablet (Ativan) Take 1 Tablet by mouth every 8 hours as needed for Anxiety. 30 Tablet 0 Leuprolide Acetate (3 Month) 22.5 MG Subcutaneous Kit (Eligard) Inject 22.5 mg under the skin. Every 3 months Incruse Ellipta 62.5 MCG/ACT Inhalation Aerosol Powder Breath Activated (umeclidinium [place]) Inhale 1 Puff by mouth in the morning. (Patient not taking: Reported on 11/17/2023) 30 Each 11 No current facility-administered medications for this visit. Nursing Notes and Vital Signs reviewed. BP 144/60 | Pulse 97 | Temp 37.2 C (99 F) (Tympanic) | Resp 20 | Ht 1.626 m (5' 4") | Wt 57.4 kg (126 lb 9.6 oz) | SpO2 93% | BMI 21.73 kg/m | BSA 1.61 m Physical Exam Vitals and nursing note reviewed. Constitutional: Appearance: Normal appearance. HENT: Head: Normocephalic. Nose: Nose normal. Mouth/Throat: Mouth: Mucous membranes are moist. Eyes: Extraocular Movements: Extraocular movements intact. Conjunctiva/sclera: Conjunctivae normal. Cardiovascular: Rate and Rhythm: Normal rate and regular rhythm. Pulmonary: Effort: Pulmonary effort is normal. Breath sounds: Wheezing and rhonchi present. Abdominal: General: Bowel sounds are normal. Palpations: Abdomen is soft. Musculoskeletal: General: Normal range of motion. Cervical back: Normal range of motion and neck supple. Skin: General: Skin is warm. Neurological: General: No focal deficit present. Mental Status: He is alert and oriented to person, place, and time. Psychiatric: Mood and Affect: Mood normal. ASSESSMENT: Bronchitis vs pneumonia - XR CHEST 2 VIEWS showing old consolidation from August - albuterol-ipratropium (Duoneb) inhalation solution 3 mL - O2 sats not improving--> 89-91% on 2-3L NC - Prefers [facility] [place] Was the System Triage Office contacted? Yes, [facility] Disposition: ED Randall Benjamin PA-C [address] [address] documented in this encounter Nursing Notes * Rupal Canales LPN - 11/17/2023 2:43 PM EDT Matthew Rowe is a 78 year old male who presents to walk-in clinic today complaining of Chief Complaint Patient presents with Cold Symptoms Brief history:cold sx Onset/duration 4 days. Tried tylenol Patient is accompanied by for today's visit. documented in this encounter Plan of Treatment Upcoming Encounters Date Type Department Care Team (Late st Contact Info) Description 12/13/2023 2:00 PM EDT Office Visit Cardiology, [facility] [address] [place] [address] Gris Alford CRNP 132 [facility] [place] [address] 01/10/2024 11:00 AM EST Appointment Interventional Radiology [facility], [facility] 1st Floor [address] [place] [address] 02/26/2024 9:30 AM EST Cardiac Studies Cardiac Studies, [facility] [address] [place] [address] 03/20/2024 8:30 AM EST Laboratory [facility] [phone] [address] 03/27/2024 1:50 PM EST Office Visit [address] [phone] Edgar Gibbs MD [address] [place] [address] 04/03/2024 9:30 AM EST Imaging Radiology [address] [place] [address] 04/10/2024 9:15 AM EST Office Visit Urology, [facility] [address] [facility] [place] [address] Travon Canales MD [address] [place] [address] 05/01/2024 12:00 PM EST Office Visit Pulmonary Medicine, [facility] [address] [facility] [place] [address] Tino Stapleton MD [address] [place] [phone] Health Maintenance Due Date Last Done Comments Adult Wellness Visit 05/18/2009 *COPD SEVERITY VERIFIED BY PFT 03/05/2022 COVID-19 Vaccine ( season) 2023 01/19/2021, 06/10/2020, 05/20/2020 Influenza Vaccine (FLU shot) (#1) 2023 11/15/2022, 12/04/2021, 12/22/2020, Additional history exists Depression Screening 06/15/2024 06/16/2023 DISCUSS TOBACCO CESSATION (REFER TO SMARTSET #3291) 09/24/2024 09/25/2023 (Discussed), 06/03/2022 O2 ASSESSMENT COMPLETED IN PAST YEAR FOR COPD 11/16/2024 11/17/2023 DTap/Tdap Vaccines (2 - Td or Tdap) [...] Priority Date/Time Associated Diagnosis Comments XR CHEST 2 VIEWS STAT 11/17/2023 3:13 PM EDT Chest congestion documented in this encounter Results * XR CHEST 2 VIEWS (11/17/2023 3:13 PM EDT) Anatomical Region Laterality Modality Chest Digital Radiogra phy 11/17/2023 3:38 PM EDT Impressions 11/17/2023 3:36 PM EDT IMPRESSION 1. Stable appearing pleural based density in the periphery of the right lower lobe Narrative 11/17/2023 3:36 PM EDT EXAM XR CHEST 2 VIEWS-11/17/2023 3:13 pm HISTORY rhonchi on exam COMPARISON Chest CT 09/27/2023 TECHNIQUE PA and lateral films of the chest were obtained FINDINGS The cardiac silhouette is prominent. The aorta is elongated and calcified. There is increased interstitial markings in vascularity in the lung mota. There is pleural based spiculated density in the periphery of the right lower lobe, may represent developing round atelectasis/scar correlates with pleural based density noted on prior CT scan. There are no acute infiltrates or effusions otherwise present. Procedure Note Mayte Dotson MD - 11/17/2023 EXAM XR CHEST 2 VIEWS-11/17/2023 3:13 pm HISTORY rhonchi on exam COMPARISON Chest CT 09/27/2023 TECHNIQUE PA and lateral films of the chest were obtained FINDINGS The cardiac silhouette is prominent. The aorta is elongated andcalcified. There is increased interstitial markings in vascularity in thelung mota. There is pleural based spiculated density in the peripheryof the right lower lobe, may represent developing round atelectasis/scarcorrelates with pleural based density noted on prior CT scan. There areno acute infiltrates or effusions otherwise present. IMPRESSION IMPRESSION 1. Stable appearing pleural based density in the periphery of the rightlower lobe Randall Benjamin PA-C RADIOLOGY ([facility]) documented in this encounter Visit Diagnoses Diagnosis Chest congestion- Primary Other symptoms involving respiratory system and chest documented in this encounter Administered Medications Inactive Administered Medications - up to 3 most recent administrations Medication Order MAR Action Action Date Dose Rate Site albuterol-ipratropium (Duoneb) inhalation solution 3 mL 3 mL, Nebulizer, ONCE, On Mon11/17/23 at 1545, For 1 dose, 3 mL = 0.5 mg ipratropium/ 2.5 mg albuterol Given 11/17/2023 3:13 PM EDT 3 mL documented in this encounter Advance Directives * Full Code (Latest Code Status on File) Date Activated Date Inactivated Comments 04/15/2015 4:40 PM 04/16/2015 5:24 PM This order r eflects the patients wishes and were consensually agreed upon. Care Teams Cnc Milling Machine Operator Relationship Specialty Start Date End Date Edgra Gibbs MD [address] [place] [address] [phone] PCP - General Family Medicine 07/03/20 documented as of this encounter
--- OUTSIDE RECORDS SUMMARY | 2024-03-13 16:18 | External Medical Summary | Summary of Care ---
Author Name Unknown Organization [facility] Address [address] [place] [address] Phone [phone] Care Team Providers Care Sheet Manager Name Role Phone Edgar Gibbs MD Primary Care P rovider Reason for Visit * Reason Comments eRx-Medication Refill Encounter Details Date Type Department Care Team ([facility] st Contact Info) Description [facility] [address] [place] [address] Edgar Gibbs MD [address] [place] [phone] Allergies Active Allergy Reactions Criticality Noted Date Comments Latex 07/19/2019 Pantoprazole Sodium Edema face/lips/tongue High 04/0 02/2014 documented as of this encounter (statuses as of 12/18/2023) Medications Medication Sig Dispensed Refills Start Date [...] Active amLODIPine Besylate 5 MG Oral Tablet (Norvasc)Indication s: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 (HCC) Take 1 Tablet by mouth in the morning. 90 Tablet 3 09/28/2023 Active LORazepam 0.5 MG Oral Tablet (Ativan)Indications :Panic attack as reaction to stress Take 1 Tablet by mouth every 8 hours as needed for Anxiety. 30 Tablet 11/16/2023 Active Budeson-Glycopyrrol -Formoterol 160-9-4.8 MCG/ACT Inhalation AerosolIndications: COPD, group C, by GOLD 2017 classification (HCC) Inhale 2 Puffs by mouth in the morning and 2 Puffs before bedtime. 10.7 g 5 12/06/2023 Active Gill-Farzana Rx 1 MG Oral Tablet TAKE ONE TABLET BY MOUTH ONCE DAILY 90 Tablet 3 12/18/2023 Active Nephro-Farzana 0.8 MG Oral Tablet TAKE ONE TABLET BY MOUTH ONCE DAILY 90 Tablet 3 11/22/2022 Discontinued documented as of this encounter (statuses as of 12/18/2023) Active Problems Problem Noted Date Diagnosed Date [...] as of this encounter (statuses as of 12/18/2023) Resolved Problems Problem Noted Date Diagnosed Date [...] as of this encounter (statuses as of 12/18/2023) Immunizations Name Administration Dates Next Due COVID-19 mRNA, LNP-s, No Pre serve, 2-Dose Series (Pfizer) 01/19/2021,06/10/2020,05/20/2020 HEP B - Hepatitis B (Dialysis/Immumocomp Pt) 12/20/2018,07/21/2018,06/19/2018 PPD 05/03/2018 Pneumococcal Conjugate Vacci ne, 20-valent ([id number]) 03/16/2022 Pneumococcal Polysaccharide PPV23 (Pneumovax) 12/28/2017 Seasonal [...] encounter Miscellaneous Notes * Telephone Encounter - Naty Rosenberg MD - 12/18/2023 5:00 PM EDTSigned Prescriptions: Disp Refills Gill-Farzana Rx 1 MG Oral Tablet 90 Tab*3 Sig: TAKE ONE TABLET BY MOUTH ONCE DAILY Authorizing Provider: NATY ROSENBERG * Telephone Encounter - Zofia Layton LPN - 12/18/2023 4:55 PM EDTPending Prescriptions: Disp Refills Gill-Farzana Rx 1 MG Oral Tablet [Pharmacy Me*90 Tab*3 Sig: TAKE ONE TABLET BY MOUTH ONCE DAILY * Telephone Encounter - Zofia Layton LPN - 12/18/2023 4:53 PM EDT Please review and approve medication refill request. documented in this encounter Plan of Treatment Upcoming Encounters Date Type Department Care Team (Late st Contact Info) Description 01/10/2024 11:00 AM EST Appointment Interventional Radiology [facility] 1[facility] [address] [place] [address] 02/27/2024 1:00 PM EST Cardiac Studies Cardiac Studies, [facility] [address] [place] [address] 03/20/2024 8:30 AM EST Laboratory Laboratory Patient Service [address] [phone] [address] 03/27/2024 1:50 PM EST Office Visit [address] [phone] Edgar Gibbs MD [address] [place] [address] 04/03/2024 9:30 AM EST Imaging Radiology [place] [address] 04/10/2024 9:15 AM EST Office Visit Urology, [facility] [address] [place] [address] Travon Canales MD [address] [place] [address] [address] 04/12/2024 9:30 AM EST Office Visit Cardiology, [address] [place] [address] Gris [facility]ford CRNP [facility] [place] [address] 05/01/2024 12:00 PM EST Office Visit Pulmonary Medicine, [facility] 132 [facility] [place] [address] Tino Stapleton MD [address] [place] [address] Health Maintenance Due Date Last Done Comments [...] and were consensually agreed upon. Care Teams Sheet Manager Relationship Specialty Start Date End Date Edgar Gibbs MD [address] [place] [phone] PCP - General Family Medicine 07/03/20 documented as of this encounter
--- OUTSIDE RECORDS SUMMARY | 2024-03-13 16:18 | External Medical Summary | Summary of Care ---
Author Name Unknown Organization [facility] Address [address] [facility] [place] [address] Phone [phone] Care Team Providers Care Script Developer Name Role Phone Edgar Gibbs MD Primary Care P rovider Reason for Visit * Reason Comments Cold Symptoms Encounter Details Date Type Department Care Team (Latest Contact Info) Description 11/17/2023 3:45 PM EDT Convenient Care Visit [facility] [address] [place] [phone] Randall Benjamin PA-C [address] [place] [address] Chest congestion* Allergies Active Allergy Reactions Criticality Noted Date Comments Latex 07/19/2019 Pantoprazole Sodium Edema face/lips/tongue High 04/0 02/2014 documented as of this encounter (statuses as of 11/18/2023) Medications Medication Sig Dispensed Refills Start Date [...] Acetate (3 Month) 22.5 MG Subcutaneous Kit (Phantom Pay) Inject 22.5 mg under the skin. Every 3 months 11/18/2020 Active Incruse Ellipta 62.5 MCG/ACT Inhalation Aerosol Powder Breath Activated (umeclidinium [place])Indications: Chronic obstructive pulmonary disease, unspecified COPD type [...] as of this encounter (statuses as of 11/18/2023) Active Problems Problem Noted Date Diagnosed Date [...] as of this encounter (statuses as of 11/18/2023) Resolved Problems Problem Noted Date Diagnosed Date [...] as of this encounter (statuses as of 11/18/2023) Immunizations Name Administration Dates Next Due COVID-19 mRNA, LNP-s, No Pre serve, 2-Dose Series (Pfizer) 01/19/2021,06/10/2020,05/20/2020 HEP B - Hepatitis B (Dialysis/Immumocomp Pt) 12/20/2018,07/21/2018,06/19/2018 PPD 05/03/2018 Pneumococcal Conjugate Vacci ne, 20-valent ([id number]) 03/16/2022 Pneumococcal Polysaccharide PPV23 (Pneumovax) 12/28/2017 Seasonal [...] No 06/16/2023 Does the household have a [facility] source of income? (Household - for [...] as of this encounter Progress Notes * hSala Garcia CMA - 11/17/2023 3:13 PM EDT [...] History: Diagnosis Date Hypertension, essential INFORMATION 03/2014 [facility]- kidney failure Pleural effusion Use of leuprolide acetate (Lupron) Past Surgical History: Procedure Laterality Date CYSTOSCOPY 07-08-2014 IR DRAINAGE CATHETER CHANGE Right 06/10/2015 CHANGE OF PERCUTANEOUS TUBE OR DRAINAGE CATHETER WITH XRAY AND CONTRAST MEDIUM performed by Gera Mcdaniel MD at [facility]OLOGY [facility] IR DRAINAGE CATHETER CHANGE Right 08/24/2016 CHANGE OF PERCUTANEOUS TUBE OR DRAINAGE CATHETER WITH XRAY AND CONTRAST MEDIUM performed by Gera Mcdaniel MD at [facility]OLOGY [facility] IR GENITORINARY NEPHRO/CYSTO/URETERAL 01/18/2019 IR [...] 15 ml/min) ([facility]) Prostate cancer ([facility]) Hydronephrosis, right Dialysis patient ([facility]) 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 ([facility]) DNR (do not resuscitate) ESRD (end stage renal disease) on dialysis ([facility]) Tobacco user Bladder stones Pleural effusion, right COPD, group C, by GOLD 2017 classification ([facility]) Nonrheumatic aortic valve stenosis Supplemental [...] MCG/ACT Inhalation Aerosol Powder Breath Activated (umeclidinium [place]) Inhale 1 Puff by mouth in [...] Yes, [facility] Disposition: ED Randall Benjamin PA-C [address] [phone] documented in this encounter Nursing Notes * [...] 12/13/2023 2:00 PM EDT Office Visit Cardiology, [facility] [address] [place] [address] Gris Alford CRNP 132 [place] [address] 01/10/2024 11:00 AM EST Appointment Interventional Radiology [facility], [facility] 1st Floor [address] [place] [address] 02/26/2024 9:30 AM EST Cardiac Studies Cardiac Studies, [facility] [address] [place] [address] 03/20/2024 8:30 AM EST Laboratory [facility] Center[address] [phone] [address] 03/27/2024 1:50 PM EST Office Visit [address] [phone] Edgar Gibbs MD [address] [place] [address] 04/03/2024 9:30 AM EST Imaging Radiology [address] [place] [address] 04/10/2024 9:15 AM EST Office Visit Urology, [facility] 132 [facility] [place] [address] Travon Canales MD [address] [place] [address] 05/01/2024 12:00 PM EST Office Visit Pulmonary Medicine, [facility] 132 [facility] [place] [address] Tino Stapleton MD [address] [place] [phone] Health Maintenance Due Date Last Done Comments [...] and were consensually agreed upon. Care Teams Script Developer Relationship Specialty Start Date End Date Edgar Gibbs MD [address] [place] [address] [phone] PCP - General Family Medicine 07/03/20 documented as of this encounter
--- OUTSIDE RECORDS SUMMARY | 2024-03-13 16:18 | External Medical Summary | Summary of Care ---
Author Name Unknown Organization [facility] Address [address] [facility] [address] Phone [phone] Care Team Providers Care Fleet Dispatch Manager Name Role Phone Edgar Gibbs MD Primary Care P rovider Encounter Details Date Type Department Care Team (Late st Contact Info) Description 12/12/2023 Result Scan Unspecified Department Pako Ramos MD [address] [facility] [address] <No scans attached> Allergies Active Allergy Reactions [...] V (GFR under 15 ml/min) ([facility]) take 2 pills 3 x daily 180 Tab 11 10/26/2018 Active Sodium Chloride Flush (NORMAL SALINE FLUSH) 0.9 % SOLN injection FLUSH ONCE DAILY WITH 10ml 300 mL 1 03/12/2019 Active Leuprolide Acetate (3 Month) 22.5 MG Subcutaneous Kit (Zopim) Inject 22.5 mg under the skin. Every 3 months 11/18/2020 Active Nephro-Farzana 0.8 MG Oral Tablet TAKE ONE TABLET BY MOUTH ONCE DAILY 90 Tablet 3 11/22/2022 Active Ventolin HFA 108 (90 Base) MCG/ACT Inhalation Aerosol SolutionIndications:CO PD exacerbation ([facility]) INHALE TWO PUFFS BY MOUTH EVERY 4 [...] needed for Anxiety. 30 Tablet 11/16/2023 Active Qpxoiyk-Boyawpdpwxk-Rh rmoterol 160-9-4.8 MCG/ACT Inhalation AerosolIndications:DIRECTOR OF INFORMATICS D, group C, by GOLD 2017 classification ([facility]) Inhale 2 Puffs by mouth in the morning and 2 Puffs before bedtime. 10.7 g 5 12/06/2023 Active documented as of this encounter (statuses [...] mRNA, LNP-s, No Pre serve, 2-Dose Series ([employer]) 01/19/2021,06/10/2020,05/20/2020 HEP B - Hepatitis B (Dialysis/Immumocomp Pt) 12/20/2018,07/21/2018,06/19/2018 PPD 05/03/2018 Pneumococcal Conjugate Vacci ne, 20-valent ([id number]) 03/16/2022 Pneumococcal Polysaccharide PPV23 (Pneumovax) 12/28/2017 Seasonal [...] 01/10/2024 11:00 AM EST Appointment Interventional Radiology [facility] 1st Floor [address] [place] [address] 02/27/2024 1:00 PM EST Cardiac Studies Cardiac Studies, [address] [place] [address] 03/20/2024 8:30 AM EST Laboratory Laboratory Patient Service [address] [phone] [address] 03/27/2024 1:50 PM EST Office Visit [address] [phone] Edgar Gibbs MD [address] [place] [address] 04/03/2024 9:30 AM EST Imaging Radiology [address] [place] [address] 04/10/2024 9:15 AM EST Office Visit Urology, [address] [place] [address] Travon Canales MD [address] [place] [address] [address] 04/12/2024 9:30 AM EST Office Visit Cardiology, [address] [place] [address] Gris Alford CRNP [address] [place] [address] 05/01/2024 12:00 PM EST Office Visit Pulmonary Medicine, [facility] [address] [place] [address] Tino Stapleton MD [address] [facility] [place] [address] Health Maintenance Due Date Last Done Comments [...] Date/Time Associated Diagnosis Comments OUTSIDE LAB RESULTS 12/12/2023 documented in this encounter Results * OUTSIDE LAB RESULTS (12/12/2023) 12/12/2023 Pako Ramos MD LABORATORY documented in this encounter Advance Directives * Full Code (Latest Code Status on File) Date Activated Date Inactivated Comments 04/15/2015 4:40 PM 04/16/2015 5:24 PM This order r eflects the patients wishes and were consensually agreed upon. Care Teams Fleet Dispatch Manager Relationship Specialty Start Date End Date Edgar Gibbs MD [address] [place] [phone] PCP - General Family Medicine 07/03/20 documented as of this encounter
--- OUTSIDE RECORDS SUMMARY | 2024-03-13 16:18 | External Medical Summary | Summary of Care ---
Author Name Unknown Organization [facility] Address [address] [facility] [place] [address] Phone [phone] Care Team Providers Care Medical File Clerk Name Role Phone Edgar Gibbs MD Primary Care P rovider Reason for Visit * Reason Onset Date Comments Hospital Follow-Up Patient is he re today for hospital follow up from [facility] for 2 days he was admitted due to bronchitis, flu like symptoms. Medication Administration 12/06/2023 Flu an d/or Pneumo Inj Hospital Follow-Up 12/06/2023 Encounter Details Date Type Department Care Team (Latest Contact Info) Description 12/06/2023 11:10 AM EDT Office Visit [address] [phone] Edgar Gibbs MD [address] [place] [phone] Hospital discharge follow-up*; COPD, group C, by GOLD 2017 classification ([facility]); Supplemental oxygen dependent; 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 ([facility]); ESRD (end stage renal disease) on dialysis ([facility]); HTN, goal below 140/90; Need for prophylactic vaccination and inoculation against influenza Allergies Active Allergy Reactions Criticality Noted Date Comments Latex 07/19/2019 Pantoprazole Sodium Edema face/lips/tongue High 04/0 02/2014 documented as of this encounter (statuses as of 12/06/2023) Medications Medication Sig Dispensed Refills Start Date End Date Status Cholecalciferol 2000 units Capsule Take 1 Capsule by mouth in the morning. 30 Cap 3 03/28/2017 Active Calcium Acetate, Phos Binder, 667 MG TABSIndications:Kidn ey disease, chronic, stage V (GFR under 15 ml/min) ([facility]) take 2 pills 3 x daily 180 Tab 11 10/26/2018 Active Sodium Chloride Flush (NORMAL SALINE FLUSH) 0.9 % SOLN injection FLUSH ONCE DAILY WITH 10ml 300 mL 1 03/12/2019 Active Leuprolide Acetate (3 Month) 22.5 MG Subcutaneous Kit (Feedback-Machine) Inject 22.5 mg under the skin. Every 3 months 11/18/2020 Active Nephro-Farzana 0.8 MG Oral Tablet TAKE ONE TABLET BY MOUTH ONCE DAILY 90 Tablet 3 11/22/2022 Active Ventolin HFA 108 (90 Base) MCG/ACT Inhalation Aerosol SolutionIndications: COPD exacerbation ([facility]) INHALE TWO PUFFS BY MOUTH [...] end stage chronic kidney disease on dialysis ([facility]) Take 1 Tablet by mouth in the morning. 90 Tablet 3 09/28/2023 Active LORazepam 0.5 MG Oral Tablet (Ativan)Indications: Panic attack as reaction to stress Take 1 Tablet by mouth every 8 hours as needed for Anxiety. 30 Tablet 11/16/2023 Active Budeson-Glycopyrrol- Formoterol 160-9-4.8 MCG/ACT Inhalation AerosolIndications:C OPD, group C, by GOLD 2017 classification ([facility]) Inhale 2 Puffs by mouth in the morning and 2 Puffs before bedtime. 10.7 g 5 12/06/2023 Active Incruse Ellipta 62.5 MCG/ACT Inhalation Aerosol Powder Breath Activated (umeclidinium Lawton)Indications: Chronic obstructive pulmonary disease, unspecified COPD type (HCC) Inhale 1 Puff by mouth in the morning. 30 Each 11 03/02/2022 Discontinue d(Medicatio n/Dose Changed) documented as of this encounter (statuses as of 12/06/2023) Active Problems Problem Noted Date Diagnosed Date [...] as of this encounter (statuses as of 12/06/2023) Resolved Problems Problem Noted Date Diagnosed Date [...] as of this encounter (statuses as of 12/06/2023) Immunizations Name Administration Dates Next Due COVID-19 mRNA, LNP-s, No Pre serve, 2-Dose Series ([employer]) 01/19/2021,06/10/2020,05/20/2020 HEP B - Hepatitis B (Dialysis/Immumocomp Pt) 12/20/2018,07/21/2018,06/19/2018 PPD 05/03/2018 Pneumococcal Conjugate Vacci ne, 20-valent ([id number]) 03/16/2022 Pneumococcal Polysaccharide PPV23 (Pneumovax) 12/28/2017 Seasonal [...] Sign Reading Time Taken Comments Blood Pressure 156/76 12/06/2023 11:11 AM EDT Pulse 74 12/06/2023 11:11 AM EDT Temperature 36.7 C (98.1 F) 12/06/2023 11:11 AM E DT Respiratory Rate 16 12/06/2023 11:11 AM EDT Oxygen Saturation 98% 12/06/2023 11:11 AM EDT Inhaled Oxygen Concentration - - Weight 58.2 kg (128 lb 6.4 oz) 12/06/2023 11:11 AM EDT Height - - Body Mass Index 22.04 11/17/2023 2:44 PM EDT documented in this [...] encounter Patient Instructions * Patient Instructions* Edgar Gibbs MD - 12/06/2023 11:21 AM EDT Taking Medicine Safely Medicine is given to help treat or prevent illness. But if you don't take it correctly, it might not help. It might even harm you. Your doctor or pharmacist can help you learn the right way to take your medicine. Listed below are some tips to help you take medicine safely. Safety Tips Have a routine for taking each medicine. Make it part of something you do each day, such as brushing your teeth or eating a meal. When you go to the hospital or your doctor's office, bring all your current medicines in their original boxes or bottles. If you can't do that, bring an up-to-date list of your medicines. Do not stop taking a prescription medicine unless your doctor tells you to. Doing so could make your condition worse. Do not share medicines. Let your doctor and pharmacist know of any allergies you have. Taking prescription medicines with alcohol, street drugs, herbs, supplements, or even some aodx-ckz-rbsvmcq medicines can be harmful. Talk to your doctor or pharmacist before using any of these things while taking a prescription medicine. When filling your prescriptions, try using the same pharmacy for all your medicines. If not, let the pharmacist know what medicines you are already on. Keep medicines out of the reach of children and pets. Do not use medicine that has or that doesn't look or smell right. Get rid of it properly. To find out the right way to get rid of medicine: Call your [facility]'s household trash and recycling service and ask if a drug take-back program is available in your community. Call your local pharmacy and ask the right way to get rid of the medicine. Go to http://www.fda.gov/ForConsumers/ConsumerUpdates/ead986103 to learn how to get rid of medicines safely. Using Generic Medicines Medicines have brand names and generic (chemical) names. When a medicine is first made, it is sold only under its brand name. Later, it can be made and sold as a generic. Generic medicines cost less than brand-name medicines and most work just as well. Most people can use the generic medicine instead of the brand-name medicine, unless their doctor says otherwise. 2410-5433 Melva Santos, [address] [place] [address], [place] [address]. All rights reserved. This information is not intended as a substitute for professional medical care. Always follow your healthcare professional's instructions. Taking an Active Role in Your Medicines Take the time to learn about your medicine. For instance, why are you taking it? What does it do? Work with your doctor or other health care providers to get the answers you need. Talk to your pharmacist about how to take each medicine, and ask for a fact sheet on each one. Ask Questions About Your Medicine What is the name of the medicine? Why do I need to take it? When should I take it? How should I take it: with water? with food? on an empty stomach? How much do I take? What do I do if I miss a dose? What side effects could it cause and which ones should I call the doctor about? Are there any foods or medicines I should avoid while taking this medicine? Keeping track of your medications? Name of medicine: Taken for: Dose: Time(s) to take it: Take an Active Role Fill all your prescriptions at the same pharmacy. This keeps your medicine history in one place. Talk to the pharmacist. Make sure you understand how to take each medicine. Ask for a fact sheet about each one. Tell your doctor and pharmacist about all the prescription and vbas-jhv-fzfsfux medicines you take.This includes vitamins and herbal remedies. Tell your doctor and pharmacist if you have any medical conditions or allergies to any medicine or food, or if you are or . Keep a list of all your medicines. Use the sample to the right as a guide for the type of information needed. [id number], [place] [address]. All rights reserved. This information is not intended as a substitute for professional medical care. Always follow your healthcare professional's instructions. documented in this encounter Progress Notes * Edgar Gibbs MD - 12/06/2023 11:20 AM EDT SUBJECTIVE: Matthew Rowe is a 78 year old male. Chief Complaint Patient presents with Hospital Follow-Up Patient is here today for hospital follow up from [facility] for 2 days he was admitted due to bronchitis, flu like symptoms. Medication Administration Flu and/or Pneumo Inj Hospital Follow-Up Recent Admission: Patient was recently admitted to [facility] on 11/17/2023. The date of discharge was 11/19/2023. Discharge report received and reviewed. He was treated for shortness of breath and likely COPD exacerbation. He had acute on chronic hypoxic respiratory failure and he is on 2 L of oxygen at baseline. He is also a smoker. CT chest showed no acute findings. He was started on Trelegy. He was discharged home on doxycycline 100 mg twice a day for 5 days and prednisone 40 mg daily for 3 days. HPI: At home he is feeling better. Taking Trelegy Ellipta 100/62.5/25 1 puff daily. wAS OVER $300 Patient Active Problem List Diagnosis Chronic anemia HTN, goal below 140/90 Kidney disease, chronic, stage V (GFR under 15 ml/min) ([facility]) Prostate cancer ([facility]) Hydronephrosis, right Dialysis patient ([facility]) 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 ([facility]) DNR (do not resuscitate) ESRD (end stage renal disease) on dialysis ([facility]) Tobacco user Bladder stones Pleural effusion, right COPD, group C, by GOLD 2017 classification ([facility]) Nonrheumatic aortic valve stenosis Supplemental [...] as needed for Anxiety. 30 Tablet 0 Phhvyur-Xvokdqjodiv-Zwpfpewygo 160-9-4.8 MCG/ACT Inhalation Aerosol Inhale 2 Puffs by mouth in the morning and 2 Puffs before bedtime. 10.7 g 5 Leuprolide Acetate (3 Month) 22.5 MG Subcutaneous Kit (Feedback-Machine) Inject 22.5 mg under the skin. Every 3 months No current facility-administered medications for this visit. Current and discharge medications have been reconciled. Review of patient's allergies indicates: Allergen Reactions Pantoprazole Sodium Edema face/lips/tongue Latex OBJECTIVE: BP 156/76 | Pulse 74 | Temp 36.7 C (98.1 F) (Tympanic) | Resp 16 | Wt 58.2 kg (128 lb 6.4 oz) |SpO2 98% | BMI 22.04 kg/m | BSA 1.62 m REVIEW OF SYSTEMS: PHYSICAL EXAM: BP 156/76 | Pulse 74 | Temp 36.7 C (98.1 F) (Tympanic) | Resp 16 | Wt 58.2 kg (128 lb 6.4 oz) |SpO2 98% | BMI 22.04 kg/m | BSA 1.62 m Physical Exam Vitals and nursing note [...] is normal. No prolonged expiration. Breath sounds: Rhonchi (Diffuse rhonchi on forced expiration) present. No wheezing or rales. Abdominal: General: Bowel sounds are normal. [...] - DISCH MED RECON CUR MED LIS COPD, group C, by GOLD 2017 classification ([facility]) - Hkyzpea-Rrzqlrtsjdf-Findpvywqp 160-9-4.8 MCG/ACT Inhalation Aerosol; Inhale 2 Puffs by mouth in the morning and 2 Puffs before bedtime. Supplemental oxygen dependent 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 ([facility]) ESRD (end stage renal disease) on dialysis ([facility]) HTN, goal below 140/90 Need for prophylactic vaccination and inoculation against influenza - INFLUENZA VAC., TRIVALENT, HD, PF, 65 AND ABOVE, 0.5 ML IM (FLUZONE HD) Patient is improving. Using Trelegy 100 but cost is too prohibitive for him. We look at [employer] Medicare formulary and will try to switch over to budesonide/glycopyrrolate/formoterol 1 11/01/2059 0.8 mcg 2 puffs twice a day. Instructed to rinse mouth after each use. Appropriate medication use and potential medication side effects discussed with patient. Flu shot provided today. I spent a total of 40-54 minutes (exact time 42 mins) minutes on the date of service in preparation, delivery, and documentation of the care provided to Matthew Rowe excluding any time spent in performance of separately billed services. Edgar Gamble MD * Sarah Vázquez LPN - 12/06/2023 11:15 AM EDT PRE - ADMINISTRATION DOCUMENTATION Are you experiencing any cold symptoms or fever? No Have you had Guillain-Mequon Syndrome (an illness that causes paralysis) within the last 6 weeks? No Have you had the flu shot in the past? YES Have you ever had a reaction to the flu shot? No Sarah Vázquez LPN, 12/06/2023 11:15 AM Immunization Administration Documentation Time Out Procedure Performed: Yes Patient Identified (Ask Name/Date of ): Yes Does the patient have a fever greater than 101 degrees today? No Patient allergic to latex? No VFC Stock: No Immunization(s) verified: Yes, Immunization Name: Flu, VIS Sheet(s) given: Yes Verified Side and Site: Yes Verified Shot(s) with Parent(s)/Patient: Yes documented in this encounter Nursing Notes * Sarah Vázquez LPN - 12/06/2023 11:15 AM EDT The patient has been properly identified by confirmation of name and date of . Chief Complaint Patient presents with Hospital Follow-Up Patient is here today for hospital follow up from [facility] for 2 days he was admitted due to bronchitis, flu like symptoms. Medication Administration Flu and/or Pneumo Inj documented in this encounter Plan of Treatment Upcoming Encounters Date Type Department Care Team (Late st Contact Info) Description 12/13/2023 2:00 PM EDT Office Visit Cardiology, [facility] [address] [facility] [place] [address] Gris Alford CRNP [address] [facility] [place] [address] 01/10/2024 11:00 AM EST Appointment Interventional Radiology [facility] 1st Floor [address] [place] [address] 02/27/2024 1:00 PM EST Cardiac Studies Cardiac Studies, [facility] [address] [facility] [place] [address] 03/20/2024 8:30 AM EST Laboratory Laboratory Patient Service [address] [phone] Have, [facility] Lock [address] [place] [address] 03/27/2024 1:50 PM EST Office Visit Family Practice [facility] [address] [place] [phone] Edgar Gibbs MD [address] [facility] [place] [address] 04/03/2024 9:30 AM EST Imaging Radiology [facility] 1st Floor, [address] [place] [address] 04/10/2024 9:15 AM EST Office Visit Urology, [facility] [address] [facility] [place] [address] Travon Canales MD [address] [place] [address] 05/01/2024 12:00 PM EST Office Visit Pulmonary Medicine, [facility] [address] [facility] [place] [address] Tino Stapleton MD [address] [place] [address] Health Maintenance Due Date Last Done Comments [...] Hospital discharge follow-up- Primary Other follow-up examination COPD, group C, by GOLD 2017 classification ([facility]) Supplemental oxygen dependent Dependence on supplemental oxygen 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 ([facility]) ESRD (end stage renal disease) on dialysis ([facility]) End stage renal disease HTN, goal below 140/90 Unspecified essential hypertension Need for prophylactic vaccination and inoculation against influenza documented in this encounter Advance Directives * Full Code (Latest Code Status on File) Date Activated Date Inactivated Comments 04/15/2015 4:40 PM 04/16/2015 5:24 PM This order r eflects the patients wishes and were consensually agreed upon. Care Teams Medical File Clerk Relationship Specialty Start Date End Date Edgar Gibbs MD [address] [place] [address] PCP - General Family Medicine 07/03/20 documented as of this encounter"
--- OUTSIDE RECORDS SUMMARY | 2024-03-13 16:18 | External Medical Summary | Summary of Care ---
Author Name Unknown Organization [facility] Address [address] [facility] [place] [address] Phone [phone] Care Team Providers Care Learning Support Services Director Name Role Phone Edgar Gibbs MD Primary Care P rovider Encounter Details Date Type Department Care Team (Late st Contact Info) Description 12/05/2023 Result Scan Unspecified Department <No scans attached> Allergies Active Allergy Reactions Criticality Noted Date Comments Latex 07/19/2019 Pantoprazole Sodium Edema face/lips/tongue High 04/0 02/2014 documented as of this encounter (statuses as of 12/11/2023) Medications Medication Sig Dispensed Refills Start Date [...] Acetate (3 Month) 22.5 MG Subcutaneous Kit ([employer]ifi) Inject 22.5 mg under the skin. Every [...] as of this encounter (statuses as of 12/11/2023) Active Problems Problem Noted Date Diagnosed Date [...] as of this encounter (statuses as of 12/11/2023) Resolved Problems Problem Noted Date Diagnosed Date [...] as of this encounter (statuses as of 12/11/2023) Immunizations Name Administration Dates Next Due COVID-19 mRNA, LNP-s, No Pre serve, 2-Dose Series ([employer]) 01/19/2021,06/10/2020,05/20/2020 HEP B - Hepatitis B (Dialysis/Immumocomp Pt) 12/20/2018,07/21/2018,06/19/2018 PPD 05/03/2018 Pneumococcal Conjugate Vacci ne, 20-valent ([id number]) 03/16/2022 Pneumococcal Polysaccharide PPV23 (Pneumovax) 12/28/2017 Seasonal [...] 2:00 PM EDT Office Visit Cardiology, [facility] [address] [facility] [place] [address] Gris Alford CRNP [address] [facility] [place] [address] 01/10/2024 11:00 AM EST Appointment Interventional Radiology [facility], [facility] 1st Floor [address] [place] [phone] 02/27/2024 1:00 PM EST Cardiac Studies Cardiac Studies, [facility] [address] [place] [address] 03/20/2024 8:30 AM EST Laboratory Laboratory Patient Service [address] [phone] [address] 03/27/2024 1:50 PM EST Office Visit [address] [phone] Edgar Gibbs MD [address] [place] [address] 04/03/2024 9:30 AM EST Imaging Radiology [address] [place] [address] 04/10/2024 9:15 AM EST Office Visit Urology, [facility] [address] [place] [address] Travon Canales MD [address] [place] [address] [address] 05/01/2024 12:00 PM EST Office Visit Pulmonary Medicine, [facility] [address] [facility] [place] [address] Tino Stapleton MD [address] [place] [phone] Health Maintenance Due Date Last Done Comments [...] Date/Time Associated Diagnosis Comments OUTSIDE LAB RESULTS 12/05/2023 documented in this encounter Results * OUTSIDE LAB RESULTS (12/05/2023) 12/05/2023 No Physician Data Unknown LABORATORY documented in this encounter Advance Directives * Full Code (Latest Code Status on File) Date Activated Date Inactivated Comments 04/15/2015 4:40 PM 04/16/2015 5:24 PM This order r eflects the patients wishes and were consensually agreed upon. Care Teams Learning Support Services Director Relationship Specialty Start Date End Date Edgar Gibbs MD [address] [place] [address] PCP - General Family Medicine 07/03/20 documented as of this encounter
[2024-03-13] MEDS: HEPARIN SOD (PORCINE) 1000 UNIT/ML IV SCH (17:50)
[2024-03-13] MEDS: LORazepam 0.5 MG TAB PO PRN (18:25)
--- NOTE | 2024-03-13 18:45 | Dialysis Progress Note ---
Date of Service March 13, 2024 Assessment & Plan (1) ESRD (end stage renal disease) on dialysis: Plan: with missed treatment and K 7 (no dramatic ECG changes) and HTN urgency/emergency and acute on chronic resp failure >4 hr tx on large dialyzer for maximal clearance, 2K bath today >orders in for tomorrow for more routine treatment regular dialyzer, 3.5 hr via AVF; 2K; to 2.5L as BP tolerates -heparin 1500 bolus/800 unit hourly on treatment -daily bmp, cbc for now pls (2) Anemia in ESRD (end-stage renal disease): Plan: CARLO contraindicated w/ prostate CA hx; doubt he'll need transfusion though w/ hgb 9.8 in setting of overload (3) Acute on chronic hypoxic respiratory failure: Plan: aggressive UF today as much as tolerated; on 2L NC at baseline (4) Volume overload: Plan: as evidenced by extreme elevations in blood pressure and in hypoxia -aggressive UF w/ HD today as above -fluid limit w/ HD and started torsemide on non hd days > orders in on these Admission and Anticipated Discharge Date Admission Date: March 13, 2024 Subjective seen on dialysis; endorses anxiety worsened by sob but also other prior to HD txs and at other times ; breathing better; not anxious currently; had cramps which resolved w/ supportive measures on treatment Review of Systems Review of Systems: All systems reviewed & are unremarkable except as noted in Subjective Physical Exam Constitutional: well developed, well nourished and + frail appearing; no acute distress Eyes: EOM intact bilaterally ENMT: Mouth: + dry oral mucous membranes Respiratory: normal respiratory effort (on 4L NC) and + tachypneic; no cough and + not able to speak in complete sentence (needs breath for longer sentence) Auscultation: + diminished lung sounds Cardiovascular: RRR, no murmur, no edema Extremities: + AV fistula Gastrointestinal (Abdomen): Inspection/Auscultation: normal bowel sounds Percussion/Palpation: abdomen soft; abdomen nontender Musculoskeletal: Extremities: strength 5/5 throughout Skin: no rashes, warm and dry Results & Data Vital Signs (Past 12 Hours) Vital Signs Temp Pulse Pulse Resp BP BP Pulse Ox 03/13/24 17:22 36.6 C 94 H 18 164/83 H 94 03/13/24 17:05 36.9 C 81 148/84 H 03/13/24 17:00 81 125/74 03/13/24 16:30 88 130/73 03/13/24 16:00 82 136/79 03/13/24 15:30 77 131/74 03/13/24 15:00 74 133/81 03/13/24 14:30 74 130/88 03/13/24 14:00 77 143/82 H 03/13/24 13:30 82 160/90 H 03/13/24 13:03 80 159/87 H 03/13/24 13:00 37.1 C 83 03/13/24 11:55 75 20 94 03/13/24 10:55 89 03/13/24 10:36 85 L 03/13/24 10:36 37.2 C 89 19 225/125 H 92 O2 Del Method O2 Flow Rate 03/13/24 17:22 Nasal Cannula 4 03/13/24 17:05 03/13/24 17:00 03/13/24 16:30 03/13/24 16:00 03/13/24 15:30 03/13/24 15:00 03/13/24 14:30 03/13/24 14:00 03/13/24 13:30 03/13/24 13:03 03/13/24 13:00 03/13/24 11:55 Room Air 03/13/24 10:55 03/13/24 10:36 Nasal Cannula 0 03/13/24 10:36 Nasal Cannula 4 Laboratory Results reviewed
[2024-03-13 18:54] LABS: BUN Creatinine Ratio 6.5 (10-20); Calcium 9.8 mg/dl (8.6-10.3); Creatinine Clr Calc Pharmacy 11.5 ml/min; Potassium 4.9 mmol/L (3.5-5.1)
[2024-03-13 19:03] LABS: Troponin I High Sensitivity 81.2 pg/ml (0-20)
[2024-03-13] MEDS: methylPREDNISolone 40 MG in SYRINGE 0 ML IV SCH (20:48)
[2024-03-13] MEDS: CITALOPRAM 20 MG TAB PO SCH (20:48)
[2024-03-13] MEDS: HEPARIN SOD 5,000 UNIT/0.5 ML VIAL SQ SCH (20:48)
[2024-03-13] MEDS ORDERED: NON-FORMULARY MEDICATION (Budesonide-Glycopyr-Formoterol [Breztri Aerosphere] 160-9-4.8 mc INH SCH (21:00)
[2024-03-14 06:44] LABS: Hematocrit (blood only) 27.5 % (42.0-52.0); Hemoglobin 9.1 g/dl (14.0-18.0); Mean Corpuscular Hgb Conc 33.1 g/dL (32.0-36.0); Mean Corpuscular Volume 96.8 fL (80.0-100.0); Mean Platelet Volume 10.1 fL (9.4-12.4); Platelet Count 165 K/uL (130-400); RDW Standard Deviation 49.1 fL (36.4-46.3); Red Blood Count 2.84 M/uL (4.70-6.10); White Blood Count 6.15 K/ul (4.8-10.8)
[2024-03-14 07:18] LABS: Calcium 9.7 mg/dl (8.6-10.3); Magnesium 2.1 mg/dl (1.7-2.4); Potassium 5.8 mmol/L (3.5-5.1)
[2024-03-14 07:32] LABS: BUN Creatinine Ratio 8.6 (10-20); Creatinine Clr Calc Pharmacy 9.1 ml/min; Phosphorus 6.3 mg/dl (2.5-4.9)
--- NOTE | 2024-03-14 08:23 | XRay Report ---
EXAM: XR chest 1V portable CLINICAL HISTORY: REASSES FLUID, S/P HD. TECHNIQUE: An X-ray image of the chest was obtained in AP projection. COMPARISON: Prior X-ray study dated 11/17/2023. FINDINGS: Pulmonary Parenchyma: Right lower lung zone patchy ill defined opacities seen. Bilateral prominent bronchovascular markings and hilar vessels. These findings could be due to pulmonary congestion, yet possibility of underlying infection can't be ruled out. Obliterated both costophrenic angles with rising level, suggesting bilateral pleural effusion, more at right side. Heart and Mediastinum: Cardiomegaly with dilated unfolded aorta. Bony Thorax: Bony thorax appears intact without fractures or deformities. Soft Tissues: Soft tissues overlying the chest wall are unremarkable. IMPRESSION: 1. Right lower lung zone patchy ill-defined opacities seen. 2. Bilateral prominent bronchovascular markings and hilar vessels. 3. These findings could be due to pulmonary edema and congestion, yet possibility of underlying infection can't be ruled out. 4. Obliterated both costophrenic angles with rising level, suggesting bilateral pleural effusion, more at the right side. 5. Cardiomegaly with dilated unfolded aorta. 6. The findings are stable since prior exam. Electronically signed by Royal Foster 03-14-2024 08:22 AM
[2024-03-14] MEDS: NEPHROCAPS PO SCH (08:34)
[2024-03-14] MEDS: amLODIPine BESYLATE 5 MG TAB PO SCH (08:34)
[2024-03-14] MEDS ORDERED: UMECLIDINIUM/VILANTEROL 62.5/25MCG 7 PUFFS/INHALER INH SCH (09:00)
[2024-03-14] MEDS: FLUTICASONE FUROATE 200MCG 14 PUFFS/INHALER INH SCH (09:07)
[2024-03-14] MEDS: cefTRIAXone SODIUM 2,000 MG/50 ML BAG IV SCH (09:07)
--- NOTE | 2024-03-14 10:24 | Urology Consultation ---
Date of Consultation March 14, 2024 Assessment & Plan (1) Nephrostomy status: Nephrostomy tube appears to be in good position. Based on prior imaging and what he currently tells me, I suspect this is a nephroureteral catheter that extends all the way down to the bladder. The loops of the tube should keep it fairly secured in position. I do not think it requires additional suturing, but topical dressing such as the bandage he has could be used to keep it fairly secure at the skin. If desired, he could use an overnight bag to drain the urine continuously, but he seems to be doing well managing by emptying the tube every couple hours and as needed. Would recommend maintaining this tube, exchanging it on a routine schedule (should be around April,) unless it stops draining or becomes dislodged. He can continue to drain and flush the tube as he typically does. If there is concern for infection, could obtain a sample of urine from the tube for culture, however this will likely be positive due to the chronic nature of his nephrostomy. (2) End stage renal disease: Currently receiving dialysis through nephrology. Will defer to their recommendations. (3) Prostate cancer: Prostate cancer managed with Lupron injections. He will continue these with his primary urologist as an outpatient. Plan Urology will sign off for now. Please call with any questions or concerns. History of Present Illness Attending Physician: Nasim Gregg MD History of Present Illness This is an 78-year-old male with history of end-stage renal disease on hemodialysis, history of prostate cancer. He presented to the emergency department on 03/13/2024 with increased shortness of breath and was admitted to the hospital for further care. Urologic history is notable for chronic right nephrostomy tube. This is typically exchanged at [facility] every 3 months. He reports that his next exchange is likely in April 2024. The tube has been draining well, however there was concern that the tube may not be well secured in place. He typically does not have it connected to a bag, instead uncapping it and draining it a couple times a day. He is currently on Lupron injections for prostate cancer, followed by Dr. Canales from [facility] urology. At the bedside, he reports that the nephrostomy tube is functioning as it normally does. He tells me that sometimes they will stitch in place and sometimes not. He also reports that essentially all of his urine drains through this tube, suggesting that it is a nephroureteral catheter extending down to the bladder. He reports a history of bladder stones, but has deferred surgical intervention as his urine is draining well through the nephrostomy tube. Labs reviewed:. 03/14/2024: WBC 6.15. Creatinine 5.01., Potassium 5.8, sodium 133. Blood cultures are pending Allergies Allergy/AdvReac Type Severity Reaction Status Date / Time pantoprazole Allergy Severe EDEMA Verified 07/03/23 23:53 FACE/LIPS/TONGUE latex Allergy Unknown ON Verified 07/04/23 00:00 [employer] MED LIST Home Medications Medication Instructions Recorded Confirmed Type albuterol sulfate 90 mcg/actuation 2 puff inhalation Q4H PRN 11/18/23 03/13/24 History aerosol inhaler (Ventolin HFA) Shortness Of Breath Or Wheezing amlodipine 5 mg tablet 5 mg PO DAILY 11/18/23 03/13/24 History citalopram 10 mg tablet 10 mg PO HS 11/18/23 03/13/24 History lorazepam 0.5 mg tablet 0.5 mg PO TID PRN Anxiety 11/18/23 03/13/24 History torsemide 100 mg tablet 100 mg PO UD 11/18/23 03/13/24 History vitamin B complex-vitamin C-folic 1 tab PO DAILY 11/18/23 03/13/24 History acid 0.8 mg tablet (Nephro-Farzana) budesonide 160 mcg-glycopyr 9 2 inh inhalation BID 03/13/24 03/13/24 History mcg-formot 4.8 mcg/actuation HFA inhaler ([employer]) Patient History Medical History COPD (chronic obstructive pulmonary disease) ESRD (end stage renal disease) on dialysis Bladder stones SOB (shortness of breath) Anemia Hypoxia Acute on chronic respiratory failure with hypoxia and hypercapnia AV fistula left arm Permanent central venous catheter in place Surgical History History of surgery PLACEMENT OF NEPHROSTOMY TUBE Family History Other Breast cancer Lung cancer No pertinent family history Stomach cancer Social History Smoking Status: Current every day smoker Tobacco Type: Cigarettes Cigarettes Per Day: 4-5 QD; Second Hand Exposure: No; Do You Dip or Chew Tobacco: No; Tobacco Cessation Education Requested by Patient: No Hx Alcohol Use: No Hx Substance Use: No Preferred Language: [place] Communication Ability: Effective Visual Impairment: No Limitations Flight/Transport Nurse Required: No Beliefs That Will Affect Care: None marital status: Current Living Situation: Spouse Current Living Situation Comment: Home Other Information That Helps Us Care for You: No Feels Safe at Home: Yes Safety Concerns: Feels Safe At This Time Assistive Devices: Denture - Upper, Denture - Lower, Glasses, Hearing Aid - Bilateral and Oxygen - Continuous Review of Systems Review of Systems: 12 point review of systems negative exce pt for otherwise indicated. Physical Exam Constitutional: well developed and well nourished; no acute distress Eyes: + anicteric sclerae; pupils not irregula r Respiratory: normal respiratory effort; no respiratory distress, does not use accessory muscles and no cough Supplemental oxygen with nasal cannula Cardiovascular: well perfused Gastrointestinal (Abdomen): Inspection/Auscultation: abdomen normal to inspection; abdomen not distended Musculoskeletal: Extremities: extremities normal to inspection Skin: normal turgor; no rashes and no lesions Neurologic: moves all extremities and awake Psychiatric: Orientation: alert and oriented x 3 Genitourinary: Right nephrostomy tube appears to be in good position. Bandage in place securin g it to the skin. Not connected to bag so no active drainage, although patient reports this is normal. Results & Data Vital Signs (Past 12 Hours) Vital Signs Temp Pulse Pulse Resp BP Pulse Ox O2 Del Method 03/14/24 08:26 36.6 C 84 17 144/74 H 97 Nasal Cannula 03/14/24 07:20 83 15 96 Nasal Cannula 03/14/24 07:00 84 03/14/24 03:27 36.8 C 78 19 148/88 H 98 Nasal Cannula 03/13/24 22:59 90 03/13/24 22:30 36.5 C 75 20 159/80 H 93 Nasal Cannula O2 Flow Rate 03/14/24 08:26 2 03/14/24 07:20 2 03/14/24 07:00 03/14/24 03:27 2.0 03/13/24 22:59 03/13/24 22:30 4 PG Care Time/CCT Total # of Minutes Spent Total Time Spent with Patient: Total time spent is greater than 50% in coordination of care (as documented) at patient's floor/unit and/or counseling patient: Coding Level of Care Code 76986 INT INP/OBS CARE 2/55MIN Diagnoses Nephrostomy status Z93.6 End stage renal disease N18.6 Prostate cancer C61
--- NOTE | 2024-03-14 11:53 | Dialysis Progress Note ---
Date of Service March 14, 2024 Assessment & Plan (1) ESRD (end stage renal disease) on dialysis: Plan: presented 03/13 with missed treatment and K 7 (no dramatic ECG changes) and HTN urgency/emergency and acute on chronic resp failure >> did 4 hr tx on large dialyzer for maximal clearance, 2K bath w/ 3.5L UF undergoing routine treatment today regular dialyzer, 3.5 hr via AVF; 2K; to 2.5L as BP tolerates with heparin 1500 bolus/800 unit hourly on treatment >has unexpected/persistent hyperkalemia today w/ K back up to 5.8; lactate wnl; no evidence of recirculation; no hemolysis; diet and meds appropriate >>>>if K high tomorrow will give lokelma versus redialyze versus check URR next tx >>>>K level today is NOT reason he can't be d/c if d/c contemplated -daily bmp, cbc for now pls -next HD as IP/OP on 03/17 or as needs dictate such as mgt of hyperkalemia (2) Anemia in ESRD (end-stage renal disease): Plan: CARLO contraindicated w/ prostate CA hx; doubt he'll need transfusion though w/ hgb 9.8 in setting of overload at admission and hgb down to 9.1 today (unexpected but will follow) (3) Acute on chronic hypoxic respiratory failure: Plan: aggressive UF today as much as tolerated; on 2L NC at baseline and back to this today (4) Volume overload: Plan: as evidenced by extreme elevations in blood pressure and in hypoxia at admission >> both of these are improved today -continue fluid limit w/ HD and started torsemide on non hd days Admission and Anticipated Discharge Date Admission Date: March 13, 2024 Subjective breathing better; dry heaves this am; then BM >> after that malaise improved; no cough; no mm/skeletal/abd pain Review of Systems 2 Review of Systems: All systems reviewed & are unremarkable except as noted in Subjective Physical Exam 2 Constitutional: well developed, well nourished and + frail appearing; no acute distress Eyes: EOM intact bilaterally ENMT: Mouth: + dry oral mucous membranes Respiratory: normal respiratory effort (on 2L NC) and able to speak in complete sentences; no cough Auscultation: + diminished lung sounds Cardiovascular: Rate/Rhythm: regular rate and regular rhythm Heart Sounds: + murmur Extremities: + AV fistula; no edema Gastrointestinal (Abdomen): Inspection/Auscultation: normal bowel sounds P ercussion/Palpation: abdomen soft; abdomen nontender Musculoskeletal: Extremities: strength 5/5 throughout Skin: no rashes, warm and dry Results & Data Vital Signs (Past 12 Hours) Vital Signs Temp Pulse Pulse Resp BP BP Pulse Ox 03/14/24 10:11 88 139/72 03/14/24 10:03 36.6 C 87 03/14/24 08:26 36.6 C 84 17 144/74 H 97 03/14/24 07:20 83 15 96 03/14/24 07:00 84 03/14/24 03:27 36.8 C 78 19 148/88 H 98 O2 Del Method O2 Flow Rate 03/14/24 10:11 03/14/24 10:03 03/14/24 08:26 Nasal Cannula 2 03/14/24 07:20 Nasal Cannula 2 03/14/24 07:00 03/14/24 03:27 Nasal Cannula 2.0 Laboratory Results 03/14/24 06:00 03/14/24 06:00
[2024-03-14] MEDS: HEPARIN SOD (PORCINE) 1000 UNIT/ML IV ONE (11:56)
[2024-03-14] MEDS: HEPARIN SOD (PORCINE) 1000 UNIT/ML IV SCH (11:57)
--- NOTE | 2024-03-14 12:49 | Discharge Summary ---
Discharge Summary Date of Service March 14, 2024 Principal Dx & Hospital Course #1 = Principal Diagnosis (1) Acute hyperkalemia: -in setting of missed dialysis sessions -received 2 sessions of dialysis -per nephrology patient stable for discharge (2) Dialysis patient: -will need to get dialysis on regular schedule given missed session caused hyperkalemia (3) End stage renal disease: Notes For Next Care Provider 78-year-old male with history of chronic hypoxic respiratory failure on 2 L of oxygen along with several other comorbid conditions including ESRD presents for acute hyperkalemia. Received 2 sessions of dialysis with improvement in symptoms of anxiety and an improvement in the hyperkalemia. Patient was having diarrhea at home that is since resolved. Patient is stable for discharge home. Medication Changes From Visit -none Admission HPI Per Admitting Provider Patient is 78 year old male with PMH HTN, ESRD on HD, chronic anemia, COPD, chronic hypoxic respiratory failure on 2L oxygen, history recurrent pleural effusion, nonrheumatic aortic valve stenosis, H/O prostate cancer, history of right hydronephrosis, history of bladder stones, Right nephrostomy tube in place presented to ER with c/o SOB. On HD on Monday, , Monday schedule. Last dialysis was 4 days ago. Patient states history of anxiety that he reports is worse in the wintertime. He reports has been having panic attacks which she describes as feeling hot followed by short of breath and feeling very anxious. When he has these episodes he also will have several episodes of loose stool. He reports is on citalopram for the past year without noted significant improvement. His PCP had given him lorazepam to try. Patient states has been taking lorazepam 3 times a day as he is having what he describes as panic attacks multiple times a day. He feels like the lorazepam helps a little but symptoms are recurrent. States yesterday and today had episode of feeling hot, then feels anxious and SOB. Today called EMS. States today developed cough that is clear productive cough. He denies any chest pain or fever, chills. He makes urine and drains his nephrostomy several times a day. Denies hematuria. Denies ill contacts, N/V, hematochezia, melena, DUNLAP, dizziness, syncope, vision changes, neck pain, palpitations, hemoptysis, sore throat, rhinorrhea, abdominal pain, paresthesias, extremity weakness, extremity edema, rashes. Admission Exam Per Admitting Provider General: no distress, sitting upright in bed on 2L via NC, chronic ill appearing elderly male Head: normocephalic, atraumatic Eyes: conjunctiva non-injected, anicteric ENT: normal inspection external ears, nose, mucous membranes moist Neck: supple, trachea midline Lungs: R: 22, O2 sat 94% on 2L via NC, able to speak in short sentences but with noted SOB, +diffuse inspiratory and expiratory wheezing throughout CV: RRR, + murmur, 1+ pretibial edema Abd: normal BS, soft, non-tender. Right nephrostomy tube noted without any surrounding erythema or edema and no noted discharge from site Ext: no cyanosis, no calf tenderness Neuro: A&O x 3, no focal deficits noted, normal affect Skin: warm, dry Discharge Exam Gen: A&O 3 NAD HEENT: NCAT, EOMI, not icteric. External ears normal. No rhinorrhea. Moist mucous membranes. Neck: Supple, full range of motion, no observable masses, No meningeal sign. Lungs: significantly improved rhonchi bilaterally CV: RRR, no edema. Abdomen: Soft, nondistended, No rebound tenderness. MSK: No joint swelling, no redness. Skin: No rashes, petechiae, lesions. Normal color per patient. Neuro: Normal Gait, Grossly intact. Psych: Appropriate for situation. Updated Medication List Medication Instructions Recorded Confirmed Type albuterol sulfate 90 mcg/actuation 2 puff inhalation Q4H PRN 11/18/23 03/13/24 History aerosol inhaler (Ventolin HFA) Shortness Of Breath Or Wheezing amlodipine 5 mg tablet 5 mg PO DAILY 11/18/23 03/13/24 History citalopram 10 mg tablet 10 mg PO HS 11/18/23 03/13/24 History lorazepam 0.5 mg tablet 0.5 mg PO TID PRN Anxiety 11/18/23 03/13/24 History torsemide 100 mg tablet 100 mg PO UD 11/18/23 03/13/24 History vitamin B complex-vitamin C-folic 1 tab PO DAILY 11/18/23 03/13/24 History acid 0.8 mg tablet (Nephro-Farzana) budesonide 160 mcg-glycopyr 9 2 inh inhalation BID 03/13/24 03/13/24 History mcg-formot 4.8 mcg/actuation HFA inhaler ([email or web address]) Hospital Stay Data Consultations 03/13/24 12:22 Consult Nephrology Stat 03/13/24 12:31 ED Decision to Admit Stat 03/13/24 14:39 Consult Nephrology Routine 03/13/24 18:04 Consult Urology Routine Pending Results Patient Have Any Pending Studies at Discharge: No Discharge Instructions Given to Patient (Per Discharging Provider) 1. Continue to attend dialysis sessions as scheduled. Total Time Total Time Spent Total Time Spent (In Minutes): I spent a total of 35 minutes coordinating, documenting, and providing care for this patient excluding time spent in the performance of separately billed services.
[2024-03-14 14:21] VITALS: BP 141/87; TEMP 98.1
[2024-03-14 15:27] VITALS: PULSE 87; RESP 14; O2SAT 98
[2024-03-15] MEDS ORDERED: TORSEMIDE 100 MG TAB PO SCH (09:00)
--- NOTE | 2024-03-15 23:08 | Electrocardiogram Report ---
Test Reason : Blood Pressure : */* mmHG Vent. Rate : 76 BPM Atrial Rate : 76 BPM P-R Int : 180 ms QRS Dur : 94 ms QT Int : 420 ms P-R-T Axes : 44 -24 104 degrees QTcB Int : 472 ms Normal sinus rhythm Prolonged QT Abnormal ECG When compared with ECG of 17-Nov-2023 18:02, T wave inversion more evident in Lateral leads Confirmed by Alex Ghotra ([id number]) on 03/15/2024 11:08:07 PM Referred By: REFERRED SELF Confirmed By: Alex Ghotra
--- NOTE | 2024-03-15 23:09 | Electrocardiogram Report ---
Test Reason : Blood Pressure : */* mmHG Vent. Rate : 89 BPM Atrial Rate : 89 BPM P-R Int : 182 ms QRS Dur : 84 ms QT Int : 406 ms P-R-T Axes : 52 -26 109 degrees QTcB Int : 493 ms Normal sinus rhythm Possible Left atrial enlargement Prolonged QT Abnormal ECG When compared with ECG of 13-Mar-2024 12:31, T wave inversion less evident in Lateral leads Confirmed by Alex Ghotra ([id number] on 03/15/2024 11:08:32 PM Referred By: REFERRED SELF Confirmed By: Alex Ghotra
== END 2024-03-14 17:30 | disposition home or self-care (01) | DRG 189 ==
LOC: ED 10:29 → EDINP 13:07 → SUATTDRO 13:07 → EDINP 16:13 → 2S 17:23

== ENCOUNTER 2024-06-10 12:59 | Inpatient (IN) ==
[2024-06-10 13:56] LABS: Basophils # (auto) 0.04 K/uL (0.00-0.20); Basophils % (auto) 0.5 %; Eosinophils # (auto) 0.11 K/uL (0.00-0.50); Eosinophils % (auto) 1.5 %; Hematocrit (blood only) 27.3 % (42.0-52.0); Hemoglobin 9.1 g/dl (14.0-18.0); Immature Granulocytes # (auto) 0.03 K/uL (0.01-0.20); Immature Granulocytes % (auto) 0.4 %; Lymphocytes # (auto) 1.18 K/uL (1.20-3.40); Lymphocytes % (auto) 15.6 %; Mean Corpuscular Hemoglobin 32.2 pg (25.0-34.0); Mean Corpuscular Hgb Conc 33.3 g/dL (32.0-36.0); Mean Corpuscular Volume 96.5 fL (80.0-100.0); Mean Platelet Volume 10.3 fL (9.4-12.4); Monocytes # (auto) 0.51 K/uL (0.11-0.59); Monocytes % (auto) 6.7 %; Neutrophils # (auto) 5.71 K/uL (1.40-6.50); Neutrophils % (auto) 75.3 %; Platelet Count 148 K/uL (130-400); RDW Coefficient of Variation 13.5 % (11.5-14.5); RDW Standard Deviation 48.2 fL (36.4-46.3); Red Blood Count 2.83 M/uL (4.70-6.10); White Blood Count 7.58 K/ul (4.8-10.8)
[2024-06-10 14:21] LABS: Alanine Aminotransferase 13 U/L (7-52); Albumin Globulin Ratio 1.3 (0.9-2); Alkaline Phosphatase 163 U/L (34-104); Anion Gap 11 (3-11); Aspartate Aminotransferase 20 U/L (13-39); Bilirubin,Total 0.5 mg/dl (0.2-1.0); Blood Urea Nitrogen 70 mg/dl (6-23); Calcium 9.4 mg/dl (8.6-10.3); Carbon Dioxide 27 mmol/L (21-32); Chloride 97 mmol/L (98-107); Globulin 3.1 gm/dl (2.5-4.0); Glucose 132 mg/dl (70-99(Fasting)); Potassium 6.7 mmol/L (3.5-5.1); Sodium 135 mmol/L (136-145); Total Protein 7.1 gm/dl (6.0-8.3)
[2024-06-10] MEDS: CALCIUM GLUCONATE 1,000 MG/60 ML BAG IV STA (14:34)
[2024-06-10] MEDS: ALBUTEROL 0.5% NEB SOLN 2.5 MG/0.5 ML VIAL NEB STA (14:40)
[2024-06-10] MEDS: DEXTROSE 50% 50 ML SYRINGE IV STA (14:51)
[2024-06-10] MEDS: INSULIN HUMAN REGULAR PER UNIT 10 UNITS in SYRINGE 9.9 ML IV STA (14:54)
[2024-06-10] MEDS ORDERED: ACETAMINOPHEN 325 MG TAB PO PRN (15:04)
[2024-06-10] MEDS ORDERED: POLYETHYLENE (MIRALAX) 17 GM PACK PO PRN (15:04)
--- NOTE | 2024-06-10 15:07 | History & Physical Report ---
Date of Service June 10, 2024 Assessment & Plan (1) Acute hyperkalemia: (2) Dialysis patient: Plan Assessment/plan Hyperkalemia secondary to missed dialysis session Patient presents to the ED after missing dialysis on Monday and today; due to concern for infiltrated fistula. Potassium of 6.7 on admission Creatinine of 10.04 ED provider discussed with vascular PA and nephrology; recommend admission and trial of dialysis through the fistula. Status post insulin/dextrose, calcium gluconate for hyperkalemia. Continue on Lokelma 10 mg 3 times daily; dialysis as per nephrology Discussed with nephrology Plan to obtain a stat hemodialysis venous duplex to review if patient can undergo dialysis. Repeat BMP at 6 pm and am Chronic conditions: COPD-continue home inhalers. Anemia in setting of ESRD;Hb at baseline Hypertensioncontinue on home amlodipine Aortic stenosis; echo from January 2024 shows EF of 55%; moderate aortic stenosis. Prostate cancerhistory of prostate cancer, patient on leuprolide injections; follows up with urology DVT prophylaxis on hold Full code Time spent evaluating patient, direct bedside care, chart review, placing orders, interpretation of diagnostic studies, discussion with consultants, patient, and family members, as well as other required patient management activ ities is 75 minutes Please note the above document was generated using voice recognition software. It may contain grammatical, syntax or spelling errors. Any formal questions or concerns about the content, text or information contained within the body of this dictation should be directly addressed to the provider for clarification History of Present Illness Chief Complaint: Missed dialysis Primary Care Provider: Edgar Gamble MD History obtained from chart review, interview with the patient and discussion with the ED provider Past medical history of ESRD on hemodialysis, COPD,, history of prostate cancer, hypertension, anemia of chronic disease. Last admission in February 2024 after missed dialysis session; Patient had to go on dialysis as per his normal schedule on Monday; his fistula was reportedly infiltrated; they are unable to do the treatment and was sent home. He returned back to the dialysis center again today; was told that patient did not feel comfortable during the treatment there and was sent to the ED. Patient denies any pain and discomfort on exam. Denies increased swelling. On presentation to the ED he was found to have potassium of 6.7; creatinine of 10 and BUN of 70. Patient was found to have intact bruit; ED provider discussed with vascular PA and nephrology; plan to admit to the hospital and try dialysis. Allergies Allergy/AdvReac Type Severity Reaction Status Date / Time pantoprazole Allergy Severe EDEMA Verified 07/03/23 23:53 FACE/LIPS/TONGUE latex Allergy Unknown ON Verified 07/04/23 00:00 [employer] MED LIST Home Medications Medication Instructions Recorded Confirmed Type albuterol sulfate 90 mcg/actuation 2 puff inhalation Q4H PRN 11/18/23 03/13/24 History aerosol inhaler (Ventolin HFA) Shortness Of Breath Or Wheezing amlodipine 5 mg tablet 5 mg PO DAILY 11/18/23 03/13/24 History citalopram 10 mg tablet 10 mg PO HS 11/18/23 03/13/24 History lorazepam 0.5 mg tablet 0.5 mg PO TID PRN Anxiety 11/18/23 03/13/24 History torsemide 100 mg tablet 100 mg PO UD 11/18/23 03/13/24 History vitamin B complex-vitamin C-folic 1 tab PO DAILY 11/18/23 03/13/24 History acid 0.8 mg tablet (Nephro-Farzana) budesonide 160 mcg-glycopyr 9 2 inh inhalation BID 03/13/24 03/13/24 History mcg-formot 4.8 mcg/actuation HFA inhaler ([employer]) Past Med/Surg History Problem List (Updated 04/14/24 @ 00:07 by Background Dadestiin) Elevated troponin (Acute) Acute hyperkalemia (Acute) Dialysis patient (Acute) Hypoxia (Acute) Volume overload Anemia in ESRD (end-stage renal disease) COPD exacerbation (Acute) Acute on chronic anemia Acute pulmonary edema End stage renal disease Aortic stenosis PAT (paroxysmal atrial tachycardia) Premature atrial complexes Bradycardia Hypertensive urgency Acute hypoxemic respiratory failure (Acute) Pulmonary edema (Acute) Pneumothorax (Acute) Demand ischemia Atypical pneumonia Hypoxia Nephrostomy status Pleural effusion (Acute) Acute dyspnea (Acute) Hypoxemia (Acute) Central venous catheter in place Anemia (Chronic) Renal failure (Acute) Chronic kidney disease (Acute) Gamboa catheter problem (Acute) UTI (urinary tract infection) (Acute) Asymptomatic hypertensive urgency Abnormal urine findings Obstructed nephrostomy tube DVT prophylaxis DNR (do not resuscitate) Encounter for pre-operative examination Tobacco use (Chronic) Chronic anemia (Chronic) Chronic indwelling Gamboa catheter (Chronic) HTN (hypertension) (Chronic) Was treated for hypertensive urgency at [facility] 11/2017 Prostate cancer (Chronic) Currently in remission. On Leupron injections. CKD (chronic kidney disease), stage V (Chronic) DIALYSIS 3 X WEEK ELENA PALMA (//MON) VIA PERMA CATH Hyperkalemia (Acute) On a K restricted diet Urinary retention (Chronic) Bladder stones (Chronic) Medical History COPD (chronic obstructive pulmonary disease) ESRD (end stage renal disease) on dialysis Bladder stones SOB (shortness of breath) Anemia Hypoxia Acute on chronic respiratory failure with hypoxia and hypercapnia AV fistula left arm Permanent central venous catheter in place Surgical History (Updated 04/14/24 @ 00:07 by Cheri Moy) History of surgery PLACEMENT OF NEPHROSTOMY TUBE Family History Other Breast cancer Lung cancer No pertinent family history Stomach cancer Social History Smoking Status: Current every day smoker Tobacco Type: Cigarettes Cigarettes Per Day: 4-5 QD; Second Hand Exposure: No; Do You Dip or Chew Tobacco: No; Hx Alcohol Use: No Hx Substance Use: No Preferred Language: Nicaraguan Communication Ability: Effective Visual Impairment: No Limitations Jukebox Coin Collector Required: No Beliefs That Will Affect Care: None marital status: Current Living Situation: Spouse Current Living Situation Comment: Home Feels Safe at Home: Yes Assistive Devices: Oxygen - Continuous Physical Exam Physical Exam: Constitutional: WD/WN, vitals as above, NAD, sitting up in bed, pleasant, conversing easily Respiratory: normal respiratory effort, lungs clear to auscultation, no wheeze, rales, rhonchi. Normal insp/exp effort, no accessory muscle use Cardiovascular: RRR, no murmur, no edema Vessels: no JVD or carotid bruit Chest: normal inspection of chest Abdomen: normal bowel sounds, soft, nontender, no hepatosplenomegaly Musculoskeletal: Slight ecchymosis present on the left arm over the fistula; bruit present with a strong thrill. Neurologic: PERRL, EOMI, accommodation nl, no face palsy, no dysarthria CN's II- XI intact bilaterally and moves all extremities Psychiatric: A+Ox3, euthymic affect Results & Data Results & Data Vital Signs (Past 12 Hours) Vital Signs Temp Pulse Pulse Resp BP BP Pulse Ox 06/10/24 14:44 73 18 172/90 H 100 06/10/24 13:20 36.8 C 78 20 164/74 H 94 O2 Del Method 06/10/24 14:44 Room Air 06/10/24 13:20 Room Air
--- NOTE | 2024-06-10 15:17 | XRay Report ---
XR chest 1V portable CLINICAL HISTORY: sob COMPARISON STUDY: 03/14/2024 FINDINGS: Stable cardiomegaly with mild pulmonary vascular congestion. Stable emphysema. There is inc reased patchy opacity at the right lung base. There is stable blunting of the costophrenic angles. No pneumothorax. IMPRESSION: 1. Emphysema. 2. Mild CHF. 3. Increased patchy opacity at the right base likely represents pneumonia superimposed on the prior l ruthie base scarring. ACT 112: Negative or not required by law. Electronically signed by: Tervin Ordaz M.D. 06/10/2024 3:16 PM
[2024-06-10] MEDS ORDERED: SODIUM CHLORIDE 0.9% 1,000 ML IV PRN (15:59)
--- NOTE | 2024-06-10 16:18 | Ultrasound Report ---
INDICATION: Arm pain. TECHNIQUE: Sonographic oro scale, color Doppler and spectral analysis of left upper extremity dialysis fistula. COMPARISON: No relevant priors. FINDINGS: Left upper extremity dialysis fistula appears patent with proper directional flow. No focal elevated peak systolic velocity demonstrated to suggest significant stenosis. IMPRESSION: Patent left upper extremity fistula. Follow-up as clinically relevant. Electronically signed by Otto Xie 06-10-2024 4:18 PM
[2024-06-10] MEDS ORDERED: ALBUTEROL HFA 8 GM INHALER INH PRN (16:28)
--- NOTE | 2024-06-10 17:27 | Nephrology Consultation ---
Date of Consultation June 10, 2024 Assessment & Plan (1) Dialysis AV fistula malfunction: still quite enlarged but + t/b; vascular duplex shows patent access; vascular surg ok's to use -neph nurse was able successfully to cannulate but still some issues with line pressures > will run best we can this evening -if issues running pt tonight will make NPO at [facility] for vascular eval in AM; may need temporary access -plan routine treatment in AM Care coordinated repeatedly w/ Cody Jordan, Teresa, dialysis RNs re timing of treatment, plans to evaluate vascular access; we are in agreement. (2) Hyperkalemia, diminished renal excretion: had insulin, albuterol, lokelma >>running on 2 K bath, large dialyzer (3) End stage renal disease: -he is not anuric but put him on fluid limit for now 1.5 L -cont renal diet -gave 20 K epo this evening since blood not able to be returned on 06/08 (4) Nephrostomy status: reported as nephroureteral catheter; draining ok; not d/w pt today; some issues with connectivity here urology saw him last admission in February and recommended if desired an overnight bag to drain the urine continuously versus emptying the tube every couple hours and as needed urology also recommended routine nephroureteral catheter around 04/2024 History of Present Illness Reason for Consultation: hyperkalemia Requesting Physician: Dr Jordan Attending Physician: Artemio Moore MD History of Present Illness 79 y/o M whom I'm asked to see for hyperkalemia is being admitted today for management of AVF malfunction. PMH includes COPD on home oxygen 2 L, R pleural effusion, hypertension, nonrheumatic aortic valve stenosis, active tobacco abuse, end-stage renal disease on hemodialysis, hx of R hydronephrosis, bladder stones, and prostate cancer w/ R nephrostomy tube, bladder stones. Also endorses symptomatic seasonal affective disorder and anxiety. He dialyzes [facility] in [place] under Dr Ramos's care > but had no tx on 06/08 d/t AVF issues, so last full tx 06/06. his arterial line infiltrated just after cannulation on 06/08 w/ pressure increases and with acute swelling of AVF from size per OP weight inspector of chino to a softball. RN was unable to return blood unfortunately on 06/08. sent to ED b/c of still very enlarged AVF after having acute dsypneic episode earlier today. RN notes pt AVF was swollen but more baseball than softball sized today. they were concerned he might not be able to dialyze safely and sent for evaluation. in the ER he had K 6.7 and received albuterol and IV insulin and lokelma; as well as calcium. denies current sob; no cough or pleuritic chest pain, no change in nephrostomy OP volumes or color/character; no n/v/d/c/abd pain. no rash. Allergies Allergy/AdvReac Type Severity Reaction Status Date / Time pantoprazole Allergy Severe EDEMA Verified 07/03/23 23:53 FACE/LIPS/TONGUE latex Allergy Unknown ON Verified 07/04/23 00:00 [employer] MED LIST Home Medications Medication Instructions Recorded Confirmed Type albuterol sulfate 90 mcg/actuation 2 puff inhalation Q4H PRN 11/18/23 03/13/24 History aerosol inhaler (Ventolin HFA) Shortness Of Breath Or Wheezing amlodipine 5 mg tablet 5 mg PO DAILY 11/18/23 03/13/24 History citalopram 10 mg tablet 10 mg PO HS 11/18/23 03/13/24 History lorazepam 0.5 mg tablet 0.5 mg PO TID PRN Anxiety 11/18/23 03/13/24 History torsemide 100 mg tablet 100 mg PO UD 11/18/23 03/13/24 History vitamin B complex-vitamin C-folic 1 tab PO DAILY 11/18/23 03/13/24 History acid 0.8 mg tablet (Nephro-Farzana) budesonide 160 mcg-glycopyr 9 2 inh inhalation BID 03/13/24 03/13/24 History mcg-formot 4.8 mcg/actuation HFA inhaler ([employer]) Patient History Medical History COPD (chronic obstructive pulmonary disease) ESRD (end stage renal disease) on dialysis Bladder stones SOB (shortness of breath) Anemia Hypoxia Acute on chronic respiratory failure with hypoxia and hypercapnia AV fistula left arm Permanent central venous catheter in place Surgical History (Updated 04/14/24 @ 00:07 by Cheri Moy) History of surgery PLACEMENT OF NEPHROSTOMY TUBE Family History Other Breast cancer Lung cancer No pertinent family history Stomach cancer Social History Smoking Status: Current every day smoker Tobacco Type: Cigarettes Cigarettes Per Day: 4-5; Second Hand Exposure: No; Do You Dip or Chew Tobacco: No; Hx Alcohol Use: No Hx Substance Use: No Preferred Language: Greek Communication Ability: Effective Visual Impairment: No Limitations Staff Engineer Required: No Beliefs That Will Affect Care: Zoroastrianism Zoroastrianism Beliefs: Muslim Denominational marital status: Current Living Situation: Spouse Current Living Situation Comment: Home Feels Safe at Home: Yes Assistive Devices: Denture - Upper, Denture - Lower and Glasses Review of Systems 2 Review of Systems: All systems reviewed & are unremarkable except as noted in HPI & below Physical Exam 2 Constitutional: well developed, well nourished, average body habitus and cooperative; no acute distress and not ill appearing Eyes: EOM intact bilaterally ENMT: Mouth: + dry oral mucous membranes Respiratory: normal respiratory effort Auscultation: + diminished lung sounds Cardiovascular: RRR, no murmur, no edema Extremities: + AV fistula (enlarged w/ + t/b; no shiny or very thin skin) Gastrointestinal (Abdomen): Inspection/Auscultation: normal bowel sounds P ercussion/Palpation: abdomen soft; abdomen nontender R nephrostomy tube Musculoskeletal: Extremities: strength 5/5 throughout Skin: no rashes, warm and dry Neurologic: uribe, fluent speech, no tremor Results & Data Vital Signs (Past 12 Hours) Vital Signs Temp Pulse Pulse Resp BP BP Pulse Ox 06/10/24 15:35 76 06/10/24 14:44 73 18 172/90 H 100 06/10/24 13:20 36.8 C 78 20 164/74 H 94 O2 Del Method 06/10/24 15:35 06/10/24 14:44 Room Air 06/10/24 13:20 Room Air Laboratory Results 06/10/24 13:35 06/10/24 13:35
[2024-06-10] MEDS: HEPARIN SOD (PORCINE) 1000 UNIT/ML IV ONE (18:03)
[2024-06-10] MEDS: HEPARIN SOD (PORCINE) 1000 UNIT/ML IV SCH (18:03)
[2024-06-10] MEDS: EPOETIN ALFA 20,000 UNITS/ML VIAL IV SCH (18:39)
[2024-06-10] MEDS: NICOTINE 14 MG/24 HR PATCH TD SCH (19:43)
[2024-06-10] MEDS: TORSEMIDE 100 MG TAB PO SCH (19:44)
[2024-06-10] MEDS: SODIUM ZIRCONIUM CYCLOSILICATE 10 GM PACKET PO SCH (20:33)
[2024-06-10] MEDS: CITALOPRAM 20 MG TAB PO SCH (20:33)
[2024-06-10 21:07] LABS: BUN Creatinine Ratio 6.4 (10-20); Calcium 8.7 mg/dl (8.6-10.3)
--- OUTSIDE RECORDS SUMMARY | 2024-06-10 21:31 | External Medical Summary | Summary of Care ---
Author Name Unknown Organization [facility] Address [address] [place] [address] Phone [phone] Care Team Providers Care Glassine Machine Tender Name Role Phone Edgar Gibbs MD Primary Care P rovider Reason for Visit * Reason Comments eRx-Medication Refill Encounter Details Date Type Department Care Team (Late st Contact Info) Description 06/01/2024 Refill Nephrology, [facility] [address] [facility] [place] [phone] Lucila Herrera MD [address] [facility] [facility] [place] [phone] Allergies Active Allergy Reactions Criticality Noted Date Comments Latex 07/19/2019 Pantoprazole Sodium Edema face/lips/tongue High 04/0 02/2014 documented as of this encounter (statuses as of 06/04/2024) Medications Cholecalciferol 2000 units Capsule Take 1 Capsule by mouth in the morning. 30 Cap 3 03/28/19 18 Active Calcium Acetate, Phos Binder, 667 MG TABSIndications:K idney disease, chronic, stage V (GFR under 15 ml/min) ([facility]) take 2 pills 3 x daily 180 Tab 11 10/27/19 19 Active Leuprolide Acetate (3 Month) 22.5 MG Subcutaneous Kit (Gobooksd) Inject 22.5 mg under the skin. Every 3 months 11/19/19 21 Active Citalopram Hydrobromide 10 MG Oral Tablet (CeleXA) Take 1 Tablet by mouth every night at bedtime. 30 Tablet 5 05/29/19 24 Active amLODIPine Besylate 5 MG Oral Tablet (Norvasc)Indicati ons: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 (HCC) Take 1 Tablet by mouth in the morning. 90 Tablet 3 09/28/19 24 Active Gill-Farzana Rx 1 MG Oral Tablet TAKE ONE TABLET BY MOUTH ONCE DAILY 90 Tablet 3 12/18/19 24 Active LORazepam 0.5 MG Oral Tablet (Ativan)Indicatio ns:Panic attack as reaction to stress Take 1 Tablet by mouth every 8 hours as needed for Anxiety. 30 Tablet 03/21/19 25 Active Normal Saline Flush 0.9 % Intravenous SolutionIndicatio ns:Nephrostomy status ([facility]) Flush 1 mL catheter daily as needed for Other (flush nephrostomy) . 100 mL 3 04/08/19 25 Active Fluticasone-Umecl idin-Vilant 100-62.5-25 MCG/ACT Aerosol Powder Breath Activated (Trelegy Ellipta)Indicatio ns:COPD, group C, by GOLD 2017 classification ([facility]) Inhale 1 Puff by mouth in the morning. 60 Blister Dosing Unit 11 04/08/19 25 Active Ventolin HFA 108 (90 Base) MCG/ACT Inhalation Aerosol SolutionIndicatio ns:COPD exacerbation ([facility]) Inhale 2 Puffs by mouth every 6 hours as needed for Cough, Shortness of Breath or Wheezing. 18 g 5 04/08/19 25 Active Torsemide 100 MG Oral Tablet (Demadex) Take 1 Tablet by mouth in the morning. 30 Tablet 5 06/05/19 25 Active Torsemide 100 MG Oral Tablet (Demadex) Take 1 Tablet by mouth in the morning. One tablet by mouth on non-dialysis days (Monday, Monday, Monday and Monday). 03/22/19 25 2024 Discontinued Torsemide 100 MG Oral Tablet (Demadex) TAKE 1 TABLET BY MOUTH ONCE DAILY IN THE MORNING 06/04/19 25 2024 Discontinued(R efill) documented as of this encounter (statuses as of 06/04/2024) Active Problems Problem Noted Date Diagnosed Date Nonrheumatic aortic valve stenosis 06/16/2023 Supplemental oxygen dependent 06/16/2023 COPD, group C, by GOLD 2017 classification 01/09 Overview: Per COPD GOLD Classification Pleural effusion, right 01/02/2023 Tobacco user 08/27/2021 Permanent central venous catheter in place 08/27 Bladder stones 08/27/2021 DNR (do not resuscitate) 01/04/2021 ESRD (end stage renal disease) on dialysis 01/04 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 09/20/2018 Dialysis patient 02/06/2018 Hydronephrosis, right 07/02/2017 Prostate cancer 03/08/2017 Kidney disease, chronic, stage V (GFR under 15 m l/min) 06/15/2015 Overview: Per CKD protocol #1 HTN, goal below 140/90 07/23/2014 Anemia in end-stage renal disease 05/06/2014 documented as of this encounter (statuses as of 06/04/2024) Resolved Problems Problem Noted Date Diagnosed Date Resolved Date Nephrostomy status 03/22/2024 5 Chronic obstructive pulmonary disease 03/02/2022 01/12/2023 Overview: Per COPD GOLD Classification Atypical pneumonia 03/02/2022 3 Demand ischemia 03/02/2022 06/03/2022 Hypoxemia 03/02/2022 06/03/2022 Chronic indwelling Gamboa catheter 08/27/2021 06/03/2022 Encounter for attention to o [...] as of this encounter (statuses as of 06/04/2024) Immunizations Name Administration Dates Next Due COVID-19 mRNA, LNP-s, No Pre serve, 2-Dose Series (Pfizer) 01/19/2021,06/10/2020,05/20/2020 Hep B Vac., Dialysis, 4 Dose , IM, 2mL (Engerix B) 12/20/2018,07/21/2018,06/19/2018 PPD 05/03/2018 Pneumococcal Conjugate Vacci ne, 20-valent ([id number]) 03/16/2022 Pneumococcal Polysaccharide PPV23 (Pneumovax) 12/28/2017 Seasonal [...] cpd smoker 4. 4-5 cpd smoker. 11/01/23. 4-5 cpd smoker. 05/13/2024. Alcohol Use Standard Drinks/Week Comments No 0 [...] ages 0-17 years) Not on file 06/16/2023 Food Insecurity Answer Date Recorded Within the past 12 months, y ou worried that your food would run out before you got the money to buy more. Patient declined Within the past 12 months, t he food you bought just didn't last and you didn't have money to get more. Patient declined Do you need food for this week? No 06/16/2023 Sex and Gender Information Value Date [...] doing errands alone such as visiting a doctor’s office or shopping? (15 years old or [...] Telephone Encounter - Lucila Herrera MD - 06/04/2024 2:10 PM EDTSigned Prescriptions: Disp Refills Torsemide 100 MG Oral Tablet (Demadex) 30 Tab*5 Sig: Take 1 Tablet by mouth in the morning.Authorizing Provider: LUCILA HERRERA * Telephone Encounter - Judy Langley RN - 06/04/2024 12:54 PM EDTPending Prescriptions: Disp Refills Torsemide 100 MG Oral Tablet (Demadex) 30 Tab*5 Sig: Take 1 Tablet by mouth in the morning.Signed Prescriptions: Disp Refills Torsemide 100 MG Oral Tablet (Demadex) Sig: TAKE 1 TABLET BY MOUTH ONCE DAILY IN THE MORNINGAuthorizing Provider: LUCILA HERRERAOrderingUser: JUDY LANGLEY * Addendum Note - Judy Langley RN - 06/04/2024 12:54 PM EDTAddended by: JUDY LANGLEY on: 06/04/2024 12:54 PM Modules accepted: Orders * Telephone Encounter - Judy Langley RN - 06/04/2024 12:53 PM EDT LMAM regarding follow up with dialysis center regarding refill. * Addendum Note - Lovely Fernández CPhT - 06/04/2024 12:45 PM EDTAddended by: LOVELY FERNÁNDEZ on: 06/04/2024 12:45 PM Modules accepted: Orders * Telephone Encounter - Lovely Fernández CPhT - 06/04/2024 12:42 PM EDT Patient's spouse calling to check on status of torsemide prescription. Caller can be reached at [phone]. Current prescription on file is listed as historical and patient has 2 tablets remaining.Please reach out to caller to advise and send a new prescription if appropriate. Thank you, Lovely Fernández CPhT Alumni Relations Manager II [facility] 06/04/2024,12:42 PM * Telephone Encounter - Shaere Burns PHARM Tech - 06/04/2024 12:39 PM EDT Pt's ec called and was transferred to the Specialty Line Thank you, Sharee Burns CPhT Spoilage Worker II [facility] 06/04/2024, 12:39 PM * Telephone Encounter - Judy Langley RN - 06/03/2024 1:21 PM EDTSigned Prescriptions: Disp Refills Torsemide 100 MG Oral Tablet (Demadex) Sig: TAKE 1 TABLET BY MOUTH ONCE DAILY IN THE MORNINGAuthorizing Provider: Sharlene HERRERA User: JUDY LANGLEY--------- * Telephone Encounter - Judy Langley RN - 06/03/2024 1:19 PM EDT Faxed to [place] [facility] documented in this encounter Plan of Treatment Upcoming Encounters Date Type Department Care Team ([facility] st Contact Info) Description 07/29/2024 10:00 AM EDT Office Visit [facility] [address] [place] [phone] Beatriz Hair PA-C [address] [facility] [place] [phone] 08/14/2024 11:00 AM EDT Appointment Interventional Radiology [facility], [facility] 1st Floor [address] [place] [phone] 09/04/2024 10:00 AM EDT Office Visit Cardiology, [facility] [address] [facility] [place] [phone] Nata West CRNP [address] [facility] [place] [phone] 11/20/2024 9:45 AM EDT Office Visit Urology, [facility] [address] [place] [phone] Travon Canales MD [address] [facility] [place] [phone] Health Maintenance Due Date Last Done Comments Adult Wellness Visit 05/18/2009 *COPD SEVERITY VERIFIED BY PFT 03/05/2022 COVID-19 Vaccine ( season) 2023 01/19/2021, 06/10/2020, 05/20/2020 Depression Screening 06/15/2024 06/16/2023 DISCUSS TOBACCO CESSATION (REFER TO SMARTSET #[id number]) 09/24/2024 09/25/2023 (Discussed), 06/03/2022 O2 ASSESSMENT COMPLETED IN PAST YEAR FOR COPD 05/13/2025 05/13/2024 DTap/Tdap Vaccines (2 - Td or Tdap) [...] on patient's age to complete this topic Meningitis B Vaccine (Bexsero/Trumemba) Aged Out No longer eligible based on [...] and were consensually agreed upon. Care Teams Glassine Machine Tender Relationship Specialty Start Date End Date Edgar Gibbs MD [address] [place] [id number] PCP - General Family Medicine 07/03/20 documented as of this encounter
--- OUTSIDE RECORDS SUMMARY | 2024-06-10 21:31 | External Medical Summary | Summary of Care ---
Author Name Unknown Organization [facility] Address [address] [facility] [place] [address] Phone [phone] Care Team Providers Care Benefits Administrator Name Role Phone Edgar Gibbs MD Primary Care P rovider Reason for Visit * Reason Comments Follow Up Return pulm. COPD. N o complaints. Encounter Details Date Type Department Care Team (Late st Contact Info) Description 05/13/2024 11:30 AM EDT Office Visit Pulmonary Medicine, [facility] [address] [facility] [place] [address] Tino Stapleton MD [address] [facility] [place] [phone] Pleural effusion, right*; Prostate cancer (HCC) Allergies Active Allergy Reactions Criticality Noted Date Comments Latex 07/19/2019 Pantoprazole Sodium Edema face/lips/tongue High 04/0 02/2014 documented as of this encounter (statuses as of 05/13/2024) Medications Cholecalciferol 2000 units Capsule Take 1 Capsule by mouth in the morning. 30 Cap 3 8 Active Calcium Acetate, Phos Binder, 667 MG TABSIndications:Ki dney disease, chronic, stage V (GFR under 15 ml/min) ([facility]) take 2 pills 3 x daily 180 Tab 11 9 Active Leuprolide Acetate (3 Month) 22.5 MG Subcutaneous Kit (Eligard) Inject 22.5 mg under the skin. Every 3 months 1 Active Citalopram Hydrobromide 10 MG Oral Tablet (CeleXA) Take 1 Tablet by mouth every night at bedtime. 30 Tablet 5 4 Active amLODIPine Besylate 5 MG Oral Tablet (Norvasc)Indicatio ns: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 ([facility]) Take 1 Tablet by mouth in the morning. 90 Tablet 3 4 Active Gill-Farzana Rx 1 MG Oral Tablet TAKE ONE TABLET BY MOUTH ONCE DAILY 90 Tablet 3 4 Active LORazepam 0.5 MG Oral Tablet (Ativan)Indication s:Panic attack as reaction to stress Take 1 Tablet by mouth every 8 hours as needed for Anxiety. 30 Tablet 5 Active Torsemide 100 MG Oral Tablet (Demadex) Take 1 Tablet by mouth in the morning. One tablet by mouth on non-dialysis days (Monday, Monday, Monday and Monday). 5 Active Normal Saline Flush 0.9 % Intravenous SolutionIndication s:Nephrostomy status ([facility]) Flush 1 mL catheter daily as needed for Other (flush nephrostomy). 100 mL 3 5 Active Fluticasone-Umecli din-Vilant 100-62.5-25 MCG/ACT Aerosol Powder Breath Activated (Trelegy Ellipta)Indication s:COPD, group C, by GOLD 2017 classification ([facility]) Inhale 1 Puff by mouth in the morning. 60 Blister Dosing Unit 11 5 Active Ventolin HFA 108 (90 Base) MCG/ACT Inhalation Aerosol SolutionIndication s:COPD exacerbation ([facility]) Inhale 2 Puffs by mouth every 6 hours as needed for Cough, Shortness of Breath or Wheezing. 18 g 5 5 Active documented as of this encounter (statuses as of 05/13/2024) Active Problems Problem Noted Date Diagnosed Date [...] as of this encounter (statuses as of 05/13/2024) Resolved Problems Problem Noted Date Diagnosed Date [...] as of this encounter (statuses as of 05/13/2024) Immunizations Name Administration Dates Next Due COVID-19 mRNA, LNP-s, No Pre serve, 2-Dose Series (Pfizer) 01/19/2021,06/10/2020,05/20/2020 Hep B Vac., Dialysis, 4 Dose , IM, 2mL (Engerix B) 12/20/2018,07/21/2018,06/19/2018 PPD 05/03/2018 Pneumococcal Conjugate Vacci ne, 20-valent ([id number]) 03/16/2022 Pneumococcal Polysaccharide PPV23 (Pneumovax) 12/28/2017 Seasonal [...] Comments:5 cpd smoker 06/14/23. 4-5 cpd smoker. 9. 4-5 cpd smoker. 05/13/2024. Alcohol Use Standard [...] Sign Reading Time Taken Comments Blood Pressure 140/76 05/13/2024 11:23 AM EDT Pulse 77 05/13/2024 11:23 AM EDT Temperature 35.7 °C (96.3 °F) 05/13/2024 11:23 AM E DT Respiratory Rate 16 05/13/2024 11:23 AM EDT Oxygen Saturation 94% 05/13/2024 11:24 AM EDT ra-amb Inhaled Oxygen Concentration - - Weight 60.8 kg (134 lb) 05/13/2024 11:23 AM EDT Height 162.6 cm (5' 4") 05/13/2024 11:23 AM EDT Body Mass Index 23 05/13/2024 11:23 AM EDT documented in this encounter Functional Status * [...] Farhana Velazco RN documented in this encounter Progress Notes * Tino Stapleton MD - 05/13/2024 11:30 AM EDT Images from the original note were not included. 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 thoracentesis by IR Lymphocytic exudative pleural fluid profile with negative cytopathology for malignancy. Current BD Rx: Breanna Fermin Physical examination significant for class 2 throat, right basilar dullness with egophony, scattered wheezing, loud systolic murmur, trace lower extremity edema and left upper extremity AV fistula status along with nonlateralizing Neuro examination. Plan: Improved CT Chest 08/2023 compared with 03/2024, trace Right basilar atelectasis and trace Rt pleural effusion. No recurrence of pleural effusion noted. Repeat CT Chest x 12 months Smoking cessation counseling Continue using O2 2 L with activity setup, Vendor [employer] C/w breanna Fermin MDI rescue inhaler Avoid sick contacts Maintain Physical Activity Status Call with Change in resp symptom status F/u 12 month Follow Up: Return in about 1 year (around 05/13/2025) for Clinic Visit. | For: Clinic Visit | Check-out note: Hx of Recurrent right pleural effusion , currently resolved CA prostate ESRD on HD, TTS Hypertension Aortic Stenosis Recurrent right pleural effusion, status post multiple [place]. G thoracentesis by IR Lymphocytic exudative pleural fluid profile with negative cytopathology for malignancy. Current BD Rx: Trelegy, Ventolin NANCY Physical examination significant for class 2 throat, right basilar dullness with egophony, scattered wheezing, loud systolic murmur, trace lower extremity edema and l Follow Up: Return in about 1 year (around 05/13/2025) for Clinic Visit. | For: Clinic Visit | Check-out note: eft upper extremity AV fistula status along with nonlateralizing Neuro examination. Plan: Improved CT Chest 08/2023, trace Right basilar atelectasis and trace Rt pleural effusion Repeat CT Chest x 12 months Smoking cessation counseling Continue using O2 2 L with activity setup, Vendor [employer] C/w Trelegy Avoid sick contacts Maintain Physical Activity Status Call with Change in resp symptom status F/u 12 month I spent a total of 30-39 minutes (exact time 35 mins) on the date of service in preparation, delivery, and documentation of the care provided to Matthew Rowe excluding any time spent in the performance of separately billed services or time spent by another provider/QHP. Tino Stapleton MD Data review: Following reports, and data as outlined below was personally reviewed and interpreted by myself. CT ABD/PELVIS WO IV/ORAL CONTRAST DATE and TIME: 04/03/2024 9:29 am HISTORY CLINICAL INFORMATION: history of bladder stones FINDINGS LUNG BASES: Patchy consolidation right lower lobe. Interstitial change. KIDNEYS/URETERS: Bilateral renal atrophy with right nephroureteral stent. No hydronephrosis BLADDER: 2 at least 5 bladder calculi the largest of which is 1.1 centimeter. BOWEL: Left inguinal hernia with normal appearing bowel and no fluid. Right inguinal hernia with fat but no bowel extending into the scrotum. IMPRESSION 1. Right lower lobe pneumonia. 2. Bilateral renal atrophy with right nephroureteral stent. No hydronephrosis. 3. Bladder calculi. 4. Bilateral inguinal hernias. Subjective CC: Chief Complaint Patient presents with Follow Up Return pulm. COPD. No complaints. HPI: Nursing Notes: Romelia Clarke LPN 05/13/24 1134 Signed Chief Complaint Patient presents with Follow Up Return pulm. COPD. No complaints. Patient-Entered [facility] 2019 Msp: Part I And Employment Question 05/13/2024 11:14 AM EDT - Filed by Patient Are you currently employed? No, Retired Date of mcc: 08/28/2019 Do you have a spouse who is currently employed? No, Retired Date of mcc: 02/27/2018 Medicare requires that we periodically ask the following questions. Are you receiving benefits under the Black Lung Benefits Act (BL)? No Was the illness/injury due to a work-related accident/condition? No Are you receiving treatment for an injury or illness covered under no-fault (and/or medical-paymentcoverage) including premises or automobile? No Are you receiving treatment for an injury, or illness, for which another constitution party may be liable? No Are you entitled to Medicare based on: Age? Yes End-stage renal disease (ESRD)? No Patient-Entered Msp: Ejq-Pmurhaeceu-Azkn Primary Branch Calculation (range: 0 - 5) 1 Do you have group health plan (GHP) coverage based on your own current employment or the employmentof your spouse? No Travel Screening Question 05/13/2024 11:14 AM EDT - Filed by Patient Do you have any of the following new or worsening symptoms? None of these Have you recently been in contact with someone who was sick? No / Unsure Myc Visit Accident Related Question Question 05/13/2024 11:14 AM EDT - Filed by Patient Is this visit related to an accident? (i.e work, motor vehicle) No Mmrc Cat Question 05/13/2024 11:23 AM EDT - Filed by Patient When do you become breathless? (1) I get short of breath when hurrying on level ground How frequently do you cough? (2) Do [...] (1) How much energy do you have? (2) Total MMRC Score (range: 0 - 4) 1 Total CAT Score (range: 0 - 40) 13 Interm History/Respiratory Symptoms Cough: yes-clear phlegm in am. Hemoptysis: no Sinus Symptoms: no Hospitalizations: 03/14-03/16- increased potassium. Dialysis and discharged him after 2 days . Per they feel because he missed one day of dialysis. ED Trips: 03/14 Triggers: pollen, grass. Cold temp. 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 Flu Vaccine: 2023 Pneumovax: 2018 Prevnar: 2024 COVID 19: x4. Objective Filed Vitals: 05/13/24 1123 05/13/24 1124 BP: 140/76 Pulse: 77 Resp: 16 Temp: 35.7 °C (96.3 °F) TempSrc: Tympanic SpO2: 97% 94% Weight: 60.8 kg (134 lb) Height: 1.626 m (5' 4") Exam: [...] the patient: IR GENITORINARY NEPHRO/CYSTO/URETERAL Result Date: 05/06/2024 IMPRESSION: Successful right nephroureteral catheter check and exchange. PLAN: Patient should return to IR in 3 months for routine maintenance catheter exchange. CT ABD/PELVIS WO IV/ORAL CONTRAST Result Date: 04/04/2024 IMPRESSION 1. Right lower lobe pneumonia. 2. Bilateral renal atrophy with right nephroureteral stent. No hydronephrosis. 3. Bladder calculi. 4. Bilateral inguinal hernias. RECOMMENDATIONS: IR GENITORINARY NEPHRO/CYSTO/URETERAL Result Date: 02/10/2024 IMPRESSION: Successful right nephroureteral catheter check and exchange. PLAN: Patient should return to IR in 3 months for routine maintenance catheter exchange. I have personally reviewed this examination and agree with the resident/fellow physician's interpretation. XR CHEST 2 VIEWS Result Date: 12/20/2023 IMPRESSION Questionable persistent small right pleural effusion versus right basilar scarring. XR CHEST 2 VIEWS Result Date: 11/17/2023 IMPRESSION 1. Stable appearing pleural based density in the periphery of the right lower lobe Available Radiologic data was reviewed by me in PACS. The images were shown to the patient and findings were discussed with the patient. HOME MEDICATIONS: Hfzvlxfgggg-Btdwflxqj-Frevre 100-62.5-25 MCG/ACT Aerosol Powder Breath Activated (Trelegy Ellipta) Normal Saline Flush 0.9 % Intravenous Solution Ventolin HFA 108 (90 Base) MCG/ACT Inhalation Aerosol Solution Torsemide 100 MG Oral Tablet (Demadex) LORazepam 0.5 MG Oral Tablet (Ativan) Gill-Farzana Rx 1 MG Oral Tablet amLODIPine Besylate 5 MG Oral Tablet (Norvasc) Citalopram Hydrobromide 10 MG Oral Tablet (CeleXA) Leuprolide Acetate (3 Month) 22.5 MG Subcutaneous Kit (Eligard) Calcium Acetate, Phos Binder, 667 MG TABS Cholecalciferol 2000 units Capsule ROS: No reported history of Hemoptysis, Hematemesis, Melena No reported history of Dysuria, Hematuria, Flank Pain No reported history of chronic headache, seizures No reported history of Fall or trauma . No reported history of recent change in weight or appetite. Past Medical History: Diagnosis Date Hypertension, essential INFORMATION 03/2014 [facility]- kidney failure Nephrostomy status (HCC) 03/22/2024 Pleural effusion Use of leuprolide acetate (Lupron) Past Surgical History: Procedure Laterality Date CYSTOSCOPY 07-08-2014 IR DRAINAGE CATHETER CHANGE Right 06/10/2015 CHANGE OF PERCUTANEOUS TUBE OR DRAINAGE CATHETER WITH XRAY AND CONTRAST MEDIUM performed by Gera Mcdaniel MD at [facility] IR DRAINAGE CATHETER CHANGE Right 08/24/2016 CHANGE OF PERCUTANEOUS TUBE OR DRAINAGE CATHETER WITH XRAY AND CONTRAST MEDIUM performed by Gera Mcdaniel MD at RAD[facility]OLOGY [facility] IR GENITORINARY NEPHRO/CYSTO/URETERAL 01/18/2019 IR GENITORINARY NEPHRO/CYSTO/URETERAL [...] GENITORINARY NEPHRO/CYSTO/URETERAL 07/19/2023 IR GENITORINARY NEPHRO/CYSTO/URETERAL 10/08/2023 IR GENITORINARY NEPHRO/CYSTO/URETERAL 02/05/2024 IR GENITORINARY NEPHRO/CYSTO/URETERAL 05/06/2024 NONE Social History Socioeconomic History Marital status: Occupational History 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 4-5 cpd smoker. 11/01/23. 4-5 cpd smoker. 05/13/2024. Vaping Use Vaping status: Never Used Substance and Sexual Activity Alcohol use: No Drug use: No Social History Narrative No pets. No mold. Social Needs Financial Resource Strain: Low Risk (06/16/2023) Financial Resource Strain Do you have any trouble paying for your medications, or do you think you might in the future? (Adult - for ages 18 years and over): No Food Insecurity: Unknown (06/16/2023) Food Insecurity Worried About Running Out of Food in the Last Year: Patient declined Ran Out of Food in the Last Year: Patient declined Do you need food for [...] Stability Do you currently live in a fpc or have no steady place to sleep [...] Nursing Notes * Romelia Clarke LPN - 05/13/2024 11:25 AM EDT Chief Complaint Patient presents with Follow Up Return pulm. COPD. No complaints. Patient-Entered [facility] 2019 Msp: Part I And Employment Question 05/13/2024 11:14 AM EDT - Filed by Patient Are you currently employed? No, Retired Date of mcc: 08/28/2019 Do you have a spouse who is currently employed? No, Retired Date of mcc: 02/27/2018 Medicare requires that we periodically ask the following questions. Are you receiving benefits under the Black Lung Benefits Act (BL)? No Was the illness/injury due to a work-related accident/condition? No Are you receiving treatment for an injury or illness covered under no-fault (and/or medical-paymentcoverage) including premises or automobile? No Are you receiving treatment for an injury, or illness, for which another constitution party may be liable? No Are you entitled to Medicare based on: Age? Yes End-stage renal disease (ESRD)? No Patient-Entered Msp: Bxp-Vlbsiaznof-Nmyl Primary Branch Calculation (range: 0 - 5) 1 Do you have group health plan (GHP) coverage based on your own current employment or the employmentof your spouse? No Travel Screening Question 05/13/2024 11:14 AM EDT - Filed by Patient Do you have any of the following new or worsening symptoms? None of these Have you recently been in contact with someone who was sick? No / Unsure Myc Visit Accident Related Question Question 05/13/2024 11:14 AM EDT - Filed by Patient Is this visit related to an accident? (i.e work, motor vehicle) No Mmrc Cat Question 05/13/2024 11:23 AM EDT - Filed by Patient When do you become breathless? (1) I get short of breath when hurrying on level ground How frequently do you cough? (2) Do [...] (1) How much energy do you have? (2) Total MMRC Score (range: 0 - 4) 1 Total CAT Score (range: 0 - 40) 13 Interm History/Respiratory Symptoms Cough: yes-clear phlegm in am. Hemoptysis: no Sinus Symptoms: no Hospitalizations: 03/14-03/16- increased potassium. Dialysis and discharged him after 2 days . Per they feel because he missed one day of dialysis. ED Trips: 03/14 Triggers: pollen, grass. Cold temp. 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 Flu Vaccine: 2023 Pneumovax: 2018 Prevnar: 2024 COVID 19: x4. documented in this encounter Plan of Treatment Upcoming Encounters Date Type Department Care Team (Late st Contact Info) Description 05/15/2024 11:00 AM EDT Nurse Only Urology, [facility] [address] [facility] [place] [address] Lance Nurse Urology [facility] [address] [facility] [place] [address] 07/29/2024 10:00 AM EDT Office Visit Family [facility] [address] [place] [phone] Beatriz Hair PA-C [address] [place] [address] 08/14/2024 11:00 AM EDT Appointment Interventional Radiology [facility], [facility] 1st Floor [address] [place] [address] 09/04/2024 10:00 AM EDT Office Visit Cardiology, [facility] [address] [facility] [place] [address] Nata West CRNP [address] [facility] [place] [address] 11/20/2024 9:45 AM EDT Office Visit Urology, [facility] [address] [facility] [place] [address] Travon Canales MD [address] [facility] [place] [address] Health Maintenance Due Date Last Done Comments [...] Pleural effusion, right- Primary Unspecified pleural effusion Prostate cancer (HCC) Malignant neoplasm of prostate documented in this encounter Advance Directives * Full Code (Latest Code Status on File) Date Activated Date Inactivated Comments 04/15/2015 4:40 PM 04/16/2015 5:24 PM This order r eflects the patients wishes and were consensually agreed upon. Care Teams Benefits Administrator Relationship Specialty Start Date End Date Edgar Gibbs MD [address] [place] [id number] PCP - General Family Medicine 07/03/20 documented as of this encounter
--- OUTSIDE RECORDS SUMMARY | 2024-06-10 21:31 | External Medical Summary | Summary of Care ---
Author Name Unknown Organization [facility] Address [address] [facility] [place] [address] Phone [phone] Care Team Providers Care Associate Scientist Name Role Phone Edgar Gibbs MD Primary Care P rovider Reason for Visit * Precert (Within 30 days (routine)) - Authorized Specialty Diagnoses / Procedures Referred By Cecilia mendieta Referred To Contact Urology Diagnoses Malignant neoplasm of prostate (HCC) Procedures [place] LEUPROLIDE ACETATE SUSPNSION Travon Canales MD [address] [place] [address] Phone: tel: fax: Travon Canales MD [address] [place] [address] Phone: tel: fax: Referral ID Status Reason Start Date Expiration Date V isits Requested Visits Authorized [id number] Authorized Precert 04/13/2023 02/26/2099 [id number] Encounter Details Date Type Department Care Team (Late st Contact Info) Description 05/15/2024 11:00 AM EDT [facility] [address] [place] [address] Nurse Lance Urology Ismael [address] [place] [address] Allergies Active Allergy Reactions Criticality Noted Date Comments Latex 07/19/2019 Pantoprazole Sodium Edema face/lips/tongue High 04/0 02/2014 documented as of this encounter (statuses as of 05/16/2024) Medications Cholecalciferol 2000 units Capsule Take 1 Capsule by mouth in the morning. 30 Cap 3 8 Active Calcium Acetate, Phos Binder, 667 MG TABSIndications:Ki dney disease, chronic, stage V (GFR under 15 ml/min) ([facility]) take 2 pills 3 x daily 180 Tab 11 9 Active Leuprolide Acetate (3 Month) 22.5 MG Subcutaneous Kit (EliSecood) Inject 22.5 mg under the skin. Every 3 months 1 Active Citalopram Hydrobromide 10 MG Oral Tablet (CeleXA) Take 1 Tablet by mouth every night at bedtime. 30 Tablet 5 4 Active amLODIPine Besylate 5 MG Oral Tablet (Norvasc)Indicatio ns: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 ([facility]) Take 1 Tablet by mouth in the [...] Flush 0.9 % Intravenous SolutionIndication s:Nephrostomy status ([facility]) Flush 1 mL catheter daily as needed for Other (flush nephrostomy). 100 mL 3 5 Active Fluticasone-Umecli din-Vilant 100-62.5-25 MCG/ACT Aerosol Powder Breath Activated (Trelegy Ellipta)Indication s:COPD, group C, by GOLD 2017 classification ([facility]) Inhale 1 Puff by mouth in the morning. 60 Blister Dosing Unit 11 5 Active Ventolin HFA 108 (90 Base) MCG/ACT Inhalation Aerosol SolutionIndication s:COPD exacerbation (HCC) Inhale 2 Puffs by mouth every 6 hours as needed for Cough, Shortness of Breath or Wheezing. 18 g 5 5 Active Hospital, Clinic, or Other Facility Administered Medication Ordered Dose Route Frequency Start Date End Date Status Leuprolide Acetate (6 Month) (Lupron) inj 45 mgIndications:Prostate cancer (HCC) 45 mg IM ONCE 05/15/2024 05/15/2024 Ended documented as of this encounter (statuses as of 05/16/2024) Active Problems Problem Noted Date Diagnosed Date [...] as of this encounter (statuses as of 05/16/2024) Resolved Problems Problem Noted Date Diagnosed Date [...] as of this encounter (statuses as of 05/16/2024) Immunizations Name Administration Dates Next Due COVID-19 mRNA, LNP-s, No Pre serve, 2-Dose Series ([employer]) 01/19/2021,06/10/2020,05/20/2020 Hep B Vac., Dialysis, 4 Dose , IM, 2mL (Engerix B) 12/20/2018,07/21/2018,06/19/2018 PPD 05/03/2018 Pneumococcal Conjugate Vacci ne, 20-valent ([id number]) 03/16/2022 Pneumococcal Polysaccharide PPV23 (Pneumovax) 12/28/2017 Seasonal [...] Farhana Velazco RN documented in this encounter Nursing Notes * Danae Gentile LPN - 05/15/2024 11:32 AM EDT Leuprolide 45 Mg was given IM in [facility] documented in this encounter Plan of Treatment Upcoming Encounters Date Type Department Care Team (Late st Contact Info) Description 07/29/2024 10:00 AM EDT Office Visit [facility] [address] [place] [address] Beatriz Hair PA-C [address] [place] [address] 08/14/2024 11:00 AM EDT Appointment Interventional Radiology [facility], [address] [place] 1st Floor [address] [place] [address] 09/04/2024 10:00 AM EDT Office Visit Cardiology, [facility] [address] [facility] [place] [address] Nata West CRNP [address] [place] [address] [place] [address] 11/20/2024 9:45 AM EDT Office Visit Urology, [facility] [address] [place] [phone] Travon Canales MD [address] [place] [address] [address] Health Maintenance Due Date Last Done Comments [...] 45 mg 45 mg, Intramuscular, ONCE, On Mon05/15/24 at 1615, For 1 doseIndications:Prostate cancer (HCC) Given 05/15/2024 4:18 PM EDT 45 mg Ventrogluteal Right documented in this encounter Advance Directives * Full Code (Latest Code Status on File) Date Activated Date Inactivated Comments 04/15/2015 4:40 PM 04/16/2015 5:24 PM This order r eflects the patients wishes and were consensually agreed upon. Care Teams Associate Scientist Relationship Specialty Start Date End Date Edgar Gibbs MD [address] [place] [address] PCP - General Family Medicine 07/03/20 documented as of this encounter
--- OUTSIDE RECORDS SUMMARY | 2024-06-10 21:31 | External Medical Summary | Summary of Care ---
Author Name Unknown Organization [facility] Address [address] [facility] [address] Phone [phone] Care Team Providers Care Director Human Services Name Role Phone Edgar Gibbs MD Primary Care P rovider Encounter Details Date Type Department Care Team (Late st Contact Info) Description 05/28/2024 Result Scan Unspecified Department Pako Ramos MD [address] [facility] [address] <No scans attached> Allergies Active Allergy Reactions Criticality Noted Date Comments Latex 07/19/2019 Pantoprazole Sodium Edema face/lips/tongue High 04/0 02/2014 documented as of this encounter (statuses as of 06/03/2024) Medications Cholecalciferol 2000 units Capsule Take 1 [...] Flush 0.9 % Intravenous SolutionIndication s:Nephrostomy status ([facility]) Flush 1 mL catheter daily as needed for Other (flush nephrostomy). 100 mL 3 5 Active Fluticasone-Umecli din-Vilant 100-62.5-25 MCG/ACT Aerosol Powder Breath Activated (Trelegy Ellipta)Indication s:COPD, group C, by GOLD 2017 classification ([facility]) Inhale 1 Puff by mouth in the morning. 60 Blister Dosing Unit 11 5 Active Ventolin HFA 108 (90 Base) MCG/ACT Inhalation Aerosol SolutionIndication s:COPD exacerbation ([facility]) Inhale 2 Puffs by mouth every 6 hours as needed for Cough, Shortness of Breath or Wheezing. 18 g 5 5 Active documented as of this encounter (statuses as of 06/03/2024) Active Problems Problem Noted Date Diagnosed Date [...] as of this encounter (statuses as of 06/03/2024) Resolved Problems Problem Noted Date Diagnosed Date [...] as of this encounter (statuses as of 06/03/2024) Immunizations Name Administration Dates Next Due COVID-19 mRNA, LNP-s, No Pre serve, 2-Dose Series (Pfizer) 01/19/2021,06/10/2020,05/20/2020 Hep B Vac., Dialysis, 4 Dose , IM, 2mL (Engerix B) 12/20/2018,07/21/2018,06/19/2018 PPD 05/03/2018 Pneumococcal Conjugate Vacci ne, 20-valent ([id number]) 03/16/2022 Pneumococcal Polysaccharide PPV23 (Pneumovax) 12/28/2017 Seasonal [...] No 06/16/2023 Does the household have a [facility] source of income? (Household - for [...] Description 07/29/2024 10:00 AM EDT Office Visit [address] [address] Beatriz Hair PA-C [address] [place] [address] 08/14/2024 11:00 AM EDT Appointment Interventional Radiology [facility] [place] [address] 1st Floor [address] [place] [address] 09/04/2024 10:00 AM EDT Office Visit Cardiology, [facility] [address] [place] [phone] Nata West CRNP [address] [place] [address] 11/20/2024 9:45 AM EDT Office Visit Urology, [facility] [address] [place] [phone] Travon Canales MD [address] [place] [address] Health Maintenance Due Date Last Done [...] Date/Time Associated Diagnosis Comments OUTSIDE LAB RESULTS 05/28/2024 documented in this encounter Results * OUTSIDE LAB RESULTS (05/28/2024) 05/28/2024 Pako Ramos MD LABORATORY Final Result documented in this encounter Advance Directives * Full Code (Latest Code Status on File) Date Activated Date Inactivated Comments 04/15/2015 4:40 PM 04/16/2015 5:24 PM This order r eflects the patients wishes and were consensually agreed upon. Care Teams Director Human Services Relationship Specialty Start Date End Date Edgar Gibbs MD [address] [place] [address] PCP - General Family Medicine 07/03/20 documented as of this encounter
--- OUTSIDE RECORDS SUMMARY | 2024-06-10 21:31 | External Medical Summary | Summary of Care ---
Author Name Unknown Organization [facility] Address [address] [facility] [place] [address] Phone [phone] Care Team Providers Care Mental Health Assistant Name Role Phone Edgar Gibbs MD Primary Care P rovider Reason for Visit * Reason Comments eRx-Medication Refill Encounter Details Date Type Department Care Team (Late st Contact Info) Description 06/01/2024 Refill Nephrology, [facility] 200 [facility] [place] [address] Pako Herrera MD 200 [facility] [place] [address] Allergies Active Allergy Reactions Criticality Noted Date Comments Latex 07/19/2019 Pantoprazole Sodium Edema face/lips/tongue High 04/0 02/2014 documented as of this encounter (statuses as of 06/03/2024) Medications Cholecalciferol 2000 units Capsule Take 1 Capsule by mouth in the morning. 30 Cap 3 03/28/19 18 Active Calcium Acetate, Phos Binder, 667 MG TABSIndications:K idney disease, chronic, stage V (GFR under 15 ml/min) ([facility]) take 2 pills 3 x daily 180 Tab 11 10/27/19 19 Active Leuprolide Acetate (3 Month) 22.5 MG Subcutaneous Kit ([facility]) Inject 22.5 mg under the skin. Every [...] Flush 0.9 % Intravenous SolutionIndicatio ns:Nephrostomy status ([facility]) Flush 1 mL catheter daily as needed for Other (flush nephrostomy) . 100 mL 3 04/08/19 25 Active Fluticasone-Umecl idin-Vilant 100-62.5-25 MCG/ACT Aerosol Powder Breath Activated (Trelegy Ellipta)Indicatio ns:COPD, group C, by GOLD 2017 classification ([facility]) Inhale 1 Puff by mouth in the morning. 60 Blister Dosing Unit 11 04/08/19 25 Active Ventolin HFA 108 (90 Base) MCG/ACT Inhalation Aerosol SolutionIndicatio ns:COPD exacerbation ([facility]) Inhale 2 Puffs by mouth every 6 hours as needed for Cough, Shortness of Breath or Wheezing. 18 g 5 04/08/19 25 Active Torsemide 100 MG Oral Tablet (Demadex) TAKE 1 TABLET BY MOUTH ONCE DAILY IN THE MORNING 06/04/19 25 Active Torsemide 100 MG Oral Tablet (Demadex) Take 1 Tablet by mouth in the morning. One tablet by mouth on non-dialysis days (Monday, Monday, Monday and Monday). 03/22/19 25 025 Discontinued documented as of this encounter (statuses as of 06/03/2024) Active Problems Problem Noted Date Diagnosed Date Nonrheumatic aortic valve stenosis 06/16/2023 Supplemental oxygen dependent 06/16/2023 COPD, group C, by GOLD 2017 classification 11/13 /2023 Overview: Per COPD GOLD Classification Pleural effusion, [...] PPD 05/03/2018 Pneumococcal Conjugate Vacci ne, 20-valent ([id number]) 03/16/2022 Pneumococcal Polysaccharide PPV23 (Pneumovax) 12/28/2017 Seasonal [...] Miscellaneous Notes * Telephone Encounter - Judy Langley RN - 06/03/2024 1:21 PM EDTSigned Prescriptions: Disp Refills Torsemide 100 MG Oral Tablet (Demadex) Sig: TAKE 1 TABLET BY MOUTH ONCE DAILY IN THE MORNINGAuthorizing Provider: Sharlene HERRERA User: JUDY LANGLEY--------- * Telephone Encounter - Judy Langley RN - 06/03/2024 1:19 PM EDT Faxed to [facility] documented in this encounter Plan of Treatment Upcoming Encounters Date Type Department Care Team ([facility] Contact Info) Description 07/29/2024 10:00 AM EDT Office Visit [facility] [address] [place] [address] Beatriz Hair PA-C [address] [place] [address] 08/14/2024 11:00 AM EDT Appointment Interventional Radiology [facility], [facility] 1st Floor [address] [place] [address] 09/04/2024 10:00 AM EDT Office Visit Cardiology, [facility] [address] [place] [phone] Nata West CRNP 400 [facility] [place] [address] 11/20/2024 9:45 AM EDT Office Visit Urology, [facility] [address] [place] [phone] Travon Canales MD [address] [place] [phone] Health Maintenance Due Date Last Done Comments [...] and were consensually agreed upon. Care Teams Mental Health Assistant Relationship Specialty Start Date End Date Edgar Gibbs MD [address] [place] [address] [place] [address] PCP - General Family Medicine 07/03/20 documented as of this encounter
--- OUTSIDE RECORDS SUMMARY | 2024-06-10 21:31 | External Medical Summary | Summary of Care ---
Author Name Unknown Organization [facility] Address [address] [facility] [place] [address] Phone [phone] Care Team Providers Care Fisher Troll Line Name Role Phone Edgar Gibbs MD Primary Care P rovider Encounter Details Date Type Department Care Team (Late st Contact Info) Description 05/14/2024 Result Scan Unspecified Department <No scans attached> Allergies Active Allergy Reactions Criticality Noted Date Comments Latex 07/19/2019 Pantoprazole Sodium Edema face/lips/tongue High 04/0 02/2014 documented as of this encounter (statuses as of 05/20/2024) Medications Cholecalciferol 2000 units Capsule Take 1 Capsule by mouth in the morning. 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 100 mL 3 5 Active Fluticasone-Umecli din-Vilant 100-62.5-25 MCG/ACT Aerosol Powder Breath Activated (Trelegy Ellipta)Indication s:COPD, group C, by GOLD 2017 classification ([facility]) Inhale 1 Puff by mouth in the morning. 60 Blister Dosing Unit 11 5 Active Ventolin HFA 108 (90 Base) MCG/ACT Inhalation Aerosol SolutionIndication s:COPD exacerbation ([facility]) Inhale 2 Puffs by mouth every 6 hours as needed for Cough, Shortness of Breath or Wheezing. 18 g 5 5 Active documented as of this encounter (statuses as of 05/20/2024) Active Problems Problem Noted Date Diagnosed Date [...] as of this encounter (statuses as of 05/20/2024) Resolved Problems Problem Noted Date Diagnosed Date [...] as of this encounter (statuses as of 05/20/2024) Immunizations Name Administration Dates Next Due COVID-19 mRNA, LNP-s, No Pre serve, 2-Dose Series (Pfizer) 01/19/2021,06/10/2020,05/20/2020 Hep B Vac., Dialysis, 4 Dose , IM, 2mL (Engerix B) 12/20/2018,07/21/2018,06/19/2018 PPD 05/03/2018 Pneumococcal Conjugate Vacci ne, 20-valent ([id number]) 03/16/2022 Pneumococcal Polysaccharide PPV23 (Pneumovax) 12/28/2017 Seasonal [...] Description 07/29/2024 10:00 AM EDT Office Visit Family [facility] [address] [place] [address] Beatriz Hair PA-C [address] [place] [address] 08/14/2024 11:00 AM EDT Appointment Interventional Radiology [facility] [place], [address] [place] [address] 09/04/2024 10:00 AM EDT Office Visit Cardiology, [facility] [address] [place] [phone] Nata West CRNP 400 [facility] [place] [address] 11/20/2024 9:45 AM EDT Office Visit Urology, [facility] [address] [place] [phone] Travon Canales MD [address] [place] [address] Health Maintenance Due Date [...] Date/Time Associated Diagnosis Comments OUTSIDE LAB RESULTS 05/14/2024 documented in this encounter Results * OUTSIDE LAB RESULTS (05/14/2024) 05/14/2024 us No Physician Data Unknown LABORATORY Final Result documented in this encounter Advance Directives * Full Code (Latest Code Status on File) Date Activated Date Inactivated Comments 04/15/2015 4:40 PM 04/16/2015 5:24 PM This order r eflects the patients wishes and were consensually agreed upon. Care Teams Fisher Troll Line Relationship Specialty Start Date End Date Edgar Gibbs MD [address] [place] [address] PCP - General Family Medicine 07/03/20 documented as of this encounter
--- OUTSIDE RECORDS SUMMARY | 2024-06-10 21:31 | External Medical Summary | Summary of Care ---
Author Name Unknown Organization [facility] Address [address] [facility] [place] [address] Phone [phone] Care Team Providers Care Afterschool Name Role Phone Edgar Gibbs MD Primary Care P rovider Reason for Visit * Reason Comments eRx-Medication Refill Encounter Details Date Type Department Care Team (Late st Contact Info) Description 06/01/2024 Refill Nephrology, [facility] 200 [facility] [place] [address] Lucila Herrera MD 200 [facility] [place] [address] Allergies Active Allergy Reactions Criticality Noted Date Comments Latex 07/19/2019 Pantoprazole Sodium Edema face/lips/tongue High 04/0 02/2014 documented as of this encounter (statuses as of 06/04/2024) Medications Cholecalciferol 2000 units Capsule Take 1 Capsule by mouth in the morning. 30 Cap 3 03/28/19 18 Active Calcium Acetate, Phos Binder, 667 MG TABSIndications:K idney disease, chronic, stage V (GFR under 15 ml/min) ([facility]) take 2 pills 3 x daily 180 Tab 11 10/27/19 19 Active Leuprolide Acetate (3 Month) 22.5 MG Subcutaneous Kit (Sunlotd) Inject 22.5 mg under the skin. Every [...] % Intravenous SolutionIndicatio ns:Nephrostomy status ([facility]) Flush 1 mL catheter daily as needed for Other (flush nephrostomy) . 100 mL 3 04/08/19 25 Active Fluticasone-Umecl idin-Vilant 100-62.5-25 MCG/ACT Aerosol Powder Breath Activated (Trelegy Ellipta)Indicatio ns:COPD, group C, by GOLD 2017 classification ([facility]) Inhale 1 Puff by mouth in the morning. 60 Blister Dosing Unit 11 04/08/19 25 Active Ventolin HFA 108 (90 Base) MCG/ACT Inhalation Aerosol SolutionIndicatio ns:COPD exacerbation ([facility]) Inhale 2 Puffs by mouth [...] PPD 05/03/2018 Pneumococcal Conjugate Vacci ne, 20-valent ([id number]) 03/16/2022 Pneumococcal Polysaccharide PPV23 (Pneumovax) 12/28/2017 Seasonal [...] torsemide prescription. Caller can be reached at [phone]. Current prescription on file is listed as historical and patient has 2 tablets remaining.Please reach out to caller to advise and send a new prescription if appropriate. Thank you, Lovely Fernández CPhT Industrial Training Specialist II [facility] ([facility]) 06/04/2024,12:42 PM * Telephone Encounter - Sharee Burns PHARM Tech - 06/04/2024 12:39 PM EDT Pt's ec called and was transferred to the Specialty Line Thank you, Sharee Burns CPhT Biomedical Electronics Technician II [facility] ([facility]) 06/04/2024, 12:39 PM * Telephone Encounter - Judy Langley RN - 06/03/2024 1:21 PM EDTSigned Prescriptions: Disp Refills Torsemide 100 MG Oral Tablet (Demadex) Sig: TAKE 1 TABLET BY MOUTH ONCE DAILY IN THE MORNINGAuthorizing Provider: Sharlene HERRERA User: JUDY LANGLEY--------- * Telephone Encounter - Judy Langley RN - 06/03/2024 1:19 PM EDT Faxed to [place] [facility] documented in this encounter Plan of Treatment Upcoming Encounters Date Type Department Care Team ([facility] st Contact Info) Description 07/29/2024 10:00 AM EDT Office Visit [facility] [place] [address] Beatriz Hair PA-C [address] [facility] [place] [address] 08/14/2024 11:00 AM EDT Appointment Interventional Radiology [facility] [place] [facility] 1st Floor [address] [place] [address] 09/04/2024 10:00 AM EDT Office Visit Cardiology, [facility] 132 [facility] [place] [phone] Nata West CRNP 400 [facility] [place] [address] 11/20/2024 9:45 AM EDT Office Visit Urology, [facility] [address] [place] [phone] Travon Canales MD 27 [facility] [place] [phone] Health Maintenance Due Date Last Done Comments [...] and were consensually agreed upon. Care Teams Afterschool Relationship Specialty Start Date End Date Edgar Gibbs MD [address] [place] [address] PCP - General Family Medicine 07/03/20 documented as of this encounter
--- OUTSIDE RECORDS SUMMARY | 2024-06-10 21:31 | External Medical Summary | Summary of Care ---
Author Name Unknown Organization [facility] Address [address] [facility] [place] [address] Phone [phone] Care Team Providers Care Actuarial Intern Name Role Phone Edgar Gibbs MD Primary Care P rovider Reason for Visit * Reason Comments eRx-Medication Refill Encounter Details Date Type Department Care Team (Late st Contact Info) Description 06/01/2024 Refill Nephrology, [facility] 200 [facility] [place] [address] Lucila Herrera MD 200 [facility] [place] [address] Allergies Active Allergy Reactions Criticality Noted Date [...] Acetate (3 Month) 22.5 MG Subcutaneous Kit (Tour Raiserd) Inject 22.5 mg under the skin. Every [...] % Intravenous SolutionIndicatio ns:Nephrostomy status ([facility]) Flush 1 mL catheter daily as needed for Other (flush nephrostomy) . 100 mL 3 04/08/19 25 Active Fluticasone-Umecl idin-Vilant 100-62.5-25 MCG/ACT Aerosol Powder Breath Activated (Trelegy Ellipta)Indicatio ns:COPD, group C, by GOLD 2017 classification ([facility]) Inhale 1 Puff by mouth in the morning. 60 Blister Dosing Unit 11 04/08/19 25 Active Ventolin HFA 108 (90 Base) MCG/ACT Inhalation Aerosol SolutionIndicatio ns:COPD exacerbation ([facility]) Inhale 2 Puffs by mouth every 6 [...] PPD 05/03/2018 Pneumococcal Conjugate Vacci ne, 20-valent ([id number]) 03/16/2022 Pneumococcal Polysaccharide PPV23 (Pneumovax) 12/28/2017 Seasonal [...] torsemide prescription. Caller can be reached at [phone]. Current prescription on file is listed as historical and patient has 2 tablets remaining.Please reach out to caller to advise and send a new prescription if appropriate. Thank you, Lovely Fernández CPhT Windows Laptop Technician II [facility] ([facility]) 06/04/2024,12:42 PM * Telephone Encounter - hSaree Burns PHARM Tech - 06/04/2024 12:39 PM EDT Pt's ec called and was transferred to the Specialty Line Thank you, Sharee Burns CPhT Service Inspector II [facility] ([facility]) 06/04/2024, 12:39 PM * Telephone Encounter - Judy Langley RN - 06/03/2024 1:21 PM EDTSigned Prescriptions: Disp Refills Torsemide 100 MG Oral Tablet (Demadex) Sig: TAKE 1 TABLET BY MOUTH ONCE DAILY IN THE MORNINGAuthorizing Provider: Sahrlene HERRERA User: JUDY LANGLEY--------- * Telephone Encounter - Judy Langley RN - 06/03/2024 1:19 PM EDT Faxed to [place] [facility] documented in this encounter Plan of Treatment Upcoming Encounters Date Type Department Care Team ([facility] st Contact Info) Description 07/29/2024 10:00 AM EDT Office Visit [facility] [place] [address] Beatriz Hair PA-C [facility] [place] [address] 08/14/2024 11:00 AM EDT Appointment Interventional Radiology [facility] [place], [facility] 1st Floor [address] [place] [address] 09/04/2024 10:00 AM EDT Office Visit Cardiology, [facility] 132 [facility] [place] [phone] Nata West CRNP 400 [facility] [place] [address] 11/20/2024 9:45 AM EDT Office Visit Urology, [facility] [address] [place] [phone] Travon Canales MD 27 [facility] [place] [phone] Health Maintenance Due Date Last Done Comments [...] and were consensually agreed upon. Care Teams Actuarial Intern Relationship Specialty Start Date End Date Edgar Gibbs MD [address] [place] [address] PCP - General Family Medicine 07/03/20 documented as of this encounter
--- OUTSIDE RECORDS SUMMARY | 2024-06-10 21:32 | External Medical Summary | Summary of Care ---
Author Name Unknown Organization [facility] Address [address] [facility] [address] Phone [phone] Care Team Providers Care Security Monitor Name Role Phone Edgar Gibbs MD Primary Care P rovider Encounter Details Date Type Department Care Team (Late st Contact Info) Description 03/19/2024 Result Scan Unspecified Department Pako Ramos MD [address] [facility] [place] [address] <No scans attached> Allergies Active Allergy Reactions Criticality Noted Date Comments Latex 07/19/2019 Pantoprazole Sodium Edema face/lips/tongue High 04/0 02/2014 documented as of this encounter (statuses as of 03/25/2024) Medications Cholecalciferol 2000 units Capsule Take 1 [...] Acetate (3 Month) 22.5 MG Subcutaneous Kit ([employer]) Inject 22.5 mg under the skin. Every 3 months 1 Active Ventolin HFA 108 (90 Base) MCG/ACT Inhalation Aerosol SolutionIndicatio ns:COPD exacerbation ([facility]) INHALE TWO PUFFS BY MOUTH EVERY 4 HOURS NEEDED FOR COUGH, SHORTNESS OF BREATH, OR WHEEZING 18 g 5 3 Active Citalopram Hydrobromide 10 MG Oral Tablet [...] as of this encounter (statuses as of 03/25/2024) Active Problems Problem Noted Date Diagnosed Date Nephrostomy status 03/22/2024 Nonrheumatic aortic valve stenosis 06/16/2023 Supplemental oxygen [...] as of this encounter (statuses as of 03/25/2024) Resolved Problems Problem Noted Date Diagnosed Date [...] as of this encounter (statuses as of 03/25/2024) Immunizations Name Administration Dates Next Due COVID-19 mRNA, LNP-s, No Pre serve, 2-Dose Series (Pfizer) 01/19/2021,06/10/2020,05/20/2020 Hep B Vac., Dialysis, 4 Dose , IM, 2mL (Engerix B) 12/20/2018,07/21/2018,06/19/2018 PPD 05/03/2018 Pneumococcal Conjugate Vacci ne, 20-valent ([id number]) 03/16/2022 Pneumococcal Polysaccharide PPV23 (Pneumovax) 12/28/2017 Seasonal [...] No 06/16/2023 Does the household have a [facility] source of income? (Household - for [...] Care Team (Late st Contact Info) Description 04/03/2024 9:30 AM EST Imaging Radiology [address] 132 [facility] [place] [address] 04/08/2024 10:40 AM EST Office Visit [address] [phone] Edgar Gibbs MD [address] [place] [address] 04/10/2024 9:15 AM EST Office Visit Urology, [facility] 132 [facility] [place] [address] Travon Canales MD [address] [place] [address] 04/12/2024 9:30 AM EST Office Visit Cardiology, [facility] 132 [facility] [place] [address] Gris Alford CRNP 132 [facility] [place] [address] 05/01/2024 12:00 PM EST Office Visit Pulmonary Medicine, [facility] 132 [facility] [place] [address] Tino Stapleton MD [address] [place] [address] 05/06/2024 11:00 AM EDT Appointment Interventional Radiology [facility] [place], [address] 1st Floor [address] [place] [address] Health Maintenance Due Date Last Done Comments Adult Wellness Visit 05/18/2009 *COPD SEVERITY VERIFIED BY PFT 03/05/2022 COVID-19 Vaccine ( season) 2023 01/19/2021, 06/10/2020, 05/20/2020 Depression Screening 06/15/2024 06/16/2023 DISCUSS TOBACCO CESSATION (REFER TO SMARTSET #3291) 09/24/2024 09/25/2023 (Discussed), 06/03/2022 O2 ASSESSMENT COMPLETED IN PAST YEAR FOR COPD 03/22/2025 03/22/2024 DTap/Tdap Vaccines (2 - Td or Tdap) [...] Date/Time Associated Diagnosis Comments OUTSIDE LAB RESULTS 03/19/2024 documented in this encounter Results * OUTSIDE LAB RESULTS (03/19/2024) 03/19/2024 Pako Ramos MD LABORATORY Final Result documented in this encounter Advance Directives * Full Code (Latest Code Status on File) Date Activated Date Inactivated Comments 04/15/2015 4:40 PM 04/16/2015 5:24 PM This order r eflects the patients wishes and were consensually agreed upon. Care Teams Security Monitor Relationship Specialty Start Date End Date Edgar Gibbs MD [address] [place] [address] PCP - General Family Medicine 07/03/20 documented as of this encounter
--- OUTSIDE RECORDS SUMMARY | 2024-06-10 21:32 | External Medical Summary | Summary of Care ---
Author Name Unknown Organization [facility] Address [address] [facility] [place] [address] Phone [phone] Care Team Providers Care Offset Label Rewinder Name Role Phone Edgar Gibbs MD Primary Care P rovider Encounter Details Date Type Department Care Team (Late st Contact Info) Description 03/21/2024 Population Health External Data Unspecified Department Allergies Active Allergy Reactions Criticality Noted Date Comments Latex 07/19/2019 Pantoprazole Sodium Edema face/lips/tongue High 04/0 02/2014 documented as of this encounter (statuses as of 03/21/2024) Medications Cholecalciferol 2000 units Capsule Take 1 [...] exacerbation ([facility]) INHALE TWO PUFFS BY MOUTH EVERY 4 [...] the morning. 90 Tablet 3 4 Active Budeson-Glycopyrro l-Formoterol 160-9-4.8 MCG/ACT Inhalation AerosolIndications :COPD, group C, by GOLD 2017 classification ([facility]) Inhale 2 Puffs by mouth in the [...] needed for Anxiety. 30 Tablet 5 Active documented as of this encounter (statuses as of 03/21/2024) Active Problems Problem Noted Date Diagnosed Date [...] as of this encounter (statuses as of 03/21/2024) Resolved Problems Problem Noted Date Diagnosed Date [...] as of this encounter (statuses as of 03/21/2024) Immunizations Name Administration Dates Next Due COVID-19 mRNA, LNP-s, No Pre serve, 2-Dose Series ([employer]) 01/19/2021,06/10/2020,05/20/2020 Hep B Vac., Dialysis, 4 Dose , IM, 2mL (Engerix B) 12/20/2018,07/21/2018,06/19/2018 PPD 05/03/2018 Pneumococcal Conjugate Vacci ne, 20-valent ([id number]) 03/16/2022 Pneumococcal Polysaccharide PPV23 (Pneumovax) 12/28/2017 Seasonal [...] 06/16/2023 Does the household have a [facility] source of income? (Household [...] Care Team (Late st Contact Info) Description 03/22/2024 2:00 PM EST Office Visit [facility] [address] [place] [phone] Camila Herron MD [address] [place] [address] 04/03/2024 9:30 AM EST Imaging Radiology [address] [place] [phone] 04/08/2024 10:40 AM EST Office Visit [facility] [address] [place] [phone] Edgar Gibbs MD [address] [place] [address] 04/10/2024 9:15 AM EST Office Visit Urology, [facility] [address] [facility] [place] [address] Travon Canales MD [address] [place] [address] 04/12/2024 9:30 AM EST Office Visit Cardiology, [facility] [address] [facility] [place] [address] Gris Alford CRNP [address] [facility] [place] [address] 05/01/2024 12:00 PM EST Office Visit Pulmonary Medicine, [facility] [address] [facility] [place] [address] Tino Stapleton MD [address] [facility] [address] 05/06/2024 11:00 AM EDT Appointment Interventional Radiology [facility] 1st Floor [address] [place] [address] Health Maintenance Due Date Last [...] and were consensually agreed upon. Care Teams Offset Label Rewinder Relationship Specialty Start Date End Date Edgar Gibbs MD [address] [place] [id number] PCP - General Family Medicine 07/03/20 documented as of this encounter
--- OUTSIDE RECORDS SUMMARY | 2024-06-10 21:32 | External Medical Summary | Summary of Care ---
Author Name Unknown Organization [facility] Address [address] [facility] [address] Phone [phone] Care Team Providers Care [employer] Business Manager Name Role Phone Edgar Gibbs MD Primary Care P rovider Reason for Visit * Reason Comments Follow Up Pt is here today for 6 month check upNo new concerns at this time Encounter Details Date Type Department Care Team (Latest Contact Info) Description 04/08/2024 10:40 AM EST Office Visit [address] [phone] Edgar Gibbs MD [address] [place] [phone] ESRD (end stage renal disease) on dialysis ([facility])*; COPD, group C, by GOLD 2017 classification ([facility]); Nonrheumatic aortic valve stenosis; Nephrostomy status ([facility]); Supplemental oxygen dependent; 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 ([facility]); Tobacco user; Prostate cancer ([facility]); COPD exacerbation ([facility]) Allergies Active Allergy Reactions Criticality Noted Date Comments Latex 07/19/2019 Pantoprazole Sodium Edema face/lips/tongue High 04/0 02/2014 documented as of this encounter (statuses as of 04/09/2024) Medications Cholecalciferol 2000 units Capsule Take 1 [...] end stage chronic kidney disease on dialysis ([facility]) Take 1 Tablet by mouth in the morning. 90 Tablet 3 09/28/19 24 Active Gill-Farzana Rx 1 MG Oral Tablet TAKE ONE TABLET BY MOUTH ONCE DAILY 90 Tablet 3 12/18/19 24 Active LORazepam 0.5 MG Oral Tablet (Ativan)Indication s:Panic attack as reaction to stress Take 1 Tablet by mouth every 8 hours as needed for Anxiety. 30 Tablet 03/21/19 25 Active Torsemide 100 MG Oral Tablet (Demadex) Take 1 Tablet by mouth in the morning. One tablet by mouth on non-dialysis days (Monday, Monday, Monday and Monday). 03/22/19 25 Active Normal Saline Flush 0.9 % Intravenous SolutionIndication s:Nephrostomy status ([facility]) Flush 1 mL catheter daily as needed for Other (flush nephrostomy). 100 mL 3 04/08/19 25 Active Fluticasone-Umecli din-Vilant 100-62.5-25 MCG/ACT Aerosol Powder Breath Activated (Trelegy Ellipta)Indication s:COPD, group C, by GOLD 2017 classification ([facility]) Inhale 1 Puff by mouth in the morning. 60 Blister Dosing Unit 11 04/08/19 25 Active Ventolin HFA 108 (90 Base) MCG/ACT Inhalation Aerosol SolutionIndication s:COPD exacerbation ([facility]) Inhale 2 Puffs by mouth every 6 hours as needed for Cough, Shortness of Breath or Wheezing. 18 g 5 04/08/19 25 Active Sodium Chloride Flush (NORMAL SALINE FLUSH) 0.9 % SOLN injection FLUSH ONCE DAILY WITH 10ml 300 mL 1 03/12/19 20 025 Discontin ued(Refil l) Ventolin HFA 108 (90 Base) MCG/ACT Inhalation Aerosol SolutionIndication s:COPD exacerbation (HCC) INHALE TWO PUFFS BY MOUTH EVERY 4 HOURS NEEDED FOR COUGH, SHORTNESS OF BREATH, OR WHEEZING 18 g 5 01/21/20 23 025 Discontin ued(Refil l) Fluticasone-Umecli din-Vilant 100-62.5-25 MCG/ACT Aerosol Powder Breath Activated (Trelegy Ellipta)Indication s:COPD, group C, by GOLD 2017 classification (HCC) Inhale 1 Puff by mouth in the morning. 60 Blister Dosing Unit 3 03/22/19 25 025 Discontin ued(Refil l) documented as of this encounter (statuses as of 04/09/2024) Active Problems Problem Noted Date Diagnosed Date [...] as of this encounter (statuses as of 04/09/2024) Resolved Problems Problem Noted Date Diagnosed Date Resolved Date Nephrostomy status 03/22/2024 Chronic obstructive pulmonary disease 03/02/2022 01/12/2023 Overview: [...] as of this encounter (statuses as of 04/09/2024) Immunizations Name Administration Dates Next Due COVID-19 mRNA, LNP-s, No Pre serve, 2-Dose Series ([employer]) 01/19/2021,06/10/2020,05/20/2020 Hep B Vac., Dialysis, 4 Dose , IM, 2mL (Engerix B) 12/20/2018,07/21/2018,06/19/2018 PPD 05/03/2018 Pneumococcal Conjugate Vacci ne, 20-valent ([id number]) 03/16/2022 Pneumococcal Polysaccharide PPV23 (Pneumovax) 12/28/2017 Seasonal [...] Sign Reading Time Taken Comments Blood Pressure 146/72 04/08/2024 10:40 AM EST Pulse 78 04/08/2024 10:40 AM EST Temperature 36.7 °C (98 °F) 04/08/2024 10:40 AM EST Respiratory Rate 18 04/08/2024 10:40 AM EST Oxygen Saturation 99% 04/08/2024 10:40 AM EST Inhaled Oxygen Concentration - - Weight 60.1 kg (132 lb 6.4 oz) 04/08/2024 10:40 AM EST Height - - Body Mass Index 22.72 03/22/2024 2:00 PM EST documented in this encounter Functional Status * [...] Progress Notes * Edgar Gibbs MD - 04/08/2024 11:08 AM EST Subjective: Matthew Rowe is a 78 year old male. Chief Complaint Patient presents with Follow Up Pt is here today for 6 month check up No new concerns at this time Text in this note was generated using an [employer] documentation service. I discussed the use of a device to record and summarize our discussion today. All persons present during the encounter consented to its use. HPI: History of Present Illness Matthew Rowe is an 78 year old male with chronic obstructive pulmonary disease who presents forfollow-up after a recent hospital admission. He is accompanied by his . He was previously using a Breztri inhaler for COPD management but will switch back to Trelegy due to insurance formulary changes. He uses supplemental oxygen at night and occasionally during the day,particularly in cold weather or during exertion, such as shoveling snow. He has not recently used his rescue inhaler but keeps it available for emergencies. He has a nephrostomy tube and performs saline flushes every other day to maintain it. He ensures the nephrostomy site remains dry and covered during showers. He is on dialysis three times a week (Tuesdays, , and Saturdays) and takes amlodipine 5 mg, citalopram 10 mg at bedtime, and clonazepam as needed. There have been no changes in his blood pressure medication, and he has not experienced recent issues with his blood pressure, although it was slightly elevated today. His last PSA reading was 0.36, which is within the normal range. He had a recent emergency room visit due to high potassium levels after missing a dialysis session.He was treated with intravenous medications to lower his potassium, and nitroglycerin paste was applied as a precaution, though he did not experience chest pain. He had a pleural catheter for a pleural effusion, which has been removed. He has no current issues with his lungs and mentions a recent CT scan that showed some residual pneumonia changes but no pleural effusion. He has a history of community-acquired pneumonia, which was treated with antibiotics. He reports improvement in symptoms and no current respiratory issues. No trouble swallowing, heartburn, constipation, diarrhea, or urinary issues. He has a good appetiteand no difficulty sleeping. He notes a history of a heart murmur, which was mentioned during his last hospital visit. PMH: Patient Active Problem List Diagnosis Anemia in end-stage renal disease ([facility]) HTN, goal below 140/90 Kidney disease, chronic, stage V (GFR under 15 ml/min) ([facility]) Prostate cancer ([facility]) Hydronephrosis, right Dialysis patient ([facility]) 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 ([facility]) DNR (do not resuscitate) ESRD (end stage renal disease) on dialysis ([facility]) Tobacco user Permanent central venous catheter in place Bladder stones Pleural effusion, right COPD, group C, by GOLD 2017 classification ([facility]) Nonrheumatic aortic valve stenosis Supplemental oxygen dependent Current Outpatient Medications Medication Sig Dispense Refill Cholecalciferol 2000 units Capsule Take 1 Capsule by mouth in the morning. 30 Cap 3 Calcium Acetate, Phos Binder, 667 MG TABS take 2 pills 3 x daily 180 Tab 11 Citalopram Hydrobromide 10 MG Oral Tablet (CeleXA) Take 1 Tablet by mouth every night at bedtime. 30 Tablet 5 amLODIPine Besylate 5 MG Oral Tablet (Norvasc) Take 1 Tablet by mouth in the morning. 90 Tablet 3 Gill-Farzana Rx 1 MG Oral Tablet TAKE ONE TABLET BY MOUTH ONCE DAILY 90 Tablet 3 LORazepam 0.5 MG Oral Tablet (Ativan) Take 1 Tablet by mouth every 8 hours as needed for Anxiety. 30 Tablet 0 Torsemide 100 MG Oral Tablet (Demadex) Take 1 Tablet by mouth in the morning. One tablet by mouth on non-dialysis days (Monday, Monday, Monday and Monday). Normal Saline Flush 0.9 % Intravenous Solution Flush 1 mL catheter daily as needed for Other (flushnephrostomy). 100 mL 3 Snaixawzykk-Xzvfyency-Hqnlqw 100-62.5-25 MCG/ACT Aerosol Powder Breath Activated (Trelegy Ellipta) Inhale 1 Puff by mouth in the morning. 60 Blister Dosing Unit 11 Ventolin HFA 108 (90 Base) MCG/ACT Inhalation Aerosol Solution Inhale 2 Puffs by mouth every 6 hours as needed for Cough, Shortness of Breath or Wheezing. 18 g 5 Leuprolide Acetate (3 Month) 22.5 MG Subcutaneous Kit ([employer]) Inject 22.5 mg under the skin. Every 3 months No current facility-administered medications for this visit. Past Medical History: Diagnosis Date Hypertension, essential INFORMATION 03/2014 [facility]- kidney failure Nephrostomy status (HCC) 03/22/2024 Pleural effusion Use of leuprolide acetate (Lupron) Past Surgical History: Procedure Laterality Date CYSTOSCOPY 07-08-2014 IR DRAINAGE CATHETER CHANGE Right 06/10/2015 CHANGE OF PERCUTANEOUS TUBE OR DRAINAGE CATHETER WITH XRAY AND CONTRAST MEDIUM performed by Gera Mcdaniel MD at RADIOLOGY [facility] IR DRAINAGE CATHETER CHANGE Right 08/24/2016 CHANGE OF PERCUTANEOUS TUBE OR DRAINAGE CATHETER WITH XRAY AND CONTRAST MEDIUM performed by Gera Mcdaniel MD at RADIOLOGY [facility] IR GENITORINARY NEPHRO/CYSTO/URETERAL 01/18/2019 IR GENITORINARY [...] GENITORINARY NEPHRO/CYSTO/URETERAL 10/08/2023 IR GENITORINARY NEPHRO/CYSTO/URETERAL 02/05/2024 NONE Review of patient's allergies indicates: Allergen [...] 0-17 years): Not on file Food Insecurity: Unknown (06/16/2023) Food Insecurity Worried [...] a hard time getting a ride to doctors’ visits? (Household - for ages 0-17 years): [...] Stability Do you currently live in a custodial or have no steady place to sleep [...] ages0-17 years): Not on file Objective: BP 146/72 | Pulse 78 | Temp 98 °F (36.7 °C) (Tympanic) | Resp 18 | Wt 132 lb 6.4 oz (60.1 kg) | SpO2 99% | BMI 22.72 kg/m² | BSA 1.65 m² Physical Exam Vitals and nursing note reviewed. [...] Normal rate and regular rhythm. Heart sounds: Murmur heard. Systolic murmur is present with a grade of 3/6. Pulmonary: Effort: Pulmonary effort is normal. Breath sounds: No wheezing, rhonchi or rales. Abdominal: General: Bowel sounds are [...] Content: Thought content normal. Judgment: Judgment normal. Results for orders placed or performed in visit on 03/20/24 COMPREHENSIVE METABOLIC PANEL Result Value Ref Range BUN 33 (H) 6 - 20 mg/dL CREATININE 5.1 (H) 0.6 - 1.2 mg/dL EGFR 11 (L) >=60 mL/min SODIUM 141 135 - 146 mmol/L POTASSIUM 4.9 3.5 - 5.1 mmol/L CHLORIDE 94 (L) 98 - 107 mmol/L CO2 31 22 - 32 mmol/L ANION GAP 16 (H) 7 - 15 mmol/L GLUCOSE 72 70 - 120 mg/dL Albumin 4.1 3.8 - 5.0 g/dL AST 17 10 - 50 U/L Alkaline Phosphatase 131 (H) 35 - 130 U/L Bilirubin, Total 0.3 <=1.2 mg/dL CALCIUM 8.6 8.4 - 10.2 mg/dL Protein 6.6 6.0 - 8.3 g/dL ALT 21 10 - 50 U/L LIPID PANEL WITH DIRECT LDL IF TG IS HIGH Result Value Ref Range Triglycerides 83 <=174 mg/dL Cholesterol 147 <200 mg/dL HDL Cholesterol 51 >39 mg/dL Non-HDL Cholesterol 96 <=159 mg/dL LDL Cholesterol 79 <=129 mg/dL PSA Result Value Ref Range PSA 0.36 <4.10 ng/mL ANEMIA CBC Result Value Ref Range WBC 6.29 4.00 - 10.80 K/uL RBC 3.27 4.50 - 5.25 M/uL HGB 10.6 (L) 14.0 - 16.8 g/dL HCT 34.3 (L) 40.0 - 48.4 % MCV 104.9 82.0 - 99.5 fL MCH 32.4 27.0 - 34.0 pg MCHC 30.9 32.0 - 36.0 g/dL RDW 14.3 11.5 - 15.5 % PLT 188 140 - 400 K/uL MPV 10.4 6.6 - 11.1 fL nRBCs 0 <=0 /100 WBCs DIFFERENTIAL, AUTOMATED Result Value Ref Range WBC 6.29 4.00 - 10.80 K/uL Neutrophils % 73.1 40.0 - 75.0 % Lymphocytes % 14.1 (L) 18.0 - 42.0 % Monocytes % 10.0 1.0 - 11.0 % Eosinophils % 2.1 0.0 - 6.0 % Basophils % 0.5 0.0 - 2.0 % Immature Granulocytes % 0.2 0.0 - 2.0 % Absolute Neutrophils 4.60 1.80 - 7.70 K/uL Absolute Lymphocytes 0.89 (L) 1.00 - 4.80 K/ul Absolute Monocytes 0.63 0.00 - 1.10 K/uL Absolute Eosinophils 0.13 0.00 - 0.70 K/uL Absolute Basophils 0.03 0.00 - 0.20 K/uL Absolute Immature Granulocytes 0.01 0.00 - 0.20 K/uL RETICULOCYTE PANEL Result Value Ref Range Reticulocyte Percent 1.90 0.80 - 1.90 % Absolute Reticulocyte 61.6 31.3 - 100.1 K/uL Immature Reticuloctye Fraction 14.9 2.5 - 20.6 % Reticulocyte Hemoglobin 35.1 29.7 - 37.4 pg IRON SCREEN, INCLUDING TIBC Result Value Ref Range Iron 130 45 - 176 ug/dL Iron Binding Capacity 233 (L) 250 - 425 ug/dL Transferrin Saturation Percent 56 (H) 15 - 55 % FERRITIN Result Value Ref Range Ferritin 1,391 (H) 30 - 400 ng/mL TSH Result Value Ref Range TSH 2.74 0.27 - 4.20 uIU/mL FOLIC ACID Result Value Ref Range Folic Acid >20.0 >4.5 ng/mL VITAMIN B12 Result Value Ref Range Vitamin B12 772 232 - 1,245 pg/mL *Note: Due to a large number of results and/or encounters for the requested time period, some results have not been displayed. A complete set of results can be found in Results Review. ASSESSMENT: ESRD (end stage renal disease) on dialysis ([facility]) (Primary) COPD, group C, by GOLD 2017 classification ([facility]) - Jncoprsmlvt-Qicfkflpz-Fqdscu 100-62.5-25 MCG/ACT Aerosol Powder Breath Activated (Trelegy Ellipta); Inhale 1 Puff by mouth in the morning. Nonrheumatic aortic valve stenosis Nephrostomy status ([facility]) - Normal Saline Flush 0.9 % Intravenous Solution; Flush 1 mL catheter daily as needed for Other (flush nephrostomy). Supplemental oxygen dependent 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 ([facility]) Tobacco user Prostate cancer ([facility]) COPD exacerbation ([facility]) - Ventolin HFA 108 (90 Base) MCG/ACT Inhalation Aerosol Solution; Inhale 2 Puffs by mouth every 6 hours as needed for Cough, Shortness of Breath or Wheezing. Assessment & Plan COPD Patient was previously on Breztri, but due to cost and insurance coverage, will switch to Trelegy. No reported issues with Trelegy in the past. -Switch from Breztri to Trelegy 100. Nephrostomy tube care Patient uses saline flushes every other day and keeps the area dry. Running low on saline flushes. -Prescribe 100 more saline flushes for nephrostomy tube care. Oxygen use Patient uses oxygen at night and during strenuous activities such as shoveling snow. No reported issues. -Continue current oxygen use as needed. Hypertension Blood pressure slightly elevated at current visit. Patient is on amlodipine 5mg. -Continue amlodipine 5mg and monitor blood pressure. Prostate Cancer Patient is due for injection for prostate cancer in two days. Last PSA reading was 0.36. -Continue current treatment plan. Community Acquired Pneumonia Recent hospitalization for pneumonia. CT scan shows residual signs of pneumonia, but clinically patient has improved. -No further treatment needed at this time. General Health Maintenance -Refill prescription for rescue inhaler. -Continue current dialysis schedule. -Schedule follow-up appointment with primary care doctor in three months. Follow Up: Return in about 3 months (around 07/06/2024), or if symptoms worsen or fail to improve, for f/u chronic problems. | For: f/u chronic problems Edgar Gamble MDNo further physical exam during this ... visit. documented in this encounter Nursing Notes * Sarah Vázquez LPN - 04/08/2024 10:40 AM EST The patient has been properly identified by confirmation of name and date of . Chief Complaint Patient presents with Follow Up Pt is here today for 6 month check up No new concerns at this time documented in this encounter Plan of Treatment Upcoming Encounters Date Type Department Care Team (Late st Contact Info) Description 04/10/2024 9:15 AM EST Office Visit Urology, [facility] [address] [facility] [place] [address] Travon Canales MD [address] [place] [address] [address] 04/12/2024 9:30 AM EST Office Visit Cardiology, [facility] [address] [facility] [place] [address] Gris Alford CRNP [address] [place] [address] 05/01/2024 12:00 PM EST Office Visit Pulmonary Medicine, [facility] [address] [place] [address] Tino Stapleton MD [address] [facility] [place] [address] 05/06/2024 11:00 AM EDT Appointment Interventional Radiology [facility], [facility] 1st Floor [address] [place] [address] 07/29/2024 10:00 AM EDT Office Visit [facility] [address] [place] [address] Beatriz Hair PA-C [address] [place] [phone] Health Maintenance Due Date Last Done Comments Adult Wellness Visit 05/18/2009 *COPD SEVERITY VERIFIED BY PFT 03/05/2022 COVID-19 Vaccine ( season) 2023 01/19/2021, 06/10/2020, 05/20/2020 Depression Screening 06/15/2024 06/16/2023 DISCUSS TOBACCO CESSATION (REFER TO SMARTSET #[id number]) 09/24/2024 09/25/2023 (Discussed), 06/03/2022 O2 ASSESSMENT COMPLETED IN PAST YEAR FOR COPD 04/08/2025 04/08/2024 DTap/Tdap Vaccines (2 - Td or Tdap) [...] as of this encounter Visit Diagnoses Diagnosis ESRD (end stage renal disease) on dialysis (HCC)- Primary End stage renal disease COPD, group C, by GOLD 2017 classification (HCC) Nonrheumatic aortic valve stenosis Aortic valve disorders Nephrostomy status (HCC) Status of other artificial opening of urinary tract Supplemental oxygen dependent Dependence on supplemental oxygen 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 (HCC) Tobacco user Tobacco use disorder Prostate cancer (HCC) Malignant neoplasm of prostate COPD exacerbation (HCC) Obstructive chronic bronchitis with exacerbation documented in this encounter Advance Directives * Full Code (Latest Code Status on File) Date Activated Date Inactivated Comments 04/15/2015 4:40 PM 04/16/2015 5:24 PM This order r eflects the patients wishes and were consensually agreed upon. Care Teams [employer] Business Manager Relationship Specialty Start Date End Date Edgar Gibbs MD [address] [place] [id number] PCP - General Family Medicine 07/03/20 documented as of this encounter"
--- OUTSIDE RECORDS SUMMARY | 2024-06-10 21:32 | External Medical Summary | Summary of Care ---
Author Name Unknown Organization [facility] Address [address] [place] [address] Phone [phone] Care Team Providers Care Two Way Radio Technician Name Role Phone Edgar Gibbs MD Primary Care P rovider Encounter Details Date Type Department Care Team (Late st Contact Info) Description 04/19/2024 Telephone Urology, [facility] [address] [facility] [place] [phone] Services, Scheduling [address] [place] [address] Allergies Active Allergy Reactions Criticality Noted Date Comments Latex 07/19/2019 Pantoprazole Sodium Edema face/lips/tongue High 04/0 02/2014 documented as of this encounter (statuses as of 04/19/2024) Medications Cholecalciferol 2000 units Capsule Take 1 Capsule by mouth in the morning. 30 Cap 3 8 Active Calcium Acetate, Phos Binder, 667 MG TABSIndications:Ki dney disease, chronic, stage V (GFR under 15 ml/min) ([facility]) take 2 pills 3 x daily 180 [...] end stage chronic kidney disease on dialysis ([facility]) Take 1 Tablet by mouth in the [...] Flush 0.9 % Intravenous SolutionIndication s:Nephrostomy status ([facility]) Flush 1 mL catheter daily as needed for Other (flush nephrostomy). 100 mL 3 5 Active Fluticasone-Umecli din-Vilant 100-62.5-25 MCG/ACT Aerosol Powder Breath Activated (Trelegy Ellipta)Indication s:COPD, group C, by GOLD 2017 classification ([facility]) Inhale 1 Puff by mouth in the morning. 60 Blister Dosing Unit 11 5 Active Ventolin HFA 108 (90 Base) MCG/ACT Inhalation Aerosol SolutionIndication s:COPD exacerbation ([facility]) Inhale 2 Puffs by mouth every 6 hours as needed for Cough, Shortness of Breath or Wheezing. 18 g 5 5 Active documented as of this encounter (statuses as of 04/19/2024) Active Problems Problem Noted Date Diagnosed Date [...] as of this encounter (statuses as of 04/19/2024) Resolved Problems Problem Noted Date Diagnosed Date [...] as of this encounter (statuses as of 04/19/2024) Immunizations Name Administration Dates Next Due COVID-19 mRNA, LNP-s, No Pre serve, 2-Dose Series (Pfizer) 01/19/2021,06/10/2020,05/20/2020 Hep B Vac., Dialysis, 4 Dose , IM, 2mL (Engerix B) 12/20/2018,07/21/2018,06/19/2018 PPD 05/03/2018 Pneumococcal Conjugate Vacci ne, 20-valent ([id number]) 03/16/2022 Pneumococcal Polysaccharide PPV23 (Pneumovax) 12/28/2017 Seasonal [...] No 06/16/2023 Does the household have a [facility] source of income? (Household - [...] Telephone Encounter - Otilio Heredia OSA - 04/19/2024 8:12 AM EST Patient is scheduled May 15. Patient is aware. * Telephone Encounter - Adilia Awan OSA - 04/19/2024 8:06 AM EST Patient returning call to reschedule his Lupron injection. Patient does dialysis Tues, Thurs & Sat so please don't reschedule on those days. Patient states the 05/10/24 is a good day for him documented in this encounter Plan of Treatment Upcoming Encounters Date Type Department Care Team (Late st Contact Info) Description 05/01/2024 12:00 PM EST Office Visit Pulmonary Medicine, [facility] 132 [facility] [place] [address] Tino Stapleton MD [address] [place] [address] 05/06/2024 11:00 AM EDT Appointment Interventional Radiology [facility] [place] 1st Floor [address] [place] [address] 05/15/2024 11:00 AM EDT Nurse Only Urology, [facility] [address] [facility] [place] [address] [facility], Nurse Urology [facility] 132 [facility] [place] [address] 07/29/2024 10:00 AM EDT Office Visit [facility] [address] [place] [phone] Beatriz Hair PA-C [address] [place] [address] 09/04/2024 10:00 AM EDT Office Visit Cardiology, [facility] [address] [facility] [place] [address] Nata West CRNP [address] [place] [address] [place] [address] 11/20/2024 9:45 AM EDT Office Visit Urology, [facility] [address] [place] [address] Travon Canales MD [address] [place] [address] [phone] Health Maintenance Due Date Last Done Comments [...] and were consensually agreed upon. Care Teams Two Way Radio Technician Relationship Specialty Start Date End Date Edgar Gibbs MD [address] [place] [address] [place] [address] PCP - General Family Medicine 07/03/20 documented as of this encounter
--- OUTSIDE RECORDS SUMMARY | 2024-06-10 21:32 | External Medical Summary | Summary of Care ---
Author Name Unknown Organization [facility] Address [address] [facility] [place] [address] Phone [phone] Care Team Providers Care Letter Carrier Name Role Phone Edgar Gibbs MD Primary Care P rovider Reason for Visit * Reason Comments Hospital Follow-Up Encounter Details Date Type Department Care Team ([facility] Contact Info) Description 03/22/2024 2:00 PM EST Office Visit [address] [phone] Camila Herron MD [address] [facility] [place] [phone] ESRD (end stage renal disease) on dialysis ([facility])*; HTN, goal below 140/90; Prostate cancer ([facility]); COPD, group C, by GOLD 2017 classification ([facility]); Hospital discharge follow-up; Nonrheumatic aortic valve stenosis Allergies Active Allergy Reactions Criticality Noted Date Comments Latex 07/19/2019 Pantoprazole Sodium Edema face/lips/tongue High 04/0 02/2014 documented as of this encounter (statuses as of 03/22/2024) Medications Cholecalciferol 2000 units Capsule Take 1 Capsule by mouth in the morning. 30 Cap 3 03/28/19 18 Active Calcium Acetate, Phos Binder, 667 MG TABSIndications:K idney disease, chronic, stage V (GFR under 15 ml/min) ([facility]) take 2 pills 3 x daily 180 Tab 11 10/27/19 19 Active Sodium Chloride Flush (NORMAL SALINE FLUSH) 0.9 % SOLN injection FLUSH ONCE DAILY WITH 10ml 300 mL 1 03/12/19 20 Active Leuprolide Acetate (3 Month) 22.5 MG Subcutaneous Kit (Eligard) Inject 22.5 mg under the skin. Every 3 months 11/19/19 21 Active Ventolin HFA 108 (90 Base) MCG/ACT Inhalation Aerosol SolutionIndicatio ns:COPD exacerbation ([facility]) INHALE TWO PUFFS BY MOUTH EVERY 4 HOURS NEEDED FOR COUGH, SHORTNESS OF BREATH, OR WHEEZING 18 g 5 01/21/20 23 Active Citalopram Hydrobromide 10 MG Oral Tablet (CeleXA) Take 1 Tablet by mouth every night at bedtime. 30 Tablet 5 05/29/19 24 Active amLODIPine Besylate 5 MG Oral Tablet (Norvasc)Indicati ons: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 ([facility]) Take 1 Tablet by mouth in the [...] Monday, Monday and Monday). 03/22/19 25 Active Fluticasone-Umecl idin-Vilant 100-62.5-25 MCG/ACT Aerosol Powder Breath Activated (Trelegy Ellipta)Indicatio ns:COPD, group C, by GOLD 2017 classification ([facility]) Inhale 1 Puff by mouth in the morning. 60 Blister Dosing Unit 3 03/22/19 25 Active Torsemide 100 MG Oral Tablet (Demadex) Take 1 Tablet by mouth in the morning. 90 Tablet 3 05/11/19 24 2024 Discontinued Budeson-Glycopyrr ol-Formoterol 160-9-4.8 MCG/ACT Inhalation AerosolIndication s:COPD, group C, by GOLD 2017 classification ([facility]) Inhale 2 Puffs by mouth in the morning and 2 Puffs before bedtime. 10.7 g 5 12/06/19 24 2024 Discontinued(F ormulary/Cost) documented as of this encounter (statuses as of 03/22/2024) Active Problems Problem Noted Date Diagnosed Date [...] as of this encounter (statuses as of 03/22/2024) Resolved Problems Problem Noted Date Diagnosed Date [...] as of this encounter (statuses as of 03/22/2024) Immunizations Name Administration Dates Next Due COVID-19 mRNA, LNP-s, No Pre serve, 2-Dose Series (Pfizer) 01/19/2021,06/10/2020,05/20/2020 Hep B Vac., Dialysis, 4 Dose , IM, 2mL (Engerix B) 12/20/2018,07/21/2018,06/19/2018 PPD 05/03/2018 Pneumococcal Conjugate Vacci ne, 20-valent ([id number]) 03/16/2022 Pneumococcal Polysaccharide PPV23 (Pneumovax) 12/28/2017 Seasonal [...] Sign Reading Time Taken Comments Blood Pressure 142/70 03/22/2024 2:00 PM EST Pulse 75 03/22/2024 2:00 PM EST Temperature 36.6 °C (97.9 °F) 03/22/2024 2:00 PM ES T Respiratory Rate 12 03/22/2024 2:00 PM EST Oxygen Saturation 97% 03/22/2024 2:00 PM EST Inhaled Oxygen Concentration - - Weight 59.6 kg (131 lb 4.8 oz) 03/22/2024 2:00 P M EST Height 162.6 cm (5' 4.02") 03/22/2024 2:00 PM ES T Body Mass Index 22.53 03/22/2024 2:00 PM EST documented in this [...] documented in this encounter Progress Notes * Camila Herron MD - 03/22/2024 2:22 PM EST Images from the original note were not included. History of Present Illness Matthew Rowe is a 78 year old male that presents for Hospital Follow-Up Post hospital follow up. Patient was admitted to [facility] on 03/13/24 and discharged on 03/15/24, available record reviewed. Hyperkalemia- resolved Missed dialysis (due to diarrhea) ESRD: dialysis on Monday-- Monday 11:30 a.m - 3 p.m Recent labs reviewed, stable Patient feels well, no complaints. Patient needs Trelegy script, took it in the hospital. Current inhaler will not be covered by his insurance. Physical Exam Vitals: 03/22/24 1400 Temp: 97.9 °F (36.6 °C) Pulse: 75 Resp: 12 SpO2: 97% BP: 142/70 BMI: 22.53 BP Readings from Last 3 Encounters: 03/22/24 142/70 02/05/24 139/69 12/06/23 156/76 Wt Readings from Last 3 Encounters: 03/22/24 131 lb 4.8 oz (59.6 kg) 12/06/23 128 lb 6.4 oz (58.2 kg) 11/17/23 126 lb 9.6 oz (57.4 kg) BMI Readings from Last 3 Encounters: 03/22/24 22.53 kg/m² 12/06/23 22.04 kg/m² 11/17/23 21.73 kg/m² Physical Exam Constitutional: General: He is not in acute distress. Appearance: Normal appearance. HENT: Head: Normocephalic and atraumatic. Right Ear: External ear normal. Left Ear: External ear normal. Nose: Nose normal. Mouth/Throat: Mouth: Mucous membranes are moist. Pharynx: Oropharynx is clear. Eyes: Conjunctiva/sclera: Conjunctivae normal. Pupils: Pupils are equal, round, and reactive to light. Cardiovascular: Rate and Rhythm: Normal rate and regular rhythm. Pulses: Normal pulses. Heart sounds: Murmur heard. Systolic murmur is present with a grade of 2/6. Pulmonary: Effort: Pulmonary effort is normal. Breath sounds: Rhonchi present. Comments: Known COPD Abdominal: General: Bowel sounds are normal. There is no distension. Palpations: Abdomen is soft. Tenderness: There is no abdominal tenderness. Musculoskeletal: Arms: Cervical back: Neck supple. Right lower leg: No edema. Left lower leg: No edema. Comments: Fistula Skin: General: Skin is warm and dry. Findings: No rash. Neurological: Mental Status: He is alert and oriented to person, place, and time. Psychiatric: Mood and Affect: Mood normal. Behavior: Behavior normal. I have reviewed the following results: None Assessment and Plan 1. ESRD (end stage renal disease) on dialysis ([facility]) (Primary) 2. HTN, goal below 140/90 3. Prostate cancer ([facility]) 4. COPD, group C, by GOLD 2017 classification ([facility]) - Zeyxpwbisqz-Rtkofclsm-Ebsmvt 100-62.5-25 MCG/ACT Aerosol Powder Breath Activated (Trelegy Ellipta); Inhale 1 Puff by mouth in the morning. Dispense: 60 Blister Dosing Unit; Refill: 3 5. Hospital discharge follow-up 6. Nonrheumatic aortic valve stenosis Wrap-Up As needed Time: I spent a total of 20-29 minutes (exact time 25 mins) on the date of service in preparation, delivery, and documentation of the care provided to Matthew Rowe excluding any time spent in the performance of separately billed services. documented in this encounter Nursing Notes * MaldonadoStacy roldan LPN - 03/22/2024 1:57 PM EST The patient has been properly identified by confirmation of name and date of . Chief Complaint Patient presents with Hospital Follow-Up Patient is here for hospital follow from [facility]. Pt was discharged on 03/14 and brought hospital paperwork with him. documented in this encounter Plan of Treatment Upcoming Encounters Date Type Department Care Team (Late st Contact Info) Description 04/03/2024 9:30 AM EST Imaging Radiology [address] 132 [facility] [place] [phone] 04/08/2024 10:40 AM EST Office Visit [address] [phone] Edgar Gibbs MD [address] [place] [address] 04/10/2024 9:15 AM EST Office Visit Urology, [facility] 132 [facility] [place] [address] Travon Canales MD 27 [facility] [place] [address] 04/12/2024 9:30 AM EST Office Visit Cardiology, [facility] 132 [facility] [place] [address] Gris lAford CRNP 132 [facility] [place] [address] 05/01/2024 12:00 PM EST Office Visit Pulmonary Medicine, [facility] 132 [facility] [place] [address] Tino Stapleton MD [address] [facility] [phone] 05/06/2024 11:00 AM EDT Appointment Interventional Radiology [facility] [place] [place] 1st Floor [address] [place] [address] Health Maintenance Due Date Last [...] dialysis (HCC)- Primary End stage renal disease HTN, goal below 140/90 Unspecified essential hypertension Prostate cancer (HCC) Malignant neoplasm of prostate COPD, group C, by GOLD 2017 classification ([facility]) Hospital discharge follow-up Other follow-up examination Nonrheumatic aortic valve stenosis Aortic valve disorders documented in this encounter Advance Directives * Full Code (Latest Code Status on File) Date Activated Date Inactivated Comments 04/15/2015 4:40 PM 04/16/2015 5:24 PM This order r eflects the patients wishes and were consensually agreed upon. Care Teams Letter Carrier Relationship Specialty Start Date End Date Edgar Gibbs MD [address] [place] [address] PCP - General Family Medicine 07/03/20 documented as of this encounter
--- OUTSIDE RECORDS SUMMARY | 2024-06-10 21:32 | External Medical Summary | Summary of Care ---
Author Name Unknown Organization [facility] Address [address] [place] [address] Phone [phone] Care Team Providers Care Louver Door Assembler Name Role Phone Edgar Gibbs MD Primary Care P rovider Reason for Referral * Precert (Within 10 days (routine)) - Authorized Specialty Diagnoses / Procedures Referred By Cecilia t Referred To Contact Radiology Diagnoses Nephrostomy status (HCC) Procedures IR GENITORINARY NEPHRO/CYSTO/URETERAL Moses Winter MD [address] [place] [address] Phone: tel: fax: Referral ID Status Reason Start Date Expiration Date V isits Requested Visits Authorized [id number] Authorized 02/06/2024 20 20 Reason for Visit * Precert (Within 10 days (routine)) - Authorized Specialty Diagnoses / Procedures Referred By Cecilia mendieta Referred To Contact Radiology Diagnoses Nephrostomy status (HCC) Procedures IR GENITORINARY NEPHRO/CYSTO/URETERAL Moses Winter MD [address] [place] [address] Phone: tel: fax: Referral ID Status Reason Start Date Expiration Date V isits Requested Visits Authorized [id number] Authorized 02/06/2024 20 20 Encounter Details Date Type Department Care Team (Latest Contact Info) Description 05/06/2024 10:20 AM EDT - 05/06/2024 2:04 PM EDT Hospital Encounter Radiology [facility] [place] [place] [address] [place] [address] [place] [address] Gera Mcdaniel MD [address] [place] [address] Arrived Discharge Disposition: Home - Self Care Allergies Active Allergy Reactions Criticality Noted Date Comments Latex 07/19/2019 Pantoprazole Sodium Edema face/lips/tongue High 04/0 02/2014 documented as of this encounter (statuses as of 05/07/2024) Medications Cholecalciferol 2000 units Capsule Take 1 Capsule by mouth in the morning. 30 Cap 3 8 Active Calcium Acetate, Phos Binder, 667 MG TABSIndications:Ki dney disease, chronic, stage V (GFR under 15 ml/min) ([facility]) take 2 pills 3 x daily 180 Tab 11 9 Active Leuprolide Acetate (3 Month) 22.5 MG Subcutaneous Kit (EliPombaid) Inject 22.5 mg under the skin. Every 3 months 1 Active Citalopram Hydrobromide 10 MG Oral Tablet (CeleXA) Take 1 Tablet by mouth every night at bedtime. 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 100 mL 3 5 Active Fluticasone-Umecli din-Vilant 100-62.5-25 MCG/ACT Aerosol Powder Breath Activated (Trelegy Ellipta)Indication s:COPD, group C, by GOLD 2017 classification ([facility]) Inhale 1 Puff by mouth in the morning. 60 Blister Dosing Unit 11 5 Active Ventolin HFA 108 (90 Base) MCG/ACT Inhalation Aerosol SolutionIndication s:COPD exacerbation ([facility]) Inhale 2 Puffs by mouth every 6 hours as needed for Cough, Shortness of Breath or Wheezing. 18 g 5 5 Active documented as of this encounter (statuses as of 05/07/2024) Active Problems Problem Noted Date Diagnosed Date [...] as of this encounter (statuses as of 05/07/2024) Resolved Problems Problem Noted Date Diagnosed Date [...] as of this encounter (statuses as of 05/07/2024) Immunizations Name Administration Dates Next Due COVID-19 mRNA, LNP-s, No Pre serve, 2-Dose Series ([employer]) 01/19/2021,06/10/2020,05/20/2020 Hep B Vac., Dialysis, 4 Dose , IM, 2mL (Engerix B) 12/20/2018,07/21/2018,06/19/2018 PPD 05/03/2018 Pneumococcal Conjugate Vacci ne, 20-valent ([id number]) 03/16/2022 Pneumococcal Polysaccharide PPV23 (Pneumovax) 12/28/2017 Seasonal [...] Sign Reading Time Taken Comments Blood Pressure 141/67 05/06/2024 1:44 PM EDT Pulse 73 05/06/2024 1:44 PM EDT Temperature 36.7 °C (98.1 °F) 05/06/2024 12:58 PM E DT Respiratory Rate 24 05/06/2024 1:44 PM EDT Oxygen Saturation 98% 05/06/2024 1:44 PM EDT Inhaled Oxygen Concentration - - [...] Discharge Instructions * Discharge Instr - AVS* Owen Louis MD - 05/06/2024 12:54 PM EDT Discharge Date: 05/06/2024 Provider: Dr. Owen Louis If you are experiencing any problems related to your procedure, please contact Interventional Radiology at [phone] during normal business hours: Monday - Monday, 8:00 am - 4:00 pm. If a problem occurs outside of normal business hours, please call the hospital burrer operator at [phone] and ask for the Interventional Radiologist non profit job titles. Contact scheduling for Interventional Radiology at [phone] during normal business hours: Monday - Monday, [...] flushes, we can call the prescription into [facility] if no one close to [...] homicidal, please call the crisis hotline at [phone] ([phone]). Driving: You may resume driving TODAY . Diet: You may resume your current diet as tolerated. Return to work or school: You may return to school or work TODAY after the procedure, unless otherwise instructed by the physician. documented in this encounter Nursing Notes * Jamin Ferguson RN - 05/06/2024 2:02 PM EDT DISCHARGE - POST INTERVENTIONAL RADIOLOGY PROCEDURE Patient meets discharge criteria for Interventional Radiology. Vital signs stable. Dressing clean, dry, and intact. IV site removed. Patient awake and oriented to pre procedure baseline. Discharge instructions given, no questions at this time. Patient tolerating liquids, with no nausea/vomiting. All belongings sent with patient. Discharged to home. Vital Signs: BP: 141/67 (05/06/24 1344) Temp: 36.7 °C (98.1 °F) (05/06/24 1258) Pulse: 73 (05/06/24 1344) Resp: 24 (05/06/24 134) SpO2: 98 % (05/06/24 134) Neurological: [place] Coma Scale - For patients greater than two years old Eyes Open: Spontaneous (05/06/24 1258) Best Verbal Response: Verbally appropriate for age (05/06/24 1258) Best Motor Response: Obeys commands appropriate for age (05/06/24 1258) Coma Score: 15 (05/06/24 125) Activity: Four Extremities LOC: Fully Awake or Pre-Anesthetic Level of Consciousness BP: Less than (+/-) 20% Resp: Deep Breathe and Cough Freely (05/06 1306) Respiratory: Pain Assessment Flowsheet Row Most Recent Value Pain Assessment Scale [facility] Adult Scale 0-10 (18 years and older) Pain Score 0 (no pain) * Yinka Luciano RN - 05/06/2024 12:27 PM EDT dry kiln worker note Name: Matthew Rowe Date: 05/06/2024 Time: 12:30 PM Procedure: Right PCN Exchange Patient ID band checked using two identifiers. Patient placed on procedure table, prone position, with comfort measures intact and safety strap in place. Hemodynamic monitoring placed and initiated. Patient denies any current complaints at current time. RT staff prepares and preps for procedure. 12:40 PM 2 mg Versed given per order of Dr. Owen Louis. Order was verbalized and verified with same provider prior to administration. Procedure by physician. 12:41 PM Timeout performed by Dr. Owen Louis. Correct catheter/tube size verbalized and verified during timeout. 12:42 PM Procedure started by Dr. Owen Louis, and scrubbed RT Jordan White. Guidewire inserted.Images obtained. 12:43 PM Drain removed. Images obtained. 12:44 PM New drain placed. [place] Nephroureterostomy Stent. 10.2 Fr. Ref: [id number]. Lot: [id number]. Exp: 03/20/2027. Images obtained. 12:45 PM 1% buffered lidocaine given by doctor at right site. Sutures and stat lock applied, cappedProcedure ends. Area cleaned. Patient tolerated procedure well without [...] procedure. Total medications given Versed: 2 mg Ceftriaxone: 1 g 1% buffered lidocaine: 2 mL Please see doctor's operative note for additional details. documented in this encounter Plan of Treatment Upcoming Encounters Date Type Department Care Team (Late st Contact Info) Description 05/13/2024 11:30 AM EDT Office Visit Pulmonary Medicine, [facility] [address] [facility] [place] [address] Tino Stapleton MD [address] [place] [address] 05/15/2024 11:00 AM EDT Nurse Only Urology, [address] [place] [address] [facility], Nurse Urology [address] [place] [address] 07/29/2024 10:00 AM EDT Office Visit [facility] [address] [place] [phone] Beatriz Hari PA-C [address] [place] [address] 09/04/2024 10:00 AM EDT Office Visit Cardiology, [facility] [address] [facility] [place] [address] Nata West CRNP [address] [facility] [place] [address] 11/20/2024 9:45 AM EDT Office Visit Urology, [facility] [address] [facility] [place] [address] Travon Canales MD [address] [place] [address] Health Maintenance Due Date Last Done Comments Adult Wellness Visit 05/18/2009 *COPD SEVERITY VERIFIED BY PFT 03/05/2022 COVID-19 Vaccine ( season) 2023 01/19/2021, 06/10/2020, 05/20/2020 Depression Screening 06/15/2024 06/16/2023 DISCUSS TOBACCO CESSATION (REFER TO SMARTSET #[id number]) 09/24/2024 09/25/2023 (Discussed), 06/03/2022 O2 ASSESSMENT COMPLETED IN PAST YEAR FOR COPD 05/06/2025 05/06/2024 DTap/Tdap Vaccines (2 - Td or Tdap) [...] Associated Diagnosis Comments IR GENITORINARY NEPHRO/CYSTO/URETERAL Routine 05/06/2024 12:47 PM EDT Nephrostomy status (HCC) documented in this encounter Results * IR GENITORINARY NEPHRO/CYSTO/URETERAL (05/06/2024 12:47 PM EDT) Anatomical Region Laterality Modality Any X-Ray Angiograph y 05/06/2024 3:46 PM EDT Impressions 05/06/2024 3:44 PM EDT IMPRESSION: Successful right nephroureteral catheter check and exchange. PLAN: Patient should return to IR in 3 months for routine maintenance catheter exchange. Narrative 05/06/2024 3:44 PM EDT PROCEDURE: Right nephroureteral catheter check and exchange. 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 ATTENDING (OPERATING PHYSICIAN): Owen Louis MD SCRUBBED RESIDENT (OPERATING PHYSICIAN): None SUPPORTING PROVIDER (STATEMENT REQUEST CLERK): None. CONSENT: After a detailed discussion of [...] was secured to the skin and capped. I personally performed the procedure. FINDINGS: Right: Preliminary fluoroscopic evaluation of the right side demonstrated a nephroureteral catheter overlying the right flank. Antegrade nephrostogram through the catheter demonstrated opacification of the right collecting system. Post exchange imaging confirms appropriate positioning of the new catheter. Procedure Note Owen Louis MD - 05/06/2024 PROCEDURE: Right nephroureteral catheter check and exchange. INDICATION: 78-year-old male with dependence on nephroureteral catheterdue to malignant ureteral stricture associated with prostate cancer,presents for preventative catheter check and exchange. ATTENDING (OPERATING PHYSICIAN): Owen Louis MD SCRUBBED RESIDENT (OPERATING PHYSICIAN): None SUPPORTING PROVIDER (STATEMENT REQUEST CLERK): None. CONSENT: After a detailed discussion of [...] was secured to the skin and capped. I personally performed the procedure. FINDINGS: Right: Preliminary fluoroscopic evaluation of the right side demonstrateda nephroureteral catheter overlying the right flank. Antegradenephrostogram through the catheter demonstrated opacification of the rightcollecting system. Post exchange imaging confirms appropriate positioningof the new catheter. IMPRESSION IMPRESSION: Successful right nephroureteral catheter check and exchange. PLAN: Patient should return to IR in 3 months for routine maintenancecatheter exchange. Moses Winter MD RAD SPECIAL PROCEDURES Beatriz l Result documented in this encounter Visit Diagnoses Diagnosis Nephrostomy status (HCC) Status of other artificial opening of urinary tract documented in this encounter Administered Medications Inactive Administered Medications - up to 3 most recent administrations Medication Order MAR Action Action Date Dose Rate Site buffered lidocaine 1 % inj Intradermal, ONCE PRN INTRA PROCEDURE, Starting on Mon05/06/24 at 1245, Until Mon05/06/24 at 1245, Intra-Op Given 05/06/2024 12:45 PM EDT 2 mL cefTRIAXone in dextrose (Rocephin) IVPB 2 g IV Piggyback, 2 g, ONCE, 1 dose, On Mon05/06/24 at 1145, Administer over 30 Minutes New Bag 05/06/2024 12:31 PM EDT 2 g 100 mL/hr Iopamidol (Isovue 300) inj 100 mL 100 mL, Injection, ONCE, On Mon05/06/24 at 1330, For 1 dose, Intra-Op Given 05/06/2024 12:48 PM EDT 15 mL midazolam (Versed) 2 MG/2ML inj ONCE PRN INTRA PROCEDURE, Starting on Mon05/06/24 at 1240, Until Mon05/06/24 at 1240, Intra-Op Given 05/06/2024 12:40 PM EDT 2 mg documented in this encounter Active and Recently Administered Medications Due to Daylight Saving Time, this section may contain times in both EST and EDT. Scheduled Medication Order 05/04/2024 05/05/2024 05/06/2024 cefTRIAXone in dextrose (Rocephin) IVPB 2 g (COMPLETED) IV Piggyback, 2 g, ONCE, 1 dose, On Mon05/06/24 at 1145, Administer over 30 Minutes 1231 (New Bag - Prov ider: Yinka Luciano, RAHEEM) Iopamidol (Isovue 300) inj 100 mL (COMPLETED) 100 mL, Injection, ONCE, On Mon05/06/24 at 1330, For 1 dose, Intra-Op 1248 (Given - Provid er: Kait Ramos, RT (R)) PRN Medication Order 05/04/2024 05/05/2024 05/06/2024 buffered lidocaine 1 % inj (COMPLETED) Intradermal, ONCE PRN INTRA PROCEDURE, Starting on Mon05/06/24 at 1245, Until Mon05/06/24 at 1245, Intra-Op 1245 (Given - Provid er: Owen Louis MD - Comment: Right Flank) midazolam (Versed) 2 MG/2ML inj (COMPLETED) ONCE PRN INTRA PROCEDURE, Starting on Mon05/06/24 at 1240, Until Mon05/06/24 at 1240, Intra-Op 1240 (Given - Provid er: Yinka Luciano RN) documented in this encounter Advance Directives * Full Code (Latest Code Status on File) Date Activated Date Inactivated Comments 04/15/2015 4:40 PM 04/16/2015 5:24 PM This order r eflects the patients wishes and were consensually agreed upon. Care Teams Louver Door Assembler Relationship Specialty Start Date End Date Edgar Gibbs MD [address] [place] [phone] PCP - General Family Medicine 07/03/20 documented as of this encounter
--- OUTSIDE RECORDS SUMMARY | 2024-06-10 21:32 | External Medical Summary | Summary of Care ---
Author Name Unknown Organization [facility] Address [address] [facility] [place] [address] Phone [phone] Care Team Providers Care Psych Therapist Name Role Phone Edgar Gibbs MD Primary Care P rovider Encounter Details Date Type Department Care Team (Late st Contact Info) Description 04/30/2024 Result Scan Unspecified Department <No scans attached> Allergies Active Allergy Reactions Criticality Noted Date Comments Latex 07/19/2019 Pantoprazole Sodium Edema face/lips/tongue High 04/0 02/2014 documented as of this encounter (statuses as of 05/06/2024) Medications Cholecalciferol 2000 units Capsule Take 1 Capsule by mouth in the morning. 30 Cap 3 8 Active Calcium Acetate, Phos Binder, 667 MG TABSIndications:Ki dney disease, chronic, stage V (GFR under 15 ml/min) ([facility]) take 2 pills 3 x daily 180 [...] chronic kidney disease on dialysis ([facility]) Take 1 Tablet by mouth in the [...] % Intravenous SolutionIndication s:Nephrostomy status ([facility]) Flush 1 mL catheter daily as needed for Other (flush nephrostomy). 100 mL 3 5 Active Fluticasone-Umecli din-Vilant 100-62.5-25 MCG/ACT Aerosol Powder Breath Activated (Trelegy Ellipta)Indication s:COPD, group C, by GOLD 2017 classification ([facility]) Inhale 1 Puff by mouth in the morning. 60 Blister Dosing Unit 11 5 Active Ventolin HFA 108 (90 Base) MCG/ACT Inhalation Aerosol SolutionIndication s:COPD exacerbation ([facility]) Inhale 2 Puffs by mouth every 6 hours as needed for Cough, Shortness of Breath or Wheezing. 18 g 5 5 Active documented as of this encounter (statuses as of 05/06/2024) Active Problems Problem Noted Date Diagnosed Date [...] as of this encounter (statuses as of 05/06/2024) Resolved Problems Problem Noted Date Diagnosed Date [...] as of this encounter (statuses as of 05/06/2024) Immunizations Name Administration Dates Next Due COVID-19 mRNA, LNP-s, No Pre serve, 2-Dose Series (Pfizer) 01/19/2021,06/10/2020,05/20/2020 Hep B Vac., Dialysis, 4 Dose , IM, 2mL (Engerix B) 12/20/2018,07/21/2018,06/19/2018 PPD 05/03/2018 Pneumococcal Conjugate Vacci ne, 20-valent ([id number]) 03/16/2022 Pneumococcal Polysaccharide PPV23 (Pneumovax) 12/28/2017 Seasonal [...] 11:30 AM EDT Office Visit Pulmonary Medicine, [facility] [place] [address] Tino Stapleton MD [address] [place] [address] 05/15/2024 11:00 AM EDT Nurse Only Urology, [facility] [place] [address] [place], Nurse Urology [address] [place] [address] 07/29/2024 10:00 AM EDT Office Visit Family [facility] [address] [place] [phone] Beatriz Hair PA-C [address] [place] [address] 09/04/2024 10:00 AM EDT Office Visit Cardiology, [facility] [address] [facility] [place] [address] Nata West CRNP [address] [facility] [place] [address] 11/20/2024 9:45 AM EDT Office Visit Urology, [facility] [address] [facility] [place] [address] Travon Canales MD [address] [place] [address] Health Maintenance Due Date Last Done Comments [...] Date/Time Associated Diagnosis Comments OUTSIDE LAB RESULTS 04/30/2024 documented in this encounter Results * OUTSIDE LAB RESULTS (04/30/2024) 04/30/2024 us No Physician Data Unknown LABORATORY Final Result documented in this encounter Advance Directives * Full Code (Latest Code Status on File) Date Activated Date Inactivated Comments 04/15/2015 4:40 PM 04/16/2015 5:24 PM This order r eflects the patients wishes and were consensually agreed upon. Care Teams Psych Therapist Relationship Specialty Start Date End Date Edgar Gibbs MD [address] [place] [phone] PCP - General Family Medicine 07/03/20 documented as of this encounter
--- OUTSIDE RECORDS SUMMARY | 2024-06-10 21:32 | External Medical Summary | Summary of Care ---
Author Name Unknown Organization [facility] Address [address] [facility] [address] Phone [phone] Care Team Providers Care Ladies' Hat Trimmer Name Role Phone Edgar Gibbs MD Primary Care P rovider Encounter Details Date Type Department Care Team (Late st Contact Info) Description 04/09/2024 Result Scan Unspecified Department Pako Ramos MD [address] [facility] [address] <No scans attached> Allergies Active Allergy Reactions Criticality Noted Date Comments Latex 07/19/2019 Pantoprazole Sodium Edema face/lips/tongue High 04/0 02/2014 documented as of this encounter (statuses as of 04/15/2024) Medications Cholecalciferol 2000 units Capsule Take 1 [...] 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 100 mL 3 5 Active Fluticasone-Umecli din-Vilant 100-62.5-25 MCG/ACT Aerosol Powder Breath Activated (Trelegy Ellipta)Indication s:COPD, group C, by GOLD 2017 classification ([facility]) Inhale 1 Puff by mouth in the morning. 60 Blister Dosing Unit 11 5 Active Ventolin HFA 108 (90 Base) MCG/ACT Inhalation Aerosol SolutionIndication s:COPD exacerbation ([facility]) Inhale 2 Puffs by mouth every 6 hours as needed for Cough, Shortness of Breath or Wheezing. 18 g 5 5 Active documented as of this encounter (statuses as of 04/15/2024) Active Problems Problem Noted Date Diagnosed Date [...] as of this encounter (statuses as of 04/15/2024) Resolved Problems Problem Noted Date Diagnosed Date [...] as of this encounter (statuses as of 04/15/2024) Immunizations Name Administration Dates Next Due COVID-19 mRNA, LNP-s, No Pre serve, 2-Dose Series (Pfizer) 01/19/2021,06/10/2020,05/20/2020 Hep B Vac., Dialysis, 4 Dose , IM, 2mL (Engerix B) 12/20/2018,07/21/2018,06/19/2018 PPD 05/03/2018 Pneumococcal Conjugate Vacci ne, 20-valent ([id number]) 03/16/2022 Pneumococcal Polysaccharide PPV23 (Pneumovax) 12/28/2017 Seasonal [...] No 06/16/2023 Does the household have a [facility] hospitall[facility] source of income? (Household - for [...] Assessment Author No 04/15/2015 3:27 PM Farhana eVlazco RN * Do you have serious difficulty [...] Care Team (Late st Contact Info) Description 04/24/2024 9:30 AM EST Nurse Only Urology, [address] [place] [address] Lance Nurse Urology Ismael [address] [facility] [place] [address] 05/01/2024 12:00 PM EST [facility] [address] [facility] [place] [address] Tino Stapleton MD [address] [facility] [address] 05/06/2024 11:00 AM EDT Appointment Interventional Radiology [facility], [facility] 1st Floor [address] [place] [address] 07/29/2024 10:00 AM EDT Office Visit Family [facility] [address] [place] [phone] Beatriz Hair PA-C [address] [place] [address] 09/04/2024 10:00 AM EDT Office Visit Cardiology, [facility] [address] [facility] [place] [address] Nata West CRNP [address] [facility] [place] [address] 11/20/2024 9:45 AM EDT Office Visit Urology, [facility] [address] [place] [address] Travon Canales MD [address] [facility] [place] [id number] Health Maintenance Due Date Last Done Comments [...] Date/Time Associated Diagnosis Comments OUTSIDE LAB RESULTS 04/09/2024 documented in this encounter Results * OUTSIDE LAB RESULTS (04/09/2024) 04/09/2024 Pako Ramos MD LABORATORY Final Result documented in this encounter Advance Directives * Full Code (Latest Code Status on File) Date Activated Date Inactivated Comments 04/15/2015 4:40 PM 04/16/2015 5:24 PM This order r eflects the patients wishes and were consensually agreed upon. Care Teams Ladies' Hat Trimmer Relationship Specialty Start Date End Date Edgar Gibbs MD [address] [place] [phone] PCP - General Family Medicine 07/03/20 documented as of this encounter
--- OUTSIDE RECORDS SUMMARY | 2024-06-10 21:32 | External Medical Summary | Summary of Care ---
Author Name Unknown Organization [facility] Address [address] [facility] [place] [address] Phone [phone] Care Team Providers Care Chief Compliance Officer Name Role Phone Edgar Gibbs MD Primary Care P rovider Encounter Details Date Type Department Care Team (Late st Contact Info) Description 04/02/2024 Result Scan Unspecified Department <No scans attached> Allergies Active Allergy Reactions Criticality Noted Date Comments Latex 07/19/2019 Pantoprazole Sodium Edema face/lips/tongue High 04/0 02/2014 documented as of this encounter (statuses as of 04/08/2024) Medications Cholecalciferol 2000 units Capsule Take 1 [...] 4 Active LORazepam 0.5 MG Oral Tablet (Ativan)Indicatio ns:Panic attack as reaction to stress Take 1 Tablet by mouth every 8 hours as needed for Anxiety. 30 Tablet 5 Active Torsemide 100 MG Oral Tablet (Demadex) Take 1 Tablet by mouth in the morning. One tablet by mouth on non-dialysis days (Monday, Monday, Monday and Monday). 5 Active documented as of this encounter (statuses as of 04/08/2024) Active Problems Problem Noted Date Diagnosed Date [...] as of this encounter (statuses as of 04/08/2024) Resolved Problems Problem Noted Date Diagnosed Date [...] as of this encounter (statuses as of 04/08/2024) Immunizations Name Administration Dates Next Due COVID-19 mRNA, LNP-s, No Pre serve, 2-Dose Series (Appbyme) 01/19/2021,06/10/2020,05/20/2020 Hep B Vac., Dialysis, 4 Dose , IM, 2mL (Engerix B) 12/20/2018,07/21/2018,06/19/2018 PPD 05/03/2018 Pneumococcal Conjugate Vacci ne, 20-valent ([id number]) 03/16/2022 Pneumococcal Polysaccharide PPV23 (Pneumovax) 12/28/2017 Seasonal [...] 04/10/2024 9:15 AM EST Office Visit Urology, [facility] [address] [facility] [place] [address] Travon Canales MD [address] [address] [address] 04/12/2024 9:30 AM EST Office Visit Cardiology, [facility] [address] [facility] [place] [address] Gris Alford CRNP 132 [facility] [place] [address] 05/01/2024 12:00 PM EST Office Visit Pulmonary Medicine, [facility] [address] [facility] [place] [address] Tino Stapleton MD [address] [place] [address] 05/06/2024 11:00 AM EDT Appointment Interventional Radiology [facility], [facility] 1st Floor [address] [place] [address] 07/29/2024 10:00 AM EDT Office Visit [address] [place] [phone] Beatriz Hair PA-C 68 [facility] [place] [address] Health Maintenance Due Date Last Done Comments [...] Date/Time Associated Diagnosis Comments OUTSIDE LAB RESULTS 04/02/2024 documented in this encounter Results * OUTSIDE LAB RESULTS (04/02/2024) 04/02/2024 us No Physician Data Unknown LABORATORY Final Result documented in this encounter Advance Directives * Full Code (Latest Code Status on File) Date Activated Date Inactivated Comments 04/15/2015 4:40 PM 04/16/2015 5:24 PM This order r eflects the patients wishes and were consensually agreed upon. Care Teams Chief Compliance Officer Relationship Specialty Start Date End Date Edgar Gibbs MD [address] [place] [address] [phone] PCP - General Family Medicine 07/03/20 documented as of this encounter
--- OUTSIDE RECORDS SUMMARY | 2024-06-10 21:32 | External Medical Summary | Summary of Care ---
Author Name Unknown Organization [facility] Address [address] [facility] [address] Phone [phone] Care Team Providers Care Gum Rolling Machine Tender Name Role Phone Edgar Gibbs MD Primary Care P rovider Encounter Details Date Type Department Care Team (Late st Contact Info) Description 04/25/2024 Result Scan Unspecified Department Pako Ramos MD [address] [facility] [address] <No scans attached> Allergies Active Allergy Reactions Criticality Noted Date Comments Latex 07/19/2019 Pantoprazole Sodium Edema face/lips/tongue High 04/0 02/2014 documented as of this encounter (statuses as of 04/29/2024) Medications Cholecalciferol 2000 units Capsule Take 1 [...] end stage chronic kidney disease on dialysis ([facility]) Take 1 Tablet by mouth [...] Flush 0.9 % Intravenous SolutionIndication s:Nephrostomy status ([facility]) Flush 1 mL catheter daily as needed for Other (flush nephrostomy). 100 mL 3 5 Active Fluticasone-Umecli din-Vilant 100-62.5-25 MCG/ACT Aerosol Powder Breath Activated (Trelegy Ellipta)Indication s:COPD, group C, by GOLD 2017 classification ([facility]) Inhale 1 Puff by mouth in the morning. 60 Blister Dosing Unit 11 5 Active Ventolin HFA 108 (90 Base) MCG/ACT Inhalation Aerosol SolutionIndication s:COPD exacerbation ([facility]) Inhale 2 Puffs by mouth every 6 hours as needed for Cough, Shortness of Breath or Wheezing. 18 g 5 5 Active documented as of this encounter (statuses as of 04/29/2024) Active Problems Problem Noted Date Diagnosed Date [...] as of this encounter (statuses as of 04/29/2024) Resolved Problems Problem Noted Date Diagnosed Date [...] as of this encounter (statuses as of 04/29/2024) Immunizations Name Administration Dates Next Due COVID-19 mRNA, LNP-s, No Pre serve, 2-Dose Series (Pfizer) 01/19/2021,06/10/2020,05/20/2020 Hep B Vac., Dialysis, 4 Dose , IM, 2mL (Engerix B) 12/20/2018,07/21/2018,06/19/2018 PPD 05/03/2018 Pneumococcal Conjugate Vacci ne, 20-valent ([id number]) 03/16/2022 Pneumococcal Polysaccharide PPV23 (Pneumovax) 12/28/2017 Seasonal [...] No 06/16/2023 Does the household have a [facility] source of income? (Household - for [...] Care Team (Late st Contact Info) Description 05/06/2024 11:00 AM EDT Appointment Interventional Radiology [facility], [facility] 1st Floor [address] [facility] [place] [address] 05/13/2024 11:30 AM EDT Office Visit Pulmonary Medicine, [facility] 132 [facility] [place] [address] Tino Stapleton MD [address] [facility] [place] [address] 05/15/2024 11:00 AM EDT Nurse Only Urology, [facility] [address] [facility] [place] [address] [facility], Nurse Urology [facility] 132 [facility] [place] [address] 07/29/2024 10:00 AM EDT Office Visit Family [facility] [address] [place] [phone] Beatriz Hair PA-C [address] [place] [address] 09/04/2024 10:00 AM EDT Office Visit Cardiology, [facility] [address] [facility] [place] [address] Nata West CRNP 400 [facility] [place] [address] 11/20/2024 9:45 AM EDT Office Visit Urology, [address] [place] [address] Travon Canales MD [address] [place] [address] Health Maintenance Due Date Last Done Comments Adult Wellness Visit 05/18/2009 *COPD SEVERITY VERIFIED BY PFT 03/05/2022 COVID-19 Vaccine ( season) 2023 01/19/2021, 06/10/2020, 05/20/2020 Depression Screening 06/15/2024 06/16/2023 DISCUSS TOBACCO CESSATION (REFER TO SMARTSET #[id number]) 09/24/2024 09/25/2023 (Discussed), 06/03/2022 O2 ASSESSMENT COMPLETED [...] Date/Time Associated Diagnosis Comments OUTSIDE LAB RESULTS 04/25/2024 documented in this encounter Results * OUTSIDE LAB RESULTS (04/25/2024) 04/25/2024 Pako Ramos MD LABORATORY Final Result documented in this encounter Advance Directives * Full Code (Latest Code Status on File) Date Activated Date Inactivated Comments 04/15/2015 4:40 PM 04/16/2015 5:24 PM This order r eflects the patients wishes and were consensually agreed upon. Care Teams Gum Rolling Machine Tender Relationship Specialty Start Date End Date Edgar Gibbs MD [address] [place] [phone] PCP - General Family Medicine 07/03/20 documented as of this encounter
--- OUTSIDE RECORDS SUMMARY | 2024-06-10 21:32 | External Medical Summary | Summary of Care ---
Author Name Unknown Organization [facility] Address [address] [facility] [place] [address] Phone [phone] Care Team Providers Care Automatic Stacker Name Role Phone Edgar Clements MD Primary Care P rovider Reason for Visit * Reason Comments Follow Up * Precert (Within 30 days (routine)) - Authorized Specialty Diagnoses / Procedures Referred By Cecilia t Referred To Contact Urology Diagnoses Malignant neoplasm of prostate (HCC) Procedures IA LEUPROLIDE ACETATE SUSPNSION Travon Canales MD [address] [place] [address] Phone: tel: fax: Travon Canales MD [address] [place] [address] Phone: tel: fax: Referral ID Status Reason Start Date Expiration Date V isits Requested Visits Authorized [id number] Authorized Precert 04/13/2023 02/26/2099 [id number] Encounter Details Date Type Department Care Team (Late st Contact Info) Description 04/10/2024 9:15 AM EST Office Visit Urology, [facility] [address] [place] [address] Travon Canales MD [address] [place] [phone] Prostate cancer (HCC)*; Bladder stones Allergies Active Allergy Reactions Criticality Noted Date Comments Latex 07/19/2019 Pantoprazole Sodium Edema face/lips/tongue High 04/0 02/2014 documented as of this encounter (statuses as of 04/10/2024) Medications Cholecalciferol 2000 units Capsule Take 1 [...] % Intravenous SolutionIndication s:Nephrostomy status ([facility]) Flush 1 mL catheter daily as [...] as of this encounter (statuses as of 04/10/2024) Active Problems Problem Noted Date Diagnosed Date [...] as of this encounter (statuses as of 04/10/2024) Resolved Problems Problem Noted Date Diagnosed Date [...] as of this encounter (statuses as of 04/10/2024) Immunizations Name Administration Dates Next Due COVID-19 mRNA, LNP-s, No Pre serve, 2-Dose Series (iLyngo) 01/19/2021,06/10/2020,05/20/2020 Hep B Vac., Dialysis, 4 Dose , IM, 2mL (Engerix B) 12/20/2018,07/21/2018,06/19/2018 PPD 05/03/2018 Pneumococcal Conjugate Vacci ne, 20-valent ([id number]) 03/16/2022 Pneumococcal Polysaccharide PPV23 (Pneumovax) 12/28/2017 Seasonal [...] documented in this encounter Progress Notes * Travon Canales MD - 04/10/2024 9:15 AM EST [id number] PCP: EDGAR CLEMENTS [address] [place] [address] [phone] Matthew Rowe is a 78 year old male, who presents for six-month follow-up of his history prostate cancer, malignant ureteral obstruction and indwelling percutaneous nephroureteral stent. Patient'spast notes reviewed. He has received a six-month Lupron injection in October of 2023. CT images from March of 2024 are reviewed personally with the patient demonstrating no significant change from previous. Prostate cancer: Diagnosed with June 2014 [place] 5+5 Nephroureteral stent right in place from malignant obstruction since 2015. Previous right-sided stent capped, drains when he needs to void. Bladder stones present. Currently on indefinite androgen deprivation. PSA Results: Lab Results Component Value Date/Time PSA - [facility] 0.36 03/20/2024 08:43 AM PSA - [facility] 0.30 09/18/2023 09:38 AM PSA - [facility] 0.26 04/12/2023 04:50 PM PSA - [facility] 0.30 02/11/2020 12:23 PM PSA - [facility] 0.26 06/10/2019 10:17 AM PSA - [facility] 0.25 01/09/2019 10:[address] scan Mar 2024: IMPRESSION 1. Right lower lobe pneumonia. 2. Bilateral renal atrophy with right nephroureteral stent. No hydronephrosis. 3. Bladder calculi. 4. Bilateral inguinal hernias. Current Outpatient Medications Medication Sig Dispense Refill Cholecalciferol 2000 units Capsule Take 1 Capsule by mouth in the morning. 30 Cap 3 Calcium Acetate, Phos Binder, 667 MG TABS take 2 pills 3 x daily 180 Tab 11 Leuprolide Acetate (3 Month) 22.5 MG Subcutaneous Kit (Eligard) Inject 22.5 mg under the skin. Every 3 months Citalopram Hydrobromide 10 MG Oral Tablet (CeleXA) [...] needed for Other (flushnephrostomy). 100 mL 3 Cfgxolfwxbe-Nujbkxytb-Ccrswq 100-62.5-25 MCG/ACT Aerosol Powder Breath Activated (Trelegy Ellipta) Inhale 1 Puff by mouth in the morning. 60 Blister Dosing Unit 11 Ventolin HFA 108 (90 Base) MCG/ACT Inhalation Aerosol Solution Inhale 2 Puffs by mouth every 6 hours as needed for Cough, Shortness of Breath or Wheezing. 18 g 5 No current facility-administered medications [...] performed by Gera Mcdaniel MD at RADIOLOGY [facility] IR DRAINAGE CATHETER CHANGE Right 08/24/2016 CHANGE OF PERCUTANEOUS TUBE OR DRAINAGE CATHETER WITH XRAY AND CONTRAST MEDIUM performed by Gera Mcdaniel MD at RADIOLOGY [facility] IR GENITORINARY NEPHRO/CYSTO/URETERAL 01/18/2019 IR GENITORINARY NEPHRO/CYSTO/URETERAL [...] NEPHRO/CYSTO/URETERAL 10/08/2023 IR GENITORINARY NEPHRO/CYSTO/URETERAL 02/05/2024 NONE Past Medical History: Diagnosis Date Hypertension, essential INFORMATION 03/2014 [facility]- kidney failure Nephrostomy status (HCC) 03/22/2024 Pleural effusion Use of leuprolide acetate (Lupron) Patient Active Problem List Diagnosis Anemia in end-stage renal disease (HCC) HTN, goal below 140/90 Kidney disease, chronic, stage V (GFR under 15 ml/min) (HCC) Prostate cancer (HCC) Hydronephrosis, right Dialysis patient (HCC) 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 ([facility]) DNR (do not resuscitate) ESRD (end stage renal disease) on dialysis ([facility]) Tobacco user Permanent central venous catheter in place Bladder stones Pleural effusion, right COPD, group C, by GOLD 2017 classification ([facility]) Nonrheumatic aortic valve stenosis Supplemental oxygen dependent Constitutional: (-) fever and (-) chills Eyes: (+) corrective lenses Male : see HPI Musculoskeletal: (+) joint pain,(+) back pain Neurology: (-) negative: no focal neurologic defect [...] moist. Eyes: Extraocular Movements: Extraocular movements intact. Cardiovascular: Pulses: Normal pulses. Pulmonary: Effort: Pulmonary effort is normal. No respiratory distress. Abdominal: Palpations: Abdomen is soft. Tenderness: There is no abdominal tenderness. Musculoskeletal: Cervical back: Normal range of motion and neck supple. Lymphadenopathy: Cervical: No cervical adenopathy. Skin: Coloration: Skin is not cyanotic or pale. Neurological: Mental Status: He is alert and oriented to person, place, and time. Psychiatric: Attention and Perception: Attention normal. Mood and Affect: Mood and affect normal. Impression/Plan: 78-year-old male with a history of advanced prostate cancer, indwelling right-sided nephroureteral stent on indefinite androgen deprivation. Patient will be due for a six-month Lupron next month. Will try to coordinate his office visit and nursing visit for Lupron in the fall of 2024. PSA at that time. Has upcoming appointment for nephroureteral stent exchange. Health is overall stable, will try to avoid unnecessary intervention. Contact us with any significant changes in health or worrisome signs and symptoms. Above content is personally reviewed. Patient vocalizes good understanding of the treatment plan. Travon Canales MD 7:43 AM 04/10/2024 documented in this encounter Nursing Notes * Emily Grider LPN - 04/10/2024 8:57 AM EST 6 month ret, CT results high-grade prostate cancer managed with indwelling nephroureterostomy tube, history of stone burden. 6 month Lupron given 11/01/23 PSA Results: Lab Results Component Value Date/Time PSA - [facility] 0.36 03/20/2024 08:43 AM PSA - [facility] 0.30 09/18/2023 09:38 AM PSA - [facility] 0.26 04/12/2023 04:50 PM PSA - [facility] 0.30 02/11/2020 12:23 PM PSA - [facility] 0.26 06/10/2019 10:17 AM PSA - [facility] 0.25 01/09/2019 10:53 AM No concerns documented in this encounter Plan of Treatment Upcoming Encounters Date Type Department Care Team (Late st Contact Info) Description 04/12/2024 9:30 AM EST Office Visit Cardiology, [facility] [place] [address] Gris Alford CRNP [address] [place] [address] 04/24/2024 9:30 AM EST Nurse Only Urology, [facility] [address] [place] [address] [facility], Nurse Urology [facility] [address] [place] [address] 05/01/2024 12:00 PM EST Office Visit Pulmonary Medicine, [facility] 132 [facility] [place] [address] Tino Stapleton MD [address] [place] [address] 05/06/2024 11:00 AM EDT Appointment Interventional Radiology [facility] [address] [facility] [place] [phone] 07/29/2024 10:00 AM EDT Office Visit [facility] [address] [place] [phone] Beatriz Hair PA-C [address] [place] [address] 11/20/2024 9:45 AM EDT Office Visit Urology, [facility] 132 [facility] [place] [address] Travon Canales MD [address] [place] [address] Scheduled Orders Name Type Priority Associated Diagnoses Orde r Schedule PSA Lab Routine Prostate cancer (HCC) Expected: 10/08/2024 (Approximate), Expires: 04/10/2025 Health Maintenance Due Date Last Done Comments [...] and were consensually agreed upon. Care Teams Automatic Stacker Relationship Specialty Start Date End Date dEgar Clements MD [address] [place] [phone] PCP - General Family Medicine 07/03/20 documented as of this encounter
--- OUTSIDE RECORDS SUMMARY | 2024-06-10 21:33 | External Medical Summary ---
Author Name Unknown Address Unknown Organization [id number]:[facility] - [address] [facility] [address] [place] [address] Laboratory Report Ordering Provider Test Date Status ENRRIQUE VILLALBA 03/20/2024 08:43:14 Final Observation Date Value Abnormality Reference (Units ) Status PSA 03/20/2024 08:43:14 0.36 <4.10 (ng/ mL) Final Performing Location [facility] - [address] [place] [address]
--- OUTSIDE RECORDS SUMMARY | 2024-06-10 21:33 | External Medical Summary ---
Author Name Unknown Address Unknown Organization K01:[facility]ORY [facility] - [address] [place] [address] Laboratory Report Ordering Provider Test Date Status CIARA SANTOS 03/20/2024 08:43:14 Final Observation Date Value Abnormality Reference (Units ) Status Folic Acid 03/20/2024 08:43:14 >20.0 >4.5 (ng/ mL) Final Performing Location [facility] - [address] [place] [address]
--- OUTSIDE RECORDS SUMMARY | 2024-06-10 21:33 | External Medical Summary | Summary of Care ---
Author Name Unknown Organization [facility] Address [address] [facility] [place] [address] Phone [phone] Care Team Providers Care Product Delivery Specialist Name Role Phone Edgar Gibbs MD Primary Care P rovider Reason for Visit * Reason Onset Date Comments Order Request 12/13/2023 Encounter Details Date Type Department Care Team (Late st Contact Info) Description 12/13/2023 Telephone [facility] [address] [place] [address] Pako Ramos MD [address] [place] [address] Order Request Allergies Active Allergy Reactions Criticality Noted Date Comments Latex 07/19/2019 Pantoprazole Sodium Edema face/lips/tongue High 04/0 02/2014 documented as of this encounter (statuses as of 03/13/2024) Medications Cholecalciferol 2000 units Capsule Take 1 [...] WHEEZING 18 g 5 01/21/20 23 Active Torsemide 100 MG Oral Tablet (Demadex) Take 1 Tablet by mouth in the morning. 90 Tablet 3 05/11/19 24 Active Citalopram Hydrobromide 10 MG Oral Tablet (CeleXA) Take 1 Tablet by mouth every night at bedtime. 30 Tablet 5 05/29/19 24 Active amLODIPine Besylate 5 MG Oral Tablet (Norvasc)Indicati ons: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 (HCC) Take 1 Tablet by mouth in the morning. 90 Tablet 3 09/28/19 24 Active LORazepam 0.5 MG Oral Tablet (Ativan)Indicatio ns:Panic attack as reaction to stress Take 1 Tablet by mouth every 8 hours as needed for Anxiety. 30 Tablet 11/16/19 24 Active Budeson-Glycopyrr ol-Formoterol 160-9-4.8 MCG/ACT Inhalation AerosolIndication s:COPD, group C, by GOLD 2017 classification ([facility]) Inhale 2 Puffs by mouth in the morning and 2 Puffs before bedtime. 10.7 g 5 12/06/19 24 Active Nephro-Farzana 0.8 MG Oral Tablet TAKE ONE TABLET BY MOUTH ONCE DAILY 90 Tablet 3 11/23/19 23 024 Discontinued documented as of this encounter (statuses as of 03/13/2024) Active Problems Problem Noted Date Diagnosed Date [...] as of this encounter (statuses as of 03/13/2024) Resolved Problems Problem Noted Date Diagnosed Date [...] as of this encounter (statuses as of 03/13/2024) Immunizations Name Administration Dates Next Due COVID-19 mRNA, LNP-s, No Pre serve, 2-Dose Series (Pfizer) 01/19/2021,06/10/2020,05/20/2020 Hep B Vac., Dialysis, 4 Dose , IM, 2mL (Engerix B) 12/20/2018,07/21/2018,06/19/2018 PPD 05/03/2018 Pneumococcal Conjugate Vacci ne, 20-valent ([id number]) 03/16/2022 Pneumococcal Polysaccharide PPV23 (Pneumovax) 12/28/2017 Seasonal [...] on file Are you (or your family) chlele eless or worried that you might be [...] Miscellaneous Notes * Telephone Encounter - Judy Hamilton RN - 12/14/2023 8:28 AM EDT LMAM with call back number regarding ordered test. * Telephone Encounter - Emilee oSuza MD - 12/13/2023 4:37 PM EDT Chest x-ray orders in; please update patient * Telephone Encounter - Renetta Medina OSA - 12/13/2023 1:40 PM EDT Pt states he was told last to come in and get an x-ray. I don't see an order. Can one please be placed and pt be called when completed, if appropriate? Thank you documented in this encounter Plan of Treatment Upcoming Encounters Date Type Department Care Team (Late st Contact Info) Description 03/20/2024 8:30 AM EST Laboratory Laboratory Patient Service [facility] [address] [place] [phone] [address] 04/03/2024 9:30 AM EST Imaging Radiology [address] 132 [facility] [place] [phone] 04/08/2024 10:40 AM EST Office Visit [address] [phone] Edgar Gibbs MD [address] [place] [address] 04/10/2024 9:15 AM EST Office Visit Urology, [facility] [address] [facility] [place] [address] Travon Canales MD [address] [place] [address] 04/12/2024 9:30 AM EST Office Visit Cardiology, [facility] [address] [facility] [place] [address] Grsi Alford CRNP 132 [facility] [place] [address] 05/01/2024 12:00 PM EST Office Visit Pulmonary Medicine, [facility] [address] [facility] [place] [address] Tino Stapleton MD [address] [facility] [place] [address] 05/06/2024 11:00 AM EDT Appointment Interventional Radiology [facility], [facility] 1st Floor [address] [place] [address] Health Maintenance Due Date Last [...] Associated Diagnosis Comments XR CHEST 2 VIEWS Routine 12/19/2023 3:33 PM EDT Pleural effusion, right SOB (shortness of breath) Dialysis patient (HCC) documented in this encounter Results * XR CHEST 2 VIEWS (12/19/2023 3:33 PM EDT) Anatomical Region Laterality Modality Chest Digital Radiogra phy 12/20/2023 4:08 PM EDT Impressions 12/20/2023 4:06 PM EDT IMPRESSION Questionable persistent small right pleural effusion versus right basilar scarring. Narrative 12/20/2023 4:06 PM EDT EXAM XR CHEST 2 VIEWS-12/19/2023 3:33 pm HISTORY Crackles on lung exam; dialysis patient with recent pleural effusion COMPARISON Chest radiograph 11/17/2023. TECHNIQUE PA and lateral views of the chest are examined. FINDINGS Stable scarring in the right lower lung field with persistent right costophrenic angle blunting. Right pleural calcifications also again seen. The pulmonary vasculature and cardiomediastinal silhouette are within normal limits. No acute osseous finding. Procedure Note Eber Payne MD - 12/20/2023 EXAM XR CHEST 2 VIEWS-12/19/2023 3:33 pm HISTORY Crackles on lung exam; dialysis patient with recent pleural effusion COMPARISON Chest radiograph 11/17/2023. TECHNIQUE PA and lateral views of the chest are examined. FINDINGS Stable scarring in the right lower lung field with persistent rightcostophrenic angle blunting. Right pleural calcifications also againseen. The pulmonary vasculature and cardiomediastinal silhouette arewithin normal limits. No acute osseous finding. IMPRESSION IMPRESSION Questionable persistent small right pleural effusion versus right basilarscarring. us Emilee Souza MD RADIOLOGY (RAD GENERAL) F inal Result documented in this encounter Visit Diagnoses Diagnosis Pleural effusion, right- Primary Unspecified pleural effusion SOB (shortness of breath) Shortness of breath Dialysis patient (HCC) Renal dialysis status documented in this encounter Advance Directives * Full Code (Latest Code Status on File) Date Activated Date Inactivated Comments 04/15/2015 4:40 PM 04/16/2015 5:24 PM This order r eflects the patients wishes and were consensually agreed upon. Care Teams Product Delivery Specialist Relationship Specialty Start Date End Date Edgar Gibbs MD [address] [place] [address] [place] [address] PCP - General Family Medicine 07/03/20 documented as of this encounter
--- OUTSIDE RECORDS SUMMARY | 2024-06-10 21:33 | External Medical Summary ---
Author Name Unknown Address Unknown Organization K01:LABORATORY [facility] [place] - [address] [facility] [place] [address] Laboratory Report Ordering Provider Test Date Status CIARA SANTOS 03/20/2024 08:43:14 Final Observation Date Value Abnormality Reference (Units ) Status Triglyceride 03/20/2024 08:43:14 83 <=174 ( mg/dL) Final Triglyceride Reference Range s (mg/dL):
<150 Acceptable
150-174 Borderline high
175-499 High
>=500 Very high Cholesterol 03/20/2024 08:43:14 147 <200 (mg /dL) Final Total Cholesterol Reference Ranges (mg/dL):
<200 Desirable
200-239 Borderline high
>=240 High HDL 03/20/2024 08:43:14 51 >39 (mg/dL ) Final HDL Cholesterol Reference Ra nges (mg/dL):
>=60 High (Desirable)
<50 Low (Undesirable) For Females
<40 Low (Undesirable) For Males NON-HDL CHOLESTEROL 03/20/2024 08:43:14 96 <=159 (mg/dL) Final Non-HDL Cholesterol Referenc e Range (mg/dL):
<100 Target level for high risk ASCVD patient
<130 Optimal for general population
130-159 Near optimal for general population
160-189 Borderline High
190-219 High
>=220 Very High LDL, (calculated) 03/20/2024 08:43:14 79 <= 129 (mg/dL) Final LDL Cholesterol Reference Ra nges (mg/dL):
<70 Target level for high risk ASCVD patient
<100 Optimal for general population
100-129 Near optimal for general population
130-159 Borderline high
160-189 High
>=190 Very high Performing Location LABORATORY [facility] - [address] [facility] [address]
--- OUTSIDE RECORDS SUMMARY | 2024-06-10 21:33 | External Medical Summary ---
Author Name Unknown Address Unknown Organization K01:[facility] [place] [address] [facility] [place] [address] Laboratory Report Ordering Provider Test Date Status CIARA SANTOS 03/20/2024 08:43:14 Final Observation Date Value Abnormality Reference (Units ) Status BUN 03/20/2024 08:43:14 33 Above high normal 6-20 (mg/dL) Final Creatinine 03/20/2024 08:43:14 5.1 Above high normal 0.6-1.2 (mg/dL) Final Glomerular filtration rate/1.73 sq M.predicted [Volume Rate/Area] in Serum, Plasma or Blood by Creatinine-based formula (CKD-EPI) 03/20/2024 08:43:14 11 Below low normal >=60 (mL/min) Final eGFR is calculated based on the CKD-EPI 2020 equation. Sodium 03/20/2024 08:43:14 141 135-146 (m mol/L) Final Potassium 03/20/2024 08:43:14 4.9 3.5-5.1 (m mol/L) Final Cl 03/20/2024 08:43:14 94 Below low normal 98- 107 (mmol/L) Final CO2 03/20/2024 08:43:14 31 22-32 (mmo l/L) Final Anion gap 03/20/2024 08:43:14 16 Above high normal 7- 15 (mmol/L) Final Glucose 03/20/2024 08:43:14 72 70-120 (mg /dL) Final Albumin 03/20/2024 08:43:14 4.1 3.8-5.0 (g /dL) Final AST (Aspartate aminotransferase) 03/20/2024 08:43:14 17 10-50 (U/L) Fin al Alk Phos 03/20/2024 08:43:14 131 Above high normal 35 -130 (U/L) Final Bilirubin, Total 03/20/2024 08:43:14 0.3 <=1 .2 (mg/dL) Final Calcium 03/20/2024 08:43:14 8.6 8.4-10.2 ( mg/dL) Final Protein 03/20/2024 08:43:14 6.6 6.0-8.3 (g /dL) Final ALT (Alanine aminotransferase) 03/20/2024 08:43:14 21 10-50 (U/L) Billy morales Performing Location [facility] [place] [address] [facility] [address]
--- OUTSIDE RECORDS SUMMARY | 2024-06-10 21:33 | External Medical Summary | Summary of Care ---
Author Name Unknown Organization [facility] Address [address] [facility] [place] [address] Phone [phone] Care Team Providers Care Management Trainee Program Stores Name Role Phone Edgar Clements MD Primary Care P rovider Reason for Visit * Reason Onset Date Comments Medication Refill 03/21/2024 Encounter Details Date Type Department Care Team ([facility] st Contact Info) Description 03/21/2024 Refill Family [address] [phone] Edgar Clements MD [address] [place] [phone] Panic attack as reaction to stress Allergies [...] Acetate (3 Month) 22.5 MG Subcutaneous Kit (EliVasoNovad) Inject 22.5 mg under the skin. Every [...] morning. 90 Tablet 3 09/28/19 24 Active Budeson-Glycopyrro l-Formoterol 160-9-4.8 MCG/ACT Inhalation AerosolIndications :COPD, group C, by GOLD 2017 classification (HCC) Inhale 2 Puffs by mouth in the morning and 2 Puffs before bedtime. 10.7 g 5 12/06/19 24 Active Gill-Farzana Rx 1 MG Oral Tablet TAKE ONE TABLET BY MOUTH ONCE DAILY 90 Tablet 3 12/18/19 24 Active LORazepam 0.5 MG Oral Tablet (Ativan)Indication s:Panic attack as reaction to stress Take 1 Tablet by mouth every 8 hours as needed for Anxiety. 30 Tablet 03/21/19 25 Active LORazepam 0.5 MG Oral Tablet (Ativan)Indication s:Panic attack as reaction to stress Take 1 Tablet by mouth every 8 hours as needed for Anxiety. 30 Tablet 11/16/19 24 025 Discontin ued(Refil l) documented as of [...] PPD 05/03/2018 Pneumococcal Conjugate Vacci ne, 20-valent ([id number]) 03/16/2022 Pneumococcal Polysaccharide PPV23 (Pneumovax) 12/28/2017 Seasonal [...] Telephone Encounter - Edgar Clements MD - 03/21/2024 12:51 PM ESTSigned Prescriptions: Disp Refills LORazepam 0.5 MG Oral Tablet (Ativan) 30 Tab*0 Sig: Take 1 Tablet by mouth every 8 hours as needed for Anxiety. Authorizing Provider: EDGAR CLEMENTS * Telephone Encounter - Jean Claude Andrew [facility] - 03/21/2024 12:16 PM ESTPending Prescriptions: Disp Refills LORazepam 0.5 MG Oral Tablet (Ativan) 30 Tab*0 Sig: Take 1 Tablet by mouth every 8 hours as needed for Anxiety. * Telephone Encounter - Jean Claude Andrew [facility] - 03/21/2024 12:15 PM EST I have reviewed the patient’s controlled substance dispensing history in the Prescription Drug Monitoring Program in compliance with the [facility] regulations before prescribing a controlled substance. PDMP checked on 03/21/2024. Pending Prescriptions: Disp Refills LORazepam 0.5 MG Oral Tablet (Ativan) 30 Tab*0 Sig: Take 1 Tablet by mouth every 8 hours as needed for Anxiety. Last Visit: 12/06/2023 (in office), Visit date not found (telemedicine) Next Visit: 03/22/2024 Date medication was last filled: 11-16-23 Date medication is due for refill: 11-26-23 Pharmacy: [facility] [address] Is this request for a controlled substance? Yes and Urine Drug Screen Not completed Toxicology results: No results found. However, due to the size of the patient record, not all encounters were searched.Please check Results Review for a complete set of results. Please approve if appropriate. Jewel Joseph.Ph. Clinical Pharmacist [facility] ([facility]) [address] [place] [address], [facility] [address] [place] [address] MC: [id number] 03/21/2024,12:15 PM * Telephone Encounter - Manju Faria, management accounts manager - 03/21/2024 8:59 AM EST Did you pend patient's preferred pharmacy and medication before forwarding?yes Pharmacy: [facility] [address] [facility] Pending Prescriptions: Disp Refills LORazepam 0.5 MG Oral Tablet (Ativan) 30 Tab*0 Sig: Take 1 Tablet by mouth every 8 hours as needed for Anxiety. Last Visit: 12/06/2023 (in office), Visit date not found (telemedicine) Next Visit: 03/22/2024 If no future appointments scheduled, and last appointment is greater than a year ago, please schedule patient for a follow-up appointment Last date the medication was ordered: 11/16/2023 Is this request for a controlled substance?Yes, What was the last refill date 11/16/2023 w/ and dosage 0.5 mg and Urine Drug Screen Not completed Urine Drug Screen:No results found. However, due to the size of the patient record, not all encounters were searched. Please check Results Review for a complete set of results. Patient Phone Numbers Labs: Lab Results Component Value Date/Time CREAT 5.1 (H) 03/20/2024 08:43 AM CREAT 4.1 (H) 02/11/2020 12:16 PM POTASSIUM 4.9 03/20/2024 08:43 AM POTASSIUM 3.8 02/11/2020 12:16 PM TSH 2.74 03/20/2024 08:43 AM LDL 79 03/20/2024 08:43 AM LDL 59 04/24/2014 07:42 AM ALT 21 03/20/2024 08:43 AM ALT 18 09/03/2014 01:20 PM documented in this encounter Plan of Treatment Upcoming Encounters Date Type Department Care Team ([facility] st Contact Info) Description 03/22/2024 2:00 PM EST Office Visit [address] [phone] Camila Herron MD [facility] [place] [address] 04/03/2024 9:30 AM EST Imaging Radiology [address] 132 [facility] [place] [phone] 04/08/2024 10:40 AM EST Office Visit [facility] [address] [place] [address] Edgar Clements MD [address] [place] [address] 04/10/2024 9:15 AM EST Office Visit Urology, [facility] 132 [facility] [place] [address] Travon Canales MD [address] [place] [address] 04/12/2024 9:30 AM EST Office Visit Cardiology, [facility] [address] [facility] [place] [address] Gris Alford CRNP 132 [facility] [place] [address] 05/01/2024 12:00 PM EST Office Visit Pulmonary Medicine, [facility] [address] [facility] [place] [address] Tino Stapleton MD [address] [place] [address] 05/06/2024 11:00 AM EDT Appointment Interventional Radiology [facility], [facility] 1st Floor [address] [place] [facility] [place] [address] Health Maintenance Due Date Last Done [...] and were consensually agreed upon. Care Teams Management Trainee Program Stores Relationship Specialty Start Date End Date Edgar Clements MD [address] [place] [address] PCP - General Family Medicine 07/03/20 documented as of this encounter
--- OUTSIDE RECORDS SUMMARY | 2024-06-10 21:33 | External Medical Summary ---
Author Name Unknown Address Unknown Organization K01:LABORATORY [facility] [place] - [address] [place] [address] Laboratory Report Ordering Provider Test Date Status CIARA SANTOS 03/20/2024 08:43:14 Final Observation Date Value Abnormality Reference (Units ) Status Vitamin B12 03/20/2024 08:43:14 [phone] (pg/mL) Final Performing Location LABORATORY [facility] - [address] [place] [address]
--- OUTSIDE RECORDS SUMMARY | 2024-06-10 21:33 | External Medical Summary ---
Author Name Unknown Address Unknown Organization K01:LAB[facility]ATORY [facility] - 100 [facility] [place] [address] Laboratory Report Ordering Provider Test Date Status CIARA SANTOS 03/20/2024 08:43:14 Final Observation Date Value Abnormality Reference (Units ) Status WBC, Total 03/20/2024 08:43:14 6.29 4.00-10.8 0 (K/uL) Final RBC 03/20/2024 08:43:14 3.27 4.50-5.25 (M/uL) Final Hemoglobin 03/20/2024 08:43:14 10.6 Below low normal 14 .0-16.8 (g/dL) Final Anemia reflex testing trigge rs on a HGB < 12.0 for Females and HGB < 13.0 for Males in accordance with the WHO Anemia Guidelines
Anemia reflex testing triggers on a HGB < 12.0 for Females and HGB < 13.0 for Males in accordance with the WHO Anemia Guidelines HCT 03/20/2024 08:43:14 34.3 Below low normal 40. 0-48.4 (%) Final MCV 03/20/2024 08:43:14 104.9 82.0-99.5 (fL) Final MCH 03/20/2024 08:43:14 32.4 27.0-34.0 (pg) Final MCHC 03/20/2024 08:43:14 30.9 32.0-36.0 (g/dL) Final RDW 03/20/2024 08:43:14 14.3 11.5-15.5 (%) Final Platelets 03/20/2024 08:43:14 188 140-400 (K /uL) Final MPV 03/20/2024 08:43:14 10.4 6.6-11.1 ( fL) Final Nucleated erythrocytes/100 leukocytes [Ratio] in Blood by Automated count 03/20/2024 08:43:14 0 <=0 (/100 WBCs) Fi nal Performing Location LABORATORY [facility] - [address] [facility] [address]
--- OUTSIDE RECORDS SUMMARY | 2024-06-10 21:33 | External Medical Summary | Summary of Care ---
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 10.7 g 5 4 Active Gill-Farzana Rx 1 MG Oral Tablet TAKE ONE TABLET BY MOUTH ONCE DAILY 90 Tablet 3 4 Active documented as of this encounter (statuses as of 03/20/2024) Active Problems Problem Noted Date Diagnosed Date [...] as of this encounter (statuses as of 03/20/2024) Resolved Problems Problem Noted Date Diagnosed Date [...] as of this encounter (statuses as of 03/20/2024) Immunizations Name Administration Dates Next Due COVID-19 mRNA, LNP-s, No Pre serve, 2-Dose Series (Pfizer) 01/19/2021,06/10/2020,05/20/2020 Hep B Vac., Dialysis, 4 Dose , IM, 2mL (Engerix B) 12/20/2018,07/21/2018,06/19/2018 PPD 05/03/2018 Pneumococcal Conjugate Vacci ne, 20-valent ([id number]) 03/16/2022 Pneumococcal Polysaccharide PPV23 (Pneumovax) 12/28/2017 Seasonal [...] Description 03/22/2024 2:00 PM EST Office Visit [facility] [address] [place] [phone] Camila Herron MD [address] [facility] [address] [place] [address] 04/03/2024 9:30 AM EST Imaging Radiology [facility] 1st [facility] [address] [place] [address] 04/08/2024 10:40 AM EST Office Visit [facility] [address] [place] [phone] Edgar Gibbs MD [address] [place] [address] 04/10/2024 9:15 AM EST Office Visit Urology, [facility] 132 [facility] [place] [address] Travon Canales MD [address] [place] [address] 04/12/2024 9:30 AM EST Office Visit Cardiology, [facility] 132 [facility] [place] [address] Gris Alford CRNP 132 [facility] [place] [address] 05/01/2024 12:00 PM EST Office Visit Pulmonary Medicine, [facility] 132 [facility] [place] [address] Tino Stapleton MD [address] [place] [address] 05/06/2024 11:00 AM EDT Appointment Interventional Radiology [facility] [place] 1st Floor [address] [place] [address] Pending Results Name Type Priority Associated Diagnoses Date /Time CBC WITH WBC DIFFERENTIAL AND ANEMIA REFLEX WORKUP Lab Routine 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 ([facility]) 03/20/2024 8:43 AM EST COMPREHENSIVE METABOLIC PANEL Lab Routine 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 ([facility]) 03/20/2024 8:43 AM EST LIPID PANEL WITH DIRECT LDL IF TG IS HIGH Lab Routine 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 ([facility]) 03/20/2024 8:43 AM EST PSA Lab Routine Prostate cancer ([facility]) 03/20/2024 8:43 AM EST ANEMIA CBC Lab Routine 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 ([facility]) 03/20/2024 8:43 AM EST DIFFERENTIAL, AUTOMATED Lab Routine 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 Care Teams Oyster Shipper Relationship Specialty Start Date End Date Edgar Gibbs MD [address] [place] [phone] PCP - General Family Medicine 07/03/20 documented as of this encounter
--- OUTSIDE RECORDS SUMMARY | 2024-06-10 21:33 | External Medical Summary ---
Author Name Unknown Address Unknown Organization [id number]:LABORATORY [facility] – [place], [place] - [address] [place] [address] Laboratory Report Ordering Provider Test Date Status CIARA SANTOS 03/20/2024 08:43:14 Final Observation Date Value Abnormality Reference (Units ) Status Retic, % (auto) 03/20/2024 08:43:14 1.90 0.80-1.90 (%) Final Reticulocytes, Absolute 03/20/2024 08:43:14 61.6 31.3-100.1 (K/uL) Final Reticulocyte fraction, immature 03/20/2024 08:43:14 14.9 2.5-20.6 (%) Final Reticulocyte HGB 03/20/2024 08:43:14 35.1 29.7-37.4 (pg) Final Performing Location LABORATORY [facility] – [place], [place] - [address] [place] [address]
--- OUTSIDE RECORDS SUMMARY | 2024-06-10 21:33 | External Medical Summary ---
Author Name Unknown Address Unknown Organization [id number]:[facility] [place] [address] [facility] [place] [address] Laboratory Report Ordering Provider Test Date Status CIARA SANTOS 03/20/2024 08:43:14 Final Observation Date Value Abnormality Reference (Units ) Status SYNC LEUKOCYTES IN BLOOD BY AUTOMATED COUNT 03/20/2024 08:43:14 6.29 4.00-10.80 (K/uL) Final Segs 03/20/2024 08:43:14 73.1 40.0-75.0 (%) Final Lymphs % 03/20/2024 08:43:14 14.1 Below low normal 18.0-42.0 (%) Final Monos 03/20/2024 08:43:14 10.0 1.0-11.0 (%) Final Eosinophils 03/20/2024 08:43:14 2.1 0.0-6.0 (%) Final Basos 03/20/2024 08:43:14 0.5 0.0-2.0 (%) Final Immature Granulocyte, Percent 03/20/2024 08:43:14 0.2 0.0-2.0 (%) Final Absolute Segs 03/20/2024 08:43:14 4.60 1.80-7.70 (K/uL) Final Lymphs, absolute 03/20/2024 08:43:14 0.89 Below low normal 1.00-4.80 (K/ul) Final Monos, Abs 03/20/2024 08:43:14 0.63 0.00-1.10 (K/uL) Final Eos, Abs 03/20/2024 08:43:14 0.13 0.00-0.70 (K/uL) Final Basos, Abs 03/20/2024 08:43:14 0.03 0.00-0.20 (K/uL) Final Immature Granulocytes, Number 03/20/2024 08:43:14 0.01 0.00-0.20 (K/uL) Final Performing Location [facility] [place] [facility] [place] [address]
--- OUTSIDE RECORDS SUMMARY | 2024-06-10 21:33 | External Medical Summary ---
Author Name Unknown Address Unknown Organization [id number]:LAB[facility]ATORY [facility] - [address] [place] [address] Laboratory Report Ordering Provider Test Date Status CIARA SANTOS 03/20/2024 08:43:14 Final Observation Date Value Abnormality Reference (Units ) Status Ferritin 03/20/2024 08:43:14 1391 Above high normal 30 -400 (ng/mL) Final Performing Location LAB[facility]ATORY [facility] - [address] [place] [address]
--- OUTSIDE RECORDS SUMMARY | 2024-06-10 21:33 | External Medical Summary ---
Author Name Unknown Address Unknown Organization [id number]:[facility] [place] - [address] [place] [address] Laboratory Report Ordering Provider Test Date Status CIARA SANTOS 03/20/2024 08:43:14 Final Observation Date Value Abnormality Reference (Units ) Status TSH 03/20/2024 08:43:14 2.74 0.27-4.20 (uIU/mL) Final Performing Location LAB[facility]ATORY [facility] - [address] [place] [address]
--- OUTSIDE RECORDS SUMMARY | 2024-06-10 21:33 | External Medical Summary ---
Author Name Unknown Address Unknown Organization [id number]:LABORATORY [facility] – [place] - [address] [place] [address] Laboratory Report Ordering Provider Test Date Status CIARA SANTOS 03/20/2024 08:43:14 Final Observation Date Value Abnormality Reference (Units ) Status Iron 03/20/2024 08:43:14 130 45-176 (ug/dL) Final Iron-binding capacity 03/20/2024 08:43:14 233 Below low normal 250-425 (ug/dL) Final Transferrin Sat % 03/20/2024 08:43:14 56 Above high normal 15-55 (%) Final Performing Location LABORATORY [facility] - [address] [place] [address]
--- NOTE | 2024-06-10 22:20 | Emergency Department Note ---
History of Present Illness General Chief complaint: Swelling/Edema to Extremity Stated complaint: ARM SWELLING, ISSUES WITH DIALYSIS Time Seen by Provider: 06/10/24 14:23 History of Present Illness Provider complaint: Needs dialysis 79-year-old male end-stage renal disease on hemodialysis Monday presents emergency department stating he needs dialysis. Patient states he went to dialysis on Monday and they could not dialyze him because he states they infiltrated his fistula. He states he went to dialysis today and they thought his arm was too bruised and swollen so he sent him to the ER to get dialysis. Patient reports no symptoms. No fevers. No difficulty breathing. Home Medications Medication Instructions Recorded Confirmed Type albuterol sulfate 90 mcg/actuation 2 puff inhalation Q4H PRN 11/18/23 03/13/24 History aerosol inhaler (Ventolin HFA) Shortness Of Breath Or Wheezing amlodipine 5 mg tablet 5 mg PO DAILY 11/18/23 03/13/24 History citalopram 10 mg tablet 10 mg PO HS 11/18/23 03/13/24 History lorazepam 0.5 mg tablet 0.5 mg PO TID PRN Anxiety 11/18/23 03/13/24 History torsemide 100 mg tablet 100 mg PO UD 11/18/23 03/13/24 History vitamin B complex-vitamin C-folic 1 tab PO DAILY 11/18/23 03/13/24 History acid 0.8 mg tablet (Nephro-Farzana) budesonide 160 mcg-glycopyr 9 2 inh inhalation BID 03/13/24 03/13/24 History mcg-formot 4.8 mcg/actuation HFA inhaler (Breztri Aerosphere) Allergies Allergy/AdvReac Type Severity Reaction Status Date / Time pantoprazole Allergy Severe EDEMA Verified 07/03/23 23:53 FACE/LIPS/TONGUE latex Allergy Unknown ON Verified 07/04/23 00:00 TongtechER MED LIST Past Med/Surg History Problem List (Updated 06/10/24 @ 22:20 by Ananda Jordan MD) Hyperkalemia (Acute) Dialysis AV fistula malfunction Hyperkalemia, diminished renal excretion Elevated troponin (Acute) Acute hyperkalemia (Acute) Dialysis patient (Acute) Hypoxia (Acute) Volume overload Anemia in ESRD (end-stage renal disease) COPD exacerbation (Acute) Acute on chronic anemia Acute pulmonary edema End stage renal disease Aortic stenosis PAT (paroxysmal atrial tachycardia) Premature atrial complexes Bradycardia Hypertensive urgency Acute hypoxemic respiratory failure (Acute) Pulmonary edema (Acute) Pneumothorax (Acute) Demand ischemia Atypical pneumonia Hypoxia Nephrostomy status Pleural effusion (Acute) Acute dyspnea (Acute) Hypoxemia (Acute) Central venous catheter in place Anemia (Chronic) Renal failure (Acute) Chronic kidney disease (Acute) [place] catheter problem (Acute) UTI (urinary tract infection) (Acute) Asymptomatic hypertensive urgency Abnormal urine findings Obstructed nephrostomy tube DVT prophylaxis DNR (do not resuscitate) Encounter for pre-operative examination Tobacco use (Chronic) Chronic anemia (Chronic) Chronic indwelling [place] catheter (Chronic) HTN (hypertension) (Chronic) Was treated for hypertensive urgency at [facility] 11/2017 Prostate cancer (Chronic) Currently in remission. On Leupron injections. CKD (chronic kidney disease), stage V (Chronic) DIALYSIS 3 X WEEK [place] PA (TUES/THURS/SAT) VIA PERMA CATH Hyperkalemia (Acute) On a K restricted diet Urinary retention (Chronic) Bladder stones (Chronic) Medical History Pneumonia SOB (shortness of breath) Anemia Acute on chronic hypoxic respiratory failure Dialysis patient COPD (chronic obstructive pulmonary disease) ESRD (end stage renal disease) on dialysis Bladder stones SOB (shortness of breath) Anemia Hypoxia Acute on chronic respiratory failure with hypoxia and hypercapnia AV fistula left arm Permanent central venous catheter in place Surgical History History of surgery PLACEMENT OF NEPHROSTOMY TUBE Family History Other Breast cancer Lung cancer No pertinent family history Stomach cancer Social History Smoking Status: Current every day smoker Tobacco Type: Cigarettes Cigarettes Per Day: 4-5; Second Hand Exposure: No; Do You Dip or Chew Tobacco: No; Hx Alcohol Use: No Hx Substance Use: No Preferred Language: Telugu Communication Ability: Effective Visual Impairment: No Limitations 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 Beliefs That Will Affect Care: Rastafari Rastafari Beliefs: Caodaism Nondenominational marital status: Current Living Situation: Spouse Current Living Situation Comment: Home Feels Safe at Home: Yes Assistive Devices: Denture - Upper, Denture - Lower and Glasses Physical Exam Vital Signs Vital Signs - 24 hr 06/10/24 13:20 06/10/24 14:44 Temperature 36.8 C Temperature Source Temporal Artery Scan Pulse Rate 78 Pulse Rate [Apical] 73 Respiratory Rate 20 18 Respiratory Effort / Characteristics Non-Labored Spontaneous Non-Labored Spontaneous Respiratory Depth Normal Normal Respiratory Pattern Regular Blood Pressure 164/74 H Blood Pressure [Right Arm] 172/90 H Blood Pressure Mean 104 Blood Pressure Mean [Right Arm] 117 Pulse Oximetry 94 100 Oxygen Delivery Method Room Air Room Air Sepsis Recent Fever Within 48 Hours No Sepsis New/Unexplained Change in Mental Status No Sepsis Action Taken by Nursing No Action Required Physical Exam GENERAL: oriented to person, place, and time. appears well-developed and well- nourished. HENT: Exam performed. - Head: Normocephalic and atraumatic. EYES: Conjunctivae and EOM are normal. Right eye exhibits no discharge. Left eye exhibits no discharge. No scleral icterus. NECK: Normal range of motion. Neck supple. No JVD present. CV: Normal rate, regular rhythm, normal heart sounds and intact distal pulses. There is no peripheral edema. Palpable radial pulses bue. PULM/CHEST: Expiratory wheezes. MUSC: Left upper extremity with AV fistula with palpable thrill. Mild ecchymosis over the AV fistula. NEURO: Motor and sensation grossly intact. SKIN: Skin is warm and dry. He is not diaphoretic. PSYCH: normal mood and affect. Behavior is normal. Judgment and thought content normal. Course Course 1423: The patient was evaluated in room A11. A complete history and physical exam was performed Cardiac monitoring: An order was placed for continuous cardiac monitoring. The monitor shows a rate of 70 with sinus rhythm interpreted by me Patient was seen during a time of extreme volume and extreme acuity in the emergency department. Nursing triage protocols were initiated and labs were drawn by protocol in the triage area. Patient potassium 6.7. Calcium gluconate, albuterol 10 mg nebulized, 1 amp of D50 and 10 units of insulin and Lokelma ordered for the patient. 1434: Spoke with Felisa anthony from Dr. Santiago vascular surgery service and she states we can use the fistula as long as has a thrill. 1438: Spoke with Dr. Hyatt from nephrology who states to admit the patient and she will work on getting the patient dialyzed. 1515: Dialysis nurse stated that she was concerned about the fistula and requested imaging with Dr. Hyatt to make sure the fistula can work. Patient still has a good thrill. Ultrasound was ordered by the admitting team I spoke with senior controls technician and they will do the ultrasound to make sure it is patent. 1620: AV fistula is patent per radiology read. Administered Medications Citalopram Hydrobromide (Citalopram 20 Mg Tab) 10 mg PO HS TOSHIA Stop: 07/10/24 20:59 Last Admin: 06/10/24 20:33 Dose: 10 mg Documented By: FERMÍN Nicotine (Nicotine 14 Mg/24 Hr Patch) 1 patch TD QAM TOSHIA Stop: 07/10/24 18:44 Last Admin: 06/10/24 19:43 Dose: 1 patch Documented By: FERMÍN Sodium Zirconium Cyclosilicate (Sodium Zirconium Cyclosilicate 10 Gm Packet) 10 gm PO TID TOSHIA Stop: 06/12/24 14:01 Last Admin: 06/10/24 20:33 Dose: 10 gm Documented By: FERMÍN Torsemide (Torsemide 100 Mg Tab) 100 mg PO SuMoWeFr@0900 TOSHIA Stop: 07/10/24 16:59 Last Admin: 06/10/24 19:44 Dose: 100 mg Documented By: FERMÍN Discontinued Medications Albuterol (Albuterol 0.5% Neb Soln 2.5 Mg/0.5 Ml Vial) 10 mg NEB NOW STA Stop: 06/10/24 14:25 Last Admin: 06/10/24 14:40 Dose: 10 mg Documented By: AMRIK Dextrose (Dextrose 50% 50 Ml Syringe) 50 ml IV NOW STA Stop: 06/10/24 14:25 Last Admin: 06/10/24 14:51 Dose: 50 ml Documented By: TRACY Epoetin Nacho (Epoetin Nacho 20,000 Units/Ml Vial) 20,000 units IV TODAY@1559 TOSHIA Stop: 06/10/24 20:00 Last Admin: 06/10/24 18:39 Dose: 20,000 units Documented By: FELICIA Heparin Sodium (Porcine) (Heparin Sod (Porcine) 1000 Unit/Ml) 1,400 units IV ONE ONE Stop: 06/10/24 16:00 Last Admin: 06/10/24 18:03 Dose: Not Given Documented By: FELICIA Heparin Sodium (Porcine) (Heparin Sod (Porcine) 1000 Unit/Ml) 600 units IV Q1H TOSHIA Stop: 06/10/24 18:01 Last Admin: 06/10/24 18:03 Dose: Not Given Documented By: Admin: 06/10/24 18:03 Dose: Not Given Documented By: Admin: 06/10/24 18:03 Dose: Not Given Documented By: CC Calcium Gluconate () 1,000 mg in 60 mls @ 240 mls/hr IV NOW STA Stop: 06/10/24 14:38 Last Infusion: 06/10/24 14:57 Dose: Infused Documented By: Admin: 06/10/24 14:34 Dose: 240 mls/hr Documented By: AMRIK Insulin Human Regular 10 units (/ Syringe) 9.9 mls @ 3 mls/sec IV ONE STA Stop: 06/10/24 14:25 Last Admin: 06/10/24 14:54 Dose: 3 mls/sec Documented By: TRACY Co-signed By: AM Critical Care Time Critical Care Time: Yes Total Critical Care Time: 35 I have personally spent greater than 35 minutes of critical care time in the direct management of this patient. This includes bedside care, interpretation of diagnostic studies, and testing, discussion with consultants, patient, and family members, and other required patient management activities. This 35 minutes is in excess of all separately billable procedures. Medical Decision Making Laboratory Data Attestation: I reviewed the patient's lab results. 06/10/24 13:35 06/10/24 20:34 Lab Results 06/10/24 Range/Units 13:35 WBC 7.58 (4.8-10.8) K/ul RBC 2.83 L (4.70-6.10) M/uL Hgb 9.1 L (14.0-18.0) g/dl Hct 27.3 L (42.0-52.0) % MCV 96.5 (80.0-100.0) fL MCH 32.2 (25.0-34.0) pg MCHC 33.3 (32.0-36.0) g/dL RDW Std Deviation 48.2 H (36.4-46.3) fL RDW Coeff of Stacy 13.5 (11.5-14.5) % Plt Count 148 (130-400) K/uL MPV 10.3 (9.4-12.4) fL Immature Gran % (Auto) 0.4 % Neut % (Auto) 75.3 % Lymph % (Auto) 15.6 % [place] % (Auto) 6.7 % Eos % (Auto) 1.5 % Baso % (Auto) 0.5 % Neut # (Auto) 5.71 (1.40-6.50) K/uL Lymph # (Auto) 1.18 L (1.20-3.40) K/uL [place] # (Auto) 0.51 (0.11-0.59) K/uL Eos # (Auto) 0.11 (0.00-0.50) K/uL Baso # (Auto) 0.04 (0.00-0.20) K/uL Immature Gran # (Auto) 0.03 (0.01-0.20) K/uL Sodium 135 L (136-145) mmol/L Potassium 6.7 H* (3.5-5.1) mmol/L Chloride 97 L (98-107) mmol/L Carbon Dioxide 27 (21-32) mmol/L Anion Gap 11 (3-11) BUN 70 H (6-23) mg/dl Creatinine 10.04 H* (0.6-1.4) mg/dl Est Cr Clr Drug Dosing Not Reportable eGFR 4.75 BUN/Creatinine Ratio 7.0 L (10-20) Glucose 132 H (70-99(Fasting)) mg/dl Calcium 9.4 (8.6-10.3) mg/dl Total Bilirubin 0.5 (0.2-1.0) mg/dl AST 20 (13-39) U/L ALT 13 (7-52) U/L Alkaline Phosphatase 163 H (34-104) U/L Total Protein 7.1 (6.0-8.3) gm/dl Albumin 4.0 (3.4-5.0) gm/dl Globulin 3.1 (2.5-4.0) gm/dl Albumin/Globulin Ratio 1.3 (0.9-2) Imaging Data Attestation: I personally reviewed and interpreted this imaging study as follows: My Impression: Chest x-ray: Fluid overload Radiologist's Impression: Chest X-Ray 06/10/24 14:40 XR chest 1V portable CLINICAL HISTORY: sob COMPARISON STUDY: 03/14/2024 FINDINGS: Stable cardiomegaly with mild pulmonary vascular congestion. Stable emphysema. There is increased patchy opacity at the right lung base. There is stable blunting of the costophrenic angles. No pneumothorax. IMPRESSION: 1. Emphysema. 2. Mild CHF. 3. Increased patchy opacity at the right base likely represents pneumonia superimposed on the prior lung base scarring. ACT 112: Negative or not required by law. Electronically signed by: Trevin Ordaz M.D. 06/10/2024 3:16 PM ECG Data Attestation: I personally reviewed and interpreted this ECG as follows: Rate (beats per minute): 74 Rhythm: + normal sinus ECG Intervals/blocks: + Normal QRS, + Normal ND and + Normal QT-c ECG ST segments: + Normal ST segments ECG Findings: + Peaked T waves (V2 V3) MDM Narrative 1423: The patient was evaluated in room A11. A complete history and physical exam was performed Cardiac monitoring: An order was placed for continuous cardiac monitoring. The monitor shows a rate of 70 with sinus rhythm interpreted by me Patient was seen during a time of extreme volume and extreme acuity in the emergency department. Nursing triage protocols were initiated and labs were drawn by protocol in the triage area. Patient potassium 6.7. Calcium gluconate, albuterol 10 mg nebulized, 1 amp of D50 and 10 units of insulin and Lokelma ordered for the patient. 1434: Spoke with Felisa anthony from Dr. Santiago vascular surgery service and she states we can use the fistula as long as has a thrill. 1438: Spoke with Dr. Hyatt from nephrology who states to admit the patient and she will work on getting the patient dialyzed. 1515: Dialysis nurse stated that she was concerned about the fistula and requested imaging with Dr. Hyatt to make sure the fistula can work. Patient still has a good thrill. Ultrasound was ordered by the admitting team I spoke with senior controls technician and they will do the ultrasound to make sure it is patent. 1620: AV fistula is patent per radiology read. Impression & Plan Hyperkalemia Discharge Plan Visit Data Chief Complaint: Swelling/Edema to Extremity Stated Complaint: ARM SWELLING, ISSUES WITH DIALYSIS ED Provider: Ananda Jordan Discharge Problem: Hyperkalemia Patient Disposition: Admitted As Inpatient Discharge Instructions Interventions: ED Discharge Assessment Last Done: 06/10/24 15:45
[2024-06-11 01:09] LABS: BUN Creatinine Ratio 6.5 (10-20); Calcium 8.9 mg/dl (8.6-10.3); Creatinine Clr Calc Pharmacy 6.5 ml/min; Potassium 5.2 mmol/L (3.5-5.1)
--- OUTSIDE RECORDS SUMMARY | 2024-06-11 04:00 | External Medical Summary | Summary of Care ---
Author Name Unknown Organization [facility] Address [address] [facility] [place] [address] Phone [phone] Care Team Providers Care Manager Supply Chain Planning Name Role Phone Edgar Gibbs MD Primary Care P rovider Encounter Details Date Type Department Care Team (Late st Contact Info) Description 06/04/2024 Result Scan Unspecified Department <No scans attached> Allergies Active Allergy Reactions Criticality Noted Date Comments Latex 07/19/2019 Pantoprazole Sodium Edema face/lips/tongue High 04/0 02/2014 documented as of this encounter (statuses as of 06/10/2024) Medications Cholecalciferol 2000 units Capsule Take 1 [...] disease on dialysis ([facility]) Take 1 Tablet by mouth in the morning. 90 Tablet 3 4 Active Gill-Farzana Rx 1 MG Oral Tablet TAKE ONE TABLET BY MOUTH ONCE DAILY 90 Tablet 3 4 Active LORazepam 0.5 MG Oral Tablet (Ativan)Indication s:Panic attack as reaction to stress Take 1 Tablet by mouth every 8 hours as needed for Anxiety. 30 Tablet 5 Active Normal Saline Flush 0.9 % Intravenous SolutionIndication s:Nephrostomy status ([facility]) Flush 1 mL catheter daily as needed for Other (flush nephrostomy). 100 mL 3 5 Active Fluticasone-Umecli din-Vilant 100-62.5-25 MCG/ACT Aerosol Powder Breath Activated (Trelegy Ellipta)Indication s:COPD, group C, by GOLD 2017 classification ([facility]) Inhale 1 Puff by mouth in the morning. 60 Blister Dosing Unit 11 5 Active Ventolin HFA 108 (90 Base) MCG/ACT Inhalation Aerosol SolutionIndication s:COPD exacerbation ([facility]) Inhale 2 Puffs by mouth every 6 hours as needed for Cough, Shortness of Breath or Wheezing. 18 g 5 5 Active Torsemide 100 MG Oral Tablet (Demadex) Take 1 Tablet by mouth in the morning. 30 Tablet 5 5 Active documented as of this encounter (statuses as of 06/10/2024) Active Problems Problem Noted Date Diagnosed Date [...] as of this encounter (statuses as of 06/10/2024) Resolved Problems Problem Noted Date Diagnosed Date [...] as of this encounter (statuses as of 06/10/2024) Immunizations Name Administration Dates Next Due COVID-19 mRNA, LNP-s, No Pre serve, 2-Dose Series (Pfizer) 01/19/2021,06/10/2020,05/20/2020 Hep B Vac., Dialysis, 4 Dose , IM, 2mL (Engerix B) 12/20/2018,07/21/2018,06/19/2018 PPD 05/03/2018 Pneumococcal Conjugate Vacci ne, 20-valent ([id number]) 03/16/2022 Pneumococcal Polysaccharide PPV23 (Pneumovax) 12/28/2017 Seasonal [...] Description 07/29/2024 10:00 AM EDT Office Visit [facility] [address] [place] [address] Beatriz Hair PA-C [address] [place] [address] 08/14/2024 11:00 AM EDT Appointment Interventional [place]iology [facility] [place] [address]st [facility] [address] [facility] [address] 09/04/2024 10:00 AM EDT Office Visit Cardiology, [facility] [address] [place] [phone] Nata West CRNP [address] [place] [id number] 11/20/2024 9:45 AM EDT Office Visit Urology, [facility] [address] [place] [phone] Travon Canales MD [address] [place] [address] Health Maintenance Due Date Last Done Comments [...] Date/Time Associated Diagnosis Comments OUTSIDE LAB RESULTS 06/04/2024 documented in this encounter Results * OUTSIDE LAB RESULTS (06/04/2024) 06/04/2024 us No Physician Data Unknown LABORATORY Final Result documented in this encounter Advance Directives * Full Code (Latest Code Status on File) Date Activated Date Inactivated Comments 04/15/2015 4:40 PM 04/16/2015 5:24 PM This order r eflects the patients wishes and were consensually agreed upon. Care Teams Manager Supply Chain Planning Relationship Specialty Start Date End Date Edgar Gibbs MD [address] [place] [id number] PCP - General Family Medicine 07/03/20 documented as of this encounter
[2024-06-11] MEDS: LORazepam 0.5 MG TAB PO STA (06:55)
[2024-06-11] MEDS ORDERED: SODIUM CHLORIDE 0.9% 1,000 ML IV PRN (07:00)
[2024-06-11] MEDS: amLODIPine BESYLATE 5 MG TAB PO SCH (08:20)
[2024-06-11] MEDS: NEPHROCAPS PO SCH (08:20)
[2024-06-11] MEDS: FLUTICASONE FUROATE 200MCG 14 PUFFS/INHALER INH SCH (08:20)
[2024-06-11 08:24] LABS: Basophils # (auto) 0.03 K/uL (0.00-0.20); Basophils % (auto) 0.3 %; Eosinophils # (auto) 0.08 K/uL (0.00-0.50); Eosinophils % (auto) 0.8 %; Hematocrit (blood only) 27.8 % (42.0-52.0); Hemoglobin 9.1 g/dl (14.0-18.0); Immature Granulocytes # (auto) 0.03 K/uL (0.01-0.20); Immature Granulocytes % (auto) 0.3 %; Lymphocytes # (auto) 1.13 K/uL (1.20-3.40); Lymphocytes % (auto) 11.7 %; Mean Corpuscular Hemoglobin 31.8 pg (25.0-34.0); Mean Corpuscular Hgb Conc 32.7 g/dL (32.0-36.0); Mean Corpuscular Volume 97.2 fL (80.0-100.0); Mean Platelet Volume 10.5 fL (9.4-12.4); Monocytes # (auto) 0.62 K/uL (0.11-0.59); Monocytes % (auto) 6.4 %; Neutrophils # (auto) 7.79 K/uL (1.40-6.50); Neutrophils % (auto) 80.5 %; Platelet Count 155 K/uL (130-400); RDW Coefficient of Variation 13.6 % (11.5-14.5); RDW Standard Deviation 48.7 fL (36.4-46.3); Red Blood Count 2.86 M/uL (4.70-6.10); White Blood Count 9.68 K/ul (4.8-10.8)
[2024-06-11] MEDS: UMECLIDINIUM/VILANTEROL 62.5/25MCG 7 PUFFS/INHALER INH SCH (08:25)
[2024-06-11 09:04] LABS: Albumin Globulin Ratio 1.3 (0.9-2); Albumin Level 3.9 gm/dl (3.4-5.0); BUN Creatinine Ratio 6.5 (10-20); Bilirubin,Total 0.5 mg/dl (0.2-1.0); Calcium 9.3 mg/dl (8.6-10.3); Creatinine Clr Calc Pharmacy 6.3 ml/min; Globulin 3.1 gm/dl (2.5-4.0); Potassium 5.5 mmol/L (3.5-5.1)
[2024-06-11] MEDS: HEPARIN SOD (PORCINE) 1000 UNIT/ML IV ONE (11:06)
[2024-06-11] MEDS: HEPARIN SOD (PORCINE) 1000 UNIT/ML IV SCH (11:06)
--- NOTE | 2024-06-11 11:52 | Electrocardiogram Report ---
Test Reason : Blood Pressure : */* mmHG Vent. Rate : 74 BPM Atrial Rate : 74 BPM P-R Int : 184 ms QRS Dur : 86 ms QT Int : 416 ms P-R-T Axes : 52 -31 113 degrees QTcB Int : 461 ms Normal sinus rhythm Left axis deviation Prolonged QT Abnormal ECG When compared with ECG of 14-Mar-2024 06:42, T wave inversion more evident in Lateral leads Confirmed by Kael Alfaro ([id number]) on 06/11/2024 11:51:44 AM Referred By: REFERRED SELF Confirmed By: Kael Alfaro
--- NOTE | 2024-06-11 12:32 | Dialysis Progress Note ---
Date of Service June 11, 2024 Assessment & Plan (1) Dialysis AV fistula malfunction: Plan: still quite enlarged but + t/b; vascular duplex shows patent access; vascular surg ok's to use but they will eval arm to help determine best next steps/f/u -neph nurse was able successfully to cannulate but still some issues with line pressures and location of needle stick > vasc to check; doubt urgent procedure needed but likely close in f/u OP needed - vasc will help determien how close in -plan routine treatment in AM Care coordinated w/ Dr Lopez, vascular PA, gore stitcher in person and by phone re plans to evaluate vascular access; we are in agreement. (2) Hyperkalemia, diminished renal excretion: Plan: had insulin, albuterol, lokelma >>running on 2 K bath, large dialyzer last evenign adn K still 5.5 this AM >> expect improvement w/ dialysis; pt states this is crhonic for him (3) End stage renal disease: Plan: -he is not anuric but put him on fluid limit for now 1.5 L -cont renal diet -gave 20 K epo 06/10 since blood not able to be returned on 06/08; (4) Nephrostomy status: Plan: reported as nephroureteral catheter; draining ok/no issues urology saw him last admission in February and recommended if desired an overnight bag to drain the urine continuously versus emptying the tube every couple hours and as needed urology also recommended routine nephroureteral catheter around 04/2024 Admission and Anticipated Discharge Date Admission Date: June 10, 2024 Subjective seen on HD. had panic spell this am w/ sob, HTN. better now. nephrostomy OP ok; HD tx uneventful; able to cannulate arm now x [address] sonly on large avf/infiltrated area Review of Systems 2 Review of Systems: All systems reviewed & are unremarkable except as noted in Subjective Physical Exam 2 Constitutional: well developed, well nourished, average body habitus and cooperative; no acute distress and not ill appearing Eyes: EOM intact bilaterally ENMT: Mouth: + dry oral mucous membranes Respiratory: normal respiratory effort Auscultation: + diminished lung sounds Cardiovascular: RRR, no murmur, no edema Extremities: + AV fistula (enlarged w/ + t/b; no shiny or very thin skin) Gastrointestinal (Abdomen): Inspection/Auscultation: normal bowel sounds P ercussion/Palpation: abdomen soft; abdomen nontender Musculoskeletal: Extremities: strength 5/5 throughout Skin: no rashes, warm and dry Results & Data Vital Signs (Past 12 Hours) Vital Signs Temp Pulse Pulse Pulse Resp BP BP 06/11/24 12:05 06/11/24 12:00 77 143/80 H 06/11/24 11:30 77 151/86 H 06/11/24 11:00 77 161/88 H 06/11/24 10:42 36.4 C L 69 17 99/70 L 06/11/24 10:30 78 157/90 H 06/11/24 10:00 81 163/89 H 06/11/24 09:40 36.5 C 83 06/11/24 07:06 36.5 C 94 H 18 199/99 H 06/11/24 02:54 36.8 C 82 18 145/74 H Pulse Ox O2 Del Method O2 Flow Rate 06/11/24 12:05 Room Air 06/11/24 12:00 06/11/24 11:30 06/11/24 11:00 06/11/24 10:42 96 Room Air 06/11/24 10:30 06/11/24 10:00 06/11/24 09:40 06/11/24 07:06 93 Nasal Cannula 2 06/11/24 02:54 97 Nasal Cannula 2 Laboratory Results 06/11/24 07:33 06/11/24 07:33
--- NOTE | 2024-06-11 13:37 | Communication Note ---
Date of Service: June 11, [address] Santiago for LUE AVF creation, asked by nephrology to eval pt LUE AVF. Per HD RN, flow/pressures ok for complete HD treatment. Cannulation somewhat difficult in location of moderate hematoma mid AVF, but able to access in other locations. LUE AVF with + thrill, large calibur AVF. 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 Will reeval in office in a few weeks to determine whether intervention needed on the venous aneurysm.
--- NOTE | 2024-06-11 14:07 | Hospitalist Progress Note ---
Date of Service June 11, 2024 Assessment & Plan (1) Acute hyperkalemia: (2) Dialysis patient: Plan Assessment/plan Hyperkalemia secondary to missed dialysis session Patient presents to the ED after missing dialysis on Monday and today; due to concern for infiltrated fistula. Potassium of 6.7 on admission Creatinine of 10.04 ED provider discussed with vascular PA and nephrology; recommend admission and trial of dialysis through the fistula. Status post insulin/dextrose, calcium gluconate for hyperkalemia. Continue on Lokelma 10 mg 3 times daily; dialysis as per nephrology Appreciate nephrology input and recommendation Ultrasound of the hemodialysis port did not show any evidence of blockage His potassium level was improving with above measures and he underwent hemodialysis this morning He has been feeling much better and denies any symptoms Likely discharge tomorrow Possible infiltration/blockage of left upper extremity fistula Has been ruled out by ultrasound The site was evaluated by vascular surgery team and was advised that he will be contacted by the office within next 2 to 3 weeks In the meantime continue using the site for dialysis Chronic conditions: COPD-continue home inhalers. No acute symptoms Anemia in setting of ESRD;Hb at baseline Hemoglobin stable at 9.1 Hypertensioncontinue on home amlodipine Blood pressure is reasonably controlled at 152/81 Aortic stenosis; echo from January 2024 shows EF of 55%; moderate aortic stenosis. Denies any cardiac symptoms Prostate cancerhistory of prostate cancer, patient on leuprolide injections; follows up with urology DVT prophylaxis on hold Will start subcu heparin Full code Admission and Anticipated Discharge Date Admission Date: June 10, 2024 Subjective 06/11/2024 The patient was seen and examined in telemetry unit He is status post hemodialysis and has been feeling better Has had likely dizzy spell while he was sitting at the side of the bed early this morning Denies any significant symptoms Review of Systems Review of Systems: All systems reviewed and are unremarkable except as noted below Physical Exam Physical Exam: Lying in bed without any acute distress Constitutional: average body habitus; not ill appearing Eyes: PERRL, conjunctivae normal, anicteric sclerae ENMT: external ear and nose normal, oropharynx normal Neck: trachea midline, no thyromegaly Respiratory: no respiratory distress Auscultation: lungs clear to auscultation bilaterally Cardiovascular: Rate/Rhythm: regular rate and regular rhythm; not tachycardic Heart Sounds: normal S1 and normal S2; no murmur Extremities: no edema Gastrointestinal (Abdomen): Inspection/Auscultation: normal bowel sounds; abdomen not distended Percussion/Palpation: abdomen soft; abdomen nontender Musculoskeletal: No acute arthritis involving any of the joint Neurologic: normal touch/pain/proprioception and moves all extremities; no focal motor deficits Psychiatric: A+Ox3, euthymic affect Lymphatic: no cervical or axillary lymphadenopathy Results & Data Results & Data Vital Signs (Past 12 Hours) Vital Signs Temp Pulse Pulse Pulse Resp BP BP 06/11/24 13:00 77 152/81 H 06/11/24 12:30 75 151/83 H 06/11/24 12:05 06/11/24 12:00 77 143/80 H 06/11/24 11:30 77 151/86 H 06/11/24 11:00 77 161/88 H 06/11/24 10:42 36.4 C L 69 17 99/70 L 06/11/24 10:30 78 157/90 H 06/11/24 10:00 81 163/89 H 06/11/24 09:40 36.5 C 83 06/11/24 07:06 36.5 C 94 H 18 199/99 H 06/11/24 02:54 36.8 C 82 18 145/74 H Pulse Ox O2 Del Method O2 Flow Rate 06/11/24 13:00 06/11/24 12:30 06/11/24 12:05 Room Air 06/11/24 12:00 06/11/24 11:30 06/11/24 11:00 06/11/24 10:42 96 Room Air 06/11/24 10:30 06/11/24 10:00 06/11/24 09:40 06/11/24 07:06 93 Nasal Cannula 2 06/11/24 02:54 97 Nasal Cannula 2 Laboratory Results Short CBC 06/11/24 Range/Units 07:33 WBC 9.68 (4.8-10.8) K/ul Hgb 9.1 L (14.0-18.0) g/dl Hct 27.8 L (42.0-52.0) % Plt Count 155 (130-400) K/uL BMP 06/10/24 06/10/24 06/11/24 13:35 20:34 00:17 Sodium 135 L 135 L 136 Potassium 6.7 H* 5.0 D 5.2 H Chloride 97 L 99 100 Carbon Dioxide 27 28 27 BUN 70 H 44 H D 49 H Creatinine 10.04 H* 6.90 H* D 7.49 H* D Glucose 132 H 196 H 150 H Calcium 9.4 8.7 8.9 06/11/24 07:33 Sodium 136 Potassium 5.5 H Chloride 100 Carbon Dioxide 27 BUN 50 H Creatinine 7.67 H* Glucose 111 H Calcium 9.3 Liver Function 06/10/24 06/11/24 Range/Units 13:35 07:33 Total Bilirubin 0.5 0.5 (0.2-1.0) mg/dl AST 20 22 (13-39) U/L ALT 13 13 (7-52) U/L Alkaline Phosphatase 163 H 155 H (34-104) U/L Albumin 4.0 3.9 (3.4-5.0) gm/dl Medications Administered Current Inpatient Medications Acetaminophen (Acetaminophen 325 Mg Tab) 650 mg PO Q4H PRN PRN Reason: Pain or Fever Stop: 07/10/24 15:03 Albuterol (Albuterol Hfa 8 Gm Inhaler) 2 puffs INH Q4H PRN PRN Reason: Shortness Of Breath Or Wheezing Stop: 07/10/24 16:27 Amlodipine Besylate (Amlodipine Besylate 5 Mg Tab) 5 mg PO DAILY [facility] Stop: 07/11/24 08:59 Last Admin: 06/11/24 08:20 Dose: 5 mg Citalopram Hydrobromide (Citalopram 20 Mg Tab) 10 mg PO [facility] Stop: 07/10/24 20:59 Last Admin: 06/10/24 20:33 Dose: 10 mg Fluticasone Furoate (Fluticasone Furoate 200mcg 14 Puffs/Inhaler) 1 puffs INH DAILY [facility]; Protocol Stop: 07/11/24 08:59 Last Admin: 06/11/24 08:20 Dose: 1 puffs Sodium Chloride (Nss) 1,000 mls @ 0 mls/hr IV .Q0M PRN PRN Reason: For Hemodialysis Use ONLY Stop: 06/17/24 06:59 Miscellaneous (Remove Nicoderm Patch) 1 each N/A DAILY@0859 [facility] Stop: 07/11/24 08:58 Last Admin: 06/11/24 08:20 Dose: 1 each Nicotine (Nicotine 14 Mg/24 Hr Patch) 1 patch TD QAM [facility] Stop: 07/10/24 18:44 Last Admin: 06/11/24 08:20 Dose: 1 patch Polyethylene Glycol (Polyethylene (Miralax) 17 Gm Pack) 17 gm PO DAILY PRN PRN Reason: Constipation Stop: 07/10/24 15:03 Sodium Zirconium Cyclosilicate (Sodium Zirconium Cyclosilicate 10 Gm Packet) 10 gm PO TID [facility] Stop: 06/12/24 14:01 Last Admin: 06/11/24 08:25 Dose: 10 gm Torsemide (Torsemide 100 Mg Tab) 100 mg PO SuMoWeFr@0900 [facility] Stop: 07/10/24 16:59 Last Admin: 06/10/24 19:44 Dose: 100 mg Umeclidinium/Vilanterol (Umeclidinium/Vilanterol 62.5/25mcg 7 Puffs/Inhaler) 1 puffs INH DAILY [facility]; Protocol Stop: 07/11/24 08:59 Last Admin: 06/11/24 08:25 Dose: 1 puffs Vitamin B Complex/Folic Acid (Nephrocaps) 1 cap PO DAILY [facility] Stop: 07/11/24 08:59 Last Admin: 06/11/24 08:20 Dose: 1 cap
[2024-06-11] MEDS: HEPARIN SOD 5,000 UNIT/0.5 ML VIAL SQ SCH (20:12)
[2024-06-12 03:37] VITALS: TEMP 98.4; O2SAT 98
[2024-06-12 07:08] VITALS: RESP 18
[2024-06-12 07:58] LABS: Basophils # (auto) 0.04 K/uL (0.00-0.20); Basophils % (auto) 0.6 %; Eosinophils # (auto) 0.14 K/uL (0.00-0.50); Eosinophils % (auto) 2.2 %; Hemoglobin 8.5 g/dl (14.0-18.0); Immature Granulocytes # (auto) 0.02 K/uL (0.01-0.20); Immature Granulocytes % (auto) 0.3 %; Lymphocytes # (auto) 1.12 K/uL (1.20-3.40); Lymphocytes % (auto) 17.9 %; Mean Corpuscular Hemoglobin 31.4 pg (25.0-34.0); Mean Corpuscular Hgb Conc 32.7 g/dL (32.0-36.0); Mean Corpuscular Volume 95.9 fL (80.0-100.0); Mean Platelet Volume 10.2 fL (9.4-12.4); Monocytes % (auto) 9.6 %; Neutrophils # (auto) 4.33 K/uL (1.40-6.50); Neutrophils % (auto) 69.4 %; Platelet Count 143 K/uL (130-400); RDW Coefficient of Variation 13.3 % (11.5-14.5); RDW Standard Deviation 47.3 fL (36.4-46.3); Red Blood Count 2.71 M/uL (4.70-6.10); White Blood Count 6.25 K/ul (4.8-10.8)
[2024-06-12 08:32] LABS: Calcium 9.2 mg/dl (8.6-10.3); Potassium 4.4 mmol/L (3.5-5.1)
[2024-06-12 08:44] LABS: BUN Creatinine Ratio 4.6 (10-20); Creatinine Clr Calc Pharmacy 9.6 ml/min
--- NOTE | 2024-06-12 09:19 | Nephrology Progress Note ---
Date of Service June 12, 2024 Assessment & Plan (1) Dialysis AV fistula malfunction: Plan: still quite enlarged/moderate hematoma but + t/b; vascular duplex shows patent access; appreciate vascular surg eval >> lemon sized venous aneurysm/surrounding ecchymosis noted; recommend reeval in office in a few weeks to determine next steps -neph nurse was able successfully to cannulate but still some issues with line pressures and location of needle stick > will ask neph nurse to update OP unit on best location for needles >>Care coordinated w/ Dr Reyes re d/c plan and f/u of dialysis access (2) Hyperkalemia, diminished renal excretion: Plan: k 4.4 today on admissoin had insulin, albuterol, lokelma -cont routine HD; no intervention or tx today (3) End stage renal disease: Plan: -he is not anuric but put him on fluid limit for now 1.5 L -cont renal diet -gave 20 K epo 06/10 since blood not able to be returned on 06/08; hgb 8.5 today, some drop but doubt clinically significant (4) Nephrostomy status: Plan: reported as nephroureteral catheter; draining ok/no issues urology saw him last admission in February and recommended if desired an overnight bag to drain the urine continuously versus emptying the tube every couple hours and as needed urology also recommended routine nephroureteral catheter around 04/2024 Admission and Anticipated Discharge Date Admission Date: June 10, 2024 Subjective delayed note for eval on AM rounds 0830; no c/o; no further anxiety spells, no sob, nephrostomy drains ok Review of Systems 2 Review of Systems: All systems reviewed & are unremarkable except as noted in Subjective Physical Exam 2 Constitutional: well developed, well nourished, average body habitus and cooperative; no acute distress and not ill appearing Eyes: EOM intact bilaterally ENMT: Mouth: + dry oral mucous membranes Respiratory: normal respiratory effort Auscultation: + diminished lung sounds Cardiovascular: RRR, no murmur, no edema Extremities: + AV fistula (enlarged w/ + t/b; no shiny or very thin skin) Gastrointestinal (Abdomen): Inspection/Auscultation: normal bowel sounds P ercussion/Palpation: abdomen soft; abdomen nontender Musculoskeletal: Extremities: strength 5/5 throughout Skin: no rashes, warm and dry Results & Data Vital Signs (Past 12 Hours) Vital Signs Temp Pulse Pulse Resp BP Pulse Ox O2 Del Method 06/12/24 07:07 36.9 C 69 18 161/78 H 98 Nasal Cannula 06/12/24 03:36 36.9 C 75 19 159/73 H 98 Nasal Cannula 06/12/24 00:00 79 06/11/24 23:27 37.0 C 83 20 145/73 H 94 Nasal Cannula O2 Flow Rate 06/12/24 07:07 2 06/12/24 03:36 2 06/12/24 00:00 06/11/24 23:27 2 Laboratory Results 06/12/24 07:35 06/12/24 07:35
[2024-06-12 10:37] VITALS: BP 160/77
--- NOTE | 2024-06-12 10:47 | Hospitalist Progress Note ---
Date of Service June 12, 2024 Assessment & Plan (1) Acute hyperkalemia: (2) Dialysis patient: Plan Acute Hyperkalemia Secondary to missed dialysis session due to concern for infiltrated fistula. Concern for AV fistula Malfunction --Doppler: Patent left upper extremity fistula. Follow-up as clinically relevant. Presented with potassium 6.7 Received insulin/dextrose, calcium gluconate Also received Lokelma 10 mg 3 times daily Hyperkalemia resolved with above management including dialysis Appreciate nephrology input Evaluated by vascular surgery as well. Advised to follow-up with vascular surgery as outpatient Patient had dialysis using AV fistula with no issues while hospitalized Plan to be discharged home today Possible infiltration/blockage of left upper extremity fistula Has been ruled out by ultrasound Needs follow-up with vascular surgery as outpatient Chronic conditions: COPD-continue home inhalers. No acute symptoms Anemia in setting of ESRD;Hb at baseline Hemoglobin stable at 9.1 Hypertension Continue amlodipine Also on torsemide Aortic stenosis; echo from January 2024 shows EF of 55%; moderate aortic stenosis. Denies any cardiac symptoms Follow-up as outpatient Prostate cancer patient on leuprolide injections; follows up with urology DVT Px: Heparin SQ Code Status Full code Admission and Anticipated Discharge Date Admission Date: June 10, 2024 Subjective Patient is seen and examined at bedside Offers no new complaints today Discussed with nephrology today Eager to get discharged Review of Systems Review of Systems: All systems reviewed & are unremarkable except as noted in Subjective Physical Exam Physical Exam: Physical Exam: Vitals signs as noted above General Appearance:Moderately built and nourished, no apparent distress Head: normocephalic, Atraumatic Eyes: normal inspection, EOMI Neck: supple, Trachea midline Respiratory/Chest: Normal breath sounds, CTA, No accessory muscle use Cardiovascular: S1, S2, +murmur Abdomen/GI:Soft, Non tender, Bowel sounds present Extremities/Musculoskeletal:normal inspection, no edema, LUE AV fistula Neurologic/Psych:AAOX3, grossly no focal neurological deficits Skin: normal color, warm Results & Data Results & Data Vital Signs (Past 12 Hours) Vital Signs Temp Pulse Pulse Resp BP Pulse Ox O2 Del Method 06/12/24 10:35 36.9 C 73 18 160/77 H 98 Nasal Cannula 06/12/24 07:07 36.9 C 69 18 161/78 H 98 Nasal Cannula 06/12/24 03:36 36.9 C 75 19 159/73 H 98 Nasal Cannula 06/12/24 00:00 79 06/11/24 23:27 37.0 C 83 20 145/73 H 94 Nasal Cannula O2 Flow Rate 06/12/24 10:35 2 06/12/24 07:07 2 06/12/24 03:36 2 06/12/24 00:00 06/11/24 23:27 2 Laboratory Results Short CBC 06/12/24 Range/Units 07:35 WBC 6.25 (4.8-10.8) K/ul Hgb 8.5 L (14.0-18.0) g/dl Hct 26.0 L (42.0-52.0) % Plt Count 143 (130-400) K/uL BMP 06/12/24 07:35 Sodium 137 Potassium 4.4 Chloride 99 Carbon Dioxide 31 BUN 23 D Creatinine 4.98 H* D Glucose 89 Calcium 9.2
[2024-06-12 12:37] VITALS: PULSE 82
--- NOTE | 2024-06-12 13:33 | Discharge Summary ---
Date of Service June 12, 2024 Admission HPI Per Admitting Provider History obtained from chart review, interview with the patient and discussion with the ED provider Past medical history of ESRD on hemodialysis, COPD,, history of prostate cancer, hypertension, anemia of chronic disease. Last admission in February 2024 after missed dialysis session; Patient had to go on dialysis as per his normal schedule on Monday; his fistula was reportedly infiltrated; they are unable to do the treatment and was sent home. He returned back to the dialysis center again today; was told that patient did not feel comfortable during the treatment there and was sent to the ED. Patient denies any pain and discomfort on exam. Denies increased swelling. On presentation to the ED he was found to have potassium of 6.7; creatinine of 10 and BUN of 70. Patient was found to have intact bruit; ED provider discussed with vascular PA and nephrology; plan to admit to the hospital and try dialysis. Admission Exam Per Admitting Provider Constitutional: WD/WN, vitals as above, NAD, sitting up in bed, pleasant, conversing easily Respiratory: normal respiratory effort, lungs clear to auscultation, no wheeze, rales, rhonchi. Normal insp/exp effort, no accessory muscle use Cardiovascular: RRR, no murmur, no edema Vessels: no JVD or carotid bruit Chest: normal inspection of chest Abdomen: normal bowel sounds, soft, nontender, no hepatosplenomegaly Musculoskeletal: Slight ecchymosis present on the left arm over the fistula; bruit present with a strong thrill. Neurologic: PERRL, EOMI, accommodation nl, no face palsy, no dysarthria CN's II- XI intact bilaterally and moves all extremities Psychiatric: A+Ox3, euthymic affect Principal Diagnosis Hyperkalemia End-stage renal disease Suspected AV fistula malfunction Discharge Data Allergies Allergy/AdvReac Type Severity Reaction Status Date / Time pantoprazole Allergy Severe EDEMA Verified 07/03/23 23:53 FACE/LIPS/TONGUE latex Allergy Unknown ON Verified 07/04/23 00:00 [employer] LIST Consultations 06/10/24 14:42 Consult Nephrology Stat ED Decision to Admit Stat Procedures Performed Laboratory Results WBC 6.25 K/ul (4.8-10.8) 06/12/24 07:35 RBC 2.71 M/uL (4.70-6.10) L 06/12/24 07:35 Hgb 8.5 g/dl (14.0-18.0) L 06/12/24 07:35 Hct 26.0 % (42.0-52.0) L 06/12/24 07:35 MCV 95.9 fL (80.0-100.0) 06/12/24 07:35 MCH 31.4 pg (25.0-34.0) 06/12/24 07:35 MCHC 32.7 g/dL (32.0-36.0) 06/12/24 07:35 RDW Std Deviation 47.3 fL (36.4-46.3) H 06/12/24 07:35 RDW Coeff of Stacy 13.3 % (11.5-14.5) 06/12/24 07:35 Plt Count 143 K/uL (130-400) 06/12/24 07:35 MPV 10.2 fL (9.4-12.4) 06/12/24 07:35 Immature Gran % (Auto) 0.3 % 06/12/24 07:35 Neut % (Auto) 69.4 % 06/12/24 07:35 Lymph % (Auto) 17.9 % 06/12/24 07:35 [place] % (Auto) 9.6 % 06/12/24 07:35 Eos % (Auto) 2.2 % 06/12/24 07:35 Baso % (Auto) 0.6 % 06/12/24 07:35 Neut # (Auto) 4.33 K/uL (1.40-6.50) 06/12/24 07:35 Lymph # (Auto) 1.12 K/uL (1.20-3.40) L 06/12/24 07:35 [place] # (Auto) 0.60 K/uL (0.11-0.59) H 06/12/24 07:35 Eos # (Auto) 0.14 K/uL (0.00-0.50) 06/12/24 07:35 Baso # (Auto) 0.04 K/uL (0.00-0.20) 06/12/24 07:35 Immature Gran # (Auto) 0.02 K/uL (0.01-0.20) 06/12/24 07:35 Sodium 137 mmol/L (136-145) 06/12/24 07:35 Potassium 4.4 mmol/L (3.5-5.1) 06/12/24 07:35 Chloride 99 mmol/L (98-107) 06/12/24 07:35 Carbon Dioxide 31 mmol/L (21-32) 06/12/24 07:35 Anion Gap 7 (3-11) 06/12/24 07:35 BUN 23 mg/dl (6-23) D 06/12/24 07:35 Creatinine 4.98 mg/dl (0.6-1.4) H* D 06/12/24 07:35 Est Cr Clr Drug Dosing 9.6 ml/min 06/12/24 07:35 eGFR 11.01 06/12/24 07:35 BUN/Creatinine Ratio 4.6 (10-20) L 06/12/24 07:35 Glucose 89 mg/dl (70-99(Fasting)) 06/12/24 07:35 Calcium 9.2 mg/dl (8.6-10.3) 06/12/24 07:35 Total Bilirubin 0.5 mg/dl (0.2-1.0) 06/11/24 07:33 AST 22 U/L (13-39) 06/11/24 07:33 ALT 13 U/L (7-52) 06/11/24 07:33 Alkaline Phosphatase 155 U/L (34-104) H 06/11/24 07:33 Total Protein 7.0 gm/dl (6.0-8.3) 06/11/24 07:33 Albumin 3.9 gm/dl (3.4-5.0) 06/11/24 07:33 Globulin 3.1 gm/dl (2.5-4.0) 06/11/24 07:33 Albumin/Globulin Ratio 1.3 (0.9-2) 06/11/24 07:33 Nasal Screen MRSA (PCR) Negative (Negative) 06/10/24 Unknown Impressions Chest X-Ray 06/10/24 14:40 XR chest 1V portable CLINICAL HISTORY: sob COMPARISON STUDY: 03/14/2024 FINDINGS: Stable cardiomegaly with mild pulmonary vascular congestion. Stable emphysema. There is increased patchy opacity at the right lung base. There is stable blunting of the costophrenic angles. No pneumothorax. IMPRESSION: 1. Emphysema. 2. Mild CHF. 3. Increased patchy opacity at the right base likely represents pneumonia superimposed on the prior lung base scarring. ACT 112: Negative or not required by law. Electronically signed by: Trevin Ordaz M.D. 06/10/2024 3:16 PM Hemodialysis Access Duplex US 06/10/24 15:15 INDICATION: Arm pain. TECHNIQUE: Sonographic oro scale, color Doppler and spectral analysis of left upper extremity dialysis fistula. COMPARISON: No relevant priors. FINDINGS: Left upper extremity dialysis fistula appears patent with proper directional flow. No focal elevated peak systolic velocity demonstrated to suggest significant stenosis. IMPRESSION: Patent left upper extremity fistula. Follow-up as clinically relevant. Electronically signed by Otto Xie 06-10-2024 4:18 PM Ordered Studies 06/10/24 15:15 hemodialysis fistula Stat Hospital Course (1) Acute hyperkalemia: (2) Dialysis patient: Plan Acute Hyperkalemia Secondary to missed dialysis session due to concern for infiltrated fistula. Concern for AV fistula Malfunction --Doppler: Patent left upper extremity fistula. Follow-up as clinically relevant. Presented with potassium 6.7 Received insulin/dextrose, calcium gluconate Also received Lokelma 10 mg 3 times daily Hyperkalemia resolved with above management including dialysis Appreciate nephrology input Evaluated by vascular surgery as well. Advised to follow-up with vascular surgery as outpatient Patient had dialysis using AV fistula with no issues while hospitalized Plan to be discharged home today Possible infiltration/blockage of left upper extremity fistula Has been ruled out by ultrasound Needs follow-up with vascular surgery as outpatient Chronic conditions: COPD-continue home inhalers. No acute symptoms Anemia in setting of ESRD;Hb at baseline Hemoglobin stable at 9.1 Hypertension Continue amlodipine Also on torsemide Aortic stenosis; echo from January 2024 shows EF of 55%; moderate aortic stenosis. Denies any cardiac symptoms Follow-up as outpatient Prostate cancer patient on leuprolide injections; follows up with urology DVT Px: Heparin SQ Code Status Full code Total Time Total Time Spent Total Time Spent (In Minutes): 47 minutes Discharge Plan Discharge Items Patient Disposition: Home - Self-Care Reason For Visit: HYPERKALEMIA Discharge Diagnosis: Hyperkalemia End-stage renal disease Suspected AV fistula malfunction Activity: Per Instructions section Exercise/Sports: Gradually increase as tolerated Non-emergency contact: Primary Care Provider, Surgeon and Manufacturing Plant Controller Call non-emergency contact if: you have any medication questions, your symptoms worsen, your pain is concerning for you and you have a fever Follow-up/Referrals: Edgar Gamble MD [Primary Care Provider] - (Date & Time 06/17/2024 10:00 AM Provider: Camila Herron MD [facility]) Diet: Dialysis Renal Addtl Attending Provider Instructions: Follow-up with your primary care physician Dr. Gamble on 06/17/2024 1 0:00 AM Follow-up with vascular surgery Dr. Santiago in 2 to 3 weeks for further evaluation of your AV fistula as advised Follow-up with your shoulder sawyer for dialysis as scheduled Seek immediate medical attention if your symptoms reoccur or worsen Please review medication list provided on discharge for any medication changes as instructed. Please call if you have any questions or problems. You can reach a [facility] hospitalist on duty at [facility] 24 hours a day by calling [phone] Pending Studies at Discharge: No Stand-Alone Forms: [facility], Smoking Cessation Medications and DC Order Prescriptions: Continued citalopram 10 mg tablet 10 mg PO HS amlodipine 5 mg tablet 5 mg PO DAILY lorazepam 0.5 mg tablet 0.5 mg PO TID PRN (Reason: Anxiety) torsemide 100 mg tablet 100 mg PO UD Rx Instructions: Take on non-dialysis days on sun, mon, wed, fri Nephro-Farzana 0.8 mg tablet 1 tab PO DAILY albuterol sulfate [Ventolin HFA] 90 mcg/actuation HFA aerosol inhaler 2 puff INHALATION Q4H PRN (Reason: Shortness Of Breath Or Wheezing) Breztri Aerosphere 160-9-4.8 mcg/actuation HFA aerosol inhaler 2 inh INHALATION BID Discharge Orders: Discharge Order (Routine); Ordered 06/12/24 Ordered By: Varun Reyes Admission Data Admit Date/Time: 06/10/24 15:04 Attending Provider: Varun Reyes Admit Provider: Artemio Moore Primary Care Provider: Edgar Gamble Other Providers: Emilee Souza; Artemio Moore Other Interventions: Discharge Summary Assessment (RN) Last Done: 06/12/24 12:36
== END 2024-06-12 12:36 | disposition home or self-care (01) | DRG 640 ==
LOC: ED 12:59 → 2S 15:04 → SUATTDRO 15:04 → 2S 15:45

== ENCOUNTER 2024-10-29 11:27 | Inpatient (IN) ==
--- NOTE | 2024-10-29 11:46 | Emergency Department Note ---
Impression & Plan Acute hypoxic respiratory failure, CHF (congestive heart failure), End stage renal disease on dialysis, COPD (chronic obstructive pulmonary disease) ED Provider Note NAME: BEE GOLDBERG AGE: 79 SEX: M : 1945 ARRIVES VIA: Walk-In INFORMANT: Patient ED PROVIDER(S): Seamus Lange DO CHIEF COMPLAINT: Shortness of breath HPI: Patient is an 79-year-old male on dialysis Monday, , Monday who has not missed any doses with a history of aortic stenosis who presents to the ER for shortness of breath which has been getting worse. Family notes that he has had a cough for the past several days. Denies any chest pain or belly pain. No nausea, vomiting, or diarrhea. No dysuria, urgency, or frequency. Denies any blood thinners. Shortness of breath has been getting worse consequently came into the ER today. Does have a history of COPD. ADDITIONAL HISTORY OBTAINED: Per HPI Chronic Medical/Social Conditions Affecting Care: Per HPI PAST MEDICAL HISTORY:See Below PAST SURGICAL HISTORY:See Below FAMILY HISTORY:See Below SOCIAL HISTORY:See Below HOME MEDICATIONS:See Below ALLERGIES:See Below VITALS:See Below PHYSICAL EXAMINATION: GENERAL: Sitting up in bed, alert, ill-appearing, mild distress EYE EXAM: normal conjunctiva. PERRL and EOM's grossly intact. OROPHARYNX: no exudate, no erythema, lips, buccal mucosa, and tongue normal and mucous membranes are moist NECK: supple, no nuchal rigidity, no adenopathy, non-tender LUNGS: Diffuse wheezing bilaterally. Normal chest wall mechanics HEART: no murmurs, S1 normal and S2 normal ABDOMEN: abdomen soft, non-tender, normo-active bowel sounds, no masses, no rebound or guarding. UPPER EXTREMITIES: upper extremities are grossly normal. LOWER EXTREMITIES: No pitting edema. NEURO EXAM: Normal sensorium, cranial nerves II-XII grossly intact, normal speech, no gross weakness of arms, no gross weakness of legs. MEDICAL DECISION MAKING: Patient is an 79-year-old male who presents to the ER for shortness of breath. IV was established and blood work was obtained. Upon arrival was found to be hypoxic at 50%. Labs show no significant leukocytosis or anemia. VBG with a pH is 7.21. CO2 at 69. Patient was placed on nonrebreather and flipped to BiPAP and oxygen renetta into the 90s. Potassium of 5.5. Creatinine at 9. Lactate at 6. LFTs and bilirubin were unremarkable. Troponin at 270. Pro-Robel 0.78. Viral panel was negative. EKG with worsening ST depressions. Patient respiratory rate improved significantly following being placed on BiPAP. Discussed with nephrology and the hospitalist patient will receive dialysis and be admitted for further workup. He was covered prophylactically with IV cefepime. Consults/Care Managements Discussions: Per [facility] Triage Nursing notes reviewed. Limited review of prior medical records performed Vital Signs: reviewed and remarkable for hypoxic Differential diagnosis: Differential diagnoses includes but is not limited to pneumonia, bronchitis, COPD/Asthma exacerbation, pneumothorax, pulmonary embolism, congestive heart failure, acute coronary syndrome ER treatment provided: See below Diagnostics interpreted by me include EKG and cardiac monitoring as listed below: -Cardiac Monitoring: An order was placed for continuous cardiac monitoring. The monitor shows a rate of 100 with sinus rhythm. -ECG: Sinus tachycardia rate of [address] depressions in V4 through V6 T wave versions in the high lateral leads QTc 536 ST wave changes in the high lateral and lateral leads are slightly worse -Laboratory studies:Interpreted by me as stated above in MDM and shown below. Imaging studies: Xrays: As interpreted by me: Portable AP upright 1 view the chest shows bilateral patchy infiltrates CTs show: none Procedures:none Critical Care: I have personally spent 33 minutes of critical care time in the direct management of this patient. This includes bedside care, interpretation of diagnostic studies, and testing, discussion with consultants, patient, and family members, and other required patient management activities. This 33 minutes is in excess of all separately billable procedures. Past Med/Surg History Problem List (Updated 10/29/24 @ 14:40 by Violet Mckenzie PA-C) Lactic acidosis ESRD on hemodialysis Acute respiratory failure with hypoxia and hypercapnia History of insertion of nephrostomy tube Severe aortic stenosis Acute on chronic heart failure with mildly reduced ejection fraction (HFmrEF, 41-49%) Dialysis AV fistula malfunction Elevated troponin (Acute) Dialysis patient (Acute) Hypoxia (Acute) Volume overload Anemia in ESRD (end-stage renal disease) COPD exacerbation (Acute) Acute on chronic anemia Acute pulmonary edema End stage renal disease Aortic stenosis PAT (paroxysmal atrial tachycardia) Premature atrial complexes Bradycardia Hypertensive urgency Acute hypoxemic respiratory failure (Acute) Pulmonary edema (Acute) Pneumothorax (Acute) Demand ischemia Atypical pneumonia Hypoxia Nephrostomy status Pleural effusion (Acute) Acute dyspnea (Acute) Hypoxemia (Acute) Central venous catheter in place Anemia (Chronic) Renal failure (Acute) Chronic kidney disease (Acute) [place] catheter problem (Acute) UTI (urinary tract infection) (Acute) Asymptomatic hypertensive urgency Abnormal urine findings Obstructed nephrostomy tube DVT prophylaxis DNR (do not resuscitate) Encounter for pre-operative examination Tobacco use (Chronic) Chronic anemia (Chronic) Chronic indwelling [place] catheter (Chronic) HTN (hypertension) (Chronic) Was treated for hypertensive urgency at [facility] 11/2017 Prostate cancer (Chronic) Currently in remission. On Leupron injections. CKD (chronic kidney disease), stage V (Chronic) DIALYSIS 3 X WEEK [facility] (//MON) VIA PERMA CATH Hyperkalemia (Acute) On a K restricted diet Urinary retention (Chronic) Bladder stones (Chronic) Medical History Pneumonia SOB (shortness of breath) Anemia Acute on chronic hypoxic respiratory failure Dialysis patient COPD (chronic obstructive pulmonary disease) ESRD (end stage renal disease) on dialysis Bladder stones SOB (shortness of breath) Anemia Hypoxia Acute on chronic respiratory failure with hypoxia and hypercapnia AV fistula left arm Permanent central venous catheter in place Surgical History History of surgery PLACEMENT OF NEPHROSTOMY TUBE Family History Other Breast cancer Lung cancer No pertinent family history Stomach cancer Social History Smoking Status: Current every day smoker Tobacco Type: Cigarettes Cigarettes Per Day: 4-5; Second Hand Exposure: No; Do You Dip or Chew Tobacco: No; Hx Alcohol Use: No Hx Substance Use: No Preferred Language: Thai Communication Ability: Effective Visual Impairment: No Limitations Porcelain Turner Required: No Beliefs That Will Affect Care: Adventist Adventist Beliefs: Moravian Yazdanism marital status: Current Living Situation: Spouse Current Living Situation Comment: Home Feels Safe at Home: Yes Assistive Devices: Denture - Upper, Denture - Lower and Glasses Allergies Allergies Allergy/AdvReac Type Severity Reaction Status Date / Time pantoprazole Allergy Severe EDEMA Verified 07/03/23 23:53 FACE/LIPS/TONGUE latex Allergy Unknown ON Verified 07/04/23 00:00 Foremost MED LIST Home Meds Home Medications Medication Instructions Recorded Confirmed albuterol sulfate 90 mcg/actuation 2 puff inhalation Q4H PRN 11/18/23 10/29/24 aerosol inhaler (Ventolin HFA) Shortness Of Breath Or Wheezing amlodipine 5 mg tablet 5 mg PO DAILY 11/18/23 10/29/24 lorazepam 0.5 mg tablet 0.5 mg PO TID PRN Anxiety 11/18/23 10/29/24 torsemide 100 mg tablet 100 mg PO UD 11/18/23 10/29/24 aspirin 81 mg chewable tablet 81 mg PO DAILY 10/29/24 10/29/24 atorvastatin 40 mg tablet 40 mg PO DAILY 10/29/24 10/29/24 calcium acetate 667 mg tablet See Rx Instructions .Route .COMPLEX 10/29/24 10/29/24 fluticasone fur. 100 mcg-umeclid 1 inh inhalation QAM 10/29/24 10/29/24 62.5 mcg-vilant 25 mcg inhalat.powder (Trelegy Ellipta) metoprolol succinate 50 mg 50 mg PO DAILY 10/29/24 10/29/24 tablet,extended release 24 hr vitamin B comp no.3-folic acid 1 1 tab PO DAILY 10/29/24 10/29/24 mg-vit C 60 mg-biotin 300 mcg tablet (Gill-Farzana Rx) Results & Data (ED) Vital Signs Vital Signs - 24 hr 10/29/24 11:57 10/29/24 11:57 10/29/24 11:57 Temperature Temperature Source Pulse Rate 99 H Pulse Rate [Apical] 99 H Respiratory Rate 26 H 28 H Respiratory Effort / Characteristics Spontaneous Short of Breath Spontaneous Short of Breath Labored Short of Breath Respiratory Depth Respiratory Pattern Tachypnea Blood Pressure Blood Pressure [Right Arm] Blood Pressure Mean Blood Pressure Mean [Right Arm] Pulse Oximetry 98 98 Oxygen Delivery Method Non-rebreather Non-rebreather Oxygen Flow Rate 15 15 Fraction of Inspired Oxygen 50 Sepsis New/Unexplained Change in Mental Status Sepsis Action Taken by Nursing 10/29/24 11:57 10/29/24 11:57 10/29/24 11:57 Temperature 37.5 C Temperature Source Temporal Artery Scan Pulse Rate 90 Pulse Rate [Apical] 89 Respiratory Rate 32 H 32 H Respiratory Effort / Characteristics Short of Breath Non-Labored Respiratory Depth Normal Respiratory Pattern Blood Pressure 136/91 Blood Pressure [Right Arm] 136/91 Blood Pressure Mean 106 Blood Pressure Mean [Right Arm] 106 Pulse Oximetry 92 94 94 Oxygen Delivery Method Non-rebreather BiPAP BiPAP Oxygen Flow Rate 15 Fraction of Inspired Oxygen Sepsis New/Unexplained Change in Mental Status No Sepsis Action Taken by Nursing No Action Required 10/29/24 12:06 10/29/24 12:38 10/29/24 12:39 Temperature Temperature Source Pulse Rate 102 H Pulse Rate [Apical] 88 70 Respiratory Rate 24 24 Respiratory Effort / Characteristics Respiratory Depth Respiratory Pattern Blood Pressure Blood Pressure [Right Arm] 144/81 H Blood Pressure Mean Blood Pressure Mean [Right Arm] 102 Pulse Oximetry 98 97 Oxygen Delivery Method BiPAP BiPAP Oxygen Flow Rate Fraction of Inspired Oxygen Sepsis New/Unexplained Change in Mental Status Sepsis Action Taken by Nursing 10/29/24 13:20 10/29/24 13:41 Temperature Temperature Source Pulse Rate Pulse Rate [Apical] 71 69 Respiratory Rate 22 22 Respiratory Effort / Characteristics Respiratory Depth Respiratory Pattern Blood Pressure Blood Pressure [Right Arm] 126/73 137/71 Blood Pressure Mean Blood Pressure Mean [Right Arm] 90 93 Pulse Oximetry 97 99 Oxygen Delivery Method BiPAP BiPAP Oxygen Flow Rate Fraction of Inspired Oxygen Sepsis New/Unexplained Change in Mental Status Sepsis Action Taken by Nursing Laboratory Data 10/29/24 12:27 10/29/24 12:27 Lab Results 10/29/24 10/29/24 10/29/24 Range/Units 12:27 12:33 13:01 WBC 10.29 (4.8-10.8) K/ul RBC 4.04 L (4.70-6.10) M/uL Hgb 13.1 L (14.0-18.0) g/dl POC Hgb 14.6 (14.0-18.0) g/dl Hct 41.4 L (42.0-52.0) % POC Hct 43 (42-52) % MCV 102.5 H (80.0-100.0) fL MCH 32.4 (25.0-34.0) pg MCHC 31.6 L (32.0-36.0) g/dL RDW Std Deviation 65.4 H (36.4-46.3) fL RDW Coeff of Stacy 17.6 H (11.5-14.5) % Plt Count 207 (130-400) K/uL MPV 10.0 (9.4-12.4) fL Immature Gran % (Auto) 0.4 % Neut % (Auto) 90.8 % Lymph % (Auto) 4.8 % [place] % (Auto) 3.6 % Eos % (Auto) 0.0 % Baso % (Auto) 0.4 % Neut # (Auto) 9.35 H (1.40-6.50) K/uL Lymph # (Auto) 0.49 L (1.20-3.40) K/uL [place] # (Auto) 0.37 (0.11-0.59) K/uL Eos # (Auto) 0.00 (0.00-0.50) K/uL Baso # (Auto) 0.04 (0.00-0.20) K/uL Immature Gran # (Auto) 0.04 (0.01-0.20) K/uL Ovalocytes 1+ VBG pH 7.21 L (7.36-7.41) VBG pCO2 69 H (38-50) mmHg VBG pO2 34 mmHg VBG HCO3 28 mmol/L VBG O2 Saturation < 60.0 % VBG Base Excess -1.9 mEq/L POC Sodium 137 (135-144) mmol/L Sodium 138 (136-145) mmol/L POC Potassium 5.4 H (3.3-5.0) mmol/L Potassium 5.5 H (3.5-5.1) mmol/L POC Chloride 102 (101-112) mmol/L Chloride 97 L (98-107) mmol/L Carbon Dioxide 23 (21-32) mmol/L POC Total CO2 23 L (24-31) mmol/L Anion Gap 18 H (3-11) POC Anion Gap 18.0 (16-25) mmol/L POC BUN 48 H (7-18) mg/dl BUN 50 H (6-23) mg/dl Creatinine 9.14 H* (0.6-1.4) mg/dl POC Creatinine 8.7 H* (0.6-1.3) mg/dl Est Cr Clr Drug Dosing 5.3 ml/min eGFR 5.31 BUN/Creatinine Ratio 5.5 L (10-20) Glucose 200 H (70-99(Fasting)) mg/dl POC Glucose (other) 196 H (70-99) mg/dl Lactate 5.9 H* (0.4-2.0) mmol/L Calcium 10.3 (8.6-10.3) mg/dl POC Ioniz Calcium Leia 1.11 L (1.12-1.32) mmol/l Magnesium 2.4 (1.7-2.4) mg/dl Total Bilirubin 0.7 (0.2-1.0) mg/dl Direct Bilirubin 0.1 (0-0.2) mg/dl AST 40 H (13-39) U/L ALT 30 (7-52) U/L Alkaline Phosphatase 99 (34-104) U/L Troponin I High Sens 268.6 H* (0-20) pg/ml Total Protein 8.0 (6.0-8.3) gm/dl Albumin 4.0 (3.4-5.0) gm/dl Procalcitonin 0.78 H (0-0.5) ng/ml Adenovirus (PCR) Not Detected (NotDetected) B. pertussis DNA (PCR) Not Detected (NotDetected) B.parapertussis DNA PCR Not Detected (NotDetected) C. pneumoniae DNA (PCR) Not Detected (NotDetected) Coronavirus OC43 (PCR) Not Detected (NotDetected) Coronavirus HKU1 (PCR) Not Detected (NotDetected) Coronavirus 229E (PCR) Not Detected (NotDetected) SARS-CoV-2 (PCR) Not Detected (NotDetected) Coronavirus NL63 (PCR) Not Detected (NotDetected) Human Metapneumovir PCR Not Detected (NotDetected) Influenza Type A (PCR) Not Detected (NotDetected) Influenza Type B (PCR) Not Detected (NotDetected) M. pneumoniae (PCR) Not Detected (NotDetected) Parainfluenza 1 (PCR) Not Detected (NotDetected) Parainfluenza 2 (PCR) Not Detected (NotDetected) Parainfluenza 3 (PCR) Not Detected (NotDetected) Parainfluenza 4 (PCR) Not Detected (NotDetected) RSV (PCR) Not Detected (NotDetected) Entero/Rhino (PCR) Not Detected (NotDetected) Administered Medications Discontinued Medications Albuterol (Albut/Ipratrop 3mg/0.5mg Neb 3 Ml Vial) 12 ml NEB ONE ONE; Protocol Stop: 10/29/24 11:41 Last Admin: 10/29/24 12:00 Dose: 12 ml Documented By: MMSumanth Furosemide (Furosemide 40 Mg/4 Ml Vial) 120 mg IV ONE ONE Stop: 10/29/24 12:59 Last Admin: 10/29/24 13:31 Dose: Not Given Documented By: MMG Cefepime HCl (Maxipime 2000mg) 2,000 mg in 20 mls @ 5 mls/min IV NOW STA; Protocol Stop: 10/29/24 12:46 Last Admin: 10/29/24 12:59 Dose: 5 mls/min Documented By: CEF Methylprednisolone (Methylprednisolone 125 Mg/2 Ml Vial) 60 mg IV NOW STA Stop: 10/29/24 11:41 Last Admin: 10/29/24 12:41 Dose: 60 mg Documented By: MMG Imaging Data Radiologist's Impression: Chest X-Ray 10/29/24 11:40 SINGLE VIEW CHEST CLINICAL HISTORY: Sepsis FINDINGS: 2 AP, portable, upright chest radiographs are compared to study dated 06/10/2024 and correlated with chest CT dated 11/17/2023. There are calcified hilar nodes. The cardiomediastinal heart is enlarged noting atherosclerotic calcification of the thoracic ureter. There is pulmonary vascular congestion. Emphysema and chronic interstitial thickening is similar to previous. Multifocal bilateral airspace opacities are seen throughout both lung. There is a small right pleural effusion. No pneumothorax is seen. The skeletal structures are osteopenic. The bony thorax is grossly intact. IMPRESSION: 1. Cardiomegaly and emphysema with evidence of congestive failure. 2. Multifocal bilateral airspace opacities could represent pulmonary edema and/or multifocal pneumonia. Clinical correlation will be required and radiographic follow-up to resolution is recommended 3. Right pleural effusion. ACT 112: Negative or not required by law. Electronically signed by: Pelon Bonilla M.D. 10/29/2024 11:52 AM Discharge Plan Visit Data Chief Complaint: Respiratory Problems Stated Complaint: LOW O2 & DIFFICULTY BREATHING & VITALS ED Provider: Seamus Lange Discharge Problem: Acute hypoxic respiratory failure, CHF (congestive heart failure), End stage renal disease on dialysis, COPD (chronic obstructive pulmonary disease) Condition: Critical Discharge Problem: CHF (congestive heart failure) Qualifiers: Heart failure type: unspecified Heart failure chronicity: acute Qualified Code(s): I50.9 - Heart failure, unspecified COPD (chronic obstructive pulmonary disease) Qualifiers: COPD type: unspecified COPD Qualified Code(s): J44.9 - Chronic obstructive pulmonary disease, unspecified
--- NOTE | 2024-10-29 11:54 | XRay Report ---
SINGLE VIEW CHEST CLINICAL HISTORY: Sepsis FINDINGS: 2 AP, portable, upright chest radiographs are compared to study dated 06/10/2024 and correla ari with chest CT dated 11/17/2023. There are calcified hilar nodes. The cardiomediastinal heart is en larged noting atherosclerotic calcification of the thoracic ureter. There is pulmonary vascular conge stion. Emphysema and chronic interstitial thickening is similar to previous. Multifocal bilateral air space opacities are seen throughout both lung. There is a small right pleural effusion. No pneumothor ax is seen. The skeletal structures are osteopenic. The bony thorax is grossly intact. IMPRESSION: 1. Cardiomegaly and emphysema with evidence of congestive failure. 2. Multifocal bilateral airspace opacities could represent pulmonary edema and/or multifocal pneumoni a. Clinical correlation will be required and radiographic follow-up to resolution is recommended 3. Right pleural effusion. ACT 112: Negative or not required by law. Electronically signed by: Pelon Bonilla M.D. 10/29/2024 11:52 AM
[2024-10-29] MEDS: ALBUT/IPRATROP 3MG/0.5MG NEB 3 ML VIAL NEB ONE (12:00)
[2024-10-29 12:41] LABS: Base Excess VBG -1.9 mEq/L; HCO3 VBG 28 mmol/L; Oxygen Saturation VBG < 60.0 %; PCO2 VBG 69 mmHg (38-50); PO2 VBG 34 mmHg; pH VBG 7.21 (7.36-7.41)
[2024-10-29 12:50] LABS: Hematocrit (blood only) 41.4 % (42.0-52.0); Hemoglobin 13.1 g/dl (14.0-18.0); Mean Corpuscular Hemoglobin 32.4 pg (25.0-34.0); Mean Corpuscular Volume 102.5 fL (80.0-100.0); Platelet Count 207 K/uL (130-400); RDW Standard Deviation 65.4 fL (36.4-46.3); Red Blood Count 4.04 M/uL (4.70-6.10); White Blood Count 10.29 K/ul (4.8-10.8)
--- NOTE | 2024-10-29 12:58 | History & Physical Report ---
<Statement entered by Ghassan Emanuel, DO - 10/29/24 16:27> I have seen and examined the patient and have discussed the case with the advance practice provider. I have reviewed the advanced practitioner's documentation, and I agree with, and take responsibility for that plan of care. Patient seen while in hemodialysis. Did complain of a cough developing over the weekend with sputum. Denies any fevers. No purulent sputum. Denies excessive salt or water intake. Does not feel like her usual COPD exacerbation. Reviewing data and physical exam and history seems to favor more volume overload in the setting of decreased ejection fraction, severe aortic stenosis and end- stage renal disease. Will continue antibiotics for minimum 48 hours while blood cultures are pending. However if blood cultures negative and patient significantly responds to hemodialysis would consider stopping antibiotics History feels patient has been weaned off his oxygen wearing it only at night. Will there is evidence of some demand ischemia with his troponin, suspect this is due to hypoxia. Wonder if patient exacerbation and decompensated heart failure may be due to ongoing minor hypoxia and patient really needs to be on oxygen [id number] to decrease his risks of this exacerbation. Anticipate will need 2- step oxygen testing prior to discharge I spent a total of 22 minutes coordinating, documenting, and providing care for this patient excluding time spent by another provider/QHP. Date of Service October 29, 2024 Assessment & Plan (1) Acute respiratory failure with hypoxia and hypercapnia: (2) Lactic acidosis: (3) ESRD on hemodialysis: (4) Acute hyperkalemia: (5) Elevated troponin: (6) Severe aortic stenosis: Plan Patient is an 79y/o M with PMHx significant for ESRD on HD //Mon with history of hyperkalemia, history of advanced prostate cancer with malignant ureteral obstruction s/p indwelling right-sided percutaneous nephroureteral stent placement in 2016 on indefinite androgen deprivation, history of bladder stones, severe aortic stenosis with reduced LVEF, HTN, recurrent pleural effusions previously requiring thoracentesis, prior abnormal EKG changes including ST-T abnormalities with TWI in lateral leads possibly secondary to progressive aortic valve stenosis, COPD, anemia of chronic disease secondary to ESRD and tobacco use who presented to the ED with complaints of worsening SOB and cough. Found to be acutely hypoxic with sats in the low 80s per ED provider requiring BiPAP support. #Acute respiratory failure with hypoxia and hypercapnia requiring BiPAP support #Lactic acidosis Suspect resp failure 2/2 fluid retention ISO ESRD on HD (due for HD today), acute on chronic HFrEF with severe , ? possible multifocal PNA CXR: cardiomegaly and emphysema with evidence of congestive failure, multifocal b/l airspace opacities c/f pulmonary edema and/or multifocal PNA, small R pleural effusion Initial VBG: pH 7.21, CO2 69, HCO3 28 --> repeat VBG pending s/p initiation of BiPAP support WBC WNL, Pro-Robel slightly elevated at 0.78 Initial lactate 5.9 --> repeat lactate pending, follow trend -Suspect multifactorial etiology ISO ESRD, HF/volume overload Pt afebrile, BP 130s/70s, HR 60-70s, RR 16, O2 sat 98% on BiPAP at time of my exam; not meeting sepsis criteria at time of admission S/p dose of empiric IV cefepime, 60mg IV Solu-Medrol in the ED Respiratory BioFire panel negative Blood cultures pending Will cover with empiric IV Rocephin and doxycycline for now Obtain sputum culture as able Diffusely wheezy on exam but will hold off on further corticosteroids for now as believe this is likely 2/2 fluid buildup -If still requiring BiPAP support s/p dialysis, may need to reconsider -Low threshold to repeat CXR s/p dialysis session to reassess volume overload/pulm congestion Nephro consulted -D/w Dr. Souza -Arranging for HD to be completed this afternoon #ESRD on HD //Mon #Acute hyperkalemia #H/o advanced prostate cancer with malignant ureteral obstruction s/p indwelling right-sided percutaneous nephroureteral catheter placement F/w Dr. Ramos as an OP Cr 9.14, BUN 50 at time of admission HD to be completed this afternoon, as per above Dialysis renal diet Holding torsemide for now Continue home renal supplements K 5.5 on admission --> monitor s/p dialysis Produces urine, empties percutaneous nephroureteral cath drainage bag -Pt feels he has increased sediment production --> UA pending to r/o UTI Appreciate any further nephro recs #Elevated troponin Likely demand ischemia ISO underlying ESRD/uremia, reduced LVEF with evidence of volume overload Follow trend, tele monitoring Pt w/o any cardiac complaints EKG with ST depressions, TWI in anterior leads --> ? 2/2 severe Doubt ACS but will continue to monitor repeat trops, tele #Prolonged QTc QTc 536ms on admitting EKG Avoid QTc-prolonging agents as able, monitor on repeat EKG in AM #Severe aortic stenosis with newly reduced LVEF as of 06/2024 #H/o abnormal EKG with ST-T abnormalities with TWI in lateral leads possibly 2/2 progressive aortic valve stenosis per cards F/w Nancy cards Previously admitted at [facility] 07/09/24-07/11/24 for evaluation of worsening SOB after he was found to be hypoxic and hypotensive during his dialysis session in [place] -Elevated troponin upon admission ([id number]) and started on IV heparin. Nephrology and cardiology consulted. -TTE revealed mildly reduced LVEF 40-45% with severely hypokinetic apical septal wall, severely elevated RV systolic pressures (71.8 mmHg) and severe aortic stenosis (SEAN 0.8 cm2). Patient opted for medical management and follow-up outpatient with cardiology. Discharged on supplemental oxygen: 4L with activity and 2L with rest. 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 Emanuel. Please see addendum. I spent a total of 72 minutes coordinating, documenting, and providing care for this patient excluding time spent in the performance of separately billed services or time spent by another provider/QHP. This included personally reviewing all current laboratories and imaging studies, medical reconciliation, outpatient chart review and discussion with specialists. This chart was completed in part utilizing Speech Voice Recognition Software. Grammatical errors, random word insertions, pronoun errors, and incomplete sentences are an occasional consequence of this system due to software limitations, ambient noise, and hardware issues. Any formal questions or concerns about the content, text, or information contained within the body of this dictation should be directly addressed to the provider for clarification. History of Present Illness Chief Complaint: Worsening SOB, cough Primary Care Provider: Edgar Gamble MD Patient is an 79y/o M with PMHx significant for ESRD on HD //Mon with history of hyperkalemia, history of advanced prostate cancer with malignant ureteral obstruction s/p indwelling right-sided percutaneous nephroureteral stent placement in 2015 on indefinite androgen deprivation, history of bladder stones, severe aortic stenosis with reduced LVEF, HTN, recurrent pleural effusions previously requiring thoracentesis, prior abnormal EKG changes including ST-T abnormalities with TWI in lateral leads possibly secondary to progressive aortic valve stenosis, COPD, anemia of chronic disease secondary to ESRD and tobacco use who presented to the ED with complaints of worsening SOB and cough. History obtained from the patient, patient's family at bedside, discussion with ED provider and associated chart review. Previously admitted at [facility] 07/09/24-07/11/24 for evaluation of worsening SOB after he was found to be hypoxic and hypotensive during his dialysis session in [place]. Elevated troponin upon admission ([id number]) and started on IV heparin. Nephrology and cardiology consulted. TTE revealed mildly reduced LVEF 40-45% with severely hypokinetic apical septal wall, severely elevated RV systolic pressures (71.8 mmHg) and severe aortic stenosis (SEAN 0.8 cm2). Patient opted for medical management and follow-up outpatient with cardiology. Discharged on supplemental oxygen: 4L with activity and 2L with rest. Patient presenting today with worsening SOB over the past week requiring 3L NC w ith rest and 4L NC with exertion. Prior to this, patient had been weaned down to 2L NC HS (with occasional use of 1-2L with exertion) from his previous oxygen requirements back in June. Also endorsing a productive cough of clear, and sometimes cloudy white, phlegm. No reported fevers, chills or myalgias. Denies any chest pain, lightheadedness/dizziness, syncope or recent falls. No recent known sick contacts. Denies any worsening BLE edema. Has dialysis sessions for ESRD on Monday, and Saturdays. Endorses compliance with this. Smokes 2-3 cigarettes/day, using a nicotine patch to "cut back" with intention of eventually quitting. Rare alcohol use. Reportedly hypoxic down to ~85% on RA at outpatient dialysis facility today per patient's . On BiPAP in ED at the time of my evaluation. Appears comfortable, patient states breathing feels much improved. Allergies Allergy/AdvReac Type Severity Reaction Status Date / Time pantoprazole Allergy Severe EDEMA Verified 07/03/23 23:53 FACE/LIPS/TONGUE latex Allergy Unknown ON Verified 07/04/23 00:00 [facility] MED LIST Home Medications Medication Instructions Recorded Confirmed Type albuterol sulfate 90 mcg/actuation 2 puff inhalation Q4H PRN 11/18/23 10/29/24 History aerosol inhaler (Ventolin HFA) Shortness Of Breath Or Wheezing amlodipine 5 mg tablet 5 mg PO DAILY 11/18/23 10/29/24 History lorazepam 0.5 mg tablet 0.5 mg PO TID PRN Anxiety 11/18/23 10/29/24 History torsemide 100 mg tablet 100 mg PO UD 11/18/23 10/29/24 History aspirin 81 mg chewable tablet 81 mg PO DAILY 10/29/24 10/29/24 History atorvastatin 40 mg tablet 40 mg PO DAILY 10/29/24 10/29/24 History calcium acetate 667 mg tablet See Rx Instructions .Route .COMPLEX 10/29/24 10/29/24 History fluticasone fur. 100 mcg-umeclid 1 inh inhalation QAM 10/29/24 10/29/24 History 62.5 mcg-vilant 25 mcg inhalat.powder (Trelegy Ellipta) metoprolol succinate 50 mg 50 mg PO DAILY 10/29/24 10/29/24 History tablet,extended release 24 hr vitamin B comp no.3-folic acid 1 1 tab PO DAILY 10/29/24 10/29/24 History mg-vit C 60 mg-biotin 300 mcg tablet (Gill-Farzana Rx) Past Med/Surg History Problem List (Updated 10/29/24 @ 14:40 by Violet Mckenzie PA-C) Lactic acidosis ESRD on hemodialysis Acute respiratory failure with hypoxia and hypercapnia History of insertion of nephrostomy tube Severe aortic stenosis Acute on chronic heart failure with mildly reduced ejection fraction (HFmrEF, 41-49%) Dialysis AV fistula malfunction Elevated troponin (Acute) Dialysis patient (Acute) Hypoxia (Acute) Volume overload Anemia in ESRD (end-stage renal disease) COPD exacerbation (Acute) Acute on chronic anemia Acute pulmonary edema End stage renal disease Aortic stenosis PAT (paroxysmal atrial tachycardia) Premature atrial complexes Bradycardia Hypertensive urgency Acute hypoxemic respiratory failure (Acute) Pulmonary edema (Acute) Pneumothorax (Acute) Demand ischemia Atypical pneumonia Hypoxia Nephrostomy status Pleural effusion (Acute) Acute dyspnea (Acute) Hypoxemia (Acute) Central venous catheter in place Anemia (Chronic) Renal failure (Acute) Chronic kidney disease (Acute) [place] catheter problem (Acute) UTI (urinary tract infection) (Acute) Asymptomatic hypertensive urgency Abnormal urine findings Obstructed nephrostomy tube DVT prophylaxis DNR (do not resuscitate) Encounter for pre-operative examination Tobacco use (Chronic) Chronic anemia (Chronic) Chronic indwelling [place] catheter (Chronic) HTN (hypertension) (Chronic) Was treated for hypertensive urgency at [facility] 11/2017 Prostate cancer (Chronic) Currently in remission. On Leupron injections. CKD (chronic kidney disease), stage V (Chronic) DIALYSIS 3 X WEEK [facility] (//MON) VIA PERMA CATH Hyperkalemia (Acute) On a K restricted diet Urinary retention (Chronic) Bladder stones (Chronic) Medical History Pneumonia SOB (shortness of breath) Anemia Acute on chronic hypoxic respiratory failure Dialysis patient COPD (chronic obstructive pulmonary disease) ESRD (end stage renal disease) on dialysis Bladder stones SOB (shortness of breath) Anemia Hypoxia Acute on chronic respiratory failure with hypoxia and hypercapnia AV fistula left arm Permanent central venous catheter in place Surgical History History of surgery PLACEMENT OF NEPHROSTOMY TUBE Family History Other Breast cancer Lung cancer No pertinent family history Stomach cancer Social History Smoking Status: Current every day smoker Tobacco Type: Cigarettes Cigarettes Per Day: 4-5; Second Hand Exposure: No; Do You Dip or Chew Tobacco: No; Hx Alcohol Use: No Hx Substance Use: No Preferred Language: Uzbek Communication Ability: Effective Visual Impairment: No 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 Physical Exam Physical Exam: General: Elderly M, ill-appearing, laying down in bed, A&Ox3, family at bedside, appears sleepy but overall comfortable HEENT: Normocephalic, atraumatic, dry mucous membranes Respiratory: On BiPAP with O2 sat 98%, RR 16, bibasilar crackles with diffuse wheezing, no accessory muscle use Cardiovascular: RRR, + systolic murmur heard along L sternal border, normal peripheral pulses, trace BLE edema Abdomen/GI: Active bowel sounds, soft, nontender to palpation in all quadrants Extremities/MSK: No cyanosis or clubbing, extremities motor strength intact, moves all extremities Neurologic: No overt focal deficits, CN's II-XI not formally tested but appear grossly intact bilaterally Results & Data Results & Data Vital Signs (Past 12 Hours) Vital Signs Temp Pulse Pulse Resp BP BP Pulse Ox 10/29/24 12:39 70 24 144/81 H 97 10/29/24 12:38 102 H 10/29/24 12:06 88 24 98 10/29/24 11:57 94 10/29/24 11:57 89 32 H 136/91 94 10/29/24 11:57 37.5 C 90 32 H 136/91 92 10/29/24 11:57 10/29/24 11:57 99 H 28 H 98 10/29/24 11:57 99 H 26 H 98 O2 Del Method O2 Flow Rate FiO2 10/29/24 12:39 BiPAP 10/29/24 12:38 10/29/24 12:06 BiPAP 10/29/24 11:57 BiPAP 10/29/24 11:57 BiPAP 10/29/24 11:57 Non-rebreather 15 10/29/24 11:57 Non-rebreather 15 10/29/24 11:57 50 10/29/24 11:57 Non-rebreather 15 Laboratory Results Short CBC 10/29/24 Range/Units 12:27 WBC 10.29 (4.8-10.8) K/ul Hgb 13.1 L (14.0-18.0) g/dl Hct 41.4 L (42.0-52.0) % Plt Count 207 (130-400) K/uL Diagnostic Findings Chest X-Ray 10/29/24 11:40 SINGLE VIEW CHEST CLINICAL HISTORY: Sepsis FINDINGS: 2 AP, portable, upright chest radiographs are compared to study dated 06/10/2024 and correlated with chest CT dated 11/17/2023. There are calcified hilar nodes. The cardiomediastinal heart is enlarged noting atherosclerotic calcification of the thoracic ureter. There is pulmonary vascular congestion. Emphysema and chronic interstitial thickening is similar to previous. Multifocal bilateral airspace opacities are seen throughout both lung. There is a small right pleural effusion. No pneumothorax is seen. The skeletal structures are osteopenic. The bony thorax is grossly intact. IMPRESSION: 1. Cardiomegaly and emphysema with evidence of congestive failure. 2. Multifocal bilateral airspace opacities could represent pulmonary edema and/or multifocal pneumonia. Clinical correlation will be required and radiographic follow-up to resolution is recommended 3. Right pleural effusion. ACT 112: Negative or not required by law. Electronically signed by: Pelon Bonilla M.D. 10/29/2024 11:52 AM Medications Administered Discontinued Medications Albuterol (Albut/Ipratrop 3mg/0.5mg Neb 3 Ml Vial) 12 ml NEB ONE ONE; Protocol Stop: 10/29/24 11:41 Last Admin: 10/29/24 12:00 Dose: 12 ml Documented By: JANIYA Cefepime HCl (Maxipime 2000mg) 2,000 mg in 20 mls @ 5 mls/min IV NOW STA; Protocol Stop: 10/29/24 12:46 Last Admin: 10/29/24 12:59 Dose: 5 mls/min Documented By: CEF Methylprednisolone (Methylprednisolone 125 Mg/2 Ml Vial) 60 mg IV NOW STA Stop: 10/29/24 11:41 Last Admin: 10/29/24 12:41 Dose: 60 mg Documented By: JANIYA Code Status & VTE Plan Code Status FULL CODE - As per discussion with the patient and his family at bedside in the ED.
[2024-10-29] MEDS: CEFEPIME 2000MG 2,000 MG/20 ML SYR IV STA (12:59)
--- NOTE | 2024-10-29 13:06 | Electrocardiogram Report ---
Test Reason : Blood Pressure : */* mmHG Vent. Rate : 100 BPM Atrial Rate : 100 BPM P-R Int : 176 ms QRS Dur : 96 ms QT Int : 416 ms P-R-T Axes : 65 -41 119 degrees QTcB Int : 536 ms Normal sinus rhythm Left axis deviation Left ventricular hypertrophy with repolarization abnormality vs ischemia Prolonged QT Abnormal ECG When compared with ECG of 10-Jun-2024 14:37, ST now depressed in Anterior leads T wave inversion now evident in Anterior leads QT has lengthened Confirmed by Kael Alfaro ([id number]) on 10/29/2024 1:06:16 PM Referred By: Confirmed By: Kael Alfaro
[2024-10-29 13:09] LABS: Immature Granulocytes # (auto) 0.04 K/uL (0.01-0.20); Immature Granulocytes % (auto) 0.4 %; Ovalocytes 1+
--- NOTE | 2024-10-29 13:11 | Nephrology Consultation ---
Date of Consultation October 29, 2024 Assessment & Plan (1) ESRD on hemodialysis: on TTS HD urgent HD today on his dialysis day to help stabilize breathing; marked volume overload on chest XR >cont phoslo 2 ac >cont renal vitamin >hold lasix ordered in ER pending UF w/ HD >>continue toprol; hold amlodipine, torsemide for max BP on HD today > eval for repeat tx tomorrow pending status (2) Acute respiratory failure with hypoxia and hypercapnia: multifactorial from HF (w/ severe ), ESRD, and COPD -on ceftriaxone, doxycycline (3) History of insertion of nephrostomy tube: monitor OP (4) Acute on chronic heart failure with mildly reduced ejection fraction (HFmrEF, 41-49%): in setting of ESRD, severe >>UF as above (5) COPD exacerbation: History of Present Illness Reason for Consultation: ESRD on HD Requesting Physician: Dr Lange Attending Physician: Dr Lange History of Present Illness 79 y/o M whom I'm asked to see for dialysis needs came to ED late this morning with a week of worsening dyspnea and cough, increasing 02 needs; was found to have sats in 80s on RA and started on BiPap. PMH includes COPD on home oxygen 2-4 L, R pleural effusion, hypertension, nonrheumatic newly severe aortic valve stenosis (referred last month to valve clinic [facility] [place]), active tobacco abuse, end-stage renal disease on hemodialysis, hx of R hydronephrosis, bladder stones, and prostate cancer w/ R nephrostomy tube. Also endorses symptomatic seasonal affective disorder and anxiety. He dialyzes [facility] in [place] under Dr Ramos's care, last full tx 10/27. Runs Some recent hospital admissions: -06/10-06/12 [facility] hyperkalemia, ESRD, suspected AVF malfunction -[facility] 07/09- for hypoxia, hypotension at HD; TTE notable for severe (SEAN 0.8 cm sq), severe RV SBP (72 mmHg), newly reduced EF 40-45% w/ severely hypokinetic apical wall; d/c home on 4L 02 activity, 2L w/ rest/25 and daughter at bedside and give much of hx as pt is on bipap. pt notes nephrostomy output has been more cloudy recently but no blood no d/c or purulence. no f/c. 02 needs have increased recently most notably to 3L at rest, 4 L w/ exertion; apparently this summer had weaned to just hs 02. productive cough past week as well. no palpitations or chest pain. no edema. no n/v/d/abd pain. Allergies Allergy/AdvReac Type Severity Reaction Status Date / Time pantoprazole Allergy Severe EDEMA Verified 07/03/23 23:53 FACE/LIPS/TONGUE latex Allergy Unknown ON Verified 07/04/23 00:00 [id number] Home Medications Medication Instructions Recorded Confirmed Type albuterol sulfate 90 mcg/actuation 2 puff inhalation Q4H PRN 11/18/23 10/29/24 History aerosol inhaler (Ventolin HFA) Shortness Of Breath Or Wheezing amlodipine 5 mg tablet 5 mg PO DAILY 11/18/23 10/29/24 History lorazepam 0.5 mg tablet 0.5 mg PO TID PRN Anxiety 11/18/23 10/29/24 History torsemide 100 mg tablet 100 mg PO UD 11/18/23 10/29/24 History aspirin 81 mg chewable tablet 81 mg PO DAILY 10/29/24 10/29/24 History atorvastatin 40 mg tablet 40 mg PO DAILY 10/29/24 10/29/24 History calcium acetate 667 mg tablet See Rx Instructions .Route .COMPLEX 10/29/24 10/29/24 History fluticasone fur. 100 mcg-umeclid 1 inh inhalation QAM 10/29/24 10/29/24 History 62.5 mcg-vilant 25 mcg inhalat.powder (Trelegy Ellipta) metoprolol succinate 50 mg 50 mg PO DAILY 10/29/24 10/29/24 History tablet,extended release 24 hr vitamin B comp no.3-folic acid 1 1 tab PO DAILY 10/29/24 10/29/24 History mg-vit C 60 mg-biotin 300 mcg tablet ([facility]) Patient History Medical History Pneumonia SOB (shortness of breath) Anemia Acute on chronic hypoxic respiratory failure Dialysis patient COPD (chronic obstructive pulmonary disease) ESRD (end stage renal disease) on dialysis Bladder stones SOB (shortness of breath) Anemia Hypoxia Acute on chronic respiratory failure with hypoxia and hypercapnia AV fistula left arm Permanent central venous catheter in place Surgical History History of surgery PLACEMENT OF NEPHROSTOMY TUBE Family History Other Breast cancer Lung cancer No pertinent family history Stomach cancer Social History Smoking Status: Current every day smoker Tobacco Type: Cigarettes Cigarettes Per Day: 4-5; Second Hand Exposure: No; Do You Dip or Chew Tobacco: No; Hx Alcohol Use: No Hx Substance Use: No Preferred Language: [place] Communication Ability: Effective Visual Impairment: No Limitations 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: No Beliefs That Will Affect Care: Mandaeism Mandaeism Beliefs: Denominational Sikh marital status: Current Living Situation: Spouse Current Living Situation Comment: Home Feels Safe at Home: Yes Assistive Devices: Denture - Upper, Denture - Lower and Glasses Review of Systems 2 Review of Systems: All systems reviewed & are unremarkable except as noted in HPI & below Physical Exam 2 Constitutional: well developed, + cachectic, + frail appearing and cooperative; no acute distress (on bipap) Eyes: EOM intact bilaterally ENMT: Mouth: + dry oral mucous membranes Respiratory: + labored breathing, + cough, + tachypne ic and + prolonged expiratory phase Auscultation: + diminished lung sounds, + crackles and + wheezes Cardiovascular: Rate/Rhythm: regular rate and regular rhythm Extremities: + AV fistula; no edema Gastrointestinal (Abdomen): Inspection/Auscultation: normal bowel sounds and + abdominal surgical drain present (R nephrostomy) Percussion/Palpation: a bdomen soft; abdomen nontender Musculoskeletal: Extremities: strength 5/5 throughout Skin: no rashes, warm and dry Neurologic: uribe, fluent speech but limited on bipap, no tremor Results & Data Vital Signs (Past 12 Hours) Vital Signs Temp Pulse Pulse Resp BP BP Pulse Ox 10/29/24 12:39 70 24 144/81 H 97 10/29/24 12:38 102 H 10/29/24 12:06 88 24 98 10/29/24 11:57 94 10/29/24 11:57 89 32 H 136/91 94 10/29/24 11:57 37.5 C 90 32 H 136/91 92 10/29/24 11:57 10/29/24 11:57 99 H 28 H 98 10/29/24 11:57 99 H 26 H 98 O2 Del Method O2 Flow Rate FiO2 10/29/24 12:39 BiPAP 10/29/24 12:38 10/29/24 12:06 BiPAP 10/29/24 11:57 BiPAP 10/29/24 11:57 BiPAP 10/29/24 11:57 Non-rebreather 15 10/29/24 11:57 Non-rebreather 15 10/29/24 11:57 50 10/29/24 11:57 Non-rebreather 15 Laboratory Results 10/29/24 12:27 Diagnostic Findings cxr 1. Cardiomegaly and emphysema with evidence of congestive failure. 2. Multifocal bilateral airspace opacities could represent pulmonary edema and/or multifocal pneumonia. Clinical correlation will be required and radiographic follow-up to resolution is recommended 3. Right pleural effusion.
[2024-10-29] MEDS ORDERED: SODIUM CHLORIDE 0.9% 1,000 ML IV PRN (13:18)
[2024-10-29 13:22] LABS: Alanine Aminotransferase 30.0 U/L (7-52); Alkaline Phosphatase 99.0 U/L (34-104); Anion Gap 18.0 (3-11); Bilirubin,Total 0.7 mg/dl (0.2-1.0); Blood Urea Nitrogen 50.0 mg/dl (6-23); Calcium 10.3 mg/dl (8.6-10.3); Carbon Dioxide 23.0 mmol/L (21-32); Chloride 97.0 mmol/L (98-107); Glucose 200.0 mg/dl (70-99(Fasting)); Magnesium 2.4 mg/dl (1.7-2.4); Potassium 5.5 mmol/L (3.5-5.1); Sodium 138.0 mmol/L (136-145); Total Protein 8.0 gm/dl (6.0-8.3)
[2024-10-29 13:23] LABS: Creatinine Clr Calc Pharmacy 5.3 ml/min
[2024-10-29] MEDS: FUROSEMIDE 40 MG/4 ML VIAL IV ONE (13:31)
[2024-10-29 14:10] LABS: Chlamydia pneumoniae PCR Not Detected (NotDetected); Coronavirus 229E PCR Not Detected (NotDetected); Coronavirus CoV-2 (COVID19)PCR Not Detected (NotDetected); Coronavirus HKU1 PCR Not Detected (NotDetected); Coronavirus NL63 PCR Not Detected (NotDetected); Coronavirus OC43PCR Not Detected (NotDetected); Human Metapneumovirus PCR Not Detected (NotDetected); Parainfluenza Virus 1 PCR Not Detected (NotDetected); Parainfluenza Virus 2 PCR Not Detected (NotDetected); Parainfluenza Virus 3 PCR Not Detected (NotDetected); Parainfluenza Virus 4 PCR Not Detected (NotDetected); Respiratory Syncytial VirusPCR Not Detected (NotDetected); Rhinovirus/Enterovirus PCR Not Detected (NotDetected)
[2024-10-29] MEDS: HEPARIN SOD (PORCINE) 1000 UNIT/ML IV ONE ×2 (15:17→23:41)
[2024-10-29] MEDS: HEPARIN SOD (PORCINE) 1000 UNIT/ML IV SCH (15:18)
[2024-10-29] MEDS ORDERED: MAGNESIUM HYDROXIDE SUSP 30 ML UDC PO PRN (16:51)
[2024-10-29] MEDS ORDERED: ACETAMINOPHEN 325 MG TAB PO PRN (16:51)
[2024-10-29] MEDS ORDERED: POLYETHYLENE (MIRALAX) 17 GM PACK PO PRN (16:51)
[2024-10-29] MEDS: CALCIUM ACETATE 667 MG CAP/TAB PO SCH (17:44)
[2024-10-29] MEDS: cefTRIAXone SODIUM 2,000 MG/50 ML BAG IV SCH (17:44)
[2024-10-29] MEDS: DOXYCYCLINE HYCLATE 100 MG in DEXTROSE 5% MINI-B 100 ML IV SCH (17:44)
[2024-10-29 18:41] LABS: Base Excess VBG 5.8 mEq/L; HCO3 VBG 31 mmol/L; Oxygen Saturation VBG 70.5 %; PCO2 VBG 47 mmHg (38-50); PO2 VBG 42 mmHg; pH VBG 7.43 (7.36-7.41)
[2024-10-29] MEDS: NICOTINE 14 MG/24 HR PATCH TD SCH (19:40)
--- NOTE | 2024-10-29 20:51 | Dialysis Progress Note ---
Date of Service October 29, 2024 Assessment & Plan (1) ESRD on hemodialysis: Plan: on TTS HD urgent HD today on his dialysis day to help stabilize breathing; marked volume overload on chest XR >cont phoslo 2 ac >cont renal vitamin >>continue toprol; hold amlodipine, torsemide for max BP on HD today >anemia well controlled > hgb 13.1 > eval for repeat tx tomorrow pending status >> likely to need it and pt aware/agreeable (2) Acute respiratory failure with hypoxia and hypercapnia: Plan: multifactorial from HF (w/ severe ), ESRD, and COPD -on ceftriaxone, doxycycline (3) History of insertion of nephrostomy tube: Plan: monitor OP (4) Acute on chronic heart failure with mildly reduced ejection fraction (HFmrEF, 41-49%): Plan: in setting of ESRD, severe >>UF as above (5) COPD exacerbation: Admission and Anticipated Discharge Date Admission Date: October 29, 2024 Subjective delayed note entry. Patient seen on dialysis treatment today and tolerating well. Blood pressure maintained. No cramping no nausea vomiting no chest pain. Plan was to attempt to wean BiPAP once 2 L of fluid were removed. Review of Systems 2 Review of Systems: All systems reviewed & are unremarkable except as noted in Subjective Physical Exam 2 Constitutional: well developed, + cachectic, + frail appearing and cooperative; no acute distress (on bipap) Eyes: EOM intact bilaterally ENMT: Mouth: + dry oral mucous membranes Respiratory: + labored breathing, + cough, + tachypne ic and + prolonged expiratory phase Auscultation: + diminished lung sounds, + crackles and + wheezes Cardiovascular: Rate/Rhythm: regular rate and regular rhythm Extremities: + AV fistula; no edema Gastrointestinal (Abdomen): Inspection/Auscultation: normal bowel sounds and + abdominal surgical drain present (R nephrostomy) Percussion/Palpation: a bdomen soft; abdomen nontender Musculoskeletal: Extremities: strength 5/5 throughout Skin: no rashes, warm and dry Results & Data Vital Signs (Past 12 Hours) Vital Signs Temp Pulse Pulse Pulse Resp BP BP 10/29/24 19:49 36.7 C 76 18 117/63 10/29/24 18:01 10/29/24 17:35 36.9 C 65 112/64 10/29/24 17:00 69 105/68 10/29/24 16:54 36.8 C 66 18 105/60 10/29/24 16:30 71 129/75 10/29/24 16:00 66 91/49 L 10/29/24 15:39 66 10/29/24 15:30 65 119/71 10/29/24 15:00 62 99/66 L 10/29/24 14:30 65 96/56 L 10/29/24 14:01 66 105/70 10/29/24 13:54 36.9 C 66 10/29/24 13:41 69 22 137/71 10/29/24 13:20 71 22 126/73 10/29/24 12:39 70 24 144/81 H 10/29/24 12:38 102 H 10/29/24 12:06 88 24 10/29/24 11:57 10/29/24 11:57 89 32 H 136/91 10/29/24 11:57 37.5 C 90 32 H 136/91 10/29/24 11:57 10/29/24 11:57 99 H 28 H 10/29/24 11:57 99 H 26 H Pulse Ox O2 Del Method O2 Flow Rate FiO2 10/29/24 19:49 96 Nasal Cannula 4 10/29/24 18:01 Nasal Cannula 4 10/29/24 17:35 10/29/24 17:00 10/29/24 16:54 99 Nasal Cannula 2 10/29/24 16:30 10/29/24 16:00 10/29/24 15:39 10/29/24 15:30 10/29/24 15:00 10/29/24 14:30 10/29/24 14:01 10/29/24 13:54 10/29/24 13:41 99 BiPAP 10/29/24 13:20 97 BiPAP 10/29/24 12:39 97 BiPAP 10/29/24 12:38 10/29/24 12:06 98 BiPAP 10/29/24 11:57 94 BiPAP 10/29/24 11:57 94 BiPAP 10/29/24 11:57 92 Non-rebreather 15 10/29/24 11:57 Non-rebreather 15 10/29/24 11:57 98 50 10/29/24 11:57 98 Non-rebreather 15 Laboratory Results 10/29/24 12:27 10/29/24 12:27
[2024-10-29 22:37] LABS: Epithelial Cell Urine 0-2 /hpf (0-2)
[2024-10-29 23:26] LABS: INR 1.2 (0.9-1.1); Partial Thromboplastin Time 29 Seconds (21-31); Prothrombin Time 12.7 Seconds (9.0-12.0)
[2024-10-29] MEDS: Heparin IV Adult Wt-Based Standard w/ INITIAL Bolus Protocol IV STA (23:41)
[2024-10-29] MEDS: HEPARIN 25000 UNIT/500 ML D5W 25,000 UNITS/500 ML BAG IV SCH (23:42)
[2024-10-30 03:42] LABS: Anion Gap 9.0 (3-11); Bilirubin,Total 0.5 mg/dl (0.2-1.0); Calcium 9.2 mg/dl (8.6-10.3); Carbon Dioxide 26.0 mmol/L (21-32); Chloride 98.0 mmol/L (98-107); Magnesium 2.1 mg/dl (1.7-2.4); Potassium 5.0 mmol/L (3.5-5.1); Sodium 133.0 mmol/L (136-145)
[2024-10-30 03:52] LABS: Alanine Aminotransferase 21.0 U/L (7-52); Albumin Globulin Ratio 1.1 (0.9-2); Alkaline Phosphatase 69.0 U/L (34-104); Blood Urea Nitrogen 39.0 mg/dl (6-23); Creatinine Clr Calc Pharmacy 7.5 ml/min; Globulin 3.0 gm/dl (2.5-4.0); Glucose 145.0 mg/dl (70-99(Fasting)); Total Protein 6.2 gm/dl (6.0-8.3)
[2024-10-30 04:09] LABS: Hematocrit (blood only) 29.5 % (42.0-52.0); Hemoglobin 9.3 g/dl (14.0-18.0); Immature Granulocytes # (auto) 0.04 K/uL (0.01-0.20); Immature Granulocytes % (auto) 0.4 %; Mean Corpuscular Hemoglobin 31.1 pg (25.0-34.0); Mean Corpuscular Volume 98.7 fL (80.0-100.0); Platelet Count 159 K/uL (130-400); RDW Standard Deviation 62.4 fL (36.4-46.3); Red Blood Count 2.99 M/uL (4.70-6.10); White Blood Count 10.05 K/ul (4.8-10.8)
[2024-10-30 07:08] LABS: ANTI-Xa, UFH(UnfractionatedHep 0.48 IU/ml (0.3-0.7)
[2024-10-30] MEDS ORDERED: SODIUM CHLORIDE 0.9% 1,000 ML IV PRN (07:30)
[2024-10-30] MEDS: FLUTICASONE FUROATE 100MCG 14 PUFFS/INHALER INH SCH (08:36)
[2024-10-30] MEDS: UMECLIDINIUM/VILANTEROL 62.5/25MCG 7 PUFFS/INHALER INH SCH (08:36)
[2024-10-30] MEDS: REMOVE NICODERM PATCH SCH (08:36)
[2024-10-30] MEDS: METOPROLOL SUCC 50MG EXT REL TAB PO SCH (08:37)
[2024-10-30] MEDS: ATORVASTATIN 40 MG TAB PO SCH (08:37)
[2024-10-30] MEDS: NEPHROCAPS PO SCH (08:37)
[2024-10-30] MEDS: ASPIRIN 81 MG CHEW PO SCH (08:39)
--- NOTE | 2024-10-30 08:53 | Cardiology Consultation ---
Date of Consultation October 30, 2024 Assessment & Plan (1) Acute heart failure with reduced ejection fraction (HFrEF, <= 40%) and combined systolic and diastolic dysfunction: (2) Severe aortic stenosis: (3) Acute respiratory failure with hypoxia and hypercapnia: (4) ESRD on hemodialysis: Plan Patient admitted with worsening SOB, hypoxia consistent with acute on chronic HFrEF secondary to severe valvular heart disease and NSTEMI. Elevated troponin also noted at 12,000. No chest pain. EKG with chronic ST/T wave abnormality in anterolateral leads, similar to tracing in August 2024. This is his second admission for worsening HF symptoms over the last few months. Volume status managed through HD. This morning, his symptoms have improved after treatment yesterday with additional volume removal. Repeat HD session planned for today. He was originally scheduled as an outpatient for [facility] [place] to discuss his Severe but this is not till November. Given his worsening/progressive symptoms and acute CHF with NSTEMI, recommend more urgent evaluation and transfer to tertiary care center. He would need diagnostic cardiac cath and then valve evaluation. Until then, he was started on IV heparin for NSTEMI - continue Continue ASA, statin, metoprolol. If he develops chest pain, consider nitrates if BP allows. appreciate nephrology input and assistance with volume removal with HD Case discussed with Dr. Reed. Further recommendations pending his evaluation. I spent a total of 60 minutes on the date of service in preparation, delivery, and documentation of the care provided to this patient, excluding any time spent in the performance of separately billed services. Margarita Saunders PA-C Department of Cardiology, [facility] This chart was completed in part utilizing Speech Voice Recognition Software. Grammatical errors, random word insertions, pronoun errors, and incomplete sentences are an occasional consequence of this system due to software limitations, ambient noise, and hardware issues. Any formal questions or concerns about the content, text, or information contained within the body of this dictation should be directly addressed to the provider for clarification. Supervising Physician Co-Signing Physician Notes I have personally performed a history and physical examination on the patient. I have reviewed the advance practitioner's documentation, and I agree with, and take responsibility for the plan of care. 79-year-old male with chronic hypoxic respiratory failure, end-stage renal disease on hemodialysis, severe aortic valve stenosis with presumed underlying ischemic heart disease presents with acute decompensated heart failure with mildly reduced LV ejection fraction. Markedly elevated high-sensitivity troponin (greater than 12,000) noted on admission without chest discomfort. Echocardiogram demonstrating mildly reduced LV systolic function with apical wall motion abnormality. Patient clinically improved after 2 hemodialysis treatments. Discussed further evaluation and treatment of underlying valvular heart disease and acute NSTEMI. Continue medical management with IV heparin, aspirin, high intensity statin therapy, and Toprol-XL. Recommend transfer to tertiary care facility, [facility] in [place] for cardiac catheterization and hemodynamic valve assessment. Patient agreeable to transfer. Recommendations discussed with primary service and patient's . Patient accepted for transfer to [facility]. I spent a total of 50 minutes on the date of service in preparation, delivery, and documentation of the care provided to this patient, excluding any time spent in the performance of separately billed services. Jerson Reed DO, [facility] History of Present Illness Reason for Consultation: Elevated troponin; Requesting Physician: Dr. Montague - [facility] Hospitalist Attending Physician: Dr. Reed History of Present Illness Patient is an 79 year old male who presented to [facility] yesterday with worsening SOB over the last few days, found to be hypoxic and pulm vascular congestion on chest xray. Found to be hypoxic and started on BIPAP therapy. Nephrology consulted and patient sent for urgent HD yesterday and additional volume removed during treatment with improvement in his symptoms. Lactate was also elevated. Chest xray demonstrating possible pneumonia and started on antibiotics. Elevated troponin also noted 268 - [id number] - [id number] - [id number]. Patient denies acute chest pain with the elevated troponin. He was started on IV heparin. Abnormal EKG noted on arrival - NSR with T wave inversions in lateral leads, similar to August 2024 tracing. At time of consult, patient resting in bed comfortably. Reports SOB persists but much improved from yesterday. No chest pain this morning. He was ambulating in hallways this morning as well without chest pain. Ongoing dyspnea reported. No edema. No palpitations. Cardiac Problems: 1. Severe Aortic stenosis - noted during admission to [facility] June 2024 2. Hypertension 3. ESRD on HD (T, TH, and Sat) 4. Recurrent pleural effusions 5. Admission in June 2024 for acute respiratory failure with hypoxia and hypotension. Echo revealed mildly reduced LVEF at 40-45%, hypokinesis of the apical septal wall, and severe (SEAN 0.8 cm2). He had elevated troponin at the time. No acute cardiac symptoms, other than SOB. Diuresed with HD. Discharged on supplemental O2 4 L with activity and 2 L at rest. At cardio f/u in July 2024 - he was referred to [facility] valve clinic but not yet seen. Awaiting appointment Allergies Allergy/AdvReac Type Severity Reaction Status Date / Time pantoprazole Allergy Severe EDEMA Verified 07/03/23 23:53 FACE/LIPS/TONGUE latex Allergy Unknown ON Verified 07/04/23 00:00 Proofpoint LIST Home Medications Medication Instructions Recorded Confirmed Type albuterol sulfate 90 mcg/actuation 2 puff inhalation Q4H PRN 11/18/23 10/29/24 History aerosol inhaler (Ventolin HFA) Shortness Of Breath Or Wheezing amlodipine 5 mg tablet 5 mg PO DAILY 11/18/23 10/29/24 History lorazepam 0.5 mg tablet 0.5 mg PO TID PRN Anxiety 11/18/23 10/29/24 History torsemide 100 mg tablet 100 mg PO UD 11/18/23 10/29/24 History aspirin 81 mg chewable tablet 81 mg PO DAILY 10/29/24 10/29/24 History atorvastatin 40 mg tablet 40 mg PO DAILY 10/29/24 10/29/24 History calcium acetate 667 mg tablet See Rx Instructions .Route .COMPLEX 10/29/24 10/29/24 History fluticasone fur. 100 mcg-umeclid 1 inh inhalation QAM 10/29/24 10/29/24 History 62.5 mcg-vilant 25 mcg inhalat.powder (Trelegy Ellipta) metoprolol succinate 50 mg 50 mg PO DAILY 10/29/24 10/29/24 History tablet,extended release 24 hr vitamin B comp no.3-folic acid 1 1 tab PO DAILY 10/29/24 10/29/24 History mg-vit C 60 mg-biotin 300 mcg tablet (Gill-Farzana Rx) Patient History Medical History Pneumonia SOB (shortness of breath) Anemia Acute on chronic hypoxic respiratory failure Dialysis patient COPD (chronic obstructive pulmonary disease) ESRD (end stage renal disease) on dialysis Bladder stones SOB (shortness of breath) Anemia Hypoxia Acute on chronic respiratory failure with hypoxia and hypercapnia AV fistula left arm Permanent central venous catheter in place Surgical History History of surgery PLACEMENT OF NEPHROSTOMY TUBE Family History Other Breast cancer Lung cancer No pertinent family history Stomach cancer Social History Smoking Status: Current every day smoker Tobacco Type: Cigarettes Cigarettes Per Day: 4-5; Second Hand Exposure: No; Do You Dip or Chew Tobacco: No; Tobacco Cessation Education Requested by Patient: No Hx Alcohol Use: No Hx Substance Use: No Preferred Language: Cape Verdean Communication Ability: Effective Visual Impairment: No Limitations Manager Architectural Required: No Beliefs That Will Affect Care: None marital status: Current Living Situation: Spouse Current Living Situation Comment: Home Other Information That Helps Us Care for You: No Feels Safe at Home: Yes Safety Concerns: Feels Safe At This Time Assistive Devices: Cane, Oxygen - at Night and Walker Review of Systems Review of Systems: All systems reviewed & are unremarkable except as noted in HPI & below Physical Exam Constitutional: WD/WN, vitals as above no acute distress Neck: normal visual inspection Respiratory: normal respiratory effort Auscultation: + diminished lung sounds, + crackles and + rales Cardiovascular: Rate/Rhythm: regular rate and regular rhythm Heart Sounds: + murmur (III/ systolic murmur LSB) Vessels: + JVD Extremities: no edema Gastrointestinal (Abdomen): normal bowel sounds, soft, nontender, no hepatosplenomegaly Neurologic: PERRL, EOMI, accommodation nl, no face palsy, no dysarthria Results & Data Vital Signs (Past 12 Hours) Vital Signs Temp Pulse Resp BP Pulse Ox O2 Del Method O2 Flow Rate 10/30/24 07:46 36.7 C 75 18 139/80 99 Nasal Cannula 4 10/30/24 03:53 72 18 117/74 98 Nasal Cannula 4 10/29/24 23:00 36.6 C 72 18 114/69 Nasal Cannula 4 Laboratory Results Cardiac Enzymes 0910/29/24 10/30/24 Range/Units 18:19 22:35 01:31 AST (13-39) U/L Troponin I High Sens 8569.6 H* D 94792.9 H* D 26856.9 H* (0-20) pg/ml 10/30/24 10/30/24 Range/Units 03:05 05:58 AST 52 H (13-39) U/L Troponin I High Sens 12893.7 H* (0-20) pg/ml Coagulation 10/29/24 Range/Units 22:38 PT 12.7 H (9.0-12.0) Seconds APTT 29 (21-31) Seconds CBC 10/30/24 Range/Units 03:05 WBC 10.05 (4.8-10.8) K/ul RBC 2.99 L (4.70-6.10) M/uL Hgb 9.3 L D (14.0-18.0) g/dl Hct 29.5 L (42.0-52.0) % Plt Count 159 (130-400) K/uL Neut # (Auto) 8.91 H (1.40-6.50) K/uL Lymph # (Auto) 0.66 L (1.20-3.40) K/uL Tate # (Auto) 0.43 (0.11-0.59) K/uL Eos # (Auto) 0.00 (0.00-0.50) K/uL Baso # (Auto) 0.01 (0.00-0.20) K/uL Comprehensive Metabolic Panel 10/30/24 Range/Units 03:05 Sodium 133 L (136-145) mmol/L Potassium 5.0 (3.5-5.1) mmol/L Chloride 98 (98-107) mmol/L Carbon Dioxide 26 (21-32) mmol/L BUN 39 H (6-23) mg/dl Creatinine 6.49 H* D (0.6-1.4) mg/dl Glucose 145 H (70-99(Fasting)) mg/dl Calcium 9.2 (8.6-10.3) mg/dl AST 52 H (13-39) U/L ALT 21 (7-52) U/L Alkaline Phosphatase 69 (34-104) U/L Total Protein 6.2 D (6.0-8.3) gm/dl Albumin 3.2 L (3.4-5.0) gm/dl Intake and Output 10/29/24 10/30/24 10/30/24 22:59 06:59 14:59 Intake Total 390 / 390 516.833 / 516.833 Balance 390 / 390 516.833 / 516.833 Intake: IV 150 / 150 266.833 / 266.833 Doxycycline Hyclate 100 mg In 100 / 100 100 / 100 Dextrose 5% Mini-B 100 ml @ 50 mls/hr IV Q12H [facility] Rx#:[id number] Heparin 50122 Unit/500 ml D5w 166.833 / 166.833 25,000 units In 500 ml @ 1,100 UNITS/HR 22 mls/hr IV .[id number] [facility] Rx#:[id number] cefTRIAXone SODIUM 2,000 mg In 50 / 50 50 ml @ 100 mls/hr IV Q24H [facility] Rx#:[id number] Oral 240 / 240 250 / 250 Other: Hemodialysis Ultrafiltration 2,500 Amount Weight 61.3 kg 58.7 kg 58.7 kg Weight Measurement Method [facility] in [facility] Built in [facility] Built in [facility] Patient Weight 10/31/24 06:59 Weight 58.7 kg Diagnostic Findings Telemetry reviewed: NSR in the 70s EKG reviewed from this morning 10/30: NSR with diffuse ST/T wave abnormality in anterolateral leads. Similar to tracing in August 2024. Echo report reviewed dated 10/30/24: LVEF mildly reduced at 40-45% Severe hypokinesis of the apical septal wall, otherwise diffuse LV hypokinesis Aortic valve is severely calcified mild MR Moderate TR Est pulm pressure 53 mmHg Chest X-Ray 10/29/24 11:40 SINGLE VIEW CHEST CLINICAL HISTORY: Sepsis FINDINGS: 2 AP, portable, upright chest radiographs are compared to study dated 06/10/2024 and correlated with chest CT dated 11/17/2023. There are calcified hilar nodes. The cardiomediastinal heart is enlarged noting atherosclerotic calcification of the thoracic ureter. There is pulmonary vascular congestion. Emphysema and chronic interstitial thickening is similar to previous. Multifocal bilateral airspace opacities are seen throughout both lung. There is a small right pleural effusion. No pneumothorax is seen. The skeletal structures are osteopenic. The bony thorax is grossly intact. IMPRESSION: 1. Cardiomegaly and emphysema with evidence of congestive failure. 2. Multifocal bilateral airspace opacities could represent pulmonary edema and/or multifocal pneumonia. Clinical correlation will be required and radiographic follow-up to resolution is recommended 3. Right pleural effusion. ACT 112: Negative or not required by law. Electronically signed by: Pelon Bonilla M.D. 10/29/2024 11:52 AM Medications Administered Current Inpatient Medications Acetaminophen (Acetaminophen 325 Mg Tab) 650 mg PO Q4H PRN PRN Reason: Pain or Fever Stop: 11/28/24 16:50 Aspirin (Aspirin 81 Mg Chew) 81 mg PO DAILY [facility] Stop: 11/29/24 08:59 Last Admin: 10/30/24 08:39 Dose: 81 mg Atorvastatin Calcium (Atorvastatin 40 Mg Tab) 40 mg PO DAILY [facility] Stop: 11/29/24 08:59 Last Admin: 10/30/24 08:37 Dose: 40 mg Calcium Acetate (Calcium Acetate 667 Mg Cap/Tab) 667 mg PO TIDM [facility] Stop: 11/28/24 16:59 Last Admin: 10/30/24 11:10 Dose: 667 mg Fluticasone Furoate (Fluticasone Furoate 100mcg 14 Puffs/Inhaler) 1 puffs INH DAILY [facility] Stop: 11/29/24 08:59 Last Admin: 10/30/24 08:36 Dose: 1 puffs Heparin Sodium/Dextrose (Heparin 04214 Unit/500 Ml D5w) 25,000 units in 500 mls @ 22 mls/hr IV .[id number] [facility]; Protocol Stop: 11/28/24 22:29 Last Titration: 10/30/24 07:17 Dose: 1,100 units/hr, 22 mls/hr Magnesium Hydroxide (Magnesium Hydroxide Susp 30 Ml Udc) 30 ml PO Q12H PRN PRN Reason: Constipation Stop: 11/28/24 16:50 Metoprolol Succinate (Metoprolol Succ 50mg Ext Rel Tab) 50 mg PO DAILY [facility] Stop: 11/29/24 08:59 Last Admin: 10/30/24 08:37 Dose: 50 mg Miscellaneous (Remove Nicoderm Patch) 1 each N/A DAILY@0859 [facility] Stop: 11/29/24 08:58 Last Admin: 10/30/24 08:36 Dose: 1 each Nicotine (Nicotine 14 Mg/24 Hr Patch) 1 patch TD QAM [facility] Stop: 11/28/24 18:14 Last Admin: 10/30/24 08:37 Dose: 1 patch Polyethylene Glycol (Polyethylene (Miralax) 17 Gm Pack) 17 gm PO DAILY PRN PRN Reason: Constipation Stop: 11/28/24 16:50 Umeclidinium/Vilanterol (Umeclidinium/Vilanterol 62.5/25mcg 7 Puffs/Inhaler) 1 puffs INH DAILY [facility] Stop: 11/29/24 08:59 Last Admin: 10/30/24 08:36 Dose: 1 puffs Vitamin B Complex/Folic Acid (Nephrocaps) 1 cap PO DAILY [facility] Stop: 11/29/24 08:59 Last Admin: 10/30/24 08:37 Dose: 1 cap PG Care Time/CCT Total # of Minutes Spent Total Time Spent with Patient: Total time spent is greater than 50% in coordination of care (as documented) at patient's floor/unit and/or counseling patient: 60 minutes Coding Level of Care Code 66367 INT INP/OBS CARE 3/75MIN Diagnoses Acute heart failure with reduced ejection fraction (HFrEF, <= 40%) and combined systolic and diastolic dysfunction I50.41 Severe aortic stenosis I35.0 Acute respiratory failure with hypoxia and hypercapnia J96.01; J96.02 ESRD on hemodialysis N18.6; Z99.2
[2024-10-30] MEDS ORDERED: NON-FORMULARY MEDICATION (Fluticasone-Umeclidin-Vilanter [Trelegy Ellipta] 100-62.5-25 mcg INH SCH (09:00)
--- NOTE | 2024-10-30 12:38 | Hospitalist Progress Note ---
Date of Service October 30, 2024 Assessment & Plan (1) Acute respiratory failure with hypoxia and hypercapnia: (2) Lactic acidosis: (3) ESRD on hemodialysis: (4) Acute hyperkalemia: (5) Elevated troponin: (6) Severe aortic stenosis: Plan Patient is an 79y/o M with PMHx significant for ESRD on HD //Sat with history of hyperkalemia, history of advanced prostate cancer with malignant ureteral obstruction s/p indwelling right-sided percutaneous nephroureteral sten t placement in 2016 on indefinite androgen deprivation, history of bladder stones, severe aortic stenosis with reduced LVEF, HTN, recurrent pleural effusions previously requiring thoracentesis, COPD, anemia of chronic disease secondary to ESRD and tobacco use who presented to the ED with complaints of worsening SOB and cough. Found to be acutely hypoxic with sats in the low 80s per ED provider requiring BiPAP support. #Acute respiratory failure with hypoxia and hypercapnia requiring BiPAP support #Lactic acidosis-resolved -Etiology: resp failure 2/2 fluid retention ISO ESRD on HD, acute on chronic HFrEF with severe -There was concern for PNA on admission but no fever, leukocytosis, cough. he is already off O2. very unlikely to have PNA at this point -On room air this AM. He denies using home O2 other than at night Plan -Appreciate nephro input regarding volume management -Monitor resp status. -Observe off further abx. risks outweigh benefits -F/u on blood, urine cx -Home when ready #Elevated Trop -Hs trop elevated at 12k -ESRD would not explain this degree of elevation -NO chest pain -Suspect demand ischemia from hypoxia Plan -Appreciate cardio input -Continue heparin drip for now -Continue ASA, statin -Cardiac monitoring #ESRD on HD //Sat #Acute hyperkalemia -Treat with HD #H/o advanced prostate cancer with malignant ureteral obstruction s/p indwelling right-sided percutaneous nephroureteral catheter placement F/w Dr. Ramos as an OP Produces urine, empties percutaneous nephroureteral cath drainage bag #Prolonged QTc QTc 536ms on admitting EKG Avoid QTc-prolonging agents as able, monitor on repeat EKG in AM #Severe aortic stenosis with newly reduced LVEF as of 06/2024 F/w Nancy cards Previously admitted at [facility] 07/09/24-07/11/24 for evaluation of worsening SOB after he was found to be hypoxic and hypotensive during his dialysis session in [place] -Elevated troponin upon admission ([id number]) and started on IV heparin. N ephrology and cardiology consulted. -TTE revealed mildly reduced LVEF 40-45% with severely hypokinetic apical septal wall, severely elevated RV systolic pressures (71.8 mmHg) and severe aortic stenosis (SEAN 0.8 cm2). Patient opted for medical management and follow-up outpatient with cardiology. Discharged on supplemental oxygen: 4L with activity and 2L with rest. 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 (had weaned himself off of daytime O2 support) Newly reduced LVEF felt to be 2/2 progressive aortic stenosis per cards Pt scheduled to see valve clinic at [facility] on 12/18/24 Continue BB, ASA #Anemia of chronic disease ISO ESRD Hgb stable on admission Continue to monitor #HTN Borderline hypotensive on admission Will hold Norvasc for now pending BP trend with HD, resume as able #HLD Continue statin, ASA DVT Prophylaxis: SCDs/TEDs for now Disposition: Admit to PCU I spent a total of 32 minutes coordinating, documenting, and providing care for this patient excluding time spent in the performance of separately billed services or time spent by another provider/QHP. This included personally reviewing all current laboratories and imaging studies, medical reconciliation, outpatient chart review and discussion with specialists. Admission and Anticipated Discharge Date Admission Date: October 29, 2024 Subjective Feeling very well today. much better than yesterday. SOB has resolved. Patient denies F/C, CP, palpitations, SOB, dyspnea, abd pain, N/V/D Physical Exam Physical Exam: Vitals and labs reviewed General: Well appearing, NAD HEENT: EOMI, PERRLA Neck: Supple Cardiac: RRR systolic murmur Lungs: CTA no rhonchi wheezing or rales Abd: S NT ND BS positive : No shanks MSK: Full ROM. No obvious deformities Ext: trace b/l LE Edema Skin: Warm, Dry Neuro: AOx3 No focal deficits. Psych: Normal Mood Results & Data Results & Data Vital Signs (Past 12 Hours) Vital Signs Temp Pulse Pulse Resp BP Pulse Ox O2 Del Method 10/30/24 10:46 36.8 C 70 18 133/71 93 Room Air 10/30/24 08:00 Nasal Cannula 10/30/24 08:00 74 10/30/24 07:46 36.7 C 75 18 139/80 99 Nasal Cannula 10/30/24 03:53 72 18 117/74 98 Nasal Cannula O2 Flow Rate 10/30/24 10:46 10/30/24 08:00 3 10/30/24 08:00 10/30/24 07:46 4 10/30/24 03:53 4 Laboratory Results Abnormal lab results 10/29/24 10/29/24 10/29/24 Range/Units 12:27 12:33 18:19 RBC 4.04 L (4.70-6.10) M/uL Hgb 13.1 L (14.0-18.0) g/dl Hct 41.4 L (42.0-52.0) % MCV 102.5 H (80.0-100.0) fL MCHC 31.6 L (32.0-36.0) g/dL RDW Std Deviation 65.4 H (36.4-46.3) fL RDW Coeff of Stacy 17.6 H (11.5-14.5) % Neut # (Auto) 9.35 H (1.40-6.50) K/uL Lymph # (Auto) 0.49 L (1.20-3.40) K/uL PT (9.0-12.0) Seconds INR (0.9-1.1) VBG pH 7.21 L 7.43 H (7.36-7.41) VBG pCO2 69 H (38-50) mmHg Sodium (136-145) mmol/L POC Potassium 5.4 H (3.3-5.0) mmol/L Potassium 5.5 H (3.5-5.1) mmol/L Chloride 97 L (98-107) mmol/L POC Total CO2 23 L (24-31) mmol/L Anion Gap 18 H (3-11) POC BUN 48 H (7-18) mg/dl BUN 50 H (6-23) mg/dl Creatinine 9.14 H* (0.6-1.4) mg/dl POC Creatinine 8.7 H* (0.6-1.3) mg/dl BUN/Creatinine Ratio 5.5 L (10-20) Glucose 200 H (70-99(Fasting)) mg/dl POC Glucose (other) 196 H (70-99) mg/dl Lactate 5.9 H* (0.4-2.0) mmol/L POC Ioniz Calcium Leia 1.11 L (1.12-1.32) mmol/l AST 40 H (13-39) U/L Troponin I High Sens 268.6 H* 8569.6 H* D (0-20) pg/ml Albumin (3.4-5.0) gm/dl Procalcitonin 0.78 H (0-0.5) ng/ml Urine RBC (0-2) /hpf Urine WBC (0-5) /hpf Urine Bacteria (None Seen) 10/29/24 10/29/24 10/29/24 Range/Units 22:35 22:38 Unknown RBC (4.70-6.10) M/uL Hgb (14.0-18.0) g/dl Hct (42.0-52.0) % MCV (80.0-100.0) fL MCHC (32.0-36.0) g/dL RDW Std Deviation (36.4-46.3) fL RDW Coeff of Stacy (11.5-14.5) % Neut # (Auto) (1.40-6.50) K/uL Lymph # (Auto) (1.20-3.40) K/uL PT 12.7 H (9.0-12.0) Seconds INR 1.2 H (0.9-1.1) VBG pH (7.36-7.41) VBG pCO2 (38-50) mmHg Sodium (136-145) mmol/L POC Potassium (3.3-5.0) mmol/L Potassium (3.5-5.1) mmol/L Chloride (98-107) mmol/L POC Total CO2 (24-31) mmol/L Anion Gap (3-11) POC BUN (7-18) mg/dl BUN (6-23) mg/dl Creatinine (0.6-1.4) mg/dl POC Creatinine (0.6-1.3) mg/dl BUN/Creatinine Ratio (10-20) Glucose (70-99(Fasting)) mg/dl POC Glucose (other) (70-99) mg/dl Lactate (0.4-2.0) mmol/L POC Ioniz Calcium Leia (1.12-1.32) mmol/l AST (13-39) U/L Troponin I High Sens 06837.9 H* D (0-20) pg/ml Albumin (3.4-5.0) gm/dl Procalcitonin (0-0.5) ng/ml Urine RBC 6-10 H (0-2) /hpf Urine WBC >50 H (0-5) /hpf Urine Bacteria 1+ H (None Seen) 10/30/24 10/30/24 10/30/24 Range/Units 01:31 03:05 05:58 RBC 2.99 L (4.70-6.10) M/uL Hgb 9.3 L D (14.0-18.0) g/dl Hct 29.5 L (42.0-52.0) % MCV (80.0-100.0) fL MCHC 31.5 L (32.0-36.0) g/dL RDW Std Deviation 62.4 H (36.4-46.3) fL RDW Coeff of Stacy 17.7 H (11.5-14.5) % Neut # (Auto) 8.91 H (1.40-6.50) K/uL Lymph # (Auto) 0.66 L (1.20-3.40) K/uL PT (9.0-12.0) Seconds INR (0.9-1.1) VBG pH (7.36-7.41) VBG pCO2 (38-50) mmHg Sodium 133 L (136-145) mmol/L POC Potassium (3.3-5.0) mmol/L Potassium (3.5-5.1) mmol/L Chloride (98-107) mmol/L POC Total CO2 (24-31) mmol/L Anion Gap (3-11) POC BUN (7-18) mg/dl BUN 39 H (6-23) mg/dl Creatinine 6.49 H* D (0.6-1.4) mg/dl POC Creatinine (0.6-1.3) mg/dl BUN/Creatinine Ratio 6.0 L (10-20) Glucose 145 H (70-99(Fasting)) mg/dl POC Glucose (other) (70-99) mg/dl Lactate (0.4-2.0) mmol/L POC Ioniz Calcium Leia (1.12-1.32) mmol/l AST 52 H (13-39) U/L Troponin I High Sens 23546.9 H* 09325.7 H* (0-20) pg/ml Albumin 3.2 L (3.4-5.0) gm/dl Procalcitonin (0-0.5) ng/ml Urine RBC (0-2) /hpf Urine WBC (0-5) /hpf Urine Bacteria (None Seen)
--- NOTE | 2024-10-30 12:48 | Electrocardiogram Report ---
Test Reason : Blood Pressure : */* mmHG Vent. Rate : 73 BPM Atrial Rate : 73 BPM P-R Int : 188 ms QRS Dur : 80 ms QT Int : 446 ms P-R-T Axes : 70 -33 128 degrees QTcB Int : 491 ms Normal sinus rhythm Possible Left atrial enlargement Left axis deviation Abnormal ECG When compared with ECG of 29-Oct-2024 11:41, ST less depressed in Lateral leads Confirmed by Kael Alfaro ([id number]) on 10/30/2024 12:48:02 PM Referred By: REFERRED SELF Confirmed By: Kael Alfaro
--- NOTE | 2024-10-30 12:56 | Electrocardiogram Report ---
Test Reason : Blood Pressure : */* mmHG Vent. Rate : 72 BPM Atrial Rate : 72 BPM P-R Int : 184 ms QRS Dur : 82 ms QT Int : 446 ms P-R-T Axes : 56 -39 134 degrees QTcB Int : 488 ms Normal sinus rhythm Left axis deviation Abnormal ECG When compared with ECG of 29-Oct-2024 22:44, (unconfirmed) No significant change was found Confirmed by Kael Alfaro ([id number]) on 10/30/2024 12:55:27 PM Referred By: REFERRED SELF Confirmed By: Kael Alfaro
[2024-10-30 15:18] LABS: ANTI-Xa, UFH(UnfractionatedHep 0.41 IU/ml (0.3-0.7)
--- NOTE | 2024-10-30 15:34 | Nephrology Progress Note ---
Date of Service October 30, 2024 Assessment & Plan (1) ESRD on hemodialysis: Plan: on TTS HD urgent HD 10/29 on his dialysis day to help stabilize breathing; marked volume overload on chest XR and therefore another tx today w/ 2L UF >cont phoslo 2 ac >cont renal vitamin >>continue toprol; hold amlodipine, torsemide for max BP on HD today >anemia w/ marked drop to 9.1 for ? reasons > recheck in AM > plan routine tx tomorrow and continue aggressive uf; no update on whether he has a bed yet but if no bed by tomorrow morning first thing will run him first thing in the morning. We can always in treatment a bit early if a bed becomes available in the morning. Explained this to patient and they are aware and appreciate the plan. (2) Acute respiratory failure with hypoxia and hypercapnia: Plan: multifactorial from HF (w/ severe ), ESRD, and COPD; improving -on ceftriaxone, doxycycline (3) History of insertion of nephrostomy tube: Plan: monitor OP (4) Acute on chronic heart failure with mildly reduced ejection fraction (HFmrEF, 41-49%): Plan: in setting of ESRD, severe >>UF as above (5) COPD exacerbation: Plan: per primary service Admission and Anticipated Discharge Date Admission Date: October 29, 2024 Subjective tolerated 2 L UF today; cardiology evaluated the patient today and suggests transfer to [facility] for urgent evaluation follow options to address severe AVR and NSTEMI. Patient tolerated extra dialysis treatment today per our discussion and plan: Had 1.96 L UF. Feels he is definitely breathing better. Did have a panic attack early/slight in the bathroom of his room today in the hospital. at bedside Review of Systems 2 Review of Systems: All systems reviewed & are unremarkable except as noted in Subjective Physical Exam 2 Constitutional: well developed, + cachectic, + frail appearing and cooperative; no acute distress (on O2 NC) Eyes: EOM intact bilaterally ENMT: Mouth: + dry oral mucous membranes Respiratory: + cough, + tachypneic and + prolonged ex piratory phase (Slight) Auscultation: + diminished lung sounds and + crackles Cardiovascular: Rate/Rhythm: regular rate and regular rhythm Extremities: + AV fistula; no edema Gastrointestinal (Abdomen): Inspection/Auscultation: normal bowel sounds and + abdominal surgical drain present (R nephrostomy) Percussion/Palpation: a bdomen soft; abdomen nontender Musculoskeletal: Extremities: strength 5/5 throughout Skin: no rashes, warm and dry Results & Data Vital Signs (Past 12 Hours) Vital Signs Temp Pulse Pulse Pulse Resp BP BP 10/30/24 15:11 36.8 C 74 147/81 H 10/30/24 14:30 70 143/85 H 10/30/24 14:00 70 146/80 H 10/30/24 13:59 64 10/30/24 13:30 69 121/94 10/30/24 13:00 64 137/78 10/30/24 12:30 66 135/77 10/30/24 12:17 60 121/96 10/30/24 12:09 36.8 C 69 10/30/24 10:46 36.8 C 70 18 133/71 10/30/24 08:00 10/30/24 08:00 74 10/30/24 07:46 36.7 C 75 18 139/80 10/30/24 03:53 72 18 117/74 Pulse Ox O2 Del Method O2 Flow Rate 10/30/24 15:11 10/30/24 14:30 10/30/24 14:00 10/30/24 13:59 10/30/24 13:30 10/30/24 13:00 10/30/24 12:30 10/30/24 12:17 10/30/24 12:09 10/30/24 10:46 93 Room Air 10/30/24 08:00 Nasal Cannula 3 10/30/24 08:00 10/30/24 07:46 99 Nasal Cannula 4 10/30/24 03:53 98 Nasal Cannula 4 Laboratory Results 10/30/24 03:05 10/30/24 03:05
[2024-10-30 19:51] VITALS: BP 137/71; PULSE 74; RESP 18; TEMP 97.9; O2SAT 96
[2024-10-30 21:43] LABS: ANTI-Xa, UFH(UnfractionatedHep 0.35 IU/ml (0.3-0.7)
--- NOTE | 2024-11-01 06:50 | Coding Query ---
elevated troponin/demand ischemia is most likely NSTEMI CODING QUERY To promote full compliance with coding requirements relating to patient care, provider participation is requested in all cases of braille coder uncertainty. Please assist us with the question(s) below: Coding Question(s): Elevated Troponin is documented in the record beginning on the H&P and there is documentation on the H&P of likely demand ischemia, and the Cardiology Consultation documents, "acute NSTEMI", and the 10/30 Nephrology Progress Note documents, "cardiology evaluated the patient today and suggests transfer to [facility] for urgent evaluation follow options to address severe AVR and NSTEMI", and the last Hospitalist Progress Note on 10/30 documents, " #Elevated Trop -Hs trop elevated at 12k -ESRD would not explain this degree of elevation -NO chest pain -Suspect demand ischemia from hypoxia". Please specify below, in your clinical opinion: ( ) elevated troponin/demand ischemia is most likely NSTEMI ( ) elevated troponin/demand ischemia only with NO NSTEMI, NSTEMI is Ruled-out Physician's Response(s): Thank you Grisel Cuello Principal Diagnosis: "that condition established after study, to be chiefly responsible for occasioning the admission of the patient to the hospital for care." Co-Existing Principal Diagnosis: "when two or more diagnoses equally meet the criteria for principal diagnosis as determined by the circumstances of admission, diagnostic work up, and/or therapy provided, and the Alphabetic Index, Tabular List, or another coding guideline does not provide sequencing direction, any one of the diagnoses may be sequenced first." "When the physician has documented what appears to be a current diagnosis in the body of the record, but has not included the diagnosis in the final diagnostic statement, the physician should be asked whether the diagnosis should be added." (Source [facility] 2 QTR90. p3-4) YOLANDAD
--- NOTE | 2024-11-03 15:56 | Discharge Summary ---
Discharge Summary Date of Service November 03, 2024 Principal Dx & Hospital Course #1 = Principal Diagnosis (1) Acute respiratory failure with hypoxia and hypercapnia: (2) Lactic acidosis: (3) ESRD on hemodialysis: (4) Acute hyperkalemia: (5) Elevated troponin: (6) Severe aortic stenosis: Plan Patient is an 79y/o M with PMHx significant for ESRD on HD es/Th/Sat with history of hyperkalemia, history of advanced prostate cancer with malignant ureteral obstruction s/p indwelling right-sided percutaneous nephroureteral stent placement in 2016 on indefinite androgen deprivation, history of bladder stones, severe aortic stenosis with reduced LVEF, HTN, recurrent pleural effusions previously requiring thoracentesis, COPD, anemia of chronic disease secondary to ESRD and tobacco use who presented to the ED with complaints of worsening SOB and cough. Found to be acutely hypoxic with sats in the low 80s per ED provider requiring BiPAP support. Cardiology evaluated patient on day of admission and recommended transfer to [facility] for further care. patient agreeable and was transferred. #Acute respiratory failure with hypoxia and hypercapnia requiring BiPAP support #Lactic acidosis-resolved -Etiology: resp failure 2/2 fluid retention ISO ESRD on HD, acute on chronic HFrEF with severe -There was concern for PNA on admission but no fever, leukocytosis, cough. he is already off O2. very unlikely to have PNA at this point -On room air this AM. He denies using home O2 other than at night Plan -Appreciate nephro input regarding volume management -Monitor resp status. -Observe off further abx. risks outweigh benefits -F/u on blood, urine cx -Home when ready #Elevated Trop -Hs trop elevated at 12k -ESRD would not explain this degree of elevation -NO chest pain -Suspect demand ischemia from hypoxia Plan -Appreciate cardio input -Continue heparin drip for now -Continue ASA, statin -Cardiac monitoring #ESRD on HD es/Th/Sat #Acute hyperkalemia -Treat with HD #H/o advanced prostate cancer with malignant ureteral obstruction s/p indwelling right-sided percutaneous nephroureteral catheter placement F/w Dr. Ramos as an OP Produces urine, empties percutaneous nephroureteral cath drainage bag #Prolonged QTc QTc 536ms on admitting EKG Avoid QTc-prolonging agents as able, monitor on repeat EKG in AM #Severe aortic stenosis with newly reduced LVEF as of 06/2024 F/w Nancy mckinnon Previously admitted at [facility] 07/09/24-07/11/24 for evaluation of worsening SOB after he was found to be hypoxic and hypotensive during his dialysis session in [place] -Elevated troponin upon admission ([id number]) and started on IV heparin. Nephrology and cardiology consulted. -TTE revealed mildly reduced LVEF 40-45% with severely hypokinetic apical septal wall, severely elevated RV systolic pressures (71.8 mmHg) and severe aortic stenosis (SEAN 0.8 cm2). Patient opted for medical management and follow-up outpatient with cardiology. Discharged on supplemental oxygen: 4L with activity and 2L with rest. Pt only on 2L NC HS SPARE FIXER (had weaned himself off of daytime O2 support) Newly reduced LVEF felt to be 2/2 progressive aortic stenosis per cards Pt scheduled to see valve clinic at [facility] on 12/18/24 Continue BB, ASA #Anemia of chronic disease ISO ESRD Hgb stable on admission Continue to monitor #HTN Borderline hypotensive on admission Will hold Norvasc for now pending BP trend with HD, resume as able #HLD Continue statin, ASA DVT Prophylaxis: SCDs/TEDs for now Disposition: Admit to PCU I spent a total of 32 minutes coordinating, documenting, and providing care for this patient excluding time spent in the performance of separately billed services or time spent by another provider/QHP. This included personally reviewing all current laboratories and imaging studies, medical reconciliation, outpatient chart review and discussion with specialists. Notes For Next Care Provider Medication Changes From Visit none Admission HPI Per Admitting Provider Patient is an 79y/o M with PMHx significant for ESRD on HD //Mon with history of hyperkalemia, history of advanced prostate cancer with malignant ureteral obstruction s/p indwelling right-sided percutaneous nephroureteral stent placement in 2015 on indefinite androgen deprivation, history of bladder stones, severe aortic stenosis with reduced LVEF, HTN, recurrent pleural effusio ns previously requiring thoracentesis, prior abnormal EKG changes including ST-T abnormalities with TWI in lateral leads possibly secondary to progressive aortic valve stenosis, COPD, anemia of chronic disease secondary to ESRD and tobacco use who presented to the ED with complaints of worsening SOB and cough. History obtained from the patient, patient's family at bedside, discussion with ED provi sloan and associated chart review. Previously admitted at [facility] 07/09/24-07/11/24 for evaluation of worsening SOB after he was found to be hypoxic and hypotensive during his dialysis session in [place]. Elevated troponin upon admission ([id number]) and started on IV heparin. Nephrology and cardiology consulted. TTE revealed mildly reduced LVEF 40-45% with severely hypokinetic apical septal wall, severely elevated RV systolic pressures (71.8 mmHg) and severe aortic stenosis (SEAN 0.8 cm2). Patient opted for medical management and follow-up outpatient with cardiology. Discharged on supplemental oxygen: 4L with activity and 2L with rest. Patient presenting today with worsening SOB over the past week requiring 3L NC with rest and 4L NC with exertion. Prior to this, patient had been weaned down to 2L NC HS (with occasional use of 1-2L with exertion) from his previous oxygen requirements back in June. Also endorsing a productive cough of clear, and sometimes cloudy white, phlegm. No reported fevers, chills or myalgias. Denies any chest pain, lightheadedness/dizziness, syncope or recent falls. No recent known sick contacts. Denies any worsening BLE edema. Has dialysis sessions for ESRD on Monday, and Saturdays. Endorses compliance with this. Smokes 2-3 cigarettes/day, using a nicotine patch to "cut back" with intention of eventually quitting. Rare alcohol use. Reportedly hypoxic down to ~85% on RA at outpatient dialysis facility today per patient's . On BiPAP in ED at the time of my evaluation. Appears comfortable, patient states breathing feels much improved. Discharge Exam see progress note. Updated Medication List Medication Instructions Recorded Confirmed Type albuterol sulfate 90 mcg/actuation 2 puff inhalation Q4H PRN 11/18/23 10/29/24 History aerosol inhaler (Ventolin HFA) Shortness Of Breath Or Wheezing lorazepam 0.5 mg tablet 0.5 mg PO TID PRN Anxiety 11/18/23 10/29/24 History aspirin 81 mg chewable tablet 81 mg PO DAILY 10/29/24 10/29/24 History atorvastatin 40 mg tablet 40 mg PO DAILY 10/29/24 10/29/24 History calcium acetate 667 mg tablet See Rx Instructions .Route .COMPLEX 10/29/24 10/29/24 History fluticasone fur. 100 mcg-umeclid 1 inh inhalation QAM 10/29/24 10/29/24 History 62.5 mcg-vilant 25 mcg inhalat.powder (Trelegy Ellipta) metoprolol succinate 50 mg 50 mg PO DAILY 10/29/24 10/29/24 History tablet,extended release 24 hr vitamin B comp no.3-folic acid 1 1 tab PO DAILY 10/29/24 10/29/24 History mg-vit C 60 mg-biotin 300 mcg tablet (Gill-Farzana Rx) Hospital Stay Data Consultations 10/29/24 12:58 ED Decision to Admit Stat 10/29/24 16:51 Consult Nephrology Routine 10/30/24 08:00 Consult Cardiology Routine 10/30/24 19:35 Burn CD for patient Stat Pending Results Patient Have Any Pending Studies at Discharge: Yes Discharge Instructions Given to Patient (Per Discharging Provider) per [place] Total Time Total Time Spent Total Time Spent (In Minutes): 50
== END 2024-10-30 21:15 | disposition short-term general hospital (02) | DRG 280 ==
LOC: ED 11:27 → EDINP 14:08 → SUATTDRO 14:08 → 2S 15:25